=== PATIENT | female | born 1970 | race Caucasian/White ===

== ENCOUNTER 2022-12-11 07:34 | Outpatient (OUT) | payer OTHER, SELFPAY ==
--- NOTE | 2022-12-11 07:39 | CT_ITS ---
[address] [address] Patient Name: LEXI LEWIS MRN: [id number] date: 1970 Sex: F Assigned Patient Location: CT Current Patient Location: CT Accession/Order Number: [id number] Exam Date: 12/11/2022 07:55 Report Date: 12/11/2022 09:05 At the request of: RO OSCAR Procedure: CT angio chest EXAMINATION: CT angio chest HISTORY: Atypical Chest Pain R07.89, Dyspnea On Exertion R06.09 , elevated d-dimer COMPARISON: No relevant comparison available. TECHNIQUE: Multi-planar CT images were created with IV contrast. Axial, Coronal, and Sagittal images. Dose reduction techniques were achieved by using automated exposure control and/or adjustment of mA and/or kV according to patient size and/or use of iterative reconstruction technique. 3-D reconstruction was performed on a separate workstation. FINDINGS: VASCULATURE: No pulmonary embolism or abnormal opacity. LUNGS: No visible pulmonary disease. PLEURA: No mass, effusion, or pneumothorax. TAVO: No mass or adenopathy. MEDIASTINUM: No mass or adenopathy. CARDIAC: No enlargement, pericardial effusion, or pericardial thickening. AORTA: No aneurysm or dissection. CHEST WALL: No mass or axillary adenopathy. BONES: No bone lesion or fracture. LIMITED ABDOMEN: No suspicious findings. Limited images of the upper abdomen. OTHER: Negative. IMPRESSION: 1. No pulmonary embolism. 2. No pulmonary infiltrates, pleural effusion, or pneumothorax. 3. No acute or suspicious findings to account for patient's symptoms. Electronically authenticated by: KHUSHBU CID Date: 12/11/2022 09:05
== END 2022-12-11 07:35 ==
LOC: CT 07:35
PROVIDERS: Visit Provider Nurse Practitioner
DX: R07.89 Other chest pain (principal); R06.09 Other forms of dyspnea; R79.89 Other specified abnormal findings of blood chemistry
CPT/HCPCS: 71275; Q9967

== ENCOUNTER 2022-12-21 08:32 | Outpatient (OUT) | payer OTHER, SELFPAY ==
--- NOTE | 2022-12-21 08:15 | NM_ITS ---
Patient: LEXI LEWIS Exam Date: 12/21/2022 : 1970 Gender:F Ordering : RO OSCAR Admission #: [id number] Family : Order #: [id number] CLICK HERE TO VIEW EXAM RADIOLOGY REPORT PROCEDURE: NM MARIBEL PERF SPECT REST STR COMPARISON: None. INDICATIONS: Chest pain TECHNIQUE: Exam Description: Stress/Rest one day protocol gated SPECT Rest Imagin.9 mCi Tc-99m Cardiolite IV on 12/21/2022 Stress Imaging 30.5 mCi Tc-99m Cardiolite IV on 12/21/2022 Exercise Protocol: 0.4 mg Lexiscan given IV Heart Rate (bpm): Rest: 78 Max: 117 PMHR: 70 Blood Pressure: Rest: 122/80 Max: 156/78 Symptoms: Rest and peak stress ECG findings were pending and the exercise portion of the study was pending per attending physician Dr. Ayala . For more details please see separate cardiac stress test report. FINDINGS: QUALITY OF STUDY: Good. PERFUSION DEFECT: LOCATION: Mid-anterior. Mid-inferolateral. Mid-anterolateral. Apical lateral. SIZE: Medium (3-4 segments). SEVERITY: Moderate. TYPE: Reversible. WALL MOTION: Normal. LV SIZE: Normal. 94 mL. TID / TCD: None; 0.7 LVEF: Normal. Calculated EF 70%. SUMMARY: Myocardial perfusion imaging study has ABNORMAL findings. CONCLUSION: 1. Area of suspected reversible ischemia lateral wall, primarily circumflex distribution 2. Pending exercise test Dictated by: David Santa MD on 12/21/2022 at 14:20 Approved by: David Santa MD on 12/21/2022 at 14:30
[2022-12-21] MEDS: REGADENOSON 0.4 MG/5 ML SYRINGE IV (10:27)
--- NOTE | 2022-12-21 11:29 | CA_ITS ---
Patient: LEXI LEWIS Exam Date: 12/21/2022 : 1970 Gender:F Ordering : RO OSCAR Admission #: [id number] Family : Order #: [id number] CLICK HERE TO VIEW EXAM ECHOCARDIOGRAM REPORT PROCEDURE: CA ECHO DOPPLER COMPLETE INDICATIONS: HOFFMAN, CP, HTN COMPARISON: None. DESCRIPTION: COMPLETE ECHOCARDIOGRAM Real-time transthoracic echocardiography with 2D, M-mode, spectral and color flow Doppler performed. QUALITY: Technical quality was good. LEFT VENTRICLE: Normal chamber size. Mild concentric left ventricular hypertrophy. LV EF: Global left ventricular systolic function is normal. Calculated left ventricular ejection fraction is 59% DIASTOLIC: Normal diastolic function. ATRIAL SEPTUM: Inadequately seen. LEFT ATRIUM: Normal chamber size. RIGHT ATRIUM: Normal chamber size. RIGHT VENTRICLE: Normal chamber size. Normal right ventricular systolic function. TRICUSPID VALVE: Normal mobility and thickness. No stenosis with trivial regurgitation. No evidence of pulmonary hypertension. RVSP 14mmHg MITRAL VALVE: Normal mobility and thickness. No evidence of mitral valve stenosis. There is no mitral annular calcification. Mild mitral regurgitation. AORTIC VALVE: Normal trileaflet appearance. Thickened aortic valve. Normal leaflet mobility. No evidence of aortic valve stenosis. Trivial aortic regurgitation. AORTIC ROOT: Normal diameter and appearance. PULMONIC VALVE: Normal thickness and mobility. No stenosis. Trivial regurgitation. PERICARDIUM: Anterior free space; trivial effusion versus fat pad. IVC: Collapses with inspirations. Normal size. CONCLUSION: Global left ventricular systolic function is normal; visually estimated ejection fraction is 55 to 60%. Mildly increased left ventricular wall thickness. Right ventricle is normal in size and systolic function. Mild mitral regurgitation. Anterior free space; trivial effusion versus fat pad. Adult Echocardiography Procedure Report Left Ventricle LVEDD (3.7 - 5.6 cm): 4.79 cm LVESD (2.2 - 4.0 cm): 3.30 cm LVIVS thickness (0.6 - 1.2 cm): 1.12 cm LVPW thickness (0.5 - 1.0 cm): 1.10 cm e': 0.09 m/s E - e': 9.56 LVOT Max Gradient: 4.32 mm[Hg], 3.70 mm[Hg] LVOT Area (cm2): 1.00 m/s Peak Velocity (LVOT): 1.04 m/s, 0.96 m/s Mean Velocity (LVOT): 0.70 m/s LVOT Diameter 2.14 cm Left Ventricular Ejection Fraction: 59.09 % Left Atrium LA Volume Index (2D A2C): 30.27 ml/m2 Left Atrium Systolic Dimension: 3.58 cm Mitral Valve MV E to A Ratio: 1.12 Mitral Valve A-Wave Peak Velocity: 0.77 m/s Mitral Valve E-Wave Peak Velocity: 0.86 m/s Right Ventricle RV Internal Diastolic Dimension: 3.50 cm Aorta AO Root Diam: 3.42 cm Ascending Ao Diam: 3.28 cm Aortic Valve AoV Area (Peak Leo): 3.10 cm2, 3.32 cm2, 2.89 cm2 AoV Area (VTI): 3.20 cm2, 3.46 cm2, 2.94 cm2 Deceleration Camp: 2.61 m/s2 Pressure Half-Time: 440.40 ms Peak Velocity(Antegrade Flow): 1.12 m/s, 1.19 m/s Peak Gradient(Antegrade Flow): 5.02 mm[Hg], 5.69 mm[Hg] Mean Velocity(Antegrade Flow): 0.73 m/s, 0.72 m/s Mean Gradient(Antegrade Flow): 2.53 mm[Hg], 2.46 mm[Hg] Velocity Time Integral: 24.89 cm, 23.77 cm Tricuspid Valve Peak Velocity (Regurgitant Flow): 1.98 m/s, 1.69 m/s Pulmonic Valve Mean Gradient: 1.41 mm[Hg], 1.27 mm[Hg] Mean Velocity: 0.56 m/s, 0.53 m/s Peak Velocity: 0.80 m/s Peak Gradient: 2.62 mm[Hg], 2.44 mm[Hg] Right Atrium Right Atrium Systolic Pressure: 32.69 ml, 32.69 ml Dictated by: Sara Mcclendon M.D. on 12/23/2022 at 16:08 Approved by: Sara Mcclendon M.D. on 12/23/2022 at 16:11
--- NOTE | 2022-12-22 15:05 | PCN_ITS ---
CARDIAC STRESS TEST Requesting Physician:? TRAY Snider-Nikko Procedure Date:? REASON FOR TEST:? Chest pain. Patient presented for Lexiscan stress test. At baseline the heart rate was noted to be 78 beats per minute with a blood pressure 153/78 mm/Hg.? With Lexiscan infusion, the patient was noted to have peak heart rate of 117 with a blood pressure 134/72 mm/Hg.? No symptoms were reported during the test.? No arrhythmias were seen during the test.? The study was initially started as a stress test which was switched Lexiscan due to back pain that was reported at 3 minutes.? At baseline, the EKG showed sinus rhythm with normal intervals.? With Stage 1, the heart rate improved to 112 beats per minute and in Stage 3, the heart rate was 100 beats per minute with no evidence of ischemia.? At Stage 3, it was changed to the Lexiscan.? With infusion of Lexiscan, no ischemic changes were noted.? No arrhythmias were seen.? INTERPRETATION: 1.? No evidence of ischemia noted on EKG portion of stress test. 2.? Radiological report to be dictated separately.? [facility]
== END 2022-12-21 08:33 ==
LOC: NM 08:32
PROVIDERS: Visit Provider Nurse Practitioner
DX: I10 Essential (primary) hypertension (principal); R07.89 Other chest pain; R06.09 Other forms of dyspnea; R79.89 Other specified abnormal findings of blood chemistry
CPT/HCPCS: 78452; 93017; 93306; A9500; J2785

== ENCOUNTER 2023-01-21 12:26 | Outpatient (OUT) | payer OTHER, SELFPAY ==
[2023-01-21 12:43] LABS: Basophils Percent Auto 0.5 % (0.2-2.0); Hematocrit 44.5 % (36.0-48.0); Hemoglobin 15.1 g/dL (12.0-16.0); Immature Granulocytes Abs Auto 0.02 10^3/uL (0.00-0.03); Immature Granulocytes Pct Auto 0.3 % (0.0-0.5); Lymphocytes Absolute Auto 2.4 10^3/uL (1.2-3.8); Lymphocytes Percent Auto 31.6 % (20.5-60.0); Mean Corpuscular HGB Conc 33.9 g/dL (29.9-35.2); Mean Corpuscular Hemoglobin 29.8 pg (26.7-34.0); Mean Corpuscular Volume 87.8 fL (81.0-99.0); Mean Platelet Volume 9.9 fL (9.5-13.5); Monocytes Absolute Auto 0.4 10^3/uL (0.3-0.8); Monocytes Percent Auto 5.6 % (1.7-12.0); Neutrophils Absolute Auto 4.7 10^3/uL (1.4-6.5); Platelet Count 237 10^3/uL (150-450); Red Blood Count 5.07 10^6/uL (4.20-5.40); Red Cell Distribution Width 13.4 % (11.0-15.0); White Blood Count 7.7 10^3/uL (4.0-11.0)
[2023-01-21 12:57] LABS: Anion Gap 13.1; BUN Creatinine Ratio 11.1; Carbon Dioxide 26.2 mmol/L (21.0-32.0); Chloride 105 mmol/L (98-107); Estimated GFR (African America >60 (>=60); Estimated GFR (Non-African Ame 53 (>=60); Glucose 123 mg/dL (74-106); Potassium 4.3 mmol/L (3.5-5.1); Sodium 140 mmol/L (136-145)
== END 2023-01-21 12:27 | disposition home or self-care (01) ==
LOC: LAB 12:27
PROVIDERS: Visit Provider Nurse Practitioner
DX: I20.0 Unstable angina (principal); R06.09 Other forms of dyspnea
CPT/HCPCS: 36415; 80048; 85025

== ENCOUNTER 2023-04-07 08:54 | Outpatient (OUT) | payer OTHER, SELFPAY ==
[2023-04-07 09:52] LABS: Alanine Aminotransferase 44 U/L (14-59); Albumin Level 3.5 g/dL (3.4-5.0); Alkaline Phosphatase 163 U/L (46-116); Aspartate Amino Transferase 20 U/L (15-37); Bilirubin Direct 0.1 mg/dL (0.0-0.2); Bilirubin Total 0.2 mg/dL (0.2-1.0); Chol HDL Ratio 4.1; Cholesterol 214 mg/dL (<=200); Globulin 3.6 g/dL; HDL Cholesterol 52 mg/dL (40-60); Total Protein 7.1 g/dL (6.4-8.2); Triglycerides 148 mg/dL (<=150); VLDL CHOLESTEROL 29.6 mg/dL
== END 2023-04-07 08:55 | disposition home or self-care (01) ==
PROVIDERS: Visit Provider Nurse Practitioner
DX: E78.2 Mixed hyperlipidemia (principal)
CPT/HCPCS: 36415; 80061; 80076

== ENCOUNTER 2023-08-26 08:00 | Outpatient (OUT) | payer OTHER, SELFPAY ==
--- NOTE | 2023-08-26 08:49 | P.CN_ITS ---
Consult Note: HPI Data of Consult Patient: new to practice Requesting Physician: Stephanie Mike NP Primary Care Provider: Non-Staff Physician, MD Consult Narrative Reason for consult: establish chronic low back and right hip Narrative: Lizbeth Garcia a pleasant 53 year old female presents for evaluation of chronic pain. Patient has a hx of cervical RFAs with Dr Thornton and tailbone RFAs with Dr Caballero. Hx of cervical fusion at C4-7 with plate at 6-7. Lumbar spine surgery with lumbosacral fusion per pt L5-Sacral. Patient reporting pain today 8/10 throbbing stab pain in right low back and hip. Patient has a hx of chronic neck pain which is also increasing to 10/10 at times. Pain increased with standing/walking, housework, bending, stairs, activity, pain decreased with sitting and lying. Patient finds mild benefit from ibuprofen, celebrex. Patient failed PT in the past, active in HEP >6 weeks without benefit. Patient denies numbness tingling weakness of legs. Denies loss of bowel/bladder. cc:: CC: Stephanie Mike NP Review of Systems ROS Status of ROS 10 or more systems reviewed and unremark able except as noted in history and below Meds Home Medications and Allergies Home Medications Medication Instructions Recorded Confirmed Type B-complex with vitamin C 1 tab PO DAILY 08/26/23 08/26/23 History acetaminophen 500 mg tablet 1,500 mg PO DAILY PRN pain 08/26/23 08/26/23 History (Tylenol Extra Strength) amlodipine 5 mg tablet 5 mg PO DAILY 08/26/23 08/26/23 History aspirin 81 mg capsule 81 mg PO DAILY 08/26/23 08/26/23 History atorvastatin 80 mg tablet 80 mg PO DAILY 08/26/23 08/26/23 History celecoxib 400 mg capsule (Celebrex) 400 mg PO BID 08/26/23 08/26/23 History cholecalciferol (vitamin D3) 50 50 mcg PO DAILY 08/26/23 08/26/23 History mcg (2,000 unit) capsule clonazepam 0.5 mg tablet 0.5 mg PO BID 08/26/23 08/26/23 History cyclobenzaprine 10 mg tablet 10 mg PO BID 08/26/23 08/26/23 History desvenlafaxine succinate 100 mg 100 mg PO DAILY 08/26/23 08/26/23 History tablet,extended release 24 hr (Pristiq) ezetimibe 10 mg tablet 10 mg PO DAILY 08/26/23 08/26/23 History lamotrigine 300 mg tablet,extended 300 mg PO DAILY 08/26/23 08/26/23 History release 24 hr magnesium glycinate PO 08/26/23 History metoprolol succinate 25 mg 25 mg PO DAILY 08/26/23 08/26/23 History tablet,extended release 24 hr pantoprazole 40 mg tablet,delayed 40 mg PO DAILY 08/26/23 08/26/23 History release quetiapine 200 mg tablet 200 mg PO DAILY 08/26/23 08/26/23 History Allergies Allergy/AdvReac Type Severity Reaction Status Date / Time ibuprofen AdvReac Mild Verified 08/26/23 08:26 tramadol AdvReac Mild Verified 08/26/23 08:26 Exam Constitutional Documenting provider has reviewed patient's vital signs: yes Common normals: no apparent distress, oriented x3, healthy appearing, alert and well nourished General appearance: cooperative HENMT Common normals: normocephalic, hearing grossly normal bilaterally and moist oral mucous membranes Head and scalp: normocephalic Eye Common normals: PERRL Pupil: PERRL Neck & C-Spine Common normals: full ROM General: normal visual inspection Cervical spine: cervical ROM abnormal and pain with cervical ROM Other: axial pain without radiculopathy Chest Common normals: inspection of chest normal Respiratory Common normals: normal respiratory effort, no retractions and no use of accessory muscles Back & Pelvis Lumbar spine/lower back: ROM limited and pain with ROM Sacroiliac joints: SI joint(s) abnormal Other: right SIJ pain over PSIS, positive fabers fadirs gaenslens and thigh thrust. negative for radiculopathy. sensation intact BLE, strength 5/5 in BLE Extremity Common normals: normal to inspection and full ROM Neuro Common normals: oriented x3, CN's II-XII intact bilaterally, moves all extremities, no focal motor deficits, no sensory deficits noted, deep tendon reflexes 2+ bilaterally and gait normal Sensorium/orientation: alert Motor exam: strength 5/5 throughout and no movement abnormalities noted Psych Common normals: mental status grossly normal, thought process normal, cooperative, affect normal, speech normal and activity/motor behavior normal Speech: normal speech Thought process: normal thought process Results Additional Findings Additional findings: I have checked an [place] report on this patient today and there are no aberrancies noted in the prescribing history.?? A drug screen was completed and reviewed within the last year, and if there has not been a drug screen completed we ordered one today to monitor higher risk, state monitored pain medication use. As part of providing excellent, safe, comprehensive care, the following was completed at our patient's visit: 1. A medication reconciliation and review to ensure accurate knowledge of current/active medications, including asking our patients to inform us about any [id number] medications or herbal remedies/nutritional supplements/alternative remedies. 2. A review to specifically ensure our patients have had annual screening for: elevated body mass index (BMI), tobacco use, screening for depression, and screening for unhealthy alcohol use. When screening is concerning, patients are provided with education and the specific recommendation to discuss the concerning health issue and treatment options with their primary care provider. Assessment and Plan Assessment and Plan (1) Failed back syndrome: (2) Cervical spondylosis: (3) Chronic pain syndrome: (4) Encounter for medication monitoring: (5) Chronic prescription benzodiazepine use: (6) Sacroiliitis: Plan [employer] reviewed and signed UDS today, NNCP hx of chronic benzodiazepine use update xray imaging of cervical spine, lumbar spine, and SIJ plan for right SIJ injection under fluoroscopy. risks vs benefits discussed continue current medications as tolerated continue HEP as tolerated f/u 2 weeks after injection +
== END 2023-08-26 08:01 | disposition home or self-care (01) ==
LOC: PM 08:01
PROVIDERS: Visit Provider Nurse Practitioner
DX: M96.1 Postlaminectomy syndrome, not elsewhere classified (principal); M47.812 Spondylosis without myelopathy or radiculopathy, cervical region; G89.4 Chronic pain syndrome; Z51.81 Encounter for therapeutic drug level monitoring; M46.1 Sacroiliitis, not elsewhere classified; Z79.899 Other long term (current) drug therapy
CPT/HCPCS: G0463

== ENCOUNTER 2023-08-26 09:15 | Outpatient (OUT) | payer OTHER, SELFPAY ==
--- NOTE | 2023-08-26 09:20 | XR_ITS ---
The [address] [address] Patient Name: LEXI LEWIS MRN: [id number] date: 1970 Sex: F Assigned Patient Location: [facility] Current Patient Location: [facility] Accession/Order Number: [id number] Exam Date: 08/26/2023 09:25 Report Date: 08/27/2023 14:56 At the request of: KANNAN FRIEDMAN Procedure: XR cervical spine 5V EXAMINATION: XR cervical spine 5V HISTORY: cervical spondylosis ; chronic neck pain radiating into right arm COMPARISON: XR C-spine 05/07/2021 FINDINGS: BONES: Straightening of normal lordotic curvature. Mechanical fusion C5-6 via anterior plate and screws; no hardware fracture loosening. No bone fracture or spondylolisthesis. Multilevel mild degenerative facet arthropathy. DISC SPACES: Moderate-marked narrowing C5-C6; unchanged. PARASPINOUS: Negative. No paraspinous abnormality is seen. OTHER: Negative. XR/XR cervical spine 5V IMPRESSION: 1. No appreciable acute abnormality. 2. Stable surgical changes and moderate- marked degenerative disc disease C5-6. Electronically authenticated by: KHUSHBU CID Date: 08/27/2023 14:56
--- NOTE | 2023-08-26 09:21 | XR_ITS ---
The [address] [address] Patient Name: LEXI LEWIS MRN: [id number] date: 1970 Sex: F Assigned Patient Location: [facility] Current Patient Location: [facility] Accession/Order Number: [id number] Exam Date: 08/26/2023 09:25 Report Date: 08/27/2023 14:59 At the request of: KANNAN FRIEDMAN Procedure: XR lumbar spine 6V w bending EXAMINATION: XR lumbar spine 6V w bending HISTORY: lumbar spondylosis ; chronic lumbar pain radiating into right leg COMPARISON: XR L-spine 05/16/2021 FINDINGS: BONES: Minimal anterior listhesis of L5 on S1 with prior posterior mechanical stabilization; no hardware fracture loosening. No change in alignment during flexion and extension. Moderate degenerative facet arthropathy L3-4 through L5-S1. DISC SPACES: Mild narrowing L4-5. Intervertebral disc spacer L5-S1 with mild narrowing. PARASPINOUS: Negative. No paraspinous abnormality is seen. OTHER: Negative. XR/XR lumbar spine 6V w bending IMPRESSION: 1. No appreciable acute abnormality. 2. Stable surgical changes and degenerative changes. Electronically authenticated by: KHUSHBU CID Date: 08/27/2023 14:59
--- NOTE | 2023-08-26 09:22 | XR_ITS ---
The [address] [address] Patient Name: LEXI LEWIS MRN: [id number] date: 1970 Sex: F Assigned Patient Location: [facility] Current Patient Location: [facility] Accession/Order Number: [id number] Exam Date: 08/26/2023 09:25 Report Date: 08/26/2023 18:27 At the request of: KANNAN FRIEDMAN Procedure: XR sacroiliac joint JENNIFER EXAM: XR sacroiliac joint JENNIFER HISTORY: sacroiliac joint pain COMPARISON: None. TECHNIQUE: AP and oblique views of the sacroiliac joints were obtained. FINDINGS/IMPRESSION: Normal bony alignment and joint spaces are preserved without evidence of acute fracture or subluxation. No significant degenerative changes or erosive changes are seen. Postoperative changes are seen at L5-S1. Electronically authenticated by: DEEJAY DO Date: 08/26/2023 18:27
== END 2023-08-26 09:16 | disposition home or self-care (01) ==
LOC: RAD 09:16
PROVIDERS: Visit Provider Nurse Practitioner
DX: M47.812 Spondylosis without myelopathy or radiculopathy, cervical region (principal); M47.816 Spondylosis without myelopathy or radiculopathy, lumbar region; M53.3 Sacrococcygeal disorders, not elsewhere classified; M96.1 Postlaminectomy syndrome, not elsewhere classified; G89.4 Chronic pain syndrome; Z51.81 Encounter for therapeutic drug level monitoring; M46.1 Sacroiliitis, not elsewhere classified; Z79.899 Other long term (current) drug therapy
CPT/HCPCS: 72050; 72114; 72202; G0463

== ENCOUNTER 2023-09-20 09:57 | Day surgery (SDC) | payer OTHER, SELFPAY ==
--- OUTSIDE RECORDS SUMMARY | 2023-09-20 10:02 | XMS_ITS | CCD ---
Author Name Unknown Address [address] [place] [address] Organization [facility] Care Team Providers Care Pipe Recovery Specialist Name Role Phone ZAIRE, CRISTOBAL F Primary Care Unavailable FELICIA, FEMI H. Attending Unavailable FELICIA, FEMI H. Referring Unavailable FELICIA, FEMI H. Referring Unavailable FELICIA, FEMI H. Admitting Unavailable ZAIRE, CRISTOBAL F Primary Care Unavailable FELICIA, FEMI H. Attending Unavailable FELICIA, FEMI H. Admitting Unavailable ZAIRE, CRISTOBAL F Primary Care Unavailable FELICIA, FEMI H. Attending Unavailable ZAIRE, CRISTOBAL F Primary Care Unavailable FELICIA, FEMI H. Referring Unavailable ZAIRE, CRISTOBAL F Primary Care Unavailable FELICIA, FEMI H. Referring Unavailable [place], Cristobal F Unavailable [phone] Edwige DO, Kimberley Leora Primary Care Provider KannanLexif Unavailable Letty Olson Unavailable Edwige DO, Kimberley Leora Primary Care Provider [phone] EDWIGE, KIMBERLEY LEORA Referring Unavailable EDWIGE, KIMBERLEY LEORA Primary Care Unavailable FELIXRICKYGAYLE Attending Unavailable EDWIGE, KIMBERLEY LEORA Primary Care Unavailable GAYLE WASHINGTON Referring Unavailable DEONTEC, DR LOPEZ Consulting Unavailable MISC, DR LOPEZ Primary Care Unavailable DAYAMI ., DR RACHEL Layne Attending Unavailable DAYAMI ., DR RACHEL Layne Admitting Unavailable MONROE .BEN Consulting Unavailable MISC, DR LOPEZ Consulting Unavailable DEONETC, DR LOPEZ Primary Care Unavailable DAYAMI ., DR RACHEL Layne Attending Unavailable DAYAMI ., DR RACHEL Layne Admitting Unavailable MONROE ., BEN Consulting Unavailable MONROE ., BEN Consulting Unavailable MISC, DR LOPEZ Primary Care Unavailable STOCK ., DR RACHEL Layne Attending Unavailable STOCK ., DR RACHEL Layne Admitting Unavailable MISC, DR LOPEZ Consulting Unavailable MISC, DR LOPEZ Primary Care Unavailable STOCK ., DR RACHEL Layne Attending Unavailable STOCK ., DR RACHEL Layne Admitting Unavailable MONROE ., BEN Consulting Unavailable STOCK ., DR RACHEL Layne Consulting Unavailable MISC, DR LOPEZ Primary Care Unavailable STOCK ., DR RACHEL Layne Attending Unavailable STOCK ., DR RACHEL Layne Admitting Unavailable STOCK ., DR RACHEL Layne Consulting Unavailable MISC, DR LOPEZ Primary Care Unavailable STOCK ., DR RACHEL Layne Attending Unavailable STOCK ., DR RACHEL Layne Admitting Unavailable KHUSHBU RODRÍGUEZ Consulting Unavailable MONROE ., BEN Consulting Unavailable MISC, DR LOPEZ Primary Care Unavailable STOCK ., DR RACHEL Layne Attending Unavailable STOCK ., DR RACHEL Layne Admitting Unavailable CRUMP, DR CHIVO Courtney Consulting Unavailabl e TIMMIS, DR MONTGOMERY Consulting Unavailable MISC, DR LOPEZ Primary Care Unavailable TIMMIS, DR MONTGOMERY Attending Unavailable TIMMIS, DR MONTGOMERY Admitting Unavailable PINKARUTRO RICHARDSON Consulting Unavailable JOSIAH WILKS Consulting Unavailable TIMMIS, DR MONTGOMERY Consulting Unavailable MISC, DR LOPEZ Primary Care Unavailable TIMMIS, DR MONTGOMERY Attending Unavailable TIMMIS, DR MONTGOMERY Admitting Unavailable RAHUL DONALD Consulting Unavailable VANDANA ESPANA Consulting Unavailable STOCK ., DR RACHEL Layne Consulting Unavailable MISC, DR LOPEZ Primary Care Unavailable STOCK ., DR RACHEL Layne Attending Unavailable STOCK ., DR RACHEL Layne Admitting Unavailable MISC, DR LOPEZ Consulting Unavailable MISC, DR LOPEZ Primary Care Unavailable STOCK ., DR RACHEL Layne Attending Unavailable STOCK ., DR RACHEL Layne Admitting Unavailable STOCK ., DR RACHEL Layne Consulting Unavailable JAVIER ROLDAN Consulting Unavailable Kimberley Gibbons DO Primary Care Provider KIMBERLEY GIBBONS Attending Unavailable ABUGHARBYEH, AYA Referring Unavailable KIMBERLEY GIBBONS Attending Unavailable CELESTINA, ELODIA Attending Unavailable RICKY, SOLITARIO Attending Unavailable RICKY, SOLITARIO Attending Unavailable ALGHOTHANI, MOHAMAD Referring Unavailable ALGHOTHANI, MOHAMAD Admitting Unavailable ALGHOTHANI, MOHAMAD Attending Unavailable CELESTINA, ELODIA Referring Unavailable CELESTINA, ELODIA Attending Unavailable Unavailable Primary Care Provider UnavailNICOLE Tovar Referring Unavailable NICOLE TELLES Referring Unavailable Allergies Allergy Classification Reported Allergen(s) Allergy Type Date of Onset Reaction(s) Facility (9 sources) Ibuprofen; 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: [IBUPROFEN] Drug Allergy 0 Unknown, Diarrhea [facility] (20 sources) traMADol; 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: [TRAMADOL] Drug Allergy 9 Unknown, Nausea Only [facility] (1 source) Ibuprofen Drug Allergy [facility] (1 source) traMADol Drug Allergy 2 [facility] Medications Current Medications Medication Drug Class(es) Dates Sig (Normalized) Sig (Original) acetaminophen 325 mg / oxyCODONE hydrochloride 5 mg oral tablet (12 sources) Opioid Agonist take 1 tablet by mouth every six hours Percocet 5-325 MG 1 tablet as needed Orally every 6 hrs Active Aspir-81 (12 sources) Aspir-81 Active aspirin 81 mg delayed release oral tablet (7 sources) Platelet Aggregation Inhibitor, Nonsteroidal Anti-inflammatory Drug Start: 01-07-2021 take 1 tablet by mouth once daily in the morning aspirin 81 MG EC tablet Take 1 tablet by mouth every morning 0 01/07/2021 Active Comment on above: Take 81 mg by mouth once daily. atorvastatin 80 mg oral tablet (1 source) HMG-CoA Reductase Inhibitor Start: 08-26-2023 atorvastatin (LIPITOR) 80 MG tablet b complex vitamins capsule (1 source) take 1 capsule by mouth once daily b complex vitamins capsule Take 1 capsule by mouth daily 0 Active celecoxib 400 mg oral capsule (7 sources) Nonsteroidal Anti-inflammatory Drug Start: 08-22-2023 celecoxib (CELEBREX) 400 MG capsule Start: 10-05-2022 End: 04-07-2023 take 1 capsule by mouth twice daily celecoxib (CELEBREX) 200 mg capsule Indications: Secondary osteoarthritis of multiple sites Take 1 capsule by mouth two times a day. 180 capsule 0 04/07/2023 Active Start: 12-12-2021 End: 05-18-2022 take 1 capsule by mouth twice daily celecoxib (CELEBREX) 200 mg capsule Indications: Secondary osteoarthritis of multiple sites Take 1 capsule by mouth twice daily. 180 capsule 3 05/18/2022 Active Comment on above: Take 1 capsule by mo ut twice daily. Take 1 capsule by mo ut two times a day. clonazePAM 0.5 mg oral tablet (19 sources) Benzodiazepine Start: 020 take 1 tablet by mouth twice daily clonazePAM (KLONOPIN) 0.5 MG tablet TK 1 T PO BID 0 03/12/2020 Active Comment on above: Take 0.5 mg by mouth twice daily. 24 hr desvenlafaxine succinate 100 mg extended release oral tablet (16 sources) Serotonin and Norepinephrine Reuptake Inhibitor Start: 023 desvenlafaxine succinate (PRISTIQ) 100 MG TB24 extended release tablet take 100 mg by mouth once daily DESVENLAFAXINE SUCCINATE ORAL Take 100 mg by mouth. Once daily. 0 Active [facility] twenty-four hours Pristiq 100 MG 1 tablet Orally Once a da y Active Comment on above: Take 100 mg by mouth . Once daily. fluticasone furoate 0.0275 mg/actuat metered dose nasal spray (20 sources) Corticosteroid End: 12-12-2021 fluticasone (VERAMYST) 27.5 MCG/SPRAY nasal spray by Each Nostril route daily 0 Active fluticasone prop ionate (FLONASE NASAL) Use in the nose. OTC, 2 times daily. 0 Active Flonase Active Comment on above: Use in the nose. OTC , 2 times daily. by Each Nostril rout e daily 24 hr metoprolol succinate 25 mg extended release oral tablet (1 source) beta-Adrenergic Dc Start: 12-01-2022 End: 12-01-2023 metoprolol succinate (TOPROL XL) 25 MG extended release tablet Take 1 tablet by mouth 0 12/01/2022 12/01/2023 Active [place]-3 Fatty Acids (FISH OIL) 1200 MG CAPS (1 source) [place]-3 Fatty Ac ids (FISH OIL) 1200 MG CAPS Take by mouth daily 0 Active pregabalin 50 mg oral capsule (12 sources) take 1 capsule by mouth every twelve hours Lyrica 50 MG 1 capsule Orally Twice a day Active Senna Leaves (1 source) Start: 05-09-2020 SENNA CO as needed 0 05/09/2020 Active Completed/Discontinued Medications Medication Drug Class(es) Dates Sig (Normalized) Sig (Original) amLODIPine 10 mg oral tablet (19 sources) Dihydropyridine Calcium Channel Dc Start: 05-09-2021 take 1 tablet by mouth once daily amLODIPine (NORVASC) 10 mg tablet Take 10 mg by mouth once daily. 0 05/09/2021 Active Start: 05-22-2020 take 1 tablet by bautista th once daily amLODIPine (NORVASC) 5 MG tablet Take 1 tablet by mouth nightly 0 05/22/2020 Active Comment on above: Take 10 mg by mouth once daily. cholecalciferol 0.05 mg oral capsule (4 sources) Vitamin D Cholecalciferol, Vitamin D3, (VITAMIN D-3) 50 mcg (2,000 unit) cap Take by mouth. 0 Active Comment on above: Take by mouth. cyclobenzaprine hydrochloride 5 mg oral tablet (19 sources) Muscle Relaxant Start: 10-06-19 23 End: 04-07-20 23 take 1-2 tablets by mouth once daily cyclobenzaprine (FLEXERIL) 5 mg tablet Indications: Cervicalgia , Chronic bilateral low back pain with bilateral sciatica Take 1-2tab by mouth per day. May cause drowsiness 60 tablet 3 04/07/2023 Active Start: 10-04-2022 cyclobenzaprin e (FLEXERIL) 10 MG tablet Start: 06-04-2021 take 1-2 tablets by mouth once daily cyclobenzaprine (FLEXERIL) 5 mg tablet Indications: Cervicalgia , Chronic bilateral low back pain with bilateral sciatica Take 1-2tab by mouth per day. May cause drowsiness 60 tablet 3 06/04/2021 Active take 1 tablet by bautista th every eight hours Cyclobenzaprine HCl 10 MG 1 tablet Orally tid Active Comment on above: Take 1-2tab by mouth per day. May cause drowsiness ergocalciferol 1.25 mg oral capsule (1 source) Provitamin D2 Compound Start: 06-06-20 21 End: 12-13-19 22 ergocalciferol 50,000 unit capsule (VITAMIN D2, DRISDOL) Indications: Vitamin D deficiency (take by mouth with food twice a week, ONE CAPSULE ON WEDNESDAY AND ONE ON WEDNESDAY) FOR A TOTAL OF 8 WEEKS. 16 capsule 0 06/06/2021 12/12/2021 Discontinued (Course of therapy completed) Comment on above: (take by mouth with food twice a week, ONE CAPSULE ON WEDNESDAY AND ONE ON WEDNESDAY) FOR A TOTAL OF 8 WEEKS. estradiol 0.5 mg oral tablet (6 sources) Estrogen Start: 06-03-20 21 take 1 tablet by mouth once daily Estradiol (ESTRACE) 0.5 mg tablet Take 0.5 mg by mouth once daily. 0 06/03/2021 Active Comment on above: Take 0.5 mg by mouth once daily. [id number] joey-ast 1,500-344-75-80 mg cap (4 sources) lqfso-uy-8-dha-e pa-joey spho-ast 1,808-130-35-80 mg cap Take by mouth. 0 Active Comment on above: Take by mouth. lamoTRIgine 100 mg oral tablet (20 sources) Mood Stabilizer, Anti-epileptic Agent Start: 12-03-19 lamoTRIgine (LAMICTAL) 100 mg tablet take 1.5 tablets by mouth once d aily lamoTRIgine (LAMICTAL) 200 MG tablet Take 1.5 tablets by mouth nightly 0 Active lamoTRIgine (IRIZARRY ICTAL) 200 mg tablet Take 300 mg by mouth once daily as needed. 0 Active take 1 tablet by bautista th every twenty-four hours LaMICtal 200 MG 1 tablet Orally Once a d ay Active Comment on above: Take 300 mg by mouth once daily as needed. loratadine 10 mg oral tablet (17 sources) Start: 01-07-2021 loratadine (CLARITIN) 10 mg tablet Loratadine Active 10 MG PO Daily January 07, 2021 7:15am 0 01/07/2021 Active take 1 capsule by mouth once carol ly loratadine (CLARITIN) 10 MG capsule Take 1 capsule by mouth daily 0 Active Comment on above: Loratadine Active 10 MG PO Daily January 07, 2021 7:15am meloxicam 15 mg oral tablet (13 sources) Nonsteroidal Anti-inflammatory Drug Start: 06-06-20 21 End: 12-13-19 22 take 1 tablet by mouth once daily meloxicam (MOBIC) 15 mg tablet Indications: Chronic bilateral low back pain with bilateral sciatica , Chronic pain of both knees , Chronic left shoulder pain , Chronic hip pain, bilateral , Secondary osteoarthritis of multiple sites Take 1 tablet by mouth once daily. 90 tablet 3 06/06/2021 12/12/2021 Discontinued Comment on above: Take 1 tablet by bautista th once daily. PNV Comb No.59/Iron/FA/DHA (-DHA ORAL) (4 sources) PNV Comb No.59/Iron/FA/DHA (-DHA ORAL) Take by mouth. 0 Active Comment on above: Take by mouth. QUEtiapine 400 mg oral tablet (19 sources) Atypical Antipsychotic Start: 05-06-20 take 1 tablet by mouth once daily at bedtime QUEtiapine (SEROQUEL) 400 mg tablet Take 400 mg by mouth daily at bedtime. 0 05/06/2021 Active take 2 tablets by mouth once carol ly QUEtiapine (SEROQUEL) 50 MG tablet Take 2 tablets by mouth nightly 0 Active take 1 tablet by bautista th every twenty-four hours SEROquel 300 MG 1 tablet at bedtime Oral ly Once a day Active Comment on above: Take 400 mg by mouth daily at bedtime. triamcinolone acetonide 40 mg/ml injectable suspension (2 sources) Corticosteroid Start: 10-14-2021 Kenalog-40 Oct, 40 mg Start: 10-14-2021 Kenalog -40 mg Oct, 40 mg vitamin b complex (VITAMINS B COMPLEX) capsule (4 sources) take 1 capsule by mouth once daily vitamin b complex (VITAMINS B COMPLEX) capsule Take 1 capsule by mouth once daily. 0 Active Comment on above: Take 1 capsule by mo uth once daily. Problems Active Problems Problem Classification Problem Date Documented Da te Episodic/Chronic Coronary atherosclerosis and other heart disease (2 sources) Unstable angina; 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: [Unstable angina] Onset: 01-13-2023 Chronic Deficiency and other anemia (1 source) Anemia in other chronic diseases classified elsewhere; 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: [Anemia of chronic disease] Onset: 12-12-2021 Chronic Diseases of mouth; excluding dental (6 sources) Unspecified lesions of oral mucosa; 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: [Other diseases of tongue] Onset: 10-13-2022 Episodic Disorders of lipid metabolism (2 sources) Mixed hyperlipidemia; 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: [Mixed hyperlipidemia] Onset: 12-01-2022 Chronic Esophageal disorders (5 sources) Gastro-esophageal reflux disease without esophagitis; 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: [GERD WITHOUT ESOPHAGITIS] Onset: 10-19-2022 Chronic Essential hypertension (2 sources) Essential (primary) hypertension; 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: [Essential (primary) hypertension] Onset: 01-13-2023 Chronic Nutritional deficiencies (8 sources) Vitamin D deficiency; 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: [Vitamin D deficiency, unspecified] Onset: 12-12-2021 Chronic Osteoarthritis (11 sources) Degenerative joint disease involving multiple joints; 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] Onset: 06-05-2021 Chronic Other aftercare (1 source) 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; 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] Onset: 10-19-2022 Episodic Other bone disease and musculoskeletal deformities (2 sources) Other specified disorders of bone density and structure, unspecified site; 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: [Other specified disorders of bone density and structure, unspecified site] Onset: 06-22-2023 Episodic Other connective tissue disease (5 sources) Other muscle spasm; 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: [OTHER MUSCLE SPASM] Onset: 04-16-2022 Episodic Other connective tissue disease (1 source) Arthrodesis status; 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: [ARTHRODESIS STATUS] Onset: 07-28-2022 Episodic Other gastrointestinal disorders (1 source) Flatulence, eructation and gas pain; 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: [Flatulence] 09-13-2023 Episodic Other gastrointestinal disorders (1 source) Flatulence; 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: [Flatulence] Onset: 09-13-2023 Episodic Other gastrointestinal disorders (1 source) Gas pain; 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: [Gas pain] Onset: 09-13-2023 Episodic Other gastrointestinal disorders (1 source) Eructation; 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: [Eructation] Onset: 09-13-2023 Episodic Other nervous system disorders (6 sources) Chronic pain syndrome; 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: [Chronic pain syndrome] Onset: 12-12-2021 Chronic Other nervous system disorders (12 sources) Chronic pain; 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: [Other chronic pain] Chronic Other nervous system disorders (10 sources) Other chronic pain; 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: [Chronic pain G89.29] Onset: 04-02-2021 Resolved: 10-14-2021 Chronic Other non-traumatic joint disorders (2 sources) Shoulder pain; 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: [Pain in joint, shoulder region] Episodic Other non-traumatic joint disorders (1 source) Chronic pain of right upper limb; 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: [Pain in right shoulder] Episodic Other non-traumatic joint disorders (1 source) Pain in elbow; 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: [Pain in left elbow] Episodic Other non-traumatic joint disorders (10 sources) Pain in right shoulder; 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: [Right anterior shoulder pain M25.511] Onset: 04-02-2021 Resolved: 10-14-2021 Episodic Other nutritional; endocrine; and metabolic disorders (1 source) Hyperuricemia; 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: [Hyperuricemia without signs of inflammatory arthritis and tophaceous disease] Episodic Other skin disorders (1 source) Epidermal thickening, unspecified; 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: [EPIDERMAL THICKENING UNSPECIFIED] Onset: 10-19-2022 Episodic Residual codes; unclassified (1 source) Acquired absence of other specified parts of digestive tract; 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: [ACQ ABSENCE OTH PART DIGESTV TRACT] Onset: 10-19-2022 Episodic Residual codes; unclassified (1 source) Acquired absence of both cervix and uterus; 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: [ACQUIRED ABSENCE BOTH CERVIX AND UTERUS] Onset: 10-19-2022 Episodic Spondylosis; intervertebral disc disorders; other back problems (20 sources) Degeneration of lumbar intervertebral disc; 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: [Other intervertebral disc degeneration, lumbar region] Onset: 04-02-2021 Resolved: 10-14-2021 Chronic Substance-related disorders (3 sources) Nicotine dependence, cigarettes, uncomplicated; 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: [Nicotine dependence, other tobacco product, uncomplicated] Onset: 06-18-2020 06-18-2020 Chronic Unclassified (1 source) LOW BACK PAIN, UNSPECIFIED; 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: [LOW BACK PAIN, UNSPECIFIED] Onset: 07-28-2022 Past or Other Problems Problem Classification Problem Date Documented Date Episodic/Chronic Cardiac dysrhythmias (1 source) Tachycardia; 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: [Tachycardia, unspecified] Onset: 04-16-2020 05-03-2020 Episodic Nonspecific chest pain (2 sources) Other chest pain; 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: [Other chest pain] Onset: 01-13-2023 Episodic Nutritional deficiencies (2 sources) Cobalamin deficiency; 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: [Deficiency of other specified B group vitamins] Onset: 12-12-2021 Episodic Other acquired deformities (1 source) Lumbar spondylolisthesis; 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: [Spondylolisthesis, lumbar region] Onset: 06-25-2020 06-25-2020 Episodic Other connective tissue disease (7 sources) Pain of bilateral hands; 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: [Pain in right hand] Onset: 06-05-2021 Episodic Other connective tissue disease (6 sources) Fibromyalgia; 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: [Fibromyalgia] Onset: 12-17-2021 12-17-2021 Episodic Other connective tissue disease (1 source) Fibromyalgia; 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: [Fibromyalgia] Onset: 12-01-2022 Episodic Other hematologic conditions (1 source) Elevated erythrocyte sedimentation rate; 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: [Elevated sed rate] Onset: 12-12-2021 Episodic Other lower respiratory disease (2 sources) Other forms of dyspnea; 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: [Other forms of dyspnea] Onset: 01-13-2023 Episodic Other lower respiratory disease (2 sources) Orthopnea; 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: [Orthopnea] Onset: 12-01-2022 Episodic Other non-traumatic joint disorders (7 sources) Pain in right knee; 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: [Pain in joint, lower leg] Onset: 06-05-2021 Episodic Other non-traumatic joint disorders (7 sources) Hip pain; 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: [Pain in right hip] Onset: 06-05-2021 Episodic Other non-traumatic joint disorders (6 sources) Chronic pain of left upper limb; 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: [Pain in left shoulder] Onset: 06-05-2021 06-05-2021 Episodic Other non-traumatic joint disorders (1 source) Pain in right hip Onset: 07-01-2021 Resolved: 07-01-2021 Episodic Other non-traumatic joint disorders (2 sources) Pain in unspecified joint; 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: [Pain in unspecified joint] Onset: 04-27-2023 Episodic Other nutritional; endocrine; and metabolic disorders (1 source) Hyperuricemia without signs of inflammatory arthritis and tophaceous disease; 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: [Hyperuricemia] Onset: 12-12-2021 Episodic Other screening for suspected conditions (not mental disorders or infectious disease) (12 sources) Elevated C-reactive protein; 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: [Elevated C-reactive protein (CRP)] Onset: 06-05-2021 Episodic Other skin disorders (5 sources) Soft tissue swelling; 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: [Localized swelling, mass and lump, unspecified] Onset: 06-06-2021 06-06-2021 Episodic Residual codes; unclassified (2 sources) Asymptomatic menopausal state; 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: [Asymptomatic menopausal state] Onset: 04-27-2023 Episodic Residual codes; unclassified (2 sources) Sleep disorder, unspecified; 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: [Sleep disorder, unspecified] Onset: 12-01-2022 Episodic Spondylosis; intervertebral disc disorders; other back problems (20 sources) Chronic low back pain; 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: [Lumbago with sciatica, left side] Onset: 06-18-2020 Resolved: 10-14-2021 Episodic Results Test Name Value Interpretation Reference Range Facility Celiac Disease Panelon 09-13 Gliadin Deam Pep IgA 1.9 U/mL Normal <7.0 [facility] Comment on above: Result Comment: CELIAC INTERPRETATION <7.0 Negative 7.0-10.0 Equivocal >10.0 Positive units: U/mL Performed By: #### C ELP #### [address] [address] Consumer Relations Complaint Clerk: Talib Clements MD Gliadin Deam Pep IgG <0.4 Normal <7.0 [facility] Comment on above: Result Comment: CELIAC INTERPRETATION <7.0 Negative 7.0-10.0 Equivocal >10.0 Positive units: U/mL Performed By: #### C ELP #### [address] [address] Consumer Relations Complaint Clerk: Talib Clements MD Tiss Transglutam IgA 0.4 U/mL Normal <7.0 [facility] Comment on above: Result Comment: CELIAC INTERPRETATION <7.0 Negative 7.0-10.0 Equivocal >10.0 Positive units: U/mL Performed By: #### C ELP #### [address] [address] Consumer Relations Complaint Clerk: Talib Clements MD IgA [Mass/Vol] 184 mg/dL Normal 70-400 [facility] Comment on above: Performed By: #### C ELP #### [address] [address] Consumer Relations Complaint Clerk: Talib Clements MD H. pylori Antigenon 09-14-19 24 H. pylori Antigen Specimen Description .FECES Direct Exam NEGATIVE Report Status FINAL 09/14/2023 Normal [facility] Comment on above: Performed By: #### F HPY #### [address] [address] Consumer Relations Complaint Clerk: Talib Clements MD [facility] [address] [place] [address] Consumer Relations Complaint Clerk: David Hough MD Orders Onlyon 08-05-2023 Orders Only [id number] Lexi Garcia 1970 F Date Provider Department Center 08/05/2023 [id number]-[facility] Family History Problem Relation Age of Onset COPD Mother Coronary artery disease Father 56 Family Status - Relation Status Age at Mother Alive Father Normal [facility] Follow-Upon 06-22-2023 Follow-Up [id number] Lexi Garcia 1970 F Date Provider Department Center 06/22/2023 Ilda-SOLITARIO GARCÍA [facility] Family History Problem Relation Age of Onset COPD Mother Coronary artery disease Father 56 Family Status - Relation Status Age at Mother Alive Father Level of Service:[id number] [place] OFFICE/OUTPATIENT ESTABLISHED MOD MDM 30 MIN () Reason for Visit and Comments: Follow-up [[id number]] - Normal [facility] DEXA BONE DENSITYon 05-11-20 DEXA BONE DENSITY HISTORY: Screening f or osteoporosis COMPARISON: DEXA 06/17/2020 COMMENTS: The left forearm and both hips were scanned. The mean bone mineral density of the left forearm is 0.763 g/sq cm. T-score 1.4. Z- score 2.4 The mean bone mineral density of the left femoral neck is 0.824 g/sq cm. T-score -0.2. Z- score 0.8. The mean bone mineral density of the right femoral neck is 0.723 g/sq cm. T-score -1.1. Z- score -0.1. These values meet WHO criteria for osteopenia. Hip bone mineral density change versus previous 7.8% IMPRESSION: OSTEOPENIA. 1 year follow-up recommended. ELECTRONICALLY SIGNED BY: Tyron Raya DO Normal Not Available XR HAND 3+ VIEWS LEFTon 11-0 XR HAND 3+ VIEWS LEFT FINDINGS: No fracture, dislocation, bone lesion. Joint spaces are maintained. IMPRESSION: Impression: Negative left hand. ELECTRONICALLY SIGNED BY: Ricardo Muro MD Normal Not Available XR HAND 3+ VIEWS RIGHTon XR HAND 3+ VIEWS RIGHT FINDINGS: No fracture, dislocation, bone lesion. Joint spaces are maintained. IMPRESSION: Impression: Negative right hand. 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 I let her know I sent a new mychart code so she can establish mychart and view her visit information there Normal [facility] Office Visiton 02-10-2023 Follow-up visit [id number] Lexi Garcia 1970 Provider Department Center 02/10/2023 ELODIA ZAFAR ALYSA Lorenzana Family History Problem Relation Age of Onset COPD Mother Coronary artery disease Father 56 Family Status - Relation Status Age at Mother Alive Father Level of Service:54186 [place] OFFICE/OUTPATIENT ESTABLISHED MOD MDM 30 MIN Reason for Visit and Comments: Follow-up [343666] - Pt is here for f/u heart cath Normal [facility] HPon 01-25-2023 -- Attestation signed by Dale Hutchison MD at 01/25/2023 10:34 AM H and P reviewed. No significant changes. Patient presenting with abnormal stress. Plan to proceed with cath. Procedure was explained to patient at length and in detail. Risks, benefits, and alternatives were discussed. Patient is informed that risks of this invasive procedure include, but are not limited to, bleeding, hematoma, kidney injury, CVA, arrythmia requiring defibrillation, need for emergent open heart surgery, and . Patient understands these risks and wishes to proceed. Dale Hutchison MD H&P reviewed. The patient was examined and there are no changes to the H&P. 52 year old female who presents today for hr scheduled procedure after she had a positive stress test. Patient has been having anginal episodes but denied any active chest or any other acute cardiac issues. Will be undergoing LHC to evaluate coronaries. [facility] NURSNOTEon 01-25-2023 NURSNOTE RN educated pt on d/ c instructions. RN encouraged pt to voice any questions or concerns. Pt verbalizes no questions or concerns at this time. Pt was wheeled off of unit with all of belongings. [facility] JOSEPHINE Pozo made awar e of Ibuprophen allergy. States to give Aspirin 325mg oral today. Patient tolerates her 81mg Aspirin at home. [facility] HPon 01-13-2023 HP Reviewed Echocardiogram- 12/21/22 Normal LVSF- EF 59%, + LVH Normal RV size and function, normal Rt sided pressures Mild MR, no significant valvular abnormalities. Reviewed stress test and noted reversible ischemia of Circumflex area CTA chest 12/11/22- no pulm embolism noted. No acute concerns. Problem List Items Addressed This Visit Respiratory OHFFMAN (dyspnea on exertion) Noted reversible perfusion, and unstable angina with HOFFMAN therefore heart cath ordered No acute concerns noted on echocardiogram- normal LVSF, normal RV function and no significant valvular abnormalities Circulatory Abnormal nuclear stress test Ordered heart cath Unstable angina (CMS/HCC) - Primary Plan for cardiac cath- orders placed Pt updated Benign essential HTN Continue meds Other Chest pain, atypical Abnormal stress with reversible perfusion defect Will order cardiac cath to assess for any significant coronary stenosis that would correlate with her Unstable Angina symptoms. Mixed hyperlipidemia Continue statin Elodia Oscar OPERATING ROOM SPECIALIST Division of [facility], [facility]- [phone] Pager- [phone] Email- [email or web address] [facility] Orders Onlyon 01-13-2023 Orders Only [id number] Lexi Garcia 1970 F Date Provider Department Center 01/13/2023 ELODIA ZAFAR CARD [facility] Family History Problem Relation Age of Onset COPD Mother Coronary artery disease Father 56 Family Status - Relation Status Age at Mother Alive Father Normal [facility] 29on 12-01-2022 29 Addended by: ELODIA OSCAR on: 12/01/2022 03:39 PM Modules accepted: Orders Normal [facility] Office Visiton 12-01-2022 Follow-up visit [id number] Lexi Garcia 1970 F Date Provider Department Center 12/01/2022 ELODIA ZAFAR [facility] CARD [facility] Family History Problem Relation Age of Onset COPD Mother Coronary artery disease Father 56 Family Status - Relation Status Age at Mother Alive Father Level of Service:88025 [place] OFFICE/OUTPATIENT NEW MODERATE MDM 45-59 MINUTES Reason for Visit and Comments: New Patient [632] Normal [facility] CBC AUTO DIFFon 10-07-2022 BASO # 0.0 103/ul Normal 0.0-0.1 [facility] Comment on above: Performed By: #### C BC #### [facility] [address] [address] [address] Donna Cantrell Basophils/100 WBC (Bld) 0.5 % Normal 0.2-2.0 [facility] Comment on above: Performed By: #### C BC #### [facility] [address] [address] [address] Donna Cantrell EO # 0.0 103/ul Normal 0.0-0.7 [facility] Comment on above: Performed By: #### C BC #### [facility] [address] [address] [address] Donna Cantrell Eosinophils/100 WBC (Bld) 0.0 % Critically low 0.9-7.0 [facility] Comment on above: Performed By: #### C BC #### [facility] [address] [place] [address] Dr. Donna Cantrell Erythrocyte distribution width (RBC) [Ratio] 13.6 % Normal 11.0-15.0 [facility] Comment on above: Performed By: #### C BC #### [facility] [address] [place] [address] Dr. Donna Cantrell Hematocrit (Bld) [Volume fraction] 42.0 % Normal 36.0-48.0 [facility] Comment on above: Performed By: #### C BC #### [facility] [address] [place] [address] Dr. Donna Cantrell Hemoglobin (Bld) [Mass/Vol] 14.4 g/dL Normal 12.0-16.0 [facility] Comment on above: Performed By: #### C BC #### [facility] [address] [place] [address] Dr. Donna Cantrell IG # 0.06 10e3/ul Critically high 0.00-0.03 [facility] Comment on above: Performed By: #### C BC #### [facility] [address] [place] [address] Dr. Donna Cantrell IG % 0.8 % Critically high 0.0-0.5 [facility] Comment on above: Performed By: #### C BC #### [facility] [address] [place] [address] Dr. Donna Cantrell LYMPH # 2.5 103/ul Normal 1.2-3.8 [facility] Comment on above: Performed By: #### C BC #### [facility] [address] [place] [address] Dr. Donna Cantrell Lymphocytes/100 WBC (Bld) 30.8 % Normal 20.5-60.0 [facility] Comment on above: Performed By: #### C BC #### [facility] [address] [place] [address] Dr. Donna Cantrell MANUAL DIFF REQ NO Normal [facility] Comment on above: Performed By: #### C BC #### [facility] [address] [place] [address] Dr. Donna Cantrell MCH (RBC) [Entitic mass] 30.3 pg Normal 26.7-34.0 [facility] Comment on above: Performed By: #### C BC #### [facility] [address] [place] [address] Dr. Donna Cantrell MCHC (RBC) [Mass/Vol] 34.3 g/dL Normal 29.9-35.2 [facility] Comment on above: Performed By: #### C BC #### [facility] [address] [place] [address] Dr. Donna Cantrell MCV (RBC) [Entitic vol] 88.2 fL Normal 81.0-99.0 [facility] Comment on above: Performed By: #### C BC #### [facility] [address] [place] [address] Dr. Donna Cantrell MONO # 0.5 103/ul Normal 0.3-0.8 [facility] Comment on above: Performed By: #### C BC #### [facility] [address] [place] [address] Dr. Donna Cantrell Monocytes/100 WBC (Bld) 6.4 % Normal 1.7-12.0 [facility] Comment on above: Performed By: #### C BC #### [facility] [address] [place] [address] Dr. Donna Cantrell NEUT # 4.9 103/ul Normal 1.4-6.5 [facility] Comment on above: Performed By: #### C BC #### [facility] [address] [place] [address] Dr. Donna Cantrell Neutrophils/100 WBC (Bld) 61.5 % Normal 43.0-75.0 [facility] Comment on above: Performed By: #### C BC #### [facility] [address] [place] [address] Dr. Donna Cantrell Platelet mean volume (Bld) [Entitic vol] 9.9 fL Normal 9.5-13.5 [facility] Comment on above: Performed By: #### C BC #### [facility] [address] [place] [address] Dr. Donna Cantrell PLT 234 103/ul Normal 150-450 [facility] Comment on above: Performed By: #### C BC #### [facility] [address] [place] [address] Dr. Donna Cantrell RBC 4.76 106/ul Normal 4.20-5.40 [facility] Comment on above: Performed By: #### C BC #### [facility] [address] [place] [address] Dr. Donna Cantrell WBC 8.0 103/ul Normal 4.0-11.0 [facility] Comment on above: Performed By: #### C BC #### [facility] [address] [place] [address] Dr. Donna Cantrell PROF CHEM 8 (BAS METB)on Anion gap [Moles/Vol] 13.9 mmol/L Normal [facility] Comment on above: Performed By: #### B MP #### [facility] [address] [place] [address] Dr. Donna Cantrell Calcium [Mass/Vol] 8.9 mg/dL Normal 8.5-10.[address] [facility] Comment on above: Performed By: #### B MP #### [facility] [address] [place] [address] Dr. Donna Cantrell Chloride [Moles/Vol] 104 mmol/L Normal 98-107 [facility] Comment on above: Performed By: #### B MP #### [facility] [address] [address] [address] Donna Cantrell CO2 [Moles/Vol] 26.3 mmol/L Normal 21.0-32.0 [facility] Comment on above: Performed By: #### B MP #### [facility] [address] [address] [address] Donna Cantrell Creatinine [Mass/Vol] 0.91 mg/dL Normal 0.55-1.02 [facility] Comment on above: Performed By: #### B MP #### [facility] [address] [address] [address] Donna Cantrell EGFR-AF CYPRIOT >60 Normal >=60 [facility] Comment on above: Performed By: #### B MP #### [facility] [address] [address] [address] Donna Cantrell EGFR-NON AF CYPRIOT >60 Normal >=60 [facility] Comment on above: Performed By: #### B MP #### [facility] [address] [address] [address] Donna Cantrell Glucose [Mass/Vol] 127 mg/dL Critically high 74-106 [facility] Comment on above: Performed By: #### B MP #### [facility] [address] [address] [address] Donna Cantrell Potassium [Moles/Vol] 4.2 mmol/L Normal 3.5-5.1 [facility] Comment on above: Performed By: #### B MP #### [facility] [address] [address] [address] Donna Cantrell Sodium [Moles/Vol] 140 mmol/L Normal 136-145 [facility] Comment on above: Performed By: #### B MP #### [facility] [address] [address] [address] Donna Cantrell Urea nitrogen [Mass/Vol] 15.0 mg/dL Normal 7.0-18.0 [facility] Comment on above: Performed By: #### B MP #### [facility] [address] [address] [address] Donna Cantrell Urea nitrogen/Creatinine [Mass ratio] 16.5 mg/mg Normal [facility] Comment on above: Performed By: #### B MP #### [facility] [address] [place] [address] Dr. Donna Cantrell PROTIMEon 10-07-2022 INR Coag (PPP) [Relative time] {INR} Normal [facility] Comment on above: Performed By: #### B LTM #### [facility] [address] [place] [address] Dr. Donna Cantrell INR GUIDELINES SEE BELOW Normal [facility] Comment on above: Result Comment: SHIRA RED INR: 2.0 - 3.0 CONDITIONS NOT LISTED BELOW 2.5 - 3.5 FOR PROSTHETIC HEART VALVE REPLACEMENT 2.5 - 3.5 RECURRENT THROMBOSIS Performed By: #### B LTM #### [facility] [address] [place] [address] Dr. Donna Cantrell PT Coag (PPP) [Time] 9.7 s Normal 9.0-11.6 [facility] Comment on above: Performed By: #### B LTM #### [facility] [address] [place] [address] Dr. Donna Cantrell PTTon 10-07-2022 aPTT Coag (Bld) [Time] 29.6 s Normal 22.3-36.2 [facility] Comment on above: Performed By: #### B LTM #### [facility] [address] [place] [address] Dr. Donna Cantrell SCREENING MAMMOGRAM W/AJ, BILATERAL*on 07-01-2022 SCREENING MAMMOGRAM W/AJ, BILATERAL* COMPARISON: June 17, 2021, June 17, 2020 TECHNIQUE: 2D and 3D Tomosynthesis of the right and left breasts was performed. FINDINGS: Breast composition demonstrates almost entirely fat. Overall appearance is stable. Typically benign calcifications. No suspicious microcalcifications, asymmetry, architectural distortion, or associated features are present. IMPRESSION: BIRADS 2: Benign mammogram Board Certified Radiologist. Accredited by the ACR and FDA. MAMMOGRAPHY IS VERY IMPORTANT TO YOUR HEALTH. THE CURRENT [employer]LE[employer] OF RADIOLOG[employer] AND NATIONAL COMPREHENSIVE CANCER NETWORK GUIDELINES RECOMMENDS ANNUAL MAMMOGRAPHY BEGINNING AT AGE 40 THIS FACILITY USES A REMINDER SYSTEM TO ENSURE ALL PATIENTS RECEIVE REMINDER NOTIFICATIONS AT THE APPROPRIATE TIME BASED ON THE RECOMMENDATIONS OF THIS EXAM. Report reported and signed by Eder Barraza on 07/01/2022 1545 Normal [facility] Hunting Sales Leader XR Shoulder Complete Right*o n 07-01-2022 XR Shoulder Complete Right* FINDINGS: Comparison made with prior examination May 16, 2021. Similar post-surgical changes, narrowing of the distal clavicle, normal AC joint alignment. Mid cervical plate screw fusion hardware. No fracture. Normal glenohumeral joint space. IMPRESSION: 1. Post-surgical changes of the distal clavicle/AC joint 2. No fracture Report reported and signed by Eder Barraza on 07/02/2022 0746 Normal [facility] Specialist XR Spine Lumbar Complete w/F jama AND [place] 07-01-2022 XR Spine Lumbar Complete w/Flex AND Ext FINDINGS: Lumbosacral fusion hardware, intervertebral spacer. Grade I anterolisthesis, 6 mm, minimal change with flexion and extension. No osseous or hardware fracture. Normal vertebral body alignment above the level of fusion. Mild central end plate depressions consistent with chronic Schmorl node formation throughout the lumbar spine, mild anterior wedging distal thoracic region. Flexion and extension: No change. IMPRESSION: Lumbosacral fusion, near normal anatomic alignment, no change with flexion and extension Report reported and signed by Eder Barraza on 07/02/2022 0744 Normal [facility] Hunting Sales Leader [facility] 12-17[facility]2021 [facility] (AMARJIT) LEXI GARCIA ([id number]) 1970 F Date Time Provider Department 12/17/21 GAYLE WASHINGTON During your visit today, we recorded the following information about you: Gayle Washington MD 12/17/2021 2:54 PM Signed Please Call patient if MyChart note not read to review results/released to My Chart if tests completed at [facility]: Mildly low vitamin D- increase over the counter 5000 International Units daily with food. One borderline inflammatory test- will monitor. Normal rest of labs and normal other inflammatory test. Continue same daily vitamin D with food. Recheck nonfasting labs in 3months.The orders have been placed. Neck xrays from 09/2021 show osteoarthritis changes, post surgical changes. Mid back xrays from 09/2021 show osteoarthritis. Lumbar spine xrays from 09/2021 show post surgical changes, osteoarthritis changes. Shoulder MRI from 02/2021 show post surgical changes, biceps tendinosis, small tear. May see ortho and or pain clinic if pain symptoms persist or worsen. Happy to further review and discuss at follow up visit. Continue rest of treatment plan per instructions at last office visit. Thank you. 12/12/21 low vitamin D 29.6;high crp 1.4 (1);NL esr 5, cbc, cmp, vitamin b12-536, uric acid 3.9; Outside 09/2021 neck xrays-Straightening of the cervical lordosis is again seen. There is a new anterior plate and screws at C5-6. At the time of the prior, there was a plate at C6-7. There is no evidence of compression fracture or displacement. The disc spaces above and below the levels of fusion are preserved. There is no prominent endplate spurring. There is some facet hypertrophy, greater on the left. Minor bony foraminal encroachment is seen at C5-6 bilaterally and at C6-7 on the left. The atlantoaxial relationship is maintained. There is no prevertebral soft tissue swelling. Outside 09/2021 thoracic xrays-AP, lateral and swimmer's views were obtained. There is mild dextroscoliotic curvature. The pedicles are intact. No definite acute fractures or displacement are seen. There is minor endplate spurring. No paraspinal soft tissue anomalies are present. Outside 09/2021 lumbar xrays-AP, lateral, both oblique and AP and lateral coned-down views of lumbosacral junction were obtained. Patient is status post fusion with posterior rods, pedicle screws and an interbody fusion device at the lumbosacral junction. The hardware appears intact and in appropriate position. There is grade 1 anterolisthesis of L5 on S1. No other displacement is identified. No acute compression fractures are seen. The disc spaces above the level of fusion are uniform. There is minor endplate spurring. There is mid and lower lumbar facet hypertrophy. Outside 02/2021 R shoulder MRI- post surgical changes, biceps tendinosis, small superior labral tear; Kamryn Luna MA 12/17/2021 3:14 PM Signed Pt aware of message below. Patient states that she can get disability with certain diagnosis.' she states that fibromyalgia was explained to her through my chart. She wants to know if this can be added to her diagnosis' list on her chart? Please advise. AMBER Rojas MD 12/17/2021 4:01 PM Signed Notify patient request granted Thank you. Kamryn Luna MA 12/17/2021 4:04 PM Signed Pt aware. 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 - lamoTRIgine (LAMICTAL) 100 mg tablet - loratadine (CLARITIN) 10 mg tablet Loratadine Active 10 MG PO Daily January 07, 2021 7:15am - kyklk-rw-4-dha-epa-joey spho-ast [id number] mg cap Take by mouth. - PNV Comb No.59/Iron/FA/DHA (-DHA ORAL) Take by mouth. - vitamin b complex (VITAMINS B COMPLEX) capsule Take 1 capsule by mouth once daily. - Cholecalciferol, Vitamin D3, (VITAMIN D-3) 50 mcg (2,000 unit) cap Take by mouth. - clonazePAM (KLONOPIN) 0.5 mg tablet Take 0.5 mg by mouth twice daily. - QUEtiapine (SEROQUEL) 400 mg tablet Take 400 mg by mouth daily at bedtime. - lamoTRIgine (LAMICTAL) 200 mg tablet Take 300 mg by mouth once daily as needed. - amLODIPine (NORVASC) 10 mg tablet Take 10 mg by mouth once daily. - DESVENLAFAXINE SUCCINATE ORAL Take 100 mg by mouth. Once daily. - Estradiol (more content not included)... Normal [facility] BLEEDING TIMEon 12-16-2021 BLEEDING TIME 7.0 min Normal 1.0-8.0 [facility] Comment on above: Result Comment: test done by Selam Almodovar Performed By: #### B LTM #### [facility] [address] [place] [address] Dr. Donna Cantrell 25(OH)D3 [facility] 25-hydroxyvitamin D3 [Mass/Vol] 29.6 ng/mL Low 31.0-80.0 [facility] Comment on above: Order Comment: Speci men Type: BLOOD SPECIMEN Ordering Facility: [facility] Address: [address] [place] [address] Result Comment: Clas sification of 25 [place] Vitamin D status: Deficiency/Insufficiency: < or = 30 ng/ml. Sufficiency/Optimal Levels: 31-80 ng/mL Toxicity: > 100 ng/mL. Test performed by chemiluminescent immunoassay. Performed By: #### 1 989-3 #### [facility] CLIA [id number] [address] [place] [address] [place] CBC panel Auto (Bld)on 12-12 Erythrocyte distribution width (RBC) [Ratio] 14.4 % Normal 11.5-15.0 [facility] Comment on above: Order Comment: Speci men Type: BLOOD SPECIMEN Ordering Facility: [facility] Address: [address] [place] [address] Performed By: #### 5 8410-2 #### [facility] CLIA [id number] [address] [place] [address] [place] Hematocrit (Bld) [Volume fraction] 45.2 % Normal 36.0-46.0 [facility] Comment on above: Order Comment: Speci men Type: BLOOD SPECIMEN Ordering Facility: [facility] Address: [address] [place] [address] Performed By: #### 5 8410-2 #### [facility] CLIA [id number] [address] [place] [address] [place] Hemoglobin (Bld) [Mass/Vol] 14.8 g/dL Normal 11.5-15.5 [facility] Comment on above: Order Comment: Speci men Type: BLOOD SPECIMEN Ordering Facility: [facility] Address: [address] [place] [address] Performed By: #### 5 8410-2 #### [facility] CLIA [id number] [address] [place] [address] MCH (RBC) [Entitic mass] 29.7 pg Normal 26.0-34.0 [facility] Comment on above: Order Comment: Speci men Type: BLOOD SPECIMEN Ordering Facility: [facility] Address: [address] [place] [address] Performed By: #### 5 8410-2 #### [facility] CLIA [id number] [address] [place] [address] [place] MCHC (RBC) [Mass/Vol] 32.7 g/dL Normal 30.5-36.0 [facility] Comment on above: Order Comment: Speci men Type: BLOOD SPECIMEN Ordering Facility: [facility] Address: [address] [place], [place] [address] Performed By: #### 5 8410-2 #### [facility] CLIA [id number] [address] [place] [address] [place] MCV (RBC) [Entitic vol] 90.8 fL Normal 80.0-100.0 [facility] Comment on above: Order Comment: Speci men Type: BLOOD SPECIMEN Ordering Facility: [facility] Address: [address] [place] [address] Performed By: #### 5 8410-2 #### [facility] CLIA [id number] [address] [place] [address] [place] Nucleated RBC (Bld) [#/Vol] 10*3/uL Normal <0.01 [facility] Comment on above: Order Comment: Speci men Type: BLOOD SPECIMEN Ordering Facility: [facility] Address: [address] [place], [place] [address] Performed By: #### 5 8410-2 #### [facility] CLIA [id number] [address] [place] [address] [place] Platelet mean volume (Bld) [Entitic vol] 10.7 fL Normal 9.0-12.7 [facility] Comment on above: Order Comment: Speci men Type: BLOOD SPECIMEN Ordering Facility: [facility] Address: [address] [place] [address] Performed By: #### 5 8410-2 #### [facility] CLIA [id number] [address] [place] [address] [place] Platelets (Bld) [#/Vol] 259 10*3/uL Normal 150-400 [facility] Comment on above: Order Comment: Speci men Type: BLOOD SPECIMEN [facility]ing Facility: [facility] Address: [address] [place] [address] Performed By: #### 5 8410-2 #### [facility] CLIA [id number] [address] [place], [place] [address] [place] RBC (Bld) [#/Vol] 4.98 10*6/uL Normal 3.90-5.20 [facility] Comment on above: Order Comment: Speci men Type: BLOOD SPECIMEN [facility]ing Facility: [facility] Address: [address] [place], [place] [address] Performed By: #### 5 8410-2 #### [facility] CLIA [id number] [address] [place] [address] [place] WBC (Bld) [#/Vol] 9.25 10*3/uL Normal 3.70-11.00 [facility] Comment on above: Order Comment: Speci men Type: BLOOD SPECIMEN [facility]ing Facility: [facility] Address: [address] [place], [place] [address] [address] Performed By: #### 5 8410-2 #### [facility] CLIA [id number] [address] [place] [address] [place] CNOVon 12-12-2021 CNOV Office Visit (AMARJIT ) LEXI GARCIA ([id number]) 1970 F Date Time Provider Department 12/12/21 10:40 AM GAYLE WASHINGTON During your visit today, we recorded the following information about you: Pulse Blood pressure Weight 88/minute 125/87 97.5 kg Gayle Washington MD 12/17/2021 2:53 PM Addendum Face to face follow up for joint pain/ osteoarthritis/ chronic pain syndrome/ fibromyalgia Today's visit 12/12/21:taking mobic no longer working. Wants to retry celebrex. Occasionally takes flexeril, completed vitamin D script. Taking daily vitamin D 2000 International Units daily with food. Chronic current pain in L>R knees, R shoulder, L elbow, neck. Reports pain 5-6/10. L>R knees, L knee slightly better after L knee scope/cleaned out. L elbow locks up. minimal AM stiffness. Fell 3times since last office visit, flat ground knees give out. [employer] 06/26/21. Feels safe at home. Has enough food, supplies and medications. Overall uncomfortable but happy with rheum care. No fx/trauma/illness/oral sores/rash/hairloss/ja w pain/dysphagia/epistax is/hemoptysis since last visit. No adverse effects with meds. No other complaints. Patient denies fever, chills, cp, dyspnea, nausea, vomiting, night sweats, scalp tenderness, visual changes, jiang, bowel/bladder changes, weight changes or other complaints. Last visit supportive care, start flexeril/notify office if not tolerated, improved with mobic, see ortho/pain clinic for oysterman pain recommendations/inject ions, prn acetaminophen, start prn heat/ice/otc arthritis creams, low impact weightbearing exercise as tolerated, avoid aggravating triggers,supportive care, start flexeril/notify office if not tolerated, improved with mobic, see ortho/pain clinic for snf pain recommendations/inject ions, prn acetaminophen, start prn heat/ice/otc arthritis creams, low impact weightbearing exercise as tolerated, avoid aggravating triggers, June 04, 2021 SUBJECTIVE Ms. Garcia is a 51 year old female who presents for joint pain eval. Years of pain in R>L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 rate/Area] mL/min/{1.73_m2} Normal >60 [facility] Comment on above: Order Comment: Dash baeza has been rescheduled by [facility] at 06/26/2020 05:07 Reason: Failed attempt at venipuncture Result Comment: >60 mL/min/1.73m2 EGFR, calc. for ages 18 and older using the MDRD formula (not corrected for weight), is valid for stable renal function. Performed By: #### B MPX #### [facility] [address] [place] [address] Glucose [Mass/Vol] 145 mg/dL Critically high 70-99 [facility] Comment on above: Order Comment: Dash baeza has been rescheduled by [facility] at 06/26/2020 05:07 Reason: Failed attempt at venipuncture Performed By: #### B MPX #### [facility] [address] [place] [address] Potassium reflex Mg 3.9 mEq/L Normal 3.4-4.9 [facility] Comment on above: Order Comment: Dash baeza has been rescheduled by [facility] at 06/26/2020 05:07 Reason: Failed attempt at venipuncture Performed By: #### B MPX #### [facility] [address] [place] [address] Sodium [Moles/Vol] 134 mmol/L Low 135-144 [facility] Comment on above: Order Comment: Dash baeza has been rescheduled by [facility] at 06/26/2020 05:07 Reason: Failed attempt at venipuncture Performed By: #### B MPX #### [facility] [address] [place] [address] Urea nitrogen [Mass/Vol] 9 mg/dL Normal 6-20 [facility] Comment on above: Order Comment: Dash baeza has been rescheduled by [facility] at 06/26/2020 05:07 Reason: Failed attempt at venipuncture Performed By: #### B MPX #### [facility] [address] [place] [address] CBC With Platelet and Differ entialon 06-26-2020 Basophils (Bld) [#/Vol] 0.0 10*3/uL Normal 0.0-0.2 [facility] Comment on above: Order Comment: Dash baeza has been rescheduled by [facility] at 06/26/2020 05:07 Reason: Failed attempt at venipuncture Performed By: #### C BCWD #### [facility] [address] [place] [address] Basophils/100 WBC (Bld) 0.2 % Normal [facility] Comment on above: Order Comment: Dash baeza has been rescheduled by [facility] at 06/26/2020 05:07 Reason: Failed attempt at venipuncture Performed By: #### C BCWD #### [facility] [address] [place] [address] Eosinophils (Bld) [#/Vol] 0.0 10*3/uL Normal 0.0-0.7 [facility] Comment on above: Order Comment: Dash baeza has been rescheduled by [facility] at 06/26/2020 05:07 Reason: Failed attempt at venipuncture Performed By: #### C BCWD #### [facility] [address] [place] [address] Eosinophils/100 WBC (Bld) 0.0 % Normal [facility] Comment on above: Order Comment: Dash baeza has been rescheduled by [facility] at 06/26/2020 05:07 Reason: Failed attempt at venipuncture Performed By: #### C BCWD #### [facility] [address] [place] [address] Erythrocyte distribution width (RBC) [Ratio] 13.9 % Normal 11.5-14.5 [facility] Comment on above: Order Comment: Dash baeza has been rescheduled by [facility] at 06/26/2020 05:07 Reason: Failed attempt at venipuncture Performed By: #### C BCWD #### [facility] [address] [place] [address] Hematocrit (Bld) [Volume fraction] 39.4 % Normal 37.0-47.0 [facility] Comment on above: Order Comment: Dash baeza has been rescheduled by [facility] at 06/26/2020 05:07 Reason: Failed attempt at venipuncture Performed By: #### C BCWD #### [facility] [address] [place] [address] Hemoglobin (Bld) [Mass/Vol] 13.2 g/dL Normal 12.0-16.0 [facility] Comment on above: Order Comment: Dash baeza has been rescheduled by [facility] at 06/26/2020 05:07 Reason: Failed attempt at venipuncture Performed By: #### C BCWD #### [facility] [address] [place] [address] Lymphocytes (Bld) [#/Vol] 1.0 10*3/uL Normal 1.0-4.8 [facility] Comment on above: Order Comment: Dash baeza has been rescheduled by [facility] at 06/26/2020 05:07 Reason: Failed attempt at venipuncture Performed By: #### C BCWD #### [facility] [address] [place] [address] Lymphocytes/100 WBC (Bld) 6.4 % Normal [facility] Comment on above: Order Comment: Dash baeza has been rescheduled by [facility] at 06/26/2020 05:07 Reason: Failed attempt at venipuncture Performed By: #### C BCWD #### [facility] [address] [place] [address] MCH (RBC) [Entitic mass] 30.2 pg Normal 27.0-31.3 [facility] Comment on above: Order Comment: Dash baeza has been rescheduled by [facility] at 06/26/2020 05:07 Reason: Failed attempt at venipuncture Performed By: #### C BCWD #### [facility] [address] [place] [address] MCHC (RBC) [Mass/Vol] 33.4 % Normal 33.0-37.0 [facility] Comment on above: Order Comment: Dash baeza has been rescheduled by [facility] at 06/26/2020 05:07 Reason: Failed attempt at venipuncture Performed By: #### C BCWD #### [facility] [address] [place] [address] MCV (RBC) [Entitic vol] 90.3 fL Normal 82.0-100.0 [facility] Comment on above: Order Comment: Dash baeza has been rescheduled by [facility] at 06/26/2020 05:07 Reason: Failed attempt at venipuncture Performed By: #### C BCWD #### [facility] [address] [place] [address] Monocytes (Bld) [#/Vol] 1.1 10*3/uL Critically high 0.2-0.8 [facility] Comment on above: Order Comment: Dash baeza has been rescheduled by [facility] at 06/26/2020 05:07 Reason: Failed attempt at venipuncture Performed By: #### C BCWD #### [facility] [address] [place] [address] Monocytes/100 WBC (Bld) 6.9 % Normal [facility] Comment on above: Order Comment: Dash baeza has been rescheduled by [facility] at 06/26/2020 05:07 Reason: Failed attempt at venipuncture Performed By: #### C BCWD #### [facility] [address] [place] [address] Neutrophils (Bld) [#/Vol] 14.0 10*3/uL Critically high 1.4-6.5 [facility] Comment on above: Order Comment: Dash baeza has been rescheduled by [facility] at 06/26/2020 05:07 Reason: Failed attempt at venipuncture Performed By: #### C BCWD #### [facility] [address] [place] [address] Neutrophils/100 WBC (Bld) 86.5 % Normal [facility] Comment on above: Order Comment: Dash baeza has been rescheduled by [facility] at 06/26/2020 05:07 Reason: Failed attempt at venipuncture Performed By: #### C BCWD #### [facility] [address] [place] [address] Platelets (Bld) [#/Vol] 237 10*3/uL Normal 130-400 [facility] Comment on above: Order Comment: Dash baeza has been rescheduled by [facility] at 06/26/2020 05:07 Reason: Failed attempt at venipuncture Performed By: #### C BCWD #### [facility] [address] [place] [address] RBC (Bld) [#/Vol] 4.37 10*6/uL Normal 4.20-5.40 [facility] Comment on above: Order Comment: Dash baeza has been rescheduled by [facility] at 06/26/2020 05:07 Reason: Failed attempt at venipuncture Performed By: #### C BCWD #### [facility] [address] [place] [address] WBC (Bld) [#/Vol] 16.1 10*3/uL Critically high 4.8-10.8 [facility] Comment on above: Order Comment: Dash baeza has been rescheduled by [facility] at 06/26/2020 05:07 Reason: Failed attempt at venipuncture Performed By: #### C BCWD #### [facility] [address] [place] [address] XR LUMBAR SPINE (2-3 VIEWS)o n 06-26-2020 XR LUMBAR SPINE (2-3 VIEWS) EXAMINATION: XR LUMBAR SPINE (2-3 VIEWS) CLINICAL HISTORY: Postop COMPARISON: none FINDINGS: Six views of the lumbar spine are submitted. There are 5 lumbar type vertebrae. No acute fractures. Disk spaces are well preserved. Grade 1 anterolisthesis at site of fixation. There is multilevel degenerative changes posterior facets. IMPRESSION STATUS POST PEDICLE SCREW AND ALENA OF L5 AND S1 WITH INTERBODY FUSION. Interpreted by: Maximiliano Rachel MD Signed by: Maximiliano Rachel MD 06/26/20 Final result Normal [facility] Basic Metabolic Panel Reflex Mgon 06-25-2020 Anion gap [Moles/Vol] 10 mmol/L Normal 9-15 [facility] Comment on above: Performed By: #### B MPX #### [facility] [address] [place] [address] Calcium [Mass/Vol] 8.9 mg/dL Normal 8.5-9.9 [facility] Comment on above: Performed By: #### B MPX #### [facility] [address] [place] [address] Chloride [Moles/Vol] 102 mmol/L Normal 95-107 [facility] Comment on above: Performed By: #### B MPX #### [facility] [address] [place] [address] CO2 [Moles/Vol] 21 mmol/L Normal 20-31 [facility] Comment on above: Performed By: #### B MPX #### [facility] [address] [place] [address] Creatinine [Mass/Vol] 0.72 mg/dL Normal 0.50-0.90 [facility] Comment on above: Performed By: #### B MPX #### [facility] [address] [place] [address] GFR/1.73 sq M predicted among blacks MDRD (S/P/Bld) [Vol rate/Area] mL/min/{1.73_m2} Normal >60 [facility] Comment on above: Result Comment: >60 mL/min/1.73m2 EGFR, calc. for ages 18 and older using the MDRD formula (not corrected for weight), is valid for stable renal function. Performed By: #### B MPX #### [facility] [address] [place] [address] GFR/1.73 sq M.predicted MDRD (S/P/Bld) [Vol rate/Area] mL/min/{1.73_m2} Normal >60 [facility] Comment on above: Result Comment: >60 mL/min/1.73m2 EGFR, calc. for ages 18 and older using the MDRD formula (not corrected for weight), is valid for stable renal function. Performed By: #### B MPX #### [facility] [address] [place] [address] Glucose [Mass/Vol] 118 mg/dL Critically high 70-99 [facility] Comment on above: Performed By: #### B MPX #### [facility] [address] [place] [address] Potassium reflex Mg 4.6 mEq/L Normal 3.4-4.9 [facility] Comment on above: Performed By: #### B MPX #### [facility] [address] [place] [address] Sodium [Moles/Vol] 133 mmol/L Low 135-144 [facility] Comment on above: Performed By: #### B MPX #### [facility] [address] [place] [address] Urea nitrogen [Mass/Vol] 16 mg/dL Normal 6-20 [facility] Comment on above: Performed By: #### B MPX #### [facility] [address] [place] [address] CBC With Platelet No Differe ntialon 06-25-2020 Erythrocyte distribution width (RBC) [Ratio] 14.3 % Normal 11.5-14.5 [facility] Comment on above: Performed By: #### C BCND #### [facility] [address] [place] [address] Hematocrit (Bld) [Volume fraction] 39.4 % Normal 37.0-47.0 [facility] Comment on above: Performed By: #### C BCND #### [facility] [address] [place] [address] Hemoglobin (Bld) [Mass/Vol] 12.9 g/dL Normal 12.0-16.0 [facility] Comment on above: Performed By: #### C BCND #### [facility] [address] [place] [address] MCH (RBC) [Entitic mass] 30.4 pg Normal 27.0-31.3 [facility] Comment on above: Performed By: #### C BCND #### [facility] [address] [place] [address] MCHC (RBC) [Mass/Vol] 32.8 % Low 33.0-37.0 [facility] Comment on above: Performed By: #### C BCND #### [facility] [address] [place] [address] MCV (RBC) [Entitic vol] 92.7 fL Normal 82.0-100.0 [facility] Comment on above: Performed By: #### C BCND #### [facility] [address] [place] [address] Platelets (Bld) [#/Vol] 213 10*3/uL Normal 130-400 [facility] Comment on above: Performed By: #### C BCND #### [facility] [address] [place] [address] RBC (Bld) [#/Vol] 4.25 10*6/uL Normal 4.20-5.40 [facility] Comment on above: Performed By: #### C BCND #### [facility] [address] [place] [address] WBC (Bld) [#/Vol] 12.0 10*3/uL Critically high 4.8-10.8 [facility] Comment on above: Performed By: #### C BCND #### [facility] [address] [place] [address] FLUORO FOR SURGICAL PROCEDUR ESon 06-25-2020 FLUORO FOR SURGICAL PROCEDURES FLUORO FOR SURGICAL PROCEDURES : 06/25/2020 8:53 AM CLINICAL HISTORY: R52 Pain ICD10. COMPARISON: None available. Intraoperative fluoroscopy was provided for Dr. Felicia edmond. A total of 8 seconds of fluoroscopy was used, with 5 fluoroscopic stills saved. No diagnostic images were obtained. Please see Dr. Velasquez urgical notes for completeness. Interpreted by: Maximiliano Rachel MD Signed by: Maximiliano Rachel MD 06/26/20 Final result Normal [facility] Surgical Specimenon 06-25-20 20 Surgical Specimen [facility] [address] [place] [address] FINAL SURGICAL PATHOLOGY REPORT Patient Name: LEXI GARCIA Accession No: [id number] Age Sex: 1970 Location: [facility] [id number] Account No: [id number] Collected: 06/25/2020 [facility] Rec No: [id number] Received: 06/25/2020 Attend Phys: FEMI SEXTONO Completed: 06/26/2020 Perform Phys: FEMI FELICIA FINAL DIAGNOSIS: DISC- INTERVERTEBRAL DISC AND BONE FRAGMENTS WITH REACTIVE CHANGES. WALTER/WALTER CLINICAL INFORMATION: Spondylosis, spondylolisthesis, stenosis, radiculopathy, degenerative disc disease. SPECIMEN: Disc GROSS DESCRIPTION: Specimen received in formalin in a container labeled with patient's name and designated as spine . Specimen consists of multiple pinkish-rosado soft to firm tissue fragments mixed with bony fragments measuring in aggregate 1.5 x 1.5 x 0.2 cm. Specimen is submitted in toto in one cassette after decalcification. WALTER/JOSIE CPT: 38749 X1 [id number] X1 ANABELLA LEWIS M.D. 06/26/2020 Electronically signed out by Page 1 of 1 [facility] Comment on above: Performed By: #### S UR ####[facility] [place] [phone] COVID-19, NAAon 06-20-2020 COVID-19, BELLE Not Detected Normal Not Detect [facility] Comment on above: Result Comment: This nucleic acid amplification test was developed and its performance characteristics determined by [employer]. Nucleic acid amplification tests include PCR and TMA. This test has not been FDA cleared or approved. This test has been authorized by FDA under an Emergency Use Authorization (EUA). This test is only authorized for the duration of time the declaration that circumstances exist justifying the authorization of the emergency use of in vitro diagnostic tests for detection of SARS-CoV-2 virus and/or diagnosis of COVID-19 infection under section 564(b)(1) of the Act, 21 U.S.C. 360bbb-3(b) (1), unless the authorization is terminated or revoked sooner. When diagnostic testing is negative, the possibility of a false negative result should be considered in the context of a patient's recent exposures and the presence of clinical signs and symptoms consistent with COVID-19. An individual without symptoms of COVID-19 and who is not shedding SARS-CoV-2 virus would expect to have a negative (not detected) result in this assay. Performed at: [facility] [address] [facility], [place] [id number] Consumer Relations Complaint Clerk: Altagracia Quiñonez MD, Phone: [phone] Performed By: #### I RCOV #### [facility] [address] [place] [address] Basic Metabolic Panelon 12-1 5-2020 Anion gap [Moles/Vol] 11 mmol/L Normal 9-15 [facility] Comment on above: Performed By: #### B MP #### [facility] [address] [place] [address] Calcium [Mass/Vol] 9.0 mg/dL Normal 8.5-9.9 [facility] Comment on above: Performed By: #### B MP #### [facility] [address] [place] [address] Chloride [Moles/Vol] 106 mmol/L Normal 95-107 [facility] Comment on above: Performed By: #### B MP #### [facility] [address] [place] [address] CO2 [Moles/Vol] 23 mmol/L Normal 20-31 [facility] Comment on above: Performed By: #### B MP #### [facility] [address] [place] [address] Creatinine [Mass/Vol] 0.76 mg/dL Normal 0.50-0.90 [facility] Comment on above: Performed By: #### B MP #### [facility] [address] [place] [address] GFR/1.73 sq M predicted among blacks MDRD (S/P/Bld) [Vol rate/Area] mL/min/{1.73_m2} Normal >60 [facility] Comment on above: Result Comment: >60 mL/min/1.73m2 EGFR, calc. for ages 18 and older using the MDRD formula (not corrected for weight), is valid for stable renal function. Performed By: #### B MP #### [facility] [address] [place] [address] GFR/1.73 sq M.predicted MDRD (S/P/Bld) [Vol rate/Area] mL/min/{1.73_m2} Normal >60 [facility] Comment on above: Result Comment: >60 mL/min/1.73m2 EGFR, calc. for ages 18 and older using the MDRD formula (not corrected for weight), is valid for stable renal function. Performed By: #### B MP #### [facility] [address] [place] [address] Glucose [Mass/Vol] 87 mg/dL Normal 70-99 [facility] Comment on above: Performed By: #### B MP #### [facility] [address] [place] [address] Potassium [Moles/Vol] 3.8 mmol/L Normal 3.4-4.9 [facility] Comment on above: Performed By: #### B MP #### [facility] [address] [place] [address] Sodium [Moles/Vol] 140 mmol/L Normal 135-144 [facility] Comment on above: Performed By: #### B MP #### [facility] [address] [place] [address] Urea nitrogen [Mass/Vol] 20 mg/dL Normal 6-20 [facility] Comment on above: Performed By: #### B MP #### [facility] [address] [place] [address] CBC With Platelet No Differe ntialon 06-18-2020 Erythrocyte distribution width (RBC) [Ratio] 14.2 % Normal 11.5-14.5 [facility] Comment on above: Performed By: #### C BCND #### [facility] [address] [place] [address] Hematocrit (Bld) [Volume fraction] 41.5 % Normal 37.0-47.0 [facility] Comment on above: Performed By: #### C BCND #### [facility] [address] [place] [address] Hemoglobin (Bld) [Mass/Vol] 14.3 g/dL Normal 12.0-16.0 [facility] Comment on above: Performed By: #### C BCND #### [facility] [address] [place] [address] MCH (RBC) [Entitic mass] 31.4 pg Critically high 27.0-31.3 [facility] Comment on above: Performed By: #### C BCND #### [facility] [address] [place] [address] MCHC (RBC) [Mass/Vol] 34.5 % Normal 33.0-37.0 [facility] Comment on above: Performed By: #### C BCND #### [facility] [address] [place] [address] MCV (RBC) [Entitic vol] 91.2 fL Normal 82.0-100.0 [facility] Comment on above: Performed By: #### C BCND #### [facility] [address] [place] [address] Platelets (Bld) [#/Vol] 241 10*3/uL Normal 130-400 [facility] Comment on above: Performed By: #### C BCND #### [facility] [address] [place] [address] RBC (Bld) [#/Vol] 4.55 10*6/uL Normal 4.20-5.40 [facility] Comment on above: Performed By: #### C BCND #### [facility] [address] [place] [address] WBC (Bld) [#/Vol] 9.7 10*3/uL Normal 4.8-10.8 [facility] Comment on above: Performed By: #### C BCND #### [facility] [address] [place] [address] COVID-19, NAAon 06-18-2020 Source Swab OPERATING ROOM SPECIALIST swab Normal [facility] Comment on above: Performed By: #### I RCOV #### [facility] [address] [place] [address] Prothrombin Timeon 0 INR Coag (PPP) [Relative time] 1.0 {INR} Normal [facility] Comment on above: Performed By: #### P T ####[facility] [place] [phone] PT Coag (PPP) [Time] 13.1 s Normal 12.3-14.9 [facility] Comment on above: Performed By: #### P T ####[facility] [facility] [place] [phone] Type and Screen Capture 3 sc rn cellon 06-18-2020 Type and Screen Capture 3 scrn cell PATIENT: JOSHUA Doss LOC: [facility] BILL# : [id number] : 1970 SEX: F ORDERED BY: TEENA Lowe ORDERED : 06/18/2020 15:07 COLLECTED: 06/18/2020 15:36 ORDER : [id number] RECEIVED : 06/18/2020 15:36 Second, confirmatory specimen needed to satisfy Group O policy. TEST NAME RESULT UNITS RANGES ABN FL ST ABORH Capture O POS F Antibody 3 Cell Scrn Captu NEG F Normal [facility] Comment on above: Performed By: #### T S3C #### [facility] [address] [place] [address] XR SPINE ENTIRE (2-3 VIEWS)o n 06-18-2020 XR SPINE ENTIRE (2-3 VIEWS) CLINICAL HISTORY: OR date 06/25/2020 -- PLIF lumbar XR SPINE ENTIRE (2-3 VIEWS) COMPARISON: None TECHNIQUE: views of the cervical thoracic and lumbar spine alongside a ruler FINDINGS: There are no lytic or sclerotic bone lesions. Cardiac and mediastinal silhouettes are normal in size and contour. No focal areas of consolidations or effusion are noted. Gas pattern is nonspecific. There are no lytic or cervical lesions. There is no acute fracture or subluxation. There has been a previous anterior plate and screw fixation of the lower cervical spine C5-6. There is dextroscoliosis of the midthoracic spine with a Simon angle measurement of 19 degrees between T4 and T7. There is grade 2 anterolisthesis of L5 on S1 with spondylolysis of the posterior elements of L5. There is mild intervertebral disc space narrowing from L1 to L5 with severe disc space narrowing at L5-S1. IMPRESSION There are no acute osseous injuries. There has been a prior anterior plate and screw fixation of the lower cervical spine. There is mild scoliosis of thoracic line. At L5-S1 there is severe joint space narrowing with endplate 2 anterolisthesis of L5 on S1 and spondylolysis of the posterior elements. Interpreted by: Ash Horta MD Signed by: Ash Horta MD 06/19/20 Final result Normal [facility] FLUORO FOR SURGICAL PROCEDUR ESon 05-09-2020 FLUORO FOR SURGICAL PROCEDURES FLUORO FOR SURGICAL PROCEDURES : 05/09/2020 7:36 AM CLINICAL HISTORY: C-Spine . COMPARISON: None available. Intraoperative fluoroscopy was provided for Dr. Rosario procedure. A total of 17.2 seconds of fluoroscopy was used, with 5 fluoroscopic stills saved. No diagnostic images were obtained. Please see Dr. Rosario surgical notes for completeness. Interpreted by: Maximiliano Rachel MD Signed by: Maximiliano Rachel MD 05/09/20 Final result Normal [facility] COVID-19, NAAon 05-05-2020 COVID-19, BELLE Not Detected Normal Not Detect [facility] Comment on above: Result Comment: This nucleic acid amplification test was developed and its performance characteristics determined by [email or web address]. Nucleic acid amplification tests include PCR and TMA. This test has not been FDA cleared or approved. This test has been authorized by FDA under an Emergency Use Authorization (EUA). This test is only authorized for the duration of time the declaration that circumstances exist justifying the authorization of the emergency use of in vitro diagnostic tests for detection of SARS-CoV-2 virus and/or diagnosis of COVID-19 infection under section 564(b)(1) of the Act, 21 U.S.C. 360bbb-3(b) (1), unless the authorization is terminated or revoked sooner. When diagnostic testing is negative, the possibility of a false negative result should be considered in the context of a patient's recent exposures and the presence of clinical signs and symptoms consistent with COVID-19. An individual without symptoms of COVID-19 and who is not shedding SARS-CoV-2 virus would expect to have a negative (not detected) result in this assay. Performed at: [facility] [address] [facility] [place] [id number] Consumer Relations Complaint Clerk: Altagracia Quiñonez MD, Phone: [phone] Performed By: #### I RCOV ####[facility] [place] [phone] Basic Metabolic Panelon - Anion gap [Moles/Vol] 12 mmol/L Normal 9-15 [facility] Comment on above: Performed By: #### B MP #### [facility] [address] [place] [address] Calcium [Mass/Vol] 10.5 mg/dL Critically high 8.5-9.9 [facility] Comment on above: Performed By: #### B MP #### [facility] [address] [place] [address] Chloride [Moles/Vol] 98 mmol/L Normal 95-107 [facility] Comment on above: Performed By: #### B MP #### [facility] [address] [place] [address] CO2 [Moles/Vol] 27 mmol/L Normal 20-31 [facility] Comment on above: Performed By: #### B MP #### [facility] [address] [place] [address] Creatinine [Mass/Vol] 0.82 mg/dL Normal 0.50-0.90 [facility] Comment on above: Performed By: #### B MP #### [facility] [address] [place] [address] GFR/1.73 sq M predicted among blacks MDRD (S/P/Bld) [Vol rate/Area] mL/min/{1.73_m2} Normal >60 [facility] Comment on above: Result Comment: >60 mL/min/1.73m2 EGFR, calc. for ages 18 and older using the MDRD formula (not corrected for weight), is valid for stable renal function. Performed By: #### B MP #### [facility] [address] [place] [address] GFR/1.73 sq M.predicted MDRD (S/P/Bld) [Vol rate/Area] mL/min/{1.73_m2} Normal >60 [facility] Comment on above: Result Comment: >60 mL/min/1.73m2 EGFR, calc. for ages 18 and older using the MDRD formula (not corrected for weight), is valid for stable renal function. Performed By: #### B MP #### [facility] [address] [place] [address] Glucose [Mass/Vol] 84 mg/dL Normal 70-99 [facility] Comment on above: Performed By: #### B MP #### [facility] [address] [place] [address] Potassium [Moles/Vol] 4.6 mmol/L Normal 3.4-4.9 [facility] Comment on above: Performed By: #### B MP #### [facility] [address] [place] [address] Sodium [Moles/Vol] 137 mmol/L Normal 135-144 [facility] Comment on above: Performed By: #### B MP #### [facility] [address] [place] [address] Urea nitrogen [Mass/Vol] 31 mg/dL Critically high 6-20 [facility] Comment on above: Performed By: #### B MP #### [facility] [address] [place] [address] CBC With Platelet No Differe ntialon 05-03-2020 Erythrocyte distribution width (RBC) [Ratio] 14.3 % Normal 11.5-14.5 [facility] Comment on above: Performed By: #### C BCND #### [facility] [address] [place] [address] Hematocrit (Bld) [Volume fraction] 41.3 % Normal 37.0-47.0 [facility] Comment on above: Performed By: #### C BCND #### [facility] [address] [place] [address] Hemoglobin (Bld) [Mass/Vol] 13.6 g/dL Normal 12.0-16.0 [facility] Comment on above: Performed By: #### C BCND #### [facility] [address] [place] [address] MCH (RBC) [Entitic mass] 30.7 pg Normal 27.0-31.3 [facility] Comment on above: Performed By: #### C BCND #### [facility] [address] [place] [address] MCHC (RBC) [Mass/Vol] 33.0 % Normal 33.0-37.0 [facility] Comment on above: Performed By: #### C BCND #### [facility] [address] [place] [address] MCV (RBC) [Entitic vol] 92.9 fL Normal 82.0-100.0 [facility] Comment on above: Performed By: #### C BCND #### [facility] [address] [place] [address] Platelets (Bld) [#/Vol] 241 10*3/uL Normal 130-400 [facility] Comment on above: Performed By: #### C BCND #### [facility] [address] [place] [address] RBC (Bld) [#/Vol] 4.44 10*6/uL Normal 4.20-5.40 [facility] Comment on above: Performed By: #### C BCND #### [facility] [address] [place] [address] WBC (Bld) [#/Vol] 11.0 10*3/uL Critically high 4.8-10.8 [facility] Comment on above: Performed By: #### C BCND #### [facility] [address] [place] [address] COVID-19, NAAon 05-03-2020 Source Swab Anterior nares Normal [facility] Comment on above: Performed By: #### I RCOV ####[facility] [place] [phone] Partial Thromboplastin Timeo n 05-03-2020 aPTT Coag (Bld) [Time] 31.3 s Normal 24.4-36.8 [facility] Comment on above: Performed By: #### P TT #### [facility] [address] [place] [address] Prothrombin Timeon 0 INR Coag (PPP) [Relative time] 0.9 {INR} Normal [facility] Comment on above: Performed By: #### P T #### [facility] [address] [place] [address] PT Coag (PPP) [Time] 11.9 s Low 12.3-14.9 [facility] Comment on above: Performed By: #### P T #### [facility] [address] [place] [address] Type and Screen Capture 3 sc rn cellon 05-03-2020 Type and Screen Capture 3 scrn cell PATIENT: JOSHUA Doss LOC: [facility] BILL# : [id number] : 1970 SEX: F ORDERED BY: STEPHANIE Harrison ORDERED : 05/03/2020 14:14 COLLECTED: 05/03/2020 14:14 ORDER : [id number] RECEIVED : 05/03/2020 19:43 TEST NAME RESULT UNITS RANGES ABN FL ST ABORH Capture O POS F Antibody 3 Cell Scrn Captu NEG F Normal [facility] Comment on above: Performed By: #### T S3C #### [facility] [address] [place] [address] Established Visit (Orthopaed ic Surgery)on 04-26-2020 Established Visit (Orthopaedic Surgery) Diagnoses/Problems Assessed Shoulder pain (719.41) (M25.519) Chief Complaint Right shoulder pain, injection History of Present Illness Lexi returns to clinic today for right shoulder pain. She has an extensive history of right shoulder pain with rotator cuff surgery performed on approximately June 05 by another provider. She was seen last by Dr. De Luna on April 17, 2020 in which MRIs were reviewed and revealed bicipital tendinopathy and rotator cuff tendinopathy without evidence of retear. It was his impression that most of her pain was coming from the subacromial origin. Dr. De Luna in the patient had a phone call discussion in which the patient believes they discussed trying a subacromial injection and following up if she does not get better with possible diagnostic arthroscopy with possible biceps tenodesis. She also has been seeing a spine surgeon for her cervical spine issues in which they have recommended fusion of C5. Her shoulder pain is difficult to pinpoint the exact pain however it is mostly located on the superior anterior aspect of the shoulder. She states that she has pain at all times even without using the shoulder. Patient's self reported past medical history, medications, allergies, surgical history, family and social history as well as a 10 point review of systems has been documented in the new patient intake form and scanned into the patient's electronic medical record. Pertinent findings are documented in the HPI. Physical Examination Findings: Constitutional: Appears well-developed and well-nourished. Head: Normocephalic and atraumatic. Eyes: Pupils are equal and round. Cardiovascular: Intact distal pulses. Respiratory: Effort normal. No respiratory distress. Neurologic: Alert and oriented to person, place, and time. Skin: Skin is warm and dry. Hematologic / Lymphatic: No lymphedema, lymphangitis. Psychiatric: normal mood and affect. Behavior is normal. Musculoskeletal: Right shoulder with well-healed surgical incision over the anterior aspect of the shoulder. She has significant pain with forward arm elevation and abduction. Positive impingement sign. She has tenderness over the insertion of the biceps. No pain with resisted elbow flexion. Weatherization Specialist strength 5/5 Elbow flexion 5/5. Shoulder abduction 4/5, external rotation 5/5, internal rotation 5/5. Elevation 150 degrees abduction 90 degrees with reprecipitated pain. Pain with cross body adduction Impression: Right shoulder pain Plan: It was discussed again in detail with Dr. De Luna in the patient different courses for treatment options. She presents to my clinic today for a steroid injection. We have had a long discussion of different treatment options. We have decided today for a subacromial cortisone injection. Patient is in agreement. She will call our office if she does not get symptomatic relief following the injection in 1 to 2 weeks. Procedure Note: Risks and benefits of steroid injection discussed with patient. Patient expresses understanding of risks and elects to proceed. Verbal consent was provided and a time out procedure was performed to confirm the appropriate injection location. Using aseptic technique 1cc (40 mg) triamcinolone (Kenalog) and 4cc of 1% lidocaine were injected into the right shoulder, subacromial, posterior approach. The patient tolerated the injection well. Post injection instructions were provided. Chiara Espinosa PA-C Department of Orthopaedic Surgery [facility] Dictation performed with the use of voice recognition software. Syntax and grammatical errors may exist. Active Problems Problems Shoulder pain (719.41) (M25.519) Signatures Electronically signed by : Chiara Espinosa PA-C; Apr 26 2020 3:56PM EST (Author) Normal [facility] Initial Visit (Orthopaedic S urgery)on 04-17-2020 Initial Visit (Orthopaedic Surgery) Diagnoses/Problems Assessed Shoulder pain (719.41) (M25.519) Patient Discussion/Summary Patient has right shoulder pain of uncertain origin. Exam today is suggestive of subacromial origin of pain. MRI scan shows tendinopathy but not an obvious tear. I recommended having her MRI scans evaluated by the musculoskeletal radiologist at [facility] I will call the patient back with recommendation for further evaluation or treatment once I have reviewed the scan with them. If the patient does not hear from us by Wednesday she is to call back. This was dictated using voice recognition software and not corrected for grammatical or spelling errors. Provider Impressions Right shoulder pain Chief Complaint RIGHT SHOULDER PAIN/ NK History of Present IllnessPatient has complex history of cervical spine and shoulder pain. She had so shoulder surgery in June on the right shoulder, which was an open procedure apparently a subacromial decompression and rotator cuff repair although the operative note is not available. Patient has continued pain in her shoulder and neck and down her arm into her hand disruptive of her sleep and worse with elevation of her right arm. She has had an MRI scan since the surgery the report is available. Review of Systems Unless noted in the HPI all other systems have been reviewed and are negative for complaint. Active Problems Problems Shoulder pain (719.41) (M25.519) Physical Exam The patient is pleasant and cooperative. The patient is alert and oriented 3. Auditory function is intact. The patient is a good historian. The patient is not in acute distress. Eye exam significant for nonicteric sclera, intact ocular muscle movement. Breathing is rhythmic symmetric and nonlabored. Patient is very good cervical range of motion and extension and rotation does not reproduce her pain into her right arm. Healed scar over the anterior aspect of the shoulder and some else atrophy of the anterior deltoid radial pulse is easily palpable she has brisk capillary refill her light touch sensation is grossly intact. Weatherization Specialist strength is 5/5 elbow flexion 5/5 shoulder abduction 4/5 external rotation 5/5 internal rotation 5/5. Passive range of motion of the right shoulder elevation 150 external rotation in abduction 90 internal rotation in abduction 45. Pain at extremes of range of motion pain on resisted abduction. Negative apprehension. Results/Data Radiologist's reading of the MRI scan was significant for bicipital tendinopathy and rotator cuff tendinopathy without evidence of re-tear. I reviewed the scans and they show what appears to be tendinopathy of the supraspinatus without obvious tear. Scans are of moderate quality. Signatures Electronically signed by : Lester De Luna MD; Apr 17 2020 4:45PM EST (Author) [email or web address] Vital Signs Date Time Vital Sign Value Performing Clinician Facility 12-12-2021 10:43-0400 Body weight 97.52 kg Gayle Washington MD Work Phone: [facility] 12-12-2021 10:43-0400 Diastolic blood pressure 87 mm[Hg] Gayle Washington MD Work Phone: [facility] 12-12-2021 10:43-0400 Heart rate 88 /min Gayle Washington MD Work Phone: [facility] 12-12-2021 10:43-0400 Systolic blood pressure 125 mm[Hg] Gayle Washington MD Work Phone: [facility] 10-14-2021 10:30-0400 Diastolic blood pressure 80 mm[Hg] Emmett Brunner Other [facility] Other 10-14-2021 10:30-0400 SaO2% (BldA) [Mass fraction] 98 % Emmett Brunner Other [facility] Other 10-14-2021 10:30-0400 Systolic blood pressure 130 mm[Hg] Emmettarmani Brunner Other [facility] Other 07-01-2021 15:30-0500 Body weight 94.62 kg Letty Wesley Other [facility] Other 07-01-2021 15:30-0500 Diastolic blood pressure 78 mm[Hg] Letty Wesley Other [facility] Other 07-01-2021 15:30-0500 Respiratory rate 18 /min Letty Wesley Other [facility] Other 07-01-2021 15:30-0500 SaO2% (BldA) [Mass fraction] 98 % Letty Wesley Other [facility] Other 07-01-2021 15:30-0500 Systolic blood pressure 118 mm[Hg] Letty Wesley Other [facility] Other 06-18-2021 15:45-0500 Diastolic blood pressure 90 mm[Hg] Emmettarmani Brunner Other [facility] Other 06-18-2021 15:45-0500 SaO2% (BldA) [Mass fraction] 97 % Emmettarmani Brunner Other [facility] Other 06-18-2021 15:45-0500 Systolic blood pressure 122 mm[Hg] Emmett Brunner Other [facility] Other 05-15-2021 17:30-0500 Body weight 92.53 kg Emmett Brunner Other [facility] Other 05-15-2021 17:30-0500 Diastolic blood pressure 80 mm[Hg] Emmett Brunner Other [facility] Other 05-15-2021 17:30-0500 Systolic blood pressure 130 mm[Hg] Emmett Brunner Other [facility] Other 04-02-2021 14:30-0400 Body weight 92.63 kg Emmett Brunner Other [facility] Other 04-02-2021 14:30-0400 Diastolic blood pressure 88 mm[Hg] Emmett Brunner Other [facility] Other 04-02-2021 14:30-0400 SaO2% (BldA) [Mass fraction] 98 % Emmett Brunner Other [facility] Other 04-02-2021 14:30-0400 Systolic blood pressure 140 mm[Hg] Emmett Brunner Other [facility] Other Encounters Encounter Date Encounter Type Care Provider Facility Start: 09-13-2023 End: 09-14-2023 ambulatory NICOLE Kat[facility] Start: 09-13-2023 Encounter for other preprocedural examination [facility] Start: 09-13-2023 End: 09-13-2023 Subsequent hospital visit by physician [facility] Comment on above: Flatulence, eructati on and gas pain Start: 07-26-2023 End: 07-26-2023 ambulatory KIMBERLEY BARAJASE Not Available Start: 06-22-2023 End: 06-22-2023 ambulatory SOLITARIO GARCÍA [facility] Start: 06-18-2023 End: 06-18-2023 ambulatory KIMBERLEY G EDWIGE Not Available Start: 05-11-2023 End: 05-12-2023 ambulatory JESSIE REID Not Available Start: 04-27-2023 End: 04-27-2023 ambulatory SOLITARIO RICKY [facility] Start: 04-07-2023 ambulatory Gayle Washington MD Work Phone: Rheumatology Comment on above: Fax info Start: 02-10-2023 End: 02-10-2023 ambulatory ELODIA [facility] Start: 01-25-2023 End: 01-25-2023 ambulatory DALE HUTCHISON [facility] Start: 12-01-2022 End: 12-02-2022 ambulatory ELODIA [facility] Start: 10-16-2022 Encounter for preprocedural cardiovascular examination DR ULISES TIM [facility] Start: 10-16-2022 Encounter for preprocedural laboratory examination DR ULISES TIM [facility] Start: 10-13-2022 End: 10-13-[address] ULISES TIM Facility:[facility] Start: 10-07-2022 End: 10-08-[address] ULISES TIM Facility:[facility] Start: 10-07-2022 End: 10-08-2022 Encounter for preprocedural cardiovascular examination DR ULISES TIM Facility:[facility] Start: 07-23-2022 End: 07-24-2022 ambulatory BEN MONROE . Facility:[facility] Start: 06-11-2022 End: 06-12-[address] DOCTOR DENTON Facility:[facility] Start: 05-18-2022 Get Medical Advice Gayle Washington MD Work Phone: Rheumatology Comment on above: med refilled Start: 04-16-2022 End: 04-17-[address] DOCTOR DENTON Facility:[facility] Start: 04-09-2022 End: 04-10-[address] DOCTOR DENTON Facility:H1 Start: 01-27-2022 End: 01-27-[address] DOCTOR DENTON Facility:H1 Start: 01-22-2022 End: 01-23-[address] RACHEL STOCK . Facility:H1 Start: 01-01-2022 End: 07-01-2022 ambulatory BEN MONROE . Facility:H1 Start: 12-17-2021 Telephone encounter Gayle jeffries MD Work Phone: Rheumatology Comment on above: Results Start: 12-16-2021 End: 12-16-[address] RACHEL STOCK . Facility:[facility]1 Start: 12-12-2021 Telephone encounter Emmett Kannan [facility] Start: 12-12-2021 End: 12-13-2021 ambulatory KIMBERLEY GIBBONS [facility] Other Start: 12-12-2021 End: 12-12-2021 Patient encounter procedure Gayle Washington MD Work Phone: Rheumatology Comment on above: Secondary osteoarthr itis of multiple sites (Primary Dx); Vitamin B12 deficiency; Hyperuricemia; Chronic pain of both knees; Chronic right shoulder pain; Elbow pain, left; Chronic hip pain, bilateral; Chronic bilateral low back pain with bilateral sciatica; Cervicalgia; Bilateral hand pain; Vitamin D deficiency; Elevated C-reactive protein (CRP); Chronic pain syndrome Start: 12-08-2021 Telephone encounter Gayle jeffries MD Work Phone: Rheumatology Comment on above: Appointment Start: 11-18-2021 End: 11-19-[address] RACHEL STOCK . Facility:H1 Start: 10-29-2021 Chart Update Cristobal miller Work Phone: [id number] Work Phone: Start: 10-14-2021 End: 10-14-2021 ambulatory Emmett Kannan Other Hum Other Start: 10-14-2021 Patient encounter procedure Emmett Brunner [facility] Start: 09-23-2021 End: 09-23-2021 ambulatory Emmett Bartonky Other Hum Other Start: 09-23-2021 Telephone encounter Emmett Brunner [facility] Start: 07-01-2021 End: 07-01-2021 ambulatory Letty Olson Other Hum Other Start: 07-01-2021 Office outpatient vi sit 25 minutes Lettyra Chiangz [facility] Start: 06-26-2021 (Procedure) Short Emmett Brunner [facility] Start: 06-26-2021 End: 06-26-2021 ambulatory Emmett Brunner Other [facility] Other Start: 06-18-2021 End: 06-18-2021 ambulatory Emmett Brunner Other Hum Other Start: 06-18-2021 Office outpatient vi sit 25 minutes Emmett Kannan [facility] Start: 06-18-2021 Telephone encounter Emmett Brunner [facility] Start: 06-04-2021 End: 06-04-2021 Subsequent hospital visit by physician Christina [facility] Comment on above: Chronic hip pain, bi lateral [M25.551, M25.552, G89.29] Start: 05-21-2021 (Procedure) Short Emmett Brunner [facility] Start: 05-21-2021 End: 05-21-2021 ambulatory Emmett Brunner Other Hum Other Start: 05-15-2021 End: 05-15-2021 ambulatory Emmett Brunner Other Hum Other Start: 05-15-2021 Office outpatient vi sit 25 minutes Emmett Kannan [facility] Start: 04-30-2021 (Procedure) Short Emmett Brunner [facility] Start: 04-16-2021 (Procedure) Short Emmett Kannan [facility] Start: 04-02-2021 Office outpatient vi sit 25 minutes Emmett Kannan [facility] Start: 02-21-2021 Office outpatient vi sit 15 minutes Cristobal Tomas Work Phone: [id number] [facility] Work Phone: Start: 06-25-2020 End: 06-27-2020 Evaluation and management of inpatient FEMI López [facility] Start: 06-25-2020 End: 06-28-2020 Patient encounter procedure CRISTOBAL Hampton [facility] Start: 06-18-2020 End: 06-23-2020 Patient encounter procedure CRISTOBAL Hampton [facility] Start: 05-09-2020 End: 05-09-2020 Patient encounter procedure FEMI López [facility] Procedures Date Procedure Procedure Detail Performing Clinician Start: 09-13-2023 Assay of gammaglobul in iga igd igg igm each Nicole R Baljit [employer] - [employer]MI[employer] Work Phone: Start: 06-04-2021 Radex hips bilateral with pelvis minimum 5 views Gayle Washington MD Work Phone: Start: 06-17-2020 Mammography Gayle jeffries MD Work Phone: Start: 06-09-2018 Lipid 1996 panel - S willian or Plasma Gayle Washington MD Work Phone: Plan of Treatment Date Care Activity Detail Author Start: 12-12-2024 DIABETES SCREEN DIABETES SCREEN [facility] Start: 12-12-2024 Diabetes Screening Diabetes Screening [facility] Start: 07-01-2024 Screening for malignant neoplasm of breast Breast cancer screen [facility] Start: 02-03-2024 End: 02-03-2024 Admission to same day surgery center 02/03/2024 8:45 AM EDT - 02/03/2024 9:05 AM EDT Surgery [facility] [address] [place] [address] Nancy Durand MD [address] [place] [address] ESOPHAGOGASTRODUODENOSCOPY [facility] Comment on above: ESOPHAGOGASTRODUODENOSCOPY Start: 02-03-2024 End: 02-03-2024 Esophagogastroduodenoscopy transoral diagnostic ESOPHAGOGASTRODUODENOSCOPY Chronic GERD 02/03/2024 8:45 AM EDT [facility] Start: 02-03-2024 Subsequent hospital visit by physician 02/03/2024 8:45 AM EDT Hospital Encounter [facility] [place] [address] [place] [address] Nancy Durand MD [address] [place] [id number] [facility] Start: 07-05-2023 Annual Wellness Visit (Medicare Advantage) Annual Wellness Visit (Medicare Advantage) [facility] Start: 06-09-2023 Lipid 1996 panel - Serum or Plasma Lipid Screening [facility] Start: 06-09-2023 LIPID SCREEN LIPID SCREEN [facility] Start: 03-05-2023 COVID-19 Vaccine ( season) COVID-19 Vaccine ( season) [facility] Start: 03-05-2023 Influenza vaccination [facility] Start: 02-02-2023 Influenza vaccination Flu vaccine (#1) [facility] Start: 07-05-2022 DEPRESSION ASSESSMENT DEPRESSION ASSESSMENT [facility] Start: 03-19-2022 End: 12-17-2022 25-hydroxyvitamin D3 [Mass/volume] in Serum or Plasma VITAMIN D 25 HYDROXY Lab Routine Vitamin D deficiency Expected: 03/19/2022 (Approximate), Expires: 12/17/2022 [facility] Work Phone: Comment on above: Expected: 03/19/2022 (Approximate), Expi res: 12/17/2022 Start: 03-05-2022 Influenza vaccination [facility] Start: 08-21-2021 COVID-19 VACCINE (2 - Booster for Barbara series) COVID-19 VACCINE (2 - Booster for Barbara series) [facility] Start: 07-05-2021 DEPRESSION ASSESSMENT DEPRESSION ASSESSMENT [facility] Start: 06-17-2021 Mammography [facility] Start: 2018 Shingles vaccine (1 of 2) Shingles vaccine (1 of 2) [facility] Start: 2018 SHINGRIX VACCINE (1 of 2) SHINGRIX VACCINE (1 of 2) [facility] Start: 2013 COLOGUARD (FIT-DNA) COLOGUARD (FIT-DNA) [facility] Start: 2013 Colonoscopy COLONOSCOPY [facility] Start: 2013 COLORECTAL CANCER SCREENING COLORECTAL CANCER SCREENING [facility] Start: [address] COLONOGRAPHY [facility] Start: 2013 FECAL OCCULT BLOOD FECAL OCCULT BLOOD [facility] Start: 2013 Screening for malignant neoplasm of colon [facility] Start: 2013 SIGMOIDOSCOPY SIGMOIDOSCOPY [facility] Start: 1998 HPV TESTING HPV TESTING [facility] Start: 1989 PAP TESTING PAP TESTING [facility] Start: 1987 DTaP/Tdap/Td vaccine (1 - Tdap) DTaP/Tdap/Td vaccine (1 - Tdap) [facility] Start: 1987 Urine microalbumin profile [facility] Start: 1986 Hepatitis C screening Hepatitis C screen [facility] [employer] Start: 1986 HIV SCREENING HIV SCREENING [facility] Start: 1983 HIV screening HIV screen [facility] Start: 1980 Adult depression screening assessment DEPRESSION SCREENING [facility] Start: 1980 Depression Screen Depression Screen [facility] Start: 1978 Lipid panel Lipids [facility] Start: 1974 PNEUMOCOCCAL (1 - PCV) PNEUMOCOCCAL (1 - PCV) [facility] Start: 1974 Pneumococcal 0-64 years Vaccine (1 - PCV) Pneumococcal 0-64 years Vaccine (1 - PCV) [facility] Start: 1974 Pneumococcal vaccination Pneumococcal Vaccine (1 - PCV) [facility] Start: 1968 HEPATITIS B (1 of 3 - 3-dose series) HEPATITIS B (1 of 3 - 3-dose series) [facility] Start: 1968 Hepatitis B Vaccine (1 of 3 - 3-dose series) Hepatitis B Vaccine (1 of 3 - 3-dose series) [facility] Celiac Disease Panel Celiac Dise ase Panel Lab Routine Flatulence, eructation and gas pain 09/13/2023 4:20 PM EDT [facility] End: 09-13-2023 H. pylori antigen [facility] Comment on above: Once for 1 Occurrences starting 09/13/19 24 until 09/13/2023 End: 09-13-2023 H. Pylori Antigen, Stool H. Pylori Antigen, Stool Lab Routine Flatulence, eructation and gas pain 1 Occurrences starting 09/13/2023 until 09/13/2023 [employer] Work Phone: Comment on above: 1 Occurrences starting 09/13/2023 until 09/13/2023 Immunizations Immunization Date Immunization Notes Care Provider Sabina brumfield 04-06-2019 influenza, injectabl e, quadrivalent, preservative free Cristobal Tomas Work Phone: [id number] [id number] Work Phone: 04-06-2019 influenza virus vaccine, unspecified formulation Gayle Washington MD Work Phone: [facility] 05-15-2016 seasonal influenza, intradermal, preservative free Cristobal Tomas Work Phone: [employer] Payers Date Payer Category Payer Unknown 2021 Unknown [employer] X [id number] 2021-Present [phone] [address] [address] [place] [address] HMO [id number] 2020 Private Health Insurance [facility] [employer] [id number] 2020-2021 [address] [address] [place] [address] PPO [id number] 2018 Unknown [id number] 2017 Unknown [id number] 1968 Unknown [id number] 2.16.840.1.522716.3.579.2 .182 1968 Unknown [id number] 2.16.840.1.232875.3.579.2 .182 1968 Unknown [id number] 2.16.840.1.007055.3.579.2 .182 1968 Unknown [id number] 2.16.840.1.344203.3.579.2 .182 1968 Unknown [id number] 2.16.840.1.154823.3.579.2 .182 1968 Unknown [id number] 2.16.840.1.816739.3.579.2 .593 1968 Unknown [id number] 2.16.840.1.166652.3.579.2 .593 1968 Unknown [id number] 2.16.840.1.338434.3.579.2 .593 1968 Unknown [id number] 2.16.840.1.841792.3.579.2 .593 1968 Unknown [id number] 2.16.840.1.850414.3.579.2 .593 1968 Unknown [id number] 2.16.840.1.054970.3.579.2 .593 1968 Unknown [id number] 2.16.840.1.022170.3.579.2 .593 1968 Unknown [id number] 2.16.840.1.429513.3.579.2 .593 1968 Unknown [id number] 2.16.840.1.667998.3.579.2 .593 1968 Unknown [id number] 2.16.840.1.829863.3.579.2 .593 1968 Unknown [id number] 2.16.840.1.561805.3.579.2 .593 1968 Unknown [id number] 2.16.840.1.002724.3.579.2 .1259 1968 Unknown [id number] 2.16.840.1.132451.3.579.2 .1259 1968 Unknown [id number] 2.16.840.1.439414.3.579.2 .1259 1968 Unknown [id number] 2.16.840.1.660247.3.579.2 .1259 1968 Unknown [id number] 2.16.840.1.619512.3.579.2 .1259 1968 Unknown [id number] 2.16.840.1.767700.3.579.2 .173 1968 Unknown [id number] 2.16.840.1.707207.3.579.2 .173 Social History Date Type Detail Facility Start: 06-04-2021 End: 09-08-2023 Tobacco smoking status INIS Smokes tobacco daily [facility] History of tobacco use Cigarette Smoker [facility] Start: 05-03-2020 End: 06-04-2021 Cigarettes smoked current (pack per day) - Reported 1 [facility] Start: 06-04-2021 End: 09-08-2023 Tobacco use and exposure Smokeless tobacco non-user [facility] Start: 12-12-2021 End: 09-08-2023 Alcohol intake Current drinker of alcohol (finding) [facility] Start: 06-04-2021 History SDOH Alcohol Comment rarely. [facility] Start: 1970 Sex Assigned At Not on file [facility] Start: 11-29-2021 End: 12-09-2021 Exposure to SARS-CoV-2 (event) Unable to assess [facility] Start: 05-03-2020 End: 06-05-2021 Sex Assigned At Hum Other Start: 05-05-2021 End: 06-04-2021 Exposure to SARS-CoV-2 (event) Not sure [facility] National Score (1-100), lower number is lower risk 95 [facility] (I/We) worried whether (my/our) food would run out before (I/we) got money to buy more. Never true [facility] [employer] Start: 09-08-2023 Tobacco Comment intermittently since 15 [facility] Start: 05-03-2020 Alcohol Comment hardly ever [facility] Medical Equipment Procedure Code Equipment Code Equipment Original Text Equipment Identifier Dates Impl [place] Spine R michael [id number] Mm 55 Mm [id number] Start: 06-25-2020 Graft Spnl W11xh 7kx52te Corticocancellous Lord Triad - [id number] Start: 05-09-2020 Plate Spnl L28mm Antr Cerv 1 Lev Translational Vansant Acp [id number] Start: 05-09-2020 Screw Spnl L13mm Dia4mm Ant Cerv [facility] Ang Compr Vansant Acp [id number] Start: 05-09-2020 Connector Spnl C rss Lo Prof Adj Reline-O 5.5 X 45-65 Mm [id number] Start: 06-25-2020 Screw Spnl Dia5. 5mm Opn Tulip Roselyn Reline [id number] Start: 06-25-2020 Graft Bne Sub 30 cc 1.7-10mm Canc Chip Morselized Frz Dry - [id number] Start: 06-25-2020 Graft Bne Sub 5m l Mtrx Cellular Osteocel + - [id number] Start: 06-25-2020 Spacer Spnl L W1 [id number] 4deg Post Lum Intbdy Fus Lord [id number] Start: 06-25-2020 Screw Spnl L50mm Dia7.5mm Post Thoracolumbosacral Polyax 2s [id number] Start: 06-25-2020 Screw Spnl L55mm Od6mm 2s Polyax Reline O [id number] Start: 06-25-2020 Alena Spnl Lordtc 5.5x40 Mm Ti Reline-O [id number] Start: 06-25-2020 Clinical Notes 04-02-2021 to 06-22-2023 Telephone Encounter - Gayle Washington MD - 04/07/2023 1:34 PM EDTTelephone Encounter - Nadine Bruce LPN - 04/07/2023 12:34 PM EDTTelephone Encounter - Gayle Washington MD - 05/18/2022 5:45 PM EST Note Date & Type Note Facility 06-22-2023 Note Attestation signed by Jessie Reid MD at 06/22/2023 12:49 PM I personally saw and examined the patient on the same date of service as resident/fellow . I discussed the findings and therapeutic plan with the resident/fellow . I agree with the documentation, except for any edits/updates below. Teaching Physician's Revisions: 53 YO F with sever fibromyalgia, she has tried most medications used for fibro with no improvement or had to stop due to side effects Recommend tapering off NSAIDs Recommend intense PT and pain management evaluation We reviewed xrays of hand that she provided on CD, no features of inflammatory arthritis, mild joint space narrowing and subchondral sclerosis noted on fist C[facility] joints [facility] Follow-up Patient Visit Subjective Chief Complaint: Follow-up ( ) Lexi Garcia is an 53 y.o. female with fibromyalgia, chronic pain syndrome, anxiety, depression, GERD, osteopenia on DEXA May 2023, OA of multiple sites, B/L CTS s/p B/L release in 2016, R rotator cuff tear s/p repair with screw placed in 2018, chronic neck pain s/p C6-7 plate removal then C5 and C6 plates in 2019, chronic back pain with herniated disc s/p C6-7 fusion then L5 lumbar disc surgery in 2019, R knee ACL tear s/p repair in 2019, history of vitamin D deficiency, reported history of possible gout attacks in great toe. Lexi Garcia presents to the clinic for follow up. Medication regimen: Celebrex 400 mg BID, Flexeril 10 mg BID PRN, Desvenlafaxine 100 mg every day, OTC Tylenol, Percocet 5-325 mg Q4H PRN (only PRN, seldomly used, leftover from surgery in 2020). Vitamin D and calcium supplementation. Patient presents for follow-up today. Since last visit, Celebrex and Flexeril increases have helped pain. She has not needed Percocet PRN since last visit. Patient is tolerating medications well, without significant side effects and with some symptom control on current regimen. She brought disability paperwork for each physician she sees to fill out, she states PCP already filled out functional capacity items based on PT in past and no need for OT functional capacity referral. Form filled out by attending and handed back to patient. She has not seen Pain Management since last visit, discussed importance of seeing them for multimodal pain control. Today, patient reports pain that is 5/10 in severity, was 5 last visit. Localized to low back (most of pain, shooting/stabbing pain radiates to R hip), wrists and forearms with hx of CTS s/p surgery, R>L shoulders, neck, L > R knees. She has been noting some RLS symptoms at night. AM stiffness lasts 1-2 hrs (was 2-3 last visit), on average daily. Denies joint erythema, swelling, warmth. Comprehensive History: Patient Active Problem List Diagnosis Chest pain, atypical Benign essential HTN HOFFMAN (dyspnea on exertion) Fibromyalgia Elevated d-dimer Mixed hyperlipidemia GERD without esophagitis Orthopnea Sleep disturbances Abnormal nuclear stress test Unstable angina (CMS/HCC) Coronary artery disease involving [place] coronary artery of [place] heart without angina pectoris Degenerative joint disease involving multiple joints Past Medical History: Diagnosis Date ACL tear R knee, s/p repair in 2019 Anxiety Carpal tunnel syndrome, bilateral s/p B/L release in 2017 Chronic low back pain herniated disc s/p L5 lumbar disc surgery in 2019 Chronic neck pain s/p C6-7 fusion, s/p C6-7 plate removal then C5 and C6 plates in 2019 Chronic pain disorder Depression Factor V Leiden (CMS/HCC) Fibromyalgia, primary GERD (gastroesophageal reflux disease) Hyperlipidemia Hypertension Osteoarthritis Osteopenia Prediabetes Retinal hole of right eye Rotator cuff syndrome R shoulder, s/p repair with screw placed in 2018 Tobacco dependence in remission Vitamin D deficiency Past Surgical History: Procedure Laterality Date ANTERIOR CRUCIATE LIGAMENT REPAIR CARPAL TUNNEL RELEASE Bilateral 2017 CERVICAL FUSION CHOLECYSTECTOMY FOOT FRACTURE SURGERY Right in 6th grade INCONTINENCE SURGERY INNER EAR SURGERY reports multiple ear surgeries LUMBAR DISC SURGERY PLANTAR FASCIA SURGERY Right ROTATOR CUFF REPAIR Right TOTAL ABDOMINAL HYSTERECTOMY W/ BILATERAL SALPINGOOPHORECTOMY 2018 complicated by dropped bladder s/p sling Allergies Allergen Reactions Ibuprofen Diarrhea, Other and Unknown Upset stomach Tramadol Unknown and Nausea Only Upset stomach Medication list: Current Outpatient Medications Medication Sig Dispense Refill acetaminophen (Tylenol) 325 mg tablet Take 650 mg by mouth every 6 (six) hours if needed. acyclovir (Zovirax) 400 mg tablet amLODIPine (Norvasc) 10 mg tablet Take 10 mg by mouth in the morning. aspirin (more content not included)... [facility] 04-27-2023 Note Attestation signed by Jessie Reid MD at 04/27/2023 2:34 PM I personally saw and examined the patient on the same date of service as resident/fellow . I discussed the findings and therapeutic plan with the resident/fellow . I agree with the documentation, except for any edits/updates below. Teaching Physician's Revisions: 53 YO F with long history of diffuse pain [facility], previously followed by [facility] Exam was remarkable for diffuse tenderness consistent with fibromyalgia, she reports episodic swelling in hands and feet, no synovitis was noted on exam today Will do further workup as below We discussed risks of NSAIDs including but not limited to: kidney impairment, GI ulcer/bleed, CV risk, etc. 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 female with fibromyalgia, chronic pain syndrome, anxiety, depression, GERD, OA of multiple sites, B/L CTS s/p B/L release in 2017, R rotator cuff tear s/p repair with screw placed in 2019, chronic neck pain s/p C6-7 plate removal then C5 and C6 plates in 2019, chronic back pain with herniated disc s/p C6-7 fusion then L5 lumbar disc surgery in 2019, R knee ACL tear s/p repair in 2020, history of vitamin D deficiency, reported history of possible gout attacks in great toe. Lexi Garcia presents to the clinic as a new patient, referred by PCP for the evaluation of joint pain. Medication regimen: Celebrex 200 mg BID, Flexeril 10 mg every day PRN (ran out months ago), Desvenlafaxine 100 mg every day, OTC Tylenol, Percocet 5-325 mg Q4H PRN (only PRN, seldomly used, leftover from surgery in 2019). Patient is also on calcium and vitamin D supplementation. Patient presents as a new patient to establish care since insurance no longer covers former provider. She formerly saw [facility] with last visit in December 2021 per available records. She was diagnosed with fibromyalgia by former lens assistant on the basis of widespread MSK pain, fatigue, and unrefreshing sleep in the setting of multiple sites of chronic pain with largely negative work-up. For fibromyalgia, patient has tried the following medications: Lyrica (no response, reportedly caused RLS), Gabapentin (made her numb , reportedly caused RLS). She has not tried Cymbalta or Savella in the past but is currently on SNRI. She has hx of CSI in R shoulder, neck, low back. She has been following Pain Management but is in process with establishing new provider due to hers leaving practice. Today, patient reports joint pain that is 5/10 in severity. Several years of chronic pain localized to R>L shoulders, L elbow, neck, L > R knees, hips (R hip most of her pain), low back, wrists due to CTS. Reports that her pain can migrate and switch locations. She has residual numbness in hands after CTS release with dropping things, decreased information assoc strength. Reports sometimes she has swelling, redness, warmth for couple dayslocalized to hands, knees, back, legs, neck, and sometimes feet. AM stiffness lasts 2-3 hrs, on average daily. Interventions tried: Prednisone course for R hip (short term relief but note improvement in R hip, did not notice improvement anywhere else), OTC Tylenol, Celebrex (helps, wants to try increase), Mobic (dc'ed in favor of Celebrex), Flexeril (helpful but off for couple months), Biofreeze topical (helps), ice (helpful), TIFFANY bandages on knees (helps). Denies current joint erythema, swelling, warmth. Due to her back pain and surgery in 2019, she has not exercised much. Patient reports being diagnosed with osteopenia on DEXA a couple years ago, she is on calcium and vitamin D supplementation. She is due for repeat DEXA. Positive labs: Vit D insuff at 29.6, mildly elevated CRP at 1.4 in December 2021. Negative/normal labs: Negative [facility], RF, [facility], HLA-B27 in Jun 2021. Uric acid WNL, ESR WNL at 5 in December 2021 Imaging: Lumbar spine XR Jun 2022 = Lumbosacral fusion, near normal anatomic alignment, Grade I anterolisthesis, 6 mm, no change with flexion and extension. R shoulder XR Jun 2022 = normal glenohumeral joint space, post surgical changes of distal clavicle/AC joint, noted cervical plate screw fusion hardware. R hip XR Apr 2023 = diffuse osteopenia, narrowing of hip joints medially bilaterally, internal fixation of lower lumbar spine Family History: Father had OA and gout. Mother had OA. Sister has thyroid disorder. No other autoimmune diseases or arthritis known in the family. Social: Patient is retired/disability. Former smoker 1 ppd x 1 yr, quit in Mar 2023. No alcohol or drug use. Patient is , history of 1 miscarriage. Comprehensive History: Patient Active Proble (more content not included)... [facility] 04-07-2023 Note Reviewed recent lipi d profile 04/2023- improved but not at goal Previously Chol 304, Trig 222, HDL 58, LDL 205 Currently Chol 214, Trig 148, HDL 52 and LDL 214. Will add zetia to regime and repeat lipid level again in 2-3 months with liver function AST and ALT are both normal and ALK pHos slightly elevated at 163 from 128 last draw Elodia Oscar NP [facility]- [phone] Pager- [phone] Email- [email or web address] 04-07-2023 Miscellaneous Notes Notify patient medication sent as requested Thank you. Patient's request for medication is as follows: Requested Prescriptions Signed Prescriptions Disp Refills celecoxib (CELEBREX) 200 mg capsule 180 capsule 0 Sig: Take 1 capsule by mouth two times a day. cyclobenzaprine (FLEXERIL) 5 mg tablet 60 tablet 3 Sig: Take 1-2tab by mouth per day. May cause drowsiness Prescription(s) as above. Please process accordingly. Gayle Washington MD Most recent Rheumatology visit: 12/12/2021 (with Gayle Washington) Recent Office Visits - This Specialty 12/12/2021 Secondary osteoarthritis of multiple sites Rheumatology Gayle Washington MD 06/04/2021 Secondary osteoarthritis of multiple sites Rheumatology Gayle Washington MD Upcoming Rheumatology Appointments - Next 365 Days No appointments to display CBC: None on file in the last 6 months Vitamin D: None on file in the last 6 months LFT: None on file in the last 6 months Hepatic Function: Creatinine: None on file in the last 6 months ESR/CRP: None on file in the last 6 months Uric Acid: None on file in the last 6 months Open Standing (Multiple Instance) Lab Orders None Open Future (Single Instance) Lab Orders Expected Expires Ordered COMP METABOLIC PANEL [SQCMP] 10/05/22 10/06/23 10/05/22 Auth. provider: Gayle Washington MD Assoc. diagnoses: Elevated LFTs CBC [SQCBC] 10/05/22 10/06/23 10/05/22 Auth. provider: Gayle Washington MD Assoc. diagnoses: Anemia of chronic disease VITAMIN D 25 HYDROXY [SQVITD] 10/05/22 10/06/23 10/05/22 Auth. provider: Gayle Washington MD Assoc. diagnoses: Vitamin D deficiency VITAMIN B12 BLOOD [SQB12] 10/05/22 10/06/23 10/05/22 Auth. provider: Gayle Washington MD Assoc. diagnoses: Vitamin B12 deficiency SED RATE WESTERGREN [SQWSR] 10/05/22 10/06/23 10/05/22 Auth. provider: Gayle Washington MD Assoc. diagnoses: Elevated sed rate, Elevated C-reactive protein (CRP) C-REACTIVE PROTEIN (CRP) [SQCRP] 10/05/22 10/06/23 10/05/22 Auth. provider: Gayle Washington MD Assoc. diagnoses: Elevated sed rate, Elevated C-reactive protein (CRP) Chart notes faxed with confirmation. documented in this encounter [facility] 02-10-2023 Note Coronary artery dise ase is stable Continue GDMT- ASA, lipitor, toprol continue risk factor modifications- heart healthy diet, regular exercise as tolerated and continue all medications. Pt to have repeat lipid and lft levels drawn soon [facility] 02-10-2023 Note D/W pt that may need to see GI for further evaluation for other etiology of her chest pain and may be r/t GERD [facility] 02-10-2023 Note Currently stable [facility] 02-10-2023 Note Currently denied chest pain [facility] 02-10-2023 Note Continue lipitor 80 mg, lipid level well controlled currently [facility] 02-10-2023 Note Hypertension is stab le and well controlled at home Continue norvasc, toprol [facility] 02-10-2023 Note [facility] CARDIOLOGY PROGR ESS NOTE HPI: Lexi Garcia is a 52 y.o. female here for Follow-up (Pt is here for f/u heart cath) HPI: Currently pt states that chest pain and SOB has resolved and without any reoccurance. States that overall she feels better since starting current medications. Denied chest pain, HOFFMAN, orthopnea, palpitations, Rt hand N/T or weakness. Review of Systems Constitutional: Negative. Respiratory: Negative. Cardiovascular: Negative. Neurological: Negative. All other systems reviewed and are negative. Visit Vitals BP 134/88 (BP Location: Left arm, Patient Position: Sitting, BP Cuff Size: Adult) Pulse 84 Wt 99.3 kg (219 lb) SpO2 97% BMI 37.59 kg/m??? Smoking Status Every Day BSA 2.12 m??? Allergies Allergen Reactions Ibuprofen Diarrhea, Other and Unknown Upset stomach Tramadol Unknown and Nausea Only Upset stomach Medications: Current Outpatient Medications on File Prior to Visit Medication Sig Dispense Refill acetaminophen (Tylenol) 325 mg tablet Take 650 mg by mouth every 6 (six) hours if needed. acyclovir (Zovirax) 400 mg tablet amLODIPine (Norvasc) 10 mg tablet Take 10 mg by mouth in the morning. aspirin 81 mg EC tablet Take 81 mg by mouth in the morning. atorvastatin (Lipitor) 80 mg tablet Take 1 tablet (80 mg) by mouth in the morning. 90 tablet 3 celecoxib (CeleBREX) 200 mg capsule Take 200 mg by mouth twice a day. clonazePAM (KlonoPIN) 0.5 mg tablet Take 0.5 mg by mouth if needed in the morning and at bedtime. cyclobenzaprine (Flexeril) 10 mg tablet Take 10 mg by mouth 1 (one) time each day. desvenlafaxine (Pristiq) 100 mg 24 hr tablet fluticasone (Flonase) 50 mcg/actuation nasal spray Administer 1 spray into affected nostril(s) in the morning. lamoTRIgine (LaMICtal) 200 mg tablet Take 300 mg by mouth in the morning. metoprolol succinate XL (Toprol-XL) 25 mg 24 hr tablet Take 1 tablet (25 mg) by mouth in the morning. Do not crush or chew. 90 tablet 3 multivitamin (Theragran-M) 9 mg iron-400 mcg tablet Take 1 tablet by mouth in the morning. oxyCODONE-acetaminophen (Percocet) 5-325 mg tablet Take 1 tablet by mouth every 4 (four) hours if needed. pantoprazole (ProtoNix) 40 mg EC tablet Take 1 tablet (40 mg) by mouth in the morning. Do not crush, chew, or split. 90 tablet 1 QUEtiapine (SEROquel) 400 mg tablet Take 400 mg by mouth at bedtime. No current facility-administered medications on file prior to visit. Physical Exam: Constitutional: Appearance: Normal appearance. Without apparent distress HENT: Head: Normocephalic and atraumatic. Nose: Nose normal. Mouth/Throat: Mouth: Mucous membranes are moist. Eyes: Extraocular Movements: Extraocular movements intact. Conjunctiva/sclera: Conjunctivae normal. Neck: Vascular: No JVD. Cardiovascular: Rate and Rhythm: Normal rate and regular rhythm. Pulses: B/L radial pulses 3+, Rt radial site C/D/I- well healed, no bruit, hematoma or ecchymosis noted Dorsalis pedis pulses are 3 on the right side and 3on the left side. Posterior tibial pulses are 3 on the right side and 3 on the left side. Heart sounds: Normal heart sounds, S1 normal and S2 normal. Pulmonary: Effort: Pulmonary effort is normal. Breath sounds: Normal breath sounds. Abdominal: General: Bowel sounds are normal. Palpations: Abdomen is soft. Musculoskeletal: General: Normal range of motion. Cervical back: Normal range of motion. Right lower leg: No edema. Left lower leg: No edema. Skin: General: Skin is warm and dry. Capillary Refill: Capillary refill takes less than 2 seconds. Neurological: General: No focal deficit present. Mental Status: She is alert and oriented to person, place, and time. Psychiatric: Mood and Affect: Mood normal. Behavior: Behavior normal. Thought Content: Thought content normal. Judgment: Judgment normal. Labs: 01/21/23 Component Ref Range & Units 2 wk ago Sodium 140 Potassium, Bld 4.3 Chloride 105 Glucose, Bld 123 BUN, Bld 12 Creatinine 1.08 WBC 7.7 Hemoglobin, Serum 15.1 Hematocrit 36.0 - 48.0 % 44.5 Platelets 237 Last lab values have been reviewed [facility]01/25/23 Heart cath Final Impressions: -Mild to moderate non obstructive CAD Recommendations: -Aspirin 81 mg daily and high intensity statin therapy -Optimization of medical management -Aggressive risk factor modification -Follow up with Cardiology as scheduled APPROACH: Right Radial Right Findings: HEMODYNAMICS: AO: 101/80 (90) mmHg LVEF: This was not assessed during today???s study CORONARY FINDINGS: LMCA - This vessel arises from the left coronary cusp and bifurcates into the left anterior descending and left circumflex coronary arteries. It is angiographically patent and without significant stenosis. LAD - There 40-50% stenosis in the mid portion of the vessel. Otherwise, the LAD is angiographically patent and without significant stenosis. LCX - (more content not included)... [facility] 02-10-2023 Note Review of Systems All other systems reviewed and are negative. [facility] 01-25-2023 Note Patient: Lexi suarez Procedure Information Date/Time: 01/25/23 0930 Procedures: Coronary angiography Left heart cath (Left) - Lt and CORS Location: [facility] GRAPHICS EDIT TECHNICIAN 3 / [facility] (Cath) Providers: Dale Hutchison MD Clinical information reviewed: Tobacco Allergies Meds Med Hx Surg Hx Fam Hx Soc Hx Physical Exam Airway Mallampati: II Cardiovascular Rhythm: regular Rate: normal Dental Pulmonary - normal exam Abdominal - normal exam Anesthesia Plan ASA 3 other (Conscious sedation) intravenous induction Anesthetic plan and risks discussed with patient. Use of blood products discussed with patient who. Plan discussed with attending. Additional Equipment Requests [facility] 01-13-2023 Note Noted reversible per fusion, and unstable angina with HOFFMAN therefore heart cath ordered No acute concerns noted on echocardiogram- normal LVSF, normal RV function and no significant valvular abnormalities [facility] 01-13-2023 Note Ordered heart cath [facility] 01-13-2023 Note Plan for cardiac cat h- orders placed Pt updated [facility] 01-13-2023 Note Continue statin [facility] 01-13-2023 Note Abnormal stress with reversible perfusion defect Will order cardiac cath to assess for any significant coronary stenosis that would correlate with her Unstable Angina symptoms. [facility] 01-13-2023 Note Continue meds [facility] 01-13-2023 Note Reviewed Echocardiog shabbir- 12/21/22 Normal LVSF- EF 59%, + LVH Normal RV size and function, normal Rt sided pressures Mild MR, no significant valvular abnormalities. Reviewed stress test and noted reversible ischemia of Circumflex area CTA chest 12/11/22- no pulm embolism noted. No acute concerns. Problem List Items Addressed This Visit Respiratory HOFFMAN (dyspnea on exertion) Noted reversible perfusion, and unstable angina with HOFFMAN therefore heart cath ordered No acute concerns noted on echocardiogram- normal LVSF, normal RV function and no significant valvular abnormalities Circulatory Abnormal nuclear stress test Ordered heart cath Unstable angina (CMS/HCC) - Primary Plan for cardiac cath- orders placed Pt updated Benign essential HTN Continue meds Other Chest pain, atypical Abnormal stress with reversible perfusion defect Will order cardiac cath to assess for any significant coronary stenosis that would correlate with her Unstable Angina symptoms. Mixed hyperlipidemia Continue statin Elodia Oscar OPERATING ROOM SPECIALIST Division of Cardiology, [facility]- [phone] Pager- [phone] Email- [email or web address] 12-01-2022 Note Sleep study referral [facility] 12-01-2022 Note + orthopnea and slee p disturbances will order sleep study [facility] 12-01-2022 Note Stop OTC nexium and start pantoprazole and f/u with PCP for further management [facility] 12-01-2022 Note Re-ordered CTA chest to r/o PE with elevated D Dimer, HOFFMAN and increased fatigue [facility] 12-01-2022 Note F/u with PCP for chr onic pain/myalgia issues [facility] 12-01-2022 Note Increased SOB on exe rtion, elevated D dimer- and PCP ordered CTA chest to r/o PE with known Factor - unknown if she is Carrier or active Echocardiogram ordered [facility] 12-01-2022 Note EKG today normal sin us rhythm- no acute concerns ASCVD- 22% risk of CVD, or 10 year risk of CVD with optimal risk factor medication= 1.2%; lifetime risk 50% Will obtain treadmill cardiolite stress test for ischemic evaluation and echocardiogram for evaluation of cardiac function/valvular function and Rt sided pressures Continue ASA and will add toprol today. Awaiting labs from KATHLEEN fernandez for lipid profile and liver function [facility] 12-01-2022 Note Hypertension is unco ntrolled 149/96 will add metoprolol to amlodipine 10 mg She is to take b/p at home and goal b/p 130/80 or less, keep a b/p log and bring to next appt. May benefit from tiffany I or Arb if renal function is normal [facility] 12-01-2022 Note [facility] CARDIOLOGY PROGR ESS NOTE HPI: Lexi Garcia is a 52 y.o. female here as new pt for chest pain, SOB, HTN, palpitations. Admit having factor - but not on anticoagulation- states she was tested r/t family h/o. Pt presents today as new pt for c/o lt/mid sternal chest pain with radiation to upper chest/shoulders, SOB, nausea and sweating. States chest pain occurs with rest and activity, lasts for about 10-15 min and resolves spontaneously. Admits over the last couple months she has increased episodes of chest pain at rest and with exertion, SOB with exertion and + Orthopnea. States she has had increased fatigue and activity intolerance over the last couple months. Admit occasional lightheadedness, dizziness- and occurs sometimes with turning over at night while lying down. States she had labs drawn at [facility] in [place] recently and PCP said most of the labs were abnormal, noted pre diabetic, and elevated cholesterol levels. Seen cardiology in [place] and was diagnosed with tachycardia. Currently she takes Baby ASA and amlodipine for HTN. PMH: HTN, Depression, anxiety, tachycardia, Factor , pre diabetes PSH: no h/o cardiac cath or surgery FMH: no early family history of cardiac dx, LA or sudden . Father- CAD at age 56yo, acromegaly; Mother- PAD, DM; Matenal uncle- valvular disease Social: Current smoker 1/2 ppd- x 25 years; Denied alcohol or illicit drug use. Review of Systems Constitutional: Negative. Respiratory: Positive for chest tightness and shortness of breath. + orthopnea Cardiovascular: Positive for chest pain. Gastrointestinal: Positive for vomiting. Acid reflux at night with occasional vomiting Genitourinary: Positive for flank pain. Neurological: Negative. Psychiatric/Behavioral: Positive for sleep disturbance. All other systems reviewed and are negative. Visit Vitals BP (!) 149/96 (BP Location: Left arm, Patient Position: Standing) Pulse 99 Resp 12 Ht 1.626 m (5' 4 ) Wt 101 kg (222 lb) BMI 38.11 kg/m??? Smoking Status Every Day BSA 2.14 m??? Allergies Allergen Reactions ??? Ibuprofen Diarrhea, Other and Unknown Upset stomach ??? Tramadol Unknown and Nausea Only Upset stomach Medications: Current Outpatient Medications on File Prior to Visit Medication Sig Dispense Refill ??? acetaminophen (Tylenol) 325 mg tablet Take 650 mg by mouth every 6 (six) hours if needed. ??? acyclovir (Zovirax) 400 mg tablet ??? amLODIPine (Norvasc) 10 mg tablet Take 10 mg by mouth in the morning. ??? aspirin 81 mg EC tablet Take 81 mg by mouth in the morning. ??? celecoxib (CeleBREX) 200 mg capsule Take 200 mg by mouth twice a day. ??? clonazePAM (KlonoPIN) 0.5 mg tablet Take 0.5 mg by mouth if needed in the morning and at bedtime. ??? cyclobenzaprine (Flexeril) 10 mg tablet ??? desvenlafaxine (Pristiq) 100 mg 24 hr tablet ??? fluticasone (Flonase) 50 mcg/actuation nasal spray Administer 1 spray into affected nostril(s) in the morning. ??? lamoTRIgine (LaMICtal) 200 mg tablet Take 300 mg by mouth in the morning. ??? multivitamin (Theragran-M) 9 mg iron-400 mcg tablet Take 1 tablet by mouth in the morning. ??? oxyCODONE-acetaminophen (Percocet) 5-325 mg tablet Take 1 tablet by mouth every 4 (four) hours if needed. ??? QUEtiapine (SEROquel) 400 mg tablet No current facility-administered medications on file prior to visit. Physical Exam: Constitutional: Appearance: Normal appearance. Without apparent distress, Obese HENT: Head: Normocephalic and atraumatic. Nose: Nose normal. Mouth/Throat: Mouth: Mucous membranes are moist. Eyes: Extraocular Movements: Extraocular movements intact. Conjunctiva/sclera: Conjunctivae normal. Neck: Vascular: No JVD. Cardiovascular: Rate and Rhythm: Normal rate and regular rhythm. Pulses: Dorsalis pedis pulses are 3 on the right side and 3on the left side. Posterior tibial pulses are 3 on the right side and 3 on the left side. Heart sounds: Normal heart sounds, S1 normal and S2 normal. Pulmonary: Effort: Pulmonary effort is normal. Breath sounds: Normal breath sounds. Abdominal: General: Bowel sounds are normal. Palpations: Abdomen is soft. Musculoskeletal: General: Normal range of motion. Cervical back: Normal range of motion. Right lower leg: No edema. Left lower leg: No edema. Skin: General: Skin is warm and dry. Capillary Refill: Capillary refill takes less than 2 seconds. Neurological: General: No focal deficit present. Mental Status: She is alert and oriented to person, place, and time. Psychiatric: Mood and Affect: Mood normal. Behavior: Behavior normal. Thought Content: Thought content normal. Judgment: Judgment normal. Labs: 11/03/22 CBC stable Addendum- D Dimer- 0.72- elevated normal is < 0.50 BUN 12, Cr 0.94- normal K+ 4.3 normal Liver function normal- ALP- 128, AST 22, ALT 27 TSH normal 2.29 Chol 304, Trig 222, HDL 58, LDL 205- elevated (more content not included)... [facility] 10-13-2022 Note OPERATIVE NOTE OPERATION DATE: 10/13/2022 PRIMARY CARE PHYSICIAN: Kimberley Gibbons D.O. SURGEON: Ulises Tim M.D. PREOPERATIVE DIAGNOSIS: Left buccal lesion. POSTOPERATIVE DIAGNOSIS: Left buccal lesion. PROCEDURE: Removal of left buccal lesion with primary closure. ANESTHESIA: General endotracheal. COMPLICATIONS: None. FINDINGS: A 10 x 3 mm exophytic lesion of the left buccal mucosal concerning for squamous cell carcinoma. INDICATIONS: This 52-year-old woman presented for evaluation of a left buccal lesion on examination. There was a lesion which appeared to have originated as an area of frequent biting, but there were exophytic and hyperkeratotic features concerning for a well differentiated squamous cell carcinoma. PROCEDURE: Patient identified in the holding area and taken back to the OR where she was placed in the supine position. After induction of general endotracheal anesthesia, the face was draped in a sterile fashion. A mouth gag was put in position and the cheek and tongue were retracted, exposing the lesion. Lidocaine 1% with 1:100,000 epinephrine was infiltrated around the base of the lesion and, after waiting time for hemostasis, the left cheek was prepped with Betadine. A Towner tip Bovie was then used to make an elliptical incision around the lesion, and dissection was carried out into the buccinator muscle until the lesion was completely removed. Hemostasis was then achieved with suction Bovie and the lesion was re-prepped with Betadine. The lesion was then closed with interrupted 5-0 Vicryl vertical mattress sutures. The patient was then awakened and taken to the recovery room in good condition. [facility] 10-07-2022 Note EXAM: XR CHEST 2 V HISTORY: Pre-surgery evaluation COMPARISON: None. TECHNIQUE: PA and lateral views of the chest. FINDINGS: The cardiomediastinal silhouette is normal. No focal consolidation is identified. There is no pneumothorax. No pleural effusion is noted. The osseous structures are intact. IMPRESSION: No acute cardiopulmonary process. Electronically authenticated by: JOSIAH WILKS Date: 2022-10-07 11:27 [facility] 07-23-2022 Note CONSULTATION CONSULTATION DATE: 07/23/2022 HISTORY OF PRESENT ILLNESS: This is a 52-year-old female who returns to the clinic for a six week follow up and x-ray review of her lumbar and right shoulder x-rays. Lumbar x-ray does reveal intact hardware and mild central end plate depressions, which are consistent with Schmorl's node formation. Right shoulder x-ray reveals hardware is intact, as well as intact glenohumeral and AC joint spaces. She is complaining of 6-7/10 pain today to her left neck and right anterior neck and occipital area. Activities that aggravate her pain are housework, bending, sitting and any physical activity. She does use ice and TENS unit, which do decrease her pain. She does do self massage in her neck region as well. She was last seen on 06/11/2022 which, at that time, I recommended physical therapy for cervical spasms, which the patient did not follow through. She does state she does home exercises and stretches on her own. Medications include Celebrex 100 mg b.i.d., Flexeril 10 mg q.h.s. and Pristiq. Patient's REVIEW OF SYSTEMS / PAST MEDICAL HISTORY / ALLERGIES and IMAGES have been reviewed and noted on the chart. PHYSICAL EXAM: VITAL SIGNS: Blood pressure 138/92, heart rate is 96. Temperature is 97. She is 5'4 , weighs 101 kg. GENERAL IMPRESSION: Pleasant, appropriate, no acute distress. FOCUSED EXAM - NECK: Range of motion is guarded in lateral rotation, left greater than right, as well as flexion/extension. Right splenius cervicis and splenius capitis spasm noted and left cervical trapezius spasm noted. No spinal axial pain upon compression of the cervical facets. MUSCULOSKELETAL: Bilateral upper extremities motor is 5/5 bilaterally. No vasomotor weakness noted. NEUROLOGICAL: Patchy hypoesthesia noted to right C6 and C7 distribution. Brachioradialis and triceps reflexes are +2 bilaterally. DIAGNOSIS: Bilateral cervical spasms, right shoulder pain, chronic lower back pain, history of surgical fusion. PLAN: We will preauthorize for bilateral cervical trigger point injections. In the meantime, she is to continue stretches, heat and self massage as discussed. Upon authorization, she will be brought back to the clinic for those injections. Patient does agree with this plan. [facility] 06-11-2022 Note CONSULTATION CONSULTATION DATE: 06/11/2022 HISTORY OF PRESENT ILLNESS: This is a 52-year-old female returning to the clinic for a two month follow up for neck and shoulder pain. Patient had radiofrequency ablation of her cervical spine in January of 2022. She was last seen on 04/16/2022 and received right side cervical trigger point injections. Her muscle relaxer was changed to Flexeril at that time, which she finds more beneficial. Patient did get short term relief from her trigger point injection, but states she feels like she is in a constant spasm in her neck. Her range of motion is decreased. She is also complaining of headaches which she feels stem from the base of her neck. She is also complaining of right shoulder pain which, in 2019, she had a rotator cuff repair. She is also having lower back pain as well. Medications include Celebrex 100 mg b.i.d., Seroquel, Lamictal and Flexeril 10 mg q.h.s. 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 Patient's REVIEW OF SYSTEMS / PAST MEDICAL HISTORY / ALLERGIES and IMAGES have been reviewed and they are noted on the chart. PHYSICAL EXAM: VITAL SIGNS: Blood pressure 145/87, heart rate is 105. Temperature is 97.5. She is 5'4 , weighs 99 kg. GENERAL APPEARANCE: Pleasant, appropriate, no acute distress. Strong smell of marijuana in the room. FOCUSED EXAM - NECK: Range of motion is guarded in lateral rotation and flexion/extension. Trigger point identified to right splenius capitis that does reproduce the patient's pain symptomatology. No spinal axial pain upon compression of the cervical facets. BACK: Range of motion is guarded in lateral rotation and flexion/extension. Spinal axial pain is reproduced upon compression along the lower lumbar facets of L2, L3 and L4, L5. Paravertebral muscles are taut. Home's point non-tender. Pain is non-radiating. MUSCULOSKELETAL: Right shoulder range of motion is intact in lateral raises and adduction/abduction. No crepitus palpated. Point tenderness along the anterior portion along the bicipital head sheath. Lower extremity: Patient walks unassisted. Muscle tone is adequate. Motor is 5/5 bilaterally. NEUROLOGICAL: Patient is cognitively intact. Radicular sensory is intact. Reflexes: Patellar are +2 bilaterally. DIAGNOSIS: Right shoulder pain, lower back pain, cervical spasm, cervical spondylosis. PLAN: Due to lack of imaging, we will obtain a right shoulder and lumbar x-ray. She was instructed to use Voltaren gel to her right shoulder. I did recommend and patient did agree to go to physical therapy for her cervical spasms 2-3 times a week for 4-6 weeks. She will be brought back in the clinic in six weeks' time for re-evaluation and to review her x-rays. [facility] 05-18-2022 Miscellaneous Notes Patient's request for medication is as follows: Requested Prescriptions Signed Prescriptions Disp Refills celecoxib (CELEBREX) 200 mg capsule 180 capsule 3 Sig: Take 1 capsule by mouth twice daily. Prescription(s) as above. Please process accordingly. Gayle Washington MD [employer] message sent to patient reminding her to have Vitamin D Labs completed. Most recent Rheumatology visit: 12/12/2021 (with Gayle Washington) Recent Office Visits - This Specialty 12/12/2021 Secondary osteoarthritis of multiple sites Rheumatology Gayle Washington MD 06/04/2021 Secondary osteoarthritis of multiple sites Rheumatology Gayle Washington MD Upcoming Rheumatology Appointments - Next 365 Days No appointments to display CBC: CBC Latest Ref Rng & Units 06/04/2021 12/12/2021 WBC 3.70 - 11.00 k/uL 14.37(H) 9.25 HEMOGLOBIN 11.5 - 15.5 g/dL 13.9 14.8 HEMATOCRIT 36.0 - 46.0 % 43.0 45.2 PLATELETS 150 - 400 k/uL 253 259 Vitamin D: Vitamin D Latest Ref Rng & Units 06/04/2021 12/12/2021 VITAMIN D 25 HYDROXY 31.0 - 80.0 ng/mL 26.5(L) 29.6(L) LFT: CMP Latest Ref Rng & Units 06/04/2021 12/12/2021 SODIUM 136 - 144 mmol/L 138 138 POTASSIUM 3.7 - 5.1 mmol/L 4.5 4.3 CHLORIDE 97 - 105 mmol/L 102 104 CO2 22 - 30 mmol/L 27 24 GLUCOSE 74 - 99 mg/dL 78 93 BUN 7 - 21 mg/dL 22(H) 11 CREATININE 0.58 - 0.96 mg/dL 0.92 0.86 CALCIUM, TOTAL 8.5 - 10.2 mg/dL 9.5 9.6 AST 13 - 35 U/L 17 24 ALT 7 - 38 U/L 18 23 ALKALINE PHOSPHATASE 34 - 123 U/L 122 140(H) Creatinine: Creatinine Latest Ref Rng & Units 06/04/2021 12/12/2021 CREAT 0.58 - 0.96 mg/dL 0.92 0.86 ESR/CRP: ESR, WSR Latest Ref Rng & Units 06/04/2021 12/12/2021 WSR 0 - 20 mm/hr 16 5 CRP Latest Ref Rng & Units 06/04/2021 12/12/2021 CRP <0.9 mg/dL 1.0(H) 1.4(H) Uric Acid: Uric Acid Latest Ref Rng & Units 06/04/2021 12/12/2021 URIC ACID 2.5 - 6.6 mg/dL 3.1 3.9 Open Standing (Multiple Instance) Lab Orders None Open Future (Single Instance) Lab Orders Expected Expires Ordered HLA-B27 PCR [[id number]] 06/19/21 06/18/22 06/18/21 Auth. provider: Gayle Washington MD Assoc. diagnoses: Elevated sedimentation rate VITAMIN D 25 HYDROXY [SQVITD] 03/19/22 12/17/22 12/17/21 Auth. provider: Gayle Washington MD Assoc. diagnoses: Vitamin D deficiency documented in this encounter [facility] 04-16-2022 Note CONSULTATION PROCEDURE DATE: 04/16/2022 The patient was brought back to the clinic upon authorization of a trigger point injection. PRE AND POSTOPERATIVE DIAGNOSIS: Right cervical trapezius spasms. PROCEDURE: Right cervical trapezius trigger point inject. Subsequent to obtaining informed consent, the patient was placed in the upright sitting, head neutral, position. Alcohol prep was used to sterilize the site. 25-gauge needle with 0.125% Marcaine and 40 mg of Kenalog for a total of 3 cc was placed to rest inside the trigger zone. Negative heme. Medication was injected in a slow, fan-like pattern. The patient tolerated the procedure well with no overt complications. ADDITIONAL NOTE: The patient will be placed on Flexeril 10 mg q.h.s. and Baclofen will be discontinued. Baclofen resulted in GI distress. The patient will be seen at the clinic in three months' time. [facility] 04-09-2022 Note CONSULTATION CONSULTATION DATE: 04/09/2022 HISTORY OF PRESENT ILLNESS: This is a pleasant, 51-year-old female returning to the clinic for a follow up from right sided RFA of C3, C4 and C5 completed on 01/27/2022. The patient states she received 80% relief for four weeks, but feels she is having spasms to the right side of her neck and leading to the shoulder. Patient fell two weeks ago on concrete and caught herself with her right arm. Since that time, her pain has been rated 8/10 and throbbing. Activities that aggravate her pain are lateral rotation, housework, extension and flexion movement and any physical activity. Patient uses ice intermittently which temporarily decreases her pain and she finds relief with a TENS unit. Patient does have patchy hypoesthesia down her right arm as well. Current medications include baclofen 10 mg q.h.s., Celebrex 100 mg daily, Lamictal, Pristiq and Seroquel. Patient's REVIEW OF SYSTEMS / PAST MEDICAL HISTORY / ALLERGIES and IMAGES have been reviewed and they are noted on the chart. PHYSICAL EXAM: VITAL SIGNS: Blood pressure 145/90, heart rate is 96. Temperature is 97.7. She is 5'4 , weighs 97.4 kg. GENERAL IMPRESSION: Pleasant, appropriate, no acute distress. FOCUSED EXAM - NECK: Range of motion is guarded in lateral rotation to the right. Flexion/extension is functional but guarded in extension. Trigger point identified to right cervical trapezius muscle, this reproduces the patient's pain symptomatology. Cervical facets are non-tender upon compression, indicative of successful RFA. MUSCULOSKELETAL: Motor is intact to upper extremities, 4/5 bilaterally. No vasomotor changes. Muscle tone is good. NEUROLOGICAL: Patchy hypoesthesia noted along C6, C7 to the right arm, just above the wrist. Blunted brachioradialis to the right, +1 to the left. DIAGNOSIS: Cervical degenerative disc disease, cervical trapezius spasm and cervical spondylosis. PLAN: We will increase her Celebrex to 100 mg b.i.d. We will preauthorize for a right sided cervical trapezius trigger point injection for her muscle spasm. In the meantime, she was encouraged to continue with massage therapy, heat application and a menthol heat rub. Patient states understanding and will be called to return to the clinic for her injection. [facility] 01-01-2022 Note CONSULTATION CONSULTATION DATE: 01/01/2022 This is a pleasant 51-year-old female returning to the clinic status post #2 bilateral MBB on C3, C4 and C5 that afforded her 80% relief for 5 days. 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 Harrington for bilateral knee pain. She saw him last week and was placed by his PA on a 10-day course of low dose prednisone to help resolve fluids behind the lateral patella. She is to start that on 01/05. Current medications include Celebrex which is a new change off of her Mobic, Lamictal and Seroquel. Today her pain is 5 out of 10 and she has hypoesthesia to bilateral upper arms. Her right arm is the worst. Activities such as lateral rotation, pushing, pulling, ADLs activities and standing aggravate her pain. The use of ice, Biofreeze and sitting down helps mitigate the pain. REVIEW OF SYSTEMS, PAST MEDICAL HISTORY, ALLERGIES AND IMAGES: Have been reviewed and noted in the chart. PHYSICAL EXAM: VITAL SIGNS: Blood pressure 137/91, heart rate is 89, temperature is 97.8. Height is 5'4 , weighs 95.7 kg. GENERAL APPEARANCE: Pleasant and appropriate. No acute distress. NECK: Range of motion is guarded in lateral rotation and flexion/extension, particularly with lateral rotation tot her right. Reproduction of spinoaxial pain noted to direct compression along C3, 4 and 5 bilaterally with pain radiating past the shoulders. This is indicative of ill facet arthropathy, cervical spondylosis. Muscles are taut but not spasmodic. MUSCULOSKELETAL: Motor is 4 out of 5 to upper extremities bilaterally. Plus 1 brachioradialis. DIAGNOSIS: Cervical degenerative disk disease, cervical spondylosis, cervical spinal calcinosis and history of cervical anterior fusion. PLAN: We will gain authorization to move forward with radiofrequency ablation starting with the right side of C3, C4 and C5 subsequently and move to the left. She will also begin Baclofen 10 mg q.h.s. Other supportive measures at home such as heat and magnesium were discussed as well. The patient agrees with plan of care and will be followed up in the clinic post-procedure. [facility] Signed and Approved by: BEN MONROE . 01/08/2022 10:22:00 [facility] 12-17-2021 Miscellaneous Notes Pt aware. Kamryn Luna MA Notify patient request granted Thank you. Pt aware of message below. Patient states that she can get disability with certain diagnosis.' she states that fibromyalgia was explained to her through my chart. She wants to know if this can be added to her diagnosis' list on her chart? Please advise. Kamryn Luna MA Please Call patient if MyChart note not read to review results/released to My Chart if tests completed at [facility]: Mildly low vitamin D- increase over the counter 5000 International Units daily with food. One borderline inflammatory test- will monitor. Normal rest of labs and normal other inflammatory test. Continue same daily vitamin D with food. Recheck nonfasting labs in 3months.The orders have been placed. Neck xrays from 09/2021 show osteoarthritis changes, post surgical changes. Mid back xrays from 09/2021 show osteoarthritis. Lumbar spine xrays from 09/2021 show post surgical changes, osteoarthritis changes. Shoulder MRI from 02/2021 show post surgical changes, biceps tendinosis, small tear. May see ortho and or pain clinic if pain symptoms persist or worsen. Happy to further review and discuss at follow up visit. Continue rest of treatment plan per instructions at last office visit. Thank you. 12/12/21 low vitamin D 29.6;high crp 1.4 (1);NL esr 5, cbc, cmp, vitamin b12-536, uric acid 3.9; Outside 09/2021 neck xrays-Straightening of the cervical lordosis is again seen. There is a new anterior plate and screws at C5-6. At the time of the prior, there was a plate at C6-7. There is no evidence of compression fracture or displacement. The disc spaces above and below the levels of fusion are preserved. There is no prominent endplate spurring. There is some facet hypertrophy, greater on the left. Minor bony foraminal encroachment is seen at C5-6 bilaterally and at C6-7 on the left. The atlantoaxial relationship is maintained. There is no prevertebral soft tissue swelling. Outside 09/2021 thoracic xrays-AP, lateral and swimmer's views were obtained. There is mild dextroscoliotic curvature. The pedicles are intact. No definite acute fractures or displacement are seen. There is minor endplate spurring. No paraspinal soft tissue anomalies are present. Outside 09/2021 lumbar xrays-AP, lateral, both oblique and AP and lateral coned-down views of lumbosacral junction were obtained. Patient is status post fusion with posterior rods, pedicle screws and an interbody fusion device at the lumbosacral junction. The hardware appears intact and in appropriate position. There is grade 1 anterolisthesis of L5 on S1. No other displacement is identified. No acute compression fractures are seen. The disc spaces above the level of fusion are uniform. There is minor endplate spurring. There is mid and lower lumbar facet hypertrophy. Outside 02/2021 R shoulder MRI- post surgical changes, biceps tendinosis, small superior labral tear; documented in this encounter [facility] 12-12-2021 Note HNO ID: [id number] Author: Gayle Washington MD Service: ? Author Type: Physician Type: Progress Notes Filed: 12/17/2021 2:53 PM Note Text: Face to face follow up for joint pain/ osteoarthritis/ chronic pain syndrome/ fibromyalgia Today's visit 12/12/21:taking mobic no longer working. Wants to retry celebrex. Occasionally takes flexeril, completed vitamin D script. Taking daily vitamin D 2000 International Units daily with food. Chronic current pain in L>R knees, R shoulder, L elbow, neck. Reports pain 5-6/10. L>R knees, L knee slightly better after L knee scope/cleaned out. L elbow locks up. minimal AM stiffness. Fell 3times since last office visit, flat ground knees give out. COVID vaccine [facility] 06/26/21. Feels safe at home. Has enough food, supplies and medications. Overall uncomfortable but happy with rheum care. No fx/trauma/illness/oral sores/rash/hairloss/jaw pain/dysphagia/epistaxis/hemoptys is since last visit. No adverse effects with meds. No other complaints. Patient denies fever, chills, cp, dyspnea, nausea, vomiting, night sweats, scalp tenderness, visual changes, jiang, bowel/bladder changes, weight changes or other complaints. Last visit supportive care, start flexeril/notify office if not tolerated, improved with mobic, see ortho/pain clinic for oysterman pain recommendations/injections, prn acetaminophen, start prn heat/ice/otc arthritis creams, low impact weightbearing exercise as tolerated, avoid aggravating triggers,supportive care, start flexeril/notify office if not tolerated, improved with mobic, see ortho/pain clinic for snf pain recommendations/injections, prn acetaminophen, start prn heat/ice/otc arthritis creams, low impact weightbearing exercise as tolerated, avoid aggravating triggers, June 04, 2021 SUBJECTIVE Ms. Garcia is a 51 year old female who presents for joint pain eval. Years of pain in R>L shoulders, neck, knees, hips, low back 2003 s/p C6/7 fusion 2016 s/p b/l carpal tunnel syndrome release, improved hand numbness/tingling 2018 S/p R shoulder surgery for rotator cuff tear with bone spur/there still a screw 2019 S/p neck surgery, removed plate for C6-C7 and place C5 and c6 2019 S/p L5 lumbar surgery for bulging discs/one vertebra snapped Tried neurontin for neck/back pain, stopped due to making her numb No response with lyrica Had steroids injections R shoulder, neck, low back, relief dose not last long Last steroid injection of R shoulder last week, not better Had gel injection for R knee 12/2019 s/p R knee scope ACL tear repair May have L knee surgery Still has pain in neck, pain shooting down the back and shoot up neck Taking tylenol Taking mobic with good response Hands tight Hip clicking recently Reports pain 12/12 No falls/fx/trauma/illness/oral sores/rash/hairloss/jaw pain/dysphagia/epistaxis/hemoptys is. No adverse effects with meds. No other complaints. Patient denies fever, chills, cp, dyspnea, nausea, vomiting, night sweats, scalp tenderness, visual changes, jiang, bowel/bladder changes, weight changes or other complaints. COMPLETE REVIEW OF SYSTEMS: RHEUM. ROS: Joint pain: yes R>L shoulders, neck, knees, hips, low back Joint swelling: no Am stiffness: yes Low back pain: yes Dactylitis: no H/o precedent/frequent infection(s): no Enthesopathy/Kelley's/heel/plant ar tenderness: as above Skin thickening, psoriasis, photosensitivity, purpura: no Nail changes: ridges/ripples Alpecia, patchy: no Eye inflammation: glasses, R retinal hole SICCA: dry eyes Oral/nasal/genital ulcers: no GI problems-diarrhea/bleeding/IBD/Gl uten intolerence/Dysphagia: gerd Raynaud's phenomenon/digital ulcers: no Organ inv-Serositis: no Lung disease/ILD: no Myopathy/proximal muscle weakness: no Abnormal Urine or urethritis: no Renal/liver disease: no ACCESS NURSE/PNS/sz/cva/cancer disease: no HEME-Cytopenias/LAD/Clots: no Fevers: no Fatigue: yes, sleeps 8 hr/night PMR/GCA ROS: negative Patient denies history of Gout or Pseudogout, Psoriasis, Rheumatic Fever, GERD, PUD, Liver Disease, Hepatitis , Kidney Disease, Kidney Stones, DM, CAD, Dyslipidemia, PAD, Sinusitis, Asthma, TB infection or exposure, Pneumonias, Anemia, Seizures, Stroke, MS, Clots, Cancer, Thyroid Disease, Transfusions, Tattoos and Alcohol dependency. Other ROS:The remainder of the review of systems is negative. All other reviewed and negative other than HPI. PATIENT REPORTS: Cardiac stress test:stable Breast exam:negative Pap exam: normal, last menses 41y/o s/p NAYELI/BSO 2017 dropped bladder and s/p bladder sling;temporarily/now not taking hormones; G3, P2, 1miscarriage Colonoscopy: years ago stable per patient Bone Density:osteopenia 2019 History of Fractures:R foot fracture 6th grade Height Loss: no IMMUNIZATION HX: Pneumovax no Flu shot no Tetanus yes No COVID or shingles vaccine Last PPD: no PAST MEDICAL HISTORY: PMH (more content not included)... [facility] 12-12-2021 History of Present illness Narrative Face to face follow up for joint pain/ osteoarthritis/ chronic pain syndrome Today's visit 12/12/21:taking mobic no longer working. Wants to retry celebrex. Occasionally takes flexeril, completed vitamin D script. Taking daily vitamin D 2000 International Units daily with food. Chronic current pain in L>R knees, R shoulder, L elbow, neck. Reports pain 5-12/12. L>R knees, L knee slightly better after L knee scope/cleaned out. L elbow locks up. minimal AM stiffness. Fell 3times since last office visit, flat ground knees give out. COVID vaccine [facility] 06/26/21. Feels safe at home. Has enough food, supplies and medications. Overall uncomfortable but happy with rheum care. No fx/trauma/illness/oral sores/rash/hairloss/jaw pain/dysphagia/epistaxis/hemoptys is since last visit. No adverse effects with meds. No other complaints. Patient denies fever, chills, cp, dyspnea, nausea, vomiting, night sweats, scalp tenderness, visual changes, jiang, bowel/bladder changes, weight changes or other complaints. Last visit supportive care, start flexeril/notify office if not tolerated, improved with mobic, see ortho/pain clinic for oysterman pain recommendations/injections, prn acetaminophen, start prn heat/ice/otc arthritis creams, low impact weightbearing exercise as tolerated, avoid aggravating triggers,supportive care, start flexeril/notify office if not tolerated, improved with mobic, see ortho/pain clinic for snf pain recommendations/injections, prn acetaminophen, start prn heat/ice/otc arthritis creams, low impact weightbearing exercise as tolerated, avoid aggravating triggers, June 04, 2021 SUBJECTIVE Ms. Garcia is a 51 year old female who presents for joint pain eval. Years of pain in R>L shoulders, neck, knees, hips, low back 2003 s/p C6/7 fusion 2016 s/p b/l carpal tunnel syndrome release, improved hand numbness/tingling 2018 S/p R shoulder surgery for rotator cuff tear with bone spur/there still a screw 2019 S/p neck surgery, removed plate for C6-C7 and place C5 and c6 2019 S/p L5 lumbar surgery for bulging discs/one vertebra snapped Tried neurontin for neck/back pain, stopped due to making her numb No response with lyrica Had steroids injections R shoulder, neck, low back, relief dose not last long Last steroid injection of R shoulder last week, not better Had gel injection for R knee 12/2019 s/p R knee scope ACL tear repair May have L knee surgery Still has pain in neck, pain shooting down the back and shoot up neck Taking tylenol Taking mobic with good response Hands tight Hip clicking recently Reports pain 12/12 No falls/fx/trauma/illness/oral sores/rash/hairloss/jaw pain/dysphagia/epistaxis/hemoptys is. No adverse effects with meds. No other complaints. Patient denies fever, chills, cp, dyspnea, nausea, vomiting, night sweats, scalp tenderness, visual changes, jiang, bowel/bladder changes, weight changes or other complaints. COMPLETE REVIEW OF SYSTEMS: RHEUM. ROS: Joint pain: yes R>L shoulders, neck, knees, hips, low back Joint swelling: no Am stiffness: yes Low back pain: yes Dactylitis: no H/o precedent/frequent infection(s): no Enthesopathy/Kelley's/heel/plant ar tenderness: as above Skin thickening, psoriasis, photosensitivity, purpura: no Nail changes: ridges/ripples Alpecia, patchy: no Eye inflammation: glasses, R retinal hole SICCA: dry eyes Oral/nasal/genital ulcers: no GI problems-diarrhea/bleeding/IBD/Gl uten intolerence/Dysphagia: gerd Raynaud's phenomenon/digital ulcers: no Organ inv-Serositis: no Lung disease/ILD: no Myopathy/proximal muscle weakness: no Abnormal Urine or urethritis: no Renal/liver disease: no ACCESS NURSE/PNS/sz/cva/cancer disease: no HEME-Cytopenias/LAD/Clots: no Fevers: no Fatigue: yes, sleeps 8 hr/night PMR/GCA ROS: negative Patient denies history of Gout or Pseudogout, Psoriasis, Rheumatic Fever, GERD, PUD, Liver Disease, Hepatitis , Kidney Disease, Kidney Stones, DM, CAD, Dyslipidemia, PAD, Sinusitis, Asthma, TB infection or exposure, Pneumonias, Anemia, Seizures, Stroke, MS, Clots, Cancer, Thyroid Disease, Transfusions, Tattoos and Alcohol dependency. Other ROS:The remainder of the review of systems is negative. All other reviewed and negative other than HPI. PATIENT REPORTS: Cardiac stress test:stable Breast exam:negative Pap exam: normal, last menses 41y/o s/p NAYELI/BSO 2018 dropped bladder and s/p bladder sling;temporarily/now not taking hormones; G3, P2, 1miscarriage Colonoscopy: years ago stable per patient Bone Density:osteopenia 2019 History of Fractures:R foot fracture 6th grade Height Loss: no IMMUNIZATION HX: Pneumovax no Flu shot no Tetanus yes No COVID or shingles vaccine Last PPD: no PAST MEDICAL HISTORY: PMH R retinal hole, s/p NAYELI/BSO 2018 dropped bladder and s/p bladder sling, s/p R plantar fasciitis surgery, R foot fracture 6th grade, htn, bipolar disorder, allergies, irregular heart beat/leaky cardiac,s/p T&A, s/p cholecystectomy, s/p repeated ear surgeries, 2003 s/p C6/7 fusion 2016 s/p b/l carpal tunnel syndrome release, improved hand numbness/tingling 2018 S/p R shoulder surgery for rotator cuff tear with bone spur/there still a screw 2019 S/p neck surgery, removed plate for C6-C7 and place C5 and c6 2019 S/p L5 lumbar surgery for bulging discs/one vertebra snapped 12/2019 s/p R knee scope ACL tear repair, factor 5 leiden test + PAST SURGICAL HISTORY: s/p T&A, s/p cholecystectomy, s/p repeated ear surgeries, 2003 s/p C6/7 fusion 2016 s/p b/l carpal tunnel syndrome release, improved hand numbness/tingling 2019 S/p R shoulder surgery for rotator cuff tear with bone spur/there still a screw 2019 S/p neck surgery, removed plate for C6-C7 and place C5 and c6 2019 S/p L5 lumbar surgery for bulging discs/one vertebra snapped 12/2019 s/p R knee scope ACL tear repair FAMILY HISTORY: father-, osteoarthritis, gout;mother-osteoarthritis;niece tested for lupus;sister-thyroid disease; SOCIAL HISTORY: 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, last work 04/2020 Smoking 1ppd x 1year etoh rarely Gout attack great toe once a year since years ago Red meat 3times a week Shellfish once a week No pop MEDICATIONS: reviewed medlist 12/12/21 Calcium mvi Vitamin D 2000 International Units daily with food CURRENT ALLERGIES: Allergies As of Date: 12/12/2021 Allergen Noted Reaction IBUPROFEN 06/04/2021 Unknown TRAMADOL 06/04/2021 Unknown Fully Assessed 06/05/2021 TESTS:All Diagnostic tests reviewed for today's visit: 06/04/21 low vitamin D 26.5;high wbc 14.37, crp 1;NL esr 16, rest of cb, cmp, uric acid 3.1, vitamin b12-504;negative rf<10, ccp<15, [facility] ifa, hla b27, hepatitis panel, quantiferon tb; 06/04/21 knee xrays right There is mild joint space narrowing of the patellofemoral joint laterally. normal left side. 06/04/21 hip xrays-There is a small calcification that does not change position with internal and different views of the right hip most likely within the soft tissue outside of the hip joint. Sacroiliac joints are normal in appearance. Status post L5/S1 interbody fusion with pedicle screw not fixation posteriorly 06/04/21 shoulder xrays-There is mild joint space narrowing and osteophytosis of the left acromioclavicular joint. The left glenohumeral joint is maintained.The patient is status post plate and screws fixation of the lower cervical spine. 06/04/21 hand xrays-Small area of soft tissue swelling dorsal to the second MCP joint on the right. [facility] 05/16/21 lumbar xrays lumbosacral fusion, no osseous or hardware fracture. Minimal chronic anterior wedging of the thoracolumbar region [facility] 05/16/21 R shoulder xrays;postsurgical remodeling/ tapering of the distal clavicle [facility] 05/06/21 neck xrays-cervical C5-6 anterior plate screw fusion hardware, C6/7 end plate fusion. Mid diffuse facet arthropathy, minimal neural foraminal stenosis (bilateral C5/6). No fracture or focal soft tissue swelling. [facility] 08/13/20 lumbar xrays- mid chronic appearing anterior wedging of T11, lumbosacral fusion, pedicle screw intervertebral disc spacer. Mild residual L5 upon S1 anterolisthesis. 10mm. [facility] 08/13/20 neck xarys- distal fusion, mild diffuse facet arthropathy. [facility] 08/13/20 sacrum xrays-lumbosacral fusion, intervertebral disc spacer, pedicle screw hardware, new since 04/15/20. PHYSICAL EXAM:reviewed vitals BP 125/87 Pulse 88 Wt 97.5 kg (215 lb) BMI 36.39 kg/m General Appearance: WD/WN, NAD. Appropriate grooming. Very pleasant. Ambulates fair without assistance or without assistive devices, speaks in full sentences without distress SKIN: No rash, no psoriasis, no purpura, no ulcers, no skin thickening/tightness, no telangiectasias. HEENT: No patchy alopecia, normal temporal artery pulsations, non-tender, scalp non-tender, no conjunctival injection or icterus, no oral ulcers, no thrush, normal nasal mucosa, no sinus tenderness, normal TM's. yes glasses, fair dentition NECK: neck supple w/o masses, no thyromegaly, no LAD. LUNGS: CTA, Good respiratory effort. HEART: RRR, - m/r/g ABDOMEN: soft, non-tender, no HSM/masses/bruits. EXTREMITIES: Adequate pulses b/l UE ; No clubbing,discoloration,sclerodact yly, periungual erythema, digital ulcers, nail pitting, edema, varicosities. MUSCULOSK: No joint deformities, no rheumatoid nodules, calcifications or tophi. No SI tenderness, no kelley's tenderness, no heel/plantar tenderness, lumbar flexion full, negative Jarvis's test, tinel's and marti tests Swoll JTS:no Tend. JTS:R>L shoulders, L elbow, neck, L>R knees, hips, low back, decreased range of motion due to pain; no warmth/erythema No clinical synovitis in the DIP's, PIP's, MCP's, wrists, elbows, shoulders, knees, ankles, midfoot, or toes. no knee effusions bilateral. Shoulder exam:see above; no warmth/erythema Yes Hip rom with pain LIMITATION of Motion of Joints: yes Thoracic/Lumbar Spine: No percussion tenderness SLR:negative No instability in any upper or lower extremity joints. NEURO: Mental Status: alert and oriented x 3, anxious, CN II - XII grossly intact Motor: 5/5 proximally and distally b/l Sensory: intact to fine touch TENDER POINTS: 0/18 Gait: see above Toe and heel walk abnormal. 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 Garcia is a 51 year old Wfemale with PMH R retinal hole, s/p NAYELI/BSO 2018 dropped bladder and s/p bladder sling, s/p R plantar fasciitis surgery, R foot fracture 6th grade, htn, bipolar disorder, allergies, irregular heart beat/leaky cardiac,s/p T&A, s/p cholecystectomy, s/p repeated ear surgeries, 2003 s/p C6/7 fusion 2016 s/p b/l carpal tunnel syndrome release, improved hand numbness/tingling 2018 S/p R shoulder surgery for rotator cuff tear with bone spur/there still a screw 2019 S/p neck surgery, removed plate for C6-C7 and place C5 and c6 2019 S/p L5 lumbar surgery for bulging discs/one vertebra snapped 12/2019 s/p R knee scope ACL tear repair, factor 5 leiden test + presents with Years of pain in R>L shoulders, neck, knees, hips, low back 2003 s/p C6/7 fusion 2016 s/p b/l carpal tunnel syndrome release, improved hand numbness/tingling 2018 S/p R shoulder surgery for rotator cuff tear with bone spur/there still a screw 2019 S/p neck surgery, removed plate for C6-C7 and place C5 and c6 2020 S/p L5 lumbar surgery for bulging discs/one vertebra snapped Tried neurontin for neck/back pain, stopped due to making her numb No response with lyrica Had steroids injections R shoulder, neck, low back, relief dose not last long Last steroid injection of R shoulder last week, not better Had gel injection for R knee 12/2019 s/p R knee scope ACL tear repair May have L knee surgery Still has pain in neck, pain shooting down the back and shoot up neck Taking tylenol Taking mobic with good response Hands tight Hip clicking recently Reports pain 6/10 Degenerative joint disease on imaging Has findings consistent with secondary osteoarthritis of multiple joints, cervicalgia, lumbago with sciatica, chronic pain syndrome, low vitamin D here taking mobic no longer working. Wants to retry celebrex. Occasionally takes flexeril, completed vitamin D script. Taking daily vitamin D 2000 International Units daily with food. Chronic current pain in L>R knees, R shoulder, L elbow, neck. Reports pain 5-6/10. L>R knees, L knee slightly better after L knee scope/cleaned out. L elbow locks up. minimal AM stiffness. Fell 3times since last office visit, flat ground knees give out. COVID vaccine [facility] 06/26/21. Feels safe at home. Has enough food, supplies and medications. Overall uncomfortable but happy with rheum care. = supportive care, start celebrex/notify office if not tolerated, OFF mobic/initially improved with medication but now effect wore off, prn flexeril, see pain clinic for snf pain recommendations, see ortho/pain clinic for snf pain recommendations/injections, prn acetaminophen, start prn heat/ice/otc arthritis creams, low impact weightbearing exercise as tolerated, avoid aggravating triggers, answered all questions and concerns, patient voiced understanding. RECOMMENDATION/PLAN: Office Visit on 12/12/21 VITAMIN B12 BLOOD URIC ACID BLOOD CONSULT TO ORTHOPAEDICS Reviewed labs/tests with patient Provided printed info osteoarthritis 12/12/21 check above orders Modified 12/12/21 GUSTAVO 0, pain 50-60%;June 04, 2021 GUSTAVO 0, pain 60%; May apply over the counter arthritis creams/patches (biofreeze, icy hot, asper cream, tiger balm, capsacin, lidocaine, salon pas, voltaren gel, etc.) or over the counter pain patches to painful joints up to four times a day. Avoid contact with eyes. May take Extra Strength acetaminophen 500mg every 4-6hours for joint pain. Do not exceed 3000mg /day. Decrease stress Improve sleep May apply heat/ice 20minutes on and off to areas of pain Avoid aggravating triggers Calcium 1200mg daily with food in DIVIDED doses If labs normal, take Vitamin D 4000 International Units daily with food mobic 15mg daily with food for pain Recommend goal: exercising 30minutes 3-5 times a week Recommend weight-bearing aerobic exercises such as walking, dancing, low impact aerobics, elliptical machine, stair climbing, gardening flexibility exercises and strength training exercises Recommend avoiding high impact exercises such as jumping, running or jogging or movements where you bend forward and twist the waist, for instance- touching your toes, sit-ups, using row machine OFF gabapentin due to side effects OFF lyrica no response snf pain recommendations per primary care provider/pain clinic nonfasting labs as scheduled Additional time spent with patient on healthy lifestyle, healthy food and anti-inflammatory diet (with emphasis on whole plant based diet), avoiding refined carbs/sugars and processed food, appropriate exercise (stretching, cardio and strengthening), good sleep hygiene, stress mgt, and supplementing vital deficiencies and maintaining healthy wt and BMI. Additional information provided with references and educational information. Bone Health Recommendations: -Bone Density: After age 70 yrs, sooner if new clinical risk factors, or systemic steroid use of 3 months or more. -Vitamin D supplementation recommended, optimal dose is the dose necessary to achieve Vitamin D 25-OH blood level in range of 40-60 ng/mL. -Recommended daily dose of calcium: 1000-1200mg total a day in divided doses. Calcium from dietary sources, if not sufficient, or if with h/o calcium nephrolithiasis would recommend Calcium Citrate supplement, as it is recommended to avoid calcium carbonate products, which as main dietary calcium source. The after visit summary has information on dietary calcium and instructions on reading calcium label and converting the %DV to mg. -Regular weight-bearing and muscle-strengthening exercise -Avoidance of tobacco smoking, excessive alcohol intake and excessive caffeine intake. -Fall and fracture precautions -Continued regular dental follow up visits and good dental/gum care Stressed the importance of following up with PCP and specialists for his/her chronic diseases, health, CV, and cancer screening and continued care. Will follow disease activity/progression and adjust therapeutic regimen to disease activity and severity. Discussed medication dosage, usage, goals of therapy, and side effects. Available test results were reviewed An additional 20minutes were spent outside of the patient visit to review records. Additional time spent with the patient to discuss their questions. Additional time spent with the patient devoted to discussing treatment strategy, planning, and implementation. Discussed findings, impression and plan with patient. Patient understands above plan; questions asked and answered. Patient agrees to plan as noted above. Total time spent on this visit, with more than 50% of time spent via video & audio (virtual) or phone or face to face with patient, in consultation, and in addition to Counseling and Coordination of Care, explanation of diagnosis, and planning of further management; I spent a total of 30 minutes on the date of the service which included preparing to see the patient, video & audio (virtual) or phone or [id number] patient care, completing clinical documentation, obtaining and/or reviewing separately obtained history, performing a medically appropriate examination, counseling and educating the patient/family/caregiver, ordering medications, tests, or procedures, communicating with other HCPs (not separately reported), independently interpreting results (not separately reported), communicating results to the patient/family/caregiver and care coordination (not separately reported) Follow up: 6-12months, earlier if needed Recommendations to share with referring physician/Primary care physician : Dear Dr.Renee Leora Gibbons DO: I had the pleasure of seeing your patient, Lexi Garcia. I have enclosed a copy of my clinic note with my assessment and recommendations for this patient. Recommendations for your consideration as you deem necessary: -Continuous follow up with Primary care physician for cardiovascular disease prevention, for age appropriate cancer screening and routine health maintenance and wellness, and infection precautions and age appropriate immunization recommended. Thank you for allowing me to participate in the care of your patient. Gayle Washington MD I will relay my findings and recommendations to the physician requesting the consult by letter/electronic shared medical records. cc Dr.Renee Leora Gibbons DO documented in this encounter [facility] 12-12-2021 Instructions Gayle Washington MD - 12/12/2021 10:40 AM EDT May apply over the counter arthritis creams/patches (biofreeze, icy hot, asper cream, tiger balm, capsacin, lidocaine, salon pas, voltaren gel, etc.) or over the counter pain patches to painful joints up to four times a day. Avoid contact with eyes. May take Extra Strength acetaminophen 500mg every 4-6hours for joint pain. Do not exceed 3000mg /day. Decrease stress Improve sleep May apply heat/ice 20minutes on and off to areas of pain Avoid aggravating triggers If needed, may take Calcium 1200mg daily with food in DIVIDED doses If labs normal, take Vitamin D 4000 International Units daily with food mobic 15mg daily with food for pain Recommend goal: exercising 30minutes 3-5 times a week Recommend weight-bearing aerobic exercises such as walking, dancing, low impact aerobics, elliptical machine, stair climbing, gardening flexibility exercises and strength training exercises Recommend avoiding high impact exercises such as jumping, running or jogging or movements where you bend forward and twist the waist, for instance- touching your toes, sit-ups, using row machine OFF gabapentin due to side effects OFF lyrica no response oysterman pain recommendations per primary care provider/pain clinic nonfasting labs as scheduled Thank you. documented in this encounter [facility] 12-09-2021 Miscellaneous Notes Patient has been scheduled as requested for 12/12/21. Referral has been attached. I spoke with Ms. Garcia and she is aware of all of the appointment details. Nataliya DYKES December 09, 2021 2:43 PM Patient calling to schedule follow up appt with Dr Washington no schedule pulling for [facility] only [facility]. Patient requesting call at [phone] Washington is still at [facility]. Please advise. documented in this encounter [facility] 11-18-2021 Note PAIN MANAGEMENT CONS ULTATION CONSULTATION DATE: 11/18/2021 CHIEF COMPLAINT: Cervical pain. HISTORY OF PRESENT ILLNESS: This is a 51-year-old female who had, in the past, been seen by Dr. Brunner, Pain Management in [place], [place]. The patient had changed her insurances to [employer] and, as such, Dr. Brunner does not accept that insurance. The patient had undergone a cervical medial branch block at the level of C3, C4 and C5 on the right hand side, which afforded the patient 80-90% improvement. This was July 01, 2021. The patient also has right shoulder pain. The patient gives a history of chronic headaches. She rates the pain currently as a 6/10, an achy sensation. The patient has difficulty in twisting her head. She has difficulty in driving and looking over her shoulder. Pushing, pulling, lifting aggravate the patient's pain. Pain is mitigated by sitting and ice. Change in weather aggravates the pain. The patient states she has stomach problems secondary to NSAID usage and currently takes Tylenol 1500 mg q. 5-6 hours. Patient has been educated with regards to this. The patient also takes clonazepam 0.5 mg b.i.d., Lamictal 300 mg and Mobic 15 mg. 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 The patient is a poor historian. The patient has had a remote cervical fusion at the level of C5-C6 and then an explanting of the hardware in 2019 at the level of C5-C6. Both of the surgeries were done by Dr. Femi Rosario, neurosurgeon. The patient's PAST MEDICAL HISTORY / SURGICAL HISTORY / REVIEW OF SYSTEMS are noted on the chart, along with the MEDICATION LIST / ALLERGIES and MRI of the cervical spine, which was reviewed in the office today. Report is noted on to the chart.. PHYSICAL EXAMINATION: GENERAL: Upon physical examination, this is a pleasant, cooperative female, who is dusky in color. VITAL SIGNS: 138/95 with a heart rate of 89. At a height of 5'4 , the patient weighs 212 pounds. The patient has truncal morbid obesity. The patient is a smoker. FOCUSED EVALUATION OF THE CERVICAL SPINE: Extension, compression, direct palpation aggravate a component of the patient's pain symptomatology, however, not severe. EXTREMITY: Decreased muscle bulk is noted in the upper extremities bilaterally. Clubbing of the digits are present. MUSCULOSKELETAL: Intact in the upper extremity at 4+/5 bilaterally. NEUROLOGICALLY: No radicular symptomatology is present. The patient has right shoulder pain. Abduction aggravates the patient's pain, as does oblique abduction. Patient appears to have impingement at this point. She is under care. IMPRESSION: Current working diagnosis on the patient is status post explants of the cervical fusion [place] [address] Femi Rosario. Bulging disc with spinal canal stenosis at the level of C5-C6 above the fusion site. Cervical spondylosis with 80-90% relief for one day along the cervical medial branch block by Dr. Brunner at the level of C3, 4 and 5. This was only performed on the right hand side. PLAN: We will schedule the patient for a second right sided medial branch block at the level of C3, 4 and 5. The patient was educated with regards to better care of herself. This would include multivitamin and tobacco cessation. Education was done and significant amount of time was spent with the patient. Patient will also start home cervical traction device, recommended on a t.i.d. basis for 15 minutes. The patient understands and would like to proceed. CC: Kimberley Gibbons D.O. [facility] Signed and Approved by: DR RACHEL STOCK . 11/25/2021 12:22:00 [facility] 10-14-2021 Evaluation note Encounter Date Diagnosis Assessment Notes Oct, Shoulder pain, right (ICD-10 - M25.511) Patient is encouraged to follow up with an orthopedic surgeon for this pain. Oct, Cervical spondylosis (ICD-10 - M47.812) 51 year old female here for follow up for chronic pain. She voices complaints of neck pain today worse on the right. She feels her pain negatively impacts her activities of daily living. Different treatment options were discussed in detail with the patient. I recommend we proceed with a trigger point injection to the right cervical and interscapular area as previously discussed. 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 Oct, Lumbosacral spondylosis (ICD-10 - M47.817) Stable. Oct, Chronic pain (ICD-10 - G89.29) Follow up after procedure. Oct, Occipital neuralgia (ICD-10 - M54.81) Consider bilateral greater and lesser occipital nerve block in the future if needed. [facility] Other 12-28-2021 Evaluation note* Encounter Date Diagnosis Assessment Notes Treatment Notes Treatment Clinical Notes Jun, Shoulder pain, right (ICD-10 - M25.511) Patient is encouraged to contact an orthopedic surgeon as previously discussed. Jun, Cervical spondylosis (ICD-10 - M47.812) 51 year old female here for follow up status post cervical facet medial branch block right at C3, C4, C5 under fluoroscopic guidance. Patient reports 80-90% pain relief and increased function for 1 day following procedure. She voices continued complaints of right sided neck pain today as expected. She denies any procedure related complications. She also voices complaints of right sided low back pain, denying radicular symptoms. Anatomy of spine as well as different treatment options were discussed in detail with patient in regards to patients condition. She is a candidate to proceed with a second right cervical facet medial branch nerve block under fluoroscopic guidance. Risks and benefits of procedure explained to patient; patient verbalizes understanding. Patient states that she will not have insurance after the of the year and cannot proceed with injections at this time. Jun, Arthritis of sacroiliac joint (ICD-10 - M47.818) Continue with current treatment plan. Jun, Lumbosacral spondylosis (ICD-10 - M47.817) Patient is encouraged to proceed with X-rays of the lumbar spine as previously discussed. Jun, Chronic pain (ICD-10 - G89.29) Jun, Right hip pain (ICD-10 - M25.551) In regards to her complaints of right hip pain, I will order imaging of the right hip to further evaluate her pain. [facility] Other 12-15-2021 Evaluation note* Encounter Date Diagnosis Assessment Notes Treatment Notes Treatment Clinical Notes Jun, Shoulder pain, right (ICD-10 - M25.511) She continues to complain of right shoulder pain today. In regards to continued complaints of right shoulder pain, I recommend she see an orthopedic surgeon as injections have not provided her with significant relief. Jun, Cervical spondylosis (ICD-10 - M47.812) 51 year old female here for follow up status post right shoulder and acromioclavicular joint injection under ultrasound guidance. Patient reports minimal pain relief following the procedure. She continues to complain of right shoulder pain today. She also voices complaints of neck pain with radiation into the back of the head. Different treatment options were discussed with the patient in detail. I recommend we proceed with a right cervical medial branch nerve block under fluoroscopic guidance. Risks and benefits of procedure explained to patient; patient verbalizes understanding. Jun, Arthritis of sacroiliac joint (ICD-10 - M47.818) Continue with current treatment plan. Jun, Lumbosacral spondylosis (ICD-10 - M47.817) I will order updated imaging of the lumbar spine to further evaluate her pain Jun, Chronic pain (ICD-10 - G89.29) Continue medications as prescribed [facility] Other 11-11-2021 Evaluation note* Encounter Date Diagnosis Assessment Notes Treatment Notes Treatment Clinical Notes May, Lumbosacral spondylosis (ICD-10 - M47.817) I will order updated imaging of the lumbar spine to further evaluate her pain May, Arthritis of sacroiliac joint (ICD-10 - M47.818) 51 y/o female here for follow up status post sacral lateral branch radiofrequency ablation bilaterally under fluoroscopic guidance. Patient reports 50% pain relief and increased function following procedure. She states she fell a few days after procedure and feels this has aggravated her pain. She denies going to ED for evaluation. Different treatment options were discussed in detail with the patient, I recommend she give the procedure more time as it can take up to 6 weeks for maximum relief. In the meantime, she can use heat/ice to painful areas as tolerated May, Shoulder pain, right (ICD-10 - M25.511) In regards to her complaints of right shoulder pain, I recommend we proceed with a right shoulder & AC joint injection under ultrasound guidance. Risks and benefits of procedure explained to patient; patient verbalizes understanding. May, Chronic pain (ICD-10 - G89.29) Continue medications as prescribed [facility] Other 09-29-2021 Evaluation note* Encounter Date Diagnosis Assessment Notes Treatment Notes Treatment Clinical Notes Mar, Lumbosacral spondylosis (ICD-10 - M47.817) If her pain persists or worsens, we can proceed with a second lumbar facet medial branch nerve block under fluoroscopic guidance as she reports 85% relief for a day following procedure. Mar, Arthritis of sacroiliac joint (ICD-10 - M47.818) 35 year old female here for follow up status post bilateral sacral lateral branch nerve block at S1, S2 and S3, as well as L5 dorsal ramus under fluoroscopic guidance. Patient reports 70-80% pain relief and increased function for 5 days following the procedure. She continues to complain of low back pain today as as expected. She also voices complaints of right shoulder pain. Anatomy of spine as well as different treatment options were discussed in detail with patient in regards to patients condition. Patient is a candidate to proceed with a right followed by left sacral lateral branch radiofrequency ablation under fluoroscopic guidance. Risks and benefits of procedure explained to patient; patient verbalizes understanding. Mar, Coccydynia (ICD-10 - M53.3) Continue with current treatment plan. Mar, Chronic pain (ICD-10 - G89.29) Stable, follow up after procedure. Mar, Right anterior shoulder pain (ICD-10 - M25.511) In regards to her complaints of right shoulder pain, we can consider a right shoulder and AC joint injection under ultrasound guidance in the future. [facility] Other Evaluation note* Diagnosis Secondary osteoarthritis of multiple sites- Primary Osteoarthrosis involving, or with mention of more than one site, but not specified as generalized, multiple sites Vitamin B12 deficiency Other B-complex deficiencies Hyperuricemia Other abnormal blood chemistry Chronic pain of both knees Chronic right shoulder pain Pain in joint, shoulder region Elbow pain, left Pain in joint, upper arm Chronic hip pain, bilateral Chronic bilateral low back pain with bilateral sciatica Cervicalgia Bilateral hand pain Pain in limb Vitamin D deficiency Unspecified vitamin D deficiency Elevated C-reactive protein (CRP) Chronic pain syndrome documented in this encounter [facility]No Information[facility]Lif[facility] Other Evaluation note* Diagnosis Secondary osteoarthritis of multiple sites- Primary Osteoarthrosis involving, or with mention of more than one site, but not specified as generalized, multiple sites Vitamin D deficiency Unspecified vitamin D deficiency Fibromyalgia Mylagia and myositis, unspecified [facility] Diagnosis Secondary osteoarthritis of multiple sites Osteoarthrosis involving, or with mention of more than one site, but not specified as generalized, multiple sites [facility]* Diagnosis Chronic hip pain, bilateral Chronic left shoulder pain Pain in joint, shoulder region Chronic pain of both knees Bilateral hand pain Pain in limb [facility] Diagnosis Secondary osteoarthritis of multiple sites Osteoarthrosis involving, or with mention of more than one site, but not specified as generalized, multiple sites Cervicalgia Chronic bilateral low back pain with bilateral sciatica documented in this [facility] Diagnosis Flatulence, eructation and gas pain Flatulence, eructation, and gas pain Chronic GERD documented in this encounter DEWAYNE KRISHNAMURTHYKendra [facility] Narrative - Reported* Type Description Date Medical History allergies Medical History factor 5 blood disorder Medical History anxiety Medical History depression Medical History bipolar Medical History lumbar DDD Surgical History back surgery 06/2021 Surgical History neck surgery 05/2021 Hospitalization History see above Hum Other History general Narrative - Reported* Type Description Date Medical History allergies Medical History factor 5 blood disorder Medical History anxiety Medical History depression Medical History bipolar Medical History lumbar DDD Medical History osteoarthritis of multiple joint s Surgical History back surgery 06/2021 Surgical History neck surgery 05/2021 Hospitalization History see above Hum Other History of Present illness NarrativePatient has continued intermittent pain symptoms in her right shoulder she is remotely status post rotator cuff repair she had a follow-up MRI scan recently she would like to review with me today. She had a subacromial injection but it did not resolve all of her symptoms.[id number] Work Phone: Reason for referral (narrative)* Diagnostic Procedure Only (Routine) - Closed Specialty Diagnoses / Procedures Referred By Margarita vanegas Referred To Contact XR IMAGING Diagnoses Bilateral hand pain Procedures XR HAND GENERAL 3V PA/LAT/OBL BILATERAL X-RAY HAND MINIMUM 3 VIEWS Gayle Washington MD [address] [place] [address] Xr Imaging Referral ID Status Reason Start Date Expiration Date V isits Requested Visits Authorized [id number] Closed Auto-Generate d Referral 06/04/2021 07/04/2022 1 1 * Diagnostic Procedure Only (Routine) - Closed Specialty Diagnoses / Procedures Referred By Margarita vanegas Referred To Contact XR IMAGING Diagnoses Chronic pain of both knees Procedures XR KNEE GENERAL 4V AP BOTH/PA BOTH/LAT/MERC BILATERAL KNEE AP-WGT/LAT/MERCHANT Gayle Washington MD [address] [place] [address] Xr Imaging Referral ID Status Reason Start Date Expiration Date V isits Requested Visits Authorized [id number] Closed Auto-Generate d Referral 06/04/2021 07/04/2022 1 1 * Diagnostic Procedure Only (Routine) - Closed Specialty Diagnoses / Procedures Referred By Contac t Referred To Contact XR IMAGING Diagnoses Chronic left shoulder pain Procedures XR SHOULDER GENERAL 3V OR MORE AP/TRUE AP/OTHER LEFT X-RAY SHOULDER COMPLET MIN 2 VIEWS Gayle Washington MD [address] [place] [address] Xr Imaging Referral ID Status Reason Start Date Expiration Date V isits Requested Visits Authorized [id number] Closed Auto-Generate d Referral 06/04/2021 07/04/2022 1 1 * Diagnostic Procedure Only (Routine) - Closed Specialty Diagnoses / Procedures Referred By Contac t Referred To Contact XR IMAGING Diagnoses Chronic hip pain, bilateral Procedures XR HIP BILATERAL 5V PEL/AP/LAT EACH HIP RADEX HIPS BILATERAL WITH PELVIS MINIMUM 5 VIEWS Gayle Washington MD [address] [place] [address] Xr Imaging Referral ID Status Reason Start Date Expiration Date V isits Requested Visits Authorized [id number] Closed Auto-Generate d Referral 06/04/2021 07/04/2022 1 1 [facility] for visit Narrative* Diagnostic Procedure Only (Routine) - Closed Specialty Diagnoses / Procedures Referred By Contac t Referred To Contact XR IMAGING Diagnoses Bilateral hand pain Procedures XR HAND GENERAL 3V PA/LAT/OBL BILATERAL X-RAY HAND MINIMUM 3 VIEWS Gayle Washington MD [address] [place] [address] Xr Imaging Referral ID Status Reason Start Date Expiration Date V isits Requested Visits Authorized [id number] Closed Auto-Generate d Referral 06/04/2021 07/04/2022 1 1 [facility] Summary Purpose Family History No Family History Records FoundNo Family History Records FoundNo Family History Records FoundNo Family History Records FoundNo Family History Records FoundNo Family History Records FoundNo Family History Records FoundNo Family History Records FoundNo Family History Records FoundNo Family History Records FoundNo Family History Records FoundNo Family History Records Found Advance Directives No Advanced Directives Records FoundLatest Code Status on File Code Status Date Activated Date Inactivated Comments Full Code 06/25/2020 2:09 PM 06/27/2020 8:24 PM Chief Complaint RIGHT SHOULDER FUV/ NK Reason for Referral Specialty Diagnoses / Procedures Referred By Contnelida t Referred To Contact Orthopedics Diagnoses Chronic pain of both knees Chronic right shoulder pain Elbow pain, left Procedures CONSULT TO ORTHOPAEDICS OFFICE/OUTPATIENT [facility] MDM 60-74 MINUTES Gayle Washington MD [address] [place] [address] Referral ID Status Reason Start Date Expiration Date Visits Requested Visits Authorized [id number] Pending Review PCP Requested Referral 12/12/2021 12/12/2022 1 1 Additional Source Comments INFORMATION SOURCE (unrecogn ized section and content) DATE CREATED AUTHOR 06/20/2020 [facility] DATE CREATED AUTHOR AUTHOR'S ORGANIZ ATION 06/27/2020 [facility] DATE CREATED AUTHOR AUTHOR'S ORGANIZ ATION 12/01/2020 [facility] DATE CREATED AUTHOR AUTHOR'S ORGANIZ ATION 02/23/2021 [facility] DATE CREATED AUTHOR AUTHOR'S ORGANIZ ATION 02/23/2021 [employer] DATE CREATED AUTHOR AUTHOR'S ORGANIZ ATION 12/26/2021 [facility] DATE CREATED AUTHOR AUTHOR'S ORGANIZ ATION 07/02/2022 [facility]ical Specialist DATE CREATED AUTHOR AUTHOR'S ORGANIZ ATION 10/08/2022 [facility] DATE CREATED AUTHOR AUTHOR'S ORGANIZ ATION 10/20/2022 [facility] DATE CREATED AUTHOR AUTHOR'S ORGANIZ ATION 07/27/2023 [facility] dical Specialists EPIC DATE CREATED AUTHOR AUTHOR'S ORGANIZ ATION 08/09/2023 [facility] DATE CREATED AUTHOR AUTHOR'S ORGANIZ ATION 09/14/2023 [facility] Source Comments (unrecognize d section and content) In the event this informatio n is protected by the Federal Confidentiality of Alcohol and Drug Abuse Patient Records regulations: The Federal rules restrict any use of the information to criminally investigate or prosecute any alcohol or drug abuse patient.[facility] the event this information is protected by the Federal Confidentiality of Alcohol and Drug Abuse Patient Records regulations: The Federal rules restrict any use of the information to criminally investigate or prosecute any alcohol or drug abuse patient.[facility] Hospital[facility] the event this information is protected by the Federal Confidentiality of Alcohol and Drug Abuse Patient Records regulations: The Federal rules restrict any use of the information to criminally investigate or prosecute any alcohol or drug abuse patient.[facility] Hospital[facility] the event this information is protected by the Federal Confidentiality of Alcohol and Drug Abuse Patient Records regulations: The Federal rules restrict any use of the information to criminally investigate or prosecute any alcohol or drug abuse patient.[facility] Hospital[facility] the event this information is protected by the Federal Confidentiality of Alcohol and Drug Abuse Patient Records regulations: The Federal rules restrict any use of the information to criminally investigate or prosecute any alcohol or drug abuse patient.[facility] the event this information is protected by the Federal Confidentiality of Alcohol and Drug Abuse Patient Records regulations: The Federal rules restrict any use of the information to criminally investigate or prosecute any alcohol or drug abuse patient.[facility] Reason for Visit (unrecogniz ed section and content) Reason Comments Follow Up Pain ongoing generalized pain. Specialty Diagnoses / Procedures Referred By Contnelida t Referred To Contact RHEUMATOLOGY Diagnoses Follow Up Procedures OFFICE/OUTPATIENT ESTABLISHED MOD MDM 30-39 MIN Follow Up Gayle Washington MD [address] [place] [address] [facility] [address] [place] [address] Referral ID Status Reason Start Date Expiration Date Visits Requested Visits Authorized [id number] Waiting for Response OON/Self Pay Override Patient cleared - OON Required Payment Collected 12/08/2021 03/08/2022 1 1 Reason Comments Appointment Reason Comments Results Care Teams (unrecognized sec tion and content) Pipe Recovery Specialist Relationship Specialty Start Date End Date Kimberley Gibbons DO [address] [facility] [place] [address] PCP - General Family Practice 06/04/21 Pipe Recovery Specialist Relationship Specialty Start Date End Date Kimberley Gibbons, [address] [place] [address] PCP - General Family Practice 06/04/21 Pipe Recovery Specialist Relationship Specialty Start Date End Date Kimberley Gibbons, [address] [place] [address] PCP - General Family Medicine 06/04/21 Pipe Recovery Specialist Relationship Specialty Start Date End Date Kimberley Gibbons DO [address] [place] [address] PCP - General Family Medicine 06/04/21 Pipe Recovery Specialist Relationship Specialty Start Date End Date Kimberley Gibbons DO [address] [place] [address] PCP - General Family Medicine 06/04/21 Pipe Recovery Specialist Relationship Specialty Start Date End Date Kimberley Gibbons DO [address] [place] [address] PCP - General Family Medicine 06/04/21 FOR RECORDS PERTAINING TO PATIENTS WHO ARE OR HAVE BEEN ENROLLED IN A CHEMICAL DEPENDENCY/SUBSTANCEABUSE PROGRAM, SOME INFORMATION MAY BE OMITTED. This clinical summary was aggregated from multiple sources. Caution should be exercised in using it in the provision of clinical care. This summary normalizes information from multiple sources, and as a consequence, information in this document may materially change the coding, format and clinical context of patient data. In addition, data may be omitted in some cases. CLINICAL DECISIONS SHOULD BE BASED ON THE PRIMARY CLINICAL RECORDS. [employer] [facility]. provides no warranty or guarantee of the accuracy or completeness of information in this document.
[2023-09-20 10:55] VITALS: BP 132/89; PULSE 85; RESP 18; TEMP 36.2; O2SAT 94
[2023-09-20 11:18] VITALS: BP 129/73; PULSE 82; RESP 18; O2SAT 95
[2023-09-20 11:19] VITALS: BP 131/77; PULSE 90; RESP 18; O2SAT 90
[2023-09-20] MEDS: BUPIVACAINE HCL 0.25% PF 25 MG/10 ML VIAL 2 ML INJ (11:20)
[2023-09-20] MEDS: IOHEXOL 240 MG/ML - 10 ML VIAL 12 MG INJ (11:20)
--- NOTE | 2023-09-20 11:20 | W.PM.PROCNOT ---
Date of procedure: 09/20/23 Pre-op diagnosis: Sacroiliitis, right Post-op diagnosis: same as pre-op Procedure: Procedure: Right sacroiliac joint injection Medications: Bupivacaine 0.25% 3cc, kenalog 40mg After informed consent was obtained, the patient was brought to the medical procedure unit and placed in the prone position, when a timeout was completed verifying correct patient, procedure, site, positioning, implant, and/or special equipment.? The skin overlying the area was prepped and draped in standard sterile fashion using alcohol.? A 25-gauge needle was inserted towards the right sacroiliac joint under direct fluoroscopic imaging.? Needle tip was advanced until the joint was encountered.? We instilled a total of 3 mL of solution.? Postoperatively needles were removed.? The patient tolerated the procedure well without complication.? The patient reported reduction in pain symptoms postoperatively. Anesthesia: Local Surgeon: Rosibel Cotton Pathology: none sent Condition: stable Disposition: no change
[2023-09-20] MEDS: TRIAMCINOLONE ACETONIDE 40 MG/ML VIAL INJ (11:21)
[2023-09-20] MEDS: LIDOCAINE HCL 2% PF 100 MG/5 ML VIAL 1 ML INJ (11:21)
== END 2023-09-20 11:24 | disposition home or self-care (01) ==
LOC: SURGOUT 09:58
PROVIDERS: Visit Provider Anesthesiology
DX: M46.1 Sacroiliitis, not elsewhere classified (principal)
CPT/HCPCS: 27096; Q9966

== ENCOUNTER 2023-09-29 09:03 | Outpatient (OUT) | payer OTHER, SELFPAY ==
--- NOTE | 2023-09-29 09:09 | PM.CN ---
Consult Note: HPI Data of Consult Patient: known to practice within the last 3 years Requesting Physician: Stephanie Mike NP Primary Care Provider: Non-Staff Physician, MD Consult Narrative Reason for consult: establish chronic low back and right hip Narrative: Lizbeth Garcia a pleasant 53 year old female presents for evaluation of chronic pain. Patient has a hx of cervical RFAs with Dr Thornton and tailbone RFAs with Dr Caballero. Hx of cervical fusion at C4-7 with plate at 6-7 per pt, however xray imaging shows mechnical fusion at C5-6. Lumbar spine surgery with lumbosacral fusion per pt L5-Sacral. Patient reporting pain today 8/10 throbbing stab pain in right low back, hip, and neck. Patient has a hx of chronic neck pain which is also increasing to 10/10 at times. Pain increased with standing/walking, housework, bending, stairs, activity, pain decreased with sitting and lying. Patient finds mild benefit from ibuprofen, celebrex. Patient failed PT in the past, active in HEP >6 weeks without benefit. Patient denies numbness tingling weakness of legs. Denies loss of bowel/bladder. Recent xray imaging of cervical spine and lumbar spine consistent with degenerative changes, SIJ no abnormal findings. cc:: CC: Stephanie Mike NP Review of Systems ROS Status of ROS 10 or more systems reviewed and unremarkable except as noted in history and below Musculoskeletal Reports: back pain, neck pain and joint pain [facility] Medical History Former cigarette smoker ?Z87.891 - Personal history of nicotine dependence (ICD-10) Heartburn ?R12 - Heartburn (ICD-10) Acid reflux ?K21.9 - Gastro-esophageal reflux disease without esophagitis (ICD-10) Osteoarthritis ?M19.90 - Unspecified osteoarthritis, unspecified site (ICD-10) Low back pain ?M54.50 - Low back pain, unspecified (ICD-10) Factor 5 Leiden mutation, heterozygous ?D68.51 - Activated protein C resistance (ICD-10) Anxiety ?F41.9 - Anxiety disorder, unspecified (ICD-10) Obesity ?E66.9 - Obesity, unspecified (ICD-10) Diabetes ?E11.9 - Type 2 diabetes mellitus without complications (ICD-10) SOB (shortness of breath) ?R06.02 - Shortness of breath (ICD-10) High cholesterol ?E78.00 - Pure hypercholesterolemia, unspecified (ICD-10) Hypertension ?I10 - Essential (primary) hypertension (ICD-10) Irregular heart beat ?I49.9 - Cardiac arrhythmia, unspecified (ICD-10) Angina at rest ?I20.89 - Other forms of angina pectoris (ICD-10) Surgical History H/O arthroscopic knee surgery ?Z98.890 - Other specified postprocedural states (ICD-10) H/O lumbosacral spine surgery ?Z98.890 - Other specified postprocedural states (ICD-10) H/O cervical spine surgery ?Z98.890 - Other specified postprocedural states (ICD-10) H/O arthroscopy of shoulder ?Z98.890 - Other specified postprocedural states (ICD-10) H/O carpal tunnel repair ?Z98.890 - Other specified postprocedural states (ICD-10) H/O: hysterectomy ?Z90.710 - Acquired absence of both cervix and uterus (ICD-10) Meds Home Medications and Allergies Home Medications ?Medication ?Instructions ?Recorded ?Confirmed ?Type B-complex with vitamin C 1 tab PO DAILY 08/26/23 09/20/23 History acetaminophen 500 mg tablet 1,500 mg PO DAILY PRN pain 08/26/23 09/20/23 History (Tylenol Extra Strength) amlodipine 5 mg tablet 5 mg PO DAILY 08/26/23 09/20/23 History aspirin 81 mg capsule 81 mg PO DAILY 08/26/23 09/20/23 History atorvastatin 80 mg tablet 80 mg PO DAILY 08/26/23 09/20/23 History celecoxib 400 mg capsule (Celebrex) 400 mg PO BID 08/26/23 09/20/23 History cholecalciferol (vitamin D3) 50 50 mcg PO DAILY 08/26/23 09/20/23 History mcg (2,000 unit) capsule clonazepam 0.5 mg tablet 0.5 mg PO BID 08/26/23 09/20/23 History cyclobenzaprine 10 mg tablet 10 mg PO BID 08/26/23 09/20/23 History desvenlafaxine succinate 100 mg 100 mg PO DAILY 08/26/23 09/20/23 History tablet,extended release 24 hr (Pristiq) ezetimibe 10 mg tablet 10 mg PO DAILY 08/26/23 09/20/23 History lamotrigine 300 mg tablet,extended 300 mg PO DAILY 08/26/23 09/20/23 History release 24 hr magnesium glycinate PO 08/26/23 History metoprolol succinate 25 mg 25 mg PO DAILY 08/26/23 09/20/23 History tablet,extended release 24 hr quetiapine 200 mg tablet 200 mg PO DAILY 08/26/23 09/20/23 History Allergies Allergy/AdvReac Type Severity Reaction Status Date / Time ibuprofen AdvReac Mild Verified 09/20/23 10:52 tramadol AdvReac Mild Verified 09/20/23 10:52 Exam Constitutional Documenting provider has reviewed patient's vital signs: yes Common normals: no apparent distress, oriented x3, healthy appearing, alert and well nourished General appearance: cooperative HENSD Common normals: normocephalic, hearing grossly normal bilaterally and moist oral mucous membranes Head and scalp: normocephalic Eye Common normals: PERRL Pupil: PERRL Neck & C-Spine Common normals: full ROM General: normal visual inspection Cervical spine: cervical ROM abnormal and pain with cervical ROM Other: axial pain without radiculopathy however positive spurlings pain following bilateral C3-4 C4-5 facets Chest Common normals: inspection of chest normal Respiratory Common normals: normal respiratory effort, no retractions and no use of accessory muscles Back & Pelvis Lumbar spine/lower back: ROM limited and pain with ROM Sacroiliac joints: SI joint(s) abnormal Other: right SIJ pain over PSIS, positive fabers fadirs gaenslens and thigh thrust. negative for radiculopathy. sensation intact BLE, strength 5/5 in BLE Extremity Common normals: normal to inspection and full ROM Neuro Common normals: oriented x3, CN's II-XII intact bilaterally, moves all extremities, no focal motor deficits, no sensory deficits noted and deep tendon reflexes 2+ bilaterally Sensorium/orientation: alert Motor exam: strength 5/5 throughout and no movement abnormalities noted Psych Common normals: mental status grossly normal, thought process normal, cooperative, affect normal, speech normal and activity/motor behavior normal Speech: normal speech Thought process: normal thought process Results Imaging cervical xray: Attestation: I have reviewed the pertinent imaging results. Radiologist's impression: FINDINGS: BONES: Straightening of normal lordotic curvature. Mechanical fusion C5-6 via anterior plate and screws; no hardware fracture loosening. No bone fracture or spondylolisthesis. Multilevel mild degenerative facet arthropathy. DISC SPACES: Moderate-marked narrowing C5-C6; unchanged. PARASPINOUS: Negative. No paraspinous abnormality is seen. OTHER: Negative. lumbar xray: Attestation: I have reviewed the pertinent imaging results. Radiologist's impression: BONES: Minimal anterior listhesis of L5 on S1 with prior posterior mechanical stabilization; no hardware fracture loosening. No change in alignment during flexion and extension. Moderate degenerative facet arthropathy L3-4 through L5-S1. DISC SPACES: Mild narrowing L4-5. Intervertebral disc spacer L5-S1 with mild narrowing. PARASPINOUS: Negative. No paraspinous abnormality is seen. OTHER: Negative. Additional Findings Additional findings: If on a controlled substance or opioids, I have checked an [place] report on this patient and there are no aberrancies noted in the prescribing history.??If on a controlled substance or opioid a drug screen was completed and reviewed within the last year, and if there has not been a drug screen completed we ordered one today to monitor higher risk, state monitored pain medication use. As part of providing excellent, safe, comprehensive care, the following was completed at our patient's visit: 1. A medication reconciliation and review to ensure accurate knowledge of current/active medications, including asking our patients to inform us about any [id number] medications or herbal remedies/nutritional supplements/alternative remedies. 2. A review to specifically ensure our patients have had annual screening for screening for depression, screening for tobacco use, and screening for unhealthy alcohol use. For concerning screenings had a discussion with the patient, provided patient education, and recommended follow-up with primary care provider when appropriate. If patient noted with a risk of falling, they received education on strength, gait, and balance training to prevent future risk of falling. Assessment and Plan Assessment and Plan (1) Sacroiliitis: (2) Failed back syndrome: (3) Cervical spondylosis: (4) Chronic pain syndrome: (5) Encounter for medication monitoring: (6) Chronic prescription benzodiazepine use: (7) Failed neck syndrome: Plan bilateral C3-4 C4-5 facet medial branch block x2 working towards thermal RFA for chronic neck pain update cervical MRI without contrast xray imaging of cervical spine, lumbar spine, and SIJ reviewed with pt recent right SIJ injection providing mild ongoing relief NNCP hx of chronic benzodiazepine use and marijuana use continue current medications as tolerated continue HEP as tolerated f/u after injection +
--- OUTSIDE RECORDS SUMMARY | 2023-09-29 09:29 | XMS_ITS | CCD ---
Author Organization [facility] Care Team Providers Care Mental Health Nurse Name Role Phone ZAIRE, CRISTOBAL F Primary Care Unavailable FELICIA, FMEI H. Attending Unavailable FELICIA, FEMI H. Referring [...] Care Unavailable FELICIA, FEMI H. Referring Unavailable [place], Cristobal F Unavailable Edwige DO, Kimberley Leora Primary Care Provider Emmett Brunner Unavailable Letty Olson Unavailable Edwige DO, Kimberley Leora Primary Care Provider [phone] EDWIGE, KIMBERLEY LEORA Referring Unavailable EDWIGE, KIMBERLEY LEORA Primary Care Unavailable ARNAUD WASHINGTONT Attending Unavailable EDWIGE, KIMBERLEY LEORA Primary Care Unavailable GAYLE WASHINGTON Referring Unavailable MISC, DR LOPEZ Consulting Unavailable MISC, DR LOPEZ Primary Care Unavailable DAYAMI ., DR RACHEL Layne Attending Unavailable DAYAMI ., DR RACHEL Layne Admitting Unavailable FER .BEN Consulting Unavailable MISC, DR LOPEZ Consulting Unavailable MISC, DR LOPEZ Primary Care Unavailable DAYAMI ., DR RACHEL Layne Attending Unavailable DAYAMI ., DR RACHEL Layne Admitting Unavailable MONROE .BEN Consulting Unavailable FER .BEN Consulting Unavailable MISC, DR LOPEZ Primary Care Unavailable DAYAMI ., DR RACHEL Layne Attending Unavailable DAYAMI ., DR RACHEL Layne Admitting Unavailable MISC, [...] Attending Unavailable TIMMIS, DR MONTGOMERY Admitting Unavailable ARTURO PINK Consulting Unavailable JOSIAH WILKS Consulting Unavailable TIMMIS, [...] AYA Referring Unavailable KIMBERLEY GIBBONS Attending Unavailable CELSETINA, ELODIA Attending Unavailable RICKY, SOLITARIO Attending Unavailable RICKY, SOLITARIO Attending Unavailable ALGHOTHANI, MOHAMAD Referring Unavailable ALGHOTHANI, MOHAMAD Admitting Unavailable ALGHOTHANI, MOHAMAD Attending Unavailable CELESTINA, ELODIA Referring Unavailable CELESTINA, ELODIA Attending Unavailable Unavailable Primary Care Provider Unavailabl e NICOLE TELLES Referring Unavailable NICOLE TELLES Referring Unavailable Yury ARGUELLO, Rosibel Laurent Attending Unavailable Allergies Allergy Classification Reported Allergen(s) Allergy Type Date of Onset Reaction(s) Facility (9 sources) Ibuprofen; 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: [IBUPROFEN] Drug Allergy 0 Unknown, Diarrhea [facility] (20 sources) traMADol; 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: [TRAMADOL] Drug Allergy 9 Unknown, Nausea Only [facility] (1 source) Ibuprofen Drug Allergy [facility] (1 source) traMADol Drug Allergy 2 [facility] Repository Medications Current Medications Medication Drug Class(es) [...] above: Take 1 capsule by mo uth twice daily. Take 1 capsule by mo [...] daily. 0 Active take 1 tablet by bautista th every twenty-four hours Pristiq 100 MG 1 [...] tablet by mouth 0 12/01/2022 12/01/2023 Active [employer] Fatty Acids (FISH OIL) 1200 MG CAPS (1 source) [employer] Fatty Ac ids (FISH OIL) 1200 MG [...] Take 0.5 mg by mouth once daily. nmnue-ii-1-nup-djk-fyfa joey-ast 1,332-064-71-80 mg cap (4 sources) ornyr-kx-2-dha-e pa-joey spho-ast 1,734-926-77-80 mg cap Take by mouth. 0 Active Comment on above: Take by mouth. lamoTRIgine 100 mg oral tablet (20 sources) Mood Stabilizer, Anti-epileptic Agent Start: 12-03-19 22 lamoTRIgine (LAMICTAL) 100 mg tablet take 1.5 [...] tablet (19 sources) Atypical Antipsychotic Start: 05-06-20 21 take 1 tablet by mouth once [...] Onset: 06-05-2021 Chronic Other aftercare (1 source) roasterman (current) use of anticoagulants; 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: [INTERMEDIATE CURRNT USE ANTICOAGULANTS] Onset: 10-19-2022 Episodic Other [...] Deam Pep IgA 1.9 U/mL Normal <7.0 [facility] Comment on above: Result Comment: CELIAC INTERPRETATION <7.0 Negative 7.0-10.0 Equivocal >10.0 Positive units: U/mL Performed By: #### C ELP #### [address] [address] Route Sales Delivery Driver: Talib Clements MD Gliadin Deam Pep IgG <0.4 Normal <7.0 [facility] Comment on above: Result Comment: CELIAC INTERPRETATION <7.0 Negative 7.0-10.0 Equivocal >10.0 Positive units: U/mL Performed By: #### C ELP #### [address] [address] Route Sales Delivery Driver: Talib Clements MD Tiss Transglutam IgA 0.4 U/mL Normal <7.0 [facility] Comment on above: Result Comment: CELIAC INTERPRETATION <7.0 Negative 7.0-10.0 Equivocal >10.0 Positive units: U/mL Performed By: #### C ELP #### [address] [address] Route Sales Delivery Driver: Talib Clements MD IgA [Mass/Vol] 184 mg/dL Normal 70-400 [facility] Comment on above: Performed By: #### C ELP #### [address] [address] Route Sales Delivery Driver: Talib Clements MD H. pylori Antigenon 09-14-19 24 H. pylori Antigen Specimen Description .FECES Direct Exam NEGATIVE Report Status FINAL 09/14/2023 Normal [facility] Comment on above: Performed By: #### F HPY #### [address] [address] Route Sales Delivery Driver: Talib Clements MD [facility] [address] [place] [address] Route Sales Delivery Driver: David Hough MD Orders Onlyon 08-05-2023 Orders Only [id number] Lexi Garcia 1970 F Date Provider Department Center 08/05/2023 895-SHANON CISNEROS [facility] Family History Problem Relation Age of Onset COPD Mother Coronary artery disease Father 56 Family Status - Relation Status Age at Mother Alive Father [facility] Follow-Upon 06-22-2023 Follow-Up [id number] Lexi Garcia 1970 F Date Provider Department Center 06/22/2023 1214-SOLITARIO GARCÍA C RHEUM [facility] Family History Problem Relation Age of Onset COPD Mother Coronary artery disease Father 56 Family Status - Relation Status Age at Mother Alive Father Level of Service:53784 [place] OFFICE/OUTPATIENT ESTABLISHED MOD MDM 30 MIN () Reason for Visit and Comments: Follow-up [891880] - Normal [facility] DEXA BONE DENSITYon 05-11-20 DEXA BONE [...] Not Available XR HAND 3+ VIEWS LEFTon XR HAND 3+ VIEWS LEFT FINDINGS: No [...] Not Available Office Visiton 04-27-2023 Follow-up visit [id number] Lexi Garcia 1970 Provider Department Center 04/27/2023 SOLITARIO [facility] RHEUM [facility] Family History Problem Relation Age of Onset COPD Mother Coronary artery disease Father 56 Family Status - Relation Status Age at Mother Alive Father Level of Service:11250 [place] OFFICE/OUTPATIENT NEW MODERATE MDM 45-59 MINUTES (GC) Reason for Visit and Comments: 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 I let her know I sent a new mychart code so she can establish mychart and view her visit information there [facility] Office Visiton 02-10-2023 Follow-up visit [id number] Lexi Garcia 1970 Provider Department Center 02/10/2023 ELODIA ZAFAR ALYSA [facility] Family History Problem Relation Age of Onset COPD Mother Coronary artery disease Father 56 Family Status - Relation Status Age at Mother Alive Father Level of Service:15803 [place] OFFICE/OUTPATIENT ESTABLISHED MOD MDM 30 MIN Reason for Visit and Comments: Follow-up [521856] - Pt is here for f/u heart cath [facility] HPon 01-25-2023 -- Attestation signed by Prakash Gil MD at 01/25/2023 10:34 AM H and [...] understands these risks and wishes to proceed. Prakash Gil MD H&P reviewed. The patient was examined and there are no changes to the H&P. 52 year old female who presents today for hr scheduled procedure after she had a positive stress test. Patient has been having anginal episodes but denied any active chest or any other acute cardiac issues. Will be undergoing LHC to evaluate coronaries. [facility] NURSNOTEon 01-25-2023 NURSNOTE RN educated pt on d/ c instructions. RN encouraged pt to voice any questions or concerns. Pt verbalizes no questions or concerns at this time. Pt was wheeled off of unit with all of belongings. [facility] JOSEPHINE Pozo made awar e of Ibuprophen allergy. States to give Aspirin 325mg oral today. Patient tolerates her 81mg Aspirin at home. [facility] HPon 01-13-2023 HP Reviewed Echocardiogram- 12/21/22 Normal [...] symptoms. Mixed hyperlipidemia Continue statin Elodia Oscar METAL CANS SUPERVISOR Division of Cardiology, [facility]- [phone] Pager- [phone] Email- [email or web address] [facility] Orders Onlyon 01-13-2023 Orders Only [id number] Lexi Garcia 1970 Date Provider Department Center 01/13/2023 ELODIA ZAFAR CARD [facility] Family History Problem Relation Age of Onset COPD Mother Coronary artery disease Father 56 Family Status - Relation Status Age at Mother Alive Father [facility] 29on 12-01-2022 29 Addended by: ELODIA OSCAR on: 12/01/2022 03:39 PM Modules accepted: Orders [facility] Office Visiton 12-01-2022 Follow-up visit [id number] Lexi Garcia 1970 Date Provider Department Center 12/01/2022 ELODIA ZAFAR [facility] CARD [facility] Family History Problem Relation Age of Onset COPD Mother Coronary artery disease Father 56 Family Status - Relation Status Age at Mother Alive Father Level of Service:49649 [place] OFFICE/OUTPATIENT NEW MODERATE MDM 45-59 MINUTES Reason for Visit and Comments: New Patient [632] [facility] CBC AUTO DIFFon 10-07-2022 BASO # 0.0 103/ul Normal 0.0-0.1 [facility] Comment on above: Performed By: #### C BC #### [facility] [address] [address] [address] Donna Cantrell Basophils/100 WBC (Bld) 0.5 % Normal 0.2-2.0 [facility] Comment on above: Performed By: #### C BC #### [facility] [address] [address] [address] Donna Cantrell EO # 0.0 103/ul Normal 0.0-0.7 [facility] Comment on above: Performed By: #### C BC #### [facility] [address] [place] [address] Dr. Donna Cantrell Eosinophils/100 WBC (Bld) 0.0 % Critically low 0.9-7.0 [facility] Comment on above: Performed By: #### C BC #### [facility] [address] [place] [address] Dr. Donna Cantrell Erythrocyte distribution width (RBC) [Ratio] 13.6 % Normal 11.0-15.0 [facility] Comment on above: Performed By: #### C BC #### [facility] [address] [place] [address] Dr. Donna Cantrell Hematocrit (Bld) [Volume fraction] 42.0 % Normal 36.0-48.0 [facility] Comment on above: Performed By: #### C BC #### [facility] [address] [place] [address] Dr. Donna Cantrell Hemoglobin (Bld) [Mass/Vol] 14.4 g/dL Normal 12.0-16.0 [facility] Comment on above: Performed By: #### C BC #### [facility] [address] [place] [address] Dr. Donna Cantrell IG # 0.06 10e3/ul Critically high 0.00-0.03 [facility] Comment on above: Performed By: #### C BC #### [facility] [address] [place] [address] Dr. Donna Cantrell IG % 0.8 % Critically high 0.0-0.5 [facility] Comment on above: Performed By: #### C BC #### [facility] [address] [place] [address] Dr. Donna Cantrell LYMPH # 2.5 103/ul Normal 1.2-3.8 [facility] Comment on above: Performed By: #### C BC #### [facility] [address] [place] [address] Dr. Donna Cantrell Lymphocytes/100 WBC (Bld) 30.8 % Normal 20.5-60.0 [facility] Comment on above: Performed By: #### C BC #### [facility] [address] [place] [address] Dr. Donna Cantrell MANUAL DIFF REQ NO Normal [facility] Comment on above: Performed By: #### C BC #### [facility] [address] [place] [address] Dr. Donna Cantrell MCH (RBC) [Entitic mass] 30.3 pg Normal 26.7-34.0 [facility] Comment on above: Performed By: #### C BC #### [facility] [address] [place] [address] Dr. Donna Cantrell MCHC (RBC) [Mass/Vol] 34.3 g/dL Normal 29.9-35.2 [facility] Comment on above: Performed By: #### C BC #### [facility] [address] [place] [address] Dr. Donna Cantrell MCV (RBC) [Entitic vol] 88.2 fL Normal 81.0-99.0 [facility] Comment on above: Performed By: #### C BC #### [facility] [address] [place] [address] Dr. Donna Cantrell MONO # 0.5 103/ul Normal 0.3-0.8 [facility] Comment on above: Performed By: #### C BC #### [facility] [address] [place] [address] Dr. Donna Cantrell Monocytes/100 WBC (Bld) 6.4 % Normal 1.7-12.0 [facility] Comment on above: Performed By: #### C BC #### [facility] [address] [place] [address] Dr. Donna Cantrell NEUT # 4.9 103/ul Normal 1.4-6.5 [facility] Comment on above: Performed By: #### C BC #### [facility] [address] [place] [address] Dr. Donna Cantrell Neutrophils/100 WBC (Bld) 61.5 % Normal 43.0-75.0 [facility] Comment on above: Performed By: #### C BC #### [facility] [address] [place] [address] Dr. Donna Cantrell Platelet mean volume (Bld) [Entitic vol] 9.9 fL Normal 9.5-13.5 [facility] Comment on above: Performed By: #### C BC #### [facility] [address] [place] [address] Dr. Donna Cantrell PLT 234 103/ul Normal 150-450 [facility] Comment on above: Performed By: #### C BC #### [facility] [address] [place] [address] Dr. Donna Cantrell RBC 4.76 106/ul Normal 4.20-5.40 [facility] Comment on above: Performed By: #### C BC #### [facility] [address] [place] [address] Dr. Donna Cantrell WBC 8.0 103/ul Normal 4.0-11.0 [facility] Comment on above: Performed By: #### C BC #### [facility] [address] [place] [address] Dr. Donna Cantrell PROF CHEM 8 (BAS METB)on Anion gap [Moles/Vol] 13.9 mmol/L Normal [facility] Comment on above: Performed By: #### B MP #### [facility] [address] [place] [address] Dr. Donna Cantrell Calcium [Mass/Vol] 8.9 mg/dL Normal 8.5-10.1 [facility] Comment on above: Performed By: #### B MP #### [facility] [address] [place] [address] Dr. Donna Cantrell Chloride [Moles/Vol] 104 mmol/L Normal 98-107 [facility] Comment on above: Performed By: #### B MP #### [facility] [address] [place] [address] Dr. Donna Cantrell CO2 [Moles/Vol] 26.3 mmol/L Normal 21.0-32.0 [facility] Comment on above: Performed By: #### B MP #### [facility] [address] [address] [address] Donna Cantrell Creatinine [Mass/Vol] 0.91 mg/dL Normal 0.55-1.02 [facility] Comment on above: Performed By: #### B MP #### [facility] [address] [address] [address] Donna Cantrell EGFR-AF SAMOAN >60 Normal >=60 [facility] Comment on above: Performed By: #### B MP #### [facility] [address] [address] [address] Donna Cantrell EGFR-NON AF SAMOAN >60 Normal >=60 [facility] Comment on above: Performed By: #### B MP #### [facility] [address] [place] [address] Dr. Donna Cantrell Glucose [Mass/Vol] 127 mg/dL Critically high 74-106 [facility] Comment on above: Performed By: #### B MP #### [facility] [address] [address] [address] Donna Cantrell Potassium [Moles/Vol] 4.2 mmol/L Normal 3.5-5.1 [facility] Comment on above: Performed By: #### B MP #### [facility] [address] [address] [address] Donna Cantrell Sodium [Moles/Vol] 140 mmol/L Normal 136-145 [facility] Comment on above: Performed By: #### B MP #### [facility] [address] [address] [address] Donna Cantrell Urea nitrogen [Mass/Vol] 15.0 mg/dL Normal 7.0-18.0 [facility] Comment on above: Performed By: #### B MP #### [facility] [address] [place] [address] Dr. Donna Cantrell Urea nitrogen/Creatinine [Mass ratio] 16.5 mg/mg Normal [facility] Comment on above: Performed By: #### B MP #### [facility] [address] [place] [address] Dr. Donna Cantrell PROTIMEon 10-07-2022 INR Coag (PPP) [Relative time] {INR} Normal [facility] Comment on above: Performed By: #### B LTM #### [facility] [address] [place] [address] Dr. Donna Cantrell INR GUIDELINES SEE BELOW Normal [facility] Comment on above: Result Comment: SHIRA RED INR: 2.0 - 3.0 CONDITIONS NOT LISTED BELOW 2.5 - 3.5 FOR PROSTHETIC HEART VALVE REPLACEMENT 2.5 - 3.5 RECURRENT THROMBOSIS Performed By: #### B LTM #### [facility] [address] [place] [address] Dr. Donna Cantrell PT Coag (PPP) [Time] 9.7 s Normal 9.0-11.6 [facility] Comment on above: Performed By: #### B LTM #### [facility] [address] [place] [address] Dr. Donna Cantrell PTTon 10-07-2022 aPTT Coag (Bld) [Time] 29.6 s Normal 22.3-36.2 [facility] Comment on above: Performed By: #### B LTM #### [facility] [address] [place] [address] Dr. Donna Cantrell SCREENING MAMMOGRAM W/AJ, BILATERAL*on [...] VERY IMPORTANT TO YOUR HEALTH. THE CURRENT [employer] [employer] GUIDELINES RECOMMENDS ANNUAL MAMMOGRAPHY BEGINNING AT AGE 38 THIS FACILITY USES A REMINDER SYSTEM TO ENSURE ALL PATIENTS RECEIVE REMINDER NOTIFICATIONS AT THE APPROPRIATE TIME BASED ON THE RECOMMENDATIONS OF THIS EXAM. Report reported and signed by Eder Barraza on 07/01/2022 1545 Normal [facility] Aerial Photogrammetrist XR Shoulder Complete Right*o n 07-01-2022 XR [...] by Eder Barraza on 07/02/2022 0746 Normal [facility] Specialist XR Spine Lumbar Complete w/F jama AND [place] 07-01-2022 XR Spine Lumbar Complete w/Flex AND [...] by Eder Barraza on 07/02/2022 0744 Normal [facility] Aerial Photogrammetrist [facility] LEXI GARCIA ([id number]) 1970 F Date Time Provider Department 12/17/21 GAYLE WASHINGTON During your visit today, we recorded the following information about you: Gayle Washington MD 12/17/2021 2:54 PM Signed Please Call patient if MyChart note not read to review results/released to My Chart if tests completed at [facility]: Mildly low vitamin D- increase [...] PO Daily January 07, 2021 7:15am - vepfk-xb-8-dha-epa-joey spho-ast 1,648-142-21-80 mg cap Take by mouth. - PNV [...] - Estradiol (more content not included)... Normal [facility] BLEEDING TIMEon 12-16-2021 BLEEDING TIME 7.0 min Normal 1.0-8.0 [facility] Comment on above: Result Comment: test done by Selam Almodovar Performed By: #### B LTM #### [facility] [address] [place] [address] Dr. Donna Cantrell 25(OH)D3 [facility] 25-hydroxyvitamin D3 [Mass/Vol] 29.6 ng/mL Low 31.0-80.0 [facility] Comment on above: Order Comment: Speci men Type: BLOOD SPECIMEN Ordering Facility: [facility] Address: [address] [place] [address] Result Comment: Clas sification of 25 [place] Vitamin D status: Deficiency/Insufficiency: < or = 30 ng/ml. Sufficiency/Optimal Levels: 31-80 ng/mL Toxicity: > 100 ng/mL. Test performed by chemiluminescent immunoassay. Performed By: #### 1 989-3 #### [facility] CLIA [id number] [address] [place] [address] [place] CBC panel Auto (Bld)on 12-12 Erythrocyte distribution width (RBC) [Ratio] 14.4 % Normal 11.5-15.0 [facility] Comment on above: Order Comment: Speci men Type: BLOOD SPECIMEN Ordering Facility: [facility] Address: [address] [place] [address] Performed By: #### 5 8410-2 #### [facility] CLIA [id number] [address] [place] [address] [place] Hematocrit (Bld) [Volume fraction] 45.2 % Normal 36.0-46.0 [facility] Comment on above: Order Comment: Speci men Type: BLOOD SPECIMEN Ordering Facility: [facility] Address: [address] [place] [address] Performed By: #### 5 8410-2 #### [facility] CLIA [id number] [address] [place] [address] [place] Hemoglobin (Bld) [Mass/Vol] 14.8 g/dL Normal 11.5-15.5 [facility] Comment on above: Order Comment: Speci men Type: BLOOD SPECIMEN Ordering Facility: [facility] Address: [address] [place] [address] Performed By: #### 5 8410-2 #### [facility] CLIA [id number] [address] [place] [address] [place] MCH (RBC) [Entitic mass] 29.7 pg Normal 26.0-34.0 [facility] Comment on above: Order Comment: Speci men Type: BLOOD SPECIMEN Ordering Facility: [facility] Address: [address] [place] [address] Performed By: #### 5 8410-2 #### [facility] CLIA [id number] [address] [place] [address] [place] MCHC (RBC) [Mass/Vol] 32.7 g/dL Normal 30.5-36.0 [facility] Comment on above: Order Comment: Speci men Type: BLOOD SPECIMEN Ordering Facility: [facility] Address: [address] [place], [place] [address] Performed By: #### 5 8410-2 #### [facility] CLIA [id number] [address] [place] [address] [place] MCV (RBC) [Entitic vol] 90.8 fL Normal 80.0-100.0 [facility] Comment on above: Order Comment: Speci men Type: BLOOD SPECIMEN Ordering Facility: [facility] Address: [address] [place], [place] [address] Performed By: #### 5 8410-2 #### [facility] CLIA [id number] [address] [place] [address] [place] Nucleated RBC (Bld) [#/Vol] 10*3/uL Normal <0.01 [facility] Comment on above: Order Comment: Speci men Type: BLOOD SPECIMEN Ordering Facility: [facility] Address: [address] [place], [place] [address] Performed By: #### 5 8410-2 #### [facility] CLIA [id number] [address] [place] [address] [place] Platelet mean volume (Bld) [Entitic vol] 10.7 fL Normal 9.0-12.7 [facility] Comment on above: Order Comment: Speci men Type: BLOOD SPECIMEN Ordering Facility: [facility] Address: [address] [place], [place] [id number] Performed By: #### 5 8410-2 #### [facility] CLIA [id number] [address] [place] [address] [place] Platelets (Bld) [#/Vol] 259 10*3/uL Normal 150-400 [facility] Comment on above: Order Comment: Speci men Type: BLOOD SPECIMEN Ordering Facility: [facility] Address: [address] [place] [address] Performed By: #### 5 8410-2 #### [facility] CLIA [id number] [address] [place] [address] [place] RBC (Bld) [#/Vol] 4.98 10*6/uL Normal 3.90-5.20 [facility] Comment on above: Order Comment: Speci men Type: BLOOD SPECIMEN Ordering Facility: [facility] Address: [address] [place] [address] Performed By: #### 5 8410-2 #### [facility] CLIA [id number] [address] [place], [place] [address] [place] [address] [place] WBC (Bld) [#/Vol] 9.25 10*3/uL Normal 3.70-11.00 [facility] Comment on above: Order Comment: Speci men Type: BLOOD SPECIMEN Ordering Facility: [facility] Address: [address] [place] [address] Performed By: #### 5 8410-2 #### [facility] CLIA [id number] [address] [place] [address] [place] CNOVon 12-12-2021 CNOV Office Visit (AMARJIT ) LEXI GARCIA ([id number]) 1970 F Date Time Provider Department 12/12/21 [...] R shoulder, L elbow, neck. Reports pain -12/12. L>R knees, L knee slightly better after L knee scope/cleaned out. L elbow locks up. minimal AM stiffness. Fell 3times since last office visit, flat ground knees give out. COVID vaccine [employer] 06/26/21. Feels safe at home. 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 pain recommendations/inject ions, prn acetaminophen, start prn heat/ice/otc arthritis creams, low impact weightbearing exercise as tolerated, avoid aggravating triggers,supportive care, start flexeril/notify office if not tolerated, improved with mobic, see ortho/pain clinic for jail pain recommendations/inject ions, prn acetaminophen, start prn [...] yes Dactylitis: no H/o precedent/frequent infection(s): no Enthesopathy/[place]'s /heel/plantar tenderness: as above Skin thickening, psoriasis, photosensitivity, purpura: no Nail changes: ridges/ripples Alpecia, patchy: no Eye inflammation: glasses, R retinal hole SICCA: dry eyes Oral/nasal/genital ulcers: no GI problems-diarrhea/blee ding/IBD/Gluten intolerence/Dysphagia: gerd Raynaud's phenomenon/digital ulcers: no Organ inv-Serositis: no Lung disease/ILD: no Myopathy/proximal muscle weakness: no Abnormal Urine or urethritis: no Renal/liver disease: no PRESSER COT[employer] GINNING/PNS/sz/cva/cancer disease: no HEME-Cytopenias/LAD/Cl ots: no Fevers: no [...] ago stable (more content not included)... Normal [facility] CRP SerPl-ncon 12-12-2021 CRP [Mass/Vol] 1.4 mg/dL High <0.9 [facility] Comment on above: Order Comment: Speci men Type: BLOOD SPECIMEN Ordering Facility: [facility] Address: [address] [place], [place] [id number] Performed By: #### 1 988-5, 9, 78347-2, 3083-1 #### [facility] CLIA [id number] [address] [place] [address] [place] Comprehensive metabolic 2000 panelon 12-12-2021 Albumin [Mass/Vol] 4.2 g/dL Normal 3.9-4.9 [facility] Comment on above: Order Comment: Speci men Type: BLOOD SPECIMEN Ordering Facility: [facility] Address: [address] [place], [place] [id number] Performed By: #### 1 988-5, 2132-03, , 3083-1 #### [facility] CLIA [id number] [address] [place] [address] [place] ALP [Catalytic activity/Vol] 140 U/L High 34-123 [facility] Comment on above: Order Comment: Speci men Type: BLOOD SPECIMEN Ordering Facility: [facility] Address: [address] [place], [place] [id number] Performed By: #### 1 988-5, 2132-03, , 3083-1 #### [facility] CLIA [id number] [address] [place] [address] [place] ALT [Catalytic activity/Vol] 23 U/L Normal 7-38 [facility] Comment on above: Order Comment: Speci men Type: BLOOD SPECIMEN Ordering Facility: [facility] Address: [address] [place], [place] [id number] Performed By: #### 1 988-5, 2132-03, , 3083-1 #### [facility] CLIA [id number] [address] [place], [place] [address] [place] Anion gap [Moles/Vol] 10 mmol/L Normal 9-18 [facility] Comment on above: Order Comment: Speci men Type: BLOOD SPECIMEN Ordering Facility: [facility] Address: [address] [place] [address] Performed By: #### 1 988-5, 2132-03, 99679-6, 3083-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 Comment on above: Performed By: #### C BCND #### [facility] [address] [place] [address] MCV (RBC) [Entitic vol] 91.2 fL Normal 82.0-100.0 [facility] Comment on above: Performed By: #### C BCND #### [facility] [address] [place] [address] Platelets (Bld) [#/Vol] 241 10*3/uL Normal 130-400 [facility] Comment on above: Performed By: #### C BCND #### [facility] [address] [place] [address] RBC (Bld) [#/Vol] 4.55 10*6/uL Normal 4.20-5.40 [facility] Comment on above: Performed By: #### C BCND #### [facility] [address] [place] [address] WBC (Bld) [#/Vol] 9.7 10*3/uL Normal 4.8-10.8 [facility] Comment on above: Performed By: #### C BCND #### [facility] [address] [place] [address] COVID-19, NAAon 06-18-2020 Source Swab [employer]PER[employer] swab Normal [facility] Comment on above: Performed By: #### I RCOV #### [facility] [address] [place] [address] Prothrombin Timeon 0 INR Coag (PPP) [Relative time] 1.0 {INR} Normal [facility] Comment on above: Performed By: #### P T ####[facility] [place] [phone] PT Coag (PPP) [Time] 13.1 s Normal 12.3-14.9 [facility] Comment on above: Performed By: #### P T ####[facility] [facility] [place] [phone] Type and Screen Capture 3 sc rn cellon 06-18-2020 Type and Screen Capture 3 scrn cell PATIENT: JOSHUA Doss LOC: [facility], BILL# : [id number] : 1970 SEX: F ORDERED BY: TEENA Lowe ORDERED : 06/18/2020 15:07 COLLECTED: 06/18/2020 15:36 ORDER : [id number] RECEIVED : 06/18/2020 15:36 Second, confirmatory specimen needed to satisfy Group [employer] policy. TEST NAME RESULT UNITS RANGES ABN FL ST ABORH Capture O POS F Antibody 3 Cell Scrn Captu NEG F Normal [facility] Comment on above: Performed By: #### T S3C #### [facility] [address] [place] [address] XR SPINE ENTIRE (2-3 VIEWS)o n 06-18-2020 [...] Ash Horta MD 06/19/20 Final result Normal [facility] FLUORO FOR SURGICAL PROCEDUR ESon 05-09-2020 FLUORO FOR SURGICAL PROCEDURES FLUORO FOR SURGICAL PROCEDURES : 05/09/2020 7:36 AM CLINICAL HISTORY: C-Spine . COMPARISON: None available. Intraoperative fluoroscopy was provided for Dr. Duarte procedure. A total of 17.2 seconds of fluoroscopy was used, with 5 fluoroscopic stills saved. No diagnostic images were obtained. Please see Dr. Duarte surgical notes for completeness. Interpreted by: Maximiliano Rachel MD Signed by: Maximiliano Rachel MD 05/09/20 Final result Normal [facility] COVID-19, NAAon 05-05-2020 COVID-19, BELLE Not Detected Normal Not Detect [facility] Comment on above: Result Comment: This nucleic acid amplification test was developed and its performance characteristics determined by [employer]. Nucleic acid amplification tests include PCR and [...] Performed at: [facility] [address] [facility], [place] [id number] Route Sales Delivery Driver: Altagracia Quiñonez MD, Phone: [phone] Performed By: #### I RCOV ####[facility] [place] [phone] Basic Metabolic Panelon 10-3 Anion gap [Moles/Vol] 12 mmol/L Normal 9-15 [facility] Comment on above: Performed By: #### B MP #### [facility] [address] [place] [address] Calcium [Mass/Vol] 10.5 mg/dL Critically high 8.5-9.9 M [facility] Comment on above: Performed By: #### B MP #### [facility] [address] [place] [address] Chloride [Moles/Vol] 98 mmol/L Normal 95-107 [facility] Comment on above: Performed By: #### B MP #### [facility] [address] [place] [address] CO2 [Moles/Vol] 27 mmol/L Normal 20-31 [facility] Comment on above: Performed By: #### B MP #### [facility] [address] [place] [address] Creatinine [Mass/Vol] 0.82 mg/dL Normal 0.50-0.90 [facility] Comment on above: Performed By: #### B MP #### [facility] [address] [place] [address] GFR/1.73 sq M predicted among blacks MDRD (S/P/Bld) [Vol rate/Area] mL/min/{1.73_m2} Normal >60 [facility] Comment on above: Result Comment: >60 mL/min/1.73m2 EGFR, calc. for ages 18 and older using the MDRD formula (not corrected for weight), is valid for stable renal function. Performed By: #### B MP #### [facility] [address] [place] [address] GFR/1.73 sq M.predicted MDRD (S/P/Bld) [Vol rate/Area] mL/min/{1.73_m2} Normal >60 [facility] Comment on above: Result Comment: >60 mL/min/1.73m2 EGFR, calc. for ages 18 and older using the MDRD formula (not corrected for weight), is valid for stable renal function. Performed By: #### B MP #### [facility] [address] [place] [address] Glucose [Mass/Vol] 84 mg/dL Normal 70-99 [facility] Comment on above: Performed By: #### B MP #### [facility] [address] [place] [address] Potassium [Moles/Vol] 4.6 mmol/L Normal 3.4-4.9 [facility] Comment on above: Performed By: #### B MP #### [facility] [address] [place] [address] Sodium [Moles/Vol] 137 mmol/L Normal 135-144 [facility] Comment on above: Performed By: #### B MP #### [facility] [address] [place] [address] Urea nitrogen [Mass/Vol] 31 mg/dL Critically high 6-20 [facility] Comment on above: Performed By: #### B MP #### [facility] [address] [place] [address] CBC With Platelet No Differe ntialon 05-03-2020 Erythrocyte distribution width (RBC) [Ratio] 14.3 % Normal 11.5-14.5 [facility] Comment on above: Performed By: #### C BCND #### [facility] [address] [place] [address] Hematocrit (Bld) [Volume fraction] 41.3 % Normal 37.0-47.0 [facility] Comment on above: Performed By: #### C BCND #### [facility] [address] [place] [address] Hemoglobin (Bld) [Mass/Vol] 13.6 g/dL Normal 12.0-16.0 [facility] Comment on above: Performed By: #### C BCND #### [facility] [address] [place] [address] MCH (RBC) [Entitic mass] 30.7 pg Normal 27.0-31.3 [facility] Comment on above: Performed By: #### C BCND #### [facility] [address] [place] [address] MCHC (RBC) [Mass/Vol] 33.0 % Normal 33.0-37.0 [facility] Comment on above: Performed By: #### C BCND #### [facility] [address] [place] [address] MCV (RBC) [Entitic vol] 92.9 fL Normal 82.0-100.0 [facility] Comment on above: Performed By: #### C BCND #### [facility] [address] [place] [address] Platelets (Bld) [#/Vol] 241 10*3/uL Normal 130-400 [facility] Comment on above: Performed By: #### C BCND #### [facility] [address] [place] [address] RBC (Bld) [#/Vol] 4.44 10*6/uL Normal 4.20-5.40 [facility] Comment on above: Performed By: #### C BCND #### [facility] [address] [place] [address] WBC (Bld) [#/Vol] 11.0 10*3/uL Critically high 4.8-10.8 [facility] Comment on above: Performed By: #### C BCND #### [facility] [address] [place] [address] COVID-19, NAAon 05-03-2020 Source Swab Anterior nares Normal [facility] Comment on above: Performed By: #### I RCOV ####[facility] [place] [phone] Partial Thromboplastin Timeo n 05-03-2020 aPTT Coag (Bld) [Time] 31.3 s Normal 24.4-36.8 [facility] Comment on above: Performed By: #### P TT #### [facility] [address] [place] [address] Prothrombin Timeon 0 INR Coag (PPP) [Relative time] 0.9 {INR} Normal [facility] Comment on above: Performed By: #### P T #### [facility] [address] [place] [address] PT Coag (PPP) [Time] 11.9 s Low 12.3-14.9 [facility] Comment on above: Performed By: #### P T #### [facility] [address] [place] [address] Type and Screen Capture 3 sc rn cellon 05-03-2020 Type and Screen Capture 3 scrn cell PATIENT: JOSHUA Doss LOC: [facility] BILL# : [id number] : 1970 SEX: F ORDERED BY: STEPHANIE Harrison ORDERED : 05/03/2020 14:14 COLLECTED: 05/03/2020 14:14 ORDER : [id number] RECEIVED : 05/03/2020 19:43 TEST NAME RESULT UNITS RANGES ABN FL ST [facility]H Capture O POS F Antibody 3 Cell Scrn Captu NEG F Normal [facility] Comment on above: Performed By: #### T S3C #### [facility] [address] [place] [address] Established Visit (Orthopaed ic Surgery)on 04-26-2020 Established [...] biceps. No pain with resisted elbow flexion. Fitness/Wellness Director strength 5/5 Elbow flexion 5/5. Shoulder abduction [...] Chiara Espinosa PA-C Department of Orthopaedic Surgery [facility] Dictation performed with the use of voice recognition software. Syntax and grammatical errors may exist. Active Problems Problems Shoulder pain (719.41) (M25.519) Signatures Electronically signed by : Chiara Espinosa PA-C; Apr 26 2020 3:56PM EST (Author) Normal [employer] Initial Visit (Orthopaedic S urgery)on 04-17-2020 Initial Visit (Orthopaedic Surgery) Diagnoses/Problems Assessed Shoulder pain (719.41) (M25.519) Patient Discussion/Summary Patient has right shoulder pain of uncertain origin. Exam today is suggestive of subacromial origin of pain. MRI scan shows tendinopathy but not an obvious tear. I recommended having her MRI scans evaluated by the musculoskeletal radiologist at [facility] I will call the patient back with [...] her light touch sensation is grossly intact. Fitness/Wellness Director strength is 5/5 elbow flexion 5/5 shoulder [...] Apr 17 2020 4:45PM EST (Author) Normal [employer] Vital Signs Date Time Vital Sign Value Performing Clinician Facility 12-12-2021 10:43-0400 Body weight 97.52 kg Gayle Washington MD Work Phone: [facility] 12-12-2021 10:43-0400 Diastolic blood pressure 87 mm[Hg] Gayle Washington MD Work Phone: [facility] 12-12-2021 10:43-0400 Heart rate 88 /min Gayle Washington MD Work Phone: [facility] 12-12-2021 10:43-0400 Systolic blood pressure 125 mm[Hg] Gayle Washington MD Work Phone: [facility] 10-14-2021 10:30-0400 Diastolic blood pressure 80 mm[Hg] Emmett Brunner Other [employer] Other 10-14-2021 10:30-0400 SaO2% (BldA) [Mass fraction] 98 % Emmett Brunner Other [employer] Other 10-14-2021 10:30-0400 Systolic blood pressure 130 mm[Hg] Emmett Brunner Other [employer] Other 07-01-2021 15:30-0500 Body weight 94.62 kg Letty Wesley Other [employer] Other 07-01-2021 15:30-0500 Diastolic blood pressure 78 mm[Hg] Letty Wesley Other [employer] Other 07-01-2021 15:30-0500 Respiratory rate 18 /min Letty Wesley Other [employer] Other 07-01-2021 15:30-0500 SaO2% (BldA) [Mass fraction] 98 % Letty Wesley Other [employer] Other 07-01-2021 15:30-0500 Systolic blood pressure 118 mm[Hg] Letty Wesley Other [employer] Other 06-18-2021 15:45-0500 Diastolic blood pressure 90 mm[Hg] Emmett Brunner Other [employer] Other 06-18-2021 15:45-0500 SaO2% (BldA) [Mass fraction] 97 % Emmett Brunner Other [employer] Other 06-18-2021 15:45-0500 Systolic blood pressure 122 mm[Hg] Emmett Brunner Other [employer] Other 05-15-2021 17:30-0500 Body weight 92.53 kg Emmett Brunner Other [employer] Other 05-15-2021 17:30-0500 Diastolic blood pressure 80 mm[Hg] Emmett Brunner Other [employer] Other 05-15-2021 17:30-0500 Systolic blood pressure 130 mm[Hg] Emmett Brunner Other [employer] Other 04-02-2021 14:30-0400 Body weight 92.63 kg Emmett Brunner Other [employer] Other 04-02-2021 14:30-0400 Diastolic blood pressure 88 mm[Hg] Emmett Brunner Other [employer] Other 04-02-2021 14:30-0400 SaO2% (BldA) [Mass fraction] 98 % Emmett Brunner Other [employer] Other 04-02-2021 14:30-0400 Systolic blood pressure 140 mm[Hg] Emmett Brunner Other [employer] Other Encounters Encounter Date Encounter Type Care Provider Facility Start: 09-20-2023 End: 09-21-2023 ambulatory Rosibel Cotton MD Facility:[facility] Start: 09-13-2023 End: 09-14-2023 ambulatory [facility] Start: 09-13-2023 Encounter for other preprocedural examination [facility] Start: 09-13-2023 End: 09-13-2023 Subsequent hospital visit by physician [facility] Comment on above: Flatulence, eructati on and gas pain Start: 07-26-2023 End: 07-26-2023 ambulatory KIMBERLEY JEANEFE Not Available Start: 06-22-2023 End: 06-22-2023 ambulatory [facility] Start: 06-18-2023 End: 06-18-2023 ambulatory KIMBERLEY G EDWIGE Not Available Start: 05-11-2023 End: 05-12-2023 ambulatory JESSIE REID Not Available Start: 04-27-2023 End: 04-27-2023 ambulatory SOLITARIO GARCÍA [facility] Start: 04-07-2023 ambulatory Gayle Washington MD Work Phone: Rheumatology Comment on above: Fax info Start: 02-10-2023 End: 02-10-2023 ambulatory [facility]OD[facility] Start: 01-25-2023 End: 01-25-2023 [facility] Start: 12-01-2022 End: 12-02-2022 ambulatory ELODIA [facility] Start: 10-16-2022 Encounter for preprocedural cardiovascular examination DR ULISES TIM [facility] Start: 10-16-2022 Encounter for preprocedural laboratory examination DR ULISES TIM [facility] Start: 10-13-2022 End: 10-13-[address] ULISES [...] RACHEL STOCK . Facility:H1 Start: 01-01-2022 End: 01-02-2022 ambulatory BEN MONROE . Facility:[facility]1 Start: 12-17-2021 Telephone encounter Gayle jeffries MD Work Phone: Rheumatology Comment on above: Results Start: 12-16-2021 End: 12-16-[address] RACHEL STOCK . Facility:[facility] Start: 12-12-2021 Telephone encounter Emmett Brunner [facility] Start: 12-12-2021 End: 12-13-2021 ambulatory KIMBERLEY GIBBONS [employer] Other Start: 12-12-2021 End: 12-12-2021 Patient encounter [...] 10-29-2021 Chart Update Cristobal miller Work Phone: [id number] Work Phone: Start: 10-14-2021 End: 10-14-2021 ambulatory Emmett Brunner Other [employer] Other Start: 10-14-2021 Patient encounter procedure Emmett Brunner [facility] Start: 09-23-2021 End: 09-23-2021 ambulatory Emmett Brunner Other [employer] Other Start: 09-23-2021 Telephone encounter Emmett Brunner [facility] Start: 07-01-2021 End: 07-01-2021 ambulatory Lettyra Olson Other [employer] Other Start: 07-01-2021 Office outpatient vi sit 25 minutes Lettyra Olson [facility] Start: 06-26-2021 (Procedure) Short Emmett Brunner [facility] Start: 06-26-2021 End: 06-26-2021 ambulatory Emmett Brunner Other [employer] Other Start: 06-18-2021 End: 06-18-2021 ambulatory Emmett Brunner Other [employer] Other Start: 06-18-2021 Office outpatient vi sit 25 minutes Emmett Kannan [facility] Start: 06-18-2021 Telephone encounter Emmett Brunner [facility] Start: 06-04-2021 End: 06-04-2021 Subsequent hospital visit by physician Christina [facility] Comment on above: Chronic hip pain, bi lateral [M25.551, M25.552, G89.29] Start: 05-21-2021 (Procedure) Short Emmett Brunner [facility] Start: 05-21-2021 End: 05-21-2021 ambulatory Emmett Brunner Other [employer] Other Start: 05-15-2021 End: 05-15-2021 ambulatory Emmett Brunner Other [employer] Other Start: 05-15-2021 Office outpatient vi sit 25 minutes Emmett Kannan [facility] Start: 04-30-2021 (Procedure) Short Emmett Brunner [facility] Start: 04-16-2021 (Procedure) Short Emmett Brunner [facility] Start: 04-02-2021 Office outpatient vi sit 25 minutes Emmett Kannan [facility] Start: 02-21-2021 Office outpatient vi sit 15 minutes Cristobal Tomas Work Phone: [id number] 210 Work Phone: Start: 06-25-2020 End: 06-27-2020 Evaluation and management of inpatient FEMI [facility] Start: 06-25-2020 End: 06-28-2020 Patient encounter procedure CRISTOBAL [facility] Start: 06-18-2020 End: 06-23-2020 Patient encounter procedure CRISTOBAL [facility] Start: 05-09-2020 End: 05-09-2020 Patient encounter procedure FEMI [facility] Procedures Date Procedure Procedure Detail Performing Clinician Start: 09-13-2023 Assay of gammaglobul in iga igd igg igm each Nicole Telles PACKAGING SALES REPRESENTATIVE - MEDICAL ONCOLOGIST Work Phone: Start: 06-04-2021 Radex hips bilateral with pelvis minimum 5 views Gayle Washington MD Work Phone: Start: 06-17-2020 Mammography Gayle jeffries MD Work Phone: Start: 06-09-2018 Lipid 1996 panel - S willian or Plasma Gayle Washintgon MD Work Phone: Plan of Treatment Date Care Activity Detail Author Start: 12-12-2024 DIABETES SCREEN DIABETES SCREEN [facility] Start: 12-12-2024 Diabetes Screening Diabetes Screening [facility] Start: 07-01-2024 Screening for malignant neoplasm of breast Breast cancer screen [facility] Start: 02-03-2024 End: 02-03-2024 Admission to same day surgery center 02/03/2024 8:45 AM EDT - 02/03/2024 9:05 AM EDT Surgery [facility] [address] [place], [place] [id number] Nancy Durand MD [address] [place], [place] [id number] ESOPHAGOGASTRODUODENOSCOPY [facility] Comment on above: ESOPHAGOGASTRODUODENOSCOPY Start: 02-03-2024 End: 02-03-2024 Esophagogastroduodenoscopy transoral diagnostic ESOPHAGOGASTRODUODENOSCOPY Chronic GERD 02/03/2024 8:45 AM EDT [facility] Start: 02-03-2024 Subsequent hospital visit by physician 02/03/2024 8:45 AM EDT Hospital Encounter [facility] [address] [place] [address] Nancy Durand MD [address] [place] [address] [facility] Start: 07-05-2023 Annual Wellness Visit (Medicare Advantage) Annual Wellness Visit (Medicare Advantage) [facility] Start: 06-09-2023 Lipid 1996 panel - Serum or Plasma Lipid Screening [facility] Start: 06-09-2023 LIPID SCREEN LIPID SCREEN [facility] Start: 03-05-2023 COVID-19 Vaccine (2022- season) COVID-19 Vaccine ( season) [facility] Start: 03-05-2023 Influenza vaccination [facility] Start: 02-02-2023 Influenza vaccination Flu vaccine (#1) [facility] Start: 07-05-2022 DEPRESSION ASSESSMENT DEPRESSION ASSESSMENT [facility] Start: 03-19-2022 End: 12-17-2022 25-hydroxyvitamin D3 [Mass/volume] in Serum or Plasma VITAMIN D 25 HYDROXY Lab Routine Vitamin D deficiency Expected: 03/19/2022 (Approximate), Expires: 12/17/2022 [facility] Work Phone: Comment on above: Expected: 03/19/2022 (Approximate), Expi res: 12/17/2022 Start: 03-05-2022 Influenza vaccination [facility] Start: 08-21-2021 COVID-19 VACCINE (2 - Booster for Barbara series) COVID-19 VACCINE (2 - Booster for Barbara series) [facility] Start: 07-05-2021 DEPRESSION ASSESSMENT DEPRESSION ASSESSMENT [facility] Start: 06-17-2021 Mammography [facility] Start: 2018 Shingles vaccine (1 of 2) Shingles vaccine (1 of 2) [facility] Start: 2018 SHINGRIX VACCINE (1 of 2) SHINGRIX VACCINE (1 of 2) [facility] Start: 2013 COLOGUARD (FIT-DNA) COLOGUARD (FIT-DNA) [facility] Start: 2013 Colonoscopy COLONOSCOPY [facility] Start: 2013 COLORECTAL CANCER SCREENING COLORECTAL CANCER SCREENING [facility] Start: [address] COLONOGRAPHY [facility] Start: 2013 FECAL OCCULT BLOOD FECAL OCCULT BLOOD [facility] Start: 2013 Screening for malignant neoplasm of colon [facility] Start: 2013 SIGMOIDOSCOPY SIGMOIDOSCOPY [facility] Start: 1998 HPV TESTING HPV TESTING [facility] Start: 1989 PAP TESTING PAP TESTING [facility] Start: 1987 DTaP/Tdap/Td vaccine (1 - Tdap) DTaP/Tdap/Td vaccine (1 - Tdap) [facility] [employer] Start: 1987 Urine microalbumin profile [facility] Start: 1986 Hepatitis C screening Hepatitis C screen [facility] [employer] Start: 1986 HIV SCREENING HIV SCREENING [facility] Start: 1983 HIV screening HIV screen [facility] [employer] Start: 1980 Adult depression screening assessment DEPRESSION SCREENING [facility] Start: 1980 Depression Screen Depression Screen [facility] [employer] Start: 1978 Lipid panel Lipids [facility] Start: 1974 PNEUMOCOCCAL (1 - PCV) PNEUMOCOCCAL (1 - PCV) [facility] Start: 1974 Pneumococcal 0-64 years Vaccine (1 - PCV) Pneumococcal 0-64 years Vaccine (1 - PCV) [facility] Start: 1974 Pneumococcal vaccination Pneumococcal Vaccine (1 - PCV) [facility] Start: 1968 HEPATITIS B (1 of 3 - 3-dose series) HEPATITIS B (1 of 3 - 3-dose series) [facility] Start: 1968 Hepatitis B Vaccine (1 of 3 - 3-dose series) Hepatitis B Vaccine (1 of 3 - 3-dose series) [facility] Celiac Disease Panel Celiac Dise ase Panel Lab Routine Flatulence, eructation and gas pain 09/13/2023 4:20 PM EDT [facility] End: 09-13-2023 H. pylori antigen [facility] [employer] (app) Comment on above: Once for 1 Occurrences starting 09/13/19 24 until 09/13/2023 End: 09-13-2023 H. Pylori Antigen, Stool H. Pylori Antigen, Stool Lab Routine Flatulence, eructation and gas pain 1 Occurrences starting 09/13/2023 until 09/13/2023 [facility] [employer] Work Phone: Comment on above: 1 Occurrences starting 09/13/2023 until 09/13/2023 Immunizations Immunization Date Immunization Notes Care Provider Fa octaviano 04-06-2019 influenza, injectabl e, quadrivalent, preservative free Cristobal Tomas Work Phone: QQ-[id number]-Qut man 210 Work Phone: 04-06-2019 influenza virus vaccine, unspecified formulation Gayle Washington MD Work Phone: [facility] 05-15-2016 seasonal influenza, intradermal, preservative free Cristobal Tomas Work Phone: [facility] [employer] Payers Date Payer Category Payer Unknown 2021 Unknown CLAYTON CHAIREZINA HI X [id number] 2021-Present [phone] [address] [address] [place] [address] HMO [id number] [address] Health Insurance [facility] [employer] [id number] 2020-2021 [address] [address] [place] [address] PPO [id number] 2018 Unknown [id number] 2017 Unknown [id number] 1968 Unknown [id number] 2.16.840.1.846567.3.579.2 .182 1968 Unknown [id number] 2.16.840.1.871095.3.579.2 .182 1968 Unknown [id number] 2.16.840.1.531569.3.579.2 .182 1968 Unknown [id number] 2.16.840.1.278310.3.579.2 .182 1968 Unknown [id number] 2.16.840.1.536697.3.579.2 .182 1968 Unknown [id number] 2.16.840.1.616113.3.579.2 .593 1968 Unknown [id number] 2.16.840.1.246914.3.579.2 .593 1968 Unknown [id number] 2.16.840.1.614874.3.579.2 .593 1968 Unknown [id number] 2.16.840.1.710393.3.579.2 .593 1968 Unknown [id number] 2.16.840.1.277946.3.579.2 .593 1968 Unknown [id number] 2.16.840.1.652855.3.579.2 .593 1968 Unknown [id number] 2.16.840.1.359589.3.579.2 .593 1968 Unknown [id number] 2.16.840.1.941009.3.579.2 .593 1968 Unknown [id number] 2.16.840.1.761948.3.579.2 .593 1968 Unknown [id number] 2.16.840.1.200171.3.579.2 .593 1968 Unknown [id number] 2.16.840.1.546819.3.579.2 .593 1968 Unknown [id number] 2.16.840.1.539025.3.579.2 .1259 1968 Unknown [id number] 2.16.840.1.161378.3.579.2 .1259 1968 Unknown [id number] 2.16.840.1.284712.3.579.2 .9 1968 Unknown [id number] 2.16.840.1.222264.3.579.2 .1259 1968 Unknown [id number] 2.16.840.1.040285.3.579.2 .1259 1968 Unknown [id number] 2.16.840.1.276513.3.579.2 .173 1968 Unknown [id number] 2.16.840.1.435082.3.579.2 .173 1968 Unknown [id number] 2.16.840.1.855726.3.579.2 .196 Social History Date Type Detail Facility Start: 06-04-2021 End: 09-08-2023 Tobacco smoking status SCIS Smokes tobacco daily [facility] History of tobacco use Cigarette Smoker [facility] Start: 05-03-2020 End: 06-04-2021 Cigarettes smoked current (pack per day) - Reported 1 [facility] Start: 06-04-2021 End: 09-08-2023 Tobacco use and exposure Smokeless tobacco non-user [facility] Start: 12-12-2021 End: 09-08-2023 Alcohol intake Current drinker of alcohol (finding) [facility] Start: 06-04-2021 History SDOH Alcohol Comment rarely. [facility] Start: 1970 Sex Assigned At Not on file [facility] Start: 11-29-2021 End: 12-09-2021 Exposure to SARS-CoV-2 (event) Unable to assess [facility] Start: 05-03-2020 End: 06-05-2021 Sex Assigned At [employer] Other Start: 05-05-2021 End: 06-04-2021 Exposure to SARS-CoV-2 (event) Not sure [facility] National Score (1-100), lower number is lower risk 95 [facility] (I/We) worried whether (my/our) food would run out before (I/we) got money to buy more. Never true [employer] Start: 09-08-2023 Tobacco Comment intermittently since 15 [employer] Start: 05-03-2020 Alcohol Comment hardly ever [employer] Procedure Code Equipment Code Equipment Original Text Equipment Identifier Dates Impl Alena Spine R michael Ti35 Mm 55 Mm [id number] Start: 06-25-2020 Graft Spnl W11xh [id number] Corticocancellous Lord Triad - [id number] Start: 05-09-2020 Plate Spnl L28mm Antr Cerv 1 Lev Translational Arroyo Acp [id number] Start: 05-09-2020 Screw Spnl L13mm Dia4mm Ant Cerv [facility] Ang Compr Arroyo Acp [id number] Start: 05-09-2020 Connector Spnl C rss Lo Prof Adj Reline-O 5.5 X 45-65 Mm [id number] Start: 06-25-2020 Screw Spnl Dia5. 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 aspirin (more content not included)... [facility] 04-27-2023 Note Attestation signed by Jessie eRid MD at 04/27/2023 2:34 PM I personally saw and examined the patient on the same date of service as resident/fellow . I discussed the findings and therapeutic plan with the resident/fellow . I agree with the documentation, except for any edits/updates below. Teaching Physician's Revisions: 53 YO F with long history of diffuse pain presented today to establish care, previously followed by F Exam was remarkable for diffuse tenderness consistent with fibromyalgia, she reports episodic swelling in hands and feet, no synovitis was noted on exam today Will do further workup as below We discussed risks of NSAIDs including but not limited to: kidney impairment, GI ulcer/bleed, CV risk, etc. 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 She formerly saw [facility] Rheumatology with last visit in December 2021 per available records. 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 Reports sometimes she has swelling, redness, [...] Patient Active Proble (more content not included)... [facility] 04-07-2023 Note Reviewed recent lipi d [...] 163 from 128 last draw Elodia Oscar METAL CANS SUPERVISOR Division of Cardiology, [facility]- [phone] Pager- [phone] Email- [email or web address] 04-07-2023 Miscellaneous Notes Notify [...] faxed with confirmation. documented in this encounter [facility] 02-10-2023 Note Coronary artery dise ase is stable Continue GDMT- ASA, lipitor, toprol continue risk factor modifications- heart healthy diet, regular exercise as tolerated and continue all medications. Pt to have repeat lipid and lft levels drawn soon [facility] 02-10-2023 Note D/W pt that may need to see GI for further evaluation for other etiology of her chest pain and may be r/t GERD [facility] 02-10-2023 Note Currently stable [facility] 02-10-2023 Note Currently denied chest pain [facility] 02-10-2023 Note Continue lipitor 80 mg, lipid level well controlled currently [facility] 02-10-2023 Note Hypertension is stab le and well controlled at home Continue norvasc, toprol [facility] 02-10-2023 Note UTP CARDIOLOGY PROGR ESS [...] stenosis. LCX - (more content not included)... [facility] 02-10-2023 Note Review of Systems All other systems reviewed and are negative. [facility] 01-25-2023 Note Patient: Lexi suarez Procedure Information Date/Time: 01/25/2330 Procedures: Coronary angiography Left heart cath (Left) - Lt and CORS Location: [facility] GI PHYSICIAN 3 / [facility] (Cath) Providers: Prakash Gil MD Clinical information reviewed: Tobacco Allergies Meds [...] Plan discussed with attending. Additional Equipment Requests [facility] 01-13-2023 Note Noted reversible per fusion, and unstable angina with HOFFMAN therefore heart cath ordered No acute concerns noted on echocardiogram- normal LVSF, normal RV function and no significant valvular abnormalities [facility] 01-13-2023 Note Ordered heart cath [facility] 01-13-2023 Note Plan for cardiac cat h- orders placed Pt updated [facility] 01-13-2023 Note Continue statin [facility] 01-13-2023 Note Abnormal stress with reversible perfusion defect Will order cardiac cath to assess for any significant coronary stenosis that would correlate with her Unstable Angina symptoms. [facility] 01-13-2023 Note Continue meds [facility] 01-13-2023 Note Reviewed Echocardiog shabbir- [...] symptoms. Mixed hyperlipidemia Continue statin Elodia Oscar METAL CANS SUPERVISOR Division of Cardiology, [facility]- [phone] Pager- [phone] Email- [email or web address] 12-01-2022 Note Sleep study referral [facility] 12-01-2022 Note + orthopnea and slee p disturbances will order sleep study [facility] 12-01-2022 Note Stop OTC nexium and start pantoprazole and f/u with PCP for further management [facility] 12-01-2022 Note Re-ordered CTA chest to r/o PE with elevated D Dimer, HOFFMAN and increased fatigue [facility] 12-01-2022 Note F/u with PCP for chr onic pain/myalgia issues [facility] 12-01-2022 Note Increased SOB on exe rtion, elevated D dimer- and PCP ordered CTA chest to r/o PE with known Factor - unknown if she is Carrier or active Echocardiogram ordered [facility] 12-01-2022 Note EKG today normal sin [...] add toprol today. Awaiting labs from KATHLEEN robles for lipid profile and liver function [facility] 12-01-2022 Note Hypertension is unco ntrolled 149/96 will add metoprolol to amlodipine 10 mg She is to take b/p at home and goal b/p 130/80 or less, keep a b/p log and bring to next appt. May benefit from tiffany I or Arb if renal function is normal [facility] 12-01-2022 Note UTP CARDIOLOGY PROGR ESS [...] down. States she had labs drawn at [facility] in [place] recently and PCP said most of the labs were abnormal, noted pre diabetic, and elevated cholesterol levels. Seen cardiology in [place] and was diagnosed with tachycardia. Currently she takes Baby ASA and amlodipine for HTN. PMH: HTN, Depression, anxiety, tachycardia, Factor , pre diabetes PSH: no h/o cardiac cath or surgery FMH: no early family history of cardiac dx, [place] or sudden . Father- CAD at age [...] LDL 205- elevated (more content not included)... [facility] 10-13-2022 Note OPERATIVE NOTE OPERATION DATE: [...] left cheek was prepped with Betadine. A Pecos tip Bovie was then used to make [...] the recovery room in good condition. [facility] 10-07-2022 Note EXAM: XR CHEST 2 V HISTORY: Pre-surgery evaluation COMPARISON: None. TECHNIQUE: PA and lateral views of the chest. FINDINGS: The cardiomediastinal silhouette is normal. No focal consolidation is identified. There is no pneumothorax. No pleural effusion is noted. The osseous structures are intact. IMPRESSION: No acute cardiopulmonary process. Electronically authenticated by: JOSIAH WILKS Date: 2022-10-07 11:27 [facility] 07-23-2022 Note CONSULTATION CONSULTATION DATE: 07/23/2022 HISTORY [...] Patient does agree with this plan. [facility] 06-11-2022 Note CONSULTATION CONSULTATION DATE: 06/11/2022 HISTORY [...] q.h.s. 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 [facility] 05-18-2022 Miscellaneous Notes Patient's request for medication is as follows: Requested Prescriptions Signed Prescriptions Disp Refills celecoxib (CELEBREX) 200 mg capsule 180 capsule 3 Sig: Take 1 capsule by mouth twice daily. Prescription(s) as above. Please process accordingly. Gayle Washington MD [employer] message sent to patient reminding her to [...] Lab Orders Expected Expires Ordered HLA-B27 PCR [[id number]] 06/19/21 06/18/22 06/18/21 Auth. provider: Gayle Washington MD Assoc. diagnoses: Elevated sedimentation rate VITAMIN D 25 HYDROXY [SQVITD] 03/19/22 12/17/22 12/17/21 Auth. provider: Gayle Washington MD Assoc. diagnoses: Vitamin D deficiency documented in this encounter [facility] 04-16-2022 Note CONSULTATION PROCEDURE DATE: 04/16/2022 [...] the clinic in three months' time. [facility] 04-09-2022 Note CONSULTATION CONSULTATION DATE: 04/09/2022 HISTORY [...] to the clinic for her injection. [facility] 01-01-2022 Note CONSULTATION CONSULTATION DATE: 01/01/2022 This is a pleasant 51-year-old female returning to the clinic status post #2 bilateral MBB on C3, C4 and C5 that afforded her 80% relief for 5 days. She was recently at her hasher operator's and was diagnosed with fibromyalgia and she [...] be followed up in the clinic post-procedure. [facility] Signed and Approved by: BEN MONROE . 01/08/2022 10:22:00 [facility] 12-17-2021 Miscellaneous Notes Pt aware. Kamryn Luna [...] to My Chart if tests completed at [facility]: Mildly low vitamin D- increase [...] superior labral tear; documented in this encounter [facility] 12-12-2021 Note HNO ID: [id number] Author: Gayle Washington MD Service: ? Author [...] improved with mobic, see ortho/pain clinic for watermelon inspector pain recommendations/injections, prn acetaminophen, start prn heat/ice/otc arthritis creams, low impact weightbearing exercise as tolerated, avoid aggravating triggers,supportive care, start flexeril/notify office if not tolerated, improved with mobic, see ortho/pain clinic for jail pain recommendations/injections, prn acetaminophen, start prn heat/ice/otc [...] Urine or urethritis: no Renal/liver disease: no [employer]OT[employer] G[employer]/PNS/sz/cva/cancer disease: no HEME-Cytopenias/LAD/Clots: no Fevers: no Fatigue: [...] MEDICAL HISTORY: PMH (more content not included)... [facility] 12-12-2021 History of Present illness Narrative Face to face follow up for joint pain/ osteoarthritis/ chronic pain syndrome Today's visit 12/12/21:taking mobic no longer working. Wants to retry celebrex. Occasionally takes flexeril, completed vitamin D script. Taking daily vitamin D 2000 International Units daily with food. Chronic current pain in L>R knees, R shoulder, L elbow, neck. Reports pain -12/12. L>R knees, L knee slightly better after [...] improved with mobic, see ortho/pain clinic for jail pain recommendations/injections, prn acetaminophen, start prn heat/ice/otc arthritis creams, low impact weightbearing exercise as tolerated, avoid aggravating triggers,supportive care, start flexeril/notify office if not tolerated, improved with mobic, see ortho/pain clinic for jail pain recommendations/injections, prn acetaminophen, start prn heat/ice/otc [...] Urine or urethritis: no Renal/liver disease: no PRESSER COTTON GINNING/PNS/sz/cva/cancer disease: no HEME-Cytopenias/LAD/Clots: no Fevers: no Fatigue: [...] Pap exam: normal, last menses 41y/o s/p NAYEIL/BSO 2018 dropped bladder and s/p bladder sling;temporarily/now not taking hormones; G3, P2, 1miscarriage Colonoscopy: years ago stable per patient Bone Density:osteopenia 2019 History of Fractures:R foot fracture 6th grade Height Loss: no IMMUNIZATION HX: Pneumovax no Flu shot no Tetanus yes No COVID or shingles vaccine Last PPD: no PAST MEDICAL HISTORY: PMH R retinal hole, s/p NAYELI/BSO 2017 dropped bladder and s/p bladder sling, s/p R plantar fasciitis surgery, R foot fracture 6th grade, htn, bipolar disorder, allergies, irregular heart beat/leaky cardiac,s/p T&A, s/p cholecystectomy, s/p repeated ear surgeries, 2003 s/p C6/7 fusion 2017 s/p b/l carpal tunnel syndrome release, improved [...] off, prn flexeril, see pain clinic for jail pain recommendations, see ortho/pain clinic for watermelon inspector pain recommendations/injections, prn acetaminophen, start prn heat/ice/otc [...] to side effects OFF lyrica no response watermelon inspector pain recommendations per primary care provider/pain clinic [...] video & audio (virtual) or phone or [id number] patient care, completing clinical documentation, obtaining and/or [...] Leora Gibbons DO documented in this encounter [facility] 12-12-2021 Instructions Gayle Washington MD - [...] to side effects OFF lyrica no response jail pain recommendations per primary care provider/pain clinic nonfasting labs as scheduled Thank you. documented in this encounter [facility] 12-09-2021 Miscellaneous Notes Patient has been scheduled as requested for 12/12/21. Referral has been attached. I spoke with Ms. Garcia and she is aware of all of the appointment details. Nataliya DYKES December 09, 2021 2:43 PM Patient calling to schedule follow up appt with Dr Washington no schedule pulling for [place] only Hilda. Patient requesting call at [phone] Washington is still at [place]. Please advise. documented in this encounter [facility] 11-18-2021 Note PAIN MANAGEMENT CONS ULTATION CONSULTATION DATE: 11/18/2021 CHIEF COMPLAINT: Cervical pain. HISTORY OF PRESENT ILLNESS: This is a 51-year-old female who had, in the past, been seen by Dr. Brunner, Pain Management in [place], [place]. The patient had changed her insurances to [employer] and, as such, Dr. Brunner does not [...] the surgeries were done by Dr. Femi Duarte, neurosurgeon. The patient's PAST MEDICAL HISTORY / [...] post explants of the cervical fusion in [address] Femi Duarte. Bulging disc with spinal canal stenosis at [...] like to proceed. CC: Kimberley Gibbons D.O. [facility] Signed and Approved by: DR RACHEL STOCK . 11/25/2021 12:22:00 [facility] 10-14-2021 Evaluation note Encounter Date Diagnosis Assessment [...] nerve block in the future if needed. [employer] Other 12-28-2021 Evaluation note* Encounter Date Diagnosis [...] right hip to further evaluate her pain. [employer] Other 12-15-2021 Evaluation note* Encounter Date Diagnosis [...] (ICD-10 - G89.29) Continue medications as prescribed [employer] Other 11-11-2021 Evaluation note* Encounter Date Diagnosis [...] (ICD-10 - G89.29) Continue medications as prescribed [employer] Other 09-29-2021 Evaluation note* Encounter Date Diagnosis [...] injection under ultrasound guidance in the future. [employer] Other Evaluation note* Diagnosis Secondary osteoarthritis of [...] Chronic pain syndrome documented in this encounter [facility] Other [facility]* Diagnosis Secondary osteoarthritis of multiple sites- Primary Osteoarthrosis involving, or with mention of more than one site, but not specified as generalized, multiple sites Vitamin D deficiency Unspecified vitamin D deficiency Fibromyalgia Mylagia and myositis, unspecified [facility] Diagnosis Secondary osteoarthritis of multiple sites Osteoarthrosis involving, or with mention of more than one site, but not specified as generalized, multiple sites [facility]* Diagnosis Chronic hip pain, bilateral Chronic left shoulder pain Pain in joint, shoulder region Chronic pain of both knees Bilateral hand pain Pain in limb [facility] Secondary osteoarthritis of multiple sites Osteoarthrosis involving, or with mention of more than one site, but not specified as generalized, multiple sites Cervicalgia Chronic bilateral low back pain with bilateral sciatica [facility] Diagnosis Flatulence, eructation and gas pain Flatulence, eructation, and gas pain Chronic GERD documented in this encounter [facility] Narrative - Reported* Type Description Date Medical History allergies Medical History factor 5 blood disorder Medical History anxiety Medical History depression Medical History bipolar Medical History lumbar DDD Surgical History back surgery 06/2021 Surgical History neck surgery 05/2021 Hospitalization History see above [employer] Other History general Narrative - Reported* Type Description Date Medical History allergies Medical History factor 5 blood disorder Medical History anxiety Medical History depression Medical History bipolar Medical History lumbar DDD Medical History osteoarthritis of multiple joint s Surgical History back surgery 06/2021 Surgical History neck surgery 05/2021 Hospitalization History see above [employer] Other History of Present illness NarrativePatient has continued intermittent pain symptoms in her right shoulder she is remotely status post rotator cuff repair she had a follow-up MRI scan recently she would like to review with me today. She had a subacromial injection but it did not resolve all of her symptoms.[id number] Work Phone: Reason for referral (narrative)* Diagnostic Procedure Only (Routine) - Closed Specialty Diagnoses / Procedures Referred By Contac t Referred To Contact XR IMAGING Diagnoses Bilateral hand pain Procedures XR HAND GENERAL 3V PA/LAT/OBL BILATERAL X-RAY HAND MINIMUM 3 VIEWS Gayle Washington MD [address] [place] [address] Xr Imaging Referral ID Status Reason Start Date Expiration Date V isits Requested Visits Authorized [id number] Closed Auto-Generate d Referral 06/04/2021 07/04/2022 1 1 * Diagnostic Procedure Only (Routine) - Closed Specialty Diagnoses / Procedures Referred By Contac t Referred To Contact XR IMAGING Diagnoses Chronic pain of both knees Procedures XR KNEE GENERAL 4V AP BOTH/PA BOTH/LAT/MERC BILATERAL KNEE AP-WGT/LAT/MERCHANT Gayle Washington MD [address] [place] [address] Xr Imaging Referral ID Status Reason Start Date Expiration Date V isits Requested Visits Authorized [id number] Closed Auto-Generate d Referral 06/04/2021 07/04/2022 1 1 * Diagnostic Procedure Only (Routine) - Closed Specialty Diagnoses / Procedures Referred By Contac t Referred To Contact XR IMAGING Diagnoses Chronic left shoulder pain Procedures XR SHOULDER GENERAL 3V OR MORE AP/TRUE AP/OTHER LEFT X-RAY SHOULDER COMPLET MIN 2 VIEWS Gayle Washington MD [address] [place] [address] Xr Imaging Referral ID Status Reason Start Date Expiration Date V isits Requested Visits Authorized [id number] Closed Auto-Generate d Referral 06/04/2021 07/04/2022 1 1 * Diagnostic Procedure Only (Routine) - Closed Specialty Diagnoses / Procedures Referred By Contac t Referred To Contact XR IMAGING Diagnoses Chronic hip pain, bilateral Procedures XR HIP BILATERAL 5V PEL/AP/LAT EACH HIP RADEX HIPS BILATERAL WITH PELVIS MINIMUM 5 VIEWS Gayle Washington MD [address] [place] [address] Xr Imaging Referral ID Status Reason Start Date Expiration Date V isits Requested Visits Authorized [id number] Closed Auto-Generate d Referral 06/04/2021 07/04/2022 1 1 [facility] for visit Narrative* Diagnostic Procedure Only (Routine) - Closed Specialty Diagnoses / Procedures Referred By Contac t Referred To Contact XR IMAGING Diagnoses Bilateral hand pain Procedures XR HAND GENERAL 3V PA/LAT/OBL BILATERAL X-RAY HAND MINIMUM 3 VIEWS Gayle Washington MD [address] [place] [address] Xr Imaging Referral ID Status Reason Start Date Expiration Date V isits Requested Visits Authorized [id number] Closed Auto-Generate d Referral 06/04/2021 07/04/2022 1 1 [facility] Summary Purpose Family History No Family [...] Referral Specialty Diagnoses / Procedures Referred By Margarita vanegas Referred To Contact Orthopedics Diagnoses Chronic pain of both knees Chronic right shoulder pain Elbow pain, left Procedures CONSULT TO ORTHOPAEDICS OFFICE/OUTPATIENT NEW HIGH MDM 60-74 MINUTES Gayle Washington MD [address] [place] [address] Referral ID Status Reason Start Date Expiration Date Visits Requested Visits Authorized [id number] Pending Review PCP Requested Referral 12/12/2021 12/12/2022 1 1 Additional Source Comments INFORMATION SOURCE (unrecogn ized section and content) DATE [facility] DATE CREATED AUTHOR AUTHOR'S ORGANIZ ATION 06/27/2020 [facility] DATE CREATED AUTHOR AUTHOR'S ORGANIZ ATION 12/01/2020 [employer] DATE CREATED AUTHOR AUTHOR'S ORGANIZ ATION 02/23/2021 [facility] DATE CREATED AUTHOR AUTHOR'S ORGANIZ ATION 02/23/2021 [employer] DATE CREATED AUTHOR AUTHOR'S ORGANIZ ATION 12/26/2021 [facility] DATE CREATED AUTHOR AUTHOR'S ORGANIZ ATION 07/02/2022 [facility] dical Specialist DATE CREATED AUTHOR AUTHOR'S ORGANIZ ATION 10/08/2022 [facility] DATE CREATED AUTHOR AUTHOR'S ORGANIZ ATION 10/20/2022 [facility] DATE CREATED AUTHOR AUTHOR'S ORGANIZ ATION 07/27/2023 [facility] dical Specialists [facility] DATE CREATED AUTHOR AUTHOR'S ORGANIZ ATION 08/09/2023 [facility] DATE CREATED AUTHOR AUTHOR'S ORGANIZ ATION 09/14/2023 Елена Lovett [facility] DATE CREATED AUTHOR AUTHOR'S ORGANIZ ATION 09/25/2023 [facility] Source Comments (unrecognize d section and content) In the event this informatio n is protected by the Federal Confidentiality of Alcohol and Drug Abuse Patient Records regulations: The Federal rules restrict any use of the information to criminally investigate or prosecute any alcohol or drug abuse patient.[facility] the event this information is protected by the Federal Confidentiality of Alcohol and Drug Abuse Patient Records regulations: The Federal rules restrict any use of the information to criminally investigate or prosecute any alcohol or drug abuse patient.[facility] the event this information is protected by the Federal Confidentiality of Alcohol and Drug Abuse Patient Records regulations: The Federal rules restrict any use of the information to criminally investigate or prosecute any alcohol or drug abuse patient.[facility] Hospital[facility] the event this information is protected by the Federal Confidentiality of Alcohol and Drug Abuse Patient Records regulations: The Federal rules restrict any use of the information to criminally investigate or prosecute any alcohol or drug abuse patient.[facility] Hospital[facility] the event this information is protected by the Federal Confidentiality of Alcohol and Drug Abuse Patient Records regulations: The Federal rules restrict any use of the information to criminally investigate or prosecute any alcohol or drug abuse patient.[facility] Hospital[facility] the event this information is protected by the Federal Confidentiality of Alcohol and Drug Abuse Patient Records regulations: The Federal rules restrict any use of the information to criminally investigate or prosecute any alcohol or drug abuse patient.[facility] Reason for Visit (unrecogniz ed section and content) Reason Comments Follow Up Pain ongoing generalized pain. Specialty Diagnoses / Procedures Referred By Contac t Referred To Contact RHEUMATOLOGY Diagnoses Follow Up Procedures OFFICE/OUTPATIENT ESTABLISHED MOD MDM 30-39 MIN Follow Up Gayle Washington MD [address] [place] [address] [facility] [address] [facility] [address] Referral ID Status Reason Start Date Expiration Date Visits Requested Visits Authorized [id number] Waiting for Response OON/Self Pay Override Patient cleared - OON Required Payment Collected 12/08/2021 03/08/2022 1 1 Reason Comments Appointment Reason Comments Results Care Teams (unrecognized sec tion and content) Mental Health Nurse Relationship Specialty Start Date End Date Kimberley Gibbons, DO [address] [place] [address] PCP - General Family Practice 06/04/21 Mental Health Nurse Relationship Specialty Start Date End Date Kimberley Gibbons DO [address] [place] [address] PCP - General Family Practice 06/04/21 Mental Health Nurse Relationship Specialty Start Date End Date Kimberley Gibbons DO [address] [place] [address] PCP - General Family Medicine 06/04/21 Mental Health Nurse Relationship Specialty Start Date End Date Kimberley Gibbons DO [address] [place] [address] PCP - General Family Medicine 06/04/21 Mental Health Nurse Relationship Specialty Start Date End Date Kimberley Gibbons DO [address] [place] [address] PCP - General Family Medicine 06/04/21 Mental Health Nurse Relationship Specialty Start Date End Date Kimberley Gibbons DO [address] [place] [address] PCP - General Family Medicine 06/04/21 FOR [...] BE BASED ON THE PRIMARY CLINICAL RECORDS. [facility] [facility]. provides no warranty or guarantee of the accuracy or completeness of information in this document.
== END 2023-09-29 09:04 | disposition home or self-care (01) ==
LOC: PM 09:04
PROVIDERS: Visit Provider Nurse Practitioner
DX: M46.1 Sacroiliitis, not elsewhere classified (principal); Z98.890 Other specified postprocedural states; M47.812 Spondylosis without myelopathy or radiculopathy, cervical region; G89.4 Chronic pain syndrome; Z51.81 Encounter for therapeutic drug level monitoring; Z79.891 Long term (current) use of opiate analgesic
CPT/HCPCS: G0463

== ENCOUNTER 2023-10-13 08:52 | Outpatient (OUT) | payer OTHER, SELFPAY ==
--- NOTE | 2023-10-13 08:59 | MR_ITS ---
The [address] [address] Patient Name: LEXI LEWIS MRN: [id number] date: 1970 Sex: F Assigned Patient Location: MRI Current Patient Location: MRI Accession/Order Number: [id number] Exam Date: 10/13/2023 09:50 Report Date: 10/13/2023 12:01 At the request of: KANNAN FRIEDMAN Procedure: MR cervical spine wo con EXAMINATION: MR cervical spine wo con HISTORY: Cervical Spondylosis COMPARISON: 08/26/2023 TECHNIQUE: A variety of imaging planes and parameters were utilized for visualization of suspected pathology. FINDINGS: CRANIOCERVICAL AREA: Normal foramen magnum with no Chiari malformation. PARASPINAL AREA: Normal with no visible mass. BONES: Normal alignment with no acute fracture or spondylolisthesis. Signal dropout from anterior fusion C5-C6 CORD: Normal caliber, contour, and signal intensity. CERVICAL DISC LEVELS: C2-C3: No significant disc/facet abnormality, spinal stenosis, or foraminal stenosis. C3-C4: No significant disc/facet abnormality, spinal stenosis, or foraminal stenosis. C4-C5: Mild diffuse disc/osteophyte complex. No central or foraminal stenosis C5-C6: Anterior fusion. No disc bulge or herniation. Mild disc/osteophyte complex. No central or foraminal stenosis C6-C7: No significant disc/facet abnormality, spinal stenosis, or foraminal stenosis. C7-T1:. Early degenerative disc disease is present without focal protrusion or neural impingement. MR/MR cervical spine wo con IMPRESSION: Anterior fusion C5-C6 Mild degenerative spondylosis and discogenic changes with no central or foraminal stenosis Electronically authenticated by: ANUPAM BAKER Date: 10/13/2023 12:01
== END 2023-10-13 08:53 | disposition home or self-care (01) ==
LOC: MRI 08:53
PROVIDERS: Visit Provider Nurse Practitioner
DX: M47.812 Spondylosis without myelopathy or radiculopathy, cervical region (principal); M50.30 Other cervical disc degeneration, unspecified cervical region
CPT/HCPCS: 72141

== ENCOUNTER 2023-10-25 07:36 | Day surgery (SDC) | payer OTHER, SELFPAY ==
--- OUTSIDE RECORDS SUMMARY | 2023-10-25 07:39 | XMS_ITS | CCD ---
Author Organization [facility] Care Team Providers Care Drying Supervisor Name Role Phone ZAIRE, CRISTOBAL F Primary [...] Care Unavailable FELICIA, FEMI H. Referring Unavailable Alexandria, Cristobal F Unavailable Edwige DO, Kimberley Leora Primary Care Provider Emmett Brunner Unavailable Letty Olson Unavailable Edwige DO, Kimberley Leora Primary Care Provider EDWIGE, KIMBERLEY LEORA Referring Unavailable EDWIGE, KIMBERLEY [...] Unavailable Kimberley Gibbons DO Primary Care Provider [phone] KIMBERLEY GIBBONS Attending Unavailable ABUGHARBYEH, AYA Referring [...] 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: [IBUPROFEN] Drug Allergy 0 Unknown, Diarrhea [facility] (20 sources) traMADol; 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: [TRAMADOL] Drug Allergy 9 Unknown, Nausea Only [facility] (1 source) Ibuprofen Drug Allergy [facility] (1 source) traMADol Drug Allergy 2 The [...] tablet by mouth 0 12/01/2022 12/01/2023 Active Columbia-3 Fatty Acids (FISH OIL) 1200 MG CAPS (1 source) Columbia-3 Fatty Ac ids (FISH OIL) 1200 MG [...] Take 0.5 mg by mouth once daily. pnavx-so-5-cod-jbm-qljs joey-ast 1,109-949-74-80 mg cap (4 sources) lkruk-uf-1-dha-e pa-joey spho-ast 1,906-969-21-80 mg cap Take by mouth. 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] Onset: 10-19-2022 Episodic Other [...] Deam Pep IgA 1.9 U/mL Normal <7.0 [facility] Comment on above: Result Comment: CELIAC INTERPRETATION <7.0 Negative 7.0-10.0 Equivocal >10.0 Positive units: U/mL Performed By: #### C ELP #### [address] [address] [employer] Functional Analyst: Talib Clements MD Gliadin Deam Pep IgG <0.4 Normal <7.0 [facility] Comment on above: Result Comment: CELIAC INTERPRETATION <7.0 Negative 7.0-10.0 Equivocal >10.0 Positive units: U/mL Performed By: #### C ELP #### [address] [address] [employer] Functional Analyst: Talib Clements MD Tiss Transglutam IgA 0.4 U/mL Normal <7.0 [facility] Comment on above: Result Comment: CELIAC INTERPRETATION <7.0 Negative 7.0-10.0 Equivocal >10.0 Positive units: U/mL Performed By: #### C ELP #### [address] [address] [employer] Functional Analyst: Talib Clements MD IgA [Mass/Vol] 184 mg/dL Normal 70-400 [facility] Comment on above: Performed By: #### C ELP #### [address] [address] [employer] Functional Analyst: Talib Clements MD H. pylori Antigenon 09-14-19 24 H. pylori Antigen Specimen Description .FECES Direct Exam NEGATIVE Report Status FINAL 09/14/2023 Normal [facility] Comment on above: Performed By: #### F HPY #### [address] [address] [employer] Functional Analyst: Talib Clements MD [facility] [address] [place] [address] [employer] Functional Analyst: David Hough MD Orders Onlyon 08-05-2023 Orders Only [id number] Lexi Garcia 1970 F Date Provider Department Center 08/05/2023 895-SHANON CISNEROS [facility] Family History Problem Relation Age of Onset COPD Mother Coronary artery disease Father 56 Family Status - Relation Status Age at Mother Alive Father Normal [facility] Follow-Upon 06-22-2023 Follow-Up [id number] Lexi Garcia 1970 F Date Provider Department Center 06/22/2023 1214-SOLITARIO GARCÍA C RHEUM [facility] Family History Problem Relation Age of Onset COPD Mother Coronary artery disease Father 56 Family Status - Relation Status Age at Mother Alive Father Level of Service:[id number] MD OFFICE/OUTPATIENT ESTABLISHED MOD MDM 30 MIN () Reason for Visit and Comments: Follow-up [476721] - Normal [facility] DEXA BONE DENSITYon 05-11-20 DEXA BONE DENSITY [...] Not Available Office Visiton 04-27-2023 Follow-up visit [id number] Lexi Garcia 1970 Provider Department Center 04/27/2023 SOLITARIO [facility] RHEUM [facility] Family History Problem Relation Age of Onset COPD Mother Coronary artery disease Father 56 Family Status - Relation Status Age at Mother Alive Father Level of Service:83257 MD OFFICE/OUTPATIENT NEW MODERATE MDM 45-59 MINUTES (GC) Reason for Visit and Comments: 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 I let her know I sent a new mychart code so she can establish mychart and view her visit information there Normal [facility] Office Visiton 02-10-2023 Follow-up visit [id number] Lexi Garcia 1970 Provider Department Center 02/10/2023 ELODIA ZAFAR ALYSA [facility] Family History Problem Relation Age of Onset COPD Mother Coronary artery disease Father 56 Family Status - Relation Status Age at Mother Alive Father Level of Service:20527 MD OFFICE/OUTPATIENT ESTABLISHED MOD MDM 30 MIN Reason for Visit and Comments: Follow-up [496168] - Pt is here for f/u heart cath Normal [facility] HPon 01-25-2023 -- Attestation signed by Prakash [...] Will be undergoing LHC to evaluate coronaries. [facility] NURSNOTEon 01-25-2023 NURSNOTE RN educated pt on d/ c instructions. RN encouraged pt to voice any questions or concerns. Pt verbalizes no questions or concerns at this time. Pt was wheeled off of unit with all of belongings. Normal [facility] JOSEPHINE Pozo made awar e of Ibuprophen allergy. States to give Aspirin 325mg oral today. Patient tolerates her 81mg Aspirin at home. [facility] HPon 01-13-2023 HP Reviewed Echocardiogram- 12/21/22 [...] symptoms. 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 Division of Cardiology, [facility]- [phone] Pager- [phone] Email- [email or web address] Normal [facility] Orders Onlyon 01-13-2023 Orders Only [id number] Lexi Garcia 1970 Date Provider Department Center 01/13/2023 ELODIA ZAFAR CARD [facility] Family History Problem Relation Age of Onset COPD Mother Coronary artery disease Father 56 Family Status - Relation Status Age at Mother Alive Father Normal [facility] 29on 12-01-2022 29 Addended by: ELODIA OSCAR on: 12/01/2022 03:39 PM Modules accepted: Orders Normal [facility] Office Visiton 12-01-2022 Follow-up visit [id number] Lexi Garcia 1970 Date Provider Department Center 12/01/2022 ELODIA ZAFAR [facility] CARD [facility] Family History Problem Relation Age of Onset COPD Mother Coronary artery disease Father 56 Family Status - Relation Status Age at Mother Alive Father Level of Service:31544 MD OFFICE/OUTPATIENT NEW MODERATE MDM 45-59 MINUTES Reason for Visit and Comments: New Patient [632] Normal [facility] CBC AUTO DIFFon 10-07-2022 BASO # 0.0 103/ul Normal 0.0-0.1 [facility] Comment on above: Performed By: #### C BC #### [facility] [address] [address] [address] Donna Cantrell Basophils/100 WBC (Bld) 0.5 % Normal 0.2-2.0 [facility] Comment on above: Performed By: #### C BC #### [facility] [address] [address] [address] Donna Cantrell EO # 0.0 103/ul Normal 0.0-0.7 [facility] Comment on above: Performed By: #### C BC #### [facility] [address] [place] [address] Dr. Donna Cantrell Eosinophils/100 WBC (Bld) 0.0 % Critically low 0.9-7.0 [facility] Comment on above: Performed By: #### C BC #### [facility] [address] [place] [address] Dr. Donna Cantrell Erythrocyte distribution width (RBC) [Ratio] 13.6 % Normal 11.0-15.0 [facility] Comment on above: Performed By: #### C BC #### [facility] [address] [place] [address] Dr. Donna Cantrell Hematocrit (Bld) [Volume fraction] 42.0 % Normal 36.0-48.0 [facility] Comment on above: Performed By: #### C BC #### [facility] [address] [place] [address] Dr. Donna Cantrell Hemoglobin (Bld) [Mass/Vol] 14.4 g/dL Normal 12.0-16.0 [facility] Comment on above: Performed By: #### C BC #### [facility] [address] [place] [address] Dr. Donna Cantrell IG # 0.06 10e3/ul Critically high 0.00-0.03 [facility] Comment on above: Performed By: #### C BC #### [facility] [address] [place] [address] Dr. Donna Cantrell IG % 0.8 % Critically high 0.0-0.5 [facility] Comment on above: Performed By: #### C BC #### [facility] [address] [place] [address] Dr. Donna Cantrell LYMPH # 2.5 103/ul Normal 1.2-3.8 [facility] Comment on above: Performed By: #### C BC #### [facility] [address] [place] [address] Dr. Donna Cantrell Lymphocytes/100 WBC (Bld) 30.8 % Normal 20.5-60.0 [facility] Comment on above: Performed By: #### C BC #### [facility] [address] [place] [address] Dr. Donna Cantrell MANUAL DIFF REQ NO Normal [facility] Comment on above: Performed By: #### C BC #### [facility] [address] [place] [address] Dr. Donna Cantrell MCH (RBC) [Entitic mass] 30.3 pg Normal 26.7-34.0 [facility] Comment on above: Performed By: #### C BC #### [facility] [address] [place] [address] Dr. Donna Cantrell MCHC (RBC) [Mass/Vol] 34.3 g/dL Normal 29.9-35.2 [facility] Comment on above: Performed By: #### C BC #### [facility] [address] [place] [address] Dr. Donna Cantrell MCV (RBC) [Entitic vol] 88.2 fL Normal 81.0-99.0 [facility] Comment on above: Performed By: #### C BC #### [facility] [address] [place] [address] Dr. Donna Cantrell MONO # 0.5 103/ul Normal 0.3-0.8 [facility] Comment on above: Performed By: #### C BC #### [facility] [address] [place] [address] Dr. Donna Cantrell Monocytes/100 WBC (Bld) 6.4 % Normal 1.7-12.0 [facility] Comment on above: Performed By: #### C BC #### [facility] [address] [place] [address] Dr. Donna Cantrell NEUT # 4.9 103/ul Normal 1.4-6.5 [facility] Comment on above: Performed By: #### C BC #### [facility] [address] [place] [address] Dr. Donna Cantrell Neutrophils/100 WBC (Bld) 61.5 % Normal 43.0-75.0 [facility] Comment on above: Performed By: #### C BC #### [facility] [address] [place] [address] Dr. Donna Cantrell Platelet mean volume (Bld) [Entitic vol] 9.9 fL Normal 9.5-13.5 [facility] Comment on above: Performed By: #### C BC #### [facility] [address] [place] [address] Dr. Donna Cantrell PLT 234 103/ul Normal 150-450 [facility] Comment on above: Performed By: #### C BC #### [facility] [address] [place] [address] Dr. Donna Cantrell RBC 4.76 106/ul Normal 4.20-5.40 [facility] Comment on above: Performed By: #### C BC #### [facility] [address] [place] [address] Dr. Donna Cantrell WBC 8.0 103/ul Normal 4.0-11.0 [facility] Comment on above: Performed By: #### C BC #### [facility] [address] [place] [address] Dr. Donna Cantrell PROF CHEM 8 (BAS METB)on Anion gap [Moles/Vol] 13.9 mmol/L Normal [facility] Comment on above: Performed By: #### B MP #### [facility] [address] [place] [address] Dr. Donna Cantrell Calcium [Mass/Vol] 8.9 mg/dL Normal 8.5-10.1 [facility] Comment on above: Performed By: #### B MP #### [facility] [address] [place] [address] Dr. Donna Cantrell Chloride [Moles/Vol] 104 mmol/L Normal 98-107 [facility] Comment on above: Performed By: #### B MP #### [facility] [address] [place] [address] Dr. Donna Cantrell CO2 [Moles/Vol] 26.3 mmol/L Normal 21.0-32.0 [facility] Comment on above: Performed By: #### B MP #### [facility] [address] [address] [address] Donna Cantrell Creatinine [Mass/Vol] 0.91 mg/dL Normal 0.55-1.02 [facility] Comment on above: Performed By: #### B MP #### [facility] [address] [address] [address] Donna Cantrell EGFR-AF [place] >60 Normal >=60 [facility] Comment on above: Performed By: #### B MP #### [facility] [address] [address] [address] Donna Cantrell EGFR-NON AF [place] >60 Normal >=60 [facility] Comment on above: Performed By: #### B MP #### [facility] [address] [place] [address] Dr. Donna Cantrell Glucose [Mass/Vol] 127 mg/dL Critically high 74-106 [facility] Comment on above: Performed By: #### B MP #### [facility] [address] [address] [address] Donna Cantrell Potassium [Moles/Vol] 4.2 mmol/L Normal 3.5-5.1 [facility] Comment on above: Performed By: #### B MP #### [facility] [address] [address] [address] Donna Cantrell Sodium [Moles/Vol] 140 mmol/L Normal 136-145 [facility] Comment on above: Performed By: #### B MP #### [facility] [address] [address] [address] Donna Cantrell Urea nitrogen [Mass/Vol] 15.0 mg/dL Normal 7.0-18.0 [facility] Comment on above: Performed By: #### B MP #### [facility] [address] [place] [address] Dr. Donna Canterll Urea nitrogen/Creatinine [Mass ratio] 16.5 mg/mg Normal [facility] Comment on above: Performed By: #### B MP #### [facility] [address] [place] [address] Dr. Donna Cantrell PROTIMEon 10-07-2022 INR Coag (PPP) [Relative time] {INR} Normal [facility] Comment on above: Performed By: #### B LTM #### [facility] [address] [place] [address] Dr. Donna Cantrell INR GUIDELINES SEE BELOW Normal [facility] Comment on above: Result Comment: SHIRA RED INR: 2.0 - 3.0 CONDITIONS NOT LISTED BELOW 2.5 - 3.5 FOR PROSTHETIC HEART VALVE REPLACEMENT 2.5 - 3.5 RECURRENT THROMBOSIS Performed By: #### B LTM #### [facility] [address] [place] [address] Dr. Donna Cantrell PT Coag (PPP) [Time] 9.7 s Normal 9.0-11.6 [facility] Comment on above: Performed By: #### B LTM #### [facility] [address] [place] [address] Dr. Donna Cantrell PTTon 10-07-2022 aPTT Coag (Bld) [Time] 29.6 s Normal 22.3-36.2 [facility] Comment on above: Performed By: #### B LTM #### [facility] [address] [place] [address] Dr. Donna Cantrell SCREENING MAMMOGRAM W/AJ, BILATERAL*on [...] VERY IMPORTANT TO YOUR HEALTH. THE CURRENT [place] [employer] GUIDELINES RECOMMENDS ANNUAL MAMMOGRAPHY BEGINNING AT AGE 40 THIS FACILITY USES A REMINDER SYSTEM TO ENSURE ALL PATIENTS RECEIVE REMINDER NOTIFICATIONS AT THE APPROPRIATE TIME BASED ON THE RECOMMENDATIONS OF THIS EXAM. Report reported and signed by Eder Barraza on 07/01/2022 1545 Normal [facility] [employer] XR Shoulder Complete Right*o n 07-01-2022 XR [...] Barraza on 07/02/2022 0746 Normal [facility] Specialist XR Spine Lumbar Complete w/F jama AND Bascom 07-01-2022 XR Spine Lumbar Complete w/Flex AND [...] by Eder Barraza on 07/02/2022 0744 Normal [facility] [employer] [facility] 12-17-2021 [facility] Tele[facility] (AMARJIT) LEXI GARCIA ([id number]) 1970 F Date Time Provider Department 12/17/21 GAYLE WASHINGTON During your visit today, we recorded the following information about you: Gayle Washington MD 12/17/2021 2:54 PM Signed Please Call patient if MyChart note not read to review results/released to My Chart if tests completed at [facility]: Mildly low vitamin D- increase over the [...] MA 12/17/2021 4:04 PM Signed Pt aware. AMEBR Rojas MD 10/05/2022 8:57 AM Signed Addended [...] PO Daily January 07, 2021 7:15am - dfhmg-ro-8-dha-epa-joey spho-ast 1,566-032-27-80 mg cap Take by mouth. - PNV [...] - Estradiol (more content not included)... Normal [facility] BLEEDING TIMEon 12-16-2021 BLEEDING TIME 7.0 min Normal 1.0-8.0 [facility] Comment on above: Result Comment: test done by Selam Almodovar Performed By: #### B LTM #### [facility] [address] [place] [address] Dr. Donna Cantrell 25(OH)D3 [facility] 25-hydroxyvitamin D3 [Mass/Vol] 29.6 ng/mL Low 31.0-80.0 [facility] Comment on above: Order Comment: Speci men Type: BLOOD SPECIMEN Ordering Facility: [facility] Address: [address] [place] [address] Result Comment: Clas sification of 25 [place] Vitamin D status: Deficiency/Insufficiency: < or = 30 ng/ml. Sufficiency/Optimal Levels: 31-80 ng/mL Toxicity: > 100 ng/mL. Test performed by chemiluminescent immunoassay. Performed By: #### 1 989-3 #### [facility] CLIA [id number] [address] [place] [address] [place] CBC panel Auto (Bld)on 12-12 Erythrocyte distribution width (RBC) [Ratio] 14.4 % Normal 11.5-15.0 [facility] Comment on above: Order Comment: Speci men Type: BLOOD SPECIMEN Ordering Facility: [facility] Address: [address] [place] [address] Performed By: #### 5 8410-2 #### [facility] CLIA [id number] [address] [place] [address] [place] Hematocrit (Bld) [Volume fraction] 45.2 % Normal 36.0-46.0 [facility] Comment on above: Order Comment: Speci men Type: BLOOD SPECIMEN Ordering Facility: [facility] Address: [address] [place] [address] Performed By: #### 5 8410-2 #### [facility] CLIA [id number] [address] [place] [address] [place] Hemoglobin (Bld) [Mass/Vol] 14.8 g/dL Normal 11.5-15.5 [facility] Comment on above: Order Comment: Speci men Type: BLOOD SPECIMEN Ordering Facility: [facility] Address: [address] [place] [address] Performed By: #### 5 8410-2 #### [facility] CLIA [id number] [address] [place] [address] [place] MCH (RBC) [Entitic mass] 29.7 pg Normal 26.0-34.0 [facility] Comment on above: Order Comment: Speci men Type: BLOOD SPECIMEN Ordering Facility: [facility] Address: [address] [place] [address] Performed By: #### 5 8410-2 #### [facility] CLIA [id number] [address] [place] [address] [place] MCHC (RBC) [Mass/Vol] 32.7 g/dL Normal 30.5-36.0 [facility] Comment on above: Order Comment: Speci men Type: BLOOD SPECIMEN Ordering Facility: [facility] Address: [address] [place], [place] [address] Performed By: #### 5 8410-2 #### [facility] CLIA [id number] [address] [place] [address] [place] MCV (RBC) [Entitic vol] 90.8 fL Normal 80.0-100.0 [facility] Comment on above: Order Comment: Speci men Type: BLOOD SPECIMEN Ordering Facility: [facility] Address: [address] [place], [place] [address] Performed By: #### 5 8410-2 #### [facility] CLIA [id number] [address] [place] [address] [place] Nucleated RBC (Bld) [#/Vol] 10*3/uL Normal <0.01 [facility] Comment on above: Order Comment: Speci men Type: BLOOD SPECIMEN Ordering Facility: [facility] Address: [address] [place], [place] [address] Performed By: #### 5 8410-2 #### [facility] CLIA [id number] [address] [place] [address] [place] Platelet mean volume (Bld) [Entitic vol] 10.7 fL Normal 9.0-12.7 [facility] Comment on above: Order Comment: Speci men Type: BLOOD SPECIMEN Ordering Facility: [facility] Address: [address] [place], [place] [address] Performed By: #### 5 8410-2 #### [facility] CLIA [id number] [address] [place] [address] [place] Platelets (Bld) [#/Vol] 259 10*3/uL Normal 150-400 [facility] Comment on above: Order Comment: Speci men Type: BLOOD SPECIMEN Ordering Facility: [facility] Address: [address] [place] [address] Performed By: #### 5 8410-2 #### [facility] CLIA [id number] [address] [place] [address] [place] RBC (Bld) [#/Vol] 4.98 10*6/uL Normal 3.90-5.20 [facility] Comment on above: Order Comment: Speci men Type: BLOOD SPECIMEN Ordering Facility: [facility] Address: [address] [place] [address] Performed By: #### 5 8410-2 #### [facility] CLIA [id number] [address] [place], [place] [address] [address] [place] WBC (Bld) [#/Vol] 9.25 10*3/uL Normal 3.70-11.00 [facility] Comment on above: Order Comment: Speci men Type: BLOOD SPECIMEN Ordering Facility: [facility] Address: [address] [place] [address] Performed By: #### 5 8410-2 #### [facility] CLIA [id number] [address] [place] [address] [place] CNOVon 12-12-2021 CNOV Office Visit (AMARJIT ) LEXI GARCIA ([id number]) 1970 F Date Time Provider Department 12/12/21 [...] flat ground knees give out. 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 Feels safe at home. 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 clinic for long term care administrator pain recommendations/inject ions, prn acetaminophen, start prn heat/ice/otc arthritis creams, low impact weightbearing exercise as tolerated, avoid aggravating triggers,supportive care, start flexeril/notify office if not tolerated, improved with mobic, see ortho/pain clinic for long-term pain recommendations/inject ions, prn acetaminophen, start prn [...] Urine or urethritis: no Renal/liver disease: no BREAST PULLER/PNS/sz/cva/cancer disease: no HEME-Cytopenias/LAD/Cl ots: no Fevers: no [...] ago stable (more content not included)... Normal [facility] CRP SerPl-ncon 12-12-2021 CRP [Mass/Vol] 1.4 mg/dL High <0.9 [facility] Comment on above: Order Comment: Speci men Type: BLOOD SPECIMEN Ordering Facility: [facility] Address: [address] [place], [place] [address] Performed By: #### 1 988-5, 9, 30234-1, 3083-1 #### [facility] CLIA [id number] [address] [place] [address] [place] Comprehensive metabolic 2000 panelon 12-12-2021 Albumin [Mass/Vol] 4.2 g/dL Normal 3.9-4.9 [facility] Comment on above: Order Comment: Speci men Type: BLOOD SPECIMEN Ordering Facility: [facility] Address: [address] [place], [place] [address] Performed By: #### 1 988-5, 2132-03, , 3083-1 #### [facility] CLIA [id number] [address] [place] [address] [place] ALP [Catalytic activity/Vol] 140 U/L High 34-123 [facility] Comment on above: Order Comment: Speci men Type: BLOOD SPECIMEN Ordering Facility: [facility] Address: [address] [place], [place] [id number] Performed By: #### 1 988-5, 2132-03, , 3083-1 #### [facility] CLIA [id number] [address] [place] [address] [place] ALT [Catalytic activity/Vol] 23 U/L Normal 7-38 [facility] Comment on above: Order Comment: Speci men Type: BLOOD SPECIMEN Ordering Facility: [facility] Address: [address] [place], [place] [address] Performed By: #### 1 988-5, 2132-03, , 3083-1 #### [facility] CLIA [id number] [address] [place], [place] [id number] [place] Anion gap [Moles/Vol] 10 mmol/L Normal 9-18 [facility] Comment on above: Order Comment: Speci men Type: BLOOD SPECIMEN Ordering Facility: [facility] Address: [address] [place] [address] Performed By: #### 1 988-5, 2132-03, 30662-6, 3083- #### [facility] CLIA [id number] [address] [place] [address] [place] AST [Catalytic activity/Vol] 24 U/L Normal 13-35 [facility] Comment on above: Order Comment: Speci men Type: BLOOD SPECIMEN Ordering Facility: [facility] Address: [address] [place], [place] [address] Performed By: #### 1 988-5, 2132-03, , 3083- #### [facility] CLIA [id number] [address] [place] [address] [place] Bilirubin [Mass/Vol] mg/dL Low 0.2-1.3 [facility] Comment on above: Order Comment: Speci men Type: BLOOD SPECIMEN Ordering Facility: [facility] Address: [address] [place], [place] [address] Performed By: #### 1 988-5, 2132-03, , 3083- #### [facility] CLIA [id number] [address] [place] [address] [place] Calcium [Mass/Vol] 9.6 mg/dL Normal 8.5-10.2 [facility] Comment on above: Order Comment: Speci men Type: BLOOD SPECIMEN Ordering Facility: [facility] Address: [address] [place], [place] [phone] Performed By: #### 1 988-5, 2132-03, , 3083- #### [facility] CLIA [id number] [address] [place], [place] [id number] [place] Chloride [Moles/Vol] 104 mmol/L Normal 97-105 [facility] Comment on above: Order Comment: Speci men Type: BLOOD SPECIMEN Ordering Facility: [facility] Address: [address] [place] [address] Performed By: #### 1 988-5, 9, 73045-8, 3083- #### [facility] CLIA [id number] [address] [place] [address] [place] CO2 [Moles/Vol] 24 mmol/L Normal 22-30 [facility] Comment on above: Order Comment: Speci men Type: BLOOD SPECIMEN Ordering Facility: [facility] Address: [address] [place] [address] Performed By: #### 1 988-5, 9, 69998-6, 3083- #### [facility] CLIA [id number] [address] [place] [address] [place] Creatinine [Mass/Vol] 0.86 mg/dL Normal 0.58-0.96 [facility] Comment on above: Order Comment: Speci men Type: BLOOD SPECIMEN Ordering Facility: [facility] Address: [address] [place] [address] Performed By: #### 1 988-5, 9, 10172-9, 3083- #### [facility] CLIA [id number] [address] [place] [address] [place] ESTIMATED GLOMERULAR FILTRATION RATE 81 mL/min/1.73m??? Normal >=60 [facility] Comment on above: Order Comment: Speci men Type: BLOOD SPECIMEN Ordering Facility: [facility] Address: [address] [place] [address] Result Comment: Doris mated Glomerular Filtration Rate [...] #### 1 988-5, 2132-03, , 3083-07 #### [facility] CLIA [id number] [address] [place] [address] [place] Glucose [Mass/Vol] 93 mg/dL Normal 74-99 [facility] Comment on above: Order Comment: Renetta weber Type: BLOOD SPECIMEN Ordering Facility: [facility] Address: [address] [place] [phone] Result Comment: The [place] Diabetes [employer] (ADA) provides guidance for cutoff [...] Standards of Medical Care in Diabetes 2016, [place] [employer]. Diabetes Care. 2016.39(Suppl 1). Performed By: #### 1 988-5, 2132-03, , 3083-07 #### [facility] CLIA [id number] [address] [place] [address] [place] Potassium [Moles/Vol] 4.3 mmol/L Normal 3.7-5.1 [facility] Comment on above: Order Comment: Renetta weber Type: BLOOD SPECIMEN Ordering Facility: [facility] Address: [address] [place] [phone] Performed By: #### 1 988-5, 2132-03, , 3083-07 ####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 Performed By: #### B MP #### [facility] [address] [place] [address] GFR/1.73 sq M.predicted MDRD (S/P/Bld) [Vol rate/Area] mL/min/{1.73_m2} Normal >60 [facility] Comment on above: Result Comment: >60 mL/min/1.73m2 EGFR, calc. for ages 18 and older using the MDRD formula (not corrected for weight), is valid for stable renal function. Performed By: #### B MP #### [facility] [address] [place] [address] Glucose [Mass/Vol] 84 mg/dL Normal 70-99 [facility] Comment on above: Performed By: #### B MP #### [facility] [address] [place] [address] Potassium [Moles/Vol] 4.6 mmol/L Normal 3.4-4.9 [facility] Comment on above: Performed By: #### B MP #### [facility] [address] [place] [address] Sodium [Moles/Vol] 137 mmol/L Normal 135-144 [facility] Comment on above: Performed By: #### B MP #### [facility] [address] [place] [address] Urea nitrogen [Mass/Vol] 31 mg/dL Critically high 6-20 [facility] Comment on above: Performed By: #### B MP #### [facility] [address] [place] [address] CBC With Platelet No Differe ntialon 05-03-2020 Erythrocyte distribution width (RBC) [Ratio] 14.3 % Normal 11.5-14.5 [facility] Comment on above: Performed By: #### C BCND #### [facility] [address] [place] [address] Hematocrit (Bld) [Volume fraction] 41.3 % Normal 37.0-47.0 [facility] Comment on above: Performed By: #### C BCND #### [facility] [address] [place] [address] Hemoglobin (Bld) [Mass/Vol] 13.6 g/dL Normal 12.0-16.0 [facility] Comment on above: Performed By: #### C BCND #### [facility] [address] [place] [address] MCH (RBC) [Entitic mass] 30.7 pg Normal 27.0-31.3 [facility] Comment on above: Performed By: #### C BCND #### [facility] [address] [place] [address] MCHC (RBC) [Mass/Vol] 33.0 % Normal 33.0-37.0 [facility] Comment on above: Performed By: #### C BCND #### [facility] [address] [place] [address] MCV (RBC) [Entitic vol] 92.9 fL Normal 82.0-100.0 [facility] Comment on above: Performed By: #### C BCND #### [facility] [address] [place] [address] Platelets (Bld) [#/Vol] 241 10*3/uL Normal 130-400 [facility] Comment on above: Performed By: #### C BCND #### [facility] [address] [place] [address] RBC (Bld) [#/Vol] 4.44 10*6/uL Normal 4.20-5.40 [facility] Comment on above: Performed By: #### C BCND #### [facility] [address] [place] [address] WBC (Bld) [#/Vol] 11.0 10*3/uL Critically high 4.8-10.8 [facility] Comment on above: Performed By: #### C BCND #### [facility] [address] [place] [address] COVID-19, NAAon 05-03-2020 Source Swab Anterior nares Normal [facility] Comment on above: Performed By: #### I RCOV ####[facility] [place] [phone] Partial Thromboplastin Timeo n 05-03-2020 aPTT Coag (Bld) [Time] 31.3 s Normal 24.4-36.8 [facility] Comment on above: Performed By: #### P TT #### [facility] [address] [place] [address] Prothrombin Timeon 0 INR Coag (PPP) [Relative time] 0.9 {INR} Normal [facility] Comment on above: Performed By: #### P T #### [facility] [address] [place] [address] PT Coag (PPP) [Time] 11.9 s Low 12.3-14.9 [facility] Comment on above: Performed By: #### P T #### [facility] [address] [place] [address] Type and Screen Capture 3 sc rn cellon 05-03-2020 Type and Screen Capture 3 scrn cell PATIENT: JOSHUA Doss LOC: [facility] BILL# : [id number] : 1970 SEX: F ORDERED BY: STEPHANIE Harrison ORDERED : 05/03/2020 14:14 COLLECTED: 05/03/2020 14:14 ORDER : [id number] RECEIVED : 05/03/2020 19:43 TEST NAME RESULT UNITS RANGES ABN FL ST ABORH Capture O POS F Antibody 3 Cell Scrn Captu NEG F Normal [facility] Comment on above: Performed By: #### T S3C #### [facility] [address] [place] [address] Established Visit (Orthopaed ic Surgery)on 04-26-2020 Established [...] biceps. No pain with resisted elbow flexion. Surgery Scheduling Coordinator strength 5/5 Elbow flexion 5/5. Shoulder abduction [...] Chiara Espinosa PA-C Department of Orthopaedic Surgery [facility] Dictation performed with the use of voice recognition software. Syntax and grammatical errors may exist. Active Problems Problems Shoulder pain (719.41) (M25.519) Signatures Electronically signed by : Chiara Espinosa PA-C; Apr 26 2020 3:56PM EST (Author) Normal [employer] Initial Visit (Orthopaedic S urgery)on 04-17-2020 Initial Visit (Orthopaedic Surgery) Diagnoses/Problems Assessed Shoulder pain (719.41) (M25.519) Patient Discussion/Summary Patient has right shoulder pain of uncertain origin. Exam today is suggestive of subacromial origin of pain. MRI scan shows tendinopathy but not an obvious tear. I recommended having her MRI scans evaluated by the musculoskeletal radiologist at [facility] I will call the patient back with [...] her light touch sensation is grossly intact. Surgery Scheduling Coordinator strength is 5/5 elbow flexion 5/5 shoulder [...] 97.52 kg Gayle Washington MD Work Phone: [facility] 12-12-2021 10:43-0400 Diastolic blood pressure 87 mm[Hg] Gayle Washington MD Work Phone: [facility] 12-12-2021 10:43-0400 Heart rate 88 /min Gayle Washington MD Work Phone: [facility] 12-12-2021 10:43-0400 Systolic blood pressure 125 mm[Hg] Gayle Washington MD Work Phone: [facility] 10-14-2021 10:30-0400 Diastolic blood pressure 80 mm[Hg] Emmett Brunner Other [employer] Other 10-14-2021 10:30-0400 SaO2% (BldA) [Mass fraction] 98 % Emmett Brunner Other [employer] Other 10-14-2021 10:30-0400 Systolic blood pressure 130 mm[Hg] Emmett Brunner Other [employer] Other 07-01-2021 15:30-0500 Body weight 94.62 kg Letty Wesley Other [employer] Other 07-01-2021 15:30-0500 Diastolic blood pressure 78 mm[Hg] Letty Wesley Other [employer] Other 07-01-2021 15:30-0500 Respiratory rate 18 /min Letty Wesley Other [employer] Other 07-01-2021 15:30-0500 SaO2% (BldA) [Mass fraction] 98 % Letty Wesley Other [employer] Other 07-01-2021 15:30-0500 Systolic blood pressure 118 mm[Hg] Letty Wesley Other [employer] Other 06-18-2021 15:45-0500 Diastolic blood pressure 90 mm[Hg] Emmett Brunner Other [employer] Other 06-18-2021 15:45-0500 SaO2% (BldA) [Mass fraction] 97 % Emmett Brunner Other [employer] Other 06-18-2021 15:45-0500 Systolic blood pressure 122 mm[Hg] Ememtt Brunner Other [employer] Other 05-15-2021 17:30-0500 Body weight 92.53 kg Emmett Brunner Other [employer] Other 05-15-2021 17:30-0500 Diastolic blood pressure 80 mm[Hg] Emmett Brunner Other [employer] Other 05-15-2021 17:30-0500 Systolic blood pressure 130 mm[Hg] Emmett Brunner Other [employer] Other 04-02-2021 14:30-0400 Body weight 92.63 kg Emmett Brunner Other [employer] Other 04-02-2021 14:30-0400 Diastolic blood pressure 88 mm[Hg] Emmett Brunner Other [employer] Other 04-02-2021 14:30-0400 SaO2% (BldA) [Mass fraction] 98 % Emmett Brunner Other [employer] Other 04-02-2021 14:30-0400 Systolic blood pressure 140 mm[Hg] Emmett Brunner Other [employer] Other Encounters Encounter Date Encounter Type Care Provider Facility Start: 09-20-2023 End: 09-21-2023 ambulatory Rsoibel Cotton MD Facility:[facility] Start: 09-13-2023 End: 09-14-2023 ambulatory [facility] Start: 09-13-2023 Encounter for other preprocedural examination [facility] Start: 09-13-2023 End: 09-13-2023 Subsequent hospital visit by physician [facility] Comment on above: Flatulence, eructati on and gas pain Start: 07-26-2023 End: 07-26-2023 ambulatory KIMBERLEY JEANEFE Not Available Start: 06-22-2023 End: 06-22-2023 ambulatory SOLITARIO [facility] Start: 06-18-2023 End: 06-18-2023 ambulatory KIMBERLEY G EDWIGE Not Available Start: 05-11-2023 End: 05-12-2023 ambulatory JESSIE REID Not Available Start: 04-27-2023 End: 04-27-2023 ambulatory SOLITARIO GARCÍA [facility] Start: 04-07-2023 ambulatory Gayle Washington MD Work Phone: Rheumatology Comment on above: Fax info Start: 02-10-2023 End: 02-10-2023 ambulatory ELODIA [facility] Start: 01-25-2023 End: 01-25-2023 [facility] Start: 12-01-2022 End: 12-02-2022 ambulatory ELODIA [facility] Start: 10-16-2022 Encounter for preprocedural cardiovascular examination DR ULISES TIM [facility] Start: 10-16-2022 Encounter for preprocedural laboratory examination DR ULISES TIM [facility] Start: 10-13-2022 End: 10-13-[address] ULISES [...] Start: 12-12-2021 End: 12-13-2021 ambulatory KIMBERLEY GIBBONS [employer] Other Start: 12-12-2021 End: 12-12-2021 Patient encounter [...] 10-29-2021 Chart Update Cristobal miller Work Phone: [id number] Work Phone: Start: 10-14-2021 End: 10-14-2021 ambulatory Emmett Brunner Other [employer] Other Start: 10-14-2021 Patient encounter procedure Emmett Brunner [facility] Start: 09-23-2021 End: 09-23-2021 ambulatory Emmett Brunner Other [employer] Other Start: 09-23-2021 Telephone encounter Emmett Brunner [facility] Start: 07-01-2021 End: 07-01-2021 ambulatory Lettyra Olson Other [employer] Other Start: 07-01-2021 Office outpatient vi sit 25 minutes Lettyra Olson [facility] Start: 06-26-2021 (Procedure) Short Emmett Brunner [facility] Start: 06-26-2021 End: 06-26-2021 ambulatory Emmett Brunner Other [employer] Other Start: 06-18-2021 End: 06-18-2021 ambulatory Emmett Brunner Other [employer] Other Start: 06-18-2021 Office outpatient vi sit 25 minutes Emmett Kannan [facility] Start: 06-18-2021 Telephone encounter Emmett Brunner [facility] Start: 06-04-2021 End: 06-04-2021 Subsequent hospital visit by physician Christina [facility] Comment on above: Chronic hip pain, bi lateral [M25.551, M25.552, G89.29] Start: 05-21-2021 (Procedure) Short Emmett Brunner [facility] Start: 05-21-2021 End: 05-21-2021 ambulatory Emmett Brunner Other [employer] Other Start: 05-15-2021 End: 05-15-2021 ambulatory Emmett Brunner Other [employer] Other Start: 05-15-2021 Office outpatient vi sit 25 minutes Emmett Kannan [facility] Start: 04-30-2021 (Procedure) Short Emmett Brunner [facility] Start: 04-16-2021 (Procedure) Short Emmett Brunner [facility] Start: 04-02-2021 Office outpatient vi sit 25 minutes Emmett Kannan [facility] Start: 02-21-2021 Office outpatient vi sit 15 minutes Cristobal Tomas Work Phone: [id number] Work Phone: Start: 06-25-2020 End: 06-27-2020 Evaluation and management of inpatient FEMI López [facility] Start: 06-25-2020 End: 06-28-2020 Patient encounter procedure CRISTOBAL [facility] Start: 06-18-2020 End: 06-23-2020 Patient encounter procedure CRISTOBAL [facility] Start: 05-09-2020 End: 05-09-2020 Patient encounter procedure FEMI López [facility] Procedures Date Procedure Procedure Detail Performing Clinician Start: 09-13-2023 Assay of gammaglobul in iga igd igg igm each Nicole Telles LIQUOR GR[employer]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 Work Phone: Start: 06-04-2021 Radex hips bilateral with pelvis minimum 5 views Gayle Washington MD Work Phone: Start: 06-17-2020 Mammography Gayle jeffries MD Work Phone: Start: 06-09-2018 Lipid 1996 panel - S willian or Plasma Gayle Washington MD Work Phone: Plan of Treatment Date Care Activity Detail Author Start: 12-12-2024 DIABETES SCREEN DIABETES SCREEN [facility] Start: 12-12-2024 Diabetes Screening Diabetes Screening [facility] Start: 07-01-2024 Screening for malignant neoplasm of breast Breast cancer screen [facility] Start: 02-03-2024 End: 02-03-2024 Admission to same day surgery center 02/03/2024 8:45 AM EDT - 02/03/2024 9:05 AM EDT Surgery [facility] [address] [place], [place] [id number] Nancy Durand MD [address] [place], [place] [id number] ESOPHAGOGASTRODUODENOSCOPY [facility] Comment on above: ESOPHAGOGASTRODUODENOSCOPY Start: 02-03-2024 End: 02-03-2024 Esophagogastroduodenoscopy transoral diagnostic ESOPHAGOGASTRODUODENOSCOPY Chronic GERD 02/03/2024 8:45 AM EDT [facility] Start: 02-03-2024 Subsequent hospital visit by physician 02/03/2024 8:45 AM EDT Hospital Encounter [facility] [address] [place] [address] Nancy Durand MD [address] [place] [address] [facility] Start: 07-05-2023 Annual Wellness Visit (Medicare Advantage) Annual Wellness Visit (Medicare Advantage) [facility] Start: 06-09-2023 Lipid 1996 panel - Serum or Plasma Lipid Screening [facility] Start: 06-09-2023 LIPID SCREEN LIPID SCREEN [facility] Start: 03-05-2023 COVID-19 Vaccine (2022- season) COVID-19 Vaccine ( season) [facility] Start: 03-05-2023 Influenza vaccination [facility] Start: 02-02-2023 Influenza vaccination Flu vaccine (#1) [facility] Start: 07-05-2022 DEPRESSION ASSESSMENT DEPRESSION ASSESSMENT [facility] Start: 03-19-2022 End: 12-17-2022 25-hydroxyvitamin D3 [Mass/volume] in Serum or Plasma VITAMIN D 25 HYDROXY Lab Routine Vitamin D deficiency Expected: 03/19/2022 (Approximate), Expires: 12/17/2022 [facility] Work Phone: Comment on above: Expected: 03/19/2022 (Approximate), Expi res: 12/17/2022 Start: 03-05-2022 Influenza vaccination [facility] Start: 08-21-2021 COVID-19 VACCINE (2 - Booster for Barbara series) COVID-19 VACCINE (2 - Booster for Barbara series) [facility] Start: 07-05-2021 DEPRESSION ASSESSMENT DEPRESSION ASSESSMENT [facility] Start: 06-17-2021 Mammography [facility] Start: 2018 Shingles vaccine (1 of 2) Shingles vaccine (1 of 2) [facility] Start: 2018 SHINGRIX VACCINE (1 of 2) SHINGRIX VACCINE (1 of 2) [facility] Start: 2013 COLOGUARD (FIT-DNA) COLOGUARD (FIT-DNA) [facility] Start: 2013 Colonoscopy COLONOSCOPY [facility] Start: 2013 COLORECTAL CANCER SCREENING COLORECTAL CANCER SCREENING [facility] Start: [address] COLONOGRAPHY [facility] Start: 2013 FECAL OCCULT BLOOD FECAL OCCULT BLOOD [facility] Start: 2013 Screening for malignant neoplasm of colon [facility] Start: 2013 SIGMOIDOSCOPY SIGMOIDOSCOPY [facility] [facility] Start: 1998 HPV TESTING HPV TESTING [facility] Start: 1989 PAP TESTING PAP TESTING [facility] Start: 1987 DTaP/Tdap/Td vaccine (1 - Tdap) DTaP/Tdap/Td vaccine (1 - Tdap) [facility] Start: 1987 Urine microalbumin profile [facility] Start: 1986 Hepatitis C screening Hepatitis C screen [facility] Start: 1986 HIV SCREENING HIV SCREENING [facility] Start: 1983 HIV screening HIV screen [facility] Start: 1980 Adult depression screening assessment DEPRESSION SCREENING [facility] Start: 1980 Depression Screen Depression Screen [facility] Start: 1978 Lipid panel Lipids [facility] Start: 1974 PNEUMOCOCCAL (1 - PCV) PNEUMOCOCCAL (1 - PCV) [facility] Start: 1974 Pneumococcal 0-64 years Vaccine (1 - PCV) Pneumococcal 0-64 years Vaccine (1 - PCV) [facility] Start: 1974 Pneumococcal vaccination Pneumococcal Vaccine (1 - PCV) [facility] Start: 1968 HEPATITIS B (1 of 3 - 3-dose series) HEPATITIS B (1 of 3 - 3-dose series) [facility] Start: 1968 Hepatitis B Vaccine (1 of 3 - 3-dose series) Hepatitis B Vaccine (1 of 3 - 3-dose series) [facility] Celiac Disease Panel Celiac Dise ase Panel Lab Routine Flatulence, eructation and gas pain 09/13/2023 4:20 PM EDT [facility] End: 09-13-2023 H. pylori antigen [facility] [employer] Comment on above: Once for 1 Occurrences starting 09/13/19 24 until 09/13/2023 End: 09-13-2023 H. Pylori Antigen, Stool H. Pylori Antigen, Stool Lab Routine Flatulence, eructation and gas pain 1 Occurrences starting 09/13/2023 until 09/13/2023 [facility] [id number] Work Phone: Comment on above: 1 Occurrences starting 09/13/2023 until 09/13/2023 Immunizations Immunization Date Immunization Notes Care Provider Fa octaviano 04-06-2019 influenza, injectabl e, quadrivalent, preservative free Cristobal Tomas Work Phone: [id number] [id number] Work Phone: 04-06-2019 influenza virus vaccine, unspecified formulation Gayle Washington MD Work Phone: [facility] 05-15-2016 seasonal influenza, intradermal, preservative free Cristobal Tomas Work Phone: [facility] [id number] Payers Date Payer Category Payer Unknown 2021 Unknown CLAYTON CHAIREZINA HI X [id number] 2021-Present [phone] [address] [address] [place] [address] HMO [id number] 2020 Private Health Insurance [facility] [employer] [id number] 2020-2021 [address] [address] [place] [address] PPO [id number] 2018 Unknown [id number] 2.16.840.1.401330.19 2017 Unknown [id number] 1968 Unknown [id number] 2.16.840.1.141499.3.579.2 .182 1968 Unknown [id number] 2.16.840.1.280257.3.579.2 .182 1968 Unknown [id number] 2.16.840.1.811817.3.579.2 .182 1968 Unknown [id number] 2.16.840.1.094570.3.579.2 .182 1968 Unknown [id number] 2.16.840.1.814690.3.579.2 .182 1968 Unknown [id number] 2.16.840.1.102094.3.579.2 .593 1968 Unknown [id number] 2.16.840.1.169437.3.579.2 .593 1968 Unknown [id number] 2.16.840.1.139564.3.579.2 .593 1968 Unknown [id number] 2.16.840.1.802559.3.579.2 .593 1968 Unknown [id number] 2.16.840.1.466211.3.579.2 .593 1968 Unknown [id number] 2.16.840.1.636257.3.579.2 .593 1968 Unknown [id number] 2.16.840.1.575841.3.579.2 .593 1968 Unknown [id number] 2.16.840.1.579520.3.579.2 .593 1968 Unknown [id number] 2.16.840.1.037316.3.579.2 .593 1968 Unknown [id number] 2.16.840.1.577997.3.579.2 .593 1968 Unknown [id number] 2.16.840.1.393206.3.579.2 .593 1968 Unknown [id number] 2.16.840.1.580125.3.579.2 .1259 1968 Unknown [id number] 2.16.840.1.905759.3.579.2 .1259 1968 Unknown [id number] 2.16.840.1.290564.3.579.2 .9 1968 Unknown [id number] 2.16.840.1.070398.3.579.2 .1259 1968 Unknown [id number] 2.16.840.1.496902.3.579.2 .1259 1968 Unknown [id number] 2.16.840.1.645111.3.579.2 .173 1968 Unknown [id number] 2.16.840.1.559997.3.579.2 .173 1968 Unknown [id number] 2.16.840.1.475233.3.579.2 .196 Social History Date Type Detail Facility Start: 06-04-2021 End: 09-08-2023 Tobacco smoking status PAIS Smokes tobacco daily [facility] History of tobacco use Cigarette Smoker [facility] Start: 05-03-2020 End: 06-04-2021 Cigarettes smoked current (pack per day) - Reported 1 [facility] Start: 06-04-2021 End: 09-08-2023 Tobacco use and exposure Smokeless tobacco non-user [facility] Start: 12-12-2021 End: 09-08-2023 Alcohol intake Current drinker of alcohol (finding) [facility] Start: 06-04-2021 History SDOH Alcohol Comment rarely. [facility] Start: 1970 Sex Assigned At Not on file [facility] Start: 11-29-2021 End: 12-09-2021 Exposure to SARS-CoV-2 (event) Unable to assess [facility] Start: 05-03-2020 End: 06-05-2021 Sex Assigned At [facility] Other Start: 05-05-2021 End: 06-04-2021 Exposure to SARS-CoV-2 (event) Not sure [facility] National Score (1-100), lower number is lower risk 95 [facility] (I/We) worried whether (my/our) food would run out before (I/we) got money to buy more. Never true [facility] [id number] Start: 09-08-2023 Tobacco Comment intermittently since 15 [facility] [employer] Start: 05-03-2020 Alcohol Comment hardly ever [facility] Procedure Code Equipment Code Equipment Original Text Equipment Identifier Dates Impl Alena Spine R michael Ti35 Mm 55 Mm [id number] Start: 06-25-2020 Graft Spnl W11xh [id number] Corticocancellous Lord Triad - [id number] Start: 05-09-2020 Plate Spnl L28mm Antr Cerv 1 Lev Translational Rickreall Acp [id number] Start: 05-09-2020 Screw Spnl L13mm Dia4mm Ant Cerv [facility] Ang Compr Rickreall Acp [id number] Start: 05-09-2020 Connector Spnl C rss Lo Prof Adj Reline-O 5.5 X 45-65 Mm [id number] Start: 06-25-2020 Screw Spnl Dia5. 5mm Opn Tulip Roselyn Reline [id number] Start: 06-25-2020 Graft Bne Sub 30 cc 1.7-10mm Canc Chip Morselized Frz Dry - [id number] Start: 06-25-2020 Graft Bne Sub 5m l Mtrx Cellular Osteocel + - [id number] Start: 06-25-2020 Spacer Spnl L W1 [id number] 4deg Post Lum Intbdy Fus Lord [id number] [...] subchondral sclerosis noted on fist CMC joints [facility] Follow-up Patient Visit Subjective [...] disturbances Abnormal nuclear stress test Unstable angina (CMS/[facility]) Coronary artery disease involving lumbee coronary artery of lumbee heart without angina pectoris Degenerative joint disease [...] the morning. aspirin (more content not included)... [facility] 04-27-2023 Note Attestation signed by Jessie Reid [...] kidney impairment, GI ulcer/bleed, CV risk, etc. 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 She formerly saw [facility] with last visit in December 2021 per available records. 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 Reports sometimes she has swelling, redness, [...] Patient Active Proble (more content not included)... [facility] 04-07-2023 Note Reviewed recent lipi d profile [...] 163 from 128 last draw Elodia Oscar MANUFACTURING MAINTENANCE TECHNICIAN Division of Cardiology, [facility]- [phone] Pager- [phone] Email- [email or web address] 04-07-2023 Miscellaneous Notes Notify patient medication sent [...] faxed with confirmation. documented in this encounter [facility] 02-10-2023 Note Coronary artery dise ase is stable Continue GDMT- ASA, lipitor, toprol continue risk factor modifications- heart healthy diet, regular exercise as tolerated and continue all medications. Pt to have repeat lipid and lft levels drawn soon [facility] 02-10-2023 Note D/W pt that may need to see GI for further evaluation for other etiology of her chest pain and may be r/t GERD [facility] 02-10-2023 Note Currently stable [facility] 02-10-2023 Note Currently denied chest pain [facility] 02-10-2023 Note Continue lipitor 80 mg, lipid level well controlled currently [facility] 02-10-2023 Note Hypertension is stab le and well controlled at home Continue norvasc, toprol [facility] 02-10-2023 Note UTP CARDIOLOGY PROGR ESS NOTE [...] stenosis. LCX - (more content not included)... [facility] 02-10-2023 Note Review of Systems All other systems reviewed and are negative. [facility] 01-25-2023 Note Patient: Lexi suarez Procedure Information Date/Time: 01/25/2330 Procedures: Coronary angiography Left heart cath (Left) - Lt and CORS Location: [facility] / [facility] (Cath) Providers: Prakash Gil MD [...] Plan discussed with attending. Additional Equipment Requests [facility] 01-13-2023 Note Noted reversible per fusion, and unstable angina with HOFFMAN therefore heart cath ordered No acute concerns noted on echocardiogram- normal LVSF, normal RV function and no significant valvular abnormalities [facility] 01-13-2023 Note Ordered heart cath [facility] 01-13-2023 Note Plan for cardiac cat h- orders placed Pt updated [facility] 01-13-2023 Note Continue statin [facility] 01-13-2023 Note Abnormal stress with reversible perfusion defect Will order cardiac cath to assess for any significant coronary stenosis that would correlate with her Unstable Angina symptoms. [facility] 01-13-2023 Note Continue meds [facility] 01-13-2023 Note Reviewed Echocardiog shabbir- 12/21/22 Normal [...] symptoms. 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 Division of Cardiology, [facility]- [phone] Pager- [phone] Email- [email or web address] 12-01-2022 Note Sleep study referral [facility] 12-01-2022 Note + orthopnea and slee p disturbances will order sleep study [facility] 12-01-2022 Note Stop OTC nexium and start pantoprazole and f/u with PCP for further management [facility] 12-01-2022 Note Re-ordered CTA chest to r/o PE with elevated D Dimer, HOFFMAN and increased fatigue [facility] 12-01-2022 Note F/u with PCP for chr onic pain/myalgia issues [facility] 12-01-2022 Note Increased SOB on exe rtion, elevated D dimer- and PCP ordered CTA chest to r/o PE with known Factor - unknown if she is Carrier or active Echocardiogram ordered [facility] 12-01-2022 Note EKG today normal sin us [...] robles for lipid profile and liver function [facility] 12-01-2022 Note Hypertension is unco ntrolled 149/96 will add metoprolol to amlodipine 10 mg She is to take b/p at home and goal b/p 130/80 or less, keep a b/p log and bring to next appt. May benefit from tiffany I or Arb if renal function is normal [facility] 12-01-2022 Note UTP CARDIOLOGY PROGR ESS NOTE [...] down. States she had labs drawn at [facility] in [place] recently and PCP said most of the labs were abnormal, noted pre diabetic, and elevated cholesterol levels. Seen cardiology in [place] and was diagnosed with tachycardia. Currently she [...] LDL 205- elevated (more content not included)... [facility] 10-13-2022 Note OPERATIVE NOTE OPERATION DATE: 10/13/2022 [...] left cheek was prepped with Betadine. A [place] tip Bovie was then used to make [...] q.h.s. 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 Please process accordingly. Gayle Washington MD [employer]t message sent to patient reminding her to [...] Lab Orders Expected Expires Ordered HLA-B27 PCR [[id number]] 06/19/21 06/18/22 06/18/21 Auth. provider: Gayle Washington MD Assoc. diagnoses: Elevated sedimentation rate VITAMIN D 25 HYDROXY [SQVITD] 03/19/22 12/17/22 12/17/21 Auth. provider: Gayle Washington MD Assoc. diagnoses: Vitamin D deficiency documented in this encounter [facility] 04-16-2022 Note CONSULTATION PROCEDURE DATE: 04/16/2022 The [...] 5 days. 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 [facility] Signed and Approved by: BEN MONROE . [...] to My Chart if tests completed at [facility]: Mildly low vitamin D- increase over the [...] superior labral tear; documented in this encounter [facility] 12-12-2021 Note HNO ID: [id number] Author: Gayle Washington MD Service: ? Author [...] improved with mobic, see ortho/pain clinic for long term care administrator pain recommendations/injections, prn acetaminophen, start prn heat/ice/otc arthritis creams, low impact weightbearing exercise as tolerated, avoid aggravating triggers,supportive care, start flexeril/notify office if not tolerated, improved with mobic, see ortho/pain clinic for long-term pain recommendations/injections, prn acetaminophen, start prn heat/ice/otc [...] yes Dactylitis: no H/o precedent/frequent infection(s): no Enthesopathy/[place]'s/heel/plant ar tenderness: as above Skin thickening, psoriasis, photosensitivity, purpura: no Nail changes: ridges/ripples Alpecia, patchy: no Eye inflammation: glasses, R retinal hole SICCA: dry eyes Oral/nasal/genital ulcers: no GI problems-diarrhea/bleeding/IBD/Gl uten intolerence/Dysphagia: gerd Raynaud's phenomenon/digital ulcers: no Organ inv-Serositis: no Lung disease/ILD: no Myopathy/proximal muscle weakness: no Abnormal Urine or urethritis: no Renal/liver disease: no BREAST PULLER/PNS/sz/cva/cancer disease: no HEME-Cytopenias/LAD/Clots: no Fevers: no Fatigue: [...] MEDICAL HISTORY: PMH (more content not included)... [facility] 12-12-2021 History of Present illness Narrative [...] improved with mobic, see ortho/pain clinic for long term care administrator pain recommendations/injections, prn acetaminophen, start prn heat/ice/otc arthritis creams, low impact weightbearing exercise as tolerated, avoid aggravating triggers,supportive care, start flexeril/notify office if not tolerated, improved with mobic, see ortho/pain clinic for long-term pain recommendations/injections, prn acetaminophen, start prn heat/ice/otc [...] yes Dactylitis: no H/o precedent/frequent infection(s): no Enthesopathy/[place]'s/heel/plant ar tenderness: as above Skin thickening, psoriasis, photosensitivity, purpura: no Nail changes: ridges/ripples Alpecia, patchy: no Eye inflammation: glasses, R retinal hole SICCA: dry eyes Oral/nasal/genital ulcers: no GI problems-diarrhea/bleeding/IBD/Gl uten intolerence/Dysphagia: gerd Raynaud's phenomenon/digital ulcers: no Organ inv-Serositis: no Lung disease/ILD: no Myopathy/proximal muscle weakness: no Abnormal Urine or urethritis: no Renal/liver disease: no BREAST PULLER/PNS/sz/cva/cancer disease: no HEME-Cytopenias/LAD/Clots: no Fevers: no Fatigue: [...] off, prn flexeril, see pain clinic for long term care administrator pain recommendations, see ortho/pain clinic for long term care administrator pain recommendations/injections, prn acetaminophen, start prn heat/ice/otc [...] to side effects OFF lyrica no response long term care administrator pain recommendations per primary care provider/pain clinic [...] video & audio (virtual) or phone or [id number] patient care, completing clinical documentation, obtaining and/or [...] Leora Gibbons DO documented in this encounter [facility] 12-12-2021 Instructions Gayle Washington MD - 12/12/2021 [...] to side effects OFF lyrica no response long-term pain recommendations per primary care provider/pain clinic nonfasting labs as scheduled Thank you. documented in this encounter [facility] 12-09-2021 Miscellaneous Notes Patient has been scheduled as requested for 12/12/21. Referral has been attached. I spoke with Ms. Garcia and she is aware of all of the appointment details. Nataliya DYKES December 09, 2021 2:43 PM Patient calling to schedule follow up appt with Dr Washington no schedule pulling for [place] only [place]. Patient requesting call at [phone] Washington is still at [place]. Please advise. documented in this encounter [facility] 11-18-2021 Note PAIN MANAGEMENT CONS ULTATION CONSULTATION DATE: 11/18/2021 CHIEF COMPLAINT: Cervical pain. HISTORY OF PRESENT ILLNESS: This is a 51-year-old female who had, in the past, been seen by Dr. Brunner, Pain Management in [place], [place]. The patient had changed her insurances to [employer] and, as such, Dr. Brunner does not [...] like to proceed. CC: Kimberley Gibbons D.O. [facility] Signed and Approved by: DR RACHEL STOCK . 11/25/2021 12:22:00 [facility] 10-14-2021 Evaluation note Encounter Date Diagnosis Assessment [...] nerve block in the future if needed. [facility] 12-28-2021 Evaluation note* Encounter Date Diagnosis [...] right hip to further evaluate her pain. [facility] Other 12-15-2021 Evaluation note* Encounter Date Diagnosis [...] (ICD-10 - G89.29) Continue medications as prescribed [facility] Other 11-11-2021 Evaluation note* Encounter Date Diagnosis [...] (ICD-10 - G89.29) Continue medications as prescribed [facility] 09-29-2021 Evaluation note* Encounter Date Diagnosis [...] injection under ultrasound guidance in the future. [facility] Other Evaluation note* Diagnosis Secondary osteoarthritis of [...] Chronic pain syndrome documented in this encounter [facility] noteNo InformationNortEncompass Health [facility] [employer] Other Evaluation note* Diagnosis Secondary osteoarthritis of multiple sites- Primary Osteoarthrosis involving, or with mention of more than one site, but not specified as generalized, multiple sites Vitamin D deficiency Unspecified vitamin D deficiency Fibromyalgia Mylagia and myositis, unspecified [facility] Diagnosis Secondary osteoarthritis of multiple sites Osteoarthrosis involving, or with mention of more than one site, but not specified as generalized, multiple sites [facility]* Diagnosis Chronic hip pain, bilateral Chronic left shoulder pain Pain in joint, shoulder region Chronic pain of both knees Bilateral hand pain Pain in limb [facility] Diagnosis Secondary osteoarthritis of multiple sites Osteoarthrosis involving, or with mention of more than one site, but not specified as generalized, multiple sites Cervicalgia Chronic bilateral low back pain with bilateral sciatica [facility] Diagnosis Flatulence, eructation and gas pain Flatulence, eructation, and gas pain Chronic GERD documented in this encounter DEWAYNE IZABELA VELASQUEZ [facility] general Narrative - Reported* Type Description Date Medical History allergies Medical History factor 5 blood disorder Medical History anxiety Medical History depression Medical History bipolar Medical History lumbar DDD Surgical History back surgery 06/2021 Surgical History neck surgery 05/2021 Hospitalization History see above [facility] Other History general Narrative - Reported* Type Description Date Medical History allergies Medical History factor 5 blood disorder Medical History anxiety Medical History depression Medical History bipolar Medical History lumbar DDD Medical History osteoarthritis of multiple joint s Surgical History back surgery 06/2021 Surgical History neck surgery 05/2021 Hospitalization History see above [facility] Other History of Present illness NarrativePatient has continued intermittent pain symptoms in her right shoulder she is remotely status post rotator cuff repair she had a follow-up MRI scan recently she would like to review with me today. She had a subacromial injection but it did not resolve all of her symptoms.[id number] Work Phone: Reason for referral (narrative)* Diagnostic Procedure Only (Routine) - Closed Specialty Diagnoses / Procedures Referred By Contac t Referred To Contact XR IMAGING Diagnoses Bilateral hand pain Procedures XR HAND GENERAL 3V PA/LAT/OBL BILATERAL X-RAY HAND MINIMUM 3 VIEWS Gayle Washington MD [address] [place] [address] Xr Imaging Referral ID Status Reason Start Date Expiration Date V isits Requested Visits Authorized [id number] Closed Auto-Generate d Referral 06/04/2021 07/04/2022 1 1 * Diagnostic Procedure Only (Routine) - Closed Specialty Diagnoses / Procedures Referred By Contac t Referred To Contact XR IMAGING Diagnoses Chronic pain of both knees Procedures XR KNEE GENERAL 4V AP BOTH/PA BOTH/LAT/MERC BILATERAL KNEE AP-WGT/LAT/MERCHANT Gayle Washington MD [address] [place] [address] Xr Imaging Referral ID Status Reason Start Date Expiration Date V isits Requested Visits Authorized [id number] Closed Auto-Generate d Referral 06/04/2021 07/04/2022 1 1 * Diagnostic Procedure Only (Routine) - Closed Specialty Diagnoses / Procedures Referred By Contac t Referred To Contact XR IMAGING Diagnoses Chronic left shoulder pain Procedures XR SHOULDER GENERAL 3V OR MORE AP/TRUE AP/OTHER LEFT X-RAY SHOULDER COMPLET MIN 2 VIEWS Gayle Washington MD [address] [place] [address] Xr Imaging Referral ID Status Reason Start Date Expiration Date V isits Requested Visits Authorized [id number] Closed Auto-Generate d Referral 06/04/2021 07/04/2022 1 1 * Diagnostic Procedure Only (Routine) - Closed Specialty Diagnoses / Procedures Referred By Contac t Referred To Contact XR IMAGING Diagnoses Chronic hip pain, bilateral Procedures XR HIP BILATERAL 5V PEL/AP/LAT EACH HIP RADEX HIPS BILATERAL WITH PELVIS MINIMUM 5 VIEWS Gayle Washington MD [address] [place] [address] Xr Imaging Referral ID Status Reason Start Date Expiration Date V isits Requested Visits Authorized [id number] Closed Auto-Generate d Referral 06/04/2021 07/04/2022 1 1 [facility] for visit Narrative* Diagnostic Procedure Only (Routine) - Closed Specialty Diagnoses / Procedures Referred By Contac t Referred To Contact XR IMAGING Diagnoses Bilateral hand pain Procedures XR HAND GENERAL 3V PA/LAT/OBL BILATERAL X-RAY HAND MINIMUM 3 VIEWS Gayle Washington MD [address] [place] [address] Xr Imaging Referral ID Status Reason Start Date Expiration Date V isits Requested Visits Authorized [id number] Closed Auto-Generate d Referral 06/04/2021 07/04/2022 1 1 [facility] Summary Purpose Family History No Family History [...] MDM 60-74 MINUTES Gayle Washington MD [address] [place] [address] Referral ID Status Reason Start Date Expiration Date Visits Requested Visits Authorized [id number] Pending Review PCP Requested Referral 12/12/2021 12/12/2022 1 1 Additional Source Comments INFORMATION SOURCE (unrecogn ized section and content) DATE CREATED AUTHOR 06/20/2020 [facility] DATE CREATED AUTHOR AUTHOR'S ORGANIZ ATION 06/27/2020 [facility] DATE CREATED AUTHOR AUTHOR'S ORGANIZ ATION 12/01/2020 [facility] DATE CREATED AUTHOR AUTHOR'S ORGANIZ ATION 02/23/2021 [facility] DATE CREATED AUTHOR AUTHOR'S ORGANIZ ATION 02/23/2021 [facility] DATE CREATED AUTHOR AUTHOR'S ORGANIZ ATION 12/26/2021 [facility] DATE CREATED AUTHOR AUTHOR'S ORGANIZ ATION 07/02/2022 [facility] Specialist DATE CREATED AUTHOR AUTHOR'S ORGANIZ ATION 10/08/2022 [facility] DATE CREATED AUTHOR AUTHOR'S ORGANIZ ATION 10/20/2022 [facility] DATE CREATED AUTHOR AUTHOR'S ORGANIZ ATION 07/27/2023 [facility] Specialists [facility] DATE CREATED AUTHOR AUTHOR'S ORGANIZ ATION 08/09/2023 [facility] DATE CREATED AUTHOR AUTHOR'S ORGANIZ ATION 09/14/2023 [facility] DATE CREATED AUTHOR AUTHOR'S ORGANIZ ATION 09/25/2023 [facility] Source Comments (unrecognize d section and content) In the event this informatio n is protected by the Federal Confidentiality of Alcohol and Drug Abuse Patient Records regulations: The Federal rules restrict any use of the information to criminally investigate or prosecute any alcohol or drug abuse patient.[facility] the event this information is protected by the Federal Confidentiality of Alcohol and Drug Abuse Patient Records regulations: The Federal rules restrict any use of the information to criminally investigate or prosecute any alcohol or drug abuse patient.[facility] the event this information is protected by the Federal Confidentiality of Alcohol and Drug Abuse Patient Records regulations: The Federal rules restrict any use of the information to criminally investigate or prosecute any alcohol or drug abuse patient.[facility] the event this information is protected by the Federal Confidentiality of Alcohol and Drug Abuse Patient Records regulations: The Federal rules restrict any use of the information to criminally investigate or prosecute any alcohol or drug abuse patient.[facility] the event this information is protected by the Federal Confidentiality of Alcohol and Drug Abuse Patient Records regulations: The Federal rules restrict any use of the information to criminally investigate or prosecute any alcohol or drug abuse patient.[facility] the event this information is protected by the Federal Confidentiality of Alcohol and Drug Abuse Patient Records regulations: The Federal rules restrict any use of the information to criminally investigate or prosecute any alcohol or drug abuse patient.[facility] Reason for Visit (unrecogniz ed section and content) Reason Comments Follow Up Pain ongoing generalized pain. Specialty Diagnoses / Procedures Referred By Contac t Referred To Contact RHEUMATOLOGY Diagnoses Follow Up Procedures OFFICE/OUTPATIENT ESTABLISHED MOD MDM 30-39 MIN Follow Up Gayle Washington MD [address] [place] [address] [facility] T[place] [address] [facility] [place] [address] Referral ID Status Reason Start Date Expiration Date Visits Requested Visits Authorized [id number] Waiting for Response OON/Self Pay Override Patient cleared - OON Required Payment Collected 12/08/2021 03/08/2022 1 1 Reason Comments Appointment Reason Comments Results Care Teams (unrecognized sec tion and content) Drying Supervisor Relationship Specialty Start Date End Date Kimberley Gibbons, DO [address] [place] [address] PCP - General Family Practice 06/04/21 Drying Supervisor Relationship Specialty Start Date End Date Kimberley Gibbons DO [address] [place] [address] PCP - General Family Practice 06/04/21 Drying Supervisor Relationship Specialty Start Date End Date Kimberley Gibbons DO [address] [place] [address] PCP - General Family Medicine 06/04/21 Drying Supervisor Relationship Specialty Start Date End Date Kimberley Gibbons DO [address] [place] [address] PCP - General Family Medicine 06/04/21 Drying Supervisor Relationship Specialty Start Date End Date Kimberley Gibbons DO [address] [place] [address] PCP - General Family Medicine 06/04/21 Drying Supervisor Relationship Specialty Start Date End Date Kimberley Gibbons DO [address] [place] [address] PCP - General Family Medicine 06/04/21 FOR [...] BE BASED ON THE PRIMARY CLINICAL RECORDS. [facility] [employer] [facility]. provides no warranty or guarantee of the accuracy or completeness of information in this document.
[2023-10-25 08:06] VITALS: BP 145/87; PULSE 93; TEMP 37.1; O2SAT 96
[2023-10-25 08:58] VITALS: BP 135/85; PULSE 91; O2SAT 96
--- NOTE | 2023-10-25 09:00 | W.PM.PROCNOT ---
Date of procedure: 10/25/23 Pre-op diagnosis: Cervical spondylosis Post-op diagnosis: same as pre-op Procedure: Procedure: Bilateral C3-4, 4-5 medial branch block Medications: Bupivacaine 0.25% 6cc The patient was seen and examined in the preoperative holding area.? The informed consent was obtained and placed on the chart.? The patient was brought to the medical procedure unit and placed in the prone position.? A timeout was completed verifying correct patient, procedure site, positioning, plan, and special equipment.? Using aseptic technique, the needle was placed at left C3.? Under direct fluoroscopic visualization, a Quincke tip needle was advanced to the midpoint of the waist of the articular pillar at the respective medial branch segment. The above-mentioned injectate was placed in a 1 mL aliquot proceeded by negative aspiration.? The needle was removed.? The procedure was completed at all left C4, 5. The same procedure, at the same levels, was then completed on the right side. Insertion site was covered.? Patient was taken to the postprocedural recovery area and monitored for an appropriate length of time before found suitable for discharge in the accompaniment of a responsible adult. Anesthesia: Local Surgeon: Rosibel Cotton Pathology: none sent Condition: stable Disposition: no change
[2023-10-25 09:01] VITALS: BP 124/77; PULSE 95; O2SAT 97
[2023-10-25] MEDS: LIDOCAINE HCL 2% 400 MG/20 ML MDV INJ (09:02)
[2023-10-25] MEDS: BUPIVACAINE HCL 0.25% PF 25 MG/10 ML VIAL 8 ML INJ (09:02)
== END 2023-10-25 09:05 | disposition home or self-care (01) ==
LOC: SURGOUT 07:37
PROVIDERS: Visit Provider Anesthesiology
DX: M47.812 Spondylosis without myelopathy or radiculopathy, cervical region (principal)
CPT/HCPCS: 64490; 64491

== ENCOUNTER 2023-12-02 13:54 | Outpatient (OUT) | payer OTHER, SELFPAY ==
--- NOTE | 2023-12-02 14:00 | P.CN_ITS ---
Consult Note: HPI Data of Consult Patient: known to practice within the last 3 years Requesting Physician: Stephanie Mike NP Primary Care Provider: Non-Staff Physician, MD Consult Narrative Reason for consult: establish chronic low back and right hip Narrative: Lizbeth Garcia a pleasant 53 year old female presents for evaluation of chronic pain. Patient has a hx of cervical RFAs with Dr Thornton and tailbone RFAs with Dr Caballero. xray imaging shows mechanical fusion at C5-6. Patient reporting pain today 8/10 throbbing stab pain in right low back, hip, and neck. Patient has a hx of chronic neck pain which is also increasing to 10/10 at times. Pain increased with standing/walking, housework, bending, stairs, activity, pain decreased with sitting and lying. Patient finds mild benefit from ibuprofen, celebrex. Patient failed PT in the past, active in HEP >6 weeks without benefit. Patient denies numbness tingling weakness of legs. Denies loss of bowel/bladder. Recent xray imaging of cervical spine and lumbar spine consistent with degenerative changes, SIJ no abnormal findings. Recently underwent bilateral C3- 4 C4-5 facet medial branch block #1 with >80% improvement right away and hours following. cc:: CC: Stephanie Mike NP Review of Systems ROS Status of ROS 10 or more systems reviewed and unremark able except as noted in history and below Musculoskeletal Reports: back pain and neck pain PFSH PFS Medical History Former cigarette smoker ?Z87.891 - Personal history of nicotine dependence (ICD-10) Heartburn ?R12 - Heartburn (ICD-10) Acid reflux ?K21.9 - Gastro-esophageal reflux disease without esophagitis (ICD-10) Osteoarthritis ?M19.90 - Unspecified osteoarthritis, unspecified site (ICD-10) Low back pain ?M54.50 - Low back pain, unspecified (ICD-10) Factor 5 Leiden mutation, heterozygous ?D68.51 - Activated protein C resistance (ICD-10) Anxiety ?F41.9 - Anxiety disorder, unspecified (ICD-10) Obesity ?E66.9 - Obesity, unspecified (ICD-10) Diabetes ?E11.9 - Type 2 diabetes mellitus without complications (ICD-10) SOB (shortness of breath) ?R06.02 - Shortness of breath (ICD-10) High cholesterol ?E78.00 - Pure hypercholesterolemia, unspecified (ICD-10) Hypertension ?I10 - Essential (primary) hypertension (ICD-10) Irregular heart beat ?I49.9 - Cardiac arrhythmia, unspecified (ICD-10) Angina at rest ?I20.89 - Other forms of angina pectoris (ICD-10) Surgical History H/O arthroscopic knee surgery ?Z98.890 - Other specified postprocedural states (ICD-10) H/O lumbosacral spine surgery ?Z98.890 - Other specified postprocedural states (ICD-10) H/O cervical spine surgery ?Z98.890 - Other specified postprocedural states (ICD-10) H/O arthroscopy of shoulder ?Z98.890 - Other specified postprocedural states (ICD-10) H/O carpal tunnel repair ?Z98.890 - Other specified postprocedural states (ICD-10) H/O: hysterectomy ?Z90.710 - Acquired absence of both cervix and uterus (ICD-10) Meds Home Medications and Allergies Home Medications ?Medication ?Instructions ?Recorded ?Confirmed ?Type B-complex with vitamin C 1 tab PO DAILY 08/26/23 10/25/23 History acetaminophen 500 mg tablet 1,500 mg PO DAILY PRN pain 08/26/23 10/25/23 History (Tylenol Extra Strength) amlodipine 5 mg tablet 5 mg PO DAILY 08/26/23 10/25/23 History aspirin 81 mg capsule 81 mg PO DAILY 08/26/23 10/25/23 History atorvastatin 80 mg tablet 80 mg PO DAILY 08/26/23 10/25/23 History celecoxib 400 mg capsule (Celebrex) 400 mg PO BID 08/26/23 10/25/23 History cholecalciferol (vitamin D3) 50 50 mcg PO DAILY 08/26/23 10/25/23 History mcg (2,000 unit) capsule clonazepam 0.5 mg tablet 0.5 mg PO BID 08/26/23 10/25/23 History cyclobenzaprine 10 mg tablet 10 mg PO BID 08/26/23 10/25/23 History desvenlafaxine succinate 100 mg 100 mg PO DAILY 08/26/23 10/25/23 History tablet,extended release 24 hr (Pristiq) ezetimibe 10 mg tablet 10 mg PO DAILY 08/26/23 10/25/23 History lamotrigine 300 mg tablet,extended 300 mg PO DAILY 08/26/23 10/25/23 History release 24 hr magnesium glycinate PO 08/26/23 History metoprolol succinate 25 mg 25 mg PO DAILY 08/26/23 10/25/23 History tablet,extended release 24 hr quetiapine 200 mg tablet 200 mg PO DAILY 08/26/23 10/25/23 History Allergies Allergy/AdvReac Type Severity Reaction Status Date / Time ibuprofen AdvReac Mild Verified 10/25/23 08:09 tramadol AdvReac Mild Verified 10/25/23 08:09 Exam Constitutional Documenting provider has reviewed patient's vital signs: yes Common normals: no apparent distress, oriented x3, healthy appearing, alert and well nourished General appearance: cooperative HENMT Common normals: normocephalic, hearing grossly normal bilaterally and moist oral mucous membranes Head and scalp: normocephalic Eye Common normals: PERRL Pupil: PERRL Neck & C-Spine Common normals: full ROM General: normal visual inspection Cervical spine: cervical ROM abnormal and pain with cervical ROM Other: axial pain without radiculopathy however positive spurlings pain following bilateral C3-4 C4-5 facets Chest Common normals: inspection of chest normal Respiratory Common normals: normal respiratory effort, no retractions and no use of accessory muscles Back & Pelvis Lumbar spine/lower back: ROM limited and pain with ROM Sacroiliac joints: SI joint(s) abnormal Other: right SIJ pain over PSIS, positive fabers fadirs gaenslens and thigh thrust. negative for radiculopathy. sensation intact BLE, strength 5/5 in BLE Extremity Common normals: normal to inspection and full ROM Neuro Common normals: oriented x3, CN's II-XII intact bilaterally, moves all extremities, no focal motor deficits, no sensory deficits noted and deep tendon reflexes 2+ bilaterally Sensorium/orientation: alert Motor exam: strength 5/5 throughout and no movement abnormalities noted Psych Common normals: mental status grossly normal, thought process normal, cooperative, affect normal, speech normal and activity/motor behavior normal Speech: normal speech Thought process: normal thought process Results Imaging Cervical MRI: Attestation: I have reviewed the pertinent imaging results. Radiologist's impression: FINDINGS: CRANIOCERVICAL AREA: Normal foramen magnum with no Chiari malformation. PARASPINAL AREA: Normal with no visible mass. BONES: Normal alignment with no acute fracture or spondylolisthesis. Signal dropout from anterior fusion C5-C6 CORD: Normal caliber, contour, and signal intensity. CERVICAL DISC LEVELS: C2-C3: No significant disc/facet abnormality, spinal stenosis, or foraminal stenosis. C3-C4: No significant disc/facet abnormality, spinal stenosis, or foraminal stenosis. C4-C5: Mild diffuse disc/osteophyte complex. No central or foraminal stenosis C5-C6: Anterior fusion. No disc bulge or herniation. Mild disc/osteophyte complex. No central or foraminal stenosis C6-C7: No significant disc/facet abnormality, spinal stenosis, or foraminal stenosis. C7-T1:. Early degenerative disc disease is present without focal protrusion or neural impingement. Additional Findings Additional findings: If on a controlled substance or opioids, I have checked an [place] report on this patient and there are no aberrancies noted in the prescribing history.??If on a controlled substance or opioid a drug screen was completed and reviewed within the last year, and if there has not been a drug screen completed we ordered one today to monitor higher risk, state monitored pain medication use. As part of providing excellent, safe, comprehensive care, the following was co mpleted at our patient's visit: 1. A medication reconciliation and review to ensure accurate knowledge of current/active medications, including asking our patients to inform us about any [id number] medications or herbal remedies/nutritional supplements/alternative remedies. 2. A review to specifically ensure our patients have had annual screening for screening for depression, screening for tobacco use, and screening for unhealthy alcohol use. For concerning screenings had a discussion with the patient, provided patient education, and recommended follow-up with primary care provider when appropriate. If patient noted with a risk of falling, they received education on strength, gait, and balance training to prevent future risk of falling. Assessment and Plan Assessment and Plan (1) Cervical spondylosis: (2) Sacroiliitis: (3) Failed back syndrome: (4) Chronic pain syndrome: (5) Encounter for medication monitoring: (6) Chronic prescription benzodiazepine use: (7) Failed neck syndrome: Plan bilateral C3-4 C4-5 facet medial branch block x2 working towards thermal RFA for chronic neck pain NNCP hx of chronic benzodiazepine use and marijuana use continue current medications as tolerated continue HEP as tolerated f/u after injection +
== END 2023-12-02 13:55 | disposition home or self-care (01) ==
LOC: PM 13:54
PROVIDERS: Visit Provider Nurse Practitioner
DX: M47.812 Spondylosis without myelopathy or radiculopathy, cervical region (principal); M46.1 Sacroiliitis, not elsewhere classified; M96.1 Postlaminectomy syndrome, not elsewhere classified; G89.4 Chronic pain syndrome; Z51.81 Encounter for therapeutic drug level monitoring; Z79.891 Long term (current) use of opiate analgesic
CPT/HCPCS: G0463

== ENCOUNTER 2023-12-14 07:37 | Outpatient (RCR) | payer OTHER, SELFPAY ==
[2023-12-16 18:08] LABS: Beta-2 Glycoprotein I Ab, IgA <9 (0-25); Beta-2 Glycoprotein I Ab, IgG <9 (0-20); Beta-2 Glycoprotein I Ab, IgM <9 (0-32)
[2023-12-17 17:09] LABS: APTT 26.3 sec (.); Prothrombin Time 10.2 sec (.); Thrombin Time 18.3 sec (.)
== END 2023-12-14 15:44 | disposition home or self-care (01) ==
LOC: INF 07:37
PROVIDERS: Visit Provider Internal Medicine Hematology & Oncology
DX: D68.69 Other thrombophilia (principal); D68.62 Lupus anticoagulant syndrome; I10 Essential (primary) hypertension; E78.5 Hyperlipidemia, unspecified; R00.0 Tachycardia, unspecified; F17.210 Nicotine dependence, cigarettes, uncomplicated
CPT/HCPCS: 36415; 81241; 85597; 85598; 85610; 85613; 85670; 85730; 85732; 86146; 86147; G0463

== ENCOUNTER 2023-12-20 09:53 | Day surgery (SDC) | payer OTHER, SELFPAY ==
[2023-12-20 10:06] VITALS: BP 135/83; PULSE 98; TEMP 36.7; O2SAT 96
[2023-12-20 10:39] VITALS: BP 137/77; PULSE 90; O2SAT 96
[2023-12-20] MEDS: BUPIVACAINE HCL 0.25% PF 25 MG/10 ML VIAL INJ (10:39)
[2023-12-20 10:40] VITALS: BP 138/82; PULSE 86; O2SAT 97
[2023-12-20] MEDS: LIDOCAINE HCL 2% PF 100 MG/5 ML VIAL INJ (10:40)
--- NOTE | 2023-12-20 10:43 | W.PM.PROCNOT ---
Date of procedure: 12/20/23 Pre-op diagnosis: Pain due to cervical spondylosis without myelopathy Post-op diagnosis: same as pre-op Procedure: Procedure: Bilateral C3-4, 4-5 medial branch block Medications: Bupivacaine 0.25% 6cc The patient was seen and examined in the preoperative holding area.? The informed consent was obtained and placed on the chart.? The patient was brought to the medical procedure unit and placed in the prone position.? A timeout was completed verifying correct patient, procedure site, positioning, plan, and special equipment.? Using aseptic technique, the needle was placed at left C3.? Under direct fluoroscopic visualization, a Quincke tip needle was advanced to the midpoint of the waist of the articular pillar at the respective medial branch segment. The above-mentioned injectate was placed in a 1 mL aliquot proceeded by negative aspiration.? The needle was removed.? The procedure was completed at all left C4, 5. The same procedure, at the same levels, was then completed on the right side. Insertion site was covered.? Patient was taken to the postprocedural recovery area and monitored for an appropriate length of time before found suitable for discharge in the accompaniment of a responsible adult. Anesthesia: Local Surgeon: Rosibel Cotton Pathology: none sent Condition: stable Disposition: no change
== END 2023-12-20 10:46 | disposition home or self-care (01) ==
LOC: SURGOUT 09:54
PROVIDERS: Visit Provider Anesthesiology
DX: M47.812 Spondylosis without myelopathy or radiculopathy, cervical region (principal)
CPT/HCPCS: 64490; 64491; J0665

== ENCOUNTER 2023-12-22 14:46 | Outpatient (OUT) | payer OTHER, SELFPAY ==
--- NOTE | 2023-12-22 14:46 | P.CN_ITS ---
Consult Note: HPI Data of Consult Patient: known to practice within the last 3 years Requesting Physician: Stephanie Mike NP Primary Care Provider: Non-Staff Physician, MD Consult Narrative Reason for consult: establish chronic low back and right hip Narrative: Lizbeth Garcia a pleasant 53 year old female presents for evaluation of chronic pain. Patient has a hx of cervical RFAs with Dr Thornton and tailbone RFAs with Dr Caballero. xray imaging shows mechanical fusion at C5-6. Patient reporting pain today 3/10 throbbing stab pain in right low back, hip, and neck. Patient has a hx of chronic neck pain which is also increasing to 10/10 at times. Pain increased with standing/walking, housework, bending, stairs, activity, pain decreased with sitting and lying. Patient finds mild benefit from ibuprofen, celebrex. Patient failed PT in the past, active in HEP >6 weeks without benefit. Patient denies numbness tingling weakness of legs. Denies loss of bowel/bladder. Recent xray imaging of cervical spine and lumbar spine consistent with degenerative changes, SIJ no abnormal findings. Recently underwent bilateral C3- 4 C4-5 facet medial branch block #2 with >80% improvement right away and hours following. cc:: CC: Stephanie Mike NP Review of Systems ROS Status of ROS 10 or more systems reviewed and unremark able except as noted in history and below Musculoskeletal Reports: back pain, neck pain and joint pain PFSH [facility] Medical History Former cigarette smoker ?Z87.891 - Personal history of nicotine dependence (ICD-10) Heartburn ?R12 - Heartburn (ICD-10) Acid reflux ?K21.9 - Gastro-esophageal reflux disease without esophagitis (ICD-10) Osteoarthritis ?M19.90 - Unspecified osteoarthritis, unspecified site (ICD-10) Low back pain ?M54.50 - Low back pain, unspecified (ICD-10) Factor 5 Leiden mutation, heterozygous ?D68.51 - Activated protein C resistance (ICD-10) Anxiety ?F41.9 - Anxiety disorder, unspecified (ICD-10) Obesity ?E66.9 - Obesity, unspecified (ICD-10) Diabetes ?E11.9 - Type 2 diabetes mellitus without complications (ICD-10) SOB (shortness of breath) ?R06.02 - Shortness of breath (ICD-10) High cholesterol ?E78.00 - Pure hypercholesterolemia, unspecified (ICD-10) Hypertension ?I10 - Essential (primary) hypertension (ICD-10) Irregular heart beat ?I49.9 - Cardiac arrhythmia, unspecified (ICD-10) Angina at rest ?I20.89 - Other forms of angina pectoris (ICD-10) Surgical History H/O arthroscopic knee surgery ?Z98.890 - Other specified postprocedural states (ICD-10) H/O lumbosacral spine surgery ?Z98.890 - Other specified postprocedural states (ICD-10) H/O cervical spine surgery ?Z98.890 - Other specified postprocedural states (ICD-10) H/O arthroscopy of shoulder ?Z98.890 - Other specified postprocedural states (ICD-10) H/O carpal tunnel repair ?Z98.890 - Other specified postprocedural states (ICD-10) H/O: hysterectomy ?Z90.710 - Acquired absence of both cervix and uterus (ICD-10) Meds Home Medications and Allergies Home Medications ?Medication ?Instructions ?Recorded ?Confirmed ?Type B-complex with vitamin C 1 tab PO DAILY 08/26/23 10/25/23 History acetaminophen 500 mg tablet 1,500 mg PO DAILY PRN pain 08/26/23 10/25/23 History (Tylenol Extra Strength) amlodipine 5 mg tablet 5 mg PO DAILY 08/26/23 10/25/23 History aspirin 81 mg capsule 81 mg PO DAILY 08/26/23 10/25/23 History atorvastatin 80 mg tablet 80 mg PO DAILY 08/26/23 10/25/23 History celecoxib 400 mg capsule (Celebrex) 400 mg PO BID 08/26/23 10/25/23 History cholecalciferol (vitamin D3) 50 50 mcg PO DAILY 08/26/23 10/25/23 History mcg (2,000 unit) capsule clonazepam 0.5 mg tablet 0.5 mg PO BID 08/26/23 10/25/23 History cyclobenzaprine 10 mg tablet 10 mg PO BID 08/26/23 10/25/23 History desvenlafaxine succinate 100 mg 100 mg PO DAILY 08/26/23 10/25/23 History tablet,extended release 24 hr (Pristiq) ezetimibe 10 mg tablet 10 mg PO DAILY 08/26/23 10/25/23 History lamotrigine 300 mg tablet,extended 300 mg PO DAILY 08/26/23 10/25/23 History release 24 hr magnesium glycinate PO 08/26/23 History metoprolol succinate 25 mg 25 mg PO DAILY 08/26/23 10/25/23 History tablet,extended release 24 hr quetiapine 200 mg tablet 200 mg PO DAILY 08/26/23 10/25/23 History Allergies Allergy/AdvReac Type Severity Reaction Status Date / Time ibuprofen AdvReac Mild Verified 10/25/23 08:09 tramadol AdvReac Mild Verified 10/25/23 08:09 Exam Constitutional Documenting provider has reviewed patient's vital signs: yes Common normals: no apparent distress, oriented x3, healthy appearing, alert and well nourished General appearance: cooperative HENMT Common normals: normocephalic, hearing grossly normal bilaterally and moist oral mucous membranes Head and scalp: normocephalic Eye Common normals: PERRL Pupil: PERRL Neck & C-Spine Common normals: full ROM General: normal visual inspection Cervical spine: cervical ROM abnormal and pain with cervical ROM Other: axial pain without radiculopathy however positive spurlings pain following bilateral C3-4 C4-5 facets Chest Common normals: inspection of chest normal Respiratory Common normals: normal respiratory effort, no retractions and no use of accessory muscles Back & Pelvis Lumbar spine/lower back: ROM limited, pain with ROM and straight leg raise positive right Sacroiliac joints: SI joint(s) abnormal Other: right SIJ pain over PSIS, positive fabers fadirs gaenslens and thigh thrust. negative for radiculopathy. sensation intact BLE, strength 5/5 in BLE Extremity Common normals: normal to inspection and full ROM Neuro Common normals: oriented x3, CN's II-XII intact bilaterally, moves all extremities, no focal motor deficits, no sensory deficits noted and deep tendon reflexes 2+ bilaterally Sensorium/orientation: alert Motor exam: strength 5/5 throughout and no movement abnormalities noted Psych Common normals: mental status grossly normal, thought process normal, cooperative, affect normal, speech normal and activity/motor behavior normal Speech: normal speech Thought process: normal thought process Results Additional Findings Additional findings: If on a controlled substance or opioids, I have checked an [place] report on this patient and there are no aberrancies noted in the prescribing history.??If on a controlled substance or opioid a drug screen was completed and reviewed within the last year, and if there has not been a drug screen completed we ordered one today to monitor higher risk, state monitored pain medication use. As part of providing excellent, safe, comprehensive care, the following was completed at our patient's visit: 1. A medication reconciliation and review to ensure accurate knowledge of current/active medications, including asking our patients to inform us about any [id number] medications or herbal remedies/nutritional supplements/alternative remedies. 2. A review to specifically ensure our patients have had annual screening for screening for depression, screening for tobacco use, and screening for unhealthy alcohol use. For concerning screenings had a discussion with the patient, provided patient education, and recommended follow-up with primary care provider when appropriate. If patient noted with a risk of falling, they received education on strength, gait, and balance training to prevent future risk of falling. Assessment and Plan Assessment and Plan (1) Cervical spondylosis: (2) Sacroiliitis: (3) Failed back syndrome: (4) Chronic pain syndrome: (5) Encounter for medication monitoring: (6) Chronic prescription benzodiazepine use: (7) Failed neck syndrome: (8) Lumbar stenosis with neurogenic claudication: Plan right then left C3-4 C4-5 facet medial branch thermal RFA to be completed under fluoroscopy and with IV sedation due to the inability to safely lie flat and tolerate the procedures. NNCP hx of chronic benzodiazepine use and marijuana use continue current medications as tolerated continue HEP as tolerated f/u after injection +
--- OUTSIDE RECORDS SUMMARY | 2023-12-22 14:54 | XMS_ITS | CCD ---
Author Organization [facility] Care Team Providers Care Brimmer Blocker Name Role Phone ZAIRE, CRISTOBAL F Primary [...] Care Unavailable FELICIA, FEMI H. Referring Unavailable Empire, Cristobal F Unavailable [phone] Edwige DO, Kimberley Leora Primary Care Provider [phone] Emmett Brunner Unavailable Letty Olson Unavailable Edwige DO, Kimberley Leora Primary Care Provider [phone] EDWIGE, KIMBERLEY LEORA Referring Unavailable EDWIGE, KIMBERLEY LEORA Primary Care Unavailable FELXI, GAYLE Attending Unavailable EDWIGE, KIMBERLEY LEORA Primary Care [...] DAYAMI ., DR RACHEL Layne Attending Unavailable STOCK [...] Unavailable Kimberley Gibbons DO Primary Care Provider Unavailable Primary Care Provider Unavailulices e NICOLE TELLES Referring Unavailable NICOLE TELLES Referring Unavailable Yury ARGUELLO, Rosibel Laurent Attending Unavailable Yury ARGUELLO, Rosibel Laurent Attending Unavailable KIMBERLEY GIBBONS Attending Unavailable JESSIE REID Referring Unavailable CLIFFORD VANN Attending Unavailab IZABEL Steiner Attending Unavailable KIMBERLEY GIBBONS Attending Unavailable SOLITARIO GARCÍA Attending Unavailable TIM SAMUELS Attending Unavailable ELODIA OSCAR Attending Unavailable DALE HUTCHISON Admitting Unavailable DALE HUTCHISON Attending Unavailable DALE HUTCHISON Referring Unavailable SOLITARIO GARCÍA Attending Unavailable SOLITARIO GARCÍA Attending Unavailable Allergies Allergy Classification Reported Allergen(s) Allergy Type Date of Onset Reaction(s) Facility NSAIDs (1 source) Ibuprofen; 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: [IBUPROFEN] Drug Allergy 0 [facility]ository Opioid Agonists (1 source) traMADol; 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: [TRAMADOL] Drug Allergy 9 [facility] (8 sources) Ibuprofen; 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: [IBUPROFEN] Drug Allergy 0 Unknown, Diarrhea [facility] (20 sources) traMADol; 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: [TRAMADOL] Drug Allergy 9 Unknown, Nausea Only [facility] (1 source) Ibuprofen Drug Allergy [facility] Repository (1 source) traMADol Drug Allergy 2 [facility] Repository Medications Current Medications Medication [...] on above: Take 1 capsule by mo [facility] twice daily. Take 1 capsule by [facility] two times a day. clonazePAM 0.5 mg [...] daily. 0 Active take 1 tablet by [facility] every twenty-four hours Pristiq 100 MG 1 [...] tablet by mouth 0 12/01/2022 12/01/2023 Active [place]-3 Fatty Acids (FISH OIL) 1200 MG CAPS (1 source) [place]-3 Fatty Ac ids (FISH OIL) 1200 MG [...] Take 0.5 mg by mouth once daily. urlnk-pd-1-eay-fxu-yhdy joey-ast 1,402-916-61-80 mg cap (4 sources) cywgy-zf-7-dha-e pa-joey spho-ast 1,979-952-81-80 mg cap Take by mouth. 0 Active [...] Classification Problem Date Documented Da te Episodic/Chronic Cardiac dysrhythmias (3 sources) Tachycardia; 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: [Tachycardia, unspecified] Onset: 04-16-2020 05-03-2020 Episodic Coagulation and hemorrhagic disorders (2 sources) Hereditary deficiency of other clotting factors; 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: [Hereditary deficiency of other clotting factors] Onset: 11-02-2023 Chronic Coronary atherosclerosis and other heart disease (2 [...] [Mixed hyperlipidemia] Onset: 12-01-2022 Chronic Esophageal disorders (3 sources) Gastro-esophageal reflux disease without esophagitis; 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: [GERD WITHOUT ESOPHAGITIS] Onset: 10-19-2022 Chronic Essential hypertension (2 sources) Essential (primary) hypertension; 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: [Essential (primary) hypertension] Onset: 01-13-2023 Chronic Nutritional deficiencies (8 sources) Vitamin D deficiency; 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: [Vitamin D deficiency, unspecified] Onset: 12-12-2021 Chronic Osteoarthritis (11 sources) Degenerative joint disease involving multiple joints; 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] Onset: 06-05-2021 Chronic Other aftercare (1 source) shelter (current) use of anticoagulants; 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: [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 CURRNT USE ANTICOAGULANTS] Onset: 10-19-2022 Episodic Other aftercare (2 sources) shelter (current) use of non-steroidal anti-inflammatories (NSAID); 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) use of non-steroidal anti-inflammatories (nsaid)] Onset: 06-22-2023 Episodic Other bone disease and musculoskeletal deformities [...] Problem Classification Problem Date Documented Date Episodic/Chronic Nonspecific chest pain (2 sources) Other chest [...] forms of dyspnea] Onset: 01-13-2023 Episodic Other non-traumatic joint disorders (7 sources) [...] conditions (not mental disorders or infectious disease) (10 sources) Elevated C-reactive protein; 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: [Elevated C-reactive protein (CRP)] Onset: 06-05-2021 Episodic Other skin disorders (5 sources) Soft tissue swelling; 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: [Localized swelling, mass and lump, unspecified] Onset: 06-06-2021 06-06-2021 Episodic Residual codes; unclassified (2 sources) Asymptomatic menopausal state; 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: [Asymptomatic menopausal state] Onset: 04-27-2023 Episodic Spondylosis; intervertebral disc disorders; other back problems (20 sources) Chronic low back pain; 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: [Lumbago with sciatica, left side] Onset: 06-18-2020 Resolved: 10-14-2021 Episodic Results Test Name Value Interpretation Reference Range Facility Abstracton 11-30-2023 Abstract [id number] Lexi Garcia 1970 Provider Department Center 11/30/2023 SVITLANA TORRES [facility] Family History Problem Relation Age of Onset COPD Mother Coronary artery disease Father 56 Family Status - Relation Status Age at Mother Alive Father [facility] 36on 11-22-2023 34 Last visit: 10/26/23 Next visit: 01/25/24 CBC: 12/12/21 BMP: 01/21/23 [facility] Refillon 11-20-2023 Refill [id number] Lexi Garcia 1970 Provider Department Center 11/20/2023 SOLITARIO ADAMS [facility] Family History Problem Relation Age of Onset COPD Mother Coronary artery disease Father 56 Family Status - Relation Status Age at Mother Alive Father Reason for Visit and Comments: Med Refill [809372] [facility] Office Visiton 11-02-2023 Follow-up visit [id number] Lexi Garcia 1970 Date Provider Department Center 11/02/2023 Haroon-TIM SAMUELS Family History Problem Relation Age of Onset COPD Mother Coronary artery disease Father 56 Family Status - Relation Status Age at Mother Alive Father Level of Service:49027 [place] OFFICE/OUTPATIENT ESTABLISHED MOD MDM 30 MIN Reason for Visit and Comments: Atrial Fibrillation [80] - symptoms Normal [facility] Follow-Upon 10-26-2023 Follow-Up [id number] Lexi Garcia 1970 F Date Provider Department Center 10/26/2023 Ilda-SOLITARIO GARCÍA [facility] Family History Problem Relation Age of Onset COPD Mother Coronary artery disease Father 56 Family Status - Relation Status Age at Mother Alive Father Level of Service:38156 [place] OFFICE/OUTPATIENT ESTABLISHED LOW MDM 20 MIN (GC) Reason for Visit and Comments: Follow-up [[id number]] Normal [facility] Celiac Disease Panelon 09-13 Gliadin Deam Pep IgA 1.9 U/mL Normal <7.0 [facility] Comment on above: Result Comment: CELIAC INTERPRETATION <7.0 Negative 7.0-10.0 Equivocal >10.0 Positive units: U/mL Performed By: #### C ELP #### [place] [address] Senior Buyer Planner: Talib Clements MD Gliadin Deam Pep IgG <0.4 Normal <7.0 [facility] Comment on above: Result Comment: CELIAC INTERPRETATION <7.0 Negative 7.0-10.0 Equivocal >10.0 Positive units: U/mL Performed By: #### C ELP #### [place] [address] Senior Buyer Planner: Talib Clements MD Tiss Transglutam IgA 0.4 U/mL Normal <7.0 [facility] Comment on above: Result Comment: CELIAC INTERPRETATION <7.0 Negative 7.0-10.0 Equivocal >10.0 Positive units: U/mL Performed By: #### C ELP #### [place] [address] Senior Buyer Planner: Talib Clements MD IgA [Mass/Vol] 184 mg/dL Normal 70-400 [facility] Comment on above: Performed By: #### C ELP #### [place] [id number] Senior Buyer Planner: Talib Clements MD H. pylori Antigenon 09-14-19 24 H. pylori Antigen Specimen Description .FECES Direct Exam NEGATIVE Report Status FINAL 09/14/2023 Normal [facility] Comment on above: Performed By: #### F HPY #### [facility] [address] [place] [address] Senior Buyer Planner: Talib Clements MD [facility] [address] [place] [address] Senior Buyer Planner: David Hough MD Orders Onlyon 08-05-2023 Orders Only [id number] Lexi Garcia 1970 F Date Provider Department Center 08/05/2023 SHANON HSIEH Family History Problem Relation Age of Onset COPD Mother Coronary artery disease Father 56 Family Status - Relation Status Age at Mother Alive Father Normal [facility] Follow-Upon 06-22-2023 Follow-Up [id number] Lexi Garcia 1970 F Date Provider Department Center 06/22/2023 SOLITARIO ADAMS [facility] Family History Problem Relation Age of Onset COPD Mother Coronary artery disease Father 56 Family Status - Relation Status Age at Mother Alive Father Level of Service:19722 [place] OFFICE/OUTPATIENT ESTABLISHED MOD MDM 30 MIN () Reason for Visit and Comments: Follow-up [167211] - Normal [facility] DEXA BONE DENSITYon 05-11-20 23 DEXA BONE DENSITY HISTORY: Screening f or [...] year follow-up recommended. 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 I let her know I sent a new mychart code so she can establish mychart and view her visit information there Normal [facility] Office Visiton 02-10-2023 Follow-up visit [id number] Lexi Garcia 1970 Provider Department Center 02/10/2023 ELODIA ZAFAR ALYSA Lorenzana Family History Problem Relation Age of Onset COPD Mother Coronary artery disease Father 56 Family Status - Relation Status Age at Mother Alive Father Level of Service:62344 [place] OFFICE/OUTPATIENT ESTABLISHED MOD MDM 30 MIN Reason for Visit and Comments: Follow-up [[id number]] - Pt is here for f/u heart cath [facility] HPon 01-25-2023 -- Attestation signed by Dale [...] Will be undergoing LHC to evaluate coronaries. [facility] Miguel 01-25-2023 JOSEPHINE RN educated pt on d/ c instructions. RN encouraged pt to voice any questions or concerns. Pt verbalizes no questions or concerns at this time. Pt was wheeled off of unit with all of belongings. [facility] JOSEPHINE Pozo made awar e of Ibuprophen allergy. States to give Aspirin 325mg oral today. Patient tolerates her 81mg Aspirin at home. Normal [facility] HPon 01-13-2023 HP Reviewed Echocardiogram- [...] symptoms. Mixed hyperlipidemia Continue statin Elodia Oscar ENFORCEMENT SAFETY OFFICER Division of Cardiology, [facility]- [phone] Pager- [phone] Email- [email or web address] Normal [facility] Orders Onlyon 01-13-2023 Orders Only [id number] Lexi Garcia 1970 F Date Provider Department Center 01/13/2023 120-ELODIA OSCAR CARD Fernando . Family History Problem Relation Age of Onset COPD Mother Coronary artery disease Father 56 Family Status - Relation Status Age at Mother Alive Father Normal [facility] CBC AUTO DIFFon 10-07-2022 BASO # 0.0 103/ul Normal 0.0-0.1 [facility] Comment on above: Performed By: #### C BC #### [facility] [address] [address] [address] Donna Cantrell Basophils/100 WBC (Bld) 0.5 % Normal 0.2-2.0 [facility] Comment on above: Performed By: #### C BC #### [facility] [address] [address] [address] Donna Cantrell EO # 0.0 103/ul Normal 0.0-0.7 [facility] Comment on above: Performed By: #### C BC #### [facility] [address] [place] [address] Dr. Donna Cantrell Eosinophils/100 WBC (Bld) 0.0 % Critically low 0.9-7.0 [facility] Comment on above: Performed By: #### C BC #### [facility] [address] [place] [address] Dr. Donna Cantrell Erythrocyte distribution width (RBC) [Ratio] 13.6 % Normal 11.0-15.0 [facility] Comment on above: Performed By: #### C BC #### [facility] [address] [place] [address] Dr. Donna Cantrell Hematocrit (Bld) [Volume fraction] 42.0 % Normal 36.0-48.0 [facility] Comment on above: Performed By: #### C BC #### [facility] [address] [place] [address] Dr. Donna Cantrell Hemoglobin (Bld) [Mass/Vol] 14.4 g/dL Normal 12.0-16.0 [facility] Comment on above: Performed By: #### C BC #### [facility] [address] [place] [address] Dr. Donna Cantrell IG # 0.06 10e3/ul Critically high 0.00-0.03 [facility] Comment on above: Performed By: #### C BC #### [facility] [address] [place] [address] Dr. Donna Cantrell IG % 0.8 % Critically high 0.0-0.5 [facility] Comment on above: Performed By: #### C BC #### [facility] [address] [place] [address] Dr. Donna Cantrell LYMPH # 2.5 103/ul Normal 1.2-3.8 [facility] Comment on above: Performed By: #### C BC #### [facility] [address] [place] [address] Dr. Donna Cantrell Lymphocytes/100 WBC (Bld) 30.8 % Normal 20.5-60.0 [facility] Comment on above: Performed By: #### C BC #### [facility] [address] [place] [address] Dr. Donna Cantrell MANUAL DIFF REQ NO Normal [facility] Comment on above: Performed By: #### C BC #### [facility] [address] [place] [address] Dr. Donna Cantrell MCH (RBC) [Entitic mass] 30.3 pg Normal 26.7-34.0 [facility] Comment on above: Performed By: #### C BC #### [facility] [address] [place] [address] Dr. Donna Cantrell MCHC (RBC) [Mass/Vol] 34.3 g/dL Normal 29.9-35.2 [facility] Comment on above: Performed By: #### C BC #### [facility] [address] [place] [address] Dr. Donna Cantrell MCV (RBC) [Entitic vol] 88.2 fL Normal 81.0-99.0 [facility] Comment on above: Performed By: #### C BC #### [facility] [address] [place] [address] Dr. Donna Cantrell MONO # 0.5 103/ul Normal 0.3-0.8 [facility] Comment on above: Performed By: #### C BC #### [facility] [address] [place] [address] Dr. Donna Cantrell Monocytes/100 WBC (Bld) 6.4 % Normal 1.7-12.0 [facility] Comment on above: Performed By: #### C BC #### [facility] [address] [place] [address] Dr. Donna Cantrell NEUT # 4.9 103/ul Normal 1.4-6.5 [facility] Comment on above: Performed By: #### C BC #### [facility] [address] [place] [address] Dr. Donna Cantrell Neutrophils/100 WBC (Bld) 61.5 % Normal 43.0-75.0 [facility] Comment on above: Performed By: #### C BC #### [facility] [address] [place] [address] Dr. Donna Cantrell Platelet mean volume (Bld) [Entitic vol] 9.9 fL Normal 9.5-13.5 [facility] Comment on above: Performed By: #### C BC #### [facility] [address] [place] [address] Dr. Donna Cantrell PLT 234 103/ul Normal 150-450 [facility] Comment on above: Performed By: #### C BC #### [facility] [address] [place] [address] Dr. Donna Cantrell RBC 4.76 106/ul Normal 4.20-5.40 [facility] Comment on above: Performed By: #### C BC #### [facility] [address] [place] [address] Dr. Donna Cantrell WBC 8.0 103/ul Normal 4.0-11.0 [facility] Comment on above: Performed By: #### C BC #### [facility] [address] [place] [address] Dr. Donna Cantrell PROF CHEM 8 (BAS METB)on Anion gap [Moles/Vol] 13.9 mmol/L Normal [facility] Comment on above: Performed By: #### B MP #### [facility] [address] [place] [address] Dr. Donna Cantrell Calcium [Mass/Vol] 8.9 mg/dL Normal 8.5-10.1 [facility] Comment on above: Performed By: #### B MP #### [facility] [address] [place] [address] Dr. Donna Cantrell Chloride [Moles/Vol] 104 mmol/L Normal 98-107 [facility] Comment on above: Performed By: #### B MP #### [facility] [address] [place] [address] Dr. Donna Cantrell CO2 [Moles/Vol] 26.3 mmol/L Normal 21.0-32.0 [facility] Comment on above: Performed By: #### B MP #### [facility] [address] [place] [address] Dr. Donna Cantrell Creatinine [Mass/Vol] 0.91 mg/dL Normal 0.55-1.02 [facility] Comment on above: Performed By: #### B MP #### [facility] [address] [place] [address] Dr. Donna Cantrell EGFR-AF UGANDAN >60 Normal >=60 [facility] Comment on above: Performed By: #### B MP #### [facility] [address] [address] [address] Donna Cantrell EGFR-NON AF UGANDAN >60 Normal >=60 [facility] Comment on above: Performed By: #### B MP #### [facility] [address] [place] [address] Dr. Donna Cantrell Glucose [Mass/Vol] 127 mg/dL Critically high 74-106 [facility] Comment on above: Performed By: #### B MP #### [facility] [address] [place] [address] Dr. Donna Cantrell Potassium [Moles/Vol] 4.2 mmol/L Normal 3.5-5.1 [facility] Comment on above: Performed By: #### B MP #### [facility] [address] [place] [address] Dr. Donna Cantrell Sodium [Moles/Vol] 140 mmol/L Normal 136-145 [facility] Comment on above: Performed By: #### B MP #### [facility] [address] [place] [address] Dr. Donna Cantrell Urea nitrogen [Mass/Vol] 15.0 mg/dL Normal 7.0-18.0 [facility] Comment on above: Performed By: #### B MP #### [facility] [address] [place] [address] Dr. Donna Cantrell Urea nitrogen/Creatinine [Mass ratio] 16.5 mg/mg Normal [facility] Comment on above: Performed By: #### B MP #### [facility] [address] [place] [address] Dr. Donna Cantrell PROTIMEon 10-07-2022 INR Coag (PPP) [Relative time] {INR} Normal [facility] Comment on above: Performed By: #### B LTM #### [facility] [address] [place], [place] [id number] Dr. Donna Cantrell INR GUIDELINES SEE BELOW Normal [facility] Comment on above: Result Comment: SHIRA RED INR: 2.0 - 3.0 CONDITIONS NOT LISTED BELOW 2.5 - 3.5 FOR PROSTHETIC HEART VALVE REPLACEMENT 2.5 - 3.5 RECURRENT THROMBOSIS Performed By: #### B LTM #### [facility] [address] [address] [address] Donna Cantrell PT Coag (PPP) [Time] 9.7 s Normal 9.0-11.6 [facility] Comment on above: Performed By: #### B LTM #### [facility] [address] [place] [address] Dr. Donna Cantrell PTTon 10-07-2022 aPTT Coag (Bld) [Time] 29.6 s Normal 22.3-36.2 [facility] Comment on above: Performed By: #### B LTM #### [facility] [address] [place] [address] Dr. Donna Cantrell SCREENING MAMMOGRAM W/AJ, BILATERAL*on [...] VERY IMPORTANT TO YOUR HEALTH. THE CURRENT [place] [employer] GUIDELINES RECOMMENDS ANNUAL MAMMOGRAPHY BEGINNING AT AGE 40 THIS FACILITY USES A REMINDER SYSTEM TO ENSURE ALL PATIENTS RECEIVE REMINDER NOTIFICATIONS AT THE APPROPRIATE TIME BASED ON THE RECOMMENDATIONS OF THIS EXAM. Report reported and signed by Eder Barraza on 07/01/2022 1545 Normal [facility] XR Shoulder Complete Right*o n 07-01-2022 XR [...] by Eder Barraza on 07/02/2022 0746 Normal [facility] XR Spine Lumbar Complete w/F jama AND [employer] 07-01-2022 XR Spine Lumbar Complete w/Flex AND [...] by Eder Barraza on 07/02/2022 0744 Normal [facility] CNPNon 12-17-2021 CNPN Telephone (AMARJIT) LEXI GARCIA ([id number]) 1970 F Date Time Provider Department 12/17/21 GAYLE WASHINGTON During your visit today, we recorded the following information about you: Gayle Washington MD 12/17/2021 2:54 PM Signed Please Call patient if MyChart note not read to review results/released to My Chart if tests completed at [facility]: Mildly low vitamin D- increase over [...] PO Daily January 07, 2021 7:15am - faugl-bb-8-dha-epa-joey spho-ast 1,535-290-48-80 mg cap Take by mouth. - PNV [...] - Estradiol (more content not included)... Normal [facility] BLEEDING TIMEon 12-16-2021 BLEEDING TIME 7.0 min Normal 1.0-8.0 [facility] Comment on above: Result Comment: test done by Esha Almodovar Performed By: #### B LTM #### [facility] [address] [place] [address] Dr. Donna Cantrell 25([place])D3 [facility] 25-hydroxyvitamin D3 [Mass/Vol] 29.6 ng/mL Low 31.0-80.0 [facility] Comment on above: Order Comment: Speci men Type: BLOOD SPECIMEN Ordering Facility: [facility] Address: [address] [place] [address] Result Comment: Clas sification of 25 [place] Vitamin D status: Deficiency/Insufficiency: < or = 30 ng/ml. Sufficiency/Optimal Levels: 31-80 ng/mL Toxicity: > 100 ng/mL. Test performed by chemiluminescent immunoassay. Performed By: #### 1 989-3 #### [facility] CLIA [id number] [address] [place] [address] [place] CBC panel Auto (Bld)on 12-12 Erythrocyte distribution width (RBC) [Ratio] 14.4 % Normal 11.5-15.0 [facility] Comment on above: Order Comment: Speci tia Type: BLOOD SPECIMEN Ordering Facility: [facility] Address: [address] [place] [address] Performed By: #### 5 8410-2 #### [facility] CLIA [id number] [address] [place] [address] [place] Hematocrit (Bld) [Volume fraction] 45.2 % Normal 36.0-46.0 [facility] Comment on above: Order Comment: Speci tia Type: BLOOD SPECIMEN Ordering Facility: [facility] Address: [address] [place], [place] [address] Performed By: #### 5 8410-2 #### [facility] CLIA [id number] [address] [place] [address] [place] Hemoglobin (Bld) [Mass/Vol] 14.8 g/dL Normal 11.5-15.5 [facility] Comment on above: Order Comment: Speci men Type: BLOOD SPECIMEN Ordering Facility: [facility] Address: [address] [place], [place] [address] Performed By: #### 5 8410-2 #### [facility] CLIA [id number] [address] [place] [address] [place] MCH (RBC) [Entitic mass] 29.7 pg Normal 26.0-34.0 [facility] Comment on above: Order Comment: Speci men Type: BLOOD SPECIMEN Ordering Facility: [facility] Address: [address] [place], [place] [address] Performed By: #### 5 8410-2 #### [facility] CLIA [id number] [address] [place] [address] [place] MCHC (RBC) [Mass/Vol] 32.7 g/dL Normal 30.5-36.0 [facility] Comment on above: Order Comment: Speci men Type: BLOOD SPECIMEN Ordering Facility: [facility] Address: [address] [place], [place] [address] Performed By: #### 5 8410-2 #### [facility] CLIA [id number] [address] [place] [address] [place] MCV (RBC) [Entitic vol] 90.8 fL Normal 80.0-100.0 [facility] Comment on above: Order Comment: Speci men Type: BLOOD SPECIMEN Ordering Facility: [facility] Address: [address] [place], [place] [address] Performed By: #### 5 8410-2 #### [facility] CLIA [id number] [address] [place] [address] [place] Nucleated RBC (Bld) [#/Vol] 10*3/uL Normal <0.01 [facility] Comment on above: Order Comment: Speci men Type: BLOOD SPECIMEN Ordering Facility: [facility] Address: [address] [place], [place] [address] Performed By: #### 5 8410-2 #### [facility] CLIA [id number] [address] [place] [address] [place] Platelet mean volume (Bld) [Entitic vol] 10.7 fL Normal 9.0-12.7 [facility] Comment on above: Order Comment: Speci men Type: BLOOD SPECIMEN Ordering Facility: [facility] Address: [address] [place] [address] Performed By: #### 5 8410-2 #### [facility] CLIA [id number] [address] [place] [address] [place] Platelets (Bld) [#/Vol] 259 10*3/uL Normal 150-400 [facility] Comment on above: Order Comment: Speci men Type: BLOOD SPECIMEN Ordering Facility: [facility] Address: [address] [place], [place] [address] Performed By: #### 5 8410-2 #### [facility] CLIA [id number] [address] [place] [address] [place] RBC (Bld) [#/Vol] 4.98 10*6/uL Normal 3.90-5.20 [facility] Comment on above: Order Comment: Speci men Type: BLOOD SPECIMEN Ordering Facility: [facility] Address: [address] [place] [address] Performed By: #### 5 8410-2 #### [facility] CLIA [id number] [address] [place] [address] [place] WBC (Bld) [#/Vol] 9.25 10*3/uL Normal 3.70-11.00 [facility] Comment on above: Order Comment: Speci men Type: BLOOD SPECIMEN Ordering Facility: [facility] Address: [address] [place] [phone] Performed By: #### 5 8410-2 #### [facility] CLIA [id number] [address] [place] [address] [id number] [place], [place] [id number] [facility] CNOVon 12-12-2021 CNOV Office Visit (AMARJIT ) LEXI GARCIA ([id number]) 1970 F Date Time Provider Department 12/12/21 [...] see ortho/pain clinic for long term care phlebotomist pain recommendations/inject ions, prn acetaminophen, start prn heat/ice/otc arthritis creams, low impact weightbearing exercise as tolerated, avoid aggravating triggers,supportive care, start flexeril/notify office if not tolerated, improved with mobic, see ortho/pain clinic for half-way pain recommendations/inject ions, prn acetaminophen, start prn [...] yes Dactylitis: no H/o precedent/frequent infection(s): no Enthesopathy/Etowah's /heel/plantar tenderness: as above Skin thickening, psoriasis, photosensitivity, purpura: no Nail changes: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 [address] GFR/1.73 sq M predicted among blacks MDRD (S/P/Bld) [Vol rate/Area] mL/min/{1.73_m2} Normal >60 [facility] Comment on above: Result Comment: >60 mL/min/1.73m2 EGFR, calc. for ages 18 and older using the MDRD formula (not corrected for weight), is valid for stable renal function. Performed By: #### B MP #### [facility] [address] [place] [address] GFR/1.73 sq M.predicted MDRD (S/P/Bld) [Vol rate/Area] mL/min/{1.73_m2} Normal >60 [facility] Comment on above: Result Comment: >60 mL/min/1.73m2 EGFR, calc. for ages 18 and older using the MDRD formula (not corrected for weight), is valid for stable renal function. Performed By: #### B MP #### [facility] [address] [place] [address] Glucose [Mass/Vol] 87 mg/dL Normal 70-99 [facility] Comment on above: Performed By: #### B MP #### [facility] [address] [place] [address] Potassium [Moles/Vol] 3.8 mmol/L Normal 3.4-4.9 [facility] Comment on above: Performed By: #### B MP #### [facility] [address] [place] [address] Sodium [Moles/Vol] 140 mmol/L Normal 135-144 [facility] Comment on above: Performed By: #### B MP #### [facility] [address] [place] [address] Urea nitrogen [Mass/Vol] 20 mg/dL Normal 6-20 [facility] Comment on above: Performed By: #### B MP #### [facility] [address] [place] [address] CBC With Platelet No Differe ntialon 06-18-2020 Erythrocyte distribution width (RBC) [Ratio] 14.2 % Normal 11.5-14.5 [facility] Comment on above: Performed By: #### C BCND #### [facility] [address] [place] [address] Hematocrit (Bld) [Volume fraction] 41.5 % Normal 37.0-47.0 [facility] Comment on above: Performed By: #### C BCND #### [facility] [address] [place] [address] Hemoglobin (Bld) [Mass/Vol] 14.3 g/dL Normal 12.0-16.0 [facility] Comment on above: Performed By: #### C BCND #### [facility] [address] [place] [address] MCH (RBC) [Entitic mass] 31.4 pg Critically high 27.0-31.3 [facility] Comment on above: Performed By: #### C BCND #### [facility] [address] [place] [address] MCHC (RBC) [Mass/Vol] 34.5 % Normal 33.0-37.0 [facility] Comment on above: Performed By: #### C BCND #### [facility] [address] [place] [address] MCV (RBC) [Entitic vol] 91.2 fL Normal 82.0-100.0 [facility] Comment on above: Performed By: #### C BCND #### [facility] [address] [place] [address] Platelets (Bld) [#/Vol] 241 10*3/uL Normal 130-400 [facility] Comment on above: Performed By: #### C BCND #### [facility] [address] [place] [address] RBC (Bld) [#/Vol] 4.55 10*6/uL Normal 4.20-5.40 [facility] Comment on above: Performed By: #### C BCND #### [facility] [address] [place] [address] WBC (Bld) [#/Vol] 9.7 10*3/uL Normal 4.8-10.8 [facility] Comment on above: Performed By: #### C BCND #### [facility] [address] [place] [address] COVID-19, NAAon 06-18-2020 Source Swab ENF[employer]CEMENT SAF[employer]Y 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 swab Normal [facility] Comment on above: Performed By: #### I RCOV #### [facility] [address] [place] [address] Prothrombin Timeon 0 INR Coag (PPP) [Relative time] 1.0 {INR} Normal [facility] Comment on above: Performed By: #### P T ####[facility] [place] [phone] PT Coag (PPP) [Time] 13.1 s Normal 12.3-14.9 [facility] Comment on above: Performed By: #### P T ####[facility] [place] [phone] Type and Screen Capture 3 sc rn cellon 06-18-2020 Type and Screen Capture 3 scrn cell PATIENT: JOSHUA Doss LOC: [facility] BILL# : [id number] : 1970 SEX: F ORDERED BY: TEENA Lowe ORDERED : 06/18/2020 15:07 COLLECTED: 06/18/2020 15:36 ORDER : [id number] RECEIVED : 06/18/2020 15:36 Second, confirmatory specimen needed to satisfy [employer] policy. TEST NAME RESULT UNITS RANGES ABN FL ST [facility] Capture O POS F Antibody 3 Cell Scrn Captu NEG F Normal [facility] Comment on above: Performed By: #### T S3C #### [facility] [address] [place] [address] XR SPINE ENTIRE (2-3 VIEWS)o n 06-18-2020 [...] Ash Horta MD 06/19/20 Final result Normal [facility] FLUORO FOR SURGICAL PROCEDUR ESon 05-09-2020 FLUORO [...] Maximiliano Rachel MD 05/09/20 Final result Normal [facility] COVID-19, NAAon 05-05-2020 COVID-19, BELLE Not Detected Normal Not Detect [facility] Comment on above: Result Comment: This nucleic acid amplification test was developed and its performance characteristics determined by [employer]. Nucleic acid amplification tests include PCR and [...] detected) result in this assay. Performed at: [place] [address] [facility], [place] [id number] Senior Buyer Planner: Altagracia Quiñonez MD, Phone: [phone] Performed By: #### I RCOV ####[facility] [place] [phone] Basic Metabolic Panelon 10-3 0-2020 Anion gap [Moles/Vol] 12 mmol/L Normal 9-15 [facility] Comment on above: Performed By: #### B MP #### [facility] [address] [place] [address] Calcium [Mass/Vol] 10.5 mg/dL Critically high 8.5-9.[address] [facility] Comment on above: Performed By: #### B MP #### [facility] [address] [place] [address] Chloride [Moles/Vol] 98 mmol/L Normal 95-107 [facility] Comment on above: Performed By: #### B MP #### [facility] [address] [place] [address] CO2 [Moles/Vol] 27 mmol/L Normal 20-31 [facility] Comment on above: Performed By: #### B MP #### [facility] [address] [place] [address] Creatinine [Mass/Vol] 0.82 mg/dL Normal 0.50-0.90 [facility] Comment on above: Performed By: #### B MP #### [facility] [address] [place] [address] GFR/1.73 sq M predicted among blacks MDRD (S/P/Bld) [Vol rate/Area] mL/min/{1.73_m2} Normal >60 [facility] Comment on above: Result Comment: >60 mL/min/1.73m2 EGFR, calc. for ages 18 and older using the MDRD formula (not corrected for weight), is valid for stable renal function. Performed By: #### B MP #### [facility] [address] [place] [address] GFR/1.73 sq M.predicted MDRD (S/P/Bld) [Vol rate/Area] mL/min/{1.73_m2} Normal >60 [facility] Comment on above: Result Comment: >60 mL/min/1.73m2 EGFR, calc. for ages 18 and older using the MDRD formula (not corrected for weight), is valid for stable renal function. Performed By: #### B MP #### [facility] [address] [place] [address] Glucose [Mass/Vol] 84 mg/dL Normal 70-99 [facility] Comment on above: Performed By: #### B MP #### [facility] [address] [place] [address] Potassium [Moles/Vol] 4.6 mmol/L Normal 3.4-4.9 [facility] Comment on above: Performed By: #### B MP #### [facility] [address] [place] [address] Sodium [Moles/Vol] 137 mmol/L Normal 135-144 [facility] Comment on above: Performed By: #### B MP #### [facility] [address] [place] [address] Urea nitrogen [Mass/Vol] 31 mg/dL Critically high 6-20 [facility] Comment on above: Performed By: #### B MP #### [facility] [address] [place] [address] CBC With Platelet No Differe ntial05-03-2020 Erythrocyte distribution width (RBC) [Ratio] 14.3 % Normal 11.5-14.5 [facility] Comment on above: Performed By: #### C BCND #### [facility] [address] [place] [address] Hematocrit (Bld) [Volume fraction] 41.3 % Normal 37.0-47.0 [facility] Comment on above: Performed By: #### C BCND #### [facility] [address] [place] [address] Hemoglobin (Bld) [Mass/Vol] 13.6 g/dL Normal 12.0-16.0 [facility] Comment on above: Performed By: #### C BCND #### [facility] [address] [place] [address] MCH (RBC) [Entitic mass] 30.7 pg Normal 27.0-31.3 [facility] Comment on above: Performed By: #### C BCND #### [facility] [address] [place] [address] MCHC (RBC) [Mass/Vol] 33.0 % Normal 33.0-37.0 [facility] Comment on above: Performed By: #### C BCND #### [facility] [address] [place] [address] MCV (RBC) [Entitic vol] 92.9 fL Normal 82.0-100.0 [facility] Comment on above: Performed By: #### C BCND #### [facility] [address] [place] [address] Platelets (Bld) [#/Vol] 241 10*3/uL Normal 130-400 [facility] Comment on above: Performed By: #### C BCND #### [facility] [address] [place] [address] RBC (Bld) [#/Vol] 4.44 10*6/uL Normal 4.20-5.40 [facility] Comment on above: Performed By: #### C BCND #### [facility] [address] [place] [address] WBC (Bld) [#/Vol] 11.0 10*3/uL Critically high 4.8-10.8 [facility] Comment on above: Performed By: #### C BCND #### [facility] [address] [place] [address] COVID-19, NAAon 05-03-2020 Source Swab Anterior nares Normal [facility] Comment on above: Performed By: #### I RCOV ####[facility] [place] [phone] Partial Thromboplastin Timeo n 05-03-2020 aPTT Coag (Bld) [Time] 31.3 s Normal 24.4-36.8 [facility] Comment on above: Performed By: #### P TT #### [facility] [address] [place] [address] Prothrombin Timeon 0 INR Coag (PPP) [Relative time] 0.9 {INR} Normal [facility] Comment on above: Performed By: #### P T #### [facility] [address] [place] [address] PT Coag (PPP) [Time] 11.9 s Low 12.3-14.9 [facility] Comment on above: Performed By: #### P T #### [facility] [address] [place] [address] Type and Screen Capture 3 sc rn cellon 05-03-2020 Type and Screen Capture 3 scrn cell PATIENT: JOSHUA Doss LOC: [facility] BILL# : [id number] : 1970 SEX: F ORDERED BY: STEPHANIE Harrison ORDERED : 05/03/2020 14:14 COLLECTED: 05/03/2020 14:14 ORDER : [id number] RECEIVED : 05/03/2020 19:43 TEST NAME RESULT UNITS RANGES ABN FL [facility] Capture O POS F Antibody 3 Cell Scrn Captu NEG F Normal [facility] Comment on above: Performed By: #### T S3C #### [facility] [address] [place] [address] Established Visit (Orthopaed ic Surgery)on 04-26-2020 Established [...] biceps. No pain with resisted elbow flexion. Computer Aided Design Drafter strength 5/5 Elbow flexion 5/5. Shoulder abduction [...] Chiara Espinosa PA-C Department of Orthopaedic Surgery [facility] Dictation performed with the use [...] scans evaluated by the musculoskeletal radiologist at [facility] I will call the patient back [...] her light touch sensation is grossly intact. Computer Aided Design Drafter strength is 5/5 elbow flexion 5/5 shoulder [...] 97.52 kg Gayle Washington MD Work Phone: [facility] 12-12-2021 10:43-0400 Diastolic blood pressure 87 mm[Hg] Gayle Washington MD Work Phone: [facility] 12-12-2021 10:43-0400 Heart rate 88 /min Gayle Washington MD Work Phone: [facility] 12-12-2021 10:43-0400 Systolic blood pressure 125 mm[Hg] Gayle Washington MD Work Phone: [facility] 10-14-2021 10:30-0400 Diastolic blood pressure 80 mm[Hg] Emmett Brunner Other [email or web address] Other 10-14-2021 10:30-0400 SaO2% (BldA) [Mass fraction] 98 % Emmett Brunner Other [email or web address] Other 10-14-2021 10:30-0400 Systolic blood pressure 130 mm[Hg] Emmett Brunner Other [email or web address] Other 07-01-2021 15:30-0500 Body weight 94.62 kg Letty Wesley Other [email or web address] Other 07-01-2021 15:30-0500 Diastolic blood pressure 78 mm[Hg] Letty Wesley Other [email or web address] Other 07-01-2021 15:30-0500 Respiratory rate 18 /min Letty Wesley Other [employer] Other 07-01-2021 15:30-0500 SaO2% (BldA) [Mass fraction] 98 % Letty Wesley Other [employer] Other 07-01-2021 15:30-0500 Systolic blood pressure 118 mm[Hg] Letty Wesley Other [employer] Other 06-18-2021 15:45-0500 Diastolic blood pressure 90 mm[Hg] Emmettarmani Brunner Other [employer] Other 06-18-2021 15:45-0500 SaO2% (BldA) [Mass fraction] 97 % Emmettarmani Brunner Other [email or web address] Other 06-18-2021 15:45-0500 Systolic blood pressure 122 mm[Hg] Emmett Brunner Other [employer] Other 05-15-2021 17:30-0500 Body weight 92.53 kg Emmett Brunner Other [email or web address] Other 05-15-2021 17:30-0500 Diastolic blood pressure 80 mm[Hg] Emmett Brunner Other [employer] Other 05-15-2021 17:30-0500 Systolic blood pressure 130 mm[Hg] Emmett Brunner Other [employer] Other 04-02-2021 14:30-0400 Body weight 92.63 kg Emmett Brunner Other [email or web address] Other 04-02-2021 14:30-0400 Diastolic blood pressure 88 mm[Hg] Emmett Brunner Other [email or web address] Other 04-02-2021 14:30-0400 SaO2% (BldA) [Mass fraction] 98 % Emmett Brunner Other [email or web address] Other 04-02-2021 14:30-0400 Systolic blood pressure 140 mm[Hg] Emmett Brunner Other [email or web address] Other Encounters Encounter Date Encounter Type Care Provider Facility Start: 11-02-2023 End: 11-02-2023 ambulatory TIM [facility] Start: 10-29-2023 End: 10-29-2023 ambulatory IZABEL LARA Not Available Start: 10-28-2023 End: 10-28-2023 ambulatory CLIFFORD VANN Not Available Start: 10-26-2023 End: 10-26-2023 ambulatory SOLITARIO GARCÍA [facility] Start: 10-25-2023 End: 10-26-2023 ambulatory Rosibel Cotton MD Facility:[facility] Start: 09-20-2023 End: 09-21-2023 ambulatory Rosibel Cotton MD Facility:[facility] Start: 09-13-2023 End: 09-14-2023 ambulatory NICOLE Christiansen [facility] Start: 09-13-2023 Encounter for other preprocedural examination NICOLEFAHAD TELLES [facility] Start: 09-13-2023 End: 03-11-2024 Subsequent hospital visit by physician [facility] Comment on above: Flatulence, eructati on and gas pain Start: 07-26-2023 End: 07-26-2023 ambulatory KIMBERLEY GIBBONS Not Available Start: 06-22-2023 End: 06-22-2023 ambulatory [facility] Start: 06-18-2023 End: 06-18-2023 ambulatory KIMBERLEY GIBBONS Not Available Start: 05-11-2023 End: 05-12-2023 ambulatory JESSIE REID Not Available Start: 04-27-2023 End: 04-27-2023 ambulatory [facility] Start: 04-07-2023 ambulatory Gayle Washington MD Work Phone: Rheumatology Comment on above: Fax info Start: 02-10-2023 End: 02-10-2023 ambulatory ELODIA [facility] Start: 01-25-2023 End: 01-25-2023 ambulatory D[facility] Start: 10-16-2022 Encounter for preprocedural cardiovascular examination DR ULISES TIM [facility] Start: 10-16-2022 Encounter for preprocedural laboratory examination DR ULISES TIM [facility] Start: 10-13-2022 End: 10-13-[address] ULISES TIM Facility:[facility]1 Start: 10-07-2022 End: 10-08-[address] ULISES TIM Facility:[facility] Start: 10-07-2022 End: 10-08-2022 Encounter for preprocedural cardiovascular examination DR ULISES TIM Facility:[facility] Start: 07-23-2022 End: 07-24-2022 ambulatory BEN Quiñonez Facility:[facility] Start: 06-11-2022 End: 06-12-[address] [...] Management Start: 12-12-2021 End: 12-13-2021 ambulatory KIMBERLEY JEANEFE [email or web address] Other Start: 12-12-2021 End: 12-12-2021 Patient encounter [...] 10-29-2021 Chart Update Cristobal miller Work Phone: [id number] Work Phone: Start: 10-14-2021 End: 10-14-2021 ambulatory Emmett Brunner Other [email or web address] Other Start: 10-14-2021 Patient encounter procedure Emmett Brunner [facility] Start: 09-23-2021 End: 09-23-2021 ambulatory Emmett Brunner Other [email or web address] Other Start: 09-23-2021 Telephone encounter Emmettarmani Brunner [facility] Start: 07-01-2021 End: 07-01-2021 ambulatory Lettyra Chiangz Other [email or web address] Other Start: 07-01-2021 Office outpatient vi sit 25 minutes Letty Wesley [facility] Start: 06-26-2021 (Procedure) Short Emmett Brunner [facility] Start: 06-26-2021 End: 06-26-2021 ambulatory Emmett Brunner Other [email or web address] Other Start: 06-18-2021 End: 06-18-2021 ambulatory Emmett Brunner Other [email or web address] Other Start: 06-18-2021 Office outpatient vi sit 25 minutes Emmett Kannan [facility] Start: 06-18-2021 Telephone encounter Emmettarmani Brunner [facility] Start: 06-04-2021 End: 06-04-2021 Subsequent hospital visit by physician Christina [facility] Comment on above: Chronic hip pain, bi lateral [M25.551, M25.552, G89.29] Start: 05-21-2021 (Procedure) Short Emmett Brunnre [facility] Start: 05-21-2021 End: 05-21-2021 ambulatory Emmettarmani Brunner Other [email or web address] Other Start: 05-15-2021 End: 05-15-2021 ambulatory Emmettarmani Brunner Other [email or web address] Other Start: 05-15-2021 Office outpatient vi sit 25 minutes Emmett Kannan [facility] Start: 04-30-2021 (Procedure) Short Emmett Brunner [facility] Start: 04-16-2021 (Procedure) Short Emmett Brunner [facility] Start: 04-02-2021 Office outpatient vi sit 25 minutes Emmett Brunner [facility] Start: 02-21-2021 Office outpatient vi sit 15 minutes Cristobalsherrell Tomas Work Phone: [id number] Work Phone: Start: 06-25-2020 End: 06-27-2020 Evaluation and management of inpatient FEMI Khang [facility] [place] Start: 06-25-2020 End: 06-28-2020 Patient encounter [facility] Start: 06-18-2020 End: 06-23-2020 Patient encounter procedure [facility] Start: 05-09-2020 End: 05-09-2020 Patient encounter procedure [facility] Procedures Date Procedure Procedure Detail Performing Clinician Start: 09-13-2023 Assay of gammaglobul in iga igd igg igm each Nicole Telles [employer]PER[employer]OR [employer] - [employer]UMBER Work Phone: Start: 06-04-2021 Radex hips bilateral with pelvis minimum 5 views Gayle Washington MD Work Phone: Start: 06-17-2020 Mammography Gayle jeffries MD Work Phone: Start: 06-09-2018 Lipid 1996 panel - S willian or Plasma Gayle Washington MD Work Phone: Plan of Treatment Date Care Activity Detail Author Start: 12-12-2024 DIABETES SCREEN DIABETES SCREEN [facility] Start: 12-12-2024 Diabetes Screening Diabetes Screening [facility] Start: 07-01-2024 Screening for malignant neoplasm of breast Breast cancer screen [facility] Start: 02-03-2024 End: 02-03-2024 Admission to same day surgery center 02/03/2024 8:45 AM EDT - 02/03/2024 9:05 AM EDT Surgery [facility] [address] [place] [address] Nancy Durand MD [address] [place] [address] ESOPHAGOGASTRODUODENOSCOPY [facility] OR Comment on above: ESOPHAGOGASTRODUODENOSCOPY Start: 02-03-2024 End: 02-03-2024 Esophagogastroduodenoscopy transoral diagnostic ESOPHAGOGASTRODUODENOSCOPY Chronic GERD 02/03/2024 8:45 AM EDT [facility] Start: 02-03-2024 Subsequent hospital visit by physician 02/03/2024 8:45 AM EDT Hospital [facility] [address] [place] [address] Nancy Durand MD [address] [place] [address] [facility] Start: 07-05-2023 Annual Wellness Visit (Medicare Advantage) Annual Wellness Visit (Medicare Advantage) [facility] Start: 06-09-2023 Lipid 1996 panel - Serum or Plasma Lipid Screening [facility] Start: 06-09-2023 LIPID SCREEN LIPID SCREEN [facility] Start: 03-05-2023 COVID-19 Vaccine (2022- season) COVID-19 Vaccine ( season) [facility] Start: 03-05-2023 Influenza vaccination [facility] Start: 02-02-2023 Influenza vaccination Flu vaccine (#1) [facility] Start: 07-05-2022 DEPRESSION ASSESSMENT DEPRESSION ASSESSMENT [facility] Start: 03-19-2022 End: 12-17-2022 25-hydroxyvitamin D3 [Mass/volume] in Serum or Plasma VITAMIN D 25 HYDROXY Lab Routine Vitamin D deficiency Expected: 03/19/2022 (Approximate), Expires: 12/17/[address] [facility] Work Phone: Comment on above: Expected: 03/19/2022 (Approximate), Expi res: 12/17/2022 Start: 03-05-2022 Influenza vaccination [facility] Start: 08-21-2021 COVID-19 VACCINE (2 - Booster for Barbara series) COVID-19 VACCINE (2 - Booster for Barbara series) [facility] Start: 07-05-2021 DEPRESSION ASSESSMENT DEPRESSION ASSESSMENT [facility] Start: 06-17-2021 Mammography [facility] Start: 2018 Shingles vaccine (1 of 2) Shingles vaccine (1 of 2) [facility] Start: 2018 SHINGRIX VACCINE (1 of 2) SHINGRIX VACCINE (1 of 2) [facility] Start: 2013 COLOGUARD (FIT-DNA) COLOGUARD (FIT-DNA) [facility] Start: 2013 Colonoscopy COLONOSCOPY [facility] Start: 2013 COLORECTAL CANCER SCREENING COLORECTAL CANCER SCREENING [facility] Start: [address] COLONOGRAPHY [facility] Start: 2013 FECAL OCCULT BLOOD FECAL OCCULT BLOOD [facility] Start: 2013 Screening for malignant [facility]oplasm of [facility] Start: 2013 SIGMOIDOSCOPY SIGMOIDOSCOPY [facility] Start: 1998 HPV TESTING HPV TESTING [facility] Start: 1989 PAP TESTING PAP TESTING [facility] Start: 1987 DTaP/Tdap/Td vaccine (1 - Tdap) DTaP/Tdap/Td vaccine (1 - Tdap) [facility] Start: 1987 Urine microalbumin profile [facility] Start: 1986 Hepatitis C screening Hepatitis C screen [facility] Start: 1986 HIV SCREENING HIV SCREENING [facility] Start: 1983 HIV screening HIV screen [facility] Start: 1980 Adult depression screening assessment DEPRESSION SCREENING [facility] Start: 1980 Depression Screen Depression Screen [facility] Start: 1978 Lipid panel Lipids [facility] Start: 1974 PNEUMOCOCCAL (1 - PCV) PNEUMOCOCCAL (1 - PCV) [facility] Start: 1974 Pneumococcal 0-64 years Vaccine (1 - PCV) Pneumococcal 0-64 years Vaccine (1 - PCV) [facility] Start: 1974 Pneumococcal vaccination Pneumococcal Vaccine (1 - PCV) [facility] Start: 1968 HEPATITIS B (1 of 3 - 3-dose series) HEPATITIS B (1 of 3 - 3-dose series) [facility] Start: 1968 Hepatitis B Vaccine (1 of 3 - 3-dose series) Hepatitis B Vaccine (1 of 3 - 3-dose series) [facility] Celiac Disease Panel Celiac Dise ase Panel Lab Routine Flatulence, eructation and gas pain 09/13/2023 4:20 PM EDT [facility] [employer] End: 09-13-2023 H. pylori antigen [facility] Comment on above: Once for 1 Occurrences starting 09/13/19 24 until 09/13/2023 End: 09-13-2023 H. Pylori Antigen, Stool H. Pylori Antigen, Stool Lab Routine Flatulence, eructation and gas pain 1 Occurrences starting 09/13/2023 until 09/13/2023 [employer] Work Phone: Comment on above: 1 Occurrences starting 09/13/2023 until 09/13/2023 Immunizations Immunization Date Immunization Notes Care Provider Fa aleksandr 04-06-2019 influenza, injectabl e, quadrivalent, preservative free Cristobal Tomas Work Phone: [id number] man [address] Work Phone: 04-06-2019 influenza virus vaccine, unspecified formulation Gayle Washington MD Work Phone: [facility] 05-15-2016 seasonal influenza, intradermal, preservative free Cristobal Tomas Work Phone: [facility] [employer] Payers Date Payer Category Payer Unknown 2021 Unknown CLAYTON CHAIREZINA HI X [id number] 2021-Present [phone] [address] [address] [place] [address] HMO [id number] 2020 Private Health Insurance [facility] CHOICE PL[employer] [id number] 2020-2021 [address] [address] [place] [address] PPO [id number] 2018 Unknown [id number] 2017 Unknown [id number] 1968 Unknown [id number] 2.16.840.1.566952.3.579.2 .182 1968 Unknown [id number] 2.16.840.1.811008.3.579.2 .182 1968 Unknown [id number] 2.16.840.1.753068.3.579.2 .182 1968 Unknown [id number] 2.16.840.1.130238.3.579.2 .182 1968 Unknown [id number] 2.16.840.1.316590.3.579.2 .182 1968 Unknown [id number] 2.16.840.1.327999.3.579.2 .593 1968 Unknown [id number] 2.16.840.1.257647.3.579.2 .593 1968 Unknown [id number] 2.16.840.1.666867.3.579.2 .593 1968 Unknown [id number] 2.16.840.1.736986.3.579.2 .593 1968 Unknown [id number] 2.16.840.1.184262.3.579.2 .593 1968 Unknown [id number] 2.16.840.1.406185.3.579.2 .593 1968 Unknown [id number] 2.16.840.1.061745.3.579.2 .593 1968 Unknown [id number] 2.16.840.1.257544.3.579.2 .593 1968 Unknown [id number] 2.16.840.1.263853.3.579.2 .593 1968 Unknown [id number] 2.16.840.1.264889.3.579.2 .593 1968 Unknown [id number] 2.16.840.1.938984.3.579.2 .593 1968 Unknown [id number] 2.16.840.1.957957.3.579.2 .173 1968 Unknown [id number] 2.16.840.1.252794.3.579.2 .173 1968 Unknown [id number] 2.16.840.1.697895.3.579.2 .196 1968 Unknown [id number] 2.16.840.1.500895.3.579.2 .196 1968 Unknown [id number] 2.16.840.1.823515.3.579.2 .1259 1968 Unknown [id number] 2.16.840.1.069557.3.579.2 .1259 1968 Unknown [id number] 2.16.840.1.666613.3.579.2 .1259 1968 Unknown [id number] 2.16.840.1.388359.3.579.2 .1259 1968 Unknown [id number] 2.16.840.1.430394.3.579.2 .1259 1968 Unknown [id number] 2.16.840.1.606974.3.579.2 .1259 1968 Unknown [id number] 2.16.840.1.134259.3.579.2 .1259 Social History Date Type Detail Facility Start: 06-04-2021 End: 09-08-2023 Tobacco smoking status NYIS Smokes tobacco daily [facility] History of tobacco use Cigarette Smoker [facility] Start: 05-03-2020 End: 06-04-2021 Cigarettes smoked current (pack per day) - Reported 1 [facility] Start: 06-04-2021 End: 09-08-2023 Tobacco use and exposure Smokeless tobacco non-user [facility] Start: 12-12-2021 End: 09-08-2023 Alcohol intake Current drinker of alcohol (finding) [facility] Start: 06-04-2021 History SDOH Alcohol Comment rarely. [facility] Start: 1970 Sex Assigned At Not on file [facility] Start: 11-29-2021 End: 12-09-2021 Exposure to SARS-CoV-2 (event) Unable to assess [facility] Start: 05-03-2020 End: 06-05-2021 Sex Assigned At [email or web address] Other Start: 05-05-2021 End: 06-04-2021 Exposure to SARS-CoV-2 (event) Not sure [facility] National Score (1-100), lower number is lower risk 95 [facility] (I/We) worried whether (my/our) food would run out before (I/we) got money to buy more. Never true [employer] Start: 09-08-2023 Tobacco Comment intermittently since 15 [facility] [email or web address] Start: 05-03-2020 Alcohol Comment hardly ever [employer] Medical Equipment Procedure Code Equipment Code Equipment Original Text Equipment Identifier Dates Impl Alena Spine R michael [id number] Mm 55 Mm [id number] Start: 06-25-2020 Graft Spnl W11xh [id number] Corticocancellous Lord Triad - [id number] Start: 05-09-2020 Plate Spnl L28mm Antr Cerv 1 Lev Translational [place] Acp [id number] Start: 05-09-2020 Screw Spnl L13mm Dia4mm Ant Cerv [facility] Ang Compr [place] Acp [id number] Start: 05-09-2020 Connector Spnl C rss Lo Prof Adj Reline-O 5.5 X 45-65 Mm [id number] Start: 06-25-2020 Screw Spnl Dia5. 5mm Opn Tulip Roselyn Reline [id number] Start: 06-25-2020 Graft Bne Sub 30 cc 1.7-10mm Canc Chip Morselized Frz Dry - [id number] Start: 06-25-2020 Graft Bne Sub 5m l Mtrx Cellular Osteocel + - [id number] Start: 06-25-2020 Spacer Spnl L W1 [id number] 4deg Post Lum Intbdy Fus Lord [id number] Start: 06-25-2020 Screw Spnl L50mm Dia7.5mm Post Thoracolumbosacral Polyax 2s [id number] Start: 06-25-2020 Screw Spnl L55mm Od6mm 2s Polyax Reline O [id number] Start: 06-25-2020 Alena Spnl Lordtc 5.5x40 Mm Ti Reline-O [id number] Start: 06-25-2020 Clinical Notes 04-02-2021 to 11-02-2023 Telephone Encounter - Gayle Washington MD - 04/07/2023 1:34 PM EDTTelephone Encounter - Nadine Bruce LPN - 04/07/2023 12:34 PM EDTTelephone Encounter - Gayle Washington MD - 05/18/2022 5:45 PM EST Note Date & Type Note Facility 11-02-2023 Note Cardiovascular Medic [facility] SUBJECTIVE Chief Complaint Patient presents with Atrial Fibrillation symptoms Lexi Garcia is a 53 y.o. female here for follow-up. HPI PMHx: HTN, depression, anxiety, tachycardia, factor V, pre-DM, fibromyalgia She has been waking up feeling like her heart is racing. She has accompanied dyspnea and chest pain. This can also occur during the day as well. She has chest tightness that worsens at the end of the day. She has had palpitations for the past year. Has worsened recently. She has noticed worsening sx's with exertion. She has had worsened HOFFMAN such as with mowing the grass. She notes testing positive for factor V leiden per her PCP but she was not started on AC. Patient Active Problem List Diagnosis Chest pain, atypical Benign essential HTN HOFFMAN (dyspnea on exertion) Fibromyalgia Elevated d-dimer Mixed hyperlipidemia GERD without esophagitis Orthopnea Sleep disturbances Abnormal nuclear stress test Unstable angina (CMS/HCC) Coronary artery disease involving paimiut coronary artery of paimiut heart without angina pectoris Degenerative joint disease involving multiple joints Osteopenia NSAID long-term use Past Medical History: Diagnosis Date ACL tear R knee, s/p repair in 2019 Anxiety Carpal tunnel syndrome, bilateral s/p B/L release in 2016 Chronic low back pain herniated disc s/p [...] Tobacco dependence in remission Vitamin D deficiency Family History Problem Relation Name Age of Onset COPD Mother Coronary artery disease Father 56 Social History Tobacco Use Smoking status: Every Day Packs/day: 0.50 Years: 30.00 Additional pack years: 0.00 Total pack years: 15.00 Types: Cigarettes Last attempt to quit: 02/2023 Years since quittin.7 Smokeless tobacco: Never Substance Use Topics Alcohol use: Not Currently Drug use: Not Currently Allergies Allergen Reactions Ibuprofen Diarrhea, Other and Unknown Upset stomach Tramadol Unknown and Nausea Only Upset stomach Review of Systems Constitutional: Positive for malaise/fatigue. Negative for chills, decreased appetite, fever and weight gain. Cardiovascular: Positive for chest pain, dyspnea on exertion and palpitations. Negative for irregular heartbeat, leg swelling, near-syncope, orthopnea, paroxysmal nocturnal dyspnea and syncope. Hematologic/Lymphatic: Negative for bleeding problem. Does not bruise/bleed easily. OBJECTIVE Visit Vitals BP 130/84 (BP Location: Left arm, Patient Position: Sitting, BP Cuff Size: Adult) Pulse 92 Resp 16 Ht 1.626 m (5' 4 ) Wt 100 kg (221 lb 6.4 oz) SpO2 97% BMI 38.00 kg/m??? Smoking Status Every Day BSA 2.13 m??? Medications: Current Outpatient Medications: acetaminophen (Tylenol) 325 mg tablet, Take 650 mg by mouth every 6 (six) hours if needed., Disp: , Rfl: acyclovir (Zovirax) 400 mg tablet, , Disp: , Rfl: amLODIPine (Norvasc) 10 mg tablet, Take 10 mg by mouth in the morning., Disp: , Rfl: amoxicillin-pot clavulanate (Augmentin) 875-125 mg tablet, , Disp: , Rfl: aspirin 81 mg EC tablet, Take 81 mg by mouth in the morning., Disp: , Rfl: atorvastatin (Lipitor) 80 mg tablet, Take 1 tablet (80 mg) by mouth in the morning., Disp: 90 tablet, Rfl: 3 celecoxib (CeleBREX) 400 mg capsule, Take 1 capsule (400 mg) by mouth in the morning and at bedtime., Disp: 60 capsule, Rfl: 6 clobetasol (Temovate) 0.05 % cream, , Disp: , Rfl: clonazePAM (KlonoPIN) 0.5 mg tablet, Take 0.5 mg by mouth if needed in the morning and at bedtime., Disp: , Rfl: cyclobenzaprine (Flexeril) 10 mg tablet, Take 1 tablet (10 mg) by mouth if needed in the morning and at bedtime for muscle spasms., Disp: 60 tablet, Rfl: 6 desvenlafaxine (Pristiq) 100 mg 24 hr tablet, , Disp: , Rfl: ezetimibe (Zetia) 10 mg tablet, TAKE ONE TABLET BY MOUTH EVERY MORNING, Disp: 90 tablet, Rfl: 3 fluticasone (Flonase) 50 mcg/actuation nasal spray, Administer 1 spray into affected nostril(s) in the morning., Disp: , Rfl: lamoTRIgine (LaMICtal) 100 mg tablet, , Disp: , Rfl: lamoTRIgine (LaMICtal) 200 mg tablet, Take 300 mg by mouth in the morning., Disp: , Rfl: metoprolol succinate XL (Toprol-XL) 25 mg 24 hr tablet, Take 1 tablet (25 mg) by mouth in the morning. Do not crush or chew., Disp: 90 tablet, Rfl: 3 multivitamin (Theragran-M) 9 mg iron-400 mcg tablet, Take 1 tablet by mouth in the morning., Disp: , Rfl: nicotine (Nicoderm CQ) 21 mg/24 hr patch, Place 1 patch on the skin., Disp: , Rfl: o (more content not included)... [facility] 11-02-2023 Note ecg [facility] 10-26-2023 Note PT STATE SHE HAS BEE N DIZZY RECENTLY PT STATES TAKES MEDS TO MANAGE DEPRESSION SX [facility] 10-26-2023 Note Attestation signed by Jessie Reid MD at 10/26/2023 12:50 PM I personally saw and examined the patient on the same date of service as resident/fellow . I discussed the findings and therapeutic plan with the resident/fellow . I agree with the documentation, except for any edits/updates below. Teaching Physician's Revisions: Fibromyalgia symptoms seems to be improving, now follows up with pain management, will decrease Celebrex due to worsening heartburn [facility] Follow-up Patient Visit Subjective Chief Complaint: Follow-up Lexi Garcia is an 53 y.o. female [...] seldomly used, leftover from surgery in 2019). Vitamin D and calcium supplementation. Patient presents for follow-up today. Since last visit, she re-established with Pain Management and just got injections in her neck yesterday. Since Celebrex was increased, she has noticed more RLS, progressively worse control of GERD (unsure how much NSAID is truly contributing and seeing GI), and 40-50% reduction in pain. Patient is tolerating medications well, without significant side effects and with improving symptom control on current regimen. She does note more stressors lately. But, she has noticed less activity limitation, able to do more and has started walking (trying to increase her distances now that she has less back pain). Today, patient reports pain that is 6/10 in severity, was rated at 5 last visit. 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 AM stiffness lasts 1-2 hrs (was 2-3 hr prior), on average daily. Denies joint erythema, swelling, warmth. Comprehensive History: Patient Active Problem List Diagnosis Chest pain, atypical Benign essential HTN HOFFMAN (dyspnea on exertion) Fibromyalgia Elevated d-dimer Mixed hyperlipidemia GERD without esophagitis Orthopnea Sleep disturbances Abnormal nuclear stress test Unstable angina ([facility]) Coronary artery disease involving paimiut coronary artery of paimiut heart without angina pectoris Degenerative joint disease involving multiple joints Osteopenia NSAID long-term use Past Medical History: Diagnosis Date ACL tear R knee, s/p repair in 2019 Anxiety Carpal tunnel syndrome, bilateral s/p B/L release in 2017 Chronic low back pain herniated disc s/p L5 lumbar disc surgery in 2020 Chronic neck pain s/p C6-7 fusion, s/p C6-7 plate removal then C5 and C6 plates in 2020 Chronic pain disorder Depression Factor V Leiden ([facility]) Fibromyalgia, primary GERD (gastroesophageal reflux disease) Hyperlipidemia [...] the morning. 90 tablet 3 celecoxib (CeleBREX) 400 mg capsul (more content not included)... [facility] 06-22-2023 Note Attestation signed by Jessie Reid [...] subchondral sclerosis noted on fist [facility] joints [facility] Follow-up Patient Visit Subjective Chief [...] seldomly used, leftover from surgery in 2019). Vitamin D and calcium supplementation. Patient presents [...] Unstable angina (CMS/HCC) Coronary artery disease involving paimiut coronary artery of paimiut heart without angina pectoris Degenerative joint disease [...] the morning. aspirin (more content not included)... [facility] 04-27-2023 Note Attestation signed by [...] history of diffuse pain presented today to psychiatric hospital care, previously followed by [facility] Exam was remarkable for diffuse tenderness consistent with fibromyalgia, she reports episodic swelling in hands and feet, no synovitis was noted on exam today Will do further workup as below We discussed risks of NSAIDs including but not limited to: kidney impairment, GI ulcer/bleed, CV risk, etc. [facility] New Patient Visit Subjective Chief Complaint: New Patient (/ENFORCEMENT SAFETY OFFICER/hx of joint pain /ref in chart) Lexi [...] longer covers former provider. She formerly saw [facility] Rheumatology with last visit in December 2021 per available records. She was diagnosed with fibromyalgia by former open soaper tender on the basis of widespread MSK pain, [...] after CTS release with dropping things, decreased windows systems administrator strength. Reports sometimes she has swelling, [...] couple months), Biofreeze topical (helps), ice (helpful), ELIZABETH bandages on knees (helps). Denies current joint [...] Patient Active Proble (more content not included)... [facility] 04-07-2023 Note Reviewed recent lipi [...] 163 from 128 last draw Elodia Oscar ENFORCEMENT SAFETY OFFICER Division of Cardiology, [facility]- [phone] Pager- [phone] Email- [email or web address] 04-07-2023 Miscellaneous Notes Notify patient medication sent [...] faxed with confirmation. documented in this encounter [facility] 02-10-2023 Note Coronary artery dise ase is stable Continue GDMT- ASA, lipitor, toprol continue risk factor modifications- heart healthy diet, regular exercise as tolerated and continue all medications. Pt to have repeat lipid and lft levels drawn soon [facility] 02-10-2023 Note D/W pt that may need to see GI for further evaluation for other etiology of her chest pain and may be r/t GERD [facility] 02-10-2023 Note Currently stable [facility] 02-10-2023 Note Currently denied chest pain [facility] 02-10-2023 Note Continue lipitor 80 mg, lipid level well controlled currently [facility] 02-10-2023 Note Hypertension is stab le and well controlled at home [facility] Note UTP CARDIOLOGY PROGR ESS NOTE [...] stenosis. LCX - (more content not included)... [facility] 02-10-2023 Note Review of Systems All other systems reviewed and are negative. [facility] 01-25-2023 Note Patient: Lexi suarez Procedure Information Date/Time: 01/25/23929 Procedures: Coronary angiography Left heart cath (Left) - Lt and CORS Location: [facility] / [facility] (Cath) Providers: Dale Hutchison [...] Plan discussed with attending. Additional Equipment Requests [facility] 01-13-2023 Note Noted reversible per fusion, and unstable angina with HOFFMAN therefore heart cath ordered No acute concerns noted on echocardiogram- normal LVSF, normal RV function and no significant valvular abnormalities [facility] 01-13-2023 Note Ordered heart cath [facility] 01-13-2023 Note Plan for cardiac cat h- orders placed Pt updated [facility] 01-13-2023 Note Continue statin [facility] 01-13-2023 Note Abnormal stress with reversible perfusion defect Will order cardiac cath to assess for any significant coronary stenosis that would correlate with her Unstable Angina symptoms. [facility] 01-13-2023 Note Continue meds [facility] 01-13-2023 Note Reviewed Echocardiog shabbir- 12/21/22 Normal [...] symptoms. Mixed hyperlipidemia Continue statin Elodia Oscar ENFORCEMENT SAFETY OFFICER Division of Cardiology, [facility]- [phone] Pager- [phone] Email- [email or web address] 10-13-2022 Note OPERATIVE NOTE OPERATION DATE: [...] left cheek was prepped with Betadine. A Bradley tip Bovie was then used to make [...] the recovery room in good condition. [facility] 10-07-2022 Note EXAM: XR CHEST 2 V HISTORY: Pre-surgery evaluation COMPARISON: None. TECHNIQUE: PA and lateral views of the chest. FINDINGS: The cardiomediastinal silhouette is normal. No focal consolidation is identified. There is no pneumothorax. No pleural effusion is noted. The osseous structures are intact. IMPRESSION: No acute cardiopulmonary process. Electronically authenticated by: JOSIAH WILKS Date: 2022-10-07 11:27 [facility] 07-23-2022 Note CONSULTATION CONSULTATION DATE: [...] Patient does agree with this plan. [facility] 06-11-2022 Note CONSULTATION CONSULTATION DATE: [...] q.h.s. Activities that aggravate her pain are arborer and evening hours, housework, twisting the head [...] re-evaluation and to review her x-rays. [facility] 05-18-2022 Miscellaneous Notes Patient's request for medication is as follows: Requested Prescriptions Signed Prescriptions Disp Refills celecoxib (CELEBREX) 200 mg capsule 180 capsule 3 Sig: Take 1 capsule by mouth twice daily. Prescription(s) as above. Please process accordingly. Gayle Washington MD Jett message sent to patient reminding her to [...] Lab Orders Expected Expires Ordered HLA-B27 PCR [[id number]] 06/19/21 06/18/22 06/18/21 Auth. provider: Gayle Washington MD Assoc. diagnoses: Elevated sedimentation rate VITAMIN D 25 HYDROXY [SQVITD] 03/19/22 12/17/22 12/17/21 Auth. provider: Gayle Washington MD Assoc. diagnoses: Vitamin D deficiency documented in this encounter [facility] 04-16-2022 Note CONSULTATION PROCEDURE DATE: 04/16/2022 [...] the clinic in three months' time. [facility] 04-09-2022 Note CONSULTATION CONSULTATION DATE: [...] to the clinic for her injection. [facility] 01-01-2022 Note CONSULTATION CONSULTATION DATE: 01/01/2022 This is a pleasant 51-year-old female returning to the clinic status post #2 bilateral MBB on C3, C4 and C5 that afforded her 80% relief for 5 days. She was recently at her open soaper tender's and was diagnosed with fibromyalgia and she [...] be followed up in the clinic post-procedure. [facility] Signed and Approved by: BEN MONROE . 01/08/2022 10:22:00 [facility] 12-17-2021 Miscellaneous Notes Pt aware. [...] to My Chart if tests completed at [facility]: Mildly low vitamin D- increase over [...] superior labral tear; documented in this encounter [facility] 12-12-2021 Note HNO ID: [id number] Author: Gayle Washington MD Service: ? Author [...] R shoulder, L elbow, neck. Reports pain 5-10. L>R knees, L knee slightly better after L knee scope/cleaned out. L elbow locks up. minimal AM stiffness. Fell 3times since last office visit, flat ground knees give out. COVID vaccine Duolingo 06/26/21. Feels safe at home. Has enough [...] see ortho/pain clinic for long term care phlebotomist pain recommendations/injections, prn acetaminophen, start prn heat/ice/otc arthritis creams, low impact weightbearing exercise as tolerated, avoid aggravating triggers,supportive care, start flexeril/notify office if not tolerated, improved with mobic, see ortho/pain clinic for long term care phlebotomist pain recommendations/injections, prn acetaminophen, start prn heat/ice/otc arthritis creams, low impact weightbearing exercise as tolerated, avoid aggravating triggers, June 04, 2021 SUBJECTIVE Ms. Garica is a 51 year old female who [...] yes Dactylitis: no H/o precedent/frequent infection(s): no Enthesopathy/Etowah's/heel/plant ar tenderness: as above Skin thickening, psoriasis, photosensitivity, purpura: no Nail changes: ridges/ripples Alpecia, patchy: no Eye inflammation: glasses, R retinal hole SICCA: dry eyes Oral/nasal/genital ulcers: no GI problems-diarrhea/bleeding/IBD/Gl uten intolerence/Dysphagia: gerd Raynaud's phenomenon/digital ulcers: no Organ inv-Serositis: no Lung disease/ILD: no Myopathy/proximal muscle weakness: no Abnormal Urine or urethritis: no Renal/liver disease: no BILLING ADJUDICATOR/PNS/sz/cva/cancer disease: no HEME-Cytopenias/LAD/Clots: no Fevers: no Fatigue: [...] MEDICAL HISTORY: PMH (more content not included)... [facility] 12-12-2021 History of Present illness Narrative Face to face follow up for joint pain/ osteoarthritis/ chronic pain syndrome Today's visit 12/12/21:taking mobic no longer working. Wants to retry celebrex. Occasionally takes flexeril, completed vitamin D script. Taking daily vitamin D 2000 International Units daily with food. Chronic current pain in L>R knees, R shoulder, L elbow, neck. Reports pain 5-10. L>R knees, L knee slightly better after L knee scope/cleaned out. L elbow locks up. minimal AM stiffness. Fell 3times since last office visit, flat ground knees give out. COVID vaccine Duolingo 06/26/21. Feels safe at home. Has enough [...] see ortho/pain clinic for long term care phlebotomist pain recommendations/injections, prn acetaminophen, start prn heat/ice/otc arthritis creams, low impact weightbearing exercise as tolerated, avoid aggravating triggers,supportive care, start flexeril/notify office if not tolerated, improved with mobic, see ortho/pain clinic for long term care phlebotomist pain recommendations/injections, prn acetaminophen, start prn heat/ice/otc [...] yes Dactylitis: no H/o precedent/frequent infection(s): no Enthesopathy/Etowah's/heel/plant ar tenderness: as above Skin thickening, psoriasis, photosensitivity, purpura: no Nail changes: ridges/ripples Alpecia, patchy: no Eye inflammation: glasses, R retinal hole SICCA: dry eyes Oral/nasal/genital ulcers: no GI problems-diarrhea/bleeding/IBD/Gl uten intolerence/Dysphagia: gerd Raynaud's phenomenon/digital ulcers: no Organ inv-Serositis: no Lung disease/ILD: no Myopathy/proximal muscle weakness: no Abnormal Urine or urethritis: no Renal/liver disease: no BILLING ADJUDICATOR/PNS/sz/cva/cancer disease: no HEME-Cytopenias/LAD/Clots: no Fevers: no Fatigue: [...] tear with bone spur/there still a screw 2020 S/p neck surgery, removed plate for C6-C7 [...] calcifications or tophi. No SI tenderness, no tian's tenderness, no heel/plantar tenderness, lumbar flexion full, [...] tear with bone spur/there still a screw 2020 S/p neck surgery, removed plate for C6-C7 [...] tear with bone spur/there still a screw 2020 S/p neck surgery, removed plate for C6-C7 [...] R shoulder, L elbow, neck. Reports pain 5-10. L>R knees, L knee slightly better after L knee scope/cleaned out. L elbow locks up. minimal AM stiffness. Fell 3times since last office visit, flat ground knees give out. COVID vaccine Duolingo 06/26/21. Feels safe at home. Has enough food, supplies and medications. Overall uncomfortable but happy with rheum care. = supportive care, start celebrex/notify office if not tolerated, OFF mobic/initially improved with medication but now effect wore off, prn flexeril, see pain clinic for half-way pain recommendations, see ortho/pain clinic for half-way pain recommendations/injections, prn acetaminophen, start prn heat/ice/otc [...] to side effects OFF lyrica no response half-way pain recommendations per primary care provider/pain clinic [...] video & audio (virtual) or phone or [id number]-cxwa patient care, completing clinical documentation, obtaining and/or [...] letter/electronic shared medical records. cc Dr.Renee Leora Gibbnos DO documented in this encounter [facility] 12-12-2021 Instructions Gayle Washington MD - [...] to side effects OFF lyrica no response half-way pain recommendations per primary care provider/pain clinic nonfasting labs as scheduled Thank you. documented in this encounter [facility] 12-09-2021 Miscellaneous Notes Patient has been scheduled as requested for 12/12/21. Referral has been attached. I spoke with Ms. Garcia and she is aware of all of the appointment details. Nataliya Fernando PSS December 09, 2021 2:43 PM Patient calling to schedule follow up appt with Dr Washington no schedule pulling for [place] only [place]. Patient requesting call at [phone] Washington is still at [place]. Please advise. documented in this encounter [facility] 11-18-2021 Note PAIN MANAGEMENT CONS ULTATION CONSULTATION DATE: 11/18/2021 CHIEF COMPLAINT: Cervical pain. HISTORY OF PRESENT ILLNESS: This is a 51-year-old female who had, in the past, been seen by Dr. Brunner, Pain Management in [place], [place]. The patient had changed her insurances to [employer] and, as such, Dr. Brunner does not [...] like to proceed. CC: Kimberley Gibbons D.O. [facility] Signed and Approved by: DR RACHEL STOCK . 11/25/2021 12:22:00 [facility] 10-14-2021 Evaluation note Encounter Date Diagnosis Assessment [...] nerve block in the future if needed. [email or web address] Other 12-28-2021 Evaluation note* Encounter Date Diagnosis [...] right hip to further evaluate her pain. [email or web address] Other 12-15-2021 Evaluation note* Encounter Date Diagnosis [...] (ICD-10 - G89.29) Continue medications as prescribed [email or web address] Other 11-11-2021 Evaluation note* Encounter Date Diagnosis [...] (ICD-10 - G89.29) Continue medications as prescribed [email or web address] Other 09-29-2021 Evaluation note* Encounter Date Diagnosis [...] injection under ultrasound guidance in the future. [employer] Other Evaluation note* Diagnosis Secondary osteoarthritis of [...] Chronic pain syndrome documented in this encounter [facility]No InformationN[facility]Jeff[facility] [employer] Other Evaluation note* Diagnosis Secondary osteoarthritis of multiple sites- Primary Osteoarthrosis involving, or with mention of more than one site, but not specified as generalized, multiple sites Vitamin D deficiency Unspecified vitamin D deficiency Fibromyalgia Mylagia and myositis, unspecified documented in this encounter [facility] note* Diagnosis Secondary osteoarthritis of multiple sites Osteoarthrosis involving, or with mention of more than one site, but not specified as generalized, multiple sites documented in this encounter [facility] note* Diagnosis Chronic hip pain, bilateral Chronic left shoulder pain Pain in joint, shoulder region Chronic pain of both knees Bilateral hand pain Pain in limb [facility]* Diagnosis Secondary osteoarthritis of multiple sites Osteoarthrosis involving, or with mention of more than one site, but not specified as generalized, multiple sites Cervicalgia Chronic bilateral low back pain with bilateral sciatica documented in this encounter [facility] note* Diagnosis Flatulence, eructation and gas pain Flatulence, eructation, and gas pain Chronic GERD documented in this encounter [facility] general Narrative - Reported* Type Description Date Medical History allergies Medical History factor 5 blood disorder Medical History anxiety Medical History depression Medical History bipolar Medical History lumbar DDD Surgical History back surgery 06/2021 Surgical History neck surgery 05/2021 Hospitalization History see above [email or web address] Other History general Narrative - Reported* Type Description Date Medical History allergies Medical History factor 5 blood disorder Medical History anxiety Medical History depression Medical History bipolar Medical History lumbar DDD Medical History osteoarthritis of multiple joint s Surgical History back surgery 06/2021 Surgical History neck surgery 05/2021 Hospitalization History see above [email or web address] Other History of Present illness NarrativePatient has continued intermittent pain symptoms in her right shoulder she is remotely status post rotator cuff repair she had a follow-up MRI scan recently she would like to review with me today. She had a subacromial injection but it did not resolve all of her symptoms.[id number] Work Phone: Reason for referral (narrative)* Diagnostic Procedure Only (Routine) - Closed Specialty Diagnoses / Procedures Referred By Margarita vanegas Referred To Contact XR IMAGING Diagnoses Bilateral hand pain Procedures XR HAND GENERAL 3V PA/LAT/OBL BILATERAL X-RAY HAND MINIMUM 3 VIEWS Gayle Washington MD [address] [place] [address] Xr Imaging Referral ID Status Reason Start Date Expiration Date V isits Requested Visits Authorized [id number] Closed Auto-Generate d Referral 06/04/2021 07/04/2022 1 1 * Diagnostic Procedure Only (Routine) - Closed Specialty Diagnoses / Procedures Referred By Contac t Referred To Contact XR IMAGING Diagnoses Chronic pain of both knees Procedures XR KNEE GENERAL 4V AP BOTH/PA BOTH/LAT/MERC BILATERAL KNEE AP-WGT/LAT/MERCHANT Gayle Washington MD [address] [place] [address] Xr Imaging Referral ID Status Reason Start Date Expiration Date V isits Requested Visits Authorized [id number] Closed Auto-Generate d Referral 06/04/2021 07/04/2022 1 1 * Diagnostic Procedure Only (Routine) - Closed Specialty Diagnoses / Procedures Referred By Contac t Referred To Contact XR IMAGING Diagnoses Chronic left shoulder pain Procedures XR SHOULDER GENERAL 3V OR MORE AP/TRUE AP/OTHER LEFT X-RAY SHOULDER COMPLET MIN 2 VIEWS Gayle Washington MD [address] [place] [address] Xr Imaging Referral ID Status Reason Start Date Expiration Date V isits Requested Visits Authorized [id number] Closed Auto-Generate d Referral 06/04/2021 07/04/2022 1 1 * Diagnostic Procedure Only (Routine) - Closed Specialty Diagnoses / Procedures Referred By Contac t Referred To Contact XR IMAGING Diagnoses Chronic hip pain, bilateral Procedures XR HIP BILATERAL 5V PEL/AP/LAT EACH HIP RADEX HIPS BILATERAL WITH PELVIS MINIMUM 5 VIEWS Gayle Washington MD [address] [place] [address] Xr Imaging Referral ID Status Reason Start Date Expiration Date V isits Requested Visits Authorized [id number] Closed Auto-Generate d Referral 06/04/2021 07/04/2022 1 1 [facility] for visit Narrative* Diagnostic Procedure Only (Routine) - Closed Specialty Diagnoses / Procedures Referred By Contac t Referred To Contact XR IMAGING Diagnoses Bilateral hand pain Procedures XR HAND GENERAL 3V PA/LAT/OBL BILATERAL X-RAY HAND MINIMUM 3 VIEWS aGyle Washington MD [address] [place] [address] Xr Imaging Referral ID Status Reason Start Date Expiration Date V isits Requested Visits Authorized [id number] Closed Auto-Generate d Referral 06/04/2021 07/04/2022 1 1 [facility] Summary Purpose Family History No Family [...] Referral Specialty Diagnoses / Procedures Referred By Contac t Referred To Contact Orthopedics Diagnoses Chronic pain of both knees Chronic right shoulder pain Elbow pain, left Procedures CONSULT TO ORTHOPAEDICS OFFICE/OUTPATIENT [facility] MDM 60-74 MINUTES Gayle Washington MD [address] [place] [address] Referral ID Status Reason Start Date Expiration Date Visits Requested Visits Authorized [id number] Pending Review PCP Requested Referral 12/12/2021 12/12/2022 1 1 Additional Source Comments INFORMATION SOURCE (unrecogn ized section and content) DATE CREATED AUTHOR 06/20/2020 [facility] [place] DATE CREATED AUTHOR AUTHOR'S ORGANIZ ATION [facility]/2020 [facility] [place] DATE CREATED AUTHOR AUTHOR'S ORGANIZ ATION 12/01/2020 [employer] DATE CREATED AUTHOR AUTHOR'S ORGANIZ ATION 02/23/2021 [facility] DATE CREATED AUTHOR AUTHOR'S ORGANIZ ATION 02/23/2021 [employer] DATE CREATED AUTHOR AUTHOR'S ORGANIZ ATION 12/26/2021 [facility] DATE CREATED AUTHOR AUTHOR'S ORGANIZ ATION 07/02/2022 [facility] dical Specialist DATE CREATED AUTHOR AUTHOR'S ORGANIZ ATION 10/08/2022 [facility] DATE CREATED AUTHOR AUTHOR'S ORGANIZ ATION 10/20/2022 [facility] DATE CREATED AUTHOR AUTHOR'S ORGANIZ ATION 09/14/2023 [facility] DATE CREATED AUTHOR AUTHOR'S ORGANIZ ATION 10/28/2023 [facility] DATE CREATED AUTHOR AUTHOR'S ORGANIZ ATION 10/30/2023 [facility] DATE CREATED AUTHOR AUTHOR'S ORGANIZ ATION 12/03/2023 [facility] Source Comments (unrecognize d section and content) In the event this informatio n is protected by the Federal Confidentiality of Alcohol and Drug Abuse Patient Records regulations: The Federal rules restrict any use of the information to criminally investigate or prosecute any alcohol or drug abuse patient.[facility] Hospital[facility] the event this information is protected by the Federal Confidentiality of Alcohol and Drug Abuse Patient Records regulations: The Federal rules restrict any use of the information to criminally investigate or prosecute any alcohol or drug abuse patient.[facility] HospitalIn the event this information is protected by the Federal Confidentiality of Alcohol and Drug Abuse Patient Records regulations: The Federal rules restrict any use of the information to criminally investigate or prosecute any alcohol or drug abuse patient.[facility] HospitalIn the event this information is protected by the Federal Confidentiality of Alcohol and Drug Abuse Patient Records regulations: The Federal rules restrict any use of the information to criminally investigate or prosecute any alcohol or drug abuse patient.[facility] HospitalIn the event this information is protected by the Federal Confidentiality of Alcohol and Drug Abuse Patient Records regulations: The Federal rules restrict any use of the information to criminally investigate or prosecute any alcohol or drug abuse patient.[facility] HospitalIn the event this information is protected by the Federal Confidentiality of Alcohol and Drug Abuse Patient Records regulations: The Federal rules restrict any use of the information to criminally investigate or prosecute any alcohol or drug abuse patient.[facility] Reason for Visit (unrecogniz ed section and content) Reason Comments Follow Up Pain ongoing generalized pain. Specialty Diagnoses / Procedures Referred By Contnelida t Referred To Contact RHEUMATOLOGY Diagnoses Follow Up Procedures OFFICE/OUTPATIENT ESTABLISHED MOD MDM 30-39 MIN Follow Up Gayle Washington MD [address] [facility] [place] [address] [facility] [address] [facility] [place] [address] Referral ID Status Reason Start Date Expiration Date Visits Requested Visits Authorized [id number] Waiting for Response OON/Self Pay Override Patient cleared - OON Required Payment Collected 12/08/2021 03/08/2022 1 1 Reason Comments Appointment Reason Comments Results Care Teams (unrecognized sec tion and content) Brimmer Blocker Relationship Specialty Start Date End Date Kimberley Gibbons, DO [address] [place] [address] PCP - General Family Practice 06/04/21 Brimmer Blocker Relationship Specialty Start Date End Date Kimberley Gibbons, DO [address] [facility] [address] PCP - General Family Practice 06/04/21 Brimmer Blocker Relationship Specialty Start Date End Date Kimberley Gibbons, DO [address] [facility] [place] [address] PCP - General Family Medicine 06/04/21 Brimmer Blocker Relationship Specialty Start Date End Date Kimberley Gibbons, DO [address] [facility] [place] [address] PCP - General Family Medicine 06/04/21 Brimmer Blocker Relationship Specialty Start Date End Date Kimberley Gibbons DO [address] [facility] [place] [address] PCP - General Family Medicine 06/04/21 Brimmer Blocker Relationship Specialty Start Date End Date Kimberley Gibbons, DO [address] [facility] [place] [address] PCP - General Family Medicine 06/04/21 FOR [...] BE BASED ON THE PRIMARY CLINICAL RECORDS. [facility] TATE'S LIST [facility]. provides no warranty or guarantee of the accuracy or completeness of information in this document.
== END 2023-12-22 14:47 | disposition home or self-care (01) ==
LOC: PM 14:47
PROVIDERS: Visit Provider Nurse Practitioner
DX: M47.812 Spondylosis without myelopathy or radiculopathy, cervical region (principal); M46.1 Sacroiliitis, not elsewhere classified; M96.1 Postlaminectomy syndrome, not elsewhere classified; G89.4 Chronic pain syndrome; Z51.81 Encounter for therapeutic drug level monitoring; Z79.891 Long term (current) use of opiate analgesic; M48.062 Spinal stenosis, lumbar region with neurogenic claudication
CPT/HCPCS: G0463

== ENCOUNTER 2024-01-11 07:31 | Outpatient (RCR) | payer OTHER, SELFPAY | END 2024-01-13 15:36 | disposition home or self-care (01) | LOC: HEMC 07:31 | PROVIDERS: Visit Provider Internal Medicine Hematology & Oncology | DX: D68.69 Other thrombophilia (principal); D68.62 Lupus anticoagulant syndrome; F17.210 Nicotine dependence, cigarettes, uncomplicated; R00.0 Tachycardia, unspecified | CPT/HCPCS: G0463 ==

== ENCOUNTER 2024-01-12 10:38 | Outpatient (OUT) | payer OTHER, SELFPAY ==
--- NOTE | 2024-01-12 11:02 | P.CN_ITS ---
Consult Note: HPI Data of Consult Patient: known to practice within the last 3 years Requesting Physician: Stephanie Mike NP Primary Care Provider: Non-Staff Physician, MD Consult Narrative Reason for consult: chronic right low back pain Narrative: Lizbeth Garcia a pleasant 53 year old female presents for evaluation of chronic pain. Patient has a hx of cervical RFAs with Dr Thornton and tailbone RFAs with Dr Caballero. Lumbar spine surgery with lumbosacral fusion per pt L5-Sacral. Patient reporting pain today 5/10 sharp throbbing stab pain in right low back, hip, and right leg. Pain increased with standing/walking, housework, bending, stairs, activity, pain decreased with sitting and lying. Patient finds mild benefit from ibuprofen, celebrex. Patient failed PT in the past, active in HEP >6 weeks without benefit. Denies loss of bowel/bladder. Recent xray imaging of umbar spine consistent with degenerative changes, SIJ no abnormal findings. Worsening numbness tingling and weakness of RLE. cc:: CC: Stephanie Mike NP Review of Systems ROS Status of ROS 10 or more systems reviewed and unremark able except as noted in history and below Musculoskeletal Reports: back pain and joint pain PFSH PFSH Medical History Former cigarette smoker ?Z87.891 - Personal history of nicotine dependence (ICD-10) Heartburn ?R12 - Heartburn (ICD-10) Acid reflux ?K21.9 - Gastro-esophageal reflux disease without esophagitis (ICD-10) Osteoarthritis ?M19.90 - Unspecified osteoarthritis, unspecified site (ICD-10) Low back pain ?M54.50 - Low back pain, unspecified (ICD-10) Factor 5 Leiden mutation, heterozygous ?D68.51 - Activated protein C resistance (ICD-10) Anxiety ?F41.9 - Anxiety disorder, unspecified (ICD-10) Obesity ?E66.9 - Obesity, unspecified (ICD-10) Diabetes ?E11.9 - Type 2 diabetes mellitus without complications (ICD-10) SOB (shortness of breath) ?R06.02 - Shortness of breath (ICD-10) High cholesterol ?E78.00 - Pure hypercholesterolemia, unspecified (ICD-10) Hypertension ?I10 - Essential (primary) hypertension (ICD-10) Irregular heart beat ?I49.9 - Cardiac arrhythmia, unspecified (ICD-10) Angina at rest ?I20.89 - Other forms of angina pectoris (ICD-10) Surgical History H/O arthroscopic knee surgery ?Z98.890 - Other specified postprocedural states (ICD-10) H/O lumbosacral spine surgery ?Z98.890 - Other specified postprocedural states (ICD-10) H/O cervical spine surgery ?Z98.890 - Other specified postprocedural states (ICD-10) H/O arthroscopy of shoulder ?Z98.890 - Other specified postprocedural states (ICD-10) H/O carpal tunnel repair ?Z98.890 - Other specified postprocedural states (ICD-10) H/O: hysterectomy ?Z90.710 - Acquired absence of both cervix and uterus (ICD-10) Meds Home Medications and Allergies Home Medications ?Medication ?Instructions ?Recorded ?Confirmed ?Type B-complex with vitamin C 1 tab PO DAILY 08/26/23 10/25/23 History acetaminophen 500 mg tablet 1,500 mg PO DAILY PRN pain 08/26/23 10/25/23 History (Tylenol Extra Strength) amlodipine 5 mg tablet 5 mg PO DAILY 08/26/23 10/25/23 History aspirin 81 mg capsule 81 mg PO DAILY 08/26/23 10/25/23 History atorvastatin 80 mg tablet 80 mg PO DAILY 08/26/23 10/25/23 History celecoxib 400 mg capsule (Celebrex) 400 mg PO BID 08/26/23 10/25/23 History cholecalciferol (vitamin D3) 50 50 mcg PO DAILY 08/26/23 10/25/23 History mcg (2,000 unit) capsule clonazepam 0.5 mg tablet 0.5 mg PO BID 08/26/23 10/25/23 History cyclobenzaprine 10 mg tablet 10 mg PO BID 08/26/23 10/25/23 History desvenlafaxine succinate 100 mg 100 mg PO DAILY 08/26/23 10/25/23 History tablet,extended release 24 hr (Pristiq) ezetimibe 10 mg tablet 10 mg PO DAILY 08/26/23 10/25/23 History lamotrigine 300 mg tablet,extended 300 mg PO DAILY 08/26/23 10/25/23 History release 24 hr magnesium glycinate PO 08/26/23 History metoprolol succinate 25 mg 25 mg PO DAILY 08/26/23 10/25/23 History tablet,extended release 24 hr quetiapine 200 mg tablet 200 mg PO DAILY 08/26/23 10/25/23 History Allergies Allergy/AdvReac Type Severity Reaction Status Date / Time ibuprofen AdvReac Mild Verified 10/25/23 08:09 tramadol AdvReac Mild Verified 10/25/23 08:09 Exam Constitutional Documenting provider has reviewed patient's vital signs: yes Common normals: no apparent distress, oriented x3, healthy appearing, alert and well nourished General appearance: cooperative HENMT Common normals: normocephalic, hearing grossly normal bilaterally and moist oral mucous membranes Head and scalp: normocephalic Eye Common normals: PERRL Pupil: PERRL Neck & C-Spine Common normals: full ROM General: normal visual inspection Chest Common normals: inspection of chest normal Respiratory Common normals: normal respiratory effort, no retractions and no use of accessory muscles Back & Pelvis Lumbar spine/lower back: ROM limited, pain with ROM, lumbar spinal tenderness, paraspinal muscle tenderness and straight leg raise positive right Sacroiliac joints: SI joint(s) abnormal Other: right positive pete(patricks), gaenslens, thigh thrust, compression test decreased sensation to right L4,5,S1 pattern strength 4/5 in RLE, 5/5 in LLE Extremity Common normals: normal to inspection and full ROM Neuro Common normals: oriented x3, CN's II-XII intact bilaterally, moves all extremities, no focal motor deficits, no sensory deficits noted and deep tendon reflexes 2+ bilaterally Sensorium/orientation: alert Motor exam: no movement abnormalities noted and strength abnormal Psych Common normals: mental status grossly normal, thought process normal, cooperative, affect normal, speech normal and activity/motor behavior normal Speech: normal speech Thought process: normal thought process Assessment and Plan Assessment and Plan (1) Failed back syndrome: (2) Lumbar stenosis with neurogenic claudication: (3) Sacroiliitis: Plan update lumbar MRI with and without contrast for chronic low back pain, failed back syndrome, lumbar stenosis with NC failure to respond to greater than 6 weeks HEP/PT, NSAIDs, tylenol, heat/ice. f/u after MRI complete to discuss interventional options
== END 2024-01-12 10:39 | disposition home or self-care (01) ==
LOC: PM 10:38
PROVIDERS: Visit Provider Nurse Practitioner
DX: M48.062 Spinal stenosis, lumbar region with neurogenic claudication (principal); M46.1 Sacroiliitis, not elsewhere classified; M96.1 Postlaminectomy syndrome, not elsewhere classified
CPT/HCPCS: G0463

== ENCOUNTER 2024-01-19 09:27 | Outpatient (OUT) | payer OTHER, SELFPAY ==
--- NOTE | 2024-01-19 09:30 | CT_ITS ---
[address] [address] Patient Name: LEXI LEWIS MRN: [id number] date: 1970 Sex: F Assigned Patient Location: CT Current Patient Location: CT Accession/Order Number: [id number] Exam Date: 01/19/2024 09:35 Report Date: 01/19/2024 14:46 At the request of: KATLYN TOLBERT Procedure: CT lung screening low-dose EXAMINATION: CT lung screening low-dose HISTORY: Smoking History COMPARISON: CTA chest 12/21/2022 TECHNIQUE: Axial, Coronal, and Sagittal images were created without the administration of IV contrast material. Dose reduction techniques were achieved by using automated exposure control and/or adjustment of mA and/or kV according to patient size and/or use of iterative reconstruction technique. FINDINGS: LUNGS: No visible pulmonary disease. PLEURA: No mass, effusion, or pneumothorax. VASCULATURE: No abnormality. TAVO: No mass or pathologic adenopathy. MEDIASTINUM: No mass or pathologic adenopathy. CARDIAC: No enlargement, pericardial thickening, or pericardial effusion. Coronary Artery calcifications: AORTA: No aneurysm or dissection. CHEST WALL: No mass or axillary adenopathy BONES: No bone lesion or fracture. LIMITED ABDOMEN: No suspicious findings. Limited images of the upper abdomen. OTHER: Negative. CT/CT lung screening low-dose IMPRESSION: 1. Lung-RADS Category 1 Negative. No nodules and definitely benign nodules. Continue annual screening with LDCT in 12 months. Electronically authenticated by: KHUSHBU CID Date: 01/19/2024 14:46
== END 2024-01-19 09:28 | disposition home or self-care (01) ==
LOC: CT 09:27
PROVIDERS: Visit Provider Internal Medicine Hematology & Oncology
DX: D68.69 Other thrombophilia (principal); F17.210 Nicotine dependence, cigarettes, uncomplicated; D68.62 Lupus anticoagulant syndrome
CPT/HCPCS: 71271

== ENCOUNTER 2024-01-24 06:49 | Day surgery (SDC) | payer OTHER, SELFPAY ==
--- OUTSIDE RECORDS SUMMARY | 2024-01-24 06:52 | XMS_ITS | CCD ---
Author Organization [facility] Care Team Providers Care Race Car Driver Name Role Phone ZAIRE, CRISTOBAL F Primary [...] Care Unavailable FELICIA, FEMI H. Referring Unavailable Percival, Cristobal F Unavailable Edwige DO, Kimberley Leora [...] DAYAMI ., DR RACHEL Layne Admitting Unavailable OMNROE ., BEN Consulting Unavailable FER .BEN Consulting Unavailable MISC, [...] Primary Care Provider Unavailable Primary Care Provider UnavailKIMBERLEY Ashley Attending Unavailable FRANKLIN AYA Referring Unavailable CLIFFORD VANN Attending Unavailab IZABEL Steiner Attending Unavailable KIMBERLEY GIBBONS Attending Unavailable SOLITARIO GARCÍA Attending Unavailable TIM SAMUELS Attending Unavailable ELODIA OSCAR Attending Unavailable ALGHOTHANI, MOHAMAD Admitting Unavailable ALGHODALE GRANT Attending Unavailable ALGHOTHANI, MOHAMAD Referring Unavailable SOLITARIO GARCÍA Attending Unavailable SOLITARIO GARCÍA Attending Unavailable Yury ARGUELLO, Rosibel Laurent Attending Unavailable Yury ARGUELLO, Rosibel Laurent Attending Unavailable Yury ARGUELLO, Rosibel Laurent Attending Unavailable NICOLE TLELES Referring Unavailable NICOLE TELLES Referring Unavailable NICOLE TELLES Referring Unavailable Allergies Allergy Classification Reported Allergen(s) Allergy Type Date of Onset Reaction(s) Facility NSAIDs (1 source) Ibuprofen; 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: [IBUPROFEN] Drug Allergy 0 [facility] Repository Opioid Agonists (1 source) traMADol; 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: [TRAMADOL] Drug Allergy 9 [facility] Repository (8 sources) Ibuprofen; 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: [IBUPROFEN] Drug Allergy 0 Unknown, Diarrhea [facility] (20 sources) traMADol; 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: [TRAMADOL] Drug Allergy 9 Unknown, Nausea Only [facility] (1 source) Ibuprofen Drug Allergy [facility] (1 source) traMADol Drug Allergy 2 [facility] Medications Current Medications Medication Drug [...] twice daily. Take 1 capsule by mo [facility] two times a day. clonazePAM 0.5 [...] 0 Active take 1 tablet by bautista every twenty-four hours Pristiq 100 MG 1 [...] tablet by mouth 0 12/01/2022 12/01/2023 Active [place]-3 Fatty Acids (FISH OIL) 1200 MG CAPS (1 source) [place]-3 Fatty Ac ids (FISH OIL) 1200 MG [...] Take 0.5 mg by mouth once daily. ypocq-rl-2-beo-gag-ksey joey-ast 1,208-497-17-80 mg cap (4 sources) tlous-ar-1-dha-e pa-joey spho-ast 1,750-991-20-80 mg cap Take by mouth. 0 Active [...] (13 sources) Nonsteroidal Anti-inflammatory Drug Start: 06-06-20 End: 12-13-19 22 take 1 tablet by [...] above: Take 1 capsule by mo ut once daily. Problems Active Problems Problem Classification [...] [Mixed hyperlipidemia] Onset: 12-01-2022 Chronic Esophageal disorders (4 sources) Gastro-esophageal reflux disease without esophagitis; 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: [GERD WITHOUT ESOPHAGITIS] Onset: 10-19-2022 Chronic Essential hypertension (2 sources) Essential (primary) hypertension; 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: [Essential (primary) hypertension] Onset: 01-13-2023 Chronic Nutritional deficiencies (8 sources) Vitamin D deficiency; 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: [Vitamin D deficiency, unspecified] Onset: 12-12-2021 Chronic Osteoarthritis (11 sources) Degenerative joint disease involving multiple joints; 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] Onset: 06-05-2021 Chronic Other aftercare (1 source) 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; 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: [USP CURRNT USE ANTICOAGULANTS] Onset: 10-19-2022 Episodic Other aftercare (2 sources) MCFP (current) use of non-steroidal anti-inflammatories (NSAID); 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: [MCFP (current) use of non-steroidal anti-inflammatories (nsaid)] Onset: [...] gas pain; 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: [Flatulence] 09-13-2023 Episodic Other nervous system disorders (6 [...] Other Problems Problem Classification Problem Date Documented Da te Episodic/Chronic Nonspecific chest pain (2 sources) Other [...] Fibromyalgia; 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: [Fibromyalgia] Onset: 12-01-2022 Episodic Other gastrointestinal disorders (1 source) Flatulence; 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: [Flatulence] Onset: 09-13-2023 Episodic Other gastrointestinal disorders (1 source) Gas pain; 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: [Gas pain] Onset: 09-13-2023 Episodic Other gastrointestinal disorders (1 source) Eructation; 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: [Eructation] Onset: 09-13-2023 Episodic Other hematologic conditions (1 source) Elevated [...] Interpretation Reference Range Facility Abstracton 11-30-2023 Abstract [id number] Lexi Garcia 1970 Provider Department Center 11/30/2023 SVITLANA TORRES [facility] RHEUM Heri Heal Family History Problem Relation Age of Onset COPD Mother Coronary artery disease Father 56 Family Status - Relation Status Age at Mother Alive Father [facility] 36on 11-22-2023 36 Last visit: 10/26/23 Next visit: 01/25/24 CBC: 12/12/21 BMP: 01/21/23 [facility] Refillon 11-20-2023 Refill [id number] Lexi Garcia 1970 Provider Department Center 11/20/2023 SOLITARIO ADAMS [facility] RHEUM Heri Heal Family History Problem Relation Age of Onset COPD Mother Coronary artery disease Father 56 Family Status - Relation Status Age at Mother Alive Father Reason for Visit and Comments: Med Refill [[id number]] [facility] Office Visiton 11-02-2023 Follow-up visit [id number] Lexi Garcia 1970 Provider Department Center 11/02/2023 TIM CORONEL Family History Problem Relation Age of Onset COPD Mother Coronary artery disease Father 56 Family Status - Relation Status Age at Mother Alive Father Level of Service:19952 [place] OFFICE/OUTPATIENT ESTABLISHED MOD MDM 30 MIN Reason for Visit and Comments: Atrial Fibrillation [80] - symptoms Normal [facility] Follow-Upon 10-26-2023 Follow-Up [id number] Lexi Garcia 1970 F Date Provider Department Center 10/26/2023 SOLITARIO ADAMS C RHEUM Heri Heal Family History Problem Relation Age of Onset COPD Mother Coronary artery disease Father 56 Family Status - Relation Status Age at Mother Alive Father Level of Service:07202 [place] OFFICE/OUTPATIENT ESTABLISHED LOW MDM 20 MIN (GC) Reason for Visit and Comments: Follow-up [[id number]] Normal [facility] Celiac Disease Panelon 09-13 Gliadin Deam Pep IgA 1.9 U/mL Normal <7.0 [facility] Comment on above: Result Comment: CELIAC INTERPRETATION <7.0 Negative 7.0-10.0 Equivocal >10.0 Positive units: U/mL Performed By: #### C ELP #### [place] [address] Roller Skater: Talib Clements MD Gliadin Deam Pep IgG <0.4 Normal <7.[address] [place] [address] Comment on above: Result Comment: CELIAC INTERPRETATION <7.0 Negative 7.0-10.0 Equivocal >10.0 Positive units: U/mL Performed By: #### C ELP #### [place] [id number] Roller Skater: Talib Clements MD Tiss Transglutam IgA 0.4 U/mL Normal <7.[address] [place] [address] Comment on above: Result Comment: CELIAC INTERPRETATION <7.0 Negative 7.0-10.0 Equivocal >10.0 Positive units: U/mL Performed By: #### C ELP #### [place] [address] Roller Skater: Talib Clements MD IgA [Mass/Vol] 184 mg/dL Normal 70-400 [facility] Comment on above: Performed By: #### C ELP #### [address] [place] [address] Roller Skater: Talib Clements MD H. pylori Antigenon 09-14-19 24 H. pylori Antigen Specimen Description .FECES Direct Exam NEGATIVE Report Status FINAL 09/14/2023 [facility] Comment on above: Performed By: #### F HPY #### [facility] [employer] [address] [place] [address] Roller Skater: Talib Clements MD [facility] [address] [place] [address] Roller Skater: David Hough MD Orders Onlyon 08-05-2023 Orders Only [id number] Lexi Garcia 1970 F Date Provider Department Center 08/05/2023 SHANON HSIEH Family History Problem Relation Age of Onset COPD Mother Coronary artery disease Father 56 Family Status - Relation Status Age at Mother Alive Father Normal [facility] Follow-Upon 06-22-2023 Follow-Up [id number] Lexi Garcia 1970 Provider Department Center 06/22/2023 SOLITARIO ADAMS [facility] RHEUM Heri Heal Family History Problem Relation Age of Onset COPD Mother Coronary artery disease Father 56 Family Status - Relation Status Age at Mother Alive Father Level of Service:27921 [place] OFFICE/OUTPATIENT ESTABLISHED MOD MDM 30 MIN () Reason for Visit and Comments: Follow-up [[id number]] - Normal [facility] DEXA BONE DENSITYon 05-11-20 23 DEXA BONE [...] Not Available Office Visiton 04-27-2023 Follow-up visit [id number] Lexi Garcia 1970 Provider Department Center 04/27/2023 SOLITARIO ADAMS [facility] RHEUM Heri Heal Family History Problem Relation Age of Onset COPD Mother Coronary artery disease Father 56 Family Status - Relation Status Age at Mother Alive Father Level of Service:79496 [place] OFFICE/OUTPATIENT NEW MODERATE MDM 45-59 MINUTES (GC) Reason for Visit and Comments: New 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 I let her know I sent a new mychart code so she can establish mychart and view her visit information there Normal [facility] Office Visiton 02-10-2023 Follow-up visit [id number] Lexi Garcia 1970 Date Provider Department Center 02/10/2023 ELODIA ZAFAR ALYSA Lorenzana Family History Problem Relation Age of Onset COPD Mother Coronary artery disease Father 56 Family Status - Relation Status Age at Mother Alive Father Level of Service:12909 [place] OFFICE/OUTPATIENT ESTABLISHED MOD MDM 30 MIN Reason for Visit and Comments: Follow-up [[id number]] - Pt is here for f/u heart cath [facility] HPon 01-25-2023 -- Attestation signed by [...] Will be undergoing LHC to evaluate coronaries. [facility] Miguel 01-25-2023 JOSEPIHNE RN educated pt on d/ c instructions. RN encouraged pt to voice any questions or concerns. Pt verbalizes no questions or concerns at this time. Pt was wheeled off of unit with all of belongings. [facility] JOSEPHINE Pozo made awar e of Ibuprophen allergy. States to give Aspirin 325mg oral today. Patient tolerates her 81mg Aspirin at home. Normal [facility] HPon 01-13-2023 HP Reviewed Echocardiogram- 12/21/22 [...] symptoms. Mixed hyperlipidemia Continue statin Elodia Oscar BLOGS MANAGER Division of Cardiology, [facility]- [phone] Pager- [phone] Email- [email or web address] Normal [facility] Orders Onlyon 01-13-2023 Orders Only [id number] Lexi Garcia 1970 F Date Provider Department Center 01/13/2023 120-ELODIA OSCAR CARD [facility]. Family History Problem Relation Age of Onset COPD Mother Coronary artery disease Father 56 Family Status - Relation Status Age at Mother Alive Father Normal [facility] CBC AUTO DIFFon 10-07-2022 BASO # 0.0 103/ul Normal 0.0-0.1 [facility] Comment on above: Performed By: #### C BC #### [facility] [address] [address] [address] Donna Cantrell Basophils/100 WBC (Bld) 0.5 % Normal 0.2-2.0 [facility] Comment on above: Performed By: #### C BC #### [facility] [address] [address] [address] Donna Cantrell EO # 0.0 103/ul Normal 0.0-0.7 [facility] Comment on above: Performed By: #### C BC #### [facility] [address] [place] [address] Dr. Donna Cantrell Eosinophils/100 WBC (Bld) 0.0 % Critically low 0.9-7.0 [facility] Comment on above: Performed By: #### C BC #### [facility] [address] [place] [address] Dr. Donna Cantrell Erythrocyte distribution width (RBC) [Ratio] 13.6 % Normal 11.0-15.0 [facility] Comment on above: Performed By: #### C BC #### [facility] [address] [place] [address] Dr. Donna Cantrell Hematocrit (Bld) [Volume fraction] 42.0 % Normal 36.0-48.0 [facility] Comment on above: Performed By: #### C BC #### [facility] [address] [place] [address] Dr. Donna Cantrell Hemoglobin (Bld) [Mass/Vol] 14.4 g/dL Normal 12.0-16.0 [facility] Comment on above: Performed By: #### C BC #### [facility] [address] [place] [address] Dr. Donna Cantrell IG # 0.06 10e3/ul Critically high 0.00-0.03 [facility] Comment on above: Performed By: #### C BC #### [facility] [address] [place] [address] Dr. Donna Cantrell IG % 0.8 % Critically high 0.0-0.5 [facility] Comment on above: Performed By: #### C BC #### [facility] [address] [place] [address] Dr. Donna Cantrell LYMPH # 2.5 103/ul Normal 1.2-3.8 [facility] Comment on above: Performed By: #### C BC #### [facility] [address] [place] [address] Dr. Donna Cantrell Lymphocytes/100 WBC (Bld) 30.8 % Normal 20.5-60.0 [facility] Comment on above: Performed By: #### C BC #### [facility] [address] [place] [address] Dr. Donna Cantrell MANUAL DIFF REQ NO Normal [facility] Comment on above: Performed By: #### C BC #### [facility] [address] [place] [address] Dr. Donna Cantrell MCH (RBC) [Entitic mass] 30.3 pg Normal 26.7-34.0 [facility] Comment on above: Performed By: #### C BC #### [facility] [address] [place] [address] Dr. Donna Cantrell MCHC (RBC) [Mass/Vol] 34.3 g/dL Normal 29.9-35.2 [facility] Comment on above: Performed By: #### C BC #### [facility] [address] [place] [address] Dr. Donna Cantrell MCV (RBC) [Entitic vol] 88.2 fL Normal 81.0-99.0 [facility] Comment on above: Performed By: #### C BC #### [facility] [address] [place] [address] Dr. Donna Cantrell MONO # 0.5 103/ul Normal 0.3-0.8 [facility] Comment on above: Performed By: #### C BC #### [facility] [address] [place] [address] Dr. Donna Cantrell Monocytes/100 WBC (Bld) 6.4 % Normal 1.7-12.0 [facility] Comment on above: Performed By: #### C BC #### [facility] [address] [place] [address] Dr. Donna Cantrell NEUT # 4.9 103/ul Normal 1.4-6.5 [facility] Comment on above: Performed By: #### C BC #### [facility] [address] [place] [address] Dr. Donna Cantrell Neutrophils/100 WBC (Bld) 61.5 % Normal 43.0-75.0 [facility] Comment on above: Performed By: #### C BC #### [facility] [address] [address] [address] Donna Cantrell Platelet mean volume (Bld) [Entitic vol] 9.9 fL Normal 9.5-13.5 [facility] Comment on above: Performed By: #### C BC #### [facility] [address] [address] [address] Donna Cantrell PLT 234 103/ul Normal 150-450 [facility] Comment on above: Performed By: #### C BC #### [facility] [address] [address] [address] Donna Cantrell RBC 4.76 106/ul Normal 4.20-5.40 [facility] Comment on above: Performed By: #### C BC #### [facility] [address] [place] [address] Dr. Donna Cantrell WBC 8.0 103/ul Normal 4.0-11.0 [facility] Comment on above: Performed By: #### C BC #### [facility] [address] [place] [address] Dr. Donna Cantrell PROF CHEM 8 (BAS METB)on Anion gap [Moles/Vol] 13.9 mmol/L Normal [facility] Comment on above: Performed By: #### B MP #### [facility] [address] [place] [address] Dr. Donna Cantrell Calcium [Mass/Vol] 8.9 mg/dL Normal 8.5-10.1 [facility] Comment on above: Performed By: #### B MP #### [facility] [address] [place] [address] Dr. Donna Cantrell Chloride [Moles/Vol] 104 mmol/L Normal 98-107 [facility] Comment on above: Performed By: #### B MP #### [facility] [address] [place] [address] Dr. Donna Cantrell CO2 [Moles/Vol] 26.3 mmol/L Normal 21.0-32.0 [facility] Comment on above: Performed By: #### B MP #### [facility] [address] [address] [address] Donna Cantrell Creatinine [Mass/Vol] 0.91 mg/dL Normal 0.55-1.02 [facility] Comment on above: Performed By: #### B MP #### [facility] [address] [address] [address] Donna Cantrell EGFR-AF [place] >60 Normal >=60 [facility] Comment on above: Performed By: #### B MP #### [facility] [address] [address] [address] Donna Cantrell EGFR-NON AF [place] >60 Normal >=60 [facility] Comment on above: Performed By: #### B MP #### [facility] [address] [address] [address] Donna Cantrell Glucose [Mass/Vol] 127 mg/dL Critically high 74-106 T [facility] Comment on above: Performed By: #### B MP #### [facility] [address] [address] [address] Donna Cantrell Potassium [Moles/Vol] 4.2 mmol/L Normal 3.5-5.1 [facility] Comment on above: Performed By: #### B MP #### [facility] [address] [address] [address] Donna Cantrell Sodium [Moles/Vol] 140 mmol/L Normal 136-145 [facility] Comment on above: Performed By: #### B MP #### [facility] [address] [address] [address] Donna Cantrell Urea nitrogen [Mass/Vol] 15.0 mg/dL Normal 7.0-18.0 [facility] Comment on above: Performed By: #### B MP #### [facility] [address] [address] [address] Donna Cantrell Urea nitrogen/Creatinine [Mass ratio] 16.5 mg/mg Normal [facility] Comment on above: Performed By: #### B MP #### [facility] [address] [address] [address] Donna Cantrell PROTIMEon 10-07-2022 INR Coag (PPP) [Relative time] {INR} Normal [facility] Comment on above: Performed By: #### B LTM #### [facility] [address] [place] [address] Dr. Donna Cantrell INR GUIDELINES SEE BELOW Normal [facility] Comment on above: Result Comment: SHIRA RED INR: 2.0 - 3.0 CONDITIONS NOT LISTED BELOW 2.5 - 3.5 FOR PROSTHETIC HEART VALVE REPLACEMENT 2.5 - 3.5 RECURRENT THROMBOSIS Performed By: #### B LTM #### [facility] [address] [address] [address] Donna Cantrell PT Coag (PPP) [Time] 9.7 s Normal 9.0-11.6 [facility] Comment on above: Performed By: #### B LTM #### [facility] [address] [place] [address] Dr. Donna Cantrell PTTon 10-07-2022 aPTT Coag (Bld) [Time] 29.6 s Normal 22.3-36.2 [facility] Comment on above: Performed By: #### B LTM #### [facility] [address] [place] [address] Dr. Donna Cantrell SCREENING MAMMOGRAM W/AJ, BILATERAL*on [...] by Eder Barraza on 07/01/2022 1545 Normal [facility] Specialist XR Shoulder Complete Right*o n 12-28-2022 XR Shoulder Complete Right* FINDINGS: Comparison made with prior examination May 16, 2021. Similar post-surgical changes, narrowing of the distal clavicle, normal AC joint alignment. Mid cervical plate screw fusion hardware. No fracture. Normal glenohumeral joint space. IMPRESSION: 1. Post-surgical changes of the distal clavicle/AC joint 2. No fracture Report reported and signed by Eder Barraza on 07/02/2022 0746 Normal [facility] Assistant Produce Manager XR Spine Lumbar Complete w/F jama AND [place] 07-01-2022 XR Spine Lumbar Complete w/Flex AND [...] by Eder Barraza on 07/02/2022 0744 Normal [facility] Assistant Produce Manager CNPPearl 12-17-2021 CNPN Telephone (AMARJIT) LEXI GARCIA ([id number]) 1970 F Date Time Provider Department 12/17/21 GAYLE WASHINGTON During your visit today, we recorded the following information about you: Gayle Washington MD 12/17/2021 2:54 PM Signed Please Call patient if MyChart note not read to review results/released to My Chart if tests completed at [facility]: Mildly low vitamin D- increase over the [...] PO Daily January 07, 2021 7:15am - wqvkz-me-0-dha-epa-joey spho-ast 1,772-352-21-80 mg cap Take by mouth. - PNV [...] - Estradiol (more content not included)... Normal [facility] BLEEDING TIMEon 12-16-2021 BLEEDING TIME 7.0 min Normal 1.0-8.0 [facility] Comment on above: Result Comment: test done by Selam Almodovar Performed By: #### B LTM #### [facility] [address] [place] [address] Dr. Donna Cantrell 25(OH)D3 [facility]-ncon 2021 25-hydroxyvitamin D3 [Mass/Vol] 29.6 ng/mL Low 31.0-80.[address] [facility] Comment on above: Order Comment: Speci men Type: BLOOD SPECIMEN Ordering Facility: [facility] Address: [address] [place] [address] Result Comment: Clas sification of 25 [place] Vitamin D status: Deficiency/Insufficiency: < or = 30 ng/ml. Sufficiency/Optimal Levels: 31-80 ng/mL Toxicity: > 100 ng/mL. Test performed by chemiluminescent immunoassay. Performed By: #### 1 989-3 #### [facility] CLIA [id number] [address] [place] [address] [place] CBC panel Auto (Bld)on 12-12 Erythrocyte distribution width (RBC) [Ratio] 14.4 % Normal 11.5-15.[address] [facility] Comment on above: Order Comment: Speci men Type: BLOOD SPECIMEN Ordering Facility: [facility] Address: [address] [place] [address] Performed By: #### 5 8410-2 #### [facility] CLIA [id number] [address] [place] [address] [place] Hematocrit (Bld) [Volume fraction] 45.2 % Normal 36.0-46.[address] [facility] Comment on above: Order Comment: Speci men Type: BLOOD SPECIMEN Ordering Facility: [facility] Address: [address] [place], [place] [address] Performed By: #### 5 8410-2 #### [facility] CLIA [id number] [address] [place] [address] [place] Hemoglobin (Bld) [Mass/Vol] 14.8 g/dL Normal 11.5-15.[address] [facility] Comment on above: Order Comment: Speci men Type: BLOOD SPECIMEN Ordering Facility: [facility] Address: [address] [place] [address] Performed By: #### 5 8410-2 #### [facility] CLIA [id number] [address] [place] [address] [place] MCH (RBC) [Entitic mass] 29.7 pg Normal 26.0-34.[address] [facility] Comment on above: Order Comment: Speci men Type: BLOOD SPECIMEN Ordering Facility: [facility] Address: [address] [place], [place] [address] Performed By: #### 5 8410-2 #### [facility] CLIA [id number] [address] [place] [address] [place] MCHC (RBC) [Mass/Vol] 32.7 g/dL Normal 30.5-36.[address] [facility] Comment on above: Order Comment: Speci men Type: BLOOD SPECIMEN Ordering Facility: [facility] Address: [address] [place], [place] [address] Performed By: #### 5 8410-2 #### [facility] CLIA [id number] [address] [place] [address] [place] MCV (RBC) [Entitic vol] 90.8 fL Normal 80.0-100.[address] [facility] Comment on above: Order Comment: Speci men Type: BLOOD SPECIMEN Ordering Facility: [facility] Address: [address] [place], [place] [address] Performed By: #### 5 8410-2 #### [facility] CLIA [id number] [address] [place] [address] [place] Nucleated RBC (Bld) [#/Vol] 10*3/uL Normal <0.[address] [facility] Comment on above: Order Comment: Speci men Type: BLOOD SPECIMEN Ordering Facility: [facility] Address: [address] [place], [place] [address] Performed By: #### 5 8410-2 #### [facility] CLIA [id number] [address] [place] [address] [place] Platelet mean volume (Bld) [Entitic vol] 10.7 fL Normal 9.0-12.[address] [facility] Comment on above: Order Comment: Speci men Type: BLOOD SPECIMEN Ordering Facility: [facility] Address: [address] [place], [place] [address] Performed By: #### 5 8410-2 #### [facility] CLIA [id number] [address] [place] [address] [place] Platelets (Bld) [#/Vol] 259 10*3/uL Normal 150-[address] [facility] Comment on above: Order Comment: Speci men Type: BLOOD SPECIMEN Ordering Facility: [facility] Address: [address] [place], [place] [address] Performed By: #### 5 8410-2 #### [facility] CLIA [id number] [address] [place] [address] [place] RBC (Bld) [#/Vol] 4.98 10*6/uL Normal 3.90-5.20 [facility] Comment on above: Order Comment: Speci men Type: BLOOD SPECIMEN Ordering Facility: [facility] Address: [address] [place], [place] [address] Performed By: #### 5 8410-2 #### [facility] CLIA [id number] [address] [place] [address] [place] WBC (Bld) [#/Vol] 9.25 10*3/uL Normal 3.70-11.00 [facility] Comment on above: Order Comment: Speci men Type: BLOOD SPECIMEN Ordering Facility: [facility] Address: [address] [place], [place] [address] Performed By: #### 5 8410-2 #### [facility] CLIA [id number] [address] [place] [address] [place] CNOVon 12-12-2021 CNOV Office Visit (AMARJIT ) LEXI GARCIA ([id number]) 1970 F Date Time Provider Department 12/12/21 [...] improved with mobic, see ortho/pain clinic for 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 yard pain recommendations/inject ions, prn acetaminophen, start prn heat/ice/otc arthritis creams, low impact weightbearing exercise as tolerated, avoid aggravating triggers,supportive care, start flexeril/notify office if not tolerated, improved with mobic, see ortho/pain clinic for 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 pain recommendations/inject ions, prn acetaminophen, start prn [...] yes Dactylitis: no H/o precedent/frequent infection(s): no Enthesopathy/[place]'s /heel/plantar tenderness: as above Skin thickening, psoriasis, photosensitivity, purpura: no Nail changes: ridges/ripples Alpecia, patchy: no Eye inflammation: glasses, R retinal hole SICCA: dry eyes Oral/nasal/genital ulcers: no GI problems-diarrhea/blee ding/IBD/Gluten intolerence/Dysphagia: gerd Raynaud's phenomenon/digital ulcers: no Organ inv-Serositis: no Lung disease/ILD: no Myopathy/proximal muscle weakness: no Abnormal Urine or urethritis: no Renal/liver disease: no FINANCE LEAD/PNS/sz/cva/cancer disease: no HEME-Cytopenias/LAD/Cl ots: no Fevers: no [...] ago stable (more content not included)... Normal [facility] CRP SerPl-ncon 12-12-2021 CRP [Mass/Vol] 1.4 mg/dL High <0.[address] [facility] Comment on above: Order Comment: Speci men Type: BLOOD SPECIMEN Ordering Facility: [facility] Address: [address] [place]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 Performed By: #### B MP #### [facility] [address] [place] [address] Urea nitrogen [Mass/Vol] 20 mg/dL Normal 6-20 [facility] Comment on above: Performed By: #### B MP #### [facility] [address] [place] [address] CBC With Platelet No Differe ntialon 06-18-2020 Erythrocyte distribution width (RBC) [Ratio] 14.2 % Normal 11.5-14.5 [facility] Comment on above: Performed By: #### C BCND #### [facility] [address] [place] [address] Hematocrit (Bld) [Volume fraction] 41.5 % Normal 37.0-47.0 [facility] Comment on above: Performed By: #### C BCND #### [facility] [address] [place] [address] Hemoglobin (Bld) [Mass/Vol] 14.3 g/dL Normal 12.0-16.0 [facility] Comment on above: Performed By: #### C BCND #### [facility] [address] [place] [address] MCH (RBC) [Entitic mass] 31.4 pg Critically high 27.0-31.3 [facility] Comment on above: Performed By: #### C BCND #### [facility] [address] [place] [address] MCHC (RBC) [Mass/Vol] 34.5 % Normal 33.0-37.0 [facility] Comment on above: Performed By: #### C BCND #### [facility] [address] [place] [address] MCV (RBC) [Entitic vol] 91.2 fL Normal 82.0-100.0 [facility] Comment on above: Performed By: #### C BCND #### [facility] [address] [place] [address] Platelets (Bld) [#/Vol] 241 10*3/uL Normal 130-400 [facility] Comment on above: Performed By: #### C BCND #### [facility] [address] [place] [address] RBC (Bld) [#/Vol] 4.55 10*6/uL Normal 4.20-5.40 [facility] Comment on above: Performed By: #### C BCND #### [facility] [address] [place] [address] WBC (Bld) [#/Vol] 9.7 10*3/uL Normal 4.8-10.8 [facility] Comment on above: Performed By: #### C BCND #### [facility] [address] [place] [address] COVID-19, NAAon 06-18-2020 Source Swab BLOGS MANAGER swab Normal [facility] Comment on above: Performed By: #### I RCOV #### [facility] [address] [place] [address] Prothrombin Timeon 0 INR Coag (PPP) [Relative time] 1.0 {INR} Normal [facility] Comment on above: Performed By: #### P T ####[facility] [place] [phone] PT Coag (PPP) [Time] 13.1 s Normal 12.3-14.9 [facility] Comment on above: Performed By: #### P T ####[facility] [place] [phone] Type and Screen Capture 3 sc rn cellon 06-18-2020 Type and Screen Capture 3 scrn cell PATIENT: JOSE Doss LOC: [facility] BILL# : [id number] : 1970 SEX: F ORDERED BY: TEENA Lowe ORDERED : 06/18/2020 15:07 COLLECTED: 06/18/2020 15:36 ORDER : [id number] RECEIVED : 06/18/2020 15:36 Second, confirmatory specimen needed to satisfy Group [employer] policy. TEST NAME RESULT UNITS RANGES ABN FL ST ABORH Capture O POS F Antibody 3 Cell Scrn Captu NEG F Normal [facility] Comment on above: Performed By: #### T S3C #### [facility] [address] [place] [address] XR SPINE ENTIRE (2-3 VIEWS)o n 06-18-2020 [...] Ash Horta MD 06/19/20 Final result Normal [facility] FLUORO FOR SURGICAL PROCEDUR ESon [...] Maximiliano Rachel MD 05/09/20 Final result Normal [facility] COVID-19, NAAon 05-05-2020 COVID-19, BELLE Not Detected Normal Not Detect [facility] Comment on above: Result Comment: This nucleic acid amplification test was developed and its performance characteristics determined by [employer]. Nucleic acid amplification tests include PCR and [...] detected) result in this assay. Performed at: [facility] [email or web address] [facility], [place] [id number] Roller Skater: Altagracia Quiñonez MD, Phone: [phone] Performed By: #### I RCOV ####[facility] [place] [phone] Basic Metabolic Panelon 10-3 0-2020 Anion gap [Moles/Vol] 12 mmol/L Normal 9-15 [facility] Comment on above: Performed By: #### B MP #### [facility] [address] [place] [address] Calcium [Mass/Vol] 10.5 mg/dL Critically high 8.5-9.9 [facility] Comment on above: Performed By: #### B MP #### [facility] [address] [place] [address] Chloride [Moles/Vol] 98 mmol/L Normal 95-107 [facility] Comment on above: Performed By: #### B MP #### [facility] [address] [place] [address] CO2 [Moles/Vol] 27 mmol/L Normal 20-31 [facility] Comment on above: Performed By: #### B MP #### [facility] [address] [place] [address] Creatinine [Mass/Vol] 0.82 mg/dL Normal 0.50-0.90 [facility] Comment on above: Performed By: #### B MP #### [facility] [address] [place] [address] GFR/1.73 sq M predicted among blacks MDRD (S/P/Bld) [Vol rate/Area] mL/min/{1.73_m2} Normal >60 [facility] Comment on above: Result Comment: >60 mL/min/1.73m2 EGFR, calc. for ages 18 and older using the MDRD formula (not corrected for weight), is valid for stable renal function. Performed By: #### B MP #### [facility] [address] [place] [address] GFR/1.73 sq M.predicted MDRD (S/P/Bld) [Vol rate/Area] mL/min/{1.73_m2} Normal >60 [facility] Comment on above: Result Comment: >60 mL/min/1.73m2 EGFR, calc. for ages 18 and older using the MDRD formula (not corrected for weight), is valid for stable renal function. Performed By: #### B MP #### [facility] [address] [place] [address] Glucose [Mass/Vol] 84 mg/dL Normal 70-99 [facility] Comment on above: Performed By: #### B MP #### [facility] [address] [place] [address] Potassium [Moles/Vol] 4.6 mmol/L Normal 3.4-4.9 [facility] Comment on above: Performed By: #### B MP #### [facility] [address] [place] [address] Sodium [Moles/Vol] 137 mmol/L Normal 135-144 [facility] Comment on above: Performed By: #### B MP #### [facility] [address] [place] [address] Urea nitrogen [Mass/Vol] 31 mg/dL Critically high 6-20 [facility] Comment on above: Performed By: #### B MP #### [facility] [address] [place] [address] CBC With Platelet No Differe ntialon 05-03-2020 Erythrocyte distribution width (RBC) [Ratio] 14.3 % Normal 11.5-14.5 [facility] Comment on above: Performed By: #### C BCND #### [facility] [address] [place] [address] Hematocrit (Bld) [Volume fraction] 41.3 % Normal 37.0-47.0 [facility] Comment on above: Performed By: #### C BCND #### [facility] [address] [place] [address] Hemoglobin (Bld) [Mass/Vol] 13.6 g/dL Normal 12.0-16.0 [facility] Comment on above: Performed By: #### C BCND #### [facility] [address] [place] [address] MCH (RBC) [Entitic mass] 30.7 pg Normal 27.0-31.3 [facility] Comment on above: Performed By: #### C BCND #### [facility] [address] [place] [address] MCHC (RBC) [Mass/Vol] 33.0 % Normal 33.0-37.0 [facility] Comment on above: Performed By: #### C BCND #### [facility] [address] [place] [address] MCV (RBC) [Entitic vol] 92.9 fL Normal 82.0-100.0 [facility] Comment on above: Performed By: #### C BCND #### [facility] [address] [place] [address] Platelets (Bld) [#/Vol] 241 10*3/uL Normal 130-400 [facility] Comment on above: Performed By: #### C BCND #### [facility] [address] [place] [address] RBC (Bld) [#/Vol] 4.44 10*6/uL Normal 4.20-5.40 [facility] Comment on above: Performed By: #### C BCND #### [facility] [address] [place] [address] WBC (Bld) [#/Vol] 11.0 10*3/uL Critically high 4.8-10.8 [facility] Comment on above: Performed By: #### C BCND #### [facility] [address] [place] [address] COVID-19, NAAon 05-03-2020 Source Swab Anterior nares Normal [facility] Comment on above: Performed By: #### I RCOV ####[facility] [place] [phone] Partial Thromboplastin Timeo n 05-03-2020 aPTT Coag (Bld) [Time] 31.3 s Normal 24.4-36.8 [facility] Comment on above: Performed By: #### P TT #### [facility] [address] [place] [address] Prothrombin Timeon 0 INR Coag (PPP) [Relative time] 0.9 {INR} Normal [facility] Comment on above: Performed By: #### P T #### [facility] [address] [place] [address] PT Coag (PPP) [Time] 11.9 s Low 12.3-14.9 [facility] Comment on above: Performed By: #### P T #### [facility] [address] [place] [address] Type and Screen Capture 3 sc rn cellon 05-03-2020 Type and Screen Capture 3 scrn cell PATIENT: JOSE Doss LOC: [facility] BILL# : [id number] : 1970 SEX: F ORDERED BY: STEPHANIE Harrison ORDERED : 05/03/2020 14:14 COLLECTED: 05/03/2020 14:14 ORDER : [id number] RECEIVED : 05/03/2020 19:43 TEST NAME RESULT UNITS RANGES ABN FL ST ABORH Capture O POS F Antibody 3 Cell Scrn Captu NEG F Normal [facility] Comment on above: Performed By: #### T S3C #### [facility] [address] [place] [address] Established Visit (Orthopaed ic Surgery)on 04-26-2020 Established [...] biceps. No pain with resisted elbow flexion. 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 Shoulder abduction [...] Chiara Espinosa PA-C Department of Orthopaedic Surgery [facility] Dictation performed with the use of voice [...] scans evaluated by the musculoskeletal radiologist at [facility] I will call the patient back with [...] her light touch sensation is grossly intact. Broadcast Maintenance Technician strength is 5/5 elbow flexion 5/5 shoulder [...] 97.52 kg Gayle Washington MD Work Phone: [facility] 12-12-2021 10:43-0400 Diastolic blood pressure 87 mm[Hg] Gayle Washington MD Work Phone: [facility] 12-12-2021 10:43-0400 Heart rate 88 /min Gayle Washington MD Work Phone: [facility] 12-12-2021 10:43-0400 Systolic blood pressure 125 mm[Hg] Gayle Washington MD Work Phone: [facility] 10-14-2021 10:30-0400 Diastolic blood pressure 80 mm[Hg] Emmett Brunner Other [facility] Other 10-14-2021 10:30-0400 SaO2% (BldA) [Mass fraction] 98 % Emmett Brunner Other [facility] Other 10-14-2021 10:30-0400 Systolic blood pressure 130 mm[Hg] Emmett Brunner Other [facility] Other 07-01-2021 15:30-0500 Body weight 94.62 kg Letty Wesley Other [facility] Other 07-01-2021 15:30-0500 Diastolic blood pressure 78 mm[Hg] Letty Wesley Other [facility] Other 07-01-2021 15:30-0500 Respiratory rate 18 /min Letty Wesley Other [facility] Other 07-01-2021 15:30-0500 SaO2% (BldA) [Mass fraction] 98 % Letty Wesley Other [facility] Other 07-01-2021 15:30-0500 Systolic blood pressure 118 mm[Hg] Letty Wesley Other [facility] Other 06-18-2021 15:45-0500 Diastolic blood pressure 90 mm[Hg] Emmett Brunner Other [facility] Other 06-18-2021 15:45-0500 SaO2% (BldA) [Mass fraction] 97 % Emmett Brunner Other [facility] Other 06-18-2021 15:45-0500 Systolic blood pressure 122 mm[Hg] Emmett Brunner Other [facility] Other 05-15-2021 17:30-0500 Body weight 92.53 kg Emmett Brunner Other [facility] Other 05-15-2021 17:30-0500 Diastolic blood pressure 80 mm[Hg] Emmett Brunner Other [facility] Other 05-15-2021 17:30-0500 Systolic blood pressure 130 mm[Hg] Emmett Brunner Other [facility] Other 04-02-2021 14:30-0400 Body weight 92.63 kg Emmett Brunner Other [facility] Other 04-02-2021 14:30-0400 Diastolic blood pressure 88 mm[Hg] Emmett Brunner Other [facility] Other 04-02-2021 14:30-0400 SaO2% (BldA) [Mass fraction] 98 % Emmett Brunner Other [facility] Other 04-02-2021 14:30-0400 Systolic blood pressure 140 mm[Hg] Emmett Brunner Other [facility] Other Encounters Encounter Date Encounter Type Care Provider Facility Start: 01-12-2024 End: 01-12-2024 ambulatory [facility] Start: 01-12-2024 Encounter for other preprocedural examination [facility] Start: 12-20-2023 End: 12-20-2023 ambulatory Rosibel Cotton MD Facility[facility] Start: 11-02-2023 End: 11-02-2023 ambulatory TIM [facility] Start: 10-29-2023 End: 10-29-2023 ambulatory IZABEL LARA Not Available Start: 10-28-2023 End: 10-28-2023 ambulatory CLIFFORD VANN Not Available Start: 10-26-2023 End: 10-26-2023 ambulatory SOLITARIOCLIVE GARCÍA [facility] Start: 10-25-2023 End: 10-25-2023 ambulatory Rosibel Cotton MD Facility[facility] Start: 09-20-2023 End: 09-20-2023 ambulatory Rosibel Cotton MD Facility:[facility] Start: 09-13-2023 End: 09-13-2023 Subsequent hospital visit by physician [facility] Comment on above: Flatulence, eructati on and gas pain Start: 09-13-2023 End: 09-13-2023 ambulatory NICOLE Katrina [facility] Start: 09-13-2023 Encounter for other preprocedural examination [facility] Start: 07-26-2023 End: 07-26-2023 ambulatory KIMBERLEY G EDWIGE Not Available Start: 06-22-2023 End: 06-22-2023 ambulatory [facility] Start: 06-18-2023 End: 06-18-2023 ambulatory KIMBERLEY G EDWIGE Not Available Start: 05-11-2023 End: 05-12-2023 ambulatory JESSIE REID Not Available Start: 04-27-2023 End: 04-27-2023 ambulatory [facility] Start: 04-07-2023 ambulatory Gayle Washington MD Work Phone: Rheumatology Comment on above: Fax info Start: 02-10-2023 End: [facility]: 01-25-2023 End: 01-25-2023 ambulatory DALE HUTCHISON [facility] Start: 10-16-2022 Encounter for preprocedural cardiovascular examination DR ULISES [facility] Start: 10-16-2022 Encounter for preprocedural laboratory examination DR ULISES [facility] Start: 10-13-2022 End: 10-13-[address] [...] . Facility:[facility] Start: 12-12-2021 Telephone encounter [facility] Start: 12-12-2021 End: 12-13-2021 ambulatory KIMBERLEY LEORA [facility] Other Start: 12-12-2021 End: 12-12-2021 Patient encounter [...] . Facility:[facility] Start: 10-29-2021 Chart Update Cristobal F Lulu paul Work Phone: [id number] [id number] Work Phone: Start: 10-14-2021 End: 10-14-2021 ambulatory Emmett Brunner Other [facility] Other Start: 10-14-2021 Patient encounter procedure Emmett Brunner [facility] Start: 09-23-2021 End: 09-23-2021 ambulatory Emmett Brunner Other [facility] Other Start: 09-23-2021 Telephone encounter Emmett Brunner [facility] Start: 07-01-2021 End: 07-01-2021 ambulatory Lettyra Olson Other [facility] Other Start: 07-01-2021 Office outpatient vi sit 25 minutes Letty Wesley [facility] Start: 06-26-2021 (Procedure) Short Emmett Brunner [facility] Start: 06-26-2021 End: 06-26-2021 ambulatory Emmett Brunner Other [facility] Other Start: 06-18-2021 End: 06-18-2021 ambulatory Emmett Brunner Other [facility] Other Start: 06-18-2021 Office outpatient vi sit 25 minutes Emmett Brunner [facility] Start: 06-18-2021 Telephone encounter Emmett Brunner [facility] Start: 06-04-2021 End: 06-04-2021 Subsequent hospital visit by physician [facility] Comment on above: Chronic hip pain, bi lateral [M25.551, M25.552, G89.29] Start: 05-21-2021 (Procedure) Short Emmett Brunner [facility] Start: 05-21-2021 End: 05-21-2021 ambulatory Emmett Brunner Other [facility] Other Start: 05-15-2021 End: 05-15-2021 ambulatory Emmett Brunner Other [facility] Other Start: 05-15-2021 Office outpatient vi sit 25 minutes Emmett Brunner [facility] Start: 04-30-2021 (Procedure) Short Emmett Brunner [facility] Start: 04-16-2021 (Procedure) Short Emmett Brunner [facility] Start: 04-02-2021 Office outpatient vi sit 25 minutes Emmett Brunner [facility] Start: 02-21-2021 Office outpatient vi sit 15 minutes Cristobal Tomas Work Phone: [id number]-[id number] [address] Work Phone: Start: 06-25-2020 End: 06-27-2020 Evaluation and management of inpatient [facility] Start: 06-25-2020 End: 06-28-2020 Patient encounter procedure [facility] Start: 06-18-2020 End: 06-23-2020 Patient encounter procedure [facility] Start: 05-09-2020 End: 05-09-2020 Patient encounter procedure [facility] Procedures Date Procedure Procedure Detail Performing Clinician Start: 09-13-2023 Assay of gammaglobul in iga igd igg igm each Nicole Telles [employer]TER[employer] 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 Work Phone: Start: 06-04-2021 Radex hips bilateral with pelvis minimum 5 views Gayle Washington MD Work Phone: Start: 06-17-2020 Mammography Gayle jeffries MD Work Phone: Start: 06-09-2018 Lipid 1996 panel - S willian or Plasma Gayle Washington MD Work Phone: Plan of Treatment Date Care Activity Detail Author Start: 12-12-2024 DIABETES SCREEN DIABETES SCREEN [facility] Start: 12-12-2024 Diabetes Screening Diabetes Screening [facility] Start: 07-01-2024 Screening for malignant neoplasm of breast Breast cancer screen [facility] Start: 02-03-2024 End: 02-03-2024 Admission to same day surgery center 02/03/2024 8:45 AM EDT - 02/03/2024 9:[address] [facility] [address] [place] [id number] Nancy Durnad MD [address] [place] [address] [id number] [facility] OR Comment on above: ESOPHAGOGASTRODUODENOSCOPY Start: 02-03-2024 End: 02-03-2024 Esophagogastroduodenoscopy transoral diagnostic ESOPHAGOGASTRODUODENOSCOPY Chronic GERD 02/03/2024 8:45 AM EDT [facility] Start: 02-03-2024 Subsequent hospital visit by physician 02/03/2024 8:45 AM EDT Hospital Encounter [facility] [address] [place] [id number] Nancy Durand MD [address] [place] [id number] [facility] Start: 07-05-2023 Annual Wellness Visit (Medicare Advantage) Annual Wellness Visit (Medicare Advantage) [facility] Start: 06-09-2023 Lipid 1996 panel - Serum or Plasma Lipid Screening [facility] Start: 06-09-2023 LIPID SCREEN LIPID SCREEN [facility] Start: 03-05-2023 COVID-19 Vaccine ( season) COVID-19 Vaccine ( season) [facility] Start: 03-05-2023 Influenza vaccination [facility] Start: 02-02-2023 Influenza vaccination Flu vaccine (#1) [facility] Start: 07-05-2022 DEPRESSION ASSESSMENT DEPRESSION ASSESSMENT [facility] Start: 03-19-2022 End: 12-17-2022 25-hydroxyvitamin D3 [Mass/volume] in Serum or Plasma VITAMIN D 25 HYDROXY Lab Routine Vitamin D deficiency Expected: 03/19/2022 (Approximate), Expires: 12/17/2022 [facility] Work Phone: Comment on above: Expected: 03/19/2022 (Approximate), Expi res: 12/17/2022 Start: 03-05-2022 Influenza vaccination [facility] Start: 08-21-2021 COVID-19 VACCINE (2 - Booster for Barbara series) COVID-19 VACCINE (2 - Booster for Barbara series) [facility] Start: 07-05-2021 DEPRESSION ASSESSMENT DEPRESSION ASSESSMENT [facility] Start: 06-17-2021 Mammography [facility] Start: 2018 Shingles vaccine (1 of 2) Shingles vaccine (1 of 2) [facility] [employer] [facility] Start: 2018 SHINGRIX VACCINE (1 of 2) SHINGRIX VACCINE (1 of 2) [facility] Start: 2013 COLOGUARD (FIT-DNA) COLOGUARD (FIT-DNA) [facility] Start: 2013 Colonoscopy COLONOSCOPY [facility] Start: 2013 COLORECTAL CANCER SCREENING COLORECTAL CANCER SCREENING [facility] Start: [address] COLONOGRAPHY [facility] Start: 2013 FECAL OCCULT BLOOD FECAL OCCULT BLOOD [facility] Start: 2013 [facility] Start: 2013 SIGMOIDOSCOPY SIGMOIDOSCOPY [facility] Start: 1998 HPV TESTING HPV TESTING [facility] Start: 1989 PAP TESTING PAP TESTING [facility] Start: 1987 DTaP/Tdap/Td vaccine (1 - Tdap) DTaP/Tdap/Td vaccine (1 - Tdap) [facility] [employer] Start: 1987 Urine microalbumin profile [facility] Start: 1986 Hepatitis C screening Hepatitis C screen [employer] Start: 1986 HIV SCREENING HIV SCREENING [facility] Start: 1983 HIV screening HIV screen [facility] [employer] Start: 1980 Adult depression screening assessment DEPRESSION SCREENING [facility] Start: 1980 Depression Screen Depression Screen [facility] [employer] Start: 1978 Lipid panel Lipids [employer] Start: 1974 PNEUMOCOCCAL (1 - PCV) PNEUMOCOCCAL (1 - PCV) [facility] Start: 1974 Pneumococcal 0-64 years Vaccine (1 - PCV) Pneumococcal 0-64 years Vaccine (1 - PCV) [facility] Start: 1974 Pneumococcal vaccination Pneumococcal Vaccine (1 - PCV) [facility] Start: 1968 HEPATITIS B (1 of 3 - 3-dose series) HEPATITIS B (1 of 3 - 3-dose series) [facility] Start: 1968 Hepatitis B Vaccine (1 of 3 - 3-dose series) Hepatitis B Vaccine (1 of 3 - 3-dose series) [facility] Celiac Disease Panel Celiac Dise ase Panel Lab Routine Flatulence, eructation and gas pain 09/13/2023 4:20 PM EDT [facility] End: 09-13-2023 H. pylori antigen [facility] Comment on above: Once for 1 Occurrences starting 09/13/19 24 until 09/13/2023 End: 09-13-2023 H. Pylori Antigen, Stool H. Pylori Antigen, Stool Lab Routine Flatulence, eructation and gas pain 1 Occurrences starting 09/13/2023 until 09/13/2023 [facility] Work Phone: Comment on above: 1 Occurrences starting 09/13/2023 until 09/13/2023 Immunizations Immunization Date Immunization Notes Care Provider Sabina brumfield 04-06-2019 influenza, injectabl e, quadrivalent, preservative free Cristobal Tomas Work Phone: [id number]-[address] Work Phone: 04-06-2019 influenza virus vaccine, unspecified formulation Gayle Washington MD Work Phone: [facility] 05-15-2016 seasonal influenza, intradermal, preservative free Cristobal Tomas Work Phone: [facility] [employer] [facility] Payers Date Payer Category Payer Unknown 2021 Unknown C[employer]TON AR[employer] [place] X [id number] 2021-Present [phone] [address] [address] [place] [address] HMO [id number] 2020 Private Health Insurance [facility] [employer] [id number] 2020-2021 [address] [address] [place] [address] PPO [id number] 2018 Unknown [id number] 2017 Unknown [id number] 1968 Unknown [id number] 2.16.840.1.892475.3.579.2 .182 1968 Unknown [id number] 2.16.840.1.979380.3.579.2 .182 1968 Unknown [id number] 2.16.840.1.103484.3.579.2 .182 1968 Unknown [id number] 2.16.840.1.709579.3.579.2 .182 1968 Unknown [id number] 2.16.840.1.391359.3.579.2 .182 1968 Unknown [id number] 2.16.840.1.744072.3.579.2 .593 1968 Unknown [id number] 2.16.840.1.190059.3.579.2 .593 1968 Unknown [id number] 2.16.840.1.576714.3.579.2 .593 1968 Unknown [id number] 2.16.840.1.355115.3.579.2 .593 1968 Unknown [id number] 2.16.840.1.067108.3.579.2 .593 1968 Unknown [id number] 2.16.840.1.443385.3.579.2 .593 1968 Unknown [id number] 2.16.840.1.883450.3.579.2 .593 1968 Unknown [id number] 2.16.840.1.873481.3.579.2 .593 1968 Unknown [id number] 2.16.840.1.140920.3.579.2 .593 1968 Unknown [id number] 2.16.840.1.913721.3.579.2 .593 1968 Unknown [id number] 2.16.840.1.428454.3.579.2 .593 1968 Unknown [id number] 2.16.840.1.034334.3.579.2 .1259 1968 Unknown [id number] 2.16.840.1.167997.3.579.2 .1259 1968 Unknown [id number] 2.16.840.1.946927.3.579.2 .1259 1968 Unknown [id number] 2.16.840.1.005355.3.579.2 .1259 1968 Unknown [id number] 2.16.840.1.562622.3.579.2 .1259 1968 Unknown [id number] 2.16.840.1.094296.3.579.2 .1259 1968 Unknown [id number] 2.16.840.1.550275.3.579.2 .1259 1968 Unknown [id number] 2.16.840.1.356225.3.579.2 .196 1968 Unknown [id number] 2.16.840.1.950595.3.579.2 .196 1968 Unknown [id number] 2.16.840.1.251140.3.579.2 .196 1968 Unknown [id number] 2.16.840.1.451210.3.579.2 .173 1968 Unknown [id number] 2.16.840.1.574138.3.579.2 .173 1968 Unknown [id number] 2.16.840.1.212813.3.579.2 .173 Social History Date Type Detail Facility Start: 06-04-2021 End: 09-08-2023 Tobacco smoking status NHIS Smokes tobacco daily [facility] History of tobacco use Cigarette Smoker [facility] Start: 05-03-2020 End: 06-04-2021 Cigarettes smoked current (pack per day) - Reported 1 [facility] Start: 06-04-2021 End: 09-08-2023 Tobacco use and exposure Smokeless tobacco non-user [facility] Start: 12-12-2021 End: 09-08-2023 Alcohol intake Current drinker of alcohol (finding) [facility] Start: 06-04-2021 History SDOH Alcohol Comment rarely. [facility] Start: 1970 Sex Assigned At Not on file [facility] Start: 11-29-2021 End: 12-09-2021 Exposure to SARS-CoV-2 (event) Unable to assess [facility] Start: 05-03-2020 End: 06-05-2021 Sex Assigned At [facility] Other Start: 05-05-2021 End: 06-04-2021 Exposure to SARS-CoV-2 (event) Not sure [facility] National Score (1-100), lower number is lower risk 95 [facility] (I/We) worried whether (my/our) food would run out before (I/we) got money to buy more. Never true [facility] [employer] Start: 09-08-2023 Tobacco Comment intermittently since 15 [facility] [employer] Start: 05-03-2020 Alcohol Comment hardly ever [employer] Medical Equipment Procedure Code Equipment Code Equipment Original Text Equipment Identifier Dates Impl Alena Spine R michael Ti35 Mm 55 Mm [id number] Start: 06-25-2020 Graft Spnl W11xh [id number] Corticocancellous Lord Triad - [id number] Start: 05-09-2020 Plate Spnl L28mm Antr Cerv 1 Lev Translational [place] Acp [id number] Start: 05-09-2020 Screw Spnl L13mm Dia4mm Ant Cerv [facility] Ang Compr [place] Acp [id number] Start: 05-09-2020 Connector Spnl C rss Lo Prof Adj Reline-O 5.5 X 45-65 Mm [id number] Start: 06-25-2020 Screw Spnl Dia5. 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 AM stiffness lasts 1-2 hrs (was 2-3 hr prior), on average daily. Denies joint erythema, swelling, warmth. Comprehensive History: Patient Active Problem List Diagnosis Chest pain, atypical Benign essential HTN HOFFMAN (dyspnea on exertion) Fibromyalgia Elevated d-dimer Mixed hyperlipidemia GERD without esophagitis Orthopnea Sleep disturbances Abnormal nuclear stress test Unstable angina (CMS/HCC) Coronary artery disease involving hamilton coronary artery of hamilton heart without angina pectoris Degenerative joint disease [...] 400 mg capsul (more content not included)... [facility] 06-22-2023 Note Attestation signed by Jessie Reid [...] subchondral sclerosis noted on fist [facility] joints [facility] Follow-up Patient Visit Subjective Chief [...] disturbances Abnormal nuclear stress test Unstable angina ([facility]) Coronary artery disease involving hamilton coronary artery of hamilton heart without angina pectoris Degenerative joint disease [...] Chronic pain disorder Depression Factor V Leiden ([facility]) Fibromyalgia, primary GERD (gastroesophageal reflux disease) Hyperlipidemia [...] the morning. aspirin (more content not included)... [facility] 04-27-2023 Note Attestation signed by Jessie [...] history of diffuse pain presented today to [facility], previously followed by [facility] Exam was remarkable for diffuse tenderness consistent with fibromyalgia, she reports episodic swelling in hands and feet, no synovitis was noted on exam today Will do further workup as below We discussed risks of NSAIDs including but not limited to: kidney impairment, GI ulcer/bleed, CV risk, etc. 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 She formerly saw [facility] Rheumatology with last visit in December 2021 per available records. 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 Reports sometimes she has swelling, redness, [...] Patient Active Proble (more content not included)... [facility] 04-07-2023 Note Reviewed recent lipi d [...] draw Elodia Oscar NP Division of Cardiology, [facility] Ph- [phone] Pager- [phone] Email- [email or web address] 04-07-2023 Miscellaneous Notes Notify patient [...] 06/04/2021 Secondary osteoarthritis of multiple sites Rheumatology Gyale Washington MD Upcoming Rheumatology Appointments - Next [...] [[facility]] 10/05/22 10/06/23 10/05/22 Auth. provider: Gayle Washintgon MD Assoc. diagnoses: Anemia of chronic disease [...] faxed with confirmation. documented in this encounter [facility] 02-10-2023 Note Coronary artery dise ase is stable Continue GDMT- ASA, lipitor, toprol continue risk factor modifications- heart healthy diet, regular exercise as tolerated and continue all medications. Pt to have repeat lipid and lft levels drawn soon [facility] 02-10-2023 Note D/W pt that may need to see GI for further evaluation for other etiology of her chest pain and may be r/t GERD [facility] 02-10-2023 Note Currently stable [facility] 02-10-2023 Note Currently denied chest pain [facility] 02-10-2023 Note Continue lipitor 80 mg, lipid level well controlled currently [facility] 02-10-2023 Note Hypertension is stab le and well controlled at home Continue norvasc, toprol [facility] 02-10-2023 Note [facility] CARDIOLOGY PROGR ESS [...] stenosis. LCX - (more content not included)... [facility] 02-10-2023 Note Review of Systems All other systems reviewed and are negative. 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 Additional Equipment Requests [facility] 01-13-2023 Note Noted reversible per fusion, and unstable angina with HOFFMAN therefore heart cath ordered No acute concerns noted on echocardiogram- normal LVSF, normal RV function and no significant valvular abnormalities [facility] 01-13-2023 Note Ordered heart cath [facility] 01-13-2023 Note Plan for cardiac cat h- orders placed Pt updated [facility] 01-13-2023 Note Continue statin [facility] 01-13-2023 Note Abnormal stress with reversible perfusion defect Will order cardiac cath to assess for any significant coronary stenosis that would correlate with her Unstable Angina symptoms. [facility] 01-13-2023 Note Continue meds [facility] 01-13-2023 Note Reviewed Echocardiog shabbir- 12/21/22 Normal [...] symptoms. Mixed hyperlipidemia Continue statin Elodia Oscar NP Division of Cardiology, [facility]- [phone] Pager- [phone] Email- [email or web address] 10-13-2022 Note OPERATIVE NOTE OPERATION [...] left cheek was prepped with Betadine. A Larimer tip Bovie was then used to make [...] the recovery room in good condition. [facility] 10-07-2022 Note EXAM: XR CHEST 2 V HISTORY: Pre-surgery evaluation COMPARISON: None. TECHNIQUE: PA and lateral views of the chest. FINDINGS: The cardiomediastinal silhouette is normal. No focal consolidation is identified. There is no pneumothorax. No pleural effusion is noted. The osseous structures are intact. IMPRESSION: No acute cardiopulmonary process. Electronically authenticated by: JOSIAH WILKS Date: 2022-10-07 11:27 [facility] 07-23-2022 Note CONSULTATION CONSULTATION DATE: 07/23/2022 [...] Patient does agree with this plan. [facility] 06-11-2022 Note CONSULTATION CONSULTATION DATE: 06/11/2022 [...] q.h.s. 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 [facility] 05-18-2022 Miscellaneous Notes Patient's request for medication is as follows: Requested Prescriptions Signed Prescriptions Disp Refills celecoxib (CELEBREX) 200 mg capsule 180 capsule 3 Sig: Take 1 capsule by mouth twice daily. Prescription(s) as above. Please process accordingly. Gayle Washington MD At [employer] [facility] message sent to patient reminding her to [...] Lab Orders Expected Expires Ordered HLA-B27 PCR [[id number]] 06/19/21 06/18/22 06/18/21 Auth. provider: Gayle Washington MD Assoc. diagnoses: Elevated sedimentation rate VITAMIN D 25 HYDROXY [SQVITD] 03/19/22 12/17/22 12/17/21 Auth. provider: Gayle Washington MD Assoc. diagnoses: Vitamin D deficiency documented in this encounter [facility] 04-16-2022 Note CONSULTATION PROCEDURE DATE: 04/16/2022 The [...] the clinic in three months' time. [facility] 04-09-2022 Note CONSULTATION CONSULTATION DATE: 04/09/2022 [...] to the clinic for her injection. [facility] 01-01-2022 Note CONSULTATION CONSULTATION DATE: 01/01/2022 This is a pleasant 51-year-old female returning to the clinic status post #2 bilateral MBB on C3, C4 and C5 that afforded her 80% relief for 5 days. She was recently at her sanitation manager's and was diagnosed with fibromyalgia and she [...] be followed up in the clinic post-procedure. [facility] Signed and Approved by: BEN MONROE . 01/08/2022 10:22:00 [facility] 12-17-2021 Miscellaneous Notes Pt aware. [...] to My Chart if tests completed at [facility]: Mildly low vitamin D- increase [...] superior labral tear; documented in this encounter [facility] 12-12-2021 Note HNO ID: [id number] Author: Gayle Washington MD Service: ? Author [...] flat ground knees give out. COVID vaccine [employer] [facility] 06/26/21. Feels safe at home. 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 clinic for care home pain recommendations/injections, prn acetaminophen, start prn heat/ice/otc arthritis creams, low impact weightbearing exercise as tolerated, avoid aggravating triggers,supportive care, start flexeril/notify office if not tolerated, improved with mobic, see ortho/pain clinic for care home pain recommendations/injections, prn acetaminophen, start prn heat/ice/otc [...] yes Dactylitis: no H/o precedent/frequent infection(s): no Enthesopathy/[place]'s/heel/plant ar tenderness: as above Skin thickening, psoriasis, photosensitivity, purpura: no Nail changes: ridges/ripples Alpecia, patchy: no Eye inflammation: glasses, R retinal hole SICCA: dry eyes Oral/nasal/genital ulcers: no GI problems-diarrhea/bleeding/IBD/Gl uten intolerence/Dysphagia: gerd Raynaud's phenomenon/digital ulcers: no Organ inv-Serositis: no Lung disease/ILD: no Myopathy/proximal muscle weakness: no Abnormal Urine or urethritis: no Renal/liver disease: no FINANCE LEAD/PNS/sz/cva/cancer disease: no HEME-Cytopenias/LAD/Clots: no Fevers: no Fatigue: [...] MEDICAL HISTORY: PMH (more content not included)... [facility] 12-12-2021 History of Present illness Narrative [...] improved with mobic, see ortho/pain clinic for care home pain recommendations/injections, prn acetaminophen, start prn heat/ice/otc arthritis creams, low impact weightbearing exercise as tolerated, avoid aggravating triggers,supportive care, start flexeril/notify office if not tolerated, improved with mobic, see ortho/pain clinic for care home pain recommendations/injections, prn acetaminophen, start prn heat/ice/otc arthritis creams, low impact weightbearing exercise as tolerated, avoid aggravating triggers, June 04, 2021 SUBJECTIVE Ms. Garcia is a 51 year old female who presents for joint pain eval. Years of pain in R>L shoulders, neck, knees, hips, low back 2003 s/p C6/7 fusion 2017 s/p b/l [...] Urine or urethritis: no Renal/liver disease: no FINANCE LEAD/PNS/sz/cva/cancer disease: no HEME-Cytopenias/LAD/Clots: no Fevers: no Fatigue: [...] T&A, s/p cholecystectomy, s/p repeated ear surgeries, 2004 s/p C6/7 fusion 2017 s/p b/l carpal [...] T&A, s/p cholecystectomy, s/p repeated ear surgeries, 2004 s/p C6/7 fusion 2017 s/p b/l carpal [...] negative Jarvis's test, tinel's and marti tests oll JTS:no Tend. JTS:R>L shoulders, L elbow, neck, [...] tight Hip clicking recently Reports pain 12/12 Degenerative joint disease on imaging Has findings [...] flat ground knees give out. COVID vaccine [employer] 06/26/21. Feels safe at home. Has enough food, supplies and medications. Overall uncomfortable but happy with rheum care. 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 documented in this encounter [facility] 12-09-2021 Miscellaneous Notes Patient has been scheduled as requested for 12/12/21. Referral has been attached. I spoke with Khang Jose and she is aware of all of the appointment details. Nataliya DYKES December 09, 2021 2:43 PM Patient calling to schedule follow up appt with Dr Washington no schedule pulling for [place] only Hilda. Patient requesting call at [phone] Washington is still at [place]. Please advise. documented in this encounter [facility] 11-18-2021 Note PAIN MANAGEMENT CONS ULTATION CONSULTATION DATE: 11/18/2021 CHIEF COMPLAINT: Cervical pain. HISTORY OF PRESENT ILLNESS: This is a 51-year-old female who had, in the past, been seen by Dr. Brunner, Pain Management in [place], [place]. The patient had changed her insurances to [employer] and, as such, Dr. Brunner does not [...] like to proceed. CC: Kimberley Gibbons D.O. [facility] Signed and Approved by: DR RACHEL STOCK . 11/25/2021 12:22:00 [facility] 10-14-2021 Evaluation note Encounter Date Diagnosis [...] nerve block in the future if needed. [facility] Other 12-28-2021 Evaluation note* Encounter Date Diagnosis [...] right hip to further evaluate her pain. [facility] Other 12-15-2021 Evaluation note* Encounter Date Diagnosis [...] (ICD-10 - G89.29) Continue medications as prescribed [facility] Other 11-11-2021 Evaluation note* Encounter Date Diagnosis [...] (ICD-10 - G89.29) Continue medications as prescribed [facility] Other [id number] Evaluation note* Encounter Date Diagnosis Assessment Notes [...] injection under ultrasound guidance in the future. [facility] Other Evaluation note* Diagnosis Secondary osteoarthritis of [...] Chronic pain syndrome documented in this encounter [facility]No [facility] Other Evaluation note* Diagnosis Secondary osteoarthritis of multiple sites- Primary Osteoarthrosis involving, or with mention of more than one site, but not specified as generalized, multiple sites Vitamin D deficiency Unspecified vitamin D deficiency Fibromyalgia Mylagia and myositis, unspecified documented in this encounter [facility] note* Diagnosis Secondary osteoarthritis of multiple sites Osteoarthrosis involving, or with mention of more than one site, but not specified as generalized, multiple sites documented in this encounter [facility] note* Diagnosis Chronic hip pain, bilateral Chronic left shoulder pain Pain in joint, shoulder region Chronic pain of both knees Bilateral hand pain Pain in limb documented in this encounter [facility] note* Diagnosis Secondary osteoarthritis of multiple sites Osteoarthrosis involving, or with mention of more than one site, but not specified as generalized, multiple sites Cervicalgia Chronic bilateral low back pain with bilateral sciatica documented in this encounter [facility] note* Diagnosis Flatulence, eructation and gas pain Flatulence, eructation, and gas pain Chronic GERD documented in this encounter [facility] general Narrative - Reported* Type Description Date Medical History allergies Medical History factor 5 blood disorder Medical History anxiety Medical History depression Medical History bipolar Medical History lumbar DDD Surgical History back surgery 06/2021 Surgical History neck surgery 05/2021 Hospitalization History see above [facility] Other History general Narrative - Reported* Type Description Date Medical History allergies Medical History factor 5 blood disorder Medical History anxiety Medical History depression Medical History bipolar Medical History lumbar DDD Medical History osteoarthritis of multiple joint s Surgical History back surgery 06/2021 Surgical History neck surgery 05/2021 Hospitalization History see above [facility] Other History of Present illness NarrativePatient has continued intermittent pain symptoms in her right shoulder she is remotely status post rotator cuff repair she had a follow-up MRI scan recently she would like to review with me today. She had a subacromial injection but it did not resolve all of her symptoms.[id number] Work Phone: Reason for referral (narrative)* Diagnostic Procedure Only (Routine) - Closed Specialty Diagnoses / Procedures Referred By Contac t Referred To Contact XR IMAGING Diagnoses Bilateral hand pain Procedures XR HAND GENERAL 3V PA/LAT/OBL BILATERAL X-RAY HAND MINIMUM 3 VIEWS Gayle Washington MD [address] [place] [address] Xr Imaging Referral ID Status Reason Start Date Expiration Date V isits Requested Visits Authorized [id number] Closed Auto-Generate d Referral 06/04/2021 07/04/2022 1 1 * Diagnostic Procedure Only (Routine) - Closed Specialty Diagnoses / Procedures Referred By Contac t Referred To Contact XR IMAGING Diagnoses Chronic pain of both knees Procedures XR KNEE GENERAL 4V AP BOTH/PA BOTH/LAT/MERC BILATERAL KNEE AP-WGT/LAT/MERCHANT Gayle Washington MD [address] [place] [address] Xr Imaging Referral ID Status Reason Start Date Expiration Date V isits Requested Visits Authorized [id number] Closed Auto-Generate d Referral 06/04/2021 07/04/2022 1 1 * Diagnostic Procedure Only (Routine) - Closed Specialty Diagnoses / Procedures Referred By Contac t Referred To Contact XR IMAGING Diagnoses Chronic left shoulder pain Procedures XR SHOULDER GENERAL 3V OR MORE AP/TRUE AP/OTHER LEFT X-RAY SHOULDER COMPLET MIN 2 VIEWS Gayle Washington MD [address] [place] [address] Xr Imaging Referral ID Status Reason Start Date Expiration Date V isits Requested Visits Authorized [id number] Closed Auto-Generate d Referral 06/04/2021 07/04/2022 1 1 * Diagnostic Procedure Only (Routine) - Closed Specialty Diagnoses / Procedures Referred By Contac t Referred To Contact XR IMAGING Diagnoses Chronic hip pain, bilateral Procedures XR HIP BILATERAL 5V PEL/AP/LAT EACH HIP RADEX HIPS BILATERAL WITH PELVIS MINIMUM 5 VIEWS Gayle Washington MD [address] [place] [address] Xr Imaging Referral ID Status Reason Start Date Expiration Date V isits Requested Visits Authorized [id number] Closed Auto-Generate d Referral 06/04/2021 07/04/2022 1 1 [facility] for visit Narrative* Diagnostic Procedure Only (Routine) - Closed Specialty Diagnoses / Procedures Referred By Contac t Referred To Contact XR IMAGING Diagnoses Bilateral hand pain Procedures XR HAND GENERAL 3V PA/LAT/OBL BILATERAL X-RAY HAND MINIMUM 3 VIEWS Gayle Washington MD [address] [place] [address] Xr Imaging Referral ID Status Reason Start Date Expiration Date V isits Requested Visits Authorized [id number] Closed Auto-Generate d Referral 06/04/2021 07/04/2022 1 1 [facility] Summary Purpose Family History No Family History [...] left Procedures CONSULT TO ORTHOPAEDICS OFFICE/OUTPATIENT NEW [facility] MDM 60-74 MINUTES Gayle Washington MD [address] [place] [address] Referral ID Status Reason Start Date Expiration Date Visits Requested Visits Authorized [id number] Pending Review PCP Requested Referral 12/12/2021 12/12/2022 1 1 Additional Source Comments INFORMATION SOURCE (unrecogn ized section and content) DATE CREATED AUTHOR 06/20/2020 [facility] DATE CREATED AUTHOR AUTHOR'S ORGANIZ ATION 06/27/2020 [facility] DATE CREATED AUTHOR AUTHOR'S ORGANIZ ATION 12/01/2020 [facility] DATE CREATED AUTHOR AUTHOR'S ORGANIZ ATION 02/23/2021 [facility] DATE CREATED AUTHOR AUTHOR'S ORGANIZ ATION 02/23/2021 [employer] DATE CREATED AUTHOR AUTHOR'S ORGANIZ ATION 12/26/2021 [facility] DATE CREATED AUTHOR AUTHOR'S ORGANIZ ATION 07/02/2022 [facility] dical Specialist DATE CREATED AUTHOR AUTHOR'S ORGANIZ ATION 10/08/[address] [facility] DATE CREATED AUTHOR AUTHOR'S ORGANIZ ATION 10/20/2022 [facility] DATE CREATED AUTHOR AUTHOR'S ORGANIZ ATION 10/30/2023 [facility] dical Specialists EPIC DATE CREATED AUTHOR AUTHOR'S ORGANIZ ATION 12/03/2023 [facility] DATE CREATED AUTHOR AUTHOR'S ORGANIZ ATION 12/26/2023 [facility] DATE CREATED AUTHOR AUTHOR'S ORGANIZ ATION 01/19/2024 [facility] Source Comments (unrecognize d section and content) In the event this informatio n is protected by the Federal Confidentiality of Alcohol and Drug Abuse Patient Records regulations: The Federal rules restrict any use of the information to criminally investigate or prosecute any alcohol or drug abuse patient.[facility] the event this information is protected by the Federal Confidentiality of Alcohol and Drug Abuse Patient Records regulations: The Federal rules restrict any use of the information to criminally investigate or prosecute any alcohol or drug abuse patient.[facility] the event this information is protected by the Federal Confidentiality of Alcohol and Drug Abuse Patient Records regulations: The Federal rules restrict any use of the information to criminally investigate or prosecute any alcohol or drug abuse patient.[facility] the event this information is protected by the Federal Confidentiality of Alcohol and Drug Abuse Patient Records regulations: The Federal rules restrict any use of the information to criminally investigate or prosecute any alcohol or drug abuse patient.[facility] the event this information is protected by the Federal Confidentiality of Alcohol and Drug Abuse Patient Records regulations: The Federal rules restrict any use of the information to criminally investigate or prosecute any alcohol or drug abuse patient.[facility] the event this information is protected by the Federal Confidentiality of Alcohol and Drug Abuse Patient Records regulations: The Federal rules restrict any use of the information to criminally investigate or prosecute any alcohol or drug abuse patient.[facility] Reason for Visit (unrecogniz ed section and content) Reason Comments Follow Up Pain ongoing generalized pain. Specialty Diagnoses / Procedures Referred By Contac t Referred To Contact RHEUMATOLOGY Diagnoses Follow Up Procedures OFFICE/OUTPATIENT ESTABLISHED MOD MDM 30-39 MIN Follow Up Gayle Washington MD [address] [place] [address] [facility] [address] [facility] [place] [address] Referral ID Status Reason Start Date Expiration Date Visits Requested Visits Authorized [id number] Waiting for Response OON/Self Pay Override Patient cleared - OON Required Payment Collected 12/08/2021 03/08/2022 1 1 Reason Comments Appointment Reason Comments Results Care Teams (unrecognized sec tion and content) 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 Start Date End Date Edwige Kimberleynegin Corey, DO [address] [place] [address] PCP - General Family Practice 06/04/21 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 Start Date End Date Edwige Kimberleynegin Corey, DO [address] [place] [address] PCP - General Family Practice 06/04/21 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 Start Date End Date Edwige, Kimberley Leora, DO [address] [place] [address] PCP - General Family Medicine 06/04/21 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 [employer] [facility]. provides no warranty or guarantee of the accuracy or completeness of information in this document.
[2024-01-24 07:26] VITALS: BP 156/96; PULSE 102; TEMP 36.4; O2SAT 95
[2024-01-24] MEDS: 0.9 % SODIUM CHLORIDE 500 ML IV (07:32)
[2024-01-24] MEDS: BUPIVACAINE HCL 0.25% PF 25 MG/10 ML VIAL 5 ML INJ (08:37)
[2024-01-24] MEDS: DEXAMETHASONE SOD PHOS 10 MG/ML VIAL INJ (08:55)
[2024-01-24] MEDS: LIDOCAINE HCL 2% 400 MG/20 ML MDV 5 ML INJ (08:55)
--- NOTE | 2024-01-24 08:56 | P.ON_ITS ---
Date of procedure: 01/24/24 Pre-op diagnosis: Pain due to cervical spondylosis without myelopathy Post-op diagnosis: same as pre-op Procedure: Procedure: Right C3-4, 4-5 radiofrequency ablation Medications: Bupivacaine 0.25% 2cc, lidocaine 2% 1cc, dexamethasone 10mg The patient was seen and examined in the preoperative holding area.? The site was marked.? Written informed consent was obtained and placed on the chart.? The patient was brought to the medical procedure unit and placed in the prone position.? A timeout was completed verifying correct patient, procedure, positioning, and special requirements.? The skin overlying the target points, the designated medial branch, were prepped and draped in the usual sterile fashion.? The target point was achieved with a 20-gauge 15 cm with a 10 mm curved active tip radiofrequency cannula under direct fluoroscopic visualizatio n.? The needle was inserted at level C3 on the right side. Needle tip position was confirmed with lateral fluoroscopic position.? Motor stimulation was carried out at 2 Hz up to 5 volts with the absence of extremity activity.? This was repeated at level C4, 5 on right side.?? Sensory stimulation was carried out.? Concordant pain was realized at the above- mentioned sites.? Then radiofrequency lesioning was carried out times 90 seconds at 80 degrees times 2 lesions at each level.? The radiofrequency probe was removed prior to cannula removal.? The above-mentioned injectate was placed in 1 mL increments.? The needle was removed.? Insertion sites were covered.? The patient was taken to the postoperative recovery area and monitored for an appropriate length of time before being found suitable for discharge in the company of a responsible adult. Anesthesia: MAC Surgeon: Rosibel Cotton Pathology: none sent Condition: stable Disposition: no change
[2024-01-24 08:58] VITALS: BP 151/89; PULSE 109; TEMP 36.5; O2SAT 94
[2024-01-24 09:07] VITALS: BP 138/106; PULSE 104; TEMP 36.5; O2SAT 94
== END 2024-01-24 09:24 | disposition home or self-care (01) ==
LOC: SURGOUT 06:49
PROVIDERS: Visit Provider Anesthesiology
PROC: (CPT 1939; principal; 2024-01-24 08:10)
DX: M47.812 Spondylosis without myelopathy or radiculopathy, cervical region (principal)
CPT/HCPCS: 64633; 64634; J0665; J1100; J2704

== ENCOUNTER 2024-02-02 09:16 | Outpatient (OUT) | payer OTHER, SELFPAY ==
--- NOTE | 2024-02-02 09:20 | MR_ITS ---
[address] [address] Patient Name: LEXI LEWIS MRN: [id number] date: 1970 Sex: F Assigned Patient Location: MRI Current Patient Location: MRI Accession/Order Number: [id number] Exam Date: 02/02/2024 10:10 Report Date: 02/02/2024 13:39 At the request of: KANNAN FRIEDMAN Procedure: MR lumbar spine wo/w con EXAMINATION: MR lumbar spine wo/w con HISTORY: Lumbar Stenosis COMPARISON: No relevant comparison available. TECHNIQUE: Axial T1 and T2; Sagittal T1, T2, and STIR sequences. Images were performed before and after the administration of intravenous Dotarem contrast. FINDINGS: For the purposes of numbering, sagittal T2 image # 8 extends from the T10 vertebral body superiorly to the S3-S4 level inferiorly. PARASPINAL AREA: Normal with no visible mass. Postsurgical changes in the posterior subcutaneous tissues with no significant postcontrast enhancement BONES: 5 mm anterolisthesis of L5 in relation to S1. Posterior decompression bilateral transpedicular fusion L5-S1 with resultant metallic susceptibility artifact CORD/CAUDA EQUINA: Normal caliber, contour, and signal intensity. No significant postcontrast enhancement DISC LEVELS: 12-L1: No significant disc/facet abnormality, spinal stenosis, or foraminal stenosis. L1-L2: No significant disc/facet abnormality, spinal stenosis, or foraminal stenosis. L2-L3: Early degenerative disc disease is present without focal protrusion or neural impingement. L3-L4: Disc desiccation. Mild posterior disc/osteophyte complex . Mild ligamentum flavum hypertrophy and facet osteoarthropathy. No central canal or foraminal stenosis L4-L5: Disc space narrowing and disc desiccation. Posterior broad-based disc herniation the protrusion host extending posteriorly 4.5 mm. Moderate bilateral facet osteoarthropathy. Moderate to severe bilateral foraminal stenosis L5-S1: Posterior decompression and transpedicular fusion. 5 mm anterolisthesis of L5 on S1 with resultant pseudobulge. No central or foraminal stenosis MR/MR lumbar spine wo/w con IMPRESSION: Degenerative changes resulting in moderate to severe bilateral L4-L5 foraminal stenosis Electronically authenticated by: ANUPAM BAKER Date: 02/02/2024 13:39
--- OUTSIDE RECORDS SUMMARY | 2024-02-02 09:30 | XMS_ITS | CCD ---
Author Organization [facility] Care Team Providers Care Shaper Operator Name Role Phone ZAIRE, CRISTOBAL F Primary [...] Care Unavailable FELICIA, FEMI H. Referring Unavailable [place], Cristobal F Unavailable Edwige DO, Kimberley Leora Primary Care Provider Emmett Brunner Unavailable Letty Olson Unavailable Edwige DO, Kimberley Leora Primary Care Provider EDWIGE, KIMBERLEY LEORA Referring Unavailable EDWIGE, KIMBERLEY LEORA Primary Care Unavailable FELIX, GAYLE Attending Unavailable EDWIGE, KIMBERLEY LEORA Primary [...] CRUMP, DR CHIVO Courtney Consulting Unavailabl e TIMZENAS, DR MONTGOMERY Consulting Unavailable MISC, DR LOPEZ [...] Primary Care Provider UnavailKIMBERLEY Ashley Attending Unavailable JESSIE REID Referring Unavailable CLIFFORD VANN Attending Unavailab IZABEL Steiner Attending Unavailable KIMBERLEY GIBBONS Attending Unavailable TIM SAMUELS Attending Unavailable ELODIA OSCAR Attending Unavailable RICKY SOLITARIO Attending Unavailable RICKY SOLITARIO Attending Unavailable SOLITARIO GARCÍA Attending Unavailable SOLITARIO GARCÍA Attending Unavailable Yury ARGUELLO, Rosibel Laurent Attending Unavailable Yury ARGUELLO, Rosibel Laurent Attending Unavailable Yury ARGUELLO, Rosibel Laurent Attending Unavailable Yury ARGUELLO, Rosibel Laurent Attending Unavailable NICOLE TELLES Referring Unavailable NICOLE TELLES Referring Unavailable NICOLE TELLES Referring Unavailable Allergies Allergy Classification Reported Allergen(s) Allergy Type Date of Onset Reaction(s) Facility (9 sources) Ibuprofen; 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: [IBUPROFEN] Drug Allergy 0 Unknown, Diarrhea [facility] (20 sources) traMADol; 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: [TRAMADOL] Drug Allergy 9 Unknown, Nausea Only [facility] (1 source) Ibuprofen Drug Allergy [facility] (1 source) traMADol Drug Allergy 2 [facility] Repository Medications Current Medications Medication [...] tablet by mouth 0 12/01/2022 12/01/2023 Active [place]-3 Fatty Acids (FISH OIL) 1200 MG CAPS (1 source) [place]-3 Fatty Ac ids (FISH OIL) 1200 MG [...] Take 0.5 mg by mouth once daily. bkqau-at-4-peu-vvg-eiwm joey-ast 1,210-615-20-80 mg cap (4 sources) pzzfw-ru-0-dha-e pa-joey spho-ast 1,814-774-04-80 mg cap Take by mouth. 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] Onset: 10-19-2022 Episodic Other aftercare (2 sources) jail (current) use of non-steroidal anti-inflammatories (NSAID); 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: [jail (current) use of non-steroidal anti-inflammatories (nsaid)] Onset: [...] 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: [ARTHRODESIS STATUS] Onset: 07-28-2022 Episodic Other connective tissue disease (2 sources) Other bursitis of knee, unspecified knee; 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: [Other bursitis of knee, unspecified knee] Onset: 01-25-2024 Episodic Other gastrointestinal disorders (1 source) Flatulence, [...] Classification Problem Date Documented Da te Episodic/Chronic Nutritional deficiencies (2 sources) Cobalamin deficiency; 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: [...] conditions (not mental disorders or infectious disease) (8 sources) Elevated C-reactive protein; 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: [Elevated C-reactive [...] Test Name Value Interpretation Reference Range Facility Follow-Upon 01-25-2024 Follow-Up [id number] Lexi Garcia 1970 F Date Provider Department Center 01/25/2024 [facility] Heri Heal Family History Problem Relation Age of Onset COPD Mother Coronary artery disease Father 56 Family Status - Relation Status Age at Mother Alive Father Level of Service:77344 [place] OFFICE/OUTPATIENT ESTABLISHED LOW MDM 20 MIN (GC) Reason for Visit and Comments: Follow-up [327694] - 3 mth follow up [facility] Abstracton 11-30-2023 Abstract [id number] Lexi Garcia 1970 F Date Provider Department Center 11/30/2023 [facility] Heri Heal Family History Problem Relation Age of Onset COPD Mother Coronary artery disease Father 56 Family Status - Relation Status Age at Mother Alive Father [facility] 36on 11-22-2023 36 Last visit: 10/26/23 Next visit: 01/25/24 CBC: 12/12/21 BMP: 01/21/23 [facility] Refillon 11-20-2023 Refill [id number] Lexi Garcia 1970 Date Provider Department Center 11/20/2023 [facility] Heri Heal Family History Problem Relation Age of Onset COPD Mother Coronary artery disease Father 56 Family Status - Relation Status Age at Mother Alive Father Reason for Visit and Comments: Med Refill [[id number]] [facility] Office Visiton 11-02-2023 Follow-up visit [id number] Lexi Garcia 1970 F Date Provider Department Center 11/02/2023 Haroon-TIM [facility] Family History Problem Relation Age of Onset COPD Mother Coronary artery disease Father 56 Family Status - Relation Status Age at Mother Alive Father Level of Service:09816 [place] OFFICE/OUTPATIENT ESTABLISHED MOD MDM 30 MIN Reason for Visit and Comments: Atrial Fibrillation [80] - symptoms Normal [facility] Follow-Upon 10-26-2023 Follow-Up [id number] Lexi Garcia 1970 F Date Provider Department Center 10/26/2023 1214-RICKY [facility] Heri Heal Family History Problem Relation Age of Onset COPD Mother Coronary artery disease Father 56 Family Status - Relation Status Age at Mother Alive Father Level of Service:59525 [place] OFFICE/OUTPATIENT ESTABLISHED LOW MDM 20 MIN (GC) Reason for Visit and Comments: Follow-up [175753] Normal [facility] Celiac Disease Panelon 09-13 Gliadin Deam Pep IgA 1.9 U/mL Normal <7.0 [facility] Comment on above: Result Comment: CELIAC INTERPRETATION <7.0 Negative 7.0-10.0 Equivocal >10.0 Positive units: U/mL Performed By: #### C ELP #### [facility] [address] [place] [address] Railway Signalling Engineer: Talib Clements MD Gliadin Deam Pep IgG <0.4 Normal <7.0 [facility] Comment on above: Result Comment: CELIAC INTERPRETATION <7.0 Negative 7.0-10.0 Equivocal >10.0 Positive units: U/mL Performed By: #### C ELP #### [facility] [address] [place] [address] Railway Signalling Engineer: Talib Clements MD Tiss Transglutam IgA 0.4 U/mL Normal <7.0 [facility] Comment on above: Result Comment: CELIAC INTERPRETATION <7.0 Negative 7.0-10.0 Equivocal >10.0 Positive units: U/mL Performed By: #### C ELP #### [facility] [address] [place] [address] Railway Signalling Engineer: Talib Clements MD IgA [Mass/Vol] 184 mg/dL Normal 70-400 [facility] Comment on above: Performed By: #### C ELP #### [facility] [address] [place] [address] Railway Signalling Engineer: Talib Clements MD H. pylori Antigenon 09-14-19 24 H. pylori Antigen Specimen Description .FECES Direct Exam NEGATIVE Report Status FINAL 09/14/2023 [facility] Comment on above: Performed By: #### F HPY #### [facility] [address] [place] [address] Railway Signalling Engineer: Talib Clements MD [facility] [address] [place] [address] Railway Signalling Engineer: David Hough MD Orders Onlyon 08-05-2023 Orders Only [id number] Lexi Garcia 1970 F Date Provider Department Center 08/05/2023 [facility]ON [facility] Family History Problem Relation Age of Onset COPD Mother Coronary artery disease Father 56 Family Status - Relation Status Age at Mother Alive Father [facility] Follow-Upon 06-22-2023 Follow-Up [id number] Lexi Garcia 1970 Date Provider Department Center 06/22/2023 [facility] Heri Heal Family History Problem Relation Age of Onset COPD Mother Coronary artery disease Father 56 Family Status - Relation Status Age at Mother Alive Father Level of Service:69642 [place] OFFICE/OUTPATIENT ESTABLISHED MOD MDM 30 MIN () Reason for Visit and Comments: Follow-up [628290] - Normal [facility] DEXA BONE DENSITYon 05-11-20 23 [...] Not Available Office Visiton 04-27-2023 Follow-up visit [id number] Lexi Garcia 1970 F Date Provider Department Center 04/27/2023 [facility] Heri Heal Family History Problem Relation Age of Onset COPD Mother Coronary artery disease Father 56 Family Status - Relation Status Age at Mother Alive Father Level of Service:85100 [place] OFFICE/OUTPATIENT NEW MODERATE MDM 45-59 MINUTES (GC) Reason for Visit and Comments: 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 Family History Problem Relation Age of Onset COPD Mother Coronary artery disease Father 56 Family Status - Relation Status Age at Mother Alive Father Normal [facility] 36on 03-31-2023 36 Patient calls for information regarding her diagnosis. I let her know I sent a new mychart code so she can establish mychart and view her visit information there Normal [facility] Office Visiton 02-10-2023 Follow-up visit [id number] Lexi Garcia 1970 F Date Provider Department Center 02/10/2023 ANDRADEELODIA CARD [facility] Family History Problem Relation Age of Onset COPD Mother Coronary artery disease Father 56 Family Status - Relation Status Age at Mother Alive Father Level of Service:09624 [place] OFFICE/OUTPATIENT ESTABLISHED MOD MDM 30 MIN Reason for Visit and Comments: Follow-up [[id number]] - Pt is here for f/u heart cath Normal [facility] CBC AUTO DIFFon 10-07-2022 BASO # 0.0 103/ul Normal 0.0-0.1 [facility] Comment on above: Performed By: #### C BC #### [facility] [address] [place] [address] Dr. Donna Cantrell Basophils/100 WBC (Bld) 0.5 % Normal 0.2-2.0 [facility] Comment on above: Performed By: #### C BC #### [facility] [address] [place] [address] Dr. Donna Cantrell EO # 0.0 103/ul Normal 0.0-0.7 [facility] Comment on above: Performed By: #### C BC #### [facility] [address] [place] [address] Dr. Donna Cantrell Eosinophils/100 WBC (Bld) 0.0 % Critically low 0.9-7.0 [facility] Comment on above: Performed By: #### C BC #### [facility] [address] [address] [address] Donna Cantrell Erythrocyte distribution width (RBC) [Ratio] 13.6 % Normal 11.0-15.0 [facility] Comment on above: Performed By: #### C BC #### [facility] [address] [place] [address] Dr. Donna Cantrell Hematocrit (Bld) [Volume fraction] 42.0 % Normal 36.0-48.0 [facility] Comment on above: Performed By: #### C BC #### [facility] [address] [place] [address] Dr. Donna Cantrell Hemoglobin (Bld) [Mass/Vol] 14.4 g/dL Normal 12.0-16.0 [facility] Comment on above: Performed By: #### C BC #### [facility] [address] [place] [address] Dr. Donna Cantrell IG # 0.06 10e3/ul Critically high 0.00-0.03 [facility] Comment on above: Performed By: #### C BC #### [facility] [address] [place] [address] Dr. Donna Cantrell IG % 0.8 % Critically high 0.0-0.5 [facility] Comment on above: Performed By: #### C BC #### [facility] [address] [place] [address] Dr. Donna Cantrell LYMPH # 2.5 103/ul Normal 1.2-3.8 [facility] Comment on above: Performed By: #### C BC #### [facility] [address] [place] [address] Dr. Donna Cantrell Lymphocytes/100 WBC (Bld) 30.8 % Normal 20.5-60.0 [facility] Comment on above: Performed By: #### C BC #### [facility] [address] [place] [address] Dr. Donna Cantrell MANUAL DIFF REQ NO Normal [facility] Comment on above: Performed By: #### C BC #### [facility] [address] [place] [address] Dr. Donna Cantrell MCH (RBC) [Entitic mass] 30.3 pg Normal 26.7-34.0 [facility] Comment on above: Performed By: #### C BC #### [facility] [address] [place] [address] Dr. Donna Cantrell MCHC (RBC) [Mass/Vol] 34.3 g/dL Normal 29.9-35.2 [facility] Comment on above: Performed By: #### C BC #### [facility] [address] [place] [address] Dr. Donna Cantrell MCV (RBC) [Entitic vol] 88.2 fL Normal 81.0-99.0 [facility] Comment on above: Performed By: #### C BC #### [facility] [address] [place] [address] Dr. Donna Cantrell MONO # 0.5 103/ul Normal 0.3-0.8 [facility] Comment on above: Performed By: #### C BC #### [facility] [address] [place] [address] Dr. Donna Cantrell Monocytes/100 WBC (Bld) 6.4 % Normal 1.7-12.0 [facility] Comment on above: Performed By: #### C BC #### [facility] [address] [place] [address] Dr. Donna Cantrell NEUT # 4.9 103/ul Normal 1.4-6.5 [facility] Comment on above: Performed By: #### C BC #### [facility] [address] [place] [address] Dr. Donna Cantrell Neutrophils/100 WBC (Bld) 61.5 % Normal 43.0-75.0 [facility] Comment on above: Performed By: #### C BC #### [facility] [address] [place] [address] Dr. Donna Cantrell Platelet mean volume (Bld) [Entitic vol] 9.9 fL Normal 9.5-13.5 [facility] Comment on above: Performed By: #### C BC #### [facility] [address] [place] [address] Dr. Donna Cantrell PLT 234 103/ul Normal 150-450 [facility] Comment on above: Performed By: #### C BC #### [facility] [address] [place] [address] Dr. Donna Cantrell RBC 4.76 106/ul Normal 4.20-5.40 [facility] Comment on above: Performed By: #### C BC #### [facility] [address] [place] [address] Dr. Donna Cantrell WBC 8.0 103/ul Normal 4.0-11.0 [facility] Comment on above: Performed By: #### C BC #### [facility] [address] [address] [address] Donna Cantrell PROF CHEM 8 (BAS METB)on Anion gap [Moles/Vol] 13.9 mmol/L Normal [facility] Comment on above: Performed By: #### B MP #### [facility] [address] [address] [address] Donna Cantrell Calcium [Mass/Vol] 8.9 mg/dL Normal 8.5-10.1 [facility] Comment on above: Performed By: #### B MP #### [facility] [address] [place] [address] Dr. Donna Cantrell Chloride [Moles/Vol] 104 mmol/L Normal 98-107 [facility] Comment on above: Performed By: #### B MP #### [facility] [address] [place] [address] Dr. Donna Cantrell CO2 [Moles/Vol] 26.3 mmol/L Normal 21.0-32.0 [facility] Comment on above: Performed By: #### B MP #### [facility] [address] [place] [address] Dr. Donna Cantrell Creatinine [Mass/Vol] 0.91 mg/dL Normal 0.55-1.02 [facility] Comment on above: Performed By: #### B MP #### [facility] [address] [place] [address] Dr. Donna Cantrell EGFR-AF [place] >60 Normal >=60 [facility] Comment on above: Performed By: #### B MP #### [facility] [address] [place] [address] Dr. Donna Cantrell EGFR-NON AF [place] >60 Normal >=60 [facility] Comment on above: Performed By: #### B MP #### [facility] [address] [place] [address] Dr. Donna Cantrell Glucose [Mass/Vol] 127 mg/dL Critically high 74-106 [facility] Comment on above: Performed By: #### B MP #### [facility] [address] [address] [address] Donna Cantrell Potassium [Moles/Vol] 4.2 mmol/L Normal 3.5-5.1 [facility] Comment on above: Performed By: #### B MP #### [facility] [address] [address] [address] Donna Cantrell Sodium [Moles/Vol] 140 mmol/L Normal 136-145 [facility] Comment on above: Performed By: #### B MP #### [facility] [address] [address] [address] Donna Cantrell Urea nitrogen [Mass/Vol] 15.0 mg/dL Normal 7.0-18.0 [facility] Comment on above: Performed By: #### B MP #### [facility] [address] [address] [address] Donna Cantrell Urea nitrogen/Creatinine [Mass ratio] 16.5 mg/mg Normal [facility] Comment on above: Performed By: #### B MP #### [facility] [address] [address] [address] Donna Cantrell PROTIMEon 10-07-2022 INR Coag (PPP) [Relative time] {INR} Normal [facility] Comment on above: Performed By: #### B LTM #### [facility] [address] [place] [address] Dr. Donna Cantrell INR GUIDELINES SEE BELOW Normal [facility] Comment on above: Result Comment: SHIRA RED INR: 2.0 - 3.0 CONDITIONS NOT LISTED BELOW 2.5 - 3.5 FOR PROSTHETIC HEART VALVE REPLACEMENT 2.5 - 3.5 RECURRENT THROMBOSIS Performed By: #### B LTM #### [facility] [address] [address] [address] Donna Cantrlel PT Coag (PPP) [Time] 9.7 s Normal 9.0-11.6 [facility] Comment on above: Performed By: #### B LTM #### [facility] [address] [address] [address] Donna Cantrell PTTon 10-07-2022 aPTT Coag (Bld) [Time] 29.6 s Normal 22.3-36.2 [facility] Comment on above: Performed By: #### B LTM #### [facility] [address] [address] [address] Donna Cantrell SCREENING MAMMOGRAM W/AJ, BILATERAL*on [...] VERY IMPORTANT TO YOUR HEALTH. THE CURRENT [place] [employer] GUIDELINES RECOMMENDS ANNUAL MAMMOGRAPHY BEGINNING AT AGE 40 THIS FACILITY USES A REMINDER SYSTEM TO ENSURE ALL PATIENTS RECEIVE REMINDER NOTIFICATIONS AT THE APPROPRIATE TIME BASED ON THE RECOMMENDATIONS OF THIS EXAM. Report reported and signed by Eder Barraza on 07/01/2022 1545 Normal [facility] Office Manager XR Shoulder Complete Right*o n 07-01-2022 [...] by Eder Barraza on 07/02/2022 0746 Normal [facility] Office Manager XR Spine Lumbar Complete w/F jama AND [place] 07-01-2022 XR Spine Lumbar Complete w/Flex AND [...] by Eder Barraza on 07/02/2022 0744 Normal [facility] Office Manager CNPPearl 12-17-2021 CNPN Telephone (AMARJIT) JOSHUALEXI ([id number]) 1970 F Date Time Provider Department 12/17/21 GAYLE WASHINGTON During your visit today, we recorded the following information about you: Gayle Washington MD 12/17/2021 2:54 PM Signed Please Call patient if MyChart note not read to review results/released to My Chart if tests completed at [facility]: Mildly low vitamin D- increase over [...] PO Daily January 07, 2021 7:15am - jijhu-ly-4-dha-epa-joey spho-ast 1,589-240-91-80 mg cap Take by mouth. - PNV [...] - Estradiol (more content not included)... Normal [facility] BLEEDING TIMEon 12-16-2021 BLEEDING TIME 7.0 min Normal 1.0-8.0 [facility] Comment on above: Result Comment: test done by Selam Almodovar Performed By: #### B LT #### [facility] [address] [address] [address] Donna Cantrell 25([place])D3 [facility] 25-hydroxyvitamin D3 [Mass/Vol] 29.6 ng/mL Low 31.0-80.0 [facility] Comment on above: Order Comment: Speci men Type: BLOOD SPECIMEN Ordering Facility: [facility] Address: [address] [place] [id number] Result Comment: Clas sification of 25 [place] Vitamin D status: Deficiency/Insufficiency: < or = 30 ng/ml. Sufficiency/Optimal Levels: 31-80 ng/mL Toxicity: > 100 ng/mL. Test performed by chemiluminescent immunoassay. Performed By: #### 1 989-3 #### [facility] CLIA [id number] [address] [place] [address] [place] CBC panel Auto (Bld)on 12-12 Erythrocyte distribution width (RBC) [Ratio] 14.4 % Normal 11.5-15.0 [facility] Comment on above: Order Comment: Speci men Type: BLOOD SPECIMEN Ordering Facility: [facility] Address: [address] [place] [address] Performed By: #### 5 8410-2 #### [facility] CLIA [id number] [address] [place] [address] [place] Hematocrit (Bld) [Volume fraction] 45.2 % Normal 36.0-46.0 [facility] Comment on above: Order Comment: Speci men Type: BLOOD SPECIMEN Ordering Facility: [facility] Address: [address] [place] [address] Performed By: #### 5 8410-2 #### [facility] CLIA [id number] [address] [place] [address] [place] Hemoglobin (Bld) [Mass/Vol] 14.8 g/dL Normal 11.5-15.5 [facility] Comment on above: Order Comment: Speci men Type: BLOOD SPECIMEN Ordering Facility: [facility] Address: [address] [place] [address] Performed By: #### 5 8410-2 #### [facility] CLIA [id number] [address] [place] [address] [place] MCH (RBC) [Entitic mass] 29.7 pg Normal 26.0-34.0 [facility] Comment on above: Order Comment: Speci men Type: BLOOD SPECIMEN Ordering Facility: [facility] Address: [address] [place], [place] [id number] Performed By: #### 5 8410-2 #### [facility] CLIA [id number] [address] [place] [address] STATES [facility] MCHC (RBC) [Mass/Vol] 32.7 g/dL Normal 30.5-36.0 [facility] Comment on above: Order Comment: Speci men Type: BLOOD SPECIMEN Ordering Facility: [facility] Address: [address] [place], [place] [id number] Performed By: #### 5 8410-2 #### [facility] CLIA [id number] [address] [place] [address] [place] MCV (RBC) [Entitic vol] 90.8 fL Normal 80.0-100.0 [facility] Comment on above: Order Comment: Speci men Type: BLOOD SPECIMEN Ordering Facility: [facility] Address: [address] [place], [place] [id number] Performed By: #### 5 8410-2 #### [facility] CLIA [id number] [address] [place] [address] [place] Nucleated RBC (Bld) [#/Vol] 10*3/uL Normal <0.01 [facility] Comment on above: Order Comment: Speci men Type: BLOOD SPECIMEN Ordering Facility: [facility] Address: [address] [place], [place] [id number] Performed By: #### 5 8410-2 #### [facility] CLIA [id number] [address] [place] [address] [place] Platelet mean volume (Bld) [Entitic vol] 10.7 fL Normal 9.0-12.7 [facility] Comment on above: Order Comment: Speci men Type: BLOOD SPECIMEN Ordering Facility: [facility] Address: [address] [place], [place] [id number] Performed By: #### 5 8410-2 #### [facility] CLIA [id number] [address] [place] [address] [place] Platelets (Bld) [#/Vol] 259 10*3/uL Normal 150-400 [facility] Comment on above: Order Comment: Speci men Type: BLOOD SPECIMEN Ordering Facility: [facility] Address: [address] [place] [address] Performed By: #### 5 8410-2 #### [facility] CLIA [id number] [address] [place] [address] [place] RBC (Bld) [#/Vol] 4.98 10*6/uL Normal 3.90-5.20 [facility] Comment on above: Order Comment: Speci men Type: BLOOD SPECIMEN Ordering Facility: [facility] Address: [address] [place] [address] Performed By: #### 5 8410-2 #### [facility] CLIA [id number] [address] [place] [address] [place] WBC (Bld) [#/Vol] 9.25 10*3/uL Normal 3.70-11.00 [facility] Comment on above: Order Comment: Speci men Type: BLOOD SPECIMEN Ordering Facility: [facility] Address: [address] [place] [address] Performed By: #### 5 8410-2 #### [facility] IA [id number] [address] [place] [address] [place] CNOVon 12-12-2021 CNOV Office Visit (AMARJIT ) LEXI [id number]) 1970 F Date Time Provider Department 12/12/21 [...] improved with mobic, see ortho/pain clinic for intermediate pain recommendations/inject ions, prn acetaminophen, start prn heat/ice/otc arthritis creams, low impact weightbearing exercise as tolerated, avoid aggravating triggers,supportive care, start flexeril/notify office if not tolerated, improved with mobic, see ortho/pain clinic for intermediate pain recommendations/inject ions, prn acetaminophen, start prn heat/ice/otc arthritis creams, low impact weightbearing exercise as tolerated, avoid aggravating triggers, June 04, 2021 SUBJECTIVE Ms. Garcia is a 51 year old female who presents for joint pain eval. 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 Normal [facility] CRP SerPl-mCncon 12-12-2021 CRP [Mass/Vol] 1.4 mg/dL High <0.9 [facility] Comment on above: Order Comment: Speci tai Type: BLOOD SPECIMEN Ordering Facility: [facility] Address: [address] [place] [address] Performed By: #### 1 988-5, 2131-9, 59564-1, 308-1 #### [facility] CLIA [id number] [address] [place] [address] [place] [facility] Comprehensive metabolic 2000 panelon 12-12-2021 Albumin [Mass/Vol] 4.2 g/dL Normal 3.9-4.9 [facility] Comment on above: Order Comment: Speci men Type: BLOOD SPECIMEN Ordering Facility: [facility] Address: [address] [place], [place] [id number] Performed By: #### 1 988-5, 213-9, 88748-5, 308-1 #### [facility] CLIA [id number] [address] [place] [address] [place] ALP [Catalytic activity/Vol] 140 U/L High 34-123 [facility] Comment on above: Order Comment: Speci men Type: BLOOD SPECIMEN Ordering Facility: [facility] Address: [address] [place], [place] [id number] Performed By: #### 1 988-5, 9, 66879-3, 3083- #### [facility] CLIA [id number] [address] [place] [address] [place] ALT [Catalytic activity/Vol] 23 U/L Normal 7-38 [facility] Comment on above: Order Comment: Speci men Type: BLOOD SPECIMEN Ordering Facility: [facility] Address: [address] [place], [place] [address] Performed By: #### 1 988-5, 9, 52115-5, 3083- #### [facility] CLIA [id number] [address] [place] [address] [place] Anion gap [Moles/Vol] 10 mmol/L Normal 9-18 [facility] Comment on above: Order Comment: Speci men Type: BLOOD SPECIMEN Ordering Facility: [facility] Address: [address] [place], [place] [address] Performed By: #### 1 988-5, 2132-03, 76649-8, 3083- #### [facility] CLIA [id number] [address] [place] [address] [place] AST [Catalytic activity/Vol] 24 U/L Normal 13-35 [facility] Comment on above: Order Comment: Speci men Type: BLOOD SPECIMEN Ordering Facility: [facility] Address: [address] [place], [place] [address] Performed By: #### 1 988-5, 9, 02688-4, 3083- #### [facility] CLIA [id number] [address] [place] [address] [place] Bilirubin [Mass/Vol] mg/dL Low 0.2-1.3 [facility] Comment on above: Order Comment: Speci men Type: BLOOD SPECIMEN Ordering Facility: [facility] Address: [address] [place], [place] [phone] Performed By: #### 1 988-5, 2132-03, , 3083- #### [facility] CLIA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 #### P T ####[facility] [place] [phone] PT Coag (PPP) [Time] 13.1 s Normal 12.3-14.9 [facility] Comment on above: Performed By: #### P T ####[facility] [place] [phone] Type and Screen Capture 3 sc rn cellon 06-18-2020 Type and Screen Capture 3 scrn cell PATIENT: JOSHUA Doss LOC: [facility] BILL# : [id number] : 1970 SEX: F ORDERED BY: TEENA Lowe ORDERED : 06/18/2020 15:07 COLLECTED: 06/18/2020 15:36 ORDER : [id number] RECEIVED : 06/18/2020 15:36 Second, confirmatory specimen needed to satisfy Group [employer] policy. TEST NAME RESULT UNITS RANGES ABN FL ST ABORH Capture O POS F Antibody 3 Cell Scrn Captu NEG F Normal [facility] Comment on above: Performed By: #### T S3C #### [facility] [address] [place] [address] XR SPINE ENTIRE (2-3 VIEWS)o n 06-18-2020 [...] Ash Horta MD 06/19/20 Final result Normal [facility] FLUORO FOR SURGICAL PROCEDUR ESon 05-09-2020 FLUORO [...] Maximiliano Rachel MD 05/09/20 Final result Normal [facility] COVID-19, NAAon 05-05-2020 COVID-19, BELLE Not Detected Normal Not Detect [facility] Comment on above: Result Comment: This nucleic acid amplification test was developed and its performance characteristics determined by [employer]. Nucleic acid amplification tests include PCR and [...] detected) result in this assay. Performed at: [facility] [address] [facility], [place] [id number] Railway Signalling Engineer: Altagracia Quiñonez MD, Phone: [phone] Performed By: #### I RCOV ####[facility] [place] [phone] Basic Metabolic Panelon 10-3 0-2020 Anion gap [Moles/Vol] 12 mmol/L Normal 9-15 [facility] Comment on above: Performed By: #### B MP #### [facility] [address] [place] [address] Calcium [Mass/Vol] 10.5 mg/dL Critically high 8.5-9.9 [facility] Comment on above: Performed By: #### B MP #### [facility] [address] [place] [address] Chloride [Moles/Vol] 98 mmol/L Normal 95-107 [facility] Comment on above: Performed By: #### B MP #### [facility] [address] [place] [address] CO2 [Moles/Vol] 27 mmol/L Normal 20-31 [facility] Comment on above: Performed By: #### B MP #### [facility] [address] [place] [address] Creatinine [Mass/Vol] 0.82 mg/dL Normal 0.50-0.90 [facility] Comment on above: Performed By: #### B MP #### [facility] [address] [place] [address] GFR/1.73 sq M predicted among blacks MDRD (S/P/Bld) [Vol rate/Area] mL/min/{1.73_m2} Normal >60 [facility] Comment on above: Result Comment: >60 mL/min/1.73m2 EGFR, calc. for ages 18 and older using the MDRD formula (not corrected for weight), is valid for stable renal function. Performed By: #### B MP #### [facility] [address] [place] [address] GFR/1.73 sq M.predicted MDRD (S/P/Bld) [Vol rate/Area] mL/min/{1.73_m2} Normal >60 [facility] Comment on above: Result Comment: >60 mL/min/1.73m2 EGFR, calc. for ages 18 and older using the MDRD formula (not corrected for weight), is valid for stable renal function. Performed By: #### B MP #### [facility] [address] [place] [address] Glucose [Mass/Vol] 84 mg/dL Normal 70-99 [facility] Comment on above: Performed By: #### B MP #### [facility] [address] [place] [address] Potassium [Moles/Vol] 4.6 mmol/L Normal 3.4-4.9 [facility] Comment on above: Performed By: #### B MP #### [facility] [address] [place] [address] Sodium [Moles/Vol] 137 mmol/L Normal 135-144 [facility] Comment on above: Performed By: #### B MP #### [facility] [address] [place] [address] Urea nitrogen [Mass/Vol] 31 mg/dL Critically high 6-20 [facility] Comment on above: Performed By: #### B MP #### [facility] [address] [place] [address] CBC With Platelet No Differe ntialon 05-03-2020 Erythrocyte distribution width (RBC) [Ratio] 14.3 % Normal 11.5-14.5 [facility] Comment on above: Performed By: #### C BCND #### [facility] [address] [place] [address] Hematocrit (Bld) [Volume fraction] 41.3 % Normal 37.0-47.0 [facility] Comment on above: Performed By: #### C BCND #### [facility] [address] [place] [address] Hemoglobin (Bld) [Mass/Vol] 13.6 g/dL Normal 12.0-16.0 [facility] Comment on above: Performed By: #### C BCND #### [facility] [address] [place] [address] MCH (RBC) [Entitic mass] 30.7 pg Normal 27.0-31.3 [facility] Comment on above: Performed By: #### C BCND #### [facility] [address] [place] [address] MCHC (RBC) [Mass/Vol] 33.0 % Normal 33.0-37.0 [facility] Comment on above: Performed By: #### C BCND #### [facility] [address] [place] [address] MCV (RBC) [Entitic vol] 92.9 fL Normal 82.0-100.0 [facility] Comment on above: Performed By: #### C BCND #### [facility] [address] [place] [address] Platelets (Bld) [#/Vol] 241 10*3/uL Normal 130-400 [facility] Comment on above: Performed By: #### C BCND #### [facility] [address] [place] [address] RBC (Bld) [#/Vol] 4.44 10*6/uL Normal 4.20-5.40 [facility] Comment on above: Performed By: #### C BCND #### [facility] [address] [place] [address] WBC (Bld) [#/Vol] 11.0 10*3/uL Critically high 4.8-10.8 [facility] Comment on above: Performed By: #### C BCND #### [facility] [address] [place] [address] COVID-19, NAAon 05-03-2020 Source Swab Anterior nares Normal [facility] Comment on above: Performed By: #### I RCOV ####[facility] [place] [phone] Partial Thromboplastin Timeo n 05-03-2020 aPTT Coag (Bld) [Time] 31.3 s Normal 24.4-36.8 [facility] Comment on above: Performed By: #### P TT #### [facility] [address] [facility] [address] Prothrombin Timeon 0 INR Coag (PPP) [Relative time] 0.9 {INR} Normal [facility] Comment on above: Performed By: #### P T #### [facility] [address] [facility] [address] PT Coag (PPP) [Time] 11.9 s Low 12.3-14.9 [facility] Comment on above: Performed By: #### P T #### [facility] [address] [facility] [address] Type and Screen Capture 3 sc rn cellon 05-03-2020 Type and Screen Capture 3 scrn cell PATIENT: JOSHUA Doss LOC: [facility] BILL# : [id number] : 1970 SEX: F ORDERED BY: STEPHNAIE Harrison ORDERED : 05/03/2020 14:14 COLLECTED: 05/03/2020 14:14 ORDER : [id number] RECEIVED : 05/03/2020 19:43 TEST NAME RESULT UNITS RANGES ABN FL ST ABORH Capture O POS F Antibody 3 Cell Scrn Captu NEG F Normal [facility] Comment on above: Performed By: #### T S3C #### [facility] [address] [place] [address] Established Visit (Orthopaed ic Surgery)on 04-26-2020 Established [...] biceps. No pain with resisted elbow flexion. Life Skills Educator strength 5/5 Elbow flexion 5/5. Shoulder abduction [...] Chiara Espinosa PA-C Department of Orthopaedic Surgery [facility] Dictation performed with the use of voice recognition software. Syntax and grammatical errors may exist. Active Problems Problems Shoulder pain (719.41) (M25.519) Signatures Electronically signed by : Chiara Espinosa PA-C; Apr 26 2020 3:56PM EST (Author) [facility] Initial Visit (Orthopaedic S urgery)on 04-17-2020 Initial Visit (Orthopaedic Surgery) Diagnoses/Problems Assessed Shoulder pain (719.41) (M25.519) Patient Discussion/Summary Patient has right shoulder pain of uncertain origin. Exam today is suggestive of subacromial origin of pain. MRI scan shows tendinopathy but not an obvious tear. I recommended having her MRI scans evaluated by the musculoskeletal radiologist at [facility] I will call the patient back [...] her light touch sensation is grossly intact. Life Skills Educator strength is 5/5 elbow flexion 5/5 shoulder [...] 97.52 kg Gayle Washington MD Work Phone: [facility] 12-12-2021 10:43-0400 Diastolic blood pressure 87 mm[Hg] Gayle Washington MD Work Phone: [facility] 12-12-2021 10:43-0400 Heart rate 88 /min Gayle Washington MD Work Phone: [facility] 12-12-2021 10:43-0400 Systolic blood pressure 125 mm[Hg] Gayle Washington MD Work Phone: [facility] 10-14-2021 10:30-0400 Diastolic blood pressure 80 mm[Hg] Emmett Brunner Other [facility] Other 10-14-2021 10:30-0400 SaO2% (BldA) [Mass fraction] 98 % Emmett Brunner Other [facility] Other 10-14-2021 10:30-0400 Systolic blood pressure 130 mm[Hg] Emmett Brunner Other [facility] Other 07-01-2021 15:30-0500 Body weight 94.62 kg Letty Wesley Other [facility] Other 07-01-2021 15:30-0500 Diastolic blood pressure 78 mm[Hg] Letty Wesley Other [facility] Other 07-01-2021 15:30-0500 Respiratory rate 18 /min Letty Wesley Other [facility] Other 07-01-2021 15:30-0500 SaO2% (BldA) [Mass fraction] 98 % Letty Wesley Other [facility] Other 07-01-2021 15:30-0500 Systolic blood pressure 118 mm[Hg] Letty Wesley Other [facility] Other 06-18-2021 15:45-0500 Diastolic blood pressure 90 mm[Hg] Emmett Kannan Other [facility] Other 06-18-2021 15:45-0500 SaO2% (BldA) [Mass fraction] 97 % Emmett Kannan Other [facility] Other 06-18-2021 15:45-0500 Systolic blood pressure 122 mm[Hg] Emmett Kannan Other [facility] Other 05-15-2021 17:30-0500 Body weight 92.53 kg Emmettarmani Brunner Other [facility] Other 05-15-2021 17:30-0500 Diastolic blood pressure 80 mm[Hg] Emmett Kannan Other [facility] Other 05-15-2021 17:30-0500 Systolic blood pressure 130 mm[Hg] Emmett Kannan Other [facility] Other 04-02-2021 14:30-0400 Body weight 92.63 kg Emmettarmani Brunner Other [facility] Other 04-02-2021 14:30-0400 Diastolic blood pressure 88 mm[Hg] Emmett Kannan Other [facility] Other 04-02-2021 14:30-0400 SaO2% (BldA) [Mass fraction] 98 % Emmett Kannan Other [facility] Other 04-02-2021 14:30-0400 Systolic blood pressure 140 mm[Hg] Emmett Kannan Other [facility] [employer] Other Encounters Encounter Date Encounter Type Care Provider Facility Start: 01-25-2024 End: 01-25-2024 ambulatory [facility] Start: 01-24-2024 End: 01-24-2024 ambulatory Rosibel Cotton MD Facility: [facility] Start: 01-12-2024 End: 01-12-2024 ambulatory [facility]ICO[facility] TELL[facility] Start: 01-12-2024 Encounter for other preprocedural examination [facility] Start: 12-20-2023 End: 12-20-2023 ambulatory Rosibel Cotton MD Facility: [facility] Start: 11-02-2023 End: 11-02-2023 ambulatory [facility] Start: 10-29-2023 End: 10-29-2023 ambulatory IZABEL LARA Not Available Start: 10-28-2023 End: 10-28-2023 ambulatory CLIFFORD VANN Not Available Start: 10-26-2023 End: 10-26-2023 ambulatory [facility] Start: 10-25-2023 End: 10-25-2023 ambulatory Rosibel Cotton MD Facility: [facility] Start: 09-20-2023 End: 09-20-2023 ambulatory Rosibel Cotton MD Facility: [facility] Start: 09-13-2023 End: 09-13-2023 Subsequent hospital visit by physician [facility] Comment on above: Flatulence, eructati on and gas pain Start: 09-13-2023 End: 09-13-2023 ambulatory NICOLE TELLES [facility] Start: 09-13-2023 Encounter for other preprocedural examination NICOLE R [facility] Start: 07-26-2023 End: 07-26-2023 ambulatory KIMBERELY GIBBONS Not Available Start: 06-22-2023 End: 06-22-2023 ambulatory [facility] Start: 06-18-2023 End: 06-18-2023 ambulatory KIMBERLEY GIBBONS Not Available Start: 05-11-2023 End: 05-12-2023 ambulatory JESSIE REID Not Available Start: 04-27-2023 End: 04-27-2023 ambulatory [facility] Start: 04-07-2023 ambulatory Gayle Washington MD Work Phone: Rheumatology Comment on above: Fax info Start: 02-10-2023 End: 02-10-2023 ambulatory ELODIA [facility] Start: 10-16-2022 Encounter for preprocedural cardiovascular examination DR ULISES TIM [facility] Start: 10-16-2022 Encounter for preprocedural laboratory examination DR ULISES TIM [facility] Start: 10-13-2022 End: 10-13-[address] ULISES [...] Start: 01-22-2022 End: 01-23-[address] RACHEL Quiñonez Facility:H1 Start: 01-01-2022 End: 01-02-2022 ambulatory BEN MONROE . Facility:[facility]1 Start: 12-17-2021 Telephone encounter Gayle jeffries MD Work Phone: Rheumatology Comment on above: Results Start: 12-16-2021 End: 12-16-[address] RACHEL STOCK . Facility:[facility]1 Start: 12-12-2021 Telephone encounter Emmett Brunner [facility] Start: 12-12-2021 End: 12-13-2021 ambulatory KIMBERLEY GIBBONS [facility] Other Start: 12-12-2021 End: 12-12-2021 Patient encounter [...] 10-29-2021 Chart Update Cristobal miller Work Phone: [facility] Work Phone: Start: 10-14-2021 End: 10-14-2021 ambulatory Emmett Brunner Other [facility] Other Start: 10-14-2021 Patient encounter procedure Emmett Brunner [facility] Start: 09-23-2021 End: 09-23-2021 ambulatory Emmett Brunner Other [facility] Other Start: 09-23-2021 Telephone encounter Emmett Brunner [facility] Start: 07-01-2021 End: 07-01-2021 ambulatory Letty Olson Other [facility] Other Start: 07-01-2021 Office outpatient vi sit 25 minutes Letty Olson [facility] Start: 06-26-2021 (Procedure) Short Emmett Brunner [facility] Start: 06-26-2021 End: 06-26-2021 ambulatory Emmett Brunner Other [facility] Other Start: 06-18-2021 End: 06-18-2021 ambulatory Emmett Brunner Other [facility] Other Start: 06-18-2021 Office outpatient vi sit 25 minutes Emmett Brunner [facility] Start: 06-18-2021 Telephone encounter Emmett Brunner [facility] Start: 06-04-2021 End: 06-04-2021 Subsequent hospital visit by physician Christina [facility] Comment on above: Chronic hip pain, bi lateral [M25.551, M25.552, G89.29] Start: 05-21-2021 (Procedure) Chaz Brunner [facility] Start: 05-21-2021 End: 05-21-2021 ambulatory Emmett Brunner Other [facility] Other Start: 05-15-2021 End: 05-15-2021 ambulatory Emmett Brunner Other [facility] Other Start: 05-15-2021 Office outpatient vi sit 25 minutes Emmett Brunner [facility] Start: 04-30-2021 (Procedure) Short Emmett Brunner [facility] Start: 04-16-2021 (Procedure) Short Emmett Brunner [facility] Start: 04-02-2021 Office outpatient vi sit 25 minutes Emmett Kannan [facility] Start: 02-21-2021 Office outpatient vi sit 15 minutes Cristobal Tmoas Work Phone: [id number] Work Phone: Start: 06-25-2020 End: 06-27-2020 Evaluation and management of inpatient FEMI López [facility] Start: 06-25-2020 End: 06-28-2020 Patient encounter procedure CRISTOBAL [facility] Start: 06-18-2020 End: 06-23-2020 Patient encounter procedure CRISTOBAL [facility] Start: 05-09-2020 End: 05-09-2020 Patient encounter procedure FEMI López FELICIA [facility] Procedures Date Procedure Procedure Detail Performing Clinician Start: 09-13-2023 Assay of gammaglobul in iga igd igg igm each Nicole Herndon Baljit PRODUCTION CONSULTANT - CABIN CLEANER Work Phone: Start: 06-04-2021 Radex hips bilateral with pelvis minimum 5 views Gayle Washington MD Work Phone: Start: 06-17-2020 Mammography Gayle jeffries MD Work Phone: Start: 06-09-2018 Lipid 1996 panel - S willian or Plasma Gayle Washington MD Work Phone: Plan of Treatment Date Care Activity Detail Author Start: 12-12-2024 DIABETES SCREEN DIABETES SCREEN [facility] Start: 12-12-2024 Diabetes Screening Diabetes Screening [facility] Start: 07-01-2024 Screening for malignant neoplasm of breast Breast cancer screen [facility] Start: 02-03-2024 End: 02-03-2024 Admission to same day surgery center 02/03/2024 8:45 AM EDT - 02/03/2024 9:05 AM EDT Surgery [facility] OR [address] [place] [address] Nancy Durand MD [address] [place] [address] ESOPHAGOGASTRODUODENOSCOPY [facility] OR Comment on above: ESOPHAGOGASTRODUODENOSCOPY Start: 02-03-2024 End: 02-03-2024 Esophagogastroduodenoscopy transoral diagnostic ESOPHAGOGASTRODUODENOSCOPY Chronic GERD 02/03/2024 8:45 AM EDT [facility] Start: 02-03-2024 Subsequent hospital visit by physician 02/03/2024 8:45 AM EDT Hospital Encounter [facility] OR [address] [id number] Nancy Durand MD [address] [place], [place] [id number] [facility] Start: 07-05-2023 Annual Wellness Visit (Medicare Advantage) Annual Wellness Visit (Medicare Advantage) [facility] Start: 06-09-2023 Lipid 1996 panel - Serum or Plasma Lipid Screening [facility] Start: 06-09-2023 LIPID SCREEN LIPID SCREEN [facility] Start: 03-05-2023 COVID-19 Vaccine () COVID-19 Vaccine () [facility] Start: 03-05-2023 Influenza vaccination [facility] Start: 02-02-2023 Influenza vaccination Flu vaccine (#1) [facility] Start: 07-05-2022 DEPRESSION ASSESSMENT DEPRESSION ASSESSMENT [facility] Start: 03-19-2022 End: 12-17-2022 25-hydroxyvitamin D3 [Mass/volume] in Serum or Plasma VITAMIN D 25 HYDROXY Lab Routine Vitamin D deficiency Expected: 03/19/2022 (Approximate), Expires: 12/17/2022 [facility] Work Phone: Comment on above: Expected: 03/19/2022 (Approximate), Expi res: 12/17/2022 Start: 03-05-2022 Influenza vaccination [facility] Start: 08-21-2021 COVID-19 VACCINE (2 - Booster for Barbara series) COVID-19 VACCINE (2 - Booster for Barbara series) [facility] Start: 07-05-2021 DEPRESSION ASSESSMENT DEPRESSION ASSESSMENT [facility] Start: 06-17-2021 Mammography [facility] Start: 2018 Shingles vaccine (1 of 2) Shingles vaccine (1 of 2) [facility] [employer] [facility] Start: 2018 SHINGRIX VACCINE (1 of 2) SHINGRIX VACCINE (1 of 2) [facility] Start: 2013 COLOGUARD (FIT-DNA) COLOGUARD (FIT-DNA) [facility] Start: 2013 Colonoscopy COLONOSCOPY [facility] Start: 2013 COLORECTAL CANCER SCREENING COLORECTAL CANCER SCREENING [facility] Start: [address] COLONOGRAPHY [facility] Start: 2013 FECAL OCCULT BLOOD FECAL OCCULT BLOOD [facility] Start: 2013 Screening for malignant neoplasm of colon [facility] [employer] Start: 2013 SIGMOIDOSCOPY SIGMOIDOSCOPY [facility] Start: 1998 HPV TESTING HPV TESTING [facility] Start: 1989 PAP TESTING PAP TESTING [facility] Start: 1987 DTaP/Tdap/Td vaccine (1 - Tdap) DTaP/Tdap/Td vaccine (1 - Tdap) [employer] [facility] Start: 1987 Urine microalbumin profile [facility] Start: 1986 Hepatitis C screening Hepatitis C screen [employer] Start: 1986 HIV SCREENING HIV SCREENING [facility] Start: 1983 HIV screening HIV screen [facility] Start: 1980 Adult depression screening assessment DEPRESSION SCREENING [facility] Start: 1980 Depression Screen Depression Screen [employer] Start: 1978 Lipid panel Lipids [facility] Start: 1974 PNEUMOCOCCAL (1 - PCV) PNEUMOCOCCAL (1 - PCV) [facility] Start: 1974 Pneumococcal 0-64 years Vaccine (1 - PCV) Pneumococcal 0-64 years Vaccine (1 - PCV) [facility] Start: 1974 Pneumococcal vaccination Pneumococcal Vaccine (1 - PCV) [facility] Start: 1968 HEPATITIS B (1 of 3 - 3-dose series) HEPATITIS B (1 of 3 - 3-dose series) [facility] Start: 1968 Hepatitis B Vaccine (1 of 3 - 3-dose series) Hepatitis B Vaccine (1 of 3 - 3-dose series) [facility] Celiac Disease Panel Celiac Dise ase Panel Lab Routine Flatulence, eructation and gas pain 09/13/2023 4:20 PM EDT [employer] End: 09-13-2023 H. pylori antigen [facility] Comment on above: Once for 1 Occurrences starting 09/13/19 24 until 09/13/2023 End: 09-13-2023 H. Pylori Antigen, Stool H. Pylori Antigen, Stool Lab Routine Flatulence, eructation and gas pain 1 Occurrences starting 09/13/2023 until 09/13/2023 [employer] Work Phone: Comment on above: 1 Occurrences starting 09/13/2023 until 09/13/2023 Immunizations Immunization Date Immunization Notes Care Provider Sabina brumfield 04-06-2019 influenza, injectabl e, quadrivalent, preservative free Cristobal Tomas Work Phone: [facility] [address] Work Phone: 04-06-2019 influenza virus vaccine, unspecified formulation Gayle Washington MD Work Phone: [facility] 05-15-2016 seasonal influenza, intradermal, preservative free Cristobal Tomas Work Phone: [employer] Payers Date Payer Category Payer Unknown 2021 Unknown ARNOLD AR[employer]OLD [place] X [id number] 2021-Present [phone] [address] [address] [place] [address] HMO [id number] 2020 Private Health Insurance [facility] CHO[employer] [id number] 2020-2021 [address] [address] [place] [address] PPO [id number] 2018 Unknown [id number] [id number] 2017 Unknown [id number] 1968 Unknown [id number] 2.16.840.1.016923.3.579.2 .182 1968 Unknown [id number] 2.16.840.1.560564.3.579.2 .182 1968 Unknown [id number] 2.16.840.1.900824.3.579.2 .182 1968 Unknown [id number] 2.16.840.1.675576.3.579.2 .182 1968 Unknown [id number] 2.16.840.1.617085.3.579.2 .182 1968 Unknown [id number] 2.16.840.1.418005.3.579.2 .593 1968 Unknown [id number] 2.16.840.1.895902.3.579.2 .593 1968 Unknown [id number] 2.16.840.1.248329.3.579.2 .593 1968 Unknown [id number] 2.16.840.1.049615.3.579.2 .593 1968 Unknown [id number] 2.16.840.1.411145.3.579.2 .593 1968 Unknown [id number] 2.16.840.1.125434.3.579.2 .593 1968 Unknown [id number] 2.16.840.1.963067.3.579.2 .593 1968 Unknown [id number] 2.16.840.1.877476.3.579.2 .593 1968 Unknown [id number] 2.16.840.1.041490.3.579.2 .593 1968 Unknown [id number] 2.16.840.1.090812.3.579.2 .593 1968 Unknown [id number] 2.16.840.1.880077.3.579.2 .593 1968 Unknown [id number] 2.16.840.1.492770.3.579.2 .1259 1968 Unknown [id number] 2.16.840.1.026875.3.579.2 .1259 1968 Unknown [id number] 2.16.840.1.692276.3.579.2 .9 1968 Unknown [id number] 2.16.840.1.505472.3.579.2 .9 1968 Unknown [id number] 2.16.840.1.709223.3.579.2 .9 1968 Unknown [id number] 2.16.840.1.930182.3.579.2 .9 1968 Unknown [id number] 2.16.840.1.611118.3.579.2 .9 1968 Unknown [id number] 2.16.840.1.350729.3.579.2 .196 1968 Unknown [id number] 2.16.840.1.463743.3.579.2 .196 1968 Unknown [id number] 2.16.840.1.609422.3.579.2 .196 1968 Unknown [id number] 2.16.840.1.781531.3.579.2 .196 1968 Unknown [id number] 2.16.840.1.488828.3.579.2 .173 1968 Unknown [id number] 2.16.840.1.000463.3.579.2 .173 1968 Unknown [id number] 2.16.840.1.337537.3.579.2 .173 Social History Date Type Detail Facility Start: 06-04-2021 End: 09-08-2023 Tobacco smoking status NHIS Smokes tobacco daily [facility] History of tobacco use Cigarette Smoker [facility] Start: 05-03-2020 End: 06-04-2021 Cigarettes smoked current (pack per day) - Reported 1 [facility] Start: 06-04-2021 End: 09-08-2023 Tobacco use and exposure Smokeless tobacco non-user [facility] Start: 12-12-2021 End: 09-08-2023 Alcohol intake Current drinker of alcohol (finding) [facility] Start: 06-04-2021 History SDOH Alcohol Comment rarely. [facility] Start: 1970 Sex Assigned At Not on file [facility] Start: 11-29-2021 End: 12-09-2021 Exposure to SARS-CoV-2 (event) Unable to assess [facility] Start: 05-03-2020 End: 06-05-2021 Sex Assigned At [facility] Start: 05-05-2021 End: 06-04-2021 Exposure to SARS-CoV-2 (event) Not sure [facility] National Score (1-100), lower number is lower risk 95 [facility] (I/We) worried whether (my/our) food would run out before (I/we) got money to buy more. Never true [facility] [employer] Start: 09-08-2023 Tobacco Comment intermittently since 15 [employer] Start: 05-03-2020 Alcohol Comment hardly ever [employer] [facility] Procedure Code Equipment Code Equipment Original Text Equipment Identifier Dates Impl Alena Spine R michael Ti35 Mm 55 Mm [id number] Start: 06-25-2020 Graft Spnl W11xh [id number] Corticocancellous Lord [place]ad - [id number] Start: 05-09-2020 Plate Spnl L28mm Antr Cerv 1 Lev Translational [place] Acp [id number] Start: 05-09-2020 Screw Spnl L13mm Dia4mm Ant Cerv [facility] Ang Compr [place] Acp [id number] Start: 05-09-2020 Connector Spnl C rss Lo Prof Adj Reline-O 5.5 X 45-65 Mm [id number] Start: 06-25-2020 Screw Spnl Dia5. 5mm Opn Tulip Roselyn Reline [id number] Start: 06-25-2020 Graft Bne Sub 30 cc 1.7-10mm Canc Chip Morselized Frz Dry - [id number] Start: 06-25-2020 Graft Bne Sub 5m l Mtrx Cellular Osteocel + - [id number] Start: 06-25-2020 Spacer Spnl L W1 [id number] 4deg Post Lum Intbdy Fus Lord [id number] Start: 06-25-2020 Screw Spnl L50mm Dia7.5mm Post Thoracolumbosacral Polyax 2s [id number] Start: 06-25-2020 Screw Spnl L55mm Od6mm 2s Polyax Reline O [id number] Start: 06-25-2020 Alena Spnl Lordtc 5.5x40 Mm Ti Reline-O [id number] Start: 06-25-2020 Clinical Notes 04-02-2021 to 01-25-2024 Telephone Encounter - Gayle Washington MD - 04/07/2023 1:34 PM EDTTelephone Encounter - Nadine Bruce LPN - 04/07/2023 12:34 PM EDTTelephone Encounter - Gayle Washington MD - 05/18/2022 5:45 PM EST Note Date & Type Note Facility 01-25-2024 Note Attestation signed by Jessie Reid MD at 01/25/2024 12:13 PM I personally saw and examined the patient on the same date of service as resident/fellow . I discussed the findings and therapeutic plan with the resident/fellow . I agree with the documentation, except for any edits/updates below. Teaching Physician's Revisions Symptoms are controlled on current meds, was able to decrease Celebrex to 200 BID [facility] Follow-up Patient Visit Subjective Chief Complaint: Follow-up (3 mth follow up) Lexi Garcia is an 53 y.o. female [...] follow up. Medication regimen: Celebrex 400 mg in AM and 200 mg in PM (taking 200 BID), Flexeril 10 mg BID PRN, Desvenlafaxine 100 mg every day, OTC Tylenol, Percocet 5-325 mg Q4H PRN (only PRN, seldomly used, leftover from surgery in 2019). Vitamin D and calcium supplementation. Patient presents for follow-up today. At last visit, Celebrex was decreased due to worse GERD control --- she is now actually taking 200 mg BID, she tried TID but her legs were numb at bedtime. She is following with GI, plan for EGD soon. She follows with Pain Management for interventions which helped decrease her limitation with activities -- ns/p R neck nerve ablation on 01/24/24 with plan for L side in February 2024 with noticeable relief in neck pain so far. Patient is tolerating medications well, without significant side effects and with some symptom control on current regimen. Today, patient reports pain that is 4/10 in severity, was rated at 6 last visit. Localized to knees (kneeling yesterday a lot, makes them sore, pes anserine bursitis not as bothersome), low back (MRI soon, shooting/stabbing pain radiates to R hip), hands (L had IV 01/24/24 for procedure), wrists and forearms with hx of CTS s/p surgery with numbness in hands and decreased cardiovascular invasive specialist strength, R>L shoulders, neck (better since ablation). AM stiffness lasts 1-2 hrs (was 2-3 hr prior),, on average daily. Denies joint erythema, swelling, warmth. Comprehensive History: Patient Active Problem List Diagnosis Chest pain, atypical Benign essential HTN HOFFMAN (dyspnea on exertion) Fibromyalgia Elevated d-dimer Mixed hyperlipidemia GERD without esophagitis Orthopnea Sleep disturbances Abnormal nuclear stress test Unstable angina (CMS/HCC) Coronary artery disease involving [place] coronary artery of [place] heart without angina pectoris Degenerative joint disease [...] 10 mg by mouth in the morning. amoxicillin-pot clavulanate (Augmentin) 875-125 mg tablet aspirin 81 mg EC tablet Take 81 mg by mouth in the morning. atorvastatin (Lipitor) 80 mg ta (more content not included)... [facility] 11-02-2023 Note ecg [facility] 11-02-2023 Note Cardiovascular Medic in[facility] SUBJECTIVE Chief Complaint Patient presents with [...] Unstable angina (CMS/HCC) Coronary artery disease involving [place] coronary artery of [place] heart without angina pectoris Degenerative joint disease [...] , Rfl: o (more content not included)... [facility] 10-26-2023 Note Attestation signed by [...] will decrease Celebrex due to worsening heartburn [facility] Follow-up Patient Visit Subjective [...] surgery with numbness in hands and decreased cardiovascular invasive specialist strength, R>L shoulders, neck. AM stiffness lasts 1-2 hrs (was 2-3 hr prior), on average daily. Denies joint erythema, swelling, warmth. Comprehensive History: Patient Active Problem List Diagnosis Chest pain, atypical Benign essential HTN HOFFMAN (dyspnea on exertion) Fibromyalgia Elevated d-dimer Mixed hyperlipidemia GERD without esophagitis Orthopnea Sleep disturbances Abnormal nuclear stress test Unstable angina (CMS/HCC) Coronary artery disease involving [place] coronary artery of [place] heart without angina pectoris Degenerative joint disease [...] 400 mg capsul (more content not included)... [facility] 10-26-2023 Note PT STATE SHE HAS BEE N DIZZY RECENTLY PT STATES TAKES MEDS TO MANAGE DEPRESSION SX [facility] 06-22-2023 Note Attestation signed by [...] subchondral sclerosis noted on fist [facility] joints [facility] Follow-up Patient Visit Subjective [...] disturbances Abnormal nuclear stress test Unstable angina ([facility]) Coronary artery disease involving [place] coronary artery of [place] heart without angina pectoris Degenerative joint disease [...] Chronic pain disorder Depression Factor V Leiden ([facility]) Fibromyalgia, primary GERD (gastroesophageal reflux disease) Hyperlipidemia [...] the morning. aspirin (more content not included)... [facility] 04-27-2023 Note Attestation signed by [...] history of diffuse pain presented today to [facility], previously followed by [facility] Exam was remarkable for diffuse tenderness consistent with fibromyalgia, she reports episodic swelling in hands and feet, no synovitis was noted on exam today Will do further workup as below We discussed risks of NSAIDs including but not limited to: kidney impairment, GI ulcer/bleed, CV risk, etc. 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 She formerly saw [facility] with last visit in December 2021 per available records. 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 Reports sometimes she has swelling, redness, [...] Patient Active Proble (more content not included)... [facility] 04-07-2023 Note Reviewed recent lipi [...] 163 from 128 last draw Elodia Oscar COTTON HEADER Division of Cardiology, [facility] Ph- [phone] Pager- [phone] Email- [email or web address] 04-07-2023 Miscellaneous Notes Notify patient medication [...] faxed with confirmation. documented in this encounter [facility] 02-10-2023 Note Coronary artery dise ase is stable Continue GDMT- ASA, lipitor, toprol continue risk factor modifications- heart healthy diet, regular exercise as tolerated and continue all medications. Pt to have repeat lipid and lft levels drawn soon [facility] 02-10-2023 Note D/W pt that may need to see GI for further evaluation for other etiology of her chest pain and may be r/t GERD [facility] 02-10-2023 Note Currently stable [facility] 02-10-2023 Note Currently denied chest pain [facility] 02-10-2023 Note Continue lipitor 80 mg, lipid level well controlled currently [facility] 02-10-2023 Note Hypertension is stab le and well controlled at home Continue norvasc, toprol [facility] 02-10-2023 Note [facility] CARDIOLOGY PROGR [...] stenosis. LCX - (more content not included)... [facility] 02-10-2023 Note Review of Systems All other systems reviewed and are negative. [facility] 10-13-2022 Note OPERATIVE NOTE OPERATION [...] left cheek was prepped with Betadine. A Franklin tip Bovie was then used to make [...] the recovery room in good condition. [facility] 10-07-2022 Note EXAM: XR CHEST 2 V HISTORY: Pre-surgery evaluation COMPARISON: None. TECHNIQUE: PA and lateral views of the chest. FINDINGS: The cardiomediastinal silhouette is normal. No focal consolidation is identified. There is no pneumothorax. No pleural effusion is noted. The osseous structures are intact. IMPRESSION: No acute cardiopulmonary process. Electronically authenticated by: JOSIAH WILKS Date: 2022-10-07 11:27 [facility] 07-23-2022 Note CONSULTATION CONSULTATION DATE: [...] Patient does agree with this plan. [facility] 06-11-2022 Note CONSULTATION CONSULTATION DATE: [...] q.h.s. 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 [facility] 05-18-2022 Miscellaneous Notes Patient's request for medication is as follows: Requested Prescriptions Signed Prescriptions Disp Refills celecoxib (CELEBREX) 200 mg capsule 180 capsule 3 Sig: Take 1 capsule by mouth twice daily. Prescription(s) as above. Please process accordingly. Gayle Washington MD Expect Labst message sent to patient reminding her to [...] Lab Orders Expected Expires Ordered HLA-B27 PCR [[id number]] 06/19/21 06/18/22 06/18/21 Auth. provider: Gayle Washington MD Assoc. diagnoses: Elevated sedimentation rate VITAMIN D 25 HYDROXY [SQVITD] 03/19/22 12/17/22 12/17/21 Auth. provider: Gayle Washington MD Assoc. diagnoses: Vitamin D deficiency documented in this encounter [facility] 04-16-2022 Note CONSULTATION PROCEDURE DATE: [...] the clinic in three months' time. [facility] 04-09-2022 Note CONSULTATION CONSULTATION DATE: [...] to the clinic for her injection. [facility] 01-01-2022 Note CONSULTATION CONSULTATION DATE: 01/01/2022 This is a pleasant 51-year-old female returning to the clinic status post #2 bilateral MBB on C3, C4 and C5 that afforded her 80% relief for 5 days. She was recently at her plant accountant's and was diagnosed with fibromyalgia and she [...] be followed up in the clinic post-procedure. [facility] Signed and Approved by: BEN MONROE . 01/08/2022 10:22:00 [facility] 12-17-2021 Miscellaneous Notes Pt aware. Kamryn Luna [...] to My Chart if tests completed at [facility]: Mildly low vitamin D- increase over [...] superior labral tear; documented in this encounter [facility] 12-12-2021 Note HNO ID: [id number] Author: Gayle Washington MD Service: ? Author [...] office visit, flat ground knees give out. Giggzo 06/26/21. Feels safe at home. 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 clinic for intermediate pain recommendations/injections, prn acetaminophen, start prn heat/ice/otc arthritis creams, low impact weightbearing exercise as tolerated, avoid aggravating triggers,supportive care, start flexeril/notify office if not tolerated, improved with mobic, see ortho/pain clinic for intermediate pain recommendations/injections, prn acetaminophen, start prn heat/ice/otc [...] Urine or urethritis: no Renal/liver disease: no SERVICE LOSS CONTROL CONSULTANT/PNS/sz/cva/cancer disease: no HEME-Cytopenias/LAD/Clots: no Fevers: no Fatigue: [...] MEDICAL HISTORY: PMH (more content not included)... [place] [address]-10-2022 History of Present illness Narrative Face to [...] improved with mobic, see ortho/pain clinic for termite technician pain recommendations/injections, prn acetaminophen, start prn heat/ice/otc arthritis creams, low impact weightbearing exercise as tolerated, avoid aggravating triggers,supportive care, start flexeril/notify office if not tolerated, improved with mobic, see ortho/pain clinic for termite technician pain recommendations/injections, prn acetaminophen, start prn heat/ice/otc arthritis creams, low impact weightbearing exercise as tolerated, avoid aggravating triggers, June 04, 2021 SUBJECTIVE Ms. Garcia is a 51 year old female who presents for joint pain eval. Years of pain in R>L shoulders, neck, knees, hips, low back 2004 s/p C6/7 fusion 2017 s/p b/l [...] Urine or urethritis: no Renal/liver disease: no SERVICE LOSS CONTROL CONSULTANT/PNS/sz/cva/cancer disease: no HEME-Cytopenias/LAD/Clots: no Fevers: no Fatigue: [...] flat ground knees give out. COVID vaccine [employer] 06/26/21. Feels safe at home. Has enough food, supplies and medications. Overall uncomfortable but happy with rheum care. = supportive care, start celebrex/notify office if not tolerated, OFF mobic/initially improved with medication but now effect wore off, prn flexeril, see pain clinic for termite technician pain recommendations, see ortho/pain clinic for intermediate pain recommendations/injections, prn acetaminophen, start prn heat/ice/otc [...] to side effects OFF lyrica no response termite technician pain recommendations per primary care provider/pain clinic [...] video & audio (virtual) or phone or [id number] patient care, completing clinical documentation, obtaining and/or [...] Leora Gibbons DO documented in this encounter [facility] 12-12-2021 Instructions Gayle Washington MD [...] to side effects OFF lyrica no response intermediate pain recommendations per primary care provider/pain clinic nonfasting labs as scheduled Thank you. documented in this encounter [facility] 12-09-2021 Miscellaneous Notes Patient has been scheduled as requested for 12/12/21. Referral has been attached. I spoke with Ms. Garcia and she is aware of all of the appointment details. Nataliya Fernando PSS December 09, 2021 2:43 PM Patient calling to schedule follow up appt with Dr Washington no schedule pulling for [place] only [place]. Patient requesting call at [phone] Washington is still at [place]. Please advise. documented in this encounter [facility] 11-18-2021 Note PAIN MANAGEMENT CONS ULTATION CONSULTATION DATE: 11/18/2021 CHIEF COMPLAINT: Cervical pain. HISTORY OF PRESENT ILLNESS: This is a 51-year-old female who had, in the past, been seen by Dr. Brunner, Pain Management in [place], [place]. The patient had changed her insurances to [employer] and, as such, Dr. Brunner does not [...] like to proceed. CC: Kimberley Gibbons D.O. [facility] Signed and Approved by: DR RACHEL STOCK . 11/25/2021 12:22:00 [facility] 10-14-2021 Evaluation note Encounter Date Diagnosis Assessment [...] nerve block in the future if needed. [facility] Other 12-28-2021 Evaluation note* Encounter Date Diagnosis [...] right hip to further evaluate her pain. [facility] Other 12-15-2021 Evaluation note* Encounter Date Diagnosis [...] (ICD-10 - G89.29) Continue medications as prescribed [facility] Other 11-11-2021 Evaluation note* Encounter Date Diagnosis [...] (ICD-10 - G89.29) Continue medications as prescribed [facility] Other 09-29-2021 Evaluation note* Encounter Date Diagnosis [...] injection under ultrasound guidance in the future. [facility] Other Evaluation note* Diagnosis Secondary osteoarthritis of [...] Chronic pain syndrome documented in this encounter [facility] [employer] Other Evaluation note* Diagnosis Secondary osteoarthritis of multiple sites- Primary Osteoarthrosis involving, or with mention of more than one site, but not specified as generalized, multiple sites Vitamin D deficiency Unspecified vitamin D deficiency Fibromyalgia Mylagia and myositis, unspecified documented in this encounter [facility] note* Diagnosis Secondary osteoarthritis of multiple sites Osteoarthrosis involving, or with mention of more than one site, but not specified as generalized, multiple sites documented in this encounter [facility] note* Diagnosis Chronic hip pain, bilateral Chronic left shoulder pain Pain in joint, shoulder region Chronic pain of both knees Bilateral hand pain Pain in limb documented in this encounter [facility] note* Diagnosis Secondary osteoarthritis of multiple sites Osteoarthrosis involving, or with mention of more than one site, but not specified as generalized, multiple sites Cervicalgia Chronic bilateral low back pain with bilateral sciatica documented in this encounter [facility] note* Diagnosis Flatulence, eructation and gas pain Flatulence, eructation, and gas pain Chronic GERD documented in this [facility] general Narrative - Reported* Type Description Date Medical History allergies Medical History factor 5 blood disorder Medical History anxiety Medical History depression Medical History bipolar Medical History lumbar DDD Surgical History back surgery 06/2021 Surgical History neck surgery 05/2021 Hospitalization History see above [facility] Other History general Narrative - Reported* Type Description Date Medical History allergies Medical History factor 5 blood disorder Medical History anxiety Medical History depression Medical History bipolar Medical History lumbar DDD Medical History osteoarthritis of multiple joint s Surgical History back surgery 06/2021 Surgical History neck surgery 05/2021 Hospitalization History see above [facility] Other History of Present illness NarrativePatient has continued intermittent pain symptoms in her right shoulder she is remotely status post rotator cuff repair she had a follow-up MRI scan recently she would like to review with me today. She had a subacromial injection but it did not resolve all of her symptoms.[id number] Work Phone: Reason for referral (narrative)* Diagnostic Procedure Only (Routine) - Closed Specialty Diagnoses / Procedures Referred By Contac t Referred To Contact XR IMAGING Diagnoses Bilateral hand pain Procedures XR HAND GENERAL 3V PA/LAT/OBL BILATERAL X-RAY HAND MINIMUM 3 VIEWS Gayle Washington MD [address] [place] [address] Xr Imaging Referral ID Status Reason Start Date Expiration Date V isits Requested Visits Authorized [id number] Closed Auto-Generate d Referral 06/04/2021 07/04/2022 1 1 * Diagnostic Procedure Only (Routine) - Closed Specialty Diagnoses / Procedures Referred By Contac t Referred To Contact XR IMAGING Diagnoses Chronic pain of both knees Procedures XR KNEE GENERAL 4V AP BOTH/PA BOTH/LAT/MERC BILATERAL KNEE AP-WGT/L[place] [address] [place] [id number] Xr Imaging Referral ID Status Reason Start Date Expiration Date V isits Requested Visits Authorized [id number] Closed Auto-Generate d Referral 06/04/2021 07/04/2022 1 1 * Diagnostic Procedure Only (Routine) - Closed Specialty Diagnoses / Procedures Referred By Contac t Referred To Contact XR IMAGING Diagnoses Chronic left shoulder pain Procedures XR SHOULDER GENERAL 3V OR MORE AP/TRUE AP/OTHER LEFT X-RAY SHOULDER COMPLET MIN 2 VIEWS Gayle Washington MD [address] [place] [address] Xr Imaging Referral ID Status Reason Start Date Expiration Date V isits Requested Visits Authorized [id number] Closed Auto-Generate d Referral 06/04/2021 07/04/2022 1 1 * Diagnostic Procedure Only (Routine) - Closed Specialty Diagnoses / Procedures Referred By Contac t Referred To Contact XR IMAGING Diagnoses Chronic hip pain, bilateral Procedures XR HIP BILATERAL 5V PEL/AP/LAT EACH HIP RADEX HIPS BILATERAL WITH PELVIS MINIMUM 5 VIEWS Gayle Washington MD [address] [place] [address] Xr Imaging Referral ID Status Reason Start Date Expiration Date V isits Requested Visits Authorized [id number] Closed Auto-Generate d Referral 06/04/2021 07/04/2022 1 1 [facility] for visit Narrative* Diagnostic Procedure Only (Routine) - Closed Specialty Diagnoses / Procedures Referred By Contac t Referred To Contact XR IMAGING Diagnoses Bilateral hand pain Procedures XR HAND GENERAL 3V PA/LAT/OBL BILATERAL X-RAY HAND MINIMUM 3 VIEWS Gayle Washington MD [address] [place] [address] Xr Imaging Referral ID Status Reason Start Date Expiration Date V isits Requested Visits Authorized [id number] Closed Auto-Generate d Referral 06/04/2021 07/04/2022 1 1 [facility] Summary Purpose Family History No [...] MINUTES Gayle Washington MD [address] [place] [address] Referral ID Status Reason Start Date Expiration Date Visits Requested Visits Authorized [id number] Pending Review PCP Requested Referral 12/12/2021 12/12/2022 1 1 Additional Source Comments INFORMATION SOURCE (unrecogn ized section and content) DATE CREATED AUTHOR 06/20/2020 [facility] DATE CREATED AUTHOR AUTHOR'S ORGANIZ ATION 06/27/2020 [facility] DATE CREATED AUTHOR AUTHOR'S ORGANIZ ATION 12/01/2020 [facility] DATE CREATED AUTHOR AUTHOR'S ORGANIZ ATION 02/23/2021 [facility] DATE CREATED AUTHOR AUTHOR'S ORGANIZ ATION 02/23/2021 [employer] DATE CREATED AUTHOR AUTHOR'S ORGANIZ ATION 12/26/2021 [facility] DATE CREATED AUTHOR AUTHOR'S ORGANIZ ATION 07/02/2022 [facility] DATE CREATED AUTHOR AUTHOR'S ORGANIZ ATION 10/08/2022 [facility] DATE CREATED AUTHOR AUTHOR'S ORGANIZ ATION 10/20/2022 [facility] DATE CREATED AUTHOR AUTHOR'S ORGANIZ ATION 10/30/2023 [facility] EPIC DATE CREATED AUTHOR AUTHOR'S ORGANIZ ATION 01/27/2024 [facility] DATE CREATED AUTHOR AUTHOR'S ORGANIZ ATION 01/29/2024 [facility] DATE CREATED AUTHOR AUTHOR'S ORGANIZ ATION 02/02/2024 [facility] Source Comments (unrecognize d section and content) In the event this informatio n is protected by the Federal Confidentiality of Alcohol and Drug Abuse Patient Records regulations: The Federal rules restrict any use of the information to criminally investigate or prosecute any alcohol or drug abuse patient.[facility] the event this information is protected by the Federal Confidentiality of Alcohol and Drug Abuse Patient Records regulations: The Federal rules restrict any use of the information to criminally investigate or prosecute any alcohol or drug abuse patient.[facility] the event this information is protected by the Federal Confidentiality of Alcohol and Drug Abuse Patient Records regulations: The Federal rules restrict any use of the information to criminally investigate or prosecute any alcohol or drug abuse patient.[facility] the event this information is protected by the Federal Confidentiality of Alcohol and Drug Abuse Patient Records regulations: The Federal rules restrict any use of the information to criminally investigate or prosecute any alcohol or drug abuse patient.[facility] the event this information is protected by the Federal Confidentiality of Alcohol and Drug Abuse Patient Records regulations: The Federal rules restrict any use of the information to criminally investigate or prosecute any alcohol or drug abuse patient.[facility] the event this information is protected by the Federal Confidentiality of Alcohol and Drug Abuse Patient Records regulations: The Federal rules restrict any use of the information to criminally investigate or prosecute any alcohol or drug abuse patient.[facility] Reason for Visit (unrecogniz ed section and content) Reason Comments Follow Up Pain ongoing generalized pain. Specialty Diagnoses / Procedures Referred By Margarita t Referred To Contact RHEUMATOLOGY Diagnoses Follow Up Procedures OFFICE/OUTPATIENT ESTABLISHED MOD MDM 30-39 MIN Follow Up Gayle Washington MD [address] [facility] [place] [address] [facility] [address] [place] [address] Referral ID Status Reason Start Date Expiration Date Visits Requested Visits Authorized [id number] Waiting for Response OON/Self Pay Override Patient cleared - OON Required Payment Collected 12/08/2021 03/08/2022 1 1 Reason Comments Appointment Reason Comments Results Care Teams (unrecognized sec tion and content) Shaper Operator Relationship Specialty Start Date End Date Kimberley Gibbons, DO [address] [place] [address] PCP - General Family Practice 06/04/21 Shaper Operator Relationship Specialty Start Date End Date Kimberley Gibbons, DO [address] [place] [address] PCP - General Family Practice 06/04/21 Shaper Operator Relationship Specialty Start Date End Date Kimberley Gibbons, DO [address] [place] [address] PCP - General Family Medicine 06/04/21 Shaper Operator Relationship Specialty Start Date End Date Kimberley Gibbons, DO [address] [place] [address] PCP - General Family Medicine 06/04/21 Shaper Operator Relationship Specialty Start Date End Date EdwigeKimberley Leora, DO [address] [place], [place] [id number] PCP - General Family Medicine 06/04/21 Shaper Operator Relationship Specialty Start Date End Date Kimberley Gibbons DO [address] [place] [address] PCP - General Family Medicine 06/04/21 FOR [...] BE BASED ON THE PRIMARY CLINICAL RECORDS. [employer] [facility]. provides no warranty or guarantee of the accuracy or completeness of information in this document.
== END 2024-02-02 09:17 | disposition home or self-care (01) ==
LOC: MRI 09:16
PROVIDERS: Visit Provider Nurse Practitioner
DX: M48.061 Spinal stenosis, lumbar region without neurogenic claudication (principal); M51.36 Other intervertebral disc degeneration, lumbar region
CPT/HCPCS: 72158; A9575

== ENCOUNTER 2024-02-07 06:50 | Day surgery (SDC) | payer OTHER, SELFPAY ==
--- OUTSIDE RECORDS SUMMARY | 2024-02-07 06:54 | XMS_ITS | CCD ---
Author Organization [facility] Care Team Providers Care Fisher Purse Seine Name Role Phone GENOVEVA, CRISTOBAL F Primary Care Unavailable FELICIA, FEMI H. Attending Unavailable FELICIA, FEMI H. Referring Unavailable FELICIA, FEMI H. Referring Unavailable FELICIA, FEMI H. Admitting Unavailable GENOVEVA, CRISTOBAL F Primary Care Unavailable FELICIA, FEMI H. Attending Unavailable FELICIA, FEMI H. Admitting Unavailable GENOVEVA, CRISTOBAL F Primary Care Unavailable FELICIA, FEMI H. Attending Unavailable GENOVEVA, CRISTOBAL F Primary Care Unavailable FELICIA, FEMI H. Referring Unavailable GENOVEVA, CRISTOBAL F Primary Care Unavailable FELICIA, FEMI H. Referring Unavailable Genoveva, Cristobal F Unavailable Edwige DO, Kimberley Leora Primary Care Provider Emmett Brunner Unavailable Letty Olson Unavailable Edwige DO, Kimberley Leora Primary Care Provider [phone] EDWIGE, KIMBERLEY LEORA Referring Unavailable EDWIGE, KIMBERLEY [...] Admitting Unavailable MONROE ., BEN Consulting Unavailable FER .BEN Consulting [...] Admitting Unavailable ARTURO PINK Consulting Unavailable JOSIAH IWLKS Consulting Unavailable TIMMIS, DR MONTGOMERY Consulting Unavailable [...] Unavailable Kimberley Gibbons DO Primary Care Provider [phone] Unavailable Primary Care Provider UnavailKIMBERLEY Ashley Attending Unavailable FRANKLIN AYLeeann Referring Unavailable CLIFFORD VANN Attending Unavailab IZABEL Steiner Attending Unavailable KIMBERLEY GIBBONS Attending Unavailable TIM SAMUELS Attending Unavailable ELODIA OSCAR Attending Unavailable SOLITARIO GARCÍA Attending Unavailable RICKY SOLITARIO Attending Unavailable SOLITARIO GARCÍA Attending Unavailable SOLITARIO GARCÍA Attending Unavailable Yury ARGUELLO, Rosibel Laurent Attending Unavailable Yury ARGUELLO, Rosibel Laurent Attending Unavailable Yury ARGUELLO, Rosibel Laurent Attending Unavailable Yury ARGUELLO, Rosibel Laurent Attending Unavailable NICOLE TELLES Referring Unavailable NICOLE TELLES Referring Unavailable NANCY LUDWIG Attending Unavailable NANCY LUDWIG Admitting Unavailable NICOLE TELLES Referring Unavailable Allergies Allergy Classification Reported Allergen(s) Allergy Type Date of Onset Reaction(s) Facility (9 sources) Ibuprofen; 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: [IBUPROFEN] Drug Allergy 0 Unknown, Diarrhea [facility] (20 sources) traMADol; 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: [TRAMADOL] Drug Allergy 9 Unknown, Nausea Only [facility] (1 source) Ibuprofen Drug Allergy [facility] (1 source) traMADol Drug Allergy 2 [facility] Repository Medications Current Medications Medication Drug Class(es) [...] on above: Take 1 capsule by mo [facility] twice daily. Take 1 capsule by mo [facility] two times a day. clonazePAM 0.5 mg [...] daily. 0 Active take [address] [facility] every twenty-four hours Pristiq 100 MG 1 [...] tablet by mouth 0 12/01/2022 12/01/2023 Active Marblemount-3 Fatty Acids (FISH OIL) 1200 MG CAPS (1 source) Marblemount-3 Fatty Ac ids (FISH OIL) 1200 MG [...] tablet (19 sources) Muscle Relaxant Start: 10-06-19 End: 04-07-20 23 take 1-2 tablets by [...] (1 source) Provitamin D2 Compound Start: 06-06-20 End: 12-13-19 ergocalciferol 50,000 unit capsule (VITAMIN D2, DRISDOL) [...] Take 0.5 mg by mouth once daily. akobd-pq-0-ljk-pkw-mrcf joey-ast 1,987-349-28-80 mg cap (4 sources) kwygf-oi-6-dha-e pa-joey spho-ast 1,997-025-09-80 mg cap Take by mouth. 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 STOMACH, ANTRUM, BIOPSIES: - MILD CHRONIC AND FOCAL ACTIVE GASTRITIS. - HELICOBACTER PYLORI IMMUNOSTAIN (CONTROL APPROPRIATE) IS NEGATIVE FOR INFECTIOUS BACTERIA. B. DUODENUM, BULB, BIOPSIES: - NORMAL DUODENAL MUCOSA. C. GASTROESOPHAGEAL JUNCTION, BIOPSIES: - BENIGN GASTRIC MUCOSA WITH FOCAL INTESTINAL (GOBLET CELL) METAPLASIA AND MILD TO MODERATE CHRONIC INFLAMMATION. - BENIGN SQUAMOUS MUCOSA. - NEGATIVE FOR DYSPLASIA AND MALIGNANCY. Piyush Lozano M.D. Electronically Signed Out sls02/04/2024 Clinical Information Pre-Op Diagnosis: CHRONIC GERD Operative Findings: GASTRIC ANTRAL BIOPSIES; DUODENAL BULB; GE JUNCTION Operation Performed: ESOPHAGOGASTRODUODENOSCOPY kb Source of Specimen A: GASTRIC ANTRUM BIOPSY B: DUODENAL BULB C: GE JUNCTION BX Gross Description A. LEXI GARCIA, GASTRIC ANTRAL BIOPSIES Received in formalin are two rosado-white tissue fragments, 0.2 x 0.1 x 0.1 cm and 0.5 x 0.3 x 0.2 cm. Entirely 1cs. B. LEXI JOSE, DUODENAL BULB Received in formalin are four rosado-white tissue fragments from < 0.1 to 0.4 cm and are 0.9 x 0.2 x 0.2 cm in aggregate. Entirely 1cs. C. LEXI JOSE, GE JUNCTION Received in formalin are two rosado-white tissue fragments, < 0.1 cm and are 0.5 x 0.2 x 0.2 cm in aggregate. Entirely 1cs. jj tm David Hough M.D./kb2:02/03/2024 Microscopic Description A-C. Microscopic examination performed. Processing Lab: [address] [address] Interpretation Performed at [address] [address] SURGICAL PATHOLOGY CONSULTATION Patient Name: LEXI GARCIA Med Rec: [id number] [facility] ANATOMIC PATHOLOGY [address] [place] [id number] [facility] Follow-Upon 01-25-2024 Follow-Up [id number] Nikko Garcia 1970 Date Provider Department Center 01/25/2024 [facility] RHEUM Heri Heal Family History Problem Relation Age of Onset COPD Mother Coronary artery disease Father 56 Family Status - Relation Status Age at Mother Alive Father Level of Service:55246 [place] OFFICE/OUTPATIENT ESTABLISHED LOW MDM 20 MIN (GC) Reason for Visit and Comments: Follow-up [459582] - 3 mth follow up [facility] Abstracton 11-30-2023 Abstract [id number] Nikko Garcai 1970 Date Provider Department Center 11/30/2023 SVITLANA TORRES C RHEUM Heri Heal Family History Problem Relation Age of Onset COPD Mother Coronary artery disease Father 56 Family Status - Relation Status Age at Mother Alive Father [facility] 36on 11-22-2023 36 Last visit: 10/26/23 Next visit: 01/25/24 CBC: 12/12/21 BMP: 01/21/23 [facility] Refillon 11-20-2023 Refill [id number] Nikko Garcia 1970 Date Provider Department Center 11/20/2023 [facility] RHEUM Heri Heal Family History Problem Relation Age of Onset COPD Mother Coronary artery disease Father 56 Family Status - Relation Status Age at Mother Alive Father Reason for Visit and Comments: Med Refill [[id number]] Normal [facility] Office Visiton 11-02-2023 Follow-up visit [id number] JoseNikko eli 1970 F Date Provider Department Center 11/02/2023 TIM CORONEL ALYSA Lorenzana Family History Problem Relation Age of Onset COPD Mother Coronary artery disease Father 56 Family Status - Relation Status Age at Mother Alive Father Level of Service:89453 NC OFFICE/OUTPATIENT ESTABLISHED MOD MDM 30 MIN Reason for Visit and Comments: Atrial Fibrillation [80] - symptoms Normal [facility] Follow-Upon 10-26-2023 Follow-Up [id number] Nikko Garcia sreedhar 1970 F Date Provider Department Center 10/26/2023 [facility] RHEUM Heri Heal Family History Problem Relation Age of Onset COPD Mother Coronary artery disease Father 56 Family Status - Relation Status Age at Mother Alive Father Level of Service:28997 NC OFFICE/OUTPATIENT ESTABLISHED LOW MDM 20 MIN () Reason for Visit and Comments: Follow-up [[id number]] Normal [facility] Celiac Disease Panelon 09-13 Gliadin Deam Pep IgA 1.9 U/mL Normal <7.0 [facility] Comment on above: Result Comment: CELIAC INTERPRETATION <7.0 Negative 7.0-10.0 Equivocal >10.0 Positive units: U/mL Performed By: #### C ELP #### [facility] [address] [place], [place] [id number] Negative Spotter: Talib Clements MD Gliadin Deam Pep IgG <0.4 Normal <7.0 [facility] Comment on above: Result Comment: CELIAC INTERPRETATION <7.0 Negative 7.0-10.0 Equivocal >10.0 Positive units: U/mL Performed By: #### C ELP #### [employer] [address] [place], [place] [id number] Negative Spotter: Talib Clements MD Tiss Transglutam IgA 0.4 U/mL Normal <7.0 [facility] Comment on above: Result Comment: CELIAC INTERPRETATION <7.0 Negative 7.0-10.0 Equivocal >10.0 Positive units: U/mL Performed By: #### C ELP #### [facility] [address] [place] [address] Negative Spotter: Talib Clements MD IgA [Mass/Vol] 184 mg/dL Normal 70-400 [facility] Comment on above: Performed By: #### C ELP #### [facility] [address] [place], [place] [id number] Negative Spotter: Talib Clements MD H. pylori Antigenon 09-14-19 24 H. pylori Antigen Specimen Description .FECES Direct Exam NEGATIVE Report Status FINAL 09/14/2023 [facility] Comment on above: Performed By: #### F HPY #### [facility] [address] [place] [address] Negative Spotter: Talib Clements MD [facility] [address] [facility] [place] [address] Negative Spotter: David Hough MD Orders Onlyon 08-05-2023 Orders Only [id number] Nikko Garcia 1970 F Date Provider Department Center 08/05/2023 SHANON HSIEH ALYSA Lorenzana Family History Problem Relation Age of Onset COPD Mother Coronary artery disease Father 56 Family Status - Relation Status Age at Mother Alive Father [facility] Follow-Upon 06-22-2023 Follow-Up [id number] Nikko Garcia 1970 F Date Provider Department Center 06/22/2023 [facility] RHEUM Heri Heal Family History Problem Relation Age of Onset COPD Mother Coronary artery disease Father 56 Family Status - Relation Status Age at Mother Alive Father Level of Service:69203 NC OFFICE/OUTPATIENT ESTABLISHED MOD MDM 30 MIN () Reason for Visit and Comments: Follow-up [[id number]] - Normal [facility] DEXA BONE DENSITYon 05-11-20 DEXA BONE [...] Not Available Office Visiton 04-27-2023 Follow-up visit [id number] Nikko Garcia 1970 Date Provider Department Center 04/27/2023 [facility] RHEUM Heri Heal Family History Problem Relation Age of Onset COPD Mother Coronary artery disease Father 56 Family Status - Relation Status Age at Mother Alive Father Level of Service:01713 NC OFFICE/OUTPATIENT NEW MODERATE MDM 45-59 MINUTES (GC) 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 I let her know I sent a new mychart code so she can establish mychart and view her visit information there Normal [facility] Office Visiton 02-10-2023 Follow-up visit [id number] Nikko Garcia 1970 F Date Provider Department Center 02/10/2023 ELODIA ZAFAR CARD [facility] Family History Problem Relation Age of Onset COPD Mother Coronary artery disease Father 56 Family Status - Relation Status Age at Mother Alive Father Level of Service:17728 NC OFFICE/OUTPATIENT ESTABLISHED MOD MDM 30 MIN Reason for Visit and Comments: Follow-up [[id number]] - Pt is here for f/u heart cath [facility] CBC AUTO DIFFon 10-07-2022 BASO # 0.0 103/ul Normal 0.0-0.1 [facility] Comment on above: Performed By: #### C BC #### [facility] [address] [place] [address] Dr. Donna Cantrell Basophils/100 WBC (Bld) 0.5 % Normal 0.2-2.0 [facility] Comment on above: Performed By: #### C BC #### [facility] [address] [address] [address] Donna Cantrell EO # 0.0 103/ul Normal 0.0-0.7 [facility] Comment on above: Performed By: #### C BC #### [facility] [address] [address] [address] Donna Cantrell Eosinophils/100 WBC (Bld) 0.0 % Critically low 0.9-7.0 [facility] Comment on above: Performed By: #### C BC #### [facility] [address] [address] [address] Donna Cantrell Erythrocyte distribution width (RBC) [Ratio] 13.6 % Normal 11.0-15.0 [facility] Comment on above: Performed By: #### C BC #### [facility] [address] [place] [address] Dr. Donna Cantrell Hematocrit (Bld) [Volume fraction] 42.0 % Normal 36.0-48.0 [facility] Comment on above: Performed By: #### C BC #### [facility] [address] [address] [address] Donna Cantrell Hemoglobin (Bld) [Mass/Vol] 14.4 g/dL Normal 12.0-16.0 [facility] Comment on above: Performed By: #### C BC #### [facility] [address] [address] [address] Donna Cantrell IG # 0.06 10e3/ul Critically high 0.00-0.03 [facility] Comment on above: Performed By: #### C BC #### [facility] [address] [address] [address] Donna Cantrell IG % 0.8 % Critically high 0.0-0.5 [facility] Comment on above: Performed By: #### C BC #### [facility] [address] [address] [address] Donna Cantrell LYMPH # 2.5 103/ul Normal 1.2-3.8 [facility] Comment on above: Performed By: #### C BC #### [facility] [address] [address] [address] Donna Cantrell Lymphocytes/100 WBC (Bld) 30.8 % Normal 20.5-60.0 [facility] Comment on above: Performed By: #### C BC #### [facility] [address] [address] [address] Donna Cantrell MANUAL DIFF REQ NO Normal [facility] Comment on above: Performed By: #### C BC #### [facility] [address] [address] [address] Donna Cantrell MCH (RBC) [Entitic mass] 30.3 pg Normal 26.7-34.0 [facility] Comment on above: Performed By: #### C BC #### [facility] [address] [address] [address] Donna Cantrell MCHC (RBC) [Mass/Vol] 34.3 g/dL Normal 29.9-35.2 [facility] Comment on above: Performed By: #### C BC #### [facility] [address] [address] [address] Donna Cantrell MCV (RBC) [Entitic vol] 88.2 fL Normal 81.0-99.0 [facility] Comment on above: Performed By: #### C BC #### [facility] [address] [address] [address] Donna Cantrell MONO # 0.5 103/ul Normal 0.3-0.8 [facility] Comment on above: Performed By: #### C BC #### [facility] [address] [place] [address] Dr. Donna Cantrell Monocytes/100 WBC (Bld) 6.4 % Normal 1.7-12.0 [facility] Comment on above: Performed By: #### C BC #### [facility] [address] [place] [address] Dr. Donna Cantrell NEUT # 4.9 103/ul Normal 1.4-6.5 [facility] Comment on above: Performed By: #### C BC #### [facility] [address] [place] [address] Dr. Donna Cantrell Neutrophils/100 WBC (Bld) 61.5 % Normal 43.0-75.0 [facility] Comment on above: Performed By: #### C BC #### [facility] [address] [place] [address] Dr. Donna Cantrell Platelet mean volume (Bld) [Entitic vol] 9.9 fL Normal 9.5-13.5 [facility] Comment on above: Performed By: #### C BC #### [facility] [address] [place] [address] Dr. Donna Cantrell PLT 234 103/ul Normal 150-450 [facility] Comment on above: Performed By: #### C BC #### [facility] [address] [place] [address] Dr. Donna Cantrell RBC 4.76 106/ul Normal 4.20-5.40 [facility] Comment on above: Performed By: #### C BC #### [facility] [address] [address] [address] Donna Cantrell WBC 8.0 103/ul Normal 4.0-11.0 [facility] Comment on above: Performed By: #### C BC #### [facility] [address] [place] [address] Dr. Donna Cantrell PROF CHEM 8 (BAS METB)on Anion gap [Moles/Vol] 13.9 mmol/L Normal [facility] Comment on above: Performed By: #### B MP #### [facility] [address] [place] [address] Dr. Donna Cantrell Calcium [Mass/Vol] 8.9 mg/dL Normal 8.5-10.1 [facility] Comment on above: Performed By: #### B MP #### [facility] [address] [place] [address] Dr. Donna Cantrell Chloride [Moles/Vol] 104 mmol/L Normal 98-107 [facility] Comment on above: Performed By: #### B MP #### [facility] [address] [place] [address] Dr. Donna Cantrell CO2 [Moles/Vol] 26.3 mmol/L Normal 21.0-32.0 [facility] Comment on above: Performed By: #### B MP #### [facility] [address] [place] [address] Dr. Donna Cantrell Creatinine [Mass/Vol] 0.91 mg/dL Normal 0.55-1.02 [facility] Comment on above: Performed By: #### B MP #### [facility] [address] [place] [address] Dr. Donna Cantrell EGFR-AF DOMINICAN >60 Normal >=60 [facility] Comment on above: Performed By: #### B MP #### [facility] [address] [place] [address] Dr. Donna Cantrell EGFR-NON AF DOMINICAN >60 Normal >=60 [facility] Comment on above: Performed By: #### B MP #### [facility] [address] [place] [address] Dr. Donna Cantrell Glucose [Mass/Vol] 127 mg/dL Critically high 74-106 [facility] Comment on above: Performed By: #### B MP #### [facility] [address] [address] [address] Donna Cantrell Potassium [Moles/Vol] 4.2 mmol/L Normal 3.5-5.1 [facility] Comment on above: Performed By: #### B MP #### [facility] [address] [address] [address] Donna Cantrell Sodium [Moles/Vol] 140 mmol/L Normal 136-145 [facility] Comment on above: Performed By: #### B MP #### [facility] [address] [place] [address] Dr. Donna Cantrell Urea nitrogen [Mass/Vol] 15.0 mg/dL Normal 7.0-18.0 [facility] Comment on above: Performed By: #### B MP #### [facility] [address] [address] [address] Donna Cantrell Urea nitrogen/Creatini ne [Mass ratio] 16.5 mg/mg Normal [facility] Comment on above: Performed By: #### B MP #### [facility] [address] [place] [address] Dr. Donna Cantrell PROTIMEon 10-07-2022 INR Coag (PPP) [Relative time] {INR} Normal [facility] Comment on above: Performed By: #### B LTM #### [facility] [address] [place] [address] Dr. Donna Cantrell INR GUIDELINES SEE BELOW Normal [facility] Comment on above: Result Comment: SHIRA RED INR: 2.0 - 3.0 CONDITIONS NOT LISTED BELOW 2.5 - 3.5 FOR PROSTHETIC HEART VALVE REPLACEMENT 2.5 - 3.5 RECURRENT THROMBOSIS Performed By: #### B LTM #### [facility] [address] [place] [address] Dr. Donna Cnatrell PT Coag (PPP) [Time] 9.7 s Normal 9.0-11.6 [facility] Comment on above: Performed By: #### B LTM #### [facility] [address] [place], [place] [address] Dr. Donna Cantrell PTTon 10-07-2022 aPTT Coag (Bld) [Time] 29.6 s Normal 22.3-36.2 [facility] Comment on above: Performed By: #### B LTM #### [facility] [address] [place], [place] [address] Dr. Donna Cantrell SCREENING MAMMOGRAM W/AJ, BILATERAL*on [...] VERY IMPORTANT TO YOUR HEALTH. THE CURRENT [place] [employer] GUIDELINES RECOMMENDS ANNUAL MAMMOGRAPHY BEGINNING AT AGE 40 THIS FACILITY USES A REMINDER SYSTEM TO ENSURE ALL PATIENTS RECEIVE REMINDER NOTIFICATIONS AT THE APPROPRIATE TIME BASED ON THE RECOMMENDATIONS OF THIS EXAM. Report reported and signed by Eder Barraza on 07/01/2022 1545 Normal [facility] [employer] Relationship Manager XR Shoulder Complete Right*o n 07-01-2022 [...] by Eder Barraza on 07/02/2022 0746 Normal [facility] [employer] Relationship Manager XR Spine Lumbar Complete w/F jama AND [place] 07-01-2022 XR Spine Lumbar Complete w/Flex AND [...] by Eder Barraza on 07/02/2022 0744 Normal [facility] [employer] Relationship Manager Casey 12-17-2021 CNPN Telephone (AMARJIT) LEXI GARCIA ([id number]) 1970 F Date Time Provider Department 12/17/21 GAYLE WASHINGTON During your visit today, we recorded the following information about you: Gayle Washington MD 12/17/2021 2:54 PM Signed Please Call patient if MyChart note not read to review results/released to My Chart if tests completed at [facility]: Mildly low vitamin D- increase over [...] PO Daily January 07, 2021 7:15am - italx-qs-3-spm-fcz-txiyoxx-as t 1,283-169-85-80 mg cap Take by mouth. - PNV [...] - Estradiol (more content not included)... Normal [facility] BLEEDING TIMEon 12-16-2021 BLEEDING TIME 7.0 min Normal 1.0-8.0 [facility] Comment on above: Result Comment: test done by Selam Almodovar Performed By: #### B LT #### [facility] [address] [place] [address] Dr. Donna Cantrell 25(OH)D3 SerPl-mCncon 2021 25-hydroxyvitamin D3 [Mass/Vol] 29.6 ng/mL Low 31.0-80.0 [facility] Comment on above: Order Comment: Speci men Type: BLOOD SPECIMEN Ordering Facility: [facility] Address: [address] [place] [address] Result Comment: Clas sification of 25 [place] Vitamin D status: Deficiency/Insufficiency: < or = 30 ng/ml. Sufficiency/Optimal Levels: 31-80 ng/mL Toxicity: > 100 ng/mL. Test performed by chemiluminescent immunoassay. Performed By: #### 1 989-3 #### [facility] CLIA [id number] [address] [place] [address] [place] CBC panel Auto (Bld)on 12-12 Erythrocyte distribution width (RBC) [Ratio] 14.4 % Normal 11.5-15.0 [facility] Comment on above: Order Comment: Renetta weber Type: BLOOD SPECIMEN Ordering Facility: [facility] Address: [address] [place] [address] Performed By: #### 5 8410-2 #### [facility] CLIA [id number] [address] [place] [address] [place] Hematocrit (Bld) [Volume fraction] 45.2 % Normal 36.0-46.0 [facility] Comment on above: Order Comment: Renetta weber Type: BLOOD SPECIMEN Ordering Facility: [facility] Address: [address] [place] [address] Performed By: #### 5 8410-2 #### [facility] CLIA [id number] [address] [place] [address] [place] Hemoglobin (Bld) [Mass/Vol] 14.8 g/dL Normal 11.5-15.5 [facility] Comment on above: Order Comment: Thomi men Type: BLOOD SPECIMEN Ordering Facility: [facility] Address: [address] [place] [address] Performed By: #### 5 8410-2 #### [facility] CLIA [id number] [address] [place] [address] [place] MCH (RBC) [Entitic mass] 29.7 pg Normal 26.0-34.0 [facility] Comment on above: Order Comment: Speci men Type: BLOOD SPECIMEN Ordering Facility: [facility] Address: [address] [place], [place] [address] Performed By: #### 5 8410-2 #### [facility] CLIA [id number] [address] [place] [address] [place] MCHC (RBC) [Mass/Vol] 32.7 g/dL Normal 30.5-36.0 [facility] Comment on above: Order Comment: Speci men Type: BLOOD SPECIMEN Ordering Facility: [facility] Address: [address] [place] [address] Performed By: #### 5 8410-2 #### [facility] CLIA [id number] [address] [place] [address] [place] MCV (RBC) [Entitic vol] 90.8 fL Normal 80.0-100.0 [facility] Comment on above: Order Comment: Speci men Type: BLOOD SPECIMEN Ordering Facility: [facility] Address: [address] [place], [place] [address] Performed By: #### 5 8410-2 #### [facility] CLIA [id number] [address] [place] [address] [place] Nucleated RBC (Bld) [#/Vol] 10*3/uL Normal <0.01 [facility] Comment on above: Order Comment: Speci men Type: BLOOD SPECIMEN Ordering Facility: [facility] Address: [address] [place], [place] [address] Performed By: #### 5 8410-2 #### [facility] CLIA [id number] [address] [place] [address] [place] Platelet mean volume (Bld) [Entitic vol] 10.7 fL Normal 9.0-12.7 [facility] Comment on above: Order Comment: Speci men Type: BLOOD SPECIMEN Ordering Facility: [facility] Address: [address] [place] [address] Performed By: #### 5 8410-2 #### [facility] CLIA [id number] [address] [place] [address] [place] Platelets (Bld) [#/Vol] 259 10*3/uL Normal 150-400 [facility] Comment on above: Order Comment: Speci men Type: BLOOD SPECIMEN Ordering Facility: [facility] Address: [address] [place] [address] Performed By: #### 5 8410-2 #### [facility] CLIA [id number] [address] [place] [address] [place] RBC (Bld) [#/Vol] 4.98 10*6/uL Normal 3.90-5.20 [facility] Comment on above: Order Comment: Speci men Type: BLOOD SPECIMEN Ordering Facility: [facility] Address: [address] [place] [address] Performed By: #### 5 8410-2 #### [facility] CLIA [id number] [address] [place] [address] [place] WBC (Bld) [#/Vol] 9.25 10*3/uL Normal 3.70-11.00 [facility] Comment on above: Order Comment: Speci men Type: BLOOD SPECIMEN Ordering Facility: [facility] Address: [address] [place] [address] Performed By: #### 5 8410-2 #### [facility] CLIA [id number] [address] [place] [address] OF [place] CNOVon 12-12-2021 CNOV Office Visit (AMARJIT ) LEXI GARCIA ([id number]) 1970 F Date Time Provider Department 12/12/21 [...] flat ground knees give out. COVID vaccine [employer] 06/26/21. Feels safe at home. Has enough food, supplies and medications. Overall uncomfortable but happy with rheum care. No fx/trauma/illness/oral sores/rash/hairloss/jaw pain/dysphagia/epistaxis/hemo ptysis since last visit. No adverse effects with meds. No other complaints. Patient denies fever, chills, cp, dyspnea, nausea, vomiting, night sweats, scalp tenderness, visual changes, jiang, bowel/bladder changes, weight changes or other complaints. Last visit supportive care, start flexeril/notify office if not tolerated, improved with mobic, see ortho/pain clinic for director long term care pain recommendations/injections, prn acetaminophen, start prn heat/ice/otc arthritis creams, low impact weightbearing exercise as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 mmol/L Normal 95-107 [facility] Comment on above: Performed By: #### B MP #### [facility] [address] [place] [address] CO2 [Moles/Vol] 23 mmol/L Normal 20-31 [facility] Comment on above: Performed By: #### B MP #### [facility] [address] [place] [address] Creatinine [Mass/Vol] 0.76 mg/dL Normal 0.50-0.90 [facility] Comment on above: Performed By: #### B MP #### [facility] [address] [place] [address] GFR/1.73 sq M predicted among blacks MDRD (S/P/Bld) [Vol rate/Area] mL/min/{1.73_m2} Normal >60 [facility] Comment on above: Result Comment: >60 mL/min/1.73m2 EGFR, calc. for ages 18 and older using the MDRD formula (not corrected for weight), is valid for stable renal function. Performed By: #### B MP #### [facility] [address] [place] [address] GFR/1.73 sq M.predicted MDRD (S/P/Bld) [Vol rate/Area] mL/min/{1.73_m2} Normal >60 [facility] Comment on above: Result Comment: >60 mL/min/1.73m2 EGFR, calc. for ages 18 and older using the MDRD formula (not corrected for weight), is valid for stable renal function. Performed By: #### B MP #### [facility] [address] [place] [address] Glucose [Mass/Vol] 87 mg/dL Normal 70-99 [facility] Comment on above: Performed By: #### B MP #### [facility] [address] [place] [address] Potassium [Moles/Vol] 3.8 mmol/L Normal 3.4-4.9 [facility] Comment on above: Performed By: #### B MP #### [facility] [address] [place] [address] Sodium [Moles/Vol] 140 mmol/L Normal 135-144 [facility] Comment on above: Performed By: #### B MP #### [facility] [address] [place] [address] Urea nitrogen [Mass/Vol] 20 mg/dL Normal 6-20 [facility] Comment on above: Performed By: #### B MP #### [facility] [address] [place] [address] CBC With Platelet No Differe ntialon 06-18-2020 Erythrocyte distribution width (RBC) [Ratio] 14.2 % Normal 11.5-14.5 [facility] Comment on above: Performed By: #### C BCND #### [facility] [address] [place] [address] Hematocrit (Bld) [Volume fraction] 41.5 % Normal 37.0-47.0 [facility] Comment on above: Performed By: #### C BCND #### [facility] [address] [place] [address] Hemoglobin (Bld) [Mass/Vol] 14.3 g/dL Normal 12.0-16.0 [facility] Comment on above: Performed By: #### C BCND #### [facility] [address] [place] [address] MCH (RBC) [Entitic mass] 31.4 pg Critically high 27.0-31.3 [facility] Comment on above: Performed By: #### C BCND #### [facility] [address] [place] [address] MCHC (RBC) [Mass/Vol] 34.5 % Normal 33.0-37.0 [facility] Comment on above: Performed By: #### C BCND #### [facility] [address] [place] [address] MCV (RBC) [Entitic vol] 91.2 fL Normal 82.0-100.0 [facility] Comment on above: Performed By: #### C BCND #### [facility] [address] [place] [address] Platelets (Bld) [#/Vol] 241 10*3/uL Normal 130-400 [facility] Comment on above: Performed By: #### C BCND #### [facility] [address] [place] [address] RBC (Bld) [#/Vol] 4.55 10*6/uL Normal 4.20-5.40 [facility] Comment on above: Performed By: #### C BCND #### [facility] [address] [place] [address] WBC (Bld) [#/Vol] 9.7 10*3/uL Normal 4.8-10.8 [facility] Comment on above: Performed By: #### C BCND #### [facility] [address] [place] [address] COVID-19, NAAon 06-18-2020 Source [employer]TE[employer]IC[employer] swab Normal [facility] Comment on above: Performed By: #### I RCOV #### [facility] [address] [place] [address] Prothrombin Timeon 0 INR Coag (PPP) [Relative time] 1.0 {INR} Normal [facility] Comment on above: Performed By: #### P T ####[facility] [place] [phone] PT Coag (PPP) [Time] 13.1 s Normal 12.3-14.9 [facility] Comment on above: Performed By: #### P T ####[facility] [place] [phone] Type and Screen Capture 3 sc rn cellon 06-18-2020 Type and Screen Capture 3 scrn cell PATIENT: JOSE Doss LOC: [facility] BILL# : [id number] : 1970 SEX: F ORDERED BY: TEENA Lowe ORDERED : 06/18/2020 15:07 COLLECTED: 06/18/2020 15:36 ORDER : [id number] RECEIVED : 06/18/2020 15:36 Second, confirmatory specimen needed to satisfy [employer] policy. TEST NAME RESULT UNITS RANGES ABN FL ST [facility] Capture O POS F Antibody 3 Cell Scrn Captu NEG F Normal [facility] Comment on above: Performed By: #### T S3C #### [facility] [address] [place] [id number] XR SPINE ENTIRE (2-3 VIEWS)o n 06-18-2020 [...] COVID-19, BELLE Not Detected Normal Not Detect [facility] Comment on above: Result Comment: This nucleic acid amplification test was developed and its performance characteristics determined by [employer]. Nucleic acid amplification tests include PCR and [...] detected) result in this assay. Performed at: [facility] [address] [facility], [place], [place] [id number] Negative Spotter: Altagracia Quiñonez MD, Phone: [phone] Performed By: #### I RCOV ####[facility] [place] [phone] Basic Metabolic Panelon 10-3 0-2020 Anion gap [Moles/Vol] 12 mmol/L Normal 9-15 [facility] Comment on above: Performed By: #### B MP #### [facility] [address] [place] [address] Calcium [Mass/Vol] 10.5 mg/dL Critically high 8.5-9.9 [facility] Comment on above: Performed By: #### B MP #### [facility] [address] [place] [address] Chloride [Moles/Vol] 98 mmol/L Normal 95-107 [facility] Comment on above: Performed By: #### B MP #### [facility] [address] [place] [address] CO2 [Moles/Vol] 27 mmol/L Normal 20-31 [facility] Comment on above: Performed By: #### B MP #### [facility] [address] [place] [address] Creatinine [Mass/Vol] 0.82 mg/dL Normal 0.50-0.90 [facility] Comment on above: Performed By: #### B MP #### [facility] [address] [place] [address] GFR/1.73 sq M predicted among blacks MDRD (S/P/Bld) [Vol rate/Area] mL/min/{1.73_m2} Normal >60 [facility] Comment on above: Result Comment: >60 mL/min/1.73m2 EGFR, calc. for ages 18 and older using the MDRD formula (not corrected for weight), is valid for stable renal function. Performed By: #### B MP #### [facility] [address] [place] [address] GFR/1.73 sq M.predicted MDRD (S/P/Bld) [Vol rate/Area] mL/min/{1.73_m2} Normal >60 [facility] Comment on above: Result Comment: >60 mL/min/1.73m2 EGFR, calc. for ages 18 and older using the MDRD formula (not corrected for weight), is valid for stable renal function. Performed By: #### B MP #### [facility] [address] [place] [address] Glucose [Mass/Vol] 84 mg/dL Normal 70-99 [facility] Comment on above: Performed By: #### B MP #### [facility] [address] [place] [address] Potassium [Moles/Vol] 4.6 mmol/L Normal 3.4-4.9 [facility] Comment on above: Performed By: #### B MP #### [facility] [address] [place] [address] Sodium [Moles/Vol] 137 mmol/L Normal 135-144 [facility] Comment on above: Performed By: #### B MP #### [facility] [address] [place] [address] Urea nitrogen [Mass/Vol] 31 mg/dL Critically high 6-20 [facility] Comment on above: Performed By: #### B MP #### [facility] [address] [place] [address] CBC With Platelet No Differe ntialon 05-03-2020 Erythrocyte distribution width (RBC) [Ratio] 14.3 % Normal 11.5-14.5 [facility] Comment on above: Performed By: #### C BCND #### [facility] [address] [place] [address] Hematocrit (Bld) [Volume fraction] 41.3 % Normal 37.0-47.0 [facility] Comment on above: Performed By: #### C BCND #### [facility] [address] [place] [address] Hemoglobin (Bld) [Mass/Vol] 13.6 g/dL Normal 12.0-16.0 [facility] Comment on above: Performed By: #### C BCND #### [facility] [address] [place] [address] MCH (RBC) [Entitic mass] 30.7 pg Normal 27.0-31.3 [facility] Comment on above: Performed By: #### C BCND #### [facility] [address] [place] [address] MCHC (RBC) [Mass/Vol] 33.0 % Normal 33.0-37.0 [facility] Comment on above: Performed By: #### C BCND #### [facility] [address] [place] [address] MCV (RBC) [Entitic vol] 92.9 fL Normal 82.0-100.0 [facility] Comment on above: Performed By: #### C BCND #### [facility] [address] [place] [address] Platelets (Bld) [#/Vol] 241 10*3/uL Normal 130-400 [facility] Comment on above: Performed By: #### C BCND #### [facility] [address] [place] [address] RBC (Bld) [#/Vol] 4.44 10*6/uL Normal 4.20-5.40 [facility] Comment on above: Performed By: #### C BCND #### [facility] [address] [place] [address] WBC (Bld) [#/Vol] 11.0 10*3/uL Critically high 4.8-10.8 [facility] Comment on above: Performed By: #### C BCND #### [facility] [address] [place] [address] COVID-19, NAAon 05-03-2020 Source [employer] Anterior nares Normal [facility] Comment on above: Performed By: #### I RCOV ####[facility] [place] [phone] Partial Thromboplastin Timeo n 05-03-2020 aPTT Coag (Bld) [Time] 31.3 s Normal 24.4-36.8 [facility] Comment on above: Performed By: #### P TT #### [facility] [address] [place] [address] Prothrombin Timeon 0 INR Coag (PPP) [Relative time] 0.9 {INR} Normal [facility] Comment on above: Performed By: #### P T #### [facility] [address] [place] [address] PT Coag (PPP) [Time] 11.9 s Low 12.3-14.9 [facility] Comment on above: Performed By: #### P T #### [facility] [address] [place] [address] Type and Screen Capture 3 sc rn cellon 05-03-2020 Type and Screen Capture 3 scrn cell PATIENT: JOSE Doss LOC: [facility] BILL# : [id number] : 1970 SEX: F ORDERED BY: STEPHANIE Harrison ORDERED : 05/03/2020 14:14 COLLECTED: 05/03/2020 14:14 ORDER : [id number] RECEIVED : 05/03/2020 19:43 TEST NAME RESULT UNITS RANGES ABN FL ST [facility] Capture O POS F Antibody 3 Cell Scrn Captu NEG F Normal [facility] Comment on above: Performed By: #### T S3C #### [facility] [address] [place] [address] Established Visit (Orthopaed ic Surgery)on 04-26-2020 Established [...] biceps. No pain with resisted elbow flexion. Table Machine Operator strength 5/5 Elbow flexion 5/5. Shoulder abduction [...] Chiara Espinosa PA-C Department of Orthopaedic Surgery [facility] Dictation performed with the use of voice recognition software. Syntax and grammatical errors may exist. Active Problems Problems Shoulder pain (719.41) (M25.519) Signatures Electronically signed by : Chiara Espinosa PA-C; Apr 26 2020 3:56PM EST (Author) Normal [employer] Initial Visit (Orthopaedic S urgery)on 04-17-2020 Initial Visit (Orthopaedic Surgery) Diagnoses/Problems Assessed Shoulder pain (719.41) (M25.519) Patient Discussion/Summary Patient has right shoulder pain of uncertain origin. Exam today is suggestive of subacromial origin of pain. MRI scan shows tendinopathy but not an obvious tear. I recommended having her MRI scans evaluated by the musculoskeletal radiologist at [facility] I will call the patient back [...] her light touch sensation is grossly intact. Table Machine Operator strength is 5/5 elbow flexion 5/5 shoulder [...] 97.52 kg Gayle Washington MD Work Phone: [facility] 12-12-2021 10:43-0400 Diastolic blood pressure 87 mm[Hg] Gayle Washington MD Work Phone: [facility] 12-12-2021 10:43-0400 Heart rate 88 /min Gayle Washington MD Work Phone: [facility] 12-12-2021 10:43-0400 Systolic blood pressure 125 mm[Hg] Gayle Washington MD Work Phone: [facility] 10-14-2021 10:30-0400 Diastolic blood pressure 80 mm[Hg] Emmett Brunner Other [employer] Other 10-14-2021 10:30-0400 SaO2% (BldA) [Mass fraction] 98 % Emmett Brunner Other [employer] Other 10-14-2021 10:30-0400 Systolic blood pressure 130 mm[Hg] Emmett Brunner Other [employer] Other 07-01-2021 15:30-0500 Body weight 94.62 kg Letty Wesley Other [employer] Other 07-01-2021 15:30-0500 Diastolic blood pressure 78 mm[Hg] Letty Wesley Other [employer] Other 07-01-2021 15:30-0500 Respiratory rate 18 /min Letty Wesley Other [employer] Other 07-01-2021 15:30-0500 SaO2% (BldA) [Mass fraction] 98 % Letty Wesley Other [employer] Other 07-01-2021 15:30-0500 Systolic blood pressure 118 mm[Hg] Letty Wesley Other [employer] Other 06-18-2021 15:45-0500 Diastolic blood pressure 90 mm[Hg] Emmett Kannan Other [employer] Other 06-18-2021 15:45-0500 SaO2% (BldA) [Mass fraction] 97 % Emmett Kannan Other [employer] Other 06-18-2021 15:45-0500 Systolic blood pressure 122 mm[Hg] Emmett Kannan Other [employer] Other 05-15-2021 17:30-0500 Body weight 92.53 kg Emmett Kannan Other [employer] Other 05-15-2021 17:30-0500 Diastolic blood pressure 80 mm[Hg] Emmett Kannan Other [employer] Other 05-15-2021 17:30-0500 Systolic blood pressure 130 mm[Hg] Emmett Kannan Other [employer] Other 04-02-2021 14:30-0400 Body weight 92.63 kg Emmett Kannan Other [employer] Other 04-02-2021 14:30-0400 Diastolic blood pressure 88 mm[Hg] Emmett Kannan Other [employer] Other 04-02-2021 14:30-0400 SaO2% (BldA) [Mass fraction] 98 % Emmett Kannan Other [employer] Other 04-02-2021 14:30-0400 Systolic blood pressure 140 mm[Hg] Emmett Kannan Other [employer] Other Encounters Encounter Date Encounter Type Care Provider Facility Start: 02-03-2024 End: 02-03-2024 ambulatory [facility] Start: 01-25-2024 End: 01-25-[address] [facility] Start: 01-24-2024 End: 01-24-2024 ambulatory Rosibel Cotton MD Facility: [facility] Start: 01-12-2024 End: 01-12-2024 ambulatory NICOLE TELLES [facility] Start: 01-12-2024 Encounter for other preprocedural examination [facility] Start: 12-20-2023 End: 12-20-2023 ambulatory Rosibel Cotton MD Facility: [facility] Start: 11-02-2023 End: 11-02-2023 ambulatory [facility] Start: 10-29-2023 End: 10-29-2023 ambulatory IZABEL LARA Not Available Start: 10-28-2023 End: 10-28-2023 ambulatory CLIFFORD VANN Not Available Start: 10-26-2023 End: 10-26-[address] [facility] Start: 10-25-2023 End: 10-25-2023 ambulatory Rosibel Cotton MD Facility: [facility] Start: 09-20-2023 End: 09-20-2023 ambulatory Rosibel Cotton MD Facility: [facility] Start: 09-13-2023 End: 09-13-2023 Subsequent hospital visit by physician [facility] Comment on above: Flatulence, eructati on and gas pain Start: 09-13-2023 End: 09-13-2023 [facility]ulatory [facility] Start: 09-13-2023 Encounter for other preprocedural examination [facility] Start: 07-26-2023 End: 07-26-2023 ambulatory KIMBERLEY G EDWIGE Not Available Start: 06-22-2023 End: 06-22-[address] [facility] Start: 06-18-2023 End: 06-18-2023 ambulatory KIMBERLEY GIBBONS Not Available Start: 05-11-2023 End: 05-12-2023 ambulatory JESSIE REID Not Available Start: 04-27-2023 End: 04-27-[address] [facility] Start: 04-07-2023 ambulatory Gayle Washington MD Work Phone: Rheumatology Comment on above: Fax info Start: 02-10-2023 End: 02-10-2023 ambulatory ELODIA [facility] Start: 10-16-2022 Encounter for preprocedural cardiovascular examination DR ULISES TIM [facility] Start: 10-16-2022 Encounter for preprocedural laboratory examination DR ULISES TIM [facility] Start: 10-13-2022 End: 10-13-[address] ULISES [...] Start: 12-12-2021 End: 12-13-2021 ambulatory KIMBERLEY GIBBONS [employer] Other Start: 12-12-2021 End: 12-12-2021 Patient encounter [...] 10-29-2021 Chart Update Cristobal miller Work Phone: [id number] Work Phone: Start: 10-14-2021 End: 10-14-2021 ambulatory Emmett Brunner Other [employer] Other Start: 10-14-2021 Patient encounter procedure Emmett Brunner [facility] Start: 09-23-2021 End: 09-23-2021 ambulatory Emmett Brunner Other [employer] Other Start: 09-23-2021 Telephone encounter Emmett Brunner [facility] Start: 07-01-2021 End: 07-01-2021 ambulatory Lettyra Olson Other [employer] Other Start: 07-01-2021 Office outpatient vi sit 25 minutes Lettyra Olson [facility] Start: 06-26-2021 (Procedure) Short Emmett Brunner [facility] Start: 06-26-2021 End: 06-26-2021 ambulatory Emmett Brunner Other [employer] Other Start: 06-18-2021 End: 06-18-2021 ambulatory Emmett Brunner Other [employer] Other Start: 06-18-2021 Office outpatient vi sit 25 minutes Emmett Kannan [facility] Start: 06-18-2021 Telephone encounter Emmett Brunner [facility] Start: 06-04-2021 End: 06-04-2021 Subsequent hospital visit by physician Christina [facility] Comment on above: Chronic hip pain, bi lateral [M25.551, M25.552, G89.29] Start: 05-21-2021 (Procedure) Short Emmett Brunner [facility] Start: 05-21-2021 End: 05-21-2021 ambulatory Emmett Brunner Other [employer] Other Start: 05-15-2021 End: 05-15-2021 ambulatory Emmett Brunner Other [employer] Other Start: 05-15-2021 Office outpatient vi sit 25 minutes Emmett Kannan [facility] Start: 04-30-2021 (Procedure) Short Emmettarmani Brunner [facility] Start: 04-16-2021 (Procedure) Short Emmettarmani Brunner [facility] Start: 04-02-2021 Office outpatient vi sit 25 minutes Emmett Kannan [facility] Start: 02-21-2021 Office outpatient vi sit 15 minutes Cristobal Tomas Work Phone: [id number] Work Phone: Start: 06-25-2020 End: 06-27-2020 Evaluation and management of inpatient [facility] Start: 06-25-2020 End: 06-28-2020 Patient encounter procedure CRISTOBAL Hampton [facility] Start: 06-18-2020 End: 06-23-2020 Patient encounter procedure CRISTOBAL Hampton [facility] Start: 05-09-2020 End: 05-09-2020 Patient encounter procedure [facility] Procedures Date Procedure Procedure Detail Performing Clinician Start: 09-13-2023 Assay of gammaglobul in iga igd igg igm each Nicole Telles BACK END ENGINEER - INSPECTOR SCALES Work Phone: Start: 06-04-2021 Radex hips bilateral with pelvis minimum 5 views Gayle Washington MD Work Phone: Start: 06-17-2020 Mammography Gayle jeffries MD Work Phone: Start: 06-09-2018 Lipid 1996 panel - S willian or Plasma Gayle Washington MD Work Phone: Plan of Treatment Date Care Activity Detail Author Start: 12-12-2024 DIABETES SCREEN DIABETES SCREEN [facility] Start: 12-12-2024 Diabetes Screening Diabetes Screening [facility] Start: 07-01-2024 Screening for malignant neoplasm of breast Breast cancer screen [facility] Start: 02-03-2024 End: 02-03-2024 Admission to same day surgery center 02/03/2024 8:45 AM EDT - 02/03/2024 9:05 AM EDT Surgery [facility] [address] [place], [place] [id number] Nancy Ludwig MD [address] [place], [place] [id number] ESOPHAGOGASTRODUODENOSCOPY [facility] Comment on above: ESOPHAGOGASTRODUODENOSCOPY Start: 02-03-2024 End: 02-03-2024 Esophagogastroduodenoscopy transoral diagnostic ESOPHAGOGASTRODUODENOSCOPY Chronic GERD 02/03/2024 8:45 AM EDT [facility] Start: 02-03-2024 Subsequent hospital visit by physician 02/03/2024 8:45 AM EDT Hospital Encounter [facility] [address] [id number] Nancy Ludwig MD [address] [place] [address] [facility] Start: 07-05-2023 Annual Wellness Visit (Medicare Advantage) Annual Wellness Visit (Medicare Advantage) [facility] Start: 06-09-2023 Lipid 1996 panel - Serum or Plasma Lipid Screening [facility] Start: 06-09-2023 LIPID SCREEN LIPID SCREEN [facility] Start: 03-05-2023 COVID-19 Vaccine (2022- season) COVID-19 Vaccine ( season) [facility] Start: 03-05-2023 Influenza vaccination [facility] Start: 02-02-2023 Influenza vaccination Flu vaccine (#1) [facility] Start: 07-05-2022 DEPRESSION ASSESSMENT DEPRESSION ASSESSMENT [facility] Start: 03-19-2022 End: 12-17-2022 25-hydroxyvitamin D3 [Mass/volume] in Serum or Plasma VITAMIN D 25 HYDROXY Lab Routine Vitamin D deficiency Expected: 03/19/2022 (Approximate), Expires: 12/17/2022 [facility] Work Phone: Comment on above: Expected: 03/19/2022 (Approximate), Expi res: 12/17/2022 Start: 03-05-2022 Influenza vaccination [facility] Start: 08-21-2021 COVID-19 VACCINE (2 - Booster for Barbara series) COVID-19 VACCINE (2 - Booster for Barbara series) [facility] Start: 07-05-2021 DEPRESSION ASSESSMENT DEPRESSION ASSESSMENT [facility] Start: 06-17-2021 Mammography [facility] Start: 2018 Shingles vaccine (1 of 2) Shingles vaccine (1 of 2) [facility] Start: 2018 SHINGRIX VACCINE (1 of 2) SHINGRIX VACCINE (1 of 2) [facility] Start: 2013 COLOGUARD (FIT-DNA) COLOGUARD (FIT-DNA) [facility] Start: 2013 Colonoscopy COLONOSCOPY [facility] Start: 2013 COLORECTAL CANCER SCREENING COLORECTAL CANCER SCREENING [facility] Start: [address] COLONOGRAPHY [facility] Start: 2013 FECAL OCCULT BLOOD FECAL OCCULT BLOOD [facility] Start: 2013 Screening for malignant neoplasm of colon [facility] Start: 2013 SIGMOIDOSCOPY SIGMOIDOSCOPY [facility] Start: 1998 HPV TESTING HPV TESTING [facility] Start: 1989 PAP TESTING PAP TESTING [facility] Start: 1987 DTaP/Tdap/Td vaccine (1 - Tdap) DTaP/Tdap/Td vaccine (1 - Tdap) [facility] Start: 1987 Urine microalbumin profile [facility] Start: 1986 Hepatitis C screening Hepatitis C screen [facility] Start: 1986 HIV SCREENING HIV SCREENING [facility] Start: 1983 HIV screening HIV screen [facility] Start: 1980 Adult depression screening assessment DEPRESSION SCREENING [facility] Start: 1980 Depression Screen Depression Screen [facility] Start: 1978 Lipid panel Lipids [facility] Start: 1974 PNEUMOCOCCAL (1 - PCV) PNEUMOCOCCAL (1 - PCV) [facility] Start: 1974 Pneumococcal 0-64 years Vaccine (1 - PCV) Pneumococcal 0-64 years Vaccine (1 - PCV) [facility] Start: 1974 Pneumococcal vaccination Pneumococcal Vaccine (1 - PCV) [facility] Start: 1968 HEPATITIS B (1 of 3 - 3-dose series) HEPATITIS B (1 of 3 - 3-dose series) [facility] Start: 1968 Hepatitis B Vaccine (1 of 3 - 3-dose series) Hepatitis B Vaccine (1 of 3 - 3-dose series) [facility] Celiac Disease Panel Celiac Dise ase Panel Lab Routine Flatulence, eructation and gas pain 09/13/2023 4:20 PM EDT [facility] End: 09-13-2023 H. pylori antigen [facility] [employer] [facility] Comment on above: Once for 1 Occurrences starting 09/13/19 24 until 09/13/2023 End: 09-13-2023 H. Pylori Antigen, Stool H. Pylori Antigen, Stool Lab Routine Flatulence, eructation and gas pain 1 Occurrences starting 09/13/2023 until 09/13/2023 [employer] [facility] Work Phone: Comment on above: 1 Occurrences starting 09/13/2023 until 09/13/2023 Immunizations Immunization Date Immunization Notes Care Provider Fa aleksandrty 04-06-2019 influenza, injectabl e, quadrivalent, preservative free Cristobal Tomas Work Phone: [id number] [facility] Work Phone: 04-06-2019 influenza virus vaccine, unspecified formulation Gayle Washington MD Work Phone: [facility] 05-15-2016 seasonal influenza, intradermal, preservative free Cristobal Tomas Work Phone: [facility] Payers Date Payer Category Payer Unknown 2021 Unknown CLAYTON CHAIREZINA HI X [id number] 2021-Present [phone] [address] [address] [place] [address] HMO [id number] 2020 Private Health Insurance [facility] CHO[employer] GENERIC [id number] 2020-2021 [address] [address] [place] [address] PPO [id number] 2018 Unknown [id number] [id number] 2017 Unknown [id number] 1968 Unknown [id number] 2.16.840.1.417255.3.579.2 .182 1968 Unknown [id number] 2.16.840.1.159783.3.579.2 .182 1968 Unknown [id number] 2.16.840.1.426522.3.579.2 .182 1968 Unknown [id number] 2.16.840.1.481082.3.579.2 .182 1968 Unknown [id number] 2.16.840.1.566641.3.579.2 .182 1968 Unknown [id number] 2.16.840.1.079440.3.579.2 .593 1968 Unknown [id number] 2.16.840.1.742616.3.579.2 .593 1968 Unknown [id number] 2.16.840.1.971649.3.579.2 .593 1968 Unknown [id number] 2.16.840.1.161022.3.579.2 .593 1968 Unknown [id number] 2.16.840.1.785669.3.579.2 .593 1968 Unknown [id number] 2.16.840.1.215296.3.579.2 .593 1968 Unknown [id number] 2.16.840.1.409730.3.579.2 .593 1968 Unknown [id number] 2.16.840.1.664000.3.579.2 .593 1968 Unknown [id number] 2.16.840.1.557580.3.579.2 .593 1968 Unknown [id number] 2.16.840.1.379528.3.579.2 .593 1968 Unknown [id number] 2.16.840.1.996080.3.579.2 .593 1968 Unknown [id number] 2.16.840.1.118261.3.579.2 .1259 1968 Unknown [id number] 2.16.840.1.036474.3.579.2 .9 1968 Unknown [id number] 2.16.840.1.832201.3.579.2 .9 1968 Unknown [id number] 2.16.840.1.916321.3.579.2 .9 1968 Unknown [id number] 2.16.840.1.345007.3.579.2 .9 1968 Unknown [id number] 2.16.840.1.516833.3.579.2 .9 1968 Unknown [id number] 2.16.840.1.099683.3.579.2 .9 1968 Unknown [id number] 2.16.840.1.312700.3.579.2 .196 1968 Unknown [id number] 2.16.840.1.432995.3.579.2 .196 1968 Unknown [id number] 2.16.840.1.493946.3.579.2 .196 1968 Unknown [id number] 2.16.840.1.911018.3.579.2 .196 1968 Unknown [id number] 2.16.840.1.675870.3.579.2 .173 1968 Unknown [id number] 2.16.840.1.831465.3.579.2 .173 1968 Unknown [id number] 2.16.840.1.353070.3.579.2 .173 1968 Unknown [id number] 2.16.840.1.088693.3.579.2 .173 Social History Date Type Detail Facility Start: 06-04-2021 End: 09-08-2023 Tobacco smoking status PAIS Smokes tobacco daily [facility] History of tobacco use Cigarette Smoker [facility] Start: 05-03-2020 End: 06-04-2021 Cigarettes smoked current (pack per day) - Reported 1 [facility] Start: 06-04-2021 End: 09-08-2023 Tobacco use and exposure Smokeless tobacco non-user [facility] Start: 12-12-2021 End: 09-08-2023 Alcohol intake Current drinker of alcohol (finding) [facility] Start: 06-04-2021 History SDOH Alcohol Comment rarely. [facility] Start: 1970 Sex Assigned At Not on file [facility] Start: 11-29-2021 End: 12-09-2021 Exposure to SARS-CoV-2 (event) Unable to assess [facility] Start: 05-03-2020 End: 06-05-2021 Sex Assigned At [employer] Other Start: 05-05-2021 End: 06-04-2021 Exposure to SARS-CoV-2 (event) Not sure [facility] National Score (1-100), lower number is lower risk 95 [facility] (I/We) worried whether (my/our) food would run out before (I/we) got money to buy more. Never true [facility] Start: 09-08-2023 Tobacco Comment intermittently since 15 [facility] Start: 05-03-2020 Alcohol Comment hardly ever [employer] Procedure Code Equipment Code Equipment Original Text Equipment Identifier Dates Impl Alena Spine R michael Ti35 Mm 55 Mm [id number] Start: 06-25-2020 Graft Spnl W11xh 2uv34au Corticocancellous Lord Triad - [id number] Start: 05-09-2020 Plate Spnl L28mm Antr Cerv 1 Lev Translational [place] Acp [id number] Start: 05-09-2020 Screw Spnl L13mm Dia4mm Ant Cerv [facility] Ang Compr [place] [facility]p [id number] Start: 05-09-2020 Connector Spnl C rss Lo Prof Adj Reline-O 5.5 X 45-65 Mm [id number] Start: 06-25-2020 Screw Spnl Dia5. 5mm Opn Tulip Roselyn Reline [id number] Start: 06-25-2020 Graft Bne Sub 30 cc 1.7-10mm Canc Chip Morselized Frz Dry - [id number] Start: 06-25-2020 Graft Bne Sub 5m l Mtrx Cellular Osteocel + - [id number] Start: 06-25-2020 Spacer Spnl L W1 3fl5lb71nl 4deg Post Lum Intbdy Fus Lord [id number] [...] able to decrease Celebrex to 200 BID [facility] Follow-up Patient Visit Subjective Chief [...] surgery with numbness in hands and decreased motor driver strength, R>L shoulders, neck (better since ablation). AM stiffness lasts 1-2 hrs (was 2-3 hr prior),, on average daily. Denies joint erythema, swelling, warmth. Comprehensive History: Patient Active Problem List Diagnosis Chest pain, atypical Benign essential HTN HOFFMAN (dyspnea on exertion) Fibromyalgia Elevated d-dimer Mixed hyperlipidemia GERD without esophagitis Orthopnea Sleep disturbances Abnormal nuclear stress test Unstable angina (CMS/HCC) Coronary artery disease involving [place] coronary artery of [place] heart without angina pectoris Degenerative joint disease [...] 80 mg ta (more content not included)... [facility] 11-02-2023 Note ecg [facility] 11-02-2023 Note Cardiovascular Medic [facility] SUBJECTIVE Chief Complaint Patient [...] Unstable angina (CMS/HCC) Coronary artery disease involving [place] coronary artery of [place] heart without angina pectoris Degenerative joint disease [...] , Rfl: o (more content not included)... [facility] 10-26-2023 Note Attestation signed by Jessie [...] will decrease Celebrex due to worsening heartburn [facility] Follow-up Patient Visit Subjective Chief [...] surgery with numbness in hands and decreased motor driver strength, R>L shoulders, neck. AM stiffness lasts 1-2 hrs (was 2-3 hr prior), on average daily. Denies joint erythema, swelling, warmth. Comprehensive History: Patient Active Problem List Diagnosis Chest pain, atypical Benign essential HTN HOFFMAN (dyspnea on exertion) Fibromyalgia Elevated d-dimer Mixed hyperlipidemia GERD without esophagitis Orthopnea Sleep disturbances Abnormal nuclear stress test Unstable angina (CMS/HCC) Coronary artery disease involving [place] coronary artery of [place] heart without angina pectoris Degenerative joint disease [...] 400 mg capsul (more content not included)... [facility] 10-26-2023 Note PT STATE SHE HAS BEE N DIZZY RECENTLY PT STATES TAKES MEDS TO MANAGE DEPRESSION SX [facility] 06-22-2023 Note Attestation signed by Jessie [...] subchondral sclerosis noted on fist [facility] joints [facility] Follow-up Patient Visit Subjective Chief [...] Unstable angina ([facility]) Coronary artery disease involving [place] coronary artery of [place] heart without angina pectoris Degenerative joint disease [...] V Leiden ([facility]) Fibromyalgia, primary GERD (gastroesophageal reflux disease) Hyperlipidemia [...] the morning. aspirin (more content not included)... [facility] 04-27-2023 Note Attestation signed by Jessie [...] history of diffuse pain presented today [facility] care, previously followed by [facility] Exam was remarkable for diffuse tenderness consistent with fibromyalgia, she reports episodic swelling in hands and feet, no synovitis was noted on exam today Will do further workup as below We discussed risks of NSAIDs including but not limited to: kidney impairment, GI ulcer/bleed, CV risk, etc. 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 She formerly saw [facility] with last visit in December 2021 per available records. 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 Reports sometimes she has swelling, redness, [...] Patient Active Proble (more content not included)... [facility] 04-07-2023 Note Reviewed recent lipi d [...] 163 from 128 last draw Elodia Oscar MAINTENANCE TECHNICIAN Division of Cardiology, [facility] Ph- [phone] Pager- [phone] Email- [email or web address] 04-07-2023 Miscellaneous Notes Notify [...] faxed with confirmation. documented in this encounter [facility] 02-10-2023 Note Coronary artery dise ase is stable Continue GDMT- ASA, lipitor, toprol continue risk factor modifications- heart healthy diet, regular exercise as tolerated and continue all medications. Pt to have repeat lipid and lft levels drawn soon [facility] 02-10-2023 Note D/W pt that may need to see GI for further evaluation for other etiology of her chest pain and may be r/t GERD [facility] 02-10-2023 Note Currently stable [facility] 02-10-2023 Note Currently denied [facility] 02-10-2023 Note Continue lipitor 80 mg, lipid level well controlled currently [facility] 02-10-2023 Note Hypertension is stab le and well controlled at home Continue norvasc, toprol [facility] 02-10-2023 Note [facility] CARDIOLOGY PROGR ESS [...] stenosis. LCX - (more content not included)... [facility] 02-10-2023 Note Review of Systems All other systems reviewed and are negative. [facility] 10-13-2022 Note OPERATIVE NOTE OPERATION DATE: [...] left cheek was prepped with Betadine. A Stephens tip Bovie was then used to make [...] the recovery room in good condition. [facility] 10-07-2022 Note EXAM: XR CHEST 2 V HISTORY: Pre-surgery evaluation COMPARISON: None. TECHNIQUE: PA and lateral views of the chest. FINDINGS: The cardiomediastinal silhouette is normal. No focal consolidation is identified. There is no pneumothorax. No pleural effusion is noted. The osseous structures are intact. IMPRESSION: No acute cardiopulmonary process. Electronically authenticated by: JOSIAH WILKS Date: 2022-10-07 11:27 [facility] 07-23-2022 Note CONSULTATION CONSULTATION DATE: 07/23/2022 HISTORY [...] Patient does agree with this plan. [facility] 06-11-2022 Note CONSULTATION CONSULTATION DATE: 06/11/2022 HISTORY OF PRESENT ILLNESS: This is a 52-year-old female returning to the clinic for a two month follow up for neck and shoulder pain. Patient had radiofrequency ablation of her cervical spine in [place] of 2022. She was last seen on [...] q.h.s. 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 [facility] 05-18-2022 Miscellaneous Notes Patient's request for medication is as follows: Requested Prescriptions Signed Prescriptions Disp Refills celecoxib (CELEBREX) 200 mg capsule 180 capsule 3 Sig: Take 1 capsule by mouth twice daily. Prescription(s) as above. Please process accordingly. Gayle Washington MD [employer] message sent to patient reminding her to [...] Lab Orders Expected Expires Ordered HLA-B27 PCR [[id number]] 06/19/21 06/18/22 06/18/21 Auth. provider: Gayle Washington MD Assoc. diagnoses: Elevated sedimentation rate VITAMIN D 25 HYDROXY [SQVITD] 03/19/22 12/17/22 12/17/21 Auth. provider: Gayle Washington MD Assoc. diagnoses: Vitamin D deficiency documented in this encounter [facility] 04-16-2022 Note CONSULTATION PROCEDURE DATE: 04/16/2022 [...] the clinic in three months' time. [facility] 04-09-2022 Note CONSULTATION CONSULTATION DATE: 04/09/2022 HISTORY [...] to the clinic for her injection. [facility] 01-01-2022 Note CONSULTATION CONSULTATION DATE: 01/01/2022 This is a pleasant 51-year-old female returning to the clinic status post #2 bilateral MBB on C3, C4 and C5 that afforded her 80% relief for 5 days. She was recently at her gut puller's and was diagnosed with fibromyalgia and she [...] be followed up in the clinic post-procedure. [facility] Signed and Approved by: BEN MONROE . 01/08/2022 10:22:00 [facility] 12-17-2021 Miscellaneous Notes Pt aware. Kamryn Luna [...] if tests completed at [facility]: Mildly low vitamin D- increase over [...] superior labral tear; documented in this encounter [facility] 12-12-2021 Note HNO ID: [id number] Author: Gayle Washington MD Service: ? Author [...] flat ground knees give out. COVID vaccine [employer] 06/26/21. Feels safe at home. 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 clinic for director long term care pain recommendations/injections, prn acetaminophen, start prn heat/ice/otc arthritis creams, low impact weightbearing exercise as tolerated, avoid aggravating triggers,supportive care, start flexeril/notify office if not tolerated, improved with mobic, see ortho/pain clinic for residential pain recommendations/injections, prn acetaminophen, start prn heat/ice/otc [...] Urine or urethritis: no Renal/liver disease: no CLOCK REPAIR TECHNICIAN/PNS/sz/cva/cancer disease: no HEME-Cytopenias/LAD/Clots: no Fevers: no Fatigue: [...] MEDICAL HISTORY: PMH (more content not included)... [facility] 12-12-2021 History of Present illness Narrative Face [...] improved with mobic, see ortho/pain clinic for residential pain recommendations/injections, prn acetaminophen, start prn heat/ice/otc arthritis creams, low impact weightbearing exercise as tolerated, avoid aggravating triggers,supportive care, start flexeril/notify office if not tolerated, improved with mobic, see ortho/pain clinic for residential pain recommendations/injections, prn acetaminophen, start prn heat/ice/otc [...] Urine or urethritis: no Renal/liver disease: no CLOCK REPAIR TECHNICIAN/PNS/sz/cva/cancer disease: no HEME-Cytopenias/LAD/Clots: no Fevers: no Fatigue: [...] flat ground knees give out. COVID vaccine [employer] 06/26/21. Feels safe at home. Has enough food, supplies and medications. Overall uncomfortable but happy with rheum care. = supportive care, start celebrex/notify office if not tolerated, OFF mobic/initially improved with medication but now effect wore off, prn flexeril, see pain clinic for director long term care pain recommendations, see ortho/pain clinic for residential pain recommendations/injections, prn acetaminophen, start prn heat/ice/otc [...] to side effects OFF lyrica no response residential pain recommendations per primary care provider/pain clinic [...] video & audio (virtual) or phone or [id number] patient care, completing clinical documentation, obtaining and/or [...] physician/Primary care physician : Dear Dr.Renee Leora Gibbons, DO: I had the pleasure of seeing [...] Leora Gibbons DO documented in this encounter [facility] 12-12-2021 Instructions Gayle Washington MD - [...] to side effects OFF lyrica no response residential pain recommendations per primary care provider/pain clinic nonfasting labs as scheduled Thank you. documented in this encounter [facility] 12-09-2021 Miscellaneous Notes Patient has been scheduled as requested for 12/12/21. Referral has been attached. I spoke with Khang Jose and she is aware of all of the appointment details. Nataliya DYKES December 09, 2021 2:43 PM Patient calling to schedule follow up appt with Dr Washington no schedule pulling for [place] only [facility]. Patient requesting call at [phone] Washington is still at [place]. Please advise. documented in this encounter [facility] 11-18-2021 Note PAIN MANAGEMENT CONS ULTATION CONSULTATION DATE: 11/18/2021 CHIEF COMPLAINT: Cervical pain. HISTORY OF PRESENT ILLNESS: This is a 51-year-old female who had, in the past, been seen by Dr. Brunner, Pain Management in [place], [place]. The patient had changed her insurances to [employer] and, as such, Dr. Brunner does not [...] like to proceed. CC: Kimberley Gibbons D.O. [facility] Signed and Approved by: DR RACHEL STOCK . 11/25/2021 12:22:00 [facility] 10-14-2021 Evaluation note Encounter Date Diagnosis Assessment [...] nerve block in the future if needed. [employer] Other 12-28-2021 Evaluation note* Encounter Date Diagnosis [...] right hip to further evaluate her pain. [employer] Other 12-15-2021 Evaluation note* Encounter Date Diagnosis [...] (ICD-10 - G89.29) Continue medications as prescribed [employer] Other 11-11-2021 Evaluation note* Encounter Date Diagnosis [...] (ICD-10 - G89.29) Continue medications as prescribed [facility] Other 09-29-2021 Evaluation note* Encounter Date Diagnosis [...] injection under ultrasound guidance in the future. [employer] Other Evaluation note* Diagnosis Secondary osteoarthritis of [...] Chronic pain syndrome documented in this encounter [facility] noteNo [employer]Nort [employer] Other Evaluation note* Diagnosis Secondary osteoarthritis of multiple sites- Primary Osteoarthrosis involving, or with mention of more than one site, but not specified as generalized, multiple sites Vitamin D deficiency Unspecified vitamin D deficiency Fibromyalgia Mylagia and myositis, unspecified documented in this encounter [facility] note* Diagnosis Secondary osteoarthritis of multiple sites Osteoarthrosis involving, or with mention of more than one site, but not specified as generalized, multiple sites documented in this encounter [facility] note* Diagnosis Chronic hip pain, bilateral Chronic left shoulder pain Pain in joint, shoulder region Chronic pain of both knees Bilateral hand pain Pain in limb documented in this encounter [facility] note* Diagnosis Secondary osteoarthritis of multiple sites Osteoarthrosis involving, or with mention of more than one site, but not specified as generalized, multiple sites Cervicalgia Chronic bilateral low back pain with bilateral sciatica documented in this encounter [facility] note* Diagnosis Flatulence, eructation and gas pain Flatulence, eructation, and gas pain Chronic GERD documented in this encounter DEWAYNE VELASQUEZ [facility] general Narrative - Reported* Type Description Date Medical History allergies Medical History factor 5 blood disorder Medical History anxiety Medical History depression Medical History bipolar Medical History lumbar DDD Surgical History back surgery 06/2021 Surgical History neck surgery 05/2021 Hospitalization History see above [employer] Other History general Narrative - Reported* Type Description Date Medical History allergies Medical History factor 5 blood disorder Medical History anxiety Medical History depression Medical History bipolar Medical History lumbar DDD Medical History osteoarthritis of multiple joint s Surgical History back surgery 06/2021 Surgical History neck surgery 05/2021 Hospitalization History see above [employer] Other History of Present illness NarrativePatient has continued intermittent pain symptoms in her right shoulder she is remotely status post rotator cuff repair she had a follow-up MRI scan recently she would like to review with me today. She had a subacromial injection but it did not resolve all of her symptoms.[id number] Work Phone: reason for referral (narrative)* Diagnostic Procedure Only (Routine) - Closed Specialty Diagnoses / Procedures Referred By Margarita t Referred To Contact XR IMAGING Diagnoses Bilateral hand pain Procedures XR HAND GENERAL 3V PA/LAT/OBL BILATERAL X-RAY HAND MINIMUM 3 VIEWS Gayle Washington MD [address] [place] [address] Xr Imaging Referral ID Status Reason Start Date Expiration Date V isits Requested Visits Authorized [id number] Closed Auto-Generate d Referral 06/04/2021 07/04/2022 1 1 * Diagnostic Procedure Only (Routine) - Closed Specialty Diagnoses / Procedures Referred By Margarita vanegas Referred To Contact XR IMAGING Diagnoses Chronic pain of both knees Procedures XR KNEE GENERAL 4V AP BOTH/PA BOTH/LAT/MERC BILATERAL KNEE AP-WGT/LAT/MERCHANT Gayle Washington MD [address] [place] [address] Xr Imaging Referral ID Status Reason Start Date Expiration Date V isits Requested Visits Authorized [id number] Closed Auto-Generate d Referral 06/04/2021 07/04/2022 1 1 * Diagnostic Procedure Only (Routine) - Closed Specialty Diagnoses / Procedures Referred By [facility] Referred To Contact XR IMAGING Diagnoses Chronic left shoulder pain Procedures XR SHOULDER GENERAL 3V OR MORE AP/TRUE AP/OTHER LEFT X-RAY SHOULDER COMPLET MIN 2 VIEWS Gayle Washington MD [address] [place] [address] Xr Imaging Referral ID Status Reason Start Date Expiration Date V isits Requested Visits Authorized [id number] Closed Auto-Generate d Referral 06/04/2021 07/04/2022 1 1 * Diagnostic Procedure Only (Routine) - Closed Specialty Diagnoses / Procedures Referred By Contac t Referred To Contact XR IMAGING Diagnoses Chronic hip pain, bilateral Procedures XR HIP BILATERAL 5V PEL/AP/LAT EACH HIP RADEX HIPS BILATERAL WITH PELVIS MINIMUM 5 VIEWS Gayle Washington MD [address] [place] [address] Xr Imaging Referral ID Status Reason Start Date Expiration Date V isits Requested Visits Authorized [id number] Closed Auto-Generate d Referral 06/04/2021 07/04/2022 1 1 [facility] for visit Narrative* Diagnostic Procedure Only (Routine) - Closed Specialty Diagnoses / Procedures Referred By Contac t Referred To Contact XR IMAGING Diagnoses Bilateral hand pain Procedures XR HAND GENERAL 3V PA/LAT/OBL BILATERAL X-RAY HAND MINIMUM 3 VIEWS Gayle Washington MD [address] [place] [address] Xr Imaging Referral ID Status Reason Start Date Expiration Date V isits Requested Visits Authorized [id number] Closed Auto-Generate d Referral 06/04/2021 07/04/2022 1 1 [facility] Summary Purpose Family History No Family [...] left Procedures CONSULT TO ORTHOPAEDICS OFFICE/OUTPATIENT [facility] MDM 60-74 MINUTES Gayle Washington MD [address] [place] [address] Referral ID Status Reason Start Date Expiration Date Visits Requested Visits Authorized [id number] Pending Review PCP Requested Referral 12/12/2021 12/12/2022 1 1 Additional Source Comments INFORMATION SOURCE (unrecogn ized section and content) DATE CREATED AUTHOR 06/20/2020 [facility] DATE CREATED AUTHOR AUTHOR'S ORGANIZ ATION 06/27/2020 [facility] DATE CREATED AUTHOR AUTHOR'S ORGANIZ ATION 12/01/2020 [facility] DATE CREATED AUTHOR AUTHOR'S ORGANIZ ATION 02/23/2021 [facility] DATE CREATED AUTHOR AUTHOR'S ORGANIZ ATION 02/23/2021 [employer] DATE CREATED AUTHOR AUTHOR'S ORGANIZ ATION 12/26/2021 [facility] DATE CREATED AUTHOR AUTHOR'S ORGANIZ ATION 07/02/2022 [facility] Specialist DATE CREATED AUTHOR AUTHOR'S ORGANIZ ATION 10/08/2022 [facility] DATE CREATED AUTHOR AUTHOR'S ORGANIZ ATION 10/20/2022 [facility] DATE CREATED AUTHOR AUTHOR'S ORGANIZ ATION 10/30/2023 [facility] Special[facility] EPIC DATE CREATED AUTHOR AUTHOR'S ORGANIZ ATION 01/27/2024 [facility] DATE CREATED AUTHOR AUTHOR'S ORGANIZ ATION 01/29/2024 [facility] DATE CREATED AUTHOR AUTHOR'S ORGANIZ ATION 02/05/2024 [facility] Source Comments (unrecognize d section and content) In the event this informatio n is protected by the Federal Confidentiality of Alcohol and Drug Abuse Patient Records regulations: The Federal rules restrict any use of the information to criminally investigate or prosecute any alcohol or drug abuse patient.[facility] the event this information is protected by the Federal Confidentiality of Alcohol and Drug Abuse Patient Records regulations: The Federal rules restrict any use of the information to criminally investigate or prosecute any alcohol or drug abuse patient.[facility] the event this information is protected by the Federal Confidentiality of Alcohol and Drug Abuse Patient Records regulations: The Federal rules restrict any use of the information to criminally investigate or prosecute any alcohol or drug abuse patient.[facility] the event this information is protected by the Federal Confidentiality of Alcohol and Drug Abuse Patient Records regulations: The Federal rules restrict any use of the information to criminally investigate or prosecute any alcohol or drug abuse patient.[facility] the event this information is protected by the Federal Confidentiality of Alcohol and Drug Abuse Patient Records regulations: The Federal rules restrict any use of the information to criminally investigate or prosecute any alcohol or drug abuse patient.[facility] the event this information is protected by the Federal Confidentiality of Alcohol and Drug Abuse Patient Records regulations: The Federal rules restrict any use of the information to criminally investigate or prosecute any alcohol or drug abuse patient.[facility] Reason for Visit (unrecogniz ed section and content) Reason Comments Follow Up Pain ongoing generalized pain. Specialty Diagnoses / Procedures Referred By Contac t Referred To Contact RHEUMATOLOGY Diagnoses Follow Up Procedures OFFICE/OUTPATIENT ESTABLISHED MOD MDM 30-39 MIN Follow Up Gayle Washington MD [address] [place] [address] [facility] [address] [place] [address] Referral ID Status Reason Start Date Expiration Date Visits Requested Visits Authorized [id number] Waiting for Response OON/Self Pay Override Patient cleared - OON Required Payment Collected 12/08/2021 03/08/2022 1 1 Reason Comments Appointment Reason Comments Results Care Teams (unrecognized sec tion and content) [facility] Relationship Specialty Start Date End Date Kimberley Gibbons, DO [address] [place] [address] PCP - General Family Practice 06/04/21 [facility] Relationship Specialty Start Date End Date Kimberley Gibbons, DO [address] [place] [address] PCP - General Family Practice 06/04/21 [facility] Relationship Specialty Start Date End Date Kimberley Gibbons, DO [address] [place] [address] PCP - General Family Medicine 06/04/21 [facility] Relationship Specialty Start Date End Date Kimberley Gibbons, DO [address] [place] [address] PCP - General Family Medicine 06/04/21 [facility] Relationship Specialty Start Date End Date Kimberley Gibbons DO [address] [place] [address] PCP - General Family Medicine 06/04/21 [facility] Relationship Specialty Start Date End Date Kimberley Gibbons DO [address] [place] [place] [address] PCP - General Family Medicine 06/04/21 FOR [...] BE BASED ON THE PRIMARY CLINICAL RECORDS. [facility] provides no warranty or guarantee of the accuracy or completeness of information in this document.
[2024-02-07 07:06] VITALS: BP 128/87; PULSE 96; TEMP 36.3; O2SAT 96
[2024-02-07] MEDS: 0.9 % SODIUM CHLORIDE 500 ML IV (07:10)
[2024-02-07] MEDS: BUPIVACAINE HCL 0.25% PF 25 MG/10 ML VIAL 5 ML INJ (07:46)
[2024-02-07] MEDS: DEXAMETHASONE SOD PHOS 10 MG/ML VIAL INJ (07:46)
[2024-02-07] MEDS: LIDOCAINE HCL 2% 400 MG/20 ML MDV 5 ML INJ (07:50)
--- NOTE | 2024-02-07 07:54 | P.ON_ITS ---
Date of procedure: 02/07/24 Pre-op diagnosis: Pain due to cervical spondylosis without myelopathy Post-op diagnosis: same as pre-op Procedure: Procedure: Left C3-4, 4-5 radiofrequency ablation Medications: Bupivacaine 0.25% 3cc, lidocaine 2% 3cc, dexamethasone 10mg The patient was seen and examined in the preoperative holding area.? The site was marked.? Written informed consent was obtained and placed on the chart.? The patient was brought to the medical procedure unit and placed in the prone position.? A timeout was completed verifying correct patient, procedure, positioning, and special requirements.? The skin overlying the target points, the designated medial branch, were prepped and draped in the usual sterile fashion.? The target point was achieved with a 20-gauge 15 cm with a 10 mm curved active tip radiofrequency cannula under direct fluoroscopic visualization .? The needle was inserted at level C3 on the left side. Needle tip position was confirmed with lateral fluoroscopic position.? Motor stimulation was carried out at 2 Hz up to 5 volts with the absence of extremity activity.? This was repeated at level C4, 5 on left side.?? Sensory stimulation was carried out.? Concordant pain was realized at the above- mentioned sites.? Then radiofrequency lesioning was carried out times 90 seconds at 80 degrees times 2 lesions at each level.? The radiofrequency probe was removed prior to cannula removal.? The above-mentioned injectate was placed in 1 mL increments.? The needle was removed.? Insertion sites were covered.? The patient was taken to the postoperative recovery area and monitored for an appropriate length of time before being found suitable for discharge in the company of a responsible adult. Surgeon: Rosibel Cotton Pathology: none sent Condition: stable Disposition: no change
[2024-02-07 07:58] VITALS: BP 145/101; PULSE 98; TEMP 36.4; O2SAT 94
[2024-02-07 08:01] VITALS: BP 137/105; PULSE 97; TEMP 36.4; O2SAT 94
== END 2024-02-07 08:20 | disposition home or self-care (01) ==
PROVIDERS: Visit Provider Anesthesiology
DX: M47.812 Spondylosis without myelopathy or radiculopathy, cervical region (principal)
CPT/HCPCS: J0665; J1100; J2704

== ENCOUNTER 2024-03-08 09:35 | Outpatient (OUT) | payer OTHER, SELFPAY ==
--- OUTSIDE RECORDS SUMMARY | 2024-03-08 09:59 | XMS_ITS | CCD ---
Author Organization [facility] Care Team Providers Care Local Flatbed Driver Name Role Phone GENOVEVA, CRISTOBAL F Primary [...] Edwige DO, Kimberley Leora Primary Care Provider [phone] Emmett Brunner Unavailable Letty Olson Unavailable Edwige [...] Unavailable MISC, DR LOPEZ Primary Care Unavailable DAYAIM ., DR RACHEL Layne Attending Unavailable DAYAMI [...] OSCAR Attending Unavailable SOLITARIO GARCÍA Attending Unavailable RICKY, SOLITARIO Attending Unavailable SOLITARIO GARCÍA Attending Unavailable RICKY SOLITARIO Attending Unavailable NICOLE TELLES Referring Unavailable NICOLE TELLES Referring Unavailable NANCY LUDWIG Attending Unavailable NANCY LUDWIG Admitting Unavailable NICOLE TELLES Referring Unavailable Gieditis , Rosibel Laurent Attending Unavailable Giedraitis , Rosibel Laurent Attending Unavailable Giedraitis , Rosibel Laurent Attending Unavailable Giedraitis , Rosibel Laurent Attending Unavailable Giedraitis , Rosibel Laurent Attending Unavailable Allergies Allergy Classification Reported Allergen(s) Allergy Type Date of Onset Reaction(s) Facility (9 sources) Ibuprofen; 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: [IBUPROFEN] Drug Allergy 0 Unknown, Diarrhea [facility] (20 sources) traMADol; 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: [TRAMADOL] Drug Allergy 9 Unknown, Nausea Only [facility] (1 source) Ibuprofen Drug Allergy [facility] (1 source) traMADol Drug Allergy 2 [facility] Repository Medications Current Medications Medication [...] on above: Take 1 capsule by mo [facility] twice daily. Take 1 capsule by [facility] two times a day. clonazePAM 0.5 [...] daily. 0 Active take 1 tablet by [facility] every twenty-four hours Pristiq 100 MG [...] tablet by mouth 0 12/01/2022 12/01/2023 Active [place]-3 Fatty Acids (FISH OIL) 1200 MG CAPS (1 source) [place]-3 Fatty Ac ids (FISH OIL) 1200 MG [...] Take 0.5 mg by mouth once daily. njvpe-xd-0-aeg-mje-rmxe joey-ast 1,845-637-95-80 mg cap (4 sources) jumrn-dq-7-dha-e pa-joey spho-ast 1,444-962-99-80 mg cap Take by mouth. 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 STOMACH, ANTRUM, BIOPSIES: [...] MALIGNANCY. Piyush Lozano M.D. Electronically Signed Out 02/04/2024 Clinical Information Pre-Op Diagnosis: CHRONIC GERD Operative [...] x 0.2 cm. Entirely 1cs. B. LEXI JOSHUA, DUODENAL BULB Received in formalin are four rosado-white tissue fragments from < 0.1 to 0.4 cm and are 0.9 x 0.2 x 0.2 cm in aggregate. Entirely 1cs. C. LEXI JOSHUA, GE JUNCTION Received in formalin are two rosado-white tissue fragments, < 0.1 cm and are 0.5 x 0.2 x 0.2 cm in aggregate. Entirely 1cs. jj tm David Hough M.D./kb2:02/03/2024 Microscopic Description A-C. Microscopic examination performed. Processing Lab: [address] [address] Interpretation Performed at [address] [address] SURGICAL PATHOLOGY CONSULTATION Patient Name: LEXI GARCIA Med Rec: [id number] [facility] ANATOMIC PATHOLOGY [address] [place] [id number] [facility] Follow-Upon 01-25-2024 Follow-Up [id number] Nikko Garcia 1970 Date Provider Department Center 01/25/2024 SOLITARIO ADAMS [facility] RHEUM [facility] Family History Problem Relation Age of Onset COPD Mother Coronary artery disease Father 56 Family Status - Relation Status Age at Mother Alive Father Level of Service:50121 OR OFFICE/OUTPATIENT ESTABLISHED LOW MDM 20 MIN (GC) Reason for Visit and Comments: Follow-up [356163] - 3 mth follow up [facility] Abstracton 11-30-2023 Abstract [id number] Nikko Garcia 1970 Provider Department Center 11/30/2023 SVITLANA TORRES C RHEUM [facility] Family History Problem Relation Age of Onset COPD Mother Coronary artery disease Father 56 Family Status - Relation Status Age at Mother Alive Father [facility] 36on 11-22-2023 36 Last visit: 10/26/23 Next visit: 01/25/24 CBC: 12/12/21 BMP: 01/21/23 [facility] Refillon 11-20-2023 Refill [id number] Nikko Garcia 1970 Date Provider Department Center 11/20/2023 SOLITARIO ADAMS C RHEUM [facility] Family History Problem Relation Age of Onset COPD Mother Coronary artery disease Father 56 Family Status - Relation Status Age at Mother Alive Father Reason for Visit and Comments: Med Refill [401192] [facility] Office Visiton 11-02-2023 Follow-up visit [id number] Nikko Garcia 1970 Date Provider Department Center 11/02/2023 Haroon-TIM SAMUELS [facility] Family History Problem Relation Age of Onset COPD Mother Coronary artery disease Father 56 Family Status - Relation Status Age at Mother Alive Father Level of Service:57336 OR OFFICE/OUTPATIENT ESTABLISHED MOD MDM 30 MIN Reason for Visit and Comments: Atrial Fibrillation [80] - symptoms [facility] Follow-Upon 10-26-2023 Follow-Up [id number] Nikko Garcia 1970 Date Provider Department Center 10/26/2023 SOLITARIO ADAMS C RHEUM Heri Heal Family History Problem Relation Age of Onset COPD Mother Coronary artery disease Father 56 Family Status - Relation Status Age at Mother Alive Father Level of Service:25247 OR OFFICE/OUTPATIENT ESTABLISHED LOW MDM 20 MIN (GC) Reason for Visit and Comments: Follow-up [770681] [facility] Celiac Disease Panelon 09-13 Gliadin Deam Pep IgA 1.9 U/mL Normal <7.0 [facility] Comment on above: Result Comment: CELIAC INTERPRETATION <7.0 Negative 7.0-10.0 Equivocal >10.0 Positive units: U/mL Performed By: #### C ELP #### [employer] [address] [place], [place] [id number] Ux Developer: Talib Clements MD Gliadin Deam Pep IgG <0.4 Normal <7.0 [facility] Comment on above: Result Comment: CELIAC INTERPRETATION <7.0 Negative 7.0-10.0 Equivocal >10.0 Positive units: U/mL Performed By: #### C ELP #### [employer] [address] [place], [place] [id number] Ux Developer: Talib Clements MD Tiss Transglutam IgA 0.4 U/mL Normal <7.0 [facility] Comment on above: Result Comment: CELIAC INTERPRETATION <7.0 Negative 7.0-10.0 Equivocal >10.0 Positive units: U/mL Performed By: #### C ELP #### [facility] [place], [place] [id number] Ux Developer: Talib Clements MD IgA [Mass/Vol] 184 mg/dL Normal 70-400 [facility] Comment on above: Performed By: #### C ELP #### [facility] [address] [place] [address] Ux Developer: Talib Clements MD H. pylori Antigenon 09-14-19 24 H. pylori Antigen Specimen Description .FECES Direct Exam NEGATIVE Report Status FINAL 09/14/2023 [facility] Comment on above: Performed By: #### F HPY #### [address] [address] Ux Developer: Talib Clements MD [facility] [address] [place] [address] Ux Developer: David Hough MD Orders Onlyon 08-05-2023 Orders Only [id number] Nikko Garcia 1970 F Date Provider Department Center 08/05/2023 SHANON HSIEH Family History Problem Relation Age of Onset COPD Mother Coronary artery disease Father 56 Family Status - Relation Status Age at Mother Alive Father [facility] Follow-Upon 06-22-2023 Follow-Up [id number] Nikko Garcia 1970 F Date Provider Department Center 06/22/2023 SOLITARIO AD[facility] RHEUM Heri Heal Family History Problem Relation Age of Onset COPD Mother Coronary artery disease Father 56 Family Status - Relation Status Age at Mother Alive Father Level of Service:39869 OR OFFICE/OUTPATIENT ESTABLISHED MOD MDM 30 MIN (GC) Reason for Visit and Comments: Follow-up [361032] - [facility] DEXA BONE DENSITYon 05-11-20 23 DEXA [...] Not Available Office Visiton 04-27-2023 Follow-up visit [id number] Nikko Garcia 1970 F Date Provider Department Center 04/27/2023 SOLITARIO AD[facility] RHEUM Heri Heal Family History Problem Relation Age of Onset COPD Mother Coronary artery disease Father 56 Family Status - Relation Status Age at Mother Alive Father Level of Service:48849 OR OFFICE/OUTPATIENT NEW MODERATE MDM 45-59 MINUTES (GC) Reason for Visit and Comments: 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 I let her know I sent a new mychart code so she can establish mychart and view her visit information there [facility] Office Visiton 02-10-2023 Follow-up visit [id number] Nikko Garcia 1970 F Date Provider Department Center 02/10/2023 Nory-ELODIA OSCAR [facility] Family History Problem Relation Age of Onset COPD Mother Coronary artery disease Father 56 Family Status - Relation Status Age at Mother Alive Father Level of Service:23858 OR OFFICE/OUTPATIENT ESTABLISHED MOD MDM 30 MIN Reason for Visit and Comments: Follow-up [922965] - Pt is here for f/u heart cath [facility] CBC AUTO DIFFon 10-07-2022 BASO # 0.0 103/ul Normal 0.0-0.1 [facility] Comment on above: Performed By: #### C BC #### [facility] [address] [place] [address] Dr. Donna Cantrell Basophils/100 WBC (Bld) 0.5 % Normal 0.2-2.0 [facility] Comment on above: Performed By: #### C BC #### [facility] [address] [place] [address] Dr. Donna Cantrell EO # 0.0 103/ul Normal 0.0-0.7 [facility] Comment on above: Performed By: #### C BC #### [facility] [address] [place] [address] Dr. Donna Cantrell Eosinophils/100 WBC (Bld) 0.0 % Critically low 0.9-7.0 [facility] Comment on above: Performed By: #### C BC #### [facility] [address] [place] [address] Dr. Donna Cantrell Erythrocyte distribution width (RBC) [Ratio] 13.6 % Normal 11.0-15.0 [facility] Comment on above: Performed By: #### C BC #### [facility] [address] [place] [address] Dr. Donna Cantrell Hematocrit (Bld) [Volume fraction] 42.0 % Normal 36.0-48.0 [facility] Comment on above: Performed By: #### C BC #### [facility] [address] [place] [address] Dr. Donna Cantrell Hemoglobin (Bld) [Mass/Vol] 14.4 g/dL Normal 12.0-16.0 [facility] Comment on above: Performed By: #### C BC #### [facility] [address] [place] [address] Dr. Donna Cantrell IG # 0.06 10e3/ul Critically high 0.00-0.03 [facility] Comment on above: Performed By: #### C BC #### [facility] [address] [place] [address] Dr. Donna Cantrell IG % 0.8 % Critically high 0.0-0.5 [facility] Comment on above: Performed By: #### C BC #### [facility] [address] [place] [address] Dr. Donna Cantrell LYMPH # 2.5 103/ul Normal 1.2-3.8 [facility] Comment on above: Performed By: #### C BC #### [facility] [address] [place] [address] Dr. Donna Cantrell Lymphocytes/100 WBC (Bld) 30.8 % Normal 20.5-60.0 [facility] Comment on above: Performed By: #### C BC #### [facility] [address] [place] [address] Dr. Donna Cantrell MANUAL DIFF REQ NO Normal [facility] Comment on above: Performed By: #### C BC #### [facility] [address] [place] [address] Dr. Donna Cantrell MCH (RBC) [Entitic mass] 30.3 pg Normal 26.7-34.0 [facility] Comment on above: Performed By: #### C BC #### [facility] [address] [place] [address] Dr. Donna Cantrell MCHC (RBC) [Mass/Vol] 34.3 g/dL Normal 29.9-35.2 [facility] Comment on above: Performed By: #### C BC #### [facility] [address] [address] [address] Donna Cantrell MCV (RBC) [Entitic vol] 88.2 fL Normal 81.0-99.0 [facility] Comment on above: Performed By: #### C BC #### [facility] [address] [address] [address] Donna Cantrell MONO # 0.5 103/ul Normal 0.3-0.8 [facility] Comment on above: Performed By: #### C BC #### [facility] [address] [place] [address] Dr. Donna Cantrell Monocytes/100 WBC (Bld) 6.4 % Normal 1.7-12.0 [facility] Comment on above: Performed By: #### C BC #### [facility] [address] [place] [address] Dr. Donna Cantrell NEUT # 4.9 103/ul Normal 1.4-6.5 [facility] Comment on above: Performed By: #### C BC #### [facility] [address] [place] [address] Dr. Donna Cantrell Neutrophils/100 WBC (Bld) 61.5 % Normal 43.0-75.0 [facility] Comment on above: Performed By: #### C BC #### [facility] [address] [place] [address] Dr. Donna Cantrell Platelet mean volume (Bld) [Entitic vol] 9.9 fL Normal 9.5-13.5 [facility] Comment on above: Performed By: #### C BC #### [facility] [address] [place] [address] Dr. Donna Cantrell PLT 234 103/ul Normal 150-450 [facility] Comment on above: Performed By: #### C BC #### [facility] [address] [place] [address] Dr. Donna Cantrell RBC 4.76 106/ul Normal 4.20-5.40 [facility] Comment on above: Performed By: #### C BC #### [facility] [address] [address] [address] Donna Cantrell WBC 8.0 103/ul Normal 4.0-11.0 [facility] Comment on above: Performed By: #### C BC #### [facility] [address] [address] [address] Donna Cantrell PROF CHEM 8 (BAS METB)on Anion gap [Moles/Vol] 13.9 mmol/L Normal [facility] Comment on above: Performed By: #### B MP #### [facility] [address] [address] [address] Donna Cantrell Calcium [Mass/Vol] 8.9 mg/dL Normal 8.5-10.1 [facility] Comment on above: Performed By: #### B MP #### [facility] [address] [address] [address] Donna Cantrell Chloride [Moles/Vol] 104 mmol/L Normal 98-107 [facility] Comment on above: Performed By: #### B MP #### [facility] [address] [address] [address] Donna Cantrell CO2 [Moles/Vol] 26.3 mmol/L Normal 21.0-32.0 [facility] Comment on above: Performed By: #### B MP #### [facility] [address] [address] [address] Donna Cantrell Creatinine [Mass/Vol] 0.91 mg/dL Normal 0.55-1.02 [facility] Comment on above: Performed By: #### B MP #### [facility] [address] [address] [address] Donna Cantrell EGFR-AF BULGARIAN >60 Normal >=60 [facility] Comment on above: Performed By: #### B MP #### [facility] [address] [address] [address] Donna Cantrell EGFR-NON AF BULGARIAN >60 Normal >=60 [facility] Comment on above: Performed By: #### B MP #### [facility] [address] [address] [address] Donna Cantrell Glucose [Mass/Vol] 127 mg/dL Critically high 74-106 [facility] Comment on above: Performed By: #### B MP #### [facility] [address] [address] [address] Donna Cantrell Potassium [Moles/Vol] 4.2 mmol/L Normal 3.5-5.1 [facility] Comment on above: Performed By: #### B MP #### [facility] [address] [address] [address] Donna Cantrell Sodium [Moles/Vol] 140 mmol/L Normal 136-145 [facility] Comment on above: Performed By: #### B MP #### [facility] [address] [place] [address] Dr. Donna Cantrell Urea nitrogen [Mass/Vol] 15.0 mg/dL Normal 7.0-18.0 [facility] Comment on above: Performed By: #### B MP #### [facility] [address] [place] [address] Dr. Donna Cantrell Urea nitrogen/Creatini ne [Mass ratio] 16.5 mg/mg Normal [facility] Comment on above: Performed By: #### B MP #### [facility] [address] [place] [address] Dr. Donna Cantrell PROTIMEon 10-07-2022 INR Coag (PPP) [Relative time] {INR} Normal [facility] Comment on above: Performed By: #### B LTM #### [facility] [address] [place] [address] Dr. Donna Cantrell INR GUIDELINES SEE BELOW Normal [facility] Comment on above: Result Comment: SHIRA RED INR: 2.0 - 3.0 CONDITIONS NOT LISTED BELOW 2.5 - 3.5 FOR PROSTHETIC HEART VALVE REPLACEMENT 2.5 - 3.5 RECURRENT THROMBOSIS Performed By: #### B LTM #### [facility] [address] [place] [address] Dr. Donna Cantrell PT Coag (PPP) [Time] 9.7 s Normal 9.0-11.6 [facility] Comment on above: Performed By: #### B LTM #### [facility] [address] [place], [place] [address] Dr. Donna Cantrell PTTon 10-07-2022 aPTT Coag (Bld) [Time] 29.6 s Normal 22.3-36.2 [facility] Comment on above: Performed By: #### B LTM #### [facility] [address] [id number] [address] Donna Cantrell SCREENING MAMMOGRAM W/AJ, BILATERAL*on [...] VERY IMPORTANT TO YOUR HEALTH. THE CURRENT [employer] AND [employer]PREHENS[employer]WORK GUIDELINES RECOMMENDS ANNUAL MAMMOGRAPHY BEGINNING AT AGE 38 THIS FACILITY USES A REMINDER SYSTEM TO ENSURE ALL PATIENTS RECEIVE REMINDER NOTIFICATIONS AT THE APPROPRIATE TIME BASED ON THE RECOMMENDATIONS OF THIS EXAM. Report reported and signed by Eder Barraza on 07/01/[address] [facility] Packaging Mechanic XR Shoulder Complete Right*o n 07-01-2022 XR [...] by Eder Barraza on 07/02/[address] [facility] Pack[employer] Mechanic XR Spine Lumbar Complete w/F jama AND [place] 07-01-2022 XR Spine Lumbar Complete w/Flex AND [...] by Eder Barraza on 07/02/[address] [facility] Packaging Mechanic CNPPearl 12-17-2021 CNPN Telephone (RHEULN) LEXI GARCIA ([id number]) 1970 F Date Time Provider Department 12/17/21 [...] PO Daily January 07, 2021 7:15am - ilxot-tc-8-vus-aod-hqhxvxc-as t 1,[id number] mg cap Take by mouth. - PNV [...] Estradiol (more content not included)... Normal [facility] BLEEDING TIMEon 12-16-2021 BLEEDING TIME 7.0 min Normal 1.0-8.[address] [facility] Comment on above: Result Comment: test done by Selam Almodovar Performed By: #### B [facility] #### [facility] [address] [place] [address] Dr. Donna Cantrell 25(OH)D3 SerPl-mCncon 2021 25-hydroxyvitamin D3 [Mass/Vol] 29.6 ng/mL Low 31.0-80.0 [facility] Comment on above: Order Comment: Speci men Type: BLOOD SPECIMEN Ordering Facility: [facility] Address: [address] [place] [address] Result Comment: Clas sification of 25 [place] Vitamin D status: Deficiency/Insufficiency: < or = 30 ng/ml. Sufficiency/Optimal Levels: 31-80 ng/mL Toxicity: > 100 ng/mL. Test performed by chemiluminescent immunoassay. Performed By: #### 1 989-3 #### [facility] CLIA [id number] [address] [place] [address] [place] CBC panel Auto (Bld)on 12-12 Erythrocyte distribution width (RBC) [Ratio] 14.4 % Normal 11.5-15.0 [facility] Comment on above: Order Comment: Speci men Type: BLOOD SPECIMEN Ordering Facility: [facility] Address: [address] [place] [address] Performed By: #### 5 8410-2 #### [facility] CLIA [id number] [address] [place] [address] [place] Hematocrit (Bld) [Volume fraction] 45.2 % Normal 36.0-46.0 [facility] Comment on above: Order Comment: Speci men Type: BLOOD SPECIMEN Ordering Facility: [facility] Address: [address] [place] [address] Performed By: #### 5 8410-2 #### [facility] CLIA [id number] [address] [place] [address] [place] Hemoglobin (Bld) [Mass/Vol] 14.8 g/dL Normal 11.5-15.5 [facility] Comment on above: Order Comment: Speci men Type: BLOOD SPECIMEN Ordering Facility: [facility] Address: [address] [place] [address] Performed By: #### 5 8410-2 #### [facility] CLIA [id number] [id number] [place] MCH (RBC) [Entitic mass] 29.7 pg Normal 26.0-34.0 [facility] Comment on above: Order Comment: Speci men Type: BLOOD SPECIMEN Ordering Facility: [facility] Address: [address] [place] [address] Performed By: #### 5 8410-2 #### [facility] CLIA [id number] [address] [place] [address] [place] MCHC (RBC) [Mass/Vol] 32.7 g/dL Normal 30.5-36.0 [facility] Comment on above: Order Comment: Speci men Type: BLOOD SPECIMEN Ordering Facility: [facility] Address: [address] [place] [address] Performed By: #### 5 8410-2 #### [facility] CLIA [id number] [address] [place] [address] [place] MCV (RBC) [Entitic vol] 90.8 fL Normal 80.0-100.0 [facility] Comment on above: Order Comment: Speci men Type: BLOOD SPECIMEN Ordering Facility: [facility] Address: [address] [place] [address] Performed By: #### 5 8410-2 #### [facility] CLIA [id number] [address] [place] [address] [place] Nucleated RBC (Bld) [#/Vol] 10*3/uL Normal <0.01 [facility] Comment on above: Order Comment: Speci men Type: BLOOD SPECIMEN Ordering Facility: [facility] Address: [address] [place], [place] [id number] Performed By: #### 5 8410-2 #### [facility] CLIA [id number] [address] [place] [address] [place] Platelet mean volume (Bld) [Entitic vol] 10.7 fL Normal 9.0-12.7 [facility] Comment on above: Order Comment: Speci men Type: BLOOD SPECIMEN Ordering Facility: [facility] Address: [address] [place] [address] Performed By: #### 5 8410-2 #### [facility] CLIA [id number] [address] [place] [address] [place] Platelets (Bld) [#/Vol] 259 10*3/uL Normal 150-400 [facility] Comment on above: Order Comment: Speci men Type: BLOOD SPECIMEN Ordering Facility: [facility] Address: [address] [place] [address] Performed By: #### 5 8410-2 #### [facility] CLIA [id number] [address] [place] [address] [place] RBC (Bld) [#/Vol] 4.98 10*6/uL Normal 3.90-5.20 [facility] Comment on above: Order Comment: Speci men Type: BLOOD SPECIMEN Ordering Facility: [facility] Address: [address] [place] [address] Performed By: #### 5 8410-2 #### [facility] CLIA [id number] [address] [place] [address] [place] [place] WBC (Bld) [#/Vol] 9.25 10*3/uL Normal 3.70-11.00 [facility] Comment on above: Order Comment: Speci men Type: BLOOD SPECIMEN Ordering Facility: [facility] Address: [address] [place] [address] Performed By: #### 5 8410-2 #### [facility] CLIA [id number] [address] [place] [address] [place] CNOVon 12-12-2021 CNOV Office Visit (AMARJIT ) LEXI GARCIA ([id number]) 1970 F Date Time Provider Department 12/12/21 [...] flat ground knees give out. COVID vaccine [employer] 06/26/21. Feels safe at home. 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 clinic for assisted pain recommendations/injections, prn acetaminophen, start prn heat/ice/otc arthritis creams, low impact weightbearing exercise as tolerated, avoid aggravating triggers,supportive care, start flexeril/notify office if not tolerated, improved with mobic, see ortho/pain clinic for assisted pain recommendations/injections, prn acetaminophen, start prn heat/ice/otc [...] Urine or urethritis: no Renal/liver disease: no FRAMEMAN/PNS/sz/cva/cancer disease: no HEME-Cytopenias/LAD/Clots: no Fevers: no Fatigue: [...] stable (more content not included)... Normal [facility] CRP SerPl-mCncon 12-12-2021 CRP [Mass/Vol] 1.4 mg/dL High <0.9 [facility] Comment on above: Order Comment: Speci men Type: BLOOD SPECIMEN Ordering Facility: [facility] Address: [address] [place] [address] Performed By: #### 1 988-5, 2-9, 67800-7, 3084-1 #### [facility] CLIA [id number] [address] [place] [address] [place] [facility] [place] Comprehensive metabolic 2000 panelon 12-12-2021 Albumin [Mass/Vol] 4.2 g/dL Normal 3.9-4.9 [facility] Comment on above: Order Comment: Speci men Type: BLOOD SPECIMEN Ordering Facility: [facility] Address: [address] [place] [address] Performed By: #### 1 988-5, 2132-9, 29313-5, 3084-1 #### [facility] CLIA [id number] [address] [place] [address] [place] ALP [Catalytic activity/Vol] 140 U/L High 34-123 [facility] Comment on above: Order Comment: Speci men Type: BLOOD SPECIMEN Ordering Facility: [facility] Address: [address] [place] [address] Performed By: #### 1 988-5, 2131-9, 87958-8, 4-1 #### [facility] CLIA [id number] [address] [place] [address] [place] ALT [Catalytic activity/Vol] 23 U/L Normal 7-38 [facility] Comment on above: Order Comment: Speci men Type: BLOOD SPECIMEN Ordering Facility: [facility] Address: [address] [place] [address] Performed By: #### 1 988-5, 2131-9, 63160-2, 3083-1 #### [facility] CLIA [id number] [address] [place] [address] [place] Anion gap [Moles/Vol] 10 mmol/L Normal 9-18 [facility] Comment on above: Order Comment: Speci men Type: BLOOD SPECIMEN Ordering Facility: [facility] Address: [address] [place] [address] Performed By: #### 1 988-5, 2131-9, 76010-1, 3083-1 #### [facility] CLIA [id number] [address] [place] [address] [place] AST [Catalytic activity/Vol] 24 U/L Normal 13-35 [facility] Comment on above: Order Comment: Speci men Type: BLOOD SPECIMEN Ordering Facility: [facility] Address: [address] [place] [address] Performed By: #### 1 988-5, 2131-9, 68219-5, 3084-1 #### [facility] CLIA [id number] [address] [place] [address] [place] Bilirubin [Mass/Vol] mg/dL Low 0.2-1.3 [facility] Comment on above: Order Comment: Speci men Type: BLOOD SPECIMEN Ordering Facility: [facility] Address: [address] [place] [address] Performed By: #### 1 988-5, 2131-9, 62146-5, 3084-1 #### [facility] CLIA [id number] [address] [place] [address] [place] Calcium [Mass/Vol] 9.6 mg/dL Normal 8.5-10.2 [facility] Comment on above: Order Comment: Speci men Type: BLOOD SPECIMEN Ordering Facility: [facility] Address: [address] [place] [address] Performed By: #### 1 988-5, 2131-9, 73678-7, 3083-1 #### [facility] CLIA [id number] [address] [place] [address] [place] Chloride [Moles/Vol] 104 mmol/L Normal 97-105 [facility] Comment on above: Order Comment: Speci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 UNITS RANGES ABN FL ST ABORH Capture O POS F Antibody 3 Cell Scrn Captu NEG F Normal [facility] Comment on above: Performed By: #### T S3C #### [facility] [address] [place] [phone] XR SPINE ENTIRE (2-3 VIEWS)o n 06-18-2020 [...] Ash Horta MD 06/19/20 Final result Normal [facility] FLUORO FOR SURGICAL PROCEDUR ESon 05-09-2020 FLUORO [...] Maximiliano Rachel MD 05/09/20 Final result Normal [facility] COVID-19, NAAon 05-05-2020 COVID-19, BELLE Not Detected Normal Not Detect [facility] Comment on above: Result Comment: This nucleic acid amplification test was developed and its performance characteristics determined by [employer]. Nucleic acid amplification tests include PCR and [...] detected) result in this assay. Performed at: [facility] [address] [facility], [place] [id number] [employer] Developer: Altagracia Quiñonez MD, Phone: [phone] Performed By: #### I RCOV ####[facility] [place] [phone] Basic Metabolic Panelon 10-3 0-2020 Anion gap [Moles/Vol] 12 mmol/L Normal 9-15 [facility] Comment on above: Performed By: #### B MP #### [facility] [address] [place] [address] Calcium [Mass/Vol] 10.5 mg/dL Critically high 8.5-9.9 [facility] Comment on above: Performed By: #### B MP #### [facility] [address] [place] [address] Chloride [Moles/Vol] 98 mmol/L Normal 95-107 [facility] Comment on above: Performed By: #### B MP #### [facility] [address] [place] [address] CO2 [Moles/Vol] 27 mmol/L Normal 20-31 [facility] Comment on above: Performed By: #### B MP #### [facility] [address] [place] [address] Creatinine [Mass/Vol] 0.82 mg/dL Normal 0.50-0.90 [facility] Comment on above: Performed By: #### B MP #### [facility] [address] [place] [address] GFR/1.73 sq M predicted among blacks MDRD (S/P/Bld) [Vol rate/Area] mL/min/{1.73_m2} Normal >60 [facility] Comment on above: Result Comment: >60 mL/min/1.73m2 EGFR, calc. for ages 18 and older using the MDRD formula (not corrected for weight), is valid for stable renal function. Performed By: #### B MP #### [facility] [address] [place] [address] GFR/1.73 sq M.predicted MDRD (S/P/Bld) [Vol rate/Area] mL/min/{1.73_m2} Normal >60 [facility] Comment on above: Result Comment: >60 mL/min/1.73m2 EGFR, calc. for ages 18 and older using the MDRD formula (not corrected for weight), is valid for stable renal function. Performed By: #### B MP #### [facility] [address] [place] [address] Glucose [Mass/Vol] 84 mg/dL Normal 70-99 [facility] Comment on above: Performed By: #### B MP #### [facility] [address] [place] [address] Potassium [Moles/Vol] 4.6 mmol/L Normal 3.4-4.9 [facility] Comment on above: Performed By: #### B MP #### [facility] [address] [place] [address] Sodium [Moles/Vol] 137 mmol/L Normal 135-144 [facility] Comment on above: Performed By: #### B MP #### [facility] [address] [place] [address] Urea nitrogen [Mass/Vol] 31 mg/dL Critically high 6-20 [facility] Comment on above: Performed By: #### B MP #### [facility] [address] [place] [address] CBC With Platelet No Differe ntialon 05-03-2020 Erythrocyte distribution width (RBC) [Ratio] 14.3 % Normal 11.5-14.5 [facility] Comment on above: Performed By: #### C BCND #### [facility] [address] [place] [address] Hematocrit (Bld) [Volume fraction] 41.3 % Normal 37.0-47.0 [facility] Comment on above: Performed By: #### C BCND #### [facility] [address] [place] [address] Hemoglobin (Bld) [Mass/Vol] 13.6 g/dL Normal 12.0-16.0 [facility] Comment on above: Performed By: #### C BCND #### [facility] [address] [place] [address] MCH (RBC) [Entitic mass] 30.7 pg Normal 27.0-31.3 [facility] Comment on above: Performed By: #### C BCND #### [facility] [address] [place] [address] MCHC (RBC) [Mass/Vol] 33.0 % Normal 33.0-37.0 [facility] Comment on above: Performed By: #### C BCND #### [facility] [address] [place] [address] MCV (RBC) [Entitic vol] 92.9 fL Normal 82.0-100.0 [facility] Comment on above: Performed By: #### C BCND #### [facility] [address] [place] [address] Platelets (Bld) [#/Vol] 241 10*3/uL Normal 130-400 [facility] Comment on above: Performed By: #### C BCND #### [facility] [address] [place] [address] RBC (Bld) [#/Vol] 4.44 10*6/uL Normal 4.20-5.40 [facility] Comment on above: Performed By: #### C BCND #### [facility] [address] [place] [address] WBC (Bld) [#/Vol] 11.0 10*3/uL Critically high 4.8-10.8 [facility] Comment on above: Performed By: #### C BCND #### [facility] [address] [place] [address] COVID-19, NAAon 05-03-2020 Source Swab Anterior nares Normal [facility] Comment on above: Performed By: #### I RCOV ####[facility] [place] [phone] Partial Thromboplastin Timeo n 05-03-2020 aPTT Coag (Bld) [Time] 31.3 s Normal 24.4-36.8 [facility] Comment on above: Performed By: #### P TT #### [facility] [address] [place] [address] Prothrombin Timeon 0 INR Coag (PPP) [Relative time] 0.9 {INR} Normal [facility] Comment on above: Performed By: #### P T #### [facility] [address] [place] [address] PT Coag (PPP) [Time] 11.9 s Low 12.3-14.9 [facility] Comment on above: Performed By: #### P T #### [facility] [address] [place] [address] Type and Screen Capture 3 sc rn cellon 05-03-2020 Type and Screen Capture 3 scrn cell PATIENT: JOSHUA Doss LOC: [facility] GABI# : [id number] : 1970 SEX: F ORDERED BY: STEPHANIE Harrison ORDERED : 05/03/2020 14:14 COLLECTED: 05/03/2020 14:14 ORDER : [id number] RECEIVED : 05/03/2020 19:43 TEST NAME RESULT UNITS RANGES ABN FL ST ABORH Capture O POS F Antibody 3 Cell Scrn Captu NEG F Normal [facility] Comment on above: Performed By: #### T S3C #### [facility] [address] [place] [phone] Established Visit (Orthopaed ic Surgery)on 04-26-2020 Established [...] biceps. No pain with resisted elbow flexion. Mapping Supervisor strength 5/5 Elbow flexion 5/5. Shoulder abduction [...] Chiara Espinosa PA-C Department of Orthopaedic Surgery [facility] Dictation performed with the use of voice recognition software. Syntax and grammatical errors may exist. Active Problems Problems Shoulder pain (719.41) (M25.519) Signatures Electronically signed by : Chiara Espinosa PA-C; Apr 26 2020 3:56PM EST (Author) [facility] Initial Visit (Orthopaedic S urgery)on 04-17-2020 Initial Visit (Orthopaedic Surgery) Diagnoses/Problems Assessed Shoulder pain (719.41) (M25.519) Patient Discussion/Summary Patient has right shoulder pain of uncertain origin. Exam today is suggestive of subacromial origin of pain. MRI scan shows tendinopathy but not an obvious tear. I recommended having her MRI scans evaluated by the musculoskeletal radiologist at [facility] I will call the patient back [...] her light touch sensation is grossly intact. Mapping Supervisor strength is 5/5 elbow flexion 5/5 shoulder [...] 97.52 kg Gayle Washington MD Work Phone: [facility] 12-12-2021 10:43-0400 Diastolic blood pressure 87 mm[Hg] Gayle Washington MD Work Phone: [facility] 12-12-2021 10:43-0400 Heart rate 88 /min Gayle Washington MD Work Phone: [facility] 12-12-2021 10:43-0400 Systolic blood pressure 125 mm[Hg] Gayle Washington MD Work Phone: [facility] 10-14-2021 10:30-0400 Diastolic blood pressure 80 mm[Hg] Emmett Brunner Other [facility] Other 10-14-2021 10:30-0400 SaO2% (BldA) [Mass fraction] 98 % Emmett Brunner Other [facility] Other 10-14-2021 10:30-0400 Systolic blood pressure 130 mm[Hg] Emmett Brunner Other [facility] Other 07-01-2021 15:30-0500 Body weight 94.62 kg Letty Wesley Other [facility] Other 07-01-2021 15:30-0500 Diastolic blood pressure 78 mm[Hg] Letty Wesley Other [facility] Other 07-01-2021 15:30-0500 Respiratory rate 18 /min Letty Wesley Other [facility] Other 07-01-2021 15:30-0500 SaO2% (BldA) [Mass fraction] 98 % Letty Wesley Other [facility] Other 07-01-2021 15:30-0500 Systolic blood pressure 118 mm[Hg] Lettyra Olson Other [facility] Other 06-18-2021 15:45-0500 Diastolic blood pressure 90 mm[Hg] Emmett Brunner Other [facility] Other 06-18-2021 15:45-0500 SaO2% (BldA) [Mass fraction] 97 % Emmett Brunner Other [facility] Other 06-18-2021 15:45-0500 Systolic blood pressure 122 mm[Hg] Emmett Brunner Other [facility] Other 05-15-2021 17:30-0500 Body weight 92.53 kg Emmett Brunner Other [facility] Other 05-15-2021 17:30-0500 Diastolic blood pressure 80 mm[Hg] Emmett Kannan Other [facility] Other 05-15-2021 17:30-0500 Systolic blood pressure 130 mm[Hg] Emmett Kannan Other [facility] Other 04-02-2021 14:30-0400 Body weight 92.63 kg Emmett Brunner Other [facility] Other 04-02-2021 14:30-0400 Diastolic blood pressure 88 mm[Hg] Emmett Kannan Other [facility] Other 04-02-2021 14:30-0400 SaO2% (BldA) [Mass fraction] 98 % Emmett Kannan Other [facility] Other 04-02-2021 14:30-0400 Systolic blood pressure 140 mm[Hg] Emmett Brunner Other [facility] Other Encounters Encounter Date Encounter Type Care Provider Facility Start: 02-07-2024 End: 02-07-2024 ambulatory Rosibel Cotton MD [facility]: [facility] Start: 02-03-2024 End: 02-03-2024 ambulatory NANCY LUDWIG [facility] Start: 01-25-2024 End: 01-25-2024 ambulatory [facility] Start: 01-24-2024 End: 01-24-2024 ambulatory Rosibel Cotton MD Facility: [facility] Start: 01-12-2024 End: 01-12-2024 ambulatory NICOLE TELLES [facility] Start: 01-12-2024 Encounter for other preprocedural examination [facility] Start: 12-20-2023 End: 12-20-2023 ambulatory Rosibel Cotton MD Facility: [facility] Start: 11-02-2023 End: 11-02-2023 ambulatory [facility] Start: 10-29-2023 End: 10-29-2023 ambulatory IZABEL LARA Not Available Start: 10-28-2023 End: 10-28-2023 ambulatory CLIFFORD VANN Not Available Start: 10-26-2023 End: 10-26-2023 ambulatory [facility] Start: 10-25-2023 End: 10-25-2023 ambulatory Rosibel Cotton MD [facility] Start: 09-20-2023 End: 09-20-2023 ambulatory Rosibel Cotton MD Facility: [facility] Start: 09-13-2023 End: 09-13-2023 Subsequent hospital visit by physician [facility] Comment on above: Flatulence, eructati on and gas pain Start: 09-13-2023 End: 09-13-2023 ambulatory NICOLE TELLES [facility] Start: 09-13-2023 Encounter for other preprocedural examination NICOLE R [facility] Start: 07-26-2023 End: 07-26-2023 ambulatory KIMBERLEY GIBBONS Not Available Start: 06-22-2023 End: 06-22-2023 ambulatory [facility] Start: 06-18-2023 End: 06-18-2023 ambulatory KIMBERLEY GIBBONS Not Available Start: 05-11-2023 End: 05-12-2023 ambulatory JESSIE REID Not Available Start: 04-27-2023 End: 04-27-2023 ambulatory [facility] Start: 04-07-2023 ambulatory Gayle Washington MD Work Phone: Rheumatology Comment on above: Fax info Start: 02-10-2023 End: 02-10-2023 ambulatory ELODIA [facility] Start: 10-16-2022 Encounter for preprocedural cardiovascular examination DR ULISES TIM [facility] Start: 10-16-2022 Encounter for preprocedural laboratory examination DR ULISES TIM [facility] Start: 10-13-2022 End: 10-13-[address] ULISES [...] Start: 12-12-2021 End: 12-13-2021 ambulatory KIMBERLEY GIBBONS [facility] Other Start: 12-12-2021 End: 12-12-2021 Patient encounter [...] 10-29-2021 Chart Update Cristobal miller Work Phone: [id number] Work Phone: Start: 10-14-2021 End: 10-14-2021 ambulatory Emmett Brunner Other [facility] Other Start: 10-14-2021 Patient encounter procedure Emmett Brunner [facility] Start: 09-23-2021 End: 09-23-2021 ambulatory Emmett Brunner Other [facility] Other Start: 09-23-2021 Telephone encounter Emmett Brunner [facility] Start: 07-01-2021 End: 07-01-2021 ambulatory Letty Wesley Other [facility] Other Start: 07-01-2021 Office outpatient vi sit 25 minutes Letty Wesley [facility] Start: 06-26-2021 (Procedure) Short Emmett Brunner [facility] Start: 06-26-2021 End: 06-26-2021 ambulatory Emmett Brunner Other [facility] Other Start: 06-18-2021 End: 06-18-2021 ambulatory Emmett Brunner Other [facility] Other Start: 06-18-2021 Office outpatient vi sit 25 minutes Emmett Kannan [facility] Start: 06-18-2021 Telephone encounter Emmett Brunner [facility] Start: 06-04-2021 End: 06-04-2021 Subsequent hospital visit by physician Christina [facility] Comment on above: Chronic hip pain, bi lateral [M25.551, M25.552, G89.29] Start: 05-21-2021 (Procedure) Short Emmett Brunner [facility] Start: 05-21-2021 End: 05-21-2021 ambulatory Emmettarmani Brunner Other [facility] Other Start: 05-15-2021 End: 05-15-2021 ambulatory Emmett Brunner Other [facility] Other Start: 05-15-2021 Office outpatient vi sit 25 minutes Emmett Kannan [facility] Start: 04-30-2021 (Procedure) Short Emmett Brunner [facility] Start: 04-16-2021 (Procedure) Short Emmett Brunner [facility] Start: 04-02-2021 Office outpatient vi sit 25 minutes Emmett Brunner [facility] Start: 02-21-2021 Office outpatient vi sit 15 minutes Cristobal F Genoveva Work Phone: [id number] Work Phone: Start: 06-25-2020 End: 06-27-2020 Evaluation and management of inpatient FEMI L[facility]pez [facility] Start: 06-25-2020 End: 06-28-2020 Patient encounter procedure CRISTOBAL Hampton [facility] Start: 06-18-2020 End: 06-23-2020 Patient encounter procedure CRISTOBAL F [facility] Start: 05-09-2020 End: 05-09-2020 Patient encounter procedure [facility] Procedures Date Procedure Procedure Detail Performing Clinician Start: 09-13-2023 Assay of gammaglobul in iga igd igg igm each Nicole Telles G[employer] 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 Work Phone: Start: 06-04-2021 Radex hips bilateral with pelvis minimum 5 views Gayle Wasihngton MD Work Phone: Start: 06-17-2020 Mammography Gayle jeffries MD Work Phone: Start: 06-09-2018 Lipid 1996 panel - S willian or Plasma Gayle Washington MD Work Phone: Plan of Treatment Date Care Activity Detail Author Start: 12-12-2024 DIABETES SCREEN DIABETES SCREEN [facility] Start: 12-12-2024 Diabetes Screening Diabetes Screening [facility] Start: 07-01-2024 Screening for malignant neoplasm of breast Breast cancer screen [facility] Start: 02-03-2024 End: 02-03-2024 Admission to same day surgery center 02/03/2024 8:45 AM EDT - 02/03/2024 9:05 AM EDT Surgery [facility] [address] [place], [place] [id number] Nancy Ludwig MD [address] [place] [address] ESOPHAGOGASTRODUODENOSCOPY [facility] Comment on above: ESOPHAGOGASTRODUODENOSCOPY Start: 02-03-2024 End: 02-03-2024 Esophagogastroduodenoscopy transoral diagnostic ESOPHAGOGASTRODUODENOSCOPY Chronic GERD 02/03/2024 8:[address] [facility] Start: 02-03-2024 Subsequent hospital visit by physician 02/03/2024 8:45 AM EDT Hospital Encounter [facility] [place] [address] [place] [address] Nancy Ludwig MD [address] [place] [address] [facility] Start: 07-05-2023 Annual Wellness Visit (Medicare Advantage) Annual Wellness Visit (Medicare Advantage) [facility] Start: 06-09-2023 Lipid 1996 panel - Serum or Plasma Lipid Screening [facility] Start: 06-09-2023 LIPID SCREEN LIPID SCREEN [facility] Start: 03-05-2023 COVID-19 Vaccine (2022- season) COVID-19 Vaccine ( season) [facility] Start: 03-05-2023 Influenza vaccination [facility] Start: 02-02-2023 Influenza vaccination Flu vaccine (#1) [facility] Start: 07-05-2022 DEPRESSION ASSESSMENT DEPRESSION ASSESSMENT [facility] Start: 03-19-2022 End: 12-17-2022 25-hydroxyvitamin D3 [Mass/volume] in Serum or Plasma VITAMIN D 25 HYDROXY Lab Routine Vitamin D deficiency Expected: 03/19/2022 (Approximate), Expires: 12/17/2022 [facility] Work Phone: Comment on above: Expected: 03/19/2022 (Approximate), Expi res: 12/17/2022 Start: 03-05-2022 Influenza vaccination [facility] Start: 08-21-2021 COVID-19 VACCINE (2 - Booster for Barbara series) COVID-19 VACCINE (2 - Booster for Barbara series) [facility] Start: 07-05-2021 DEPRESSION ASSESSMENT DEPRESSION ASSESSMENT [facility] Start: 06-17-2021 Mammography [facility] Start: 2018 Shingles vaccine (1 of 2) Shingles vaccine (1 of 2) [facility] Start: 2018 SHINGRIX VACCINE (1 of 2) SHINGRIX VACCINE (1 of 2) [facility] Start: 2013 COLOGUARD (FIT-DNA) COLOGUARD (FIT-DNA) [facility] Start: 2013 Colonoscopy COLONOSCOPY [facility] Start: 2013 COLORECTAL CANCER SCREENING COLORECTAL CANCER SCREENING [facility] Start: [address] COLONOGRAPHY [facility] Start: 2013 FECAL OCCULT BLOOD FECAL OCCULT BLOOD [facility] Start: 2013 Screening for malignant neoplasm of colon [facility] Start: 2013 SIGMOIDOSCOPY SIGMOIDOSCOPY [facility] Start: 1998 HPV TESTING HPV TESTING [facility] Start: 1989 PAP TESTING PAP TESTING [facility] Start: 1987 DTaP/Tdap/Td vaccine (1 - Tdap) DTaP/Tdap/Td vaccine (1 - Tdap) [facility] Start: 1987 Urine microalbumin profile [facility] Start: 1986 Hepatitis C screening Hepatitis C screen [facility] Start: 1986 HIV SCREENING HIV SCREENING [facility] Start: 1983 HIV screening HIV screen [facility] Start: 1980 Adult depression screening assessment DEPRESSION SCREENING [facility] Start: 1980 Depression Screen Depression Screen [facility] Start: 1978 Lipid panel [facility]ids [facility] Start: 1974 PNEUMOCOCCAL (1 - PCV) PNEUMOCOCCAL (1 - PCV) [facility] Start: 1974 Pneumococcal 0-64 years Vaccine (1 - PCV) Pneumococcal 0-64 years Vaccine (1 - PCV) [facility] Start: 1974 Pneumococcal vaccination Pneumococcal Vaccine (1 - PCV) [facility] Start: 1968 HEPATITIS B (1 of 3 - 3-dose series) HEPATITIS B (1 of 3 - 3-dose series) [facility] Start: 1968 Hepatitis B Vaccine (1 of 3 - 3-dose series) Hepatitis B Vaccine (1 of 3 - 3-dose series) [facility] Celiac Disease Panel Celiac Dise ase Panel Lab Routine Flatulence, eructation and gas pain 09/13/2023 4:20 PM EDT [facility] End: 09-13-2023 H. pylori antigen [facility] Comment on above: Once for 1 Occurrences starting 09/13/19 24 until 09/13/2023 End: 09-13-2023 H. Pylori Antigen, Stool H. Pylori Antigen, Stool Lab Routine Flatulence, eructation and gas pain 1 Occurrences starting 09/13/2023 until 09/13/[address] [employer] Work Phone: Comment on above: 1 Occurrences starting 09/13/2023 until 09/13/2023 Immunizations Immunization Date Immunization Notes Care Provider Sabina brumfield 04-06-2019 influenza, injectabl e, quadrivalent, preservative free Cristobal Tomas Work Phone: [id number] Work Phone: 04-06-2019 influenza virus vaccine, unspecified formulation Gayle Washington MD Work Phone: [facility] 05-15-2016 seasonal influenza, intradermal, preservative free Cristobal Tomas Work Phone: [facility] [employer] Payers Date Payer Category Payer Unknown 2021 Unknown CLAYTON ARNOLD HI X [id number] 2021-Present [phone] [address] [address] [place] [address] HMO [id number] 2020 Private Health Insurance [facility] [employer] [id number] 2020-2021 [address] [address] [place] [address] PPO [id number] 2018 Unknown [id number] [id number] 2017 Unknown [id number] 1968 Unknown [id number] 2.16.840.1.137305.3.579.2 .182 1968 Unknown [id number] 2.16.840.1.971526.3.579.2 .182 1968 Unknown [id number] 2.16.840.1.536067.3.579.2 .182 1968 Unknown [id number] 2.16.840.1.316251.3.579.2 .182 1968 Unknown [id number] 2.16.840.1.056091.3.579.2 .182 1968 Unknown [id number] 2.16.840.1.651945.3.579.2 .593 1968 Unknown [id number] 2.16.840.1.719050.3.579.2 .593 1968 Unknown [id number] 2.16.840.1.725807.3.579.2 .593 1968 Unknown [id number] 2.16.840.1.603200.3.579.2 .593 1968 Unknown [id number] 2.16.840.1.819221.3.579.2 .593 1968 Unknown [id number] 2.16.840.1.729089.3.579.2 .593 1968 Unknown [id number] 2.16.840.1.213008.3.579.2 .593 1968 Unknown [id number] 2.16.840.1.190163.3.579.2 .593 1968 Unknown [id number] 2.16.840.1.427673.3.579.2 .593 1968 Unknown [id number] 2.16.840.1.616858.3.579.2 .593 1968 Unknown [id number] 2.16.840.1.574640.3.579.2 .593 1968 Unknown [id number] 2.16.840.1.943721.3.579.2 .1259 1968 Unknown [id number] 2.16.840.1.425197.3.579.2 .1259 1968 Unknown [id number] 2.16.840.1.931030.3.579.2 .1259 1968 Unknown [id number] 2.16.840.1.696922.3.579.2 .1259 1968 Unknown [id number] 2.16.840.1.350497.3.579.2 .9 1968 Unknown [id number] 2.16.840.1.743345.3.579.2 .9 1968 Unknown [id number] 2.16.840.1.968797.3.579.2 .9 1968 Unknown [id number] 2.16.840.1.519560.3.579.2 .173 1968 Unknown [id number] 2.16.840.1.804911.3.579.2 .173 1968 Unknown [id number] 2.16.840.1.578851.3.579.2 .173 1968 Unknown [id number] 2.16.840.1.138858.3.579.2 .173 1968 Unknown [id number] 2.16.840.1.322744.3.579.2 .196 1968 Unknown [id number] 2.16.840.1.461157.3.579.2 .196 1968 Unknown [id number] 2.16.840.1.521405.3.579.2 .196 1968 Unknown [id number] 2.16.840.1.670252.3.579.2 .196 1968 Unknown [id number] 2.16.840.1.497790.3.579.2 .196 Social History Date Type Detail Facility Start: 06-04-2021 End: 09-08-2023 Tobacco smoking status NHIS Smokes tobacco daily [facility] History of tobacco use Cigarette Smoker [facility] Start: 05-03-2020 End: 06-04-2021 Cigarettes smoked current (pack per day) - Reported 1 [facility] Start: 06-04-2021 End: 09-08-2023 Tobacco use and exposure Smokeless tobacco non-user [facility] Start: 12-12-2021 End: 09-08-2023 Alcohol intake Current drinker of alcohol (finding) [facility] Start: 06-04-2021 History SDOH Alcohol Comment rarely. [facility] Start: 1970 Sex Assigned At Not on file [facility] Start: 11-29-2021 End: 12-09-2021 Exposure to SARS-CoV-2 (event) Unable to assess [facility] Start: 05-03-2020 End: 06-05-2021 Sex Assigned At [facility] Start: 05-05-2021 End: 06-04-2021 Exposure to SARS-CoV-2 (event) Not sure [facility] National Score (1-100), lower number is lower risk 95 [facility] (I/We) worried whether (my/our) food would run out before (I/we) got money to buy more. Never true [facility] [employer] Start: 09-08-2023 Tobacco Comment intermittently since 15 [facility] Start: 05-03-2020 Alcohol Comment hardly ever [employer] Medical Equipment Procedure Code Equipment Code Equipment Original Text Equipment Identifier Dates Impl Alena Spine R michael Ti35 Mm 55 Mm [id number] Start: 06-25-2020 Graft Spnl W11xh [id number] Corticocancellous Lord Triad - [id number] Start: 05-09-2020 Plate Spnl L28mm Antr Cerv 1 Lev Translational [place] Acp [id number] Start: 05-09-2020 Screw Spnl L13mm Dia4mm Ant Cerv [facility] Ang Compr [place] Acp [id number] Start: 05-09-2020 Connector Spnl C rss Lo Prof Adj Reline-O 5.5 X 45-65 Mm [id number] Start: 06-25-2020 Screw Spnl Dia5. 5mm Opn Tulip Roselyn Reline [id number] Start: 06-25-2020 Graft Bne Sub 30 cc 1.7-10mm Canc Chip Morselized Frz Dry - [id number] Start: 06-25-2020 Graft Bne Sub 5m l Mtrx Cellular Osteocel + - [id number] Start: 06-25-2020 Spacer Spnl L W1 [id number] 4deg Post Lum Intbdy Fus Lord [id number] [...] able to decrease Celebrex to 200 BID [facility] Follow-up Patient [...] surgery with numbness in hands and decreased digester cook strength, R>L shoulders, neck (better since ablation). [...] Coronary artery disease involving [place] coronary artery of [place] heart without angina pectoris Degenerative joint disease [...] 80 mg ta (more content not included)... [facility] 11-02-2023 Note ecg [facility] 11-02-2023 Note Cardiovascular Medic [facility] SUBJECTIVE Chief Complaint Patient presents with [...] Coronary artery disease involving [place] coronary artery of [place] heart without angina pectoris Degenerative joint disease [...] , Rfl: o (more content not included)... [facility] 10-26-2023 Note Attestation signed by [...] will decrease Celebrex due to worsening heartburn [facility] Follow-up Patient [...] surgery with numbness in hands and decreased digester cook strength, R>L shoulders, neck. AM stiffness lasts 1-2 hrs (was 2-3 hr prior), on average daily. Denies joint erythema, swelling, warmth. Comprehensive History: Patient Active Problem List Diagnosis Chest pain, atypical Benign essential HTN HOFFMAN (dyspnea on exertion) Fibromyalgia Elevated d-dimer Mixed hyperlipidemia GERD without esophagitis Orthopnea Sleep disturbances Abnormal nuclear stress test Unstable angina ([facility]) Coronary artery disease involving [place] coronary artery of [place] heart without angina pectoris Degenerative joint disease [...] Chronic pain disorder Depression Factor V Leiden ([facility]) Fibromyalgia, primary GERD (gastroesophageal reflux disease) [...] 400 mg capsul (more content not included)... [facility] 10-26-2023 Note PT STATE SHE HAS BEE N DIZZY RECENTLY PT STATES TAKES MEDS TO MANAGE DEPRESSION SX [facility] 06-22-2023 Note Attestation signed by [...] subchondral sclerosis noted on fist [facility] joints [facility] Follow-up Patient [...] Coronary artery disease involving [place] coronary artery of [place] heart without angina pectoris Degenerative joint disease [...] the morning. aspirin (more content not included)... [facility] 04-27-2023 Note Attestation signed [...] today to establish care, previously followed by [facility] Exam was remarkable for diffuse tenderness consistent with fibromyalgia, she reports episodic swelling in hands and feet, no synovitis was noted on exam today Will do further workup as below We discussed risks of NSAIDs including but not limited to: kidney impairment, GI ulcer/bleed, CV risk, etc. 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 She formerly saw [facility] Rheumatology with last visit in December 2021 per available records. She was diagnosed with fibromyalgia by former package pick up on the basis of widespread MSK pain, [...] after CTS release with dropping things, decreased digester cook strength. Reports sometimes she has swelling, redness, [...] Patient Active Proble (more content not included)... [facility] 04-07-2023 Note Reviewed recent [...] draw Elodia Oscar NP Division of Cardiology, [facility]- [phone] Pager- [phone] Email- [email or web address] 04-07-2023 Miscellaneous Notes Notify patient medication [...] Assoc. diagnoses: Vitamin B12 deficiency SED RATE BETHREN [SQWSR] 10/05/22 10/06/23 10/05/22 Auth. provider: Gayle Washington MD Assoc. diagnoses: Elevated sed rate, Elevated C-reactive protein (CRP) C-REACTIVE PROTEIN (CRP) [SQCRP] 10/05/22 10/06/23 10/05/22 Auth. provider: Gayle Washington MD Assoc. diagnoses: Elevated sed rate, Elevated C-reactive protein (CRP) Chart notes faxed with confirmation. documented in this encounter [facility] 02-10-2023 Note Coronary artery dise ase is stable Continue GDMT- ASA, lipitor, toprol continue risk factor modifications- heart healthy diet, regular exercise as tolerated and continue all medications. Pt to have repeat lipid and lft levels drawn soon [facility] 02-10-2023 Note D/W pt that may need to see GI for further evaluation for other etiology of her chest pain and may be r/t GERD [facility] 02-10-2023 Note Currently stable [facility] 02-10-2023 Note Currently denied chest pain [facility] 02-10-2023 Note Continue lipitor 80 mg, lipid level well controlled currently [facility] 02-10-2023 Note Hypertension is stab le and well controlled at home Continue norvasc, toprol [facility] 02-10-2023 Note [facility] CARDIOLOG[facility] [...] stenosis. LCX - (more content not included)... [facility] 02-10-2023 Note Review of Systems All other systems reviewed and are negative. [facility] 10-13-2022 Note OPERATIVE NOTE [...] left cheek was prepped with Betadine. A [place] tip Bovie was then used to make [...] the recovery room in good condition. [facility] 10-07-2022 Note EXAM: XR CHEST 2 V HISTORY: Pre-surgery evaluation COMPARISON: None. TECHNIQUE: PA and lateral views of the chest. FINDINGS: The cardiomediastinal silhouette is normal. No focal consolidation is identified. There is no pneumothorax. No pleural effusion is noted. The osseous structures are intact. IMPRESSION: No acute cardiopulmonary process. Electronically authenticated by: JOSIAH LE Date: 2022-10-07 11:27 [facility] 07-23-2022 Note CONSULTATION CONSULTATION DATE: 07/23/2022 HISTORY [...] Patient does agree with this plan. [facility] 06-11-2022 Note CONSULTATION CONSULTATION DATE: [...] q.h.s. 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 [facility] 05-18-2022 Miscellaneous Notes Patient's request for medication is as follows: Requested Prescriptions Signed Prescriptions Disp Refills celecoxib (CELEBREX) 200 mg capsule 180 capsule 3 Sig: Take 1 capsule by mouth twice daily. Prescription(s) as above. Please process accordingly. Gayle Washington MD [employer] message sent to patient reminding her to [...] Lab Orders Expected Expires Ordered HLA-B27 PCR [[id number]] 06/19/21 06/18/22 06/18/21 Auth. provider: Gayle Washington MD Assoc. diagnoses: Elevated sedimentation rate VITAMIN D 25 HYDROXY [SQVITD] 03/19/22 12/17/22 12/17/21 Auth. provider: Gayle Washington MD Assoc. diagnoses: Vitamin D deficiency documented in this encounter [facility] 04-16-2022 Note CONSULTATION PROCEDURE DATE: [...] the clinic in three months' time. [facility] 04-09-2022 Note CONSULTATION CONSULTATION DATE: [...] to the clinic for her injection. [facility] 01-01-2022 Note CONSULTATION CONSULTATION DATE: 01/01/2022 This is a pleasant 51-year-old female returning to the clinic status post #2 bilateral MBB on C3, C4 and C5 that afforded her 80% relief for 5 days. She was recently at her package pick up's and was diagnosed with fibromyalgia and she [...] be followed up in the clinic post-procedure. [facility] Signed and Approved by: BEN MONROE . 01/08/2022 10:22:00 [facility] 12-17-2021 Miscellaneous Notes Pt aware. Kamryn Luna [...] superior labral tear; documented in this encounter [facility] 12-12-2021 Note HNO ID: [id number] Author: Gayle Washington MD Service: ? Author [...] improved with mobic, see ortho/pain clinic for assisted pain recommendations/injections, prn acetaminophen, start prn heat/ice/otc arthritis creams, low impact weightbearing exercise as tolerated, avoid aggravating triggers,supportive care, start flexeril/notify office if not tolerated, improved with mobic, see ortho/pain clinic for assisted pain recommendations/injections, prn acetaminophen, start prn heat/ice/otc [...] Urine or urethritis: no Renal/liver disease: no FRAMEMAN/PNS/sz/cva/cancer disease: no HEME-Cytopenias/LAD/Clots: no Fevers: no Fatigue: [...] HISTORY: PMH (more content not included)... [facility] 12-12-2021 History of Present illness [...] improved with mobic, see ortho/pain clinic for assisted pain recommendations/injections, prn acetaminophen, start prn heat/ice/otc arthritis creams, low impact weightbearing exercise as tolerated, avoid aggravating triggers,supportive care, start flexeril/notify office if not tolerated, improved with mobic, see ortho/pain clinic for superintendent container terminal pain recommendations/injections, prn acetaminophen, start prn heat/ice/otc [...] yes Dactylitis: no H/o precedent/frequent infection(s): no Enthesopathy/Juda's/heel/plant ar tenderness: as above Skin thickening, psoriasis, photosensitivity, purpura: no Nail changes: ridges/ripples Alpecia, patchy: no Eye inflammation: glasses, R retinal hole SICCA: dry eyes Oral/nasal/genital ulcers: no GI problems-diarrhea/bleeding/IBD/Gl uten intolerence/Dysphagia: gerd Raynaud's phenomenon/digital ulcers: no Organ inv-Serositis: no Lung disease/ILD: no Myopathy/proximal muscle weakness: no Abnormal Urine or urethritis: no Renal/liver disease: no FRAMEMAN/PNS/sz/cva/cancer disease: no HEME-Cytopenias/LAD/Clots: no Fevers: no Fatigue: [...] repeated ear surgeries, 2004 s/p C6/7 fusion 2016 s/p b/l carpal [...] flat ground knees give out. COVID vaccine [employer] 06/26/21. Feels safe at home. Has enough food, supplies and medications. Overall uncomfortable but happy with rheum care. = supportive care, start celebrex/notify office if not tolerated, OFF mobic/initially improved with medication but now effect wore off, prn flexeril, see pain clinic for superintendent container terminal pain recommendations, see ortho/pain clinic for superintendent container terminal pain recommendations/injections, prn acetaminophen, start prn heat/ice/otc [...] to side effects OFF lyrica no response superintendent container terminal pain recommendations per primary care provider/pain clinic [...] video & audio (virtual) or phone or [id number] patient care, completing clinical documentation, obtaining and/or [...] letter/electronic shared medical records. cc Dr.Renee Leora Gibbons, documented in this encounter [facility] 12-12-2021 Instructions Gayle Washington MD [...] to side effects OFF lyrica no response assisted pain recommendations per primary care provider/pain clinic nonfasting labs as scheduled Thank you. documented in this encounter [facility] 12-09-2021 Miscellaneous Notes Patient has been scheduled as requested for 12/12/21. Referral has been attached. I spoke with Ms. Garcia and she is aware of all of the appointment details. Nataliya DYKES December 09, 2021 2:43 PM Patient calling to schedule follow up appt with Dr Washington no schedule pulling for [place] only Hilda. Patient requesting call at [phone] Washington is still at [place]. Please advise. documented in this encounter [facility] 11-18-2021 Note PAIN MANAGEMENT CONS ULTATION CONSULTATION DATE: 11/18/2021 CHIEF COMPLAINT: Cervical pain. HISTORY OF PRESENT ILLNESS: This is a 51-year-old female who had, in the past, been seen by Dr. Brunner, Pain Management in [place], [place]. The patient had changed her insurances to As Seen on TV and, as such, Dr. Brunner does not [...] cervical fusion [place] [address] Femi Duarte. Bulging disc with [...] like to proceed. CC: Kimberley Gibbons D.O. [facility] Signed and Approved by: DR RACHEL STOCK . 11/25/2021 12:22:00 [facility] 10-14-2021 Evaluation note Encounter Date Diagnosis Assessment [...] nerve block in the future if needed. [facility] 12-28-2021 Evaluation note* Encounter Date Diagnosis [...] right hip to further evaluate her pain. [facility] 12-15-2021 Evaluation note* Encounter Date Diagnosis [...] (ICD-10 - G89.29) Continue medications as prescribed [facility] 11-11-2021 Evaluation note* Encounter Date Diagnosis [...] (ICD-10 - G89.29) Continue medications as prescribed [facility] 09-29-2021 Evaluation note* Encounter Date Diagnosis [...] injection under ultrasound guidance in the future. [facility] Evaluation note* Diagnosis Secondary osteoarthritis of [...] Chronic pain syndrome documented in this encounter [facility] noteNo InformationNort [employer] Other Evaluation note* Diagnosis Secondary osteoarthritis of multiple sites- Primary Osteoarthrosis involving, or with mention of more than one site, but not specified as generalized, multiple sites Vitamin D deficiency Unspecified vitamin D deficiency Fibromyalgia Mylagia and myositis, unspecified documented in this encounter [facility] note* Diagnosis Secondary osteoarthritis of multiple sites Osteoarthrosis involving, or with mention of more than one site, but not specified as generalized, multiple sites documented in this encounter [facility] note* Diagnosis Chronic hip pain, bilateral Chronic left shoulder pain Pain in joint, shoulder region Chronic pain of both knees Bilateral hand pain Pain in limb documented in this encounter [facility] note* Diagnosis Secondary osteoarthritis of multiple sites Osteoarthrosis involving, or with mention of more than one site, but not specified as generalized, multiple sites Cervicalgia Chronic bilateral low back pain with bilateral sciatica documented in this encounter [facility] note* Diagnosis Flatulence, eructation and gas pain Flatulence, eructation, and gas pain Chronic GERD documented in this encounter [facility] general Narrative - Reported* Type Description Date Medical History allergies Medical History factor 5 blood disorder Medical History anxiety Medical History depression Medical History bipolar Medical History lumbar DDD Surgical History back surgery 06/2021 Surgical History neck surgery 05/2021 Hospitalization History see above Blabroom Other History general Narrative - Reported* Type Description Date Medical History allergies Medical History factor 5 blood disorder Medical History anxiety Medical History depression Medical History bipolar Medical History lumbar DDD Medical History osteoarthritis of multiple joint s Surgical History back surgery 06/2021 Surgical History neck surgery 05/2021 Hospitalization History see above Blabroom Other History of Present illness NarrativePatient has continued intermittent pain symptoms in her right shoulder she is remotely status post rotator cuff repair she had a follow-up MRI scan recently she would like to review with me today. She had a subacromial injection but it did not resolve all of her symptoms.[id number] Work Phone: Reason for referral (narrative)* Diagnostic Procedure Only (Routine) - Closed Specialty Diagnoses / Procedures Referred By Contac t Referred To Contact XR IMAGING Diagnoses Bilateral hand pain Procedures XR HAND GENERAL 3V PA/LAT/OBL BILATERAL X-RAY HAND MINIMUM 3 VIEWS Gayle Washington MD [address] [address] Xr Imaging Referral ID Status Reason Start Date Expiration Date V isits Requested Visits Authorized [id number] Closed Auto-Generate d Referral 06/04/2021 07/04/2022 1 1 * Diagnostic Procedure Only (Routine) - Closed Specialty Diagnoses / Procedures Referred By Contac t Referred To Contact XR IMAGING Diagnoses Chronic pain of both knees Procedures XR KNEE GENERAL 4V AP BOTH/PA BOTH/LAT/MERC BILATERAL KNEE AP-WGT/LAT/MERCHANT Gayle Washington MD [address] [place] [address] Xr Imaging Referral ID Status Reason Start Date Expiration Date V isits Requested Visits Authorized [id number] Closed Auto-Generate d Referral 06/04/2021 07/04/2022 1 1 * Diagnostic Procedure Only (Routine) - Closed Specialty Diagnoses / Procedures Referred By Contac t Referred To Contact XR IMAGING Diagnoses Chronic left shoulder pain Procedures XR SHOULDER GENERAL 3V OR MORE AP/TRUE AP/OTHER LEFT X-RAY SHOULDER COMPLET MIN 2 VIEWS Gayle Washington MD [address] [place] [address] Xr Imaging Referral ID Status Reason Start Date Expiration Date V isits Requested Visits Authorized [id number] Closed Auto-Generate d Referral 06/04/2021 07/04/2022 1 1 * Diagnostic Procedure Only (Routine) - Closed Specialty Diagnoses / Procedures Referred By Contac t Referred To Contact XR IMAGING Diagnoses Chronic hip pain, bilateral Procedures XR HIP BILATERAL 5V PEL/AP/LAT EACH HIP RADEX HIPS BILATERAL WITH PELVIS MINIMUM 5 VIEWS Gayle Washington MD [address] [place] [address] Xr Imaging Referral ID Status Reason Start Date Expiration Date V isits Requested Visits Authorized [id number] Closed Auto-Generate d Referral 06/04/2021 07/04/2022 1 1 [facility] Diagnostic Procedure Only (Routine) - Closed Specialty Diagnoses / Procedures Referred By Contac t Referred To Contact XR IMAGING Diagnoses Bilateral hand pain Procedures XR HAND GENERAL 3V PA/LAT/OBL BILATERAL X-RAY HAND MINIMUM 3 VIEWS Gayle Washington MD [address] [place] [address] Xr Imaging Referral ID Status Reason Start Date Expiration Date V isits Requested Visits Authorized [id number] Closed Auto-Generate d Referral 06/04/2021 07/04/2022 1 1 [facility] Summary Purpose Family History No [...] pain, left Procedures CONSULT TO ORTHOPAEDICS OFFICE/OUTPATIENT [facility] 60-74 MINUTES Gayle Washington MD [address] [place] [address] Referral ID Status Reason Start Date Expiration Date Visits Requested Visits Authorized [id number] Pending Review PCP Requested Referral 12/12/2021 12/12/2022 1 1 Additional Source Comments INFORMATION SOURCE (unrecogn ized section and content) DATE CREATED AUTHOR 06/20/2020 [facility] DATE CREATED AUTHOR AUTHOR'S ORGANIZ ATION 06/27/2020 [facility] DATE CREATED AUTHOR AUTHOR'S ORGANIZ ATION 12/01/2020 [employer] DATE CREATED AUTHOR AUTHOR'S ORGANIZ ATION 02/23/2021 [facility] DATE CREATED AUTHOR AUTHOR'S ORGANIZ ATION 02/23/2021 [employer] DATE CREATED AUTHOR AUTHOR'S ORGANIZ ATION 12/26/2021 [facility] DATE CREATED AUTHOR AUTHOR'S ORGANIZ ATION 07/02/2022 [facility] DATE CREATED AUTHOR AUTHOR'S ORGANIZ ATION 10/08/2022 [facility] DATE CREATED AUTHOR AUTHOR'S ORGANIZ ATION 10/20/2022 [facility] DATE CREATED AUTHOR AUTHOR'S ORGANIZ ATION 10/30/2023 [facility] DATE CREATED AUTHOR AUTHOR'S ORGANIZ ATION 01/27/2024 [facility] DATE CREATED AUTHOR AUTHOR'S ORGANIZ ATION 02/05/2024 [facility] DATE CREATED AUTHOR AUTHOR'S ORGANIZ ATION 02/21/2024 [facility] Source Comments (unrecognize d section and content) In the event this informatio n is protected by the Federal Confidentiality of Alcohol and Drug Abuse Patient Records regulations: The Federal rules restrict any use of the information to criminally investigate or prosecute any alcohol or drug abuse patient.[facility] the event this information is protected by the Federal Confidentiality of Alcohol and Drug Abuse Patient Records regulations: The Federal rules restrict any use of the information to criminally investigate or prosecute any alcohol or drug abuse patient.[facility] the event this information is protected by the Federal Confidentiality of Alcohol and Drug Abuse Patient Records regulations: The Federal rules restrict any use of the information to criminally investigate or prosecute any alcohol or drug abuse patient.[facility] the event this information is protected by the Federal Confidentiality of Alcohol and Drug Abuse Patient Records regulations: The Federal rules restrict any use of the information to criminally investigate or prosecute any alcohol or drug abuse patient.[facility] the event this information is protected by the Federal Confidentiality of Alcohol and Drug Abuse Patient Records regulations: The Federal rules restrict any use of the information to criminally investigate or prosecute any alcohol or drug abuse patient.[facility] the event this information is protected by the Federal Confidentiality of Alcohol and Drug Abuse Patient Records regulations: The Federal rules restrict any use of the information to criminally investigate or prosecute any alcohol or drug abuse patient.[facility] Reason for Visit (unrecogniz ed section and content) Reason Comments Follow Up Pain ongoing generalized pain. Specialty Diagnoses / Procedures Referred By Contnelida t Referred To Contact RHEUMATOLOGY Diagnoses Follow Up Procedures OFFICE/OUTPATIENT ESTABLISHED MOD MDM 30-39 MIN Follow Up Gayle Washington MD [address] [place] [address] [facility] [address] [place] [address] Referral ID Status Reason Start Date Expiration Date Visits Requested Visits Authorized [id number] Waiting for Response OON/Self Pay Override Patient cleared - OON Required Payment Collected 12/08/2021 03/08/2022 1 1 Reason Comments Appointment Reason Comments Results Care Teams (unrecognized sec tion and content) Local Flatbed Driver Relationship Specialty Start Date End Date Kimberley Gibbons, DO [address] [place] [address] PCP - General Family Practice 06/04/21 Local Flatbed Driver Relationship Specialty Start Date End Date Kimberley Gibbons, DO [address] [place] [address] PCP - General Family Practice 06/04/21 Local Flatbed Driver Relationship Specialty Start Date End Date Kimberley Gibbons, DO [address] [place] [address] PCP - General Family Medicine 06/04/21 Local Flatbed Driver Relationship Specialty Start Date End Date Kimberley Gibbons, DO [address] [place] [address] PCP - General Family Medicine 06/04/21 Local Flatbed Driver Relationship Specialty Start Date End Date Kimberley Gibbons, [address] [place] [address] PCP - General Family Medicine 06/04/21 Local Flatbed Driver Relationship Specialty Start Date End Date Kimberley Gibbons DO [address] [place] [address] PCP - General Family Medicine 06/04/21 FOR [...] BE BASED ON THE PRIMARY CLINICAL RECORDS. [employer] [facility]. provides no warranty or guarantee of the accuracy or completeness of information in this document.
--- NOTE | 2024-03-08 10:00 | P.CN_ITS ---
Consult Note: HPI Data of Consult Patient: known to practice within the last 3 years Requesting Physician: Stephanie Mike NP Primary Care Provider: Non-Staff Physician, MD Consult Narrative Reason for consult: chronic right low back pain Narrative: Lizbeth Garcia a pleasant 53 year old female presents for evaluation of chronic pain. Patient has a hx of cervical RFAs with Dr Thornton and tailbone RFAs with Dr Caballero. Lumbar spine surgery with lumbosacral fusion per pt L5-Sacral. Patient reporting pain today 4-5/10 throbbing numbing neck and and sharp throbbing stab pain in right low back, hip, and right leg. Pain increased with standing/walking, housework, bending, stairs, activity, pain decreased with sitting and lying. Patient finds mild benefit from flexeril, tylenol, and celebrex. Patient failed PT in the past, active in HEP >6 weeks without benefit. Denies loss of bowel/bladder. Recent xray imaging of umbar spine consistent with degenerative changes, SIJ no abnormal findings. Worsening numbness tingling and weakness of RLE. cc:: CC: Stephanie Mike NP Review of Systems ROS Status of ROS 10 or more systems reviewed and unremark able except as noted in history and below Musculoskeletal Reports: back pain, neck pain and extremity pain; Denies: joint pain or muscle weakness PFSH PFSH Medical History Former cigarette smoker ?Z87.891 - Personal history of nicotine dependence (ICD-10) Heartburn ?R12 - Heartburn (ICD-10) Acid reflux ?K21.9 - Gastro-esophageal reflux disease without esophagitis (ICD-10) Osteoarthritis ?M19.90 - Unspecified osteoarthritis, unspecified site (ICD-10) Low back pain ?M54.50 - Low back pain, unspecified (ICD-10) Factor 5 Leiden mutation, heterozygous ?D68.51 - Activated protein C resistance (ICD-10) Anxiety ?F41.9 - Anxiety disorder, unspecified (ICD-10) Obesity ?E66.9 - Obesity, unspecified (ICD-10) Diabetes ?E11.9 - Type 2 diabetes mellitus without complications (ICD-10) SOB (shortness of breath) ?R06.02 - Shortness of breath (ICD-10) High cholesterol ?E78.00 - Pure hypercholesterolemia, unspecified (ICD-10) Hypertension ?I10 - Essential (primary) hypertension (ICD-10) Irregular heart beat ?I49.9 - Cardiac arrhythmia, unspecified (ICD-10) Angina at rest ?I20.89 - Other forms of angina pectoris (ICD-10) Surgical History H/O arthroscopic knee surgery ?Z98.890 - Other specified postprocedural states (ICD-10) H/O lumbosacral spine surgery ?Z98.890 - Other specified postprocedural states (ICD-10) H/O cervical spine surgery ?Z98.890 - Other specified postprocedural states (ICD-10) H/O arthroscopy of shoulder ?Z98.890 - Other specified postprocedural states (ICD-10) H/O carpal tunnel repair ?Z98.890 - Other specified postprocedural states (ICD-10) H/O: hysterectomy ?Z90.710 - Acquired absence of both cervix and uterus (ICD-10) Meds Home Medications and Allergies Home Medications ?Medication ?Instructions ?Recorded ?Confirmed ?Type B-complex with vitamin C 1 tab PO DAILY 08/26/23 02/07/24 History acetaminophen 500 mg tablet 1,500 mg PO DAILY PRN pain 08/26/23 02/07/24 History (Tylenol Extra Strength) amlodipine 5 mg tablet 5 mg PO DAILY 08/26/23 02/07/24 History aspirin 81 mg capsule 81 mg PO DAILY 08/26/23 02/07/24 History atorvastatin 80 mg tablet 80 mg PO DAILY 08/26/23 02/07/24 History celecoxib 400 mg capsule (Celebrex) 400 mg PO BID 08/26/23 02/07/24 History cholecalciferol (vitamin D3) 50 50 mcg PO DAILY 08/26/23 02/07/24 History mcg (2,000 unit) capsule clonazepam 0.5 mg tablet 0.5 mg PO BID 08/26/23 02/07/24 History cyclobenzaprine 10 mg tablet 10 mg PO BID 08/26/23 02/07/24 History desvenlafaxine succinate 100 mg 100 mg PO DAILY 08/26/23 02/07/24 History tablet,extended release 24 hr (Pristiq) ezetimibe 10 mg tablet 10 mg PO DAILY 08/26/23 02/07/24 History lamotrigine 300 mg tablet,extended 300 mg PO DAILY 08/26/23 02/07/24 History release 24 hr magnesium glycinate PO 08/26/23 History metoprolol succinate 25 mg 25 mg PO DAILY 08/26/23 02/07/24 History tablet,extended release 24 hr quetiapine 200 mg tablet 200 mg PO DAILY 08/26/23 02/07/24 History Allergies Allergy/AdvReac Type Severity Reaction Status Date / Time ibuprofen AdvReac Mild Verified 10/25/23 08:09 tramadol AdvReac Mild Verified 10/25/23 08:09 Exam Constitutional Documenting provider has reviewed patient's vital signs: yes Common normals: no apparent distress, oriented x3, healthy appearing, alert and well nourished General appearance: cooperative HENPR Common normals: normocephalic, hearing grossly normal bilaterally and moist oral mucous membranes Head and scalp: normocephalic Eye Common normals: PERRL Pupil: PERRL Neck & C-Spine Common normals: full ROM General: normal visual inspection Cervical spine: cervical ROM abnormal, pain with cervical ROM and cervical spine tenderness Other: negative spurlings sensation intact BUE strength 5/5 in BUE numbness and tingling reported to posterior neck and left hand Chest Common normals: inspection of chest normal Respiratory Common normals: normal respiratory effort, no retractions and no use of accessory muscles Back & Pelvis Lumbar spine/lower back: ROM limited, pain with ROM, lumbar spinal tenderness, paraspinal muscle tenderness and straight leg raise positive right Sacroiliac joints: SI joint(s) abnormal Other: right positive pete(patricks), gaenslens, thigh thrust, compression test decreased sensation to right L4,5,S1 pattern strength 4/5 in RLE, 5/5 in LLE Extremity Common normals: normal to inspection and full ROM Neuro Common normals: oriented x3, CN's II-XII intact bilaterally, moves all extremities, no focal motor deficits, no sensory deficits noted and deep tendon reflexes 2+ bilaterally Sensorium/orientation: alert Motor exam: no movement abnormalities noted and strength abnormal Psych Common normals: mental status grossly normal, thought process normal, cooperative, affect normal, speech normal and activity/motor behavior normal Speech: normal speech Thought process: normal thought process Results Imaging Lumbar MRI: Attestation: I have reviewed the pertinent imaging results. Radiologist's impression: 12-L1: No significant disc/facet abnormality, spinal stenosis, or foraminal stenosis. L1-L2: No significant disc/facet abnormality, spinal stenosis, or foraminal stenosis. L2-L3: Early degenerative disc disease is present without focal protrusion or neural impingement. L3-L4: Disc desiccation. Mild posterior disc/osteophyte complex . Mild ligamentum flavum hypertrophy and facet osteoarthropathy. No central canal or foraminal stenosis L4-L5: Disc space narrowing and disc desiccation. 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 Moderate bilateral facet osteoarthropathy. Moderate to severe bilateral foraminal stenosis L5-S1: Posterior decompression and transpedicular fusion. 5 mm anterolisthesis of L5 on S1 with resultant pseudobulge. No central or foraminal stenosis Assessment and Plan Assessment and Plan (1) Cervical radiculopathy: (2) Cervical spondylosis: (3) Lumbar stenosis with neurogenic claudication: (4) Failed neck syndrome: (5) Sacroiliitis: (6) Chronic pain syndrome: (7) Failed back syndrome: Plan with new onset numbness tingling of LUE cervical radiculopathy and cervical neuritis post cervical RFA i am recommending patient utilize OTC lidocaine patches q24s for 12 hrs on 12 hrs and start a medrol dose pack, we will further assess patient in 2 weeks lumbar MRI reviewed with patient, consistent with moderate to severe stenosis at L4-5 i would recommend bilateral L4-5 TFESI under fluoroscopy. defer at this time due to medrol dose pack continue HEP as tolerated continue flexeril 10mg BID PRN, celebrex 200mg am 400mg HS, PRN tylenol not to exceed 3000mg daily has failed gabapentin in the past with side effects, can consider pregabalin in the future if needed
== END 2024-03-08 09:36 | disposition home or self-care (01) ==
LOC: PM 09:36
PROVIDERS: Visit Provider Nurse Practitioner
DX: M54.12 Radiculopathy, cervical region (principal); M47.812 Spondylosis without myelopathy or radiculopathy, cervical region; M48.062 Spinal stenosis, lumbar region with neurogenic claudication; M46.1 Sacroiliitis, not elsewhere classified; G89.4 Chronic pain syndrome; M96.1 Postlaminectomy syndrome, not elsewhere classified
CPT/HCPCS: G0463

== ENCOUNTER 2024-03-30 10:12 | Outpatient (OUT) | payer OTHER, SELFPAY ==
--- OUTSIDE RECORDS SUMMARY | 2024-03-30 10:31 | XMS_ITS | CCD ---
Author Organization [facility] Care Team Providers Care Sap Developer Name Role Phone GENOVEVA, CRISTOBAL F Primary [...] Edwige DO, Kimberley Leora Primary Care Provider [phone] Emmett Brunner Unavailable Letty Olson Unavailable Edwige DO, Kimberley Leora Primary Care Provider [phone] EDWIGE, KIMBERLEY LEORA Referring Unavailable EDWIGE, KIMBERLEY [...] Unavailable Kimberley Gibbons DO Primary Care Provider [phone] Unavailable Primary Care Provider UnavailKIMBERLEY Ashley Attending [...] [IBUPROFEN] Drug Allergy 0 Unknown, Diarrhea [facility] (20 sources) traMADol; 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: [TRAMADOL] Drug Allergy 9 Unknown, Nausea Only [facility] (1 source) Ibuprofen Drug Allergy [facility] (1 source) traMADol Drug Allergy 2 [facility] Medications Current Medications Medication Drug [...] on above: Take 1 capsule by [facility] twice daily. Take 1 capsule by [facility] two times a day. clonazePAM 0.5 [...] daily. 0 Active take 1 tablet by [place] every twenty-four hours Pristiq 100 MG 1 [...] tablet by mouth 0 12/01/2022 12/01/2023 Active Mayodan-3 Fatty Acids (FISH OIL) 1200 MG CAPS (1 source) Mayodan-3 Fatty Ac ids (FISH OIL) 1200 MG [...] Take 0.5 mg by mouth once daily. eekql-wj-2-pns-gvb-wrkb joey-ast 1,704-025-55-80 mg cap (4 sources) wwvuk-ig-9-dha-e pa-joey spho-ast 1,941-247-67-80 mg cap Take by mouth. 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 STOMACH, ANTRUM, BIOPSIES: [...] Description A-C. Microscopic examination performed. Processing Lab: [address] [address] Interpretation Performed at [address] [address] SURGICAL PATHOLOGY CONSULTATION Patient Name: LEXI GARCIA Med Rec: [id number] [facility] ANATOMIC PATHOLOGY [address] [place] [id number] [facility] Follow-Upon 01-25-2024 Follow-Up [id number] Nikko Garcia 1970 Date Provider Department Center 01/25/2024 [facility] Family History Problem Relation Age of Onset COPD Mother Coronary artery disease Father 56 Family Status - Relation Status Age at Mother Alive Father Level of Service:19416 [place] OFFICE/OUTPATIENT ESTABLISHED LOW MDM 20 MIN (GC) Reason for Visit and Comments: Follow-up [171522] - 3 mth follow up [facility] Abstracton 11-30-2023 Abstract [id number] Nikko Garcia 1970 Provider Department Center 11/30/2023 SVITLANA TORRES C [facility] Family History Problem Relation Age of Onset COPD Mother Coronary artery disease Father 56 Family Status - Relation Status Age at Mother Alive Father Normal [facility] 36on 11-22-2023 36 Last visit: 10/26/23 Next visit: 01/25/24 CBC: 12/12/21 BMP: 01/21/23 [facility] Refillon 11-20-2023 Refill [id number] Nikko Garcia 1970 Date Provider Department Center 11/20/2023 [facility] Family History Problem Relation Age of Onset COPD Mother Coronary artery disease Father 56 Family Status - Relation Status Age at Mother Alive Father Reason for Visit and Comments: Med Refill [688373] Normal [facility] Office Visiton 11-02-2023 Follow-up visit [id number] Nikko Garcia 1970 Date Provider Department Center 11/02/2023 Haroon-TIM SAMUELS C[facility] Family History Problem Relation Age of Onset COPD Mother Coronary artery disease Father 56 Family Status - Relation Status Age at Mother Alive Father Level of Service:42258 MA OFFICE/OUTPATIENT ESTABLISHED MOD MDM 30 MIN Reason for Visit and Comments: Atrial Fibrillation [80] - symptoms Normal [facility] Follow-Upon 10-26-2023 Follow-Up [id number] Nikko Garcia 1970 Date Provider Department Center 10/26/2023 [facility] Family History Problem Relation Age of Onset COPD Mother Coronary artery disease Father 56 Family Status - Relation Status Age at Mother Alive Father Level of Service:16786 [place] OFFICE/OUTPATIENT ESTABLISHED LOW MDM 20 MIN (GC) Reason for Visit and Comments: Follow-up [419648] Normal [facility] Celiac Disease Panelon 09-13 Gli[employer] Deam Pep IgA 1.9 U/mL Normal <7.0 [facility] Comment on above: Result Comment: CELIAC INTERPRETATION <7.0 Negative 7.0-10.0 Equivocal >10.0 Positive units: U/mL Performed By: #### C ELP #### [employer] [address] [place], [place] [id number] Medical Device Sales Consultant: Talib Clements MD Gliadin Deam Pep IgG <0.4 Normal <7.0 [facility] [place] [facility] Comment on above: Result Comment: CELIAC INTERPRETATION <7.0 Negative 7.0-10.0 Equivocal >10.0 Positive units: U/mL Performed By: #### C ELP #### [employer] [address] [place], [place] [address] Medical Device Sales Consultant: Talib Clements MD Tiss Transglutam IgA 0.4 U/mL Normal <7.0 [facility] [place] [facility] Comment on above: Result Comment: CELIAC INTERPRETATION <7.0 Negative 7.0-10.0 Equivocal >10.0 Positive units: U/mL Performed By: #### C ELP #### [facility] [employer] [facility] [place], [place] [id number] Medical Device Sales Consultant: Talib Clements MD IgA [Mass/Vol] 184 mg/dL Normal 70-400 [facility] Comment on above: Performed By: #### C ELP #### [facility] [employer] [address] [place] [address] Medical Device Sales Consultant: Talib Clements MD H. pylori Antigenon 09-14-19 24 H. pylori Antigen Specimen Description .FECES Direct Exam NEGATIVE Report Status FINAL 09/14/2023 [facility] Comment on above: Performed By: #### F HPY #### [address] [address] Medical Device Sales Consultant: Talib Clements MD [facility] [address] [place] [address] Medical Device Sales Consultant: David Hough MD Orders Onlyon 08-05-2023 Orders Only [id number] Nikko Garcia 1970 F Date Provider Department Center 08/05/2023 SHANON HSIEH Family History Problem Relation Age of Onset COPD Mother Coronary artery disease Father 56 Family Status - Relation Status Age at Mother Alive Father [facility] Follow-Upon 06-22-2023 Follow-Up [id number] Nikko Garcia 1970 F Date Provider Department Center 06/22/2023 [facility] Family History Problem Relation Age of Onset COPD Mother Coronary artery disease Father 56 Family Status - Relation Status Age at Mother Alive Father Level of Service:86872 [place] OFFICE/OUTPATIENT ESTABLISHED MOD MDM 30 MIN (GC) Reason for Visit and Comments: Follow-up [183307] - [facility] DEXA BONE DENSITYon 05-11-20 23 DEXA [...] Not Available Office Visiton 04-27-2023 Follow-up visit [id number] Nikko Garcia 1970 F Date Provider Department Center 04/27/2023 [facility] Family History Problem Relation Age of Onset COPD Mother Coronary artery disease Father 56 Family Status - Relation Status Age at Mother Alive Father Level of Service:38555 [place] OFFICE/OUTPATIENT NEW MODERATE MDM 45-59 MINUTES (GC) Reason for Visit and Comments: 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 I let her know I sent a new mychart code so she can establish mychart and view her visit information there [facility] Office Visiton 02-10-2023 Follow-up visit [id number] Nikko Garcia 1970 F Date Provider Department Center 02/10/2023 Nory-ELODIA OSCAR CARD [facility] Family History Problem Relation Age of Onset COPD Mother Coronary artery disease Father 56 Family Status - Relation Status Age at Mother Alive Father Level of Service:11678 MA OFFICE/OUTPATIENT ESTABLISHED MOD MDM 30 MIN Reason for Visit and Comments: Follow-up [[id number]] - Pt is here for f/u heart cath [facility] CBC AUTO DIFFon 10-07-2022 BASO # 0.0 103/ul Normal 0.0-0.1 [facility] Comment on above: Performed By: #### C BC #### [facility] [address] [place] [address] Dr. Donna Cantrell Basophils/100 WBC (Bld) 0.5 % Normal 0.2-2.0 [facility] Comment on above: Performed By: #### C BC #### [facility] [address] [place] [address] Dr. Donna Cantrell EO # 0.0 103/ul Normal 0.0-0.7 [facility] Comment on above: Performed By: #### C BC #### [facility] [address] [place] [address] Dr. Donna Cantrell Eosinophils/100 WBC (Bld) 0.0 % Critically low 0.9-7.0 [facility] Comment on above: Performed By: #### C BC #### [facility] [address] [place] [address] Dr. Donna Cantrell Erythrocyte distribution width (RBC) [Ratio] 13.6 % Normal 11.0-15.0 [facility] Comment on above: Performed By: #### C BC #### [facility] [address] [place] [address] Dr. Donna Cantrell Hematocrit (Bld) [Volume fraction] 42.0 % Normal 36.0-48.0 [facility] Comment on above: Performed By: #### C BC #### [facility] [address] [place] [address] Dr. Donna Cantrell Hemoglobin (Bld) [Mass/Vol] 14.4 g/dL Normal 12.0-16.0 [facility] Comment on above: Performed By: #### C BC #### [facility] [address] [place] [address] Dr. Donna Cantrell IG # 0.06 10e3/ul Critically high 0.00-0.03 [facility] Comment on above: Performed By: #### C BC #### [facility] [address] [place] [address] Dr. Donna Cantrell IG % 0.8 % Critically high 0.0-0.5 [facility] Comment on above: Performed By: #### C BC #### [facility] [address] [place] [address] Dr. Donna Cantrell LYMPH # 2.5 103/ul Normal 1.2-3.8 [facility] Comment on above: Performed By: #### C BC #### [facility] [address] [place] [address] Dr. Donna Cantrell Lymphocytes/100 WBC (Bld) 30.8 % Normal 20.5-60.0 [facility] Comment on above: Performed By: #### C BC #### [facility] [address] [place] [address] Dr. Donna Cantrell MANUAL DIFF REQ NO Normal [facility] Comment on above: Performed By: #### C BC #### [facility] [address] [place] [address] Dr. Donna Cantrell MCH (RBC) [Entitic mass] 30.3 pg Normal 26.7-34.0 [facility] Comment on above: Performed By: #### C BC #### [facility] [address] [place] [address] Dr. Donna Cantrell MCHC (RBC) [Mass/Vol] 34.3 g/dL Normal 29.9-35.2 [facility] Comment on above: Performed By: #### C BC #### [facility] [address] [address] [address] Donna Cantrell MCV (RBC) [Entitic vol] 88.2 fL Normal 81.0-99.0 [facility] Comment on above: Performed By: #### C BC #### [facility] [address] [address] [address] Donna Cantrell MONO # 0.5 103/ul Normal 0.3-0.8 [facility] Comment on above: Performed By: #### C BC #### [facility] [address] [place] [address] Dr. Donna Cantrell Monocytes/100 WBC (Bld) 6.4 % Normal 1.7-12.0 [facility] Comment on above: Performed By: #### C BC #### [facility] [address] [place] [address] Dr. Donna Cantrell NEUT # 4.9 103/ul Normal 1.4-6.5 [facility] Comment on above: Performed By: #### C BC #### [facility] [address] [place] [address] Dr. Donna Cantrell Neutrophils/100 WBC (Bld) 61.5 % Normal 43.0-75.0 [facility] Comment on above: Performed By: #### C BC #### [facility] [address] [place] [address] Dr. Donna Cantrell Platelet mean volume (Bld) [Entitic vol] 9.9 fL Normal 9.5-13.5 [facility] Comment on above: Performed By: #### C BC #### [facility] [address] [place] [address] Dr. Donna Cantrell PLT 234 103/ul Normal 150-450 [facility] Comment on above: Performed By: #### C BC #### [facility] [address] [place] [address] Dr. Donna Cantrell RBC 4.76 106/ul Normal 4.20-5.40 [facility] Comment on above: Performed By: #### C BC #### [facility] [address] [address] [address] Donna Cantrell WBC 8.0 103/ul Normal 4.0-11.0 [facility] Comment on above: Performed By: #### C BC #### [facility] [address] [address] [address] Donna Cantrell PROF CHEM 8 (BAS METB)on Anion gap [Moles/Vol] 13.9 mmol/L Normal [facility] Comment on above: Performed By: #### B MP #### [facility] [address] [address] [address] Donna Cantrell Calcium [Mass/Vol] 8.9 mg/dL Normal 8.5-10.1 [facility] Comment on above: Performed By: #### B MP #### [facility] [address] [address] [address] Donna Cantrell Chloride [Moles/Vol] 104 mmol/L Normal 98-107 [facility] Comment on above: Performed By: #### B MP #### [facility] [address] [address] [address] Donna Cantrell CO2 [Moles/Vol] 26.3 mmol/L Normal 21.0-32.0 [facility] Comment on above: Performed By: #### B MP #### [facility] [address] [address] [address] Donna Cantrell Creatinine [Mass/Vol] 0.91 mg/dL Normal 0.55-1.02 [facility] Comment on above: Performed By: #### B MP #### [facility] [address] [address] [address] Donna Cantrell EGFR-AF [place] >60 Normal >=60 [facility] Comment on above: Performed By: #### B MP #### [facility] [address] [address] [address] Donna Cantrell EGFR-NON AF [place] >60 Normal >=60 [facility] Comment on above: Performed By: #### B MP #### [facility] [address] [address] [address] Donna Cantrell Glucose [Mass/Vol] 127 mg/dL Critically high 74-106 [facility] Comment on above: Performed By: #### B MP #### [facility] [address] [address] [address] Donna Cantrell Potassium [Moles/Vol] 4.2 mmol/L Normal 3.5-5.1 [facility] Comment on above: Performed By: #### B MP #### [facility] [address] [address] [address] Donna Cantrell Sodium [Moles/Vol] 140 mmol/L Normal 136-145 [facility] Comment on above: Performed By: #### B MP #### [facility] [address] [place] [address] Dr. Donna Cantrell Urea nitrogen [Mass/Vol] 15.0 mg/dL Normal 7.0-18.0 [facility] Comment on above: Performed By: #### B MP #### [facility] [address] [place] [address] Dr. Donna Cantrell Urea nitrogen/Creatini ne [Mass ratio] 16.5 mg/mg Normal [facility] Comment on above: Performed By: #### B MP #### [facility] [address] [place] [address] Dr. Donna Cantrell PROTIMEon 10-07-2022 INR Coag (PPP) [Relative time] {INR} Normal [facility] Comment on above: Performed By: #### B LTM #### [facility] [address] [place] [address] Dr. Donna Cantrell INR GUIDELINES SEE BELOW Normal [facility] Comment on above: Result Comment: SHIRA RED INR: 2.0 - 3.0 CONDITIONS NOT LISTED BELOW 2.5 - 3.5 FOR PROSTHETIC HEART VALVE REPLACEMENT 2.5 - 3.5 RECURRENT THROMBOSIS Performed By: #### B LTM #### [facility] [address] [place] [address] Dr. Donna Cantrell PT Coag (PPP) [Time] 9.7 s Normal 9.0-11.6 [facility] Comment on above: Performed By: #### B LTM #### [facility] [address] [place], [place] [address] Dr. Donna Cantrell PTTon 10-07-2022 aPTT Coag (Bld) [Time] 29.6 s Normal 22.3-36.2 [facility] Comment on above: Performed By: #### B LTM #### [facility] [address] [id number] [address] Donna Cantrell SCREENING MAMMOGRAM W/AJ, BILATERAL*on [...] VERY IMPORTANT TO YOUR HEALTH. THE CURRENT [place] [employer] GUIDELINES RECOMMENDS ANNUAL MAMMOGRAPHY BEGINNING AT AGE 38 THIS FACILITY USES A REMINDER SYSTEM TO ENSURE ALL PATIENTS RECEIVE REMINDER NOTIFICATIONS AT THE APPROPRIATE TIME BASED ON THE RECOMMENDATIONS OF THIS EXAM. Report reported and signed by Eder Barraza on 07/01/2022 1545 Normal [facility] Repair Order Clerk XR Shoulder Complete Right*o n 07-01-2022 XR [...] by Eder Barraza on 07/02/2022 0746 Normal [facility] Repair Order Clerk XR Spine Lumbar Complete w/F jama AND [place] 07-01-2022 XR Spine Lumbar Complete w/Flex AND [...] by Eder Barraza on 07/02/2022 0744 Normal [facility] Repair Order Clerk CNPPearl 12-17-2021 CNPN Telephone (RHEULN) LEXI GARCIA ([id number]) 1970 F Date Time Provider Department 12/17/21 GAYLE WASHINGTON During your visit today, we recorded the following information about you: Gayle Washington MD 12/17/2021 2:54 PM Signed Please Call patient if MyChart note not read to review results/released to My Chart if tests completed at [facility]: Mildly low vitamin D- increase [...] PO Daily January 07, 2021 7:15am - koenu-ag-7-znw-cfe-mydozub-as t 1,392-696-37-80 mg cap Take by mouth. - PNV [...] - Estradiol (more content not included)... Normal [facility] BLEEDING TIMEon 12-16-2021 BLEEDING TIME 7.0 min Normal 1.0-8.0 [facility] Comment on above: Result Comment: test done by Selam Almodovar Performed By: #### B [facility] #### [facility] [address] [place] [address] Dr. Donna Cantrell 25(OH)D3 SerPl-mCncon 2021 25-hydroxyvitamin D3 [Mass/Vol] 29.6 ng/mL Low 31.0-80.0 [facility] Comment on above: Order Comment: Speci men Type: BLOOD SPECIMEN Ordering Facility: [facility] Address: [address] [place] [address] Result Comment: Clas sification of 25 [place] Vitamin D status: Deficiency/Insufficiency: < or = 30 ng/ml. Sufficiency/Optimal Levels: 31-80 ng/mL Toxicity: > 100 ng/mL. Test performed by chemiluminescent immunoassay. Performed By: #### 1 989-3 #### [facility] CLIA [id number] [address] [place] [address] [place] CBC panel Auto (Bld)on 12-12 Erythrocyte distribution width (RBC) [Ratio] 14.4 % Normal 11.5-15.0 [facility] Comment on above: Order Comment: Speci men Type: BLOOD SPECIMEN Ordering Facility: [facility] Address: [address] [place] [address] Performed By: #### 5 8410-2 #### [facility] CLIA [id number] [address] [place] [address] [place] Hematocrit (Bld) [Volume fraction] 45.2 % Normal 36.0-46.0 [facility] Comment on above: Order Comment: Speci men Type: BLOOD SPECIMEN Ordering Facility: [facility] Address: [address] [place] [address] Performed By: #### 5 8410-2 #### [facility] CLIA [id number] [address] [place] [address] [place] Hemoglobin (Bld) [Mass/Vol] 14.8 g/dL Normal 11.5-15.5 [facility] Comment on above: Order Comment: Speci men Type: BLOOD SPECIMEN Ordering Facility: [facility] Address: [address] [place] [address] Performed By: #### 5 8410-2 #### [facility] CLIA [id number] [address] [place] MCH (RBC) [Entitic mass] 29.7 pg Normal 26.0-34.0 [facility] Comment on above: Order Comment: Speci men Type: BLOOD SPECIMEN Ordering Facility: [facility] Address: [address] [place] [address] Performed By: #### 5 8410-2 #### [facility] CLIA [id number] [address] [place] [address] [place] MCHC (RBC) [Mass/Vol] 32.7 g/dL Normal 30.5-36.0 [facility] Comment on above: Order Comment: Speci men Type: BLOOD SPECIMEN Ordering Facility: [facility] Address: [address] [place] [address] Performed By: #### 5 8410-2 #### [facility] CLIA [id number] [address] [place] [address] [place] MCV (RBC) [Entitic vol] 90.8 fL Normal 80.0-100.0 [facility] Comment on above: Order Comment: Speci men Type: BLOOD SPECIMEN Ordering Facility: [facility] Address: [address] [place] [address] Performed By: #### 5 8410-2 #### [facility] CLIA [id number] [address] [place] [address] [place] Nucleated RBC (Bld) [#/Vol] 10*3/uL Normal <0.01 [facility] Comment on above: Order Comment: Speci men Type: BLOOD SPECIMEN Ordering Facility: [facility] Address: [address] [place], [place] [id number] Performed By: #### 5 8410-2 #### [facility] CLIA [id number] [address] [place] [address] [place] Platelet mean volume (Bld) [Entitic vol] 10.7 fL Normal 9.0-12.7 [facility] Comment on above: Order Comment: Speci men Type: BLOOD SPECIMEN Ordering Facility: [facility] Address: [address] [place] [address] Performed By: #### 5 8410-2 #### [facility] CLIA [id number] [address] [place] [address] [place] Platelets (Bld) [#/Vol] 259 10*3/uL Normal 150-400 [facility] Comment on above: Order Comment: Speci men Type: BLOOD SPECIMEN Ordering Facility: [facility] Address: [address] [place] [address] Performed By: #### 5 8410-2 #### [facility] CLIA [id number] [address] [place] [address] [place] RBC (Bld) [#/Vol] 4.98 10*6/uL Normal 3.90-5.20 [facility] Comment on above: Order Comment: Speci men Type: BLOOD SPECIMEN Ordering Facility: [facility] Address: [address] [place] [address] Performed By: #### 5 8410-2 #### [facility] CLIA [id number] [address] [place] [address] [place] WBC (Bld) [#/Vol] 9.25 10*3/uL Normal 3.70-11.00 [facility] Comment on above: Order Comment: Speci men Type: BLOOD SPECIMEN Ordering Facility: [facility] Address: [address] [place] [address] Performed By: #### 5 8410-2 #### [facility] CLIA [id number] [address] [place] [address] [place] CNOVon 12-12-2021 CNOV Office Visit (AMARJIT ) LEXI GARCIA ([id number]) 1970 F Date Time Provider Department 12/12/21 [...] flat ground knees give out. COVID vaccine [employer] I 06/26/21. Feels safe at home. 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/injections, prn acetaminophen, start prn heat/ice/otc [...] yes Dactylitis: no H/o precedent/frequent infection(s): no Enthesopathy/Wrightwood's/heel/p lantar tenderness: as above Skin thickening, psoriasis, photosensitivity, purpura: no Nail changes: ridges/ripples Alpecia, patchy: no Eye inflammation: glasses, R retinal hole SICCA: dry eyes Oral/nasal/genital ulcers: no GI problems-diarrhea/bleeding/IB D/Gluten intolerence/Dysphagia: gerd Raynaud's phenomenon/digital ulcers: no Organ inv-Serositis: no Lung disease/ILD: no Myopathy/proximal muscle weakness: no Abnormal Urine or urethritis: no Renal/liver disease: no MULTINEEDLE SHIRRER/PNS/sz/cva/cancer disease: no HEME-Cytopenias/LAD/Clots: no Fevers: no Fatigue: [...] ago stable (more content not included)... Normal [facility] CRP SerPl-mCncon 12-12-2021 CRP [Mass/Vol] 1.4 mg/dL High <0.9 [facility] Comment on above: Order Comment: Speci men Type: BLOOD SPECIMEN Ordering Facility: [facility] Address: [address] [place] [address] Performed By: #### 1 988-5, 2-9, 56769-9, 3084-1 #### [facility] CLIA [id number] [address] [place] [address] [facility] Comprehensive metabolic 2000 panelon 12-12-2021 Albumin [Mass/Vol] 4.2 g/dL Normal 3.9-4.9 [facility] Comment on above: Order Comment: Speci men Type: BLOOD SPECIMEN Ordering Facility: [facility] Address: [address] [place] [address] Performed By: #### 1 988-5, 2132-9, 58378-2, 3084-1 #### [facility] CLIA [id number] [address] [place] [address] [place] ALP [Catalytic activity/Vol] 140 U/L High 34-123 [facility] Comment on above: Order Comment: Speci men Type: BLOOD SPECIMEN Ordering Facility: [facility] Address: [address] [place] [address] Performed By: #### 1 988-5, 2131-9, 33204-5, 4-1 #### [facility] CLIA [id number] [address] [place] [address] [place] ALT [Catalytic activity/Vol] 23 U/L Normal 7-38 [facility] Comment on above: Order Comment: Speci men Type: BLOOD SPECIMEN Ordering Facility: [facility] Address: [address] [place] [address] Performed By: #### 1 988-5, 2131-9, 95031-9, 3083-1 #### [facility] CLIA [id number] [address] [place] [address] [place] Anion gap [Moles/Vol] 10 mmol/L Normal 9-18 [facility] Comment on above: Order Comment: Speci men Type: BLOOD SPECIMEN Ordering Facility: [facility] Address: [address] [place] [address] Performed By: #### 1 988-5, 2131-9, 68602-2, 3083-1 #### [facility] CLIA [id number] [address] [place] [address] [place] AST [Catalytic activity/Vol] 24 U/L Normal 13-35 [facility] Comment on above: Order Comment: Speci men Type: BLOOD SPECIMEN Ordering Facility: [facility] Address: [address] [place] [address] Performed By: #### 1 988-5, 2131-9, 14090-9, 3084-1 #### [facility] CLIA [id number] [address] [place] [address] [place] Bilirubin [Mass/Vol] mg/dL Low 0.2-1.3 [facility] Comment on above: Order Comment: Speci men Type: BLOOD SPECIMEN Ordering Facility: [facility] Address: [address] [place] [address] Performed By: #### 1 988-5, 2131-9, 66795-9, 3084-1 #### [facility] CLIA [id number] [address] [place] [address] [place] Calcium [Mass/Vol] 9.6 mg/dL Normal 8.5-10.2 [facility] Comment on above: Order Comment: Speci men Type: BLOOD SPECIMEN Ordering Facility: [facility] Address: [address] [place] [address] Performed By: #### 1 988-5, 2131-9, 72819-5, 3083-1 #### [facility] CLIA [id number] [address] [place] [address] [place] Chloride [Moles/Vol] 104 mmol/L Normal 97-105 [facility] Comment on above: Order Comment: Speci men Type: BLOOD SPECIMEN Ordering Facility: [facility] Address: [address] [place], [place] [id number] Performed By: #### 1 988-5, 2131-9, 68193-9, 3083-1 #### [facility] CLIA [id number] [address] [place] [address] [place] CO2 [Moles/Vol] 24 mmol/L Normal 22-30 [facility] Comment on above: Order Comment: Speci men Type: BLOOD SPECIMEN Ordering Facility: [facility] Address: [address] [place] [address] Performed By: #### 1 988-5, 2131-9, 18327-1, 3084-1 #### [facility] CLIA [id number] [address] [place] [address] [place] Creatinine [Mass/Vol] 0.86 mg/dL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 nucleic acid amplification test was developed and its performance characteristics determined by [employer]. Nucleic acid amplification tests include PCR and [...] detected) result in this assay. Performed at: [facility] [address] [facility], [place] [id number] Medical Device Sales Consultant: Altagracia Quiñonez MD, Phone: [phone] Performed By: #### I RCOV ####[facility] [place] [phone] Basic Metabolic Panelon 10-3 0-2020 Anion gap [Moles/Vol] 12 mmol/L Normal 9-15 [facility] Comment on above: Performed By: #### B MP #### [facility] [address] [place] [address] Calcium [Mass/Vol] 10.5 mg/dL Critically high 8.5-9.9 [facility] Comment on above: Performed By: #### B MP #### [facility] [address] [place] [address] Chloride [Moles/Vol] 98 mmol/L Normal 95-107 [facility] Comment on above: Performed By: #### B MP #### [facility] [address] [place] [address] CO2 [Moles/Vol] 27 mmol/L Normal 20-31 [facility] Comment on above: Performed By: #### B MP #### [facility] [address] [place] [address] Creatinine [Mass/Vol] 0.82 mg/dL Normal 0.50-0.90 [facility] Comment on above: Performed By: #### B MP #### [facility] [address] [place] [address] GFR/1.73 sq M predicted among blacks MDRD (S/P/Bld) [Vol rate/Area] mL/min/{1.73_m2} Normal >60 [facility] Comment on above: Result Comment: >60 mL/min/1.73m2 EGFR, calc. for ages 18 and older using the MDRD formula (not corrected for weight), is valid for stable renal function. Performed By: #### B MP #### [facility] [address] [place] [address] GFR/1.73 sq M.predicted MDRD (S/P/Bld) [Vol rate/Area] mL/min/{1.73_m2} Normal >60 [facility] Comment on above: Result Comment: >60 mL/min/1.73m2 EGFR, calc. for ages 18 and older using the MDRD formula (not corrected for weight), is valid for stable renal function. Performed By: #### B MP #### [facility] [address] [place] [address] Glucose [Mass/Vol] 84 mg/dL Normal 70-99 [facility] Comment on above: Performed By: #### B MP #### [facility] [address] [place] [address] Potassium [Moles/Vol] 4.6 mmol/L Normal 3.4-4.9 [facility] Comment on above: Performed By: #### B MP #### [facility] [address] [place] [address] Sodium [Moles/Vol] 137 mmol/L Normal 135-144 [facility] Comment on above: Performed By: #### B MP #### [facility] [address] [place] [address] Urea nitrogen [Mass/Vol] 31 mg/dL Critically high 6-20 [facility] Comment on above: Performed By: #### B MP #### [facility] [address] [place] [address] CBC With Platelet No Differe ntialon 05-03-2020 Erythrocyte distribution width (RBC) [Ratio] 14.3 % Normal 11.5-14.5 [facility] Comment on above: Performed By: #### C BCND #### [facility] [address] [place] [address] Hematocrit (Bld) [Volume fraction] 41.3 % Normal 37.0-47.0 [facility] Comment on above: Performed By: #### C BCND #### [facility] [address] [place] [address] Hemoglobin (Bld) [Mass/Vol] 13.6 g/dL Normal 12.0-16.0 [facility] Comment on above: Performed By: #### C BCND #### [facility] [address] [place] [address] MCH (RBC) [Entitic mass] 30.7 pg Normal 27.0-31.3 [facility] Comment on above: Performed By: #### C BCND #### [facility] [address] [place] [address] MCHC (RBC) [Mass/Vol] 33.0 % Normal 33.0-37.0 [facility] Comment on above: Performed By: #### C BCND #### [facility] [address] [place] [address] MCV (RBC) [Entitic vol] 92.9 fL Normal 82.0-100.0 [facility] Comment on above: Performed By: #### C BCND #### [facility] [address] [place] [address] Platelets (Bld) [#/Vol] 241 10*3/uL Normal 130-400 [facility] Comment on above: Performed By: #### C BCND #### [facility] [address] [place] [address] RBC (Bld) [#/Vol] 4.44 10*6/uL Normal 4.20-5.40 [facility] Comment on above: Performed By: #### C BCND #### [facility] [address] [place] [address] WBC (Bld) [#/Vol] 11.0 10*3/uL Critically high 4.8-10.8 [facility] Comment on above: Performed By: #### C BCND #### [facility] [address] [place] [address] COVID-19, NAAon 05-03-2020 Source Swab Anterior nares Normal [facility] Comment on above: Performed By: #### I RCOV ####[facility] [place] [phone] Partial Thromboplastin Timeo n 05-03-2020 aPTT Coag (Bld) [Time] 31.3 s Normal 24.4-36.8 [facility] Comment on above: Performed By: #### P TT #### [facility] [address] [place] [address] Prothrombin Timeon 0 INR Coag (PPP) [Relative time] 0.9 {INR} Normal [facility] Comment on above: Performed By: #### P T #### [facility] [address] [place] [address] PT Coag (PPP) [Time] 11.9 s Low 12.3-14.9 [facility] Comment on above: Performed By: #### P T #### [facility] [address] [place] [address] Type and Screen Capture 3 sc rn cellon 05-03-2020 Type and Screen Capture 3 scrn cell PATIENT: JOSHUA Doss LOC: [facility] GABI# : [id number] : 1970 SEX: F ORDERED BY: STEPHANIE Harrison ORDERED : 05/03/2020 14:14 COLLECTED: 05/03/2020 14:14 ORDER : [id number] RECEIVED : 05/03/2020 19:43 TEST NAME RESULT UNITS RANGES ABN FL ST ABORH Capture O POS F Antibody 3 Cell Scrn Captu NEG F Normal [facility] Comment on above: Performed By: #### T S3C #### [facility] [address] [place] [id number] Established Visit (Orthopaed ic Surgery)on 04-26-2020 Established [...] biceps. No pain with resisted elbow flexion. Financial Services Officer strength 5/5 Elbow flexion 5/5. Shoulder abduction [...] Chiara Espinosa PA-C Department of Orthopaedic Surgery [facility] Dictation performed with the use of voice recognition software. Syntax and grammatical errors may exist. Active Problems Problems Shoulder pain (719.41) (M25.519) Signatures Electronically signed by : Chiara Espinosa PA-C; Apr 26 2020 3:56PM EST (Author) [facility] Initial Visit (Orthopaedic S urgery)on 04-17-2020 Initial Visit (Orthopaedic Surgery) Diagnoses/Problems Assessed Shoulder pain (719.41) (M25.519) Patient Discussion/Summary Patient has right shoulder pain of uncertain origin. Exam today is suggestive of subacromial origin of pain. MRI scan shows tendinopathy but not an obvious tear. I recommended having her MRI scans evaluated by the musculoskeletal radiologist at [facility] I will call the patient back with [...] her light touch sensation is grossly intact. Financial Services Officer strength is 5/5 elbow flexion 5/5 shoulder [...] kg Gayle Washington MD Work Phone: [facility] 12-12-2021 10:43-0400 Diastolic blood pressure 87 mm[Hg] Gayle Washington MD Work Phone: [facility] 12-12-2021 10:43-0400 Heart rate 88 /min Gayle Washington MD Work Phone: [facility] 12-12-2021 10:43-0400 Systolic blood pressure 125 mm[Hg] Gayle Washington MD Work Phone: [facility] 10-14-2021 10:30-0400 Diastolic blood pressure 80 mm[Hg] Emmett Brunner Other [facility] Other 10-14-2021 10:30-0400 SaO2% (BldA) [Mass fraction] 98 % Emmett Brunner Other [facility] Other 10-14-2021 10:30-0400 Systolic blood pressure 130 mm[Hg] Emmett Brunner Other [facility] Other 07-01-2021 15:30-0500 Body weight 94.62 kg Letty Wesley Other [facility] Other 07-01-2021 15:30-0500 Diastolic blood pressure 78 mm[Hg] Letty Wesley Other [facility] Other 07-01-2021 15:30-0500 Respiratory rate 18 /min Letty Wesley Other [facility] Other 07-01-2021 15:30-0500 SaO2% (BldA) [Mass fraction] 98 % Letty Wesley Other [facility] Other 07-01-2021 15:30-0500 Systolic blood pressure 118 mm[Hg] Lettyra Olson Other [facility] Other 06-18-2021 15:45-0500 Diastolic blood pressure 90 mm[Hg] Emmett Brunner Other [facility] Other 06-18-2021 15:45-0500 SaO2% (BldA) [Mass fraction] 97 % Emmett Brunner Other [facility] Other 06-18-2021 15:45-0500 Systolic blood pressure 122 mm[Hg] Emmett Brunner Other [facility] Other 05-15-2021 17:30-0500 Body weight 92.53 kg Emmett Brunner Other [facility] Other 05-15-2021 17:30-0500 Diastolic blood pressure 80 mm[Hg] Emmett Kannan Other [facility] Other 05-15-2021 17:30-0500 Systolic blood pressure 130 mm[Hg] Emmett Kannan Other [facility] Other 04-02-2021 14:30-0400 Body weight 92.63 kg Emmett Brunner Other [facility] Other 04-02-2021 14:30-0400 Diastolic blood pressure 88 mm[Hg] Emmett Kannan Other [facility] Other 04-02-2021 14:30-0400 SaO2% (BldA) [Mass fraction] 98 % Emmett Kannan Other [facility] Other 04-02-2021 14:30-0400 Systolic blood pressure 140 mm[Hg] Emmett Brunner Other [facility] Other Encounters Encounter Date Encounter Type Care Provider Facility Start: 02-07-2024 End: 02-07-2024 ambulatory Rosibel Cotton MD [facility]: [facility] Start: 02-03-2024 End: 02-03-2024 ambulatory NANCY LUDWIG [facility] Start: 01-25-2024 End: 01-25-2024 ambulatory [facility] Start: 01-24-2024 End: 01-24-2024 ambulatory Rosibel Cotton MD Facility: [facility] Start: 01-12-2024 End: 01-12-2024 ambulatory NICOLE TELLES [facility] Start: 01-12-2024 Encounter for other preprocedural examination [facility] Start: 12-20-2023 End: 12-20-2023 ambulatory Rosibel Cotton MD Facility: [facility] Start: 11-02-2023 End: 11-02-2023 ambulatory TIM [facility] Start: 10-29-2023 End: 10-29-2023 ambulatory IZABEL LARA Not Available Start: 10-28-2023 End: 10-28-2023 ambulatory CLIFFORD VANN Not Available Start: 10-26-2023 End: 10-26-2023 ambulatory [facility] Start: 10-25-2023 End: 10-25-2023 ambulatory Rosibel Cotton MD [facility] Start: 09-20-2023 End: 09-20-2023 ambulatory Rosibel Cotton MD Facility: [facility] Start: 09-13-2023 End: 09-13-2023 Subsequent hospital visit by physician [facility] Comment on above: Flatulence, eructati on and gas pain Start: 09-13-2023 End: 09-13-2023 ambulatory NICOLE TELLES [facility] Start: 09-13-2023 Encounter for other preprocedural examination NICOLE R [facility] Start: 07-26-2023 End: 07-26-2023 ambulatory KIMBERLEY GIBBONS Not Available Start: 06-22-2023 End: 06-22-2023 ambulatory [facility] Start: 06-18-2023 End: 06-18-2023 ambulatory KIMBERLEY GIBBONS Not Available Start: 05-11-2023 End: 05-12-2023 ambulatory JESSIE REID Not Available Start: 04-27-2023 End: 04-27-2023 ambulatory [facility] Start: 04-07-2023 ambulatory Gayle Washington MD Work Phone: Rheumatology Comment on above: Fax info Start: 02-10-2023 End: 02-10-2023 ambulatory ELODIA [facility] Start: 10-16-2022 Encounter for preprocedural cardiovascular examination DR ULISES TIM [facility] Start: 10-16-2022 Encounter for preprocedural laboratory examination DR ULISES TIM [facility] Start: 10-13-2022 End: 10-13-2022 ambulatory [...] Start: 12-12-2021 End: 12-13-2021 ambulatory KIMBERLEY GIBBONS [facility] Other Start: 12-12-2021 End: 12-12-2021 Patient encounter [...] 10-29-2021 Chart Update Cristobal miller Work Phone: [id number] Work Phone: Start: 10-14-2021 End: 10-14-2021 ambulatory Emmett Brunner Other [facility] Other Start: 10-14-2021 Patient encounter procedure Emmett Brunner [facility] Start: 09-23-2021 End: 09-23-2021 ambulatory Emmett Brunner Other [facility] Other Start: 09-23-2021 Telephone encounter Emmett Brunner [facility] Start: 07-01-2021 End: 07-01-2021 ambulatory Letty Wesley Other [facility] Other Start: 07-01-2021 Office outpatient vi sit 25 minutes Letty Wesley [facility] Start: 06-26-2021 (Procedure) Short Emmett Brunner [facility] Start: 06-26-2021 End: 06-26-2021 ambulatory Emmett Brunner Other [facility] Other Start: 06-18-2021 End: 06-18-2021 ambulatory Emmett Brunner Other [facility] Other Start: 06-18-2021 Office outpatient vi sit 25 minutes Emmett Kannan [facility] Start: 06-18-2021 Telephone encounter Emmett Brunner [facility] Start: 06-04-2021 End: 06-04-2021 Subsequent hospital visit by physician Christina [facility] Comment on above: Chronic hip pain, bi lateral [M25.551, M25.552, G89.29] Start: 05-21-2021 (Procedure) Short Emmett Brunner [facility] Start: 05-21-2021 End: 05-21-2021 ambulatory Emmettarmani Brunner Other [facility] Other Start: 05-15-2021 End: 05-15-2021 ambulatory Emmett Brunner Other [facility] Other Start: 05-15-2021 Office outpatient vi sit 25 minutes Emmett Kannan [facility] Start: 04-30-2021 (Procedure) Short Emmett Brunner [facility] Start: 04-16-2021 (Procedure) Short Emmett Brunner [facility] Start: 04-02-2021 Office outpatient vi sit 25 minutes Emmett Brunner [facility] Start: 02-21-2021 Office outpatient vi sit 15 minutes Cristobal F Genoveva Work Phone: [id number] Work Phone: Start: 06-25-2020 End: 06-27-2020 Evaluation and management of inpatient FEMI L[facility]pez [facility] Start: 06-25-2020 End: 06-28-2020 Patient encounter procedure CRISTOBAL [facility] Start: 06-18-2020 End: 06-23-2020 Patient encounter procedure CRISTOBAL F [facility] Start: 05-09-2020 End: 05-09-2020 Patient encounter procedure [facility] Procedures Date Procedure Procedure Detail Performing Clinician Start: 09-13-2023 Assay of gammaglobul in iga igd igg igm each Nicole Telles [employer] - REGISTERED NURSE RENAL Work Phone: Start: 06-04-2021 Radex hips bilateral with pelvis minimum 5 views Gayle Washington MD Work Phone: Start: 06-17-2020 Mammography Gayle jeffries MD Work Phone: Start: 06-09-2018 Lipid 1996 panel - S willian or Plasma Gayle Washington MD Work Phone: Plan of Treatment Date Care Activity Detail Author Start: 12-12-2024 DIABETES SCREEN DIABETES SCREEN [facility] Start: 12-12-2024 Diabetes Screening Diabetes Screening [facility] Start: 07-01-2024 Screening for malignant neoplasm of breast Breast cancer screen [facility] Start: 02-03-2024 End: 02-03-2024 Admission to same day surgery center 02/03/2024 8:45 AM EDT - 02/03/2024 9:05 AM EDT Surgery [facility] OR [address] [place], [place] [id number] Nancy Ludwig MD [address] [place] [address] ESOPHAGOGASTRODUODENOSCOPY [facility] OR Comment on above: ESOPHAGOGASTRODUODENOSCOPY Start: 02-03-2024 End: 02-03-2024 Esophagogastroduodenoscopy transoral diagnostic ESOPHAGOGASTRODUODENOSCOPY Chronic GERD 02/03/2024 8:45 AM EDT [facility] Start: 02-03-2024 Subsequent hospital visit by physician 02/03/2024 8:45 AM EDT Hospital Encounter [facility] [address] [place] [address] Nancy Ludwig MD [address] [place] [address] [facility] Start: 07-05-2023 Annual Wellness Visit (Medicare Advantage) Annual Wellness Visit (Medicare Advantage) [facility] Start: 06-09-2023 Lipid 1996 panel - Serum or Plasma Lipid Screening [facility] Start: 06-09-2023 LIPID SCREEN LIPID SCREEN [facility] Start: 03-05-2023 COVID-19 Vaccine (2022- season) COVID-19 Vaccine ( season) [facility] Start: 03-05-2023 Influenza vaccination [facility] Start: 02-02-2023 Influenza vaccination Flu vaccine (#1) [facility] Start: 07-05-2022 DEPRESSION ASSESSMENT DEPRESSION ASSESSMENT [facility] Start: 03-19-2022 End: 12-17-2022 25-hydroxyvitamin D3 [Mass/volume] in Serum or Plasma VITAMIN D 25 HYDROXY Lab Routine Vitamin D deficiency Expected: 03/19/2022 (Approximate), Expires: 12/17/2022 [facility] Work Phone: Comment on above: Expected: 03/19/2022 (Approximate), Expi res: 12/17/2022 Start: 03-05-2022 Influenza vaccination [facility] Start: 08-21-2021 COVID-19 VACCINE (2 - Booster for Barbara series) COVID-19 VACCINE (2 - Booster for Barbara series) [facility] Start: 07-05-2021 DEPRESSION ASSESSMENT DEPRESSION ASSESSMENT [facility] Start: 06-17-2021 Mammography [facility] Start: 2018 Shingles vaccine (1 of 2) Shingles vaccine (1 of 2) [facility] Start: 2018 SHINGRIX VACCINE (1 of 2) SHINGRIX VACCINE (1 of 2) [facility] Start: 2013 COLOGUARD (FIT-DNA) COLOGUARD (FIT-DNA) [facility] Start: 2013 Colonoscopy COLONOSCOPY [facility] Start: 2013 COLORECTAL CANCER SCREENING COLORECTAL CANCER SCREENING [facility] Start: [address] COLONOGRAPHY [facility] Start: 2013 FECAL OCCULT BLOOD FECAL OCCULT BLOOD [facility] Start: 2013 Screening for malignant neoplasm of colon [facility] Start: 2013 SIGMOIDOSCOPY SIGMOIDOSCOPY [facility] Start: 1998 HPV TESTING HPV TESTING [facility] Start: 1989 PAP TESTING PAP TESTING [facility] Start: 1987 DTaP/Tdap/Td vaccine (1 - Tdap) DTaP/Tdap/Td vaccine (1 - Tdap) [facility] Start: 1987 Urine microalbumin profile [facility] Start: 1986 Hepatitis C screening Hepatitis C screen [facility] Start: 1986 HIV SCREENING HIV SCREENING [facility] Start: 1983 HIV screening HIV screen [facility] Start: 1980 Adult depression screening assessment DEPRESSION SCREENING [facility] Start: 1980 Depression Screen Depression Screen [facility] Start: 1978 Lipid panel [facility]ids [facility] Start: 1974 PNEUMOCOCCAL (1 - PCV) PNEUMOCOCCAL (1 - PCV) [facility] Start: 1974 Pneumococcal 0-64 years Vaccine (1 - PCV) Pneumococcal 0-64 years Vaccine (1 - PCV) [facility] Start: 1974 Pneumococcal vaccination Pneumococcal Vaccine (1 - PCV) [facility] Start: 1968 HEPATITIS B (1 of 3 - 3-dose series) HEPATITIS B (1 of 3 - 3-dose series) [facility] Start: 1968 Hepatitis B Vaccine (1 of 3 - 3-dose series) Hepatitis B Vaccine (1 of 3 - 3-dose series) [facility] Celiac Disease Panel Celiac Dise ase Panel Lab Routine Flatulence, eructation and gas pain 09/13/2023 4:20 PM EDT [facility] End: 09-13-2023 H. pylori antigen [facility] Comment on above: Once for 1 Occurrences starting 09/13/19 24 until 09/13/2023 End: 09-13-2023 H. Pylori Antigen, Stool H. Pylori Antigen, Stool Lab Routine Flatulence, eructation and gas pain 1 Occurrences starting 09/13/2023 until 09/13/2023 [employer] Work Phone: Comment on above: 1 Occurrences starting 09/13/2023 until 09/13/2023 Immunizations Immunization Date Immunization Notes Care Provider Sabina brumfield 04-06-2019 influenza, injectabl e, quadrivalent, preservative free Cristobal Tomas Work Phone: [id number] Work Phone: 04-06-2019 influenza virus vaccine, unspecified formulation Gayle Washington MD Work Phone: [facility] 05-15-2016 seasonal influenza, intradermal, preservative free Cristobal Tomas Work Phone: [facility] [employer] Payers Date Payer Category Payer Unknown 2021 Unknown CLAYTON ARNOLD HI X [id number] 2021-Present [phone] [address] [address] [place] [address] HMO [id number] 2020 Private Health Insurance [facility] [employer] [id number] 2020-2021 [address] [address] [place] [address] PPO [id number] 2018 Unknown [id number] 2017 Unknown [id number] 1968 Unknown [id number] 2.16.840.1.800608.3.579.2 .182 1968 Unknown [id number] 2.16.840.1.614127.3.579.2 .182 1968 Unknown [id number] 2.16.840.1.337951.3.579.2 .182 1968 Unknown [id number] 2.16.840.1.910590.3.579.2 .182 1968 Unknown [id number] 2.16.840.1.717393.3.579.2 .182 1968 Unknown [id number] 2.16.840.1.643423.3.579.2 .593 1968 Unknown [id number] 2.16.840.1.087482.3.579.2 .593 1968 Unknown [id number] 2.16.840.1.766780.3.579.2 .593 1968 Unknown [id number] 2.16.840.1.827948.3.579.2 .593 1968 Unknown [id number] 2.16.840.1.634660.3.579.2 .593 1968 Unknown [id number] 2.16.840.1.649032.3.579.2 .593 1968 Unknown [id number] 2.16.840.1.900541.3.579.2 .593 1968 Unknown [id number] 2.16.840.1.745406.3.579.2 .593 1968 Unknown [id number] 2.16.840.1.521557.3.579.2 .593 1968 Unknown [id number] 2.16.840.1.797963.3.579.2 .593 1968 Unknown [id number] 2.16.840.1.812176.3.579.2 .593 1968 Unknown [id number] 2.16.840.1.732173.3.579.2 .1259 1968 Unknown [id number] 2.16.840.1.751636.3.579.2 .1259 1968 Unknown [id number] 2.16.840.1.917778.3.579.2 .1259 1968 Unknown [id number] 2.16.840.1.496550.3.579.2 .1259 1968 Unknown [id number] 2.16.840.1.982014.3.579.2 .9 1968 Unknown [id number] 2.16.840.1.535383.3.579.2 .9 1968 Unknown [id number] 2.16.840.1.538958.3.579.2 .9 1968 Unknown [id number] 2.16.840.1.471751.3.579.2 .173 1968 Unknown [id number] 2.16.840.1.392405.3.579.2 .173 1968 Unknown [id number] 2.16.840.1.170229.3.579.2 .173 1968 Unknown [id number] 2.16.840.1.213662.3.579.2 .173 1968 Unknown [id number] 2.16.840.1.555223.3.579.2 .196 1968 Unknown [id number] 2.16.840.1.225233.3.579.2 .196 1968 Unknown [id number] 2.16.840.1.209180.3.579.2 .196 1968 Unknown [id number] 2.16.840.1.567210.3.579.2 .196 1968 Unknown [id number] 2.16.840.1.966641.3.579.2 .196 Social History Date Type Detail Facility Start: 06-04-2021 End: 09-08-2023 Tobacco smoking status NHIS Smokes tobacco daily [facility] History of tobacco use Cigarette Smoker [facility] Start: 05-03-2020 End: 06-04-2021 Cigarettes smoked current (pack per day) - Reported 1 [facility] Start: 06-04-2021 End: 09-08-2023 Tobacco use and exposure Smokeless tobacco non-user [facility] Start: 12-12-2021 End: 09-08-2023 Alcohol intake Current drinker of alcohol (finding) [facility] Start: 06-04-2021 History SDOH Alcohol Comment rarely. [facility] Start: 1970 Sex Assigned At Not on file [facility] Start: 11-29-2021 End: 12-09-2021 Exposure to SARS-CoV-2 (event) Unable to assess [facility] Start: 05-03-2020 End: 06-05-2021 Sex Assigned At [facility] Start: 05-05-2021 End: 06-04-2021 Exposure to SARS-CoV-2 (event) Not sure [facility] National Score (1-100), lower number is lower risk 95 [facility] (I/We) worried whether (my/our) food would run out before (I/we) got money to buy more. Never true [employer] Start: 09-08-2023 Tobacco Comment intermittently since 15 [employer] Start: 05-03-2020 Alcohol Comment hardly ever [employer] [facility] [employer] Procedure Code Equipment Code Equipment Original Text Equipment Identifier Dates Impl Alena Spine R michael Ti35 Mm 55 Mm [id number] Start: 06-25-2020 Graft Spnl W11xh [id number] Corticocancellous Lord Triad - [id number] Start: 05-09-2020 Plate Spnl L28mm Antr Cerv 1 Lev Translational [place] Acp [id number] Start: 05-09-2020 Screw Spnl L13mm Dia4mm Ant Cerv [facility] Ang Compr [place] Acp [id number] Start: 05-09-2020 Connector Spnl C rss Lo Prof Adj Reline-O 5.5 X 45-65 Mm [id number] Start: 06-25-2020 Screw Spnl Dia5. 5mm Opn Tulip Roselyn Reline [id number] Start: 06-25-2020 Graft Bne Sub 30 cc 1.7-10mm Canc Chip Morselized Frz Dry - [id number] Start: 06-25-2020 Graft Bne Sub 5m l Mtrx Cellular Osteocel + - [id number] Start: 06-25-2020 Spacer Spnl L W1 [id number] 4deg Post Lum Intbdy Fus Lord [id number] [...] able to decrease Celebrex to 200 BID [facility] Follow-up Patient Visit Subjective [...] surgery with numbness in hands and decreased case sealer strength, R>L shoulders, neck (better since ablation). AM stiffness lasts 1-2 hrs (was 2-3 hr prior),, on average daily. Denies joint erythema, swelling, warmth. Comprehensive History: Patient Active Problem List Diagnosis Chest pain, atypical Benign essential HTN HOFFMAN (dyspnea on exertion) Fibromyalgia Elevated d-dimer Mixed hyperlipidemia GERD without esophagitis Orthopnea Sleep disturbances Abnormal nuclear stress test Unstable angina (CMS/HCC) Coronary artery disease involving [place] coronary artery of [place] heart without angina pectoris Degenerative joint disease [...] 80 mg ta (more content not included)... [facility] 11-02-2023 Note ecg [facility] 11-02-2023 Note Cardiovascular Medic [facility] SUBJECTIVE Chief Complaint Patient presents [...] Unstable angina (CMS/HCC) Coronary artery disease involving [place] coronary artery of [place] heart without angina pectoris Degenerative joint disease [...] , Rfl: o (more content not included)... [facility] 10-26-2023 Note Attestation signed by [...] will decrease Celebrex due to worsening heartburn [facility] Follow-up Patient Visit Subjective [...] surgery with numbness in hands and decreased case sealer strength, R>L shoulders, neck. AM stiffness lasts 1-2 hrs (was 2-3 hr prior), on average daily. Denies joint erythema, swelling, warmth. Comprehensive History: Patient Active Problem List Diagnosis Chest pain, atypical Benign essential HTN HOFFMAN (dyspnea on exertion) Fibromyalgia Elevated d-dimer Mixed hyperlipidemia GERD without esophagitis Orthopnea Sleep disturbances Abnormal nuclear stress test Unstable angina ([facility]) Coronary artery disease involving [place] coronary artery of [place] heart without angina pectoris Degenerative joint disease [...] Chronic pain disorder Depression Factor V Leiden ([facility]) Fibromyalgia, primary GERD [...] 400 mg capsul (more content not included)... [facility] 10-26-2023 Note PT STATE SHE HAS BEE N DIZZY RECENTLY PT STATES TAKES MEDS TO MANAGE DEPRESSION SX [facility] 06-22-2023 Note Attestation signed by [...] subchondral sclerosis noted on fist C[facility] joints [facility] Follow-up Patient Visit Subjective [...] Unstable angina (CMS/HCC) Coronary artery disease involving [place] coronary artery of [place] heart without angina pectoris Degenerative joint disease [...] the morning. aspirin (more content not included)... [facility] 04-27-2023 Note Attestation signed by [...] kidney impairment, GI ulcer/bleed, CV risk, etc. 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 She formerly saw [facility] Rheumatology with last visit in December 2021 per available records. She was diagnosed with fibromyalgia by former pump stitcher on the basis of widespread MSK pain, [...] after CTS release with dropping things, decreased case sealer strength. Reports sometimes she has swelling, redness, [...] Patient Active Proble (more content not included)... [facility] 04-07-2023 Note Reviewed recent lipi [...] draw Elodia Oscar NP Division of Cardiology, [facility]- [phone] Pager- [phone] Email- [email or web address] 04-07-2023 Miscellaneous Notes Notify patient medication [...] with confirmation. documented in this encounter [facility] 02-10-2023 Note Coronary artery dise ase is stable Continue GDMT- ASA, lipitor, toprol continue risk factor modifications- heart healthy diet, regular exercise as tolerated and continue all medications. Pt to have repeat lipid and lft levels drawn soon [facility] 02-10-2023 Note D/W pt that may need to see GI for further evaluation for other etiology of her chest pain and may be r/t GERD [facility] 02-10-[address] [facility] 02-10-2023 Note Currently denied chest pain [facility] 02-10-2023 Note Continue lipitor 80 mg, lipid level well controlled currently [facility] 02-10-2023 Note Hypertension is stab le and well controlled at home Continue norvasc, toprol [facility] 02-10-2023 Note [facility] CARDIOLOGY PROGR [...] stenosis. LCX - (more content not included)... [facility] 02-10-2023 Note Review of Systems All other systems reviewed and are negative. [facility] 10-13-2022 Note OPERATIVE NOTE OPERATION [...] left cheek was prepped with Betadine. A [place] tip Bovie was then used to make [...] the recovery room in good condition. [facility] 10-07-2022 Note EXAM: XR CHEST 2 V HISTORY: Pre-surgery evaluation COMPARISON: None. TECHNIQUE: PA and lateral views of the chest. FINDINGS: The cardiomediastinal silhouette is normal. No focal consolidation is identified. There is no pneumothorax. No pleural effusion is noted. The osseous structures are intact. IMPRESSION: No acute cardiopulmonary process. Electronically authenticated by: JOSIAH LE Date: 2022-10-07 11:27 [facility] 07-23-2022 Note CONSULTATION CONSULTATION DATE: [...] Patient does agree with this plan. [facility] 06-11-2022 Note CONSULTATION CONSULTATION DATE: 06/11/2022 [...] q.h.s. 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 [facility] 05-18-2022 Miscellaneous Notes Patient's request for medication is as follows: Requested Prescriptions Signed Prescriptions Disp Refills celecoxib (CELEBREX) 200 mg capsule 180 capsule 3 Sig: Take 1 capsule by mouth twice daily. Prescription(s) as above. Please process accordingly. Gayle Washington MD Tru[employer] message sent to patient reminding her to [...] Lab Orders Expected Expires Ordered HLA-B27 PCR [[id number]] 06/19/21 06/18/22 06/18/21 Auth. provider: Gayle Washington MD Assoc. diagnoses: Elevated sedimentation rate VITAMIN D 25 HYDROXY [SQVITD] 03/19/22 12/17/22 12/17/21 Auth. provider: Gayle Washington MD Assoc. diagnoses: Vitamin D deficiency documented in this encounter [facility] 04-16-2022 Note CONSULTATION PROCEDURE DATE: [...] the clinic in three months' time. [facility] 04-09-2022 Note CONSULTATION CONSULTATION DATE: 04/09/2022 [...] to the clinic for her injection. [facility] 01-01-2022 Note CONSULTATION CONSULTATION DATE: 01/01/2022 This is a pleasant 51-year-old female returning to the clinic status post #2 bilateral MBB on C3, C4 and C5 that afforded her 80% relief for 5 days. She was recently at her pump stitcher's and was diagnosed with fibromyalgia and she [...] be followed up in the clinic post-procedure. [facility] Signed and Approved by: BEN MONROE . 01/08/2022 10:22:00 [facility] 12-17-2021 Miscellaneous Notes Pt aware. [...] to My Chart if tests completed at [facility]: Mildly low vitamin D- increase [...] labral tear; documented in this encounter [facility] 12-12-2021 Note HNO ID: [id number] Author: Gayle Washington MD Service: ? Author [...] with mobic, see ortho/pain clinic for termite treater helper pain recommendations/injections, prn acetaminophen, start prn heat/ice/otc arthritis creams, low impact weightbearing exercise as tolerated, avoid aggravating triggers,supportive care, start flexeril/notify office if not tolerated, improved with mobic, see ortho/pain clinic for termite treater helper pain recommendations/injections, prn acetaminophen, start prn heat/ice/otc [...] yes Dactylitis: no H/o precedent/frequent infection(s): no Enthesopathy/Wrightwood's/heel/plant ar tenderness: as above Skin thickening, psoriasis, photosensitivity, purpura: no Nail changes: ridges/ripples Alpecia, patchy: no Eye inflammation: glasses, R retinal hole SICCA: dry eyes Oral/nasal/genital ulcers: no GI problems-diarrhea/bleeding/IBD/Gl uten intolerence/Dysphagia: gerd Raynaud's phenomenon/digital ulcers: no Organ inv-Serositis: no Lung disease/ILD: no Myopathy/proximal muscle weakness: no Abnormal Urine or urethritis: no Renal/liver disease: no MULTINEEDLE SHIRRER/PNS/sz/cva/cancer disease: no HEME-Cytopenias/LAD/Clots: no Fevers: no Fatigue: [...] MEDICAL HISTORY: PMH (more content not included)... [facility] 12-12-2021 History of Present illness Narrative Face [...] with mobic, see ortho/pain clinic for termite treater helper pain recommendations/injections, prn acetaminophen, start prn heat/ice/otc arthritis creams, low impact weightbearing exercise as tolerated, avoid aggravating triggers,supportive care, start flexeril/notify office if not tolerated, improved with mobic, see ortho/pain clinic for residential pain recommendations/injections, prn acetaminophen, start prn heat/ice/otc arthritis creams, low impact weightbearing exercise as tolerated, avoid aggravating triggers, June 04, 2021 SUBJECTIVE Ms. aGrcia is a 51 year old female who [...] yes Dactylitis: no H/o precedent/frequent infection(s): no Enthesopathy/Wrightwood's/heel/plant ar tenderness: as above Skin thickening, psoriasis, photosensitivity, purpura: no Nail changes: ridges/ripples Alpecia, patchy: no Eye inflammation: glasses, R retinal hole SICCA: dry eyes Oral/nasal/genital ulcers: no GI problems-diarrhea/bleeding/IBD/Gl uten intolerence/Dysphagia: gerd Raynaud's phenomenon/digital ulcers: no Organ inv-Serositis: no Lung disease/ILD: no Myopathy/proximal muscle weakness: no Abnormal Urine or urethritis: no Renal/liver disease: no MULTINEEDLE SHIRRER/PNS/sz/cva/cancer disease: no HEME-Cytopenias/LAD/Clots: no Fevers: no Fatigue: [...] flat ground knees give out. COVID vaccine [employer] 06/26/21. Feels safe at home. Has enough food, supplies and medications. Overall uncomfortable but happy with rheum care. = supportive care, start celebrex/notify office if not tolerated, OFF mobic/initially improved with medication but now effect wore off, prn flexeril, see pain clinic for residential pain recommendations, see ortho/pain clinic for residential [...] video & audio (virtual) or phone or [id number] patient care, completing clinical documentation, obtaining and/or [...] Dr.Renee Leora Gibbons, documented in this encounter [facility] 12-12-2021 Instructions Gayle Washington MD [...] Thank you. documented in this encounter [facility] 12-09-2021 Miscellaneous Notes Patient has been scheduled as requested for 12/12/21. Referral has been attached. I spoke with Ms. Garcia and she is aware of all of the appointment details. Nataliya DYKES December 09, 2021 2:43 PM Patient calling to schedule follow up appt with Dr Washington no schedule pulling for [place] only [place]. Patient requesting call at [phone] Washington is still at [place]. Please advise. documented in this encounter [facility] 11-18-2021 Note PAIN MANAGEMENT CONS ULTATION CONSULTATION DATE: 11/18/2021 CHIEF COMPLAINT: Cervical pain. HISTORY OF PRESENT ILLNESS: This is a 51-year-old female who had, in the past, been seen by Dr. Brunner, Pain Management in [place], [place]. The patient had changed her insurances to [place] and, as such, Dr. Brunner does not [...] like to proceed. CC: Kimberley Gibbons D.O. [facility] Signed and Approved by: DR RACHEL STOCK . 11/25/2021 12:22:00 [facility] 10-14-2021 Evaluation note Encounter Date Diagnosis [...] nerve block in the future if needed. [facility] 12-28-2021 Evaluation note* Encounter Date Diagnosis [...] right hip to further evaluate her pain. [facility] 12-15-2021 Evaluation note* Encounter Date Diagnosis [...] (ICD-10 - G89.29) Continue medications as prescribed [facility] 11-11-2021 Evaluation note* Encounter Date Diagnosis [...] (ICD-10 - G89.29) Continue medications as prescribed [facility] 09-29-2021 Evaluation note* Encounter Date Diagnosis [...] injection under ultrasound guidance in the future. [facility] Evaluation note* Diagnosis Secondary osteoarthritis of [...] Chronic pain syndrome documented in this encounter [facility] noteNo InformationNort [employer] Other Evaluation note* Diagnosis Secondary osteoarthritis of multiple sites- Primary Osteoarthrosis involving, or with mention of more than one site, but not specified as generalized, multiple sites Vitamin D deficiency Unspecified vitamin D deficiency Fibromyalgia Mylagia and myositis, unspecified documented in this encounter [facility] note* Diagnosis Secondary osteoarthritis of multiple sites Osteoarthrosis involving, or with mention of more than one site, but not specified as generalized, multiple sites documented in this encounter [facility] note* Diagnosis Chronic hip pain, bilateral Chronic left shoulder pain Pain in joint, shoulder region Chronic pain of both knees Bilateral hand pain Pain in limb documented in this encounter [facility] note* Diagnosis Secondary osteoarthritis of multiple sites Osteoarthrosis involving, or with mention of more than one site, but not specified as generalized, multiple sites Cervicalgia Chronic bilateral low back pain with bilateral sciatica documented in this encounter [facility] note* Diagnosis Flatulence, eructation and gas pain Flatulence, eructation, and gas pain Chronic GERD documented in this encounter [facility] general Narrative - Reported* Type Description Date Medical History allergies Medical History factor 5 blood disorder Medical History anxiety Medical History depression Medical History bipolar Medical History lumbar DDD Surgical History back surgery 06/2021 Surgical History neck surgery 05/2021 Hospitalization History see above [facility] Other History general Narrative - Reported* Type Description Date Medical History allergies Medical History factor 5 blood disorder Medical History anxiety Medical History depression Medical History bipolar Medical History lumbar DDD Medical History osteoarthritis of multiple joint s Surgical History back surgery 06/2021 Surgical History neck surgery 05/2021 Hospitalization History see above [facility] History of Present illness NarrativePatient has continued intermittent pain symptoms in her right shoulder she is remotely status post rotator cuff repair she had a follow-up MRI scan recently she would like to review with me today. She had a subacromial injection but it did not resolve all of her symptoms.[id number] Work Phone: Reason for referral (narrative)* Diagnostic Procedure Only (Routine) - Closed Specialty Diagnoses / Procedures Referred By Contac t Referred To Contact XR IMAGING Diagnoses Bilateral hand pain Procedures XR HAND GENERAL 3V PA/LAT/OBL BILATERAL X-RAY HAND MINIMUM 3 VIEWS Gayle Washington MD [address] [place] [address] Xr Imaging Referral ID Status Reason Start Date Expiration Date V isits Requested Visits Authorized [id number] Closed Auto-Generate d Referral 06/04/2021 07/04/2022 1 1 * Diagnostic Procedure Only (Routine) - Closed Specialty Diagnoses / Procedures Referred By Contac t Referred To Contact XR IMAGING Diagnoses Chronic pain of both knees Procedures XR KNEE GENERAL 4V AP BOTH/PA BOTH/LAT/MERC BILATERAL KNEE AP-WGT/LAT/MERCHANT Gayle Wahsington MD [address] [place] [address] Xr Imaging Referral ID Status Reason Start Date Expiration Date V isits Requested Visits Authorized [id number] Closed Auto-Generate d Referral 06/04/2021 07/04/2022 1 1 * Diagnostic Procedure Only (Routine) - Closed Specialty Diagnoses / Procedures Referred By Contac t Referred To Contact XR IMAGING Diagnoses Chronic left shoulder pain Procedures XR SHOULDER GENERAL 3V OR MORE AP/TRUE AP/OTHER LEFT X-RAY SHOULDER COMPLET MIN 2 VIEWS Gayle Washington MD [address] [place] [address] Xr Imaging Referral ID Status Reason Start Date Expiration Date V isits Requested Visits Authorized [id number] Closed Auto-Generate d Referral 06/04/2021 07/04/2022 1 1 * Diagnostic Procedure Only (Routine) - Closed Specialty Diagnoses / Procedures Referred By Contac t Referred To Contact XR IMAGING Diagnoses Chronic hip pain, bilateral Procedures XR HIP BILATERAL 5V PEL/AP/LAT EACH HIP RADEX HIPS BILATERAL WITH PELVIS MINIMUM 5 VIEWS Gayle Washington MD [address] [place] [address] Xr Imaging Referral ID Status Reason Start Date Expiration Date V isits Requested Visits Authorized [id number] Closed Auto-Generate d Referral 06/04/2021 07/04/2022 1 1 [facility] Diagnostic Procedure Only (Routine) - Closed Specialty Diagnoses / Procedures Referred By Contac t Referred To Contact XR IMAGING Diagnoses Bilateral hand pain Procedures XR HAND GENERAL 3V PA/LAT/OBL BILATERAL X-RAY HAND MINIMUM 3 VIEWS Gayle Washington MD [address] [place] [address] Xr Imaging Referral ID Status Reason Start Date Expiration Date V isits Requested Visits Authorized [id number] Closed Auto-Generate d Referral 06/04/2021 07/04/2022 1 1 [facility] Summary Purpose Family History No [...] pain, left Procedures CONSULT TO ORTHOPAEDICS OFFICE/OUTPATIENT [facility] 60-74 MINUTES Gayle Washington MD [address] [place] [address] Referral ID Status Reason Start Date Expiration Date Visits Requested Visits Authorized [id number] Pending Review PCP Requested Referral 12/12/2021 12/12/2022 1 1 Additional Source Comments INFORMATION SOURCE (unrecogn ized section and content) DATE CREATED AUTHOR 06/20/2020 [facility] DATE CREATED AUTHOR AUTHOR'S ORGANIZ ATION 06/27/2020 [facility] DATE CREATED AUTHOR AUTHOR'S ORGANIZ ATION 12/01/2020 [facility] DATE CREATED AUTHOR AUTHOR'S ORGANIZ ATION 02/23/2021 [facility] DATE CREATED AUTHOR AUTHOR'S ORGANIZ ATION 02/23/2021 [employer] DATE CREATED AUTHOR AUTHOR'S ORGANIZ ATION 12/26/2021 [facility] DATE CREATED AUTHOR AUTHOR'S ORGANIZ ATION 07/02/2022 [facility] DATE CREATED AUTHOR AUTHOR'S ORGANIZ ATION 10/08/2022 [facility] DATE CREATED AUTHOR AUTHOR'S ORGANIZ ATION 10/20/2022 [facility] DATE CREATED AUTHOR AUTHOR'S ORGANIZ ATION 10/30/2023 [facility] DATE CREATED AUTHOR AUTHOR'S ORGANIZ ATION 01/27/2024 [facility] DATE CREATED AUTHOR AUTHOR'S ORGANIZ ATION 02/05/[address] [facility] DATE CREATED AUTHOR AUTHOR'S ORGANIZ ATION 02/21/2024 [facility] Source Comments (unrecognize d section and content) In the event this informatio n is protected by the Federal Confidentiality of Alcohol and Drug Abuse Patient Records regulations: The Federal rules restrict any use of the information to criminally investigate or prosecute any alcohol or drug abuse patient.[facility] the event this information is protected by the Federal Confidentiality of Alcohol and Drug Abuse Patient Records regulations: The Federal rules restrict any use of the information to criminally investigate or prosecute any alcohol or drug abuse patient.[facility] the event this information is protected by the Federal Confidentiality of Alcohol and Drug Abuse Patient Records regulations: The Federal rules restrict any use of the information to criminally investigate or prosecute any alcohol or drug abuse patient.[facility] the event this information is protected by the Federal Confidentiality of Alcohol and Drug Abuse Patient Records regulations: The Federal rules restrict any use of the information to criminally investigate or prosecute any alcohol or drug abuse patient.[facility] the event this information is protected by the Federal Confidentiality of Alcohol and Drug Abuse Patient Records regulations: The Federal rules restrict any use of the information to criminally investigate or prosecute any alcohol or drug abuse patient.[facility] the event this information is protected by the Federal Confidentiality of Alcohol and Drug Abuse Patient Records regulations: The Federal rules restrict any use of the information to criminally investigate or prosecute any alcohol or drug abuse patient.[facility] Reason for Visit (unrecogniz ed section and content) Reason Comments Follow Up Pain ongoing generalized pain. Specialty Diagnoses / Procedures Referred By Contnelida t Referred To Contact RHEUMATOLOGY Diagnoses Follow Up Procedures OFFICE/OUTPATIENT ESTABLISHED MOD MDM 30-39 MIN Follow Up Gayle Washington MD [address] [place] [address] [facility] [place] [address] Referral ID Status Reason Start Date Expiration Date Visits Requested Visits Authorized [id number] Waiting for Response OON/Self Pay Override Patient cleared - OON Required Payment Collected 12/08/2021 03/08/2022 1 1 Reason Comments Appointment Reason Comments Results Care Teams (unrecognized sec tion and content) Sap Developer Relationship Specialty Start Date End Date Kimberley Gibbons, DO [address] [place] [address] PCP - General Family Practice 06/04/21 Sap Developer Relationship Specialty Start Date End Date Kimberley Gibbons, DO [address] [place] [address] PCP - General Family Practice 06/04/21 Sap Developer Relationship Specialty Start Date End Date Kimberley Gibbons, DO [address] [place] [address] PCP - General Family Medicine 06/04/21 Sap Developer Relationship Specialty Start Date End Date Kimberley Gibbons, DO [address] [place] [address] PCP - General Family Medicine 06/04/21 Sap Developer Relationship Specialty Start Date End Date Kimberley Gibbons, [address] [place] [address] PCP - General Family Medicine 06/04/21 Sap Developer Relationship Specialty Start Date End Date Kimberley Gibbons DO [address] [place] [address] PCP - General Family Medicine 06/04/21 FOR [...] BE BASED ON THE PRIMARY CLINICAL RECORDS. [employer] [facility]. provides no warranty or guarantee of the accuracy or completeness of information in this document.
--- NOTE | 2024-03-30 10:40 | P.CN_ITS ---
Consult Note: HPI Data of Consult Patient: known to practice within the last 3 years Requesting Physician: Stephanie Mike NP Primary Care Provider: Non-Staff Physician, MD Consult Narrative Reason for consult: chronic neck pain Narrative: Lizbeth Garcia a pleasant 53 year old female presents for evaluation of chronic pain. Patient has a hx of cervical RFAs with Dr Thornton and tailbone RFAs with Dr Caballero. Lumbar spine surgery with lumbosacral fusion per pt L5-Sacral. Patient reporting pain today 6-7/10 sharp aching on left side of neck. increased with twisting, pushing, pulling, bending. improved with bracing and ice. patient previously reported numbness, tingling, weakness of LUE which has resolved. has noticed continued numbness to left side of her neck. found significant relief with medrol dose pack, lidocaine topically, and flexeril 10mg BID. cc:: CC: Stephanie Mike NP Review of Systems ROS Status of ROS 10 or more systems reviewed and unremark able except as noted in history and below Musculoskeletal Reports: neck pain PFSH PFSH Medical History Former cigarette smoker ?Z87.891 - Personal history of nicotine dependence (ICD-10) Heartburn ?R12 - Heartburn (ICD-10) Acid reflux ?K21.9 - Gastro-esophageal reflux disease without esophagitis (ICD-10) Osteoarthritis ?M19.90 - Unspecified osteoarthritis, unspecified site (ICD-10) Low back pain ?M54.50 - Low back pain, unspecified (ICD-10) Factor 5 Leiden mutation, heterozygous ?D68.51 - Activated protein C resistance (ICD-10) Anxiety ?F41.9 - Anxiety disorder, unspecified (ICD-10) Obesity ?E66.9 - Obesity, unspecified (ICD-10) Diabetes ?E11.9 - Type 2 diabetes mellitus without complications (ICD-10) SOB (shortness of breath) ?R06.02 - Shortness of breath (ICD-10) High cholesterol ?E78.00 - Pure hypercholesterolemia, unspecified (ICD-10) Hypertension ?I10 - Essential (primary) hypertension (ICD-10) Irregular heart beat ?I49.9 - Cardiac arrhythmia, unspecified (ICD-10) Angina at rest ?I20.89 - Other forms of angina pectoris (ICD-10) Surgical History H/O arthroscopic knee surgery ?Z98.890 - Other specified postprocedural states (ICD-10) H/O lumbosacral spine surgery ?Z98.890 - Other specified postprocedural states (ICD-10) H/O cervical spine surgery ?Z98.890 - Other specified postprocedural states (ICD-10) H/O arthroscopy of shoulder ?Z98.890 - Other specified postprocedural states (ICD-10) H/O carpal tunnel repair ?Z98.890 - Other specified postprocedural states (ICD-10) H/O: hysterectomy ?Z90.710 - Acquired absence of both cervix and uterus (ICD-10) Meds Home Medications and Allergies Home Medications ?Medication ?Instructions ?Recorded ?Confirmed ?Type B-complex with vitamin C 1 tab PO DAILY 08/26/23 02/07/24 History acetaminophen 500 mg tablet 1,500 mg PO DAILY PRN pain 08/26/23 02/07/24 History (Tylenol Extra Strength) amlodipine 5 mg tablet 5 mg PO DAILY 08/26/23 02/07/24 History aspirin 81 mg capsule 81 mg PO DAILY 08/26/23 02/07/24 History atorvastatin 80 mg tablet 80 mg PO DAILY 08/26/23 02/07/24 History celecoxib 400 mg capsule (Celebrex) 400 mg PO BID 08/26/23 02/07/24 History cholecalciferol (vitamin D3) 50 50 mcg PO DAILY 08/26/23 02/07/24 History mcg (2,000 unit) capsule clonazepam 0.5 mg tablet 0.5 mg PO BID 08/26/23 02/07/24 History cyclobenzaprine 10 mg tablet 10 mg PO BID 08/26/23 02/07/24 History desvenlafaxine succinate 100 mg 100 mg PO DAILY 08/26/23 02/07/24 History tablet,extended release 24 hr (Pristiq) ezetimibe 10 mg tablet 10 mg PO DAILY 08/26/23 02/07/24 History lamotrigine 300 mg tablet,extended 300 mg PO DAILY 08/26/23 02/07/24 History release 24 hr magnesium glycinate PO 08/26/23 History metoprolol succinate 25 mg 25 mg PO DAILY 08/26/23 02/07/24 History tablet,extended release 24 hr quetiapine 200 mg tablet 200 mg PO DAILY 08/26/23 02/07/24 History Allergies Allergy/AdvReac Type Severity Reaction Status Date / Time ibuprofen AdvReac Mild Verified 10/25/23 08:09 tramadol AdvReac Mild Verified 10/25/23 08:09 Exam Constitutional Documenting provider has reviewed patient's vital signs: yes Common normals: no apparent distress, oriented x3, healthy appearing, alert and well nourished General appearance: cooperative HENWV Common normals: normocephalic, hearing grossly normal bilaterally and moist oral mucous membranes Head and scalp: normocephalic Eye Common normals: PERRL Pupil: PERRL Neck & C-Spine Common normals: full ROM General: normal visual inspection Cervical spine: cervical ROM normal, pain with cervical ROM and cervical spine tenderness Other: negative spurlings sensation intact BUE strength 5/5 in BUE numbness and tingling midline and left side of neck non tender to greater and lesser occipital nerves Chest Common normals: inspection of chest normal Respiratory Common normals: normal respiratory effort, no retractions and no use of accessory muscles Extremity Common normals: normal to inspection and full ROM Neuro Common normals: oriented x3, CN's II-XII intact bilaterally, moves all extremities, no focal motor deficits, no sensory deficits noted and deep tendon reflexes 2+ bilaterally Sensorium/orientation: alert Motor exam: strength 5/5 throughout and no movement abnormalities noted Psych Common normals: mental status grossly normal, thought process normal, cooperative, affect normal, speech normal and activity/motor behavior normal Speech: normal speech Thought process: normal thought process Results Additional Findings Additional findings: If on a controlled substance or opioids, I have checked an [place] report on this patient and there are no aberrancies noted in the prescribing history.??If on a controlled substance or opioid a drug screen was completed and reviewed within the last year, and if there has not been a drug screen completed we ordered one today to monitor higher risk, state monitored pain medication use. As part of providing excellent, safe, comprehensive care, the following was completed at our patient's visit: 1. A medication reconciliation and review to ensure accurate knowledge of current/active medications, including asking our patients to inform us about any [id number] medications or herbal remedies/nutritional supplements/alternative remedies. 2. A review to specifically ensure our patients have had annual screening for screening for depression, screening for tobacco use, and screening for unhealthy alcohol use. For concerning screenings had a discussion with the patient, provided patient education, and recommended follow-up with primary care provider when appropriate. If patient noted with a risk of falling, they received education on strength, gait, and balance training to prevent future risk of falling. Assessment and Plan Assessment and Plan (1) Cervical spondylosis: (2) Chronic pain syndrome: (3) Cervical radiculopathy: Assessment and Plan: resolved (4) Myalgia, other site: Plan continues to have neuritis after cervical RFA, previously declined gabapentin and is interested in retrialing. start gabapentin 300mg HS f/u with Dr Cotton for left paracervical TPI continue topical lidocaine continue current medications
== END 2024-03-30 10:13 | disposition home or self-care (01) ==
PROVIDERS: Visit Provider Nurse Practitioner
DX: M47.812 Spondylosis without myelopathy or radiculopathy, cervical region (principal); G89.4 Chronic pain syndrome; M54.12 Radiculopathy, cervical region; M79.18 Myalgia, other site
CPT/HCPCS: G0463

== ENCOUNTER 2024-04-10 11:56 | Outpatient (OUT) | payer OTHER, SELFPAY ==
--- OUTSIDE RECORDS SUMMARY | 2024-04-10 12:15 | XMS_ITS | CCD ---
Author Organization [facility] Care Team Providers Care Log Loader Helper Name Role Phone GENOVEVA, CRISTOBAL F Primary [...] Care Unavailable FELICIA, FEMI H. Referring Unavailable [place], Cristobal F Unavailable [phone] Edwige DO, Kimberley Leora Primary Care Provider [phone] Emmett Brunner Unavailable Letty Olson Unavailable Edwige [...] Consulting Unavailable JAVIER ROLDAN Consulting Unavailable Kimberley Gibbosn DO Primary Care Provider Unavailable Primary Care [...] 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: [IBUPROFEN] Drug Allergy 0 Unknown, Diarrhea [facility] (20 sources) traMADol; 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: [TRAMADOL] Drug Allergy 9 Unknown, Nausea Only [facility] (1 source) Ibuprofen Drug Allergy [facility] [place] (1 source) traMADol Drug Allergy [address] [facility] Repository Medications Current Medications Medication [...] on above: Take 1 capsule by mo [facility] twice daily. Take [address] [facility] two times a day. clonazePAM 0.5 mg [...] daily. 0 Active take 1 tablet by [facility] every twenty-four hours Pristiq 100 MG [...] tablet by mouth 0 12/01/2022 12/01/2023 Active [place]-3 Fatty Acids (FISH OIL) 1200 MG CAPS (1 source) [place]-3 Fatty Ac ids (FISH OIL) 1200 MG [...] Take 0.5 mg by mouth once daily. qnhuo-pz-9-nze-hnw-qpqh joey-ast 1,699-152-85-80 mg cap (4 sources) crhzn-my-6-dha-e pa-joey spho-ast 1,580-724-10-80 mg cap Take by mouth. 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 STOMACH, ANTRUM, BIOPSIES: [...] Description A-C. Microscopic examination performed. Processing Lab: [address] [id number] Interpretation Performed at [address] [address] SURGICAL PATHOLOGY CONSULTATION Patient Name: LEXI GARCIA Med Rec: [id number] [facility] ANATOMIC PATHOLOGY [address] [place] [id number] [facility] Follow-Upon 01-25-2024 Follow-Up [id number] Nikko Garcia 1970 Date Provider Department Center 01/25/2024 [facility] RHEUM Heri Heal Family History Problem Relation Age of Onset COPD Mother Coronary artery disease Father 56 Family Status - Relation Status Age at Mother Alive Father Level of Service:43084 [place] OFFICE/OUTPATIENT ESTABLISHED LOW MDM 20 MIN (GC) Reason for Visit and Comments: Follow-up [378155] - 3 mth follow up [facility] Abstracton 11-30-2023 Abstract [id number] Nikko Garcia 1970 Provider Department Center 11/30/2023 SVITLANA TORRES C RHEUM Heri Heal Family History Problem Relation Age of Onset COPD Mother Coronary artery disease Father 56 Family Status - Relation Status Age at Mother Alive Father Normal [facility] 36on 11-22-2023 36 Last visit: 10/26/23 Next visit: 01/25/24 CBC: 12/12/21 BMP: 01/21/23 [facility] Refillon 11-20-2023 Refill [id number] Nikko Garcia 1970 Date Provider Department Center 11/20/2023 SOL[facility]IO [facility] C RHEUM Heri Heal Family History Problem Relation Age of Onset COPD Mother Coronary artery disease Father 56 Family Status - Relation Status Age at Mother Alive Father Reason for Visit and Comments: Med Refill [447913] Normal [facility] Office Visiton 11-02-2023 Follow-up visit [id number] Nikko Garcia 1970 Date Provider Department Center 11/02/2023 Haroon-TIM SAMUELS [facility] Family History Problem Relation Age of Onset COPD Mother Coronary artery disease Father 56 Family Status - Relation Status Age at Mother Alive Father Level of Service:21555 [place] OFFICE/OUTPATIENT ESTABLISHED MOD MDM 30 MIN Reason for Visit and Comments: Atrial Fibrillation [80] - symptoms Normal [facility] Follow-Upon 10-26-2023 Follow-Up [id number] Nikko Garcia 1970 Date Provider Department Center 10/26/2023 [facility] RHEUM Heri Heal Family History Problem Relation Age of Onset COPD Mother Coronary artery disease Father 56 Family Status - Relation Status Age at Mother Alive Father Level of Service:52853 [place] OFFICE/OUTPATIENT ESTABLISHED LOW MDM 20 MIN (GC) Reason for Visit and Comments: Follow-up [755526] Normal [facility] Celiac Disease Panelon 09-13 G[employer] Deam Pep IgA 1.9 U/mL Normal <7.0 [facility] Comment on above: Result Comment: CELIAC INTERPRETATION <7.0 Negative 7.0-10.0 Equivocal >10.0 Positive units: U/mL Performed By: #### C ELP #### [employer] [address] [place], [place] [id number] Global Sales Director: Talib Clements MD Gliadin Deam Pep IgG <0.4 Normal <7.0 [facility] Comment on above: Result Comment: CELIAC INTERPRETATION <7.0 Negative 7.0-10.0 Equivocal >10.0 Positive units: U/mL Performed By: #### C ELP #### [employer] [address] [place], [place] [id number] Global Sales Director: Talib Clements MD Tiss Transglutam IgA 0.4 U/mL Normal <7.0 [facility] Comment on above: Result Comment: CELIAC INTERPRETATION <7.0 Negative 7.0-10.0 Equivocal >10.0 Positive units: U/mL Performed By: #### C ELP #### [facility] [employer] [facility] [place], [place] [id number] Global Sales Director: Talib Clements MD IgA [Mass/Vol] 184 mg/dL Normal 70-400 [facility] Comment on above: Performed By: #### C ELP #### [facility] [employer] [address] [place] [address] Global Sales Director: Talib Clements MD H. pylori Antigenon 09-14-19 24 H. pylori Antigen Specimen Description .FECES Direct Exam NEGATIVE Report Status FINAL 09/14/2023 [facility] Comment on above: Performed By: #### F HPY #### [address] [address] Global Sales Director: Talib Clements MD [facility] [address] [place] [address] Global Sales Director: David Hough MD Orders Onlyon 08-05-2023 Orders Only [id number] Nikko Garcia 1970 F Date Provider Department Center 08/05/2023 SHANON HSIEH Family History Problem Relation Age of Onset COPD Mother Coronary artery disease Father 56 Family Status - Relation Status Age at Mother Alive Father [facility] Follow-Upon 06-22-2023 Follow-Up [id number] Nikko Garcia 1970 F Date Provider Department Center 06/22/2023 [facility] RHEUM Heri Heal Family History Problem Relation Age of Onset COPD Mother Coronary artery disease Father 56 Family Status - Relation Status Age at Mother Alive Father Level of Service:81316 [place] OFFICE/OUTPATIENT ESTABLISHED MOD MDM 30 MIN (GC) Reason for Visit and Comments: Follow-up [566488] - [facility] DEXA BONE DENSITYon 05-11-20 23 [...] Not Available Office Visiton 04-27-2023 Follow-up visit [id number] Nikko Garcia 1970 F Date Provider Department Center 04/27/2023 [facility] RHEUM Heri Heal Family History Problem Relation Age of Onset COPD Mother Coronary artery disease Father 56 Family Status - Relation Status Age at Mother Alive Father Level of Service:37402 [place] OFFICE/OUTPATIENT NEW MODERATE MDM 45-59 MINUTES (GC) Reason for Visit and Comments: 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 I let her know I sent a new mychart code so she can establish mychart and view her visit information there [facility] Office Visiton 02-10-2023 Follow-up visit [id number] Nikko Garcia 1970 F Date Provider Department Center 02/10/2023 Nory-ELODIA SOCAR CARD [facility] Family History Problem Relation Age of Onset COPD Mother Coronary artery disease Father 56 Family Status - Relation Status Age at Mother Alive Father Level of Service:31592 [place] OFFICE/OUTPATIENT ESTABLISHED MOD MDM 30 MIN Reason for Visit and Comments: Follow-up [141533] - Pt is here for f/u heart cath [facility] CBC AUTO DIFFon 10-07-2022 BASO # 0.0 103/ul Normal 0.0-0.1 [facility] Comment on above: Performed By: #### C BC #### [facility] [address] [place] [address] Dr. Donna Cantrell Basophils/100 WBC (Bld) 0.5 % Normal 0.2-2.0 [facility] Comment on above: Performed By: #### C BC #### [facility] [address] [place] [address] Dr. Donna Cantrell EO # 0.0 103/ul Normal 0.0-0.7 [facility] Comment on above: Performed By: #### C BC #### [facility] [address] [place] [address] Dr. Donna Cantrell Eosinophils/100 WBC (Bld) 0.0 % Critically low 0.9-7.0 [facility] Comment on above: Performed By: #### C BC #### [facility] [address] [place] [address] Dr. Donna Cantrell Erythrocyte distribution width (RBC) [Ratio] 13.6 % Normal 11.0-15.0 [facility] Comment on above: Performed By: #### C BC #### [facility] [address] [place] [address] Dr. Donna Cantrell Hematocrit (Bld) [Volume fraction] 42.0 % Normal 36.0-48.0 [facility] Comment on above: Performed By: #### C BC #### [facility] [address] [place] [address] Dr. Donna Cantrell Hemoglobin (Bld) [Mass/Vol] 14.4 g/dL Normal 12.0-16.0 [facility] Comment on above: Performed By: #### C BC #### [facility] [address] [place] [address] Dr. Donna Cantrell IG # 0.06 10e3/ul Critically high 0.00-0.03 [facility] Comment on above: Performed By: #### C BC #### [facility] [address] [place] [address] Dr. Donna Cantrell IG % 0.8 % Critically high 0.0-0.5 [facility] Comment on above: Performed By: #### C BC #### [facility] [address] [place] [address] Dr. Donna Cantrell LYMPH # 2.5 103/ul Normal 1.2-3.8 [facility] Comment on above: Performed By: #### C BC #### [facility] [address] [place] [address] Dr. Donna Cantrell Lymphocytes/100 WBC (Bld) 30.8 % Normal 20.5-60.0 [facility] Comment on above: Performed By: #### C BC #### [facility] [address] [place] [address] Dr. Donna Cantrell MANUAL DIFF REQ NO Normal [facility] Comment on above: Performed By: #### C BC #### [facility] [address] [place] [address] Dr. Donna Cantrell MCH (RBC) [Entitic mass] 30.3 pg Normal 26.7-34.0 [facility] Comment on above: Performed By: #### C BC #### [facility] [address] [place] [address] Dr. Donna Cantrell MCHC (RBC) [Mass/Vol] 34.3 g/dL Normal 29.9-35.2 [facility] Comment on above: Performed By: #### C BC #### [facility] [address] [address] [address] Donna Cantrell MCV (RBC) [Entitic vol] 88.2 fL Normal 81.0-99.0 [facility] Comment on above: Performed By: #### C BC #### [facility] [address] [address] [address] Donna Cantrell MONO # 0.5 103/ul Normal 0.3-0.8 [facility] Comment on above: Performed By: #### C BC #### [facility] [address] [place] [address] Dr. Donna Cantrell Monocytes/100 WBC (Bld) 6.4 % Normal 1.7-12.0 [facility] Comment on above: Performed By: #### C BC #### [facility] [address] [place] [address] Dr. Donna Cantrell NEUT # 4.9 103/ul Normal 1.4-6.5 [facility] Comment on above: Performed By: #### C BC #### [facility] [address] [place] [address] Dr. Donna Cantrell Neutrophils/100 WBC (Bld) 61.5 % Normal 43.0-75.0 [facility] Comment on above: Performed By: #### C BC #### [facility] [address] [place] [address] Dr. Donna Cantrell Platelet mean volume (Bld) [Entitic vol] 9.9 fL Normal 9.5-13.5 [facility] Comment on above: Performed By: #### C BC #### [facility] [address] [place] [address] Dr. Donna Cantrell PLT 234 103/ul Normal 150-[address] [facility] Comment on above: Performed By: #### C BC #### [facility] [address] [place] [address] Dr. Donna Cantrell RBC 4.76 106/ul Normal 4.20-5.40 [facility] Comment on above: Performed By: #### C BC #### [facility] [address] [address] [address] Donna Cantrell WBC 8.0 103/ul Normal 4.0-11.0 [facility] Comment on above: Performed By: #### C BC #### [facility] [address] [address] [address] Donna Cantrell PROF CHEM 8 (BAS METB)on Anion gap [Moles/Vol] 13.9 mmol/L Normal [facility] Comment on above: Performed By: #### B MP #### [facility] [address] [address] [address] Donna Cantrell Calcium [Mass/Vol] 8.9 mg/dL Normal 8.5-10.1 [facility] Comment on above: Performed By: #### B MP #### [facility] [address] [address] [address] Donna Cantrell Chloride [Moles/Vol] 104 mmol/L Normal 98-[address] [facility] Comment on above: Performed By: #### B MP #### [facility] [address] [address] [address] Donna Cantrell CO2 [Moles/Vol] 26.3 mmol/L Normal 21.0-32.0 [facility] Comment on above: Performed By: #### B MP #### [facility] [address] [address] [address] Donna Cantrell Creatinine [Mass/Vol] 0.91 mg/dL Normal 0.55-1.[address] [facility] Comment on above: Performed By: #### B MP #### [facility] [address] [address] [address] Donna Cantrell EGFR-AF SURINAMESE >60 Normal >=60 [facility] Comment on above: Performed By: #### B MP #### [facility] [address] [address] [address] Donna Cantrell EGFR-NON AF SURINAMESE >60 Normal >=[address] [facility] Comment on above: Performed By: #### B MP #### [facility] [address] [address] [address] Donna Cantrell Glucose [Mass/Vol] 127 mg/dL Critically high 74-[address] [facility] Comment on above: Performed By: #### B MP #### [facility] [address] [address] [address] Donna Cantrell Potassium [Moles/Vol] 4.2 mmol/L Normal 3.5-5.[address] [facility] Comment on above: Performed By: #### B MP #### [facility] [address] [address] [address] Donna Cantrell Sodium [Moles/Vol] 140 mmol/L Normal 136-[address] [facility] Comment on above: Performed By: #### B MP #### [facility] [address] [place] [address] Dr. Donna Cantrell Urea nitrogen [Mass/Vol] 15.0 mg/dL Normal 7.0-18.0 [facility] Comment on above: Performed By: #### B MP #### [facility] [address] [place] [address] Dr. Donna Cantrell Urea nitrogen/Creatini ne [Mass ratio] 16.5 mg/mg Normal [facility] Comment on above: Performed By: #### B MP #### [facility] [address] [place] [address] Dr. Donna Cantrell PROTIMEon 10-07-2022 INR Coag (PPP) [Relative time] {INR} Normal [facility] Comment on above: Performed By: #### B LTM #### [facility] [address] [place] [address] Dr. Donna Cantrell INR GUIDELINES SEE BELOW Normal [facility] Comment on above: Result Comment: SHIRA RED INR: 2.0 - 3.0 CONDITIONS NOT LISTED BELOW 2.5 - 3.5 FOR PROSTHETIC HEART VALVE REPLACEMENT 2.5 - 3.5 RECURRENT THROMBOSIS Performed By: #### B LTM #### [facility] [address] [place] [address] Dr. Donna Cantrell PT Coag (PPP) [Time] 9.7 s Normal 9.0-11.[address] [facility] Comment on above: Performed By: #### B LTM #### [facility] [address] [place], [place] [address] Dr. Donna Cantrell PTTon 10-07-2022 aPTT Coag (Bld) [Time] 29.6 s Normal 22.3-36.2 [facility] Comment on above: Performed By: #### B LTM #### [facility] [address] [id number] Donna Cantrell SCREENING MAMMOGRAM W/AJ, BILATERAL*on [...] VERY IMPORTANT TO YOUR HEALTH. THE CURRENT SURINAMESE [employer] AND [employer] GUIDELINES RECOMMENDS ANNUAL MAMMOGRAPHY BEGINNING AT AGE 38 THIS FACILITY USES A REMINDER SYSTEM TO ENSURE ALL PATIENTS RECEIVE REMINDER NOTIFICATIONS AT THE APPROPRIATE TIME BASED ON THE RECOMMENDATIONS OF THIS EXAM. Report reported and signed by Eder Barraza on 07/01/[address] [facility] [employer] Repairer XR Shoulder Complete Right*o n 07-01-2022 XR [...] Eder Barraza on 07/02/[address] [facility] [employer] Rep[employer]r XR Spine Lumbar Complete w/F jama AND [...] Eder Barraza on 07/02/[address] [facility] [employer] CNPPearl 12-17-2021 CNPN Telephone (RHEULN) LEXI GARCIA ([id number]) 1970 F Date Time Provider Department 12/17/21 GAYLE WASHINGTON During your visit today, we recorded the following information about you: Gayle Washington MD 12/17/2021 2:54 PM Signed Please Call patient if MyChart note not read to review results/released to My Chart if tests completed at [facility]: Mildly low vitamin D- increase over the [...] PO Daily January 07, 2021 7:15am - lkeil-yn-5-nwv-jtb-uvonngm-as t 1,964-355-02-80 mg cap Take by mouth. - PNV [...] - Estradiol (more content not included)... Normal [facility] BLEEDING TIMEon 12-16-2021 BLEEDING TIME 7.0 min Normal 1.0-8.0 [facility] Comment on above: Result Comment: test done by Selam Almodovar Performed By: #### B [facility] #### [facility] [address] [place] [address] Dr. Donna Cantrell 25(OH)D3 SerPl-mCncon 2021 25-hydroxyvitamin D3 [Mass/Vol] 29.6 ng/mL Low 31.0-80.0 [facility] Comment on above: Order Comment: Speci men Type: BLOOD SPECIMEN Ordering Facility: [facility] Address: [address] [place] [address] Result Comment: Clas sification of 25 [place] Vitamin D status: Deficiency/Insufficiency: < or = 30 ng/ml. Sufficiency/Optimal Levels: 31-80 ng/mL Toxicity: > 100 ng/mL. Test performed by chemiluminescent immunoassay. Performed By: #### 1 989-3 #### [facility] CLIA [id number] [address] [place] [address] [place] CBC panel Auto (Bld)on 12-12 Erythrocyte distribution width (RBC) [Ratio] 14.4 % Normal 11.5-15.0 [facility] Comment on above: Order Comment: Speci men Type: BLOOD SPECIMEN Ordering Facility: [facility] Address: [address] [place] [address] Performed By: #### 5 8410-2 #### [facility] CLIA [id number] [address] [place] [address] [place] Hematocrit (Bld) [Volume fraction] 45.2 % Normal 36.0-46.0 [facility] Comment on above: Order Comment: Speci men Type: BLOOD SPECIMEN Ordering Facility: [facility] Address: [address] [place] [address] Performed By: #### 5 8410-2 #### [facility] CLIA [id number] [address] [place] [address] [place] Hemoglobin (Bld) [Mass/Vol] 14.8 g/dL Normal 11.5-15.5 [facility] Comment on above: Order Comment: Speci men Type: BLOOD SPECIMEN Ordering Facility: [facility] Address: [address] [place] [address] Performed By: #### 5 8410-2 #### [facility] CLIA [id number] [place] MCH (RBC) [Entitic mass] 29.7 pg Normal 26.0-34.0 [facility] Comment on above: Order Comment: Speci men Type: BLOOD SPECIMEN Ordering Facility: [facility] Address: [address] [place] [address] Performed By: #### 5 8410-2 #### [facility] CLIA [id number] [address] [place] [address] [place] MCHC (RBC) [Mass/Vol] 32.7 g/dL Normal 30.5-36.0 [facility] Comment on above: Order Comment: Speci men Type: BLOOD SPECIMEN Ordering Facility: [facility] Address: [address] [place] [address] Performed By: #### 5 8410-2 #### [facility] CLIA [id number] [address] [place] [address] [place] MCV (RBC) [Entitic vol] 90.8 fL Normal 80.0-100.0 [facility] Comment on above: Order Comment: Speci men Type: BLOOD SPECIMEN Ordering Facility: [facility] Address: [address] [place] [address] Performed By: #### 5 8410-2 #### [facility] CLIA [id number] [address] [place] [address] [place] Nucleated RBC (Bld) [#/Vol] 10*3/uL Normal <0.01 [facility] Comment on above: Order Comment: Speci men Type: BLOOD SPECIMEN Ordering Facility: [facility] Address: [address] [place], [place] [id number] Performed By: #### 5 8410-2 #### [facility] CLIA [id number] [address] [place] [address] [place] Platelet mean volume (Bld) [Entitic vol] 10.7 fL Normal 9.0-12.7 [facility] Comment on above: Order Comment: Speci men Type: BLOOD SPECIMEN Ordering Facility: [facility] Address: [address] [place] [address] Performed By: #### 5 8410-2 #### [facility] CLIA [id number] [address] [place] [address] [place] Platelets (Bld) [#/Vol] 259 10*3/uL Normal 150-400 [facility] Comment on above: Order Comment: Speci men Type: BLOOD SPECIMEN Ordering Facility: [facility] Address: [address] [place] [address] Performed By: #### 5 8410-2 #### [facility] CLIA [id number] [address] [place] [address] [place] RBC (Bld) [#/Vol] 4.98 10*6/uL Normal 3.90-5.20 [facility] Comment on above: Order Comment: Speci men Type: BLOOD SPECIMEN Ordering Facility: [facility] Address: [address] [place] [address] Performed By: #### 5 8410-2 #### [facility] CLIA [id number] [address] [place] [address] [place] WBC (Bld) [#/Vol] 9.25 10*3/uL Normal 3.70-11.00 [facility] Comment on above: Order Comment: Speci men Type: BLOOD SPECIMEN Ordering Facility: [facility] Address: [address] [place] [address] Performed By: #### 5 8410-2 #### [facility] CLIA [id number] [address] [place] [address] [place] CNOVon 12-12-2021 [facility] Office Visit (AMARJIT ) LEXI GARCIA ([id number]) 1970 F Date Time Provider Department 12/12/21 [...] flat ground knees give out. COVID vaccine [employer] 06/26/21. Feels safe at home. Has enough [...] Urine or urethritis: no Renal/liver disease: no COMPLAINT SPECIALIST/PNS/sz/cva/cancer disease: no HEME-Cytopenias/LAD/Clots: no Fevers: no Fatigue: [...] ago stable (more content not included)... Normal [facility] CRP SerPl-mCncon 12-12-2021 CRP [Mass/Vol] 1.4 mg/dL High <0.9 [facility] Comment on above: Order Comment: Speci men Type: BLOOD SPECIMEN Ordering Facility: [facility] Address: [address] [place] [address] Performed By: #### 1 988-5, 2-9, 20568-4, 3084-1 #### [facility] CLIA [id number] [address] [place] [address] [facility] Comprehensive metabolic 2000 panelon 12-12-2021 Albumin [Mass/Vol] 4.2 g/dL Normal 3.9-4.9 [facility] Comment on above: Order Comment: Speci men Type: BLOOD SPECIMEN Ordering Facility: [facility] Address: [address] [place] [address] Performed By: #### 1 988-5, 2132-9, 82780-6, 3084-1 #### [facility] CLIA [id number] [address] [place] [address] [place] ALP [Catalytic activity/Vol] 140 U/L High 34-123 [facility] Comment on above: Order Comment: Speci men Type: BLOOD SPECIMEN Ordering Facility: [facility] Address: [address] [place] [address] Performed By: #### 1 988-5, 2131-9, 52360-8, 4-1 #### [facility] CLIA [id number] [address] [place] [address] [place] ALT [Catalytic activity/Vol] 23 U/L Normal 7-38 [facility] Comment on above: Order Comment: Speci men Type: BLOOD SPECIMEN Ordering Facility: [facility] Address: [address] [place] [address] Performed By: #### 1 988-5, 2131-9, 66927-3, 3083-1 #### [facility] CLIA [id number] [address] [place] [address] [place] Anion gap [Moles/Vol] 10 mmol/L Normal 9-18 [facility] Comment on above: Order Comment: Speci men Type: BLOOD SPECIMEN Ordering Facility: [facility] Address: [address] [place] [address] Performed By: #### 1 988-5, 2131-9, 21776-0, 3083-1 #### [facility] CLIA [id number] [address] [place] [address] [place] AST [Catalytic activity/Vol] 24 U/L Normal 13-35 [facility] Comment on above: Order Comment: Speci men Type: BLOOD SPECIMEN Ordering Facility: [facility] Address: [address] [place] [address] Performed By: #### 1 988-5, 2131-9, 15079-5, 3084-1 #### [facility] CLIA [id number] [address] [place] [address] [place] Bilirubin [Mass/Vol] mg/dL Low 0.2-1.3 [facility] Comment on above: Order Comment: Speci men Type: BLOOD SPECIMEN Ordering Facility: [facility] Address: [address] [place] [address] Performed By: #### 1 988-5, 2131-9, 85583-6, 3084-1 #### [facility] CLIA [id number] [address] [place] [address] [place] Calcium [Mass/Vol] 9.6 mg/dL Normal 8.5-10.2 [facility] Comment on above: Order Comment: Speci men Type: BLOOD SPECIMEN Ordering Facility: [facility] Address: [address] [place] [address] Performed By: #### 1 988-5, 2131-9, 03667-6, 3083-1 #### [facility] CLIA [id number] [address] [place] [address] [place] Chloride [Moles/Vol] 104 mmol/L Normal 97-105 [facility] Comment on above: Order Comment: Speci men Type: BLOOD SPECIMEN Ordering Facility: [facility] Address: [address] [place], [place] [phone] Performed By: #### 1 988-5, 2131-9, 70732-0, 3083-1 #### [facility] CLIA [id number] [address] [place] [address] [place] CO2 [Moles/Vol] 24 mmol/L Normal 22-30 [facility] Comment on above: Order Comment: Speci men Type: BLOOD SPECIMEN Ordering Facility: [facility] Address: [address] [place] [address] Performed By: #### 1 988-5, 2131-9, 97026-9, 3084-1 #### [facility] CLIA [id number] [address] [place] [address] [place] Creatinine [Mass/Vol] 0.86 mg/dL Normal 0.58-0.96 [facility] Comment on above: Order Comment: Renetta weber Type: BLOOD SPECIMEN Ordering Facility: [facility] Address: [address] [place], [place] [address] Performed By: #### 1 988-5, 2-9, 28745-0, 3084-1 #### [facility] CLIA [id number] [address] [place] [address] [place] ESTIMATED GLOMERULAR FILTRATION RATE 81 mL/min/1.73m??? Normal >=60 [facility] Comment on above: Order Comment: Renetta weber Type: BLOOD SPECIMEN Ordering Facility: [facility] Address: [address] [place], [place] [address] Result Comment: Doris mated Glomerular Filtration Rate [...] GFR. Performed By: #### 1 988-5, 9, 46465-1, 3083-1 #### [facility] CLIA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 [facility] [address] [place] [address] Chloride [Moles/Vol] 98 mmol/L Normal 95-107 [facility] Comment on above: Performed By: #### B MP #### [facility] [address] [place] [address] CO2 [Moles/Vol] 27 mmol/L Normal 20-31 [facility] Comment on above: Performed By: #### B MP #### [facility] [address] [place] [address] Creatinine [Mass/Vol] 0.82 mg/dL Normal 0.50-0.90 [facility] Comment on above: Performed By: #### B MP #### [facility] [address] [place] [address] GFR/1.73 sq M predicted among blacks MDRD (S/P/Bld) [Vol rate/Area] mL/min/{1.73_m2} Normal >60 [facility] Comment on above: Result Comment: >60 mL/min/1.73m2 EGFR, calc. for ages 18 and older using the MDRD formula (not corrected for weight), is valid for stable renal function. Performed By: #### B MP #### [facility] [address] [place] [address] GFR/1.73 sq M.predicted MDRD (S/P/Bld) [Vol rate/Area] mL/min/{1.73_m2} Normal >60 [facility] Comment on above: Result Comment: >60 mL/min/1.73m2 EGFR, calc. for ages 18 and older using the MDRD formula (not corrected for weight), is valid for stable renal function. Performed By: #### B MP #### [facility] [address] [place] [address] Glucose [Mass/Vol] 84 mg/dL Normal 70-99 [facility] Comment on above: Performed By: #### B MP #### [facility] [address] [place] [address] Potassium [Moles/Vol] 4.6 mmol/L Normal 3.4-4.9 [facility] Comment on above: Performed By: #### B MP #### [facility] [address] [place] [address] Sodium [Moles/Vol] 137 mmol/L Normal 135-144 [facility] Comment on above: Performed By: #### B MP #### [facility] [address] [place] [address] Urea nitrogen [Mass/Vol] 31 mg/dL Critically high 6-20 [facility] Comment on above: Performed By: #### B MP #### [facility] [address] [place] [address] CBC With Platelet No Differe ntialon 05-03-2020 Erythrocyte distribution width (RBC) [Ratio] 14.3 % Normal 11.5-14.5 [facility] Comment on above: Performed By: #### C BCND #### [facility] [address] [place] [address] Hematocrit (Bld) [Volume fraction] 41.3 % Normal 37.0-47.0 [facility] Comment on above: Performed By: #### C BCND #### [facility] [address] [place] [address] Hemoglobin (Bld) [Mass/Vol] 13.6 g/dL Normal 12.0-16.0 [facility] Comment on above: Performed By: #### C BCND #### [facility] [address] [place] [address] MCH (RBC) [Entitic mass] 30.7 pg Normal 27.0-31.3 [facility] Comment on above: Performed By: #### C BCND #### [facility] [address] [place] [address] MCHC (RBC) [Mass/Vol] 33.0 % Normal 33.0-37.0 [facility] Comment on above: Performed By: #### C BCND #### [facility] [address] [place] [address] MCV (RBC) [Entitic vol] 92.9 fL Normal 82.0-100.0 [facility] Comment on above: Performed By: #### C BCND #### [facility] [address] [place] [address] Platelets (Bld) [#/Vol] 241 10*3/uL Normal 130-400 [facility] Comment on above: Performed By: #### C BCND #### [facility] [address] [place] [address] RBC (Bld) [#/Vol] 4.44 10*6/uL Normal 4.20-5.40 [facility] Comment on above: Performed By: #### C BCND #### [facility] [address] [place] [address] WBC (Bld) [#/Vol] 11.0 10*3/uL Critically high 4.8-10.8 [facility] Comment on above: Performed By: #### C BCND #### [facility] [address] [place] [address] COVID-19, NAAon 05-03-2020 Source Swab Anterior nares Normal [facility] Comment on above: Performed By: #### I RCOV ####[facility] [place] [phone] Partial Thromboplastin Timeo n 05-03-2020 aPTT Coag (Bld) [Time] 31.3 s Normal 24.4-36.8 [facility] Comment on above: Performed By: #### P TT #### [facility] [address] [place] [address] Prothrombin Timeon 0 INR Coag (PPP) [Relative time] 0.9 {INR} Normal [facility] Comment on above: Performed By: #### P T #### [facility] [address] [place] [address] PT Coag (PPP) [Time] 11.9 s Low 12.3-14.9 [facility] Comment on above: Performed By: #### P T #### [facility] [address] [place] [address] Type and Screen Capture 3 sc rn cellon 05-03-2020 Type and Screen Capture 3 scrn cell PATIENT: JOSHUA Doss LOC: [facility] GABI# : [id number] : 1970 SEX: F ORDERED BY: STEPHANIE Harrison ORDERED : 05/03/2020 14:14 COLLECTED: 05/03/2020 14:14 ORDER : [id number] RECEIVED : 05/03/2020 19:43 TEST NAME RESULT UNITS RANGES ABN FL ST ABORH Capture O POS F Antibody 3 Cell Scrn Captu NEG F Normal [facility] Comment on above: Performed By: #### T S3C #### [facility] [address] [place] [id number] Established Visit (Orthopaed ic Surgery)on 04-26-2020 Established [...] biceps. No pain with resisted elbow flexion. Granite Installer strength 5/5 Elbow flexion 5/5. Shoulder abduction [...] Chiara Espinosa PA-C Department of Orthopaedic Surgery [facility] Dictation performed with the use of voice recognition software. Syntax and grammatical errors may exist. Active Problems Problems Shoulder pain (719.41) (M25.519) Signatures Electronically signed by : Chiara Espinosa PA-C; Apr 26 2020 3:56PM EST (Author) Normal [facility] Initial Visit (Orthopaedic S urgery)on 04-17-2020 Initial Visit (Orthopaedic Surgery) Diagnoses/Problems Assessed Shoulder pain (719.41) (M25.519) Patient Discussion/Summary Patient has right shoulder pain of uncertain origin. Exam today is suggestive of subacromial origin of pain. MRI scan shows tendinopathy but not an obvious tear. I recommended having her MRI scans evaluated by the musculoskeletal radiologist at [facility] I will call the patient back [...] her light touch sensation is grossly intact. Granite Installer strength is 5/5 elbow flexion 5/5 shoulder [...] 97.52 kg Gayle Washington MD Work Phone: [facility] 12-12-2021 10:43-0400 Diastolic blood pressure 87 mm[Hg] Gayle Washington MD Work Phone: [facility] 12-12-2021 10:43-0400 Heart rate 88 /min Gayle Washington MD Work Phone: [facility] 12-12-2021 10:43-0400 Systolic blood pressure 125 mm[Hg] Gayle Washington MD Work Phone: [facility] 10-14-2021 10:30-0400 Diastolic blood pressure 80 mm[Hg] Emmett Brunner Other [employer] Other 10-14-2021 10:30-0400 SaO2% (BldA) [Mass fraction] 98 % Emmett Brunner Other [employer] Other 10-14-2021 10:30-0400 Systolic blood pressure 130 mm[Hg] Emmett Brunner Other [employer] Other 07-01-2021 15:30-0500 Body weight 94.62 kg Letty Wesley Other [employer] Other 07-01-2021 15:30-0500 Diastolic blood pressure 78 mm[Hg] Letty Wesley Other [employer] Other 07-01-2021 15:30-0500 Respiratory rate 18 /min Letty Wesley Other [employer] Other 07-01-2021 15:30-0500 SaO2% (BldA) [Mass fraction] 98 % Letty Wesley Other [employer] Other 07-01-2021 15:30-0500 Systolic blood pressure 118 mm[Hg] Lettyra Olson Other [employer] Other 06-18-2021 15:45-0500 Diastolic blood pressure 90 mm[Hg] Emmett Brunner Other [employer] Other 06-18-2021 15:45-0500 SaO2% (BldA) [Mass fraction] 97 % Emmett Brunner Other [employer] Other 06-18-2021 15:45-0500 Systolic blood pressure 122 mm[Hg] Emmett Brunner Other [employer] Other 05-15-2021 17:30-0500 Body weight 92.53 kg Emmett Brunner Other [employer] Other 05-15-2021 17:30-0500 Diastolic blood pressure 80 mm[Hg] Emmett Kannan Other [employer] Other 05-15-2021 17:30-0500 Systolic blood pressure 130 mm[Hg] Emmett Kannan Other [employer] Other 04-02-2021 14:30-0400 Body weight 92.63 kg Emmett Brunner Other [employer] Other 04-02-2021 14:30-0400 Diastolic blood pressure 88 mm[Hg] Emmett Kannan Other [employer] Other 04-02-2021 14:30-0400 SaO2% (BldA) [Mass fraction] 98 % Emmett Kannan Other [employer] Other 04-02-2021 14:30-0400 Systolic blood pressure 140 mm[Hg] Emmett Burnner Other [employer] Other Encounters Encounter Date Encounter Type Care Provider Facility Start: 02-07-2024 End: 02-07-2024 ambulatory Rosibel Cotton MD Facility: [facility] Start: 02-03-2024 End: 02-03-2024 ambulatory NANCY LUDWIG [facility] Start: 01-25-2024 End: 01-25-2024 ambulatory [facility] Start: 01-24-2024 End: 01-24-2024 ambulatory Rosibel Cotton MD Facility: [facility] Start: 01-12-2024 End: 01-12-2024 ambulatory NICOLE TELLES [facility] Start: 01-12-2024 Encounter for other preprocedural examination [facility] Start: 12-20-2023 End: 12-20-2023 ambulatory Rosibel Cotton MD Facility: [facility] Start: 11-02-2023 End: 11-02-2023 ambulatory TIM [facility] Start: 10-29-2023 End: 10-29-2023 ambulatory IZABEL LARA Not Available Start: 10-28-2023 End: 10-28-2023 ambulatory CLIFFORD VANN Not Available Start: 10-26-2023 End: 10-26-2023 ambulatory [facility] Start: 10-25-2023 End: 10-25-2023 ambulatory Rosibel Cotton MD [facility] Start: 09-20-2023 End: 09-20-2023 ambulatory Rosibel Cotton MD Facility: [facility] Start: 09-13-2023 End: 09-13-2023 Subsequent hospital visit by physician [facility] Comment on above: Flatulence, eructati on and gas pain Start: 09-13-2023 End: 09-13-2023 ambulatory NICOLE TELLES [facility] Start: 09-13-2023 Encounter for other preprocedural examination NICOLE R [facility] Start: 07-26-2023 End: 07-26-2023 ambulatory KIMBERLEY GIBBONS Not Available Start: 06-22-2023 End: 06-22-2023 ambulatory [facility] Start: 06-18-2023 End: 06-18-2023 ambulatory KIMBERLEY GIBBONS Not Available Start: 05-11-2023 End: 05-12-2023 ambulatory JESSIE REID Not Available Start: 04-27-2023 End: 04-27-2023 ambulatory [facility] Start: 04-07-2023 ambulatory Gayle Washington MD Work Phone: Rheumatology Comment on above: Fax info Start: 02-10-2023 End: 02-10-2023 ambulatory ELODIA [facility] Start: 10-16-2022 Encounter for preprocedural cardiovascular examination DR ULISES TIM [facility] Start: 10-16-2022 Encounter for preprocedural laboratory examination DR ULISES TIM [facility] Start: 10-13-2022 End: 10-13-2022 ambulatory [...] Start: 12-12-2021 End: 12-13-2021 ambulatory KIMBERLEY GIBBONS [facility] Other Start: 12-12-2021 End: 12-12-2021 Patient encounter [...] 10-29-2021 Chart Update Cristobal miller Work Phone: [id number] Work Phone: Start: 10-14-2021 End: 10-14-2021 ambulatory Emmett Brunner Other [facility] Other Start: 10-14-2021 Patient encounter procedure Emmett Brunner [facility] Start: 09-23-2021 End: 09-23-2021 ambulatory Emmett Brunner Other [facility] Other Start: 09-23-2021 Telephone encounter Emmett Brunner [facility] Start: 07-01-2021 End: 07-01-2021 ambulatory Letty Wesley Other [facility] Other Start: 07-01-2021 Office outpatient vi sit 25 minutes Letty Wesley [facility] Start: 06-26-2021 (Procedure) Short Emmett Brunner [facility] Start: 06-26-2021 End: 06-26-2021 ambulatory Emmett Brunner Other [facility] Other Start: 06-18-2021 End: 06-18-2021 ambulatory Emmett Brunner Other [facility] Other Start: 06-18-2021 Office outpatient vi sit 25 minutes Emmett Knanan [facility] Start: 06-18-2021 Telephone encounter Emmett Brunner [facility] Start: 06-04-2021 End: 06-04-2021 Subsequent hospital visit by physician Christina [facility] Comment on above: Chronic hip pain, bi lateral [M25.551, M25.552, G89.29] Start: 05-21-2021 (Procedure) Short Emmett Brunner [facility] Start: 05-21-2021 End: 05-21-2021 ambulatory Emmettarmani Brunner Other [facility] Other Start: 05-15-2021 End: 05-15-2021 ambulatory Emmett Brunner Other [facility] Other Start: 05-15-2021 Office outpatient vi sit 25 minutes Emmett Kannan [facility] Start: 04-30-2021 (Procedure) Short Emmett Brunner [facility] Start: 04-16-2021 (Procedure) Short Emmett Brunner [facility] Start: 04-02-2021 Office outpatient vi sit 25 minutes Emmett Brunnre [facility] Start: 02-21-2021 Office outpatient vi sit 15 minutes Cristobal F Genoveva Work Phone: [id number] Work Phone: Start: 06-25-2020 End: 06-27-2020 Evaluation and management of inpatient FEMI L[facility]pez [facility] Start: 06-25-2020 End: 06-28-2020 Patient encounter procedure [facility]RISTOBAL [facility] Start: 06-18-2020 End: 06-23-2020 Patient encounter procedure CRISTOBAL F [facility] Start: 05-09-2020 End: 05-09-2020 Patient encounter procedure [facility] Procedures Date Procedure Procedure Detail Performing Clinician Start: 09-13-2023 Assay of gammaglobul in iga igd igg igm each Nicole Telles [employer]ITION WORKER - [employer]BER Work Phone: Start: 06-04-2021 Radex hips bilateral with pelvis minimum 5 views Gayle Washington MD Work Phone: Start: 06-17-2020 Mammography Gayle jeffries MD Work Phone: Start: 06-09-2018 Lipid 1996 panel - S willian or Plasma Gayle Washington MD Work Phone: Plan of Treatment Date Care Activity Detail Author Start: 12-12-2024 DIABETES SCREEN DIABETES SCREEN [facility] Start: 12-12-2024 Diabetes Screening Diabetes Screening [facility] Start: 07-01-2024 Screening for malignant neoplasm of breast Breast cancer screen [facility] Start: 02-03-2024 End: 02-03-2024 Admission to same day surgery center 02/03/2024 8:45 AM EDT - 02/03/2024 9:05 AM EDT Surgery [facility] OR [address] [place], [place] [id number] Nancy Ludwig MD [address] [place] [address] ESOPHAGOGASTRODUODENOSCOPY [facility] Comment on above: ESOPHAGOGASTRODUODENOSCOPY Start: 02-03-2024 End: 02-03-2024 Esophagogastroduodenoscopy transoral diagnostic ESOPHAGOGASTRODUODENOSCOPY Chronic GERD 02/03/2024 8:45 AM EDT [facility] Start: 02-03-2024 Subsequent hospital visit by physician 02/03/2024 8:45 AM EDT Hospital Encounter [facility] OR [address] [place] [address] Nancy Ludwig MD [address] [place] [address] [facility] Start: 07-05-2023 Annual Wellness Visit (Medicare Advantage) Annual Wellness Visit (Medicare Advantage) [facility] Start: 06-09-2023 Lipid 1996 panel - Serum or Plasma Lipid Screening [facility] Start: 06-09-2023 LIPID SCREEN LIPID SCREEN [facility] Start: 03-05-2023 COVID-19 Vaccine (2022- season) COVID-19 Vaccine ( season) [facility] Start: 03-05-2023 Influenza vaccination [facility] Start: 02-02-2023 Influenza vaccination Flu vaccine (#1) [facility] Start: 07-05-2022 DEPRESSION ASSESSMENT DEPRESSION ASSESSMENT [facility] Start: 03-19-2022 End: 12-17-2022 25-hydroxyvitamin D3 [Mass/volume] in Serum or Plasma VITAMIN D 25 HYDROXY Lab Routine Vitamin D deficiency Expected: 03/19/2022 (Approximate), Expires: 12/17/2022 [facility] Work Phone: Comment on above: Expected: 03/19/2022 (Approximate), Expi res: 12/17/2022 Start: 03-05-2022 Influenza vaccination [facility] Start: 08-21-2021 COVID-19 VACCINE (2 - Booster for Barbara series) COVID-19 VACCINE (2 - Booster for Barbara series) [facility] Start: 07-05-2021 DEPRESSION ASSESSMENT DEPRESSION ASSESSMENT [facility] Start: 06-17-2021 Mammography [facility] Start: 2018 Shingles vaccine (1 of 2) Shingles vaccine (1 of 2) [facility] Start: 2018 SHINGRIX VACCINE (1 of 2) SHINGRIX VACCINE (1 of 2) [facility] Start: 2013 COLOGUARD (FIT-DNA) COLOGUARD (FIT-DNA) [facility] Start: 2013 Colonoscopy COLONOSCOPY [facility] Start: 2013 COLORECTAL CANCER SCREENING COLORECTAL CANCER SCREENING [facility] Start: [address] COLONOGRAPHY [facility] Start: 2013 FECAL OCCULT BLOOD FECAL OCCULT BLOOD [facility] Start: 2013 Screening for malignant neoplasm of colon [facility] Start: 2013 SIGMOIDOSCOPY SIGMOIDOSCOPY [facility] Start: 1998 HPV TESTING HPV TESTING [facility] Start: 1989 PAP TESTING PAP TESTING [facility] Start: 1987 DTaP/Tdap/Td vaccine (1 - Tdap) DTaP/Tdap/Td vaccine (1 - Tdap) [facility] Start: 1987 Urine microalbumin profile [facility] Start: 1986 Hepatitis C screening Hepatitis C screen [facility] Start: 1986 HIV SCREENING HIV SCREENING [facility] Start: 1983 HIV screening HIV screen [facility] Start: 1980 Adult depression screening assessment DEPRESSION SCREENING [facility] Start: 1980 Depression Screen Depression Screen [facility] Start: 1978 Lipid panel Lipids [facility] Start: 1974 PNEUMOCOCCAL (1 - PCV) PNEUMOCOCCAL (1 - PCV) [facility] Start: 1974 Pneumococcal 0-64 years Vaccine (1 - PCV) Pneumococcal 0-64 years Vaccine (1 - PCV) [facility] Start: 1974 Pneumococcal vaccination Pneumococcal Vaccine (1 - PCV) [facility] Start: 1968 HEPATITIS B (1 of 3 - 3-dose series) HEPATITIS B (1 of 3 - 3-dose series) [facility] Start: 1968 Hepatitis B Vaccine (1 of 3 - 3-dose series) Hepatitis B Vaccine (1 of 3 - 3-dose series) [facility] Celiac Disease Panel Celiac Dise ase Panel Lab Routine Flatulence, eructation and gas pain 09/13/2023 4:20 PM EDT [facility] End: 09-13-2023 H. pylori antigen [facility] Comment on above: Once for 1 Occurrences starting 09/13/19 24 until 09/13/2023 End: 09-13-2023 H. Pylori Antigen, Stool H. Pylori Antigen, Stool Lab Routine Flatulence, eructation and gas pain 1 Occurrences starting 09/13/2023 until 09/13/2023 [employer] Work Phone: Comment on above: 1 Occurrences starting 09/13/2023 until 09/13/2023 Immunizations Immunization Date Immunization Notes Care Provider Sabina brumfield 04-06-2019 influenza, injectabl e, quadrivalent, preservative free Cristobal Tomas Work Phone: [id number] Work Phone: 04-06-2019 influenza virus vaccine, unspecified formulation Gayle Washington MD Work Phone: [facility] 05-15-2016 seasonal influenza, intradermal, preservative free Cristobal Tomas Work Phone: [facility] [id number] Payers Date Payer Category Payer Unknown 2021 Unknown CLAYTON ARNOLD [place] X [id number] 2021-Present [phone] [address] [address] [place] [address] HMO [id number] 2020 Private Health Insurance [facility] [employer] [id number] 2020-2021 [address] [address] [place] [address] PPO [id number] 2018 Unknown [id number] 2017 Unknown [id number] 1968 Unknown [id number] 2.16.840.1.005205.3.579.2 .182 1968 Unknown [id number] 2.16.840.1.159752.3.579.2 .182 1968 Unknown [id number] 2.16.840.1.897153.3.579.2 .182 1968 Unknown [id number] 2.16.840.1.435104.3.579.2 .182 1968 Unknown [id number] 2.16.840.1.800659.3.579.2 .182 1968 Unknown [id number] 2.16.840.1.834162.3.579.2 .593 1968 Unknown [id number] 2.16.840.1.642304.3.579.2 .593 1968 Unknown [id number] 2.16.840.1.836707.3.579.2 .593 1968 Unknown [id number] 2.16.840.1.348693.3.579.2 .593 1968 Unknown [id number] 2.16.840.1.875046.3.579.2 .593 1968 Unknown [id number] 2.16.840.1.627727.3.579.2 .593 1968 Unknown [id number] 2.16.840.1.022664.3.579.2 .593 1968 Unknown [id number] 2.16.840.1.360963.3.579.2 .593 1968 Unknown [id number] 2.16.840.1.991373.3.579.2 .593 1968 Unknown [id number] 2.16.840.1.197193.3.579.2 .593 1968 Unknown [id number] 2.16.840.1.182959.3.579.2 .593 1968 Unknown [id number] 2.16.840.1.359220.3.579.2 .1259 1968 Unknown [id number] 2.16.840.1.035446.3.579.2 .1259 1968 Unknown [id number] 2.16.840.1.207953.3.579.2 .1259 1968 Unknown [id number] 2.16.840.1.034503.3.579.2 .1259 1968 Unknown [id number] 2.16.840.1.711385.3.579.2 .9 1968 Unknown [id number] 2.16.840.1.705881.3.579.2 .9 1968 Unknown [id number] 2.16.840.1.331854.3.579.2 .9 1968 Unknown [id number] 2.16.840.1.891995.3.579.2 .173 1968 Unknown [id number] 2.16.840.1.421087.3.579.2 .173 1968 Unknown [id number] 2.16.840.1.246407.3.579.2 .173 1968 Unknown [id number] 2.16.840.1.091022.3.579.2 .173 1968 Unknown [id number] 2.16.840.1.709965.3.579.2 .196 1968 Unknown [id number] 2.16.840.1.717759.3.579.2 .196 1968 Unknown [id number] 2.16.840.1.816746.3.579.2 .196 1968 Unknown [id number] 2.16.840.1.461145.3.579.2 .196 1968 Unknown [id number] 2.16.840.1.129093.3.579.2 .196 Social History Date Type Detail Facility Start: 06-04-2021 End: 09-08-2023 Tobacco smoking status NHIS Smokes tobacco daily [facility] History of tobacco use Cigarette Smoker [facility] Start: 05-03-2020 End: 06-04-2021 Cigarettes smoked current (pack per day) - Reported 1 [facility] Start: 06-04-2021 End: 09-08-2023 Tobacco use and exposure Smokeless tobacco non-user [facility] Start: 12-12-2021 End: 09-08-2023 Alcohol intake Current drinker of alcohol (finding) [facility] Start: 06-04-2021 History SDOH Alcohol Comment rarely. [facility] Start: 1970 Sex Assigned At Not on file [facility] Start: 11-29-2021 End: 12-09-2021 Exposure to SARS-CoV-2 (event) Unable to assess [facility] Start: 05-03-2020 End: 06-05-2021 Sex Assigned At [facility] Start: 05-05-2021 End: 06-04-2021 Exposure to SARS-CoV-2 (event) Not sure [facility] National Score (1-100), lower number is lower risk 95 [facility] (I/We) worried whether (my/our) food would run out before (I/we) got money to buy more. Never true [id number] Start: 09-08-2023 Tobacco Comment intermittently since 15 [facility] [employer] Start: 05-03-2020 Alcohol Comment hardly ever [facility] Medical Equipment Procedure Code Equipment Code Equipment Original Text Equipment Identifier Dates Impl Alena Spine R michael Ti35 Mm 55 Mm [id number] Start: 06-25-2020 Graft Spnl W11xh 6he79da Corticocancellous Lord Triad - [id number] Start: 05-09-2020 Plate Spnl L28mm Antr Cerv 1 Lev Translational [place] Acp [id number] Start: 05-09-2020 Screw Spnl L13mm Dia4mm Ant Cerv [facility] Ang Compr [place] Acp [id number] Start: 05-09-2020 Connector Spnl C rss Lo Prof Adj Reline-O 5.5 X 45-65 Mm [id number] Start: 06-25-2020 Screw Spnl Dia5. 5mm Opn Tulip Roselyn Reline [id number] Start: 06-25-2020 Graft Bne Sub 30 cc 1.7-10mm Canc Chip Morselized Frz Dry - [id number] Start: 06-25-2020 Graft Bne Sub 5m l Mtrx Cellular Osteocel + - [id number] Start: 06-25-2020 Spacer Spnl L W1 [id number] 4deg Post Lum Intbdy Fus Lord [id number] [...] to decrease Celebrex to 200 BID [facility] Follow-up Patient Visit Subjective [...] surgery with numbness in hands and decreased temple meat cutter strength, R>L shoulders, neck (better since ablation). AM stiffness lasts 1-2 hrs (was 2-3 hr prior),, on average daily. Denies joint erythema, swelling, warmth. Comprehensive History: Patient Active Problem List Diagnosis Chest pain, atypical Benign essential HTN HOFFMAN (dyspnea on exertion) Fibromyalgia Elevated d-dimer Mixed hyperlipidemia GERD without esophagitis Orthopnea Sleep disturbances Abnormal nuclear stress test Unstable angina (CMS/HCC) Coronary artery disease involving [place] coronary artery of [place] heart without angina pectoris Degenerative joint disease [...] 80 mg ta (more content not included)... [facility] 11-02-2023 Note ecg [facility] 11-02-2023 Note Cardiovascular Medic [facility] SUBJECTIVE Chief Complaint Patient presents with [...] Unstable angina (CMS/HCC) Coronary artery disease involving [place] coronary artery of [place] heart without angina pectoris Degenerative joint disease [...] , Rfl: o (more content not included)... [facility] 10-26-2023 Note Attestation signed by Jessie Reid [...] decrease Celebrex due to worsening heartburn [facility] Follow-up Patient Visit Subjective [...] surgery with numbness in hands and decreased temple meat cutter strength, R>L shoulders, neck. AM stiffness lasts 1-2 hrs (was 2-3 hr prior), on average daily. Denies joint erythema, swelling, warmth. Comprehensive History: Patient Active Problem List Diagnosis Chest pain, atypical Benign essential HTN HOFFMAN (dyspnea on exertion) Fibromyalgia Elevated d-dimer Mixed hyperlipidemia GERD without esophagitis Orthopnea Sleep disturbances Abnormal nuclear stress test Unstable angina ([facility]) Coronary artery disease involving [place] coronary artery of [place] heart without angina pectoris Degenerative joint disease [...] Chronic pain disorder Depression Factor V Leiden ([facility]) Fibromyalgia, primary GERD (gastroesophageal reflux disease) [...] 400 mg capsul (more content not included)... [facility] 10-26-2023 Note PT STATE SHE HAS BEE N DIZZY RECENTLY PT STATES TAKES MEDS TO MANAGE DEPRESSION SX [facility] 06-22-2023 Note Attestation signed by Jessie Reid [...] sclerosis noted on fist [facility] joints [facility] Follow-up Patient Visit Subjective [...] Unstable angina (CMS/HCC) Coronary artery disease involving [place] coronary artery of [place] heart without angina pectoris Degenerative joint disease [...] the morning. aspirin (more content not included)... [facility] 04-27-2023 Note Attestation signed by Jessie Reid [...] impairment, GI ulcer/bleed, CV risk, etc. 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 She formerly saw [facility] Rheumatology with last visit in December 2021 per available records. 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 Reports sometimes she has swelling, redness, [...] Patient Active Proble (more content not included)... [facility] 04-07-2023 Note Reviewed recent lipi d profile [...] draw Elodia Oscar NP Division of Cardiology, [facility]- [phone] Pager- [phone] Email- [email or web address] 04-07-2023 Miscellaneous Notes Notify patient medication [...] faxed with confirmation. documented in this encounter [facility] 02-10-2023 Note Coronary artery dise ase is stable Continue GDMT- ASA, lipitor, toprol continue risk factor modifications- heart healthy diet, regular exercise as tolerated and continue all medications. Pt to have repeat lipid and lft levels drawn soon [facility] 02-10-2023 Note D/W pt that may need to see GI for further evaluation for other etiology of her chest pain and may be r/t GERD [facility] 02-10-2023 Note Currently stable [facility] 02-10-2023 Note Currently denied chest pain [facility] 02-10-2023 Note Continue lipitor 80 mg, lipid level well controlled currently [facility] 02-10-2023 Note Hypertension is stab le and well controlled at home Continue norvasc, toprol [facility] 02-10-2023 Note UTP CARDIOLOGY PROGR ESS NOTE [...] stenosis. LCX - (more content not included)... [facility] 02-10-2023 Note Review of Systems All other systems reviewed and are negative. [facility] 10-13-2022 Note OPERATIVE NOTE OPERATION DATE: 10/13/2022 [...] left cheek was prepped with Betadine. A [place] tip Bovie was then used to make [...] the recovery room in good condition. [facility] 10-07-2022 Note EXAM: XR CHEST 2 V HISTORY: Pre-surgery evaluation COMPARISON: None. TECHNIQUE: PA and lateral views of the chest. FINDINGS: The cardiomediastinal silhouette is normal. No focal consolidation is identified. There is no pneumothorax. No pleural effusion is noted. The osseous structures are intact. IMPRESSION: No acute cardiopulmonary process. Electronically authenticated by: JOSIAH LE Date: 2022-10-07 11:27 [facility] 07-23-2022 Note CONSULTATION CONSULTATION DATE: [...] Patient does agree with this plan. [facility] 06-11-2022 Note CONSULTATION CONSULTATION DATE: [...] q.h.s. 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 [facility] 05-18-2022 Miscellaneous Notes Patient's request for medication is as follows: Requested Prescriptions Signed Prescriptions Disp Refills celecoxib (CELEBREX) 200 mg capsule 180 capsule 3 Sig: Take 1 capsule by mouth twice daily. Prescription(s) as above. Please process accordingly. Gayle Washington MD [facility] [employer] message sent to patient reminding her to [...] Lab Orders Expected Expires Ordered HLA-B27 PCR [[id number]] 06/19/21 06/18/22 06/18/21 Auth. provider: Gayle Washington MD Assoc. diagnoses: Elevated sedimentation rate VITAMIN D 25 HYDROXY [SQVITD] 03/19/22 12/17/22 12/17/21 Auth. provider: Gayle Washington MD Assoc. diagnoses: Vitamin D deficiency documented in this encounter [facility] 04-16-2022 Note CONSULTATION PROCEDURE DATE: [...] the clinic in three months' time. [facility] 04-09-2022 Note CONSULTATION CONSULTATION DATE: [...] to the clinic for her injection. [facility] 01-01-2022 Note CONSULTATION CONSULTATION DATE: 01/01/2022 This is a pleasant 51-year-old female returning to the clinic status post #2 bilateral MBB on C3, C4 and C5 that afforded her 80% relief for 5 days. 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 [facility] Signed and Approved by: BEN MONROE . 01/08/2022 10:22:00 [facility] 12-17-2021 Miscellaneous Notes Pt aware. [...] to My Chart if tests completed at [facility]: Mildly low vitamin D- increase over the [...] superior labral tear; documented in this encounter [facility] 12-12-2021 Note HNO ID: [id number] Author: Gayle Washington MD Service: ? Author [...] improved with mobic, see ortho/pain clinic for terminal superintendent pain recommendations/injections, prn acetaminophen, start prn heat/ice/otc [...] Urine or urethritis: no Renal/liver disease: no COMPLAINT SPECIALIST/PNS/sz/cva/cancer disease: no HEME-Cytopenias/LAD/Clots: no Fevers: no Fatigue: [...] MEDICAL HISTORY: PMH (more content not included)... [facility] 12-12-2021 History of Present illness [...] improved with mobic, see ortho/pain clinic for terminal superintendent pain recommendations/injections, prn acetaminophen, start prn heat/ice/otc [...] yes Dactylitis: no H/o precedent/frequent infection(s): no Enthesopathy/Kelely's/heel/plant ar tenderness: as above Skin thickening, psoriasis, photosensitivity, purpura: no Nail changes: ridges/ripples Alpecia, patchy: no Eye inflammation: glasses, R retinal hole SICCA: dry eyes Oral/nasal/genital ulcers: no GI problems-diarrhea/bleeding/IBD/Gl uten intolerence/Dysphagia: gerd Raynaud's phenomenon/digital ulcers: no Organ inv-Serositis: no Lung disease/ILD: no Myopathy/proximal muscle weakness: no Abnormal Urine or urethritis: no Renal/liver disease: no COMPLAINT SPECIALIST/PNS/sz/cva/cancer disease: no HEME-Cytopenias/LAD/Clots: no Fevers: no Fatigue: [...] flat ground knees give out. COVID vaccine [employer] 06/26/21. Feels safe at home. Has enough food, supplies and medications. Overall uncomfortable but happy with rheum care. = supportive care, start celebrex/notify office if not tolerated, OFF mobic/initially improved with medication but now effect wore off, prn flexeril, see pain clinic for care home pain recommendations, see ortho/pain clinic for care home pain [...] video & audio (virtual) or phone or [id number] patient care, completing clinical documentation, obtaining and/or [...] Dr.Renee Leora Gibbons, documented in this encounter [facility] 12-12-2021 Instructions Gayle Washington MD [...] scheduled Thank you. documented in this encounter [facility] 12-09-2021 Miscellaneous Notes Patient has been scheduled as requested for 12/12/21. Referral has been attached. I spoke with Ms. Garcia and she is aware of all of the appointment details. Nataliya DYKES December 09, 2021 2:43 PM Patient calling to schedule follow up appt with Dr Washington no schedule pulling for [place] only [place]ilda. Patient requesting call at [phone] Washington is still at [place]. Please advise. documented in this encounter [facility] 11-18-2021 Note PAIN MANAGEMENT CONS ULTATION CONSULTATION DATE: 11/18/2021 CHIEF COMPLAINT: Cervical pain. HISTORY OF PRESENT ILLNESS: This is a 51-year-old female who had, in the past, been seen by Dr. Burnner, Pain Management in [place], [place]. The patient had changed her insurances to [employer] and, as such, Dr. Brunner does not [...] like to proceed. CC: Kimberley Gibbons D.O. [facility] Signed and Approved by: DR RACHEL STOCK . 11/25/2021 12:22:00 [facility] 10-14-2021 Evaluation note Encounter Date [...] nerve block in the future if needed. [facility] 12-28-2021 Evaluation note* Encounter Date Diagnosis [...] right hip to further evaluate her pain. [facility] 12-15-2021 Evaluation note* Encounter Date Diagnosis [...] (ICD-10 - G89.29) Continue medications as prescribed [facility] 11-11-2021 Evaluation note* Encounter Date Diagnosis [...] (ICD-10 - G89.29) Continue medications as prescribed [facility] 09-29-2021 Evaluation note* Encounter Date Diagnosis [...] injection under ultrasound guidance in the future. [employer] Other Evaluation note* Diagnosis Secondary osteoarthritis of [...] Chronic pain syndrome documented in this encounter [facility] noteNo InformationNort [employer] Other Evaluation note* Diagnosis Secondary osteoarthritis of multiple sites- Primary Osteoarthrosis involving, or with mention of more than one site, but not specified as generalized, multiple sites Vitamin D deficiency Unspecified vitamin D deficiency Fibromyalgia Mylagia and myositis, unspecified documented in this encounter [facility] note* Diagnosis Secondary osteoarthritis of multiple sites Osteoarthrosis involving, or with mention of more than one site, but not specified as generalized, multiple sites documented in this encounter [facility] note* Diagnosis Chronic hip pain, bilateral Chronic left shoulder pain Pain in joint, shoulder region Chronic pain of both knees Bilateral hand pain Pain in limb documented in this encounter [facility] note* Diagnosis Secondary osteoarthritis of multiple sites Osteoarthrosis involving, or with mention of more than one site, but not specified as generalized, multiple sites Cervicalgia Chronic bilateral low back pain with bilateral sciatica documented in this encounter [facility] note* Diagnosis Flatulence, eructation and gas pain Flatulence, eructation, and gas pain Chronic GERD documented in this encounter [facility] general Narrative - Reported* Type Description Date Medical History allergies Medical History factor 5 blood disorder Medical History anxiety Medical History depression Medical History bipolar Medical History lumbar DDD Surgical History back surgery 06/2021 Surgical History neck surgery 05/2021 Hospitalization History see above [facility] Other History general Narrative - Reported* Type Description Date Medical History allergies Medical History factor 5 blood disorder Medical History anxiety Medical History depression Medical History bipolar Medical History lumbar DDD Medical History osteoarthritis of multiple joint s Surgical History back surgery 06/2021 Surgical History neck surgery 05/2021 Hospitalization History see above [employer] Other History of Present illness NarrativePatient has continued intermittent pain symptoms in her right shoulder she is remotely status post rotator cuff repair she had a follow-up MRI scan recently she would like to review with me today. She had a subacromial injection but it did not resolve all of her symptoms.[id number] Work Phone: Reason for referral (narrative)* Diagnostic Procedure Only (Routine) - Closed Specialty Diagnoses / Procedures Referred By Contac t Referred To Contact XR IMAGING Diagnoses Bilateral hand pain Procedures XR HAND GENERAL 3V PA/LAT/OBL BILATERAL X-RAY HAND MINIMUM 3 VIEWS Gayle Washington MD [address] [address] Xr Imaging Referral ID Status Reason Start Date Expiration Date V isits Requested Visits Authorized [id number] Closed Auto-Generate d Referral 06/04/2021 07/04/2022 1 1 * Diagnostic Procedure Only (Routine) - Closed Specialty Diagnoses / Procedures Referred By Contac t Referred To Contact XR IMAGING Diagnoses Chronic pain of both knees Procedures XR KNEE GENERAL 4V AP BOTH/PA BOTH/LAT/MERC BILATERAL KNEE AP-WGT/LAT/MERCHANT Gayle Washington MD [address] [place] [address] Xr Imaging Referral ID Status Reason Start Date Expiration Date V isits Requested Visits Authorized [id number] Closed Auto-Generate d Referral 06/04/2021 07/04/2022 1 1 * Diagnostic Procedure Only (Routine) - Closed Specialty Diagnoses / Procedures Referred By Contac t Referred To Contact XR IMAGING Diagnoses Chronic left shoulder pain Procedures XR SHOULDER GENERAL 3V OR MORE AP/TRUE AP/OTHER LEFT X-RAY SHOULDER COMPLET MIN 2 VIEWS Gayle Washington MD [address] [place] [address] Xr Imaging Referral ID Status Reason Start Date Expiration Date V isits Requested Visits Authorized [id number] Closed Auto-Generate d Referral 06/04/2021 07/04/2022 1 1 * Diagnostic Procedure Only (Routine) - Closed Specialty Diagnoses / Procedures Referred By Contac t Referred To Contact XR IMAGING Diagnoses Chronic hip pain, bilateral Procedures XR HIP BILATERAL 5V PEL/AP/LAT EACH HIP RADEX HIPS BILATERAL WITH PELVIS MINIMUM 5 VIEWS Gayle Washington MD [address] [place] [address] Xr Imaging Referral ID Status Reason Start Date Expiration Date V isits Requested Visits Authorized [id number] Closed Auto-Generate d Referral 06/04/2021 07/04/2022 1 1 [facility] Procedure Only (Routine) - Closed Specialty Diagnoses / Procedures Referred By Contac t Referred To Contact XR IMAGING Diagnoses Bilateral hand pain Procedures XR HAND GENERAL 3V PA/LAT/OBL BILATERAL X-RAY HAND MINIMUM 3 VIEWS Gayle Washington MD [address] [place] [address] Xr Imaging Referral ID Status Reason Start Date Expiration Date V isits Requested Visits Authorized [id number] Closed Auto-Generate d Referral 06/04/2021 07/04/2022 1 1 [facility] Summary Purpose Family History No [...] pain, left Procedures CONSULT TO ORTHOPAEDICS OFFICE/OUTPATIENT [facility] 60-74 MINUTES Gayle Washington MD [address] [place] [address] Referral ID Status Reason Start Date Expiration Date Visits Requested Visits Authorized [id number] Pending Review PCP Requested Referral 12/12/2021 12/12/2022 1 1 Additional Source Comments INFORMATION SOURCE (unrecogn ized section and content) DATE CREATED AUTHOR 06/20/2020 [facility] DATE CREATED AUTHOR AUTHOR'S ORGANIZ ATION 06/27/2020 [facility] DATE CREATED AUTHOR AUTHOR'S ORGANIZ ATION 12/01/2020 [facility] DATE CREATED AUTHOR AUTHOR'S ORGANIZ ATION 02/23/2021 [facility] DATE CREATED AUTHOR AUTHOR'S ORGANIZ ATION 02/23/2021 [employer] DATE CREATED AUTHOR AUTHOR'S ORGANIZ ATION 12/26/2021 [facility] DATE CREATED AUTHOR AUTHOR'S ORGANIZ ATION 07/02/2022 [facility] d[facility] Specialist DATE CREATED AUTHOR AUTHOR'S ORGANIZ ATION 10/08/2022 [facility] DATE CREATED AUTHOR AUTHOR'S ORGANIZ ATION 10/20/2022 [facility] DATE CREATED AUTHOR AUTHOR'S ORGANIZ ATION 10/30/2023 [facility] Specialists [facility] DATE CREATED AUTHOR AUTHOR'S ORGANIZ ATION 01/27/2024 [facility] DATE CREATED AUTHOR AUTHOR'S ORGANIZ ATION 02/05/2024 [facility] DATE CREATED AUTHOR AUTHOR'S ORGANIZ ATION 02/21/2024 [facility] Source Comments (unrecognize d section and content) In the event this informatio n is protected by the Federal Confidentiality of Alcohol and Drug Abuse Patient Records regulations: The Federal rules restrict any use of the information to criminally investigate or prosecute any alcohol or drug abuse patient.[facility] the event this information is protected by the Federal Confidentiality of Alcohol and Drug Abuse Patient Records regulations: The Federal rules restrict any use of the information to criminally investigate or prosecute any alcohol or drug abuse patient.[facility] the event this information is protected by the Federal Confidentiality of Alcohol and Drug Abuse Patient Records regulations: The Federal rules restrict any use of the information to criminally investigate or prosecute any alcohol or drug abuse patient.[facility] the event this information is protected by the Federal Confidentiality of Alcohol and Drug Abuse Patient Records regulations: The Federal rules restrict any use of the information to criminally investigate or prosecute any alcohol or drug abuse patient.[facility] Center[facility] the event this information is protected by the Federal Confidentiality of Alcohol and Drug Abuse Patient Records regulations: The Federal rules restrict any use of the information to criminally investigate or prosecute any alcohol or drug abuse patient.[facility] Center[facility] the event this information is protected by the Federal Confidentiality of Alcohol and Drug Abuse Patient Records regulations: The Federal rules restrict any use of the information to criminally investigate or prosecute any alcohol or drug abuse patient.[facility] Reason for Visit (unrecogniz ed section and content) Reason Comments Follow Up Pain ongoing generalized pain. Specialty Diagnoses / Procedures Referred By Contnelida t Referred To Contact RHEUMATOLOGY Diagnoses Follow Up Procedures OFFICE/OUTPATIENT ESTABLISHED MOD MDM 30-39 MIN Follow Up Gayle Washington MD [address] [place] [address] [facility] [address] [place] [address] Referral ID Status Reason Start Date Expiration Date Visits Requested Visits Authorized [id number] Waiting for Response OON/Self Pay Override Patient cleared - OON Required Payment Collected 12/08/2021 03/08/2022 1 1 Reason Comments Appointment Reason Comments Results Care Teams (unrecognized sec tion and content) Log Loader Helper Relationship Specialty Start Date End Date Kimberley Gibbons, DO [address] [place] [address] PCP - General Family Practice 06/04/21 Log Loader Helper Relationship Specialty Start Date End Date Kimberley Gibbons, DO [address] [place] [address] PCP - General Family Practice 06/04/21 Log Loader Helper Relationship Specialty Start Date End Date Kimberley Gibbons, DO [address] [place] [address] PCP - General Family Medicine 06/04/21 Log Loader Helper Relationship Specialty Start Date End Date Kimberley Gibbons, DO [address] [place] [address] PCP - General Family Medicine 06/04/21 Log Loader Helper Relationship Specialty Start Date End Date Kimberley Gibbons, [address] [place] [address] PCP - General Family Medicine 06/04/21 Log Loader Helper Relationship Specialty Start Date End Date Kimberley Gibbons DO [address] [place] [address] PCP - General Family Medicine 06/04/21 FOR [...] BE BASED ON THE PRIMARY CLINICAL RECORDS. [facility]. provides no warranty or guarantee of the accuracy or completeness of information in this document.
--- NOTE | 2024-04-10 13:29 | P.CN_ITS ---
Consult Note: HPI Data of Consult Patient: known to practice within the last 3 years Consult date: 04/10/24 Requesting Physician: Rosibel Cotton MD Primary Care Provider: Non-Staff Physician, Consult Narrative Reason for consult: left neck pain Narrative: 53yof who presents for in office injection. continues to have left neck pain. cc:: CC: Rosibel Cotton MD Review of Systems ROS Status of ROS 10 or more systems reviewed and unremark able except as noted in history and below PFSH PFSH Medical History Former cigarette smoker ?Z87.891 - Personal history of nicotine dependence (ICD-10) Heartburn ?R12 - Heartburn (ICD-10) Acid reflux ?K21.9 - Gastro-esophageal reflux disease without esophagitis (ICD-10) Osteoarthritis ?M19.90 - Unspecified osteoarthritis, unspecified site (ICD-10) Low back pain ?M54.50 - Low back pain, unspecified (ICD-10) Factor 5 Leiden mutation, heterozygous ?D68.51 - Activated protein C resistance (ICD-10) Anxiety ?F41.9 - Anxiety disorder, unspecified (ICD-10) Obesity ?E66.9 - Obesity, unspecified (ICD-10) Diabetes ?E11.9 - Type 2 diabetes mellitus without complications (ICD-10) SOB (shortness of breath) ?R06.02 - Shortness of breath (ICD-10) High cholesterol ?E78.00 - Pure hypercholesterolemia, unspecified (ICD-10) Hypertension ?I10 - Essential (primary) hypertension (ICD-10) Irregular heart beat ?I49.9 - Cardiac arrhythmia, unspecified (ICD-10) Angina at rest ?I20.89 - Other forms of angina pectoris (ICD-10) Surgical History H/O arthroscopic knee surgery ?Z98.890 - Other specified postprocedural states (ICD-10) H/O lumbosacral spine surgery ?Z98.890 - Other specified postprocedural states (ICD-10) H/O cervical spine surgery ?Z98.890 - Other specified postprocedural states (ICD-10) H/O arthroscopy of shoulder ?Z98.890 - Other specified postprocedural states (ICD-10) H/O carpal tunnel repair ?Z98.890 - Other specified postprocedural states (ICD-10) H/O: hysterectomy ?Z90.710 - Acquired absence of both cervix and uterus (ICD-10) Meds Home Medications and Allergies Home Medications ?Medication ?Instructions ?Recorded ?Confirmed ?Type B-complex with vitamin C 1 tab PO DAILY 08/26/23 02/07/24 History acetaminophen 500 mg tablet 1,500 mg PO DAILY PRN pain 08/26/23 02/07/24 History (Tylenol Extra Strength) amlodipine 5 mg tablet 5 mg PO DAILY 08/26/23 02/07/24 History aspirin 81 mg capsule 81 mg PO DAILY 08/26/23 02/07/24 History atorvastatin 80 mg tablet 80 mg PO DAILY 08/26/23 02/07/24 History celecoxib 400 mg capsule (Celebrex) 400 mg PO BID 08/26/23 02/07/24 History cholecalciferol (vitamin D3) 50 50 mcg PO DAILY 08/26/23 02/07/24 History mcg (2,000 unit) capsule clonazepam 0.5 mg tablet 0.5 mg PO BID 08/26/23 02/07/24 History cyclobenzaprine 10 mg tablet 10 mg PO BID 08/26/23 02/07/24 History desvenlafaxine succinate 100 mg 100 mg PO DAILY 08/26/23 02/07/24 History tablet,extended release 24 hr (Pristiq) ezetimibe 10 mg tablet 10 mg PO DAILY 08/26/23 02/07/24 History lamotrigine 300 mg tablet,extended 300 mg PO DAILY 08/26/23 02/07/24 History release 24 hr magnesium glycinate PO 08/26/23 History metoprolol succinate 25 mg 25 mg PO DAILY 08/26/23 02/07/24 History tablet,extended release 24 hr quetiapine 200 mg tablet 200 mg PO DAILY 08/26/23 02/07/24 History gabapentin 300 mg capsule 300 mg PO DAILY #30 caps 03/30/24 Rx Allergies Allergy/AdvReac Type Severity Reaction Status Date / Time ibuprofen AdvReac Mild Verified 10/25/23 08:09 tramadol AdvReac Mild Verified 10/25/23 08:09 Exam Narrative Exam Narrative: Psych-alert and oriented x 3.? Attentive and appropriate, constitutionally normal, displays normal mood and affect per situation.? There are no obvious deficits in memory, reasoning, or intellect.? Skin-no obvious rashes, bruising, or erythema noted to the patient's area of pain. Extremities-upper extremities are warm with minimal edema and palpable pulses. Cervical- tenderness to palpation noted in the cervical spine and paraspinal musculature.?Multiple trigger points expressed on palpation. Pain is elicited with extension, and lateral rotation of the cervical spine.? Range of motion is slightly diminished due to pain. Coordination remains intact.? Gait remains non-antalgic. Assessment and Plan Assessment and Plan (1) Myalgia, other site: (2) Cervical spondylosis: Plan 53yof who presents for in office injection. continues to have left neck pain, so will proceed with trigger point injections. she is in agreement. Procedure: Left splenius capitis, sternocleidomastoid, trapezius trigger point injections. Medications: Bupivacaine 0.25% 4cc, kenalog 40mg I explained the details of the procedure to the patient including the risks, benefits, and alternatives.? We had an informed discussion.? The patient verbalized understanding and signed the consent form.? All questions were answered appropriately.? A time-out was performed.? After obtaining a comfortable seated position, the skin overlying the left neck was prepped with alcohol 3 times. The needle was inserted in a sterile manner through the skin towards the palpated trigger point areas. The contents of the syringe were gently injected without any resistance 1cc at a time into the appropriate trigger point.? The needle was removed and pressure was applied at the injection site to decrease the incidence of ecchymosis and hematoma formation.? A sterile bandage was applied. The patient tolerated the procedure well.
== END 2024-04-10 11:57 | disposition home or self-care (01) ==
LOC: PM 11:57
PROVIDERS: Visit Provider Anesthesiology
DX: M79.18 Myalgia, other site (principal); M47.812 Spondylosis without myelopathy or radiculopathy, cervical region
CPT/HCPCS: 20553; J0665; J3301

== ENCOUNTER 2024-05-17 09:27 | Outpatient (OUT) | payer OTHER, SELFPAY ==
[2024-05-17 10:17] LABS: Anion Gap 14.9; BUN Creatinine Ratio 21.2; Carbon Dioxide 27.2 mmol/L (21.0-32.0); Chloride 108 mmol/L (98-107); Chol HDL Ratio 2.8; Cholesterol 155 mg/dL (<=200); Estimated GFR (African America >60 (>=60 mL/min/1.73m^2); Estimated GFR (Non-African Ame 55 (>=60 mL/min/1.73m^2); Glucose 169 mg/dL (74-106); HDL Cholesterol 56 mg/dL (40-60); Potassium 4.1 mmol/L (3.5-5.1); Sodium 146 mmol/L (136-145); Triglycerides 105 mg/dL (<=150)
[2024-05-17 11:03] LABS: Estimated Average Glucose 220 mg/dL; Glycohemoglobin A1C 9.3 % (4.5-6.2)
== END 2024-05-17 09:28 | disposition home or self-care (01) ==
PROVIDERS: Visit Provider Internal Medicine Cardiovascular Disease
DX: I25.10 Atherosclerotic heart disease of native coronary artery without angina pectoris (principal)
CPT/HCPCS: 36415; 80048; 80061; 83036

== ENCOUNTER 2024-05-18 09:27 | Outpatient (OUT) | payer OTHER, SELFPAY ==
--- OUTSIDE RECORDS SUMMARY | 2024-05-18 09:34 | XMS_ITS | CCD ---
Author Organization [facility] Care Team Providers Care Double End Tenon Operator Name Role Phone ZAIRE, CRISTOBAL F [...] Care Unavailable FELICIA, FEMI H. Referring Unavailable Dallas, Cristobal F Unavailable Edwige DO, Kimberley Leora Primary Care Provider [phone] Emmett Brunner Unavailable Letty Olson Unavailable Edwige [...] Unavailable Kimberley Gibbons DO Primary Care Provider [phone] Unavailable Primary Care Provider UnavailKIMBERLEY Ashley Attending Unavailable JESSIE REID Referring Unavailable CLIFFORD VANN Attending Unavailab IZABEL Steiner Attending Unavailable KIMBERLEY GIBBONS Attending Unavailable NICOLE TELLES Referring Unavailable NICOLE TELLES Referring Unavailable NANCY LUDWIG Attending Unavailable NANCY LUDWIG Admitting Unavailable NICOLE TELLES Referring Unavailable Yury ARGUELLO, Rosibel Laurent Attending Unavailable Yury ARGUELLO, Rosibel Laurent Attending Unavailable Gijohnnie ARGUELLO, Rosibel Laurent Attending Unavailable Yury ARGUELLO, Rosibel Laurent Attending Unavailable Yury ARGUELLO, Rosibel Laurent Attending Unavailable Yury ARGUELLO, Rosibel Laurent Attending Unavailable DALE HUTCHISON Attending Unavailable TIM SAMUELS Attending Unavailable SOLITARIO GARCÍA Attending Unavailable SOLITARIO GARCÍA Attending Unavailable SOLITARIO GARCÍA Attending Unavailable Allergies Allergy Classification Reported Allergen(s) Allergy Type Date of Onset Reaction(s) Facility (9 sources) Ibuprofen; 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: [IBUPROFEN] Drug Allergy 0 Unknown, Diarrhea [facility] [place] (20 sources) traMADol; 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: [TRAMADOL] Drug Allergy 9 Unknown, Nausea Only [facility] [place] (1 source) Ibuprofen Drug Allergy [facility] (1 source) traMADol Drug Allergy 2 [facility] Medications Current Medications Medication Drug [...] on above: Take 1 capsule by mo [facility] twice daily. Take 1 capsule by [facility] two times a day. clonazePAM 0.5 [...] daily. 0 Active take 1 tablet by [facility] every twenty-four hours Pristiq 100 MG [...] tablet by mouth 0 12/01/2022 12/01/2023 Active Jaroso-3 Fatty Acids (FISH OIL) 1200 MG CAPS (1 source) Jaroso-3 Fatty Ac ids (FISH OIL) 1200 MG [...] Take 0.5 mg by mouth once daily. rchxq-hp-2-pxr-auc-tbwc joey-ast 1,278-028-31-80 mg cap (4 sources) awbjb-gm-3-dha-e pa-joey spho-ast 1,583-190-62-80 mg cap Take by mouth. 0 Active [...] Classification Problem Date Documented Da te Episodic/Chronic Coagulation and hemorrhagic disorders (2 sources) Hereditary deficiency of other clotting factors; 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: [Hereditary deficiency of other clotting factors] Onset: 11-02-2023 Chronic Coronary atherosclerosis and other heart disease (2 sources) Atherosclerotic heart disease of [place] coronary artery without angina pectoris; 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: [Atherosclerotic heart disease of [place] coronary artery without angina pectoris] Onset: 05-04-2024 Chronic Deficiency and other anemia (1 source) Anemia in other chronic diseases classified elsewhere; 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: [Anemia of chronic disease] Onset: 12-12-2021 Chronic Diseases of mouth; excluding dental (6 sources) Unspecified lesions of oral mucosa; 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: [Other diseases of tongue] Onset: 10-13-2022 Episodic Esophageal disorders (4 sources) Gastro-esophageal reflux disease without esophagitis; 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: [GERD WITHOUT ESOPHAGITIS] Onset: 10-19-2022 Chronic Nutritional deficiencies (8 sources) Vitamin D deficiency; 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: [Vitamin D deficiency, unspecified] Onset: 12-12-2021 Chronic Osteoarthritis (11 sources) Degenerative joint disease involving multiple joints; 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] Onset: 06-05-2021 Chronic Other aftercare (1 source) 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; 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: [SCANNING COORDINATOR CURRNT USE ANTICOAGULANTS] Onset: 10-19-2022 Episodic Other connective tissue disease (5 sources) [...] 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: [Tachycardia, unspecified] Onset: 04-16-2020 05-03-2020 Episodic Nutritional deficiencies (2 sources) Cobalamin deficiency; 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: [Deficiency of other specified B group vitamins] Onset: 12-12-2021 Episodic Other acquired deformities (1 source) Lumbar spondylolisthesis; 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: [Spondylolisthesis, lumbar region] Onset: 06-25-2020 06-25-2020 Episodic Other aftercare (2 sources) medical terminologist (current) use of non-steroidal anti-inflammatories (NSAID); 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: [medical terminologist (current) use of non-steroidal anti-inflammatories (nsaid)] Onset: 06-22-2023 Episodic Other bone disease and musculoskeletal deformities (2 sources) Other specified disorders of bone density and structure, unspecified site; 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: [Other specified disorders of bone density and structure, unspecified site] Onset: 06-22-2023 Episodic Other connective tissue disease (7 sources) Pain of bilateral hands; 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: [Pain in right hand] Onset: 06-05-2021 Episodic Other connective tissue disease (6 sources) Fibromyalgia; 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: [Fibromyalgia] Onset: 12-17-2021 12-17-2021 Episodic Other connective tissue disease (1 source) Fibromyalgia; 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: [Fibromyalgia] Onset: 12-01-2022 Episodic Other connective tissue disease (2 sources) Other bursitis of knee, unspecified knee; 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: [Other bursitis of knee, unspecified knee] Onset: 01-25-2024 Episodic Other gastrointestinal disorders (1 source) Flatulence; [...] dyspnea; 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: [Other forms of dyspnea] Onset: 11-02-2023 Episodic Other non-traumatic joint disorders (7 sources) [...] joint; 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: [Pain in unspecified joint] Onset: 01-25-2024 Episodic Other nutritional; endocrine; and metabolic disorders [...] and lump, unspecified] Onset: 06-06-2021 06-06-2021 Episodic Spondylosis; intervertebral disc disorders; other back problems (20 sources) Chronic low back pain; 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: [Lumbago with sciatica, left side] Onset: 06-18-2020 Resolved: 10-14-2021 Episodic Results Test Name Value Interpretation Reference Range Facility Surgical Pathology Reporton 02-03-2024 Surgical Pathology Report (NOTE) Path Number: [id number] -- Diagnosis -- A. STOMACH, ANTRUM, BIOPSIES: [...] MALIGNANCY. Piyush Lozano M.D. Electronically Signed Out sls/02/04/2024 Clinical Information Pre-Op Diagnosis: CHRONIC GERD Operative [...] Description A-C. Microscopic examination performed. Processing Lab: [address] [address] Interpretation Performed at [address] [address] SURGICAL PATHOLOGY CONSULTATION Patient Name: LEXI GARCIA Med Rec: [id number] [facility] CONSULTING PATHOLOGISTS [facility] ANATOMIC PATHOLOGY [address] [place] [address]. [place], [place] [address] [facility] Follow-Upon 01-25-2024 Follow-Up [id number] Nikko Garcia 1970 Date Provider Department Center 01/25/2024 SOLITARIO ADAMS C RHEUM [facility] Family History Problem Relation Age of Onset COPD Mother Coronary artery disease Father 56 Family Status - Relation Status Age at Mother Alive Father Level of Service:07497 AL OFFICE/OUTPATIENT ESTABLISHED LOW MDM 20 MIN (GC) Reason for Visit and Comments: Follow-up [943575] - 3 mth follow up [facility] Abstracton 11-30-2023 Abstract [id number] Nikko Garcia 1970 Date Provider Department Center 11/30/2023 SVITLANA TORRES C RHEUM [facility] Family History Problem Relation Age of Onset COPD Mother Coronary artery disease Father 56 Family Status - Relation Status Age at Mother Alive Father [facility] 36on 11-22-2023 34 Last visit: 10/26/23 Next visit: 01/25/24 CBC: 12/12/21 BMP: 01/21/23 [facility] Refillon 11-20-2023 Refill [id number] Nikko Garcia 1970 Date Provider Department Center 11/20/2023 SOLITARIO ADAMS C RHEUM [facility] Family History Problem Relation Age of Onset COPD Mother Coronary artery disease Father 56 Family Status - Relation Status Age at Mother Alive Father Reason for Visit and Comments: Med Refill [[id number]] [facility] Office Visiton 11-02-2023 Follow-up visit [id number] Nikko Garcia 1970 F Date Provider Department Center 11/02/2023 Haroon-TIM SAMUELS CARD [facility] Family History Problem Relation Age of Onset COPD Mother Coronary artery disease Father 56 Family Status - Relation Status Age at Mother Alive Father Level of Service:97311 AL OFFICE/OUTPATIENT ESTABLISHED MOD MDM 30 MIN Reason for Visit and Comments: Atrial Fibrillation [80] - symptoms Normal [facility] Follow-Upon 10-26-2023 Follow-Up [id number] Nikko Garcia 1970 Date Provider Department Center 10/26/2023 1214-SOLITARIO GARCÍA C RHEUM [facility] Family History Problem Relation Age of Onset COPD Mother Coronary artery disease Father 56 Family Status - Relation Status Age at Mother Alive Father Level of Service:20051 AL OFFICE/OUTPATIENT ESTABLISHED LOW MDM 20 MIN (GC) Reason for Visit and Comments: Follow-up [[id number]] Normal [facility] Celiac Disease Panelon 09-13 Gliadin Deam Pep IgA 1.9 U/mL Normal <7.0 [facility] Comment on above: Result Comment: CELIAC INTERPRETATION <7.0 Negative 7.0-10.0 Equivocal >10.0 Positive units: U/mL Performed By: #### C ELP #### [facility] [address] [place] [address] Platemaker: Talib Clements MD Gliadin Deam Pep IgG <0.4 Normal <7.[address] [place] [address] Comment on above: Result Comment: CELIAC INTERPRETATION <7.0 Negative 7.0-10.0 Equivocal >10.0 Positive units: U/mL Performed By: #### C ELP #### [facility] [address] [place] [address] Platemaker: Talib Clements MD Tiss Transglutam IgA 0.4 U/mL Normal <7.0 [facility] Comment on above: Result Comment: CELIAC INTERPRETATION <7.0 Negative 7.0-10.0 Equivocal >10.0 Positive units: U/mL Performed By: #### C ELP #### [facility] [address] [place] [address] Platemaker: Talib Clements MD IgA [Mass/Vol] 184 mg/dL Normal 70-400 [facility] Comment on above: Performed By: #### C ELP #### [facility] [address] [place] [address] Platemaker: Talib Clements MD H. pylori Antigenon 09-14-19 H. pylori Antigen Specimen Description .FECES Direct Exam NEGATIVE Report Status FINAL 09/14/2023 [facility] Comment on above: Performed By: #### F HPY #### [facility] [address] [place] [address] Platemaker: Talib Clements MD [facility] [address] [place], [place] [id number] Platemaker: David Hough MD Orders Onlyon 08-05-2023 Orders Only [id number] Nikko Garcia 1970 F Date Provider Department Center 08/05/2023 SHANON HSIEH Family History Problem Relation Age of Onset COPD Mother Coronary artery disease Father 56 Family Status - Relation Status Age at Mother Alive Father [facility] Follow-Upon 06-22-2023 Follow-Up [id number] Nikko Garcia 1970 Date Provider Department Center 06/22/2023 SOLITARIO ADAMS [facility] RHEUM Heri Heal Family History Problem Relation Age of Onset COPD Mother Coronary artery disease Father 56 Family Status - Relation Status Age at Mother Alive Father Level of Service:78842 AL OFFICE/OUTPATIENT ESTABLISHED MOD MDM 30 MIN () Reason for Visit and Comments: Follow-up [[id number]] - Normal [facility] DEXA BONE DENSITYon 05-11-20 DEXA [...] BY: Ricardo Muro MD Normal Not Available CBC AUTO DIFFon 10-07-2022 BASO # 0.0 103/ul Normal 0.0-0.1 [facility] Comment on above: Performed By: #### C BC #### [facility] [address] [address] [address] Donna Cantrell Basophils/100 WBC (Bld) 0.5 % Normal 0.2-2.0 [facility] Comment on above: Performed By: #### C BC #### [facility] [address] [address] [address] Donna Cantrell EO # 0.0 103/ul Normal 0.0-0.7 [facility] Comment on above: Performed By: #### C BC #### [facility] [address] [address] [address] Donna Cantrell Eosinophils/100 WBC (Bld) 0.0 % Critically low 0.9-7.0 [facility] Comment on above: Performed By: #### C BC #### [facility] [address] [address] [address] Donna Cantrell Erythrocyte distribution width (RBC) [Ratio] 13.6 % Normal 11.0-15.0 [facility] Comment on above: Performed By: #### C BC #### [facility] [address] [address] [address] Donna Cantrell Hematocrit (Bld) [Volume fraction] 42.0 % Normal 36.0-48.0 [facility] Comment on above: Performed By: #### C BC #### [facility] [address] [place] [address] Dr. Donna Cantrell Hemoglobin (Bld) [Mass/Vol] 14.4 g/dL Normal 12.0-16.0 [facility] Comment on above: Performed By: #### C BC #### [facility] [address] [place] [address] Dr. Donna Cantrell IG # 0.06 10e3/ul Critically high 0.00-0.03 [facility] Comment on above: Performed By: #### C BC #### [facility] [address] [place] [address] Dr. Donna Cantrell IG % 0.8 % Critically high 0.0-0.5 [facility] Comment on above: Performed By: #### C BC #### [facility] [address] [place] [address] Dr. Donna Cantrell LYMPH # 2.5 103/ul Normal 1.2-3.8 [facility] Comment on above: Performed By: #### C BC #### [facility] [address] [place] [address] Dr. Donna Cantrell Lymphocytes/100 WBC (Bld) 30.8 % Normal 20.5-60.0 [facility] Comment on above: Performed By: #### C BC #### [facility] [address] [place] [address] Dr. Donna Cantrell MANUAL DIFF REQ NO Normal [facility] Comment on above: Performed By: #### C BC #### [facility] [address] [place] [address] Dr. Donna Cantrell MCH (RBC) [Entitic mass] 30.3 pg Normal 26.7-34.0 [facility] Comment on above: Performed By: #### C BC #### [facility] [address] [address] [address] Donna Cantrell MCHC (RBC) [Mass/Vol] 34.3 g/dL Normal 29.9-35.2 [facility] Comment on above: Performed By: #### C BC #### [facility] [address] [address] [address] Donna Cantrell MCV (RBC) [Entitic vol] 88.2 fL Normal 81.0-99.0 [facility] Comment on above: Performed By: #### C BC #### [facility] [address] [place] [address] Dr. Donna Cantrell MONO # 0.5 103/ul Normal 0.3-0.8 [facility] Comment on above: Performed By: #### C BC #### [facility] [address] [place] [address] Dr. Donna Cantrell Monocytes/100 WBC (Bld) 6.4 % Normal 1.7-12.0 [facility] Comment on above: Performed By: #### C BC #### [facility] [address] [place] [address] Dr. Donna Cantrell NEUT # 4.9 103/ul Normal 1.4-6.5 [facility] Comment on above: Performed By: #### C BC #### [facility] [address] [place] [address] Dr. Donna Cantrell Neutrophils/100 WBC (Bld) 61.5 % Normal 43.0-75.0 [facility] Comment on above: Performed By: #### C BC #### [facility] [address] [place] [address] Dr. Donna Cantrell Platelet mean volume (Bld) [Entitic vol] 9.9 fL Normal 9.5-13.5 [facility] Comment on above: Performed By: #### C BC #### [facility] [address] [place] [address] Dr. Donna Cantrell PLT 234 103/ul Normal 150-450 [facility] Comment on above: Performed By: #### C BC #### [facility] [address] [place] [address] Dr. Donna Cantrell RBC 4.76 106/ul Normal 4.20-5.40 [facility] Comment on above: Performed By: #### C BC #### [facility] [address] [place] [address] Dr. Donna Cantrell WBC 8.0 103/ul Normal 4.0-11.0 [facility] Comment on above: Performed By: #### C BC #### [facility] [address] [place] [address] Dr. Donna Cantrell PROF CHEM 8 (BAS METB)on Anion gap [Moles/Vol] 13.9 mmol/L Normal [facility] Comment on above: Performed By: #### B MP #### [facility] [address] [place] [address] Dr. Donna Cantrell Calcium [Mass/Vol] 8.9 mg/dL Normal 8.5-10.1 [facility] Comment on above: Performed By: #### B MP #### [facility] [address] [place] [address] Dr. Donna Cantrell Chloride [Moles/Vol] 104 mmol/L Normal 98-107 [facility] Comment on above: Performed By: #### B MP #### [facility] [address] [place] [address] Dr. Donna Cantrell CO2 [Moles/Vol] 26.3 mmol/L Normal 21.0-32.0 [facility] Comment on above: Performed By: #### B MP #### [facility] [address] [place] [address] Dr. Donna Cantrell Creatinine [Mass/Vol] 0.91 mg/dL Normal 0.55-1.02 [facility] Comment on above: Performed By: #### B MP #### [facility] [address] [place] [address] Dr. Donna Cantrell EGFR-AF UGANDAN >60 Normal >=60 [facility] Comment on above: Performed By: #### B MP #### [facility] [address] [place] [address] Dr. Donna Cantrell EGFR-NON AF UGANDAN >60 Normal >=60 [facility] Comment on above: Performed By: #### B MP #### [facility] [address] [address] [address] Donna Cantrell Glucose [Mass/Vol] 127 mg/dL Critically high 74-106 [facility] Comment on above: Performed By: #### B MP #### [facility] [address] [address] [address] Donna Cantrell Potassium [Moles/Vol] 4.2 mmol/L Normal 3.5-5.1 [facility] Comment on above: Performed By: #### B MP #### [facility] [address] [address] [address] Donna Cantrell Sodium [Moles/Vol] 140 mmol/L Normal 136-145 [facility] Comment on above: Performed By: #### B MP #### [facility] [address] [address] [address] Donna Cantrell Urea nitrogen [Mass/Vol] 15.0 mg/dL Normal 7.0-18.0 [facility] Comment on above: Performed By: #### B MP #### [facility] [address] [address] [address] Donna Cantrell Urea nitrogen/Creatini ne [Mass ratio] 16.5 mg/mg Normal [facility] Comment on above: Performed By: #### B MP #### [facility] [address] [address] [address] Donna Cantrell PROTIMEon 10-07-2022 INR Coag (PPP) [Relative time] {INR} Normal [facility] Comment on above: Performed By: #### B LTM #### [facility] [address] [place] [address] Dr. Donna Cantrell INR GUIDELINES SEE BELOW Normal [facility] Comment on above: Result Comment: SHIRA RED INR: 2.0 - 3.0 CONDITIONS NOT LISTED BELOW 2.5 - 3.5 FOR PROSTHETIC HEART VALVE REPLACEMENT 2.5 - 3.5 RECURRENT THROMBOSIS Performed By: #### B LTM #### [facility] [address] [place], [place] [address] Dr. Donna Cantrell PT Coag (PPP) [Time] 9.7 s Normal 9.0-11.6 [facility] Comment on above: Performed By: #### B LTM #### [facility] [address] [place], [place] [address] Dr. Donna Cantrell PTTon 10-07-2022 aPTT Coag (Bld) [Time] 29.6 s Normal 22.3-36.2 [facility] Comment on above: Performed By: #### B LTM #### [facility] [address] [address] [address] Donna Cantrell SCREENING MAMMOGRAM W/AJ, BILATERAL*on [...] by Eder Barraza on 07/01/2022 1545 Normal [facility] Ingredient Scaler XR Shoulder Complete Right*o n 07-01-2022 XR [...] by Eder Barraza on 07/02/2022 0746 Normal [facility] Ingredient Scaler XR Spine Lumbar Complete w/F jama AND [place] 07-01-2022 XR Spine Lumbar Complete w/Flex AND [...] by Eder Barraza on 07/02/2022 0744 Normal [facility] Ingredient Scaler CNPPearl 12-17-2021 CNPN Telephone (ToldoULN) LEXI GARCIA ([id number]) 1970 F Date Time Provider Department 12/17/21 [...] PO Daily January 07, 2021 7:15am - zweeq-mc-0-hcj-onu-ngaoyvd-as t 1,972-616-46-80 mg cap Take by mouth. - PNV [...] - Estradiol (more content not included)... Normal [facility] BLEEDING TIMEon 12-16-2021 BLEEDING TIME 7.0 min Normal 1.0-8.0 [facility] Comment on above: Result Comment: test done by Selam Almodovar Performed By: #### B LTM #### [facility] [address] [place] [address] Dr. Donna Cantrell 25([place])D3 [facility] 25-hydroxyvitamin D3 [Mass/Vol] 29.6 ng/mL Low 31.0-80.0 [facility] Comment on above: Order Comment: Renetta weber Type: BLOOD SPECIMEN Ordering Facility: [facility] Address: [address] [place] [address] Result Comment: Clas sification of 25 [place] Vitamin D status: Deficiency/Insufficiency: < or = 30 ng/ml. Sufficiency/Optimal Levels: 31-80 ng/mL Toxicity: > 100 ng/mL. Test performed by chemiluminescent immunoassay. Performed By: #### 1 989-3 #### [facility] CLIA [id number] [address] [place] [address] [place] CBC panel Auto (Bld)on 12-12 Erythrocyte distribution width (RBC) [Ratio] 14.4 % Normal 11.5-15.0 [facility] Comment on above: Order Comment: Renetta weber Type: BLOOD SPECIMEN Ordering Facility: [facility] Address: [address] [place] [address] Performed By: #### 5 8410-2 #### [facility] CLIA [id number] [address] [place] [address] [place] Hematocrit (Bld) [Volume fraction] 45.2 % Normal 36.0-46.0 [facility] Comment on above: Order Comment: Thomi men Type: BLOOD SPECIMEN Ordering Facility: [facility] Address: [address] [place], [place] [id number] Performed By: #### 5 8410-2 #### [facility] CLIA [id number] [address] [place] [address] [place] Hemoglobin (Bld) [Mass/Vol] 14.8 g/dL Normal 11.5-15.5 [facility] Comment on above: Order Comment: Renetta weber Type: BLOOD SPECIMEN Ordering Facility: [facility] Address: [address] [place], [place] [id number] Performed By: #### 5 8410-2 #### [facility] CLIA [id number] [address] [place] [address] [facility] MCH (RBC) [Entitic mass] 29.7 pg Normal 26.0-34.0 [facility] Comment on above: Order Comment: Speci men Type: BLOOD SPECIMEN Ordering Facility: [facility] Address: [address] [place], [place] [id number] Performed By: #### 5 8410-2 #### [facility] CLIA [id number] [address] [place] [address] [place] MCHC (RBC) [Mass/Vol] 32.7 g/dL Normal 30.5-36.0 [facility] Comment on above: Order Comment: Speci men Type: BLOOD SPECIMEN Ordering Facility: [facility] Address: [address] [place], [place] [id number] Performed By: #### 5 8410-2 #### [facility] CLIA [id number] [address] [place] [address] [place] MCV (RBC) [Entitic vol] 90.8 fL Normal 80.0-100.0 [facility] Comment on above: Order Comment: Speci men Type: BLOOD SPECIMEN Ordering Facility: [facility] Address: [address] [place], [place] [id number] Performed By: #### 5 8410-2 #### [facility] CLIA [id number] [address] [place] [address] [place] Nucleated RBC (Bld) [#/Vol] 10*3/uL Normal <0.01 [facility] Comment on above: Order Comment: Speci men Type: BLOOD SPECIMEN Ordering Facility: [facility] Address: [address] [place], [place] [address] Performed By: #### 5 8410-2 #### [facility] CLIA [id number] [address] [place] [address] [place] Platelet mean volume (Bld) [Entitic vol] 10.7 fL Normal 9.0-12.7 [facility] Comment on above: Order Comment: Speci men Type: BLOOD SPECIMEN Ordering Facility: [facility] Address: [address] [place] [address] Performed By: #### 5 8410-2 #### [facility] CLIA [id number] [address] [place] [address] [place] Platelets (Bld) [#/Vol] 259 10*3/uL Normal 150-400 [facility] Comment on above: Order Comment: Speci men Type: BLOOD SPECIMEN Ordering Facility: [facility] Address: [address] [place], [place] [address] Performed By: #### 5 8410-2 #### [facility] CLIA [id number] [address] [place] [address] [place] RBC (Bld) [#/Vol] 4.98 10*6/uL Normal 3.90-5.20 [facility] Comment on above: Order Comment: Speci men Type: BLOOD SPECIMEN Ordering Facility: [facility] Address: [address] [place], [place] [address] Performed By: #### 5 8410-2 #### [facility] CLIA [id number] [address] [place] [address] [place] WBC (Bld) [#/Vol] 9.25 10*3/uL Normal 3.70-11.00 [facility] Comment on above: Order Comment: Speci men Type: BLOOD SPECIMEN Ordering Facility: [facility] Address: [address] [place], [place] [address] Performed By: #### 5 8410-2 #### [facility] CLIA [id number] [address] [place] [address] [place] CNOVon 12-12-2021 CNOV Office Visit (AMARJIT ) LEXI GARCIA ([id number]) 1970 F Date Time Provider Department 12/12/21 [...] flat ground knees give out. COVID vaccine Five Below 06/26/21. Feels safe at home. 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 clinic for nursing home pain recommendations/injections, prn acetaminophen, start prn heat/ice/otc arthritis creams, low impact weightbearing exercise as tolerated, avoid aggravating triggers,supportive care, start flexeril/notify office if not tolerated, improved with mobic, see ortho/pain clinic for meterman pain recommendations/injections, prn acetaminophen, start prn heat/ice/otc [...] yes Dactylitis: no H/o precedent/frequent infection(s): no Enthesopathy/Rowe's/heel/p lantar tenderness: as above Skin thickening, psoriasis, photosensitivity, purpura: no Nail changes: ridges/ripples Alpecia, patchy: no Eye inflammation: glasses, R retinal hole SICCA: dry eyes Oral/nasal/genital ulcers: no GI problems-diarrhea/bleeding/IB D/Gluten intolerence/Dysphagia: gerd Raynaud's phenomenon/digital ulcers: no Organ inv-Serositis: no Lung disease/ILD: no Myopathy/proximal muscle weakness: no Abnormal Urine or urethritis: no Renal/liver disease: no 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 Normal [facility] CRP SerPl-ncon 12-12-2021 CRP [Mass/Vol] 1.4 mg/dL High <0.9 [facility] Comment on above: Order Comment: Speci men Type: BLOOD SPECIMEN Ordering Facility: [facility] Address: [address] [place] [phone] Performed By: #### 1 988-5, 2132-9, 65718-9, 3084-1 #### [facility] CLIA [id number] [address] [place], [place] [address] [address] [place] Comprehensive metabolic 2000 panelon 12-12-2021 Albumin [Mass/Vol] 4.2 g/dL Normal 3.9-4.9 [facility] Comment on above: Order Comment: Speci men Type: BLOOD SPECIMEN Ordering Facility: [facility]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 Comment on above: Performed By: #### B MP #### [facility] [address] [place] [address] Potassium [Moles/Vol] 3.8 mmol/L Normal 3.4-4.9 [facility] Comment on above: Performed By: #### B MP #### [facility] [address] [place] [address] Sodium [Moles/Vol] 140 mmol/L Normal 135-144 [facility] Comment on above: Performed By: #### B MP #### [facility] [address] [place] [address] Urea nitrogen [Mass/Vol] 20 mg/dL Normal 6-20 [facility] Comment on above: Performed By: #### B MP #### [facility] [address] [place] [address] CBC With Platelet No Differe ntialon 06-18-2020 Erythrocyte distribution width (RBC) [Ratio] 14.2 % Normal 11.5-14.5 [facility] Comment on above: Performed By: #### C BCND #### [facility] [address] [place] [address] Hematocrit (Bld) [Volume fraction] 41.5 % Normal 37.0-47.0 [facility] Comment on above: Performed By: #### C BCND #### [facility] [address] [place] [address] Hemoglobin (Bld) [Mass/Vol] 14.3 g/dL Normal 12.0-16.0 [facility] Comment on above: Performed By: #### C BCND #### [facility] [address] [place] [address] MCH (RBC) [Entitic mass] 31.4 pg Critically high 27.0-31.3 [facility] Comment on above: Performed By: #### C BCND #### [facility] [address] [place] [address] MCHC (RBC) [Mass/Vol] 34.5 % Normal 33.0-37.0 [facility] Comment on above: Performed By: #### C BCND #### [facility] [address] [place] [address] MCV (RBC) [Entitic vol] 91.2 fL Normal 82.0-100.0 [facility] Comment on above: Performed By: #### C BCND #### [facility] [address] [place] [address] Platelets (Bld) [#/Vol] 241 10*3/uL Normal 130-400 [facility] Comment on above: Performed By: #### C BCND #### [facility] [address] [place] [address] RBC (Bld) [#/Vol] 4.55 10*6/uL Normal 4.20-5.40 [facility] Comment on above: Performed By: #### C BCND #### [facility] [address] [place] [address] WBC (Bld) [#/Vol] 9.7 10*3/uL Normal 4.8-10.8 [facility] Comment on above: Performed By: #### C BCND #### [facility] [address] [place] [address] COVID-19, NAAon 06-18-2020 Source 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 Normal [facility] Comment on above: Performed By: #### I RCOV #### [facility] [address] [place] [address] Prothrombin Timeon 0 INR Coag (PPP) [Relative time] 1.0 {INR} Normal [facility] Comment on above: Performed By: #### P T ####[facility] [place] [phone] PT Coag (PPP) [Time] 13.1 s Normal 12.3-14.9 [facility] Comment on above: Performed By: #### P T ####[facility] [place] [phone] Type and Screen Capture 3 sc rn cellon 06-18-2020 Type and Screen Capture 3 scrn cell PATIENT: JOSHUA Doss LOC: [facility] BILL# : [id number] : 1970 SEX: F ORDERED BY: TEENA Lowe ORDERED : 06/18/2020 15:07 COLLECTED: 06/18/2020 15:36 ORDER : [id number] RECEIVED : 06/18/2020 15:36 Second, confirmatory specimen needed to satisfy [facility] policy. TEST NAME RESULT UNITS RANGES ABN FL ST ABORH Capture O POS F Antibody 3 Cell Scrn Captu NEG F Normal [facility] Comment on above: Performed By: #### T S3C #### [facility] [address] [place] [address] XR SPINE ENTIRE (2-3 VIEWS)o n 06-18-2020 [...] Ash Horta MD 06/19/20 Final result Normal [facility] FLUORO FOR SURGICAL PROCEDUR ESon 05-09-2020 FLUORO [...] Maximiliano Rachel MD 05/09/20 Final result Normal [facility] COVID-19, NAAon 05-05-2020 COVID-19, BELLE Not Detected Normal Not Detect [facility] Comment on above: Result Comment: This nucleic acid amplification test was developed and its performance characteristics determined by [employer]. Nucleic acid amplification tests include PCR and [...] detected) result in this assay. Performed at: [facility] [address] [facility], [place] [id number] Platemaker: Altagracia Quiñonez MD, Phone: [phone] Performed By: #### I RCOV ####[facility] [place] [place] [phone] Basic Metabolic Panelon 10-3 0-2020 Anion gap [Moles/Vol] 12 mmol/L Normal 9-15 [facility] Comment on above: Performed By: #### B MP #### [facility] [address] [place] [address] Calcium [Mass/Vol] 10.5 mg/dL Critically high 8.5-9.9 [facility] Comment on above: Performed By: #### B MP #### [facility] [address] [place] [address] Chloride [Moles/Vol] 98 mmol/L Normal 95-107 [facility] Comment on above: Performed By: #### B MP #### [facility] [address] [place] [address] CO2 [Moles/Vol] 27 mmol/L Normal 20-31 [facility] Comment on above: Performed By: #### B MP #### [facility] [address] [place] [address] Creatinine [Mass/Vol] 0.82 mg/dL Normal 0.50-0.90 [facility] Comment on above: Performed By: #### B MP #### [facility] [address] [place] [address] GFR/1.73 sq M predicted among blacks MDRD (S/P/Bld) [Vol rate/Area] mL/min/{1.73_m2} Normal >60 [facility] Comment on above: Result Comment: >60 mL/min/1.73m2 EGFR, calc. for ages 18 and older using the MDRD formula (not corrected for weight), is valid for stable renal function. Performed By: #### B MP #### [facility] [address] [place] [address] GFR/1.73 sq M.predicted MDRD (S/P/Bld) [Vol rate/Area] mL/min/{1.73_m2} Normal >60 [facility] Comment on above: Result Comment: >60 mL/min/1.73m2 EGFR, calc. for ages 18 and older using the MDRD formula (not corrected for weight), is valid for stable renal function. Performed By: #### B MP #### [facility] [address] [place] [address] Glucose [Mass/Vol] 84 mg/dL Normal 70-99 [facility] Comment on above: Performed By: #### B MP #### [facility] [address] [place] [address] Potassium [Moles/Vol] 4.6 mmol/L Normal 3.4-4.9 [facility] Comment on above: Performed By: #### B MP #### [facility] [address] [place] [address] Sodium [Moles/Vol] 137 mmol/L Normal 135-144 [facility] Comment on above: Performed By: #### B MP #### [facility] [address] [place] [address] Urea nitrogen [Mass/Vol] 31 mg/dL Critically high 6-20 [facility] Comment on above: Performed By: #### B MP #### [facility] [address] [place] [address] CBC With Platelet No Differe ntialon 05-03-2020 Erythrocyte distribution width (RBC) [Ratio] 14.3 % Normal 11.5-14.5 [facility] Comment on above: Performed By: #### C BCND #### [facility] [address] [place] [address] Hematocrit (Bld) [Volume fraction] 41.3 % Normal 37.0-47.0 [facility] Comment on above: Performed By: #### C BCND #### [facility] [address] [place] [address] Hemoglobin (Bld) [Mass/Vol] 13.6 g/dL Normal 12.0-16.0 [facility] Comment on above: Performed By: #### C BCND #### [facility] [address] [place] [address] MCH (RBC) [Entitic mass] 30.7 pg Normal 27.0-31.3 [facility] Comment on above: Performed By: #### C BCND #### [facility] [address] [place] [address] MCHC (RBC) [Mass/Vol] 33.0 % Normal 33.0-37.0 [facility] Comment on above: Performed By: #### C BCND #### [facility] [address] [place] [address] MCV (RBC) [Entitic vol] 92.9 fL Normal 82.0-100.0 [facility] Comment on above: Performed By: #### C BCND #### [facility] [address] [place] [address] Platelets (Bld) [#/Vol] 241 10*3/uL Normal 130-400 [facility] Comment on above: Performed By: #### C BCND #### [facility] [address] [place] [address] RBC (Bld) [#/Vol] 4.44 10*6/uL Normal 4.20-5.40 [facility] Comment on above: Performed By: #### C BCND #### [facility] [address] [place] [address] WBC (Bld) [#/Vol] 11.0 10*3/uL Critically high 4.8-10.8 [facility] Comment on above: Performed By: #### C BCND #### [facility] [address] [place] [address] COVID-19, NAAon 05-03-2020 Source Swab Anterior nares Normal [facility] Comment on above: Performed By: #### I RCOV ####[facility] [place] [phone] Partial Thromboplastin Timeo n 05-03-2020 aPTT Coag (Bld) [Time] 31.3 s Normal 24.4-36.8 [facility] Comment on above: Performed By: #### P TT #### [facility] [address] [place] [address] Prothrombin Timeon 0 INR Coag (PPP) [Relative time] 0.9 {INR} Normal [facility] Comment on above: Performed By: #### P T #### [facility] [address] [place] [address] PT Coag (PPP) [Time] 11.9 s Low 12.3-14.9 [facility] Comment on above: Performed By: #### P T #### [facility] [address] [place] [address] Type and Screen Capture 3 sc rn cellon 05-03-2020 Type and Screen Capture 3 scrn cell PATIENT: JOSHUA Doss LOC: [facility] BILL# : [id number] : 1970 SEX: F ORDERED BY: STEPHANIE Harrison ORDERED : 05/03/2020 14:14 COLLECTED: 05/03/2020 14:14 ORDER : [id number] RECEIVED : 05/03/2020 19:43 TEST NAME RESULT UNITS RANGES ABN FL ST ABORH Capture O POS F Antibody 3 Cell Scrn u NEG F Normal [facility] Comment on above: Performed By: #### T S3C #### [facility] [address] [place] [id number] Established Visit (Orthopaed ic Surgery)on 04-26-2020 Established [...] biceps. No pain with resisted elbow flexion. Clinical Nurse Educator strength 5/5 Elbow flexion 5/5. Shoulder [...] Chiara Espinosa PA-C Department of Orthopaedic Surgery [facility] Dictation performed with the use of [...] scans evaluated by the musculoskeletal radiologist at [facility] I will call the patient back with [...] her light touch sensation is grossly intact. Clinical Nurse Educator strength is 5/5 elbow flexion 5/5 [...] 97.52 kg Gayle Washington MD Work Phone: [facility] [place] 12-12-2021 10:43-0400 Diastolic blood pressure 87 mm[Hg] Gayle Washington MD Work Phone: [facility] 12-12-2021 10:43-0400 Heart rate 88 /min Gayle Washington MD Work Phone: [facility] 12-12-2021 10:43-0400 Systolic blood pressure 125 mm[Hg] Gayle Washington MD Work Phone: [facility] 10-14-2021 10:30-0400 Diastolic blood pressure 80 mm[Hg] Emmett [address]ner Other [facility] Other 10-14-2021 10:30-0400 SaO2% (BldA) [Mass fraction] 98 % Emmett Brunner Other [facility] Other 10-14-2021 10:30-0400 Systolic blood pressure 130 mm[Hg] Emmett Brunner Other [facility] Other 07-01-2021 15:30-0500 Body weight 94.62 kg Lettyra Olson Other [facility] Other 07-01-2021 15:30-0500 Diastolic blood pressure 78 mm[Hg] Lettyra Olson Other [facility] Other 07-01-2021 15:30-0500 Respiratory rate 18 /min Lettyra Olson Other [facility] Other 07-01-2021 15:30-0500 SaO2% (BldA) [Mass fraction] 98 % Letty Wesley Other [facility] Other 07-01-2021 15:30-0500 Systolic blood pressure 118 mm[Hg] Letty Wesley Other [facility] Other 06-18-2021 15:45-0500 Diastolic blood pressure 90 mm[Hg] Emmettarmani Brunner Other [facility] Other 06-18-2021 15:45-0500 SaO2% (BldA) [Mass fraction] 97 % Emmett Kannan Other [facility] Other 06-18-2021 15:45-0500 Systolic blood pressure 122 mm[Hg] Emmett Kannan Other [facility] Other 05-15-2021 17:30-0500 Body weight 92.53 kg Emmett Kannan Other [facility] Other 05-15-2021 17:30-0500 Diastolic blood pressure 80 mm[Hg] Emmett Kannan Other [facility] Other 05-15-2021 17:30-0500 Systolic blood pressure 130 mm[Hg] Emmett Kannan Other [facility] Other 04-02-2021 14:30-0400 Body weight 92.63 kg Emmett Kannan Other [facility] Other 04-02-2021 14:30-0400 Diastolic blood pressure 88 mm[Hg] Emmett Kannan Other [facility] Other 04-02-2021 14:30-0400 SaO2% (BldA) [Mass fraction] 98 % Emmett Brunner Other [employer] [facility] Other 04-02-2021 14:30-0400 Systolic blood pressure 140 mm[Hg] Emmett Brunner Other [employer] Other Encounters Encounter Date Encounter Type Care Provider Facility Start: 05-04-2024 End: 05-04-2024 ambulatory ANASTASIIAPAULINAIsaias [facility] Start: 04-10-2024 End: 04-10-2024 ambulatory Rosibel Cotton MD Facility: [facility] Start: 02-07-2024 End: 02-07-2024 ambulatory Rosibel Cotton MD Facility: [facility] Start: 02-03-2024 End: 02-03-2024 ambulatory NANCY Christiansen [facility] Start: 01-25-2024 End: 01-25-2024 ambulatory [facility] Start: 01-24-2024 End: 01-24-2024 ambulatory Rosibel Cotton MD Facility: [facility] Start: 01-12-2024 End: 01-12-2024 ambulatory NICOLE TELLES [facility] Start: 01-12-2024 Encounter for other preprocedural examination [facility] Start: 12-20-2023 End: 12-20-2023 ambulatory Rosibel Cotton MD Facility: [facility] Start: 11-02-2023 End: 11-02-2023 ambulatory TIM [facility] Start: 10-29-2023 End: 10-29-2023 ambulatory IZABEL LARA Not Available Start: 10-28-2023 End: 10-28-2023 ambulatory CLIFFORD VANN Not Available Start: 10-26-2023 End: 10-26-2023 ambulatory [facility] Start: 10-25-2023 End: 10-25-2023 ambulatory Rosibel Cotton MD Facility:[facility] Start: 09-20-2023 End: 09-20-2023 ambulatory Rosibel Cotton MD Facility:[facility] Start: 09-13-2023 End: 09-13-2023 Subsequent hospital visit by physician [facility] Comment on above: Flatulence, eructati on and gas pain Start: 09-13-2023 End: 09-13-2023 ambulatory NICOLE Katrina [facility] Start: 09-13-2023 Encounter for other preprocedural examination [facility] Start: 07-26-2023 End: 07-26-2023 ambulatory KIMBERLEY GIBBONS Not Available Start: 06-22-2023 End: 06-22-2023 ambulatory SOLITARIO [facility] Start: 06-18-2023 End: 06-18-2023 ambulatory KIMBERLEY BARAJASE Not Available Start: 05-11-2023 End: 05-12-2023 ambulatory JESSIE FRANKLIN Not Available Start: 04-07-2023 ambulatory Gayle Washington MD Work Phone: Rheumatology Comment on above: Fax info Start: 10-16-2022 Encounter for preprocedural cardiovascular examination DR ULISES TIM [facility] Start: 10-16-2022 Encounter for preprocedural laboratory examination DR ULISES ITM [facility] Start: 10-13-2022 End: 10-13-[address] ULISES [...] Pain Management Start: 12-12-2021 End: 12-13-2021 ambulatory [employer] Other Start: 12-12-2021 End: 12-12-2021 Patient encounter [...] 10-29-2021 Chart Update Cristobal miller Work Phone: [id number] Work Phone: Start: 10-14-2021 End: 10-14-2021 ambulatory Emmett [facility] Other [facility] Other Start: 10-14-2021 Patient encounter procedure Emmett Brunner [facility] Start: 09-23-2021 End: 09-23-2021 ambulatory Emmett [facility] Other [facility] Other Start: 09-23-2021 Telephone encounter Emmett Brunner [facility] Start: 07-01-2021 End: 07-01-2021 ambulatory Lettyra Olosn Other [facility] Other Start: 07-01-2021 Office outpatient vi sit 25 minutes Letty Wesley [facility] Start: 06-26-2021 (Procedure) Short Emmett Brunner [facility] Start: 06-26-2021 End: 06-26-2021 ambulatory Emmett Brun[facility] Other [facility] Other Start: 06-18-2021 End: 06-18-2021 ambulatory Emmett Brunner Other [facility] Other Start: 06-18-2021 Office outpatient vi sit 25 minutes Emmett Brunner [facility] Start: 06-18-2021 Telephone encounter Emmett Brunner [facility] Start: 06-04-2021 End: 06-04-2021 Subsequent hospital visit by physician [facility] Comment on above: Chronic hip pain, bi lateral [M25.551, M25.552, G89.29] Start: 05-21-2021 (Procedure) Short Emmett Brunner [facility] Start: 05-21-2021 End: 05-21-2021 ambulatory Emmett Brunner Other [facility] Other Start: 05-15-2021 End: 05-15-2021 ambulatory Emmett Brunner Other [facility] Other Start: 05-15-2021 Office outpatient vi sit 25 minutes Emmett Brunner [facility] Start: 04-30-2021 (Procedure) Short Emmett Brunner [facility] Start: 04-16-2021 (Procedure) Short Emmett Brunner [facility] Start: 04-02-2021 Office outpatient vi sit 25 minutes Emmett Brunner [facility] Start: 02-21-2021 Office outpatient vi sit 15 minutes Cristobal Tomas Work Phone: [id number] Work Phone: Start: 06-25-2020 End: 06-27-2020 Evaluation and management of inpatient [facility] Start: 06-25-2020 End: 06-28-2020 Patient encounter procedure [facility] Start: 06-18-2020 End: 06-23-2020 Patient encounter procedure [facility] Start: 05-09-2020 End: 05-09-2020 Patient encounter procedure [facility] Procedures Date Procedure Procedure Detail Performing Clinician Start: 09-13-2023 Assay of gammaglobul in iga igd igg igm each Nicole Telles [employer] - [employer]ICAL RIGGER Work Phone: Start: 06-04-2021 Radex hips bilateral with pelvis minimum 5 views Gayle Washington MD Work Phone: Start: 06-17-2020 Mammography Gayle jeffries MD Work Phone: Start: 06-09-2018 Lipid 1996 panel - S willian or Plasma Gayle Washington MD Work Phone: Plan of Treatment Date Care Activity Detail Author Start: 12-12-2024 DIABETES SCREEN DIABETES SCREEN [facility] Start: 12-12-2024 Diabetes Screening Diabetes Screening [facility] Start: 07-01-2024 Screening for malignant neoplasm of breast Breast cancer screen [facility] Start: 02-03-2024 End: 02-03-2024 Admission to same day surgery center 02/03/2024 8:45 AM EDT - 02/03/2024 9:05 AM EDT Surgery [facility] [address] [place] [id number] Nancy Ludwig MD [address] [place] [id number] ESOPHAGOGASTRODUODENOSCOPY [facility] Comment on above: ESOPHAGOGASTRODUODENOSCOPY Start: 02-03-2024 End: 02-03-2024 Esophagogastroduodenoscopy transoral diagnostic ESOPHAGOGASTRODUODENOSCOPY Chronic GERD 02/03/2024 8:45 AM EDT [facility] Start: 02-03-2024 Subsequent hospital visit by physician 02/03/2024 8:45 AM EDT Hospital Encounter [facility] [address] [place] [address] [id number] Nancy Ludwig MD [address] [place] [id number] [facility] Start: 07-05-2023 Annual Wellness Visit (Medicare Advantage) Annual Wellness Visit (Medicare Advantage) [facility] Start: 06-09-2023 Lipid 1996 panel - Serum or Plasma Lipid Screening [facility] Start: 06-09-2023 LIPID SCREEN LIPID SCREEN [facility] Start: 03-05-2023 COVID-19 Vaccine ( season) COVID-19 Vaccine ( season) [facility] Start: 03-05-2023 Influenza vaccination [facility] Start: 02-02-2023 Influenza vaccination Flu vaccine (#1) [facility] Start: 07-05-2022 DEPRESSION ASSESSMENT DEPRESSION ASSESSMENT [facility] Start: 03-19-2022 End: 12-17-2022 25-hydroxyvitamin D3 [Mass/volume] in Serum or Plasma VITAMIN D 25 HYDROXY Lab Routine Vitamin D deficiency Expected: 03/19/2022 (Approximate), Expires: 12/17/2022 [facility] Work Phone: Comment on above: Expected: 03/19/2022 (Approximate), Expi res: 12/17/2022 Start: 03-05-2022 Influenza vaccination [facility] Start: 08-21-2021 COVID-19 VACCINE (2 - Booster for Barbara series) COVID-19 VACCINE (2 - Booster for Barbara series) [facility] Start: 07-05-2021 DEPRESSION ASSESSMENT DEPRESSION ASSESSMENT [facility] Start: 06-17-2021 Mammography [facility] Start: 2018 Shingles vaccine (1 of 2) Shingles vaccine (1 of 2) [facility] [employer] [facility] Start: 2018 SHINGRIX VACCINE (1 of 2) SHINGRIX VACCINE (1 of 2) [facility] Start: 2013 COLOGUARD (FIT-DNA) COLOGUARD (FIT-DNA) [facility] Start: 2013 Colonoscopy COLONOSCOPY [facility] Start: 2013 COLORECTAL CANCER SCREENING COLORECTAL CANCER SCREENING [facility] Start: [address] COLONOGRAPHY [facility] Start: 2013 FECAL OCCULT BLOOD FECAL OCCULT BLOOD [facility] [place] Start: 2013 Screening for malignant [facility]oplasm of [facility] Start: 2013 SIGMOIDOSCOPY SIGMOIDOSCOPY [facility] Start: 1998 HPV TESTING HPV TESTING [facility] Start: 1989 PAP TESTING PAP TESTING [facility] Start: 1987 DTaP/Tdap/Td vaccine (1 - Tdap) DTaP/Tdap/Td vaccine (1 - Tdap) [facility] Start: 1987 Urine microalbumin profile [facility] Start: 1986 Hepatitis C screening Hepatitis C screen [facility] Start: 1986 HIV SCREENING HIV SCREENING [facility] Start: 1983 HIV screening [facility] screen [facility] Start: 1980 Adult depression screening assessment DEPRESSION SCREENING [facility] Start: 1980 Depression Screen Depression Screen [facility] Start: 1978 Lipid panel Lipids [facility] Start: 1974 PNEUMOCOCCAL (1 - PCV) PNEUMOCOCCAL (1 - PCV) [facility] Start: 1974 Pneumococcal 0-64 years Vaccine (1 - PCV) Pneumococcal 0-64 years Vaccine (1 - PCV) [facility] Start: 1974 Pneumococcal vaccination Pneumococcal Vaccine (1 - PCV) [facility] Start: 1968 HEPATITIS B (1 of 3 - 3-dose series) HEPATITIS B (1 of 3 - 3-dose series) [facility] Start: 1968 Hepatitis B Vaccine (1 of 3 - 3-dose series) Hepatitis B Vaccine (1 of 3 - 3-dose series) [facility] Celiac Disease Panel Celiac Dise ase Panel Lab Routine Flatulence, eructation and gas pain 09/13/2023 4:20 PM EDT [facility] End: 09-13-2023 H. pylori antigen [facility] Comment on above: Once for 1 Occurrences starting 09/13/19 until 09/13/2023 End: 09-13-2023 H. Pylori Antigen, Stool H. Pylori Antigen, Stool Lab Routine Flatulence, eructation and gas pain 1 Occurrences starting 09/13/2023 until 09/13/2023 [facility] Work Phone: Comment on above: 1 Occurrences starting 09/13/2023 until 09/13/2023 Immunizations Immunization Date Immunization Notes Care Provider Sabina brumfield 04-06-2019 influenza, injectabl e, quadrivalent, preservative free Cristobal Tomas Work Phone: [id number] Work Phone: 04-06-2019 influenza virus vaccine, unspecified formulation Gayle Washington MD Work Phone: [facility] 05-15-2016 seasonal influenza, intradermal, preservative free Cristobal Tomas Work Phone: [facility] Payers Date Payer Category Payer Unknown 2021 Unknown ARNOLD ARNOLD HI X [id number] 2021-Present [phone] [address] [address] [place] [address] O [id number] 2020 Private Health Insurance [facility] [employer] [id number] 2020-2021 [address] [address] [place] [address] PPO [id number] 2018 Unknown [id number] 2.16.840.1.446735.19 2017 Unknown [id number] 1968 Unknown [id number] 2.16.840.1.862946.3.579.2 .182 1968 Unknown [id number] 2.16.840.1.507254.3.579.2 .182 1968 Unknown [id number] 2.16.840.1.853752.3.579.2 .182 1968 Unknown [id number] 2.16.840.1.341381.3.579.2 .182 1968 Unknown [id number] 2.16.840.1.920981.3.579.2 .182 1968 Unknown [id number] 2.16.840.1.110305.3.579.2 .593 1968 Unknown [id number] 2.16.840.1.234522.3.579.2 .593 1968 Unknown [id number] 2.16.840.1.089883.3.579.2 .593 1968 Unknown [id number] 2.16.840.1.935671.3.579.2 .593 1968 Unknown [id number] 2.16.840.1.828143.3.579.2 .593 1968 Unknown [id number] 2.16.840.1.045884.3.579.2 .593 1968 Unknown [id number] 2.16.840.1.978366.3.579.2 .593 1968 Unknown [id number] 2.16.840.1.888588.3.579.2 .593 1968 Unknown [id number] 2.16.840.1.671418.3.579.2 .593 1968 Unknown [id number] 2.16.840.1.787584.3.579.2 .593 1968 Unknown [id number] 2.16.840.1.659965.3.579.2 .593 1968 Unknown [id number] 2.16.840.1.640519.3.579.2 .1259 1968 Unknown [id number] 2.16.840.1.404579.3.579.2 .1259 1968 Unknown [id number] 2.16.840.1.007954.3.579.2 .1259 1968 Unknown [id number] 2.16.840.1.775819.3.579.2 .1259 1968 Unknown [id number] 2.16.840.1.257139.3.579.2 .1259 1968 Unknown [id number] 2.16.840.1.693468.3.579.2 .1259 1968 Unknown [id number] 2.16.840.1.748980.3.579.2 .1259 1968 Unknown [id number] 2.16.840.1.427629.3.579.2 .173 1968 Unknown [id number] 2.16.840.1.263122.3.579.2 .173 1968 Unknown [id number] 2.16.840.1.311869.3.579.2 .173 1968 Unknown [id number] 2.16.840.1.879547.3.579.2 .173 1968 Unknown [id number] 2.16.840.1.470231.3.579.2 .196 1968 Unknown [id number] 2.16.840.1.977481.3.579.2 .196 1968 Unknown [id number] 2.16.840.1.651404.3.579.2 .196 1968 Unknown [id number] 2.16.840.1.822512.3.579.2 .196 1968 Unknown [id number] 2.16.840.1.700072.3.579.2 .196 1968 Unknown [id number] 2.16.840.1.448084.3.579.2 .196 Social History Date Type Detail Facility Start: 06-04-2021 End: 09-08-2023 Tobacco smoking status MIIS Smokes tobacco daily [facility] History of tobacco use Cigarette Smoker [facility] Start: 05-03-2020 End: 06-04-2021 Cigarettes smoked current (pack per day) - Reported 1 [facility] Start: 06-04-2021 End: 09-08-2023 Tobacco use and exposure Smokeless tobacco non-user [facility] Start: 12-12-2021 End: 09-08-2023 Alcohol intake Current drinker of alcohol (finding) [facility] Start: 06-04-2021 History SDOH Alcohol Comment rarely. [facility] Start: 1970 Sex Assigned At Not on file [facility] Start: 11-29-2021 End: 12-09-2021 Exposure to SARS-CoV-2 (event) Unable to assess [facility] Start: 05-03-2020 End: 06-05-2021 Sex Assigned At [facility] Other Start: 05-05-2021 End: 06-04-2021 Exposure to SARS-CoV-2 (event) Not sure [facility] National Score (1-100), lower number is lower risk 95 [facility] (I/We) worried whether (my/our) food would run out before (I/we) got money to buy more. Never true [facility] Start: 09-08-2023 Tobacco Comment intermittently since 15 [facility] Start: 05-03-2020 Alcohol Comment hardly ever [facility] Medical Equipment Procedure Code Equipment Code Equipment Original Text Equipment Identifier Dates Impl Alena Spine R michael Ti35 Mm 55 Mm [id number] Start: 06-25-2020 Graft Spnl W11xh [id number] Corticocancellous Lord Triad - [id number] Start: 05-09-2020 Plate Spnl L28mm Antr Cerv 1 Lev Translational [place] Acp [id number] Start: 05-09-2020 Screw Spnl L13mm Dia4mm Ant Cerv [facility] Ang Compr [place] Acp [id number] Start: 05-09-2020 Connector Spnl C rss Lo Prof Adj Reline-O 5.5 X 45-65 Mm [id number] Start: 06-25-2020 Screw Spnl Dia5. 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 AM stiffness lasts 1-2 hrs (was 2-3 hr prior),, on average daily. Denies joint erythema, swelling, warmth. Comprehensive History: Patient Active Problem List Diagnosis Chest pain, atypical Benign essential HTN HOFFMAN (dyspnea on exertion) Fibromyalgia Elevated d-dimer Mixed hyperlipidemia GERD without esophagitis Orthopnea Sleep disturbances Abnormal nuclear stress test Unstable angina ([facility]) Coronary artery disease involving [place] coronary artery of [place] heart without angina pectoris Degenerative joint disease [...] 80 mg ta (more content not included)... [facility] 11-02-2023 Note ecg [facility] 11-02-2023 Note Cardiovascular Medic ine [facility] SUBJECTIVE Chief Complaint Patient presents with [...] Unstable angina (CMS/HCC) Coronary artery disease involving [place] coronary artery of [place] heart without angina pectoris Degenerative joint disease [...] , Rfl: o (more content not included)... 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 AM stiffness lasts 1-2 hrs (was 2-3 hr prior), on average daily. Denies joint erythema, swelling, warmth. Comprehensive History: Patient Active Problem List Diagnosis Chest pain, atypical Benign essential HTN HOFFMAN (dyspnea on exertion) Fibromyalgia Elevated d-dimer Mixed hyperlipidemia GERD without esophagitis Orthopnea Sleep disturbances Abnormal nuclear stress test Unstable angina ([facility]) Coronary artery disease involving [place] coronary artery of [place] heart without angina pectoris Degenerative joint disease [...] Chronic pain disorder Depression Factor V Leiden ([facility]) Fibromyalgia, primary GERD (gastroesophageal reflux [...] 400 mg capsul (more content not included)... [facility] 10-26-2023 Note PT STATE SHE HAS BEE N DIZZY RECENTLY PT STATES TAKES MEDS TO MANAGE DEPRESSION SX [facility] 06-22-2023 Note Attestation signed by [...] subchondral sclerosis noted on fist [facility] joints [facility] Follow-up Patient Visit Subjective [...] disturbances Abnormal nuclear stress test Unstable angina ([facility]) Coronary artery disease involving [place] coronary artery of [place] heart without angina pectoris Degenerative joint disease [...] the morning. aspirin (more content not included)... [facility] 04-07-2023 Miscellaneous Notes Notify patient [...] faxed with confirmation. documented in this encounter [facility] 10-13-2022 Note OPERATIVE NOTE OPERATION DATE: 10/13/2022 [...] left cheek was prepped with Betadine. A [place] tip Bovie was then used to make [...] the recovery room in good condition. [facility] 10-07-2022 Note EXAM: XR CHEST 2 V HISTORY: Pre-surgery evaluation COMPARISON: None. TECHNIQUE: PA and lateral views of the chest. FINDINGS: The cardiomediastinal silhouette is normal. No focal consolidation is identified. There is no pneumothorax. No pleural effusion is noted. The osseous structures are intact. IMPRESSION: No acute cardiopulmonary process. Electronically authenticated by: JOSIAH WILKS Date: 2022-10-07 11:27 [facility] 07-23-2022 Note CONSULTATION CONSULTATION DATE: 07/23/2022 [...] Patient does agree with this plan. [facility] 06-11-2022 Note CONSULTATION CONSULTATION DATE: 06/11/2022 [...] q.h.s. 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 [facility] 05-18-2022 Miscellaneous Notes Patient's request for medication is as follows: Requested Prescriptions Signed Prescriptions Disp Refills celecoxib (CELEBREX) 200 mg capsule 180 capsule 3 Sig: Take 1 capsule by mouth twice daily. Prescription(s) as above. Please process accordingly. Gayle Washington MD Mychart message sent to patient reminding her to [...] Lab Orders Expected Expires Ordered HLA-B27 PCR [[id number]] 06/19/21 06/18/22 06/18/21 Auth. provider: Gayle Washington MD Assoc. diagnoses: Elevated sedimentation rate VITAMIN D 25 HYDROXY [SQVITD] 03/19/22 12/17/22 12/17/21 Auth. provider: Gayle Washington MD Assoc. diagnoses: Vitamin D deficiency documented in this encounter [facility] 04-16-2022 Note CONSULTATION PROCEDURE DATE: 04/16/2022 The [...] the clinic in three months' time. [facility] 04-09-2022 Note CONSULTATION CONSULTATION DATE: 04/09/2022 [...] to the clinic for her injection. [facility] 01-01-2022 Note CONSULTATION CONSULTATION DATE: 01/01/2022 This is a pleasant 51-year-old female returning to the clinic status post #2 bilateral MBB on C3, C4 and C5 that afforded her 80% relief for 5 days. 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 [facility] Signed and Approved by: BEN MONROE . 01/08/2022 10:22:00 [facility] 12-17-2021 Miscellaneous Notes Pt aware. Kamryn Luna [...] superior labral tear; documented in this encounter [facility] 12-12-2021 Note HNO ID: [id number] Author: Gayle Washington MD Service: ? Author [...] flat ground knees give out. COVID vaccine Five Below 06/26/21. Feels safe at home. 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 clinic for nursing home pain recommendations/injections, prn acetaminophen, start prn heat/ice/otc arthritis creams, low impact weightbearing exercise as tolerated, avoid aggravating triggers,supportive care, start flexeril/notify office if not tolerated, improved with mobic, see ortho/pain clinic for nursing home pain recommendations/injections, prn acetaminophen, start prn [...] yes Dactylitis: no H/o precedent/frequent infection(s): no Enthesopathy/Rowe's/heel/plant ar tenderness: as above Skin thickening, psoriasis, photosensitivity, purpura: no Nail changes: ridges/ripples Alpecia, patchy: no Eye inflammation: glasses, R retinal hole SICCA: dry eyes Oral/nasal/genital ulcers: no GI problems-diarrhea/bleeding/IBD/Gl uten intolerence/Dysphagia: gerd Raynaud's phenomenon/digital ulcers: no Organ inv-Serositis: no Lung disease/ILD: no Myopathy/proximal muscle weakness: no Abnormal Urine or urethritis: no Renal/liver disease: no 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 [facility] 12-12-2021 History of Present illness Narrative Face to face follow up for joint pain/ osteoarthritis/ chronic pain syndrome Today's visit 6/10/22:taking mobic no longer working. Wants to retry [...] flat ground knees give out. COVID vaccine Five Below 06/26/21. Feels safe at home. 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 COVID vaccine Five Below 06/26/21. Feels safe at home. Has enough food, supplies and medications. Overall uncomfortable but happy with rheum care. = supportive care, start celebrex/notify office if not tolerated, OFF mobic/initially improved with medication but now effect wore off, prn flexeril, see pain clinic for meterman pain recommendations, see ortho/pain clinic for meterman pain recommendations/injections, prn acetaminophen, start prn heat/ice/otc [...] to side effects OFF lyrica no response nursing home pain recommendations per primary care provider/pain [...] video & audio (virtual) or phone or [id number] patient care, completing clinical documentation, obtaining and/or [...] Leora Gibbons DO documented in this encounter [facility] 12-12-2021 Instructions Gayle Washington MD - 12/12/2021 [...] to side effects OFF lyrica no response nursing home pain recommendations per primary care provider/pain clinic nonfasting labs as scheduled Thank you. documented in this encounter [facility] 12-09-2021 Miscellaneous Notes Patient has been scheduled as requested for 12/12/21. Referral has been attached. I spoke with Ms. Garcia and she is aware of all of the appointment details. Nataliya DYKES December 09, 2021 2:43 PM Patient calling to schedule follow up appt with Dr Washington no schedule pulling for [facility] only Hilda. Patient requesting call at [phone] Washington is still at [facility]. Please advise. documented in this encounter [facility] 11-18-2021 Note PAIN MANAGEMENT CONS ULTATION CONSULTATION DATE: 11/18/2021 CHIEF COMPLAINT: Cervical pain. HISTORY OF PRESENT ILLNESS: This is a 51-year-old female who had, in the past, been seen by Dr. Brunner, Pain Management in [place], [place]. The patient had changed her insurances to [employer] and, as such, Dr. Brunner does not [...] cervical fusion [place] [address] Femi Rosario. Bulging disc with [...] like to proceed. CC: Kimberley Gibbons D.O. [facility] Signed and Approved by: DR RACHEL STOCK . 11/25/2021 12:22:00 [facility] 10-14-2021 Evaluation note Encounter Date Diagnosis [...] nerve block in the future if needed. [facility] 12-28-2021 Evaluation note* Encounter Date Diagnosis [...] right hip to further evaluate her pain. [facility] 12-15-2021 Evaluation note* Encounter Date Diagnosis [...] (ICD-10 - G89.29) Continue medications as prescribed [facility] 11-11-2021 Evaluation note* Encounter Date Diagnosis [...] (ICD-10 - G89.29) Continue medications as prescribed [facility] 09-29-2021 Evaluation note* Encounter Date Diagnosis [...] injection under ultrasound guidance in the future. [facility] Other Evaluation note* Diagnosis Secondary osteoarthritis of [...] Chronic pain syndrome [facility]* Diagnosis Secondary osteoarthritis of multiple sites- Primary Osteoarthrosis involving, or with mention of more than one site, but not specified as generalized, multiple sites Vitamin D deficiency Unspecified vitamin D deficiency Fibromyalgia Mylagia and myositis, unspecified [facility] [place] Diagnosis Secondary osteoarthritis of multiple sites Osteoarthrosis involving, or with mention of more than one site, but not specified as generalized, multiple sites documented in this encounter [facility] note* Diagnosis Chronic hip pain, bilateral Chronic left shoulder pain Pain in joint, shoulder region Chronic pain of both knees Bilateral hand pain Pain in limb documented in this encounter [facility] note* Diagnosis Secondary osteoarthritis of multiple sites Osteoarthrosis involving, or with mention of more than one site, but not specified as generalized, multiple sites Cervicalgia Chronic bilateral low back pain with bilateral sciatica documented in this encounter [facility] note* Diagnosis Flatulence, eructation and gas pain Flatulence, eructation, and gas pain Chronic GERD documented in this encounter [facility] Narrative - Reported* Type Description Date Medical History allergies Medical History factor 5 blood disorder Medical History anxiety Medical History depression Medical History bipolar Medical History lumbar DDD Surgical History back surgery 06/2021 Surgical History neck surgery 05/2021 Hospitalization History see above [facility] Other History general Narrative - Reported* Type Description Date Medical History allergies Medical History factor 5 blood disorder Medical History anxiety Medical History depression Medical History bipolar Medical History lumbar DDD Medical History osteoarthritis of multiple joint s Surgical History back surgery 06/2021 Surgical History neck surgery 05/2021 Hospitalization History see above [facility] Other History of Present illness NarrativePatient has continued intermittent pain symptoms in her right shoulder she is remotely status post rotator cuff repair she had a follow-up MRI scan recently she would like to review with me today. She had a subacromial injection but it did not resolve all of her symptoms.[id number] Work Phone: Reason for referral (narrative)* Diagnostic Procedure Only (Routine) - Closed Specialty Diagnoses / Procedures Referred By Contac t Referred To Contact XR IMAGING Diagnoses Bilateral hand pain Procedures XR HAND GENERAL 3V PA/LAT/OBL BILATERAL X-RAY HAND MINIMUM 3 VIEWS Gayle Washington MD [address] [place] [address] Xr Imaging Referral ID Status Reason Start Date Expiration Date V isits Requested Visits Authorized [id number] Closed Auto-Generate d Referral 06/04/2021 07/04/2022 1 1 * Diagnostic Procedure Only (Routine) - Closed Specialty Diagnoses / Procedures Referred By Contac t Referred To Contact XR IMAGING Diagnoses Chronic pain of both knees Procedures XR KNEE GENERAL 4V AP BOTH/PA BOTH/LAT/MERC BILATERAL KNEE AP-WGT/LAT/MERCHANT Gayle Washington MD [address] [place] [address] Xr Imaging Referral ID Status Reason Start Date Expiration Date V isits Requested Visits Authorized [id number] Closed Auto-Generate d Referral 06/04/2021 07/04/2022 1 1 * Diagnostic Procedure Only (Routine) - Closed Specialty Diagnoses / Procedures Referred By Contac t Referred To Contact XR IMAGING Diagnoses Chronic left shoulder pain Procedures XR SHOULDER GENERAL 3V OR MORE AP/TRUE AP/OTHER LEFT X-RAY SHOULDER COMPLET MIN 2 VIEWS Gayle Washington MD [address] [place] [address] Xr Imaging Referral ID Status Reason Start Date Expiration Date V isits Requested Visits Authorized [id number] Closed Auto-Generate d Referral 06/04/2021 07/04/2022 1 1 * Diagnostic Procedure Only (Routine) - Closed Specialty Diagnoses / Procedures Referred By Contac t Referred To Contact XR IMAGING Diagnoses Chronic hip pain, bilateral Procedures XR HIP BILATERAL 5V PEL/AP/LAT EACH HIP RADEX HIPS BILATERAL WITH PELVIS MINIMUM 5 VIEWS Gayle Washington MD [address] [place] [address] Xr Imaging Referral ID Status Reason Start Date Expiration Date V isits Requested Visits Authorized [id number] Closed Auto-Generate d Referral 06/04/2021 07/04/2022 1 1 [facility] for visit Narrative* Diagnostic Procedure Only (Routine) - Closed Specialty Diagnoses / Procedures Referred By Margarita t Referred To Contact XR IMAGING Diagnoses Bilateral hand pain Procedures XR HAND GENERAL 3V PA/LAT/OBL BILATERAL X-RAY HAND MINIMUM 3 VIEWS Gayle Washington MD [address] [place] [address] Xr Imaging Referral ID Status Reason Start Date Expiration Date V isits Requested Visits Authorized [id number] Closed Auto-Generate d Referral 06/04/2021 07/04/2022 1 1 [facility] [place] Summary Purpose Family History No Family History [...] Referred By Margarita t Referred To Contact Orthopedics Diagnoses Chronic pain of both knees Chronic right shoulder pain Elbow pain, left Procedures CONSULT TO ORTHOPAEDICS OFFICE/OUTPATIENT NEW HIGH MDM 60-74 MINUTES Gayle Washington MD [address] [place] [address] Referral ID Status Reason Start Date Expiration Date Visits Requested Visits Authorized [id number] Pending Review PCP Requested Referral 12/12/2021 12/12/2022 1 1 Additional Source Comments INFORMATION SOURCE (unrecogn ized section and content) DATE CREATED AUTHOR 06/20/2020 [facility] DATE CREATED AUTHOR AUTHOR'S ORGANIZ ATION 06/27/2020 [facility] [place] DATE CREATED AUTHOR AUTHOR'S ORGANIZ ATION 12/01/2020 [employer] DATE CREATED AUTHOR AUTHOR'S ORGANIZ ATION 02/23/2021 [facility] DATE CREATED AUTHOR AUTHOR'S ORGANIZ ATION 02/23/2021 [employer] DATE CREATED AUTHOR AUTHOR'S ORGANIZ ATION 12/26/2021 [facility] DATE CREATED AUTHOR AUTHOR'S ORGANIZ ATION 07/02/2022 [facility] DATE CREATED AUTHOR AUTHOR'S ORGANIZ ATION 10/08/2022 [facility] DATE CREATED AUTHOR AUTHOR'S ORGANIZ ATION 10/20/2022 [facility] DATE CREATED AUTHOR AUTHOR'S ORGANIZ ATION 10/30/2023 [facility] DATE CREATED AUTHOR AUTHOR'S ORGANIZ ATION 02/05/2024 [facility] DATE CREATED AUTHOR AUTHOR'S ORGANIZ ATION 04/19/2024 [facility] DATE CREATED AUTHOR AUTHOR'S ORGANIZ ATION 05/06/2024 [facility] Source Comments (unrecognize d section and content) In the event this informatio n is protected by the Federal Confidentiality of Alcohol and Drug Abuse Patient Records regulations: The Federal rules restrict any use of the information to criminally investigate or prosecute any alcohol or drug abuse patient.[facility] [place] the event this information is protected by the Federal Confidentiality of Alcohol and Drug Abuse Patient Records regulations: The Federal rules restrict any use of the information to criminally investigate or prosecute any alcohol or drug abuse patient.[facility] [place] the event this information is protected by the Federal Confidentiality of Alcohol and Drug Abuse Patient Records regulations: The Federal rules restrict any use of the information to criminally investigate or prosecute any alcohol or drug abuse patient.[facility] [place] the event this information is protected by the Federal Confidentiality of Alcohol and Drug Abuse Patient Records regulations: The Federal rules restrict any use of the information to criminally investigate or prosecute any alcohol or drug abuse patient.[facility] [place] the event this information is protected by the Federal Confidentiality of Alcohol and Drug Abuse Patient Records regulations: The Federal rules restrict any use of the information to criminally investigate or prosecute any alcohol or drug abuse patient.[facility] [place] the event this information is protected by the Federal Confidentiality of Alcohol and Drug Abuse Patient Records regulations: The Federal rules restrict any use of the information to criminally investigate or prosecute any alcohol or drug abuse patient.[facility] Reason for Visit (unrecogniz ed section and content) Reason Comments Follow Up Pain ongoing generalized pain. Specialty Diagnoses / Procedures Referred By Contac t Referred To Contact RHEUMATOLOGY Diagnoses Follow Up Procedures OFFICE/OUTPATIENT ESTABLISHED MOD MDM 30-39 MIN Follow Up Gayle Washington MD [address] [place] [address] [facility] [address] [place] [address] Referral ID Status Reason Start Date Expiration Date Visits Requested Visits Authorized [id number] Waiting for Response OON/Self Pay Override Patient cleared - OON Required Payment Collected 12/08/2021 03/08/2022 1 1 Reason Comments Appointment Reason Comments Results Care Teams (unrecognized sec tion and content) Double End [employer] Operator Relationship Specialty Start Date End Date Kimberley Gibbons, DO [address] [place] [address] PCP - General Family Practice 06/04/21 Double End [employer] Operator Relationship Specialty Start Date End Date Kimberley Gibbons, DO [address] [place] [address] PCP - General Family Practice 06/04/21 Double End [employer]on Operator Relationship Specialty Start Date End Date Kimberley Gibbons, DO [address] [facility] [place] [address] PCP - General Family Medicine 06/04/21 Double End [employer]on Operator Relationship Specialty Start Date End Date Kimberley Gibbons, DO [address] [place] [address] PCP - General Family Medicine 06/04/21 Double End [employer]on Operator Relationship Specialty Start Date End Date Kimberley Gibbons, DO [address] [place] [address] PCP - General Family Medicine 06/04/21 Double End [employer]on Operator Relationship Specialty Start Date End Date Kimberley Gibbons, DO [address] [place] [address] PCP - General Family Medicine 06/04/21 FOR [...] BE BASED ON THE PRIMARY CLINICAL RECORDS. [facility]. provides no warranty or guarantee of the accuracy or completeness of information in this document.
--- NOTE | 2024-05-18 09:38 | P.CN_ITS ---
Consult Note: HPI Data of Consult Patient: known to practice within the last 3 years Requesting Physician: Stephanie Mike NP Primary Care Provider: Non-Staff Physician, Consult Narrative Reason for consult: chronic neck pain Narrative: Lizbeth Garcia a pleasant 53 year old female presents for evaluation of chronic pain. Patient has a hx of cervical RFAs with Dr Thornton and tailbone RFAs with Dr Caballero. Lumbar spine surgery with lumbosacral fusion per pt L5-Sacral. Patient reporting pain today 6-7/10 sharp aching throbbing on left side of neck. increased with twisting, pushing, pulling, bending. improved with bracing and ice. noticing increase in LUE numbness tingling over the last few weeks, previously found benefit to medrol dose pack. failed to benefit from HEP greater than 6 weeks. cc:: CC: Stephanie Mike NP Review of Systems ROS Status of ROS 10 or more systems reviewed and unremark able except as noted in history and below Musculoskeletal Reports: neck pain and extremity pain PFSH PFSH Medical History Former cigarette smoker ?Z87.891 - Personal history of nicotine dependence (ICD-10) Heartburn ?R12 - Heartburn (ICD-10) Acid reflux ?K21.9 - Gastro-esophageal reflux disease without esophagitis (ICD-10) Osteoarthritis ?M19.90 - Unspecified osteoarthritis, unspecified site (ICD-10) Low back pain ?M54.50 - Low back pain, unspecified (ICD-10) Factor 5 Leiden mutation, heterozygous ?D68.51 - Activated protein C resistance (ICD-10) Anxiety ?F41.9 - Anxiety disorder, unspecified (ICD-10) Obesity ?E66.9 - Obesity, unspecified (ICD-10) Diabetes ?E11.9 - Type 2 diabetes mellitus without complications (ICD-10) SOB (shortness of breath) ?R06.02 - Shortness of breath (ICD-10) High cholesterol ?E78.00 - Pure hypercholesterolemia, unspecified (ICD-10) Hypertension ?I10 - Essential (primary) hypertension (ICD-10) Irregular heart beat ?I49.9 - Cardiac arrhythmia, unspecified (ICD-10) Angina at rest ?I20.89 - Other forms of angina pectoris (ICD-10) Surgical History H/O arthroscopic knee surgery ?Z98.890 - Other specified postprocedural states (ICD-10) H/O lumbosacral spine surgery ?Z98.890 - Other specified postprocedural states (ICD-10) H/O cervical spine surgery ?Z98.890 - Other specified postprocedural states (ICD-10) H/O arthroscopy of shoulder ?Z98.890 - Other specified postprocedural states (ICD-10) H/O carpal tunnel repair ?Z98.890 - Other specified postprocedural states (ICD-10) H/O: hysterectomy ?Z90.710 - Acquired absence of both cervix and uterus (ICD-10) Meds Home Medications and Allergies Home Medications ?Medication ?Instructions ?Recorded ?Confirmed ?Type B-complex with vitamin C 1 tab PO DAILY 08/26/23 02/07/24 History acetaminophen 500 mg tablet 1,500 mg PO DAILY PRN pain 08/26/23 02/07/24 History (Tylenol Extra Strength) amlodipine 5 mg tablet 5 mg PO DAILY 08/26/23 02/07/24 History aspirin 81 mg capsule 81 mg PO DAILY 08/26/23 02/07/24 History atorvastatin 80 mg tablet 80 mg PO DAILY 08/26/23 02/07/24 History celecoxib 400 mg capsule (Celebrex) 400 mg PO BID 08/26/23 02/07/24 History cholecalciferol (vitamin D3) 50 50 mcg PO DAILY 08/26/23 02/07/24 History mcg (2,000 unit) capsule clonazepam 0.5 mg tablet 0.5 mg PO BID 08/26/23 02/07/24 History cyclobenzaprine 10 mg tablet 10 mg PO BID 08/26/23 02/07/24 History desvenlafaxine succinate 100 mg 100 mg PO DAILY 08/26/23 02/07/24 History tablet,extended release 24 hr (Pristiq) ezetimibe 10 mg tablet 10 mg PO DAILY 08/26/23 02/07/24 History lamotrigine 300 mg tablet,extended 300 mg PO DAILY 08/26/23 02/07/24 History release 24 hr magnesium glycinate PO 08/26/23 History metoprolol succinate 25 mg 25 mg PO DAILY 08/26/23 02/07/24 History tablet,extended release 24 hr quetiapine 200 mg tablet 200 mg PO DAILY 08/26/23 02/07/24 History gabapentin 300 mg capsule 300 mg PO DAILY #30 caps 03/30/24 Rx Allergies Allergy/AdvReac Type Severity Reaction Status Date / Time ibuprofen AdvReac Mild Verified 10/25/23 08:09 tramadol AdvReac Mild Verified 10/25/23 08:09 Exam Constitutional Documenting provider has reviewed patient's vital signs: yes Common normals: no apparent distress, oriented x3, healthy appearing, alert and well nourished General appearance: cooperative HENMT Common normals: normocephalic, hearing grossly normal bilaterally and moist oral mucous membranes Head and scalp: normocephalic Eye Common normals: PERRL Pupil: PERRL Neck & C-Spine Common normals: full ROM General: normal visual inspection Cervical spine: cervical ROM normal, pain with cervical ROM and cervical spine tenderness Other: positve spurlings decreased sensation to left C4,5,6 patterb strength 5/4/5 in LUE 5/5 in RUE numbness and tingling midline and left side of neck non tender to greater and lesser occipital nerves Chest Common normals: inspection of chest normal Respiratory Common normals: normal respiratory effort, no retractions and no use of accessory muscles Extremity Common normals: normal to inspection and full ROM Neuro Common normals: oriented x3, CN's II-XII intact bilaterally, moves all extremities, no focal motor deficits, no sensory deficits noted and deep tendon reflexes 2+ bilaterally Sensorium/orientation: alert Motor exam: strength 5/5 throughout and no movement abnormalities noted Psych Common normals: mental status grossly normal, thought process normal, cooperative, affect normal, speech normal and activity/motor behavior normal Speech: normal speech Thought process: normal thought process Results Additional Findings Additional findings: If on a controlled substance or opioids, I have checked an [place] report on this patient and there are no aberrancies noted in the prescribing history.??If on a controlled substance or opioid a drug screen was completed and reviewed within the last year, and if there has not been a drug screen completed we ordered one today to monitor higher risk, state monitored pain medication use. As part of providing excellent, safe, comprehensive care, the following was completed at our patient's visit: 1. A medication reconciliation and review to ensure accurate knowledge of current/active medications, including asking our patients to inform us about any [id number] medications or herbal remedies/nutritional supplements/alternative remedies. 2. A review to specifically ensure our patients have had annual screening for screening for depression, screening for tobacco use, and screening for unhealthy alcohol use. For concerning screenings had a discussion with the patient, provided patient education, and recommended follow-up with primary care provider when appropriate. If patient noted with a risk of falling, they received education on strength, gait, and balance training to prevent future risk of falling. Assessment and Plan Assessment and Plan (1) Cervical radiculopathy: (2) Cervical spondylosis: (3) Myalgia, other site: Plan left C4,5 C5,6 TFESI under fluoroscopy, risks vs benefits reviewed increase gabapentin 300mg TID, risks vs benefits reviewed continue celebrex 100mg BID, denies side effects continue flexeril 10mg BID PRN pain/spasms f/u after injection
== END 2024-05-18 09:28 | disposition home or self-care (01) ==
LOC: PM 09:27
PROVIDERS: Visit Provider Nurse Practitioner
DX: M54.12 Radiculopathy, cervical region (principal); M47.812 Spondylosis without myelopathy or radiculopathy, cervical region; M79.18 Myalgia, other site
CPT/HCPCS: G0463

== ENCOUNTER 2024-06-05 06:36 | Day surgery (SDC) | payer OTHER, SELFPAY ==
--- OUTSIDE RECORDS SUMMARY | 2024-06-05 06:39 | XMS_ITS | CCD ---
Author Organization [facility] Care Team Providers Care Yoke Presser Name Role Phone GENOVEVA, CRISTOBAL F Primary [...] Edwige DO, Kimberley Leora Primary Care Provider [phone] Ememtt Brunner Unavailable Letty Olson Unavailable Edwige DO, [...] Steiner Attending Unavailable KIMBERLEY GIBBONS Attending Unavailable Yury ARGUELLO, Rosibel Laurent Attending Unavailable Yury ARGUELLO, Andrius Laurent Attending Unavailable Yury ARGUELLO, Andrius Laurent Attending Unavailable Yury ARGUELLO, Andrius Laurent Attending Unavailable Yury ARGUELLO, Rosibel Laurent Attending Unavailable Yury ARGUELLO, Rosibel Laurent Attending Unavailable SOLITARIO GARCÍA Attending Unavailable TIM SAMUELS Attending Unavailable DALE HUTCHISON Attending Unavailable SOLITARIO GARCÍA Attending Unavailable SOLITARIO GARCÍA Attending Unavailable NICOLE TELLES Referring Unavailable NICOLE TELLES Referring Unavailable NANCY LUDWIG Admitting Unavailable NANCY LUDWIG Attending Unavailable NICOLE TELLES Referring Unavailable Allergies Allergy Classification Reported Allergen(s) Allergy Type Date of Onset Reaction(s) Facility (9 sources) Ibuprofen; 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: [IBUPROFEN] Drug Allergy 0 Unknown, Diarrhea [facility] (20 sources) traMADol; 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: [TRAMADOL] Drug Allergy 9 Unknown, Nausea Only [facility] (1 source) Ibuprofen Drug Allergy [facility] (1 source) traMADol Drug Allergy 2 [facility] Medications Current Medications Medication Drug [...] on above: Take 1 capsule by mo [facility] twice daily. Take 1 capsule by [facility] two times a day. clonazePAM 0.5 mg [...] daily. 0 Active take 1 tablet by [facility] every twenty-four hours Pristiq 100 MG [...] tablet by mouth 0 12/01/2022 12/01/2023 Active Verona-3 Fatty Acids (FISH OIL) 1200 MG CAPS (1 source) Verona-3 Fatty Ac ids (FISH OIL) 1200 MG [...] Take 0.5 mg by mouth once daily. hhbky-vz-4-bpv-ogy-mitg joey-ast 1,799-685-95-80 mg cap (4 sources) xajga-qv-5-dha-e pa-joey spho-ast 1,921-616-95-80 mg cap Take by mouth. 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; 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: [FDC CURRNT USE ANTICOAGULANTS] Onset: 10-19-2022 Episodic Other [...] 06-25-2020 06-25-2020 Episodic Other aftercare (2 sources) retirement (current) use of non-steroidal anti-inflammatories (NSAID); 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: [retirement (current) use of non-steroidal anti-inflammatories (nsaid)] Onset: [...] Test Name Value Interpretation Reference Range Facility Orders Onlyon 05-17-2024 Orders Only [id number] Nikko Garcia 1970 F Date Provider Department Center 05/17/2024 3848DALE HUTCHISON ALYSA [facility] Family History Problem Relation Age of Onset COPD Mother Coronary artery disease Father 56 Family Status - Relation Status Age at Mother Alive Father Normal [facility] Office Visiton 05-04-2024 Follow-up visit [id number] Nikko Garcia 1970 F Date Provider Department Center 05/04/2024 384DALE HUTCHISON ALYSA [facility] Family History Problem Relation Age of Onset COPD Mother Coronary artery disease Father 56 Family Status - Relation Status Age at Mother Alive Father Level of Service:75611 [place] OFFICE/OUTPATIENT ESTABLISHED LOW MDM 20 MIN Normal [facility] Surgical Pathology Reporton 02-03-2024 Surgical Pathology Report (NOTE) Path Number: [id number] -- Diagnosis -- A. STOMACH, ANTRUM, BIOPSIES: [...] GE JUNCTION BX Gross Description A. LEXI JOSE, GASTRIC ANTRAL BIOPSIES Received in formalin are two rosado-white tissue fragments, 0.2 x 0.1 x 0.1 cm and 0.5 x 0.3 x 0.2 cm. Entirely 1cs. B. LEXI GARCIA, DUODENAL BULB Received in formalin are four rosado-white tissue fragments from < 0.1 to 0.4 cm and are 0.9 x 0.2 x 0.2 cm in aggregate. Entirely 1cs. C. LEXI GARCIA, GE JUNCTION Received in formalin are two rosado-white tissue fragments, < 0.1 cm and are 0.5 x 0.2 x 0.2 cm in aggregate. Entirely 1cs. jj tm David Hough M.D./kb2:02/03/2024 Microscopic Description A-C. Microscopic examination performed. Processing Lab: [place] [id number] Interpretation Performed at [place] [id number] SURGICAL PATHOLOGY CONSULTATION Patient Name: LEXI GARCIA [facility] Rec: [id number] [facility] [employer] [facility] ANATOMIC PATHOLOGY [address] [place] [address]. [place] [id number] [facility] Follow-Upon 01-25-2024 Follow-Up [id number] Jose,C sreedhar 1970 Date Provider Department Center 01/25/2024 SOLITARIO [facility] Family History Problem Relation Age of Onset COPD Mother Coronary artery disease Father 56 Family Status - Relation Status Age at Mother Alive Father Level of Service:84564 [place] OFFICE/OUTPATIENT ESTABLISHED LOW MDM 20 MIN (GC) Reason for Visit and Comments: Follow-up [703509] - 3 mth follow up [facility] Abstracton 11-30-2023 Abstract [id number] Nikko Garcia sreedhar 1970 Date Provider Department Center 11/30/2023 SVITLANA TORRES [facility] Family History Problem Relation Age of Onset COPD Mother Coronary artery disease Father 56 Family Status - Relation Status Age at Mother Alive Father Normal [facility] 36on 11-22-2023 36 Last visit: 10/26/23 Next visit: 01/25/24 CBC: 12/12/21 BMP: 01/21/23 [facility] Refillon 11-20-2023 Refill [id number] Jose,Nikko eli 1970 F Date Provider Department Center 11/20/2023 SOLITARIO ADAMS [facility] Family History Problem Relation Age of Onset COPD Mother Coronary artery disease Father 56 Family Status - Relation Status Age at Mother Alive Father Reason for Visit and Comments: Med Refill [[id number]] [facility] Office Visiton 11-02-2023 Follow-up visit [id number] JoseNikko 1970 F Date Provider Department Center 11/02/2023 TIM [facility] Family History Problem Relation Age of Onset COPD Mother Coronary artery disease Father 56 Family Status - Relation Status Age at Mother Alive Father Level of Service:98056 [place] OFFICE/OUTPATIENT ESTABLISHED MOD MDM 30 MIN Reason for Visit and Comments: Atrial Fibrillation [80] - symptoms Normal [facility] Follow-Upon 10-26-2023 Follow-Up [id number] JoseNikko suarez 1970 Date Provider Department Center 10/26/2023 SOLITARIO ADAMS [facility] Family History Problem Relation Age of Onset COPD Mother Coronary artery disease Father 56 Family Status - Relation Status Age at Mother Alive Father Level of Service:83925 [place] OFFICE/OUTPATIENT ESTABLISHED LOW MDM 20 MIN (GC) Reason for Visit and Comments: Follow-up [[id number]] Normal [facility] Celiac Disease Panelon 09-13 Gliadin Deam Pep IgA 1.9 U/mL Normal <7.0 [facility] Comment on above: Result Comment: CELIAC INTERPRETATION <7.0 Negative 7.0-10.0 Equivocal >10.0 Positive units: U/mL Performed By: #### C ELP #### [address] [address] [employer]almer: Talib Clements MD Gliadin Deam Pep IgG <0.4 Normal <7.0 [facility] Comment on above: Result Comment: CELIAC INTERPRETATION <7.0 Negative 7.0-10.0 Equivocal >10.0 Positive units: U/mL Performed By: #### C ELP #### [address] [address] [employer]ative [employer] Embalmer: Talib Clements MD Tiss Transglutam IgA 0.4 U/mL Normal <7.0 [facility] Comment on above: Result Comment: CELIAC INTERPRETATION <7.0 Negative 7.0-10.0 Equivocal >10.0 Positive units: U/mL Performed By: #### C ELP #### [address] [address] [employer] Embalmer: Talib Clements MD IgA [Mass/Vol] 184 mg/dL Normal 70-400 [facility] Comment on above: Performed By: #### C ELP #### [address] [address] [employer]orative [employer] Embalmer: Talib Clements MD H. pylori Antigenon 09-14-19 24 H. pylori Antigen Specimen Description .FECES Direct Exam NEGATIVE Report Status FINAL 09/14/2023 [facility] Comment on above: Performed By: #### F HPY #### [address] [address] [employer]orative Art Embalmer: Talib Clements MD [facility] [address] [place] [address] Restorative Art Embalmer: David Hough MD Orders Onlyon 08-05-2023 Orders Only [id number] Nikko Garcia 1970 F Date Provider Department Center 08/05/2023 [facility] Family History Problem Relation Age of Onset COPD Mother Coronary artery disease Father 56 Family Status - Relation Status Age at Mother Alive Father Normal [facility] Follow-Upon 06-22-2023 Follow-Up [id number] Nikko Garcia 1970 F Date Provider Department Center 06/22/2023 SOLITARIO ADAMS [facility] Family History Problem Relation Age of Onset COPD Mother Coronary artery disease Father 56 Family Status - Relation Status Age at Mother Alive Father Level of Service:50212 [place] OFFICE/OUTPATIENT ESTABLISHED MOD MDM 30 MIN () Reason for Visit and Comments: Follow-up [[id number]] - Normal [facility] DEXA BONE DENSITYon 05-11-20 23 DEXA BONE [...] 10-07-2022 BASO # 0.0 103/ul Normal 0.0-0.1 [facility] Comment on above: Performed By: #### C BC #### [facility] [address] [place] [address] [address] Donna Cantrell Basophils/100 WBC (Bld) 0.5 % Normal 0.2-2.0 [facility] Comment on above: Performed By: #### C BC #### [facility] [address] [place] [address] Dr. Donna Cantrell EO # 0.0 103/ul Normal 0.0-0.7 [facility] Comment on above: Performed By: #### C BC #### [facility] [address] [place] [address] Dr. Donna Cantrell Eosinophils/100 WBC (Bld) 0.0 % Critically low 0.9-7.0 [facility] Comment on above: Performed By: #### C BC #### [facility] [address] [place] [address] Dr. Donna Cantrell Erythrocyte distribution width (RBC) [Ratio] 13.6 % Normal 11.0-15.0 [facility] Comment on above: Performed By: #### C BC #### [facility] [address] [place] [address] Dr. Donna Cantrell Hematocrit (Bld) [Volume fraction] 42.0 % Normal 36.0-48.0 [facility] Comment on above: Performed By: #### C BC #### [facility] [address] [place] [address] Dr. Donna Cantrell Hemoglobin (Bld) [Mass/Vol] 14.4 g/dL Normal 12.0-16.0 [facility] Comment on above: Performed By: #### C BC #### [facility] [address] [place] [address] Dr. Donna Cantrell IG # 0.06 10e3/ul Critically high 0.00-0.03 [facility] Comment on above: Performed By: #### C BC #### [facility] [address] [place] [address] Dr. Donna Cantrell IG % 0.8 % Critically high 0.0-0.5 [facility] Comment on above: Performed By: #### C BC #### [facility] [address] [place] [address] Dr. Donna Cantrell LYMPH # 2.5 103/ul Normal 1.2-3.8 [facility] Comment on above: Performed By: #### C BC #### [facility] [address] [place] [address] Dr. Donna Cantrell Lymphocytes/100 WBC (Bld) 30.8 % Normal 20.5-60.0 [facility] Comment on above: Performed By: #### C BC #### [facility] [address] [place] [address] Dr. Donna Cantrell MANUAL DIFF REQ NO Normal [facility] Comment on above: Performed By: #### C BC #### [facility] [address] [place] [address] Dr. Donna Cantrell MCH (RBC) [Entitic mass] 30.3 pg Normal 26.7-34.0 [facility] Comment on above: Performed By: #### C BC #### [facility] [address] [place] [address] Dr. Donna Cantrell MCHC (RBC) [Mass/Vol] 34.3 g/dL Normal 29.9-35.2 [facility] Comment on above: Performed By: #### C BC #### [facility] [address] [place] [address] Dr. Donna Cantrell MCV (RBC) [Entitic vol] 88.2 fL Normal 81.0-99.0 [facility] Comment on above: Performed By: #### C BC #### [facility] [address] [place] [address] Dr. Donna Cantrell MONO # 0.5 103/ul Normal 0.3-0.8 [facility] Comment on above: Performed By: #### C BC #### [facility] [address] [place] [address] Dr. Donna Cantrell Monocytes/100 WBC (Bld) 6.4 % Normal 1.7-12.0 [facility] Comment on above: Performed By: #### C BC #### [facility] [address] [place] [address] Dr. Donna Cantrell NEUT # 4.9 103/ul Normal 1.4-6.5 [facility] Comment on above: Performed By: #### C BC #### [facility] [address] [place] [address] Dr. Donna Cantrell Neutrophils/100 WBC (Bld) 61.5 % Normal 43.0-75.0 [facility] Comment on above: Performed By: #### C BC #### [facility] [address] [place] [address] Dr. Donna Cantrell Platelet mean volume (Bld) [Entitic vol] 9.9 fL Normal 9.5-13.5 [facility] Comment on above: Performed By: #### C BC #### [facility] [address] [place] [address] Dr. Donna Cantrell PLT 234 103/ul Normal 150-450 [facility] Comment on above: Performed By: #### C BC #### [facility] [address] [place] [address] Dr. Donna Cantrell RBC 4.76 106/ul Normal 4.20-5.40 [facility] Comment on above: Performed By: #### C BC #### [facility] [address] [place] [address] Dr. Donna Cantrell WBC 8.0 103/ul Normal 4.0-11.0 [facility] Comment on above: Performed By: #### C BC #### [facility] [address] [place] [address] Dr. Donna Cantrell PROF CHEM 8 (BAS METB)on Anion gap [Moles/Vol] 13.9 mmol/L Normal [facility] Comment on above: Performed By: #### B MP #### [facility] [address] [place] [address] Dr. Donna Cantrell Calcium [Mass/Vol] 8.9 mg/dL Normal 8.5-10.1 [facility] Comment on above: Performed By: #### B MP #### [facility] [address] [place] [address] Dr. Donna Cantrell Chloride [Moles/Vol] 104 mmol/L Normal 98-107 [facility] Comment on above: Performed By: #### B MP #### [facility] [address] [place] [address] [address] Donna Cantrell CO2 [Moles/Vol] 26.3 mmol/L Normal 21.0-32.0 [facility] Comment on above: Performed By: #### B MP #### [facility] [address] [place] [address] [address] Donna Cantrell Creatinine [Mass/Vol] 0.91 mg/dL Normal 0.55-1.02 [facility] Comment on above: Performed By: #### B MP #### [facility] [address] [place] [address] [address] Donna Cantrell EGFR-AF ROMANIAN >60 Normal >=60 [facility] Comment on above: Performed By: #### B MP #### [facility] [address] [place] [address] Dr. Donna Cantrell EGFR-NON AF ROMANIAN >60 Normal >=60 [facility] Comment on above: Performed By: #### B MP #### [facility] [address] [place] [address] [address] Donna Cantrell Glucose [Mass/Vol] 127 mg/dL Critically high 74-106 [facility] Comment on above: Performed By: #### B MP #### [facility] [address] [place] [address] Dr. Donna Cantrell Potassium [Moles/Vol] 4.2 mmol/L Normal 3.5-5.1 [facility] Comment on above: Performed By: #### B MP #### [facility] [address] [place] [address] Dr. Donna Cantrell Sodium [Moles/Vol] 140 mmol/L Normal 136-145 [facility] Comment on above: Performed By: #### B MP #### [facility] [address] [place] [address] [address] Donna Cantrell Urea nitrogen [Mass/Vol] 15.0 mg/dL Normal 7.0-18.0 [facility] Comment on above: Performed By: #### B MP #### [facility] [address] [place] [address] [address] Donna Cantrell Urea nitrogen/Creatini ne [Mass ratio] 16.5 mg/mg Normal [facility] Comment on above: Performed By: #### B MP #### [facility] [address] [place] [address] Dr. Donna Cantrell PROTIMEon 10-07-2022 INR Coag (PPP) [Relative time] {INR} Normal [facility] Comment on above: Performed By: #### B LTM #### [facility] [address] [place] [address] Dr. Donna Cantrell INR GUIDELINES SEE BELOW Normal [facility] Comment on above: Result Comment: SHIRA RED INR: 2.0 - 3.0 CONDITIONS NOT LISTED BELOW 2.5 - 3.5 FOR PROSTHETIC HEART VALVE REPLACEMENT 2.5 - 3.5 RECURRENT THROMBOSIS Performed By: #### B LTM #### [facility] [address] [place] [address] Dr. Donna Cantrell PT Coag (PPP) [Time] 9.7 s Normal 9.0-11.6 [facility] Comment on above: Performed By: #### B LTM #### [facility] [address] [place] [address] Dr. Donna Cantrell PTTon 10-07-2022 aPTT Coag (Bld) [Time] 29.6 s Normal 22.3-36.2 [facility] Comment on above: Performed By: #### B LTM #### [facility] [address] [place] [address] Dr. Donna Cantrell SCREENING MAMMOGRAM W/AJ, BILATERAL*on [...] VERY IMPORTANT TO YOUR HEALTH. THE CURRENT [place] [employer] GUIDELINES RECOMMENDS ANNUAL MAMMOGRAPHY BEGINNING AT AGE 38 THIS FACILITY USES A REMINDER SYSTEM TO ENSURE ALL PATIENTS RECEIVE REMINDER NOTIFICATIONS AT THE APPROPRIATE TIME BASED ON THE RECOMMENDATIONS OF THIS EXAM. Report reported and signed by Eder Barraza on 07/01/2022 1545 Normal [facility] [employer] XR Shoulder Complete Right*o n 07-01-2022 XR [...] by Eder Barraza on 07/02/2022 0746 Normal [facility] [employer] Operator XR Spine Lumbar Complete w/F jama AND [place] 07-01-2022 XR Spine Lumbar Complete w/Flex AND [...] by Eder Barraza on 07/02/2022 0744 Normal [facility] [employer] Operator Casey 12-17-2021 TESSAN Telephone (AMARJIT) LEXI GARCIA ([id number]) 1970 F Date Time Provider Department 12/17/21 GAYLE WASHINGTON During your visit today, we recorded the following information about you: Gayle Washington MD 12/17/2021 2:54 PM Signed Please Call patient if MyChart note not read to review results/released to My Chart if tests completed at [facility]: Mildly low vitamin D- increase over [...] PO Daily January 07, 2021 7:15am - ouztp-jd-2-vkv-zqj-xhbqnxn-as t 1,827-631-47-80 mg cap Take by mouth. - PNV [...] - Estradiol (more content not included)... Normal [facility] BLEEDING TIMEon 12-16-2021 BLEEDING TIME 7.0 min Normal 1.0-8.0 [facility] Comment on above: Result Comment: test done by Selam Almodovar Performed By: #### B LTM #### [facility] [address] [place] [address] Dr. Donna Cantrell 25(OH)D3 SerPl-ncon 2021 25-hydroxyvitamin D3 [Mass/Vol] 29.6 ng/mL Low 31.0-80.0 [facility] Comment on above: Order Comment: Speci men Type: BLOOD SPECIMEN Ordering Facility: [facility] Address: [address] [place] [address] Result Comment: Clas sification of 25 [place] Vitamin D status: Deficiency/Insufficiency: < or = 30 ng/ml. Sufficiency/Optimal Levels: 31-80 ng/mL Toxicity: > 100 ng/mL. Test performed by chemiluminescent immunoassay. Performed By: #### 1 989-3 #### [facility] CLIA [id number] [address] [place], [place] [address] [place] CBC panel Auto (Bld)on 12-12 Erythrocyte distribution width (RBC) [Ratio] 14.4 % Normal 11.5-15.0 [facility] Comment on above: Order Comment: Speci men Type: BLOOD SPECIMEN Ordering Facility: [facility] Address: [address] [place] [address] Performed By: #### 5 8410-2 #### [facility] CLIA [id number] [address] [place] [address] [place] Hematocrit (Bld) [Volume fraction] 45.2 % Normal 36.0-46.0 [facility] Comment on above: Order Comment: Speci men Type: BLOOD SPECIMEN Ordering Facility: [facility] Address: [address] [place] [address] Performed By: #### 5 8410-2 #### [facility] CLIA [id number] [address] [place] [address] [place] Hemoglobin (Bld) [Mass/Vol] 14.8 g/dL Normal 11.5-15.5 [facility] Comment on above: Order Comment: Speci men Type: BLOOD SPECIMEN Ordering Facility: [facility] Address: [address] [place] [address] Performed By: #### 5 8410-2 #### [facility] CLIA [id number] [address] [place] [address] [place] MCH (RBC) [Entitic mass] 29.7 pg Normal 26.0-34.0 [facility] Comment on above: Order Comment: Speci men Type: BLOOD SPECIMEN Ordering Facility: [facility] Address: [address] [place] [address] Performed By: #### 5 8410-2 #### [facility] CLIA [id number] [address] [place] [address] [place] MCHC (RBC) [Mass/Vol] 32.7 g/dL Normal 30.5-36.0 [facility] Comment on above: Order Comment: Speci men Type: BLOOD SPECIMEN Ordering Facility: [facility] Address: [address] [place] [address] Performed By: #### 5 8410-2 #### [facility] CLIA [id number] [address] [place] [address] [place] MCV (RBC) [Entitic vol] 90.8 fL Normal 80.0-100.0 [facility] Comment on above: Order Comment: Speci men Type: BLOOD SPECIMEN Ordering Facility: [facility] Address: [address] [place] [address] Performed By: #### 5 8410-2 #### [facility] CLIA [id number] [address] [place] [address] [place] Nucleated RBC (Bld) [#/Vol] 10*3/uL Normal <0.01 [facility] Comment on above: Order Comment: Speci men Type: BLOOD SPECIMEN Ordering Facility: [facility] Address: [address] [place], [place] [id number] Performed By: #### 5 8410-2 #### [facility] CLIA [id number] [address] [place] [address] [place] Platelet mean volume (Bld) [Entitic vol] 10.7 fL Normal 9.0-12.7 [facility] Comment on above: Order Comment: Speci men Type: BLOOD SPECIMEN Ordering Facility: [facility] Address: [address] [place] [address] Performed By: #### 5 8410-2 #### [facility] CLIA [id number] [address] [place] [address] [place] Platelets (Bld) [#/Vol] 259 10*3/uL Normal 150-400 [facility] Comment on above: Order Comment: Speci men Type: BLOOD SPECIMEN Ordering Facility: [facility] Address: [address] [place] [address] Performed By: #### 5 8410-2 #### [facility] CLIA [id number] [address] [place] [address] [place] RBC (Bld) [#/Vol] 4.98 10*6/uL Normal 3.90-5.20 [facility] Comment on above: Order Comment: Speci men Type: BLOOD SPECIMEN Ordering Facility: [facility] Address: [address] [place], [place] [id number] Performed By: #### 5 8410-2 #### [facility] COS[place] [id number] [address] [place] [address] [place] WBC (Bld) [#/Vol] 9.25 10*3/uL Normal 3.70-11.00 [facility] Comment on above: Order Comment: Speci men Type: BLOOD SPECIMEN Ordering Facility: [facility] Address: [address] [place] [address] Performed By: #### 5 8410-2 #### [facility] COSMOIA [id number] [address] [place] [address] [place] CNOVon 12-12-2021 CNOV Office Visit (AMARJIT ) LEXI GARCIA ([id number]) 1970 F Date Time Provider Department 12/12/21 [...] flat ground knees give out. COVID vaccine [employer] 06/26/21. Feels safe at home. 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 pain recommendations/injections, prn acetaminophen, start prn heat/ice/otc [...] yes Dactylitis: no H/o precedent/frequent infection(s): no Enthesopathy/[place]'s/heel/p lantar tenderness: as above Skin thickening, psoriasis, photosensitivity, purpura: no Nail changes: ridges/ripples Alpecia, patchy: no Eye inflammation: glasses, R retinal hole SICCA: dry eyes Oral/nasal/genital ulcers: no GI problems-diarrhea/bleeding/IB D/Gluten intolerence/Dysphagia: gerd Raynaud's phenomenon/digital ulcers: no Organ inv-Serositis: no Lung disease/ILD: no Myopathy/proximal muscle weakness: no Abnormal Urine or urethritis: no Renal/liver disease: no 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 Normal [facility] CRP [facility] CRP [Mass/Vol] 1.4 mg/dL High <0.9 [facility] Comment on above: Order Comment: Speci men Type: BLOOD SPECIMEN Ordering Facility: [facility] Address: [address] [place] [address] Performed By: #### 1 988-5, 2131-9, 91230-6, 3084-1 #### [facility] CLIA [id number] [address] [place] [address] [place] Comprehensive metabolic 2000 panelon 12-12-2021 Albumin [Mass/Vol] 4.2 g/dL Normal 3.9-4.9 [facility] Comment on above: Order Comment: Speci men Type: BLOOD SPECIMEN Ordering Facility: [facility] Address: [address] [place] [address] Performed By: #### 1 988-5, 2131-9, 30361-7, 3083-1 #### [facility] CLIA [id number] [address] [place] [address] [place] [facility] ALP [Catalytic activity/Vol] 140 U/L High 34-123 [facility] Comment on above: Order Comment: Speci men Type: BLOOD SPECIMEN Ordering Facility: [facility] Address: [address] [place] [address] Performed By: #### 1 988-5, 2131-9, 10690-8, 308-1 #### [facility] CLIA [id number] [address] [place] [address] [place] [facility] ALT [Catalytic activity/Vol] 23 U/L Normal 7-38 [facility] Comment on above: Order Comment: Speci men Type: BLOOD SPECIMEN Ordering Facility: [facility] Address: [address] [place] [address] Performed By: #### 1 988-5, 2131-9, 14867-8, 3084-1 #### [facility] CLIA [id number] [address] [place] [address] [place] Anion gap [Moles/Vol] 10 mmol/L Normal 9-18 [facility] Comment on above: Order Comment: Speci men Type: BLOOD SPECIMEN Ordering Facility: [facility] Address: [address] [place] [address] Performed By: #### 1 988-5, 2-9, 59920-7, 3084-1 #### [facility] CLIA [id number] [address] [place] [address] [place] AST [Catalytic activity/Vol] 24 U/L Normal 13-35 [facility] Comment on above: Order Comment: Speci men Type: BLOOD SPECIMEN Ordering Facility: [facility] Address: [address] [place] [address] Performed By: #### 1 988-5, 2131-9, 77477-8, 3084-1 #### [facility] CLIA [id number] [address] [place] [address] [place] Bilirubin [Mass/Vol] mg/dL Low 0.2-1.3 [facility] Comment on above: Order Comment: Speci men Type: BLOOD SPECIMEN Ordering Facility: [facility] Address: [address] [place] [address] Performed By: #### 1 988-5, 2131-9, 93505-8, 3084-1 #### [facility] CLIA [id number] [address] [place] [address] [place] Calcium [Mass/Vol] 9.6 mg/dL Normal 8.5-10.2 [facility] Comment on above: Order Comment: Speci men Type: BLOOD SPECIMEN Ordering Facility: [facility] Address: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 {INR} Normal [facility] Comment on above: Performed By: #### P T ####[facility] [place] [phone] PT Coag (PPP) [Time] 13.1 s Normal 12.3-14.9 [facility] Comment on above: Performed By: #### P T ####[facility] [facility] [place] [phone] Type and Screen Capture 3 sc rn cellon 06-18-2020 Type and Screen Capture 3 scrn cell PATIENT: JOSE Doss LOC: [facility] BILL# : [id number] : 1970 SEX: F ORDERED BY: TEENA Lowe ORDERED : 06/18/2020 15:07 COLLECTED: 06/18/2020 15:36 ORDER : [id number] RECEIVED : 06/18/2020 15:36 Second, confirmatory specimen needed to satisfy Group [employer] policy. TEST NAME RESULT UNITS RANGES ABN FL ST AB[facility]H Capture O POS F Antibody 3 Cell Scrn Captu NEG F Normal [facility] Comment on above: Performed By: #### T S3C #### [facility] [address] [place] [address] XR SPINE ENTIRE (2-3 VIEWS)o n 06-18-2020 [...] Ash Horta MD 06/19/20 Final result Normal [facility] FLUORO FOR SURGICAL PROCEDUR ESon 05-09-2020 FLUORO [...] Maximiliano Rachel MD 05/09/20 Final result Normal [facility] COVID-19, NAAon 05-05-2020 COVID-19, BELLE Not Detected Normal Not Detect [facility] Comment on above: Result Comment: This nucleic acid amplification test was developed and its performance characteristics determined by [employer]. Nucleic acid amplification tests include PCR and [...] detected) result in this assay. Performed at: [facility] [place], [place] [id number] [employer]al[employer]: Altagracia Quiñonez MD, Phone: [phone] Performed By: #### I RCOV ####[facility] [place] [phone] Basic Metabolic Panelon 10-3 Anion gap [Moles/Vol] 12 mmol/L Normal 9-15 [facility] Comment on above: Performed By: #### B MP #### [facility] [address] [place] [address] Calcium [Mass/Vol] 10.5 mg/dL Critically high 8.5-9.9 [facility] Comment on above: Performed By: #### B MP #### [facility] [address] [place] [address] Chloride [Moles/Vol] 98 mmol/L Normal 95-107 [facility] Comment on above: Performed By: #### B MP #### [facility] [address] [place] [address] CO2 [Moles/Vol] 27 mmol/L Normal 20-31 [facility] Comment on above: Performed By: #### B MP #### [facility] [address] [place] [address] Creatinine [Mass/Vol] 0.82 mg/dL Normal 0.50-0.90 [facility] Comment on above: Performed By: #### B MP #### [facility] [address] [place] [address] GFR/1.73 sq M predicted among blacks MDRD (S/P/Bld) [Vol rate/Area] mL/min/{1.73_m2} Normal >60 [facility] Comment on above: Result Comment: >60 mL/min/1.73m2 EGFR, calc. for ages 18 and older using the MDRD formula (not corrected for weight), is valid for stable renal function. Performed By: #### B MP #### [facility] [address] [place] [address] GFR/1.73 sq M.predicted MDRD (S/P/Bld) [Vol rate/Area] mL/min/{1.73_m2} Normal >60 [facility] Comment on above: Result Comment: >60 mL/min/1.73m2 EGFR, calc. for ages 18 and older using the MDRD formula (not corrected for weight), is valid for stable renal function. Performed By: #### B MP #### [facility] [address] [place] [address] Glucose [Mass/Vol] 84 mg/dL Normal 70-99 [facility] Comment on above: Performed By: #### B MP #### [facility] [address] [place] [address] Potassium [Moles/Vol] 4.6 mmol/L Normal 3.4-4.9 [facility] Comment on above: Performed By: #### B MP #### [facility] [address] [place] [address] Sodium [Moles/Vol] 137 mmol/L Normal 135-144 [facility] Comment on above: Performed By: #### B MP #### [facility] [address] [place] [address] Urea nitrogen [Mass/Vol] 31 mg/dL Critically high 6-20 [facility] Comment on above: Performed By: #### B MP #### [facility] [address] [place] [address] CBC With Platelet No Differe ntialon 05-03-2020 Erythrocyte distribution width (RBC) [Ratio] 14.3 % Normal 11.5-14.5 [facility] Comment on above: Performed By: #### C BCND #### [facility] [address] [place] [address] Hematocrit (Bld) [Volume fraction] 41.3 % Normal 37.0-47.0 [facility] Comment on above: Performed By: #### C BCND #### [facility] [address] [place] [address] Hemoglobin (Bld) [Mass/Vol] 13.6 g/dL Normal 12.0-16.0 [facility] Comment on above: Performed By: #### C BCND #### [facility] [address] [place] [address] MCH (RBC) [Entitic mass] 30.7 pg Normal 27.0-31.3 [facility] Comment on above: Performed By: #### C BCND #### [facility] [address] [place] [address] MCHC (RBC) [Mass/Vol] 33.0 % Normal 33.0-37.0 [facility] Comment on above: Performed By: #### C BCND #### [facility] [address] [place] [address] MCV (RBC) [Entitic vol] 92.9 fL Normal 82.0-100.0 [facility] Comment on above: Performed By: #### C BCND #### [facility] [address] [place] [address] Platelets (Bld) [#/Vol] 241 10*3/uL Normal 130-400 [facility] Comment on above: Performed By: #### C BCND #### [facility] [address] [place] [address] RBC (Bld) [#/Vol] 4.44 10*6/uL Normal 4.20-5.40 [facility] Comment on above: Performed By: #### C BCND #### [facility] [address] [place] [address] WBC (Bld) [#/Vol] 11.0 10*3/uL Critically high 4.8-10.8 [facility] Comment on above: Performed By: #### C BCND #### [facility] [address] [place] [address] COVID-19, NAAon 05-03-2020 Source Swab Anterior nares Normal [facility] Comment on above: Performed By: #### I RCOV ####[facility] [place] [phone] Partial Thromboplastin Timeo n 05-03-2020 aPTT Coag (Bld) [Time] 31.3 s Normal 24.4-36.8 [facility] Comment on above: Performed By: #### P TT #### [facility] [address] [place] [address] Prothrombin Timeon 0 INR Coag (PPP) [Relative time] 0.9 {INR} Normal [facility] Comment on above: Performed By: #### P T #### [facility] [address] [place] [address] PT Coag (PPP) [Time] 11.9 s Low 12.3-14.9 [facility] Comment on above: Performed By: #### P T #### [facility] [address] [place] [address] Type and Screen Capture 3 sc rn cellon 05-03-2020 Type and Screen Capture 3 scrn cell PATIENT: JOSE Doss LOC: [facility] BILL# : [id number] : 1970 SEX: F ORDERED BY: STEPHANIE Harrison ORDERED : 05/03/2020 14:14 COLLECTED: 05/03/2020 14:14 ORDER : [id number] RECEIVED : 05/03/2020 19:43 TEST NAME RESULT UNITS RANGES ABN FL ST AB[facility] Capture O POS F Antibody 3 Cell Scrn Captu NEG F Normal [facility] Comment on above: Performed By: #### T S3C #### [facility] [address] [place] [address] Established Visit (Orthopaed ic Surgery)on 04-26-2020 Established [...] biceps. No pain with resisted elbow flexion. Machinery Mechanic strength 5/5 Elbow flexion 5/5. Shoulder abduction [...] Chiara Espinosa PA-C Department of Orthopaedic Surgery [facility] Dictation performed with the use of voice recognition software. Syntax and grammatical errors may exist. Active Problems Problems Shoulder pain (719.41) (M25.519) Signatures Electronically signed by : Chiara Espinosa PA-C; Apr 26 2020 3:56PM EST (Author) Normal Zixi Initial Visit (Orthopaedic S urgery)on 04-17-2020 Initial Visit (Orthopaedic Surgery) Diagnoses/Problems Assessed Shoulder pain (719.41) (M25.519) Patient Discussion/Summary Patient has right shoulder pain of uncertain origin. Exam today is suggestive of subacromial origin of pain. MRI scan shows tendinopathy but not an obvious tear. I recommended having her MRI scans evaluated by the musculoskeletal radiologist at [facility] I will call the patient back [...] her light touch sensation is grossly intact. Machinery Mechanic strength is 5/5 elbow flexion 5/5 shoulder [...] Apr 17 2020 4:45PM EST (Author) [facility] Vital Signs Date Time Vital Sign Value Performing Clinician Facility 12-12-2021 10:43-0400 Body weight 97.52 kg Gayle Washington MD Work Phone: [facility] 12-12-2021 10:43-0400 Diastolic blood pressure 87 mm[Hg] Gayle Washington MD Work Phone: [facility] 12-12-2021 10:43-0400 Heart rate 88 /min Gayle Washington MD Work Phone: [facility] 12-12-2021 10:43-0400 Systolic blood pressure 125 mm[Hg] Gayle Washington MD Work Phone: [facility] 10-14-2021 10:30-0400 Diastolic blood pressure 80 mm[Hg] Emmett Brunner Other [employer] Other 10-14-2021 10:30-0400 SaO2% (BldA) [Mass fraction] 98 % Emmett Brunner Other [employer] Other 10-14-2021 10:30-0400 Systolic blood pressure 130 mm[Hg] Emmett Adams [employer] Other 07-01-2021 15:30-0500 Body weight 94.62 kg Letty Wesley Other [employer] Other 07-01-2021 15:30-0500 Diastolic blood pressure 78 mm[Hg] Letty Wesley Other [employer] Other 07-01-2021 15:30-0500 Respiratory rate 18 /min Letty Wesley Other [employer] Other 07-01-2021 15:30-0500 SaO2% (BldA) [Mass fraction] 98 % Letty Wesley Other [employer] Other 07-01-2021 15:30-0500 Systolic blood pressure 118 mm[Hg] Letty Wesley Other [employer] Other 06-18-2021 15:45-0500 Diastolic blood pressure 90 mm[Hg] Emmettarmani Brunner Other [employer] Other 06-18-2021 15:45-0500 SaO2% (BldA) [Mass fraction] 97 % Emmett Brunner Other [employer] Other 06-18-2021 15:45-0500 Systolic blood pressure 122 mm[Hg] Emmett Brunner Other [employer] Other 05-15-2021 17:30-0500 Body weight 92.53 kg Emmett Brunner Other [employer] Other 05-15-2021 17:30-0500 Diastolic blood pressure 80 mm[Hg] Emmett Brunner Other [employer] Other 05-15-2021 17:30-0500 Systolic blood pressure 130 mm[Hg] Emmett Brunner Other [employer] Other 04-02-2021 14:30-0400 Body weight 92.63 kg Emmett Brunner Other [employer] Other 04-02-2021 14:30-0400 Diastolic blood pressure 88 mm[Hg] Emmett Brunner Other [employer] Other 04-02-2021 14:30-0400 SaO2% (BldA) [Mass fraction] 98 % Emmett Brunner Other [employer] Other 04-02-2021 14:30-0400 Systolic blood pressure 140 mm[Hg] Emmett Brunner Other [employer] Other Encounters Encounter Date Encounter Type Care Provider Facility Start: 05-04-2024 End: 05-04-2024 [facility] Start: 04-10-2024 End: 04-10-2024 ambulatory Rosibel Cotton MD Facility:[facility] Start: 02-07-2024 End: 02-07-2024 ambulatory Rosibel Cotton MD Facility:[facility] Start: 02-03-2024 End: 02-03-2024 ambulatory NANCY Christiansen [facility] Start: 01-25-2024 End: 01-25-2024 ambulatory SOLITARIO GARCÍA [facility] Start: 01-24-2024 End: 01-24-2024 ambulatory Rosibel Cotton MD Facility:[facility] Start: 01-12-2024 End: 01-12-2024 ambulatory NICOLEFAHAD TELLES [facility] Start: 01-12-2024 Encounter for other preprocedural examination [facility] Start: 12-20-2023 End: 12-20-2023 ambulatory Rosibel Cotton MD Facility: [facility] Start: 11-02-2023 End: 11-02-2023 ambulatory [facility] Start: 10-29-2023 End: 10-29-2023 ambulatory IZABEL LARA Not Available Start: 10-28-2023 End: 10-28-2023 ambulatory CLIFFORD VANN Not Available Start: 10-26-2023 End: 10-26-2023 ambulatory [facility] Start: 10-25-2023 End: 10-25-2023 ambulatory Rosibel Cotton MD Facility:[facility] Start: 09-20-2023 End: 09-20-2023 ambulatory Rosibel Cotton MD Facility:[facility] Start: 09-13-2023 End: 09-13-2023 Subsequent hospital visit by physician [facility] Comment on above: Flatulence, eructati on and gas pain Start: 09-13-2023 End: 09-13-2023 ambulatory [facility] Start: 09-13-2023 Encounter for other preprocedural examination [facility] Start: 07-26-2023 End: 07-26-2023 ambulatory KIMBERLEY GIBBONS Not Available Start: 06-22-2023 End: 06-22-2023 ambulatory [facility] Start: 06-18-2023 End: 06-18-2023 ambulatory KIMBERLEY G EDWIGE Not Available Start: 05-11-2023 End: 05-12-2023 ambulatory JESSIE REID Not Available Start: 04-07-2023 ambulatory Gayle Washington MD Work Phone: Rheumatology Comment on above: Fax info Start: 10-16-2022 Encounter for preprocedural cardiovascular examination DR ULISES TIM [facility] Start: 10-16-2022 Encounter for preprocedural laboratory examination DR ULISES [facility] Start: 10-13-2022 End: 10-13-2022 ambulatory [...] Start: 12-12-2021 End: 12-13-2021 ambulatory KIMBERLEY LEORA [employer] Other Start: 12-12-2021 End: 12-12-2021 Patient encounter [...] End: 11-19-[address] RACHEL STOCK . Facility: Start: 10-29-2021 Chart Update Cristobal miller Work Phone: [id number] Work Phone: Start: 10-14-2021 End: 10-14-2021 ambulatory Emmett Brunner Other [employer] Other Start: 10-14-2021 Patient encounter procedure Emmett Brunner [facility] Start: 09-23-2021 End: 09-23-2021 ambulatory Emmett Brunner Other [employer] Other Start: 09-23-2021 Telephone encounter Emmett Brunner [facility] Start: 07-01-2021 End: 07-01-2021 ambulatory Letty Olson Other [employer] Other Start: 07-01-2021 Office outpatient vi sit 25 minutes Letty Wesley [facility] Start: 06-26-2021 (Procedure) Short Emmett Brunner [facility] Start: 06-26-2021 End: 06-26-2021 ambulatory Emmett Brunner Other [employer] Other Start: 06-18-2021 End: 06-18-2021 ambulatory Emmett Brunner Other [employer] Other Start: 06-18-2021 Office outpatient vi sit 25 minutes Emmett Brunner [facility] Start: 06-18-2021 Telephone encounter Emmettarmani Brunner [facility] Start: 06-04-2021 End: 06-04-2021 Subsequent hospital visit by physician Christina [facility] Comment on above: Chronic hip pain, bi lateral [M25.551, M25.552, G89.29] Start: 05-21-2021 (Procedure) Short Emmett Brunner [facility] Start: 05-21-2021 End: 05-21-2021 ambulatory Emmettarmani Brunner Other [employer] Other Start: 05-15-2021 End: 05-15-2021 ambulatory Emmett Brunner Other [employer] Other Start: 05-15-2021 Office outpatient vi sit 25 minutes Emmett Kannan [facility] Start: 04-30-2021 (Procedure) Short Emmettarmani Brunner [facility] Start: 04-16-2021 (Procedure) Short Emmettarmani Brunner [facility] Start: 04-02-2021 Office outpatient vi sit 25 minutes Emmett Kannan [facility] Start: 02-21-2021 Office outpatient vi sit 15 minutes Cristobal Tomas Work Phone: [id number] Work Phone: Start: 06-25-2020 End: 06-27-2020 Evaluation and management of inpatient [facility] Start: 06-25-2020 End: 06-28-2020 Patient encounter procedure CRISTOBAL Berta [facility] Start: 06-18-2020 End: 06-23-2020 Patient encounter procedure CRISTOBAL Hampton [facility] Start: 05-09-2020 End: 05-09-2020 [facility] Procedures Date Procedure Procedure Detail Performing Clinician Start: 09-13-2023 Assay of gammaglobul in iga igd igg igm each Nicole Telles 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 Work Phone: Start: 06-04-2021 Radex hips bilateral with pelvis minimum 5 views Gayle Washington MD Work Phone: Start: 06-17-2020 Mammography Gayle jeffries MD Work Phone: Start: 06-09-2018 Lipid 1996 panel - S willian or Plasma Gayle Washington MD Work Phone: Plan of Treatment Date Care Activity Detail Author Start: 12-12-2024 DIABETES SCREEN DIABETES SCREEN [facility] Start: 12-12-2024 Diabetes Screening Diabetes Screening [facility] Start: 07-01-2024 Screening for malignant neoplasm of breast Breast cancer screen [facility] Start: 02-03-2024 End: 02-03-2024 Admission to same day surgery center 02/03/2024 8:45 AM EDT - 02/03/2024 9:05 AM EDT Surgery [facility] [address] [place] [address] Nancy Ludwig MD [address] [place], [place] [id number] ESOPHAGOGASTRODUODENOSCOPY [facility] Comment on above: ESOPHAGOGASTRODUODENOSCOPY Start: 02-03-2024 End: 02-03-2024 Esophagogastroduodenoscopy transoral diagnostic ESOPHAGOGASTRODUODENOSCOPY Chronic GERD 02/03/2024 8:45 AM EDT [facility] Start: 02-03-2024 Subsequent hospital visit by physician 02/03/2024 8:45 AM EDT Hospital Encounter [facility] [address] [place], [place] [id number] Nancy Ludwig MD [address] [place] [id number] [facility] Start: 07-05-2023 Annual Wellness Visit (Medicare Advantage) Annual Wellness Visit (Medicare Advantage) [facility] Start: 06-09-2023 Lipid 1996 panel - Serum or Plasma Lipid Screening [facility] Start: 06-09-2023 LIPID SCREEN LIPID SCREEN [facility] Start: 03-05-2023 COVID-19 Vaccine ( season) COVID-19 Vaccine ( season) [facility] Start: 03-05-2023 Influenza vaccination [facility] Start: 02-02-2023 Influenza vaccination Flu vaccine (#1) [facility] Start: 07-05-2022 DEPRESSION ASSESSMENT DEPRESSION ASSESSMENT [facility] Start: 03-19-2022 End: 12-17-2022 25-hydroxyvitamin D3 [Mass/volume] in Serum or Plasma VITAMIN D 25 HYDROXY Lab Routine Vitamin D deficiency Expected: 03/19/2022 (Approximate), Expires: 12/17/2022 [facility] Work Phone: Comment on above: Expected: 03/19/2022 (Approximate), Expi res: 12/17/2022 Start: 03-05-2022 Influenza vaccination [facility] Start: 08-21-2021 COVID-19 VACCINE (2 - Booster for Barbara series) COVID-19 VACCINE (2 - Booster for Barbara series) [facility] Start: 07-05-2021 DEPRESSION ASSESSMENT DEPRESSION ASSESSMENT [facility] Start: 06-17-2021 Mammography [facility] Start: 2018 Shingles vaccine (1 of 2) Shingles vaccine (1 of 2) [facility] Start: 2018 SHINGRIX VACCINE (1 of 2) SHINGRIX VACCINE (1 of 2) [facility] Start: 2013 COLOGUARD (FIT-DNA) COLOGUARD (FIT-DNA) [facility] Start: 2013 Colonoscopy COLONOSCOPY [facility] Start: 2013 COLORECTAL CANCER SCREENING COLORECTAL CANCER SCREENING [facility] Start: [address] COLONOGRAPHY [facility] Start: 2013 FECAL OCCULT BLOOD FECAL OCCULT BLOOD [facility] Start: 2013 Screening for malignant neoplasm of colon [facility] Start: 2013 SIGMOIDOSCOPY SIGMOIDOSCOPY [facility] Start: 1998 HPV TESTING HPV TESTING [facility] Start: 1989 PAP TESTING PAP TESTING [facility] Start: 1987 DTaP/Tdap/Td vaccine (1 - Tdap) DTaP/Tdap/Td vaccine (1 - Tdap) [facility] Start: 1987 Urine microalbumin profile [facility] Start: 1986 Hepatitis C screening Hepatitis C screen [facility] Start: 1986 HIV SCREENING HIV SCREENING [facility] Start: 1983 HIV screening HIV screen [facility] Start: 1980 Adult depression screening assessment DEPRESSION SCREENING [facility] Start: 1980 Depression Screen Depression Screen [facility] Start: 1978 Lipid panel Lipids [facility] Start: 1974 PNEUMOCOCCAL (1 - PCV) PNEUMOCOCCAL (1 - PCV) [facility] Start: 1974 Pneumococcal 0-64 years Vaccine (1 - PCV) Pneumococcal 0-64 years Vaccine (1 - PCV) [facility] Start: 1974 Pneumococcal vaccination Pneumococcal Vaccine (1 - PCV) [facility] Start: 1968 HEPATITIS B (1 of 3 - 3-dose series) HEPATITIS B (1 of 3 - 3-dose series) [facility] Start: 1968 Hepatitis B Vaccine (1 of 3 - 3-dose series) Hepatitis B Vaccine (1 of 3 - 3-dose series) [facility] Celiac Disease Panel Celiac Dise ase Panel Lab Routine Flatulence, eructation and gas pain 09/13/2023 4:20 PM EDT [facility] End: 09-13-2023 H. pylori antigen [facility] Comment on above: Once for 1 Occurrences starting 09/13/19 24 until 09/13/2023 End: 09-13-2023 H. Pylori Antigen, Stool H. Pylori Antigen, Stool Lab Routine Flatulence, eructation and gas pain 1 Occurrences starting 09/13/2023 until 09/13/2023 [facility] Work Phone: Comment on above: 1 Occurrences starting 09/13/2023 until 09/13/2023 Immunizations Immunization Date Immunization Notes Care Provider Sabina brumfield 04-06-2019 influenza, injectabl e, quadrivalent, preservative free Cristobal Tomas Work Phone: [id number] Work Phone: 04-06-2019 influenza virus vaccine, unspecified formulation Gayle Washington MD Work Phone: [facility] 05-15-2016 seasonal influenza, intradermal, preservative free Cristobal F Genoveva Work Phone: [facility] Payers Date Payer Category Payer Unknown 2021 Unknown CLAYTON ARNOLD HI X [id number] 2021-Present [phone] [address] [address] [place] [address] HMO [id number] 2020 Private Health Insurance [facility] CHO[employer] [id number] 2020-2021 [address] [address] [place] [address] PPO [id number] 2018 Unknown [id number] [id number] 2017 Unknown [id number] 1968 Unknown [id number] 2.16.840.1.176495.3.579.2 .182 1968 Unknown [id number] 2.16840.1.825842.3.579.2 .182 1968 Unknown [id number] 2.16.840.1.429734.3.579.2 .182 1968 Unknown [id number] 2.16.840.1.240804.3.579.2 .182 1968 Unknown [id number] 2.16.840.1.181169.3.579.2 .182 1968 Unknown [id number] 2.16.840.1.831529.3.579.2 .593 1968 Unknown [id number] 2.16.840.1.034780.3.579.2 .593 1968 Unknown [id number] 2.16.840.1.291760.3.579.2 .593 1968 Unknown [id number] 2.16.840.1.884942.3.579.2 .593 1968 Unknown [id number] 2.16.840.1.052875.3.579.2 .593 1968 Unknown [id number] 2.16.840.1.798077.3.579.2 .593 1968 Unknown [id number] 2.16.840.1.811611.3.579.2 .593 1968 Unknown [id number] 2.16.840.1.949928.3.579.2 .593 1968 Unknown [id number] 2.16.840.1.123417.3.579.2 .593 1968 Unknown [id number] 2.16.840.1.675060.3.579.2 .593 1968 Unknown [id number] 2.16.840.1.420014.3.579.2 .593 1968 Unknown [id number] 2.16.840.1.597453.3.579.2 .1259 1968 Unknown [id number] 2.16.840.1.555923.3.579.2 .1259 1968 Unknown [id number] 2.16.840.1.778950.3.579.2 .1259 1968 Unknown [id number] 2.16.840.1.613937.3.579.2 .1259 1968 Unknown [id number] 2.16.840.1.781124.3.579.2 .1259 1968 Unknown [id number] 2.16.840.1.576176.3.579.2 .1259 1968 Unknown [id number] 2.16.840.1.768157.3.579.2 .1259 1968 Unknown [id number] 2.16.840.1.248305.3.579.2 .196 1968 Unknown [id number] 2.16.840.1.622078.3.579.2 .196 1968 Unknown [id number] 2.16.840.1.453335.3.579.2 .196 1968 Unknown [id number] 2.16.840.1.267649.3.579.2 .196 1968 Unknown [id number] 2.16.840.1.869086.3.579.2 .196 1968 Unknown [id number] 2.16.840.1.191710.3.579.2 .196 1968 Unknown [id number] 2.16.840.1.852191.3.579.2 .173 1968 Unknown [id number] 2.16.840.1.468331.3.579.2 .173 1968 Unknown [id number] 2.16.840.1.116137.3.579.2 .173 1968 Unknown [id number] 2.16.840.1.250105.3.579.2 .173 Social History Date Type Detail Facility Start: 06-04-2021 End: 09-08-2023 Tobacco smoking status SDIS Smokes tobacco daily [facility] History of tobacco use Cigarette Smoker [facility] Start: 05-03-2020 End: 06-04-2021 Cigarettes smoked current (pack per day) - Reported 1 [facility] Start: 06-04-2021 End: 09-08-2023 Tobacco use and exposure Smokeless tobacco non-user [facility] Start: 12-12-2021 End: 09-08-2023 Alcohol intake Current drinker of alcohol (finding) [facility] Start: 06-04-2021 History SDOH Alcohol Comment rarely. [facility] Start: 1970 Sex Assigned At Not on file [facility] Start: 11-29-2021 End: 12-09-2021 Exposure to SARS-CoV-2 (event) Unable to assess [facility] Start: 05-03-2020 End: 06-05-2021 Sex Assigned At [employer] Other Start: 05-05-2021 End: 06-04-2021 Exposure to SARS-CoV-2 (event) Not sure [facility] National Score (1-100), lower number is lower risk 95 [facility] (I/We) worried whether (my/our) food would run out before (I/we) got money to buy more. Never true [employer] Start: 09-08-2023 Tobacco Comment intermittently since 15 Engage Start: 05-03-2020 Alcohol Comment hardly ever [employer] Medical Equipment Procedure Code Equipment Code Equipment Original Text Equipment Identifier Dates Impl Alena Spine R michael Ti35 Mm 55 Mm [id number] Start: 06-25-2020 Graft Spnl W11xh [id number] Corticocancellous Lord Triad - [id number] Start: 05-09-2020 Plate Spnl L28mm Antr Cerv 1 Lev Translational [place] Acp [id number] Start: 05-09-2020 Screw Spnl L13mm Dia4mm Ant Cerv [facility] Ang Compr [place] Acp [id number] Start: 05-09-2020 Connector Spnl C rss Lo Prof Adj Reline-O 5.5 X 45-65 Mm [id number] Start: 06-25-2020 Screw Spnl Dia5. 5mm Opn Tulip Roselyn Reline [id number] Start: 06-25-2020 Graft Bne Sub 30 cc 1.7-10mm Canc Chip Morselized Frz Dry - [id number] Start: 06-25-2020 Graft Bne Sub 5m l Mtrx Cellular Osteocel + - [id number] Start: 06-25-2020 Spacer Spnl L W1 [id number] 4deg Post Lum Intbdy Fus Lord [id number] Start: 06-25-2020 Screw Spnl L50mm Dia7.5mm Post Thoracolumbosacral Polyax 2s [id number] Start: 06-25-2020 Screw Spnl L55mm Od6mm 2s Polyax Reline O [id number] Start: 06-25-2020 Alena Spnl Lordtc 5.5x40 Mm Ti Kassi-O [id number] Start: 06-25-2020 Clinical Notes 04-02-2021 to 05-04-2024 Telephone Encounter - Gayle Washington MD - 04/07/2023 1:34 PM EDTTelephone Encounter - Janis NadineLUCERO - 04/07/2023 12:34 PM EDTTelephone Encounter - Gayle Washington MD - 05/18/2022 5:45 PM EST Note Date & Type Note Facility 05-04-2024 Note Cardiovascular Medic [facility] SUBJECTIVE Lexi Garcia is a 54 y.o. female here for follow-up. HPI PMHx: HTN, depression, anxiety, tachycardia, factor V, pre-DM, fibromyalgia Patient here for 6 mo follow up CAD, palpitations, chest pain, and hypertension. She was started on Eliquis 2 days ago for Factor V Leiden by hematology. Chest pain has resolved. Denies SOB and says palpitations don't occur as often as before. Overall, doing well. Patient adamantly denies any cardiac complaints or concerns. Patient denies any chest pain or shortness of breath. Patient denies any lower extremity edema, orthopnea, or proximal nocturnal dyspnea. No near-syncope or syncope. No dizziness or lightheadedness. Patient Active Problem List Diagnosis Chest pain, atypical Benign essential HTN HOFFMAN (dyspnea on exertion) Fibromyalgia Elevated d-dimer Mixed hyperlipidemia GERD without esophagitis Orthopnea Sleep disturbances Abnormal nuclear stress test Unstable angina (CMS/HCC) Coronary artery disease involving blue lake coronary artery of blue lake heart without angina pectoris Degenerative joint disease involving multiple joints Osteopenia NSAID long-term use Adjustment disorder with mixed disturbance of emotions and conduct Bilateral hand pain Bipolar 1 disorder (CMS/HCC) Carpal tunnel syndrome Cellulitis of face Cellulitis of right lower limb Cervical disc disorder Chronic hip pain, bilateral Chronic pain of both knees Cigarette smoker Current use of estrogen therapy Elevated C-reactive protein (CRP) Factor 5 Leiden mutation, heterozygous (CMS/HCC) Full thickness rotator cuff tear Herpes infection Herpes zoster without complication Hidradenitis axillaris High blood pressure High risk sexual behavior History of mood disorder Internal derangement of right knee Lateral epicondylitis Lesion of oral mucosa Lumbar stenosis Marijuana smoker Melasma Mixed incontinence, urge and stress (male) (female) BMI 30.0-30.9,adult Other specific joint derangements of right shoulder, not elsewhere classified Generalized anxiety disorder Partial retinal artery occlusion Pelvic floor relaxation Prediabetes PVCs (premature ventricular contractions) S/P hysterectomy Sacral back pain Seasonal allergic rhinitis Seasonal allergies Skin sensation disturbance Soft tissue swelling Spondylolisthesis of lumbar region Superficial thrombophlebitis Tachycardia Thyroid goiter TMJ (temporomandibular joint syndrome) Tobacco use disorder Tongue ulcer Uterovaginal prolapse Vitamin D deficiency Past Medical History: Diagnosis Date ACL tear R knee, s/p repair in 2019 Anxiety Carpal tunnel syndrome, bilateral s/p B/L release in 2017 Chronic low back pain herniated disc s/p L5 lumbar disc surgery in 2019 Chronic neck pain s/p C6-7 fusion, s/p C6-7 plate removal then C5 and C6 plates in 2019 Chronic pain disorder Clotting disorder ([facility]) Depression Factor V Leiden ([facility]) Fibromyalgia, primary GERD (gastroesophageal reflux disease) Hyperlipidemia Hypertension Osteoarthritis Osteopenia Prediabetes Retinal hole of right eye Rotator cuff syndrome R shoulder, s/p repair with screw placed in 2018 Tobacco dependence in remission Vitamin D deficiency Family History Problem Relation Name Age of Onset COPD Mother Coronary artery disease Father 56 Social History Tobacco Use Smoking status: Every Day Current packs/day: 0.00 Average packs/day: 0.5 packs/day for 30.0 years (15.0 ttl pk-yrs) Types: Cigarettes Start date: 01/03/1994 Last attempt to quit: 01/04/2024 Years since quittin.3 Smokeless tobacco: Never Substance Use Topics Alcohol [...] not bruise/bleed easily. OBJECTIVE Visit Vitals BP 128/90 (BP Location: Right arm, Patient Position: Sitting) Pulse 84 Ht 1.626 m (5' 4 ) Wt 99.3 kg (219 lb) SpO2 97% BMI 37.59 kg/m??? Smoking Status Every Day BSA 2.12 m??? Medications: Current Outpatient Medications: aspirin 81 mg EC tablet, Take 81 mg by mouth in the morning., Disp: , Rfl: celecoxib (CeleBREX) 200 mg capsule, Take 1 capsule (200 mg) by mouth two times daily. Take 400 mg in the morning and 200 mg in the evening by mouth., Disp: 180 capsule, Rfl: 2 clonazePAM (KlonoPIN) 0.5 mg tablet, Take 0.5 mg by mouth if needed in the morni (more content not included)... [facility] 01-25-2024 Note Attestation signed by Jessie Reid [...] able to decrease Celebrex to 200 BID [facility] Follow-up Patient Visit [...] surgery with numbness in hands and decreased station operator strength, R>L shoulders, neck (better since ablation). AM stiffness lasts 1-2 hrs (was 2-3 hr prior),, on average daily. Denies joint erythema, swelling, warmth. Comprehensive History: Patient Active Problem List Diagnosis Chest pain, atypical Benign essential HTN HOFFMAN (dyspnea on exertion) Fibromyalgia Elevated d-dimer Mixed hyperlipidemia GERD without esophagitis Orthopnea Sleep disturbances Abnormal nuclear stress test Unstable angina (CMS/HCC) Coronary artery disease involving blue lake coronary artery of blue lake heart without angina pectoris Degenerative joint [...] 80 mg ta (more content not included)... [facility] 11-02-2023 Note Cardiovascular Medic [facility] SUBJECTIVE Chief Complaint Patient presents [...] Unstable angina (CMS/HCC) Coronary artery disease involving blue lake coronary artery of blue lake heart without angina pectoris Degenerative joint [...] , Rfl: o (more content not included)... [facility] 11-02-2023 Note ecg [facility] 10-26-2023 Note PT STATE SHE HAS BEE N DIZZY RECENTLY PT STATES TAKES MEDS TO MANAGE DEPRESSION SX [facility] 10-26-2023 Note Attestation signed by Jessie Reid [...] will decrease Celebrex due to worsening heartburn [facility] Follow-up Patient Visit [...] surgery with numbness in hands and decreased station operator strength, R>L shoulders, neck. AM stiffness lasts 1-2 hrs (was 2-3 hr prior), on average daily. Denies joint erythema, swelling, warmth. Comprehensive History: Patient Active Problem List Diagnosis Chest pain, atypical Benign essential HTN HOFFMAN (dyspnea on exertion) Fibromyalgia Elevated d-dimer Mixed hyperlipidemia GERD without esophagitis Orthopnea Sleep disturbances Abnormal nuclear stress test Unstable angina (CMS/HCC) Coronary artery disease involving blue lake coronary artery of blue lake heart without angina pectoris Degenerative joint [...] 400 mg capsul (more content not included)... [facility] 06-22-2023 Note Attestation signed by Jessie Reid [...] subchondral sclerosis noted on fist [facility] joints [facility] Follow-up Patient Visit [...] disturbances Abnormal nuclear stress test Unstable angina ([facility]) Coronary artery disease involving blue lake coronary artery of blue lake heart without angina pectoris Degenerative joint [...] Chronic pain disorder Depression Factor V Leiden ([facility]) Fibromyalgia, primary GERD (gastroesophageal reflux disease) Hyperlipidemia [...] the morning. aspirin (more content not included)... [facility] 04-07-2023 Miscellaneous Notes Notify patient medication sent [...] protein (CRP) C-REACTIVE PROTEIN (CRP) [SQCRP] 10/05/22 10/06/2310/05/23 Auth. provider: Gayle Washington MD Ass. diagnoses: Elevated sed rate, Elevated C-reactive protein (CRP) Chart notes faxed with confirmation. documented in this encounter [facility] 10-13-2022 Note OPERATIVE NOTE OPERATION DATE: [...] left cheek was prepped with Betadine. A Grainger tip Bovie was then used to make [...] the recovery room in good condition. [facility] 10-07-2022 Note EXAM: XR CHEST 2 V HISTORY: Pre-surgery evaluation COMPARISON: None. TECHNIQUE: PA and lateral views of the chest. FINDINGS: The cardiomediastinal silhouette is normal. No focal consolidation is identified. There is no pneumothorax. No pleural effusion is noted. The osseous structures are intact. IMPRESSION: No acute cardiopulmonary process. Electronically authenticated by: JOSIAH LASHAUN Date: 2022-10-07 11:27 [facility] 07-23-2022 Note CONSULTATION CONSULTATION DATE: 07/23/2022 [...] Patient does agree with this plan. [facility] 06-11-2022 Note CONSULTATION CONSULTATION DATE: 06/11/2022 [...] q.h.s. Activities that aggravate her pain are peer counselor and evening hours, housework, twisting the [...] re-evaluation and to review her x-rays. [facility] 05-18-2022 Miscellaneous Notes Patient's request for medication is as follows: Requested Prescriptions Signed Prescriptions Disp Refills celecoxib (CELEBREX) 200 mg capsule 180 capsule 3 Sig: Take 1 capsule by mouth twice daily. Prescription(s) as above. Please process accordingly. Gayle Washington MD Souqalmalt message sent to patient reminding her to [...] Lab Orders Expected Expires Ordered HLA-B27 PCR [[id number]] 06/19/21 06/18/22 06/18/21 Auth. provider: Gayle Washington MD Assoc. diagnoses: Elevated sedimentation rate VITAMIN D 25 HYDROXY [SQVITD] 03/19/22 12/17/22 12/17/21 Auth. provider: Gayle Washington MD Assoc. diagnoses: Vitamin D deficiency documented in this encounter [facility] 04-16-2022 Note CONSULTATION PROCEDURE DATE: 04/16/2022 [...] the clinic in three months' time. [facility] 04-09-2022 Note CONSULTATION CONSULTATION DATE: 04/09/2022 [...] to the clinic for her injection. [facility] 01-01-2022 Note CONSULTATION CONSULTATION DATE: 01/01/2022 This is a pleasant 51-year-old female returning to the clinic status post #2 bilateral MBB on C3, C4 and C5 that afforded her 80% relief for 5 days. 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 [facility] Signed and Approved by: BEN MONROE . 01/08/2022 10:22:00 [facility] 12-17-2021 Miscellaneous Notes Pt aware. Kamryn [...] to My Chart if tests completed at [facility]: Mildly low vitamin D- increase over [...] superior labral tear; documented in this encounter [facility] 12-12-2021 Note HNO ID: [id number] Author: Gayle Washington MD Service: ? Author [...] flat ground knees give out. COVID vaccine [employer] 06/26/21. Feels safe at home. 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 pain recommendations/injections, prn acetaminophen, start prn heat/ice/otc arthritis creams, low impact weightbearing exercise as tolerated, avoid aggravating triggers, June 04, 2021 SUBJECTIVE Ms. Garcia is a 51 year old female who presents for joint pain eval. Years of pain in R>L shoulders, neck, knees, hips, low back 2004 s/p C6/7 fusion 2016 s/p b/l [...] yes Dactylitis: no H/o precedent/frequent infection(s): no Enthesopathy/[place]'s/heel/plant ar tenderness: as above Skin thickening, psoriasis, photosensitivity, purpura: no Nail changes: ridges/ripples Alpecia, patchy: no Eye inflammation: glasses, R retinal hole SICCA: dry eyes Oral/nasal/genital ulcers: no GI problems-diarrhea/bleeding/IBD/Gl uten intolerence/Dysphagia: gerd Raynaud's phenomenon/digital ulcers: no Organ inv-Serositis: no Lung disease/ILD: no Myopathy/proximal muscle weakness: no Abnormal Urine or urethritis: no Renal/liver disease: no ELECTRIC DOLLY OPERATOR/PNS/sz/cva/cancer disease: no HEME-Cytopenias/LAD/Clots: no Fevers: no Fatigue: [...] MEDICAL HISTORY: PMH (more content not included)... [facility] 12-12-2021 History of Present illness [...] improved with mobic, see ortho/pain clinic for extermination supervisor pain recommendations/injections, prn acetaminophen, start prn heat/ice/otc [...] Urine or urethritis: no Renal/liver disease: no ELECTRIC DOLLY OPERATOR/PNS/sz/cva/cancer disease: no HEME-Cytopenias/LAD/Clots: no Fevers: no Fatigue: [...] MEDICAL HISTORY: PMH R retinal hole, s/p NAYEIL/BSO 2017 dropped bladder and s/p bladder sling, [...] negative Jarvis's test, tinel's and marti tests [facility] JTS:no Tend. JTS:R>L shoulders, L elbow, neck, [...] flat ground knees give out. COVID vaccine [employer] 06/26/21. Feels safe at home. Has enough food, supplies and medications. Overall uncomfortable but happy with rheum care. = supportive care, start celebrex/notify office if not tolerated, OFF mobic/initially improved with medication but now effect wore off, prn flexeril, see pain clinic for extermination supervisor pain recommendations, see ortho/pain clinic for extermination supervisor pain recommendations/injections, prn acetaminophen, start prn heat/ice/otc [...] to side effects OFF lyrica no response extermination supervisor pain recommendations per primary care provider/pain clinic [...] video & audio (virtual) or phone or [id number] patient care, completing clinical documentation, obtaining and/or [...] shared medical records. cc Dr.Renee Leora Gibbons, DO documented in this encounter [facility] 12-12-2021 Instructions Gayle Washington MD - [...] to side effects OFF lyrica no response extermination supervisor pain recommendations per primary care provider/pain clinic nonfasting labs as scheduled Thank you. documented in this encounter [facility] 12-09-2021 Miscellaneous Notes Patient has been scheduled as requested for 12/12/21. Referral has been attached. I spoke with Ms. Garcia and she is aware of all of the appointment details. Nataliya DYKES December 09, 2021 2:43 PM Patient calling to schedule follow up appt with Dr Washington no schedule pulling for [facility] [place]. Patient requesting call at [phone] Washington is still at [facility]. Please advise. documented in this encounter [facility] 11-18-2021 Note PAIN MANAGEMENT CONS ULTATION CONSULTATION DATE: 11/18/2021 CHIEF COMPLAINT: Cervical pain. HISTORY OF PRESENT ILLNESS: This is a 51-year-old female who had, in the past, been seen by Dr. Brunner, Pain Management in [place], [place]. The patient had changed her insurances to [employer] and, as such, Dr. Brunner does not [...] like to proceed. CC: Kimberley Gibbons D.O. [facility] Signed and Approved by: DR RACHEL STOCK . 11/25/2021 12:22:00 [facility] 10-14-2021 Evaluation note Encounter Date [...] nerve block in the future if needed. [employer] Other 12-28-2021 Evaluation note* Encounter Date Diagnosis [...] right hip to further evaluate her pain. [employer] Other 12-15-2021 Evaluation note* Encounter Date Diagnosis [...] (ICD-10 - G89.29) Continue medications as prescribed [facility] Other 11-11-2021 Evaluation note* Encounter Date Diagnosis [...] (ICD-10 - G89.29) Continue medications as prescribed [facility] Other 09-29-2021 Evaluation note* Encounter Date Diagnosis [...] injection under ultrasound guidance in the future. [employer] Other Evaluation note* Diagnosis Secondary osteoarthritis of [...] Chronic pain syndrome documented in this encounter [facility] noteNo InformationNort Letao Other Evaluation note* Diagnosis Secondary osteoarthritis of multiple sites- Primary Osteoarthrosis involving, or with mention of more than one site, but not specified as generalized, multiple sites Vitamin D deficiency Unspecified vitamin D deficiency Fibromyalgia Mylagia and myositis, unspecified documented in this encounter [facility] note* Diagnosis Secondary osteoarthritis of multiple sites Osteoarthrosis involving, or with mention of more than one site, but not specified as generalized, multiple sites documented in this encounter [facility] note* Diagnosis Chronic hip pain, bilateral Chronic left shoulder pain Pain in joint, shoulder region Chronic pain of both knees Bilateral hand pain Pain in limb documented in this encounter [facility] note* Diagnosis Secondary osteoarthritis of multiple sites Osteoarthrosis involving, or with mention of more than one site, but not specified as generalized, multiple sites Cervicalgia Chronic bilateral low back pain with bilateral sciatica documented in this encounter [facility] note* Diagnosis Flatulence, eructation and gas pain Flatulence, eructation, and gas pain Chronic GERD documented [facility] general Narrative - Reported* Type Description Date Medical History allergies Medical History factor 5 blood disorder Medical History anxiety Medical History depression Medical History bipolar Medical History lumbar DDD Surgical History back surgery 06/2021 Surgical History neck surgery 05/2021 Hospitalization History see above [employer] Other History general Narrative - Reported* Type Description Date Medical History allergies Medical History factor 5 blood disorder Medical History anxiety Medical History depression Medical History bipolar Medical History lumbar DDD Medical History osteoarthritis of multiple joint s Surgical History back surgery 06/2021 Surgical History neck surgery 05/2021 Hospitalization History see above [employer] Other History of Present illness NarrativePatient has continued intermittent pain symptoms in her right shoulder she is remotely status post rotator cuff repair she had a follow-up MRI scan recently she would like to review with me today. She had a subacromial injection but it did not resolve all of her symptoms.[id number] Work Phone: Reason for referral (narrative)* Diagnostic Procedure Only (Routine) - Closed Specialty Diagnoses / Procedures Referred By Contac t Referred To Contact XR IMAGING Diagnoses Bilateral hand pain Procedures XR HAND GENERAL 3V PA/LAT/OBL BILATERAL X-RAY HAND MINIMUM 3 VIEWS Gayle Washington MD [address] [place] [address] Xr Imaging Referral ID Status Reason Start Date Expiration Date V isits Requested Visits Authorized [id number] Closed Auto-Generate d Referral 06/04/2021 07/04/2022 1 1 * Diagnostic Procedure Only (Routine) - Closed Specialty Diagnoses / Procedures Referred By Contac t Referred To Contact XR IMAGING Diagnoses Chronic pain of both knees Procedures XR KNEE GENERAL 4V AP BOTH/PA BOTH/LAT/MERC BILATERAL KNEE AP-WGT/LAT/MERCHANT Gayle Washington MD [address] [place] [address] Xr Imaging Referral ID Status Reason Start Date Expiration Date V isits Requested Visits Authorized [id number] Closed Auto-Generate d Referral 06/04/2021 07/04/2022 1 1 * Diagnostic Procedure Only (Routine) - Closed Specialty Diagnoses / Procedures Referred By Contac t Referred To Contact XR IMAGING Diagnoses Chronic left shoulder pain Procedures XR SHOULDER GENERAL 3V OR MORE AP/TRUE AP/OTHER LEFT X-RAY SHOULDER COMPLET MIN 2 VIEWS Gayle Washington MD [address] [place] [address] Xr Imaging Referral ID Status Reason Start Date Expiration Date V isits Requested Visits Authorized [id number] Closed Auto-Generate d Referral 06/04/2021 07/04/2022 1 1 * Diagnostic Procedure Only (Routine) - Closed Specialty Diagnoses / Procedures Referred By Contac t Referred To Contact XR IMAGING Diagnoses Chronic hip pain, bilateral Procedures XR HIP BILATERAL 5V PEL/AP/LAT EACH HIP RADEX HIPS BILATERAL WITH PELVIS MINIMUM 5 VIEWS Gayle Washington MD [address] [place] [address] Xr Imaging Referral ID Status Reason Start Date Expiration Date V isits Requested Visits Authorized [id number] Closed Auto-Generate d Referral 06/04/2021 07/04/2022 1 1 [facility] for visit Narrative* Diagnostic Procedure Only (Routine) - Closed Specialty Diagnoses / Procedures Referred By Contac t Referred To Contact XR IMAGING Diagnoses Bilateral hand pain Procedures XR HAND GENERAL 3V PA/LAT/OBL BILATERAL X-RAY HAND MINIMUM 3 VIEWS Gayle Washington MD [address] [place] [address] Xr Imaging Referral ID Status Reason Start Date Expiration Date V isits Requested Visits Authorized [id number] Closed Auto-Generate d Referral 06/04/2021 07/04/2022 1 1 [facility] Summary Purpose Family History No Family [...] pain, left Procedures CONSULT TO ORTHOPAEDICS OFFICE/OUTPATIENT [facility] 60-74 MINUTES Gayle Washington MD [address] [place] [address] Referral ID Status Reason Start Date Expiration Date Visits Requested Visits Authorized [id number] Pending Review PCP Requested Referral 12/12/2021 12/12/2022 1 1 Additional Source Comments INFORMATION SOURCE (unrecogn ized section and content) DATE CREATED AUTHOR 06/20/2020 [facility] DATE CREATED AUTHOR AUTHOR'S ORGANIZ ATION 06/27/2020 [facility] DATE CREATED AUTHOR AUTHOR'S ORGANIZ ATION 12/01/2020 [facility] DATE CREATED AUTHOR AUTHOR'S ORGANIZ ATION 02/23/2021 [facility] DATE CREATED AUTHOR AUTHOR'S ORGANIZ ATION 02/23/2021 [employer] DATE CREATED AUTHOR AUTHOR'S ORGANIZ ATION 12/26/2021 [facility] DATE CREATED AUTHOR AUTHOR'S ORGANIZ ATION 07/02/2022 [facility] DATE CREATED AUTHOR AUTHOR'S ORGANIZ ATION 10/08/2022 [facility] DATE CREATED AUTHOR AUTHOR'S ORGANIZ ATION 10/20/2022 [facility] DATE CREATED AUTHOR AUTHOR'S ORGANIZ ATION 10/30/2023 [facility] DATE CREATED AUTHOR AUTHOR'S ORGANIZ ATION 04/19/2024 [facility] DATE CREATED AUTHOR AUTHOR'S ORGANIZ ATION 05/23/2024 [facility] DATE CREATED AUTHOR AUTHOR'S ORGANIZ ATION 06/04/2024 [facility] Source Comments (unrecognize d section and content) In the event this informatio n is protected by the Federal Confidentiality of Alcohol and Drug Abuse Patient Records regulations: The Federal rules restrict any use of the information to criminally investigate or prosecute any alcohol or drug abuse patient.[facility] the event this information is protected by the Federal Confidentiality of Alcohol and Drug Abuse Patient Records regulations: The Federal rules restrict any use of the information to criminally investigate or prosecute any alcohol or drug abuse patient.[facility] the event this information is protected by the Federal Confidentiality of Alcohol and Drug Abuse Patient Records regulations: The Federal rules restrict any use of the information to criminally investigate or prosecute any alcohol or drug abuse patient.[facility] the event this information is protected by the Federal Confidentiality of Alcohol and Drug Abuse Patient Records regulations: The Federal rules restrict any use of the information to criminally investigate or prosecute any alcohol or drug abuse patient.[facility] the event this information is protected by the Federal Confidentiality of Alcohol and Drug Abuse Patient Records regulations: The Federal rules restrict any use of the information to criminally investigate or prosecute any alcohol or drug abuse patient.[facility] the event this information is protected by the Federal Confidentiality of Alcohol and Drug Abuse Patient Records regulations: The Federal rules restrict any use of the information to criminally investigate or prosecute any alcohol or drug abuse patient.[facility] Reason for Visit (unrecogniz ed section and content) Reason Comments Follow Up Pain ongoing generalized pain. Specialty Diagnoses / Procedures Referred By Margarita vanegas Referred To Contact RHEUMATOLOGY Diagnoses Follow Up Procedures OFFICE/OUTPATIENT ESTABLISHED MOD MDM 30-39 MIN Follow Up Gayle Washington MD [address] [place] [address] [facility] [address] [place] [address] Referral ID Status Reason Start Date Expiration Date Visits Requested Visits Authorized [id number] Waiting for Response OON/Self Pay Override Patient cleared - OON Required Payment Collected 12/08/2021 03/08/2022 1 1 Reason Comments Appointment Reason Comments Results Care Teams (unrecognized sec tion and content) Yoke Presser Relationship Specialty Start Date End Date Kimberley Gibbons DO [address] [place] [address] PCP - General Family Practice 06/04/21 Yoke Presser Relationship Specialty Start Date End Date Kimberley Gibbons DO [address] [facility] [place] [address] PCP - General Family Practice 06/04/21 Yoke Presser Relationship Specialty Start Date End Date Kimberley Gibbons, DO [address] [place] [address] PCP - [facility] Medicine 06/04/21 Yoke Presser Relationship Specialty Start Date End Date Kimberley Gibbons, [address] [place] [address] PCP - [facility] Medicine 06/04/21 Yoke Presser Relationship Specialty Start Date End Date Kimberley Gibbons DO [address] [place] [address] PCP - [facility] 06/04/21 Yoke Presser Relationship Specialty Start Date End Date Kimberley Gibbons DO [address] [place] [address] PCP - [facility] 06/04/21 FOR RECORDS PERTAINING TO PATIENTS WHO [...] THE PRIMARY CLINICAL RECORDS. [employer] [facility]. provides no warranty or guarantee of the accuracy or completeness of information in this document.
[2024-06-05 06:45] VITALS: BP 129/89; PULSE 84; TEMP 36.3; O2SAT 94
[2024-06-05] MEDS: IOHEXOL 240 MG/ML - 10 ML VIAL 24 MG INJ (07:43)
[2024-06-05] MEDS: LIDOCAINE HCL 2% 400 MG/20 ML MDV 3 ML INJ (07:43)
[2024-06-05] MEDS: DEXAMETHASONE SOD PHOS 10 MG/ML VIAL INJ (07:43)
[2024-06-05] MEDS: BUPIVACAINE HCL 0.25% PF 25 MG/10 ML VIAL INJ (07:43)
[2024-06-05 07:44] VITALS: BP 129/78; BP 130/81; PULSE 82; PULSE 85; O2SAT 94; O2SAT 96
--- NOTE | 2024-06-05 07:45 | P.ON_ITS ---
Date of procedure: 06/05/24 Pre-op diagnosis: Pain due to cervical radiculopathy Post-op diagnosis: same as pre-op Procedure: Procedure: Left C4-5, 5-6 transforaminal epidural steroid injection Medications: Bupivacaine 0.25% 1cc, lidocaine 2% 1cc, dexamethasone 10mg The patient was seen and examined in the preoperative holding area.? Informed consent was obtained and placed on the chart.? Patient was brought to the medical procedure unit and placed in the prone position where a timeout was completed verifying the correct patient, procedure site, position, and planned special equipment using sterile aseptic technique.? Under direct fluoroscopic visualization a 25-gauge Quincke tipped spinal needle was advanced to the designated neural foramen where contrast dye was injected to show adequate spread.? The needle was inserted at level left C4-5. There was no evidence of v ascular or adverse uptake.? Epidural spread was appreciated.? The above- mentioned injectate was then placed in a 1.5 mL aliquot preceded by negative aspiration.? The needle was removed. The needle was inserted and the procedure repeated at level left C5-6.? The surgery site was covered.? Patient was taken to the postprocedural recovery area and monitored for an appropriate length of time before found suitable for discharge in the accompaniment of a responsible adult. Anesthesia: Local Surgeon: Rosibel Cotton Pathology: none sent Condition: stable Disposition: no change
== END 2024-06-05 07:49 | disposition home or self-care (01) ==
LOC: SURGOUT 06:36
PROVIDERS: Visit Provider Anesthesiology
DX: M54.12 Radiculopathy, cervical region (principal)
CPT/HCPCS: 64479; 64480; J0665; J1100; Q9966

== ENCOUNTER 2024-06-14 10:24 | Outpatient (OUT) | payer OTHER, SELFPAY ==
--- NOTE | 2024-06-14 11:10 | PM.CN ---
Consult Note: HPI Data of Consult Patient: known to practice within the last 3 years Requesting Physician: Stephanie Mike NP Primary Care Provider: Non-Staff Physician, MD Consult Narrative Reason for consult: chronic neck pain Narrative: Lizbeth Garcia a pleasant 53 year old female presents for evaluation of chronic pain. Patient has a hx of cervical RFAs with Dr Thornton and tailbone RFAs with Dr Caballero. Lumbar spine surgery with lumbosacral fusion per pt L5-Sacral. Patient reporting pain today 2/10 in neck and 8/10 in low back and legs. increased with twisting, pushing, pulling, bending. failed to benefit from HEP greater than 6 weeks. recent left C4/5 C5/6 TFESI providing significant ongoing relief, >90% improvement per pt. Pt would like to address low back and leg pain today. utilizes gabapentin, celebrex, flexeril, and marijuana with mild relief, denies side effects. cc:: CC: Stephanie Mike NP Review of Systems ROS Status of ROS 10 or more systems reviewed and unremarkable except as noted in history and below Musculoskeletal Reports: back pain and neck pain PFSH PFSH Medical History Former cigarette smoker ?Z87.891 - Personal history of nicotine dependence (ICD-10) Heartburn ?R12 - Heartburn (ICD-10) Acid reflux ?K21.9 - Gastro-esophageal reflux disease without esophagitis (ICD-10) Osteoarthritis ?M19.90 - Unspecified osteoarthritis, unspecified site (ICD-10) Low back pain ?M54.50 - Low back pain, unspecified (ICD-10) Factor 5 Leiden mutation, heterozygous ?D68.51 - Activated protein C resistance (ICD-10) Anxiety ?F41.9 - Anxiety disorder, unspecified (ICD-10) Obesity ?E66.9 - Obesity, unspecified (ICD-10) Diabetes ?E11.9 - Type 2 diabetes mellitus without complications (ICD-10) SOB (shortness of breath) ?R06.02 - Shortness of breath (ICD-10) High cholesterol ?E78.00 - Pure hypercholesterolemia, unspecified (ICD-10) Hypertension ?I10 - Essential (primary) hypertension (ICD-10) Irregular heart beat ?I49.9 - Cardiac arrhythmia, unspecified (ICD-10) Angina at rest ?I20.89 - Other forms of angina pectoris (ICD-10) Surgical History H/O arthroscopic knee surgery ?Z98.890 - Other specified postprocedural states (ICD-10) H/O lumbosacral spine surgery ?Z98.890 - Other specified postprocedural states (ICD-10) H/O cervical spine surgery ?Z98.890 - Other specified postprocedural states (ICD-10) H/O arthroscopy of shoulder ?Z98.890 - Other specified postprocedural states (ICD-10) H/O carpal tunnel repair ?Z98.890 - Other specified postprocedural states (ICD-10) H/O: hysterectomy ?Z90.710 - Acquired absence of both cervix and uterus (ICD-10) Meds Home Medications and Allergies Home Medications ?Medication ?Instructions ?Recorded ?Confirmed ?Type B-complex with vitamin C 1 tab PO DAILY 08/26/23 06/05/24 History acetaminophen 500 mg tablet 1,500 mg PO DAILY PRN pain 08/26/23 06/05/24 History (Tylenol Extra Strength) amlodipine 5 mg tablet 5 mg PO DAILY 08/26/23 06/05/24 History aspirin 81 mg capsule 81 mg PO DAILY 08/26/23 06/05/24 History atorvastatin 80 mg tablet 80 mg PO DAILY 08/26/23 06/05/24 History celecoxib 400 mg capsule (Celebrex) 400 mg PO BID 08/26/23 06/05/24 History cholecalciferol (vitamin D3) 50 50 mcg PO DAILY 08/26/23 06/05/24 History mcg (2,000 unit) capsule clonazepam 0.5 mg tablet 0.5 mg PO BID 08/26/23 06/05/24 History cyclobenzaprine 10 mg tablet 10 mg PO BID 08/26/23 06/05/24 History desvenlafaxine succinate 100 mg 100 mg PO DAILY 08/26/23 06/05/24 History tablet,extended release 24 hr (Pristiq) ezetimibe 10 mg tablet 10 mg PO DAILY 08/26/23 06/05/24 History lamotrigine 300 mg tablet,extended 300 mg PO DAILY 08/26/23 06/05/24 History release 24 hr magnesium glycinate PO 08/26/23 History metoprolol succinate 25 mg 25 mg PO DAILY 08/26/23 06/05/24 History tablet,extended release 24 hr quetiapine 200 mg tablet 200 mg PO DAILY 08/26/23 06/05/24 History gabapentin 300 mg capsule 300 mg PO DAILY #30 caps 03/30/24 06/05/24 Rx Allergies Allergy/AdvReac Type Severity Reaction Status Date / Time ibuprofen AdvReac Mild Gastrointestinal Verified 06/05/24 07:06 Upset tramadol AdvReac Mild Gastrointestinal Verified 06/05/24 07:06 Upset Exam Constitutional Documenting provider has reviewed patient's vital signs: yes Common normals: no apparent distress, oriented x3, healthy appearing, alert and well nourished General appearance: cooperative HENMT Common normals: normocephalic, hearing grossly normal bilaterally and moist oral mucous membranes Head and scalp: normocephalic Eye Common normals: PERRL Pupil: PERRL Neck & C-Spine Common normals: full ROM General: normal visual inspection Cervical spine: cervical ROM normal; no pain with cervical ROM Other: negative spurlings strength 5/5 in BUE Chest Common normals: inspection of chest normal Respiratory Common normals: normal respiratory effort, no retractions and no use of accessory muscles Back & Pelvis Lumbar spine/lower back: pain with ROM, lumbar spinal tenderness, straight leg raise positive right and straight leg raise positive left Sacroiliac joints: SI joint(s) abnormal Other: right positive pete(patricks), gaenslens, thigh thrust, compression test decreased sensation to bilateral L4/5, right moreso than left strength 4/5 in BLE Extremity Common normals: normal to inspection and full ROM Neuro Common normals: oriented x3, CN's II-XII intact bilaterally, moves all extremities, no focal motor deficits, no sensory deficits noted and deep tendon reflexes 2+ bilaterally Sensorium/orientation: alert Motor exam: no movement abnormalities noted Psych Common normals: mental status grossly normal, thought process normal, cooperative, affect normal, speech normal and activity/motor behavior normal Speech: normal speech Thought process: normal thought process Results Additional Findings Additional findings: If on a controlled substance or opioids, I have checked an [place] report on this patient and there are no aberrancies noted in the prescribing history.??If on a controlled substance or opioid a drug screen was completed and reviewed within the last year, and if there has not been a drug screen completed we ordered one today to monitor higher risk, state monitored pain medication use. As part of providing excellent, safe, comprehensive care, the following was completed at our patient's visit: 1. A medication reconciliation and review to ensure accurate knowledge of current/active medications, including asking our patients to inform us about any [id number] medications or herbal remedies/nutritional supplements/alternative remedies. 2. A review to specifically ensure our patients have had annual screening for screening for depression, screening for tobacco use, and screening for unhealthy alcohol use. For concerning screenings had a discussion with the patient, provided patient education, and recommended follow-up with primary care provider when appropriate. If patient noted with a risk of falling, they received education on strength, gait, and balance training to prevent future risk of falling. Assessment and Plan Assessment and Plan (1) Lumbar stenosis with neurogenic claudication: (2) Sacroiliitis: (3) Failed neck syndrome: (4) Cervical radiculopathy: (5) Chronic pain syndrome: Plan bilateral L4-5 TFESI under fluoroscopy, risks vs benefits reviewed increase gabapentin 300mg TID continue flexeril 10mg daily prn continue celebrex through rheumatology continue NNCP, marijuana and benzo use f/u 2 weeks after [facility]
== END 2024-06-14 10:25 | disposition home or self-care (01) ==
LOC: PM 10:25
PROVIDERS: Visit Provider Nurse Practitioner
DX: M48.062 Spinal stenosis, lumbar region with neurogenic claudication (principal); M46.1 Sacroiliitis, not elsewhere classified; M96.1 Postlaminectomy syndrome, not elsewhere classified; M54.12 Radiculopathy, cervical region; G89.4 Chronic pain syndrome
CPT/HCPCS: G0463

== ENCOUNTER 2024-07-03 10:11 | Day surgery (SDC) | payer OTHER, SELFPAY ==
--- OUTSIDE RECORDS SUMMARY | 2024-07-03 10:30 | XMS_ITS | CCD ---
Author Organization [facility] Care Team Providers Care Breakfast Hostess Name Role Phone ZAIRE, CRISTOBAL F Primary Care Unavailable FELICIA, FEMI H. Attending Unavailable FELICIA, FEMI H. Referring Unavailable FELICIA, FEMI H. Referring Unavailable FELICIA, FEMI H. Admitting Unavailable ZAIRE, CRISTOBAL F Primary Care Unavailable FELICIA, FEMI H. Attending Unavailable FELICIA, FEMI H. Admitting Unavailable ZAIRE, CRISTOBAL F Primary Care Unavailable FELICIA, FEMI H. Attending Unavailable ZAIRE, CRISTOBAL F Primary Care Unavailable EFLICIA, FEMI H. Referring Unavailable ZAIRE, CRISTOBAL F Primary Care Unavailable FELICIA, FEMI H. Referring Unavailable Ione, Cristobal F Unavailable Edwige DO, Kimberley Leora Primary Care Provider [phone] Emmett Brunner Unavailable Letty Olson Unavailable Edwige [...] DR LOPEZ Primary Care Unavailable TIMMIS, DR MONGTOMERY Attending Unavailable TIMMIS, DR MONTGOMREY Admitting Unavailable ARTURO PINK Consulting Unavailable JOSIAH [...] Layne Attending Unavailable STOCK ., DR RACHEL Lyane Admitting Unavailable STOCK ., DR RACHEL Layne Consulting Unavailable JAVIER ROLDAN Consulting Unavailable Kimberley Gibbons DO Primary Care Provider [phone] Unavailable Primary Care Provider UnavailKIMBERLEY Ashley Attending Unavailable FRANKLIN AYA Referring Unavailable CLIFFORD VANN Attending Unavailab IZABEL Steiner Attending Unavailable KIMBERLEY GIBBONS Attending Unavailable SOLITARIO GARCÍA Attending Unavailable TIM SAMUELS Attending Unavailable DALE HUTCHISON Attending Unavailable SOLITARIO GARCÍA Attending Unavailable SOLITARIO GARCÍA Attending Unavailable Yury ARGUELLO, Rosibel Laurent Attending Unavailable Yury ARGUELLO, Rosibel Laurent Attending Unavailable Giedraitis , Rosibel Laurent Attending Unavailable Giedraitis , Andmaurice Laurent Attending Unavailable Giedraitis , Rosibel Laurent Attending Unavailable Gieditis , Rosibel Laurent Attending Unavailable Gijohnnie ARGUELLO, Rosibel Laurent Attending Unavailable MAXIMILIANO YOU Attending Unavailable MAXIMILIANO YOU Admitting Unavailable NANCY LUDWIG Admitting Unavailable NANCY LUDWIG Attending Unavailable NICOLE TELLES Referring Unavailable NICOLE TELLES Referring Unavailable NICOLE TELLES Referring Unavailable Allergies Allergy Classification Reported Allergen(s) Allergy Type Date of Onset Reaction(s) Facility (10 sources) Ibuprofen; 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: [IBUPROFEN] Drug Allergy 0 Unknown, Diarrhea [facility] (20 sources) traMADol; 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: [TRAMADOL] Drug Allergy 9 Unknown, Nausea Only [facility] (1 source) Ibuprofen Drug Allergy [facility] (1 source) traMADol Drug Allergy 2 [facility] Repository Medications Current Medications Medication Drug Class(es) Dates Sig (Normalized) Sig (Original) acetaminophen 325 mg / oxyCODONE hydrochloride 5 mg oral tablet (12 sources) Opioid Agonist take 1 tablet by mouth every six hours Percocet 5-325 MG 1 tablet as needed Orally every 6 hrs Active apixaban 2.5 mg oral tablet (1 source) Factor Xa Inhibitor Start: 01-11-2024 take 1 tablet by mouth twice daily ELIQUIS 2.5 MG TABS tablet Take 1 tablet by mouth 2 times daily 01/11/2024 Active Aspir-81 (12 sources) Aspir-81 Active aspirin 81 mg delayed release oral tablet (8 sources) Platelet Aggregation Inhibitor, Nonsteroidal Anti-inflammatory Drug Start: 01-07-2021 take 1 tablet by mouth once daily in the morning aspirin 81 MG EC tablet Take 1 tablet by mouth every morning 01/07/2021 Active Comment on above: Take 81 mg by mouth once daily. atorvastatin 80 mg oral tablet (2 sources) HMG-CoA Reductase Inhibitor Start: 08-26-2023 atorvastatin (LIPITOR) 80 MG tablet 08/26/2023 Active b complex vitamins capsule (2 sources) take 1 capsule by mouth once daily b complex vitamins capsule Take 1 capsule by mouth daily Active take 1 capsule by mouth once carol ly b complex vitamins capsule Take 1 capsule by mouth daily 0 Active celecoxib 400 mg oral capsule (8 sources) Nonsteroidal Anti-inflammatory Drug Start: 08-22-2023 End: 06-09-2024 celecoxib (CELEBREX) 400 MG capsule 08/22/2023 06/09/2024 Discontinued (Stop Taking at Discharge) Start: 10-05-2022 End: 04-07-2023 take 1 capsule [...] twice daily. Take 1 capsule by mo uth two times a day. clonazePAM 0.5 mg oral tablet (20 sources) Benzodiazepine Start: 03-12-2020 clonazePAM (KLONOPIN) 0.5 MG tablet nightly. 03/12/2020 Active Start: 03-12-2020 take 1 tablet by bautista th twice daily clonazePAM (KLONOPIN) 0.5 MG tablet TK 1 T PO BID 0 03/12/2020 Active Comment on above: Take 0.5 mg by mouth twice daily. 24 hr desvenlafaxine succinate 100 mg extended release oral tablet (17 sources) Serotonin and Norepinephrine Reuptake Inhibitor Start: 11-08-2022 desvenlafaxine succinate (PRISTIQ) 100 MG TB24 extended release tablet 11/08/2022 Active take 100 mg by mouth once daily DESVENLAFAXINE SUCCINATE ORAL Take 100 mg by mouth. Once daily. 0 Active take 1 tablet by bautista th every twenty-four hours Pristiq 100 MG 1 tablet Orally Once a da y Active Comment on above: Take 100 mg by mouth . Once daily. ezetimibe 10 mg oral tablet (1 source) Dietary Cholesterol Absorption Inhibitor take 1 tablet by mouth once daily ezetimibe (ZETIA) 10 MG tablet Take 1 tablet by mouth daily Active famotidine (PEPCID) 20 mg in sodium chloride (PF) 0.9 % 10 mL injection (1 source) Start: 024 take 10 mL intravenously once daily 20 mg, IntraVENous, 2 TIMES DAILY, First dose on Wed06/09/24 at 1045, Until Discontinued, IV Push over minimum of 2 minutes - Dilute with 10 mL NS, Pre-op (day of surgery) fluticasone furoate 0.0275 mg/actuat metered dose nasal spray (20 sources) Corticosteroid End: fluticasone (VERAMYST) 27.5 MCG/SPRAY nasal spray by Each Nostril route daily Active fluticasone prop ionate (FLONASE NASAL) Use in the nose. OTC, 2 times daily. 0 Active Flonase Active Comment on above: Use in the nose. OTC , 2 times daily. by Each Nostril rout e daily gabapentin 300 mg oral capsule (1 source) Anti-epileptic Agent take 1 capsule by mouth once daily gabapentin (NEURONTIN) 300 MG capsule Take 1 capsule by mouth daily. Active 24 hr metoprolol succinate 25 mg extended release oral tablet (2 sources) beta-Adrenergic Dc Start: 12-01-2022 End: 12-01-2023 metoprolol succinate (TOPROL XL) 25 MG extended release tablet Take 1 tablet by mouth 12/01/2022 Active naloxone 0.4 mg in 10 mL sodium chloride syringe (1 source) Start: 06-09-2024 Manti-3 Fatty Acids (FISH OIL) 1200 MG CAPS (2 sources) Manti-3 Fatty Ac ids (FISH OIL) 1200 MG CAPS Take by mouth daily Active Manti-3 Fatty Ac ids (FISH OIL) 1200 MG CAPS Take by mouth daily 0 Active omeprazole 20 mg delayed release oral capsule (1 source) Proton Pump Inhibitor Start: 03-30-2024 take 1 capsule by mouth once daily before breakfast omeprazole (PRILOSEC) 20 MG delayed release capsule TAKE ONE CAPSULE BY MOUTH EVERY MORNING BEFORE BREAKFAST 30 capsule 1 03/30/2024 Active pregabalin 50 mg oral capsule (12 sources) take 1 capsule by mouth every twelve hours Lyrica 50 MG 1 capsule Orally Twice a day Active Senna Leaves (2 sources) Start: 05-09-2020 SENNA CO as needed 05/09/2020 Active Start: 05-09-2020 SENNA CO as ne eded 0 05/09/2020 Active 5 ml sodium chloride 9 mg/ml injection (4 sources) Start: 06-09-2024 Start: 06-09-2024 sucralfate 1000 mg oral tablet (1 source) Aluminum Complex Start: 02-03-2024 take 1 tablet by mouth four times daily sucralfate (CARAFATE) 1 GM tablet Take 1 tablet by mouth 4 times daily 120 tablet 1 02/03/2024 Active Completed/Discontinued Medications Medication Drug Class(es) Dates Sig (Normalized) Sig (Original) amLODIPine 10 mg oral tablet (20 sources) Dihydropyridine Calcium Channel Dc Start: 05-09-2021 take 1 tablet by mouth once daily amLODIPine (NORVASC) 10 mg tablet Take 10 mg by mouth once daily. 0 05/09/2021 Active Start: 05-22-2020 take 1 tablet by bautista th once daily amLODIPine (NORVASC) 5 MG tablet Take 1 tablet by mouth nightly 05/22/2020 Active Comment on above: Take 10 mg by mouth once daily. cholecalciferol 0.05 mg oral capsule (4 sources) Vitamin D Cholecalciferol, Vitamin D3, (VITAMIN D-3) 50 mcg (2,000 unit) cap Take by mouth. 0 Active Comment on above: Take by mouth. cyclobenzaprine hydrochloride 5 mg oral tablet (20 sources) Muscle Relaxant Start: 10-06-19 End: 04-07-20 take 1-2 tablets by mouth once daily cyclobenzaprine (FLEXERIL) 5 mg tablet Indications: Cervicalgia , Chronic bilateral low back pain with bilateral sciatica Take 1-2tab by mouth per day. May cause drowsiness 60 tablet 3 04/07/2023 Active Start: 10-04-2022 cyclobenzaprin e (FLEXERIL) 10 MG tablet 10/04/2022 Active Start: 06-04-2021 take 1-2 tablets by mouth [...] oral tablet (6 sources) Estrogen Start: 06-03-20 take 1 tablet by mouth once daily Estradiol (ESTRACE) 0.5 mg tablet Take 0.5 mg by mouth once daily. 0 06/03/2021 Active Comment on above: Take 0.5 mg by mouth once daily. vysaq-[id number] joey-ast 1,867-048-30-80 mg cap (4 sources) qubdx-fz-5-dha-e pa-joey spho-ast 1,054-076-37-80 mg cap Take by mouth. 0 Active Comment on above: Take by mouth. lamoTRIgine 100 mg oral tablet (20 sources) Mood Stabilizer, Anti-epileptic Agent Start: 12-03-19 22 lamoTRIgine (LAMICTAL) 100 mg tablet take 1.5 tablets by mouth once d aily lamoTRIgine (LAMICTAL) 200 MG tablet Take 1.5 tablets by mouth nightly Active lamoTRIgine (IRIZARRY ICTAL) 200 mg tablet Take 300 mg by mouth once daily as needed. 0 Active take 1 tablet by bautista th every twenty-four hours LaMICtal 200 MG 1 tablet Orally Once a d ay Active Comment on above: Take 300 mg by mouth once daily as needed. loratadine 10 mg oral tablet (18 sources) Start: 01-07-2021 loratadine (CLARITIN) 10 mg tablet Loratadine Active 10 MG PO Daily January 07, 2021 7:15am 0 01/07/2021 Active take 1 capsule by mouth once carol ly loratadine (CLARITIN) 10 MG capsule Take 1 capsule by mouth daily Active Comment on above: Loratadine Active 10 MG PO Daily January 07, 2021 7:15am meloxicam 15 mg oral tablet (13 sources) Nonsteroidal Anti-inflammatory Drug Start: End: take 1 tablet by mouth once daily [...] 1 tablet by bautista th once daily. 2 ml metoclopramide 5 mg/ml prefilled syringe (1 source) Dopamine-2 Receptor Antagonist Start: 10 mg, IntraVENous, EVERY 6 HOURS, First dose on Wed06/09/24 at 1045, Until Discontinued, IV Push: Max 10 mg over 1-2 minutes., PACU only 2 ml ondansetron 2 mg/ml injection (1 source) Serotonin-3 Receptor Antagonist Start: End: 4 mg, IntraVENous, ONCE PRN, 1 dose, Starting on Wed06/09/24 at 1010, Until Wed06/09/24 at 1022, Nausea, Pre-op (day of surgery) PNV Comb No.59/Iron/FA/DHA (-DHA ORAL) (4 sources) PNV Comb No.59/Iron/FA/DHA (-DHA ORAL) Take by mouth. 0 Active Comment on above: Take by mouth. QUEtiapine 400 mg oral tablet (20 sources) Atypical Antipsychotic Start: take 1 tablet by mouth once daily at bedtime QUEtiapine (SEROQUEL) 400 mg tablet Take 400 mg by mouth daily at bedtime. 0 05/06/2021 Active take 2 tablets by mouth once carol ly QUEtiapine (SEROQUEL) 50 MG tablet Take 2 tablets by mouth nightly Active take 1 tablet by bautista th every twenty-four hours SEROquel 300 MG 1 tablet at bedtime Oral ly Once a day Active Comment on above: Take 400 mg by mouth daily at bedtime. triamcinolone acetonide 40 mg/ml injectable suspension (2 sources) Corticosteroid Start: 04-12-2022 Kenalog-40 Oct, 40 mg Start: 10-14-2021 Kenalog [...] disease (2 sources) Atherosclerotic heart disease of [place] coronary artery without angina pectoris; 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: [Atherosclerotic heart disease of [place] coronary artery without angina pectoris] Onset: 05-04-2024 Chronic Deficiency and other anemia (1 source) Anemia in other chronic diseases classified elsewhere; 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: [Anemia of chronic disease] Onset: 12-12-2021 Chronic Diseases of mouth; excluding dental (6 sources) Unspecified lesions of oral mucosa; 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: [Other diseases of tongue] Onset: 10-13-2022 Episodic Esophageal disorders (6 sources) Gastro-esophageal reflux disease without esophagitis; 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: [Gastroesophageal reflux disease] Onset: 10-19-2022 Resolved: 06-09-2024 06-09-2024 Chronic Gastroduodenal ulcer (except hemorrhage) (2 sources) H/O: gastric ulcer; 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: [Personal history of peptic ulcer disease] Onset: 06-09-2024 06-09-2024 Episodic Nutritional deficiencies (8 sources) Vitamin D deficiency; 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: [Vitamin D deficiency, unspecified] Onset: 12-12-2021 Chronic Osteoarthritis (11 sources) Degenerative joint disease involving multiple joints; 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] Onset: 06-05-2021 Chronic Other aftercare (1 source) meterman (current) use of anticoagulants; 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: [[employer] CURRNT USE ANTICOAGULANTS] Onset: 10-19-2022 Episodic Other connective tissue disease (5 sources) Other muscle spasm; 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: [OTHER MUSCLE SPASM] Onset: 04-16-2022 Episodic Other connective tissue disease (1 source) Arthrodesis status; 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: [ARTHRODESIS STATUS] Onset: 07-28-2022 Episodic Other gastrointestinal disorders (1 source) Flatulence, eructation and gas pain; 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: [Flatulence] 09-13-2023 Episodic Other gastrointestinal disorders (2 sources) History of Sloan's esophagus; 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: [Personal history of other diseases of the digestive system] Onset: 06-09-2024 06-09-2024 Episodic Other nervous system disorders (6 sources) [...] Onset: 04-02-2021 Resolved: 10-14-2021 Chronic Substance-related disorders (4 sources) Nicotine dependence, cigarettes, uncomplicated; 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: [Nicotine dependence, other tobacco product, uncomplicated] Onset: 06-18-2020 06-18-2020 Chronic Unclassified (1 source) LOW BACK PAIN, UNSPECIFIED; 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: [LOW BACK PAIN, UNSPECIFIED] Onset: 07-28-2022 Past or Other Problems Problem Classification Problem Date Documented Da te Episodic/Chronic Cardiac dysrhythmias (4 sources) Tachycardia; 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: [Tachycardia, unspecified] Onset: 04-16-2020 05-03-2020 Episodic Nutritional deficiencies (2 sources) Cobalamin deficiency; 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: [Deficiency of other specified B group vitamins] Onset: 12-12-2021 Episodic Other acquired deformities (2 sources) Lumbar spondylolisthesis; 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: [Spondylolisthesis, lumbar region] Onset: 06-25-2020 06-25-2020 Episodic Other aftercare (2 sources) care home (current) use of non-steroidal anti-inflammatories (NSAID); 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: [meterman (current) use of non-steroidal anti-inflammatories (nsaid)] Onset: [...] Test Name Value Interpretation [facility] No dictation Stampt EGDOrdered By: User Epic on 06-09-2024 [facility] [employer] Work Phone: Surgical Pathology Reporton 06-09-2024 Surgical Pathology Report (NOTE) Path Number: [id number] -- Diagnosis -- DISTAL ESOPHAGUS, BIOPSY: -SQUAMOUS MUCOSA WITH NO PATHOLOGIC DIAGNOSIS Curtis Leroy D.O. Electronically Signed Out lj/06/13/2024 Clinical Information Pre-Op Diagnosis: GERD (GASTROESOPHAGEAL REFLUX DISEASE) Operative Findings: DISTAL ESOPHAGUS BIOPSIES Operation Performed: ESOPHAGOGASTRODUODENOSCOPY BIOPSY se Source of Specimen A: DISTAL ESOPHAGUS BIOPSIES Gross Description LEXI GARCIA DISTAL ESOPHAGUS BIOPSIES Received in formalin are two pink-rosado tissue fragments from 0.2 to 0.4 cm and are 0.4 x 0.3 x 0.2 cm in aggregate. Entirely 1 . [facility] Piyush Lozano M.D./se:06/12/2024 Microscopic Description Microscopic examination performed. Processing Lab: [facility] [address] [place] [id number] Interpretation Performed at [facility] [address] [place] [address] SURGICAL PATHOLOGY CONSULTATION Patient Name: LEXI GARCIA [facility] Rec: [id number] [facility] ANATOMIC PATHOLOGY [address], [place] [address] [facility] Orders Onlyon 05-17-2024 Orders Only [id number] Nikko Garcia 1970 F Date Provider Department Center 05/17/2024 384DALE HUTCHISON Family History Problem Relation Age of Onset COPD Mother Coronary artery disease Father 56 Family Status - Relation Status Age at Mother Alive Father [facility] Office Visiton 05-04-2024 Follow-up visit [id number] Nikko Garcia 1970 F Date Provider Department Center 05/04/2024 384DALE CARABALLO Family History Problem Relation Age of Onset COPD Mother Coronary artery disease Father 56 Family Status - Relation Status Age at Mother Alive Father Level of Service:73392 [place] OFFICE/OUTPATIENT ESTABLISHED LOW MDM 20 MIN [facility] Surgical Pathology Reporton 02-03-2024 Surgical Pathology Report (NOTE) Path Number: [id number] -- Diagnosis -- A. STOMACH, ANTRUM, BIOPSIES: [...] Description A-C. Microscopic examination performed. Processing Lab: [address] [id number] Interpretation Performed at [address] [id number] SURGICAL PATHOLOGY CONSULTATION Patient Name: LEXI GARCIA [facility] Rec: [id number] [facility] [employer] [facility] ANATOMIC PATHOLOGY [address] [place] [address]. [place], [place] [address] [facility] Follow-Upon 01-25-2024 Follow-Up [id number] Nikko Garcia 1970 F Date Provider Department Center 01/25/2024 IldaSOLITARIO GARCÍA [facility] Family History Problem Relation Age of Onset COPD Mother Coronary artery disease Father 56 Family Status - Relation Status Age at Mother Alive Father Level of Service:37704 [place] OFFICE/OUTPATIENT ESTABLISHED LOW MDM 20 MIN (GC) Reason for Visit and Comments: Follow-up [006284] - 3 mth follow up [facility] Abstracton 11-30-2023 Abstract [id number] Nikko Garcia 1970 F Date Provider Department Center 11/30/2023 SVITLANA TORRES C [facility] Family History Problem Relation Age of Onset COPD Mother Coronary artery disease Father 56 Family Status - Relation Status Age at Mother Alive Father [facility] 36on 11-22-2023 36 Last visit: 10/26/23 Next visit: 01/25/24 CBC: 12/12/21 BMP: 01/21/23 [facility] Refillon 11-20-2023 Refill [id number] Nikko Garcia 1970 Provider Department Center 11/20/2023 SOLITARIO [facility]AMS [facility] Family History Problem Relation Age of Onset COPD Mother Coronary artery disease Father 56 Family Status - Relation Status Age at Mother Alive Father Reason for Visit and Comments: Med Refill [[id number]] [facility] Office Visiton 11-02-2023 Follow-up visit [id number] Nikko Garcia 1970 Date Provider Department Center 11/02/2023 Haroon-TIM SAMUELS ALYSA Lorenzana Family History Problem Relation Age of Onset COPD Mother Coronary artery disease Father 56 Family Status - Relation Status Age at Mother Alive Father Level of Service:34386 [place] OFFICE/OUTPATIENT ESTABLISHED MOD MDM 30 MIN Reason for Visit and Comments: Atrial Fibrillation [80] - symptoms Normal [facility] Follow-Upon 10-26-2023 Follow-Up [id number] Nikko Garcia 1970 F Date Provider Department Center 10/26/2023 SOLITARIO ADAMS [facility]UM [facility] Family History Problem Relation Age of Onset COPD Mother Coronary artery disease Father 56 Family Status - Relation Status Age at Mother Alive Father Level of Service:72376 [place] OFFICE/OUTPATIENT ESTABLISHED LOW MDM 20 MIN (GC) Reason for Visit and Comments: Follow-up [[id number]] Normal [facility] Celiac Disease Panelon 09-13 Gliadin Deam Pep IgA 1.9 U/mL Normal <7.0 [facility] Comment on above: Result Comment: CELIAC INTERPRETATION <7.0 Negative 7.0-10.0 Equivocal >10.0 Positive units: U/mL Performed By: #### C ELP #### [place] [address] Cob[employer] Programmer: Talib Clements MD Gliadin Deam Pep IgG <0.4 Normal <7.0 [facility] Comment on above: Result Comment: CELIAC INTERPRETATION <7.0 Negative 7.0-10.0 Equivocal >10.0 Positive units: U/mL Performed By: #### C ELP #### [place] [address] Cobol Programmer: Talib Clements MD Tiss Transglutam IgA 0.4 U/mL Normal <7.[address] [place] [address] Comment on above: Result Comment: CELIAC INTERPRETATION <7.0 Negative 7.0-10.0 Equivocal >10.0 Positive units: U/mL Performed By: #### C ELP #### [place] [address] Cobol Programmer: Talib Clements MD IgA [Mass/Vol] 184 mg/dL Normal 70-400 [facility] Comment on above: Performed By: #### C ELP #### [place] [address] Cobol Programmer: Talib Clements MD H. pylori Antigenon 09-14-19 24 H. pylori Antigen Specimen Description .FECES Direct Exam NEGATIVE Report Status FINAL 09/14/2023 Normal [facility] Comment on above: Performed By: #### F HPY #### [place] [address] Cobol Programmer: Talib Clements MD [facility] [address] [place] [address] Cobol Programmer: David Hough MD Orders Onlyon 08-05-2023 Orders Only [id number] Nikko Garcia 1970 F Date Provider Department Center 08/05/2023 89Edmar-SHANON CISNEROS [facility] Family History Problem Relation Age of Onset COPD Mother Coronary artery disease Father 56 Family Status - Relation Status Age at Mother Alive Father Normal [facility] Follow-Upon 06-22-2023 Follow-Up [id number] Nikko Garcia 1970 F Date Provider Department Center 06/22/2023 SOLITARIO ADAMS [facility] R[facility]UM [facility] Family History Problem Relation Age of Onset COPD Mother Coronary artery disease Father 56 Family Status - Relation Status Age at Mother Alive Father Level of Service:54769 [place] OFFICE/OUTPATIENT ESTABLISHED MOD MDM 30 MIN () Reason for Visit and Comments: Follow-up [998103] - Normal [facility] DEXA BONE DENSITYon 05-11-20 DEXA BONE [...] follow-up recommended. ELECTRONICALLY SIGNED BY: Tyron Raya, DO Normal Not Available XR HAND 3+ [...] BASO # 0.0 103/ul Normal 0.0-0.1 [facility] Comment on above: Performed By: #### C BC #### [facility] [address] [address] [address] Donna Cantrell Basophils/100 WBC (Bld) 0.5 % Normal 0.2-2.0 [facility] Comment on above: Performed By: #### C BC #### [facility] [address] [place] [address] Dr. Donna Cantrell EO # 0.0 103/ul Normal 0.0-0.7 [facility] Comment on above: Performed By: #### C BC #### [facility] [address] [place] [address] Dr. Donna Cantrell Eosinophils/100 WBC (Bld) 0.0 % Critically low 0.9-7.0 [facility] Comment on above: Performed By: #### C BC #### [facility] [address] [place] [address] Dr. Donna Cantrell Erythrocyte distribution width (RBC) [Ratio] 13.6 % Normal 11.0-15.0 [facility] Comment on above: Performed By: #### C BC #### [facility] [address] [place] [address] Dr. Donna Cantrell Hematocrit (Bld) [Volume fraction] 42.0 % Normal 36.0-48.0 [facility] Comment on above: Performed By: #### C BC #### [facility] [address] [place] [address] Dr. Donna Cantrell Hemoglobin (Bld) [Mass/Vol] 14.4 g/dL Normal 12.0-16.0 [facility] Comment on above: Performed By: #### C BC #### [facility] [address] [place] [address] Dr. Donna Cantrell IG # 0.06 10e3/ul Critically high 0.00-0.03 [facility] Comment on above: Performed By: #### C BC #### [facility] [address] [place] [address] Dr. Donna Cantrell IG % 0.8 % Critically high 0.0-0.5 [facility] Comment on above: Performed By: #### C BC #### [facility] [address] [place] [address] Dr. Donna Cantrell LYMPH # 2.5 103/ul Normal 1.2-3.8 [facility] Comment on above: Performed By: #### C BC #### [facility] [address] [place] [address] Dr. Donna Cantrell Lymphocytes/100 WBC (Bld) 30.8 % Normal 20.5-60.0 [facility] Comment on above: Performed By: #### C BC #### [facility] [address] [place] [address] Dr. Donna Cantrell MANUAL DIFF REQ NO Normal [facility] Comment on above: Performed By: #### C BC #### [facility] [address] [place] [address] Dr. Donna Cantrell MCH (RBC) [Entitic mass] 30.3 pg Normal 26.7-34.0 [facility] Comment on above: Performed By: #### C BC #### [facility] [address] [place] [address] Dr. Donna Cantrell MCHC (RBC) [Mass/Vol] 34.3 g/dL Normal 29.9-35.2 [facility] Comment on above: Performed By: #### C BC #### [facility] [address] [place] [address] Dr. Donna Cantrell MCV (RBC) [Entitic vol] 88.2 fL Normal 81.0-99.0 [facility] Comment on above: Performed By: #### C BC #### [facility] [address] [place] [address] Dr. Donna Cantrell MONO # 0.5 103/ul Normal 0.3-0.8 [facility] Comment on above: Performed By: #### C BC #### [facility] [address] [place] [address] Dr. Donna Cantrell Monocytes/100 WBC (Bld) 6.4 % Normal 1.7-12.0 [facility] Comment on above: Performed By: #### C BC #### [facility] [address] [place] [address] Dr. Donna Cantrell NEUT # 4.9 103/ul Normal 1.4-6.5 [facility] Comment on above: Performed By: #### C BC #### [facility] [address] [place] [address] Dr. Donna Cantrell Neutrophils/100 WBC (Bld) 61.5 % Normal 43.0-75.0 [facility] Comment on above: Performed By: #### C BC #### [facility] [address] [place] [address] Dr. Donna Cantrell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 [address] Hematocrit (Bld) [Volume fraction] 39.4 % Normal 37.0-47.0 [facility] Comment on above: Order Comment: Dash baeza has been rescheduled by [facility] at 06/26/2020 05:07 Reason: Failed attempt at venipuncture Performed By: #### C BCWD #### [facility] [address] [place] [address] Hemoglobin (Bld) [Mass/Vol] 13.2 g/dL Normal 12.0-16.0 [facility] Comment on above: Order Comment: Dash baeza has been rescheduled by [facility] at 06/26/2020 05:07 Reason: Failed attempt at venipuncture Performed By: #### C BCWD #### [facility] [address] [place] [address] Lymphocytes (Bld) [#/Vol] 1.0 10*3/uL Normal 1.0-4.8 [facility] Comment on above: Order Comment: Dash baeza has been rescheduled by [facility] at 06/26/2020 05:07 Reason: Failed attempt at venipuncture Performed By: #### C BCWD #### [facility] [address] [place] [address] Lymphocytes/100 WBC (Bld) 6.4 % Normal [facility] Comment on above: Order Comment: Dash baeza has been rescheduled by [facility] at 06/26/2020 05:07 Reason: Failed attempt at venipuncture Performed By: #### C BCWD #### [facility] [address] [place] [address] MCH (RBC) [Entitic mass] 30.2 pg Normal 27.0-31.3 [facility] Comment on above: Order Comment: Dash baeza has been rescheduled by [facility] at 06/26/2020 05:07 Reason: Failed attempt at venipuncture Performed By: #### C BCWD #### [facility] [address] [place] [address] MCHC (RBC) [Mass/Vol] 33.4 % Normal 33.0-37.0 [facility] Comment on above: Order Comment: Dash baeza has been rescheduled by [facility] at 06/26/2020 05:07 Reason: Failed attempt at venipuncture Performed By: #### C BCWD #### [facility] [address] [place] [address] MCV (RBC) [Entitic vol] 90.3 fL Normal 82.0-100.0 [facility] Comment on above: Order Comment: Dash baeza has been rescheduled by [facility] at 06/26/2020 05:07 Reason: Failed attempt at venipuncture Performed By: #### C BCWD #### [facility] [address] [place] [address] Monocytes (Bld) [#/Vol] 1.1 10*3/uL Critically high 0.2-0.8 [facility] Comment on above: Order Comment: Dash baeza has been rescheduled by [facility] at 06/26/2020 05:07 Reason: Failed attempt at venipuncture Performed By: #### C BCWD #### [facility] [address] [place] [address] Monocytes/100 WBC (Bld) 6.9 % Normal [facility] Comment on above: Order Comment: Dash baeza has been rescheduled by [facility] at 06/26/2020 05:07 Reason: Failed attempt at venipuncture Performed By: #### C BCWD #### [facility] [address] [facility] [place] [address] Neutrophils (Bld) [#/Vol] 14.0 10*3/uL Critically high 1.4-6.5 [facility] Comment on above: Order Comment: Dash baeza has been rescheduled by [facility] at 06/26/2020 05:07 Reason: Failed attempt at venipuncture Performed By: #### C BCWD #### [facility] [address] [place] [address] Neutrophils/100 WBC (Bld) 86.5 % Normal [facility] Comment on above: Order Comment: Dash baeza has been rescheduled by [facility] at 06/26/2020 05:07 Reason: Failed attempt at venipuncture Performed By: #### C BCWD #### [facility] [address] [place] [address] Platelets (Bld) [#/Vol] 237 10*3/uL Normal 130-400 [facility] Comment on above: Order Comment: Dash baeza has been rescheduled by [facility] at 06/26/2020 05:07 Reason: Failed attempt at venipuncture Performed By: #### C BCWD #### [facility] [address] [place] [address] RBC (Bld) [#/Vol] 4.37 10*6/uL Normal 4.20-5.40 [facility] Comment on above: Order Comment: Dash baeza has been rescheduled by [facility] at 06/26/2020 05:07 Reason: Failed attempt at venipuncture Performed By: #### C BCWD #### [facility] [address] [place] [address] WBC (Bld) [#/Vol] 16.1 10*3/uL Critically high 4.8-10.8 [facility] Comment on above: Order Comment: Dash baeza has been rescheduled by [facility] at 06/26/2020 05:07 Reason: Failed attempt at venipuncture Performed By: #### C BCWD #### [facility] [address] [place] [address] XR LUMBAR SPINE (2-3 VIEWS)o n 06-26-2020 [...] Maximiliano Rachel MD 06/26/20 Final result Normal [facility] Basic Metabolic Panel Reflex Mgon 06-25-2020 Anion gap [Moles/Vol] 10 mmol/L Normal 9-15 [facility] Comment on above: Performed By: #### B MPX #### [facility] [address] [place] [address] Calcium [Mass/Vol] 8.9 mg/dL Normal 8.5-9.9 [facility] Comment on above: Performed By: #### B MPX #### [facility] [address] [place] [address] Chloride [Moles/Vol] 102 mmol/L Normal 95-107 [facility] Comment on above: Performed By: #### B MPX #### [facility] [address] [place] [address] CO2 [Moles/Vol] 21 mmol/L Normal 20-31 [facility] Comment on above: Performed By: #### B MPX #### [facility] [address] [place] [address] Creatinine [Mass/Vol] 0.72 mg/dL Normal 0.50-0.90 [facility] Comment on above: Performed By: #### B MPX #### [facility] [address] [place] [address] GFR/1.73 sq M predicted among blacks MDRD (S/P/Bld) [Vol rate/Area] mL/min/{1.73_m2} Normal >60 [facility] Comment on above: Result Comment: >60 mL/min/1.73m2 EGFR, calc. for ages 18 and older using the MDRD formula (not corrected for weight), is valid for stable renal function. Performed By: #### B MPX #### [facility] [address] [place] [address] GFR/1.73 sq M.predicted MDRD (S/P/Bld) [Vol rate/Area] mL/min/{1.73_m2} Normal >60 [facility] Comment on above: Result Comment: >60 mL/min/1.73m2 EGFR, calc. for ages 18 and older using the MDRD formula (not corrected for weight), is valid for stable renal function. Performed By: #### B MPX #### [facility] [address] [place] [address] Glucose [Mass/Vol] 118 mg/dL Critically high 70-99 [facility] Comment on above: Performed By: #### B MPX #### [facility] [address] [place] [address] Potassium reflex Mg 4.6 mEq/L Normal 3.4-4.9 [facility] Comment on above: Performed By: #### B MPX #### [facility] [address] [place] [address] Sodium [Moles/Vol] 133 mmol/L Low 135-144 [facility] Comment on above: Performed By: #### B MPX #### [facility] [address] [place] [address] Urea nitrogen [Mass/Vol] 16 mg/dL Normal 6-20 [facility] Comment on above: Performed By: #### B MPX #### [facility] [address] [place] [address] CBC With Platelet No Differe ntialon 06-25-2020 Erythrocyte distribution width (RBC) [Ratio] 14.3 % Normal 11.5-14.5 [facility] Comment on above: Performed By: #### C BCND #### [facility] [address] [place] [address] Hematocrit (Bld) [Volume fraction] 39.4 % Normal 37.0-47.0 [facility] Comment on above: Performed By: #### C BCND #### [facility] [address] [place] [address] Hemoglobin (Bld) [Mass/Vol] 12.9 g/dL Normal 12.0-16.0 [facility] Comment on above: Performed By: #### C BCND #### [facility] [address] [place] [address] MCH (RBC) [Entitic mass] 30.4 pg Normal 27.0-31.3 [facility] Comment on above: Performed By: #### C BCND #### [facility] [address] [place] [address] MCHC (RBC) [Mass/Vol] 32.8 % Low 33.0-37.0 [facility] Comment on above: Performed By: #### C BCND #### [facility] [address] [place] [address] MCV (RBC) [Entitic vol] 92.7 fL Normal 82.0-100.0 [facility] Comment on above: Performed By: #### C BCND #### [facility] [address] [place] [address] Platelets (Bld) [#/Vol] 213 10*3/uL Normal 130-400 [facility] Comment on above: Performed By: #### C BCND #### [facility] [address] [place] [address] RBC (Bld) [#/Vol] 4.25 10*6/uL Normal 4.20-5.40 [facility] Comment on above: Performed By: #### C BCND #### [facility] [address] [place] [address] WBC (Bld) [#/Vol] 12.0 10*3/uL Critically high 4.8-10.8 [facility] Comment on above: Performed By: #### C BCND #### [facility] [address] [place] [address] FLUORO FOR SURGICAL PROCEDUR ESon 06-25-2020 FLUORO [...] Maximiliano Rachel MD 06/26/20 Final result Normal [facility] Surgical Specimenon 06-25-20 20 Surgical Specimen [facility] [address] [place] [id number] FINAL SURGICAL PATHOLOGY REPORT Patient Name: LEXI GARCIA Accession No: [id number] Age Sex: 1970 Location: [facility] [id number] Account No: [id number] Collected: 06/25/2020 Med Rec No: [id number] Received: 06/25/2020 Attend Phys: FEMI DUARTE Completed: [...] in one cassette after decalcification. LAURO CPT: 81900 X1 90283 X1 ANABELLA LEWIS M.D. 06/26/2020 Electronically signed out by Page 1 of 1 [facility] Comment on above: Performed By: #### S UR ####[facility] [facility] [phone] COVID-19, NAAon 06-20-2020 COVID-19, BELLE Not Detected Normal Not Detect [facility] Comment on above: Result Comment: This nucleic acid amplification test was developed and its performance characteristics determined by [employer]. Nucleic acid amplification tests include PCR and [...] detected) result in this assay. Performed at: [facility] [address] [facility], [place] [id number] [employer] Programmer: Altagracia Quiñonez MD, Phone: [phone] Performed By: #### I RCOV #### [facility] [address] [place] [address] Basic Metabolic Panelon 12-1 5-2020 Anion gap [Moles/Vol] 11 mmol/L Normal 9-15 [facility] Comment on above: Performed By: #### B MP #### [facility] [address] [place] [address] Calcium [Mass/Vol] 9.0 mg/dL Normal 8.5-9.9 [facility] Comment on above: Performed By: #### B MP #### [facility] [address] [place] [address] Chloride [Moles/Vol] 106 mmol/L Normal 95-107 [facility] Comment on above: Performed By: #### B MP #### [facility] [address] [place] [address] CO2 [Moles/Vol] 23 mmol/L Normal 20-31 [facility] Comment on above: Performed By: #### B MP #### [facility] [address] [place] [address] Creatinine [Mass/Vol] 0.76 mg/dL Normal 0.50-0.90 [facility] Comment on above: Performed By: #### B MP #### [facility] [address] [place] [address] GFR/1.73 sq M predicted among blacks MDRD (S/P/Bld) [Vol rate/Area] mL/min/{1.73_m2} Normal >60 [facility] Comment on above: Result Comment: >60 mL/min/1.73m2 EGFR, calc. for ages 18 and older using the MDRD formula (not corrected for weight), is valid for stable renal function. Performed By: #### B MP #### [facility] [address] [place] [address] GFR/1.73 sq M.predicted MDRD (S/P/Bld) [Vol rate/Area] mL/min/{1.73_m2} Normal >60 [facility] Comment on above: Result Comment: >60 mL/min/1.73m2 EGFR, calc. for ages 18 and older using the MDRD formula (not corrected for weight), is valid for stable renal function. Performed By: #### B MP #### [facility] [address] [place] [address] Glucose [Mass/Vol] 87 mg/dL Normal 70-99 [facility] Comment on above: Performed By: #### B MP #### [facility] [address] [place] [address] Potassium [Moles/Vol] 3.8 mmol/L Normal 3.4-4.9 [facility] Comment on above: Performed By: #### B MP #### [facility] [address] [place] [address] Sodium [Moles/Vol] 140 mmol/L Normal 135-144 [facility] Comment on above: Performed By: #### B MP #### [facility] [address] [place] [address] Urea nitrogen [Mass/Vol] 20 mg/dL Normal 6-20 [facility] Comment on above: Performed By: #### B MP #### [facility] [address] [place] [address] CBC With Platelet No Differe ntialon 06-18-2020 Erythrocyte distribution width (RBC) [Ratio] 14.2 % Normal 11.5-14.5 [facility] Comment on above: Performed By: #### C BCND #### [facility] [address] [place] [address] Hematocrit (Bld) [Volume fraction] 41.5 % Normal 37.0-47.0 [facility] Comment on above: Performed By: #### C BCND #### [facility] [address] [place] [address] Hemoglobin (Bld) [Mass/Vol] 14.3 g/dL Normal 12.0-16.0 [facility] Comment on above: Performed By: #### C BCND #### [facility] [address] [place] [address] MCH (RBC) [Entitic mass] 31.4 pg Critically high 27.0-31.3 [facility] Comment on above: Performed By: #### C BCND #### [facility] [address] [place] [address] MCHC (RBC) [Mass/Vol] 34.5 % Normal 33.0-37.0 [facility] Comment on above: Performed By: #### C BCND #### [facility] [address] [place] [address] MCV (RBC) [Entitic vol] 91.2 fL Normal 82.0-100.0 [facility] Comment on above: Performed By: #### C BCND #### [facility] [address] [place] [address] Platelets (Bld) [#/Vol] 241 10*3/uL Normal 130-400 [facility] Comment on above: Performed By: #### C BCND #### [facility] [address] [place] [address] RBC (Bld) [#/Vol] 4.55 10*6/uL Normal 4.20-5.40 [facility] Comment on above: Performed By: #### C BCND #### [facility] [address] [place] [address] WBC (Bld) [#/Vol] 9.7 10*3/uL Normal 4.8-10.8 [facility] Comment on above: Performed By: #### C BCND #### [facility] [address] [place] [address] COVID-19, NAAon 06-18-2020 Source Swab SQUILGEER swab Normal [facility] Comment on above: Performed By: #### I RCOV #### [facility] [address] [place] [address] Prothrombin Timeon 0 INR Coag (PPP) [Relative time] 1.0 {INR} Normal [facility] Comment on above: Performed By: #### P T ####[facility] [place] [phone] PT Coag (PPP) [Time] 13.1 s Normal 12.3-14.9 [facility] Comment on above: Performed By: #### P T ####[facility] [place] [phone] Type and Screen Capture 3 sc rn cellon 06-18-2020 Type and Screen Capture 3 scrn cell PATIENT: JOSHUA Doss LOC: [facility] BILL# : [id number] : 1970 SEX: F ORDERED BY: TEENA Lowe ORDERED : 06/18/2020 15:07 COLLECTED: 06/18/2020 15:36 ORDER : [id number] RECEIVED : 06/18/2020 15:36 Second, confirmatory specimen needed to satisfy [employer] policy. TEST NAME RESULT UNITS RANGES ABN FL ST ABORH Capture O POS F Antibody 3 Cell Scrn Captu NEG F Normal [facility] Comment on above: Performed By: #### T S3C #### [facility] [address] [place] [address] XR SPINE ENTIRE (2-3 VIEWS)o n 06-18-2020 [...] Ash Horta MD 06/19/20 Final result Normal [facility] FLUORO FOR SURGICAL PROCEDUR ESon 05-09-2020 [...] Maximiliano Rachel MD 05/09/20 Final result Normal [facility] COVID-19, NAAon 05-05-2020 COVID-19, BELLE Not Detected Normal Not Detect [facility] Comment on above: Result Comment: This nucleic acid amplification test was developed and its performance characteristics determined by [employer]. Nucleic acid amplification tests include PCR and [...] result in this assay. Performed at: [facility] [address], [place], [place] [id number] [employer] Programmer: Altagracia Quiñonez MD, Phone: [phone] Performed By: #### I RCOV ####[facility] [facility] [phone] Basic Metabolic Panelon 10-3 0-2020 Anion gap [Moles/Vol] 12 mmol/L Normal 9-15 [facility] Comment on above: Performed By: #### B MP #### [facility] [address] [place] [address] Calcium [Mass/Vol] 10.5 mg/dL Critically high 8.5-9.9 [facility] Comment on above: Performed By: #### B MP #### [facility] [address] [place] [address] Chloride [Moles/Vol] 98 mmol/L Normal 95-107 [facility] Comment on above: Performed By: #### B MP #### [facility] [address] [place] [address] CO2 [Moles/Vol] 27 mmol/L Normal 20-31 [facility] Comment on above: Performed By: #### B MP #### [facility] [address] [place] [address] Creatinine [Mass/Vol] 0.82 mg/dL Normal 0.50-0.90 [facility] Comment on above: Performed By: #### B MP #### [facility] [address] [place] [address] GFR/1.73 sq M predicted among blacks MDRD (S/P/Bld) [Vol rate/Area] mL/min/{1.73_m2} Normal >60 [facility] Comment on above: Result Comment: >60 mL/min/1.73m2 EGFR, calc. for ages 18 and older using the MDRD formula (not corrected for weight), is valid for stable renal function. Performed By: #### B MP #### [facility] [address] [place] [address] GFR/1.73 sq M.predicted MDRD (S/P/Bld) [Vol rate/Area] mL/min/{1.73_m2} Normal >60 [facility] Comment on above: Result Comment: >60 mL/min/1.73m2 EGFR, calc. for ages 18 and older using the MDRD formula (not corrected for weight), is valid for stable renal function. Performed By: #### B MP #### [facility] [address] [place] [address] Glucose [Mass/Vol] 84 mg/dL Normal 70-99 [facility] Comment on above: Performed By: #### B MP #### [facility] [address] [place] [address] Potassium [Moles/Vol] 4.6 mmol/L Normal 3.4-4.9 [facility] Comment on above: Performed By: #### B MP #### [facility] [address] [place] [address] Sodium [Moles/Vol] 137 mmol/L Normal 135-144 [facility] Comment on above: Performed By: #### B MP #### [facility] [address] [place] [address] Urea nitrogen [Mass/Vol] 31 mg/dL Critically high 6-20 [facility] Comment on above: Performed By: #### B MP #### [facility] [address] [place] [address] CBC With Platelet No Differe ntialon 05-03-2020 Erythrocyte distribution width (RBC) [Ratio] 14.3 % Normal 11.5-14.5 [facility] Comment on above: Performed By: #### C BCND #### [facility] [address] [place] [address] Hematocrit (Bld) [Volume fraction] 41.3 % Normal 37.0-47.0 [facility] Comment on above: Performed By: #### C BCND #### [facility] [address] [place] [address] Hemoglobin (Bld) [Mass/Vol] 13.6 g/dL Normal 12.0-16.0 [facility] Comment on above: Performed By: #### C BCND #### [facility] [address] [place] [address] MCH (RBC) [Entitic mass] 30.7 pg Normal 27.0-31.3 [facility] Comment on above: Performed By: #### C BCND #### [facility] [address] [place] [address] MCHC (RBC) [Mass/Vol] 33.0 % Normal 33.0-37.0 [facility] Comment on above: Performed By: #### C BCND #### [facility] [address] [place] [address] MCV (RBC) [Entitic vol] 92.9 fL Normal 82.0-100.0 [facility] Comment on above: Performed By: #### C BCND #### [facility] [address] [place] [address] Platelets (Bld) [#/Vol] 241 10*3/uL Normal 130-400 [facility] Comment on above: Performed By: #### C BCND #### [facility] [address] [place] [address] RBC (Bld) [#/Vol] 4.44 10*6/uL Normal 4.20-5.40 [facility] Comment on above: Performed By: #### C BCND #### [facility] [address] [place] [address] WBC (Bld) [#/Vol] 11.0 10*3/uL Critically high 4.8-10.8 [facility] Comment on above: Performed By: #### C BCND #### [facility] [address] [place] [address] COVID-19, NAAon 05-03-2020 Source Swab Anterior nares Normal [facility] Comment on above: Performed By: #### I RCOV ####[facility] [place] [phone] Partial Thromboplastin Timeo n 05-03-2020 aPTT Coag (Bld) [Time] 31.3 s Normal 24.4-36.8 [facility] Comment on above: Performed By: #### P TT #### [facility] [address] [place] [address] Prothrombin Timeon 0 INR Coag (PPP) [Relative time] 0.9 {INR} Normal [facility] Comment on above: Performed By: #### P T #### [facility] [address] [place] [address] PT Coag (PPP) [Time] 11.9 s Low 12.3-14.9 [facility] Comment on above: Performed By: #### P T #### [facility] [address] [place] [address] Type and Screen Capture 3 sc rn cellon 05-03-2020 Type and Screen Capture 3 scrn cell PATIENT: JOSHUA Doss LOC: [facility] BILL# : [id number] : 1970 SEX: F ORDERED BY: STEPHANIE Harrison ORDERED : 05/03/2020 14:14 COLLECTED: 05/03/2020 14:14 ORDER : [id number] RECEIVED : 05/03/2020 19:43 TEST NAME RESULT UNITS RANGES ABN FL ST ABORH Capture O POS F Antibody 3 Cell Scrn Captu NEG F Normal [facility] Comment on above: Performed By: #### T S3C #### [facility] [address] [place] [address] Established Visit (Orthopaed ic Surgery)on 04-26-2020 Established [...] biceps. No pain with resisted elbow flexion. Health Editor strength 5/5 Elbow flexion 5/5. Shoulder abduction [...] Chiara Espinosa PA-C Department of Orthopaedic Surgery [facility] Dictation performed with the use of voice recognition software. Syntax and grammatical errors may exist. Active Problems Problems Shoulder pain (719.41) (M25.519) Signatures Electronically signed by : Chiara Espinosa PA-C; Apr 26 2020 3:56PM EST (Author) Normal [facility] Initial Visit (Orthopaedic S urgery)on 04-17-2020 Initial Visit (Orthopaedic Surgery) Diagnoses/Problems Assessed Shoulder pain (719.41) (M25.519) Patient Discussion/Summary Patient has right shoulder pain of uncertain origin. Exam today is suggestive of subacromial origin of pain. MRI scan shows tendinopathy but not an obvious tear. I recommended having her MRI scans evaluated by the musculoskeletal radiologist at [facility] I will call the patient back with [...] her light touch sensation is grossly intact. Health Editor strength is 5/5 elbow flexion 5/5 shoulder [...] Apr 17 2020 4:45PM EST (Author) Normal [facility] Vital Signs Date Time Vital Sign Value Performing Clinician Facility 06-09-2024 11:15-0500 Diastolic blood pressure 93 mm[Hg] Maximiliano You MD Work Phone: [facility] 06-09-2024 11:15-0500 Heart rate 90 /min Maximiliano You MD Work Phone: [facility] 06-09-2024 11:15-0500 Respiratory rate 20 /min Maximiliano You MD Work Phone: [facility] 06-09-2024 11:15-0500 SaO2% (BldA) [Mass fraction] 95 % [facility] 06-09-2024 11:15-0500 Systolic blood pressure 151 mm[Hg] [facility]il[facility] You [facility] 06-09-2024 10:45-0500 Body temperature 96.91 [degF] Maximil[facility] You [facility] 06-09-2024 09:48-0500 Body height 162.6 cm Maximiliano You MD [facility] [email or web address] 06-09-2024 09:48-0500 Body mass index (BMI) [Ratio] 37.25 kg/m2 Maximiliano You MD [facility] 06-09-2024 09:48-0500 Body weight 98.43 kg Maximiliano You MD [facility] 12-12-2021 10:43-0400 Body weight 97.52 kg Gayle Washington MD Work Phone: [facility] 12-12-2021 10:43-0400 Diastolic blood pressure 87 mm[Hg] Gayle Washington MD Work Phone: [facility] 12-12-2021 10:43-0400 Heart rate 88 /min Gayle Washington MD Work Phone: [facility] 12-12-2021 10:43-0400 Systolic blood pressure 125 mm[Hg] Gayle Washington MD Work Phone: [facility] 10-14-2021 10:30-0400 Diastolic blood pressure 80 mm[Hg] Emmett Brunner Other [email or web address] Other 10-14-2021 10:30-0400 SaO2% (BldA) [Mass fraction] 98 % Emmett Brunner Other [email or web address] Other 10-14-2021 10:30-0400 Systolic blood pressure 130 mm[Hg] Emmett Brunner Other [email or web address] Other 07-01-2021 15:30-0500 Body weight 94.62 kg Letty Wesley Other [email or web address] Other 07-01-2021 15:30-0500 Diastolic blood pressure 78 mm[Hg] Letty Wesley Other [email or web address] Other 07-01-2021 15:30-0500 Respiratory rate 18 /min Letty Wesley Other [email or web address] Other 07-01-2021 15:30-0500 SaO2% (BldA) [Mass fraction] 98 % Letty Wesley Other [email or web address] Other 07-01-2021 15:30-0500 Systolic blood pressure 118 mm[Hg] Letty Wesley Other [employer] Other 06-18-2021 15:45-0500 Diastolic blood pressure 90 mm[Hg] Emmett Brunner Other [email or web address] Other 06-18-2021 15:45-0500 SaO2% (BldA) [Mass fraction] 97 % Emmett Brunner Other [email or web address] Other 06-18-2021 15:45-0500 Systolic blood pressure 122 mm[Hg] Emmett Brunner Other [email or web address] Other 05-15-2021 17:30-0500 Body weight 92.53 kg Emmett Brunner Other [email or web address] Other 05-15-2021 17:30-0500 Diastolic blood pressure 80 mm[Hg] Emmett Brunner Other [email or web address] Other 05-15-2021 17:30-0500 Systolic blood pressure 130 mm[Hg] Emmett Brunner Other [email or web address] Other 04-02-2021 14:30-0400 Body weight 92.63 kg Emmett Brunner Other [email or web address] Other 04-02-2021 14:30-0400 Diastolic blood pressure 88 mm[Hg] Emmett Brunner Other [email or web address] Other 04-02-2021 14:30-0400 SaO2% (BldA) [Mass fraction] 98 % Emmett Brunner Other [email or web address] Other 04-02-2021 14:30-0400 Systolic blood pressure 140 mm[Hg] Emmett Brunner Other [email or web address] Other Encounters Encounter Date Encounter Type Care Provider Facility Start: 06-09-2024 End: 06-09-2024 ambulatory MAXIMILIANO YOU [facility] Start: 06-09-2024 End: 06-09-2024 Subsequent hospital visit by physician Maximiliano You MD Work Phone: [facility] Comment on above: GERD (gastroesophage al reflux disease) Start: 06-05-2024 End: 06-05-2024 ambulatory Rosibel Cotton MD Facility:[facility] Start: 05-04-2024 End: 05-04-2024 ambulatory DALE [facility] Start: 04-10-2024 End: 04-10-2024 ambulatory Rosibel Cotton MD Facility: [facility] Start: 02-07-2024 End: 02-07-2024 ambulatory Rosibel Cotton MD Facility: [facility] Start: 02-03-2024 End: 02-03-2024 ambulatory NANCY LUDWIG [facility] Start: 01-25-2024 End: 01-25-2024 ambulatory [facility] Start: 01-24-2024 End: 01-24-2024 ambulatory Rosibel Cotton MD Facility: [facility] Start: 01-12-2024 End: 01-12-2024 ambulatory NICOLE TELLES [facility] Start: 01-12-2024 Encounter [facility]ced[facility] Start: 12-20-2023 End: 12-20-2023 ambulatory Rosibel Cotton MD Facility: [facility] Start: 11-02-2023 End: 11-02-2023 ambulatory [facility] Start: 10-29-2023 End: 10-29-2023 ambulatory IZABEL LARA Not Available Start: 10-28-2023 End: 10-28-2023 ambulatory CLIFFORD VANN Not Available Start: 10-26-2023 End: 10-26-2023 ambulatory [facility] Start: 10-25-2023 End: 10-25-2023 ambulatory Rosibel Cotton MD Facility:[facility] Start: 09-20-2023 End: 09-20-2023 ambulatory Rosibel Cotton MD Facility: [facility] Start: 09-13-2023 End: 09-13-2023 Subsequent hospital visit by physician [facility] Comment on above: Flatulence, eructati on and gas pain Start: 09-13-2023 End: 09-13-2023 ambulatory [facility] Start: 09-13-2023 Encounter for other preprocedural examination NICOLECarrington TELLES [facility] Start: 07-26-2023 End: 07-26-2023 ambulatory KIMBERLEY GIBBONS Not Available Start: 06-22-2023 End: 06-22-2023 ambulatory SOLITARIO GARCÍA [facility] Start: 06-18-2023 End: 06-18-2023 ambulatory KIMBERLEY GIBBONS Not Available Start: 05-11-2023 End: 05-12-2023 ambulatory JESSIE REID Not Available Start: 04-07-2023 ambulatory Gayle Washington MD Work Phone: Rheumatology Comment on above: Fax info Start: 10-16-2022 Encounter for preprocedural cardiovascular examination DR ULISES TIM [facility] Start: 10-16-2022 Encounter for preprocedural laboratory examination DR ULISES TIM [facility] Start: 10-13-2022 End: 10-13-[address] ULISES [...] Start: 12-12-2021 End: 12-13-2021 ambulatory KIMBERLEY GIBBONS [email or web address] Other Start: 12-12-2021 End: 12-12-2021 Patient encounter [...] 10-29-2021 Chart Update Cristobal miller Work Phone: [id number] Work Phone: Start: 10-14-2021 End: 10-14-2021 ambulatory Emmett Kannan Other [email or web address] Other Start: 10-14-2021 Patient encounter procedure Emmett Brunner [facility] Start: 09-23-2021 End: 09-23-2021 ambulatory Emmett Bartonky Other [email or web address] Other Start: 09-23-2021 Telephone encounter Emmett Brunner [facility] Start: 07-01-2021 End: 07-01-2021 ambulatory Letty Olson Other [email or web address] Other Start: 07-01-2021 Office outpatient vi sit 25 minutes Lettyra Chiangz [facility] Start: 06-26-2021 (Procedure) Short Emmett Brunner [facility] Start: 06-26-2021 End: 06-26-2021 ambulatory Emmett Brunner Other [email or web address] Other Start: 06-18-2021 End: 06-18-2021 ambulatory Emmett Brunner Other [email or web address] Other Start: 06-18-2021 Office outpatient vi sit 25 minutes Emmett Kannan [facility] Start: 06-18-2021 Telephone encounter Emmett Brunner [facility] Start: 06-04-2021 End: 06-04-2021 Subsequent hospital visit by physician Christina [facility] Comment on above: Chronic hip pain, bi lateral [M25.551, M25.552, G89.29] Start: 05-21-2021 (Procedure) Short Emmett Brunner [facility] Start: 05-21-2021 End: 05-21-2021 ambulatory Emmett Brunner Other [email or web address] Other Start: 05-15-2021 End: 05-15-2021 ambulatory Emmett Brunner Other [email or web address] Other Start: 05-15-2021 Office outpatient vi sit 25 minutes Emmett Kannan [facility] Start: 04-30-2021 (Procedure) Short Emmett Brunner [facility] Start: 04-16-2021 (Procedure) Short Emmett Kannan [facility] Start: 04-02-2021 Office outpatient vi sit 25 minutes Emmett Kannan [facility] Start: 02-21-2021 Office outpatient vi sit 15 minutes Cristobal Tomas Work Phone: [facility] [address] Work Phone: Start: 06-25-2020 End: 06-27-2020 Evaluation and management of inpatient [facility]EMI [facility] Start: 06-25-2020 End: 06-28-2020 Patient encounter procedure CRISTOBAL [facility] Start: 06-18-2020 End: 06-23-2020 Patient encounter procedure CRISTOBAL [facility] Start: 05-09-2020 End: 05-09-2020 Patient encounter procedure FEMI [facility] Procedures Date Procedure Procedure Detail Performing Clinician Start: 06-09-2024 Esophagogastroduodenoscopy Maximiliano salinas MD Work Phone: Start: 09-13-2023 Assay of gammaglobulin iga igd igg igm each 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 Telles 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 Work Phone: Start: 06-04-2021 Radex hips bilateral with pelvis minimum 5 views Gayle Washington MD Work Phone: Start: 06-17-2020 Mammography Gayle Washington MD Work Phone: Start: 06-09-2018 Lipid 1996 panel - Serum or Plasma Patricia Washington MD Work Phone: Plan of Treatment Date Care Activity Detail Author Start: 03-16-2026 Screening for malignant neoplasm of colon [facility] Start: 12-12-2024 DIABETES SCREEN DIABETES SCREEN [facility] Start: 12-12-2024 Diabetes Screening Diabetes Screening [facility] Start: 07-01-2024 Screening for malignant neoplasm of breast Breast cancer screen [facility] Start: 06-09-2024 End: 06-09-2024 Esophagogastroduodenoscopy transoral diagnostic ESOPHAGOGASTRODUODENOSCOPY GERD (gastroesophageal reflux disease) 06/09/2024 10:28 AM [facility] Start: 03-05-2024 COVID-19 Vaccine ( season) COVID-19 Vaccine ( season) [facility] Start: 02-03-2024 Influenza vaccination Flu vaccine (#1) [facility] Start: 02-03-2024 End: 02-03-2024 Admission to same day surgery center 02/03/2024 8:45 AM EDT - 02/03/2024 9:05 AM EDT Surgery [facility] [address] [place] [id number] Nancy Ludwig MD [address] [place] [address] [phone] ESOPHAGOGASTRODUODENOSCOPY [facility] Comment on above: ESOPHAGOGASTRODUODENOSCOPY Start: 02-03-2024 End: 02-03-2024 Esophagogastroduodenoscopy transoral diagnostic ESOPHAGOGASTRODUODENOSCOPY Chronic GERD 02/03/2024 8:45 AM EDT [facility] Start: 02-03-2024 Subsequent hospital visit by physician 02/03/2024 8:45 AM EDT Hospital Encounter [facility] [address] [place] [phone] Nancy Ludwig MD [address] [place] [id number] [facility] Start: 07-05-2023 Annual Wellness Visit (Medicare Advantage) Annual Wellness Visit (Medicare Advantage) [facility] Start: 06-09-2023 Lipid 1996 panel - Serum or Plasma Lipid Screening [facility] Start: 06-09-2023 LIPID SCREEN LIPID SCREEN [facility] Start: 03-05-2023 COVID-19 Vaccine ( season) COVID-19 Vaccine ( season) [facility] Start: 03-05-2023 Influenza vaccination [facility] Start: 02-02-2023 Influenza vaccination Flu vaccine (#1) [facility] Start: 07-05-2022 DEPRESSION ASSESSMENT DEPRESSION ASSESSMENT [facility] Start: 03-19-2022 End: 12-17-2022 25-hydroxyvitamin D3 [Mass/volume] in Serum or Plasma VITAMIN D 25 HYDROXY Lab Routine Vitamin D deficiency Expected: 03/19/2022 (Approximate), Expires: 12/17/2022 [facility] Work Phone: Comment on above: Expected: 03/19/2022 (Approximate), Expi res: 12/17/2022 Start: 03-05-2022 Influenza vaccination [facility] Start: 08-21-2021 COVID-19 VACCINE (2 - Booster for Barbara series) COVID-19 VACCINE (2 - Booster for Barbara series) [facility] Start: 07-05-2021 DEPRESSION ASSESSMENT DEPRESSION ASSESSMENT [facility] Start: 06-17-2021 Mammography [facility] Start: 2018 Shingles vaccine (1 of 2) Shingles vaccine (1 of 2) [facility] [employer] Start: 2018 SHINGRIX VACCINE (1 of 2) SHINGRIX VACCINE (1 of 2) [facility] Start: 2013 COLOGUARD (FIT-DNA) COLOGUARD (FIT-DNA) [facility] Start: 2013 Colonoscopy COLONOSCOPY [facility] Start: 2013 COLORECTAL CANCER SCREENING COLORECTAL CANCER SCREENING [facility] Start: [address] COLONOGRAPHY [facility] Start: 2013 FECAL OCCULT BLOOD FECAL OCCULT BLOOD [facility] Start: 2013 Screening for malignant neoplasm of colon [facility] [employer] Start: 2013 SIGMOIDOSCOPY SIGMOIDOSCOPY [facility] Start: 2003 Diabetes screen Diabetes screen [facility] [employer] Start: 1998 HPV TESTING HPV TESTING [facility] Start: 1989 PAP TESTING PAP TESTING [facility] Start: 1987 DTaP/Tdap/Td vaccine (1 - Tdap) DTaP/Tdap/Td vaccine (1 - Tdap) [facility] [employer] Start: 1987 Hepatitis B vaccine (1 of 3 - 19+ 3-dose series) Hepatitis B vaccine (1 of 3 - 19+ 3-dose series) [employer] Start: 1987 Urine microalbumin profile [facility] Start: 1986 Hepatitis C screening Hepatitis C screen [employer] Start: 1986 HIV SCREENING HIV SCREENING [facility] Start: 1983 HIV screening HIV screen [facility] [employer] Start: 1980 Adult depression screening assessment DEPRESSION SCREENING [facility] Start: 1980 Depression Screen Depression Screen [facility] Start: 1978 Lipid panel Lipids [facility] Start: 1974 PNEUMOCOCCAL (1 - PCV) PNEUMOCOCCAL (1 - PCV) [facility] Start: 1974 Pneumococcal 0-64 years Vaccine (1 - PCV) Pneumococcal 0-64 years Vaccine (1 - PCV) [facility] Start: 1974 Pneumococcal 0-64 years Vaccine (1 of 2 - PCV) Pneumococcal 0-64 years Vaccine (1 of 2 - PCV) [facility] Start: 1974 Pneumococcal vaccination Pneumococcal Vaccine (1 - PCV) [facility] Start: 1968 HEPATITIS B (1 of 3 - 3-dose series) HEPATITIS B (1 of 3 - 3-dose series) [facility] Start: 1968 Hepatitis B Vaccine (1 of 3 - 3-dose series) Hepatitis B Vaccine (1 of 3 - 3-dose series) [facility] Celiac Disease Panel Celiac Dise ase Panel Lab Routine Flatulence, eructation and gas pain 09/13/2023 4:20 PM EDT [facility] End: 09-13-2023 H. pylori antigen [facility] Comment on above: Once for 1 Occurrences starting 09/13/19 24 until 09/13/2023 End: 09-13-2023 H. Pylori Antigen, Stool H. Pylori Antigen, Stool Lab Routine Flatulence, eructation and gas pain 1 Occurrences starting 09/13/2023 until 09/13/2023 [facility]: Comment on above: 1 Occurrences starting 09/13/2023 until 09/13/2023 End: 06-09-2024 INITIATE PACU OXYGEN THERAPY PROTOCOL Initiate PACU Oxygen Therapy Protocol Respiratory Care Routine Continuous until discontinued starting 06/09/2024 [facility] Comment on above: Continuous until discontinued starting 1 08/10/2023 Pathology study Surgical Patholo gy Lab Routine GERD (gastroesophageal reflux disease) Release Upon Ordering for 1 Occurrences starting 06/09/2024 [facility] Comment on above: Release Upon Ordering for 1 Occurrences starting 06/09/2024 Immunizations Immunization Date Immunization Notes Care Provider Sabina brumfield 04-06-2019 influenza, injectabl e, quadrivalent, preservative free Cristobal Tomas Work Phone: [facility] [address] Work Phone: 04-06-2019 influenza virus vaccine, unspecified formulation Gayle Washington MD Work Phone: [facility] 05-15-2016 seasonal influenza, intradermal, preservative free Cristobal Hampton Ione Work Phone: [facility] Payers Date Payer Category Payer Unknown 2021 Unknown [employer] [place] X [id number] 2021-Present [phone] [address] [address] [place] [address] HMO [id number] 2020 Private Health Insurance [facility] [employer] [id number] 2020-2021 [address] [address] [place] [address] PPO [id number] 2018 Unknown [id number] [id number] 2017 Unknown [id number] 1970 Unknown [id number] 2.16840.1.017112.3.579.2 .182 1968 Unknown [id number] 2.16840.1.680936.3.579.2 .182 1968 Unknown [id number] 2.16840.1.642654.3.579.2 .182 1968 Unknown [id number] 2.16.840.1.104108.3.579.2 .182 1968 Unknown [id number] 2.16.840.1.373467.3.579.2 .182 1968 Unknown [id number] 2.16.840.1.282672.3.579.2 .593 1968 Unknown [id number] 2.16.840.1.766599.3.579.2 .593 1968 Unknown [id number] 2.16.840.1.705944.3.579.2 .593 1968 Unknown [id number] 2.16.840.1.865882.3.579.2 .593 1968 Unknown [id number] 2.16.840.1.415875.3.579.2 .593 1968 Unknown [id number] 2.16.840.1.151171.3.579.2 .593 1968 Unknown [id number] 2.16.840.1.885042.3.579.2 .593 1968 Unknown [id number] 2.16.840.1.667316.3.579.2 .593 1968 Unknown [id number] 2.16.840.1.072333.3.579.2 .593 1968 Unknown [id number] 2.16.840.1.774060.3.579.2 .593 1968 Unknown [id number] 2.16.840.1.753886.3.579.2 .593 1968 Unknown [id number] 2.16.840.1.804258.3.579.2 .1259 1968 Unknown [id number] 2.16.840.1.785356.3.579.2 .1259 1968 Unknown [id number] 2.16.840.1.248549.3.579.2 .1259 1968 Unknown [id number] 2.16.840.1.372403.3.579.2 .1259 1968 Unknown [id number] 2.16.840.1.405921.3.579.2 .1259 1968 Unknown [id number] 2.16.840.1.453106.3.579.2 .1259 1968 Unknown [id number] 2.16.840.1.265466.3.579.2 .1259 1968 Unknown [id number] 2.16.840.1.056858.3.579.2 .196 1968 Unknown [id number] 2.16.840.1.389068.3.579.2 .196 1968 Unknown [id number] 2.16.840.1.114742.3.579.2 .196 1968 Unknown [id number] 2.16.840.1.153339.3.579.2 .196 1968 Unknown [id number] 2.16.840.1.038317.3.579.2 .196 1968 Unknown [id number] 2.16.840.1.899890.3.579.2 .196 1968 Unknown [id number] 2.16.840.1.716264.3.579.2 .196 1968 Unknown [id number] 2.16.840.1.321447.3.579.2 .173 1968 Unknown [id number] 1970 Unknown [id number] 1970 Unknown [id number] 1970 Unknown [id number] Social History Date Type Detail Facility Start: 06-04-2021 End: 09-08-2023 Tobacco smoking status NHIS Smokes tobacco daily [facility] History of tobacco use Cigarette Smoker [facility] Start: 06-04-2021 End: 06-09-2024 Cigarettes smoked current (pack per day) - Reported 1 [facility] Start: 06-04-2021 End: 09-08-2023 Tobacco use and exposure Smokeless tobacco non-user [facility] Start: 12-12-2021 End: 06-09-2024 Alcohol intake Current drinker of alcohol (finding) [facility] Start: 06-04-2021 History SDOH Alcohol Comment rarely. [facility] Start: 1970 Sex Assigned At Not on file [facility] Start: 11-29-2021 End: 12-09-2021 Exposure to SARS-CoV-2 (event) Unable to assess [facility] Start: 06-05-2021 End: 06-09-2024 Sex Assigned At [email or web address] Other Start: 05-05-2021 End: 06-04-2021 Exposure to SARS-CoV-2 (event) Not sure [facility] National Score (1-100), lower number is lower risk 95 [facility] (I/We) worried whether (my/our) food would run out before (I/we) got money to buy more. Never true [facility] Start: 09-08-2023 Tobacco Comment intermittently since 15 [facility] Start: 05-03-2020 Alcohol Comment hardly ever [facility] Medical Equipment Procedure Code Equipment Code Equipment Original Text Equipment Identifier Dates Impl Alena Spine R michael Ti35 Mm 55 Mm [id number] Start: 06-25-2020 Graft Spnl W11xh 7yf27ct Corticocancellous Lord Triad - [id number] Start: 05-09-2020 Plate Spnl L28mm Antr Cerv 1 Lev Translational Cecil Acp [id number] Start: 05-09-2020 Screw Spnl L13mm Dia4mm Ant Cerv [facility] Ang Compr Cecil Acp [id number] Start: 05-09-2020 Connector Spnl C rss Lo Prof Adj Reline-O 5.5 X 45-65 Mm [id number] Start: 06-25-2020 Screw Spnl Dia5. 5mm Opn Tulip Roselyn Reline [id number] Start: 06-25-2020 Graft Bne Sub 30 cc 1.7-10mm Canc Chip Morselized Frz Dry - [id number] Start: 06-25-2020 Graft Bne Sub 5m l Mtrx Cellular Osteocel + - [id number] Start: 06-25-2020 Spacer Spnl L W1 [id number] 4deg Post Lum Intbdy Fus Lord [id number] Start: 06-25-2020 Screw Spnl L50mm Dia7.5mm Post Thoracolumbosacral Polyax 2s [id number] Start: 06-25-2020 Screw Spnl L55mm Od6mm 2s Polyax Reline O [id number] Start: 06-25-2020 Alena Spnl Lordtc 5.5x40 Mm Ti Reline-O [id number] Start: 06-25-2020 Clip Endoscp 235 cm Resol 360 Order Uom Is Each - [id number] Start: 02-03-2024 Clinical Notes 04-02-2021 to 06-09-2024 Erika Oconnor RN - 06/09/2024 11:30 AM aMry Ann Rueda RN - 06/05/2024 11:25 AM Mary Ann Rueda RN - 06/02/2024 2:43 PM Marlon Washington MD - 12/12/2021 10:40 AM EDT Note Date & Type Note Facility 06-09-2024 History of Present illness Narrative Discharge Criteria Inpatients must meet Criteria 1 through 7. All other patients are either YES or N/A. If a NO is chosen then Anesthesia or Surgeon must be notified. 1. Minimum 30 minutes after last dose of sedative medication. Yes 2. Systolic BP between 90 - 160. Diastolic BP between 60 - 90. No, close to pts admission pressure, okay to discharge home. 3. Pulse between 60 - 120 Yes 4. Respirations between 8 - 25. Yes 5. SpO2 92% - 100%. Yes 6. Able to cough and swallow or return to baseline function. Yes 7. Alert and oriented or return to baseline mental status. Yes 8. Demonstrates controlled, coordinated movements, ambulates with steady gait, or return to baseline activity function. Yes 9. Minimal or no pain or nausea, or at a level tolerable and acceptable to patient. Yes 10. Takes and retains oral fluids as allowed. Yes 11. Procedural / perioperative site stable. Minimal or no bleeding. Yes 12. If GI endoscopy procedure, minimal or no abdominal distention or passing flatus. Yes 13. Written discharge instructions and emergency telephone number provided. Yes 14. Accompanied by a responsible adult. Yes Discharge instructions reviewed with pt and Vick visitor. All questions answered. Pt verbalizes readiness to go home. Patient states that received her prep instructions and home medications that are to be taken on the day of their procedure with a small sip of water only(atorvastatin, gabapentin, pristiq, metoprolol, omeprazole) from the physician's office. Patient has stopped her eliquis per her software developer intern, Dr Castro, who also provided cardiac clearance form for the patient for this procedure. NPO status (including no gum, hard candy, mints, water, coffee, or smoking) was reviewed and patient verbalizes understanding. Patient denies any fever related illnesses or antibiotic use in the last 4 weeks. Patient is complaining of increased back pain so she does request we are aware of that for the day of the procedure, patient was encouraged to remind the staff on the day of her procedure. She verbalized understanding. Attempted PAT phone call; no answer; message left to return PAT phone call. documented in this encounter [facility] 06-09-2024 Hospital Discharge instructions Maximiliano You MD - 06/09/2024 10:50 AM EST 1) You do not have a residual ulcer, nor does it look like you have Sloan's esophagus. 2) Biopsies were done of your esophagus to look for Sloan's 3) You can still have significant gastroesophageal reflux with a normal endoscopy. 4) You will be called with the biopsy results 5) Follow up as desired or needed Discharge Instructions for EGD An EGD or upper GI endoscopy is a visual exam of the lining of the esophagus, stomach (gastric) and duodenum (the first part of the small intestine). An endoscopy is a flexible tube with a light and a viewing device. It allows the doctor to view the inside of the colon through a tiny video camera. EGD is performed for many reasons: unexplained anemia , pain, bleeding, heart burn, among many other reasons. Complications from a EGD are rare. Some possible serious complications include perforated bowel (which might require surgery) and bleeding (which could require blood transfusion ). Minor complications include bloating, gas, and cramping that can last for 1-2 days after the procedure. Because air is put into your upper GI during the procedure, it is normal to pass large amounts of air from your rectum and burp a lot. What You Will Need Someone to drive you home after the procedure Steps to Take Home Care Rest when you get home. Because the sedative will make you drowsy, don't drive, operate machinery, or make important decisions the day of the procedure. Feelings of bloating, gas, or cramping may persist for 24 hours. Diet Try sips of water first. If tolerated, resume regular diet or the diet recommended by your physician. Do not drink alcohol for 24 hours. Physical Activity You may return to work tomorrow. Do not drive, operate heavy machinery, or do activities that require coordination or balance until tomorrow Otherwise, return to your normal routine as soon as you are comfortable to do so, which is usually the next day after the procedure. Medications When taking medications, it's important to: Take your medication as directednot more, not less, not at a different time. Do not stop taking them without consulting your healthcare provider. Don't share them with anyone else. Know what effects and side effects to expect, and report them to your healthcare provider. If you are taking more than one drug, even if it is an tzjw-zvo-gvfbgzm medication, herb, or dietary supplement, be sure to check with a physician or pharmacist about drug interactions. Plan ahead for refills so you don't run out. Follow-up You will be called with your results usually within a week or We will have you make a follow up appointment if needed You are always welcome to follow up in person if you have questions or there are other issue you would like addressed Call Your Doctor If Any of the Following Occurs Monitor your recovery once you leave the hospital. As soon as you have a problem, alert your doctor. If any of the following occur, call your doctor or come to the emergency room Bleeding from your rectum; notify your doctor if you pass a teaspoonful or more of blood Black, tarry stools Severe abdominal or chest pain pain Hard, swollen abdomen Signs of infection, including fever or chills Inability to pass gas or stool Coughing, shortness of breath, chest pain, severe nausea or vomiting In case of an emergency, call 911 immediately. documented in this encounter [facility] 05-04-2024 Note Cardiovascular Medic ine [facility] SUBJECTIVE Lexi Garcia is a 54 y.o. [...] Unstable angina (CMS/HCC) Coronary artery disease involving [place] coronary artery of [place] heart without angina pectoris Degenerative joint disease [...] in 2019 Chronic pain disorder Clotting disorder ([facility]) Depression Factor V Leiden ([facility]) Fibromyalgia, primary GERD (gastroesophageal reflux disease) [...] in the morni (more content not included)... [facility] 01-25-2024 Note Attestation signed by Jessie Reid [...] able to decrease Celebrex to 200 BID [facility] Follow-up Patient Visit Subjective [...] surgery with numbness in hands and decreased global regulatory lead strength, R>L shoulders, neck (better since ablation). AM stiffness lasts 1-2 hrs (was 2-3 hr prior),, on average daily. Denies joint erythema, swelling, warmth. Comprehensive History: Patient Active Problem List Diagnosis Chest pain, atypical Benign essential HTN HOFFMAN (dyspnea on exertion) Fibromyalgia Elevated d-dimer Mixed hyperlipidemia GERD without esophagitis Orthopnea Sleep disturbances Abnormal nuclear stress test Unstable angina (CMS/HCC) Coronary artery disease involving [place] coronary artery of [place] heart without angina pectoris Degenerative joint disease [...] 80 mg ta (more content not included)... [facility] 11-02-2023 Note Cardiovascular Medic [facility] SUBJECTIVE Chief Complaint Patient presents [...] sx's with exertion. She has had worsened OHFFMAN such as with mowing the grass. She notes testing positive for factor V leiden per her PCP but she was not started on AC. Patient Active Problem List Diagnosis Chest pain, atypical Benign essential HTN HOFFMAN (dyspnea on exertion) Fibromyalgia Elevated d-dimer Mixed hyperlipidemia GERD without esophagitis Orthopnea Sleep disturbances Abnormal nuclear stress test Unstable angina (CMS/HCC) Coronary artery disease involving [place] coronary artery of [place] heart without angina pectoris Degenerative joint disease [...] , Rfl: o (more content not included)... [facility] 11-02-2023 Note ecg [facility] 10-26-2023 Note PT STATE SHE HAS BEE N DIZZY RECENTLY PT STATES TAKES MEDS TO MANAGE DEPRESSION SX [facility] 10-26-2023 Note Attestation signed by Jessei Reid MD at 10/26/2023 12:50 PM I [...] will decrease Celebrex due to worsening heartburn [facility] Follow-up Patient Visit Subjective [...] surgery with numbness in hands and decreased global regulatory lead strength, R>L shoulders, neck. AM stiffness lasts 1-2 hrs (was 2-3 hr prior), on average daily. Denies joint erythema, swelling, warmth. Comprehensive History: Patient Active Problem List Diagnosis Chest pain, atypical Benign essential HTN HOFFMAN (dyspnea on exertion) Fibromyalgia Elevated d-dimer Mixed hyperlipidemia GERD without esophagitis Orthopnea Sleep disturbances Abnormal nuclear stress test Unstable angina (CMS/HCC) Coronary artery disease involving [place] coronary artery of [place] heart without angina pectoris Degenerative joint disease [...] Chronic pain disorder Depression Factor V Leiden ([facility]) Fibromyalgia, primary GERD (gastroesophageal reflux disease) [...] 400 mg capsul (more content not included)... [facility] 06-22-2023 Note Attestation signed by Jessie [...] sclerosis noted on fist [facility] joints [facility] Follow-up Patient Visit Subjective [...] disturbances Abnormal nuclear stress test Unstable angina ([facility]) Coronary artery disease involving [place] coronary artery of [place] heart without angina pectoris Degenerative joint disease [...] Chronic pain disorder Depression Factor V Leiden ([facility]) Fibromyalgia, primary GERD (gastroesophageal reflux disease) [...] the morning. aspirin (more content not included)... [facility] 04-07-2023 Miscellaneous Notes Notify patient [...] C-reactive protein (CRP) C-REACTIVE PROTEIN (CRP) [SQCRP] 04/09/2410/06/23 10/05/22 Auth. provider: Gayle Washington MD Ass. diagnoses: Elevated sed rate, Elevated C-reactive protein (CRP) Chart notes faxed with confirmation. documented in this encounter [facility] 10-13-2022 Note OPERATIVE NOTE OPERATION DATE: [...] left cheek was prepped with Betadine. A [place] tip Bovie was then used to make [...] the recovery room in good condition. [facility] 10-07-2022 Note EXAM: XR CHEST 2 V HISTORY: Pre-surgery evaluation COMPARISON: None. TECHNIQUE: PA and lateral views of the chest. FINDINGS: The cardiomediastinal silhouette is normal. No focal consolidation is identified. There is no pneumothorax. No pleural effusion is noted. The osseous structures are intact. IMPRESSION: No acute cardiopulmonary process. Electronically authenticated by: JOSIAH LASHAUN Date: 2022-10-07 11:27 [facility] 07-23-2022 Note CONSULTATION CONSULTATION DATE: 07/23/2022 [...] Patient does agree with this plan. [facility] 06-11-2022 Note CONSULTATION CONSULTATION DATE: 06/11/2022 [...] q.h.s. 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 [facility] 05-18-2022 Miscellaneous Notes Patient's request for medication is as follows: Requested Prescriptions Signed Prescriptions Disp Refills celecoxib (CELEBREX) 200 mg capsule 180 capsule 3 Sig: Take 1 capsule by mouth twice daily. Prescription(s) as above. Please process accordingly. Gayle Washington MD [employer] message sent to patient reminding her to [...] Lab Orders Expected Expires Ordered HLA-B27 PCR [[id number]] 06/19/21 06/18/22 06/18/21 Auth. provider: Gayle Washington MD Assoc. diagnoses: Elevated sedimentation rate VITAMIN D 25 HYDROXY [SQVITD] 03/19/22 12/17/22 12/17/21 Auth. provider: Gayle Washington MD Assoc. diagnoses: Vitamin D deficiency documented in this encounter [facility] 04-16-2022 Note CONSULTATION PROCEDURE DATE: 04/16/2022 [...] the clinic in three months' time. [facility] 04-09-2022 Note CONSULTATION CONSULTATION DATE: 04/09/2022 [...] to the clinic for her injection. [facility] 01-01-2022 Note CONSULTATION CONSULTATION DATE: 01/01/2022 This is a pleasant 51-year-old female returning to the clinic status post #2 bilateral MBB on C3, C4 and C5 that afforded her 80% relief for 5 days. 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 [facility] Signed and Approved by: BEN MONROE . 01/08/2022 10:22:00 [facility] 12-17-2021 Miscellaneous Notes Pt aware. Kamryn [...] to My Chart if tests completed at [facility]: Mildly low vitamin D- increase over [...] superior labral tear; documented in this encounter [facility] 12-12-2021 Note HNO ID: [id number] Author: Gayle Washington MD Service: ? Author [...] flat ground knees give out. COVID vaccine Evaporcool 06/26/21. Feels safe at home. 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 [facility] 12-12-2021 History of Present illness Narrative [...] improved with mobic, see ortho/pain clinic for fci pain recommendations/injections, prn acetaminophen, start prn heat/ice/otc arthritis creams, low impact weightbearing exercise as tolerated, avoid aggravating triggers,supportive care, start flexeril/notify office if not tolerated, improved with mobic, see ortho/pain clinic for fci pain recommendations/injections, prn acetaminophen, start prn heat/ice/otc [...] Urine or urethritis: no Renal/liver disease: no SITE LEASING AGENT/PNS/sz/cva/cancer disease: no HEME-Cytopenias/LAD/Clots: no Fevers: no Fatigue: [...] negative Jarvis's test, tinel's and marti tests [facility] JTS:no Tend. JTS:R>L shoulders, L elbow, neck, [...] flat ground knees give out. COVID vaccine [employer]apor[employer] 06/26/21. Feels safe at home. Has enough food, supplies and medications. Overall uncomfortable but happy with rheum care. = supportive care, start celebrex/notify office if not tolerated, OFF mobic/initially improved with medication but now effect wore off, prn flexeril, see pain clinic for adjunct faculty for medical terminology pain recommendations, see ortho/pain clinic for adjunct faculty for medical terminology pain recommendations/injections, prn acetaminophen, start prn heat/ice/otc [...] to side effects OFF lyrica no response adjunct faculty for medical terminology pain recommendations per primary care provider/pain clinic [...] video & audio (virtual) or phone or wipl-[id number] patient care, completing clinical documentation, obtaining and/or [...] Leora Gibbons, DO documented in this encounter [facility] 12-12-2021 Instructions Gayle Washington MD - [...] to side effects OFF lyrica no response fci pain recommendations per primary care provider/pain clinic nonfasting labs as scheduled Thank you. documented in this encounter [facility] 12-09-2021 Miscellaneous Notes Patient has been scheduled as requested for 12/12/21. Referral has been attached. I spoke with Ms. Garcia and she is aware of all of the appointment details. Nataliya DYKES December 09, 2021 2:43 PM Patient calling to schedule follow up appt with Dr Washington no schedule pulling for [facility] only Hilda. Patient requesting call at [phone] Washington is still at [facility]. Please advise. documented in this encounter [facility] 11-18-2021 Note PAIN MANAGEMENT CONS ULTATION CONSULTATION DATE: 11/18/2021 CHIEF COMPLAINT: Cervical pain. HISTORY OF PRESENT ILLNESS: This is a 51-year-old female who had, in the past, been seen by Dr. Brunner, Pain Management in [place], [place]. The patient had changed her insurances to [employer] and, as such, Dr. Brunner does [...] then an explanting of the hardware in 2020 at the level of C5-C6. Both of [...] like to proceed. CC: Kimberley Gibbons D.O. [facility] Signed and Approved by: DR RACHEL STOCK . 11/25/2021 12:22:00 [facility] 10-14-2021 Evaluation note Encounter Date Diagnosis Assessment [...] nerve block in the future if needed. [email or web address] Other 12-28-2021 Evaluation note* Encounter Date Diagnosis [...] right hip to further evaluate her pain. [email or web address] Other 12-15-2021 Evaluation note* Encounter Date Diagnosis [...] (ICD-10 - G89.29) Continue medications as prescribed [email or web address] Other 11-11-2021 Evaluation note* Encounter Date Diagnosis [...] (ICD-10 - G89.29) Continue medications as prescribed [email or web address] Other 09-29-2021 Evaluation note* Encounter Date Diagnosis [...] injection under ultrasound guidance in the future. [facility] [employer] Other Evaluation note* Diagnosis Secondary osteoarthritis of [...] Chronic pain syndrome documented in this encounter [facility] [employer] Other Evaluation note* Diagnosis Secondary osteoarthritis of multiple sites- Primary Osteoarthrosis involving, or with mention of more than one site, but not specified as generalized, multiple sites Vitamin D deficiency Unspecified vitamin D deficiency Fibromyalgia Mylagia and myositis, unspecified [facility] Diagnosis Secondary osteoarthritis of multiple sites Osteoarthrosis involving, or with mention of more than one site, but not specified as generalized, multiple sites documented in this encounter [facility] note* Diagnosis Chronic hip pain, bilateral Chronic left shoulder pain Pain in joint, shoulder region Chronic pain of both knees Bilateral hand pain Pain in limb documented in this encounter [facility] note* Diagnosis Secondary osteoarthritis of multiple sites Osteoarthrosis involving, or with mention of more than one site, but not specified as generalized, multiple sites Cervicalgia Chronic bilateral low back pain with bilateral sciatica [facility] Diagnosis Flatulence, eructation and gas pain Flatulence, eructation, and gas pain Chronic GERD documented in this encounter [facility] [employer] [facility] note* Diagnosis GERD (gastroesophageal reflux disease)- Primary Esophageal reflux History of gastric ulcer Personal history of other diseases of digestive system History of Sloan's esophagus documented in this encounter [facility] [employer] [facility] general Narrative - Reported* Type Description Date Medical History allergies Medical History factor 5 blood disorder Medical History anxiety Medical History depression Medical History bipolar Medical History lumbar DDD Surgical History back surgery 06/2021 Surgical History neck surgery 05/2021 Hospitalization History see above [email or web address] Other History general Narrative - Reported* Type Description Date Medical History allergies Medical History factor 5 blood disorder Medical History anxiety Medical History depression Medical History bipolar Medical History lumbar DDD Medical History osteoarthritis of multiple joint s Surgical History back surgery 06/2021 Surgical History neck surgery 05/2021 Hospitalization History see above [email or web address] Other History of Present illness NarrativePatient has continued intermittent pain symptoms in her right shoulder she is remotely status post rotator cuff repair she had a follow-up MRI scan recently she would like to review with me today. She had a subacromial injection but it did not resolve all of her symptoms.[id number] Work Phone: Reason for referral (narrative)* Diagnostic Procedure Only (Routine) - Closed Specialty Diagnoses / Procedures Referred By Contac t Referred To Contact XR IMAGING Diagnoses Bilateral hand pain Procedures XR HAND GENERAL 3V PA/LAT/OBL BILATERAL X-RAY HAND MINIMUM 3 VIEWS Gayle Washington MD [address] [place] [address] Xr Imaging Referral ID Status Reason Start Date Expiration Date V isits Requested Visits Authorized [id number] Closed Auto-Generate d Referral 06/04/2021 07/04/2022 1 1 * Diagnostic Procedure Only (Routine) - Closed Specialty Diagnoses / Procedures Referred By Contac t Referred To Contact XR IMAGING Diagnoses Chronic pain of both knees Procedures XR KNEE GENERAL 4V AP BOTH/PA BOTH/LAT/MERC BILATERAL KNEE AP-WGT/LAT/MERCHANT Gayle Washington MD [address] [place] [address] Xr Imaging Referral ID Status Reason Start Date Expiration Date V isits Requested Visits Authorized [id number] Closed Auto-Generate d Referral 06/04/2021 07/04/2022 1 1 * Diagnostic Procedure Only (Routine) - Closed Specialty Diagnoses / Procedures Referred By Contac t Referred To Contact XR IMAGING Diagnoses Chronic left shoulder pain Procedures XR SHOULDER GENERAL 3V OR MORE AP/TRUE AP/OTHER LEFT X-RAY SHOULDER COMPLET MIN 2 VIEWS aGyle Washington MD [address] [address] Xr Imaging Referral ID Status Reason Start Date Expiration Date V isits Requested Visits Authorized [id number] Closed Auto-Generate d Referral 06/04/2021 07/04/2022 1 1 * Diagnostic Procedure Only (Routine) - Closed Specialty Diagnoses / Procedures Referred By Contac t Referred To Contact XR IMAGING Diagnoses Chronic hip pain, bilateral Procedures XR HIP BILATERAL 5V PEL/AP/LAT EACH HIP RADEX HIPS BILATERAL WITH PELVIS MINIMUM 5 VIEWS Gayle Washington MD [address] [place] [address] Xr Imaging Referral ID Status Reason Start Date Expiration Date V isits Requested Visits Authorized [id number] Closed Auto-Generate d Referral 06/04/2021 07/04/2022 1 1 [facility] for visit Narrative* Diagnostic Procedure Only (Routine) - Closed Specialty Diagnoses / Procedures Referred By Contac t Referred To Contact XR IMAGING Diagnoses Bilateral hand pain Procedures XR HAND GENERAL 3V PA/LAT/OBL BILATERAL X-RAY HAND MINIMUM 3 VIEWS Gayle Washington MD [address] [place] [address] Xr Imaging Referral ID Status Reason Start Date Expiration Date V isits Requested Visits Authorized [id number] Closed Auto-Generate d Referral 06/04/2021 07/04/2022 1 1 [facility] Summary Purpose Family History No Family [...] Code 06/25/2020 2:09 PM 06/27/2020 8:24 PM Date Activated Date Inactivated Comments 06/25/2020 2:09 PM 06/27/2020 8:24 PM Chief Complaint RIGHT SHOULDER FUV/ NK Reason for Referral Specialty Diagnoses / Procedures Referred By Contac t Referred To Contact Orthopedics Diagnoses Chronic pain of both knees Chronic right shoulder pain Elbow pain, left Procedures CONSULT TO ORTHOPAEDICS OFFICE/OUTPATIENT [facility] 60-74 MINUTES Gayle Washington MD [address] [place] [address] Referral ID Status Reason Start Date Expiration Date Visits Requested Visits Authorized [id number] Pending Review PCP Requested Referral 12/12/2021 12/12/2022 1 1 Additional Source Comments INFORMATION SOURCE (unrecogn ized section and content) DATE CREATED AUTHOR 06/20/2020 [facility] DATE CREATED AUTHOR AUTHOR'S ORGANIZ ATION 06/27/2020 [facility] DATE CREATED AUTHOR AUTHOR'S ORGANIZ ATION 12/01/2020 [facility] DATE CREATED AUTHOR AUTHOR'S ORGANIZ ATION 02/23/2021 [facility] DATE CREATED AUTHOR AUTHOR'S ORGANIZ ATION 02/23/2021 [employer] DATE CREATED AUTHOR AUTHOR'S ORGANIZ ATION 12/26/2021 [facility] DATE CREATED AUTHOR AUTHOR'S ORGANIZ ATION 07/02/2022 [facility] dical Specialist DATE CREATED AUTHOR AUTHOR'S ORGANIZ ATION 10/08/2022 [facility] DATE CREATED AUTHOR AUTHOR'S ORGANIZ ATION 10/20/2022 [facility] DATE CREATED AUTHOR AUTHOR'S ORGANIZ ATION 10/30/2023 [facility] dical Specialists [facility] DATE CREATED AUTHOR AUTHOR'S ORGANIZ ATION 05/23/2024 [facility] DATE CREATED AUTHOR AUTHOR'S ORGANIZ ATION 06/09/2024 [facility] DATE CREATED AUTHOR AUTHOR'S ORGANIZ ATION 06/16/2024 [facility] Source Comments (unrecognize d section and content) In the event this informatio n is protected by the Federal Confidentiality of Alcohol and Drug Abuse Patient Records regulations: The Federal rules restrict any use of the information to criminally investigate or prosecute any alcohol or drug abuse patient.[facility] the event this information is protected by the Federal Confidentiality of Alcohol and Drug Abuse Patient Records regulations: The Federal rules restrict any use of the information to criminally investigate or prosecute any alcohol or drug abuse patient.[facility] Hospital[facility] the event this information is protected by the Federal Confidentiality of Alcohol and Drug Abuse Patient Records regulations: The Federal rules restrict any use of the information to criminally investigate or prosecute any alcohol or drug abuse patient.[facility] Hospital[facility] the event this information is protected by the Federal Confidentiality of Alcohol and Drug Abuse Patient Records regulations: The Federal rules restrict any use of the information to criminally investigate or prosecute any alcohol or drug abuse patient.[facility] Hospital[facility] the event this information is protected by the Federal Confidentiality of Alcohol and Drug Abuse Patient Records regulations: The Federal rules restrict any use of the information to criminally investigate or prosecute any alcohol or drug abuse patient.[facility] Hospital[facility] the event this information is protected by the Federal Confidentiality of Alcohol and Drug Abuse Patient Records regulations: The Federal rules restrict any use of the information to criminally investigate or prosecute any alcohol or drug abuse patient.[facility] Reason for Visit (unrecogniz ed section and content) Reason Comments Follow Up Pain ongoing generalized pain. Specialty Diagnoses / Procedures Referred By Contac t Referred To Contact RHEUMATOLOGY Diagnoses Follow Up Procedures OFFICE/OUTPATIENT ESTABLISHED MOD MDM 30-39 MIN Follow Up Gayle Washington MD [address] [place] [address] [facility] [place] [address] Referral ID Status Reason Start Date Expiration Date Visits Requested Visits Authorized [id number] Waiting for Response OON/Self Pay Override Patient cleared - OON Required Payment Collected 12/08/2021 03/08/2022 1 1 Reason Comments Appointment Reason Comments Results Specialty Diagnoses / Procedures Referred By Contac t Referred To Contact Diagnoses GERD (gastroesophageal reflux disease) GERD (gastroesophageal reflux disease) [K21.9] Procedures IA ESOPHAGOGASTRODUODENOSCOPY TRANSORAL DIAGNOSTIC IA EGD TRANSORAL BIOPSY SINGLE/MULTIPLE IA EGD BALLOON DILATION ESOPHAGUS <30 MM DIAM ESOPHAGOGASTRODUODENOSCOPY Maximiliano You MD [address] [place] [address] [facility] [address] [place] [address] Referral ID Status Reason Start Date Expiration Date Visits Re quested Visits Authorized [id number] 1 1 Care Teams (unrecognized sec tion and content) Breakfast Hostess Relationship Specialty Start Date End Date EdwigeKimberley, DO [address] [place] [address] PCP - General Family Practice 06/04/21 Breakfast Hostess Relationship Specialty Start Date End Date EdwigeKimberley DO [address] [place] [address] PCP - General Family Practice 06/04/21 Breakfast Hostess Relationship Specialty Start Date End Date EdwigeKimberley DO [address] [place] [address] PCP - General Family Medicine 06/04/21 Breakfast Hostess Relationship Specialty Start Date End Date EdwigeKimberleyce DO [address] [place] [address] PCP - General Family Medicine 06/04/21 Breakfast Hostess Relationship Specialty Start Date End Date Kimberley Gibbons DO [address] [place] [address] PCP - General Family Medicine 06/04/21 Breakfast Hostess Relationship Specialty Start Date End Date Kimberley Gibbons DO [address] [place] [address] PCP - General Family Medicine 06/04/21 Scheduled Active and Recently Administ ered Medications (unrecognized section and content) Medication Order 06/07/2024 06/08/2024 06/09/2024 famotidine (PEPCID) 20 mg in sodium chloride (PF) 0.9 % 10 mL injection 20 mg, IntraVENous, 2 TIMES DAILY, First dose on Wed06/09/24 at 1045, Until Discontinued, IV Push over minimum of 2 minutes - Dilute with 10 mL NS, Pre-op (day of surgery) 1022 (Given - Provid er: Sherry Healy RN)2100 (Due) metoclopramide (REGLAN) injection 10 mg 10 mg, IntraVENous, EVERY 6 HOURS, First dose on Wed06/09/24 at 1045, Until Discontinued, IV Push: Max 10 mg over 1-2 minutes., PACU only 1022 (Given - Provid er: Sherry Healy RN)1645 (Due)2245 (Due) sodium chloride flush 0.9 % injection 5-40 mL 5-40 mL, IntraVENous, EVERY 12 HOURS SCHEDULED (2 times per day), First dose on Wed06/09/24 at 1115, Until Discontinued, For Line Patency: Peripheral IV = 5 mL; Midline or Central Line = 10 mL/lumen. If following IV push medication, administer flush at same rate as the IV push. Flush volume is determined by type of infusion therapy being given. For non-viscous solutions use: Peripheral IV = 5 mL Midline or Central Line = 10 mL/lumen For viscous solutions (i.e. blood components, parenteral nutrition, contrast media, or after obtaining blood sample) use: Peripheral IV = 10 mL Midline or Central Line = 20 mL/lumen, PACU only 1115 (Due)2100 (Due) Continuous Medication Order 06/07/2024 06/08/2024 06/09/2024 0.9 % sodium chloride infusion IntraVENous, at 100 mL/hr, CONTINUOUS, Starting on Wed06/09/24 at 1030, Pre-op (day of surgery) 1010 (New Bag - Prov ider: Sherry Healy RN)1026 (Paused - Provider: JARROD Fierro CRNA - Comment: Switch to gravity)1027 (New Bag - Provider: JARROD Fierro CRNA)1042 (Stopped - Provider: JARROD Fierro CRNA) PRN Medication Order 06/07/2024 06/08/2024 06/09/2024 0.9 % sodium chloride infusion IntraVENous, at 5-250 mL/hr, PRN, if patient receiving piggyback infusions and maintenance fluids are not ordered, Starting on Wed06/09/24 at 1056, For piggyback infusion, administer at same rate as piggyback for a total of 25 mL. Enter 25 mL into dose field and piggyback rate into rate field of order. If piggyback is infusing at a rate less than 100 mL/hr, enter 25 mL into dose field and 100 mL/hr into rate field of order., PACU only naloxone 0.4 mg in 10 mL sodium chloride syringe IntraVENous, PRN, Opioid Reversal, Starting on Wed06/09/24 at 1056, PRN if respiratory rate is less than 6/min and patient is difficult to arouse then notify physician STAT. Mix 9 mL of sodium chloride 0.9% with 0.4 mg (1 mL) of naloxone (NARCAN) in 10 mL syringe. (Note: dilution is 0.04 mg/mL) Give 0.08 mg (2 mL of special dilution), slow IV push, repeat up to 0.4 mg (10 mL) or until patient is responsive to physical stimulation and respiratory rate is equal to or greater than 6 breaths/min. Continue to observe, if no response within 3 minutes of administration of 0.4 mg (10 mL) total, repeat dose (0.4 mg as administered previously). Concentration 0.04 mg/mL, PACU only ondansetron (ZOFRAN) injection 4 mg (COMPLETED) 4 mg, IntraVENous, ONCE PRN, 1 dose, Starting on Wed06/09/24 at 1010, Until Wed06/09/24 at 1022, Nausea, Pre-op (day of surgery) 1022 (Given - Provid er: Sherry Healy RN) sodium chloride flush 0.9 % injection 5-40 mL 5-40 mL, IntraVENous, PRN, Starting on Wed06/09/24 at 1056, Until Discontinued, Line Care, After every IV line use, For Line Patency: Peripheral IV = 5 mL; Midline or Central Line = 10 mL/lumen. If following IV push medication, administer flush at same rate as the IV push. Flush volume is determined by type of infusion therapy being given. For non-viscous solutions use: Peripheral IV = 5 mL Midline or Central Line = 10 mL/lumen For viscous solutions (i.e. blood components, parenteral nutrition, contrast media, or after obtaining blood sample) use: Peripheral IV = 10 mL Midline or Central Line = 20 mL/lumen, PACU only FOR RECORDS PERTAINING TO PATIENTS WHO ARE [...] BE BASED ON THE PRIMARY CLINICAL RECORDS. [employer] provides no warranty or guarantee of the accuracy or completeness of information in this document.
[2024-07-03 11:09] VITALS: BP 145/95; PULSE 101; TEMP 36.1; O2SAT 96
[2024-07-03 11:16] LABS: Glucometer 285 mg/dL (74-106)
[2024-07-03 11:47] VITALS: BP 161/89; PULSE 87; O2SAT 94
[2024-07-03 11:48] VITALS: BP 144/90; PULSE 84; O2SAT 95
--- NOTE | 2024-07-03 11:53 | W.PM.PROCNOT ---
Date of procedure: 07/03/24 Pre-op diagnosis: Pain due to lumbar stenosis with neurogenic claudication Post-op diagnosis: same as pre-op Procedure: Procedure: Bilateral L4-5 transforaminal epidural steroid injection Medications: Bupivacaine 0.25% 2cc, lidocaine 2% 1cc, depomedrol 80mg The patient was seen and examined in the preoperative holding area.? Informed consent was obtained and placed on the chart.? Patient was brought to the medical procedure unit and placed in the prone position where a timeout was completed verifying the correct patient, procedure site, position, and planned special equipment using sterile aseptic technique.? Under direct fluoroscopic visualization a 25-gauge Quincke tipped spinal needle was advanced at level left L4-5 to the designated neural foramen where contrast dye was injected to show adequate spread.? There was no evidence of vascular or adverse uptake.? Epidural spread was appreciated.? The above-mentioned injectate was then placed in a 1.5 mL aliquot preceded by negative aspiration.? The needle was removed. The same procedure, at the same level, was completed on the opposite side. ? Patient was taken to the postprocedural recovery area and monitored for an appropriate length of time before found suitable for discharge in the accompaniment of a responsible adult. Anesthesia: Local Surgeon: Rosiebl Cotton Pathology: none sent Condition: stable Disposition: no change
[2024-07-03] MEDS: 0.9 % SODIUM CHLORIDE 10 ML SYRINGE - SALINE FLUSH INJ (11:54)
[2024-07-03] MEDS: IOHEXOL 240 MG/ML - 10 ML VIAL 12 MG INJ (11:54)
[2024-07-03] MEDS: BUPIVACAINE HCL 0.25% PF 25 MG/10 ML VIAL INJ (11:54)
[2024-07-03] MEDS: METHYLPREDNISOLONE ACETATE 80 MG/ML VIAL 40 MG INJ (11:55)
[2024-07-03] MEDS: LIDOCAINE HCL 2% 400 MG/20 ML MDV 3 ML INJ (11:55)
== END 2024-07-03 12:30 | disposition home or self-care (01) ==
LOC: SURGOUT 10:12
PROVIDERS: Visit Provider Anesthesiology
DX: M48.062 Spinal stenosis, lumbar region with neurogenic claudication (principal)
CPT/HCPCS: 36415; 64483; 82948; J0665; J1010; Q9966

== ENCOUNTER 2024-07-19 14:45 | Outpatient (OUT) | payer MEDICARE, SELFPAY ==
--- NOTE | 2024-07-19 15:03 | PM.CN ---
Consult Note: HPI Data of Consult Patient: known to practice within the last 3 years Requesting Physician: Stephanie Mike NP Primary Care Provider: Non-Staff Physician, Consult Narrative Reason for consult: chronic back pain Narrative: Lizbeth Garcia a pleasant 54 year old female presents for evaluation of chronic pain. Patient has a hx of cervical RFAs with Dr Thornton and tailbone RFAs with Dr Caballero. Lumbar spine surgery with lumbosacral fusion per pt L5-Sacral. Patient reporting pain today 5/10 in low back and tailbone, increasing to 8/10. increased with twisting, pushing, pulling, bending. failed to benefit from HEP greater than 6 weeks. recent bilateral L4-5 TFESI providing 70% improvement in leg pain and lumbar pain, per pt shes noticing increased tailbone and SIJ pain. no longer taking celebrex through rheumatology. on eliquis should not take NSAIDs. cc:: CC: Stephanie Mike NP Review of Systems ROS Musculoskeletal Reports: back pain and joint pain; Denies: extremity pain PFSH PFSH Medical History Former cigarette smoker ?Z87.891 - Personal history of nicotine dependence (ICD-10) Heartburn ?R12 - Heartburn (ICD-10) Acid reflux ?K21.9 - Gastro-esophageal reflux disease without esophagitis (ICD-10) Osteoarthritis ?M19.90 - Unspecified osteoarthritis, unspecified site (ICD-10) Low back pain ?M54.50 - Low back pain, unspecified (ICD-10) Factor 5 Leiden mutation, heterozygous ?D68.51 - Activated protein C resistance (ICD-10) Anxiety ?F41.9 - Anxiety disorder, unspecified (ICD-10) Obesity ?E66.9 - Obesity, unspecified (ICD-10) Diabetes ?E11.9 - Type 2 diabetes mellitus without complications (ICD-10) SOB (shortness of breath) ?R06.02 - Shortness of breath (ICD-10) High cholesterol ?E78.00 - Pure hypercholesterolemia, unspecified (ICD-10) Hypertension ?I10 - Essential (primary) hypertension (ICD-10) Irregular heart beat ?I49.9 - Cardiac arrhythmia, unspecified (ICD-10) Angina at rest ?I20.89 - Other forms of angina pectoris (ICD-10) Surgical History H/O arthroscopic knee surgery ?Z98.890 - Other specified postprocedural states (ICD-10) H/O lumbosacral spine surgery ?Z98.890 - Other specified postprocedural states (ICD-10) H/O cervical spine surgery ?Z98.890 - Other specified postprocedural states (ICD-10) H/O arthroscopy of shoulder ?Z98.890 - Other specified postprocedural states (ICD-10) H/O carpal tunnel repair ?Z98.890 - Other specified postprocedural states (ICD-10) H/O: hysterectomy ?Z90.710 - Acquired absence of both cervix and uterus (ICD-10) Meds Home Medications and Allergies Home Medications ?Medication ?Instructions ?Recorded ?Confirmed ?Type B-complex with vitamin C 1 tab PO DAILY 08/26/23 07/03/24 History acetaminophen 500 mg tablet 1,500 mg PO DAILY PRN pain 08/26/23 07/03/24 History (Tylenol Extra Strength) amlodipine 5 mg tablet 5 mg PO DAILY 08/26/23 07/03/24 History aspirin 81 mg capsule 81 mg PO DAILY 08/26/23 07/03/24 History atorvastatin 80 mg tablet 80 mg PO DAILY 08/26/23 07/03/24 History celecoxib 400 mg capsule (Celebrex) 400 mg PO BID 08/26/23 07/03/24 History cholecalciferol (vitamin D3) 50 50 mcg PO DAILY 08/26/23 07/03/24 History mcg (2,000 unit) capsule clonazepam 0.5 mg tablet 0.5 mg PO BID 08/26/23 07/03/24 History cyclobenzaprine 10 mg tablet 10 mg PO BID 08/26/23 07/03/24 History desvenlafaxine succinate 100 mg 100 mg PO DAILY 08/26/23 07/03/24 History tablet,extended release 24 hr (Pristiq) ezetimibe 10 mg tablet 10 mg PO DAILY 08/26/23 07/03/24 History lamotrigine 300 mg tablet,extended 300 mg PO DAILY 08/26/23 07/03/24 History release 24 hr magnesium glycinate PO 08/26/23 History metoprolol succinate 25 mg 25 mg PO DAILY 08/26/23 07/03/24 History tablet,extended release 24 hr quetiapine 200 mg tablet 200 mg PO DAILY 08/26/23 07/03/24 History gabapentin 300 mg capsule 300 mg PO DAILY #30 caps 03/30/24 07/03/24 Rx gabapentin 300 mg capsule 300 mg PO TID #90 caps 07/13/24 Rx Allergies Allergy/AdvReac Type Severity Reaction Status Date / Time ibuprofen AdvReac Mild Gastrointestinal Verified 07/03/24 11:16 Upset tramadol AdvReac Mild Gastrointestinal Verified 07/03/24 11:16 Upset Exam Constitutional Documenting provider has reviewed patient's vital signs: yes Common normals: no apparent distress, oriented x3, healthy appearing, alert and well nourished General appearance: cooperative HENMT Common normals: normocephalic, hearing grossly normal bilaterally and moist oral mucous membranes Head and scalp: normocephalic Eye Common normals: PERRL Pupil: PERRL Neck & C-Spine Common normals: full ROM General: normal visual inspection Cervical spine: cervical ROM normal; no pain with cervical ROM Other: negative spurlings strength 5/5 in BUE Chest Common normals: inspection of chest normal Respiratory Common normals: normal respiratory effort, no retractions and no use of accessory muscles Back & Pelvis Lumbar spine/lower back: pain with ROM, lumbar spinal tenderness and straight leg raise negative bilaterally Sacroiliac joints: SI joint(s) abnormal Other: bilateral SIJ positive pete(patricks), gaenslens, thigh thrust, compression test strength 5/5 in BLE sensation intact BLE Extremity Common normals: normal to inspection and full ROM Neuro Common normals: oriented x3, CN's II-XII intact bilaterally, moves all extremities, no focal motor deficits, no sensory deficits noted and deep tendon reflexes 2+ bilaterally Sensorium/orientation: alert Motor exam: no movement abnormalities noted Psych Common normals: mental status grossly normal, thought process normal, cooperative, affect normal, speech normal and activity/motor behavior normal Speech: normal speech Thought process: normal thought process Assessment and Plan Assessment and Plan (1) Lumbar stenosis with neurogenic claudication: (2) Sacroiliitis: Plan bilateral SIJ injection under fluoroscopy continue gabapentin 300mg TID continue flexeril 10mg daily prn continue NNCP, marijuana and benzo use f/u after injection
== END 2024-07-19 14:46 | disposition home or self-care (01) ==
LOC: PM 14:47
PROVIDERS: Visit Provider Nurse Practitioner
DX: M48.062 Spinal stenosis, lumbar region with neurogenic claudication (principal); M46.1 Sacroiliitis, not elsewhere classified
CPT/HCPCS: G0463

== ENCOUNTER 2024-10-25 09:47 | Outpatient (OUT) | payer MEDICARE, SELFPAY ==
--- NOTE | 2024-10-25 10:15 | P.CN_ITS ---
Consult Note: HPI Data of Consult Patient: known to practice within the last 3 years Requesting Physician: Stephanie Mike NP Primary Care Provider: Non-Staff Physician, Consult Narrative Reason for consult: chronic back pain Narrative: Lizbeth Garcia a pleasant 54 year old female presents for evaluation of chronic pain. Patient has a hx of cervical RFAs with Dr Thornton and tailbone RFAs with Dr Caballero. Lumbar spine surgery with lumbosacral fusion per pt L5-Sacral. Patient reporting pain today 8/10 right hip and groin, pt has noticed increased hip pain over the last 3 months without injury. previously had moderate to severe bilateral SIJ pain but did not undergo SIJ injection due to uncontrolled DM2. pt reports her average blood sugar is now 130. utilizing gabapentin, flexeril, tylenol PRN. cannot take NSAIDs as she is on eliquis. cc:: CC: Stephanie Mike NP Review of Systems ROS Status of ROS 10 or more systems reviewed and unremark able except as noted in history and below Musculoskeletal Reports: back pain and joint pain; Denies: extremity pain PFSH PFSH Medical History Former cigarette smoker ?Z87.891 - Personal history of nicotine dependence (ICD-10) Heartburn ?R12 - Heartburn (ICD-10) Acid reflux ?K21.9 - Gastro-esophageal reflux disease without esophagitis (ICD-10) Osteoarthritis ?M19.90 - Unspecified osteoarthritis, unspecified site (ICD-10) Low back pain ?M54.50 - Low back pain, unspecified (ICD-10) Factor 5 Leiden mutation, heterozygous ?D68.51 - Activated protein C resistance (ICD-10) Anxiety ?F41.9 - Anxiety disorder, unspecified (ICD-10) Obesity ?E66.9 - Obesity, unspecified (ICD-10) Diabetes ?E11.9 - Type 2 diabetes mellitus without complications (ICD-10) SOB (shortness of breath) ?R06.02 - Shortness of breath (ICD-10) High cholesterol ?E78.00 - Pure hypercholesterolemia, unspecified (ICD-10) Hypertension ?I10 - Essential (primary) hypertension (ICD-10) Irregular heart beat ?I49.9 - Cardiac arrhythmia, unspecified (ICD-10) Angina at rest ?I20.89 - Other forms of angina pectoris (ICD-10) Surgical History H/O arthroscopic knee surgery ?Z98.890 - Other specified postprocedural states (ICD-10) H/O lumbosacral spine surgery ?Z98.890 - Other specified postprocedural states (ICD-10) H/O cervical spine surgery ?Z98.890 - Other specified postprocedural states (ICD-10) H/O arthroscopy of shoulder ?Z98.890 - Other specified postprocedural states (ICD-10) H/O carpal tunnel repair ?Z98.890 - Other specified postprocedural states (ICD-10) H/O: hysterectomy ?Z90.710 - Acquired absence of both cervix and uterus (ICD-10) Meds Home Medications and Allergies Home Medications ?Medication ?Instructions ?Recorded ?Confirmed ?Type B-complex with vitamin C 1 tab PO DAILY 08/26/23 07/03/24 History acetaminophen 500 mg tablet 1,500 mg PO DAILY PRN pain 08/26/23 07/03/24 History (Tylenol Extra Strength) amlodipine 5 mg tablet 5 mg PO DAILY 08/26/23 07/03/24 History aspirin 81 mg capsule 81 mg PO DAILY 08/26/23 07/03/24 History atorvastatin 80 mg tablet 80 mg PO DAILY 08/26/23 07/03/24 History celecoxib 400 mg capsule (Celebrex) 400 mg PO BID 08/26/23 07/03/24 History cholecalciferol (vitamin D3) 50 50 mcg PO DAILY 08/26/23 07/03/24 History mcg (2,000 unit) capsule clonazepam 0.5 mg tablet 0.5 mg PO BID 08/26/23 07/03/24 History cyclobenzaprine 10 mg tablet 10 mg PO BID 08/26/23 07/03/24 History desvenlafaxine succinate 100 mg 100 mg PO DAILY 08/26/23 07/03/24 History tablet,extended release 24 hr (Pristiq) ezetimibe 10 mg tablet 10 mg PO DAILY 08/26/23 07/03/24 History lamotrigine 300 mg tablet,extended 300 mg PO DAILY 08/26/23 07/03/24 History release 24 hr magnesium glycinate PO 08/26/23 History metoprolol succinate 25 mg 25 mg PO DAILY 08/26/23 07/03/24 History tablet,extended release 24 hr quetiapine 200 mg tablet 200 mg PO DAILY 08/26/23 07/03/24 History gabapentin 300 mg capsule 300 mg PO DAILY #30 caps 03/30/24 07/03/24 Rx gabapentin 300 mg capsule 300 mg PO TID #90 caps 07/13/24 Rx cyclobenzaprine 10 mg tablet 10 mg PO HS PRN muscle spasm #30 10/25/24 Rx tabs gabapentin 300 mg capsule 300 mg PO TID #90 caps 10/25/24 Rx Allergies Allergy/AdvReac Type Severity Reaction Status Date / Time ibuprofen AdvReac Mild Gastrointestinal Verified 07/03/24 11:16 Upset tramadol AdvReac Mild Gastrointestinal Verified 07/03/24 11:16 Upset Exam Constitutional Documenting provider has reviewed patient's vital signs: yes Common normals: no apparent distress, oriented x3, healthy appearing, alert and well nourished General appearance: cooperative HENMT Common normals: normocephalic, hearing grossly normal bilaterally and moist oral mucous membranes Head and scalp: normocephalic Eye Common normals: PERRL Pupil: PERRL Neck & C-Spine Common normals: full ROM General: normal visual inspection Cervical spine: cervical ROM normal; no pain with cervical ROM Other: negative spurlings strength 5/5 in BUE Chest Common normals: inspection of chest normal Respiratory Common normals: normal respiratory effort, no retractions and no use of accessory muscles Back & Pelvis Lumbar spine/lower back: pain with ROM, lumbar spinal tenderness and straight leg raise negative bilaterally Sacroiliac joints: SI joint(s) abnormal Other: bilateral SIJ positive pete(patricks), gaenslens, thigh thrust, compression test, right > left strength 5/5 in BLE sensation intact BLE Extremity Common normals: normal to inspection and full ROM Right lower extremity: hip joint Other: increased pain with internal and external rotation of right hip Neuro Common normals: oriented x3, CN's II-XII intact bilaterally, moves all extremities, no focal motor deficits, no sensory deficits noted and deep tendon reflexes 2+ bilaterally Sensorium/orientation: alert Motor exam: no movement abnormalities noted Psych Common normals: mental status grossly normal, thought process normal, cooperative, affect normal, speech normal and activity/motor behavior normal Speech: normal speech Thought process: normal thought process Assessment and Plan Assessment and Plan (1) Sacroiliitis: (2) Right hip pain: Assessment and Plan: xray reviewed, no OA noted of right hip (3) Failed back syndrome: (4) Myalgia, other site: Plan proceed with right SIJ injection under fluoroscopy, previous injection provided >50% improvement for 3 months continue gabapentin 300mg TID continue flexeril 10mg daily prn continue NNCP, marijuana and benzo use f/u 2 weeks after SIJ injection
== END 2024-10-25 09:48 | disposition home or self-care (01) ==
LOC: PM 09:49
PROVIDERS: Visit Provider Nurse Practitioner
DX: M25.551 Pain in right hip (principal); M16.11 Unilateral primary osteoarthritis, right hip; M48.062 Spinal stenosis, lumbar region with neurogenic claudication; M46.1 Sacroiliitis, not elsewhere classified; M11.251 Other chondrocalcinosis, right hip
CPT/HCPCS: 73502; G0463

== ENCOUNTER 2024-10-25 10:40 | Outpatient (OUT) | payer MEDICARE, SELFPAY ==
--- NOTE | 2024-10-25 10:50 | XR_ITS ---
[address] [address] Patient Name: LEXI LEWIS MRN: [id number] date: 1970 Sex: F Assigned Patient Location: [facility] Current Patient Location: [facility] Accession/Order Number: [id number] Exam Date: 10/25/2024 11:21 Report Date: 10/25/2024 11:22 At the request of: KANNAN FRIEDMAN NP Procedure: XR hip RT min 2V 2 views right hip plain film COMPARISON: None HISTORY: Chronic right hip pain ACUTE FINDINGS: None DEGENERATIVE CHANGE: Subtle chondrocalcinosis. SOFT TISSUE FINDINGS: Unremarkable JOINT EFFUSION: None POSTOP CHANGES: None BONY MINERALIZATION: Adequate XR/XR hip RT min 2V IMPRESSION: Mild chondrocalcinosis. No significant degeneration or acute bony findings. Impression dictated by: Maximiliano Razo M.D.10/25/2024 11:22 AM Dictation Location: [place] [address] Electronically authenticated by: [id number] Y Date: 10/25/2024 11:22
--- NOTE | 2024-10-26 07:58 | P.CN_ITS ---
Consult Note: HPI Data of Consult Patient: known to practice within the last 3 years Requesting Physician: Stephanie Mike NP Primary Care Provider: Non-Staff Physician, Consult Narrative Reason for consult: chronic back pain Narrative: Lizbeth Garcia a pleasant 54 year old female presents for evaluation of chronic pain. Patient has a hx of cervical RFAs with Dr Thornton and tailbone RFAs with Dr Caballero. Lumbar spine surgery with lumbosacral fusion per pt L5-Sacral. Patient reporting pain today 8/10 right hip and groin, pt has noticed increased hip pain over the last 3 months without injury. previously had moderate to severe bilateral SIJ pain but did not undergo SIJ injection due to uncontrolled DM2. pt reports her average blood sugar is now 130. utilizing gabapentin, flexeril, tylenol PRN. cannot take NSAIDs as she is on eliquis. cc:: CC: Stephanie Mike NP Review of Systems ROS Status of ROS 10 or more systems reviewed and unremark able except as noted in history and below Musculoskeletal Reports: back pain and joint pain; Denies: extremity pain PFSH PFSH Medical History Former cigarette smoker ?Z87.891 - Personal history of nicotine dependence (ICD-10) Heartburn ?R12 - Heartburn (ICD-10) Acid reflux ?K21.9 - Gastro-esophageal reflux disease without esophagitis (ICD-10) Osteoarthritis ?M19.90 - Unspecified osteoarthritis, unspecified site (ICD-10) Low back pain ?M54.50 - Low back pain, unspecified (ICD-10) Factor 5 Leiden mutation, heterozygous ?D68.51 - Activated protein C resistance (ICD-10) Anxiety ?F41.9 - Anxiety disorder, unspecified (ICD-10) Obesity ?E66.9 - Obesity, unspecified (ICD-10) Diabetes ?E11.9 - Type 2 diabetes mellitus without complications (ICD-10) SOB (shortness of breath) ?R06.02 - Shortness of breath (ICD-10) High cholesterol ?E78.00 - Pure hypercholesterolemia, unspecified (ICD-10) Hypertension ?I10 - Essential (primary) hypertension (ICD-10) Irregular heart beat ?I49.9 - Cardiac arrhythmia, unspecified (ICD-10) Angina at rest ?I20.89 - Other forms of angina pectoris (ICD-10) Surgical History H/O arthroscopic knee surgery ?Z98.890 - Other specified postprocedural states (ICD-10) H/O lumbosacral spine surgery ?Z98.890 - Other specified postprocedural states (ICD-10) H/O cervical spine surgery ?Z98.890 - Other specified postprocedural states (ICD-10) H/O arthroscopy of shoulder ?Z98.890 - Other specified postprocedural states (ICD-10) H/O carpal tunnel repair ?Z98.890 - Other specified postprocedural states (ICD-10) H/O: hysterectomy ?Z90.710 - Acquired absence of both cervix and uterus (ICD-10) Meds Home Medications and Allergies Home Medications ?Medication ?Instructions ?Recorded ?Confirmed ?Type B-complex with vitamin C 1 tab PO DAILY 08/26/23 07/03/24 History acetaminophen 500 mg tablet 1,500 mg PO DAILY PRN pain 08/26/23 07/03/24 History (Tylenol Extra Strength) amlodipine 5 mg tablet 5 mg PO DAILY 08/26/23 07/03/24 History aspirin 81 mg capsule 81 mg PO DAILY 08/26/23 07/03/24 History atorvastatin 80 mg tablet 80 mg PO DAILY 08/26/23 07/03/24 History celecoxib 400 mg capsule (Celebrex) 400 mg PO BID 08/26/23 07/03/24 History cholecalciferol (vitamin D3) 50 50 mcg PO DAILY 08/26/23 07/03/24 History mcg (2,000 unit) capsule clonazepam 0.5 mg tablet 0.5 mg PO BID 08/26/23 07/03/24 History cyclobenzaprine 10 mg tablet 10 mg PO BID 08/26/23 07/03/24 History desvenlafaxine succinate 100 mg 100 mg PO DAILY 08/26/23 07/03/24 History tablet,extended release 24 hr (Pristiq) ezetimibe 10 mg tablet 10 mg PO DAILY 08/26/23 07/03/24 History lamotrigine 300 mg tablet,extended 300 mg PO DAILY 08/26/23 07/03/24 History release 24 hr magnesium glycinate PO 08/26/23 History metoprolol succinate 25 mg 25 mg PO DAILY 08/26/23 07/03/24 History tablet,extended release 24 hr quetiapine 200 mg tablet 200 mg PO DAILY 08/26/23 07/03/24 History gabapentin 300 mg capsule 300 mg PO DAILY #30 caps 03/30/24 07/03/24 Rx gabapentin 300 mg capsule 300 mg PO TID #90 caps 07/13/24 Rx cyclobenzaprine 10 mg tablet 10 mg PO HS PRN muscle spasm #30 10/25/24 Rx tabs gabapentin 300 mg capsule 300 mg PO TID #90 caps 10/25/24 Rx Allergies Allergy/AdvReac Type Severity Reaction Status Date / Time ibuprofen AdvReac Mild Gastrointestinal Verified 07/03/24 11:16 Upset tramadol AdvReac Mild Gastrointestinal Verified 07/03/24 11:16 Upset Exam Constitutional Documenting provider has reviewed patient's vital signs: yes Common normals: no apparent distress, oriented x3, healthy appearing, alert and well nourished General appearance: cooperative HENMT Common normals: normocephalic, hearing grossly normal bilaterally and moist oral mucous membranes Head and scalp: normocephalic Eye Common normals: PERRL Pupil: PERRL Neck & C-Spine Common normals: full ROM General: normal visual inspection Cervical spine: cervical ROM normal; no pain with cervical ROM Other: negative spurlings strength 5/5 in BUE Chest Common normals: inspection of chest normal Respiratory Common normals: normal respiratory effort, no retractions and no use of accessory muscles Back & Pelvis Lumbar spine/lower back: pain with ROM, lumbar spinal tenderness, straight leg raise positive right and straight leg raise positive left Sacroiliac joints: SI joint(s) abnormal Other: bilateral SIJ positive pete(patricks), gaenslens, thigh thrust, compression test strength 5/5 in BLE sensation intact BLE Extremity Common normals: normal to inspection and full ROM Right lower extremity: hip joint Other: increased pain with internal and external rotation of right hip Neuro Common normals: oriented x3 Sensorium/orientation: alert Motor exam: no movement abnormalities noted Psych Common normals: mental status grossly normal, thought process normal, cooperative, affect normal, speech normal and activity/motor behavior normal Speech: normal speech Thought process: normal thought process Results Additional Findings Additional findings: If on a controlled substance or opioids, I have checked an [place] report on this patient and there are no aberrancies noted in the prescribing history.??If on a controlled substance or opioid a drug screen was completed and reviewed within the last year, and if there has not been a drug screen completed we ordered one today to monitor higher risk, state monitored pain medication use. As part of providing excellent, safe, comprehensive care, the following was completed at our patient's visit: 1. A medication reconciliation and review to ensure accurate knowledge of current/active medications, including asking our patients to inform us about any [id number] medications or herbal remedies/nutritional supplements/alternative remedies. 2. A review to specifically ensure our patients have had annual screening for screening for depression, screening for tobacco use, and screening for unhealthy alcohol use. For concerning screenings had a discussion with the patient, provided patient education, and recommended follow-up with primary care provider when appropriate. If patient noted with a risk of falling, they received education on strength, gait, and balance training to prevent future risk of falling. Portions of this note may have been carried over from the previous visit and updated as appropriate. Please note this office utilizes paper charting in addition to the electronic medical record. A list of current medications, vitals, and PMH is available there as the clinical staff outside of myself do not have access to [employer] charting during the clinic day operations. As part of providing quality comprehensive care the current medications, vitals, and PMH were reviewed in the paper chart. Assessment and Plan Assessment and Plan (1) Cervical radiculopathy: Plan update right hip xray in consideration of right hip injection continue gabapentin 300mg TID continue flexeril 10mg daily prn continue NNCP, marijuana and benzo use
== END 2024-10-25 10:41 | disposition home or self-care (01) ==
PROVIDERS: Visit Provider Nurse Practitioner
DX: M25.551 Pain in right hip (principal); M16.11 Unilateral primary osteoarthritis, right hip; M11.251 Other chondrocalcinosis, right hip
CPT/HCPCS: 73502

== ENCOUNTER 2024-11-06 08:35 | Day surgery (SDC) | payer MEDICARE, SELFPAY ==
[2024-11-06 09:01] VITALS: BP 125/79; PULSE 93; TEMP 36.2; O2SAT 97
[2024-11-06 09:05] LABS: Glucometer 136 mg/dL (74-106)
[2024-11-06 09:51] VITALS: BP 125/76; BP 130/79; PULSE 83; PULSE 88; O2SAT 95; O2SAT 98
[2024-11-06] MEDS: METHYLPREDNISOLONE ACETATE 40 MG/ML VIAL INJ (09:52)
[2024-11-06] MEDS: IOHEXOL 240 MG/ML - 10 ML VIAL INJ (09:52)
[2024-11-06] MEDS: BUPIVACAINE HCL 0.25% PF 25 MG/10 ML VIAL 2 ML INJ (09:52)
[2024-11-06] MEDS: LIDOCAINE HCL 2% 400 MG/20 ML MDV INJ (09:52)
--- NOTE | 2024-11-06 09:53 | W.PM.PROCNOT ---
Date of procedure: 11/06/24 Pre-op diagnosis: Pain due to right sacroiliitis Post-op diagnosis: same as pre-op Procedure: Procedure: Right sacroiliac joint injection Medications: Bupivacaine 0.25% 4cc, depomedrol 80mg After informed consent was obtained, the patient was brought to the medical procedure unit and placed in the prone position, when a timeout was completed verifying correct patient, procedure, site, positioning, implant, and/or special equipment.? The skin overlying the area was prepped and draped in standard sterile fashion using alcohol.? A 25-gauge needle was inserted towards the right sacroiliac joint under direct fluoroscopic imaging.? Needle tip was advanced until the joint was encountered.? We instilled a total of 2 mL of solution.? Postoperatively needles were removed.? The patient tolerated the procedure well without complication.? The patient reported reduction in pain symptoms postoperatively. Anesthesia: Local Surgeon: Rosibel Cotton Pathology: none sent Condition: stable Disposition: no change
== END 2024-11-06 09:57 | disposition home or self-care (01) ==
PROVIDERS: Visit Provider Anesthesiology
DX: E11.8 Type 2 diabetes mellitus with unspecified complications (principal); M46.1 Sacroiliitis, not elsewhere classified
CPT/HCPCS: 27096; 36415; 82948; J0665; J1010; Q9966

== ENCOUNTER 2024-11-16 10:40 | Outpatient (OUT) | payer MEDICARE, SELFPAY ==
--- NOTE | 2024-11-16 11:01 | PM.CN ---
Consult Note: HPI Data of Consult Patient: known to practice within the last 3 years Requesting Physician: Stephanie Mike NP Primary Care Provider: Non-Staff Physician, Consult Narrative Reason for consult: chronic back pain Narrative: Lizbeth Garcia a pleasant 54 year old female presents for evaluation of chronic pain. Patient has a hx of cervical RFAs with Dr Thornton and tailbone RFAs with Dr Caballero. Lumbar spine surgery with lumbosacral fusion per pt L5-Sacral. Patient reporting pain today 4/10 in low back increasing to 10/10 with standing, walking, lifting, twisting, bending, ADLs, twisting. Pain improved with sitting and sleeping. recently underwent right SIJ injection with >60% improvement in sacroiliac joint pain, pt reports this is the best she has felt in so long. continuezs to utilize gabapentin 300mg TID and flexeril PRN. denies falls or injury since last visit. cc:: CC: Stephanie Mike NP Review of Systems ROS Status of ROS 10 or more systems reviewed and unremarkable except as noted in history and below Musculoskeletal Reports: back pain; Denies: extremity pain or joint pain PFSH [facility] Medical History Former cigarette smoker ?Z87.891 - Personal history of nicotine dependence (ICD-10) Heartburn ?R12 - Heartburn (ICD-10) Acid reflux ?K21.9 - Gastro-esophageal reflux disease without esophagitis (ICD-10) Osteoarthritis ?M19.90 - Unspecified osteoarthritis, unspecified site (ICD-10) Low back pain ?M54.50 - Low back pain, unspecified (ICD-10) Factor 5 Leiden mutation, heterozygous ?D68.51 - Activated protein C resistance (ICD-10) Anxiety ?F41.9 - Anxiety disorder, unspecified (ICD-10) Obesity ?E66.9 - Obesity, unspecified (ICD-10) Diabetes ?E11.9 - Type 2 diabetes mellitus without complications (ICD-10) SOB (shortness of breath) ?R06.02 - Shortness of breath (ICD-10) High cholesterol ?E78.00 - Pure hypercholesterolemia, unspecified (ICD-10) Hypertension ?I10 - Essential (primary) hypertension (ICD-10) Irregular heart beat ?I49.9 - Cardiac arrhythmia, unspecified (ICD-10) Angina at rest ?I20.89 - Other forms of angina pectoris (ICD-10) Surgical History H/O arthroscopic knee surgery ?Z98.890 - Other specified postprocedural states (ICD-10) H/O lumbosacral spine surgery ?Z98.890 - Other specified postprocedural states (ICD-10) H/O cervical spine surgery ?Z98.890 - Other specified postprocedural states (ICD-10) H/O arthroscopy of shoulder ?Z98.890 - Other specified postprocedural states (ICD-10) H/O carpal tunnel repair ?Z98.890 - Other specified postprocedural states (ICD-10) H/O: hysterectomy ?Z90.710 - Acquired absence of both cervix and uterus (ICD-10) Meds Home Medications and Allergies Home Medications ?Medication ?Instructions ?Recorded ?Confirmed ?Type B-complex with vitamin C 1 tab PO DAILY 08/26/23 11/06/24 History acetaminophen 500 mg tablet 1,500 mg PO DAILY PRN pain 08/26/23 11/06/24 History (Tylenol Extra Strength) amlodipine 5 mg tablet 5 mg PO DAILY 08/26/23 11/06/24 History aspirin 81 mg capsule 81 mg PO DAILY 08/26/23 11/06/24 History atorvastatin 80 mg tablet 80 mg PO DAILY 08/26/23 11/06/24 History cholecalciferol (vitamin D3) 50 50 mcg PO DAILY 08/26/23 11/06/24 History mcg (2,000 unit) capsule clonazepam 0.5 mg tablet 0.5 mg PO BID 08/26/23 11/06/24 History cyclobenzaprine 10 mg tablet 10 mg PO BID 08/26/23 11/06/24 History desvenlafaxine succinate 100 mg 100 mg PO DAILY 08/26/23 11/06/24 History tablet,extended release 24 hr (Pristiq) ezetimibe 10 mg tablet 10 mg PO DAILY 08/26/23 11/06/24 History lamotrigine 300 mg tablet,extended 300 mg PO DAILY 08/26/23 11/06/24 History release 24 hr metoprolol succinate 25 mg 25 mg PO DAILY 08/26/23 11/06/24 History tablet,extended release 24 hr quetiapine 200 mg tablet 200 mg PO DAILY 08/26/23 11/06/24 History gabapentin 300 mg capsule 300 mg PO TID #90 caps 07/13/24 11/06/24 Rx apixaban 2.5 mg tablet (Eliquis) 2.5 mg PO BID 11/06/24 11/06/24 History metformin 500 mg tablet 500 mg PO BID 11/06/24 11/06/24 History semaglutide 0.25 mg or 0.5 mg (2 0.5 mg subcut QWEEK 11/06/24 11/06/24 History mg/3 mL) subcutaneous pen injector (Ozempic) Allergies Allergy/AdvReac Type Severity Reaction Status Date / Time ibuprofen AdvReac Mild Gastrointestinal Verified 11/06/24 08:56 Upset tramadol AdvReac Mild Gastrointestinal Verified 11/06/24 08:56 Upset Exam Constitutional Documenting provider has reviewed patient's vital signs: yes Common normals: no apparent distress, oriented x3, healthy appearing, alert and well nourished General appearance: cooperative [facility] Common normals: normocephalic, hearing grossly normal bilaterally and moist oral mucous membranes Head and scalp: normocephalic Eye Common normals: PERRL Pupil: PERRL Neck & C-Spine Common normals: full ROM General: normal visual inspection Cervical spine: cervical ROM normal; no pain with cervical ROM Other: negative spurlings strength 5/5 in BUE Chest Common normals: inspection of chest normal Respiratory Common normals: normal respiratory effort, no retractions and no use of accessory muscles Back & Pelvis Lumbar spine/lower back: pain with ROM and lumbar spinal tenderness; straight leg raise positive Sacroiliac joints: SI joints normal; SI joints not abnormal Other: bilateral SIJ negative pete(patricks), gaenslens, thigh thrust, compression test strength 5/5 in BLE sensation intact BLE Extremity Common normals: normal to inspection and full ROM Neuro Common normals: oriented x3, CN's II-XII intact bilaterally, moves all extremities, no focal motor deficits, no sensory deficits noted and deep tendon reflexes 2+ bilaterally Sensorium/orientation: alert Motor exam: no movement abnormalities noted Psych Common normals: mental status grossly normal, thought process normal, cooperative, affect normal, speech normal and activity/motor behavior normal Speech: normal speech Thought process: normal thought process Assessment and Plan Assessment and Plan (1) Lumbar spondylosis: Assessment and Plan: The patient has had over 3 months of moderate to severe low back pain with functional impairment and inadequate response to conservative care including NSAIDS (unless there are contraindication such as concurrent blood thinners), multiple oral or topical pain medications, and home exercise program/physical therapy.? Patient has completed >6 weeks of guided home exercise program and/or formal physical therapy program without relief of their symptoms.? I have reviewed the imaging of the lumbar spine and no red flags were identified.? The Oswestry Disability Index was completed, and the patient scored a 54%.? The patient noted the following:?? moderate to severe pain with ADLs, sitting, standing, walking, social life, travel, sleep (2) Sacroiliitis: (3) Failed back syndrome: (4) Myalgia, other site: Plan bilateral L3-4 L4-5 facet medial branch block x2 working towards RFA for facet mediated low back pain under fluoroscopy continue gabapentin 300mg TID continue flexeril 10mg daily prn continue NNCP, marijuana and benzo use f/u after each injection
--- OUTSIDE RECORDS SUMMARY | 2024-11-16 11:02 | XMS_ITS | CCD ---
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 09-09-2017 02-11-2023 Chronic Residual codes; unclassified (1 source) Acquired absence of other specified parts of digestive tract; Translations: [ACQ ABSENCE OTH PART DIGESTV TRACT] Onset: 10-19-2022 Episodic Residual codes; unclassified (1 source) Acquired absence of both cervix and uterus; Translations: [ACQUIRED ABSENCE BOTH CERVIX AND UTERUS] Onset: 10-19-2022 Episodic Residual codes; unclassified (4 sources) Harmful pattern of use of nicotine; Translations: [Tobacco use] 11-07-2024 Episodic Retinal detachments; defects; vascular occlusion; and retinopathy (18 sources) Partial retinal artery occlusion; Translations: [Partial retinal artery occlusion, unspecified eye] Onset: 07-09-2016 02-11-2023 Chronic Spondylosis; intervertebral disc disorders; other back problems (20 sources) Degeneration of lumbar intervertebral disc; Translations: [Other intervertebral disc degeneration, lumbar region] Onset: 07-09-2016 Resolved: 10-14-2021 Chronic Sprains and strains (1 source) Strain of back muscle; Translations: [Strain of muscle, fascia and tendon of lower back, initial encounter] 09-22-2021 Episodic Substance-related disorders (20 sources) Nicotine dependence, cigarettes, uncomplicated; Translations: [Nicotine dependence, other tobacco product, uncomplicated] Onset: 06-18-2020 06-18-2020 Chronic Thyroid disorders (18 sources) Goiter; Translations: [Nontoxic goiter, unspecified] Onset: 07-09-2016 02-11-2023 Chronic Unclassified (1 source) LOW BACK PAIN, UNSPECIFIED; Translations: [LOW BACK PAIN, UNSPECIFIED] Onset: 07-28-2022 Unclassified (1 source) Inappropriate sinus tachycardia, so stated; Translations: [Inappropriate sinus tachycardia, so stated] Onset: 11-08-2024 Past or Other Problems Problem Classification Problem Date Documented Da te Episodic/Chronic Diabetes mellitus without complication (18 sources) Prediabetes; Translations: [Prediabetes] Onset: 01-19-2023 Episodic Diseases of mouth; excluding dental (20 sources) Unspecified lesions of oral mucosa; Translations: [Other diseases of tongue] Onset: 3 Episodic Disorders of teeth and jaw (18 sources) Temporomandibular joint disorder; Translations: [Unspecified temporomandibular joint disorder, unspecified side] Onset: 9 02-11-2023 Episodic Gastroduodenal ulcer (except hemorrhage) (20 sources) H/O: gastric ulcer; Translations: [Personal history of peptic ulcer disease] Onset: 4 06-09-2024 Episodic Mood disorders (18 sources) Mood disorders Onset: 4 Resolved: 5 10-28-2023 Nutritional deficiencies (2 sources) Cobalamin deficiency; Translations: [Deficiency of other specified B group vitamins] Onset: 2 Episodic Other acquired deformities (20 sources) Lumbar spondylolisthesis; Translations: [Spondylolisthesis, lumbar region] Onset: 0 06-25-2020 Episodic Other aftercare (18 sources) Drug therapy finding; Translations: [Other rodent exterminator (current) drug therapy] Onset: 3 02-11-2023 Episodic Other aftercare (18 sources) 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; Translations: [termite control servicer (current) use of non-steroidal anti-inflammatories (NSAID)] Onset: 3 07-26-2023 Episodic Other aftercare (2 sources) [facility] (current) use of non-steroidal anti-inflammatories (NSAID); Translations: [[facility] (current) use of non-steroidal anti-inflammatories (nsaid)] Onset: 3 Episodic Other bone disease and musculoskeletal deformities (18 sources) Osteopenia; Translations: [Other specified disorders of bone density and structure, unspecified site] Onset: 3 07-26-2023 Episodic Other bone disease and musculoskeletal deformities (2 sources) Other specified disorders of bone density and structure, unspecified site; Translations: [Other specified disorders of bone density and structure, unspecified site] Onset: 3 Episodic Other connective tissue disease (20 sources) Pain of bilateral hands; Translations: [Pain in right hand] Onset: 1 Episodic Other connective tissue disease (20 sources) Fibromyalgia; Translations: [Fibromyalgia] Onset: 2 12-17-2021 Episodic Other connective tissue disease (18 sources) Full thickness rotator cuff tear; Translations: [Complete rotator cuff tear or rupture of unspecified shoulder, not specified as traumatic] Onset: 9 01-19-2023 Episodic Other connective tissue disease (18 sources) Lateral epicondylitis; Translations: [Lateral epicondylitis, unspecified elbow] Onset: 7 01-19-2023 Episodic Other connective tissue disease (1 source) Fibromyalgia; Translations: [Fibromyalgia] Onset: 3 Episodic Other connective tissue disease (2 sources) Other bursitis of knee, unspecified knee; Translations: [Other bursitis of knee, unspecified knee] Onset: 4 Episodic Other gastrointestinal disorders (20 sources) History of Sloan's esophagus; Translations: [Personal history of other diseases of the digestive system] Onset: 4 06-09-2024 Episodic Other gastrointestinal disorders (1 source) Flatulence; Translations: [Flatulence] Onset: 4 Episodic Other gastrointestinal disorders (1 source) Gas pain; Translations: [Gas pain] Onset: 4 Episodic Other gastrointestinal disorders (1 source) Eructation; Translations: [Eructation] Onset: 4 Episodic Other hematologic conditions (1 source) Elevated erythrocyte sedimentation rate; Translations: [Elevated sed rate] Onset: 2 Episodic Other lower respiratory disease (18 sources) Dyspnea on exertion; Translations: [Other forms of dyspnea] Onset: 3 01-19-2023 Episodic Other nervous system disorders (18 sources) Skin sensation disturbance; Translations: [Unspecified disturbances of skin sensation] Onset: 7 02-11-2023 Episodic Other non-traumatic joint disorders (20 sources) Pain in right knee; Translations: [Pain in joint, lower leg] Onset: 1 Episodic Other non-traumatic joint disorders (20 sources) Hip pain; Translations: [Pain in right hip] Onset: 1 Episodic Other non-traumatic joint disorders (6 sources) Chronic pain of left upper limb; Translations: [Pain in left shoulder] Onset: 1 06-05-2021 Episodic Other non-traumatic joint disorders (1 source) Pain in right hip Onset: 1 Resolved: 1 Episodic Other non-traumatic joint disorders (2 sources) Pain in unspecified joint; Translations: [Pain in unspecified joint] Onset: 4 Episodic Other nutritional; endocrine; and metabolic disorders (1 source) Hyperuricemia without signs of inflammatory arthritis and tophaceous disease; Translations: [Hyperuricemia] Onset: 2 Episodic Other screening for suspected conditions (not mental disorders or infectious disease) (20 sources) Elevated C-reactive protein; Translations: [Elevated C-reactive protein (CRP)] Onset: 1 Episodic Other skin disorders (20 sources) Soft tissue swelling; Translations: [Localized swelling, mass and lump, unspecified] Onset: 1 06-06-2021 Episodic Other skin disorders (18 sources) Axillary hidradenitis suppurativa; Translations: [Hidradenitis suppurativa] Onset: 9 01-19-2023 Episodic Other skin disorders (18 sources) Chloasma; Translations: [Chloasma] Onset: 7 01-19-2023 Episodic Phlebitis; thrombophlebitis and thromboembolism (20 sources) Superficial thrombophlebitis; Translations: [Phlebitis and thrombophlebitis of unspecified site] Onset: 7 02-11-2023 Episodic Residual codes; unclassified (18 sources) High risk sexual behavior; Translations: [High risk heterosexual behavior] Onset: 7 02-11-2023 Episodic Residual codes; unclassified (18 sources) Disturbance in sleep behavior; Translations: [Sleep disorder, unspecified] Onset: 3 02-11-2023 Episodic Screening and history of mental health and substance abuse codes (18 sources) History of mood disorder; Translations: [Personal history of other mental and behavioral disorders] Onset: 7 01-19-2023 Episodic Skin and subcutaneous tissue infections (20 sources) Cellulitis of face; Translations: [Cellulitis of face] Onset: 7 01-19-2023 Episodic Spondylosis; intervertebral disc disorders; other back problems (20 sources) Chronic low back pain; Translations: [Lumbago with sciatica, left side] Onset: 7 Resolved: 2 Episodic Substance-related disorders (18 sources) Marijuana user; Translations: [Cannabis use, unspecified, uncomplicated] Onset: 3 02-11-2023 Episodic Unclassified (1 source) Inappropriate sinus tachycardia, so stated; Translations: [Inappropriate sinus tachycardia, so stated] Onset: 5 Viral infection (20 sources) Herpes zoster without complication; Translations: [Zoster without complications] Onset: 7 01-19-2023 Episodic Results Test Name Value Interpretation Reference Range Facility 37on 11-08-2024 37 *Increase metoprolol to 50mg daily. You can take 2 tablets of your current prescription until this runs out then start the new prescription of 1 tablet, 50mg daily. *Follow-up in 3 months with a heart ultrasound prior. Normal [facility] - Hematology and Cell countson 11-08-2024 HbA1c (Bld) [Mass fraction] 6.1 % [facility] No Panel Informationon 11-08 Interpretation and review of laboratory results Normal [facility] Healthcare Office Visiton 11-08-2024 Follow-up visit [id number] Nikko Garcia 1970 F Date Provider Department Center 11/08/2024 TIM CORONEL Family History Problem Relation Age of Onset COPD Mother Heart failure Mother Coronary artery disease Father 56 Family Status - Relation Status Age at Mother Father Sister Alive Brother Alive Level of Service:36167 [place] OFFICE/OUTPATIENT ESTABLISHED MOD MDM 30 MIN Reason for Visit and Comments: Palpitations [254770] Normal [facility] Office Visiton 10-17-2024 Follow-up visit [id number] Nikko Garcia 1970 F Date Provider Department Center 10/17/2024 TIM CORONEL Family History Problem Relation Age of Onset COPD Mother Heart failure Mother Coronary artery disease Father 56 Family Status - Relation Status Age at Mother Father Sister Alive Brother Alive Level of Service:03151 [place] OFFICE/OUTPATIENT ESTABLISHED MOD MDM 30 MIN Reason for Visit and Comments: Palpitations [812104] Hypertension [008725] Coronary Artery Disease [187] Chest Pain [078495] [facility] Orders Onlyon 08-07-2024 Orders Only [id number] Nikko Garcia ynthia 1970 F Date Provider Department Center 08/07/2024 Amanda-FRANKLIN AYLeeann [facility] Family History Problem Relation Age of Onset COPD Mother Coronary artery disease Father 56 Family Status - Relation Status Age at Mother Alive Father [facility] Orders Onlyon 08-04-2024 Orders Only [id number] Nikko Garcia ynthia 1970 F Date Provider Department Center 08/04/2024 Amanda-FRANKLIN, AYA [facility] Family History Problem Relation Age of Onset COPD Mother Coronary artery disease Father 56 Family Status - Relation Status Age at Mother Alive Father [facility] 08-03-2024 36 Csw called and wanted Dr. Rodriguez to clarify that the patient should be taking 3 pill a day instead of two [facility] 07-27-2024 36 [facility] Csw fr reggie Julio called and wanted to know can you clarify on the directions of how you want the patient to take her Celebrex medication because there is two different direction on how to take the Celebrex medication when the medcation was sent the from time [facility] Refillon 07-27-2024 Refill [id number] Nikko Garcia ynthia 1970 F Date Provider Department Center 07/27/2024 OVIDIO SANTILLAN [facility] Family History Problem Relation Age of Onset COPD Mother Coronary artery disease Father 56 Family Status - Relation Status Age at Mother Alive Father [facility] 36on 07-04-2024 36 Last Visit: 01/25/24 No Upcoming Visit [facility] Refill [id number] Nikko Garcia 1970 F Date Provider Department Center 07/04/2024 1214-SOLITARIO [facility]ARC[facility] Family History Problem Relation Age of Onset COPD Mother Coronary artery disease Father 56 Family Status - Relation Status Age at Mother Alive Father Reason for Visit and Comments: Med Refill [430193] [facility] EGDon 06-09-2024 No dictation [facility] EGDOrdered By: User Epic on 06-09-2024 [facility] Work Phone: Surgical Pathology Reporton 06-09-2024 Surgical Pathology Report (NOTE) Path Number: [id number] -- Diagnosis -- DISTAL ESOPHAGUS, BIOPSY: -SQUAMOUS MUCOSA WITH NO PATHOLOGIC DIAGNOSIS Curtis Leroy D.O. Electronically Signed Out ljf/06/13/2024 Clinical Information Pre-Op Diagnosis: GERD (GASTROESOPHAGEAL REFLUX DISEASE) Operative Findings: DISTAL ESOPHAGUS BIOPSIES Operation Performed: ESOPHAGOGASTRODUODENOSCOPY BIOPSY se Source of Specimen A: DISTAL ESOPHAGUS BIOPSIES Gross Description LEXI GARCIA DISTAL ESOPHAGUS BIOPSIES Received in formalin are two pink-rosado tissue fragments from 0.2 to 0.4 cm and are 0.4 x 0.3 x 0.2 cm in aggregate. Entirely 1 cs. ritesh mj Piyush Lozano M.D./se:06/12/2024 Microscopic Description Microscopic examination performed. Processing Lab: [facility] [address] [place] [id number] [place] [address] SURGICAL PATHOLOGY CONSULTATION Patient Name: LEXI GARCIA Med Rec: [id number] [facility] [employer] ANATOMIC PATHOLOGY [address] [facility]. [place], [place] [address] [facility] Orders Onlyon 05-17-2024 Orders Only [id number] Nikko Garciabostonmaria t 1970 F Date Provider Department Center 05/17/2024 3848-[facility] Family History Problem Relation Age of Onset COPD Mother Coronary artery disease Father 56 Family Status - Relation Status Age at Mother Alive Father Normal [facility] Office Visiton 05-04-2024 Follow-up visit [id number] Nikko Garcia 1970 F Date Provider Department Center 05/04/2024 3848-DALE HUTCHISON ALYSA Lorenzana Family History Problem Relation Age of Onset COPD Mother Coronary artery disease Father 56 Family Status - Relation Status Age at Mother Alive Father Level of Service:26640 [place] OFFICE/OUTPATIENT ESTABLISHED LOW MDM 20 MIN Normal [facility] Surgical Pathology Reporton 02-03-2024 Surgical Pathology Report (NOTE) Path Number: [id number] -- Diagnosis -- A. STOMACH, ANTRUM, BIOPSIES: [...] Description A-C. Microscopic examination performed. Processing Lab: [address] [id number] Interpretation Performed at [address] [address] SURGICAL PATHOLOGY CONSULTATION Patient Name: LEXI GARCIA Med Rec: [id number] [facility] [employer] ANATOMIC PATHOLOGY [address] [place] [id number] [facility] Follow-Upon 01-25-2024 Follow-Up [id number] Nikko Garcia 1970 Date Provider Department Center 01/25/2024 SOLITARIO ADAMS [facility] Family History Problem Relation Age of Onset COPD Mother Coronary artery disease Father 56 Family Status - Relation Status Age at Mother Alive Father Level of Service:07129 [place] OFFICE/OUTPATIENT ESTABLISHED LOW MDM 20 MIN (GC) Reason for Visit and Comments: Follow-up [508902] - 3 mth follow up [facility] Abstracton 11-30-2023 Abstract [id number] Nikko Garcia 1970 Provider Department Center 11/30/2023 SVITLANA TORRES C [facility] Family History Problem Relation Age of Onset COPD Mother Coronary artery disease Father 56 Family Status - Relation Status Age at Mother Alive Father Normal [facility] 36on 11-22-2023 36 Last visit: 10/26/23 Next visit: 01/25/24 CBC: 12/12/21 BMP: 01/21/23 [facility] Refillon 11-20-2023 Refill [id number] Nikko Garcia 1970 Date Provider Department Center 11/20/2023 SOLITARIO ADAMS C [facility] Family History Problem Relation Age of Onset COPD Mother Coronary artery disease Father 56 Family Status - Relation Status Age at Mother Alive Father Reason for Visit and Comments: Med Refill [[id number]] Normal [facility] Celiac Disease Panelon 09-13 Gliadin Deam Pep IgA 1.9 U/mL Normal <7.0 [facility] Comment on above: Result Comment: CELIAC INTERPRETATION <7.0 Negative 7.0-10.0 Equivocal >10.0 Positive units: U/mL Performed By: #### C ELP #### [address] [address] [employer]edded Linux Engineer: Talib Clements MD Gliadin Deam Pep IgG <0.4 Normal <7.0 [facility] Comment on above: Result Comment: CELIAC INTERPRETATION <7.0 Negative 7.0-10.0 Equivocal >10.0 Positive units: U/mL Performed By: #### C ELP #### [address] [address] Embedded Linux Engineer: Talib Clements MD Tiss Transglutam IgA 0.4 U/mL Normal <7.0 [facility] Comment on above: Result Comment: CELIAC INTERPRETATION <7.0 Negative 7.0-10.0 Equivocal >10.0 Positive units: U/mL Performed By: #### C ELP #### [address] [address] Embedded Linux Engineer: Talib Clements MD IgA [Mass/Vol] 184 mg/dL Normal 70-400 [facility] [place] Comment on above: Performed By: #### C ELP #### [address] [address] Embedded Linux Engineer: Talib Clements MD H. pylori Antigenon 09-14-19 24 H. pylori Antigen Specimen Description .FECES Direct Exam NEGATIVE Report Status FINAL 09/14/2023 [facility] Comment on above: Performed By: #### F HPY #### [address] [address] Embedded Linux Engineer: Talib Clements MD [facility] [address] [place] [address] [place] [address] Embedded Linux Engineer: David Hough MD CBC AUTO DIFFon 10-07-2022 BASO # 0.0 103/ul Normal 0.0-0.1 [facility] Comment on above: Performed By: #### C BC #### [facility] [address] [address] [address] Donna Cantrell Basophils/100 WBC (Bld) 0.5 % Normal 0.2-2.0 [facility] Comment on above: Performed By: #### C BC #### [facility] [address] [address] [address] Donna Cantrell EO # 0.0 103/ul Normal 0.0-0.7 [facility] Comment on above: Performed By: #### C BC #### [facility] [address] [place] [address] Dr. Donna Cantrell Eosinophils/100 WBC (Bld) 0.0 % Critically low 0.9-7.0 [facility] Comment on above: Performed By: #### C BC #### [facility] [address] [address] [address] Donna Cantrell Erythrocyte distribution width (RBC) [Ratio] 13.6 % Normal 11.0-15.0 [facility] Comment on above: Performed By: #### C BC #### [facility] [address] [place] [address] Dr. Donna Cantrell Hematocrit (Bld) [Volume fraction] 42.0 % Normal 36.0-48.0 [facility] Comment on above: Performed By: #### C BC #### [facility] [address] [place] [address] Dr. Donna Cantrell Hemoglobin (Bld) [Mass/Vol] 14.4 g/dL Normal 12.0-16.0 [facility] Comment on above: Performed By: #### C BC #### [facility] [address] [address] [address] Donna Cantrell IG # 0.06 10e3/ul Critically high 0.00-0.03 [facility] Comment on above: Performed By: #### C BC #### [facility] [address] [place] [address] Dr. Donna Cantrell IG % 0.8 % Critically high 0.0-0.5 [facility] Comment on above: Performed By: #### C BC #### [facility] [address] [place] [address] Dr. Donna Cantrell LYMPH # 2.5 103/ul Normal 1.2-3.8 [facility] Comment on above: Performed By: #### C BC #### [facility] [address] [place] [address] Dr. Donna Cantrell Lymphocytes/100 WBC (Bld) 30.8 % Normal 20.5-60.0 [facility] Comment on above: Performed By: #### C BC #### [facility] [address] [place] [address] Dr. Donna Cantrell MANUAL DIFF REQ NO Normal [facility] Comment on above: Performed By: #### C BC #### [facility] [address] [place] [address] Dr. Donna Cantrell MCH (RBC) [Entitic mass] 30.3 pg Normal 26.7-34.0 [facility] Comment on above: Performed By: #### C BC #### [facility] [address] [place] [address] Dr. Donna Cantrell MCHC (RBC) [Mass/Vol] 34.3 g/dL Normal 29.9-35.2 [facility] Comment on above: Performed By: #### C BC #### [facility] [address] [place] [address] Dr. Donna Cantrell MCV (RBC) [Entitic vol] 88.2 fL Normal 81.0-99.0 [facility] Comment on above: Performed By: #### C BC #### [facility] [address] [place] [address] Dr. Donna Cantrell MONO # 0.5 103/ul Normal 0.3-0.8 [facility] Comment on above: Performed By: #### C BC #### [facility] [address] [place] [address] Dr. Donna Cantrell Monocytes/100 WBC (Bld) 6.4 % Normal 1.7-12.0 [facility] Comment on above: Performed By: #### C BC #### [facility] [address] [place] [address] Dr. Donna Cantrell NEUT # 4.9 103/ul Normal 1.4-6.5 [facility] Comment on above: Performed By: #### C BC #### [facility] [address] [place] [address] Dr. Donna Cantrell Neutrophils/100 WBC (Bld) 61.5 % Normal 43.0-75.0 [facility] Comment on above: Performed By: #### C BC #### [facility] [address] [place] [address] Dr. Donna Cantrell Platelet mean volume (Bld) [Entitic vol] 9.9 fL Normal 9.5-13.5 [facility] Comment on above: Performed By: #### C BC #### [facility] [address] [place] [address] Dr. Donna Cantrell PLT 234 103/ul Normal 150-450 [facility] Comment on above: Performed By: #### C BC #### [facility] [address] [place] [address] Dr. Donna Cantrell RBC 4.76 106/ul Normal 4.20-5.40 [facility] Comment on above: Performed By: #### C BC #### [facility] [address] [place] [address] Dr. Donna Cantrell WBC 8.0 103/ul Normal 4.0-11.0 [facility] Comment on above: Performed By: #### C BC #### [facility] [address] [place] [address] Dr. Donna Cantrell PROF CHEM 8 (BAS METB)on Anion gap [Moles/Vol] 13.9 mmol/L Normal [facility] Comment on above: Performed By: #### B MP #### [facility] [address] [place] [address] Dr. Donna Cantrell Calcium [Mass/Vol] 8.9 mg/dL Normal 8.5-10.1 [facility] Comment on above: Performed By: #### B MP #### [facility] [address] [address] [address] Donna Cantrell Chloride [Moles/Vol] 104 mmol/L Normal 98-107 [facility] Comment on above: Performed By: #### B MP #### [facility] [address] [address] [address] Donna Cantrell CO2 [Moles/Vol] 26.3 mmol/L Normal 21.0-32.0 [facility] Comment on above: Performed By: #### B MP #### [facility] [address] [place] [address] Dr. Donna Cantrell Creatinine [Mass/Vol] 0.91 mg/dL Normal 0.55-1.02 [facility] Comment on above: Performed By: #### B MP #### [facility] [address] [place] [address] Dr. Donna Cantrell EGFR-AF J[place]ICAN >60 Normal >=60 [facility] Comment on above: Performed By: #### B MP #### [facility] [address] [place] [address] Dr. Donna Cantrell EGFR-NON AF [place] >60 Normal >=60 [facility] Comment on above: Performed By: #### B MP #### [facility] [address] [address] [address] Donna Cantrell Glucose [Mass/Vol] 127 mg/dL Critically high 74-106 [facility] Comment on above: Performed By: #### B MP #### [facility] [address] [address] [address] Donna Cantrell Potassium [Moles/Vol] 4.2 mmol/L Normal 3.5-5.1 [facility] Comment on above: Performed By: #### B MP #### [facility] [address] [place] [address] Dr. Donna Cantrell Sodium [Moles/Vol] 140 mmol/L Normal 136-145 [facility] Comment on above: Performed By: #### B MP #### [facility] [address] [place] [address] Dr. Donna Cantrell Urea nitrogen [Mass/Vol] 15.0 mg/dL Normal 7.0-18.0 [facility] Comment on above: Performed By: #### B MP #### [facility] [address] [place] [address] Dr. Donna Cantrell Urea nitrogen/Creatini ne [Mass ratio] 16.5 mg/mg Normal [facility] Comment on above: Performed By: #### B MP #### [facility] [address] [place] [address] Dr. Donna Cantrell PROTIMEon 10-07-2022 INR Coag (PPP) [Relative time] {INR} Normal [facility] Comment on above: Performed By: #### B LTM #### [facility] [address] [place] [address] Dr. Donna Cantrell INR GUIDELINES SEE BELOW Normal [facility] Comment on above: Result Comment: SHIRA RED INR: 2.0 - 3.0 CONDITIONS NOT LISTED BELOW 2.5 - 3.5 FOR PROSTHETIC HEART VALVE REPLACEMENT 2.5 - 3.5 RECURRENT THROMBOSIS Performed By: #### B LTM #### [facility] [address] [place] [address] Dr. Donna Cantrell PT Coag (PPP) [Time] 9.7 s Normal 9.0-11.6 [facility] Comment on above: Performed By: #### B LTM #### [facility] [address] [place] [address] Dr. Donna Cantrell PTTon 10-07-2022 aPTT Coag (Bld) [Time] 29.6 s Normal 22.3-36.2 [facility] Comment on above: Performed By: #### B LTM #### [facility] [address] [place] [address] Dr. Donna Cantrell SCREENING MAMMOGRAM W/AJ, BILATERAL*on [...] VERY IMPORTANT TO YOUR HEALTH. THE CURRENT [place] GUIDELINES RECOMMENDS ANNUAL MAMMOGRAPHY BEGINNING AT AGE 38 THIS FACILITY USES A REMINDER SYSTEM TO ENSURE ALL PATIENTS RECEIVE REMINDER NOTIFICATIONS AT THE APPROPRIATE TIME BASED ON THE RECOMMENDATIONS OF THIS EXAM. Report reported and signed by Eder Barraza on 07/01/2022 1545 Normal [facility] Shake Table Operator XR Shoulder Complete Right*o n 07-01-2022 [...] by Eder Barraza on 07/02/2022 0746 Normal [facility] Specialist XR Spine Lumbar Complete w/F jama AND [place] 07-01-2022 XR Spine Lumbar Complete w/Flex AND [...] by Eder Barraza on 07/02/2022 0744 Normal [facility] Specialist Casey 12-17-2021 TESSAN Telephone (AMARJIT) LEXI GARCIA ([id number]) 1970 F Date Time Provider Department 12/17/21 GAYLE WASHINGTON During your visit today, we recorded the following information about you: Gayle Washington MD 12/17/2021 2:54 PM Signed Please Call patient if MyChart note not read to review results/released to My Chart if tests completed at [facility]: Mildly low vitamin D- increase over [...] PO Daily January 07, 2021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 [facility] Comment on above: Performed By: #### B MPX #### [facility] [address] [place] [address] Potassium reflex Mg 4.6 mEq/L Normal 3.4-4.9 [facility] Comment on above: Performed By: #### B MPX #### [facility] [address] [place] [address] Sodium [Moles/Vol] 133 mmol/L Low 135-144 [facility] Comment on above: Performed By: #### B MPX #### [facility] [address] [place] [address] Urea nitrogen [Mass/Vol] 16 mg/dL Normal 6-20 [facility] Comment on above: Performed By: #### B MPX #### [facility] [address] [place] [address] CBC With Platelet No Differe ntialon 06-25-2020 Erythrocyte distribution width (RBC) [Ratio] 14.3 % Normal 11.5-14.5 [facility] Comment on above: Performed By: #### C BCND #### [facility] [address] [place] [address] Hematocrit (Bld) [Volume fraction] 39.4 % Normal 37.0-47.0 [facility] Comment on above: Performed By: #### C BCND #### [facility] [address] [place] [address] Hemoglobin (Bld) [Mass/Vol] 12.9 g/dL Normal 12.0-16.0 [facility] Comment on above: Performed By: #### C BCND #### [facility] [address] [place] [address] MCH (RBC) [Entitic mass] 30.4 pg Normal 27.0-31.3 [facility] Comment on above: Performed By: #### C BCND #### [facility] [address] [place] [address] MCHC (RBC) [Mass/Vol] 32.8 % Low 33.0-37.0 [facility] Comment on above: Performed By: #### C BCND #### [facility] [address] [place] [address] MCV (RBC) [Entitic vol] 92.7 fL Normal 82.0-100.0 [facility] Comment on above: Performed By: #### C BCND #### [facility] [address] [place] [address] Platelets (Bld) [#/Vol] 213 10*3/uL Normal 130-400 [facility] Comment on above: Performed By: #### C BCND #### [facility] [address] [place] [address] RBC (Bld) [#/Vol] 4.25 10*6/uL Normal 4.20-5.40 [facility] Comment on above: Performed By: #### C BCND #### [facility] [address] [place] [address] WBC (Bld) [#/Vol] 12.0 10*3/uL Critically high 4.8-10.8 [facility] Comment on above: Performed By: #### C BCND #### [facility] [address] [place] [address] FLUORO FOR SURGICAL PROCEDUR ESon 06-25-2020 FLUORO [...] Maximiliano Rachel MD 06/26/20 Final result Normal [facility] Surgical Specimenon 06-25-20 20 Surgical Specimen [facility] [address] [id number] FINAL SURGICAL PATHOLOGY REPORT Patient Name: LEXI GARCIA Accession No: [id number] Age Sex: 1970 Location: [facility] [id number] Account No: [id number] Collected: 06/25/2020 Med Rec No: [id number] Received: 06/25/2020 Attend Phys: FEMI DUARTE Completed: [...] in one cassette after decalcification. WALTER/JOSIE CPT: 48344 X1 56070 X1 ANABELLA LEWIS M.D. 06/26/2020 Electronically signed out by Page 1 of 1 [facility] Comment on above: Performed By: #### S UR ####[facility] [facility] [phone] COVID-19, NAAon 06-20-2020 COVID-19, BELLE Not Detected Normal Not Detect [facility] Comment on above: Result Comment: This nucleic acid amplification test was developed and its performance characteristics determined by [employer]. Nucleic acid amplification tests include PCR and [...] detected) result in this assay. Performed at: [facility] [address] [facility] [place] [facility], [place] [id number] Embedded Linux Engineer: Altagracia Quiñonez MD, Phone: [phone] Performed By: #### I RCOV #### [facility] [address] [place] [address] Basic Metabolic Panelon 12-1 5-2020 Anion gap [Moles/Vol] 11 mmol/L Normal 9-15 [facility] Comment on above: Performed By: #### B MP #### [facility] [address] [place] [address] Calcium [Mass/Vol] 9.0 mg/dL Normal 8.5-9.9 [facility] Comment on above: Performed By: #### B MP #### [facility] [address] [place] [address] Chloride [Moles/Vol] 106 mmol/L Normal 95-107 [facility] Comment on above: Performed By: #### B MP #### [facility] [address] [place] [address] CO2 [Moles/Vol] 23 mmol/L Normal 20-31 [facility] Comment on above: Performed By: #### B MP #### [facility] [address] [place] [address] Creatinine [Mass/Vol] 0.76 mg/dL Normal 0.50-0.90 [facility] Comment on above: Performed By: #### B MP #### [facility] [address] [place] [address] GFR/1.73 sq M predicted among blacks MDRD (S/P/Bld) [Vol rate/Area] mL/min/{1.73_m2} Normal >60 [facility] Comment on above: Result Comment: >60 mL/min/1.73m2 EGFR, calc. for ages 18 and older using the MDRD formula (not corrected for weight), is valid for stable renal function. Performed By: #### B MP #### [facility] [address] [place] [address] GFR/1.73 sq M.predicted MDRD (S/P/Bld) [Vol rate/Area] mL/min/{1.73_m2} Normal >60 [facility] Comment on above: Result Comment: >60 mL/min/1.73m2 EGFR, calc. for ages 18 and older using the MDRD formula (not corrected for weight), is valid for stable renal function. Performed By: #### B MP #### [facility] [address] [place] [address] Glucose [Mass/Vol] 87 mg/dL Normal 70-99 [facility] Comment on above: Performed By: #### B MP #### [facility] [address] [place] [address] Potassium [Moles/Vol] 3.8 mmol/L Normal 3.4-4.9 [facility] Comment on above: Performed By: #### B MP #### [facility] [address] [place] [address] Sodium [Moles/Vol] 140 mmol/L Normal 135-144 [facility] Comment on above: Performed By: #### B MP #### [facility] [address] [place] [address] Urea nitrogen [Mass/Vol] 20 mg/dL Normal 6-20 [facility] Comment on above: Performed By: #### B MP #### [facility] [address] [place] [address] CBC With Platelet No Differe ntialon 06-18-2020 Erythrocyte distribution width (RBC) [Ratio] 14.2 % Normal 11.5-14.5 [facility] Comment on above: Performed By: #### C BCND #### [facility] [address] [place] [address] Hematocrit (Bld) [Volume fraction] 41.5 % Normal 37.0-47.0 [facility] Comment on above: Performed By: #### C BCND #### [facility] [address] [place] [address] Hemoglobin (Bld) [Mass/Vol] 14.3 g/dL Normal 12.0-16.0 [facility] Comment on above: Performed By: #### C BCND #### [facility] [address] [place] [address] MCH (RBC) [Entitic mass] 31.4 pg Critically high 27.0-31.3 [facility] Comment on above: Performed By: #### C BCND #### [facility] [address] [place] [address] MCHC (RBC) [Mass/Vol] 34.5 % Normal 33.0-37.0 [facility] Comment on above: Performed By: #### C BCND #### [facility] [address] [place] [address] MCV (RBC) [Entitic vol] 91.2 fL Normal 82.0-100.0 [facility] Comment on above: Performed By: #### C BCND #### [facility] [address] [place] [address] Platelets (Bld) [#/Vol] 241 10*3/uL Normal 130-400 [facility] Comment on above: Performed By: #### C BCND #### [facility] [address] [place] [address] RBC (Bld) [#/Vol] 4.55 10*6/uL Normal 4.20-5.40 [facility] Comment on above: Performed By: #### C BCND #### [facility] [address] [place] [address] WBC (Bld) [#/Vol] 9.7 10*3/uL Normal 4.8-10.8 [facility] Comment on above: Performed By: #### C BCND #### [facility] [address] [place] [address] COVID-19, NAAon 06-18-2020 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 Normal [facility] Comment on above: Performed By: #### I RCOV #### [facility] [address] [facility] [address] Prothrombin Timeon 0 INR Coag (PPP) [Relative time] 1.0 {INR} Normal [facility] Comment on above: Performed By: #### P T ####[facility] [facility] [phone] PT Coag (PPP) [Time] 13.1 s Normal 12.3-14.9 [facility] Comment on above: Performed By: #### P T ####[facility] [facility] [phone] Type and Screen Capture 3 sc rn cellon 06-18-2020 Type and Screen Capture 3 scrn cell PATIENT: JOSE Doss LOC: [facility] BILL# : [id number] : 1970 SEX: F ORDERED BY: TEENA Lowe ORDERED : 06/18/2020 15:07 COLLECTED: 06/18/2020 15:36 ORDER : [id number] RECEIVED : 06/18/2020 15:36 Second, confirmatory specimen needed to satisfy Group [employer] policy. TEST NAME RESULT UNITS RANGES ABN FL ST ABORH Capture O POS F Antibody 3 Cell Scrn Captu NEG F Normal [facility] Comment on above: Performed By: #### T S3C #### [facility] [address] [place] [address] XR SPINE ENTIRE (2-3 VIEWS)o n 06-18-2020 [...] Ash Horta MD 06/19/20 Final result Normal [facility] FLUORO FOR SURGICAL PROCEDUR ESon 05-09-2020 FLUORO [...] Maximiliano Rachel MD 05/09/20 Final result Normal [facility] COVID-19, NAAon 05-05-2020 COVID-19, BELLE Not Detected Normal Not Detect [facility] Comment on above: Result Comment: This nucleic acid amplification test was developed and its performance characteristics determined by [employer]. Nucleic acid amplification tests include PCR and [...] detected) result in this assay. Performed at: [facility] [address] [address] [facility], [place] [id number] Embedded Linux Engineer: Altagracia Quiñonez MD, Phone: [phone] Performed By: #### I RCOV ####[facility] [facility] [phone] Basic Metabolic Panelon 10-3 0 Anion gap [Moles/Vol] 12 mmol/L Normal 9-15 [facility] Comment on above: Performed By: #### B MP #### [facility] [address] [place] [address] Calcium [Mass/Vol] 10.5 mg/dL Critically high 8.5-9.9 [facility] Comment on above: Performed By: #### B MP #### [facility] [address] [place] [address] Chloride [Moles/Vol] 98 mmol/L Normal 95-107 [facility] Comment on above: Performed By: #### B MP #### [facility] [address] [place] [address] CO2 [Moles/Vol] 27 mmol/L Normal 20-31 [facility] Comment on above: Performed By: #### B MP #### [facility] [address] [place] [address] Creatinine [Mass/Vol] 0.82 mg/dL Normal 0.50-0.90 [facility] Comment on above: Performed By: #### B MP #### [facility] [address] [place] [address] GFR/1.73 sq M predicted among blacks MDRD (S/P/Bld) [Vol rate/Area] mL/min/{1.73_m2} Normal >60 [facility] Comment on above: Result Comment: >60 mL/min/1.73m2 EGFR, calc. for ages 18 and older using the MDRD formula (not corrected for weight), is valid for stable renal function. Performed By: #### B MP #### [facility] [address] [place] [address] GFR/1.73 sq M.predicted MDRD (S/P/Bld) [Vol rate/Area] mL/min/{1.73_m2} Normal >60 [facility] Comment on above: Result Comment: >60 mL/min/1.73m2 EGFR, calc. for ages 18 and older using the MDRD formula (not corrected for weight), is valid for stable renal function. Performed By: #### B MP #### [facility] [address] [place] [address] Glucose [Mass/Vol] 84 mg/dL Normal 70-99 [facility] Comment on above: Performed By: #### B MP #### [facility] [address] [place] [address] Potassium [Moles/Vol] 4.6 mmol/L Normal 3.4-4.9 [facility] Comment on above: Performed By: #### B MP #### [facility] [address] [place] [address] Sodium [Moles/Vol] 137 mmol/L Normal 135-144 [facility] Comment on above: Performed By: #### B MP #### [facility] [address] [place] [address] Urea nitrogen [Mass/Vol] 31 mg/dL Critically high 6-20 [facility] Comment on above: Performed By: #### B MP #### [facility] [address] [place] [address] CBC With Platelet No Differe ntialon 05-03-2020 Erythrocyte distribution width (RBC) [Ratio] 14.3 % Normal 11.5-14.5 [facility] Comment on above: Performed By: #### C BCND #### [facility] [address] [place] [address] Hematocrit (Bld) [Volume fraction] 41.3 % Normal 37.0-47.0 [facility] Comment on above: Performed By: #### C BCND #### [facility] [address] [place] [address] Hemoglobin (Bld) [Mass/Vol] 13.6 g/dL Normal 12.0-16.0 [facility] Comment on above: Performed By: #### C BCND #### [facility] [address] [place] [address] MCH (RBC) [Entitic mass] 30.7 pg Normal 27.0-31.3 [facility] Comment on above: Performed By: #### C BCND #### [facility] [address] [place] [address] MCHC (RBC) [Mass/Vol] 33.0 % Normal 33.0-37.0 [facility] Comment on above: Performed By: #### C BCND #### [facility] [address] [place] [address] MCV (RBC) [Entitic vol] 92.9 fL Normal 82.0-100.0 [facility] Comment on above: Performed By: #### C BCND #### [facility] [address] [place] [address] Platelets (Bld) [#/Vol] 241 10*3/uL Normal 130-400 [facility] Comment on above: Performed By: #### C BCND #### [facility] [address] [place] [address] RBC (Bld) [#/Vol] 4.44 10*6/uL Normal 4.20-5.40 [facility] Comment on above: Performed By: #### C BCND #### [facility] [address] [place] [address] WBC (Bld) [#/Vol] 11.0 10*3/uL Critically high 4.8-10.8 [facility] Comment on above: Performed By: #### C BCND #### [facility] [address] [place] [address] COVID-19, NAAon 05-03-2020 Source Swab Anterior nares Normal [facility] Comment on above: Performed By: #### I RCOV ####[facility] [place] [phone] Partial Thromboplastin Timeo n 05-03-2020 aPTT Coag (Bld) [Time] 31.3 s Normal 24.4-36.8 [facility] Comment on above: Performed By: #### P TT #### [facility] [address] [place] [address] Prothrombin Timeon 0 INR Coag (PPP) [Relative time] 0.9 {INR} Normal [facility] Comment on above: Performed By: #### P T #### [facility] [address] [place] [id number] PT Coag (PPP) [Time] 11.9 s Low 12.3-14.9 [facility] Comment on above: Performed By: #### P T #### [facility] [address] [place] [id number] Type and Screen Capture 3 sc rn cellon 05-03-2020 Type and Screen Capture 3 scrn cell PATIENT: JOSE Doss LOC: [facility] BILL# : [id number] : 1970 SEX: F ORDERED BY: STEPHANIE Harrison ORDERED : 05/03/2020 14:14 COLLECTED: 05/03/2020 14:14 ORDER : [id number] RECEIVED : 05/03/2020 19:43 TEST NAME RESULT UNITS RANGES ABN [place] ST [facility] Capture O POS F Antibody 3 Cell Scrn Captu NEG F Normal [facility] Comment on above: Performed By: #### T S3C #### [facility] [address] [place] [id number] Established Visit (Orthopaed ic Surgery)on 04-26-2020 Established [...] biceps. No pain with resisted elbow flexion. [employer] strength 5/5 Elbow flexion 5/5. Shoulder abduction [...] Chiara Espinosa PA-C Department of Orthopaedic Surgery [facility] Dictation performed with the use of voice recognition software. Syntax and grammatical errors may exist. Active Problems Problems Shoulder pain (719.41) (M25.519) Signatures Electronically signed by : Chiara Espinosa PA-C; Apr 26 2020 3:56PM EST (Author) Normal [employer] Initial Visit (Orthopaedic S urgery)on 04-17-2020 Initial Visit (Orthopaedic Surgery) Diagnoses/Problems Assessed Shoulder pain (719.41) (M25.519) Patient Discussion/Summary Patient has right shoulder pain of uncertain origin. Exam today is suggestive of subacromial origin of pain. MRI scan shows tendinopathy but not an obvious tear. I recommended having her MRI scans evaluated by the musculoskeletal radiologist at [facility] I will call the patient [...] her light touch sensation is grossly intact. [employer] strength is 5/5 elbow flexion 5/5 shoulder [...] Apr 17 2020 4:45PM EST (Author) Normal [facility] Vital Signs Date Time Vital Sign Value Performing Clinician Facility 11-07-2024 09:53-0400 Body height 162.6 cm Hazel Velásquez MD Work Phone: [facility] 11-07-2024 09:53-0400 Body mass index (BMI) [Ratio] 34.16 kg/m2 Hazel Velásquez MD Work Phone: [facility] 11-07-2024 09:53-0400 Body weight 90.27 kg Hazel Velásquez MD Work Phone: [facility] 11-07-2024 09:53-0400 Diastolic blood pressure 64 mm[Hg] Hazel Velásquez MD Work Phone: [facility] 11-07-2024 09:53-0400 Heart rate 91 /min Hazel Velásquez MD Work Phone: [facility] 11-07-2024 09:53-0400 SaO2% (BldA) [Mass fraction] 97 % Hazel Velásquez MD Work Phone: [facility] 11-07-2024 09:53-0400 Systolic blood pressure 118 mm[Hg] Hazel Velásquez MD Work Phone: [facility] 09-04-2024 14:03-0500 Body height 162.56 cm [facility] 09-04-2024 14:03-0500 Body mass index (BMI) [Ratio] 34.3 kg/m2 [facility] 09-04-2024 14:03-0500 Body weight 90.8 kg [facility] 08-21-2024 15:18-0500 Body height 162.6 cm John Gauthier DPM Work Phone: [facility] 08-21-2024 15:18-0500 Body mass index (BMI) [Ratio] 36.56 kg/m2 John Gauthier DPM Work Phone: [facility] 08-21-2024 15:18-0500 Body weight 96.62 kg John Gauthier DPM Work Phone: [facility] 08-08-2024 09:27-0500 Body height 162.6 cm Hazel Velásquez MD Work Phone: [facility] 08-08-2024 09:27-0500 Body mass index (BMI) [Ratio] 36.63 kg/m2 Hazel Velásquez MD Work Phone: [facility] 08-08-2024 09:27-0500 Body weight 96.8 kg Hazel Velásquez MD Work Phone: [facility] 08-08-2024 09:27-0500 Diastolic blood pressure 68 mm[Hg] Hazel Velásquez MD Work Phone: [facility] 08-08-2024 09:27-0500 Heart rate 93 /min Hazel Velásquez MD Work Phone: [facility] 08-08-2024 09:27-0500 SaO2% (BldA) [Mass fraction] 95 % Hazel Velásquez MD Work Phone: [facility] 08-08-2024 09:27-0500 Systolic blood pressure 112 mm[Hg] Hazel Velásquez MD Work Phone: [facility] 07-25-2024 10:00-0500 Body height 162.6 cm John Gauthier DPM Work Phone: [facility] 07-25-2024 10:00-0500 Body mass index (BMI) [Ratio] 37.25 kg/m2 John Gauthier DPM Work Phone: [facility] 07-25-2024 10:00-0500 Body weight 98.43 kg John Gauthier DPM Work Phone: [facility] 07-06-2024 11:23-0500 Body height 162.6 cm Hazel Velásquez MD Work Phone: [facility] 07-06-2024 11:23-0500 Body mass index (BMI) [Ratio] 37.28 kg/m2 Hazel Velásquez MD Work Phone: [facility] 07-06-2024 11:23-0500 Body weight 98.52 kg Hazel Velásquez MD Work Phone: [facility] 07-06-2024 11:23-0500 Diastolic blood pressure 82 mm[Hg] Hazel Velásquez MD Work Phone: [facility] 07-06-2024 11:23-0500 Heart rate 82 /min Hazel Velásquez MD Work Phone: [facility] 07-06-2024 11:23-0500 SaO2% (BldA) [Mass fraction] 96 % Hazel Velásquez MD Work Phone: [facility] 07-06-2024 11:23-0500 Systolic blood pressure 126 mm[Hg] Hazel Velásquez MD Work Phone: [facility] 06-09-2024 11:15-0500 Diastolic blood pressure 93 mm[Hg] Maximiliano You MD Work Phone: [facility] 06-09-2024 11:15-0500 Heart rate 90 /min Maximiliano You MD Work Phone: [facility] 06-09-2024 11:15-0500 Respiratory rate 20 /min Maximiliano You MD Work Phone: [facility] 06-09-2024 11:15-0500 SaO2% (BldA) [Mass fraction] 95 % Maximiliano You MD Work Phone: [facility] 06-09-2024 11:15-0500 Systolic blood pressure 151 mm[Hg] Maximiliano You MD Work Phone: [facility] 06-09-2024 10:45-0500 Body temperature 96.91 [degF] Maximiliano You MD Work Phone: [facility] 06-09-2024 09:48-0500 Body height 162.6 cm Maximiliano You MD Work Phone: [facility] 06-09-2024 09:48-0500 Body mass index (BMI) [Ratio] 37.25 kg/m2 Maximiliano You MD Work Phone: [facility] 06-09-2024 09:48-0500 Body weight 98.43 kg Maximiliano You MD Work Phone: [facility] 12-12-2021 10:43-0400 Body weight 97.52 kg Gayle Washington MD Work Phone: [facility] 12-12-2021 10:43-0400 Diastolic blood pressure 87 mm[Hg] Gayle Washington MD Work Phone: [facility] 12-12-2021 10:43-0400 Heart rate 88 /min Gayle Washington MD Work Phone: [facility] 12-12-2021 10:43-0400 Systolic blood pressure 125 mm[Hg] Gayle Washington MD Work Phone: [facility] 10-14-2021 10:30-0400 Diastolic blood pressure 80 mm[Hg] Emmett Brunner Other [employer] Other 10-14-2021 10:30-0400 SaO2% (BldA) [Mass fraction] 98 % Emmettarmani Brunner Other [employer] Other 10-14-2021 10:30-0400 Systolic blood pressure 130 mm[Hg] Emmett Brunner Other [employer] Other 07-01-2021 15:30-0500 Body weight 94.62 kg Letty Wesley Other [employer] Other 07-01-2021 15:30-0500 Diastolic blood pressure 78 mm[Hg] Letty Wesley Other [employer] Other 07-01-2021 15:30-0500 Respiratory rate 18 /min Letty Wesley Other [employer] Other 07-01-2021 15:30-0500 SaO2% (BldA) [Mass fraction] 98 % Letty Wesley Other [employer] Other 07-01-2021 15:30-0500 Systolic blood pressure 118 mm[Hg] Letty Wesley Other [employer] Other 06-18-2021 15:45-0500 Diastolic blood pressure 90 mm[Hg] Emmett Brunner Other [employer] Other 06-18-2021 15:45-0500 SaO2% (BldA) [Mass fraction] 97 % Emmett Brunner Other [employer] Other 06-18-2021 15:45-0500 Systolic blood pressure 122 mm[Hg] Emmett Bartonky Other [employer] Other 05-15-2021 17:30-0500 Body weight 92.53 kg Emmett Brunner Other [employer] Other 05-15-2021 17:30-0500 Diastolic blood pressure 80 mm[Hg] Emmett Kannan Other [employer] Other 05-15-2021 17:30-0500 Systolic blood pressure 130 mm[Hg] Emmett Kannan Other [employer] Other 04-02-2021 14:30-0400 Body weight 92.63 kg Emmett Brunner Other [employer] Other 04-02-2021 14:30-0400 Diastolic blood pressure 88 mm[Hg] Emmett Bartonky Other [employer] Other 04-02-2021 14:30-0400 SaO2% (BldA) [Mass fraction] 98 % Emmett Bartonky Other [employer] Other 04-02-2021 14:30-0400 Systolic blood pressure 140 mm[Hg] Emmett Kannan Other [employer] Other Encounters Encounter Date Encounter Type Care Provider Facility Start: 11-08-2024 End: 11-08-2024 ambulatory [facility] Start: 11-07-2024 End: 11-07-2024 Bamboo flowsheet Hazel Velásquez MD Work Phone: [facility] Start: 11-07-2024 End: 11-07-2024 Bamboo flowsheet Hazel Velásquez MD Work Phone: [facility] Start: 11-07-2024 End: 11-07-2024 Patient encounter procedure Hazel Velásquez MD Work Phone: [facility] Start: 11-07-2024 End: 11-07-2024 Periodic preventive med est patient 65yrs& older Hazel Velásquez MD Work Phone: [facility] Comment on above: Annual wellness visi t (Primary Dx); Nicotine abuse; Cyst, dermoid, arm, right; Type 2 diabetes mellitus without complication, without long-term current use of insulin; Nicotine dependence, cigarettes, in remission; Seasonal allergic rhinitis due to pollen; Benign essential HTN (CMS/HCC); Factor 5 Leiden mutation, heterozygous (CMS/HCC); Mixed hyperlipidemia (CMS/HCC) Start: 11-07-2024 End: 11-07-2024 ambulatory HAZEL VELÁSQUEZ Not Available Start: 10-17-2024 End: 10-17-2024 ambulatory [facility] Start: 09-27-2024 End: 09-27-2024 Bamboo flowsheet Lukas Alt RN [facility] Start: 09-27-2024 End: 09-27-2024 Bamboo flowsheet Lukas Alt RN [facility] Start: 09-27-2024 End: 09-27-2024 ambulatory LUKAS ALT Not Available Start: 09-11-2024 End: 09-11-2024 Telephone encounter Hazel Velásquez MD Work Phone: [facility] Start: 09-04-2024 End: 09-04-2024 ambulatory [facility] Work Phone: Start: 09-04-2024 End: 09-04-2024 Patient encounter procedure [facility] Work Phone: Start: 08-24-2024 End: 08-24-2024 Bamboo flowsheet Lukas Luz RN [facility] Start: 08-24-2024 End: 08-24-2024 Bamboo flowsheet Lukas Luz RN [facility] Start: 08-24-2024 End: 08-24-2024 ambulatory LUKAS LUZ Not Available Start: 08-21-2024 End: 08-21-2024 ambulatory JOHN GAUTHIER Not Available Start: 08-21-2024 End: 08-21-2024 Office outpatient visit 15 minutes John Gauthier DPM Work Phone: [facility] Comment on above: Corns and callositie s (Primary Dx); Diabetic polyneuropathy associated with type 2 diabetes mellitus (CMS/HCC); Left foot pain Start: 08-08-2024 End: 08-08-2024 Bamboo flowsheet Hazel Velásquez MD Work Phone: [facility] Start: 08-08-2024 End: 08-08-2024 Bamboo flowsheet Hazel Velásquez MD Work Phone: [facility] Start: 08-08-2024 End: 08-08-2024 Office outpatient visit 25 minutes Hazel Velásquez MD Work Phone: [facility] Comment on above: Poorly controlled ty pe 2 diabetes mellitus with neuropathy (CMS/HCC) (Primary Dx); Morbid (severe) obesity due to excess calories (CMS/HCC); Body mass index (BMI) 38.0-38.9, adult; Acute non-recurrent frontal sinusitis; Herpes infection; Benign essential HTN (CMS/HCC); Coronary artery disease involving [place] coronary artery of [place] heart with angina pectoris (CMS/HCC); Gastroesophageal reflux disease without esophagitis; Cigarette smoker; Mixed hyperlipidemia (CMS/HCC) Start: 08-08-2024 End: 08-08-2024 ambulatory HAZEL VELÁSQUEZ Not Available Start: 07-26-2024 End: 07-26-2024 Bamboo flowsheet Lukas Luz RN [facility] Start: 07-26-2024 End: 07-26-2024 Bamboo flowsheet Lukas Luz RN [facility] Start: 07-26-2024 End: 07-26-2024 ambulatory LUKAS LUZ Not Available Start: 07-25-2024 End: 07-25-2024 Bamboo flowsheet John Gauthier DPM Work Phone: [facility] Start: 07-25-2024 End: 07-25-2024 Bamboo flowsheet John S Azamher DPM Work Phone: [facility] Start: 07-25-2024 End: 07-25-2024 Office outpatient visit 15 minutes Johnjose Gauthier DPM Work Phone: [facility] Comment on above: Diabetic polyneuropa thy associated with type 2 diabetes mellitus (CMS/HCC) (Primary Dx); Onychomycosis; Onychodystrophy; Pain in both feet Start: 07-25-2024 End: 07-25-2024 ambulatory JOHN GAUTHIER Not Available Start: 07-21-2024 End: 07-25-2024 Telephone encounter Lukas uLz RN [facility] Comment on above: dsme Start: 07-06-2024 End: 07-06-2024 Bamboo flowsheet Hazel Velásquez MD Work Phone: [facility] Start: 07-06-2024 End: 07-06-2024 Bamboo flowsheet Hazel Velásquez MD Work Phone: [facility] Start: 07-06-2024 End: 07-06-2024 Office outpatient visit 25 minutes Hazel Velásquez MD Work Phone: [facility] Comment on above: Benign essential HTN (CMS/HCC) (Primary Dx); Coronary artery disease involving [place] coronary artery of [place] heart with angina pectoris (CMS/HCC); Factor 5 Leiden mutation, heterozygous (CMS/HCC); Bipolar 1 disorder (CMS/HCC); Cigarette smoker; Mixed hyperlipidemia (CMS/HCC); Type 2 diabetes mellitus without complication, without long-term current use of insulin ([facility]); Encounter for screening mammogram for malignant neoplasm of breast Start: 07-06-2024 End: 07-06-2024 ambulatory HAZEL CUTLERAN Not Available Start: 07-03-2024 End: 07-03-2024 ambulatory Rosibel Cotton MD Facility: [facility] Start: 06-09-2024 End: 06-09-2024 ambulatory MAXIMILIANO Christiansen [facility] Start: 06-09-2024 End: 06-09-2024 Subsequent hospital visit by physician Maximiliano You MD [facility] Comment on above: GERD (gastroesophage al reflux disease) Start: 06-05-2024 End: 06-05-2024 ambulatory Rosibel Cotton MD Facility: [facility] Start: 05-04-2024 End: 05-04-2024 ambulatory DALE [facility] Start: 04-10-2024 End: 04-10-2024 ambulatory Rosibel Cotton MD Facility: [facility] Start: 02-07-2024 End: 02-07-2024 ambulatory Rosibel Cotton MD Facility: [facility] Start: 02-03-2024 End: 02-03-2024 ambulatory NANCY Christiansen [facility] Start: 01-25-2024 End: 01-25-2024 ambulatory SOLITARIO GARCÍA [facility] Start: 01-24-2024 End: 01-24-2024 ambulatory Rosibel Cotton MD Facility: [facility] Start: 01-12-2024 End: 01-12-2024 ambulatory NICOLE Christiansen [facility] Start: 01-12-2024 Encounter for other preprocedural examination MAXIMILIANO [facility] Start: 12-20-2023 End: 12-20-2023 ambulatory Rosibel Cotton MD Facility:[facility] Start: 10-25-2023 End: 10-25-2023 ambulatory Rosibel Cotton MD Facility:[facility] Start: 09-13-2023 End: 09-13-2023 Subsequent hospital visit by physician [facility] Comment on above: Flatulence, eructati on and gas pain Start: 09-13-2023 End: 09-13-2023 ambulatory NICOLE Katrina [facility] Start: 09-13-2023 Encounter for other preprocedural examination [facility] Start: 04-07-2023 ambulatory Gayle Washington MD Work Phone: Rheumatology Comment on above: Fax info Start: 10-16-2022 Encounter for preprocedural cardiovascular examination DR ULISES TIM [facility] Start: 10-16-2022 Encounter for preprocedural laboratory examination DR ULISES TIM [facility] Start: 10-13-2022 End: 10-13-[address] [...] Start: 12-12-2021 End: 12-13-2021 ambulatory KIMBERLEY GIBBONS [facility] Other Start: 12-12-2021 End: 12-12-2021 Patient encounter [...] 10-29-2021 Chart Update Cristobal miller Work Phone: [id number] Work Phone: Start: 10-14-2021 End: 10-14-2021 ambulatory Emmett Brunner Other [employer] Other Start: 10-14-2021 Patient encounter procedure Emmett Brunner [facility] Start: 09-23-2021 End: 09-23-2021 ambulatory Emmett Brunner Other [employer] Other Start: 09-23-2021 Telephone encounter Emmett Brunner [facility] Start: 07-01-2021 End: 07-01-2021 ambulatory Letty Olson Other [employer] Other Start: 07-01-2021 Office outpatient vi sit 25 minutes Lettyra Chiangz [facility] Start: 06-26-2021 (Procedure) Short Emmett Brunner [facility] Start: 06-26-2021 End: 06-26-2021 ambulatory Emmett Brunner Other [employer] Other Start: 06-18-2021 End: 06-18-2021 ambulatory Emmett Brunner Other [employer] Other Start: 06-18-2021 Office outpatient vi sit 25 minutes Emmett Kannan [facility] Start: 06-18-2021 Telephone encounter Emmett Brunner [facility] Start: 06-04-2021 End: 06-04-2021 Subsequent hospital visit by physician Crhistina [facility] Comment on above: Chronic hip pain, bi lateral [M25.551, M25.552, G89.29] Start: 05-21-2021 (Procedure) Short Emmett Brunner [facility] Start: 05-21-2021 End: 05-21-2021 ambulatory Emmett Brunner Other [facility] Other Start: 05-15-2021 End: 05-15-2021 ambulatory Emmett Brunner Other [facility] Other Start: 05-15-2021 Office outpatient vi sit 25 minutes Emmett Kannan [facility] Start: 04-30-2021 (Procedure) Short Emmett Brunner [facility] Start: 04-16-2021 (Procedure) Short Emmett Kannan [facility] Start: 04-02-2021 Office outpatient vi sit 25 minutes Emmett Kannan [facility] Start: 02-21-2021 Office outpatient vi sit 15 minutes Cristobal Tomas Work Phone: [id number] Work Phone: Start: 06-25-2020 End: 06-27-2020 Evaluation and management of inpatient FEMI López [facility] Start: 06-25-2020 End: 06-28-2020 Patient encounter procedure CRISTOBAL [facility] [place] Start: 06-18-2020 End: 06-23-2020 Patient encounter procedure CRISTOBAL [facility] [place] Start: 05-09-2020 End: 05-09-2020 Patient encounter procedure FEMI López [facility] Procedures Date Procedure Procedure Detail Performing Clinician Start: 11-08-2024 Hemoglobin glycosylated a1c Hazel hernandez MD Work Phone: Start: 06-09-2024 Esophagogastroduodenoscopy Maximiliano salinas MD Work Phone: Start: 09-13-2023 Assay of gammaglobulin iga igd igg igm each Nicole Telles [employer]IST - INSURANCE ATTORNEY Work Phone: Start: 02-11-2023 H/O: hysterectomy S/P hysterectomy Hazel Velásquez MD Work Phone: Start: 07-01-2022 Mammography Hazel Velásquez MD Work Phone: Start: 06-04-2021 Radex hips bilateral with pelvis minimum 5 views Gayle Washington MD Work Phone: Start: 06-17-2020 Mammography Gayle Washington MD Work Phone: Start: 06-09-2018 Lipid 1996 panel - Serum or Plasma Patricia Washington MD Work Phone: Plan of Treatment Date Care Activity Detail Author Start: 03-16-2026 Screening for malignant neoplasm of colon [facility] Start: 11-07-2025 Medicare Annual Wellness (AWV) Medicare Annual Wellness (AWV ) [facility] Start: 08-08-2025 Urine screening for protein Diabetes: Urine Protein Screening [facility] Start: 03-05-2025 Influenza vaccination Influenza Vaccine (Season Ended) [facility] Start: 02-08-2025 Hemoglobin A1c measurement Diabetes: Hemoglobin A1C [facility] Start: 02-08-2025 End: 02-08-2025 Patient encounter procedure 02/08/2025 10:00 AM EDT Of fice Visit [facility] [address] [place] [phone] Hazel Velásquez MD [address] [place] [address] [facility] Start: 12-12-2024 DIABETES SCREEN DIABETES SCREEN [facility] Start: 12-12-2024 Diabetes Screening Diabetes Screening [facility] Start: 11-07-2024 End: 11-07-2025 CT Chest for screening WO contrast CT lung screening low dose Imaging Routine Nicotine abuse Nicotine dependence, cigarettes, in remission Expected: 11/07/2024, Expires: 11/07/2025 [facility] Comment on above: Expected: 11/07/2024, Expires: Start: 11-07-2024 End: 11-07-2025 US Soft Tissue Palpable Mass US Soft Tissue Palpable M ass Imaging Routine Cyst, dermoid, arm, right Expected: 11/07/2024, Expires: 11/07/2025 [facility] Work Phone: Comment on above: Expected: 11/07/2024, Expires: Start: 11-07-2024 End: 11-07-2024 [facility] Comment on above: Arrived Start: 11-01-2024 Hemoglobin A1c measurement Diabetes: Hemoglobin A1C [facility] Start: 10-24-2024 End: 10-24-2024 Patient encounter procedure 10/24/2024 10:15 AM EDT Procedure Visit [facility] [address] [place] [phone] John Gauthier, LUCRETIAM [address] [place] [address] [facility] Start: 09-27-2024 End: 09-27-2024 Clinical Support 09/27/2024 10:30 AM EDT Clinical Support [facility] [address] [facility] [phone] Lukas Luz RN Arrived [facility] Comment on above: Arrived Start: 09-26-2024 End: 09-26-2024 Clinical Support 09/26/2024 11:30 AM EDT Clinical Support [facility] [address] [place] [phone] Lukas Luz RN [facility] Start: 08-24-2024 End: 08-24-2024 Clinical Support [facility] Comment on above: Arrived Start: 08-17-2024 Hemoglobin A1c measurement Diabetes: Hemoglobin A1C [facility] Start: 08-08-2024 End: 08-08-2025 Microalbumin/Creatinine panel in random Urine Microalbumin / creatinine, urine ratio Lab Routine Poorly controlled type 2 diabetes mellitus with neuropathy (CMS/HCC) Expected: 08/08/2024 (Approximate), Expires: 08/08/2025 [facility] Work Phone: Comment on above: Expected: 08/08/2024 (Approximate), Expi res: 08/08/2025 Start: 08-08-2024 End: 08-08-2024 Patient encounter procedure [facility] Comment on above: Arrived Start: 07-26-2024 End: 07-26-2024 Clinical Support [facility] Comment on above: Type 2 diabetes mellitus without complic ation, without long-term current use of insulin (CMS/HCC) (Primary Dx); Bipolar 1 disorder (CMS/HCC) Start: 07-25-2024 End: 07-25-2024 Patient encounter procedure [facility] Comment on above: Arrived Start: 07-06-2024 End: 09-03-2025 DBT Breast - bilateral screening Bilateral screening mammogram with tomosynthesis Imaging Routine Encounter for screening mammogram for malignant neoplasm of breast Expected: 07/06/2024, Expires: 09/03/2025 [facility] Work Phone: Comment on above: Expected: 07/06/2024, Expires: Start: 07-06-2024 End: 07-06-2024 Patient encounter procedure 07/06/2024 11:30 AM EST Of fice Visit [facility] [address] [facility] [address] [place] [phone] Hazel Velásquez MD [address] [facility] [address] [place], [place] [id number] Arrived [facility] Comment on above: Arrived Start: 07-01-2024 Screening for malignant neoplasm of breast Breast cancer screen [facility] Start: 06-09-2024 End: 06-09-2024 Esophagogastroduodenoscopy transoral diagnostic ESOPHAGOGASTRODUODENOSCOPY GERD (gastroesophageal reflux disease) 06/09/2024 10:28 AM EST [facility] Start: 03-05-2024 COVID-19 Vaccine ( season) COVID-19 Vaccine ( season) [facility] Start: 03-05-2024 Influenza vaccination Influenza Vaccine (#1) [facility] Start: 02-12-2024 Medicare Annual Wellness (AWV) Medicare Annual Wellness (AWV ) [facility] Start: 02-03-2024 Influenza vaccination Flu vaccine (#1) [facility] Start: 02-03-2024 End: 02-03-2024 Admission to same day surgery center 02/03/2024 8:45 AM EDT - 02/03/2024 9:05 AM EDT Surgery [facility] [address] [place] [address] Nancy Ludwig MD [address] [place] [address] ESOPHAGOGASTRODUODENOSCOPY [facility] Comment on above: ESOPHAGOGASTRODUODENOSCOPY Start: 02-03-2024 End: 02-03-2024 Esophagogastroduodenoscopy transoral diagnostic ESOPHAGOGASTRODUODENOSCOPY Chronic GERD 02/03/2024 8:45 AM EDT [facility] Start: 02-03-2024 Subsequent hospital visit by physician 02/03/2024 8:45 AM EDT Hospital Encounter [facility] [address] [place], [place] [phone] Nancy Ludwig MD [address] [place] [address] [facility] Start: 07-05-2023 Annual Wellness Visit (Medicare Advantage) Annual Wellness Visit (Medicare Advantage) [facility] [facility] [employer] Start: 07-01-2023 Screening for malignant neoplasm of breast Mammogram [facility] Start: 06-09-2023 Lipid 1996 panel - Serum or Plasma Lipid Screening [facility] Start: 06-09-2023 LIPID SCREEN LIPID SCREEN [facility] Start: 03-05-2023 COVID-19 Vaccine ( season) COVID-19 Vaccine () [facility] Start: 03-05-2023 Influenza vaccination [facility] Start: 02-02-2023 Influenza vaccination Flu vaccine (#1) [email or web address] Start: 07-05-2022 DEPRESSION ASSESSMENT DEPRESSION ASSESSMENT [facility] Start: 03-19-2022 End: 12-17-2022 25-hydroxyvitamin D3 [Mass/volume] in Serum or Plasma VITAMIN D 25 HYDROXY Lab Routine Vitamin D deficiency Expected: 03/19/2022 (Approximate), Expires: 12/17/2022 [facility] Work Phone: Comment on above: Expected: 03/19/2022 (Approximate), Expi res: 12/17/2022 Start: 03-05-2022 Influenza vaccination [facility] Start: 08-21-2021 COVID-19 VACCINE (2 - Booster for Barbara series) COVID-19 VACCINE (2 - Booster for Barbara series) [facility] Start: 07-05-2021 DEPRESSION ASSESSMENT DEPRESSION ASSESSMENT [facility] Start: 06-17-2021 Mammography [facility] Start: 2018 Shingles vaccine (1 of 2) Shingles vaccine (1 of 2) [facility] [employer] [facility] Start: 2018 SHINGRIX VACCINE (1 of 2) SHINGRIX VACCINE (1 of 2) [facility] Start: 2013 COLOGUARD (FIT-DNA) COLOGUARD (FIT-DNA) [facility] Start: 2013 Colonoscopy COLONOSCOPY [facility] Start: 2013 COLORECTAL CANCER SCREENING COLORECTAL CANCER SCREENING [facility] Start: [address] COLONOGRAPHY [facility] Start: 2013 FECAL OCCULT BLOOD FECAL OCCULT BLOOD [facility] Start: 2013 Screening for malignant neoplasm of colon [facility] Start: 2013 SIGMOIDOSCOPY SIGMOIDOSCOPY [facility] Start: 2003 Diabetes screen Diabetes screen [facility] Start: 1998 HPV TESTING HPV TESTING [facility] Start: 1989 PAP TESTING PAP TESTING [facility] Start: 1987 DTaP/Tdap/Td vaccine (1 - Tdap) DTaP/Tdap/Td vaccine (1 - Tdap) [facility] Start: 1987 Hepatitis B vaccine (1 of 3 - 19+ 3-dose series) Hepatitis B vaccine (1 of 3 - + 3-dose series) [facility] Start: 1987 Urine microalbumin profile [facility] Start: 1987 Urine screening for protein Diabetes: Urine Protein Screening [facility] Start: 1986 Hepatitis C screening Hepatitis C screen [facility] Start: 1986 HIV SCREENING HIV SCREENING [facility] Start: 1983 HIV screening HIV screen [facility] Start: 1980 Adult depression screening assessment DEPRESSION SCREENING [facility] Start: 1980 Depression Screen Depression Screen [facility] Start: 1978 Glaucoma screening Diabetes: Retinopathy Screening [facility] Start: 1978 Lipid panel Lipids [facility] Start: 1974 PNEUMOCOCCAL (1 - PCV) PNEUMOCOCCAL (1 - PCV) [facility] Start: 1974 Pneumococcal 0-64 years Vaccine (1 - PCV) Pneumococcal 0-64 years Vaccine (1 - PCV) [facility] Start: 1974 Pneumococcal 0-64 years Vaccine (1 of 2 - PCV) Pneumococcal 0-64 years Vaccine (1 of 2 - PCV) [facility] Start: 1974 Pneumococcal vaccination Pneumococcal Vaccine (1 - PCV) [facility] Start: 1968 HEPATITIS B (1 of 3 - 3-dose series) HEPATITIS B (1 of 3 - 3-dose series) [facility] Start: 1968 Hepatitis B Vaccine (1 of 3 - 3-dose series) Hepatitis B Vaccine (1 of 3 - 3-dose series) [facility] Start: 1968 Screening for malignant neoplasm of colon [facility] Celiac Disease Panel Celiac Dise ase Panel Lab Routine Flatulence, eructation and gas pain 09/13/2023 4:20 PM EDT [employer] End: 09-13-2023 H. pylori antigen [employer] Comment on above: Once for 1 Occurrences starting 09/13/19 until 09/13/2023 End: 09-13-2023 H. Pylori Antigen, Stool H. Pylori Antigen, Stool Lab Routine Flatulence, eructation and gas pain 1 Occurrences starting 09/13/2023 until 09/13/2023 [employer] Work Phone: Comment on above: 1 Occurrences starting 09/13/2023 until 09/13/2023 End: 06-09-2024 INITIATE PACU OXYGEN THERAPY PROTOCOL Initiate PACU Oxygen Therapy Protocol Respiratory Care Routine Continuous until discontinued starting 06/09/2024 [employer] Comment on above: Continuous until discontinued starting 1 08/10/2023 Pathology study Surgical Patholo gy Lab Routine GERD (gastroesophageal reflux disease) Release Upon Ordering for 1 Occurrences starting 06/09/2024 [employer] Comment on above: Release Upon Ordering for 1 Occurrences starting 06/09/2024 Immunizations Immunization Date Immunization Notes Care Provider Sabina brandon 04-06-2019 influenza, injectabl e, quadrivalent, preservative free Cristobal Tomas Work Phone: [id number] Work Phone: 04-06-2019 influenza virus vaccine, unspecified formulation Gayle Washington MD Work Phone: [facility] 05-15-2016 seasonal influenza, intradermal, preservative free Cristobal Tomas Work Phone: [employer] Payers Date Payer Category Payer Medicare [id number] 2024 Medicare (Managed Care) [employer] [id number] 2024 Unknown [id number] 2024 Medicare [id number] .[id number] 2021 Unknown 2021 Unknown ARNOLD ARNOLD [place] X [id number] 2021-Present [phone] [address] [address] [place] [address] O [id number] .[id number] 2020 Private Health Insurance [id number]. 3 .[id number] 2018 Unknown [id number] 2.16.840.1.342287.19 2017 Unknown [id number] 1968 Unknown [id number] 2.16840.1.618161.3.579.2.182 1968 Unknown [id number] 2.16840.1.714238.3.579.2.182 1968 Unknown [id number] 2.16840.1.928476.3.579.2.182 1968 Unknown [id number] 2.16.840.1.050940.3.579.2.182 1968 Unknown [id number] 2.16840.1.866149.3.579.2.182 1968 Unknown [id number] 2.16.840.1.250832.3.579.2.593 1968 Unknown [id number] 2.16.840.1.295838.3.579.2.593 1968 Unknown [id number] 2.16.840.1.480966.3.579.2.593 1968 Unknown [id number] 2.16.840.1.398098.3.579.2.593 1968 Unknown [id number] 2.16.840.1.254251.3.579.2.593 1968 Unknown [id number] 2.16.840.1.946095.3.579.2.593 1968 Unknown [id number] 2.16.840.1.131355.3.579.2.593 1968 Unknown [id number] 2.16.840.1.188867.3.579.2.593 1968 Unknown [id number] 2.16.840.1.701234.3.579.2.593 1968 Unknown [id number] 2.16.840.1.815502.3.579.2.593 1968 Unknown [id number] 2.16.840.1.110897.3.579.2.593 1968 Unknown [id number] 2.16.840.1.823291.3.579.2.173 1968 Unknown [id number] 2.16.840.1.964889.3.579.2.173 1968 Unknown [id number] 2.16.840.1.064640.3.579.2.173 1968 Unknown [id number] 2.16.840.1.489919.3.579.2.173 1968 Unknown [id number] 2.16.840.1.440522.3.579.2.173 1968 Unknown [id number] 2.16.840.1.249307.3.579.2.196 1968 Unknown [id number] 2.16.840.1.396035.3.579.2.196 1968 Unknown [id number] 2.16.840.1.905344.3.579.2.196 1968 Unknown [id number] 2.16.840.1.663887.3.579.2.196 1968 Unknown [id number] 2.16.840.1.996832.3.579.2.196 1968 Unknown [id number] 2.16.840.1.139769.3.579.2.196 1968 Unknown [id number] 2.16.840.1.324665.3.579.2.196 1968 Unknown [id number] 2.16.840.1.163558.3.579.2.125 9 1968 Unknown [id number] 2.16.840.1.918559.3.579.2.125 9 1968 Unknown [id number] 2.16.840.1.420143.3.579.2.125 9 1968 Unknown [id number] 2.16.840.1.370719.3.579.2.125 9 1968 Unknown [id number] 2.16.840.1.588758.3.579.2.125 9 1968 Unknown [id number] 2.16.840.1.868746.3.579.2.125 9 1968 Unknown [id number] 2.16.840.1.770066.3.579.2.125 9 1968 Unknown [id number] 2.16.840.1.670467.3.579.2.125 9 Unknown Regular Auto/Medical [id number] Unknown Regular Auto/Liability [id number] Social History Date Type Detail Facility Start: 07-05-1984 End: 07-06-2024 Tobacco smoking status NHIS Smokes tobacco daily [facility] Start: 07-05-1984 History of tobacco use Cigarette Smoker [facility] Start: 06-04-2021 End: 11-07-2024 Cigarettes smoked current (pack per day) - Reported 1 [facility] Start: 06-04-2021 End: 09-08-2023 Tobacco use and exposure Smokeless tobacco non-user [facility] Start: 12-12-2021 End: 06-09-2024 Alcohol intake Current drinker of alcohol (finding) [facility] Start: 06-04-2021 History SDOH Alcohol Comment rarely. [facility] Start: 1970 Sex Assigned At Not on file [facility] Start: 11-29-2021 End: 12-09-2021 Exposure to SARS-CoV-2 (event) Unable to assess [facility] Start: 06-05-2021 End: 11-07-2024 Sex Assigned At [employer] [facility] Start: 05-05-2021 End: 06-04-2021 Exposure to SARS-CoV-2 (event) Not sure [facility] National Score (1-100), lower number is lower risk 95 [facility] (I/We) worried whether (my/our) food would run out before (I/we) got money to buy more. Never true [employer] Start: 09-08-2023 Tobacco Comment intermittently since 15 [employer] Start: 05-03-2020 Alcohol Comment hardly ever [employer] Start: 10-29-2023 End: 11-07-2024 Alcoholic beverage intake Ex-drinker (finding) [facility] How often to you hav e a drink containing alcohol? 2-4 times a month [facility] How many standard drinks containing alcohol do you have on a typical day? 3 or 4 [facility] How often do you hav e 6 or more drinks on 1 occasion? Less than monthly [facility] Start: 07-18-2023 Education 16 [facility] Start: 10-28-2023 Alcohol Comment Caffine: 2 cups daily [facility] Start: 1970 Sex assigned at Female [facility] Start: 09-16-2022 Gender identity Identifies as female gender (finding) [facility] Start: 09-04-2024 End: 11-07-2024 Tobacco smoking status NHIS Ex-smoker (finding) [facility] Start: 09-04-2024 Sex Female (finding) [facility] Start: 07-05-1984 History of tobacco use Current smoker [facility] Medical Equipment Procedure Code Equipment Code Equipment Original Text Equipment Identifier Dates Impl Alena Spine R michael Ti35 Mm 55 Mm [id number] Start: 06-25-2020 Graft Spnl [id number] Corticocancellous Lord [place]ad - [id number] Start: 05-09-2020 Plate Spnl L28mm Antr Cerv 1 Lev [employer]ational [place] Acp [id number] Start: 05-09-2020 Screw Spnl L13mm Dia4mm Ant Cerv [facility] Ang Compr [place] Acp [id number] Start: 05-09-2020 Connector Spnl C rss Lo Prof Adj Reline-O 5.5 X 45-65 Mm [id number] Start: 06-25-2020 Screw Spnl Dia5. 5mm Opn Tulip Roselyn Reline [id number] Start: 06-25-2020 Graft Bne Sub 30 cc 1.7-10mm Canc Chip Morselized Frz Dry - [id number] Start: 06-25-2020 Graft Bne Sub 5m l Mtrx Cellular Osteocel + - [id number] Start: 06-25-2020 Spacer Spnl L W1 [id number] 4deg Post Lum Intbdy Fus Lord [id number] Start: 06-25-2020 Screw Spnl L50mm Dia7.5mm Post Thoracolumbosacral Polyax 2s [id number] Start: 06-25-2020 Screw Spnl L55mm Od6mm 2s Polyax Reline O [id number] Start: 06-25-2020 Alena Spnl Lordtc 5.5x40 Mm Ti Reline-O [id number] Start: 06-25-2020 Clip Endoscp 235 cm Resol 360 Order Uom Is Each - [id number] Start: 02-03-2024 Functional Status Date Assessment Result Facility 11-07-2024 Patient Health [facility] ionnaire 2 item (PHQ-2) [Reported] [facility] 11-07-2024 How difficult have t hese problems made it for you to do your work, take care of things at home, or get along with other people? Not difficult at all 11/07/2024 10:00 AM EDT Lesley Telles MA Not difficult at all [facility] Clinical Notes 04-02-2021 to 11-08-2024 Hazel Velásquez MD - 11/07/2024 10:00 AM EDTTelephone Encounter - Shivani Singh - 09/11/2024 3:48 PM EDTTelephone Encounter - Shivani Singh - 09/11/2024 3:48 PM EDTDischarge Instructions Note Date & Type Note Facility 11-08-2024 Note Cardiovascular Medic [facility] SUBJECTIVE Chief Complaint Patient presents with Palpitations Lexi Garcia is a 54 y.o. female here for follow-up. HPI PMHx: HTN, depression, anxiety, tachycardia, factor V, pre-DM, fibromyalgia 11/08/2024 She denies any significant changes since last seen. She notes she didn't have significant sx's when she wore the holter monitor. She still gets occasional palpitations when at rest with accompanied dizziness, SOB, chest tightness. At times her chest will ache when she takes a deep breath. She recently obtained a smart watch which notes her HR's have been elevated. 10/17/2024 Patient is here for her 6 moth follow up. Patient states she if feeling a little concerned due to numbness and tingling in her hands and toes, she get chest tightness on her left side along with dizziness lightheaded, SOB ,confusion, she can feel her heart race and lower when she is going through one of these episodes. Per patient she stopped smoking 2 months ago, she still occasional vapes. She has been having chest tightness left side more often. This is also causes her to feel SOB. But if she takes a deep breath the chest pain worsens. Occurs at rest or with exertion. Occurs multiple times day. She often has accompanied palpitations, dizziness/LH. She can have palpitations occurring at random times throughout the day and doesn't have accompanied sx's. Palpitations feels like a racing, fluttering feeling. Sometimes a skipped beat. She has HOFFMAN. This has been ongoing. 6 weeks ago she started exercise program at the [facility]. This has helped her sx's some. But she finds that she sometimes cannot exert herself any further while exercising. She has had near syncope but never passed out. She c/o leg tingling at the end of the day. 11/02/2023 She has been waking up feeling like [...] Unstable angina (CMS/HCC) Coronary artery disease involving [place] coronary artery of [place] heart without angina pectoris Degenerative joint disease [...] protein (CRP) Factor 5 Leiden mutation, heterozygous Full thickness rotator cuff tear Herpes infection [...] Tongue ulcer Uterovaginal prolapse Vitamin D deficiency History of Sloan's esophagus History of gastric ulcer Past Medical History: Diagnosis Date ACL tear R knee, s/p repair in 2019 Anxiety Carpal tunnel syndrome, bilateral s/p B/L release in 2017 Chronic low back pain herniated disc s/p L5 lumbar disc surgery in 2019 Chronic neck pain s/p C6-7 fusion, s/p C6-7 plate removal then C5 and C6 plates in 2019 Chronic pain disorder Clotting disorder Depression Factor V Leiden Fibromyalgia, primary GERD (gastroesophageal reflux disease) Hyperlipidemia Hypertension Osteoarthritis Osteopenia Prediabetes Retinal hole of right eye Rotator cuff syndrome R shoulder, s/p repair with screw placed in 2018 Tobacco dependence in remission Vitamin D defi (more content not included)... [facility] 11-08-2024 Note Patient here for res ults from 7 monitor. Patient states she still has the ups and downs of her heart. Patient states when her heart races or slows down she becomes symptomatic, with symptoms of dizziness and lightheaded. Patient states her sister was recently diagnosed with POTS. Review of Systems Cardiovascular: Positive for irregular heartbeat. Neurological: Positive for dizziness and light-headedness. [facility] 11-07-2024 History of Present illness Narrative Images from the original note were not included. Lexi Garcia is a 54 y.o. female presents with chief complaint of mwv patient has been struggling with her STM the past couple of years. Family eye care in [place]. HPI: Over the past 2 weeks, how often have you been bothered by any of the following problems? Little interest or pleasure in doing things: Not at all Feeling down, depressed, or hopeless: Not at all Patient Health Questionnaire-2 Score: 0 Over the past 2 weeks, how often have you been bothered by any of the following problems? Trouble falling or staying asleep, or sleeping too much: Not at all Feeling tired or having little energy: Not at all Poor appetite or overeating: Not at all Feeling bad about yourself - or that you are a failure or have let yourself or your family down: Not at all Trouble concentrating on things, such as reading the newspaper or watching television: Nearly every day Moving or speaking so slowly that other people could have noticed? Or the opposite - being so fidgety or restless that you have been moving around a lot more than usual.: Nearly every day Thoughts that you would be better off or hurting yourself in some way: Not at all Patient Health Questionnaire-9 Score: 6 Springer Fall Risk History of Falling, Immediate or Within 3 Months: No Secondary Diagnosis: No Ambulatory Aid: Walks without aid/bedrest/nurse assist Intravenous Therapy/Heparin Lock: No Gait/Transferring: Normal/bedrest/immobile Mental Status: Oriented to own ability Springer Fall Risk Score: 0 Health Risk Assessment Form Do you need help eating, bathing, using the toilet, dressing, or getting around your home?: No Can you prepare your own meals?: Yes Can you do your own housework without help?: Yes Can you shop for groceries or clothes without help?: Yes Do you exercise for about 20 minutes 3 or more days a week?: Yes How confident are you that you can control and manage most of your health problems?: Very confident Can you mange your money, credit cards and accounts, pay bills and taxes?: Yes Vision Screening: Yes, patient sees regular insurance marketing specialist/senior manager asset protection Hearing Screening: Not done Cognitive Screening Self Assessment: No overt cognitive deficiency is apparent by direct observation Three Word Registration: Percy Aguilera Picture Clock Drawing: Normal Clock - 2 Three Word Recall: 1/3 words correct - 1 Total Score (0-5 Points): 3 Pain Assessment Pain Score: 5 - Moderate pain History of Present Illness The patient presents for a Medicare wellness visit and evaluation of diabetes, sinus issues, and a lump. She has been experiencing a recurrence of sinus issues, characterized by a sensation of fullness in her right ear, which escalates to pain when the ear becomes significantly full. She was started on some medications for her sinuses at her last visit. She has been grappling with memory issues over the past few years, with a particular difficulty in recalling recent events, although she retains the ability to remember events from a decade ago. She has a small lump, for which she was previously prescribed a topical lotion. She reports that the lump appears to be increasing in size. She has been making commendable efforts to manage her diabetes, as evidenced by a significant reduction in her A1c levels from 9.3 to 6.1 over the past 3 months. Despite this progress, she acknowledges a recent lapse in her regimen due to her daughter's return to work. She had initiated water aerobics at the , which she found beneficial, but has since discontinued due to time constraints. She is currently on Ozempic, which she tolerates well. She has had a recent eye examination at [facility], where she was informed that her eyes are in good condition and that her diabetes has not caused any ocular damage. She was also advised that she could continue wearing glasses. She has not received an influenza vaccine in over 5 years and has never received a pneumonia vaccine. She is considering receiving the pneumonia vaccine today. She underwent Cologuard testing in 2022 and is due for a mammogram. She quit smoking cigarettes 3 months ago after a 40-year habit, during which she smoked between half a pack to a pack a day. Her blood pressure is well-controlled with amlodipine. She is on atorvastatin and Zetia for cholesterol management. She is on Neurontin and Lamictal. She takes Seroquel at bedtime. SOCIAL HISTORY The patient quit smoking cigarettes 3 months ago after smoking since 1984, anywhere from half a pack to a pack a day. SUBJECTIVE: MEDICATIONS: Current Outpatient Medications Medication Instructions acetaminophen (TYLENOL) 650 mg, Every 6 hours PRN acyclovir (Zovirax) 400 MG tablet amLODIPine (NORVASC) 10 mg, Oral, Daily ammonium lactate (Amlactin) 12 % cream Topical, Daily apixaban (ELIQUIS) 2.5 mg, 2 times daily atorvastatin (LIPITOR) 80 mg, Daily RT cholecalciferol (Vitamin D-3) 50 MCG (1999) capsule Take by mouth. clobetasol (Temovate) 0.05 % cream clonazePAM (KLONOPIN) 0.5 mg, 2 times daily PRN cyclobenzaprine (Flexeril) 10 MG tablet desvenlafaxine (Pristiq) 100 MG 24 hr tablet ezetimibe (ZETIA) 10 mg, Daily RT gabapentin (NEURONTIN) 300 mg, 3 times daily lamoTRIgine (LAMICTAL) 300 mg, Every 24 hours metFORMIN (Glucophage) 500 MG tablet TAKE 1 TABLET BY MOUTH EVERY MORNING AND TAKE 1 TABLET BY MOUTH EVERY EVENING WITH A MEAL metoprolol succinate XL (TOPROL-XL) 25 mg, Daily RT multivitamin with minerals (Cerovite) 18-400 mg-mcg tablet tablet 1 tablet, Daily nicotine (Nicoderm, Step 1) 21 MG/24HR patch 1 patch, Transdermal, Every 24 hours omeprazole (PRILOSEC) 20 mg, Oral, Daily before breakfast Ozempic (0.25 or 0.5 MG/DOSE) 0.5 mg, Subcutaneous, Weekly QUEtiapine (SEROquel) 400 MG tablet I have reviewed and reconciled the history and medication list with the patient today. REVIEW OF SYMPTOMS: Review of Systems OBJECTIVE: Visit Vitals BP 118/64 Pulse 91 Ht 5' 4 Wt 199 lb SpO2 97% BMI 34.16 kg/m Smoking Status Former BSA 2.02 m Physical Exam Vitals and nursing note reviewed. Constitutional: Appearance: Normal appearance. HENT: Head: Normocephalic and atraumatic. Cardiovascular: Rate and Rhythm: Normal rate and regular rhythm. Pulses: Normal pulses. Heart sounds: Normal heart sounds. Pulmonary: Effort: Pulmonary effort is normal. Breath sounds: Normal breath sounds. Musculoskeletal: Cervical back: Normal range of motion and neck supple. Skin: General: Skin is warm and dry. Neurological: General: No focal deficit present. Mental Status: She is alert. Psychiatric: Mood and Affect: Mood normal. ASSESSMENT AND PLAN: Assessment & Plan 1. Diabetes mellitus. - Her A1c has improved significantly from 9.3 to 6.1, indicating better blood sugar control. - She is tolerating Ozempic well. - She is advised to continue her current medication regimen and maintain regular exercise, [facility] - She is also encouraged to schedule another visit with Lukas for further support. 2. Sinusitis. - She reports recurrent sinus issues with ear fullness and pain, particularly in the right ear. - The infection appears to have cleared, but underlying allergies may be causing symptoms. - Flonase nasal spray is recommended, with one squirt in each nostril nightly. - If symptoms persist, she should notify the clinic. 3. Hypertension. - Her blood pressure is well-controlled on amlodipine. - Blood pressure readings are within the target range. - Continued monitoring of blood pressure is advised. - No changes to the current medication regimen are necessary. 4. Hyperlipidemia. - She is currently on atorvastatin and Zetia for cholesterol management. - Recent cholesterol levels were checked in July or August 2024 and are within acceptable limits. - Continued adherence to the prescribed medication regimen is advised. - No additional lipid panel is needed at this time. 5. Memory issues. - She reports forgetfulness, particularly for recent events. - A memory test will be conducted today to assess cognitive function. - Review of her current medications to rule out potential contributors to memory issues. - Further evaluation and possible referral to a specialist may be considered based on test results. 6. Lump. - The lump appears to be a lipoma or cyst but is slightly irregular. - An ultrasound will be ordered to ensure it does not have concerning features. - If the ultrasound shows any concerning features, surgical removal may be considered. - Monitoring for any changes in size or characteristics of the lump is advised. 7. Health maintenance. - She is advised to receive annual influenza vaccines and consider pneumonia, shingles, and tetanus vaccines due to her diabetes and hypertension. - She is due for a mammogram and can get it done today. - A CT scan for lung cancer screening will be ordered due to her smoking history. - Encouraged to think about and schedule the recommended immunizations. Follow-up - The patient will follow up in 3 months. Assessment/Plan Problem List Items Addressed This Visit Benign essential HTN (CMS/HCC) Factor 5 Leiden mutation, heterozygous (CMS/HCC) Mixed hyperlipidemia (CMS/HCC) Seasonal allergic rhinitis Other Visit Diagnoses Annual wellness visit - Primary Nicotine abuse Relevant Orders CT lung screening low dose Cyst, dermoid, arm, right Relevant Orders US Soft Tissue Palpable Mass Type 2 diabetes mellitus without complication, without long-term current use of insulin Relevant Orders POCT Glycated hemoglobin, total Nicotine dependence, cigarettes, in remission Relevant Orders CT lung screening low dose documented in this encounter [facility] 10-17-2024 Note Cardiovascular Medic [facility] SUBJECTIVE Chief Complaint Patient presents with Palpitations Hypertension Coronary Artery Disease Chest Pain Lexi Garcia is a 54 y.o. female here for follow-up. HPI PMHx: HTN, depression, anxiety, tachycardia, factor V, pre-DM, fibromyalgia 10/17/2024 Patient is here for her 6 moth follow up. Patient states she if feeling a little concerned due to numbness and tingling in her hands and toes, she get chest tightness on her left side along with dizziness lightheaded, SOB ,confusion, she can feel her heart race and lower when she is going through one of these episodes. Per patient she stopped smoking 2 months ago, she still occasional vapes. She has been having chest tightness left side more often. This is also causes her to feel SOB. But if she takes a deep breath the chest pain worsens. Occurs at rest or with exertion. Occurs multiple times day. She often has accompanied palpitations, dizziness/LH. She can have palpitations occurring at random times throughout the day and doesn't have accompanied sx's. Palpitations feels like a racing, fluttering feeling. Sometimes a skipped beat. She has HOFFMAN. This has been ongoing. 6 weeks ago she started exercise program at the [facility]. This has helped her sx's some. But she finds that she sometimes cannot exert herself any further while exercising. She has had near syncope but never passed out. She c/o leg tingling at the end of the day. 11/02/2023 She has been waking up feeling like [...] Unstable angina (CMS/HCC) Coronary artery disease involving [place] coronary artery of [place] heart without angina pectoris Degenerative joint disease [...] protein (CRP) Factor 5 Leiden mutation, heterozygous Full thickness rotator cuff tear Herpes infection [...] Tongue ulcer Uterovaginal prolapse Vitamin D deficiency History of Sloan's esophagus History of gastric ulcer Past Medical History: Diagnosis Date ACL tear R knee, s/p repair in 2019 Anxiety Carpal tunnel syndrome, bilateral s/p B/L release in 2017 Chronic low back pain herniated disc s/p L5 lumbar disc surgery in 2019 Chronic neck pain s/p C6-7 fusion, s/p C6-7 plate removal then C5 and C6 plates in 2019 Chronic pain disorder Clotting disorder Depression Factor V Leiden Fibromyalgia, primary GERD (gastroesophageal reflux disease) Hyperlipidemia Hypertension Osteoarthritis Osteopenia Prediabetes Retinal hole of right eye Rotator cuff syndrome R shoulder, s/p repair with screw placed in 2019 Tobacco dependence in remission Vitamin D deficiency Family History Problem Relation Name Age of Onset COPD Mother Heart failure Mother Coronary artery disease Father 56 Social History Tobacco Use Smoking status: Former Current packs/day: 0.00 Average packs/day: 0.5 packs/day for 30.0 years (15.0 ttl pk-yrs) Types: Cigarettes Start date: 01/03/1994 Quit da (more content not included)... [facility] 10-17-2024 Note Patient is here for her 6 moth follow up. Patient states she if feeling a little concerned due to numbness and tingling in her hands and toes, she get chest tightness on her left side along with dizziness lightheaded, SOB confusion, she can feel her heart race and lower when she is going through one of these episodes. Per patient she stopped smoking 2 months ago, she still occasional vapes. Review of Systems Cardiovascular: Positive for chest pain and irregular heartbeat. Respiratory: Positive for shortness of breath. Neurological: Positive for dizziness and light-headedness. [facility] 09-11-2024 Telephone encounter Note Pt called-she states she was supposed to let us know how the Ozempic went, she states it went well. She also scheduled an appt with [facility]. [facility] 09-11-2024 Miscellaneous Notes Pt called-she states she was supposed to let us know how the Ozempic went, she states it went well. She also scheduled an appt with Lukas. documented in this encounter [facility] 08-21-2024 History of Present illness Narrative Images from the original note were not included. Subjective Patient ID: Pretty Garcia is a 54 y.o. female who presents for Foot Pain (Pretty Garcia is a 54 y.o. female who presents for a lump on her left heel.Patient relates it is difficult to walk. Patient noticed 1 month ago. Patient recently diagnosed with diabetes type II. Dr. Velásquez 07/06/2024 BS 162 A1C 9.0. SS 7.5). HPI Established patient presents to clinic for pain full lesion of the left heel. Patient states that she noticed it shortly after her last appointment. Is started to become painful with walking and standing. No treatment tried. She is newly diagnosed diabetic and she was very concerned that the lesion was a symptom of a deeper problem. She has not noticed any drainage. Review of Systems Constitutional: Negative for activity change and appetite change. Respiratory: Negative for chest tightness and shortness of breath. Cardiovascular: Positive for leg swelling. Negative for chest pain. Endocrine: Negative for cold intolerance and heat intolerance. Musculoskeletal: Positive for arthralgias and gait problem. Skin: Negative for color change and wound. Allergic/Immunologic: Negative for immunocompromised state. Neurological: Positive for numbness. Negative for weakness. Hematological: Does not bruise/bleed easily. Psychiatric/Behavioral: Negative for agitation and behavioral problems. Medications Current Outpatient Medications: acetaminophen (Tylenol) 325 MG tablet, Take 650 mg by mouth every 6 (six) hours if needed., Disp: , Rfl: acyclovir (Zovirax) 400 MG tablet, , Disp: , Rfl: amLODIPine (Norvasc) 10 MG tablet, Take 1 tablet (10 mg) by mouth Daily, Disp: 90 tablet, Rfl: 1 ammonium lactate (Amlactin) 12 % cream, Apply topically Daily, Disp: 140 g, Rfl: 3 apixaban (Eliquis) 2.5 MG tablet, Take 2.5 mg by mouth in the morning and 2.5 mg in the evening., Disp: , Rfl: atorvastatin (Lipitor) 80 MG tablet, Take 80 mg by mouth in the morning., Disp: , Rfl: cholecalciferol (Vitamin D-3) 50 MCG (2000 UT) capsule, Take by mouth. (Patient not taking: Reported on 08/08/2024), Disp: , Rfl: clobetasol (Temovate) 0.05 % cream, , Disp: , Rfl: clonazePAM (KlonoPIN) 0.5 MG tablet, Take 0.5 mg by mouth 2 (two) times a day as needed., Disp: , Rfl: cyclobenzaprine (Flexeril) 10 MG tablet, , Disp: , Rfl: desvenlafaxine (Pristiq) 100 MG 24 hr tablet, , Disp: , Rfl: ezetimibe (Zetia) 10 MG tablet, Take 10 mg by mouth in the morning., Disp: , Rfl: gabapentin (Neurontin) 300 MG capsule, Take 300 mg by mouth in the morning and 300 mg in the evening and 300 mg before bedtime., Disp: , Rfl: lamoTRIgine (LaMICtal) 200 MG tablet, 300 mg 1 (one) time each day at the same time, Disp: , Rfl: metFORMIN (Glucophage) 500 MG tablet, Take 1 tablet (500 mg) by mouth in the morning and 1 tablet (500 mg) in the evening. Take with meals., Disp: 60 tablet, Rfl: 1 metoprolol succinate XL (Toprol-XL) 25 MG 24 hr tablet, Take 25 mg by mouth in the morning., Disp: , Rfl: multivitamin with minerals (Cerovite) 18-400 mg-mcg tablet tablet, Take 1 tablet by mouth in the morning., Disp: , Rfl: nicotine (Nicoderm, Step 1) 21 MG/24HR patch, Place 1 patch over 24 hours on the skin 1 (one) time each day at the same time, Disp: 42 patch, Rfl: 0 omeprazole (PriLOSEC) [address] capsule, Take 1 capsule (20 mg) by mouth in the morning. Take before meals., Disp: 90 capsule, Rfl: 0 QUEtiapine (SEROquel) 400 MG tablet, , Disp: , Rfl: semaglutide (Ozempic) 2 MG/1.5ML solution pen-injector, Inject 0.25 mg under the skin 1 (one) time per week, Disp: 1 each, Rfl: 0 sucralfate (Carafate) 1 g tablet, Take 1 tablet (1 g) by mouth in the morning and 1 tablet (1 g) at noon and 1 tablet (1 g) in the evening and 1 tablet (1 g) before bedtime. Take before meals., Disp: 120 tablet, Rfl: 0 Allergies Ibuprofen and Tramadol Past Surgical History Past Surgical History: Procedure Laterality Date ADENOIDECTOMY CARPAL TUNNEL RELEASE Bilateral 2017 CERVICAL DISC SURGERY 2003 COLOGUARD 02/02/2019 neg due in 3 yrs D&C FIRST TRIMESTER / TX INCOMPLETE / MISSED / SEPTIC / INDUCED 2009 - [facility] ENDOMETRIAL ABLATION LUMBAR DISC SURGERY 06/2020 Felicia MULTIPLE TOOTH EXTRACTIONS 05/2019 upper front teeth extraction with denture work NECK SURGERY 05/2020 OTHER SURGICAL HISTORY T AND A OTHER SURGICAL HISTORY Left 10/13/2022 r/o left buccal lesion, [place] OVARIAN CYST REMOVAL 1987 -Dr. Chawla [place] FASCIOTOMY FOOT&/TOE 1997 plantar [place] KNEE SCOPE,DIAGNOSTIC Right 12/03/[address] H[place] LAP,CHOLECYSTECTOMY 1999 ROTATOR CUFF REPAIR 06/05/2019 resection distal clavical, acromioplasty/bondra TONSILLECTOMY TOTAL VAGINAL HYSTERECTOMY 03/2018 BSO, suspension/repair/[place] TUBAL LIGATION 2009 Dr[address] Chawla TYMPANOPLASTY 1996 NEC Family History Family History Problem Relation Name Age of Onset Bipolar disorder Mother Diabetes Mother Mental illness Mother Bipolar disorder Sister Rand Hypothyroidism Sibling COPD Sibling Heart disease Paternal Cousin Objective Physical Exam Constitutional: General: She is not in acute distress. Appearance: She is obese. Comments: Smells heavily of marijuana. HENT: Head: Normocephalic and atraumatic. Cardiovascular: Comments: DP and PT pulses palpable 2/4 bilaterally. Hair growth absent bilaterally. Skin is diffusely thin. Pulmonary: Effort: Pulmonary effort is normal. No respiratory distress. Musculoskeletal: Cervical back: Neck supple. Comments: No obvious muscle deficits. No significant pedal deformities. Skin: Capillary Refill: Capillary refill takes less than 2 seconds. Comments: Hallux toenails exhibit distal mycosis with yellow/brown discoloration, crumbly texture. Toenails are currently manicured for length, thickness. Hyperkeratotic tissue: Left foot: Plantar calcaneus. Tender to palpation. Right foot: None Neurological: Mental Status: She is alert. Comments: Protective sensation intact at 9/10 pedal sites bilaterally. Vibratory sensation diminished at the 1st MTP bilaterally. Psychiatric: Mood and Affect: Mood normal. Behavior: Behavior normal. Assessment/Plan ICD-10-CM 1. Corns and callosities L84 ammonium lactate (Amlactin) 12 % cream 2. Diabetic polyneuropathy associated with type 2 diabetes mellitus (CMS/HCC) E11.42 3. Left foot pain M79.672 Patient was examined and evaluated. Sterile #15 blade was utilized to debride all hyperkeratotic tissue to patient's satisfaction without incident. I discussed causes and treatment options for calluses. I have recommended ammonium lactate cream daily as well as a pumice stone or emery board debridement on a weekly basis. This is to try and reduce hyperkeratotic buildup to reduce symptomatology. Prescription for ammonium lactate sent to her pharmacy. I've also discussed orthotic therapy to help distribute pressure evenly across the foot and reduce sheer forces in these callused areas. For now we will follow-up for her regularly scheduled diabetic foot check. She will call sooner with any change or concerns. This note was created with the assistance of a speech recognition program. While intending to generate a timely document that accurately reflects the content of the visit, no guarantee can be provided that every grammatical or spelling mistake has been or will be identified or corrected. Thank you for your understanding. John Gauthier DPM documented in this encounter [facility] 08-08-2024 History of Present illness Narrative Images from the original note were not included. Lexi Garcia is a 54 y.o. female presents with chief complaint of Diabetes (GI isabel lorenzo is no longer practicing and patient needs new GI referral, pt wondering if prioles and sulcrafte could be renewed by you in the meantime) Tips of toes are tingling since May ( when dx with DM) see's Dr. Gauthier HPI: HPI History of Present Illness The patient presents for evaluation of diabetes, GERD, cholesterol management, hypertension, coronary artery disease, herpes outbreak, and sinus infection. She has been managing her diet for the past month but is distressed due to persistently elevated blood glucose levels. Despite adherence to her medication regimen, her blood glucose readings have consistently remained below 200, with a single exception. She was diagnosed with diabetes approximately 1 month ago, following a previous diagnosis of prediabetes. She experiences tingling in her toes, which she attributes to high blood sugar levels, as this symptom subsides after taking metformin. She has received diabetes education from Luk[facility] and has an upcoming appointment on 08/26/2024. She has been advised to monitor her carbohydrate intake instead of calories. She reports frequent headaches, which she suspects may be related to her diabetes. She is currently on amlodipine 10 mg for blood pressure management. She is considering injectable medications for diabetes management and has already learned how to administer injections from caring for her mother. She is also planning to schedule an appointment with her insurance marketing specialist due to changes in her vision. She has a history of a retinal hole. She has been experiencing a persistent sinus infection for several weeks, which she believes is spreading within her household. She reports no fever but has a history of ear infections. She has a history of coronary artery disease, with 40% to 50% blockage in two different parts of the coronary artery. She is under the care of a applications consultant at [facility]. She has been compliant with her cholesterol medication, but her triglyceride levels remain high. She is currently taking Zetia and atorvastatin for cholesterol management. She underwent an endoscopy on 02/03/2024, which revealed scar tissue. A subsequent biopsy performed on 06/04/[address] You, a general surgeon, showed no abnormalities. She has run out of omeprazole and is experiencing a recurrence of GERD symptoms. She reports that sucralfate was effective in managing her GERD symptoms. She is seeking a new epic trainer. She had a herpes outbreak on her back about 10 years ago, which appears to be infected. She took acyclovir for the first 2 days when it started. SOCIAL HISTORY The patient admits to smoking. FAMILY HISTORY The patient's father had coronary artery disease. ALLERGIES The patient has no known allergies. MEDICATIONS Current: Metformin, amlodipine, atorvastatin, omeprazole, sucralfate, acyclovir (as needed). SUBJECTIVE: MEDICATIONS: Current Outpatient Medications Medication Instructions acetaminophen (TYLENOL) 650 mg, Every 6 hours PRN acyclovir (Zovirax) 400 MG tablet amLODIPine (NORVASC) 10 mg, Oral, Daily apixaban (ELIQUIS) 2.5 mg, 2 times daily atorvastatin (LIPITOR) 80 mg, Oral, Daily RT cholecalciferol (Vitamin D-3) 50 MCG (1999 UT) capsule Take by mouth. clobetasol (Temovate) 0.05 % cream clonazePAM (KLONOPIN) 0.5 mg, 2 times daily PRN cyclobenzaprine (Flexeril) 10 MG tablet desvenlafaxine (Pristiq) 100 MG 24 hr tablet ezetimibe (ZETIA) 10 mg, Oral, Daily RT gabapentin (NEURONTIN) 300 mg, 3 times daily lamoTRIgine (LAMICTAL) 300 mg, Every 24 hours metFORMIN (GLUCOPHAGE) 500 mg, Oral, 2 times daily with meals metoprolol succinate XL (TOPROL-XL) 25 mg, Oral, Daily RT multivitamin with minerals (Cerovite) 18-400 mg-mcg tablet tablet 1 tablet, Daily nicotine (Nicoderm, Step 1) 21 MG/24HR patch 1 patch, Transdermal, Every 24 hours omeprazole (PRILOSEC) 20 mg, Daily before breakfast QUEtiapine (SEROquel) 400 MG tablet sucralfate (Carafate) 1 g tablet 1 tablet, 4 times daily I have reviewed and reconciled the history and medication list with the patient today. REVIEW OF SYMPTOMS: Review of Systems OBJECTIVE: Visit Vitals BP 112/68 Pulse 93 Ht 5' 4 Wt 213 lb 6.4 oz SpO2 95% BMI 36.63 kg/m Smoking Status Every Day BSA 2.09 m Physical Exam Vitals and nursing note reviewed. Constitutional: General: She is not in acute distress. Appearance: Normal appearance. HENT: Head: Normocephalic and atraumatic. Ears: Comments: Dull TMS. Nose: Nose normal. Comments: Tender over frontal sinuses. Mouth/Throat: Mouth: Mucous membranes are moist. Pharynx: Oropharynx is clear. Eyes: Extraocular Movements: Extraocular movements intact. Cardiovascular: Rate and Rhythm: Normal rate and regular rhythm. Pulses: Normal pulses. Heart sounds: Murmur heard. Pulmonary: Effort: Pulmonary effort is normal. Breath sounds: Normal breath sounds. Musculoskeletal: Cervical back: Normal range of motion and neck supple. Skin: General: Skin is warm and dry. Comments: Healing patch of herpetic lesions on the left upper buttocks. Neurological: General: No focal deficit present. Mental Status: She is alert. Psychiatric: Mood and Affect: Mood normal. ASSESSMENT AND PLAN: Assessment & Plan 1. Diabetes Mellitus. Her A1c has escalated from 6.2 to 9.3 within a year, despite being on Metformin. This indicates a rapid progression of her diabetes, necessitating additional pharmacological intervention. Her tingling toes are likely a consequence of elevated blood glucose levels. She has been informed that now is not the optimal time for new glasses due to her high blood sugar levels, which can alter her vision and render new glasses ineffective. She has been advised to undergo an eye exam to check for retinopathy, a potential complication of diabetes. She will continue her current dose of Metformin. Ozempic will be initiated, pending insurance approval. She has been educated about the potential side effects of Ozempic, including increased reflux and decreased appetite. She has been advised to delay starting Ozempic until she has been on antibiotics for a few days to avoid gastrointestinal upset. She will continue her follow-ups with [facility]. Her hemoglobin A1c will be rechecked in 3 months. If Ozempic exacerbates her reflux or induces vomiting, it will be discontinued, and an alternative treatment plan will be considered. 2. Frontal Sinus Infection. She will be started on antibiotics for her sinus infection. She has been informed about the potential side effects of antibiotics, including diarrhea and stomach upset. 3. Coronary Artery Disease. She has a 40% to 50% blockage in the coronary artery in two different parts. She is currently under the care of a applications consultant at [facility]. 4. Cholesterol Management. Her LDL cholesterol is at 76, which is decent, but her HDL cholesterol is low. She will continue her current regimen of Zetia and atorvastatin. 5. Gastroesophageal Reflux Disease (GERD). Her omeprazole and sucralfate will be reordered. She has been advised to monitor her portion sizes to prevent overeating, which can exacerbate reflux. 6. Herpes Outbreak. Her herpes outbreak on her back appears to be healing and does not necessitate antibiotic treatment. It is likely too late for antiviral therapy. 7. Hypertension. Her blood pressure is well controlled today. She will continue her current dose of amlodipine 10 mg. PROCEDURE Endoscopy on 02/03/2024 revealed scar tissue. Biopsy on 06/04/2024 showed no abnormalities. Assessment/Plan Problem List Items Addressed This Visit Benign essential HTN (CMS/HCC) Cigarette smoker Gastroesophageal reflux disease Mixed hyperlipidemia (CMS/HCC) Coronary artery disease involving [place] coronary artery of [place] heart with angina pectoris (CMS/HCC) Herpes infection Other Visit Diagnoses Poorly controlled type 2 diabetes mellitus with neuropathy (CMS/HCC) - Primary Relevant Orders Microalbumin / creatinine, urine ratio Morbid (severe) obesity due to excess calories (CMS/HCC) Body mass index (BMI) 38.0-38.9, adult Acute non-recurrent frontal sinusitis documented in this encounter [facility] 07-25-2024 History of Present illness Narrative Images from the original note were not included. Subjective Patient ID: Pretty Garcia is a 54 y.o. female who presents for DM Foot Care (Pretty Garcia is a 54 y.o. female who presents for diabetic nail care. Patient would like to discuss possible removal of BL great toenails. Patient being monitored for Diabetes at this time. Dr. Velásquez 07/06/2024 BS 162 A1C 9.0. SS 7.5). HPI This is an established patient who presents to clinic for diabetic foot check. Patient is recently diagnosed diabetic and her current hemoglobin A1c is 9 percent per the patient. Patient has been seen by me previously with concern of thickened, ingrowing hallux toenails. She states that they continue to be a problem for her. Symptoms are worse with elongation of the nail. She states that she does have some difficulty trimming the nail as well. Review of Systems Constitutional: Negative for activity change and appetite change. Respiratory: Negative for chest tightness and shortness of breath. Cardiovascular: Positive for leg swelling. Negative for chest pain. Endocrine: Negative for cold intolerance and heat intolerance. Musculoskeletal: Positive for arthralgias and gait problem. Skin: Negative for color change and wound. Allergic/Immunologic: Negative for immunocompromised state. Neurological: Positive for numbness. Negative for weakness. Hematological: Does not bruise/bleed easily. Psychiatric/Behavioral: Negative for agitation and behavioral problems. Medications Current Outpatient Medications: acetaminophen (Tylenol) 325 MG tablet, Take 650 mg by mouth every 6 (six) hours if needed., Disp: , Rfl: acyclovir (Zovirax) 400 MG tablet, , Disp: , Rfl: amLODIPine (Norvasc) 10 MG tablet, Take 1 tablet (10 mg) by mouth Daily, Disp: 90 tablet, Rfl: 1 apixaban (Eliquis) 2.5 MG tablet, Take 2.5 mg by mouth in the morning and 2.5 mg in the evening., Disp: , Rfl: atorvastatin (Lipitor) 80 MG tablet, Take 80 mg by mouth in the morning., Disp: , Rfl: cholecalciferol (Vitamin D-3) 50 MCG (1999 UT) capsule, Take by mouth. (Patient not taking: Reported on 07/06/2024), Disp: , Rfl: clobetasol (Temovate) 0.05 % cream, , Disp: , Rfl: clonazePAM (KlonoPIN) 0.5 MG tablet, Take 0.5 mg by mouth 2 (two) times a day as needed., Disp: , Rfl: cyclobenzaprine (Flexeril) 10 MG tablet, , Disp: , Rfl: desvenlafaxine (Pristiq) 100 MG 24 hr tablet, , Disp: , Rfl: ezetimibe (Zetia) 10 MG tablet, Take 10 mg by mouth in the morning., Disp: , Rfl: gabapentin (Neurontin) 300 MG capsule, Take 300 mg by mouth in the morning and 300 mg in the evening and 300 mg before bedtime., Disp: , Rfl: lamoTRIgine (LaMICtal) 200 MG tablet, 300 mg 1 (one) time each day at the same time, Disp: , Rfl: metFORMIN (Glucophage) 500 MG tablet, Take 1 tablet (500 mg) by mouth in the morning and 1 tablet (500 mg) in the evening. Take with meals., Disp: 60 tablet, Rfl: 1 metoprolol succinate XL (Toprol-XL) 25 MG 24 hr tablet, Take 25 mg by mouth in the morning., Disp: , Rfl: multivitamin with minerals (Cerovite) 18-400 mg-mcg tablet tablet, Take 1 tablet by mouth in the morning., Disp: , Rfl: nicotine (Nicoderm, Step 1) 21 MG/24HR patch, Place 1 patch over 24 hours on the skin 1 (one) time each day at the same time, Disp: 42 patch, Rfl: 0 omeprazole (PriLOSEC) [address] capsule, Take 20 mg by mouth in the morning. Take before meals., Disp: , Rfl: QUEtiapine (SEROquel) 400 MG tablet, , Disp: , Rfl: sucralfate (Carafate) 1 g tablet, Take 1 tablet by mouth in the morning and 1 tablet at noon and 1 tablet in the evening and 1 tablet before bedtime. (Patient not taking: Reported on 07/06/2024), Disp: , Rfl: Allergies Ibuprofen and Tramadol Past Surgical History Past Surgical History: Procedure Laterality Date ADENOIDECTOMY CARPAL TUNNEL RELEASE Bilateral 2017 CERVICAL DISC SURGERY 2004 COLOGUARD 02/02/2019 neg due in 3 yrs D&C FIRST TRIMESTER / TX INCOMPLETE / MISSED / SEPTIC / INDUCED 2010 - [facility] ENDOMETRIAL ABLATION LUMBAR DISC SURGERY 06/2020 [place] MULTIPLE TOOTH EXTRACTIONS 05/2019 upper front teeth extraction with denture work NECK SURGERY 05/2020 OTHER SURGICAL HISTORY T AND A OTHER SURGICAL HISTORY Left 10/13/2022 r/o left buccal lesion, [place] OVARIAN CYST REMOVAL 1987 -Dr. Chawla [place] FASCIOTOMY FOOT&/TOE 1997 plantar [place] KNEE SCOPE,DIAGNOSTIC Right 12/03/[address] JANET MYERS LAP,CHOLECYSTECTOMY 2000 ROTATOR CUFF REPAIR 06/05/2019 resection distal clavical, acromioplasty/bondra TONSILLECTOMY TOTAL VAGINAL HYSTERECTOMY 03/2018 BSO, suspension/repair/[place] TUBAL LIGATION 2009 Dr. Chawla TYMPANOPLASTY 1996 NEC Family History Family History Problem Relation Name Age of Onset Bipolar disorder Mother Diabetes Mother Mental illness Mother Bipolar disorder Sister Rand Hypothyroidism Sibling COPD Sibling Heart disease Paternal Cousin Objective Physical Exam Constitutional: General: She is not in acute distress. Appearance: She is obese. Comments: Smells heavily of marijuana. HENT: Head: Normocephalic and atraumatic. Cardiovascular: Comments: DP and PT pulses palpable 2/4 bilaterally. Hair growth absent bilaterally. Skin is diffusely thin. Pulmonary: Effort: Pulmonary effort is normal. No respiratory distress. Musculoskeletal: Cervical back: Neck supple. Comments: No obvious muscle deficits. No significant pedal deformities. Skin: Capillary Refill: Capillary refill takes less than 2 seconds. Comments: Hallux toenails exhibit distal mycosis with thickened appearance, yellow/brown discoloration, crumbly texture. Tenderness to palpation due to the thickened nature at the distal tuft of the hallux nails. All 10 toenails are elongated. Hyperkeratotic tissue: Left foot: None Right foot: None Neurological: Mental Status: She is alert. Comments: Protective sensation intact at 9/10 pedal sites bilaterally. Vibratory sensation diminished at the 1st MTP bilaterally. Psychiatric: Mood and Affect: Mood normal. Behavior: Behavior normal. Assessment/Plan ICD-10-CM 1. Diabetic polyneuropathy associated with type 2 diabetes mellitus (CMS/HCC) E11.42 2. Onychomycosis B35.1 3. Onychodystrophy L60.3 4. Pain in both feet M79.671 M79.672 Patient was examined and evaluated. Diabetic foot evaluation performed. Patient is currently low risk for pedal complications that she has palpable pedal pulses, no preulcerative lesions. She does have some mild loss of protective sensation. Ten toenails were debrided in length and thickness today utilizing a nail nipper and electric bur facing grinder without incident. We discussed phenol matricectomy for the hallux toenails. At this time her hemoglobin A1c is 9 percent and I do not recommend moving forward with phenol matricectomy until her A1c is less than 8 percent. In the meantime we will continue to see her for low risk diabetic foot check. Once her hemoglobin A1c is less than 8 percent we can re-evaluate phenol matricectomy. I have discussed the importance of daily foot examinations and tight blood sugar control. We will follow up in 3 months for at risk diabetic foot evaluation. This note was created with the assistance of a speech recognition program. While intending to generate a timely document that accurately reflects the content of the visit, no guarantee can be provided that every grammatical or spelling mistake has been or will be identified or corrected. Thank you for your understanding. John Gauthier DPM documented in this encounter [facility] 07-21-2024 Telephone encounter Note 20% CO PAY WITH TEN 1 HR VISITS FIRST YEAR AND TWO 1 HR VISITS SUBSEQUENT YEARS [facility] 07-21-2024 Miscellaneous Notes 20% CO PAY WITH TEN 1 HR VISITS FIRST YEAR AND TWO 1 HR VISITS SUBSEQUENT YEARS documented in this encounter [facility] 07-06-2024 History of Present illness Narrative Images from the original note were not included. Ref Lexi Garcia is a 54 y.o. female presents with chief complaint of high BS readings. HPI: HPI History of Present Illness The patient presents for evaluation of diabetes, hypertension, coronary artery disease, hyperlipidemia, factor V Leiden, bipolar disorder, back and neck pain, and health maintenance. She has been monitoring her blood glucose levels daily since May 2024, with readings consistently above the normal range. She reports experiencing blurred vision, which she attributes to her elevated blood glucose levels. She has a history of gestational diabetes approximately 30 years ago. She owns a glucometer and has an adequate supply of test strips. She has also experienced numbness in her feet. Her readings have ranged from 293 to 360, with a reading of 193 this morning and 285 last Wednesday during a medical procedure. She had an A1c done at her applications consultant and number was 9.3. She has hypertension. She is on amlodipine. She has coronary artery disease. She has not had any stents or heart attacks. She had a heart catheterization, which came back with coronary artery disease. She has high cholesterol. She is on Zetia and Lipitor. She is on Eliquis, a blood thinner. She started going to a clinical staff rn in [facility] because she has factor V Leiden. The clinical staff rn thought since she was getting older that it is the lowest dose she can get just to try out. She was feeling sluggish. She has not taken Celebrex since starting Eliquis. She was put on gabapentin instead of Celebrex for the pain she was having in her back and neck. She had pain management procedures last week, including steroid injections in her neck and lower back. Only half a dose of steroid was administered for her lower back due to her elevated blood glucose levels. She is on Pristiq, Lamictal, and Seroquel for her bipolar disorder, which is under good control. She has no lung issues. She does not take any thyroid medicine and has not had any thyroid problems. She has not had any recent gastrointestinal issues but has a past medical history of irritable bowel syndrome dating back 20 years. She underwent a Cologuard test in 2022, which yielded normal results. Her last mammogram was conducted in 2021. She is a smoker, consuming approximately half a pack of cigarettes daily, although she expresses a desire to quit. SOCIAL HISTORY The patient smokes approximately 1/2 pack a day and is planning on quitting. FAMILY HISTORY The patient's mother yesterday after being in hospice for about a month. MEDICATIONS Current: Amlodipine, Zetia, Lipitor, Eliquis, gabapentin, Pristiq, Lamictal, Seroquel Discontinued: Celebrex SUBJECTIVE: MEDICATIONS: Current Outpatient Medications Medication Instructions acetaminophen (TYLENOL) 650 mg, Every 6 hours PRN acyclovir (Zovirax) 400 MG tablet amLODIPine (NORVASC) 10 mg, Oral, Daily apixaban (ELIQUIS) 2.5 mg, 2 times daily atorvastatin (LIPITOR) 80 mg, Oral, Daily RT celecoxib (CELEBREX) 400 mg, Daily cholecalciferol (Vitamin D-3) 50 MCG (1999) capsule Take by mouth. clobetasol (Temovate) 0.05 % cream clonazePAM (KLONOPIN) 0.5 mg, 2 times daily PRN cyclobenzaprine (Flexeril) 10 MG tablet desvenlafaxine (Pristiq) 100 MG 24 hr tablet ezetimibe (ZETIA) 10 mg, Oral, Daily RT gabapentin (NEURONTIN) 300 mg, 3 times daily lamoTRIgine (LAMICTAL) 300 mg, Every 24 hours metoprolol succinate XL (TOPROL-XL) 25 mg, Oral, Daily RT multivitamin with minerals (Cerovite) 18-400 mg-mcg tablet tablet 1 tablet, Daily nicotine (Nicoderm, Step 1) 21 MG/24HR patch 1 patch, Transdermal, Every 24 hours omeprazole (PRILOSEC) 20 mg, Daily before breakfast QUEtiapine (SEROquel) 400 MG tablet sucralfate (Carafate) 1 g tablet 1 tablet, 4 times daily I have reviewed and reconciled the history and medication list with the patient today. REVIEW OF SYMPTOMS: Review of Systems OBJECTIVE: Visit Vitals BP 126/82 Pulse 82 Ht 5' 4 Wt 217 lb 3.2 oz SpO2 96% BMI 37.28 kg/m Smoking Status Every Day BSA 2.11 m Physical Exam Vitals and nursing note reviewed. Constitutional: Appearance: Normal appearance. HENT: Head: Normocephalic and atraumatic. Cardiovascular: Rate and Rhythm: Normal rate and regular rhythm. Pulses: Normal pulses. Heart sounds: Normal heart sounds. Pulmonary: Effort: Pulmonary effort is normal. Breath sounds: Normal breath sounds. Musculoskeletal: Cervical back: Normal range of motion and neck supple. Neurological: Mental Status: She is alert. Psychiatric: Mood and Affect: Mood normal. ASSESSMENT AND PLAN: Assessment & Plan 1. Diabetes mellitus. Her blood glucose levels have been consistently elevated, with readings ranging from 193 to 360. She reports blurry vision, which is a common symptom of uncontrolled diabetes. She is advised to monitor her blood glucose levels at various times throughout the day, including fasting, pre-meal, and 2 hours post-meal, and to maintain a log of these readings. She is encouraged to adopt a healthy diet and engage in regular physical activity to facilitate weight loss, which can improve insulin resistance. She will be initiated on metformin therapy, starting with a once-daily dose due to potential gastrointestinal side effects. If tolerated, the dosage will be increased to twice daily. A referral to a visual educator will be made for further education and management. A prescription for glucometer strips will be provided upon request. If her blood glucose levels remain uncontrolled, additional medications may be considered. 2. Hypertension. Her blood pressure is currently well-controlled with amlodipine. She is advised to continue her current medication regimen. 3. Coronary artery disease. She has a history of coronary artery disease but has not required stents. She is currently on Eliquis for factor V Leiden and is advised to avoid anti-inflammatory medications like Celebrex, Motrin, Aleve, and ibuprofen due to the increased risk of bleeding. 4. Hyperlipidemia. She is currently on Zetia and Lipitor for high cholesterol. She is advised to continue her current medication regimen. 5. Factor V Leiden. She is on Eliquis as a prophylactic measure due to her age and sluggish blood flow. She is advised to continue this medication and avoid anti-inflammatory medications. 6. Back and neck pain. She is currently on gabapentin for pain management. She received steroid injections in her neck and lower back last week. She is advised to continue gabapentin as it is safe to use with Eliquis. 7. Bipolar disorder. Her condition is currently well-controlled with Pristiq, Lamictal, and Seroquel. She is advised to continue her current medication regimen. 8. Health maintenance. An order for a mammogram will be placed as her last one was in 2021. She is advised to quit smoking as it can aid in pain management and overall health improvement. Follow-up The patient will follow up in 1 month. PROCEDURE The patient received steroid injections in her neck and lower back last week. Assessment/Plan Problem List Items Addressed This Visit Benign essential HTN (CMS/HCC) - Primary Bipolar 1 disorder (CMS/HCC) Cigarette smoker Factor 5 Leiden mutation, heterozygous (CMS/HCC) Relevant Medications apixaban (Eliquis) 2.5 MG tablet Mixed hyperlipidemia (CMS/HCC) Coronary artery disease involving [place] coronary artery of [place] heart with angina pectoris (CMS/HCC) Other Visit Diagnoses Type 2 diabetes mellitus without complication, without long-term current use of insulin (CMS/HCC) Relevant Medications metFORMIN (Glucophage) 500 MG tablet Encounter for screening mammogram for malignant neoplasm of breast Relevant Orders Bilateral screening mammogram with tomosynthesis documented in this encounter [facility] 06-09-2024 History of Present illness Narrative Discharge [...] Patient has stopped her eliquis per her applications consultant, Dr Castro, who also provided cardiac clearance [...] PAT phone call. documented in this encounter [facility] 06-09-2024 Hospital Discharge instructions Maximiliano You MD [...] one drug, even if it is an [id number] medication, herb, or dietary supplement, be sure [...] call 911 immediately. documented in this encounter [facility] 05-04-2024 Note Cardiovascular Medic [facility] SUBJECTIVE Lexi Garcia is a 54 [...] Unstable angina (CMS/HCC) Coronary artery disease involving [place] coronary artery of [place] heart without angina pectoris Degenerative joint disease involving multiple joints Osteopenia NSAID long-term use Adjustment disorder with mixed disturbance of emotions and conduct Bilateral hand pain Bipolar 1 disorder ([facility]/HCC) Carpal tunnel syndrome Cellulitis of face Cellulitis of right lower limb Cervical disc disorder Chronic hip pain, bilateral Chronic pain of both knees Cigarette smoker Current use of estrogen therapy Elevated C-reactive protein (CRP) Factor 5 Leiden mutation, heterozygous ([facility]) Full thickness rotator cuff tear Herpes infection [...] in 2019 Chronic pain disorder Clotting disorder ([facility]) Depression Factor V Leiden ([facility]) Fibromyalgia, [...] in the morni (more content not included)... [facility] 01-25-2024 Note Attestation signed by Jennifer Roper MD at 01/25/2024 12:13 PM I personally saw and examined the patient on the same date of service as resident/fellow . I discussed the findings and therapeutic plan with the resident/fellow . I agree with the documentation, except for any edits/updates below. Teaching Physician's Revisions Symptoms are controlled on current meds, was able to decrease Celebrex to 200 BID [facility] Follow-up Patient Visit [...] surgery with numbness in hands and decreased fit model strength, R>L shoulders, neck (better since ablation). AM stiffness lasts 1-2 hrs (was 2-3 hr prior),, on average daily. Denies joint erythema, swelling, warmth. Comprehensive History: Patient Active Problem List Diagnosis Chest pain, atypical Benign essential HTN HOFFMAN (dyspnea on exertion) Fibromyalgia Elevated d-dimer Mixed hyperlipidemia GERD without esophagitis Orthopnea Sleep disturbances Abnormal nuclear stress test Unstable angina ([facility]) Coronary artery disease involving [place] coronary artery of [place] heart without angina pectoris Degenerative joint disease [...] Chronic pain disorder Depression Factor V Leiden ([facility]) Fibromyalgia, [...] 80 mg ta (more content not included)... [facility] 04-07-2023 Miscellaneous Notes Notify patient medication [...] BLOOD [SQB12] 10/05/22 10/06/23 10/05/22 Auth. provider: Galye Washington MD Assoc. diagnoses: Vitamin B12 deficiency SED RATE WESTERGREN [SQWSR] 10/05/22 10/06/23 10/05/22 Auth. provider: Gayle Washington MD Assoc. diagnoses: Elevated sed rate, Elevated C-reactive protein (CRP) C-REACTIVE PROTEIN (CRP) [SQCRP] 10/05/22 10/06/23 10/05/22 Auth. provider: Gayle Washington MD Assoc. diagnoses: Elevated sed rate, Elevated C-reactive protein (CRP) Chart notes faxed with confirmation. documented in this encounter [facility] 10-13-2022 Note OPERATIVE NOTE OPERATION DATE: [...] left cheek was prepped with Betadine. A [place] tip Bovie was then used to make [...] in good condition. [facility] 10-07-2022 Note EXAM: XR CHEST [...] Date: 2022-10-07 11:27 [facility] 07-23-2022 Note CONSULTATION CONSULTATION DATE: [...] with this plan. [facility] 06-11-2022 Note CONSULTATION CONSULTATION DATE: [...] q.h.s. 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 [facility] 05-18-2022 Miscellaneous Notes Patient's request for medication is as follows: Requested Prescriptions Signed Prescriptions Disp Refills celecoxib (CELEBREX) 200 mg capsule 180 capsule 3 Sig: Take 1 capsule by mouth twice daily. Prescription(s) as above. Please process accordingly. Gayle Washington MD [employer] message sent to patient reminding her to [...] Lab Orders Expected Expires Ordered HLA-B27 PCR [[id number]] 06/19/21 06/18/22 06/18/21 Auth. provider: Gayle Washington MD Assoc. diagnoses: Elevated sedimentation rate VITAMIN D 25 HYDROXY [SQVITD] 03/19/22 12/17/22 12/17/21 Auth. provider: Gayle Washington MD Assoc. diagnoses: Vitamin D deficiency documented in this encounter [facility] 04-16-2022 Note CONSULTATION PROCEDURE DATE: 04/16/2022 [...] three months' time. [facility] 04-09-2022 Note CONSULTATION CONSULTATION DATE: [...] for her injection. [facility] 01-01-2022 Note CONSULTATION CONSULTATION DATE: 01/01/2022 This is a pleasant 51-year-old female returning to the clinic status post #2 bilateral MBB on C3, C4 and C5 that afforded her 80% relief for 5 days. 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 [facility] Signed and Approved by: BEN MONROE . 01/08/2022 10:22:00 [facility] 12-17-2021 Miscellaneous Notes Pt aware. [...] to My Chart if tests completed at [facility]: Mildly low vitamin D- increase over [...] superior labral tear; documented in this encounter [facility] 12-12-2021 Note HNO ID: [id number] Author: Gayle Washington MD Service: ? Author [...] flat ground knees give out. COVID vaccine [employer] 06/26/21. Feels safe at home. Has enough [...] Urine or urethritis: no Renal/liver disease: no FREE LANCE MODEL/PNS/sz/cva/cancer disease: no HEME-Cytopenias/LAD/Clots: no Fevers: no Fatigue: [...] flat ground knees give out. COVID vaccine [employer] 06/26/21. Feels safe at home. Has enough [...] yes Dactylitis: no H/o precedent/frequent infection(s): no Enthesopathy/Iola's/heel/plant ar tenderness: as above Skin thickening, psoriasis, photosensitivity, purpura: no Nail changes: ridges/ripples Alpecia, patchy: no Eye inflammation: glasses, R retinal hole SICCA: dry eyes Oral/nasal/genital ulcers: no GI problems-diarrhea/bleeding/IBD/Gl uten intolerence/Dysphagia: gerd Raynaud's phenomenon/digital ulcers: no Organ inv-Serositis: no Lung disease/ILD: no Myopathy/proximal muscle weakness: no Abnormal Urine or urethritis: no Renal/liver disease: no FREE LANCE MODEL/PNS/sz/cva/cancer disease: no HEME-Cytopenias/LAD/Clots: no Fevers: no Fatigue: [...] flat ground knees give out. COVID vaccine [employer] 06/26/21. Feels safe at home. Has enough food, supplies and medications. Overall uncomfortable but happy with rheum care. = supportive care, start celebrex/notify office if not tolerated, OFF mobic/initially improved with medication but now effect wore off, prn flexeril, see pain clinic for rodent exterminator pain recommendations, see ortho/pain clinic for jail pain recommendations/injections, [...] video & audio (virtual) or phone or [id number] patient care, completing clinical documentation, obtaining and/or [...] Leora Gibbons DO documented in this encounter [facility] 12-12-2021 Instructions Gayle Washington MD - [...] scheduled Thank you. documented in this encounter [facility] 12-09-2021 Miscellaneous Notes Patient has been scheduled as requested for 12/12/21. Referral has been attached. I spoke with Khang Jose and she is aware of all of the appointment details. Nataliya Fernando PSS December 09, 2021 2:43 PM Patient calling to schedule follow up appt with Dr Washington no schedule pulling for [place] only [place]. Patient requesting call at [phone] Washington is still at [place]. Please advise. documented in this encounter [facility] 11-18-2021 Note PAIN MANAGEMENT CONS ULTATION CONSULTATION DATE: 11/18/2021 CHIEF COMPLAINT: Cervical pain. HISTORY OF PRESENT ILLNESS: This is a 51-year-old female who had, in the past, been seen by Dr. Brunner, Pain Management in [place], [place]. The patient had changed her insurances to [employer] and, as such, Dr. Brunner does not [...] like to proceed. CC: Kimberley Gibbons D.O. [facility] Signed and Approved by: DR RACHEL STOCK . 11/25/2021 12:22:00 [facility] 10-14-2021 Evaluation note Encounter Date Diagnosis [...] nerve block in the future if needed. [employer] Other 12-28-2021 Evaluation note* Encounter Date Diagnosis [...] right hip to further evaluate her pain. [employer] Other 12-15-2021 Evaluation note* Encounter Date Diagnosis [...] (ICD-10 - G89.29) Continue medications as prescribed [employer] Other 11-11-2021 Evaluation note* Encounter Date Diagnosis [...] (ICD-10 - G89.29) Continue medications as prescribed [facility] Other 09-29-2021 Evaluation note* Encounter Date Diagnosis [...] injection under ultrasound guidance in the future. [employer] Other Evaluation note* Diagnosis Secondary osteoarthritis of [...] Chronic pain syndrome documented in this encounter [facility] [employer] Other Evaluation note* Diagnosis Secondary osteoarthritis of multiple sites- Primary Osteoarthrosis involving, or with mention of more than one site, but not specified as generalized, multiple sites Vitamin D deficiency Unspecified vitamin D deficiency Fibromyalgia Mylagia and myositis, unspecified [facility] Diagnosis Secondary osteoarthritis of multiple sites Osteoarthrosis involving, or with mention of more than one site, but not specified as generalized, multiple sites [facility] Diagnosis Chronic hip pain, bilateral Chronic left shoulder pain Pain in joint, shoulder region Chronic pain of both knees Bilateral hand pain Pain in limb [facility] Diagnosis Secondary osteoarthritis of multiple sites Osteoarthrosis involving, or with mention of more than one site, but not specified as generalized, multiple sites Cervicalgia Chronic bilateral low back pain with bilateral sciatica [facility] Diagnosis Flatulence, eructation and gas pain Flatulence, eructation, and gas pain Chronic GERD [facility] Diagnosis GERD (gastroesophageal reflux disease)- Primary Esophageal reflux History of gastric ulcer Personal history of other diseases of digestive system History of Sloan's esophagus documented in this encounter [facility] note* Diagnosis Benign essential HTN ([facility]/HCC)- Primary Coronary artery disease involving [place] coronary artery of [place] heart with angina pectoris ([facility]) Factor 5 Leiden mutation, heterozygous ([facility]) Bipolar 1 disorder ([facility]) Cigarette smoker Tobacco use disorder Mixed hyperlipidemia ([facility]) Mixed hyperlipidemia Type 2 diabetes mellitus without complication, without long-term current use of insulin ([facility]) Encounter for screening mammogram for malignant neoplasm of breast [facility] Diagnosis Diabetic polyneuropathy associated with type 2 diabetes mellitus ([facility]/HCC)- Primary Onychomycosis Dermatophytosis of nail Onychodystrophy Other specified disease of nail Pain in both feet [facility] Diagnosis Poorly controlled type 2 diabetes mellitus with neuropathy ([facility])- Primary Morbid (severe) obesity due to excess calories ([facility]) Body mass index (BMI) 38.0-38.9, adult Acute non-recurrent frontal sinusitis Herpes infection Herpes simplex without mention of complication Benign essential HTN ([facility]/HCC) Coronary artery disease involving [place] coronary artery of [place] heart with angina pectoris ([facility]/HCC) Gastroesophageal reflux disease without esophagitis Esophageal reflux Cigarette smoker Tobacco use disorder Mixed hyperlipidemia ([facility]/HCC) Mixed hyperlipidemia documented in this encounter [facility]* Diagnosis Corns and callosities- Primary Diabetic polyneuropathy associated with type 2 diabetes mellitus ([facility]/HCC) Left foot pain Pain in soft tissues of limb documented in this encounter [facility]* Diagnosis Onset Date Resolution Status Admit Date Dyspepsia acute September 04 1:55pm [facility] Work Phone: Evaluation note* Diagnosis Annual wellness visit- Primary Nicotine abuse Cyst, dermoid, arm, right Type 2 diabetes mellitus without complication, without long-term current use of insulin Nicotine dependence, cigarettes, in remission Seasonal allergic rhinitis due to pollen Benign essential HTN (CMS/HCC) Factor 5 Leiden mutation, heterozygous (CMS/HCC) Mixed hyperlipidemia (CMS/HCC) Mixed hyperlipidemia documented in this encounter [facility] Narrative - Reported* Type Description Date Medical History allergies Medical History factor 5 blood disorder Medical History anxiety Medical History depression Medical History bipolar Medical History lumbar DDD Surgical History back surgery 06/2021 Surgical History neck surgery 05/2021 Hospitalization History see above [employer] Other History general Narrative - Reported* Type Description Date Medical History allergies Medical History factor 5 blood disorder Medical History anxiety Medical History depression Medical History bipolar Medical History lumbar DDD Medical History osteoarthritis of multiple joint s Surgical History back surgery 06/2021 Surgical History neck surgery 05/2021 Hospitalization History see above [employer] Other History of Present illness NarrativePatient has continued intermittent pain symptoms in her right shoulder she is remotely status post rotator cuff repair she had a follow-up MRI scan recently she would like to review with me today. She had a subacromial injection but it did not resolve all of her symptoms.[id number] Work Phone: Reason for referral (narrative)* Diagnostic Procedure Only (Routine) - Closed Specialty Diagnoses / Procedures Referred By Margarita vanegas Referred To Contact XR IMAGING Diagnoses Bilateral hand pain Procedures XR HAND GENERAL 3V PA/LAT/OBL BILATERAL X-RAY HAND MINIMUM 3 VIEWS Gayle Washington MD [address] [place] [address] Xr Imaging Referral ID Status Reason Start Date Expiration Date V isits Requested Visits Authorized [id number] Closed Auto-Generate d Referral 06/04/2021 07/04/2022 1 1 * Diagnostic Procedure Only (Routine) - Closed Specialty Diagnoses / Procedures Referred By Contac t Referred To Contact XR IMAGING Diagnoses Chronic pain of both knees Procedures XR KNEE GENERAL 4V AP BOTH/PA BOTH/LAT/MERC BILATERAL KNEE AP-WGT/L[place] [address] [place] [address] [place] [address] Xr Imaging Referral ID Status Reason Start Date Expiration Date V isits Requested Visits Authorized [id number] Closed Auto-Generate d Referral 06/04/2021 07/04/2022 1 1 * Diagnostic Procedure Only (Routine) - Closed Specialty Diagnoses / Procedures Referred By Contac t Referred To Contact XR IMAGING Diagnoses Chronic left shoulder pain Procedures XR SHOULDER GENERAL 3V OR MORE AP/TRUE AP/OTHER LEFT X-RAY SHOULDER COMPLET MIN 2 VIEWS Gayle Washington MD [address] [facility] [place] [address] Xr Imaging Referral ID Status Reason Start Date Expiration Date V isits Requested Visits Authorized [id number] Closed Auto-Generate d Referral 06/04/2021 07/04/2022 1 1 * Diagnostic Procedure Only (Routine) - Closed Specialty Diagnoses / Procedures Referred By Contac t Referred To Contact XR IMAGING Diagnoses Chronic hip pain, bilateral Procedures XR HIP BILATERAL 5V PEL/AP/LAT EACH HIP RADEX HIPS BILATERAL WITH PELVIS MINIMUM 5 VIEWS Gayle Washington MD [address] [place] [address] Xr Imaging Referral ID Status Reason Start Date Expiration Date V isits Requested Visits Authorized [id number] Closed Auto-Generate d Referral 06/04/2021 07/04/2022 1 1 [facility] for visit Narrative* Diagnostic Procedure Only (Routine) - Closed Specialty Diagnoses / Procedures Referred By Contac t Referred To Contact XR IMAGING Diagnoses Bilateral hand pain Procedures XR HAND GENERAL 3V PA/LAT/OBL BILATERAL X-RAY HAND MINIMUM 3 VIEWS Gayle Washington MD [address] [place] [address] Xr Imaging Referral ID Status Reason Start Date Expiration Date V isits Requested Visits Authorized [id number] Closed Auto-Generate d Referral 06/04/2021 07/04/2022 1 1 [facility] Summary Purpose Family History No Family History Records Found Relationship Condition Age at Onset Recorded Date/T sarika father Diabetes mellitus Unknown Hypertension Unknown mother Diabetes mellitus Unknown Advance Directives No Advanced Directives Records FoundLatest Code Status on File Code Status Date Activated Date Inactivated Comments Full Code 06/25/2020 2:09 PM 06/27/2020 8:24 PM Date Activated Date Inactivated Comments 06/25/2020 2:09 PM 06/27/2020 8:24 PM Advance Directive Response Recorded Date/ Time Advance Directives No May 04, 2017 10:18am Chief Complaint RIGHT SHOULDER FUV/ NK Reason for Referral Specialty Diagnoses / Procedures Referred By Margarita vanegas Referred To Contact Orthopedics Diagnoses Chronic pain of both knees Chronic right shoulder pain Elbow pain, left Procedures CONSULT TO ORTHOPAEDICS OFFICE/OUTPATIENT [facility] 60-74 MINUTES Gayle Washington MD [address] [place] [address] Referral ID Status Reason Start Date Expiration Date Visits Requested Visits Authorized [id number] Pending Review PCP Requested Referral 12/12/2021 12/12/2022 1 1 Chief Complaint and Reason for Visit Chief Complaint Admit Date Refer: GERD September 04, 2024 1:55 pm Reason for Visit Admit Date Dyspepsia September 04, 2024 1:55 pm Additional Source Comments INFORMATION SOURCE (unrecogn ized section and content) DATE CREATED AUTHOR 06/20/2020 [facility] DATE CREATED AUTHOR AUTHOR'S ORGANIZ ATION 06/27/2020 [facility] DATE CREATED AUTHOR AUTHOR'S ORGANIZ ATION 12/01/2020 [facility] DATE CREATED AUTHOR AUTHOR'S ORGANIZ ATION 02/23/2021 [facility] DATE CREATED AUTHOR AUTHOR'S ORGANIZ ATION 02/23/2021 [employer] DATE CREATED AUTHOR AUTHOR'S ORGANIZ ATION 12/26/2021 [facility] DATE CREATED AUTHOR AUTHOR'S ORGANIZ ATION 07/02/2022 [facility] DATE CREATED AUTHOR AUTHOR'S ORGANIZ ATION 10/08/2022 [facility] DATE CREATED AUTHOR AUTHOR'S ORGANIZ ATION 10/20/2022 [facility] DATE CREATED AUTHOR AUTHOR'S ORGANIZ ATION 06/16/2024 [facility] DATE CREATED AUTHOR AUTHOR'S ORGANIZ ATION 10/21/2024 [facility] DATE CREATED AUTHOR AUTHOR'S ORGANIZ ATION 11/10/2024 [facility] DATE CREATED AUTHOR AUTHOR'S ORGANIZ ATION 11/10/2024 [facility] Source Comments (unrecognize d section and content) In the event this informatio n is protected by the Federal Confidentiality of Alcohol and Drug Abuse Patient Records regulations: The Federal rules restrict any use of the information to criminally investigate or prosecute any alcohol or drug abuse patient.[facility] the event this information is protected by the Federal Confidentiality of Alcohol and Drug Abuse Patient Records regulations: The Federal rules restrict any use of the information to criminally investigate or prosecute any alcohol or drug abuse patient.[facility] the event this information is protected by the Federal Confidentiality of Alcohol and Drug Abuse Patient Records regulations: The Federal rules restrict any use of the information to criminally investigate or prosecute any alcohol or drug abuse patient.[facility] the event this information is protected by the Federal Confidentiality of Alcohol and Drug Abuse Patient Records regulations: The Federal rules restrict any use of the information to criminally investigate or prosecute any alcohol or drug abuse patient.[facility] the event this information is protected by the Federal Confidentiality of Alcohol and Drug Abuse Patient Records regulations: The Federal rules restrict any use of the information to criminally investigate or prosecute any alcohol or drug abuse patient.[facility] the event this information is protected by the Federal Confidentiality of Alcohol and Drug Abuse Patient Records regulations: The Federal rules restrict any use of the information to criminally investigate or prosecute any alcohol or drug abuse patient.[facility] Reason for Visit (unrecogniz ed section and content) Reason Comments Follow Up Pain ongoing generalized pain. Specialty Diagnoses / Procedures Referred By Contac t Referred To Contact RHEUMATOLOGY Diagnoses Follow Up Procedures OFFICE/OUTPATIENT ESTABLISHED MOD MDM 30-39 MIN Follow Up Gayle Washington MD [address] [place] [address] [facility] [address] [facility] [address] Referral ID Status Reason Start Date Expiration Date Visits Requested Visits Authorized [id number] Waiting for Response OON/Self Pay Override Patient cleared - OON Required Payment Collected 12/08/2021 03/08/2022 1 1 Reason Comments Appointment Reason Comments Results Specialty Diagnoses / Procedures Referred By Contac t Referred To Contact Diagnoses GERD (gastroesophageal reflux disease) GERD (gastroesophageal reflux disease) [K21.9] Procedures [place] ESOPHAGOGASTRODUODENOSCOPY TRANSORAL DIAGNOSTIC [place] EGD TRANSORAL BIOPSY SINGLE/MULTIPLE [place] EGD BALLOON DILATION ESOPHAGUS <30 MM DIAM ESOPHAGOGASTRODUODENOSCOPY Maximiliano You MD [address] [place] [address] [facility] [address] [place] [address] Referral ID Status Reason Start Date Expiration Date Visits Re quested Visits Authorized [id number] 1 1 Reason Onset Date Comments dsme 07/21/2024 Reason Comments DM Foot Care Pretty Garcia is a 54 y.o. female who presents for diabetic nail care. Patient would like to discuss possible removal of BL great toenails. Patient being monitored for Diabetes at this time. Dr. Velásquez 07/06/2024 BS 162 A1C 9.0. SS 7.5 Reason Comments Diabetes GI isabel lorenzo is no longer practicing and patient needs new GI referral, pt wondering if prioles and sulcrafte could be renewed by you in the meantime Reason Comments Foot Pain Pretty Garcia is a 54 y.o. female who presents for a lump on her left heel.Patient relates it is difficult to walk. Patient noticed 1 month ago. Patient recently diagnosed with diabetes type II. Dr. Velásquez 07/06/2024 BS 162 A1C 9.0. SS 7.5 Care Teams (unrecognized sec tion and content) Garment Form Assembler Relationship Specialty Start Date End Date Kimberley Gibbons DO [address] [place] [address] PCP - General Family Practice 06/04/21 Garment Form Assembler Relationship Specialty Start Date End Date Kimberley Gibbons, DO [address] [place] [address] PCP - General Family Practice 06/04/21 Garment Form Assembler Relationship Specialty Start Date End Date Kimberley Gibbons DO [address] [place] [address] PCP - General Family Medicine 06/04/21 Garment Form Assembler Relationship Specialty Start Date End Date Kimberley Gibbons DO [address] [place] [address] PCP - General Family Medicine 06/04/21 Garment Form Assembler Relationship Specialty Start Date End Date Kimberley Gibbons DO [address] [place] [address] PCP - General Family Medicine 06/04/21 Garment Form Assembler Relationship Specialty Start Date End Date Kimberley Gibbons DO [address] [place] [address] PCP - General Family Medicine 06/04/21 Garment Form Assembler Relationship Specialty Start Date End Date Hazel Velásquez MD [address] [place] [address] PCP - General Family Medicine 10/28/23 Garment Form Assembler Relationship Specialty Start Date End Date Hazel Velásquez MD [address] [place] [address] PCP - General Family Medicine 10/28/23 Garment Form Assembler Relationship Specialty Start Date End Date Hazel Velásquez MD [address] [place] [address] PCP - General Family Medicine 10/28/23 Garment Form Assembler Relationship Specialty Start Date End Date Hazel Velásquez MD [address] [place] [address] PCP - General Family Medicine 10/28/23 Garment Form Assembler Relationship Specialty Start Date End Date Hazel Velásquez MD [address] [place] [address] PCP - General Family Medicine 10/28/23 Garment Form Assembler Relationship Specialty Start Date End Date Hazel Velásquez MD [address] [place] [address] PCP - General Family Medicine 10/28/23 Garment Form Assembler Relationship Specialty Start Date End Date Hazel Velásquez MD [address] [place] [address] PCP - General Family Medicine 10/28/23 Garment Form Assembler Relationship Specialty Start Date End Date Hazel Velásquez MD [address] [place] [address] PCP - General Family Medicine 10/28/23 Daphney Hubbard MD [address] [place] [address] PCP - Medical [facility] 07/05/2407/04 Garment Form Assembler Relationship Specialty Start Date End Date Hazel Velásquez MD [address] [place] [address] PCP - General Family Medicine 10/28/23 Daphney Hubbard MD [address] [place] [address] PCP - Medical [place] 07/05/2407/04 Team Status: Active Member Role Status Dates NON STAFF Primary Care Provider Active Team Status: Inactive Member Role Status Dates Marc Rhoades , WAN SUPPORT SPECIALIST Attending Provider Active Start: September 04, 2024 End: September 04, 2024 Hazel Velásquez MD Referring Provider A ctive Start: September 04, 2024 End: September 04, 2024 NON STAFF Primary Care Provider Active Start: September 04, 2024 End: September 04, 2024 Garment Form Assembler Relationship Specialty Start Date End Date Hazel Velásquez MD [address] [place] [address] PCP - General Family Medicine 10/28/23 Daphney Hubbard MD [address] [place] [address] PCP - Medical [place] 07/05/2407/04 Garment Form Assembler Relationship Specialty Start Date End Date Hazel Velásquez MD [address] [place] [address] PCP - General Family Medicine 10/28/23 Daphney Hubbard MD [address] [place] [address] PCP - Medical [place] 07/05/2407/04 Garment Form Assembler Relationship Specialty Start Date End Date Hazel Velásquez MD [address] [place] [address] PCP - General Family Medicine 10/28/23 Daphney Hubbard MD [address] [place] [address] PCP - Medical [place] 07/05/2407/04 Garment Form Assembler Relationship Specialty Start Date End Date Hazel Velásquez MD [address] [place], [place] [id number] PCP - General Family Medicine 10/28/23 Daphney Hubbard MD [address] [place], [place] [id number] PCP - Medical [place] 07/05/2407/04 Scheduled Active and Recently Administ ered Medications [...] Central Line = 20 mL/lumen, PACU only Goals (unrecognized section and content) Goals may be documented in a n alternate section FOR RECORDS PERTAINING TO PATIENTS WHO ARE [...] BE BASED ON THE PRIMARY CLINICAL RECORDS. [employer] provides no warranty or guarantee of the accuracy or completeness of information in this document.
== END 2024-11-16 10:41 | disposition home or self-care (01) ==
PROVIDERS: Visit Provider Nurse Practitioner
DX: M47.816 Spondylosis without myelopathy or radiculopathy, lumbar region (principal); M46.1 Sacroiliitis, not elsewhere classified; M96.1 Postlaminectomy syndrome, not elsewhere classified; M79.18 Myalgia, other site
CPT/HCPCS: G0463

== ENCOUNTER 2025-02-19 09:37 | Day surgery (SDC) | payer MEDICARE, SELFPAY ==
--- OUTSIDE RECORDS SUMMARY | 2025-02-13 14:40 | XMS_ITS | Encounter Summary ---
Author Organization [facility] Address [address] [place] [address] Care Team Providers Care Registered Safety Engineer Name Role Phone Hazel Molina MD Primary Care Provider [phone] Daphney Hubbard MD Unavailable Reason for Visit * Reason Comments Diabetes Encounter Details Date Type Department Care Team (Late st Contact Info) Description 02/13/2025 2:40 PM EDT Office Visit [facility] Family Medicine [address] [place] [address] Hazel Molina MD [address] [place] [address] Nicotine abuse (Primary Dx); Type 2 diabetes mellitus without complication, without long-term current use of insulin (HCC); Nausea and vomiting, unspecified vomiting type; Memory loss; Marijuana smoker Social History Tobacco Use Types Packs/Day Years Used Date Smoking Tobacco: Former Cigarettes 0.5 40.1 S tarted: 07/05/1984 Alcohol Use Standard Drinks/Week Comments Not Currently 0 (1 standard drink = 0.6 oz pur e alcohol) Caffine: 2 cups daily AUDIT-C Answer Date Recorded Q1: How often do you have a drink containing alc ohol? 2-4 times a month 05/21/2023 Q2: How many drinks containi ng alcohol do you have on a typical day when you are drinking? 3 or 4 05/21/2023 Q3: How often do you have si x or more drinks on one occasion? Less than monthly 05/21/2023 PHQ-2 Answer Date Recorded Patient Health Questionnaire-2 Score 0 11/07/2024 Education Answer Date Recorded What is the highest level of school you have completed or the highest degree you have received? 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 file Not on file N ot on file documented as of this encounter Last Filed Vital Signs Vital Sign Reading Time Taken Comments Blood Pressure 122/80 02/13/2025 2:48 PM EDT Pulse 85 02/13/2025 2:48 PM EDT Temperature - - Respiratory Rate - - Oxygen Saturation 96% 02/13/2025 2:48 PM EDT Inhaled Oxygen Concentration - - Weight 88.4 kg (194 lb 12.8 oz) 02/13/2025 2:48 PM EDT Height 162.6 cm (5' 4 ) 02/13/2025 2:48 PM EDT Body Mass Index 33.44 02/13/2025 2:48 PM EDT documented in this encounter Progress Notes * Hazel Molina MD - 02/13/2025 2:40 PM EDTAssociated Problem(s): Marijuana smoker * Hazel Molina MD - 02/13/2025 2:40 PM EDT ppSubjective Patient ID: Pretty Garcia is a 54 y.o. female who presents for Diabetes. HPI History of Present Illness The patient presents for evaluation of diabetes management, back pain, and memory issues. She reports difficulty maintaining her health due to a busy schedule, which has impacted her diabetes management. She ran out of Ozempic 0.5 mg two weeks ago and experienced side effects such as dizziness and vomiting at night if she ate after a certain time. She also mentions vomiting in the morning. She is considering trying Mounjaro but is concerned about potential side effects and cost. She believes that avoiding late-night eating might help her condition. She recently got new glasses, and her eye doctor did not find any diabetes-related issues. She is experiencing increased back pain, which she attributes to her degenerative back condition. She does not believe it is related to a urinary tract infection or kidney infection. Her sister was recently diagnosed with stage 4 kidney failure, and she is unsure if this could be related to her own condition. She expresses concern about memory loss, stating that she often forgets things and sometimes completely loses track of what she was discussing. Alcohol: She does not consume alcohol. Recreational Drugs: She uses marijuana a couple of times a day for pain management. FAMILY HISTORY Her sister has been diagnosed with stage IV kidney failure. Objective BP 122/80 Pulse 85 Ht 5' 4 Wt 194 lb 12.8 oz SpO2 96% BMI 33.44 kg/m?? Physical Exam Physical Exam General Appearance: Normal. Vital signs: Within normal limits. HEENT: Within normal limits. Respiratory: Clear to auscultation, no wheezing, rales or rhonchi. Cardiovascular: regular rate and rhythm with no murmur. Extremities: no edema, palpable pulses. Skin: Warm and dry, no rash. Neurological: Normal. Psychiatric: Normal. Assessment & Plan Type 2 diabetes mellitus without complication, without long-term current use of insulin ([facility]) Orders: POCT Glycated hemoglobin, total Nicotine abuse Orders: nicotine (Nicoderm CQ) 14 MG/24HR patch; Place 1 patch over 24 hours on the skin 1 (one) time each day at the same time Nausea and vomiting, unspecified vomiting type Memory loss 29/30 on the MMSE. Marijuana smoker Assessment & Plan 1. Diabetes mellitus. - Her A1c level remains stable at 6.2, indicating good control of her diabetes. - Reported side effects from Ozempic 0.5 mg, including dizziness and vomiting, which led to discontinuation of the medication two weeks ago. - Chronic marijuana use could be contributing to her vomiting. - A trial of Mounjaro at the lowest dose will be initiated to see if it is better tolerated. If herinsurance does not approve Mounjaro, she will revert to the lowest dose of Ozempic. If vomiting persists on the low dose of Ozempic, alternative diabetic medications will be considered. 2. Back pain. - Reports increased back pain, which she attributes to her existing degenerative back condition. - No indication of a urinary tract infection or kidney infection. - GFR is 84, indicating normal kidney function. - No new treatment changes discussed for back pain management. 3. Memory issues. - Reports concerns about memory loss and forgetting things. - A memory test was conducted today, which yielded satisfactory results. - No new treatment changes discussed for memory issues. documented in this encounter Plan of Treatment Upcoming Encounters Date Type Department Care Team (Late st Contact Info) Description 04/06/2025 11:15 AM EDT [facility] [address] [place] [address] John Gauthier DPChristy [address] [place] [address] 05/17/2025 10:20 AM EST [facility] [address] [place] [address] Hazel Molina MD [address] [place], [place] [id number] documented as of this encounter Procedures Procedure Name Priority Date/Time Associated Diagnosis Comments POCT GLYCATED HEMOGLOBIN, TOTAL Routine 02/13/2025 2:58 PM EDT Type 2 diabetes mellitus without complication, without long-term current use of insulin ([facility]) documented in this encounter Results * POCT Glycated hemoglobin, total (02/13/2025 2:58 PM EDT) Hemoglobin A1C 6.2 Blood 02/13/2025 2:58 PM EDT Hazel Molina MD POINT OF CARE TEST ENTER/EDIT ORDERABLES Final Result documented in this encounter Visit Diagnoses Diagnosis Nicotine abuse- Primary Type 2 diabetes mellitus without complication, without long-term current use of insulin (HCC) Nausea and vomiting, unspecified vomiting type Memory loss Marijuana smoker documented in this encounter Additional Health Concerns Assessment Noted Time PHQ-9 Depression Total Score: 6 11/08/19 25 10:00 AM EDT documented as of this encounter Care Teams Registered Safety Engineer Relationship Specialty Start Date End Date Hazel Molina MD [address], [place] [id number] PCP - General Family Medicine 10/28/23 Daphney Hubbard MD [address], [place] [id number] PCP - Medical Anali CLARK 07/05/2407/04 documented as of this encounter
--- OUTSIDE RECORDS SUMMARY | 2025-02-19 09:41 | XMS_ITS | Encounter Summary ---
Author Organization [facility] Address [address] [place] [address] Care Team Providers Care Capital Equipment Specialist Name Role Phone Kimberley Morgan Primary Care Provider Unav ailable Source Comments In the event this information is protected by the Federal Confidentiality of Alcohol and Drug AbusePatient Records regulations: The Federal rules restrict any use of the information to criminally investigate or prosecute any alcohol or drug abuse patient.[facility] Encounter Details Date Type Department Care Team (Late st Contact Info) Description 06/23/2021 Get Medical Advice Rheumatology [address] [place] [address] Jailyn Cole MD [address] [place] [address] Right shoulder Social History Tobacco Use Types Packs/Day Years Used Date Smoking Tobacco: Every Day Cigarettes 1 1 Smokeless Tobacco: Never Alcohol Use Standard Drinks/Week Comments Yes 0 (1 standard drink = 0.6 oz pur e alcohol) rarely. Comments Unknown Sex and Gender Information Value Date Recorded Sex Assigned at Not on file Legal Sex Female 10:38 AM EDT Gender Identity Not on file Sexual Orientation Not on file COVID-19 Exposure Response Date Recorded In the last month, have you been in contact with someone who was confirmed or suspected to have Coronavirus / COVID-19? No / Unsure 06/04/2021 12:38 PM EST documented as of this encounter Plan of Treatment Not on file documented as of this encounter Visit Diagnoses Not on filedocumented in this encounter Care Teams Capital Equipment Specialist Relationship Specialty Start Date End Date Kimberley Morgan DO PCP - General Family Medicine 06/04/21 documented as of this encounter
--- OUTSIDE RECORDS SUMMARY | 2025-02-19 09:41 | XMS_ITS | Encounter Summary ---
Author Organization [facility] Address [address], [address] [place] [address] Care Team Providers Care Coal Sample Tester Name Role Phone Mark Tomas MD Primary Care Provider Unav ailable Reason for Visit * Reason Comments Medication Refill Encounter Details Date Type Department Care Team (Late st Contact Info) Description 08/28/2019 [facility]ill [facility] [address], [address] [place] [address] Femi Rosario MD Medication Refill Social History Tobacco Use Types Packs/Day Years Used Date Smoking Tobacco: Never Assessed Smokeless Tobacco: Never Comments Unknown Sex and Gender Information Value Date Recorded Sex Assigned at Not on file Legal Sex Female 10:59 AM EST Gender Identity Not on file Sexual Orientation Not on file documented as of this encounter Plan of Treatment Not on file documented as of this encounter Visit Diagnoses Diagnosis Lumbar radiculopathy Thoracic or lumbosacral neuritis or radiculitis, unspecified documented in this encounter Care Teams Coal Sample Tester Relationship Specialty Start Date End Date Mark Tomas MD PCP - General Family Medicine 04/12/20 09/12/23 documented as of this encounter
--- OUTSIDE RECORDS SUMMARY | 2025-02-19 09:41 | XMS_ITS | Encounter Summary ---
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 Not on file N ot on file documented as of this encounter Plan of Treatment Upcoming Encounters Date Type Department Care Team (Late st Contact Info) Description 04/06/2025 11:15 AM EDT Office Visit [facility] [address] [place] [address] John Gauthier, DPM [address] [place] [address] 05/17/2025 10:20 AM EST Office Visit [facility] [address] [facility] [place] [phone] Hazel Molina MD [address] [place] [address] documented as of this encounter Visit Diagnoses Not on filedocumented in this encounter Additional Health Concerns Assessment Noted Time PHQ-9 Depression Total Score: 6 11/08/19 25 10:00 AM EDT documented as of this encounter Care Teams Spinning Frame Tender Relationship Specialty Start Date End Date Hazel Molina MD [address] [facility] [place] [address] PCP - General Family Medicine 10/28/23 Daphney Hubbard MD [address] [facility] [place] [address] PCP - Medical [place] MA 07/05/2407/04 documented as of this encounter
--- OUTSIDE RECORDS SUMMARY | 2025-02-19 09:41 | XMS_ITS ---
Author Organization [facility] Address [address] [place] [address] Care Team Providers Care Shadow Graph Weight Operator Name Role Phone Hazel Molina MD Primary Care Provider [phone] Daphney Hubbard MD Unavailable Diabetes Self-Management Education Status:Enrolled (Active) Start date:07/25/2024 Enrollment date:07/25/2024 Current support & services provided:Type 2 Diabetes Management Related social drivers of health:Tobacco Use, Stress, Physical Activity Overview The Diabetes Self-Management Education program is designed to help patients manage their diabetes or prediabetes. Case Team Name Relationship Phone Lukas Luz RN(Responsible Staff) Registered Nurse Continued Care and Services Coordination
--- OUTSIDE RECORDS SUMMARY | 2025-02-19 09:41 | XMS_ITS | Encounter Summary ---
Author Organization [facility] Address [address] [place] [address] Care Team Providers Care Digital Content Coordinator Name Role Phone Kimberley Morgan DO Primary Care Provider Unav ailable Source Comments In the event this information is protected by the Federal Confidentiality of Alcohol and Drug AbusePatient Records regulations: The Federal rules restrict any use of the information to criminally investigate or prosecute any alcohol or drug abuse patient.[facility] Encounter Details Date Type Department Care Team (Late st Contact Info) Description 12/30/2021 Patient Msg Internal Medicine [address] [address] Provider, [facility] confidential Social History Tobacco Use Types Packs/Day Years Used Date Smoking Tobacco: Every Day Cigarettes 1 1 Smokeless Tobacco: Never Alcohol Use Standard Drinks/Week Comments Yes 0 (1 standard drink = 0.6 oz pur e alcohol) rarely. Area Deprivation Index Answer Date [place] rded National Score (1-100), lower number is lower ri sk 95 12/12/2021 State Score (1-10), lower number is lower risk N ot on file 12/12/2021 Data from: https://www.neighborhoodatlas.medicine.[facility].edu/. Last address used for calculation [address] [place] [address] 12/12/2021 Comments Unknown Sex and Gender Information Value Date Recorded Sex Assigned at Not on file Legal Sex Female 10:38 AM EDT Gender Identity Not on file Sexual Orientation Not on file COVID-19 Exposure Response Date Recorded In the last 10 days, have yo u been in contact with someone who was confirmed or suspected to have Coronavirus/COVID-19? Unable to assess 12/09/2021 2:38 PM EDT documented as of this encounter Plan of Treatment Not on file documented as of this encounter Visit Diagnoses Not on filedocumented in this encounter Care Teams Digital Content Coordinator Relationship Specialty Start Date End Date Kimberley Morgan DO PCP - General Family Medicine 06/04/21 documented as of this encounter
--- OUTSIDE RECORDS SUMMARY | 2025-02-19 09:41 | XMS_ITS | Encounter Summary ---
Author Organization [facility] Address [address] [place] [address] Care Team Providers Care Diesel Engine Inspector Name Role Phone Kimberley Morgan Primary Care Provider Unav ailable Source Comments In the event this information is protected by the Federal Confidentiality of Alcohol and Drug AbusePatient Records regulations: The Federal rules restrict any use of the information to criminally investigate or prosecute any alcohol or drug abuse patient.[facility] Encounter Details Date Type Department Care Team (Late st Contact Info) Description 12/15/2021 Get Medical Advice Rheumatology [address] [place], [place] [phone] Jailyn Cole MD [address] [place] [address] Records Social History Tobacco Use Types Packs/Day Years [...] N ot on file 12/12/2021 Data from: https://www.neighborhoodatlas.medicine.[facility].edu/. Last address used for calculation [address] [place] [address] 12/12/2021 Comments Unknown Sex and Gender [...] PM EDT documented as of this encounter Miscellaneous Notes * Telephone Encounter - Nadine Bruce LPN - 12/16/2021 8:18 AM EDT I believe she is referencing her previous [employer] message and is requesting that fibromyalgia be added to her diagnosis list. Chronic pain syndrome is already listed as diagnosis. documented in this encounter Plan of Treatment Not on file documented as of this encounter Visit Diagnoses Not on filedocumented in this encounter Care Teams Diesel Engine Inspector Relationship Specialty Start Date End Date Kimberley Morgan DO PCP - General Family Medicine 06/04/21 documented as of this encounter
--- OUTSIDE RECORDS SUMMARY | 2025-02-19 09:41 | XMS_ITS | Encounter Summary ---
Author Organization [facility] Address [address] [place] [address] Care Team Providers Care Umbrella Tipper Hand Name Role Phone Kimberley Morgan Primary Care Provider Unav ailable Source Comments In the event this information is protected by the Federal Confidentiality of Alcohol and Drug AbusePatient Records regulations: The Federal rules restrict any use of the information to criminally investigate or prosecute any alcohol or drug abuse patient.[facility] Encounter Details Date Type Department Care Team (Late st Contact Info) Description 12/08/2021 Patient Msg Rheumatology [address] [place] [address] Jailyn Cole MD [address] [place] [address] Request an Appointment Social History Tobacco Use Types Packs/Day Years [...] N ot on file 12/12/2021 Data from: https://www.neighborhoodatlas.medicine.[facility].edu/. Last address used for calculation [address] [place] [address] 12/12/2021 Comments Unknown Sex and Gender [...] on filedocumented in this encounter Care Teams Umbrella Tipper Hand Relationship Specialty Start Date End Date Kimberley Morgan DO PCP - General Family Medicine 06/04/21 documented as of this encounter
--- OUTSIDE RECORDS SUMMARY | 2025-02-19 09:41 | XMS_ITS | Clinical Summary ---
Author Organization [facility] Address [address], [address] [place] [address] Care Team Providers Care Radiology Physician Assistant Name Role Phone Unavailable Primary Care Provider Unavailabl e Allergies Active Allergy Reactions Criticality Noted Date Comments Ibuprofen Diarrhea 04/16/2020 Tramadol Nausea Only 06/05/2019 Medications clonazePAM (KLONOPIN) 0.5 MG tablet nightly. 0 Active lamoTRIgine (LAMICTAL) 200 MG tablet Take 1.5 tablets by mouth nightly Active QUEtiapine (SEROQUEL) 50 MG tablet Take 2 tablets by mouth nightly Active b complex vitamins capsule Take 1 capsule by mouth daily Active [place]-3 Fatty Acids (FISH OIL) 1200 MG CAPS Take by mouth daily Active loratadine (CLARITIN) 10 MG capsule Take 1 capsule by mouth daily Active SENNA CO as needed 0 Active amLODIPine (NORVASC) 5 MG tablet Take 1 tablet by mouth nightly 0 Active fluticasone (VERAMYST) 27.5 MCG/SPRAY nasal spray by Each Nostril route daily Active aspirin 81 MG EC tablet Take 1 tablet by mouth every morning 1 Active atorvastatin (LIPITOR) 80 MG tablet 4 Active cyclobenzaprine (FLEXERIL) 10 MG tablet 3 Active desvenlafaxine succinate (PRISTIQ) 100 MG TB24 extended release tablet 3 Active metoprolol succinate (TOPROL XL) 25 MG extended release tablet Take 1 tablet by mouth 3 Active ezetimibe (ZETIA) 10 MG tablet Take 1 tablet by mouth daily Active sucralfate (CARAFATE) 1 GM tablet Take 1 tablet by mouth 4 times daily 120 tablet 1 4 Active omeprazole (PRILOSEC) 20 MG delayed release capsule TAKE ONE CAPSULE BY MOUTH EVERY MORNING BEFORE BREAKFAST 30 capsule 1 4 Active ELIQUIS 2.5 MG TABS tablet Take 1 tablet by mouth 2 times daily 4 Active gabapentin (NEURONTIN) 300 MG capsule Take 1 capsule by mouth daily. Active Active Problems Problem Noted Date Diagnosed Date History of gastric ulcer 06/09/2024 History of Sloan's esophagus 06/09/2024 Spondylolisthesis of lumbar region 06/25/2020 Lumbar stenosis 06/18/2020 Tobacco use disorder 06/18/2020 Tachycardia 04/16/2020 Resolved Problems Problem Noted Date Diagnosed Date Resolved Date GERD (gastroesophageal reflux disease) 05/22/2024 06/09/2024 Immunizations Immunization Administration Dates Next Due Influenza, FLUARIX, FLULAVAL , FLUZONE (age 6 mo+) and AFLURIA, (age 3 y+), Quadv PF, 0.5mL 04/06/2019 Influenza, Intradermal, Preservative free 2015 Family History Medical History Relation Name Comments COPD Brother 1 x 1 COPD Brother 2 x 1 No Known Problems Daughter x 2 Heart Attack Father MD at age 52 Other Father acromegaly Diabetes Mother High Blood Pressure Mother No Known Problems Sister x 2 Relation Name Status Comments Brother 1 x 1 Alive Brother 2 x 1 Daughter x 2 Alive Father Mother Alive Sister x 2 Alive Son none Social History Tobacco Use Types Packs/Day Years Used Date Smoking Tobacco: Every Day Cigarettes 0.5 37 Smokeless Tobacco: Never Tobacco Cessation:Ready to Q uit: No; Counseling Given: No Comments:intermittently since 13 Alcohol Use Standard Drinks/Week Comments Yes 0 (1 standard drink = 0.6 oz pur e alcohol) hardly ever PHQ-2 Answer Date Recorded PHQ-9 Total Score 0 05/03/2020 Hunger Vital Sign Answer Date Recorded Within the past 12 months, y ou worried that your food would run out before you got the money to buy more. Never true 05/03/20 20 Within the past 12 months, t he food you bought just didn't last and you didn't have money to get more. Never true 05/03/2020 PRAPARE - Transportation Answer Date Re corded In the past 12 months, has l ack of transportation kept you from medical appointments or from getting medications? No 04/06 In the past 12 months, has l ack of transportation kept you from meetings, work, or from getting things needed for daily living? No 05/03/2020 Interpersonal Safety Domain Source: IP Abuse Scr eening Answer Date Recorded Physical abuse Denies 06/09/2024 Verbal abuse Denies 06/09/2024 Emotional abuse Denies 06/09/2024 Financial abuse Denies 06/09/2024 Sexual abuse Denies 06/09/2024 Comments No Sex and Gender Information Value Date Recorded Sex Assigned at Not on file Legal Sex Female 10:59 AM EST Gender Identity Not on file Sexual Orientation Not on file Last Filed Vital Signs Vital Sign Reading Time Taken Comments Blood Pressure 151/93 06/09/2024 11:15 AM EST Pulse 90 06/09/2024 11:15 AM EST Temperature 36.1 C (96.9 F) 06/09/2024 10:45 AM EST Respiratory Rate 20 06/09/2024 11:15 AM EST Oxygen Saturation 95% 06/09/2024 11:15 AM EST Inhaled Oxygen Concentration - - Weight 98.4 kg (217 lb) 06/09/2024 9:48 AM EST Height 162.6 cm (5' 4 ) 06/09/2024 9:48 AM EST Body Mass Index 37.25 06/09/2024 9:48 AM EST Plan of Treatment Health Maintenance Due Date Last Done Comments Lipids 1978 Depression Screen 1980 HIV screen 1983 Hepatitis C screen 1986 DTaP/Tdap/Td vaccine (1 - Tdap) 1987 Hepatitis B vaccine (1 of 3 - 19+ 3-dose series) 1987 Pneumococcal 50+ years Vaccine (1 of 2 - PCV) 1987 Diabetes screen 2003 Colonoscopy 2013 FIT/FOBT: Average risk 2013 Sigmoidoscopy/CT colonography 2013 Shingles vaccine (1 of 2) 2018 COVID-19 Vaccine (2 - season) 2024 06/26/2021 Breast cancer screen 07/01/2024 07/01/2022, 06/17/2021, 06/17/2020, Additional history exists Flu vaccine (#1) 02/02/2025 04/06/2019, 05/15/2016 Colorectal Cancer Screen 03/16/2026 Fecal-DNA (Cologuard): Average risk 03/16/2026 03/16/2023, 01/19/2019 Hepatitis A vaccine Aged Out No longe r eligible based on patient's age to complete this topic Hib vaccine Aged Out No longer eligi ble based on patient's age to complete this topic Meningococcal (ACWY) vaccine Aged Out No longer eligible based on patient's age to complete this topic Meningococcal B vaccine Aged Out No l onger eligible based on patient's age to complete this topic Polio vaccine Aged Out No longer elig ible based on patient's age to complete this topic Medical Devices Implanted Type Area Charge Histotechnologist Device Identifier Shelf Expiration Date Model / Serial / Lot Impl Peter Spine Reline Ti35 Mm 55 Mm Implanted:Qty: 1 on 06/25/2020 by Femi Rosario MD at [facility] Spine N/A: Spine Lumbar [employer]-PMM [id number] / / Graft Spnl [id number] Corticocancellous Lord Triad - [id number] Implanted:Qty: 1 on 05/09/2020 by Femi Rosario MD at [facility] N/A: Spine Cervical [employer]-WD 05/08/2024 [id number] / [id number] / Plate Spnl L28mm Antr Cerv 1 Lev Translational [place] Acp Implanted:Qty: 1 on 05/09/2020 by Femi Rosario MD at [facility] N/A: Spine Cervical [employer]-WD [id number] / / Screw Spnl L13mm Dia4mm Ant Cerv [place] Ang Compr [place] Acp Implanted:Qty: 4 on 05/09/2020 by Femi Rosario MD at [facility] N/A: Spine Cervical [employer]-WD [id number] / / Connector Spnl Crss Lo Prof Adj Reline-O 5.5 X 45-65 Mm Implanted:Qty: 1 on 06/25/2020 by Femi Rosario MD at [facility] N/A: Spine Lumbar [employer]-WD [id number] / / Screw Spnl Dia5.5mm Opn Tulip Roselyn Reline Implanted:Qty: 4 on 06/25/2020 by Femi Rosario MD at [facility] N/A: Spine Lumbar [employer]- [id number] / / Graft Bne Sub 30cc 1.7-10mm Canc Chip Morselized Frz Dry - [id number] Implanted:Qty: 1 on 06/25/2020 by Femi Rosario MD at [facility] N/A: Spine Lumbar [employer]- 02/27/2023 [id number] / [id number] / Graft Bne Sub 5ml Mtrx Cellular Osteocel + - [id number] Implanted:Qty: 1 on 06/25/2020 by Femi Rosario MD at [facility] N/A: Spine Lumbar [employer]- 06/13/2024 [id number] / [id number] / Spacer Spnl L [id number] 4deg Post Lum Intbdy Fus Lord Implanted:Qty: 2 on 06/25/2020 by Femi Rosario MD at [facility] N/A: Spine Lumbar [employer]-WD [id number] / / Screw Spnl L50mm Dia7.5mm Post Thoracolumbosacral Polyax 2s Implanted:Qty: 2 on 06/25/2020 by Femi Rosario MD at [facility] N/A: Spine Lumbar [employer]-WD [id number] / / Screw Spnl L55mm Od6mm 2s Polyax Reline O Implanted:Qty: 2 on 06/25/2020 by Femi Rosario MD at [facility] N/A: Spine Lumbar [employer]-WD [id number] / / Peter Spnl Lordtc 5.5x40 Mm Ti Reline-O Implanted:Qty: 1 on 06/25/2020 by Femi Rosario MD at [facility] N/A: Spine Lumbar [employer]-WD [id number] / / Clip Endoscp 235cm Resol 360 Order Uom Is Each - [id number] Implanted:Qty: 1 on 02/03/2024 by Nancy Durand MD at [facility] N/A: [facility] SCIENTIFIC-WD [id number] / / Insurance Quibly TIAGO Advance Directives * Full Code (Latest Code Status on File) Date Activated Date Inactivated Comments 06/25/2020 2:09 PM 06/27/2020 8:24 PM
--- OUTSIDE RECORDS SUMMARY | 2025-02-19 09:41 | XMS_ITS | Encounter Summary ---
Author Organization [facility] Address [address] [place] [address] Care Team Providers Care Construction Flagger Name Role Phone Kimberley Morgan Primary Care Provider Unav ailable Source Comments In the event this information is protected by the Federal Confidentiality of Alcohol and Drug AbusePatient Records regulations: The Federal rules restrict any use of the information to criminally investigate or prosecute any alcohol or drug abuse patient.[facility] Encounter Details Date Type Department Care Team (Late st Contact Info) Description 12/15/2021 Get Medical Advice Rheumatology [address] [place], [place] [phone] Jailyn Cole MD [address] [place] [address] Fibromyalgia Social History Tobacco Use Types Packs/Day Years [...] N ot on file 12/12/2021 Data from: https://[email or web address].medicine.[email or web address].[email or web address] Last address used for calculation [address] [place] [address] 12/12/2021 Comments Unknown Sex and Gender [...] on filedocumented in this encounter Care Teams Construction Flagger Relationship Specialty Start Date End Date Kimberley Morgan DO PCP - General Family Medicine 06/04/21 documented as of this encounter
--- OUTSIDE RECORDS SUMMARY | 2025-02-19 09:41 | XMS_ITS | Clinical Summary ---
Author Organization [employer] Address [id number] [address] [place] [address] Care Team Providers Care Defect Repairer Glassware Name Role Phone Kimberley Morgan DO Primary Care Provider Unavaila ble Allergies Active Allergy Reactions Criticality Noted Date Comments Ibuprofen GI Disturbance 04/16/2020 Tramadol Nausea 06/05/2019 Medications QUEtiapine (SEROquel) 50 mg tablet Take 200 mg by mouth nightly. 2 tabs nightly Active doxycycline (VIBRAMYCIN) 100 mg capsule Take 100 mg by mouth 2 (two) times a day. Active lamoTRIgine (LaMICtal) 200 mg tablet Take 300 mg by mouth daily. Active clonazePAM (KlonoPIN) 0.5 mg tablet Take 0.5 mg by mouth 2 (two) times a day as needed for seizures. Active celecoxib (CeleBREX) 200 mg capsule Take 200 mg by mouth daily. Active gabapentin (NEURONTIN) 100 mg capsule Take 200 mg by mouth 2 (two) times a day. Active estradiol (ESTRACE) 0.5 mg tablet Take 0.5 mg by mouth daily. Active B-complex with vitamin C tablet Take 1 tablet by mouth daily. Active fnbkvvjj-tdug-T A-calcium &mins (THERAGRAN-M) 9 mg iron-400 mcg tablet Take 1 tablet by mouth daily. Active fiitt-xj-3-dha- gqv-paaqnfs-pkl 1,629-517-45-80 mg capsule Take by mouth. Fish oil Active acetaminophen (TYLENOL) 325 mg tablet Take 650 mg by mouth every 6 (six) hours as needed for pain. Active meloxicam (MOBIC) 15 mg tablet Take 15 mg by mouth daily. Active amLODIPine (NORVASC) 5 mg tablet Take 1 tablet (5 mg total) by mouth daily. 90 tablet 3 1 Active pregabalin (LYRICA) 300 mg capsule Take 300 mg by mouth daily. Active loratadine (CLARITIN) 10 mg tablet Take 10 mg by mouth daily. Active aspirin 81 mg Take 81 mg by mouth daily. Active metroNIDAZOLE (METROGEL) 0.75 % vaginal gel Insert 1 applicator into the vagina. 2 times a week Active oxyCODONE-aceta minophen (PERCOCET) 5-325 mg per tablet Take 1 tablet by mouth every 4 (four) hours as needed for pain. Active fluticasone propionate (FLONASE) 50 mcg/actuation nasal spray Administer 1 spray into each nostril daily. Active Active Problems Problem Noted Date Diagnosed Date Essential hypertension 11/26/2020 Tachycardia 04/16/2020 Family History Medical History Relation Name Comments Acromegaly Father Heart disease Father Atrial fibrillation Maternal Aunt COPD Mother Diabetes Mother Hypertension Mother Mental illness Mother Relation Name Status Comments Father Maternal Aunt Mother Alive Social History Tobacco Use Types Packs/Day Years Used Date Smoking Tobacco: Every Day Cigarettes Last attempted to quit: 06/15/2014 Smokeless Tobacco: Never Tobacco Cessation:Counseling Given: No Alcohol Use Standard Drinks/Week Comments Yes 0 (1 standard drink = 0.6 oz pur e alcohol) social AUDIT-C Answer Date Recorded Frequency of Alcohol Consumption 2-4 times a wed06/15/2018 Average Number of Drinks 1 or 2 018 Frequency of Binge Drinking Not on file 06/04 Childcare Answer Date Recorded Childcare Unknown 12/14/2018 Employment Answer Date Recorded Employment Unknown 12/14/2018 Purpose - Life Answer Date Recorded Purpose and direction in life Unknown Comments No Sex and Gender Information Value Date Recorded Sex Assigned at Not on file Legal Sex Female 11:28 AM EDT Gender Identity Not on file Sexual Orientation Not on file Last Filed Vital Signs Vital Sign Reading Time Taken Comments Blood Pressure 121/83 11/26/2020 11:39 AM EDT Pulse 98 11/26/2020 11:39 AM EDT Temperature 36.3 C (97.3 F) 06/05/2019 1:09 PM EST Respiratory Rate 22 06/05/2019 1:38 PM EST Oxygen Saturation 97% 11/26/2020 11:39 AM EDT Inhaled Oxygen Concentration - - Weight 86.2 kg (190 lb) 11/26/2020 11:39 AM EDT Height 162.6 cm (5' 4 ) 11/26/2020 11:39 AM EDT Body Mass Index 32.61 11/26/2020 11:39 AM EDT Plan of Treatment Health Maintenance Due Date Last Done Comments Depression Screening 1980 Tobacco Screening 1980 Adult BMI Screening 1986 DTaP,Tdap and Td Vaccines (1 - Tdap) 1987 Zoster (Shingles) Vaccine (1 of 2) 2018 Influenza Vaccine 03/05/2025 04/06/2019, 05/15/2016 Medical Devices Implanted Type Area Account Engineer Device Identifier Shelf Expiration Date Model / Serial / Lot Incv/Swivelock 4.75 Use [id number] - Sna - [id number] Implanted:Qty: 1 on 06/05/2019 by Yovani Owusu DO at [facility] [place] Right: Shoulder Arthrex 11/01/2020 [id number] / [id number] / [id number] Insurance [employer] Care Teams Defect Repairer Glassware Relationship Specialty Start Date End Date Kimberley Morgan DO PCP - General Family Medicine 5/25/21
--- OUTSIDE RECORDS SUMMARY | 2025-02-19 09:41 | XMS_ITS | Encounter Summary ---
Author Organization [facility] Address [address] [place] [address] Care Team Providers Care Rail Car Repairman Name Role Phone Kimberley Morgan DO Primary Care Provider [phone] Daphney Hubbard MD Primary Care Provider [phone] Reason for Visit * Reason Comments Med Refill Encounter Details Date Type Department Care Team (Late st Contact Info) Description 07/30/2023 Refill [facility] Cardiology [address] [place] [address] Elodia Kulkarni, MEDICAL RECORD ASSISTANT [address] [facility] [place] [address] Mixed hyperlipidemia; Coronary artery disease involving on[place]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[place]aga heart without angina pectoris Social History Tobacco Use Types Packs/Day Years Used Date Smoking Tobacco: Former Cigarettes 0.5 30 0 02/1993 - 02/2023 Smokeless Tobacco: Never Alcohol Use Standard Drinks/Week Comments Not Currently 0 (1 standard drink = 0.6 oz pur e alcohol) PHQ-2 Answer Date Recorded Patient Health Questionnaire-2 Score 2 06/22/2023 Comments Unknown Sex and Gender Information Value Date Recorded Sex Assigned at Female 01/20/2023 9:13 PM EDT Legal Sex Female 10:52 AM EDT Gender Identity Female 01/20/2023 9:13 PM EDT Sexual Orientation Heterosexual or Straight 01/02 9:13 PM EDT documented as of this encounter Plan of Treatment Upcoming Encounters Date Type Department Care Team (Late st Contact Info) Description 04/10/2025 2:45 PM EDT Office Visit [facility] [address] [place] [address] Esteban Estrada MD [address] [place] [address] documented as of this encounter Visit Diagnoses Diagnosis Mixed hyperlipidemia 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
--- OUTSIDE RECORDS SUMMARY | 2025-02-19 09:41 | XMS_ITS | Encounter Summary ---
Author Organization [facility] Address [address] [place] [address] Care Team Providers Care Rn Occupational Health Name Role Phone Kimberley Morgan Primary Care Provider Unav ailable Source Comments In the event this information is protected by the Federal Confidentiality of Alcohol and Drug AbusePatient Records regulations: The Federal rules restrict any use of the information to criminally investigate or prosecute any alcohol or drug abuse patient.[facility] Encounter Details Date Type Department Care Team (Late st Contact Info) Description 06/12/2021 Get Medical Advice Rheumatology [address] [place], [place] [phone] Jailyn Cole MD [address] [place] [address] [facility] Social History Tobacco Use Types Packs/Day Years [...] PM EST documented as of this encounter Miscellaneous Notes * Telephone Encounter - Regina Vigil MA - 06/13/2021 11:17 AM EST [email or web address]. * Telephone Encounter - Jailyn Cole MD - 06/12/2021 2:40 PM EST Please obtain xray results of neck, shoulder, back as requested from [facility] Will review when received Thank you. documented in this encounter Plan of Treatment Not on file documented as of this encounter Visit Diagnoses Not on filedocumented in this encounter Care Teams Rn Occupational Health Relationship Specialty Start Date End Date Kimberley Morgan DO PCP - General Family Medicine 06/04/21 documented as of this encounter
--- OUTSIDE RECORDS SUMMARY | 2025-02-19 09:41 | XMS_ITS | Clinical Summary ---
Author Organization [facility] Address [address] [place] [address] Care Team Providers Care Riprap Placer Name Role Phone Daphney Hubbard MD Primary Care Provider [phone] Allergies Active Allergy Reactions Criticality Noted Date Comments Ibuprofen Diarrhea,Other,Unknown 04/16/2020 Upset stomach Tramadol Unknown,Nausea Only 06/05/2019 Upset stomach Medications acyclovir (Zovirax) 400 mg tablet 3 Active aspirin 81 mg EC tablet Take 81 mg by mouth in the morning. 1 Active clonazePAM (KlonoPIN) 0.5 mg tablet Take 0.5 mg by mouth if needed in the morning and at bedtime. 0 Active desvenlafaxine (Pristiq) 100 mg 24 hr tablet 3 Active fluticasone (Flonase) 50 mcg/actuation nasal spray Administer 1 spray into affected nostril(s) in the morning. Active lamoTRIgine (LaMICtal) 200 mg tablet Take 300 mg by mouth in the morning. Active multivitamin (Theragran-M) 9 mg iron-400 mcg tablet Take 1 tablet by mouth in the morning. Active QUEtiapine (SEROquel) 400 mg tablet Take 400 mg by mouth at bedtime. 3 Active cyclobenzaprine (Flexeril) 10 mg tabletIndications: Fibromyalgia Take 1 tablet (10 mg) by mouth if needed in the morning and at bedtime for muscle spasms. 60 tablet 6 3 Active lamoTRIgine (LaMICtal) 100 mg tablet 3 Active Eliquis 2.5 mg tablet Take 2.5 mg by mouth two times daily. 4 Active gabapentin (Neurontin) 300 mg capsule 4 Active amLODIPine (Norvasc) 10 mg tabletIndications: Benign essential HTN Take 1 tablet (10 mg) by mouth in the morning. 90 tablet 3 4 025 Active atorvastatin (Lipitor) 80 mg tabletIndications: Mixed hyperlipidemia Take 1 tablet (80 mg) by mouth in the morning. 90 tablet 3 4 Active ezetimibe (Zetia) 10 mg tabletIndications: Mixed hyperlipidemia,Cor onary artery disease involving [place] coronary artery of [place] heart without angina pectoris Take 1 tablet (10 mg) by mouth in the morning. 90 tablet 3 4 Active metFORMIN (Glucophage) 500 mg tablet Take 500 mg by mouth with breakfast. 5 Active omeprazole (PriLOSEC) [address] capsule Take 20 mg by mouth. 5 Active Ozempic 0.25 mg or 0.5 mg (2 mg/3 mL) pen injector Inject 0.5 mg under the skin every 7 (seven) days. 5 Active metoprolol succinate XL (Toprol-XL) 50 mg 24 hr tabletIndications: Benign essential HTN,Chest pain, atypical Take 1 tablet (50 mg) by mouth in the morning. Do not crush or chew. 90 tablet 3 5 026 Active Active Problems Problem Noted Date Diagnosed Date History of Sloan's esophagus 06/09/2024 History of gastric ulcer 06/09/2024 Osteopenia 06/22/2023 NSAID long-term use 06/22/2023 Degenerative joint disease involving multiple ashli ints 04/27/2023 Current use of estrogen therapy 02/11/2023 Marijuana smoker 02/11/2023 Overview (05/04/2024): recommended smoking cessation, advised this is likely worsening recurrent oral lesion, encouraged f/u with dentist as well S/P hysterectomy 02/11/2023 Overview (05/04/2024): pap smear screening not recommended Coronary artery disease invo lving [place] coronary artery of [place] heart without angina pectoris 02/10/2023 Overview (02/10/2023): 01/2023 CORONARY FINDINGS: LMCA - This vessel arises from the left coronary cusp and bifurcates into the left anterior descending and left circumflex coronary arteries. It is angiographically patent and without significant stenosis. LAD - There 40-50% stenosis in the mid portion of the vessel. Otherwise, the LAD is angiographically patent and without significant stenosis. LCX - There is 30-40% stenosis in the mid portion of the Lcx. Otherwise the vessel is angiographically patent and without significant stenosis. RCA - This arises from the right coronary cusp. It is a dominant vessel giving rise to a PDA and PLB branch. It is angiographically patent and without significant stenosis. Assessment & Plan (02/10/2023 12:30 PM EDT): Coronary artery disease is stable Continue GDMT- ASA, lipitor, toprol continue risk factor modifications- heart healthy diet, regular exercise as tolerated and continue all medications. Pt to have repeat lipid and lft levels drawn soon Tongue ulcer 02/08/2023 Cigarette smoker 01/19/2023 Lesion of oral mucosa 01/19/2023 BMI 30.0-30.9,adult 01/19/2023 Prediabetes 01/19/2023 Seasonal allergic rhinitis 01/19/2023 Abnormal nuclear stress test 01/13/2023 Assessment & Plan (01/13/2023 2:36 PM EDT): Ordered heart cath Unstable angina 01/13/2023 Assessment & Plan (02/10/2023 12:22 PM EDT): Currently denied chest pain Assessment & Plan (01/13/2023 2:36 PM EDT): Plan for cardiac cath- orders placed Pt updated Chest pain, atypical 12/01/2022 Assessment & Plan (01/13/2023 2:35 PM EDT): Abnormal stress with reversible perfusion defect Will order cardiac cath to assess for any significant coronary stenosis that would correlate with her Unstable Angina symptoms. Assessment & Plan (12/01/2022 4:25 PM EDT): EKG today normal sinus rhythm- no acute concerns ASCVD- 22% risk of CVD, or 10 year risk of CVD with optimal risk factor medication= 1.2%; lifetime risk 50% Will obtain treadmill cardiolite stress test for ischemic evaluation and echocardiogram for evaluation of cardiac function/valvular function and Rt sided pressures Continue ASA and will add toprol today. [facility]waiting labs from [facility] for lipid profile and liver function Benign essential HTN 12/01/2022 Assessment & Plan (02/10/2023 12:21 PM EDT): Hypertension is stable and well controlled at home Continue norvasc, toprol Assessment & Plan (01/13/2023 2:34 PM EDT): Continue meds Assessment & Plan (12/01/2022 2:20 PM EDT): Hypertension is uncontrolled 149/96 will add metoprolol to amlodipine 10 mg She is to take b/p at home and goal b/p 130/80 or less, keep a b/p log and bring to next appt. May benefit from tiffany I or Arb if renal function is normal HOFFMAN (dyspnea on exertion) 12/01/2022 Assessment & Plan (02/10/2023 12:22 PM EDT): Currently stable Assessment & Plan (01/13/2023 2:38 PM EDT): Noted reversible perfusion, and unstable angina with HOFFMAN therefore heart cath ordered No acute concerns noted on echocardiogram- normal LVSF, normal RV function and no significant valvular abnormalities Assessment & Plan (12/01/2022 2:22 PM EDT): Increased SOB on exertion, elevated D dimer- and PCP ordered CTA chest to r/o PE with known Factor - unknown if she is Carrier or active Echocardiogram ordered Fibromyalgia 12/01/2022 Assessment & Plan (12/01/2022 2:23 PM EDT): F/u with PCP for chronic pain/myalgia issues Elevated d-dimer 12/01/2022 Assessment & Plan (12/01/2022 2:24 PM EDT): Re-ordered CTA chest to r/o PE with elevated D Dimer, HOFFMAN and increased fatigue Mixed hyperlipidemia 12/01/2022 Assessment & Plan (02/10/2023 12:21 PM EDT): Continue lipitor 80 mg, lipid level well controlled currently Assessment & Plan (01/13/2023 2:35 PM EDT): Continue statin GERD without esophagitis 12/01/2022 Assessment & Plan (02/10/2023 12:23 PM EDT): D/W pt that may need to see GI for further evaluation for other etiology of her chest pain and may be r/t GERD Assessment & Plan (12/01/2022 3:36 PM EDT): Stop OTC nexium and start pantoprazole and f/u with PCP for further management Orthopnea 12/01/2022 Assessment & Plan (12/01/2022 3:36 PM EDT): + orthopnea and sleep disturbances will order sleep study Sleep disturbances 12/01/2022 Assessment & Plan (12/01/2022 3:39 PM EDT): Sleep study referral Vitamin D deficiency 12/12/2021 Soft tissue swelling 06/06/2021 Bilateral hand pain 06/05/2021 Chronic hip pain, bilateral 06/05/2021 Chronic pain of both knees 06/05/2021 Elevated C-reactive protein (CRP) 06/05/2021 Internal derangement of right knee 09/18/2020 Spondylolisthesis of lumbar region 06/25/2020 Lumbar stenosis 06/18/2020 Tobacco use disorder 06/18/2020 Tachycardia 04/16/2020 Other specific joint derange ments of right shoulder, not elsewhere classified 01/10/2020 Factor 5 Leiden mutation, heterozygous 0 Seasonal allergies 12/18/2019 High blood pressure 05/11/2019 Hidradenitis axillaris 05/09/2019 TMJ (temporomandibular joint syndrome) 9 Full thickness rotator cuff tear 03/29/2019 PVCs (premature ventricular contractions) 2017 Mixed incontinence, urge and stress (male) (fema le) 02/15/2018 Pelvic floor relaxation 02/15/2018 Uterovaginal prolapse 09/09/2017 Bipolar 1 disorder 08/18/2017 History of mood disorder 06/08/2017 Carpal tunnel syndrome 01/20/2017 Cellulitis of right lower limb 10/08/2016 Lateral epicondylitis 10/08/2016 Superficial thrombophlebitis 10/08/2016 Skin sensation disturbance 08/30/2016 Adjustment disorder with mix ed disturbance of emotions and conduct 07/09/2016 Cellulitis of face 07/09/2016 Cervical disc disorder 07/09/2016 Herpes infection 07/09/2016 Herpes zoster without complication 07/09/2016 High risk sexual behavior 07/09/2016 Melasma 07/09/2016 Generalized anxiety disorder 07/09/2016 Partial retinal artery occlusion 07/09/2016 Sacral back pain 07/09/2016 Thyroid goiter 07/09/2016 Encounters Date Type Department Care Team Description 01/11/2025 Telephone [facility] [place] [address] [place] [address] Rae Denney MA from Last 3 Months Family History Medical History Relation Name Comments Coronary artery disease Father COPD Mother Heart failure Mother Relation Name Status Comments Brother Alive Father Mother Sister Alive Social History Tobacco Use Types Packs/Day Years Used Date Smoking Tobacco: Former Cigarettes 0.5 30 0 01/03/1994 - 01/04/2024 Smokeless Tobacco: Never Tobacco Cessation:Counseling Given: Not Answered Comments:Vape Alcohol Use Standard Drinks/Week Comments Not Currently 0 (1 standard drink = 0.6 oz pur e alcohol) PHQ-2 Answer Date Recorded Patient Health Questionnaire-2 Score 0 01/25/2024 [place] Safety & Environment Answer Date Rec orded Fear of Current or Ex-Partner Not on file Emotionally Abused Not on file 08/27/2023 Physically Abused Not on file 08/27/2023 Sexually Abused Not on file 08/27/2023 Physically or Sexually Abused Not on file Comments Unknown Sex and Gender Information Value Date Recorded Sex Assigned at Female 01/20/2023 9:13 PM EDT Legal Sex Female 10:52 AM EDT Gender Identity Female 01/20/2023 9:13 PM EDT Sexual Orientation Heterosexual or Straight 01/02 9:13 PM EDT Last Filed Vital Signs Vital Sign Reading Time Taken Comments Blood Pressure 116/84 11/08/2024 9:52 AM EDT Pulse 80 11/08/2024 9:52 AM EDT Temperature - - Respiratory Rate 16 11/02/2023 10:02 AM EDT Oxygen Saturation 96% 11/08/2024 9:52 AM EDT Inhaled Oxygen Concentration - - Weight 89.4 kg (197 lb) 11/08/2024 9:52 AM EDT Height 162.6 cm (5' 4 ) 11/08/2024 9:52 AM EDT Body Mass Index 33.81 11/08/2024 9:52 AM EDT Plan of Treatment Upcoming Encounters Date Type Department Care Team (Late st Contact Info) Description 04/10/2025 2:45 PM EDT Office Visit [facility] [address] [place] [address] Esteban Estrada MD [address] [place] [address] Health Maintenance Due Date Last Done Comments CT Colonography 1968 Colonoscopy 1968 FOBT 1968 Sigmoidoscopy 1968 Diabetes: Retinopathy Screening 1978 Depression Screening 1980 Hepatitis B Vaccines (1 of 3 - 19+ 3-dose series) 1987 Pneumococcal Vaccine: Pediatrics (0 to 5 Years) and At-Risk Patients (6 to 64 Years) (1 of 2 - PCV) 1987 Pap Smear 1989 Adult Tetanus 1990 Cervical Cancer Screening 1998 HPV/Cotest 1998 Zoster Vaccines (1 of 2) 2018 COVID-19 Vaccine (2 - 2023-2 5 season) 2024 06/26/2021 FIT 03/16/2024 03/16/2023, 01/19/2019 Diabetes: Hemoglobin A1C 11/01/2024 025, 05/17/2024, 10/27/2022 Influenza Vaccine (#1) 2025 9, 05/15/2016 Diabetes: Urine Protein Screening 08/08/2025 08/08/2024 Colorectal Cancer Screening 03/16/2026 FIT-DNA 03/16/2026 03/16/2023 Mammogram 12/01/2026 12/01/2024, 07/01/2022 HIB Vaccines Aged Out No longer eligi ble based on patient's age to complete this topic HPV Vaccines Aged Out No longer eligi ble based on patient's age to complete this topic IPV Vaccines Aged Out No longer eligi ble based on patient's age to complete this topic Meningococcal B Vaccine Aged Out No l onger eligible based on patient's age to complete this topic Meningococcal Vaccine Aged Out No yumiko gio eligible based on patient's age to complete this topic Rotavirus Vaccines Aged Out No longer eligible based on patient's age to complete this topic Procedures Procedure Name Priority Date/Time Associated Diagnosis Comments HEMOGLOBIN A1C Routine 05/17/2024 1:46 PM EST from Last 3 Months or Most Recently Relevant to Health Maintenance Results * Hemoglobin A1c (05/17/2024 1:46 PM EST) Blood Venous blood specimen / Unknown Prakash Gil MD LAB BLOOD ORDERABLES Final Result from Last 3 Months or Most Recently Relevant to Health Maintenance Insurance [employer] Care Teams Riprap Placer Relationship Specialty Start Date End Date Daphney Hubbrad MD [address] [place] [address] PCP - General Family Medicine 05/04/24
--- OUTSIDE RECORDS SUMMARY | 2025-02-19 09:41 | XMS_ITS | Encounter Summary ---
Author Organization [facility] Address [address] [place] [id number] Care Team Providers Care Teacher Home Therapy Name Role Phone Kimberley Morgan Primary Care Provider Unav ailable Source Comments In the event this information is protected by the Federal Confidentiality of Alcohol and Drug AbusePatient Records regulations: The Federal rules restrict any use of the information to criminally investigate or prosecute any alcohol or drug abuse patient.[facility] Encounter Details Date Type Department Care Team (Late st Contact Info) Description 10/03/2022 Get Medical Advice Rheumatology [address] [place], [place] [id number] Jailyn Cole MD [address] [place] [address] Refill Social History Tobacco Use Types Packs/Day Years Used Date Smoking Tobacco: Every Day Cigarettes 1 1 Smokeless Tobacco: Never Alcohol Use Standard Drinks/Week Comments Yes 0 (1 standard drink = 0.6 oz pur e alcohol) rarely. Area Deprivation Index Answer Date Bolivar rded National Score (1-100), lower number is lower ri sk 95 08/02/2022 State Score (1-10), lower number is lower risk N ot on file 08/02/2022 Data from: https://www.neighborhoodatlas.medicine.[facility].edu/. Last address used for calculation [address] [place] [address] 08/02/2022 Comments Unknown Sex and Gender Information Value Date Recorded Sex Assigned at Not on file Legal Sex Female 10:38 AM EDT Gender Identity Not on file Sexual Orientation Not on file documented as of this encounter Miscellaneous Notes * Telephone Encounter - Jailyn Cole MD - 10/05/2022 8:58 AM EDT Not seen since 12/2021 Please call and schedule phone/virtual or office visit for fibromyalgia/ osteoarthritis with me or Rheum AQUACULTURAL WORKER SUPERVISOR this year. Please call and schedule nonfasting labs this month. Notify patient medication sent as requested Thank you. Patient's request for medication is as follows: Requested Prescriptions Signed Prescriptions Disp Refills celecoxib (CELEBREX) 200 mg capsule 180 capsule 0 Sig: Take 1 capsule by mouth twice daily. cyclobenzaprine (FLEXERIL) 5 mg tablet 60 tablet 3 Sig: Take 1-2tab by mouth per day. May cause drowsiness Prescription(s) as above. Please process accordingly. Jailyn Cole MD * Telephone Encounter - Nataly Hernandez MA - 10/05/2022 8:15 AM EDT Most recent Rheumatology visit: 12/12/2021 (with Jailyn Cole) Recent Office Visits - This Specialty 12/12/2021 Secondary osteoarthritis of multiple sites Rheumatology Jailyn Cole MD 06/04/2021 Secondary osteoarthritis of multiple sites Rheumatology Jailyn Cole MD Upcoming Rheumatology Appointments - Next 365 Days No appointments to display CBC: None on file in the last 6 months Vitamin D: None on file in the last 6 months LFT: None on file in the last 6 months Creatinine:None on file in the last 6 months ESR/CRP: None on file in the last 6 months Uric Acid: None on file in the last 6 months Open Standing (Multiple Instance) Lab Orders None Open Future (Single Instance) Lab Orders Expected Expires Ordered VITAMIN D 25 HYDROXY [SQVITD] 03/19/22 12/17/22 12/17/21 Auth. provider: Jailyn Cole MD Assoc. diagnoses: Vitamin D deficiency Patient phones requesting refills as follows: Requested Prescriptions Pending Prescriptions Disp Refills celecoxib (CELEBREX) 200 mg capsule 180 capsule 3 Sig: Take 1 capsule by mouth twice daily. cyclobenzaprine (FLEXERIL) 5 mg tablet 60 tablet 3 Sig: Take 1-2tab by mouth per day. May cause drowsiness Please review and advise. Nataly Hernandez MA documented in this encounter Plan of Treatment Not on file documented as of this encounter Visit Diagnoses Diagnosis Secondary osteoarthritis of multiple sites- Primary Osteoarthrosis involving, or with mention of more than one site, but not specified as generalized, multiple sites Cervicalgia Chronic bilateral low back pain with bilateral sciatica Elevated LFTs Other abnormal blood chemistry Anemia of chronic disease Anemia of other chronic disease Vitamin D deficiency Unspecified vitamin D deficiency Vitamin B12 deficiency Other B-complex deficiencies Elevated sed rate Elevated sedimentation rate Elevated C-reactive protein (CRP) documented in this encounter Care Teams Teacher Home Therapy Relationship Specialty Start Date End Date Kimberley Morgan DO PCP - General Family Medicine 06/04/21 documented as of this encounter
--- OUTSIDE RECORDS SUMMARY | 2025-02-19 09:41 | XMS_ITS | Encounter Summary ---
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 file Not on file N ot on file documented as of this encounter Plan of Treatment Upcoming Encounters Date Type Department Care Team (Late st Contact Info) Description 04/06/2025 11:15 AM EDT [facility] [address] [place] [address] John Gauthier, DPM [address] [place] [address] 05/17/2025 10:20 AM EST [facility] [address] [place] [address] Hazel Molina MD [address] [place], [place] [phone] documented as of this encounter Procedures Procedure Name Priority Date/Time Associated Diagnosis Comments DIABETIC RETINOPATHY SCREENING - OU - BOTH EYES Routine 01/25/2025 2:59 PM EDT documented in this encounter Results * Diabetic Retinopathy Screening - OU - Both Eyes (01/25/2025 2:59 PM EDT) Anatomical Region Laterality Modality Head Other us Hazel Molina MD OPHTH PHOTOGRAPHY Final Resul t documented in this encounter Visit Diagnoses Not on filedocumented in this encounter Additional Health Concerns Assessment Noted Time PHQ-9 Depression Total Score: 6 11/08/19 25 10:00 AM EDT documented as of this encounter Care Teams Wellness Health Coach Relationship Specialty Start Date End Date Hazel Molina MD [address] [facility] [place], [place] [id number] PCP - General Family Medicine 10/28/23 Daphney Hubbard MD [address] [place] [address] PCP - Medical [place] AMBER 07/05/2407/04 documented as of this encounter
--- OUTSIDE RECORDS SUMMARY | 2025-02-19 09:41 | XMS_ITS | Encounter Summary ---
Author Organization [facility] Address [address] [place] [address] Care Team Providers Care Rubber Roller Grinder Name Role Phone Kimberley Morgan Primary Care Provider [phone] Hazel Molina MD Primary Care Provider [phone] Daphney Hubbard MD Unavailable Reason for Visit * Reason Comments Med Refill Encounter Details Date Type Department Care Team (Late st Contact Info) Description 05/11/2023 Refill [facility] [address] [place] [address] John Gauthier, DPChristy [address] [place], [place] [id number] Onychomycosis Social History Tobacco Use Types Packs/Day Years Used Date Smoking Tobacco: Every Day Cigarettes 0.5 40.6 Started: 07/05/1984 Alcohol Use Standard Drinks/Week Comments Yes 0 (1 standard drink = 0.6 oz pure alcohol) Caffeine intake: 1-2 cups per day occasionally PHQ-2 Answer Date Recorded Patient Health Questionnaire-2 Score 0 02/11/2023 Education Answer Date Recorded What is the [...] 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 Not on file N ot on file documented as of this encounter Plan of Treatment Upcoming Encounters Date Type Department Care Team (Late st Contact Info) Description 04/06/2025 11:15 AM EDT [facility] [address] [place] [address] John Gauthier, DPChristy [address] [place] [address] 05/17/2025 10:20 AM EST [facility] [address] [facility] [place] [phone] Hazel Molina MD [address] [facility] [place] [address] documented as of this encounter Visit Diagnoses Diagnosis Onychomycosis Dermatophytosis of nail documented in this encounter Care Teams Rubber Roller Grinder Relationship Specialty Start Date End Date CathyGordonluci DobbsDO PCP - General Family Medicine 01/19/23 10/27/23 Hazel Molina MD [address] [facility] [place] [address] PCP - General Family Medicine 10/28/23 Daphney Hubbard MD [address] [facility] [place] [address] PCP - Medical [place] 07/05/2407/04 documented as of this encounter
--- OUTSIDE RECORDS SUMMARY | 2025-02-19 09:41 | XMS_ITS | Encounter Summary ---
Author Organization [employer] Address [id number] [address] [place] [address] Care Team Providers Care Fabrication Specialist Name Role Phone CathyGordonee Rinku BELLO Primary Care Provider Unavaila ble Encounter Details Date Type Department Care Team (Late st Contact Info) Description 06/06/2020 Telephone [facility] [address] [place] [address] Dennise Jernigan RN Social History Tobacco Use Types Packs/Day Years Used Date Smoking Tobacco: Every Day Cigarettes Last attempted to quit: 06/15/2014 Smokeless Tobacco: Never Alcohol Use Standard Drinks/Week Comments Yes 0 (1 standard drink = 0.6 oz pur e alcohol) social AUDIT-C Answer Date Recorded Frequency of Alcohol Consumption 2-4 times a wed06/15/2018 Average Number of Drinks 1 or 2 018 Frequency of Binge Drinking Not on file 06/04 Childcare Answer Date Recorded Childcare Unknown 12/14/2018 Employment Answer Date Recorded Employment Unknown 12/14/2018 Comments No Sex and Gender Information Value Date Recorded Sex Assigned at Not on file Legal Sex Female 11:28 AM EDT Gender Identity Not on file Sexual Orientation Not on file COVID-19 Exposure Response Date Recorded In the last month, have you been in contact with someone who was confirmed or suspected to have Coronavirus / COVID-19? Unable to assess 06/04/2020 1:16 PM EST documented as of this encounter Miscellaneous Notes * Telephone Encounter - Dennise Jernigan RN - 06/06/2020 3:17 PM EST Surgeon: Dr Femi Rosario Type of surgery: spinal fusion Date of surgery: 06/25/20 Surgery location: [facility] Type of anesthesia: not mentioned On a blood thinner?: no Indication? On an antiplatelet?: no Stent?Type? When placed? Their preference of how long to hold blood thinners/antiplatelet: History of CVA/TIA, DVT/PE? ATTN: Do they need any additional info faxed(such as office note, ekg, testing, Etc? Upon your return please address pre-op clearance th sl Dennise Jernigan RN 06/06/20 [id number] * Telephone Encounter - Samson Baez DO - 06/06/2020 3:17 PM EST Low risk pt she is no blood thinner.. documented in this encounter Plan of Treatment Not on file documented as of this encounter Visit Diagnoses Not on filedocumented in this encounter Additional Health Concerns Infection Onset Date Last Indicated Resolved Time MRSA Comment:abdominal boil Infection converted via [employer] from [employer] system information 01/18/2009 01/18/2009 02/28/2021 11:19 PM EDT COVID-19 Rule-Out 11/30/2020 11/30/2020 11/30/2020 9:28 PM EDT documented as of this encounter Care Teams Fabrication Specialist Relationship Specialty Start Date End Date Kimberley Morgan DO PCP - General Family Medicine 11/26/20 documented as of this encounter
--- OUTSIDE RECORDS SUMMARY | 2025-02-19 09:41 | XMS_ITS | Encounter Summary ---
Author Organization [facility] Address [address] [place] [address] Care Team Providers Care Sugar Controller Name Role Phone Kimberley Morgan DO Primary Care Provider Unav ailable Source Comments In the event this information is protected by the Federal Confidentiality of Alcohol and Drug AbusePatient Records regulations: The Federal rules restrict any use of the information to criminally investigate or prosecute any alcohol or drug abuse patient.[facility] Encounter Details Date Type Department Care Team (Late st Contact Info) Description 06/08/2021 Get Medical Advice Rheumatology [address] [place], [place] [id number] Jailyn Cole MD [address] [place] [address] Osteoarthritis Social History Tobacco Use Types Packs/Day Years [...] on filedocumented in this encounter Care Teams Sugar Controller Relationship Specialty Start Date End Date Kimberley Morgan DO PCP - General Family Medicine 06/04/21 documented as of this encounter
--- OUTSIDE RECORDS SUMMARY | 2025-02-19 09:41 | XMS_ITS | Encounter Summary ---
Author Organization [facility] Address [address] [place] [address] Care Team Providers Care Clothing Room Supervisor Name Role Phone Kimberley Morgan Primary Care Provider [phone] Hazel Molina MD Primary Care Provider [phone] Daphney Hubbard MD Unavailable Encounter Details Date Type Department Care Team (Late st Contact Info) Description 01/18/2023 Abstract [facility] [address] [place] [phone] John Gauthier DPM [address] [place], [place] [id number] Social History Tobacco Use Types Packs/Day Years Used Date Smoking Tobacco: Every Day Cigarettes Tobacco Cessation:Ready to Q uit: No; Counseling Given: Not Answered Alcohol Use Standard Drinks/Week Comments Yes 0 (1 standard drink = 0.6 oz pure alcohol) 3-4 drinks 2-4x a month in the past year, Caffeine intake: 1-2 cups per day occasionally Education Answer Date Recorded What is the [...] 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 Not on file N ot on file documented as of this encounter Plan of Treatment Upcoming Encounters Date Type Department Care Team (Late st Contact Info) Description 04/06/2025 11:15 AM EDT Office Visit [facility] [address] [place] [address] John Gauthier, DPM [address] [place] [address] 05/17/2025 10:20 AM EST [facility] [address] [facility] [place] [phone] Hazel Molina MD [address] [facility] [place] [address] documented as of this encounter Visit Diagnoses Not on filedocumented in this encounter Care Teams Clothing Room Supervisor Relationship Specialty Start Date End Date Kimberley Morgan DO PCP - General Family Medicine 01/19/23 10/27/23 Hazel Molina MD [address] [facility] [place] [address] PCP - General Family Medicine 10/28/23 Daphney Hubbard MD [address] [facility] [place] [address] PCP - Medical [place] 07/05/2407/04 documented as of this encounter
--- OUTSIDE RECORDS SUMMARY | 2025-02-19 09:41 | XMS_ITS | Encounter Summary ---
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 Not on file N ot on file documented as of this encounter Plan of Treatment Upcoming Encounters Date Type Department Care Team (Late st Contact Info) Description 04/06/2025 11:15 AM EDT Office Visit [facility] [address] [place] [address] John Gauthier, DPM [address] [place] [address] 05/17/2025 10:20 AM EST [facility] [address] [facility] [place] [phone] Hazel Molina MD [address] [facility] [place] [address] documented as of this encounter Visit Diagnoses Not on filedocumented in this encounter Care Teams Whizzer Operator Relationship Specialty Start Date End Date Kimberley Morgan DO PCP - General Family Medicine 01/19/23 10/27/23 Hazel Molina MD [address] [facility] [place] [address] PCP - General Family Medicine 10/28/23 Daphney Hubbard MD [address] [facility] [place] [address] PCP - Medical [place] 07/05/2407/04 documented as of this encounter
--- OUTSIDE RECORDS SUMMARY | 2025-02-19 09:41 | XMS_ITS | Encounter Summary ---
Author Organization [facility] Address [address] [place] [address] Care Team Providers Care Director Of Business Applications Name Role Phone Kimberley Morgan Primary Care Provider Unav ailable Source Comments In the event this information is protected by the Federal Confidentiality of Alcohol and Drug AbusePatient Records regulations: The Federal rules restrict any use of the information to criminally investigate or prosecute any alcohol or drug abuse patient.[facility] Encounter Details Date Type Department Care Team (Late st Contact Info) Description 03/17/2022 Get Medical Advice Rheumatology [address] [place], [place] [phone] Jailyn Cole MD [address] [place] [address] Lizbeth Hinkle Social History Tobacco Use Types Packs/Day Years [...] N ot on file 12/12/2021 Data from: https://www.neighborhoodatlas.medicine.[facility].edu/. Last address used for calculation [address] [place] [address] 12/12/2021 Comments Unknown Sex and Gender Information Value Date Recorded Sex Assigned at Not on file Legal Sex Female 10:38 AM EDT Gender Identity Not on file Sexual Orientation Not on file documented as of this encounter Plan of Treatment Not on file documented as of this encounter Visit Diagnoses Not on filedocumented in this encounter Care Teams Director Of Business Applications Relationship Specialty Start Date End Date Kimberley Morgan DO PCP - General Family Medicine 06/04/21 documented as of this encounter
--- OUTSIDE RECORDS SUMMARY | 2025-02-19 09:41 | XMS_ITS | Encounter Summary ---
Author Organization [facility] Address [address] [facility], [address] [place] [address] Care Team Providers Care Driller Portable Name Role Phone Mark Tomas MD Primary Care Provider Unav ailable Reason for Visit * Reason Comments Medication Refill Encounter Details Date Type Department Care Team (Late st Contact Info) Description 04/24/2019 [facility] [address], [address] [place] [address] Femi Rosario MD Medication Refill Social History [...] unspecified documented in this encounter Care Teams Driller Portable Relationship Specialty Start Date End Date Mark Tomas MD PCP - General Family Medicine 04/12/20 09/12/23 documented as of this encounter
--- OUTSIDE RECORDS SUMMARY | 2025-02-19 09:41 | XMS_ITS | Clinical Summary ---
Author Organization [facility] Address [address] [place] [address] Care Team Providers Care Manager State Name Role Phone Hazel Molina MD Primary Care Provider [phone] Daphney Hubbard MD Unavailable Allergies Active Allergy Reactions Criticality Noted Date Comments Ibuprofen Diarrhea,GI intolerance,Unknown 04/04 Upset stomach Tramadol Unknown,Nausea Only 06/05/2019 Upset stomach Medications multivitamin with minerals (Cerovite) 18-400 mg-mcg tablet tablet Take 1 tablet by mouth in the morning. Active acetaminophen (Tylenol) 325 MG tablet Take 650 mg by mouth every 6 (six) hours if needed. Active acyclovir (Zovirax) 400 MG tablet 08/14/19 23 Active atorvastatin (Lipitor) 80 MG tablet Take 80 mg by mouth in the morning. 12/02/19 23 Active cholecalciferol (Vitamin D-3) 50 MCG (1999 UT) capsule Take by mouth. Active clonazePAM (KlonoPIN) 0.5 MG tablet Take 0.5 mg by mouth 2 (two) times a day as needed. Active cyclobenzaprine (Flexeril) 10 MG tablet 10/05/19 23 Active desvenlafaxine (Pristiq) 100 MG 24 hr tablet 11/09/19 23 Active lamoTRIgine (LaMICtal) 200 MG tablet 300 mg 1 (one) time each day at the same time Active QUEtiapine (SEROquel) 400 MG tablet 11/21/19 23 Active clobetasol (Temovate) 0.05 % cream 06/15/20 23 Active ezetimibe (Zetia) 10 MG tablet Take 10 mg by mouth in the morning. 04/07/20 23 Active amLODIPine (Norvasc) 10 MG tabletIndication s:Primary hypertension Take 1 tablet (10 mg) by mouth Daily 90 tablet 1 10/28/19 24 Active apixaban (Eliquis) 2.5 MG tablet Take 2.5 mg by mouth in the morning and 2.5 mg in the evening. 01/11/20 24 Active gabapentin (Neurontin) 300 MG capsule Take 300 mg by mouth in the morning and 300 mg in the evening and 300 mg before bedtime. Active ammonium lactate (Amlactin) 12 % creamIndications :Corns and callosities Apply topically Daily 140 g 3 08/21/19 25 026 Active metFORMIN (Glucophage) 500 MG tabletIndication s:Type 2 diabetes mellitus without complication, without long-term current use of insulin (HCC) TAKE 1 TABLET BY MOUTH EVERY MORNING AND 1 TABLET EVERY EVENING WITH A MEAL 60 tablet 1 01/09/20 25 Active lamoTRIgine (LaMICtal) 100 MG tablet 12/26/19 25 Active metoprolol succinate XL (Toprol-XL) 50 MG 24 hr tablet 02/07/20 25 Active omeprazole (PriLOSEC) [address] capsule 01/08/20 25 Active Tirzepatide (Mounjaro) 2.5 MG/0.5ML solution auto-injectorInd ications:Type 2 diabetes mellitus without complication, without long-term current use of insulin (HCC) Inject 2.5 mg under the skin 1 (one) time per week 2 mL 02/14/20 25 025 Active nicotine (Nicoderm CQ) 14 MG/24HR patchIndications :Nicotine abuse Place 1 patch over 24 hours on the skin 1 (one) time each day at the same time 30 patch 02/14/20 25 025 Active metoprolol succinate XL (Toprol-XL) 25 MG 24 hr tablet Take 25 mg by mouth in the morning. 12/02/19 23 025 Discontinued nicotine (Nicoderm, Step 1) 21 MG/24HR patchIndications :Smoking addiction Place 1 patch over 24 hours on the skin 1 (one) time each day at the same time 42 patch 10/28/19 24 025 Discontinued omeprazole (PriLOSEC) [address] Marmolejo ns:Gastroesophag eal reflux disease without esophagitis Take 1 capsule (20 mg) by mouth in the morning. Take before meals. 90 capsule 08/08/19 25 025 Discontinued Ozempic, 0.25 or 0.5 MG/DOSE, 2 MG/3ML solution pen-injectorIndi cations:Type 2 diabetes mellitus without complication, without long-term current use of insulin ([facility]) DIAL AND INJECT UNDER THE SKIN 0.5 MG WEEKLY 3 mL 1 11/19/19 25 025 Discontinued Active Problems Problem Noted Date Diagnosed Date Chronic prescription benzodiazepine use 02/14/20 Failed neck syndrome 02/13/2025 Disorder of sacroiliac joint 02/13/2025 Sacroiliitis, not elsewhere classified Shoulder pain 02/13/2025 Inappropriate sinus tachycardia, so stated 11/08 Nonrheumatic mitral (valve) insufficiency 2024 Type 2 diabetes mellitus with unspecified compli cations 11/06/2024 Osteoarthritis of right hip 10/25/2024 Sacroiliitis 07/19/2024 Postlaminectomy syndrome, not elsewhere classifi ed 06/14/2024 History of Sloan's esophagus 06/09/2024 History of gastric ulcer 06/09/2024 Myalgia, other site 05/18/2024 Pain in unspecified joint 01/25/2024 Other bursitis of knee, unspecified knee 024 Activated protein C resistance ([facility]) 024 Hereditary deficiency of other clotting factors 11/02/2023 Palpitations 11/02/2023 Encounter for other preprocedural examination Eructation 09/13/2023 Flatulence 09/13/2023 Gas pain 09/13/2023 Encounter for medication monitoring 08/26/2023 NSAID long-term use 06/22/2023 Osteopenia 06/22/2023 Other specified disorders of bone density and structure, unspecified site 06/22/2023 Current use of estrogen therapy 02/11/2023 Marijuana smoker 02/11/2023 Overview (02/11/2023): recommended smoking cessation, advised this is likely worsening recurrent oral lesion, encouraged f/u with dentist as well Assessment & Plan (02/13/2025 6:23 PM EDT): S/P hysterectomy 02/11/2023 Overview (02/11/2023): pap smear screening not recommended Coronary artery disease invo lving [place] coronary artery of [place] heart with angina pectoris 02/10/2023 Overview (02/11/2023): reviewed cardiology records including recent cardiac cath demonstrating moderate CAD; continue current regimen, f/u with cardiology as indicated Tongue ulcer 02/08/2023 Cigarette smoker 01/19/2023 BMI 30.0-30.9,adult 01/19/2023 Lesion of oral mucosa 01/19/2023 Prediabetes 01/19/2023 Seasonal allergic rhinitis 01/19/2023 Abnormal nuclear stress test 01/13/2023 Overview (01/19/2023): Last Assessment & Plan: Ordered heart cath Unstable angina 01/13/2023 Overview (02/11/2023): Last Assessment & Plan: Currently denied chest pain Chest pain, atypical 12/01/2022 Overview (01/19/2023): Last Assessment & Plan: Abnormal stress with reversible perfusion defect Will order cardiac cath to assess for any significant coronary stenosis that would correlate with her Unstable Angina symptoms. HOFFMAN (dyspnea on exertion) 12/01/2022 Overview (01/19/2023): Last Assessment & Plan: Noted reversible perfusion, and unstable angina with HOFFMNA therefore heart cath ordered No acute concerns noted on echocardiogram- normal LVSF, normal RV function and no significant valvular abnormalities Elevated d-dimer 12/01/2022 Overview (02/11/2023): Last Assessment & Plan: Re-ordered CTA chest to r/o PE with elevated D Dimer, HOFFMAN and increased fatigue Sleep disturbances 12/01/2022 Overview (02/11/2023): Last Assessment & Plan: Sleep study referral Fibromyalgia 12/17/2021 Overview (01/19/2023): Last Assessment & Plan: F/u with PCP for chronic pain/myalgia issues Vitamin D deficiency 12/12/2021 Soft tissue swelling 06/06/2021 Bilateral hand pain 06/05/2021 Chronic hip pain, bilateral 06/05/2021 Chronic pain of both knees 06/05/2021 Elevated C-reactive protein (CRP) 06/05/2021 Cervicalgia 06/05/2021 Secondary osteoarthritis of multiple sites 06/05 Class 1 obesity 10/29/2020 Internal derangement of right knee 09/18/2020 Spondylolisthesis of lumbar region 06/25/2020 Lumbar stenosis 06/18/2020 Tobacco use disorder 06/18/2020 Tachycardia 04/16/2020 Other specific joint derange ments of right shoulder, not elsewhere classified 01/10/2020 Factor 5 Leiden mutation, heterozygous ([facility]) 12/22/2019 Seasonal allergies 12/18/2019 High blood pressure 05/11/2019 Obesity (BMI 30-39.9) 05/09/2019 Hidradenitis axillaris 05/09/2019 TMJ (temporomandibular joint syndrome) [...] Superficial thrombophlebitis 10/08/2016 Skin sensation disturbance 08/30/2016 Benign essential HTN 08/05/2016 Overview (01/19/2023): Last Assessment & Plan: Continue meds Mixed hyperlipidemia 07/13/2016 Overview (01/19/2023): Last Assessment & Plan: Continue statin Adjustment disorder with mix ed disturbance of emotions and conduct 07/09/2016 Cellulitis of face 07/09/2016 Cervical disc disorder 07/09/2016 Cervical myelopathy 07/09/2016 Gastroesophageal reflux disease 07/09/2016 Generalized anxiety disorder 07/09/2016 Panic disorder 07/09/2016 Herpes zoster without complication 07/09/2016 Melasma 07/09/2016 Sacral back pain 07/09/2016 Herpes infection 07/09/2016 High risk sexual behavior 07/09/2016 Partial retinal artery occlusion 07/09/2016 Thrombophlebitis of superficial veins of lower e xtremity 07/09/2016 Thyroid goiter 07/09/2016 Encounters Date Type Department Care Team Description 02/13/2025 2:40 PM EDT Office Visit [facility] [address] [place] [phone] Hazel Molina MD Nicotine abuse (Primary Dx); Type 2 diabetes mellitus without complication, without long-term current use of insulin (HCC); Nausea and vomiting, unspecified vomiting type; Memory loss; Marijuana smoker 02/13/2025 Orders Only [facility] [address] [place] [phone] Hazel Molina MD 02/13/2025 Bamboo flowsheet [facility] [address] [place] [phone] Hazel Molina MD 02/13/2025 Travel 01/07/2025 Refill [facility] [address] [place] [address] Hazel Molina MD Type 2 diabetes mellitus without complication, without long-term current use of insulin (HCC) 01/03/2025 4:00 PM EDT Office Visit [facility] [address] [place] [address] John Gauthier DPM Onychomycosis (Primary Dx); Onychodystrophy; Corns and callosities; Diabetic polyneuropathy associated with type 2 diabetes mellitus (HCC); Ingrown toenail; Pain in both feet 01/03/2025 Bamboo flowsheet [facility] [address] [place] [phone] John Gauthier DPM 01/03/2025 Travel 01/02/2025 Travel 12/04/2024 Results Follow-Up [facility] [address] [place] [phone] Hazel Molina MD CT lung screening low dose, US Soft Tissue Palpable Mass 12/01/2024 12:30 PM EDT Ancillary Procedure [facility] [address] [facility] [address] [place] [phone] Encounter for screening mammogram for malignant neoplasm of breast 12/01/2024 12:00 PM EDT Ancillary Procedure [facility] [address] [facility] [address] [place] [address] Cyst, dermoid, arm, right 12/01/2024 11:30 AM EDT Ancillary Procedure [facility] [address] [facility] [address] [place] [address] Nicotine abuse; Nicotine dependence, cigarettes, in remission 12/01/2024 Results Follow-Up [facility] [address] [place] [phone] Hazel Molina MD Bilateral screening mammogram with tomosynthesis 12/01/2024 Travel from Last 3 Months Immunizations Immunization Administration Dates Next Due Influenza, injectable, quadrivalent, preservativ e free 04/06/2019 Influenza, seasonal, intradermal, preservative f ree 05/15/2016 Family History Medical History Relation Name Comments Bipolar disorder Mother Diabetes Mother Mental illness Mother Heart disease Paternal Cousin COPD Sibling Hypothyroidism Sibling Bipolar disorder Sister Rand Relation Name Status Comments Brother 1 Daughter Alive 2 Father Maternal Grandfather Maternal Grandmother Mother Alive Paternal Cousin Paternal Grandfather Paternal Grandmother Sibling Sister 2 Social History Tobacco Use Types Packs/Day Years Used Date Smoking Tobacco: Former Cigarettes 0.5 40.1 S tarted: 07/05/1984 Tobacco Cessation:Counseling Given: Not Answered Alcohol Use Standard Drinks/Week Comments Not Currently [...] 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) Not on file Not on file N ot on file Last Filed Vital Signs Vital Sign Reading Time Taken Comments Blood Pressure 122/80 02/13/2025 2:48 PM EDT Pulse 85 02/13/2025 2:48 PM EDT Temperature 36.2 C (97.1 F) 10/28/2023 2:21 PM EDT Respiratory Rate 18 07/26/2023 3:33 PM EST Oxygen Saturation 96% 02/13/2025 2:48 PM EDT Inhaled Oxygen Concentration - - Weight 88.4 kg (194 lb 12.8 oz) 02/13/2025 2:48 PM EDT Height 162.6 cm (5' 4 ) 02/13/2025 2:48 PM EDT Body Mass Index 33.44 02/13/2025 2:48 PM EDT Plan of Treatment Upcoming Encounters Date Type Department Care Team (Late st Contact Info) Description 04/06/2025 11:15 AM EDT [facility] [address] [place] [phone] John Gauthier, DPChristy [address] [place] [address] 05/17/2025 10:20 AM EST Office Visit [facility] [address] [place] [phone] Hazel Molina MD [address] [place], [place] [phone] Health Maintenance Due Date Last Done Comments CT Colonography 1968 Colonoscopy 1968 FIT 1968 FOBT 1968 Sigmoidoscopy 1968 Influenza Vaccine (#1) 2025 04/06/2019, 2015 Diabetes: Hemoglobin A1C 05/16/2025 025, 11/08/2024, 08/04/2024, Additional history exists Diabetes: Urine Protein Screening 08/08/2025 025 Medicare Annual Wellness (AWV) 11/07/2025 11/07/2024 , 02/11/2023 Mammogram 12/01/2025 12/01/2024, 06/05, 06/17/2021, Additional history exists Colorectal Cancer Screening 03/16/2026 FIT-DNA 03/16/2026 03/16/2023, 01/02, 01/19/2019 Diabetes: Retinopathy Screening 01/25/2027 Cervical Cancer Screening Discontinued HPV/Cotest Discontinued 09/09/2017 Pap Smear Discontinued Procedures Procedure Name Priority Date/Time Associated Diagnosis Comments POCT GLYCATED HEMOGLOBIN, TOTAL Routine 02/13/2025 2:58 PM EDT Type 2 diabetes mellitus without complication, without long-term current use of insulin (HCC) DIABETIC RETINOPATHY SCREENING - OU - BOTH EYES Routine 01/25/2025 2:59 PM EDT BI MAMMOGRAM SCREENING TOMOSYNTHESIS BILATERAL Routine 12/01/2024 12:00 PM EDT Encounter for screening mammogram for malignant neoplasm of breast US SOFT TISSUE PALPABLE MASS Routine 12/01/2024 11:59 AM EDT Cyst, dermoid, arm, right CT LUNG SCREENING LOW DOSE Routine 12/01/2024 11:48 AM EDT Nicotine abuse Nicotine dependence, cigarettes, in remission MICROALBUMIN / CREATININE URINE RATIO Routine 08/08/2024 9:46 AM EST Poorly controlled type 2 diabetes mellitus with neuropathy (HCC) LAB COLOGUARD COLON CANCER SCREEN Routine 03/16/2023 2:00 PM EDT Encounter for screening for malignant neoplasm of colon Q - THINPREP(R) TIS AND HPV MRNA E6/E7 RFL HPV 16,18/45 Routine 09/09/2017 from Last 3 Months or Most Recently Relevant to Health Maintenance Results * POCT Glycated hemoglobin, total (02/13/2025 2:58 PM EDT) Hemoglobin A1C 6.2 Blood 02/13/2025 2:58 PM EDT Hazel Molina MD POINT OF CARE TEST ENTER/EDIT ORDERABLES Final Result * Diabetic Retinopathy Screening - OU - Both Eyes (01/25/2025 2:59 PM EDT) Anatomical Region Laterality Modality Head Other us Hazel Molina MD OPHTH PHOTOGRAPHY Final Resul t * Bilateral screening mammogram with tomosynthesis (12/01/2024 12:00 PM EDT) Anatomical Region Laterality Modality Breast Bilateral Mammography 12/01/2024 3:26 PM EDT Impressions 12/01/2024 3:32 PM EDT Impression: No specific evidence of malignancy seen in either breast. BIRADS 2 - Benign Findings DENSITY: The breasts are almost entirely fatty. FOLLOW-UP: Routine Screening Mammogram ELECTRONICALLY SIGNED BY: Zachary Brizuela M.D. Narrative 12/01/2024 3:32 PM EDT Examination: BI MAMMOGRAM SCREENING TOMOSYNTHESIS BILATERAL Clinical History: screening Technique: Screening digital mammography study of both breasts was performed with 2-D and 3-D tomosynthesis imaging. Study was compared to the prior exam dated 07/01/2022. Findings: There is no evidence of interval dominant spiculated mass, grouped microcalcifications, or skin thickening which would be suggestive of malignancy. A few scattered benign calcifications are seen bilaterally. Small benign- appearing asymmetric density is noted on the left posteromedially, similar to the prior study. Partially visualized axillary lymph nodes are noted bilaterally which appear grossly unremarkable. Procedure Note Zachary Brizuela MD - 12/01/2024 Examination: BI MAMMOGRAM SCREENING TOMOSYNTHESIS BILATERAL Clinical History: screening Technique: Screening digital mammography study of both breasts wasperformed with 2-D and 3-D tomosynthesis imaging. Study was compared tothe prior exam dated 07/01/2022. Findings: There is no evidence of interval dominant spiculated mass,grouped microcalcifications, or skin thickening which would be suggestiveof malignancy. A few scattered benign calcifications are seen bilaterally. Smallbenign- appearing asymmetric density is noted on the left posteromedially,similar to the prior study. Partially visualized axillary lymph nodes arenoted bilaterally which appear grossly unremarkable. IMPRESSION: Impression: No specific evidence of malignancy seen in either breast. BIRADS 2 - Benign Findings DENSITY: The breasts are almost entirely fatty. FOLLOW-UP: Routine Screening Mammogram ELECTRONICALLY SIGNED BY: Zachary Brizuela M.D. us Hazel Molina MD IMG BI PROCEDURES Final Resul t * US Soft Tissue Palpable Mass (12/01/2024 11:59 AM EDT) Anatomical Region Laterality Modality Right Ultrasound 12/04/2024 10:2 5 AM EDT Narrative 12/04/2024 10:25 AM EDT EXAM: US SOFT TISSUE PALPABLE MASS HISTORY: Palpable lump right forearm. COMPARISON: None available. TECHNIQUE: Two-dimensional grayscale ultrasound imaging of the right forearm was performed. Color flow imaging was also performed. FINDINGS: There is a 1.7 cm avascular, isoechoic area visualized within the right forearm. No focal fluid collections are demonstrated. IMPRESSION: 1. Avascular, isoechoic area within the right forearm. This area may represent a lipoma. Interpreted by: Electronically signed by BRANDO HERRERA II, MD, PHD at 04-Dec-2024 10:23:23 AM [facility] Procedure Note Brando Herrera MD - 12/04/2024 EXAM: US SOFT TISSUE PALPABLE MASS HISTORY: Palpable lump right forearm. COMPARISON: None available. TECHNIQUE: Two-dimensional grayscale ultrasound imaging of the rightforearm was performed. Color flow imaging was also performed. FINDINGS: There is a 1.7 cm avascular, isoechoic area visualized within the rightforearm. No focal fluid collections are demonstrated. IMPRESSION: 1. Avascular, isoechoic area within the right forearm. This area mayrepresent a lipoma. Interpreted by: Electronically signed by BRANDO HERRERA II, MD, PHD [id number] 10:23:23 AM [facility] us Hazel Molina MD IMG US PROCEDURES Final Resul t * CT lung screening low dose (12/01/2024 11:48 AM EDT) Anatomical Region Laterality Modality Lung Computed Tomogra phy 12/02/2024 2:27 PM EDT Impressions 12/04/2024 7:34 AM EDT Lung Rads: LUNGRADS 1 - Negative Follow-up Recommendation: LDCT 1 Year Lung Rads categories: Category 0: Incomplete Additional Imaging Categories 1 & 2: Negative/Benign Continue annual screening Category 3: Probable benign 6 month f/u CT Chest wo Category 3s: Clinically significant or potentially clinically significant findings Category 4A/B Suspicious 4A: [address] Chest wo; PET/CT when > 8mm solid nodule component exists 4B: Chest w/ contrast; PET/CT and/or biopsy Category 5: Highly suspicious for Nodules with strong evidence of malignancy, requiring malignancy. immediate biopsy. Category 6: Incomplete Insufficient Information All CT scans at this facility use dose modulation, iterative reconstruction, and/or weight based dosing when appropriate to reduce radiation dose to as low as reasonably achievable. TRANSCRIBED BY: ELECTRONICALLY SIGNED BY: Eder Barraza MD Narrative 12/04/2024 7:[address] EDT LOW DOSE CT IMAGING OF THE CHEST WITHOUT INTRAVENOUS CONTRAST MEDIUM. HISTORY: Tobacco use. TECHNICAL FACTORS: Without IV contrast axial helical 1.25mm slice thickness low dose images of the chest performed for lung cancer screening. Findings: No suspicious lung nodule, mass or parenchymal consolidation. No significant hilar or mediastinal lymphadenopathy. No pleural or pericardial effusion. Procedure Note Eder Barraza MD - 12/04/[address] IMAGING OF THE CHEST WITHOUT INTRAVENOUS CONTRAST MEDIUM. HISTORY: Tobacco use. TECHNICAL FACTORS: Without IV contrast axial helical 1.25mm slice thickness low dose imagesof the chest performed for lung cancer screening. Findings: No suspicious lung nodule, mass or parenchymal consolidation. Nosignificant hilar or mediastinal lymphadenopathy. No pleural orpericardial effusion. IMPRESSION: Lung Rads: LUNGRADS 1 - Negative Follow-up Recommendation: LDCT 1 Year Lung Rads categories: Category 0: Incomplete Additional Imaging Categories 1 & 2: Negative/Benign Continue annual screening Category 3: Probable benign 6 month f/u CT Chest wo Category 3s: Clinicallysignificant or potentially clinically significant findings Category 4A/B Suspicious 4A: [address] Chest wo;PET/CT when > 8mm solid nodulecomponent exists 4B: Chestw/ contrast; PET/CT and/or biopsy Category 5: Highly suspicious for Nodules with strong evidenceof malignancy, requiring malignancy. immediatebiopsy. Category 6: Incomplete Insufficient Information All CT scans at this facility use dose modulation, iterativereconstruction, and/or weight based dosing when appropriate to reduceradiation dose to as low as reasonably achievable. TRANSCRIBED BY: ELECTRONICALLY SIGNED BY: Eder Barraza MD Hazel Molina MD IMG CT PROCEDURES Final Resul t * Microalbumin / creatinine, urine ratio (08/08/2024 9:46 AM EST) CREATININE, RANDOM URINE 221 20 - 275 mg/dL [facility] ALBUMIN, URINE 1.7 See Note: mg/dL [facility] Comment: Reference Range: Reference Range Not established ALBUMIN/CREATININE RATIO, RANDOM URINE 8 <30 mg/g creat [facility] Comment: The ADA defines abnormalities in albumin excretion as follows: Albuminuria Category Result (mg/g creatinine) Normal to Mildly increased <30 Moderately increased 30-299 Severely increased > OR = 300 The ADA recommends that at least two of three specimens collected within a 3-6 month period be abnormal before considering a patient to be within a diagnostic category. Urine Urine specimen obtained by clean catch procedure / Unknown 08/08/2024 9:46 AM EST 08/08/2024 2:44 PM EST Narrative Resulting Agency Comment Performing Organization Information Site ID: [id number] Name: [facility] Address: [address] [place] [address], [address] [place] [id number] Director: Ben Puente MD us Hazel Molina MD LAB URINE ORDERABLES Final Re sult [facility] * Cologuard?? colon cancer screening (03/16/2023 2:00 PM EDT) NONINV COLON CA DNA+OCC BLD SCRN STL-IMP Negative Negative 03/22/2023 6:13 PM EDT [facility] (CLIA #:[id number]) Comment: NEGATIVE TEST RESULT. A negative Cologuard result indicates a low likelihood that a colorectal cancer (CRC) or advanced adenoma (adenomatous polyps with more advanced pre-malignant features) is present. The chance that a person with a negative Cologuard test has a colorectal cancer is less than 1 in 1500 (negative predictive value >99.9%) or has an advanced adenoma is less than 5.3% (negative predictive value 94.7%). These data are based on a prospective cross-sectional study of 10,000 individuals at average risk for colorectal cancer who were screened with both Cologuard and colonoscopy. (Denis Paul, N Engl J Med 2014;370(14):6420-8762) The normal value (reference range) for this assay is negative. COLOGUARD RE-SCREENING RECOMMENDATION: Periodic colorectal cancer screening is an important part of preventive healthcare for asymptomatic individuals at average risk for colorectal cancer. Following a negative Cologuard result, the [place] [employer] and U.S. Multi-Society Task Force screening guidelines recommend a Cologuard re-screening interval of 3 years. References: [place] [employer] Guideline for Colorectal Cancer Screening: https://www.cancer.org/cancer/evrsv-kqyomx-hahfzc/zggzgfsfx-qxvkxfbkc-phvkdsa/ac s-rec ommendations.html.; Bill DK, Best CR, [place], Colorectal Cancer Screening: Recommendations for Physicians and Patients from the U.S. Multi-Society Task Force on Colorectal Cancer Screening , Am J Gastroenterology 2017; 112:0401-8114. TEST DESCRIPTION: Composite algorithmic analysis of stool DNA-biomarkers with hemoglobin immunoassay. Quantitative values of individual biomarkers are not reportable and are not associated with individual biomarker result reference ranges. Cologuard is intended for colorectal cancer screening of adults of either sex, 45 years or older, who are at average-risk for colorectal cancer (CRC). Cologuard has been approved for use by the U.S. FDA. The performance of Cologuard was established in a cross sectional study of average-risk adults aged 50-84. Cologuard performance in patients ages 45 to 49 years was estimated by sub-group analysis of near-age groups. Colonoscopies performed for a positive result may find as the most clinically significant lesion: colorectal cancer [4.0%], advanced adenoma (including sessile serrated polyps greater than or equal to 1cm diameter) [20%] or non- advanced adenoma [31%]; or no colorectal neoplasia [45%]. These estimates are derived from a prospective cross-sectional screening study of 10,000 individuals at average risk for colorectal cancer who were screened with both Cologuard and colonoscopy. (Denis Paul, N Engl J Med 2014;370(14):6362-5146.) Cologuard may produce a false negative or false positive result (no colorectal cancer or precancerous polyp present at colonoscopy follow up). A negative Cologuard test result does not guarantee the absence of CRC or advanced adenoma (pre-cancer). The current Cologuard screening interval is every 3 years. ([place] [employer] and U.S. Multi-Society Task Force). Cologuard performance data in a 10,000 patient pivotal study using colonoscopy as the reference method can be accessed at the following location: www.[facility].SeedInvest/results. Additional description of the Cologuard test process, warnings and precautions can be found at www.cologuard.com. Stool specimen (specimen) 03/16/2023 2:00 PM EDT 03/18/2023 7:06 PM EDT Kimberley Morgan DO LAB MOLECULAR DIAGNOSTICS ORDER PALOMA Final Result .Art[employer] (CLIA #:[id number]) [address] [id number], Dot[employer] (CLIA #:[id number]) [address] [id number] * (ABNORMAL) Q - THINPREP(R) TIS AND HPV MRNA E6/E7 RFL HPV 16,18/45 (09/09/2017) RESULTS SEE NOTE(A) [facility] Comment: GYNECOLOGICAL CYTOLOGY REPORT THINPREP TIS PAP AND HPV mRNA, E6/E7 REFLEX HPV 16,18/45 Thinprep-TIS REPORT STATUS: FINAL CLINICAL INFORMATION: Information not provided SLIDES / SOURCE: 1 / Information not provided STATEMENT OF ADEQUACY: Satisfactory for evaluation. Endocervical/transformation zone component present. INTERPRETATION/RESULT: Negative for intraepithelial lesion or malignancy. Shift in vaginal isaiah suggestive of bacterial vaginosis. COMMENT: This Pap test has been evaluated with computer assisted technology. PSYCHOLOGY PHYSICIAN: BINDU CISNEROS(ASCP) For informational Purposes: All cytology specimens are processed and screened at [facility]. [address] [place] [address], BINDU RODRIGUEZ(ASCP) For informational Purposes: All cytology specimens are processed and screened at [facility]. [address] [place] [address] HPV mRNA E6/E7 RFX HPV 16, 18/45 HPV mRNA E6E7 Detected REFERENCE RANGE: NOT DETECTED This test was performed using the APTIMA HPV Assay ([employer] This assay detects E6/E7 viral messenger RNA (mRNA) from 14 high-risk HPV types (16,18,31,33,35,39,45,51,52,56,58,59,66,68). For more information on the limitations of this test, visit: http://www.Abs[employer]utData/testcenter/ testguide.action?dc=TS_HPV_HighRiskE6_E7_TMA HPV GENOTYPES 16,18/45 HPV 16 RNA TMA NOT DETECTED HPV 18/45 RNA TMA NOT DETECTED 09/09/2017 us Radha Pino MD [facility] Final Result [facility] from Last 3 Months or Most Recently Relevant to Health Maintenance Insurance [employer] Care Teams Manager State Relationship Specialty Start Date End Date [place] Molina MD [address] [facility] [place], [place] [id number] PCP - General Family Medicine 10/28/23 Daphney Hubbard MD [address] [facility] [place], [place] [id number] PCP - Medical [facility] 07/05/2407/04
--- OUTSIDE RECORDS SUMMARY | 2025-02-19 09:41 | XMS_ITS | Clinical Summary ---
Author Organization [facility] Address [address] [place] [address] Care Team Providers Care Hazardous Waste Material Technician Name Role Phone Kimberley Morgan Primary Care Provider Unav ailable Allergies Active Allergy Reactions Criticality Noted Date Comments Ibuprofen Unknown 06/04/2021 Upset stomach Tramadol Unknown 06/04/2021 Upset stomach Medications clonazePAM (KLONOPIN) 0.5 mg tablet Take 0.5 mg by mouth twice daily. 0 Active QUEtiapine (SEROQUEL) 400 mg tablet Take 400 mg by mouth daily at bedtime. 1 Active lamoTRIgine (LAMICTAL) 200 mg tablet Take 300 mg by mouth once daily as needed. Active amLODIPine (NORVASC) 10 mg tablet Take 10 mg by mouth once daily. 1 Active DESVENLAFAXINE SUCCINATE ORAL Take 100 mg by mouth. Once daily. Active Estradiol (ESTRACE) 0.5 mg tablet Take 0.5 mg by mouth once daily. 1 Active aspirin, enteric coated (ASPIRIN, ENTERIC COATED) 81 mg EC tablet Take 81 mg by mouth once daily. 1 Active fluticasone propionate (FLONASE NASAL) Use in the nose. OTC, 2 times daily. Active lamoTRIgine (LAMICTAL) 100 mg tablet 2 Active loratadine (CLARITIN) 10 mg tablet Loratadine Active 10 MG PO Daily January 07, 2021 7:15am 1 Active unaff-ak-3-dha-epa -phospho-ast 1,831-662-66-80 mg cap Take by mouth. Activ e PNV Comb No.59/Iron/FA/DHA (-DHA ORAL) Take by mouth. Activ e vitamin b complex (VITAMINS B COMPLEX) capsule Take 1 capsule by mouth once daily. Active Cholecalciferol, Vitamin D3, (VITAMIN D-3) 50 mcg (2,000 unit) cap Take by mouth. Activ e celecoxib (CELEBREX) 200 mg capsuleIndications :Secondary osteoarthritis of multiple sites Take 1 capsule by mouth two times a day. 180 capsule 3 Active cyclobenzaprine (FLEXERIL) 5 mg tabletIndications: Cervicalgia,Chroni c bilateral low back pain with bilateral sciatica Take 1-2tab by mouth per day. May cause drowsiness 60 tablet 3 3 Active Active Problems Problem Noted Date Diagnosed Date Fibromyalgia 12/17/2021 Chronic pain syndrome 12/12/2021 Vitamin D deficiency 12/12/2021 Soft tissue swelling 06/06/2021 Secondary osteoarthritis of multiple sites 06/05 Chronic bilateral low back pain with bilateral s ciatica 06/05/2021 Cervicalgia 06/05/2021 Bilateral hand pain 06/05/2021 Chronic pain of both knees 06/05/2021 Chronic left shoulder pain 06/05/2021 Chronic hip pain, bilateral 06/05/2021 Elevated C-reactive protein (CRP) 06/05/2021 Social History Tobacco Use Types Packs/Day Years Used Date Smoking Tobacco: Every Day Cigarettes 1 1 Smokeless Tobacco: Never Tobacco Cessation:Ready to Q uit: No; Counseling Given: Yes Alcohol Use Standard Drinks/Week Comments Yes 0 (1 standard drink = 0.6 oz pur e alcohol) rarely. Area Deprivation Index Answer Date Bolivar rded National Score (1-100), lower number is lower ri sk 95 08/02/2022 State Score (1-10), lower number is lower risk N ot on file 08/02/2022 Data from: https://www.neighborhoodatlas.medicine.[facility].edu/. Last address used for calculation [address] [place] [address] [address] 08/02/2022 Comments Unknown Sex and Gender Information Value Date Recorded Sex Assigned at Not on file Legal Sex Female 10:38 AM EDT Gender Identity Not on file Sexual Orientation Not on file Last Filed Vital Signs Vital Sign Reading Time Taken Comments Blood Pressure 125/87 12/12/2021 10:43 AM EDT Pulse 88 12/12/2021 10:43 AM EDT Temperature - - Respiratory Rate - - Oxygen Saturation - - Inhaled Oxygen Concentration - - Weight 97.5 kg (215 lb) 12/12/2021 10:43 AM EDT Height 163.7 cm (5' 4.45 ) 06/04/2021 12:[address] Body Mass Index 36.39 06/04/2021 12:57 PM EST Plan of Treatment Health Maintenance Due Date Last Done Comments Anxiety Screening 1986 Depression Screening 1986 HIV Screening 1986 DTaP,Tdap,Td Vaccine (1 - Tdap) 1987 Hepatitis B Vaccine (1 of 3 - 19+ 3-dose series) 1987 Cervical Cancer Screening 1989 CT Colonography 2013 Colonoscopy 2013 Fecal Occult Blood 2013 Sigmoidoscopy 2013 Pneumococcal Vaccine: 50+ (1 of 1 - PCV) 2018 Shingrix Vaccine (1 of 2) 2018 Mammogram Screening 06/17/2021 06/17/2020, 06/17/2020, 05/22/2019, Additional history exists Cologuard (FIT-DNA) 01/19/2022 01/19/2019 Colorectal Cancer Screening 01/19/2022 Lipid Screening 06/09/2023 06/09/2018 Diabetes Screening 12/12/2024 12/12/2021, 1 08/05/2020, 06/26/2020, Additional history exists Influenza Vaccine (#1) 2025 04/06/2019, 2015 Hepatitis C Screening Completed 06/04/2021 Procedures Procedure Name Priority Date/Time Associated Diagnosis Comments COMPREHENSIVE METABOLIC PANEL Routine 12/12/2021 11:49 AM EDT Elevated LFTs *HEP C AB Routine 06/04/2021 2:45 PM EST Elevated LFTs from Last 3 Months or Most Recently Relevant to Health Maintenance Results * (ABNORMAL) COMP METABOLIC PANEL (12/12/2021 11:49 AM EDT) Protein, Total 6.9 6.3 - 8.0 g/dL 12/12/2021 5:25 PM EDT [facility] Albumin 4.2 3.9 - 4.9 g/dL 12/12/2021 5:25 PM EDT [facility] Calcium, Total 9.6 8.5 - 10.2 mg/dL 12/12/2021 5:25 PM EDT [facility] Bilirubin, Total <0.2(L) 0.2 - 1.3 mg/dL 12/12/2021 5:25 PM EDT [facility] Alkaline Phosphatase 140(H) 34 - 123 U/L 12/12/2021 5:25 PM EDT [facility] AST 24 13 - 35 U/L 12/12/2021 5:25 PM EDT [facility] ALT 23 7 - 38 U/L 12/12/2021 5:25 PM [facility] Glucose 93 74 - 99 mg/dL 12/12/2021 5:25 PM [facility] Comment: The [place] Diabetes Association (ADA) provides [...] [place] Diabetes Association. Diabetes Care. 2016.39(Suppl 1). BUN 11 7 - 21 mg/dL 12/12/2021 5:25 PM [facility] Creatinine 0.86 0.58 - 0.96 mg/dL 12/12/2021 5:25 PM [facility] Sodium 138 136 - 144 mmol/L 12/12/2021 5:25 PM [facility] Potassium 4.3 3.7 - 5.1 mmol/L 12/12/2021 5:25 PM [facility] Chloride 104 97 - 105 mmol/L 12/12/2021 5:25 PM EDT [facility] CO2 24 22 - 30 mmol/L 12/12/2021 5:25 PM EDT [facility] Anion Gap 10 9 - 18 mmol/L 12/12/2021 5:25 PM EDT [facility] Estimated Glomerular Filtration Rate 81 >=60 mL/min/1. 73m 12/12/2021 5:25 PM EDT [facility] Comment:Estimated Glomerular Filtration Rate (eGFR) is calculated using the 2020 CKD-EPI creatinine equation. This equation utilizes serum creatinine, sex, and age as parameters. The creatinine assay has traceable calibration to isotope dilution- mass spectrometry. Refer to KDIGO guidelines for clinical interpretation. In patients with unstable renal function, e.g. those with acute kidney injury, the eGFR may not accurately reflect actual GFR. Blood BLOOD SPECIMEN / Unknown Venipuncture / Unknown 12/12/2021 11:49 AM EDT 12/12/2021 11:50 AM EDT Jailyn Cole MD LABORATORY Final Result Performing Organization Address City/[facility] [place] [address], * HEP REMOTE PANEL BL (06/04/2021 2:45 PM EST) Hep B Core Ab, Total Negative Negative 06/05/2021 5:26 PM EST [facility] Hep C Antibody IA Negative Negative 06/05/2021 5:27 PM EST [facility] HBsAg Negative Negative 06/05/2021 5:26 PM EST [facility] Hep B Surface Ab, Qual Negative Negative 06/05/2021 5:27 PM EST [facility] Comment:NEGATIVE Blood OTHER / Unknown 06/04/2021 2 :45 PM EST 06/04/2021 2:47 PM EST us Jailyn Cole MD LABORATORY Final Result Performing Organization Address [facility]/ZIP Co de Phone Number [place] [phone] [facility] [address] [place] [address] from Last 3 Months or Most Recently Relevant to Health Maintenance Insurance [address] [place] [address] [facility] Care Teams Hazardous Waste Material Technician Relationship Specialty Start Date End Date Kimberley Morgan DO PCP - General Family Medicine 06/04/21
--- OUTSIDE RECORDS SUMMARY | 2025-02-19 09:41 | XMS_ITS | Encounter Summary ---
Author Organization [facility] Address [address] [place] [address] Care Team Providers Care Reservations Agent Name Role Phone Kimberley Morgan Primary Care Provider Unav ailable Source Comments In the event this information is protected by the Federal Confidentiality of Alcohol and Drug AbusePatient Records regulations: The Federal rules restrict any use of the information to criminally investigate or prosecute any alcohol or drug abuse patient.[facility] Encounter Details Date Type Department Care Team (Late st Contact Info) Description 12/12/2021 Get Medical Advice Rheumatology [address] [place] [address] Jailyn Cole MD [address] [place] [address] Fibromyalgia Social History Tobacco Use [...] N ot on file 12/12/2021 Data from: https://www.neighborhoodatlas.medicine.[facility].edu/. Last address used for calculation [address] [place] [address] 12/12/2021 Comments Unknown Sex and Gender [...] on filedocumented in this encounter Care Teams Reservations Agent Relationship Specialty Start Date End Date Kimberley Morgan DO PCP - General Family Medicine 06/04/21 documented as of this encounter
--- OUTSIDE RECORDS SUMMARY | 2025-02-19 09:41 | XMS_ITS | Encounter Summary ---
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 Not on file N ot on file documented as of this encounter Plan of Treatment Upcoming Encounters Date Type Department Care Team (Late st Contact Info) Description 04/06/2025 11:15 AM EDT Office Visit [facility] [address] [place] [address] John Gauthier, DPM [address] [place] [address] 05/17/2025 10:20 AM EST Office Visit [facility] [address] [facility] [place] [phone] [place] MD [address] [facility] [place] [address] documented as of this encounter Visit Diagnoses Not on filedocumented in this encounter Additional Health Concerns Assessment Noted Time PHQ-9 Depression Total Score: 6 11/08/19 25 10:00 AM EDT documented as of this encounter Care Teams Order Caller Relationship Specialty Start Date End Date [place]ina MD [address] [facility] [place] [address] PCP - General Family Medicine 10/28/23 Daphney Hubbard MD [address] [facility] [place] [address] PCP - Medical [place] 07/05/2407/04 documented as of this encounter
--- OUTSIDE RECORDS SUMMARY | 2025-02-19 09:41 | XMS_ITS | Encounter Summary ---
Author Organization [facility] Address [address] [place] [address] Care Team Providers Care Research/Program Director Name Role Phone Kimberley Morgan Primary Care Provider Unav ailable Source Comments In the event this information is protected by the Federal Confidentiality of Alcohol and Drug AbusePatient Records regulations: The Federal rules restrict any use of the information to criminally investigate or prosecute any alcohol or drug abuse patient.[facility] Encounter Details Date Type Department Care Team (Late st Contact Info) Description 05/13/2022 Get Medical Advice Rheumatology [address] [place], [place] [phone] Jailyn Cole MD [address] [place] [address] Certification Social History Tobacco Use Types Packs/Day Years [...] N ot on file 12/12/2021 Data from: https://www.neighborhoodatlas.medicine.[facility].edu/. Last address used for calculation [address] [place] [address] 12/12/2021 Comments Unknown Sex and Gender Information Value Date Recorded Sex Assigned at Not on file Legal Sex Female 10:38 AM EDT Gender Identity Not on file Sexual Orientation Not on file documented as of this encounter Miscellaneous Notes * Telephone Encounter - Jailyn Cole MD - 05/15/2022 6:03 AM EST Form completed. Please process accordingly. Scan copy into [employer]. Notify patient when above completed but form likely needs to be completed by original disability physician/team. Thank you. * Telephone Encounter - Nadine Bruce LPN - 05/14/2022 7:12 AM EST Form placed on your desk for review/completion. documented in this encounter Plan of Treatment Not on file documented as of this encounter Visit Diagnoses Not on filedocumented in this encounter Care Teams Research/Program Director Relationship Specialty Start Date End Date Kimberley Morgan DO PCP - General Family Medicine 06/04/21 documented as of this encounter
--- OUTSIDE RECORDS SUMMARY | 2025-02-19 09:46 | XMS_ITS | CCD ---
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 and history of mental health and substance abuse codes (20 sources) History of mood disorder; Translations: [Personal history of other mental and behavioral disorders] Onset: 7 01-19-2023 Episodic Skin and subcutaneous tissue infections (20 sources) Cellulitis of face; Translations: [Cellulitis of face] Onset: 7 01-19-2023 Episodic Spondylosis; intervertebral disc disorders; other back problems (20 sources) Chronic low back pain; Translations: [Lumbago with sciatica, left side] Onset: 7 Resolved: 2 Episodic Substance-related disorders (20 sources) Marijuana user; Translations: [Cannabis use, unspecified, uncomplicated] Onset: 3 02-11-2023 Episodic Unclassified (1 source) Inappropriate sinus tachycardia, so stated; Translations: [Inappropriate sinus tachycardia, so stated] Onset: 5 Viral infection (20 sources) Herpes zoster without complication; Translations: [Zoster without complications] Onset: 7 01-19-2023 Episodic Results Test Name Value Interpretation Reference Range Facility 36 01-11-2025 36 AMBER Landa, [facility], If you have a denial letter from your insurance, please bring it in to us so we can submit medical description/documentation. We have not received a denial from your insurance. Most generally monitors do not require a pre certification. We would like to take a look at the rejection letter. Thank you Previous Messages ----- Message ----- From:Lexi Garcia Sent:12/06/2024 1:55 PM EDT To:User Message Message List Subject:Your Recent Visit My insurance denied my claim for heart monitor. They were not supplied with previous requested medical description and/or documentation to complete. *pre certification? ----- Message ----- From:Christy Culver CNP Sent:11/08/2024 4:41 PM EDT To:Lexi Garcia Subject:Your Recent Visit Hi Ms. Garcia, Thank you for letting us care for you during your recent visit on 11/08/2024 at [facility]. Don't forget that you can review your After-Visit Summary by navigating to the [email or web address][Visit Summaries] page. If you have any questions about the care you received, please don't hesitate to reply to this message at any time. Sincerely, Your Care Team Normal [facility] BI MAMMOGRAM SCREENING TOMOS YNTHESIS BILATERALon 12-01-2024 BI MAMMOGRAM SCREENING TOMOSYNTHESIS BILATERAL This is a summary report. The complete report is available in the patient's medical record. If you cannot access the medical record, please contact the sending organization for a detailed fax or copy. Examination: BI MAMMOGRAM SCREENING TOMOSYNTHESIS BILATERAL Clinical [...] scattered benign calcifications are seen bilaterally. Small benign-appearing asymmetric density is noted on the left posteromedially, similar to the prior study. Partially visualized axillary lymph nodes are noted bilaterally which appear grossly unremarkable. IMPRESSION: Impression: No specific evidence of malignancy seen in either breast. BIRADS 2 - Benign Findings DENSITY: The breasts are almost entirely fatty. FOLLOW-UP: Routine Screening Mammogram ELECTRONICALLY SIGNED BY: Zachary Brizuela M.D. Normal Not Available CT LUNG SCREENING LOW DOSEon 12-01-2024 CT LUNG SCREENING LOW DOSE This is a summary report. The complete report is available in the patient's medical record. If you cannot access the medical record, please contact the sending organization for a detailed fax or copy. LOW DOSE CT IMAGING OF THE CHEST WITHOUT INTRAVENOUS CONTRAST MEDIUM. HISTORY: Tobacco use. TECHNICAL FACTORS: Without IV contrast axial helical 1.25mm slice thickness low dose images of the chest performed for lung cancer screening. Findings: No suspicious lung nodule, mass or parenchymal consolidation. No significant hilar or mediastinal lymphadenopathy. No pleural or pericardial effusion. IMPRESSION: Lung Rads: LUNGRADS 1 - [...] BY: ELECTRONICALLY SIGNED BY: Eder Barraza MD Normal Not Available US SOFT TISSUE PALPABLE MASS on 12-01-2024 US SOFT TISSUE PALPABLE MASS EXAM: US SOFT TISSUE PALPABLE MASS HISTORY: [...] lipoma. Interpreted by: Electronically signed by BRANDO GALAVIZ II, MD, PHD at 04-Dec-2024 10:23:23 AM [facility] Normal Not Available 37on 11-08-2024 37 *Increase metoprolol to 50mg daily. You can take 2 tablets of your current prescription until this runs out then start the new prescription of 1 tablet, 50mg daily. *Follow-up in 3 months with a heart ultrasound prior. Normal [facility] Laboratory - Hematology and Cell countson 11-08-2024 HbA1c (Bld) [Mass fraction] 6.1 % [facility] No Panel Informationon 11-08 Interpretation and review of laboratory results Normal [facility] Office Visiton 11-08-2024 Follow-up visit [id number] Nikko Garcia 1970 F Date Provider Department Center 11/08/2024 Haroon-TIM CULVER [facility] Family History Problem Relation Age of Onset COPD Mother Heart failure Mother Coronary artery disease Father 56 Family Status - Relation Status Age at Mother Father Sister Alive Brother Alive Level of Service:67492 RI OFFICE/OUTPATIENT ESTABLISHED MOD MDM 30 MIN Reason for Visit and Comments: Palpitations [456417] [facility] Office Visiton 10-17-2024 Follow-up visit [id number] Nikko Garcia 1970 F Date Provider Department Center 10/17/2024 TIM CORONEL [facility] Family History Problem Relation Age of Onset COPD Mother Heart failure Mother Coronary artery disease Father 56 Family Status - Relation Status Age at Mother Father Sister Alive Brother Alive Level of Service:08292 RI OFFICE/OUTPATIENT ESTABLISHED MOD MDM 30 MIN Reason for Visit and Comments: Palpitations [813511] Hypertension [385560] Coronary Artery Disease [187] Chest Pain [198278] [facility] Orders Onlyon 08-07-2024 Orders Only [id number] Nikko Garcia 1970 F Date Provider Department Center 08/07/2024 Amanda-JESSIE REID [facility] Family History Problem Relation Age of Onset COPD Mother Coronary artery disease Father 56 Family Status - Relation Status Age at Mother Alive Father [facility] Orders Onlyon 08-04-2024 Orders Only [id number] Nikko Garciaa 1970 F Date Provider Department Center 08/04/2024 Amanda-JESSIE REID [facility] Family History Problem Relation Age of Onset COPD Mother Coronary artery disease Father 56 Family Status - Relation Status Age at Mother Alive Father [facility] 3608-03-2024 36 Ticket Worker called and wanted Dr. Rodriguez to clarify that the patient should be taking 3 pill a day instead of two [facility] 07-27-2024 36 [facility] Ticket Worker fr reggie Julio called and wanted to know can you clarify on the directions of how you want the patient to take her Celebrex medication because there is two different direction on how to take the Celebrex medication when the medcation was sent the from time [facility] Refillon 07-27-2024 Refill [id number] Nikko Garcia 1970 F Date Provider Department Center 07/27/2024 OVIDIO SANTILLAN C [facility] Family History Problem Relation Age of Onset COPD Mother Coronary artery disease Father 56 Family Status - Relation Status Age at Mother Alive Father Normal [facility] 36on 07-04-2024 36 Last Visit: 01/25/24 No Upcoming Visit Normal [facility] Refillon 07-04-2024 Refill [id number] Nikko Garcia 1970 F Date Provider Department Center 07/04/2024 SOLITARIO ADAMS C [facility] Family History Problem Relation Age of Onset COPD Mother Coronary artery disease Father 56 Family Status - Relation Status Age at Mother Alive Father Reason for Visit and Comments: Med Refill [194431] [facility] EGDon 06-09-2024 No dictation [facility] EGDOrdered By: User Epic on 06-09-2024 [facility] Work Phone: Surgical Pathology Reporton 06-09-2024 Surgical Pathology Report (NOTE) Path Number: [id number] -- Diagnosis -- DISTAL ESOPHAGUS, BIOPSY: -SQUAMOUS MUCOSA WITH NO PATHOLOGIC DIAGNOSIS Curtis Leroy D.O. Electronically Signed Out [facility]/06/13/2024 Clinical Information Pre-Op Diagnosis: GERD (GASTROESOPHAGEAL REFLUX DISEASE) Operative Findings: DISTAL ESOPHAGUS BIOPSIES Operation Performed: ESOPHAGOGASTRODUODENOSCOPY BIOPSY se Source of Specimen A: DISTAL ESOPHAGUS BIOPSIES Gross Description LEXI GARCIA DISTAL ESOPHAGUS BIOPSIES Received in formalin are two pink-rosado tissue fragments from 0.2 to 0.4 cm and are 0.4 x 0.3 x 0.2 cm in aggregate. Entirely 1 cs. ritesh Lozano M.D./se:06/12/2024 Microscopic Description Microscopic examination performed. Processing Lab: [facility] [address] [place] [address] Interpretation Performed at [facility] [address] [place] [address] SURGICAL PATHOLOGY CONSULTATION Patient Name: LEXI GARCIA [facility] Rec: [id number] [facility] [employer] ANATOMIC PATHOLOGY [address] [place] [phone] [facility] Orders Onlyon 05-17-2024 Orders Only [id number] Nikko Garcia sreedhar 1970 F Date Provider Department Center 05/17/2024 3848-DALE HUTCHISON ALYSA Mays [facility] Family History Problem Relation Age of Onset COPD Mother Coronary artery disease Father 56 Family Status - Relation Status Age at Mother Alive Father Normal [facility] Office Visiton 05-04-2024 Follow-up visit [id number] Nikko Garcia sreedhar 1970 F Date Provider Department Center 05/04/2024 384DALE HUTCHISON Family History Problem Relation Age of Onset COPD Mother Coronary artery disease Father 56 Family Status - Relation Status Age at Mother Alive Father Level of Service:01668 RI OFFICE/OUTPATIENT ESTABLISHED LOW MDM 20 MIN Normal [facility] Surgical Pathology Reporton 02-03-2024 Surgical Pathology Report (NOTE) Path Number: [id number] -- Diagnosis -- A. STOMACH, ANTRUM, BIOPSIES: [...] GE JUNCTION BX Gross Description A. LEXI GARCIA GASTRIC ANTRAL BIOPSIES Received in formalin are [...] Description A-C. Microscopic examination performed. Processing Lab: [address] [address] Interpretation Performed at [address] [address] SURGICAL PATHOLOGY CONSULTATION Patient Name: LEXI GARCIA Med Rec: [id number] [facility] [employer] [facility] ANATOMIC PATHOLOGY [address] [place] [phone] [facility] Follow-Upon 01-25-2024 Follow-Up [id number] Nikko Garcia 1970 F Date Provider Department Center 01/25/2024 SOLITARIO ADAMS [facility] Family History Problem Relation Age of Onset COPD Mother Coronary artery disease Father 56 Family Status - Relation Status Age at Mother Alive Father Level of Service:37566 RI OFFICE/OUTPATIENT ESTABLISHED LOW MDM 20 MIN (GC) Reason for Visit and Comments: Follow-up [385808] - 3 mth follow up Normal [facility] Celiac Disease Panelon 09-13 Gliadin Deam Pep IgA 1.9 U/mL Normal <7.[address] [facility] Comment on above: Result Comment: CELIAC INTERPRETATION <7.0 Negative 7.0-10.0 Equivocal >10.0 Positive units: U/mL Performed By: #### C ELP #### [employer] [address] [place] [id number] Regroover: Talib Clements MD Gliadin Deam Pep IgG <0.4 Normal <7.[address] [facility] Comment on above: Result Comment: CELIAC INTERPRETATION <7.0 Negative 7.0-10.0 Equivocal >10.0 Positive units: U/mL Performed By: #### C ELP #### [address] [id number] Regroover: Talib Clements MD [employer]iss Transglutam IgA 0.4 U/mL Normal <7.[address] [facility] Comment on above: Result Comment: CELIAC INTERPRETATION <7.0 Negative 7.0-10.0 Equivocal >10.0 Positive units: U/mL Performed By: #### C ELP #### [address] [address] Regroover: Talib Clements MD IgA [Mass/Vol] 184 mg/dL Normal 70-400 [facility] Comment on above: Performed By: #### C ELP #### [address] [address] Regroover: Talib Clements MD H. pylori Antigenon 09-14-19 24 H. pylori Antigen Specimen Description .FECES Direct Exam NEGATIVE Report Status FINAL 09/14/2023 [facility] Comment on above: Performed By: #### F HPY #### [address] [address] Regroover: Talib Clements MD [facility] [address] [place] [address] Regroover: David Hough MD CBC AUTO DIFFon 10-07-2022 BASO # 0.0 103/ul Normal 0.0-0.1 [facility] Comment on above: Performed By: #### C BC #### [facility] [address] [place], [place] [address] Dr. Donna Cantrell Basophils/100 WBC (Bld) 0.5 % Normal 0.2-2.0 [facility] Comment on above: Performed By: #### C BC #### [facility] [address] [place] [address] Dr. Donna Cantrell EO # 0.0 103/ul Normal 0.0-0.7 [facility] Comment on above: Performed By: #### C BC #### [facility] [address] [place] [address] Dr. Donna Cantrell Eosinophils/100 WBC (Bld) 0.0 % Critically low 0.9-7.0 [facility] Comment on above: Performed By: #### C BC #### [facility] [address] [place] [address] Dr. Donna Cantrell Erythrocyte distribution width (RBC) [Ratio] 13.6 % Normal 11.0-15.0 [facility] Comment on above: Performed By: #### C BC #### [facility] [address] [place] [address] Dr. Donna Cantrell Hematocrit (Bld) [Volume fraction] 42.0 % Normal 36.0-48.0 [facility] Comment on above: Performed By: #### C BC #### [facility] [address] [place] [address] Dr. Donna Cantrell Hemoglobin (Bld) [Mass/Vol] 14.4 g/dL Normal 12.0-16.0 [facility] Comment on above: Performed By: #### C BC #### [facility] [address] [place] [address] Dr. Donna Cantrell IG # 0.06 10e3/ul Critically high 0.00-0.03 [facility] Comment on above: Performed By: #### C BC #### [facility] [address] [place] [address] Dr. Donna Cantrell IG % 0.8 % Critically high 0.0-0.5 [facility] Comment on above: Performed By: #### C BC #### [facility] [address] [place] [address] Dr. Donna Cantrell LYMPH # 2.5 103/ul Normal 1.2-3.8 [facility] Comment on above: Performed By: #### C BC #### [facility] [address] [place] [address] Dr. Donna Cantrell Lymphocytes/100 WBC (Bld) 30.8 % Normal 20.5-60.0 [facility] Comment on above: Performed By: #### C BC #### [facility] [address] [place] [address] Dr. Donna Cantrell MANUAL DIFF REQ NO Normal [facility] Comment on above: Performed By: #### C BC #### [facility] [address] [place] [address] Dr. Donna Cantrell MCH (RBC) [Entitic mass] 30.3 pg Normal 26.7-34.0 [facility] Comment on above: Performed By: #### C BC #### [facility] [address] [place] [address] Dr. Donna Cantrell MCHC (RBC) [Mass/Vol] 34.3 g/dL Normal 29.9-35.2 [facility] Comment on above: Performed By: #### C BC #### [facility] [address] [place] [address] Dr. Donna Cantrell MCV (RBC) [Entitic vol] 88.2 fL Normal 81.0-99.0 [facility] Comment on above: Performed By: #### C BC #### [facility] [address] [place] [address] Dr. Donna Cantrell MONO # 0.5 103/ul Normal 0.3-0.8 [facility] Comment on above: Performed By: #### C BC #### [facility] [address] [place] [address] Dr. Donna Cantrell Monocytes/100 WBC (Bld) 6.4 % Normal 1.7-12.0 [facility] Comment on above: Performed By: #### C BC #### [facility] [address] [place] [address] Dr. Donna Cantrell NEUT # 4.9 103/ul Normal 1.4-6.5 [facility] Comment on above: Performed By: #### C BC #### [facility] [address] [place] [address] Dr. Donna Cantrell Neutrophils/100 WBC (Bld) 61.5 % Normal 43.0-75.0 [facility] Comment on above: Performed By: #### C BC #### [facility] [address] [place] [address] Dr. Donna Cantrell Platelet mean volume (Bld) [Entitic vol] 9.9 fL Normal 9.5-13.5 [facility] Comment on above: Performed By: #### C BC #### [facility] [address] [place] [address] Dr. Donna Cantrell PLT 234 103/ul Normal 150-450 [facility] Comment on above: Performed By: #### C BC #### [facility] [address] [place] [address] Dr. Donna Cantrell RBC 4.76 106/ul Normal 4.20-5.40 [facility] Comment on above: Performed By: #### C BC #### [facility] [address] [place] [address] Dr. Donna Cantrell WBC 8.0 103/ul Normal 4.0-11.0 [facility] Comment on above: Performed By: #### C BC #### [facility] [address] [place] [address] Dr. Donna Cantrell PROF CHEM 8 (BAS METB)on Anion gap [Moles/Vol] 13.9 mmol/L Normal [facility] Comment on above: Performed By: #### B MP #### [facility] [address] [place] [address] Dr. Donna Cantrell Calcium [Mass/Vol] 8.9 mg/dL Normal 8.5-10.1 [facility] Comment on above: Performed By: #### B MP #### [facility] [address] [place] [address] Dr. Donna Cantrell Chloride [Moles/Vol] 104 mmol/L Normal 98-107 [facility] Comment on above: Performed By: #### B MP #### [facility] [address] [place] [address] Dr. Donna Cantrell CO2 [Moles/Vol] 26.3 mmol/L Normal 21.0-32.0 [facility] Comment on above: Performed By: #### B MP #### [facility] [address] [place] [address] [address] Donna Cantrell Creatinine [Mass/Vol] 0.91 mg/dL Normal 0.55-1.02 [facility] Comment on above: Performed By: #### B MP #### [facility] [address] [place] [address] [address] Donna Cantrell EGFR-AF GRENADIAN >60 Normal >=60 [facility] Comment on above: Performed By: #### B MP #### [facility] [address] [place] [address] [address] Donna Cantrell EGFR-NON AF GRENADIAN >60 Normal >=60 [facility] Comment on above: Performed By: #### B MP #### [facility] [address] [place] [address] [address] Donna Cantrell Glucose [Mass/Vol] 127 mg/dL Critically high 74-106 [facility] Comment on above: Performed By: #### B MP #### [facility] [address] [place] [address] [address] Donna Cantrell Potassium [Moles/Vol] 4.2 mmol/L Normal 3.5-5.1 [facility] Comment on above: Performed By: #### B MP #### [facility] [address] [place] [address] [address] Donna Cantrell Sodium [Moles/Vol] 140 mmol/L Normal 136-145 [facility] Comment on above: Performed By: #### B MP #### [facility] [address] [address] [address] Donna Cantrell Urea nitrogen [Mass/Vol] 15.0 mg/dL Normal 7.0-18.0 [facility] Comment on above: Performed By: #### B MP #### [facility] [address] [place] [address] [address] Donna Cantrell Urea nitrogen/Creatini ne [Mass ratio] 16.5 mg/mg Normal [facility] Comment on above: Performed By: #### B MP #### [facility] [address] [place] [address] Dr. Donna Cantrell PROTIMEon 10-07-2022 INR Coag (PPP) [Relative time] {INR} Normal [facility] Comment on above: Performed By: #### B LTM #### [facility] [address] [place] [address] Dr. Donna Cantrell INR GUIDELINES SEE BELOW Normal [facility] Comment on above: Result Comment: SHIRA RED INR: 2.0 - 3.0 CONDITIONS NOT LISTED BELOW 2.5 - 3.5 FOR PROSTHETIC HEART VALVE REPLACEMENT 2.5 - 3.5 RECURRENT THROMBOSIS Performed By: #### B LTM #### [facility] [address] [place] [address] Dr. Donna Cantrell PT Coag (PPP) [Time] 9.7 s Normal 9.0-11.6 [facility] Comment on above: Performed By: #### B LTM #### [facility] [address] [place] [address] Dr. Donna Cantrell PTTon 10-07-2022 aPTT Coag (Bld) [Time] 29.6 s Normal 22.3-36.2 [facility] Comment on above: Performed By: #### B LTM #### [facility] [address] [place] [address] Dr. Donna Cantrell SCREENING MAMMOGRAM W/AJ, BILATERAL*on [...] VERY IMPORTANT TO YOUR HEALTH. THE CURRENT [place] [employer] GUIDELINES RECOMMENDS ANNUAL MAMMOGRAPHY BEGINNING AT AGE 40 THIS FACILITY USES A REMINDER SYSTEM TO ENSURE ALL PATIENTS RECEIVE REMINDER NOTIFICATIONS AT THE APPROPRIATE TIME BASED ON THE RECOMMENDATIONS OF THIS EXAM. Report reported and signed by Eder Barraza on 07/01/2022 1545 Normal [facility] Marking Room Supervisor XR Shoulder Complete Right*o n 07-01-2022 XR [...] by Eder Barraza on 07/02/2022 0746 Normal [facility] Marking Room Supervisor XR Spine Lumbar Complete w/F jama AND [facility] 07-01-2022 XR Spine Lumbar Complete w/Flex AND [...] on 07/02/2022 0744 Normal [facility] Marking Room Supervisor [facility] LEXI GARCIA ([id number]) 1970 F Date Time Provider Department 12/17/21 GAYLE WASHINGTON During your visit today, we recorded the following information about you: Gayle Washington MD 12/17/2021 2:54 PM Signed Please Call patient if MyChart note not read to review results/released to My Chart if tests completed at [facility]: Mildly low vitamin D- increase [...] PO Daily January 07, 2021 7:15am - [id number] t [id number] mg cap Take by mouth. - PNV [...] - [employer] (more content not included)... Normal [facility] BLEEDING TIMEon 12-16-2021 BLEEDING TIME 7.0 min Normal 1.0-8.0 [facility] Comment on above: Result Comment: test done by Selam Almodovar Performed By: #### B LTM #### [facility] [address] [place] [address] Dr. Donna Cantrell 25(OH)D3 [facility] 25-hydroxyvitamin D3 [Mass/Vol] 29.6 ng/mL Low 31.0-80.0 [facility] Comment on above: Order Comment: Speci men Type: BLOOD SPECIMEN Ordering Facility: [facility] Address: [address] [place] [address] Result Comment: Clas sification of 25 [place] Vitamin D status: Deficiency/Insufficiency: < or = 30 ng/ml. Sufficiency/Optimal Levels: 31-80 ng/mL Toxicity: > 100 ng/mL. Test performed by chemiluminescent immunoassay. Performed By: #### 1 989-3 #### [facility] CLIA [id number] [address] [place] [address] [place] CBC panel Auto (Bld)on 12-12 Erythrocyte distribution width (RBC) [Ratio] 14.4 % Normal 11.5-15.0 [facility] Comment on above: Order Comment: Renetta weber Type: BLOOD SPECIMEN Ordering Facility: [facility] Address: [address] [place] [address] Performed By: #### 5 8410-2 #### [facility] CLIA [id number] [address] [place] [address] [place] Hematocrit (Bld) [Volume fraction] 45.2 % Normal 36.0-46.0 [facility] Comment on above: Order Comment: Speci men Type: BLOOD SPECIMEN Ordering Facility: [facility] Address: [address] [place] [address] Performed By: #### 5 8410-2 #### [facility] CLIA [id number] [address] [place] [address] [place] Hemoglobin (Bld) [Mass/Vol] 14.8 g/dL Normal 11.5-15.5 [facility] Comment on above: Order Comment: Speci men Type: BLOOD SPECIMEN Ordering Facility: [facility] Address: [address] [place] [address] Performed By: #### 5 8410-2 #### [facility] CLIA [id number] [address] [place] [address] [place] MCH (RBC) [Entitic mass] 29.7 pg Normal 26.0-34.0 [facility] Comment on above: Order Comment: Speci men Type: BLOOD SPECIMEN Ordering Facility: [facility] Address: [address] [place] [address] Performed By: #### 5 8410-2 #### [facility] CLIA [id number] [address] [place] [address] [place] MCHC (RBC) [Mass/Vol] 32.7 g/dL Normal 30.5-36.0 [facility] Comment on above: Order Comment: Speci men Type: BLOOD SPECIMEN Ordering Facility: [facility] Address: [address] [place], [place] [address] Performed By: #### 5 8410-2 #### [facility] CLIA [id number] [address] [place] [address] [place] MCV (RBC) [Entitic vol] 90.8 fL Normal 80.0-100.0 [facility] Comment on above: Order Comment: Speci men Type: BLOOD SPECIMEN Ordering Facility: [facility] Address: [address] [place], [place] [address] Performed By: #### 5 8410-2 #### [facility] CLIA [id number] [address] [place] [address] [place] Nucleated RBC (Bld) [#/Vol] 10*3/uL Normal <0.01 [facility] Comment on above: Order Comment: Speci men Type: BLOOD SPECIMEN Ordering Facility: [facility] Address: [address] [place], [place] [address] Performed By: #### 5 8410-2 #### [facility] CLIA [id number] [address] [place] [address] [place] Platelet mean volume (Bld) [Entitic vol] 10.7 fL Normal 9.0-12.7 [facility] Comment on above: Order Comment: Speci men Type: BLOOD SPECIMEN Ordering Facility: [facility] Address: [address] [place], [place] [address] Performed By: #### 5 8410-2 #### [facility] CLIA [id number] [address] [place] [address] [place] Platelets (Bld) [#/Vol] 259 10*3/uL Normal 150-400 [facility] Comment on above: Order Comment: Speci men Type: BLOOD SPECIMEN Ordering Facility: [facility] Address: [address] [place] [address] Performed By: #### 5 8410-2 #### [facility] CLIA [id number] [address] [place] [address] [place] RBC (Bld) [#/Vol] 4.98 10*6/uL Normal 3.90-5.20 [facility] Comment on above: Order Comment: Speci men Type: BLOOD SPECIMEN Ordering Facility: [facility] Address: [address] [place] [address] Performed By: #### 5 8410-2 #### [facility] CLIA [id number] [address] [place] [address] [place] WBC (Bld) [#/Vol] 9.25 10*3/uL Normal 3.70-11.00 [facility] Comment on above: Order Comment: Speci men Type: BLOOD SPECIMEN Ordering Facility: [facility] Address: [address] [place] [address] Performed By: #### 5 8410-2 #### [facility] CLIA [id number] [address] [place] [address] [facility] CNOVon 12-12-2021 CNOV Office Visit (AMARJIT ) LEXI GARCIA ([id number]) 1970 F Date Time Provider Department 12/12/21 [...] office visit, flat ground knees give out. [employer] 06/26/21. Feels safe at home. 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 Performed By: #### B MP #### [facility] [address] [place] [address] Sodium [Moles/Vol] 140 mmol/L Normal 135-144 [facility] Comment on above: Performed By: #### B MP #### [facility] [address] [place] [address] Urea nitrogen [Mass/Vol] 20 mg/dL Normal 6-20 [facility] Comment on above: Performed By: #### B MP #### [facility] [address] [place] [address] CBC With Platelet No Differe ntialon 06-18-2020 Erythrocyte distribution width (RBC) [Ratio] 14.2 % Normal 11.5-14.5 [facility] Comment on above: Performed By: #### C BCND #### [facility] [address] [place] [address] Hematocrit (Bld) [Volume fraction] 41.5 % Normal 37.0-47.0 [facility] Comment on above: Performed By: #### C BCND #### [facility] [address] [place] [address] Hemoglobin (Bld) [Mass/Vol] 14.3 g/dL Normal 12.0-16.0 [facility] Comment on above: Performed By: #### C BCND #### [facility] [address] [place] [address] MCH (RBC) [Entitic mass] 31.4 pg Critically high 27.0-31.3 [facility] Comment on above: Performed By: #### C BCND #### [facility] [address] [place] [address] MCHC (RBC) [Mass/Vol] 34.5 % Normal 33.0-37.0 [facility] Comment on above: Performed By: #### C BCND #### [facility] [address] [place] [address] MCV (RBC) [Entitic vol] 91.2 fL Normal 82.0-100.0 [facility] Comment on above: Performed By: #### C BCND #### [facility] [address] [place] [address] Platelets (Bld) [#/Vol] 241 10*3/uL Normal 130-400 [facility] Comment on above: Performed By: #### C BCND #### [facility] [address] [place] [address] RBC (Bld) [#/Vol] 4.55 10*6/uL Normal 4.20-5.40 [facility] Comment on above: Performed By: #### C BCND #### [facility] [address] [place] [address] WBC (Bld) [#/Vol] 9.7 10*3/uL Normal 4.8-10.8 [facility] Comment on above: Performed By: #### C BCND #### [facility] [address] [place] [address] COVID-19, NAAon 06-18-2020 Source [employer] swab Normal [facility] Comment on above: Performed By: #### I RCOV #### [facility] [address] [place] [address] Prothrombin Timeon 0 INR Coag (PPP) [Relative time] 1.0 {INR} Normal [facility] Comment on above: Performed By: #### P T ####[facility] [place] [phone] PT Coag (PPP) [Time] 13.1 s Normal 12.3-14.9 [facility] Comment on above: Performed By: #### P T ####[facility] [place] [phone] Type and Screen Capture 3 sc rn cellon 06-18-2020 Type and Screen Capture 3 scrn cell PATIENT: JOSHUA Doss LOC: [facility] GABI# : [id number] : 1970 SEX: F ORDERED BY: TEENA Lowe ORDERED : 06/18/2020 15:07 COLLECTED: 06/18/2020 15:36 ORDER : [id number] RECEIVED : 06/18/2020 15:36 Second, confirmatory specimen needed to satisfy [employer] policy. TEST NAME RESULT UNITS RANGES ABN FL ST ABORH Capture O POS F Antibody 3 Cell Scrn Captu NEG F Normal [facility] Comment on above: Performed By: #### T S3C #### [facility] [address] [place] [address] XR SPINE ENTIRE (2-3 VIEWS)o n 06-18-2020 [...] Ash Horta MD 06/19/20 Final result Normal [facility] FLUORO FOR SURGICAL PROCEDUR ESon 05-09-2020 [...] Maximiliano Rachel MD 05/09/20 Final result Normal [facility] COVID-19, NAAon 05-05-2020 COVID-19, BELLE Not Detected Normal Not Detect [facility] Comment on above: Result Comment: This nucleic acid amplification test was developed and its performance characteristics determined by [employer]. Nucleic acid amplification tests include PCR and [...] [facility] [address] [facility], [place] [id number] Regroover: Altagracia Quiñonez MD, Phone: [phone] Performed By: #### I RCOV ####[facility] [place] [phone] Basic Metabolic Panelon 10-3 Anion gap [Moles/Vol] 12 mmol/L Normal 9-15 [facility] Comment on above: Performed By: #### B MP #### [facility] [address] [place] [address] Calcium [Mass/Vol] 10.5 mg/dL Critically high 8.5-9.9 [facility] Comment on above: Performed By: #### B MP #### [facility] [address] [place] [address] Chloride [Moles/Vol] 98 mmol/L Normal 95-107 [facility] Comment on above: Performed By: #### B MP #### [facility] [address] [place] [address] CO2 [Moles/Vol] 27 mmol/L Normal 20-31 [facility] Comment on above: Performed By: #### B MP #### [facility] [address] [place] [address] Creatinine [Mass/Vol] 0.82 mg/dL Normal 0.50-0.90 [facility] Comment on above: Performed By: #### B MP #### [facility] [address] [place] [address] GFR/1.73 sq M predicted among blacks MDRD (S/P/Bld) [Vol rate/Area] mL/min/{1.73_m2} Normal >60 [facility] Comment on above: Result Comment: >60 mL/min/1.73m2 EGFR, calc. for ages 18 and older using the MDRD formula (not corrected for weight), is valid for stable renal function. Performed By: #### B MP #### [facility] [address] [place] [address] GFR/1.73 sq M.predicted MDRD (S/P/Bld) [Vol rate/Area] mL/min/{1.73_m2} Normal >60 [facility] Comment on above: Result Comment: >60 mL/min/1.73m2 EGFR, calc. for ages 18 and older using the MDRD formula (not corrected for weight), is valid for stable renal function. Performed By: #### B MP #### [facility] [address] [place] [address] Glucose [Mass/Vol] 84 mg/dL Normal 70-99 [facility] Comment on above: Performed By: #### B MP #### [facility] [address] [place] [address] Potassium [Moles/Vol] 4.6 mmol/L Normal 3.4-4.9 [facility] Comment on above: Performed By: #### B MP #### [facility] [address] [place] [address] Sodium [Moles/Vol] 137 mmol/L Normal 135-144 [facility] Comment on above: Performed By: #### B MP #### [facility] [address] [place] [address] Urea nitrogen [Mass/Vol] 31 mg/dL Critically high 6-20 [facility] Comment on above: Performed By: #### B MP #### [facility] [address] [place] [address] CBC With Platelet No Differe ntialon 05-03-2020 Erythrocyte distribution width (RBC) [Ratio] 14.3 % Normal 11.5-14.5 [facility] Comment on above: Performed By: #### C BCND #### [facility] [address] [place] [address] Hematocrit (Bld) [Volume fraction] 41.3 % Normal 37.0-47.0 [facility] Comment on above: Performed By: #### C BCND #### [facility] [address] [place] [address] Hemoglobin (Bld) [Mass/Vol] 13.6 g/dL Normal 12.0-16.0 [facility] Comment on above: Performed By: #### C BCND #### [facility] [address] [place] [address] MCH (RBC) [Entitic mass] 30.7 pg Normal 27.0-31.3 [facility] Comment on above: Performed By: #### C BCND #### [facility] [address] [place] [address] MCHC (RBC) [Mass/Vol] 33.0 % Normal 33.0-37.0 [facility] Comment on above: Performed By: #### C BCND #### [facility] [address] [place] [address] MCV (RBC) [Entitic vol] 92.9 fL Normal 82.0-100.0 [facility] Comment on above: Performed By: #### C BCND #### [facility] [address] [place] [address] Platelets (Bld) [#/Vol] 241 10*3/uL Normal 130-400 [facility] Comment on above: Performed By: #### C BCND #### [facility] [address] [place] [address] RBC (Bld) [#/Vol] 4.44 10*6/uL Normal 4.20-5.40 [facility] Comment on above: Performed By: #### C BCND #### [facility] [address] [place] [address] WBC (Bld) [#/Vol] 11.0 10*3/uL Critically high 4.8-10.8 [facility] Comment on above: Performed By: #### C BCND #### [facility] [address] [place] [address] COVID-19, NAAon 05-03-2020 Source Swab Anterior nares Normal [facility] Comment on above: Performed By: #### I RCOV ####[facility] [place] [phone] Partial Thromboplastin Timeo n 05-03-2020 aPTT Coag (Bld) [Time] 31.3 s Normal 24.4-36.8 [facility] Comment on above: Performed By: #### P TT #### [facility] [address] [place] [address] Prothrombin Timeon 0 INR Coag (PPP) [Relative time] 0.9 {INR} Normal [facility] Comment on above: Performed By: #### P T #### [facility] [address] [place] [address] PT Coag (PPP) [Time] 11.9 s Low 12.3-14.9 [facility] Comment on above: Performed By: #### P T #### [facility] [address] [place] [address] Type and Screen Capture 3 sc rn cellon 05-03-2020 Type and Screen Capture 3 scrn cell PATIENT: JOSHUA Doss LOC: [facility] BILL# : [id number] : 1970 SEX: F ORDERED BY: STEPHANIE Harrison ORDERED : 05/03/2020 14:14 COLLECTED: 05/03/2020 14:14 ORDER : [id number] RECEIVED : 05/03/2020 19:43 TEST NAME RESULT UNITS RANGES ABN FL ST ABORH Capture O POS F Antibody 3 Cell Scrn Captu NEG F Normal [facility] Comment on above: Performed By: #### T S3C #### [facility] [address] [place] [address] Established Visit (Orthopaed ic Surgery)on 04-26-2020 Established [...] biceps. No pain with resisted elbow flexion. Case Picker strength 5/5 Elbow flexion 5/5. Shoulder abduction [...] PA-C Department of Orthopaedic Surgery [facility] Dictation performed with the use of [...] scans evaluated by the musculoskeletal radiologist at [facility] I will call the patient back with [...] her light touch sensation is grossly intact. Case Picker strength is 5/5 elbow flexion 5/5 shoulder [...] Time Vital Sign Value Performing Clinician Facility 01-03-2025 15:54-0400 Body height 162.6 cm John Gauthier DPM Work Phone: [facility] 01-03-2025 15:54-0400 Body mass index (BMI) [Ratio] 34.16 kg/m2 John Gauthier DPM Work Phone: [facility] 01-03-2025 15:54-0400 Body weight 90.27 kg John Gauthier DPM Work Phone: [facility] 11-23-2024 10:50-0400 Body height 162.56 cm [facility] 11-23-2024 10:50-0400 Body mass index (BMI) [Ratio] 33.7 kg/m2 [facility] 11-23-2024 10:50-0400 Body weight 89.35 kg [facility] 11-23-2024 10:50-0400 Diastolic blood pressure 74 mm[Hg] [facility] 11-23-2024 10:50-0400 Heart rate 80 /min [facility] 11-23-2024 10:50-0400 Systolic blood pressure 108 mm[Hg] [facility] 11-07-2024 09:53-0400 Body height 162.6 cm Hazel Velásquez MD Work Phone: [facility] 11-07-2024 09:53-0400 Body mass index (BMI) [Ratio] 34.16 kg/m2 Hazel Velásquez MD Work Phone: [facility] 11-07-2024 09:53-0400 Body weight 90.27 kg Hazel Velásquez MD Work Phone: [facility] 11-07-2024 09:53-0400 Diastolic blood pressure 64 mm[Hg] Hazel Velásquez MD Work Phone: [facility] 11-07-2024 09:53-0400 Heart rate 91 /min Hazel Velásquez MD Work Phone: [facility] 11-07-2024 09:53-0400 SaO2% (BldA) [Mass fraction] 97 % Hazel Velásquez MD Work Phone: [facility] 11-07-2024 09:53-0400 Systolic blood pressure 118 mm[Hg] Hazel Velásquez MD Work Phone: [facility] 09-04-2024 14:03-0500 Body height 162.56 cm [facility] 09-04-2024 14:03-0500 Body mass index (BMI) [Ratio] 34.3 kg/m2 [facility] 09-04-2024 14:03-0500 Body weight 90.8 kg [facility] 08-21-2024 15:18-0500 Body height 162.6 cm John Gauthier DPM Work Phone: [facility] 08-21-2024 15:18-0500 Body mass index (BMI) [Ratio] 36.56 kg/m2 John Gauthier DPM Work Phone: [facility] 08-21-2024 15:18-0500 Body weight 96.62 kg John Gauthier DPM Work Phone: [facility] 08-08-2024 09:27-0500 Body height 162.6 cm Hazel Velásquez MD Work Phone: [facility] 08-08-2024 09:27-0500 Body mass index (BMI) [Ratio] 36.63 kg/m2 Hazel Velásquez MD Work Phone: [facility] 08-08-2024 09:27-0500 Body weight 96.8 kg Hazel Veálsquez MD Work Phone: [facility] 08-08-2024 09:27-0500 Diastolic blood pressure 68 mm[Hg] Hazel Velásquez MD Work Phone: [facility] 08-08-2024 09:27-0500 Heart rate 93 /min Hazel Velásquez MD Work Phone: [facility] 08-08-2024 09:27-0500 SaO2% (BldA) [Mass fraction] 95 % Hazel Velásquez MD Work Phone: [facility] 08-08-2024 09:27-0500 Systolic blood pressure 112 mm[Hg] Hazel Velásquez MD Work Phone: [facility] 07-25-2024 10:00-0500 Body height 162.6 cm John Gauthier DPM Work Phone: [facility] 07-25-2024 10:00-0500 Body mass index (BMI) [Ratio] 37.25 kg/m2 John Gauthier DPM Work Phone: [facility] 07-25-2024 10:00-0500 Body weight 98.43 kg John Gauthier DPM Work Phone: [facility] 07-06-2024 11:23-0500 Body height 162.6 cm Hazel Velásquez MD Work Phone: [facility] 07-06-2024 11:23-0500 Body mass index (BMI) [Ratio] 37.28 kg/m2 Hazel Velásquez MD Work Phone: [facility] 07-06-2024 11:23-0500 Body weight 98.52 kg Hazel Velásuqez MD Work Phone: [facility] 07-06-2024 11:23-0500 Diastolic blood pressure 82 mm[Hg] Hazel Velásquez MD Work Phone: [facility] 07-06-2024 11:23-0500 Heart rate 82 /min Hazel Velásquez MD Work Phone: [facility] 07-06-2024 11:23-0500 SaO2% (BldA) [Mass fraction] 96 % Hazel Velásquez MD Work Phone: [facility] 07-06-2024 11:23-0500 Systolic blood pressure 126 mm[Hg] Hazel Velásquez MD Work Phone: [facility] 06-09-2024 11:15-0500 Diastolic blood pressure 93 mm[Hg] Maximiliano You MD Work Phone: [facility] [employer] 06-09-2024 11:15-0500 Heart rate 90 /min Maximiliano You MD Work Phone: [facility] [employer] 06-09-2024 11:15-0500 Respiratory rate 20 /min Maximiliano You MD Work Phone: [facility] [employer] 06-09-2024 11:15-0500 SaO2% (BldA) [Mass fraction] 95 % Maximiliano You MD Work Phone: [facility] [employer] 06-09-2024 11:15-0500 Systolic blood pressure 151 mm[Hg] Maximiliano You MD Work Phone: [facility] [employer] 06-09-2024 10:45-0500 Body temperature 96.91 [degF] Maximiliano You MD [facility] 06-09-2024 09:48-0500 Body height 162.6 cm Maximiliano You MD Work [facility]: [facility] 06-09-2024 09:48-0500 Body mass index (BMI) [Ratio] 37.25 kg/m2 Maximiliano You MD Work Phone: [facility] 06-09-2024 09:48-0500 Body weight 98.43 kg Maximiliano You MD Work Phone: [facility] 12-12-2021 10:43-0400 Body weight 97.52 [...] blood pressure 80 mm[Hg] Emmett Brunner Other [employer] Other 10-14-2021 10:30-0400 SaO2% (BldA) [Mass fraction] 98 % Emmett Brunner Other [employer] Other 10-14-2021 10:30-0400 Systolic blood pressure 130 mm[Hg] Emmett Brunner Other [employer] Other 07-01-2021 15:30-0500 Body weight 94.62 kg Letty Olson Other [employer] Other 07-01-2021 15:30-0500 Diastolic blood pressure 78 mm[Hg] Letty Olson Other [employer] Other 07-01-2021 15:30-0500 Respiratory rate 18 /min Letty Wesley Other [employer] Other 07-01-2021 15:30-0500 SaO2% (BldA) [Mass fraction] 98 % Letty Wesley Other [employer] Other 07-01-2021 15:30-0500 Systolic blood pressure 118 mm[Hg] Letty Wesley Other [employer] Other 06-18-2021 15:45-0500 Diastolic blood pressure 90 mm[Hg] Emmett Brunner Other [employer] Other 06-18-2021 15:45-0500 SaO2% (BldA) [Mass fraction] 97 % Emmettarmani Brunner Other [employer] Other 06-18-2021 15:45-0500 Systolic blood pressure 122 mm[Hg] Emmett Kannan Other [employer] Other 05-15-2021 17:30-0500 Body weight 92.53 kg Emmett Kannan Other [employer] Other 05-15-2021 17:30-0500 Diastolic blood pressure 80 mm[Hg] Emmett Kannan Other [employer] Other 05-15-2021 17:30-0500 Systolic blood pressure 130 mm[Hg] Emmett Kannan Other [employer] Other 04-02-2021 14:30-0400 Body weight 92.63 kg Emmett Kannan Other [employer] Other 09-29-2021 14:30-0400 Diastolic blood pressure 88 mm[Hg] Emmett Brunner Other [employer] Other 04-02-2021 14:30-0400 SaO2% (BldA) [Mass fraction] 98 % Emmett Brunner Other [employer] Other 04-02-2021 14:30-0400 Systolic blood pressure 140 mm[Hg] Emmett Brunner Other [employer] Other Encounters Encounter Date Encounter Type Care Provider Facility Start: 02-13-2025 End: 02-13-2025 ambulatory HAZEL VELÁSQUEZ Not Available Start: 02-13-2025 End: 02-13-2025 Bamboo flowsheet Hazel Velásquez MD Work Phone: [facility] Start: 02-13-2025 End: 02-13-2025 Bamboo flowsheet Hazel Velásquez MD Work Phone: [facility] Start: 01-03-2025 End: 01-03-2025 Office outpatient visit 15 minutes John Gauthier DPM Work Phone: [facility] Comment on above: Onychomycosis (Prima ry Dx); Onychodystrophy; Corns and callosities; Diabetic polyneuropathy associated with type 2 diabetes mellitus (HCC); Ingrown toenail; Pain in both feet Start: 01-03-2025 End: 01-03-2025 ambulatory JOHN GAUTHIER Not Available Start: 01-03-2025 End: 01-03-2025 Bamboo flowsheet John Gauthier DPM Work Phone: [facility] Start: 01-03-2025 End: 01-03-2025 Bamboo flowsheet John Gauthier DPM Work Phone: [facility] Start: 12-04-2024 End: 12-04-2024 Follow-up encounter Hazel Velásquez MD Work Phone: [facility] Start: 12-01-2024 End: 12-01-2024 Follow-up encounter Hazel Velásquez MD Work Phone: [facility] Start: 12-01-2024 End: 12-01-2024 ambulatory HAZEL VELÁSQUEZ Not Available Start: 11-23-2024 End: 11-23-2024 ambulatory [facility] Work Phone: Start: 11-23-2024 End: 11-23-2024 Patient encounter procedure [facility] Work Phone: Start: 11-18-2024 End: 11-18-2024 Refill Hazel Velásquez MD Work Phone: [facility] Comment on above: Type 2 diabetes anne itus without complication, without long- term current use of insulin Start: 11-08-2024 End: 11-08-2024 ambulatory [facility] Start: 11-07-2024 End: 11-07-2024 Bamboo flowsheet Hazel Velásquez MD Work Phone: [facility] Start: 11-07-2024 End: 11-07-2024 Bamboo flowsheet Hazel Velásquez MD Work Phone: [facility] Start: 11-07-2024 End: 11-07-2024 Patient encounter procedure Hazel Velásuqez MD Work Phone: [facility] Start: 11-07-2024 [...] 11-07-2024 ambulatory HAZEL VELÁSQUEZ Not Available Start: 11-06-2024 End: 11-06-2024 ambulatory Rosibel Cotton MD Facility:[facility] Start: 10-17-2024 End: 10-17-2024 ambulatory [facility] Start: 09-27-2024 End: 09-27-2024 Bamboo flowsheet Lukas Alt RN [facility] Start: 09-27-2024 End: 09-27-2024 Bamboo flowsheet Lukas Alt RN [facility] Start: 09-27-2024 End: 09-27-2024 ambulatory LUKAS ALT Not Available Start: 09-11-2024 End: 09-11-2024 Telephone encounter Hazel Velásquez MD Work Phone: [facility] Start: 09-04-2024 End: 09-04-2024 ambulatory [facility] Work Phone: Start: 09-04-2024 End: 09-04-2024 Patient encounter procedure [facility] Work Phone: Start: 08-24-2024 End: 08-24-2024 Bamboo flowsheet Lukas Alt RN [facility] Start: 08-24-2024 End: 08-24-2024 Bamboo flowsheet Lukas Alt RN [facility] Start: 08-24-2024 End: 08-24-2024 ambulatory LUKAS ALT Not Available Start: 08-21-2024 End: 08-21-2024 ambulatory JOHN GAUTHIER Not Available Start: 08-21-2024 End: 08-21-2024 Office outpatient visit 15 minutes oJhn Gauthier DPM Work Phone: [facility] Comment on above: Corns and callositie s (Primary Dx); Diabetic polyneuropathy associated with type 2 diabetes mellitus (CMS/[facility]); Left foot pain Start: 08-08-2024 End: 08-08-2024 Bamboo flowsheet Hazel Velásquez MD Work Phone: [facility] Start: 08-08-2024 End: 08-08-2024 Bamboo flowsheet Hazel Velásquez MD Work Phone: [facility] Start: 08-08-2024 End: 08-08-2024 Office outpatient visit 25 minutes Hazel Velásquez MD Work Phone: [facility] Comment on above: Poorly controlled ty pe 2 diabetes mellitus with neuropathy (CMS/HCC) (Primary Dx); Morbid (severe) obesity due to excess calories (CMS/HCC); Body mass index (BMI) 38.0-38.9, adult; Acute non-recurrent frontal sinusitis; Herpes infection; Benign essential HTN (CMS/HCC); 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); Gastroesophageal reflux disease without esophagitis; Cigarette smoker; Mixed hyperlipidemia (CMS/HCC) Start: 08-08-2024 End: 08-08-2024 ambulatory HAZEL VELÁSQUEZ Not Available Start: 07-26-2024 End: 07-26-2024 Bamboo flowsheet Luaks Luz RN [facility] Start: 07-26-2024 End: 07-26-2024 Bamboo flowsheet Lukas Luz RN [facility] Start: 07-26-2024 End: 07-26-2024 ambulatory LUKAS LUZ Not Available Start: 07-25-2024 End: 07-25-2024 Bamboo flowsheet John Gauthier DPM Work Phone: [facility] Start: 07-25-2024 End: 07-25-2024 Bamboo flowsheet John Gauthier DPM Work Phone: [facility] Start: 07-25-2024 End: 07-25-2024 Office outpatient visit 15 minutes John Gauthier DPM Work Phone: [facility] Comment on above: Diabetic polyneuropa thy associated with type 2 diabetes mellitus (CMS/HCC) (Primary Dx); Onychomycosis; Onychodystrophy; Pain in both feet Start: 07-25-2024 End: 07-25-2024 ambulatory JOHN GAUTHIER Not Available Start: 07-21-2024 End: 07-25-2024 Telephone encounter Lukas Luz RN [facility] Comment on above: dsme Start: 07-06-2024 End: 07-06-2024 Bamboo flowsheet Hazel Velásquez MD Work Phone: [facility] Start: 07-06-2024 End: 07-06-2024 Bamboo flowsheet Hazel Velásquez MD Work Phone: [facility] Start: 07-06-2024 End: 07-06-2024 Office outpatient visit 25 minutes Hazel Velásquez MD Work Phone: [facility] Comment on above: Benign essential HTN (CMS/HCC) (Primary Dx); 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); Factor 5 Leiden mutation, heterozygous (CMS/HCC); Bipolar 1 disorder (CMS/HCC); Cigarette smoker; Mixed hyperlipidemia (CMS/HCC); Type 2 diabetes mellitus without complication, without long-term current use of insulin (CMS/HCC); Encounter for screening mammogram for malignant neoplasm of breast Start: 07-06-2024 End: 07-06-2024 ambulatory HAZEL VELÁSQUEZ Not Available Start: 07-03-2024 End: 07-03-2024 ambulatory Rosibel Cotton MD Facility:[facility] Start: 06-09-2024 End: 06-09-2024 ambulatory [facility]ILIANO [facility] Start: 06-09-2024 End: 06-09-2024 Subsequent hospital visit by physician Maximiliano You MD Work Phone: [facility] Comment on above: GERD (gastroesophage al reflux disease) Start: 06-05-2024 End: 06-05-2024 ambulatory Rosibel Cotton MD Facility: [facility] Start: 05-04-2024 End: 05-04-2024 ambulatory DALE HUTCHISON [facility] Start: 04-10-2024 End: 04-10-2024 ambulatory Rosibel Cotton MD Facility:[facility] Start: 02-07-2024 End: 02-07-2024 ambulatory Rosibel Cotton MD Facility:[facility] Start: 02-03-2024 End: 02-03-2024 ambulatory NANCY LUDWIG [facility] Start: 01-25-2024 End: 01-25-2024 ambulatory SOLITARIO GARCÍA [facility] Start: 01-24-2024 End: 01-24-2024 ambulatory Rosibel Cotton MD Facility:[facility] Start: 01-12-2024 End: 01-12-2024 ambulatory NICOLE Katrina [facility] Start: 01-12-2024 Encounter for other preprocedural examination [facility] Start: 09-13-2023 End: 09-13-2023 Subsequent hospital visit by physician [facility] Comment on above: Flatulence, eructati on and gas pain Start: 09-13-2023 End: 09-13-2023 ambulatory NICOLE Katrina [facility] Start: 09-13-2023 Encounter for other preprocedural examination [facility] Start: 04-07-2023 ambulatory Gayle Washington MD Work Phone: Rheumatology Comment on above: Fax info Start: 10-16-2022 Encounter for preprocedural cardiovascular examination DR ULISES TIM [facility] Start: 10-16-2022 Encounter for preprocedural laboratory examination DR ULISES TIM [facility] Start: 10-13-2022 End: 10-13-[address] [...] Start: 04-09-2022 End: 04-10-[address] DOCTOR DNETON Facility:[facility] Start: 01-27-2022 End: 01-27-[address] [...] Start: 12-12-2021 End: 12-13-2021 ambulatory KIMBERLEY LEORA [employer] Other Start: 12-12-2021 End: 12-12-2021 Patient encounter [...] . Facility: Start: 10-29-2021 Chart Update Cristobal F Lulu miller Work Phone: [id number] Work Phone: Start: 10-14-2021 End: 10-14-2021 ambulatory Emmett Brunner Other [employer] Other Start: 10-14-2021 Patient encounter procedure Emmett Brunner [facility] Start: 09-23-2021 End: 09-23-2021 ambulatory Emmett Brunner Other [employer] Other Start: 09-23-2021 Telephone encounter Emmett Brunner [facility] Start: 07-01-2021 End: 07-01-2021 ambulatory Letty Olson Other [employer] Other Start: 07-01-2021 Office outpatient vi sit 25 minutes Letty Wesley [facility] Start: 06-26-2021 (Procedure) Short Emmett Brunner [facility] Start: 06-26-2021 End: 06-26-2021 ambulatory Emmett Brunner Other [employer] Other Start: 06-18-2021 End: 06-18-2021 ambulatory Emmett Brunner Other [employer] Other Start: 06-18-2021 Office outpatient vi sit 25 minutes Emmett Brunner [facility] Start: 06-18-2021 Telephone encounter Emmett Brunner [facility] Start: 06-04-2021 End: 06-04-2021 Subsequent hospital visit by physician Christina [facility] Comment on above: Chronic hip pain, bi lateral [M25.551, M25.552, G89.29] Start: 05-21-2021 (Procedure) Short Emmett Brunner [facility] Start: 05-21-2021 End: 05-21-2021 ambulatory Emmett Brunner Other [employer] Other Start: 05-15-2021 End: 05-15-2021 ambulatory Emmett Brunner Other [employer] Other Start: 05-15-2021 Office outpatient vi sit 25 minutes Emmettarmani Brunner [facility] Start: 04-30-2021 (Procedure) Short Emmett Brunner [facility] Start: 04-16-2021 (Procedure) Short Emmett Brunner [facility] Start: 04-02-2021 Office outpatient vi sit 25 minutes Emmett Kannan [facility] Start: 02-21-2021 Office outpatient vi sit 15 minutes Cristobal Tomas Work Phone: [id number] Work Phone: Start: 06-25-2020 End: 06-27-2020 Evaluation and management of inpatient [facility] Start: 06-25-2020 End: 06-28-2020 Patient encounter procedure [facility] Start: 06-18-2020 End: 06-23-2020 Patient encounter procedure [facility] Start: 05-09-2020 End: 05-09-2020 Patient encounter procedure [facility] Procedures Date Procedure Procedure Detail Performing Clinician Start: 12-01-2024 Mammography Hazel Velásquez MD Work Phone: Start: 11-08-2024 Hemoglobin glycosylated a1c Hazel hernandez MD Work Phone: Start: 06-09-2024 Esophagogastroduodenoscopy Maximiliano salinas MD Work Phone: Start: 09-13-2023 Assay of gammaglobulin iga igd igg igm each Nicole Telles [employer] Work Phone: Start: 02-11-2023 H/O: hysterectomy S/P [...] 03-16-2026 Screening for malignant neoplasm of colon [facility] Start: 12-01-2025 Screening for malignant neoplasm of breast Mammogram [facility] Start: 11-07-2025 Medicare Annual Wellness (AWV) Medicare Annual Wellness (AWV ) [facility] Start: 08-08-2025 Urine screening for protein Diabetes: Urine Protein Screening [facility] Start: 04-06-2025 End: 04-06-2025 Patient encounter procedure [facility] Start: 03-05-2025 Influenza vaccination [facility] Start: 02-08-2025 Hemoglobin A1c measurement Diabetes: Hemoglobin A1C [facility] Start: 02-08-2025 End: 02-08-2025 Patient encounter procedure 02/08/2025 10:00 AM EDT Of fice Visit [facility] [address] [place] [id number] Hazel Velásquez MD [address] [place] [address] [facility] Start: 01-03-2025 End: 01-03-2025 Patient encounter procedure 01/03/2025 4:00 PM EDT Off ice Visit [facility] [address] [place] [phone] John Gauthier DPM [address] [place] [address] Arrived [facility] Comment on above: Arrived Start: 12-12-2024 DIABETES SCREEN DIABETES SCREEN [facility] Start: 12-12-2024 Diabetes Screening Diabetes Screening [facility] Start: 12-01-2024 End: 12-01-2024 Professional / ancillary services management [facility] Start: 11-07-2024 End: 11-07-2025 CT Chest for screening WO contrast CT lung screening low dose Imaging Routine Nicotine abuse Nicotine dependence, cigarettes, in remission Expected: 11/07/2024, Expires: 11/07/2025 [facility] Comment on above: Expected: 11/07/2024, Expires: Start: 11-07-2024 End: 11-07-2025 US Soft Tissue Palpable Mass US Soft Tissue Palpable M ass Imaging Routine Cyst, dermoid, arm, right Expected: 11/07/2024, Expires: 11/07/2025 [facility] Work Phone: Comment on above: Expected: 11/07/2024, Expires: Start: 11-07-2024 End: 11-07-2024 Patient encounter procedure [facility] Comment on above: Arrived Start: 11-01-2024 Hemoglobin A1c measurement Diabetes: Hemoglobin A1C [facility] Start: 10-24-2024 End: 10-24-2024 Patient encounter procedure 10/24/2024 10:15 AM EDT Procedure Visit [facility] [address] [place] [phone] John Gauthier, DPM [address] [facility] [place] [address] [facility] Start: 09-27-2024 End: 09-27-2024 Clinical Support 09/27/2024 10:30 AM EDT Clinical Support [facility] [address] [place] [phone] Lukas Luz RN [facility] Comment on above: Arrived Start: 09-26-2024 End: 09-26-2024 Clinical Support 09/26/2024 11:30 AM EDT Clinical Support [facility] [address] [place] [phone] Lukas Luz RN [facility] Start: 08-24-2024 End: 08-24-2024 Clinical Support [facility] Comment on above: Arrived Start: 08-17-2024 Hemoglobin A1c measurement Diabetes: Hemoglobin A1C [facility] Start: 08-08-2024 End: 08-08-2025 Microalbumin/Creatinine panel in random Urine Microalbumin / creatinine, urine ratio Lab Routine Poorly controlled type 2 diabetes mellitus with neuropathy ([facility]/HCC) Expected: 08/08/2024 (Approximate), Expires: 08/08/2025 [facility] Work Phone: Comment on above: Expected: 08/08/2024 (Approximate), Expi res: 08/08/2025 Start: 08-08-2024 End: 08-08-2024 Patient encounter procedure [facility] Comment on above: Arrived Start: 07-26-2024 End: 07-26-2024 Clinical Support [facility] Comment on above: Type 2 diabetes mellitus without complic ation, without long-term current use of insulin ([facility]) (Primary Dx); Bipolar 1 disorder ([facility]) Start: 07-25-2024 End: 07-25-2024 Patient encounter procedure [facility] Comment on above: Arrived Start: 07-06-2024 End: 09-03-2025 DBT Breast - bilateral screening Bilateral screening mammogram with tomosynthesis Imaging Routine Encounter for screening mammogram for malignant neoplasm of breast Expected: 07/06/2024, Expires: 09/03/2025 [facility] Work Phone: Comment on above: Expected: 07/06/2024, Expires: Start: 07-06-2024 End: 07-06-2024 Patient encounter procedure 07/06/2024 11:30 AM EST Of fice Visit [facility] [address] [place] [phone] Hazel Velásquez MD [address] [place] [phone] Arrived [facility] Comment on above: Arrived Start: 07-01-2024 Screening for malignant neoplasm of breast Breast cancer screen [facility] Start: 06-09-2024 End: 06-09-2024 Esophagogastroduodenoscopy transoral diagnostic ESOPHAGOGASTRODUODENOSCOPY GERD (gastroesophageal reflux disease) 06/09/2024 10:28 AM EST [facility] Start: 03-05-2024 COVID-19 Vaccine () COVID-19 Vaccine () [facility] Start: 03-05-2024 Influenza vaccination Influenza Vaccine (#1) [facility] Start: 02-12-2024 Medicare Annual Wellness (AWV) Medicare Annual Wellness (AWV ) [facility] Start: 02-03-2024 Influenza vaccination Flu vaccine (#1) [facility] Start: 02-03-2024 End: 02-03-2024 Admission to same day surgery center 02/03/2024 8:45 AM EDT - 02/03/2024 9:05 AM EDT Surgery [facility] [address] [place] [address] Nancy Ludwig MD [address] [place] [address] ESOPHAGOGASTRODUODENOSCOPY [facility] Comment on above: ESOPHAGOGASTRODUODENOSCOPY Start: 02-03-2024 End: 02-03-2024 Esophagogastroduodenoscopy transoral diagnostic ESOPHAGOGASTRODUODENOSCOPY Chronic GERD 02/03/2024 8:45 AM EDT [facility] Start: 02-03-2024 Subsequent hospital visit by physician 02/03/2024 8:45 AM EDT Hospital Encounter [facility] [address] [place], [place] [phone] Nancy Ludwig MD [address] [place] [id number] [facility] Start: 07-05-2023 Annual Wellness Visit (Medicare Advantage) Annual Wellness Visit (Medicare Advantage) [facility] Start: 07-01-2023 Screening for malignant neoplasm of breast Mammogram [facility] Start: 06-09-2023 Lipid 1996 panel - Serum or Plasma Lipid Screening [facility] Start: 06-09-2023 LIPID SCREEN LIPID SCREEN [facility] Start: 03-05-2023 COVID-19 Vaccine ( season) COVID-19 Vaccine ( season) [facility] Start: 03-05-2023 Influenza vaccination [facility] Start: 02-02-2023 Influenza vaccination Flu vaccine (#1) [facility] Start: 07-05-2022 DEPRESSION ASSESSMENT DEPRESSION ASSESSMENT [facility] Start: 03-19-2022 End: 12-17-2022 25-hydroxyvitamin D3 [Mass/volume] in Serum or Plasma VITAMIN D 25 HYDROXY Lab Routine Vitamin D deficiency Expected: 03/19/2022 (Approximate), Expires: 12/17/2022 Work Phone: Comment on above: Expected: 03/19/2022 [...] of 2) Shingles vaccine (1 of 2) [facility] [employer] Start: 2018 SHINGRIX VACCINE (1 of 2) SHINGRIX VACCINE (1 of 2) [facility] Start: 2013 COLOGUARD (FIT-DNA) COLOGUARD (FIT-DNA) [facility] Start: 2013 Colonoscopy COLONOSCOPY [facility] Start: 2013 COLORECTAL CANCER SCREENING COLORECTAL CANCER SCREENING [facility] Start: [address] COLONOGRAPHY [facility] Start: 2013 FECAL OCCULT BLOOD FECAL OCCULT BLOOD [facility] Start: 2013 Screening for malignant neoplasm of colon [facility] Start: 2013 SIGMOIDOSCOPY SIGMOIDOSCOPY [facility] Start: 2003 Diabetes screen Diabetes screen [facility] Start: 1998 HPV TESTING HPV TESTING [facility] Start: 1989 PAP TESTING PAP TESTING [facility] Start: 1987 DTaP/Tdap/Td vaccine (1 - Tdap) DTaP/Tdap/Td vaccine (1 - Tdap) [facility] Start: 1987 Hepatitis B vaccine (1 of 3 - + 3-dose series) Hepatitis B vaccine (1 of 3 - + 3-dose series) [facility] Start: 1987 Urine microalbumin profile [facility] Start: 1987 Urine screening for protein Diabetes: Urine Protein Screening [facility] Start: 1986 Hepatitis C screening Hepatitis C screen [facility] Start: 1986 HIV SCREENING HIV SCREENING [facility] Start: 1983 HIV screening HIV screen [facility] Start: 1980 Adult depression screening assessment DEPRESSION SCREENING [facility] Start: 1980 Depression Screen Depression Screen [facility] Start: 1978 Glaucoma screening Diabetes: Retinopathy Screening [facility] Start: 1978 Lipid panel Lipids [facility] Start: 1974 PNEUMOCOCCAL (1 - PCV) PNEUMOCOCCAL (1 - PCV) [facility] Start: 1974 Pneumococcal 0-64 years Vaccine (1 - PCV) Pneumococcal 0-64 years Vaccine (1 - PCV) [facility] Start: 1974 Pneumococcal 0-64 years Vaccine (1 of 2 - PCV) Pneumococcal 0-64 years Vaccine (1 of 2 - PCV) [facility] Start: 1974 Pneumococcal vaccination Pneumococcal Vaccine (1 - PCV) [facility] Start: 1968 HEPATITIS B (1 of 3 - 3-dose series) HEPATITIS B (1 of 3 - 3-dose series) [facility] Start: 1968 Hepatitis B Vaccine (1 of 3 - 3-dose series) Hepatitis B Vaccine (1 of 3 - 3-dose series) [facility] Start: 1968 Screening for malignant neoplasm of colon [facility] Celiac Disease Panel Celiac Dise ase Panel Lab Routine Flatulence, eructation and gas pain 09/13/2023 4:20 PM EDT [facility] End: 09-13-2023 H. pylori antigen [employer] Comment on above: Once for 1 Occurrences starting 09/13/19 until 09/13/2023 End: 09-13-2023 H. Pylori Antigen, Stool H. Pylori Antigen, Stool Lab Routine Flatulence, eructation and gas pain 1 Occurrences starting 09/13/2023 until 09/13/2023 [employer] Work Phone: Comment on above: 1 Occurrences starting 09/13/2023 until 09/13/2023 End: 06-09-2024 INITIATE PACU OXYGEN THERAPY PROTOCOL Initiate PACU Oxygen Therapy Protocol Respiratory Care Routine Continuous until discontinued starting 06/09/2024 [employer] Comment on above: Continuous until discontinued starting 1 08/10/2023 Pathology study Surgical Patholo gy Lab Routine GERD (gastroesophageal reflux disease) Release Upon Ordering for 1 Occurrences starting 06/09/2024 [employer] Comment on above: Release Upon Ordering for 1 Occurrences starting 06/09/2024 Immunizations Immunization Date Immunization Notes Care Provider [facility] 04-06-2019 influenza, injectabl e, quadrivalent, preservative free Cristobal Tomas Work Phone: [id number] Work Phone: 04-06-2019 influenza virus vaccine, unspecified formulation Gayle Washington MD Work Phone: [facility] 05-15-2016 seasonal influenza, intradermal, preservative free Cristobal Tomas Work Phone: [employer] Payers Date Payer Category Payer Medicare [id number] 2024 Medicare (Managed Care) [facility] [place] [facility] [id number] 2024 Unknown [id number] 2024 Medicare [id number] [id number] 2021 Unknown 2021 Unknown CLAYTON ARNOLD HI X [id number] 2021-Present [phone] [address] [address] [place] [address] O [id number] .[id number] 2020 Private Health Insurance [id number]. 3 .[id number] 2018 Unknown [id number] 2.16.840.1.708906.19 2017 Unknown [id number] 1968 Unknown [id number] 2.16.840.1.886805.3.579.2.182 1968 Unknown [id number] 2.16.840.1.923306.3.579.2.182 1968 Unknown [id number] 2.16.840.1.506713.3.579.2.182 1968 Unknown [id number] 2.16.840.1.496393.3.579.2.182 1968 Unknown [id number] 2.16.840.1.019494.3.579.2.182 1968 Unknown [id number] 2.16.840.1.185955.3.579.2.593 1968 Unknown [id number] 2.16.840.1.632392.3.579.2.593 1968 Unknown [id number] 2.16.840.1.555015.3.579.2.593 1968 Unknown [id number] 2.16.840.1.702911.3.579.2.593 1968 Unknown [id number] 2.16.840.1.467586.3.579.2.593 1968 Unknown [id number] 2.16.840.1.794003.3.579.2.593 1968 Unknown [id number] 2.16.840.1.398556.3.579.2.593 1968 Unknown [id number] 2.16.840.1.674930.3.579.2.593 1968 Unknown [id number] 2.16.840.1.983934.3.579.2.593 1968 Unknown [id number] 2.16.840.1.325341.3.579.2.593 1968 Unknown [id number] 2.16.840.1.383887.3.579.2.593 1968 Unknown [id number] 2.16.840.1.692902.3.579.2.173 1968 Unknown [id number] 2.16.840.1.090137.3.579.2.173 1968 Unknown [id number] 2.16.840.1.228278.3.579.2.173 1968 Unknown [id number] 2.16.840.1.047033.3.579.2.173 1968 Unknown [id number] 2.16.840.1.228079.3.579.2.173 1968 Unknown [id number] 2.16.840.1.598420.3.579.2.196 1968 Unknown [id number] 2.16.840.1.805377.3.579.2.196 1968 Unknown [id number] 2.16.840.1.914718.3.579.2.196 1968 Unknown [id number] 2.16.840.1.649624.3.579.2.196 1968 Unknown [id number] 2.16.840.1.374817.3.579.2.196 1968 Unknown [id number] 2.16.840.1.144252.3.579.2.196 1968 Unknown [id number] 2.16.840.1.337631.3.579.2.125 9 1968 Unknown [id number] 2.16.840.1.636551.3.579.2.125 9 1968 Unknown [id number] 2.16.840.1.316366.3.579.2.125 9 1968 Unknown [id number] 2.16.840.1.291490.3.579.2.125 9 1968 Unknown [id number] 2.16.840.1.469420.3.579.2.125 9 1968 Unknown [id number] 2.16.840.1.745224.3.579.2.125 9 1968 Unknown [id number] 2.16.840.1.794087.3.579.2.125 9 1968 Unknown [id number] 2.16.840.1.562280.3.579.2.125 9 1968 Unknown [id number] 2.16.840.1.067809.3.579.2.125 9 1968 Unknown [id number] 2.16.840.1.547037.3.579.2.125 9 1968 Unknown [id number] 2.16.840.1.849712.3.579.2.125 9 1968 Unknown [id number] 2.16.840.1.391820.3.579.2.125 9 1968 Unknown [id number] 2.16.840.1.742485.3.579.2.125 9 Unknown Regular Auto/Medical [id number] Unknown Regular Auto/Liability RM294 5 [id number] Social History Date Type Detail Facility Start: 07-05-1984 End: 07-06-2024 Tobacco smoking status NHIS Smokes tobacco daily [facility] Start: 07-05-1984 History of tobacco use Cigarette Smoker [facility] Start: 06-04-2021 End: 11-07-2024 Cigarettes smoked current (pack per day) - Reported 1 [facility] Start: 06-04-2021 End: 09-08-2023 Tobacco use and exposure Smokeless tobacco non-user [facility] Start: 12-12-2021 End: 06-09-2024 Alcohol intake Current drinker of alcohol (finding) [facility] Start: 06-04-2021 History SDOH Alcohol Comment rarely. [facility] Start: 1970 Sex Assigned At Not on file [facility] Start: 11-29-2021 End: 12-09-2021 Exposure to SARS-CoV-2 (event) Unable to assess [facility] Start: 06-05-2021 End: 11-07-2024 Sex Assigned At [employer] Other Start: 05-05-2021 End: 06-04-2021 Exposure to SARS-CoV-2 (event) Not sure [facility] National Score (1-100), lower number is lower risk 95 [facility] (I/We) worried whether (my/our) food would run out before (I/we) got money to buy more. Never true [employer] Start: 09-08-2023 Tobacco Comment intermittently since 15 [employer] Start: 05-03-2020 Alcohol Comment hardly ever [employer] Start: 10-29-2023 End: 01-03-2025 Alcoholic beverage intake Ex-drinker (finding) [facility] How often to you hav e a drink containing alcohol? 2-4 times a month [facility] How many standard drinks containing alcohol do you have on a typical day? 3 or 4 [facility] How often do you hav e 6 or more drinks on 1 occasion? Less than monthly [facility] Start: 01-19-2023 Education 16 [facility] Start: 10-28-2023 Alcohol Comment Caffine: 2 cups daily [facility] Start: 1970 Sex assigned at Female [facility] Start: 09-16-2022 Gender identity Identifies as female gender (finding) [facility] Start: 09-04-2024 End: 11-07-2024 Tobacco smoking status NHIS Ex-smoker (finding) [facility] Start: 09-04-2024 End: 11-23-2024 Sex Female (finding) [facility] Start: 07-05-1984 History of tobacco use Current smoker [facility] Medical Equipment Procedure Code Equipment Code Equipment Original Text Equipment Identifier Dates Impl Alena Spine R michael Ti35 Mm 55 Mm [id number] Start: 06-25-2020 Graft Spnl W11xh 6gt23ht Corticocancellous Lord Triad - [id number] Start: 05-09-2020 Plate Spnl L28mm Antr Cerv 1 Lev Translational Pala Acp [id number] Start: 05-09-2020 Screw Spnl L13mm Dia4mm Ant Cerv [facility] Ang Compr Pala Acp [id number] Start: 05-09-2020 Connector Spnl C rss Lo Prof Adj Reline-O 5.5 X 45-65 Mm [id number] Start: 06-25-2020 Screw Spnl Dia5. 5mm Opn Tulip Roselyn Reline [id number] Start: 06-25-2020 Graft Bne Sub 30 cc 1.7-10mm Canc Chip Morselized Frz Dry - [id number] Start: 06-25-2020 Graft Bne Sub 5m l Mtrx Cellular Osteocel + - [id number] Start: 06-25-2020 Spacer Spnl L W1 [id number] 4deg Post Lum Intbdy Fus Lord [id number] Start: 06-25-2020 Screw Spnl L50mm Dia7.5mm Post Thoracolumbosacral Polyax 2s [id number] Start: 06-25-2020 Screw Spnl L55mm Od6mm 2s Polyax Reline O [id number] Start: 06-25-2020 Alena Spnl Lordtc 5.5x40 Mm Ti Reline-O [id number] Start: 06-25-2020 Clip Endoscp 235 cm Resol 360 Order Uom Is Each - [id number] Start: 02-03-2024 Functional Status Date Assessment Result Facility 11-07-2024 Patient [facility] ionnaire 2 item (PHQ-2) [Reported] [facility] 11-07-2024 How difficult have t hese problems made it for you to do your work, take care of things at home, or get along with other people? Not difficult at all 11/07/2024 10:00 AM EDT Lesley Telles MA Not difficult at all [facility] Clinical Notes 04-02-2021 to 01-03-2025 John Gauthier DPM - 01/03/2025 4:00 PM EDTHazel Velásquez MD - 11/07/2024 10:00 AM EDTTelephone Encounter - Shivani Singh - 09/11/2024 3:48 PM EDT Note Date & Type Note Facility 01-03-2025 History of Present illness Narrative Images from the original note were not included. Subjective Patient ID: Pretty Garcia is a 54 y.o. female who presents for DM Foot Care (Pretty Garcia is a 54 y.o. female. Diabetic nail care. Dr. Velásquez 12/04/2024 BS 162 A1C 9.3. SS 7.5). HPI Established patient returns to clinic for diabetic foot check. Review of Systems Constitutional: Negative for activity change and appetite change. Respiratory: Negative for chest tightness and shortness of breath. Cardiovascular: Positive for leg swelling. Negative for chest pain. Musculoskeletal: Positive for arthralgias. Skin: Negative for color change and wound. Neurological: Positive for numbness. Negative for weakness. Psychiatric/Behavioral: Negative for agitation and behavioral problems. Hematological: Does not bruise/bleed easily. Endocrine: Negative for cold intolerance and heat intolerance. Allergic/Immunologic: Negative for immunocompromised state. Medications Current Outpatient Medications: acetaminophen (Tylenol) 325 [...] 50 MCG (2000 UT) capsule, Take by mouth., Disp: , Rfl: clobetasol (Temovate) 0.05 % [...] , Rfl: metFORMIN (Glucophage) 500 MG tablet, TAKE 1 TABLET BY MOUTH EVERY MORNING AND TAKE 1 TABLET BY MOUTH EVERY EVENING WITH A MEAL, Disp: 60 tablet, Rfl: 1 metoprolol succinate [...] mouth in the morning. Take before meals. (Patient taking differently: Take 40 mg by mouth in the morning. Take before meals.), Disp: 90 capsule, Rfl: 0 Ozempic, 0.25 or 0.5 MG/DOSE, 2 MG/3ML solution pen-injector, DIAL AND INJECT UNDER THE SKIN 0.5 MG WEEKLY, Disp: 3 mL, Rfl: 1 QUEtiapine (SEROquel) 400 MG tablet, , Disp: , Rfl: Allergies Ibuprofen and Tramadol [...] Timmis OVARIAN CYST REMOVAL 1987 -Dr. Chawla RI FASCIOTOMY FOOT&/TOE 1997 plantar RI KNEE SCOPE,DIAGNOSTIC Right 12/03/[address] HARRINGTON RI LAP,CHOLECYSTECTOMY 2000 ROTATOR CUFF REPAIR 06/05/2019 resection [...] distress. Appearance: She is obese. Comments: Smells of marijuana. HENT: Head: Normocephalic and atraumatic. Cardiovascular: Comments: DP and PT pulses palpable 2/4 bilaterally. Hair growth absent bilaterally. Skin is diffusely thin. Pulmonary: Effort: Pulmonary effort is normal. No respiratory distress. Musculoskeletal: Cervical back: Neck supple. Comments: Mild hammertoe contractures bilaterally. Ankle dorsiflexion 0 degrees with the knee extended, flexed. Skin: Capillary Refill: Capillary refill takes less than 2 seconds. Comments: Six toenails exhibit clinical mycosis with thickened appearance, yellow/brown discoloration, crumbly texture. All 10 toenails are elongated. Tenderness to palpation of bilateral hallux with impingement noted along the medial and lateral borders. No drainage or cellulitis. Hyperkeratotic tissue: Left foot: Plantar calcaneus. Tender to palpation. Right foot: None Neurological: Mental Status: She is alert. Comments: Protective sensation intact at 9/10 pedal sites bilaterally. Vibratory sensation diminished at the 1st MTP bilaterally. Psychiatric: Mood and Affect: Mood normal. Behavior: Behavior normal. Assessment/Plan ICD-10-CM 1. Onychomycosis B35.1 2. Onychodystrophy L60.3 3. Corns and callosities L84 4. Diabetic polyneuropathy associated with type 2 diabetes mellitus (HCC) E11.42 5. Ingrown toenail L60.0 6. Pain in both feet M79.671 M79.672 Patient was examined and evaluated. Ten toenails were debrided in length and thickness today utilizing a nail nipper and electric bur pulp grinder and blender without incident. A sterile #15 blade was utilized to reduce all hyperkeratotic tissue without incident and to patient's satisfaction. She will use ammonium lactate cream over the hyperkeratotic area on the heel with regular pumice stone debridement. I have discussed the importance of daily foot examinations and tight blood sugar control. We will follow up in 3 months for at risk diabetic foot evaluation. Patient did have some impingement along the medial and lateral borders of bilateral hallux. She has a history of chronic ingrowing nails with significant pain.Discuss risks and complications of observation versus phenol matricectomy. She will consider this as an option and let us know if she would like to proceed. She is considering bilateral hallux bilateral borders versus total phenol matricectomy bilateral hallux. Reasonable risks and complications discussed in detail. She will let us know if she would like to proceed. This note was created with the assistance of a speech recognition program. While intending to generate a timely document that accurately reflects the content of the visit, no guarantee can be provided that every grammatical or spelling mistake has been or will be identified or corrected. Thank you for your understanding. John Gauthier DPM documented in this encounter [facility] 11-08-2024 Note Patient here for res ults from 7 monitor. Patient states she still has the ups and downs of her heart. Patient states when her heart races or slows down she becomes symptomatic, with symptoms of dizziness and lightheaded. Patient states her sister was recently diagnosed with POTS. Review of Systems Cardiovascular: Positive for irregular heartbeat. Neurological: Positive for dizziness and light-headedness. [facility] 11-08-2024 Note Cardiovascular Medic ine [facility] SUBJECTIVE Chief Complaint Patient presents with [...] ago she started exercise program at the [facility]. This has helped her sx's some. 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 [facility] 11-07-2024 History of Present illness Narrative Images from the original note were not included. Lexi Garcia is a 54 y.o. female presents with chief complaint of mwv patient has been struggling with her STM the past couple of years. Family eye care in [place]. 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 SUBJECTIVE Chief Complaint Patient presents [...] ago she started exercise program at the [facility]. This has helped her sx's some. 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 [facility] 10-17-2024 Note Patient is here for [...] breath. Neurological: Positive for dizziness and light-headedness. [facility] 09-11-2024 Telephone encounter Note Pt called-she states she was supposed to let us know how the Ozempic went, she states it went well. She also scheduled an appt with Lukas. [facility] 09-11-2024 Miscellaneous Notes Pt called-she states she was supposed to let us know how the Ozempic went, she states it went well. She also scheduled an appt with Lukas. documented in this encounter [facility] 09-04-2024 Evaluation note Diagnosis Onset Date Resolution Dyspepsia acute September 04 1:55pm GERD (gastroesophageal reflux disease) acute September 04, 2024 1:55pm GERD (gastroesophageal reflux disease) acute November 23, 2024 1 0:43am [facility] Work Phone: 1(868) 327-500302-17-2025 History of Present illness Narrative* John Gauthier, MACO - 08/21/2024 3:15 PM EST Images from the original note were not [...] and she was very concerned that the lesionwas a symptom of a deeper problem. She [...] every 6 (six) hours if needed., Disp: ,Rfl: acyclovir (Zovirax) 400 MG tablet, , Disp: [...] , Rfl: cholecalciferol (Vitamin D-3) 50 MCG (1999) capsule, Take by mouth. (Patient not taking: [...] mg) by mouth in the morning. Take beforemeals., Disp: 90 capsule, Rfl: 0 QUEtiapine (SEROquel) 400 MG tablet, , Disp: , Rfl: semaglutide (Ozempic) 2 MG/1.5ML solution pen-injector, Inject 0.25 mg under the skin 1 (one) time per week, Disp: 1 each, Rfl: 0 sucralfate (Carafate) 1 g tablet, Take 1 tablet (1 g) by mouth in the morning and 1 tablet (1 g) atnoon and 1 tablet (1 g) in the evening and 1 tablet (1 g) before bedtime. Take before meals., Disp:120 tablet, Rfl: 0 Allergies Ibuprofen and Tramadol [...] Timmis OVARIAN CYST REMOVAL 1987 -Dr. Chawla RI FASCIOTOMY FOOT&/TOE 1997 plantar RI KNEE SCOPE,DIAGNOSTIC Right 12/03/[address] HARRINGTON RI LAP,CHOLECYSTECTOMY 2000 ROTATOR CUFF REPAIR 06/05/2019 resection [...] understanding. John Gauthier DPM documented in this encounter[facility] [id number] History of Present illness Narrative* Hazel Velásquez MD - 08/08/2024 9:30 AM EST Images from the original note were not included. Lexi Garcia is a 54 y.o. female presents with chief complaint of Diabetes (MINDI lorenzo is no longer practicing and patient [...] single exception. She was diagnosed with diabetes approximately1 month ago, following a previous diagnosis of prediabetes. She experiences tingling in her toes, which she attributes to high blood sugar levels, as this symptom subsides after taking metformin. Tangela received diabetes education from Lukas and has an upcoming appointment on 08/26/2024. She has been advised to monitor her carbohydrate intake instead of calories. She reports frequent headaches, which she suspects may be related to her diabetes. She is currently on amlodipine 10 mg for blood pressure management. She is considering injectable medications for diabetes management and has alreadylearned how to administer injections from caring for her mother. She is also planning to schedule an appointment with her rn care manager due to changes in her vision. She has a history of a retinal h ole. She has been experiencing a persistent sinus infection for several weeks, which she believes is spreading within her household. She reports no fever but has a history of ear infections. She has a history of coronary artery disease, with 40% to 50% blockage in two different parts of the coronary artery. She is under the care of a trapper bird at [facility]. She has been compliant with her cholesterol medication, but her triglyceride levels remain high. She is currently taking Zetia and atorvastatin for cholesterol management. She underwent an endoscopy on 02/03/2024, which revealed scar tissue. A subsequent biopsy performedon 06/04/[address] You, a general surgeon, showed no abnormalities. She has run out of omeprazole and is experiencing a recurrence of GERD symptoms. She reports that sucralfate was effective in m anaging her GERD symptoms. 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 She had a herpes outbreak on her [...] will continue her current dose of Metformin. Ozempicwill be initiated, pending insurance approval. She has been educated about the potential side effects of Ozempic, including increased reflux and decreased appetite. She has been advised to delay starting Ozempic until she has been on antibiotics for a few days to avoid gastrointestinal upset. She will continue her follow-ups with Lukas. Her hemoglobin A1c will be rechecked in 3 months. If Ozempicexacerbates her reflux or induces vomiting, it will [...] in two different parts. She is currently underthe care of a trapper bird at [facility]. 4. Cholesterol Management. Her LDL cholesterol is [...] Mixed hyperlipidemia (CMS/HCC) 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) Herpes infection Other Visit Diagnoses Poorly controlled type 2 diabetes mellitus with neuropathy (CMS/HCC) - Primary Relevant Orders Microalbumin / creatinine, urine ratio Morbid (severe) obesity due to excess calories (CMS/HCC) Body mass index (BMI) 38.0-38.9, adult Acute non-recurrent frontal sinusitis documented in this encounterFreeman [facility] & Sports [id number] History of Present illness Narrative* John Gauthier DPM - 07/25/2024 10:00 AM EST Images from the original note were not included. Subjective Patient ID: Pretty Garcia is a 54 y.o. female who presents for DM Foot Care (Pretty Garcia lonny 54 y.o. female who presents for diabetic [...] of the nail. She states that she doeshave some difficulty trimming the nail as well. [...] every 6 (six) hours if needed., Disp: ,Rfl: acyclovir (Zovirax) 400 MG tablet, , Disp: [...] bedtime. (Patient not taking: Reported on 07/06/2024), Disp:, Rfl: Allergies Ibuprofen and Tramadol Past Surgical History Past Surgical History: Procedure Laterality Date ADENOIDECTOMY CARPAL TUNNEL RELEASE Bilateral 2017 CERVICAL DISC SURGERY 2003 COLOGUA 02/02/2019 neg due in 3 yrs D&C [...] Timmis OVARIAN CYST REMOVAL 1987 -Dr. Chawla RI FASCIOTOMY FOOT&/TOE 1997 plantar RI KNEE SCOPE,DIAGNOSTIC Right 12/03/[address] HARRINGTON RI LAP,CHOLECYSTECTOMY 1999 ROTATOR CUFF REPAIR 06/05/2019 resection [...] utilizing a nail nipper and electric bur pulp grinder and blender without incident. We discussed phenol matricectomy for [...] understanding. John Gauthier DPM documented in this [facility]01-17-2025 Telephone encounter Note* Telephone Encounter - Sherly Ansari - 07/21/2024 11:49 AM EST 20% CO PAY WITH TEN 1 HR VISITS FIRST YEAR AND TWO 1 HR VISITS SUBSEQUENT YEARS [facility] [id number] Miscellaneous Notes* Telephone Encounter - Sherly Ansari - 07/21/2024 11:49 AM EST 20% CO PAY WITH TEN 1 HR VISITS FIRST YEAR AND TWO 1 HR VISITS SUBSEQUENT YEARS documented in this [facility]01-02-2025 History of Present illness Narrative* Hazel Velásquez MD - 07/06/2024 11:30 AM EST Images from the original note were not [...] She had an A1c done at her trapper bird and number was 9.3. She has hypertension. She is on amlodipine. She has coronary artery disease. She has not had any stents or heart attacks. She had a heart catheterization, which came back with coronary artery disease. She has high cholesterol. She is on Zetia and Lipitor. She is on Eliquis, a blood thinner. She started going to a acquisitions logistics analyst in [facility] because she has factor V Leiden. The acquisitions logistics analyst thought since she was getting older that [...] mg, Daily cholecalciferol (Vitamin D-3) 50 MCG (1999 UT) [...] day, including fasting, pre-meal, and 2 hours post- meal, and to maintain a log of these readings. She is encouraged to adopt a healthy diet and engage in regular physical activity to facilitate weight loss, which can improve insulin resistance. She will be initiated on metformin therapy, starting with a once-daily dose due to potential gastrointestinal side effects. If tolerated, the dosage will be increased to twice daily. A referral to a cook specialty will be made for further education and management. A prescription for glucometer strips will be provided upon request. If her blood glucose levels remain uncontrolled, additionalmedications may be considered. 2. Hypertension. Her blood pressure is currently well-controlled with amlodipine. She is advised to continue her current medication regimen. 3. Coronary artery disease. She has a history of coronary artery disease but has not required stents. She is currently on Eliquis for factor V Leiden and is advised to avoid anti- inflammatory medications like Celebrex, Motrin, Aleve, and ibuprofen [...] She received steroid injections in her neck andlower back last week. She is advised to continue gabapentin as it is safe to use with Eliquis. 7. Bipolar disorder. Her condition is currently well-controlled with Pristiq, Lamictal, and Seroquel. She is advised to continue her current medication regimen. 8. Health maintenance. An order for a mammogram will be placed as her last one was in 2021. She is advised to quit smokingas it can aid in pain management and [...] Mixed hyperlipidemia (CMS/HCC) 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) Other Visit Diagnoses Type 2 diabetes mellitus without complication, without long-term current use of insulin ([facility]/HCC) Relevant Medications metFORMIN (Glucophage) 500 MG tablet Encounter for screening mammogram for malignant neoplasm of breast Relevant Orders Bilateral screening mammogram with tomosynthesis documented in this encounterFreeman Orthopaedics & Sports [id number] History of Present illness Narrative* Erika Oconnor RN - 06/09/2024 11:30 AM EST Discharge Criteria Inpatients must meet Criteria 1 [...] answered. Pt verbalizes readiness to go home. * Mary Ann Dougherty RN - 06/05/2024 11:25 AM EST Patient states that received her prep instructions and home medications that are to be taken on theday of their procedure with a small sip of water only(atorvastatin, gabapentin, pristiq, metoprolol, omeprazole) from the physician's office. Patient has stopped her eliquis per her trapper bird, Dr Nikko mitchell, who also provided cardiac clearance form for [...] day of her procedure. She verbalized understanding. * Mary Ann Dougherty RN - 06/02/2024 2:43 PM EST Attempted PAT phone call; no answer; message left to return PAT phone call. documented in this encounterBon [facility] Discharge instructions* Discharge Instructions* Maximiliano You MD - 06/09/2024 10:50 AM [...] the lining of the esophagus, stomach (gastric) andduodenum (the first part of the small intestine). [...] one drug, even if it is an [id number] medication, herb, or dietary supplement, be sure [...] emergency, call 911 immediately. documented in this encounterBon [facility] Cardiovascular Medicine [facility] SUBJECTIVE Lexi Garcia is a 54 y.o. [...] Unstable angina (CMS/HCC) Coronary artery disease involving eastern cherokee coronary artery of eastern cherokee heart without angina pectoris Degenerative joint disease [...] C6 plates in 2020 Chronic pain disorder Clotting disorder ([facility]) Depression Factor V Leiden ([facility]) Fibromyalgia, primary GERD [...] needed in the morni (more content not included)...[facility] 01-25-2024 Note Attestation signed by Jessie [...] able to decrease Celebrex to 200 BID [facility] Follow-up Patient Visit Subjective [...] surgery with numbness in hands and decreased pathology tech strength, R>L shoulders, neck (better since ablation). AM stiffness lasts 1-2 hrs (was 2-3 hr prior),, on average daily. Denies joint erythema, swelling, warmth. Comprehensive History: Patient Active Problem List Diagnosis Chest pain, atypical Benign essential HTN HOFFMAN (dyspnea on exertion) Fibromyalgia Elevated d-dimer Mixed hyperlipidemia GERD without esophagitis Orthopnea Sleep disturbances Abnormal nuclear stress test Unstable angina (CMS/[facility]) Coronary artery disease involving eastern cherokee coronary artery of eastern cherokee heart without angina pectoris Degenerative joint disease [...] (Lipitor) 80 mg ta (more content not included)...[facility]10-04-2023 Miscellaneous Notes* Telephone Encounter - Gayle Washington MD - 04/07/2023 1:34 PM EDT Notify patient medication sent as requested Thank [...] above. Please process accordingly. Gayle Washington MD * Telephone Encounter - Nadine Bruce LPN - 04/07/2023 12:34 PM EDT Most recent Rheumatology visit: 12/12/2021 (with Gayle [...] notes faxed with confirmation. documented in this encounterOhiohealth Grady [facility]04-11-2023 NoteOPERATIVE NOTE OPERATION DATE: 10/13/2022 PRIMARY CARE PHYSICIAN: Kimberley Morgan D.O. SURGEON: Ulises Tim M.D. PREOPERATIVE DIAGNOSIS: [...] left cheek was prepped with Betadine. A Pitkin tip Bovie was then used to make [...] the recovery room in good condition. The [facility] [id number] NoteEXAM: XR CHEST 2 V HISTORY: Pre-surgery evaluation COMPARISON: None. TECHNIQUE: PA and lateral views of the chest. FINDINGS: The cardiomediastinal silhouette is normal. No focal consolidation is identified. There is no pneumothorax. No pleural effusion is noted. The osseous structures are intact. IMPRESSION: No acute cardiopulmonary process. Electronically authenticated by: JOSIAH WILKS Date: 2022-10-07 11:27The [facility] [id number] NoteCONSULTATION CONSULTATION DATE: 07/23/2022 HISTORY OF PRESENT ILLNESS: [...] those injections. Patient does agree with this plan.The [facility] 06-11-2022 NoteCONSULTATION CONSULTATION DATE: 06/11/2022 HISTORY OF PRESENT ILLNESS: [...] q.h.s. 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 Prescription(s) as above. Please process accordingly. Gayle Washington MD * Telephone Encounter - Marlee Joshi MA - 05/18/2022 12:37 PM EST [employer] message sent to patient reminding her to [...] Lab Orders Expected Expires Ordered HLA-B27 PCR [[id number]] 06/19/21 06/18/22 06/18/21 Auth. provider: Gayle Washington MD Assoc. diagnoses: Elevated sedimentation rate VITAMIN D 25 HYDROXY [SQVITD] 03/19/22 12/17/22 12/17/21 Auth. provider: Gayle Washington MD Assoc. diagnoses: Vitamin D deficiency documented in this encounterOhiohealth Grady Memorial Hospital10-13-2022 NoteCONSULTATION PROCEDURE DATE: 04/16/2022 The patient was brought [...] seen at the clinic in three months' time.The [facility] [id number] NoteCONSULTATION CONSULTATION DATE: 04/09/2022 HISTORY OF PRESENT ILLNESS: [...] to return to the clinic for her injection.The [facility] [id number] NoteCONSULTATION CONSULTATION DATE: 01/01/2022 This is a pleasant 51-year-old female returning to the clinic status post #2 bilateral MBB on C3, C4 and C5 that afforded her 80% relief for 5 days. She was recently at her epic professional's and was diagnosed with fibromyalgia and she [...] be followed up in the clinic post-procedure. [facility] Signed and Approved by: BEN MONROE . 01/08/2022 10:22:00[facility]06-15-2022 Miscellaneous Notes* Telephone Encounter - Kamryn Luna MA - 12/17/2021 4:04 PM EDT Pt aware. Kamryn Luna MA * Telephone Encounter - Gayle Washington MD - 12/17/2021 4:01 PM EDT Notify patient request granted Thank you. * Telephone Encounter - Kamryn Luna MA - 12/17/2021 3:12 PM EDT Pt aware of message below. Patient states that she can get disability with certain diagnosis.' she states that fibromyalgia was explained to her through my chart. She wants to know if this can be added to her diagnosis' list on her chart? Please advise. Kamryn Luna MA * Telephone Encounter - Gayle Washington MD - 12/17/2021 2:47 PM EDT Please Call patient if MyChart note not read to review results/released to My Chart if tests completed at [facility]: Mildly low vitamin D- increase [...] lateral, both oblique and AP and lateral coned- down views of lumbosacral junction were obtained. Patient [...] small superior labral tear; documented in this encounterOhiohealth Grady Memorial Hospital06-10-2022 NoteHNO ID: [id number] Author: Gayle Washington MD Service: ? Author [...] happy with rheum care. No fx/trauma/illness/oral sores/rash/hairloss/jaw pain/dysphagia/epistaxis/hemoptysis since last visit. No adverse effects with meds. No other complaints. Patient denies fever, chills, cp, dyspnea, nausea, vomiting, night sweats, scalp tenderness, visual changes, jiang, bowel/bladder changes, weight changes or other complaints. Last visit supportive care, start flexeril/notify office if not tolerated, improved with mobic, see ortho/pain clinic for long term care pharmacist pain recommendations/injections, prn acetaminophen, start prn heat/ice/otc [...] recently Reports pain 12/12 No falls/fx/trauma/illness/oral sores/rash/hairloss/jaw pain/dysphagia/epistaxis/hemoptysis. No adverse effects with meds. No other complaints. Patient denies fever, chills, cp, dyspnea, nausea, vomiting, night sweats, scalp tenderness, visual changes, jiang, bowel/bladder changes, weight changes or other complaints. COMPLETE REVIEW OF SYSTEMS: RHEUM. ROS: Joint pain: yes R>L shoulders, neck, knees, hips, low back Joint swelling: no Am stiffness: yes Low back pain: yes Dactylitis: no H/o precedent/frequent infection(s): no Enthesopathy/[place]'s/heel/plantar tenderness: as above Skin thickening, psoriasis, photosensitivity, purpura: no Nail changes: ridges/ripples Alpecia, patchy: no Eye inflammation: glasses, R retinal hole SICCA: dry eyes Oral/nasal/genital ulcers: no GI problems-diarrhea/bleeding/IBD/Gluten intolerence/Dysphagia: gerd Raynaud's phenomenon/digital ulcers: no Organ inv-Serositis: no Lung disease/ILD: no Myopathy/proximal muscle weakness: no Abnormal Urine or urethritis: no Renal/liver disease: no 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 COVID vaccine [employer] 06/26/21. Feels safe at home. Has enough food, supplies and medications. Overall uncomfortable but happy with rheum care. No fx/trauma/illness/oral sores/rash/hairloss/jaw pain/dysphagia/epistaxis/hemoptysis since last visit. No adverse effects with meds. No other complaints. Patient denies fever, chills, cp, dyspnea, nausea, vomiting, night sweats, scalp tenderness, visual changes, jiang, bowel/bladder changes, weight changes or other complaints. Last visit supportive care, start flexeril/notify office if not tolerated, improved with mobic, see ortho/pain clinic for long term care pharmacist pain recommendations/injections, prn acetaminophen, start prn heat/ice/otc arthritis creams, low impact weightbearing exercise as tolerated, avoid aggravating triggers,supportive care, start flexeril/notify office if not tolerated, improved with mobic, see ortho/pain clinic for long term care pharmacist pain recommendations/injections, prn acetaminophen, start prn heat/ice/otc arthritis creams, low impact weightbearing exercise as tolerated, avoidaggravating triggers, June 04, 2021 SUBJECTIVE Ms. Garcia [...] recently Reports pain 12/12 No falls/fx/trauma/illness/oral sores/rash/hairloss/jaw pain/dysphagia/epistaxis/hemoptysis. No adverse effects with meds. No other complaints. Patient denies fever, chills, cp, dyspnea, nausea, vomiting, night sweats, scalp tenderness, visual changes, jiang, bowel/bladder changes, weight changes or other complaints. COMPLETE REVIEW OF SYSTEMS: RHEUM. ROS: Joint pain: yes R>L shoulders, neck, knees, hips, low back Joint swelling: no Am stiffness: yes Low back pain: yes Dactylitis: no H/o precedent/frequent infection(s): no Enthesopathy/[place]'s/heel/plantar tenderness: as above Skin thickening, psoriasis, photosensitivity, purpura: no Nail changes: ridges/ripples Alpecia, patchy: no Eye inflammation: glasses, R retinal hole SICCA: dry eyes Oral/nasal/genital ulcers: no GI problems-diarrhea/bleeding/IBD/Gluten intolerence/Dysphagia: gerd Raynaud's phenomenon/digital ulcers: no Organ inv-Serositis: no Lung disease/ILD: no Myopathy/proximal muscle weakness: no Abnormal Urine or urethritis: no Renal/liver disease: no 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 06/04/21 hip xrays-There is a [...] maintained.The patient is status post plate and screwsfixation of the lower cervical spine. 06/04/21 hand [...] EXTREMITIES: Adequate pulses b/l UE ; No clubbing,discoloration,sclerodactyly, periungual erythema,digital ulcers, nail pitting, edema, varicosities. MUSCULOSK: No joint deformities, no rheumatoid nodules, calcifications or tophi. No SI tenderness, no kelley's tenderness, no heel/plantar tenderness, lumbar flexion full, negative Jarvis's test, tinel's and marti tests [facility] JTS:no Tend. JTS:R>L shoulders, L elbow, neck, [...] with PMH R retinal hole, s/p NAYELI/BSO 2017 dropped bladder ands/p bladder sling, s/p R plantar fasciitis surgery, [...] secondary osteoarthritis of multiple joints, cervicalgia, lumbago withsciatica, chronic pain syndrome, low vitamin D here taking mobic no longer working. Wants to retry celebrex. Occasionally takes flexeril, completed vitamin D script. Taking daily vitamin D 2000 International Units daily with food. Chronic current pain in L>R knees, R shoulder, L elbow, neck. Reports pain 5-6/10. L>R knees, L knee slightly better after L knee scope/cleaned out. L elbow locksup. minimal AM stiffness. Fell 3times since last office visit, flat ground knees give out. COVID vaccine [employer] 06/26/21. Feels safe at home. Has enough food, supplies and medications. Overall uncomfortable but happy with rheum care. = supportive care, start celebrex/notify office if not tolerated, OFF mobic/initially improved withmedication but now effect wore off, prn flexeril, see pain clinic for nursing home pain recommendations, see ortho/pain clinic for nursing home pain [...] jumping, running or jogging or movements where youbend forward and twist the waist, for instance- touching your toes, sit-ups, using row machine OFF gabapentin due to side effects OFF lyrica no response long term care pharmacist pain recommendations per primary care provider/pain clinic nonfasting labs as scheduled Additional time spent with patient on healthy lifestyle, healthy food and anti- inflammatory diet (with emphasis on whole plant based [...] continued care. Will follow disease activity/progression and adjusttherapeutic regimen to disease activity and severity. Discussed [...] time spent via video & audio (virtual) orphone or face to face with patient, in consultation, and in addition to Counseling and Coordinationof Care, explanation of diagnosis, and planning of further management; I spent a total of 30 minutes on the date of the service which included preparing to see the patient, video & audio (virtual) or phone or [id number] patient care, completing clinical documentation, obtaining and/or [...] physician/Primary care physician : Dear Dr.Renee Leora Morgan DO: I had the pleasure of seeing [...] letter/electronic shared medical records. cc Dr.Renee Leora Morgan DO documented in this encounterOhiohealth [facility]ady [facility]06-10-2022 Instructions* Patient Instructions* Gayle Washington MD - 12/12/2021 10:40 AM [...] jumping, running or jogging or movements where youbend forward and twist the waist, for instance- touching your toes, sit-ups, using row machine OFF gabapentin due to side effects OFF lyrica no response long term care pharmacist pain recommendations per primary care provider/pain clinic nonfasting labs as scheduled Thank you. documented in this encounterOhiohealth Grady [facility] Hospital06-07-2022 Miscellaneous Notes* Telephone Encounter - Nataliya Dykes - 12/09/2021 2:42 PM EDT Patient has been scheduled as requested for 12/12/21. Referral has been attached. I spoke with Ms. Garcia and she is aware of all of the appointment details. Nataliya DYKES December 09, 2021 2:43 PM * Telephone Encounter - Sanam Ortega - 12/08/2021 9:55 AM EDT Patient calling to schedule follow up appt with Dr Washington no schedule pulling for [employer] only [place]. Patient requesting call at [phone] Washington is still at [employer]. Please advise. documented in this encounterOhiohealth Grady Memorial Hospital05-17-2022 NotePAIN MANAGEMENT CONSULTATION CONSULTATION DATE: 11/18/2021 CHIEF COMPLAINT: Cervical pain. HISTORY OF PRESENT ILLNESS: This is a 51-year-old female who had, in the past, been seen by Dr. Brunner, Pain Management in [place], [place]. The patient had changed her insurances to [employer] and, as such, Dr. Brunner does not [...] and would like to proceed. CC: Kimberley Morgan D.O. [facility] Signed and Approved by: DR RACHEL STOCK . 11/25/2021 12:22:00[facility]04-12-2022 Evaluation note* Encounter Date Diagnosis Assessment Notes Treatment Notes Treatment Clinical Notes Oct, Shoulder pain, right (ICD-10 - [...] nerve block in the future if needed. [employer] Other 12-28-2021 Evaluation note* Encounter Date Diagnosis [...] right hip to further evaluate her pain. [facility] Other 12-15-2021 Evaluation note* Encounter Date Diagnosis [...] (ICD-10 - G89.29) Continue medications as prescribed [employer] Other 11-11-2021 Evaluation note* Encounter Date Diagnosis [...] (ICD-10 - G89.29) Continue medications as prescribed [employer] Other 09-29-2021 Evaluation note* Encounter Date Diagnosis [...] injection under ultrasound guidance in the future. [facility] Other Evaluation note* Diagnosis Secondary osteoarthritis of [...] Chronic pain syndrome documented in this encounter [facility] noteNo InformationNortMain Line Health/[facility] Other Evaluation note* Diagnosis Secondary osteoarthritis of multiple sites- Primary Osteoarthrosis involving, or with mention of more than one site, but not specified as generalized, multiple sites Vitamin D deficiency Unspecified vitamin D deficiency Fibromyalgia Mylagia and myositis, unspecified documented in this encounter [facility] note* Diagnosis Secondary osteoarthritis of multiple sites Osteoarthrosis involving, or with mention of more than one site, but not specified as generalized, multiple sites [facility]* Diagnosis Chronic hip pain, bilateral Chronic left shoulder pain Pain in joint, shoulder region Chronic pain of both knees Bilateral hand pain Pain in limb documented in this encounter [facility] note* Diagnosis Secondary osteoarthritis of multiple sites Osteoarthrosis involving, or with mention of more than one site, but not specified as generalized, multiple sites Cervicalgia Chronic bilateral low back pain with bilateral sciatica documented in this encounter 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) Factor 5 Leiden mutation, heterozygous (CMS/HCC) Bipolar 1 disorder (CMS/HCC) Cigarette smoker Tobacco use disorder Mixed hyperlipidemia (CMS/HCC) Mixed hyperlipidemia Type 2 diabetes mellitus without complication, without long-term current use of insulin (CMS/HCC) Encounter for screening mammogram for malignant neoplasm of breast documented in this encounter [facility] HealthcareEvaluation note* Diagnosis Diabetic polyneuropathy associated with type 2 diabetes mellitus (CMS/HCC)- Primary Onychomycosis Dermatophytosis of nail Onychodystrophy Other specified disease of nail Pain in both feet documented in this encounter [facility] Healthcare[facility] note* Diagnosis Poorly controlled type 2 diabetes mellitus with neuropathy (CMS/HCC)- Primary Morbid (severe) obesity due to excess calories (CMS/HCC) Body mass index (BMI) 38.0-38.9, adult Acute non-recurrent frontal sinusitis Herpes infection Herpes simplex without mention of complication Benign essential HTN (CMS/HCC) 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) Gastroesophageal reflux disease without esophagitis Esophageal reflux Cigarette smoker Tobacco use disorder Mixed hyperlipidemia ([facility]/HCC) Mixed hyperlipidemia documented in this encounter [facility] HealthcareEvaluation note* Diagnosis Corns and callosities- Primary Diabetic polyneuropathy associated with type 2 diabetes mellitus (CMS/HCC) Left foot pain Pain in soft tissues of limb documented in this encounter [facility] HealthcareEvaluation note* Diagnosis Onset Date Resolution Status Admit Date Dyspepsia acute September 04 1:55pm [facility] Clinic Work Phone: Evaluation note* Diagnosis Annual wellness visit- Primary Nicotine abuse Cyst, dermoid, arm, right Type 2 diabetes mellitus without complication, without long-term current use of insulin Nicotine dependence, cigarettes, in remission Seasonal allergic rhinitis due to pollen Benign essential HTN (CMS/HCC) Factor 5 Leiden mutation, heterozygous (CMS/HCC) Mixed hyperlipidemia (CMS/HCC) Mixed hyperlipidemia documented in this encounter [facility] HealthcareEvaluation note* Diagnosis Type 2 diabetes mellitus without complication, without long-term current use of insulin documented in this encounter [facility] HealthcareEvaluation note* Diagnosis Onychomycosis- Primary Dermatophytosis of nail Onychodystrophy Other specified disease of nail Corns and callosities Diabetic polyneuropathy associated with type 2 diabetes mellitus (HCC) Ingrown toenail Ingrowing nail Pain in both feet documented in this encounter [facility] general Narrative - Reported* Type Description Date Medical History allergies Medical History factor 5 blood disorder Medical History anxiety Medical History depression Medical History bipolar Medical History lumbar DDD Surgical History back surgery 06/2021 Surgical History neck surgery 05/2021 Hospitalization History see above [facility] Other History general Narrative - Reported* Type Description Date Medical History allergies Medical History factor 5 blood disorder Medical History anxiety Medical History depression Medical History bipolar Medical History lumbar DDD Medical History osteoarthritis of multiple joint s Surgical History back surgery 06/2021 Surgical History neck surgery 05/2021 Hospitalization History see above [facility] Other History of Present illness NarrativePatient has continued intermittent pain symptoms in her right shoulder she is remotely status post rotator cuff repair she had a follow-up MRI scan recently she would like to review with me today. She had a subacromial injection but it did not resolve all of her symptoms.[id number] Work Phone: Reason for referral (narrative)* Diagnostic Procedure Only (Routine) - Closed Specialty Diagnoses / Procedures Referred By Margarita vanegas Referred To Contact XR IMAGING Diagnoses Bilateral hand pain Procedures XR HAND GENERAL 3V PA/LAT/OBL BILATERAL X-RAY HAND MINIMUM 3 VIEWS Gayle Washington MD [address] [facility] [place] [place] [address] Xr Imaging Referral ID Status Reason Start Date Expiration Date V isits Requested Visits Authorized [id number] Closed Auto-Generate d Referral 06/04/2021 07/04/2022 1 1 * Diagnostic Procedure Only (Routine) - Closed Specialty Diagnoses / Procedures Referred By Margarita vanegas Referred To Contact XR IMAGING Diagnoses Chronic pain of both knees Procedures XR KNEE GENERAL 4V AP BOTH/PA BOTH/LAT/MERC BILATERAL KNEE AP-WGT/LAT/MERCHANT Gayle Washington MD [address] [facility] [place] [address] Xr Imaging Referral ID Status Reason Start Date Expiration Date V isits Requested Visits Authorized [id number] Closed Auto-Generate d Referral 06/04/2021 07/04/2022 1 1 * Diagnostic Procedure Only (Routine) - Closed Specialty Diagnoses / Procedures Referred By Contac t Referred To Contact XR IMAGING Diagnoses Chronic left shoulder pain Procedures XR SHOULDER GENERAL 3V OR MORE AP/TRUE AP/OTHER LEFT X-RAY SHOULDER COMPLET MIN 2 VIEWS Gayle Washington MD [address] [facility] [place] [address] Xr Imaging Referral ID Status Reason Start Date Expiration Date V isits Requested Visits Authorized [id number] Closed Auto-Generate d Referral 06/04/2021 07/04/2022 1 1 * Diagnostic Procedure Only (Routine) - Closed Specialty Diagnoses / Procedures Referred By Contac t Referred To Contact XR IMAGING Diagnoses Chronic hip pain, bilateral Procedures XR HIP BILATERAL 5V PEL/AP/LAT EACH HIP RADEX HIPS BILATERAL WITH PELVIS MINIMUM 5 VIEWS Gayle Washington MD [address] [place] [address] Xr Imaging Referral ID Status Reason Start Date Expiration Date V isits Requested Visits Authorized [id number] Closed Auto-Generate d Referral 06/04/2021 07/04/2022 1 1 [facility] for visit Narrative* Diagnostic Procedure Only (Routine) - Closed Specialty Diagnoses / Procedures Referred By Contac t Referred To Contact XR IMAGING Diagnoses Bilateral hand pain Procedures XR HAND GENERAL 3V PA/LAT/OBL BILATERAL X-RAY HAND MINIMUM 3 VIEWS Gayle Washington MD [address] [place] [address] Xr Imaging Referral ID Status Reason Start Date Expiration Date V isits Requested Visits Authorized [id number] Closed Auto-Generate d Referral 06/04/2021 07/04/2022 1 [...] Advance Directives No May 04, 2017 10:18am Advance Directive Response Recorded Date/ Time Advance Directives No May 04, 2017 11:18am Chief Complaint RIGHT SHOULDER FUV/ NK Reason for Referral Specialty Diagnoses / Procedures Referred By Margarita vanegas Referred To Contact Orthopedics Diagnoses Chronic pain of both knees Chronic right shoulder pain Elbow pain, left Procedures CONSULT TO ORTHOPAEDICS OFFICE/OUTPATIENT [facility] 60-74 MINUTES Gayle Washington MD [address] [place] [address] Referral ID Status Reason Start Date Expiration Date Visits Requested Visits Authorized [id number] Pending Review PCP Requested Referral 12/12/2021 12/12/2022 1 1 Chief Complaint and Reason for Visit Chief Complaint Admit Date Refer: GERD September 04, 2024 1:55 pm Reason for Visit Admit Date Dyspepsia September 04, 2024 1:55 pm Chief Complaint Admit Date Refer: GERD September 04, 2024 1:55 pm 6wk f/u GERD November 23, 2024 10:43 am Reason for Visit Admit Date Dyspepsia September 04, 2024 1:55 pm GERD (gastroesophageal reflux disease) M 2024 1:55pm GERD (gastroesophageal reflux disease) M 2024 10:43am Additional Source Comments INFORMATION SOURCE (unrecogn ized section and content) DATE CREATED AUTHOR 06/20/2020 [facility] DATE CREATED AUTHOR AUTHOR'S ORGANIZ ATION 06/27/2020 [facility] DATE CREATED AUTHOR AUTHOR'S ORGANIZ ATION 12/01/2020 [facility] DATE CREATED AUTHOR AUTHOR'S ORGANIZ ATION 02/23/2021 [facility] DATE CREATED AUTHOR AUTHOR'S ORGANIZ ATION 02/23/2021 [employer] DATE CREATED AUTHOR AUTHOR'S ORGANIZ ATION 12/26/2021 [facility] DATE CREATED AUTHOR AUTHOR'S ORGANIZ ATION 07/02/2022 [facility] DATE CREATED AUTHOR AUTHOR'S ORGANIZ ATION 10/08/2022 [facility] DATE CREATED AUTHOR AUTHOR'S ORGANIZ ATION 10/20/2022 [facility] DATE CREATED AUTHOR AUTHOR'S ORGANIZ ATION 06/16/2024 [facility] DATE CREATED AUTHOR AUTHOR'S ORGANIZ ATION 12/28/2024 [facility] DATE CREATED AUTHOR AUTHOR'S ORGANIZ ATION 01/16/2025 [facility] DATE CREATED AUTHOR AUTHOR'S ORGANIZ ATION 02/15/2025 [facility] EPIC Source Comments (unrecognize d section and content) [...] Diagnoses Follow Up Procedures OFFICE/OUTPATIENT ESTABLISHED [facility] 30-39 MIN Follow Up Gayle Washington MD [address] [place] [address] [facility] [address] [place] [address] Referral ID Status Reason Start Date Expiration Date Visits Requested Visits Authorized [id number] Waiting for Response OON/Self Pay Override Patient cleared - OON Required Payment Collected 12/08/2021 03/08/2022 1 1 Reason Comments Appointment Reason Comments Results Specialty Diagnoses / Procedures Referred By Margarita vanegas Referred To Contact Diagnoses GERD (gastroesophageal reflux disease) GERD (gastroesophageal reflux disease) [K21.9] Procedures RI ESOPHAGOGASTRODUODENOSCOPY TRANSORAL DIAGNOSTIC RI EGD TRANSORAL BIOPSY SINGLE/MULTIPLE RI EGD BALLOON DILATION ESOPHAGUS <30 MM DIAM ESOPHAGOGASTRODUODENOSCOPY Maximiliano You MD [address] [place] [address] [facility] [address] [place] [address] Referral ID Status Reason Start Date Expiration Date Visits Re quested Visits Authorized [id number] 1 1 Reason Onset Date Comments dsme [...] 162 A1C 9.0. SS 7.5 Reason Comments Med Refill Reason Comments DM Foot Care Pretty Garcia is a 54 y.o. female. Diabetic nail care. Dr. Velásquez 12/04/2024 BS 162 A1C 9.3. SS 7.5 Care Teams (unrecognized sec tion and content) Tools And Parts Attendant Relationship Specialty Start Date End Date EdwigeKimberley villeda, DO [address] [place] [address] PCP - General Family Practice 06/04/21 Tools And Parts Attendant Relationship Specialty Start Date End Date EdwigeKimberley DO [address] [place] [address] PCP - General Family Practice 06/04/21 Tools And Parts Attendant Relationship Specialty Start Date End Date EdwigeKimberley DO [address] [place] [address] PCP - General Family Medicine 06/04/21 Tools And Parts Attendant Relationship Specialty Start Date End Date EdwigeKimberley DO [address] [place] [address] PCP - General Family Medicine 06/04/21 Tools And Parts Attendant Relationship Specialty Start Date End Date Kimberley Morgan DO [address] [place] [address] PCP - General Family Medicine 06/04/21 Tools And Parts Attendant Relationship Specialty Start Date End Date Kimberley Morgan DO [address] [place] [address] PCP - General Family Medicine 06/04/21 Tools And Parts Attendant Relationship Specialty Start Date End Date Hazel Velásquez MD [address] [place] [address] PCP - General Family Medicine 10/28/23 Tools And Parts Attendant Relationship Specialty Start Date End Date Hazel Velásquez MD [address] [place] [address] PCP - General Family Medicine 10/28/23 Tools And Parts Attendant Relationship Specialty Start Date End Date Hazel Velásquez MD [address] [place] [address] PCP - General Family Medicine 10/28/23 Tools And Parts Attendant Relationship Specialty Start Date End Date Hazel Velásquez MD [address] [place] [address] PCP - General Family Medicine 10/28/23 Tools And Parts Attendant Relationship Specialty Start Date End Date Hazel Velásquez MD [address] [place] [address] PCP - General Family Medicine 10/28/23 Tools And Parts Attendant Relationship Specialty Start Date End Date Hazel Velásquez MD [address] [place] [address] PCP - General Family Medicine 10/28/23 Tools And Parts Attendant Relationship Specialty Start Date End Date Hazel Velásquez MD [address] [place] [address] PCP - General Family Medicine 10/28/23 Tools And Parts Attendant Relationship Specialty Start Date End Date Hazel Velásquez MD [address] [place] [address] PCP - General Family Medicine 10/28/23 Daphney Hubbard MD [address] [place] [address] PCP - Medical [place] 07/05/2407/04 Tools And Parts Attendant Relationship Specialty Start Date End Date Hazel Velásquez MD [address] [place] [address] PCP - General Family Medicine 10/28/23 Daphney Hubbard MD [address] [place] [address] PCP - Medical [place] 07/05/2407/04 Team Status: Active Member Role Status Dates NON STAFF Primary Care Provider Active Team Status: Inactive Member Role Status Dates Marc Rhoades , AUTOMATIC BLOCKER Attending Provider Active Start: September 04, 2024 End: September 04, 2024 Hazel Velásquez MD Referring Provider A ctive Start: September 04, 2024 End: September 04, 2024 NON STAFF Primary Care Provider Active Start: September 04, 2024 End: September 04, 2024 Tools And Parts Attendant Relationship Specialty Start Date End Date Hazel Velásquez MD [address] [place] [address] PCP - General Family Medicine 10/28/23 Daphney Hubbard MD [address] [place] [address] PCP - Medical [place] 07/05/2407/04 Tools And Parts Attendant Relationship Specialty Start Date End Date Hazel Velásquez MD [address] [place] [address] PCP - General Family Medicine 10/28/23 Daphney Hubbard MD [address] [place] [address] PCP - Medical [facility] [place] 07/05/2407/04 Tools And Parts Attendant Relationship Specialty Start Date End Date Hazel Velásquez MD [address] [facility] [place] [address] PCP - General Family Medicine 10/28/23 Daphney Hubbard MD [address] [facility] [place] [address] PCP - Medical [place] 07/05/2407/04 Tools And Parts Attendant Relationship Specialty Start Date End Date Hazel Velásquez MD [address] [facility] [place] [address] PCP - General Family Medicine 10/28/23 Daphney Hubbard MD [address] [facility] [place] [address] PCP - Medical [place] [place] 07/05/2407/04 Tools And Parts Attendant Relationship Specialty Start Date End Date Hazel Velásquez MD [address] [facility] [place] [address] PCP - General Family Medicine 10/28/23 Daphney Hubbard MD [address] [facility] [place] [address] PCP - Medical [place] 07/05/2407/04 Team Status: Inactive Member Role Status Dates NON STAFF Primary Care Provider Active Start: November 23, 2024 End: November 23, 2024 Marc Rhoades APRN Attending Provider Active Start: November 23, 2024 End: November 23, 2024 Tools And Parts Attendant Relationship Specialty Start Date End Date Hazel Velásquez MD [address] [place] [address] PCP - General Family Medicine 10/28/23 Daphney Hubbard MD [address] [place] [address] PCP - Medical [facility] 07/05/2407/04 Scheduled Active and Recently Administ ered [...] BE BASED ON THE PRIMARY CLINICAL RECORDS. [employer] provides no warranty or guarantee of the accuracy or completeness of information in this document.
[2025-02-19 10:22] VITALS: BP 125/87; PULSE 82; TEMP 36.2; O2SAT 97
[2025-02-19 11:01] VITALS: BP 136/85; BP 143/88; PULSE 77; PULSE 84; O2SAT 97
[2025-02-19] MEDS: BUPIVACAINE HCL 0.25% PF 25 MG/10 ML VIAL 8 ML INJ (11:02)
[2025-02-19] MEDS: LIDOCAINE HCL 2% 400 MG/20 ML MDV INJ (11:02)
--- NOTE | 2025-02-19 11:05 | W.PM.PROCNOT ---
Date of procedure: 02/19/25 Pre-op diagnosis: Pain due to lumbar spondylosis without myelopathy Post-op diagnosis: same as pre-op Procedure: Procedure: Bilateral L3-4, L4-5 medial branch block Medications: Bupivacaine 0.25% 6cc The patient was seen and examined in the preoperative holding area.? An informed consent was obtained and placed on the chart.? The patient was brought to the medical procedure unit and placed in the prone position.? A timeout was completed verifying correct patient, procedure site, positioning, plan, and special equipment.? Using aseptic technique, the needle was placed at left L3. Under direct fluoroscopic visualization a Quincke-tipped spinal needle was advanced to the junction of the superior articulating process with the transverse process at the designated medial branch segment.? Preceded by negative aspiration, the above-mentioned injectate was placed in 1 mL aliquots.? The procedure was repeated at left L4, l5.? The needle was removed and insertion site was covered. The same procedure, at the same levels, was completed on the right side. The patient was taken to the postprocedural recovery area and monitored for an appropriate length of time before found suitable for discharge in the company of a responsible adult. Anesthesia: Local Surgeon: Rosibel Cotton Pathology: none sent Condition: stable Disposition: no change
== END 2025-02-19 11:07 | disposition home or self-care (01) ==
PROVIDERS: Visit Provider Anesthesiology
DX: M47.816 Spondylosis without myelopathy or radiculopathy, lumbar region (principal); M54.50 Low back pain, unspecified; E11.8 Type 2 diabetes mellitus with unspecified complications; Z79.85 Long-term (current) use of injectable non-insulin antidiabetic drugs; Z79.84 Long term (current) use of oral hypoglycemic drugs
CPT/HCPCS: 36415; 64493; 64494; 82948; J0665

== ENCOUNTER 2025-03-01 10:48 | Outpatient (OUT) | payer MEDICARE, SELFPAY ==
--- OUTSIDE RECORDS SUMMARY | 2025-03-01 10:51 | XMS_ITS | Clinical Summary ---
Author Organization [facility] Address [address] [place] [address] Phone Care Team Providers Care Sludge Filtration Operator Name Role Phone Mark Tomas MD Primary Care Provider + Social History Tobacco Use Types Packs/Day Years Used Date Smoking Tobacco: Never Assessed Comments Unknown Sex and Gender Information Value Date Recorded Sex Assigned at Not on file Legal Sex Female 5:21 AM EST Gender Identity Not on file Sexual Orientation Not on file Plan of Treatment Not on file Care Teams Sludge Filtration Operator Relationship Specialty Start Date End Date Mark Tomas MD [address] [place] [address] PCP - General 04/04/19
--- OUTSIDE RECORDS SUMMARY | 2025-03-01 10:52 | XMS_ITS | Clinical Summary ---
Author Organization [facility] Address [address] [place] [address] Care Team Providers Care Drilling Field Specialist Name Role Phone Hazel Molina MD Primary Care Provider [phone] Daphney Hubbard MD Unavailable Allergies Active Allergy [...] complication, without long-term current use of insulin ([facility]) DIAL AND INJECT UNDER THE SKIN 0.5 [...] unspecified knee 024 Activated protein C resistance ([facility]) 024 Hereditary deficiency of other clotting factors [...] not recommended Coronary artery disease invo lving [place] coronary artery of [place] heart with angina pectoris 02/10/2023 Overview (02/11/2023): [...] classified 01/10/2020 Factor 5 Leiden mutation, heterozygous ([facility]) 12/22/2019 Seasonal allergies 12/18/2019 High blood pressure [...] Description 02/13/2025 2:40 PM EDT Office Visit [facility] [address] [facility] [place] [phone] Hazel Molina MD Nicotine abuse (Primary Dx); Type 2 diabetes mellitus without complication, without long-term current use of insulin (HCC); Nausea and vomiting, unspecified vomiting type; Memory loss; Marijuana smoker 02/13/2025 Orders Only [facility] [address] [facility] [place] [phone] Hazel Molian MD 02/13/2025 Bamboo flowsheet [facility] [address] [facility] [place] [phone] aHzel Molina MD 02/13/2025 Travel 01/07/2025 Refill [facility] [address] [facility] [place] [address] Hazel Molina MD Type 2 diabetes mellitus without complication, without long-term current use of insulin (HCC) 01/03/2025 4:00 PM EDT Office Visit [facility] [address] [place] [address] John Gauthier DPM Onychomycosis (Primary Dx); Onychodystrophy; Corns and callosities; Diabetic polyneuropathy associated with type 2 diabetes mellitus (HCC); Ingrown toenail; Pain in both feet 01/03/2025 Bamboo flowsheet [facility] [address] [place] [phone] John Gauthier DPM 01/03/2025 Travel 01/02/2025 Travel 12/04/2024 Results Follow-Up [facility] [address] [place] [phone] Hazel Molina MD CT lung screening low dose, US Soft Tissue Palpable Mass 12/01/2024 12:30 PM EDT Ancillary Procedure [facility] [address] [facility] [address] [place] [phone] Encounter for screening mammogram for malignant neoplasm of breast 12/01/2024 12:00 PM EDT Ancillary Procedure [facility] [address] [facility] [address] [place] [address] Cyst, dermoid, arm, right 12/01/2024 11:30 AM EDT Ancillary Procedure [facility] [address] [facility] [address] [place] [address] Nicotine abuse; Nicotine dependence, cigarettes, in remission 12/01/2024 Results Follow-Up [facility] [address] [place] [phone] Hazel Molina MD Bilateral screening mammogram with [...] Job 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 Date 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 End Date [employer]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 Not on file [...] Description 04/06/2025 11:15 AM EDT [facility] [address] [place] [phone] John Gauthier, DPChristy [address] [place] [address] 05/17/2025 10:20 AM EST Office [facility] [address] [place] [phone] Hazel Molina MD [address] [place], [place] [phone] Health Maintenance Due Date Last Done Comments [...] II, MD, PHD at 04-Dec-2024 10:23:23 AM [facility] Procedure Note Brando Herrera MD - [...] signed by BRANDO HERRERA II, MD, PHD [id number] 10:23:23 AM [facility] us Hazel Molina MD IMG US [...] Performing Organization Information Site ID: QPT Name: [facility] Address: [address] [place] [address], [address] [place] [id number] Director: Ben Puente MD us Hazel Molina MD LAB URINE ORDERABLES Final Re sult [facility] * Cologuard?? colon cancer screening (03/16/2023 2:00 PM EDT) NONINV COLON CA DNA+OCC BLD SCRN STL-IMP Negative Negative 03/22/2023 6:13 PM EDT [facility] (CLIA #:[id number]) Comment: NEGATIVE TEST RESULT. A negative Cologuard [...] colonoscopy. (Denis Paul, N Engl J Med 2014;370(14):5838-7680) The normal value (reference range) for this assay is negative. COLOGUARD RE-SCREENING RECOMMENDATION: Periodic colorectal cancer screening is an important part of preventive healthcare for asymptomatic individuals at average risk for colorectal cancer. Following a negative Cologuard result, the [place] [employer] Society and U.S. Multi-Society Task Force screening guidelines recommend a Cologuard re-screening interval of 3 years. References: [place] [employer] Guideline for Colorectal Cancer Screening: https://www.cancer.org/cancer/jpplc-utkied-tgascs/sepkgjnek-nygufmgbr-zsfphbw/ac s-rec ommendations.html.; Bill DK, Best CR, El SantiagoK, Colorectal Cancer Screening: Recommendations for Physicians and Patients from the U.S. Multi-Society Task Force on Colorectal Cancer Screening , Am J Gastroenterology 2017; 112:6063-8148. TEST DESCRIPTION: Composite algorithmic analysis of stool [...] colonoscopy. (Denis Paul, N Engl J Med 2014;370(14):2703-6726.) Cologuard may produce a false negative or false positive result (no colorectal cancer or precancerous polyp present at colonoscopy follow up). A negative Cologuard test result does not guarantee the absence of CRC or advanced adenoma (pre-cancer). The current Cologuard screening interval is every 3 years. ([place] [employer] and U.S. Multi-Society Task Force). Cologuard performance data in a 10,000 patient pivotal study using colonoscopy as the reference method can be accessed at the following location: www.Perosphere.Anedot/results. Additional description of the Cologuard test process, warnings and precautions can be found at www.cologuard.com. Stool specimen (specimen) 03/16/2023 2:00 PM EDT 03/18/2023 7:06 PM EDT Kimberley Morgan DO LAB MOLECULAR DIAGNOSTICS ORDER PALOMA Final Result .[facility] (CLIA #:[id number]) [address] [place] [id number], [facility] (CLIA #:[id number]) [address] [place] [id number] * (ABNORMAL) Q - THINPREP(R) TIS AND [...] has been evaluated with computer assisted technology. ASSISTANT PRODUCER: BINDU CISNEROS(ASCP) For informational Purposes: All cytology specimens are processed and screened at [facility]. [address] [place] [id number], BINDU RODRIGUEZ(ASCP) For informational Purposes: All cytology specimens are processed and screened at [facility]. [address] [place] [address] HPV mRNA E6/E7 RFX HPV 16, 18/45 HPV mRNA E6E7 Detected REFERENCE RANGE: NOT DETECTED This test was performed using the APTIMA HPV Assay ([employer] This assay detects E6/E7 viral messenger RNA (mRNA) from 14 high-risk HPV types (16,18,31,33,35,39,45,51,52,56,58,59,66,68). For more information on the limitations of this test, visit: http://www.[employer]/testcenter/ testguide.action?dc=TS_HPV_HighRiskE6_E7_TMA HPV GENOTYPES 16,18/45 HPV 16 RNA TMA NOT DETECTED HPV 18/45 RNA TMA NOT DETECTED 09/09/2017 us Radha Pino MD [facility] Final Result [facility] from Last 3 Months or Most Recently Relevant to Health Maintenance Insurance [employer] MEDICARE Care Teams Drilling Field Specialist Relationship Specialty Start Date End Date Hazel Molina MD [address] [place], [place] [phone] PCP - General Family Medicine 10/28/23 Daphney Hubbard MD [address] [place], [place] [phone] PCP - Medical [facility] 07/05/2407/04
--- OUTSIDE RECORDS SUMMARY | 2025-03-01 10:52 | XMS_ITS | Encounter Summary ---
Author Organization [facility] Address [address] [place] [address] Care Team Providers Care Master At Arms Name Role Phone Kimberley Morgan DO Primary Care Provider [phone] Hazel Molina MD Primary Care Provider [phone] Daphney Hubbard MD Unavailable Encounter Details Date Type Department Care Team (Late st Contact Info) Description 01/26/2023 Abstract [facility] [address] [place] [address] Kimberley Morgan DO [address] [address] Social History Tobacco Use Types Packs/Day Years Used Date Smoking Tobacco: Every Day Cigarettes 0.5 40.7 Started: 07/05/1984 Alcohol Use Standard Drinks/Week Comments [...] 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 file N ot on file documented as of this encounter Plan of Treatment Upcoming Encounters Date Type Department Care Team (Late st Contact Info) Description 04/06/2025 11:15 AM EDT Office Visit [facility] [address] [place] [address] John Gauthier, DPM [address] [place] [address] 05/17/2025 10:20 AM EST [facility] [address] [facility] [place] [phone] Hazel Molina MD [address] [facility] [place] [address] documented as of this encounter Visit Diagnoses Not on filedocumented in this encounter Care Teams Master At Arms Relationship Specialty Start Date End Date Kimberley Morgan DO PCP - General Family Medicine 01/19/23 10/27/23 Hazel Molina MD [address] [facility] [place] [address] PCP - General Family Medicine 10/28/23 Daphney Hubbard MD [address] [facility] [place] [address] PCP - Medical [place] MA 07/05/2407/04 documented as of this encounter
--- OUTSIDE RECORDS SUMMARY | 2025-03-01 10:52 | XMS_ITS | Clinical Summary ---
Author Organization [employer] Address [id number] [address] [place] [address] Care Team Providers Care Lead Software Developer Name Role Phone Kimberley Morgan DO Primary [...] Take 1 tablet by mouth daily. Active xhxkghxc-kmvn-S A-calcium &mins (THERAGRAN-M) 9 mg iron-400 mcg tablet Take 1 tablet by mouth daily. Active vufus-yc-7-dha- uwj-xgkgilh-tod 1,[id number] mg capsule Take by mouth. Fish oil [...] 04/06/2019, 05/15/2016 Medical Devices Implanted Type Area Swimming Pool Servicer Device Identifier Shelf Expiration Date Model / Serial / Lot Incv/Swivelock 4.75 Use [id number] - Sna - [id number] Implanted:Qty: 1 on 06/05/2019 by Yovani Owusu DO at [facility] [place] Right: Shoulder Arthrex 11/01/2020 [id number] / [id number] / [id number] Insurance [employer] Care Teams Lead Software Developer Relationship Specialty Start Date End Date Kimberley Morgan DO PCP - General Family Medicine 5/25/21
--- OUTSIDE RECORDS SUMMARY | 2025-03-01 10:52 | XMS_ITS | Clinical Summary ---
Author Organization [facility] Address [address] [place] [address] Care Team Providers Care Recycling Assistant Name Role Phone Daphney Hubbard MD Primary Care Provider [phone] Allergies Active Allergy Reactions Criticality Noted Date [...] tabletIndications: Mixed hyperlipidemia,Cor onary artery disease involving [place] coronary artery of [place] heart without angina pectoris Take 1 tablet [...] not recommended Coronary artery disease invo lving [place] coronary artery of [place] heart without angina pectoris 02/10/2023 Overview (02/10/2023): [...] will add toprol today. Awaiting labs from [facility] for lipid profile and liver function [...] Type Department Care Team Description 01/11/2025 Telephone [place] [address] [place] [address] Rae Denney MA from Last [...] Description 04/10/2025 2:45 PM EDT Office Visit [facility] [address] [place] [address] Esteban Estrada MD [address] [place] [address] Health Maintenance Due Date Last [...] Health Maintenance Insurance [employer] Care Teams Recycling Assistant Relationship Specialty Start Date End Date Daphney Hubbard MD [address] [place] [address] PCP - General Family Medicine 05/04/24
--- OUTSIDE RECORDS SUMMARY | 2025-03-01 10:52 | XMS_ITS | Encounter Summary ---
Author Organization [employer] Address [id number] [address] [place] [address] Care Team Providers Care Motor Vehicles Supervisor Name Role Phone CathyGordonee Rinku BELLO Primary Care Provider Unavaila ble Encounter Details Date Type Department Care Team (Late st Contact Info) Description 06/06/2020 Telephone [facility] [address] [place] [address] Dennise Jernigan RN Social History Tobacco Use [...] fusion Date of surgery: 06/25/20 Surgery location: [facility] Type of anesthesia: not mentioned On a blood thinner?: no Indication? On an antiplatelet?: no Stent?Type? When placed? Their preference of how long to hold blood thinners/antiplatelet: History of CVA/TIA, DVT/PE? ATTN: Do they need any additional info faxed(such as office note, ekg, testing, Etc? Upon your return please address pre-op clearance th sl Dennise Jernigan RN 06/06/20 2745 * Telephone Encounter - Samson Baez DO - 06/06/2020 3:17 PM EST Low risk pt she is no blood thinner.. documented in this encounter Plan of Treatment Not on file documented as of this encounter Visit Diagnoses Not on filedocumented in this encounter Additional Health Concerns Infection Onset Date Last Indicated Resolved Time MRSA Comment:abdominal boil Infection converted via Fl[employer] from [employer] system information 01/18/2009 01/18/2009 02/28/2021 11:19 PM EDT COVID-19 Rule-Out 11/30/2020 11/30/2020 11/30/2020 9:28 PM EDT documented as of this encounter Care Teams Motor Vehicles Supervisor Relationship Specialty Start Date End Date Kimberley Morgan DO PCP - General Family Medicine 11/26/20 documented as of this encounter
--- OUTSIDE RECORDS SUMMARY | 2025-03-01 10:52 | XMS_ITS ---
Author Organization [facility] Address [address] [place] [address] Care Team Providers Care Leasing Specialist Name Role Phone Hazel Molina MD Primary Care Provider [phone] Daphney Hubbard MD Unavailable Diabetes Self-Management Education [...]
--- OUTSIDE RECORDS SUMMARY | 2025-03-01 10:52 | XMS_ITS | Encounter Summary ---
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 Not on file N ot on file documented as of this encounter Plan of Treatment Upcoming Encounters Date Type Department Care Team (Late st Contact Info) Description 04/06/2025 11:15 AM EDT [facility] [address] [place] [address] John Gauthier, DPM [address] [place] [address] 05/17/2025 10:20 AM EST Office Visit [facility] [address] [place] [address] Hazel Molina MD [address] [place], [place] [phone] documented as of this encounter Procedures Procedure [...] documented as of this encounter Care Teams House Shorer Relationship Specialty Start Date End Date Hazel Molina MD [address] [facility] [place], [place] [address] PCP - General Family Medicine 10/28/23 Daphney Hubbard MD [address] [place] [address] PCP - Medical [place] AMBER 07/05/2407/04 documented as of this encounter
--- OUTSIDE RECORDS SUMMARY | 2025-03-01 10:52 | XMS_ITS | Encounter Summary ---
Author Organization [facility] Address [address] [place] [address] Care Team Providers Care Sheet Finisher Name Role Phone Kimberley Morgan Primary Care Provider [phone] Hazel Molina MD Primary Care Provider [phone] Daphney Hubbard MD Unavailable Reason for Visit * Reason Comments Med Refill Encounter Details Date Type Department Care Team (Late st Contact Info) Description 05/11/2023 Refill [facility] [address] [place] [address] John Gauthier, DPChristy [address] [place], [place] [address] Onychomycosis Social History Tobacco Use Types Packs/Day [...] Industry 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 file N ot on file documented as of this encounter Plan of Treatment Upcoming Encounters Date Type Department Care Team (Late st Contact Info) Description 04/06/2025 11:15 AM EDT [facility] [address] [place] [address] John Gauthier, DPChristy [address] [place] [address] 05/17/2025 10:20 AM EST [facility] [address] [facility] [place] [address] Hazel Molina MD [address] [facility] [place] [address] documented as of this encounter Visit Diagnoses Diagnosis Onychomycosis Dermatophytosis of nail documented in this encounter Care Teams Sheet Finisher Relationship Specialty Start Date End Date CathyGordonluci DobbsDO PCP - General Family Medicine 01/19/23 10/27/23 Hazel Molina MD [address] [facility] [place] [address] PCP - General Family Medicine 10/28/23 Daphney Hubbard MD [address] [facility] [place] [address] PCP - Medical [place] MA 07/05/2407/04 documented as of this encounter
--- OUTSIDE RECORDS SUMMARY | 2025-03-01 10:52 | XMS_ITS | Clinical Summary ---
Author Organization [facility] Address [address] [facility], [address] [place] [address] Care Team Providers Care Schedule Checker Name Role Phone Unavailable Primary Care Provider [...] Take 1 capsule by mouth daily Active Minden-3 Fatty Acids (FISH OIL) 1200 MG CAPS [...] Problems Daughter x 2 Heart Attack Father [place] at age 52 Other Father acromegaly Diabetes [...] this topic Medical Devices Implanted Type Area Parimutuel Ticket Cashier Device Identifier Shelf Expiration Date Model / Serial / Lot Impl Peter Spine Reline Ti35 Mm 55 Mm Implanted:Qty: 1 on 06/25/2020 by Femi Rosario MD at [facility] Spine N/A: Spine Lumbar [employer]-PMM [id number] / / Graft Spnl [id number] Corticocancellous Lord Triad - [id number] Implanted:Qty: 1 on 05/09/2020 by Femi Rosario MD at [facility] N/A: Spine Cervical [employer] INC-WD 05/08/2024 [id number] / [id number] / Plate Spnl L28mm Antr Cerv 1 Lev Translational [place] Acp Implanted:Qty: 1 on 05/09/2020 by Femi Rosario MD at [facility] N/A: Spine Cervical [employer]-WD [id number] / / Screw Spnl L13mm Dia4mm Ant Cerv [place] Ang Compr [place] Acp Implanted:Qty: 4 on 05/09/2020 by Femi Rosario MD at [facility] N/A: Spine Cervical [employer]-WD [id number] / / Connector Spnl Crss Lo Prof Adj Reline-O 5.5 X 45-65 Mm Implanted:Qty: 1 on 06/25/2020 by Femi Rosario MD at [facility] N/A: Spine Lumbar [employer]-WD [id number] / / Screw Spnl Dia5.5mm Opn Tulip Roselyn Reline Implanted:Qty: 4 on 06/25/2020 by Femi Rosario MD at [facility] N/A: Spine Lumbar [employer]- [id number] / / Graft Bne Sub 30cc 1.7-10mm Canc Chip Morselized Frz Dry - [id number] Implanted:Qty: 1 on 06/25/2020 by Femi Rosario MD at [facility] N/A: Spine Lumbar [employer]- 02/27/2023 [id number] / [id number] / Graft Bne Sub 5ml Mtrx Cellular Osteocel + - [id number] Implanted:Qty: 1 on 06/25/2020 by Femi Rosario MD at [facility] N/A: Spine Lumbar [employer]- 06/13/2024 [id number] / [id number] / Spacer Spnl L [id number] 4deg Post Lum Intbdy Fus Lord Implanted:Qty: 2 on 06/25/2020 by Femi Rosario MD at [facility] N/A: Spine Lumbar [employer]-WD [id number] / / Screw Spnl L50mm Dia7.5mm Post Thoracolumbosacral Polyax 2s Implanted:Qty: 2 on 06/25/2020 by Femi Rosario MD at [facility] N/A: Spine Lumbar [employer]-WD [id number] / / Screw Spnl L55mm Od6mm 2s Polyax Reline O Implanted:Qty: 2 on 06/25/2020 by Femi Rosario MD at [facility] N/A: Spine Lumbar [employer]-WD [id number] / / Peter Spnl Lordtc 5.5x40 Mm Ti Reline-O Implanted:Qty: 1 on 06/25/2020 by Femi Rosario MD at [facility] N/A: Spine Lumbar [employer]-WD [id number] / / Clip Endoscp 235cm Resol 360 Order Uom Is Each - [id number] Implanted:Qty: 1 on 02/03/2024 by Nancy Durand MD at [facility] N/A: [facility] SCIENTIFIC-WD [id number] / / Insurance [employer] TIAGO Advance Directives * Full Code (Latest Code Status on File) Date Activated Date Inactivated Comments 06/25/2020 2:09 PM 06/27/2020 8:24 PM
--- OUTSIDE RECORDS SUMMARY | 2025-03-01 10:52 | XMS_ITS | Encounter Summary ---
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 on file N ot on file documented as of this encounter Plan of Treatment Upcoming Encounters Date Type Department Care Team (Late st Contact Info) Description 04/06/2025 11:15 AM EDT Office Visit [facility] [address] [place] [address] John Gauthier, DPM [address] [place] [address] 05/17/2025 10:20 AM EST [facility] [address] [facility] [place] [address] Hazel Molina MD [address] [facility] [place] [address] documented as of this encounter Visit Diagnoses Not on filedocumented in this encounter Care Teams Drop Hammer Operator Helper Relationship Specialty Start Date End Date Kimberley Morgan DO PCP - General Family Medicine 01/19/23 10/27/23 Hazel Molina MD [address] [facility] [place] [address] PCP - General Family Medicine 10/28/23 Daphney Hubbard MD [address] [facility] [place] [address] PCP - Medical [place] MA 07/05/2407/04 documented as of this encounter
--- OUTSIDE RECORDS SUMMARY | 2025-03-01 10:52 | XMS_ITS | Encounter Summary ---
Author Organization [facility] Address [address] [place] [address] Care Team Providers Care Dining Room Helper Name Role Phone Kimberley Morgan DO Primary Care Provider [phone] Daphney Hubbard MD Primary Care Provider [phone] Reason for Visit * Reason Comments Med Refill Encounter Details Date Type Department Care Team (Late st Contact Info) Description 07/30/2023 Refill [facility] Card[facility] [address] [place] [address] Elodia Kulkarni, LACING CUTTER [address] [facility] [place] [address] Mixed hyperlipidemia; Coronary artery disease involving [place] coronary artery of [place] heart without angina pectoris Social History Tobacco [...] Description 04/10/2025 2:45 PM EDT Office Visit [facility] [address] [place] [address] Esteban Estrada MD [address] [place] [address] documented as of this encounter Visit Diagnoses Diagnosis Mixed hyperlipidemia Coronary artery disease involving [place] coronary artery of [place]ht[place] heart without angina pectoris documented in this encounter Additional Health Concerns Assessment Noted Time PHQ-9 Depression Total Score: 12 023 1:26 PM EDT documented as of this encounter Care Teams Dining Room Helper Relationship Specialty Start Date End Date Kimberley Morgan DO [address] [facility] [place] [address] PCP - General 11/16/22 05/03/24 Daphney Hubbard MD [address] [facility] [address] [place], [place] [address] PCP - General Family Medicine 05/04/24 documented as of this encounter
--- OUTSIDE RECORDS SUMMARY | 2025-03-01 10:52 | XMS_ITS | Encounter Summary ---
Author Organization [facility] Address [address], [address] [place] [address] Care Team Providers Care Regional Marketing Manager Name Role Phone Mark Tomas MD Primary Care Provider Unav ailable Reason for Visit * Reason Comments Medication Refill Encounter Details Date Type Department Care Team (Late st Contact Info) Description 08/28/2019 Refill [facility] [address], [address] [place] [address] Femi Rosario MD Medication Refill Social History [...] unspecified documented in this encounter Care Teams Regional Marketing Manager Relationship Specialty Start Date End Date Mark Tomas MD PCP - General Family Medicine 04/12/20 09/12/23 documented as of this encounter
--- OUTSIDE RECORDS SUMMARY | 2025-03-01 10:52 | XMS_ITS | Encounter Summary ---
Author Organization [facility] Address [address], [address] [place] [address] Care Team Providers Care Dietitian Teacher Name Role Phone Mark Tomas MD Primary Care Provider Unav ailable Reason for Visit * Reason Comments Medication Refill Encounter Details Date Type Department Care Team (Late st Contact Info) Description 04/24/2019 [facility] [address], [address] [place] [address] Femi Rosario MD Medication Refill Social History [...] unspecified documented in this encounter Care Teams Dietitian Teacher Relationship Specialty Start Date End Date Mark Tomas MD PCP - General Family Medicine 04/12/20 09/12/23 documented as of this encounter
--- OUTSIDE RECORDS SUMMARY | 2025-03-01 11:01 | XMS_ITS | CCD ---
Author Organization [facility] Care Team Providers Care Boatwright Name Role Phone GENOVEVA, CRISTOBAL F Primary [...] Care Unavailable FELICIA, FEMI H. Referring Unavailable [place], Cristobal F Unavailable [phone] Edwige DO, Kimberley Leora Primary Care Provider [phone] Emmett Brunner Unavailable Letty Olson Unavailable Edwige [...] BEN Consulting Unavailable STOCK ., DR RACHEL aLyne Consulting Unavailable MISC, DR LOPEZ Primary Care [...] Primary Care Provider Daphney Hubbard MD Unavailable TIM CULVER Attending Unavailable DALE HUTCHISON Attending Unavailable TIM CULVER Attending Unavailable SOLITARIO GARCÍA Attending Unavailable ABRAHAN, JOHN Layne Attending Unavailable ALT, LUKAS Attending Unavailable CHRISTEN, HAZEL Attending Unavailable ABRAHAN, JOHN aLyne Attending Unavailable ALT, LUKAS Attending Unavailable ALT, LUKAS Attending Unavailable CHRISTEN, HAZEL Attending Unavailable HAZEL VELÁSQUEZ Referring Unavailable ABRAHAN, JOHN Layne Attending Unavailable CHRISTEN, HAZEL Attending Unavailable CHRISTEN, HAZEL Attending Unavailable Giedraitis , Andrius Laurent Attending Unavailable Giedraitis , Andrius Vytkatya Attending Unavailable Giedraitis MD, Andrius Vytautmarsha Attending Unavailable Giedraitis MD, Andrius Vytautmrasha Attending Unavailable Giedraitis , Andrius Vytautmarsha Attending Unavailable Allergies Allergy Classification Reported Allergen(s) Allergy Type Date of Onset Reaction(s) Facility (20 sources) Ibuprofen; Translations: [IBUPROFEN] Drug Allergy 0 Unknown, Diarrhea, GI intolerance [facility] (20 sources) traMADol; Translations: [TRAMADOL] Drug Allergy 9 Unknown, Nausea Only [facility] (1 source) Ibuprofen Drug Allergy [facility] (1 source) traMADol Drug Allergy 2 [facility] Medications Current Medications Medication Drug [...] (20 sources) HMG-CoA Reductase Inhibitor Start: 12-02-19 take 1 tablet by mouth in the [...] Vitamin D cholecalciferol (Vitamin D-3) 50 MCG (2000 UT) capsule Take by mouth. Active Comment [...] Active Start: 05-21-2021 take 1 tablet by th once daily, then take 1 tablet [...] Corticosteroid Start: Fluticasone Propionate (Flonase) 50 mcg/actuation [place],Suspension Active 1 SPRAY INTRANASAL Twice daily January [...] oral capsule (20 sources) Anti-epileptic Agent Start: 11-23-2024 Gabapentin 300 mg capsule Active MG PO November 23, 2024 12:00am ammonium lactate 120 mg/ml topical cream (17 sources) Start: 08-21-2024 End: 08-21-2025 ammonium lactate (Amlactin) 12 % cream Indications: Corns and callosities Apply topically Daily 140 g 3 08/21/2024 08/21/2025 Active lamoTRIgine 100 mg oral tablet (20 sources) Mood Stabilizer, Anti-epileptic Agent Start: 12-25-2024 lamoTRIgine (LaMICtal) 100 MG tablet 12/25/2024 Active Start: 12-02-2021 lamoTRIgine (L AMICTAL) 100 mg tablet Start: 01-07-2021 take 3 tablets [facility] Lamotrigine 100 mg Tablet Active [...] mg by mouth once daily as needed. metFORMIN hydrochloride 500 mg oral tablet (20 sources) Biguanide Start: End: take 1 tablet by mouth [...] oral tablet (20 sources) beta-Adrenergic Dc Start: metoprolol succinate XL (Toprol-XL) 50 MG 24 hr tablet 02/06/2025 Active Start: 11-23-2024 take 1 tablet by bautista th every twenty-four hours Metoprolol Succinate 50 mg tablet extended release 24 hr Active MG PO November 23, 2024 12:00am Start: 12-01-2022 End: 02-13-2025 take 1 tablet by mouth every twenty-four hours in the morning metoprolol succinate XL (Toprol-XL) 25 MG 24 hr tablet Take 25 mg by mouth in the morning. 12/01/2022 02/13/2025 Discontinued multivitamin with minerals (Cerovite) 18-400 mg-mcg tablet tablet (20 sources) take 1 tablet by mouth in the morning multivitamin with minerals (Cerovite) 18-400 mg-mcg tablet tablet Take 1 tablet by mouth in the morning. Active naloxone 0.4 mg in 10 mL sodium chloride syringe (1 source) Start: 06-09-20 24 24 hr nicotine 0.583 mg/hr transdermal system (20 sources) Cholinergic Nicotinic Agonist Start: 02-14-20 End: 03-15-20 apply 1 dose transdermal route every twenty-four hours nicotine (Nicoderm CQ) 14 MG/24HR patch Indications: Nicotine abuse Place 1 patch over 24 hours on the skin 1 (one) time each day at the same time 30 patch 02/13/2025 03/15/2025 Active Start: 10-28-2023 End: 02-13-2025 nicotine (Nicoderm, Step 1) 21 MG/24HR patch Indications: Smoking addiction Place 1 patch over 24 hours on the skin 1 (one) time each day at the same time 42 patch 10/28/2023 02/13/2025 Discontinued Almo-3 Fatty Acids (FISH OI L) 1200 MG CAPS (2 sources) Almo-3 Fatty Ac ids (FISH OIL) 1200 MG CAPS Take by mouth daily Active Almo-3 Fatty Ac ids (FISH OIL) 1200 MG CAPS Take by mouth daily 0 Active omeprazole 40 mg delayed release oral capsule (20 sources) Proton Pump Inhibitor Start: 01-07-2025 omeprazo le (PriLOSEC) [address] capsule 01/07/2025 Active Start: 09-04-2024 take 1 capsule by mo ut once daily Omeprazole 40 mg capsule,delayed release(DR/EC) Active 40 MG PO Daily September 04, 2024 1:00am Start: 03-30-2024 End: 02-13-2025 take 1 capsule by mouth before mealtime omeprazole (PriLOSEC) [address] capsule Indications: Gastroesophageal reflux disease without esophagitis Take 1 capsule (20 mg) by mouth in the morning. Take before meals. 90 capsule 08/08/2024 02/13/2025 Discontinued pregabalin 50 mg oral capsule (12 sources) [...] mg/ml pen injector (6 sources) Start: End: inject 0.25 mg by subcutaneous injection every [...] before meals. 120 tablet 08/08/2024 09/07/2024 Active Tirzepatide (Mounjaro) 2.5 MG/0.5ML solution auto-injector (2 sources) Start: 02-13-2025 End: 03-15-2025 inject 2.5 mg by subcutaneous injection every week Tirzepatide (Mounjaro) 2.5 MG/0.5ML solution auto-injector Indications: Type 2 diabetes mellitus without complication, without long-term current use of insulin (HCC) Inject 2.5 mg under the skin 1 (one) time per week 2 mL 02/13/2025 03/15/2025 Active Completed/Discontinued Medications Medication Drug Class(es) Dates [...] capsule (1 source) Provitamin D2 Compound Start: 021 End: ergocalciferol 50,000 unit capsule (VITAMIN D2, [...] 22, 2021 12:00am November 23, 2024 10:53am [id number]-7-dha-epa-joey spho-ast [id number] mg cap (4 sources) bmtqf-ow-4-dha-e pa-ph ospho-ast [id number] mg cap Take by mouth. 0 Active Comment on above: Take by mouth. loratadine 10 mg oral tablet (20 sources) Start: End: take 1 tablet by mouth [...] Comment on above: Take 1 tablet by [facility] once daily. 2 ml metoclopramide 5 [...] 3:38pm Start: 09-04-2024 take 1 capsule by [facility] once daily Omeprazole 20 mg capsule,delayed release(DR/EC) Active 20 MG PO Daily September 04, 2024 12:00am 2 ml ondansetron 2 mg/ml injection (1 source) Serotonin-3 Receptor Antagonist Start: 06-09-2024 End: 06-09-2024 4 mg, IntraVENous, ONCE PRN, 1 dose, Starting on Wed06/09/24 at 1010, Until Wed06/09/24 at 1022, Nausea, Pre-op (day of surgery) Ozempic, 0.25 or 0.5 MG/DOSE, 2 MG/3ML solution pen-injector (9 sources) Start: 11-18-2024 End: 02-13-2025 inject 0.5 mg by subcutaneous injection every week Ozempic, 0.25 or 0.5 MG/DOSE, 2 MG/3ML solution pen-injector Indications: Type 2 diabetes mellitus without complication, without long-term current use of insulin (HCC) DIAL AND INJECT UNDER THE SKIN 0.5 MG WEEKLY 3 mL 1 11/18/2024 02/13/2025 Discontinued Start: 11-18-2024 inject 0.5 mg by sub [...] MG WEEKLY 3 mL 1 11/18/2024 Active pantoprazole 40 mg delayed release oral tablet [...] above: Take 1 capsule by mo [facility] once daily. Problems Active Problems Problem [...] Coronary arteriosclerosis; Translations: [Atherosclerotic heart disease of [place] coronary artery with unspecified angina pectoris] Onset: 01-13-2023 02-11-2023 Chronic Deficiency and other anemia (1 source) Anemia in other chronic diseases classified elsewhere; Translations: [Anemia of chronic disease] Onset: 12-12-2021 Chronic Diabetes mellitus with complications (11 sources) Polyneuropathy due to type 2 diabetes mellitus; Translations: [Type 2 diabetes mellitus with diabetic polyneuropathy] Onset: 11-06-2024 07-25-2024 Chronic Diabetes mellitus without complication (9 sources) Type 2 diabetes mellitus without complication; [...] Onset: 02-15-2018 02-11-2023 Chronic Heart valve disorders (4 sources) Nonrheumatic mitral (valve) insufficiency; Translations: [Non-rheumatic mitral regurgitation ] Onset: 11-08-2024 Chronic Joint disorders and dislocations; trauma-related (20 sources) Derangement of right knee; Translations: [Unspecified internal derangement of right knee] Onset: 09-18-2020 01-19-2023 Chronic Mood disorders (20 sources) Bipolar I disorder; Translations: [Bipolar disorder, unspecified] Onset: 08-18-2017 01-19-2023 Chronic Mycoses (3 sources) Onychomycosis; Translations: [Tinea unguium] 07-25-2024 Episodic Nausea and vomiting (2 sources) Nausea and vomiting; Translations: [Nausea with vomiting, unspecified] 02-13-2025 Episodic Nutritional deficiencies (20 sources) Vitamin D deficiency; Translations: [Vitamin D deficiency, unspecified] Onset: 12-12-2021 Chronic Osteoarthritis (20 sources) Degenerative joint disease involving multiple joints; 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] Onset: 06-05-2021 Chronic Other aftercare (1 source) jail (current) use of anticoagulants; Translations: [PENITENTIARY CURRNT USE ANTICOAGULANTS] Onset: 10-19-2022 Episodic Other aftercare (2 sources) Long-term current use of benzodiazepine; Translations: [Other senior care (current) drug therapy] Onset: 02-13-2025 02-13-2025 Episodic Other and unspecified benign neoplasm (2 [...] 01-10-2020 01-19-2023 Chronic Other non-traumatic joint disorders (4 sources) Shoulder pain; Translations: [Pain in joint, shoulder region] Onset: 02-13-2025 02-13-2025 Episodic Other non-traumatic joint disorders (1 source) [...] UTERUS] Onset: 10-19-2022 Episodic Residual codes; unclassified (6 sources) Harmful pattern of use of nicotine; Translations: [Tobacco use] 11-07-2024 Episodic Residual codes; unclassified (2 sources) Amnesia; Translations: [Other amnesia] 02-13-2025 Episodic Retinal detachments; defects; vascular occlusion; and retinopathy (20 sources) Partial retinal artery occlusion; Translations: [Partial retinal artery occlusion, unspecified eye] Onset: 07-09-2016 02-11-2023 Chronic Spondylosis; intervertebral disc disorders; other back problems (20 sources) Degeneration of lumbar intervertebral disc; Translations: [Other intervertebral disc degeneration, lumbar region] Onset: 07-09-2016 Resolved: 10-14-2021 Chronic Spondylosis; intervertebral disc disorders; other back problems (20 sources) Chronic low back pain; Translations: [Lumbago with sciatica, left side] Onset: 07-09-2016 Resolved: 10-14-2021 Episodic Sprains and strains (2 sources) Strain of back muscle; Translations: [Strain of muscle, fascia and tendon of lower back, initial encounter] 09-22-2021 Episodic Substance-related disorders (20 sources) Nicotine dependence, cigarettes, uncomplicated; Translations: [Nicotine dependence, other tobacco product, uncomplicated] Onset: 06-18-2020 06-18-2020 Chronic Substance-related disorders (20 sources) Marijuana user; Translations: [Cannabis use, unspecified, uncomplicated] Onset: 02-11-2023 02-11-2023 Episodic Thyroid disorders (20 sources) Goiter; Translations: [Nontoxic [...] (20 sources) Drug therapy finding; Translations: [Other termite control technician (current) drug therapy] Onset: 3 02-11-2023 Episodic Other aftercare (20 sources) jail current use of non-steroidal anti-inflammatory drug; Translations: [terminal clerk (current) use of non-steroidal anti-inflammatories (NSAID)] Onset: 3 07-26-2023 Episodic Other aftercare (2 sources) terminal clerk (current) use of non-steroidal anti-inflammatories (NSAID); Translations: [terminal clerk (current) use of non-steroidal anti-inflammatories (nsaid)] Onset: 3 Episodic Other aftercare (2 sources) Patient encounter status; Translations: [Encounter for therapeutic drug level monitoring] Onset: 4 02-13-2025 Episodic Other bone disease and musculoskeletal deformities (20 sources) Osteopenia; Translations: [Other specified disorders of bone density and structure, unspecified site] Onset: 3 07-26-2023 Episodic Other bone disease and musculoskeletal deformities (2 sources) Other specified disorders of bone density and structure, unspecified site; Translations: [Other specified disorders of bone density and structure, unspecified site] Onset: 3 Episodic Other bone disease and musculoskeletal deformities (2 sources) Disorder of bone; Translations: [Other specified disorders of bone density and structure, unspecified site] Onset: 3 02-13-2025 Episodic Other connective tissue disease (20 sources) [...] knee, unspecified knee] Onset: 4 Episodic Other connective tissue disease (2 sources) Muscle pain; Translations: [Myalgia, other site] Onset: 4 02-13-2025 Episodic Other connective tissue disease (2 sources) Bursitis of knee; Translations: [Other bursitis of knee, unspecified knee] Onset: 4 02-13-2025 Episodic Other gastrointestinal disorders (20 sources) History of Sloan's esophagus; Translations: [Personal history of other diseases of the digestive system] Onset: 4 06-09-2024 Episodic Other gastrointestinal disorders (1 source) Flatulence; Translations: [Flatulence] Onset: 4 Episodic Other gastrointestinal disorders (1 source) Gas pain; Translations: [Gas pain] Onset: 4 Episodic Other gastrointestinal disorders (1 source) Eructation; Translations: [Eructation] Onset: 4 Episodic Other gastrointestinal disorders (2 sources) Burping; Translations: [Eructation] Onset: 4 02-13-2025 Episodic Other gastrointestinal disorders (2 sources) Passing flatus; Translations: [Flatulence] Onset: 4 02-13-2025 Episodic Other gastrointestinal disorders (2 sources) Abdominal wind pain; Translations: [Gas pain] Onset: 4 02-13-2025 Episodic Other hematologic conditions (1 source) Elevated [...] in unspecified joint] Onset: 4 Episodic Other non-traumatic joint disorders (2 sources) Joint pain; Translations: [Pain in unspecified joint] Onset: 4 02-13-2025 Episodic Other nutritional; endocrine; and metabolic disorders [...] [Cellulitis of face] Onset: 7 01-19-2023 Episodic Unclassified (1 source) Inappropriate sinus tachycardia, so stated; Translations: [Inappropriate sinus tachycardia, so stated] Onset: 5 Viral infection (20 sources) Herpes zoster without complication; Translations: [Zoster without complications] Onset: 7 01-19-2023 Episodic Results Test Name Value Interpretation Reference Range Facility Laboratory - Hematology and Cell countson 02-13-2025 HbA1c (Bld) [Mass fraction] 6.2 % [facility] No Panel Informationon 02-13 [facility] 36on 01-11-2025 36 Rae AMBER Denney Lon, Lyly Jeny, If you have a denial letter [...] during your recent visit on 11/08/2024 at [facility]. Don't forget that you can review your After-Visit Summary by navigating to the [email or web address][Visit Summaries] page. If you have any questions about the care you received, please don't hesitate to reply to this message at any time. Sincerely, Your Care Team Normal [facility] BI MAMMOGRAM SCREENING TOMOS YNTHESIS [...] II, MD, PHD at 04-Dec-2024 10:23:23 AM [facility] Normal Not Available 37on 11-08-2024 37 *Increase metoprolol to 50mg daily. You can take 2 tablets of your current prescription until this runs out then start the new prescription of 1 tablet, 50mg daily. *Follow-up in 3 months with a heart ultrasound prior. Normal [facility] Laboratory - Hematology and Cell countson 11-08-2024 HbA1c (Bld) [Mass fraction] 6.1 % [facility] No Panel Informationon 11-08 Interpretation and review of laboratory results Normal [facility] Office Visiton 11-08-2024 Follow-up visit [id number] Nikko Garcia 1970 F Date Provider Department Center 11/08/2024 TIM CORONEL Family History Problem Relation Age of Onset COPD Mother Heart failure Mother Coronary artery disease Father 56 Family Status - Relation Status Age at Mother Father Sister Alive Brother Alive Level of Service:89603 [place] OFFICE/OUTPATIENT ESTABLISHED MOD MDM 30 MIN Reason for Visit and Comments: Palpitations [320128] Normal [facility] Office Visiton 10-17-2024 Follow-up visit [id number] Nikko Garcia 1970 F Date Provider Department Center 10/17/2024 TIM CORONEL Family History Problem Relation Age of Onset COPD Mother Heart failure Mother Coronary artery disease Father 56 Family Status - Relation Status Age at Mother Father Sister Alive Brother Alive Level of Service:21989 [place] OFFICE/OUTPATIENT ESTABLISHED MOD MDM 30 MIN Reason for Visit and Comments: Palpitations [469548] Hypertension [592804] Coronary Artery Disease [187] Chest Pain [045653] [facility] Orders Onlyon 08-07-2024 Orders Only [id number] Nikko Garcia ynthia 1970 F Date Provider Department Center 08/07/2024 Amanda-JESSIE REID [facility] Family History Problem Relation Age of Onset COPD Mother Coronary artery disease Father 56 Family Status - Relation Status Age at Mother Alive Father [facility] Orders Onlyon 08-04-2024 Orders Only [id number] Nikko Garcia ynthia 1970 F Date Provider Department Center 08/04/2024 355Farzaneh-FRANKLIN AYA [facility] Family History Problem Relation Age of Onset COPD Mother Coronary artery disease Father 56 Family Status - Relation Status Age at Mother Alive Father [facility] 08-03-2024 36 Vertical Punch Operator called and wanted Dr. Rodriguez to clarify that the patient should be taking 3 pill a day instead of two [facility] 07-27-2024 36 [facility] Vertical Punch Operator fr reggie Julio called and wanted to know can you clarify on the directions of how you want the patient to take her Celebrex medication because there is two different direction on how to take the Celebrex medication when the medcation was sent the from time [facility] 07-27-2024 Refill [id number] Nikko Garcia ynthia 1970 F Date Provider Department Center 07/27/2024 OVIDIO SANTILLAN [facility] Family History Problem Relation Age of Onset COPD Mother Coronary artery disease Father 56 Family Status - Relation Status Age at Mother Alive Father [facility] 3607-04-2024 36 Last Visit: 01/25/24 No Upcoming Visit [facility] 07-04-2024 Refill [id number] Nikko Garcia ynthia 1970 F Date Provider Department Center 07/04/2024 Ilda-SOLITARIO GARCÍA [facility] Family History Problem Relation Age of Onset COPD Mother Coronary artery disease Father 56 Family Status - Relation Status Age at Mother Alive Father Reason for Visit and Comments: Med Refill [095569] Normal [facility] EGDon 06-09-2024 No dictation [facility] EGDOrdered By: User Epic on 06-09-2024 [facility] [employer] Work Phone: Surgical Pathology Reporton 06-09-2024 Surgical Pathology Report (NOTE) Path Number: [id number] -- Diagnosis -- DISTAL ESOPHAGUS, BIOPSY: -SQUAMOUS [...] 0.2 cm in aggregate. Entirely 1 cs. mj Piyush Lozano M.D./se:06/12/2024 Microscopic Description Microscopic examination performed. Processing Lab: [address] [address] Interpretation Performed at [id number] [place] [address] SURGICAL PATHOLOGY CONSULTATION Patient Name: LEXI GARCIA Med Rec: [id number] [facility] ANATOMIC PATHOLOGY [address] [facility] [place], [place] [address] [facility] Orders Onlyon 05-17-2024 Orders Only [id number] Nikko Garcia sreedhar 1970 F Date Provider Department Center 05/17/2024 3848-DALE HUTCHISON ALYSA Lorenzana Family History Problem Relation Age of Onset COPD Mother Coronary artery disease Father 56 Family Status - Relation Status Age at Mother Alive Father Normal [facility] Office Visiton 05-04-2024 Follow-up visit [id number] Jose,C sreedhar 1970 F Date Provider Department Center 05/04/2024 3848-DALE HUTCHISON [facility] Family History Problem Relation Age of Onset COPD Mother Coronary artery disease Father 56 Family Status - Relation Status Age at Mother Alive Father Level of Service:83241 [place] OFFICE/OUTPATIENT ESTABLISHED LOW MDM 20 MIN Normal [facility] Surgical Pathology Reporton 02-03-2024 Surgical Pathology Report (NOTE) Path Number: [id number] -- Diagnosis -- A. STOMACH, ANTRUM, BIOPSIES: [...] Description A-C. Microscopic examination performed. Processing Lab: [address] [address] Interpretation Performed at [address] [address] SURGICAL PATHOLOGY CONSULTATION Patient Name: LEXI GARCIA [facility] Rec: [id number] [facility] ANATOMIC PATHOLOGY [address] [place] [id number] Normal [facility] Follow-Upon 01-25-2024 Follow-Up [id number] Nikko Garcia sreedhar 1970 F Date Provider Department Center 01/25/2024 SOLITARIO ADAMS [facility] Family History Problem Relation Age of Onset COPD Mother Coronary artery disease Father 56 Family Status - Relation Status Age at Mother Alive Father Level of Service:34932 [place] OFFICE/OUTPATIENT ESTABLISHED LOW MDM 20 MIN (GC) Reason for Visit and Comments: Follow-up [063262] - 3 mth follow up Normal [facility] Celiac Disease Panelon 09-13 Gliadin Deam Pep IgA 1.9 U/mL Normal <7.0 [facility] Comment on above: Result Comment: CELIAC INTERPRETATION <7.0 Negative 7.0-10.0 Equivocal >10.0 Positive units: U/mL Performed By: #### C ELP #### [address] [address] Maintenance Equipment Operator: Talib Clements MD Gliadin Deam Pep IgG <0.4 Normal <7.[address] [place] [address] Comment on above: Result Comment: CELIAC INTERPRETATION <7.0 Negative 7.0-10.0 Equivocal >10.0 Positive units: U/mL Performed By: #### C ELP #### [address] [address] Maintenance Equipment Operator: Talib Clements MD Tiss Transglutam IgA 0.4 U/mL Normal <7.[address] [place] [address] Comment on above: Result Comment: CELIAC INTERPRETATION <7.0 Negative 7.0-10.0 Equivocal >10.0 Positive units: U/mL Performed By: #### C ELP #### [address] [place], [place] [id number] Maintenance Equipment Operator: Talib Clemetns MD IgA [Mass/Vol] 184 mg/dL Normal 70-400 [facility] Comment on above: Performed By: #### C ELP #### [address] [id number] Maintenance Equipment Operator: Talib Clements MD H. pylori Antigenon 09-14-19 24 H. pylori Antigen Specimen Description .FECES Direct Exam NEGATIVE Report Status FINAL 09/14/2023 Normal [facility] Comment on above: Performed By: #### F HPY #### [address] [id number] Maintenance Equipment Operator: Talib Clements MD [facility] [address] [place], [place] [address] [address] Maintenance Equipment Operator: David Hough MD CBC AUTO DIFFon 10-07-2022 BASO # 0.0 103/ul Normal 0.0-0.1 [facility] Comment on above: Performed By: #### C BC #### [facility] [address] [place] [address] Dr. Donna Cantrell Basophils/100 WBC (Bld) 0.5 % Normal 0.2-2.0 [facility] Comment on above: Performed By: #### C BC #### [facility] [address] [place] [address] Dr. Donna Cantrell EO # 0.0 103/ul Normal 0.0-0.7 [facility] Comment on above: Performed By: #### C BC #### [facility] [address] [address] [address] Donna Cantrell Eosinophils/100 WBC (Bld) 0.0 % Critically low 0.9-7.0 [facility] Comment on above: Performed By: #### C BC #### [facility] [address] [place] [address] Dr. Donna Cantrell Erythrocyte distribution width (RBC) [Ratio] 13.6 % Normal 11.0-15.0 [facility] Comment on above: Performed By: #### C BC #### [facility] [address] [place] [address] Dr. Donna Cantrell Hematocrit (Bld) [Volume fraction] 42.0 % Normal 36.0-48.0 [facility] Comment on above: Performed By: #### C BC #### [facility] [address] [place] [address] Dr. Donna Cantrell Hemoglobin (Bld) [Mass/Vol] 14.4 g/dL Normal 12.0-16.0 [facility] Comment on above: Performed By: #### C BC #### [facility] [address] [place] [address] Dr. Donna Cantrell IG # 0.06 10e3/ul Critically high 0.00-0.[address] [facility] Comment on above: Performed By: #### C BC #### [facility] [address] [place] [address] Dr. Donna Cantrell IG % 0.8 % Critically high 0.0-0.5 [facility] Comment on above: Performed By: #### C BC #### [facility] [address] [place] [address] Dr. Donna Cantrell LYMPH # 2.5 103/ul Normal 1.2-3.8 [facility] Comment on above: Performed By: #### C BC #### [facility] [address] [place] [address] Dr. Donna Cantrell Lymphocytes/100 WBC (Bld) 30.8 % Normal 20.5-60.0 [facility] Comment on above: Performed By: #### C BC #### [facility] [address] [place] [address] Dr. Donna Cantrell MANUAL DIFF REQ NO Normal [facility] Comment on above: Performed By: #### C BC #### [facility] [address] [place] [address] Dr. Donna Cantrell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 [address] Eosinophils (Bld) [#/Vol] 0.0 10*3/uL Normal 0.0-0.7 [facility] Comment on above: Order Comment: Dash baeza has been resched[place] [facility] [place] 06/26/2020 05:07 Reason: Failed attempt at venipuncture Performed By: #### C BCWD #### [facility] [address] [place] [address] Eosinophils/100 WBC (Bld) 0.0 % Normal [facility] Comment on above: Order Comment: Dash baeza has been rescheduled [place] [facility] [place] 06/26/2020 05:07 Reason: Failed attempt at venipuncture Performed By: #### C BCWD #### [facility] [address] [place] [address] Erythrocyte distribution width (RBC) [Ratio] 13.9 % Normal 11.5-14.5 [facility] Comment on above: Order Comment: Dash baeza has been rescheduled [place] [facility] [place] 06/26/2020 05:07 Reason: Failed attempt at venipuncture Performed By: #### C BCWD #### [facility] [address] [place] [address] Hematocrit (Bld) [Volume fraction] 39.4 % Normal 37.0-47.0 [facility] Comment on above: Order Comment: Dash baeza has been rescheduled [place] [facility] [place] 06/26/2020 05:07 Reason: Failed attempt at venipuncture Performed By: #### C BCWD #### [facility] [address] [place] [address] Hemoglobin (Bld) [Mass/Vol] 13.2 g/dL Normal 12.0-16.0 [facility] Comment on above: Order Comment: Dash baeza has been rescheduled [place] [facility] [place] 06/26/2020 05:07 Reason: Failed attempt at venipuncture Performed By: #### C BCWD #### [facility] [address] [place] [address] Lymphocytes (Bld) [#/Vol] 1.0 10*3/uL Normal 1.0-4.8 [facility] Comment on above: Order Comment: Dash baeza has been rescheduled [place] [facility] [place] 06/26/2020 05:07 Reason: Failed attempt at venipuncture Performed By: #### C BCWD #### [facility] [address] [place] [address] Lymphocytes/100 WBC (Bld) 6.4 % Normal [facility] Comment on above: Order Comment: Dash baeza has been rescheduled [place] [facility] [place] 06/26/2020 05:07 Reason: Failed attempt at venipuncture Performed By: #### C BCWD #### [facility] [address] [place] [address] MCH (RBC) [Entitic mass] 30.2 pg Normal 27.0-31.3 [facility] Comment on above: Order Comment: Dash baeza has been rescheduled [place] [facility] [place] 06/26/2020 05:07 Reason: Failed attempt at venipuncture Performed By: #### C BCWD #### [facility] [address] [place] [address] MCHC (RBC) [Mass/Vol] 33.4 % Normal 33.0-37.0 [facility] Comment on above: Order Comment: Dash baeza has been rescheduled [place] [facility] [place] 06/26/2020 05:07 Reason: Failed attempt at venipuncture Performed By: #### C BCWD #### [facility] [address] [facility] [place] [address] MCV (RBC) [Entitic vol] 90.3 fL Normal 82.0-100.0 [facility] Comment on above: Order Comment: Dash baeza has been rescheduled [place] [facility] [place] 06/26/2020 05:07 Reason: Failed attempt at venipuncture Performed By: #### C BCWD #### [facility] [address] [facility] [place] [address] Monocytes (Bld) [#/Vol] 1.1 10*3/uL Critically high 0.2-0.8 [facility] Comment on above: Order Comment: Dash baeza has been rescheduled by [facility] at 06/26/2020 05:07 Reason: Failed attempt at venipuncture Performed By: #### C BCWD #### [facility] [address] [place] [address] Monocytes/100 WBC (Bld) 6.9 % Normal [facility] Comment on above: Order Comment: Dash baeza has been [place]ched[place] [facility] [place] 06/26/2020 05:07 Reason: Failed attempt at venipuncture Performed By: #### C BCWD #### [facility] [address] [place] [address] Neutrophils (Bld) [#/Vol] 14.0 10*3/uL Critically high 1.4-6.5 [facility] Comment on above: Order Comment: Dash baeza has been rescheduled by [facility] at 06/26/2020 05:07 Reason: Failed attempt at venipuncture Performed By: #### C BCWD #### [facility] [address] [place] [address] Neutrophils/100 WBC (Bld) 86.5 % Normal [facility] Comment on above: Order Comment: Dash baeza has been rescheduled by [facility] at 06/26/2020 05:07 Reason: Failed attempt at venipuncture Performed By: #### C BCWD #### [facility] [address] [place] [address] Platelets (Bld) [#/Vol] 237 10*3/uL Normal 130-400 [facility] Comment on above: Order Comment: Dash baeza has been [place]ched[place] [facility] [place] 06/26/2020 05:07 Reason: Failed attempt at venipuncture Performed By: #### C BCWD #### [facility] [address] [place] [address] RBC (Bld) [#/Vol] 4.37 10*6/uL Normal 4.20-5.40 [facility] Comment on above: Order Comment: Dash baeza has been resched[place] [facility] [place] 06/26/2020 05:07 Reason: Failed attempt at venipuncture Performed By: #### C BCWD #### [facility] [address] [place] [address] WBC (Bld) [#/Vol] 16.1 10*3/uL Critically high 4.8-10.8 [facility] Comment on above: Order Comment: Dash baeza has been rescheduled by [facility] at 06/26/2020 05:07 Reason: Failed attempt at venipuncture Performed By: #### C BCWD #### [facility] [address] [place] [address] XR LUMBAR SPINE (2-3 VIEWS)o n 06-26-2020 [...] Maximiliano Rachel MD 06/26/20 Final result Normal [facility] Basic Metabolic Panel Reflex Mgon 06-25-2020 Anion gap [Moles/Vol] 10 mmol/L Normal 9-15 [facility] Comment on above: Performed By: #### B MPX #### [facility] [address] [place] [address] Calcium [Mass/Vol] 8.9 mg/dL Normal 8.5-9.9 [facility] Comment on above: Performed By: #### B MPX #### [facility] [address] [place] [address] Chloride [Moles/Vol] 102 mmol/L Normal 95-107 [facility] Comment on above: Performed By: #### B MPX #### [facility] [address] [place] [address] CO2 [Moles/Vol] 21 mmol/L Normal 20-31 [facility] Comment on above: Performed By: #### B MPX #### [facility] [address] [place] [address] Creatinine [Mass/Vol] 0.72 mg/dL Normal 0.50-0.90 [facility] Comment on above: Performed By: #### B MPX #### [facility] [address] [place] [address] GFR/1.73 sq M predicted among blacks MDRD (S/P/Bld) [Vol rate/Area] mL/min/{1.73_m2} Normal >60 [facility] Comment on above: Result Comment: >60 mL/min/1.73m2 EGFR, calc. for ages 18 and older using the MDRD formula (not corrected for weight), is valid for stable renal function. Performed By: #### B MPX #### [facility] [address] [place] [address] GFR/1.73 sq M.predicted MDRD (S/P/Bld) [Vol rate/Area] mL/min/{1.73_m2} Normal >60 [facility] Comment on above: Result Comment: >60 mL/min/1.73m2 EGFR, calc. for ages 18 and older using the MDRD formula (not corrected for weight), is valid for stable renal function. Performed By: #### B MPX #### [facility] [address] [place] [address] Glucose [Mass/Vol] 118 mg/dL Critically high 70-99 [facility] Comment on above: Performed By: #### B MPX #### [facility] [address] [place] [address] Potassium reflex Mg 4.6 mEq/L Normal 3.4-4.9 [facility] Comment on above: Performed By: #### B MPX #### [facility] [address] [place] [address] Sodium [Moles/Vol] 133 mmol/L Low 135-144 [facility] Comment on above: Performed By: #### B MPX #### [facility] [address] [place] [address] Urea nitrogen [Mass/Vol] 16 mg/dL Normal 6-20 [facility] Comment on above: Performed By: #### B MPX #### [facility] [address] [place] [address] CBC With Platelet No Differe ntialon 06-25-2020 Erythrocyte distribution width (RBC) [Ratio] 14.3 % Normal 11.5-14.5 [facility] Comment on above: Performed By: #### C BCND #### [facility] [address] [place] [address] Hematocrit (Bld) [Volume fraction] 39.4 % Normal 37.0-47.0 [facility] Comment on above: Performed By: #### C BCND #### [facility] [address] [place] [address] Hemoglobin (Bld) [Mass/Vol] 12.9 g/dL Normal 12.0-16.0 [facility] Comment on above: Performed By: #### C BCND #### [facility] [address] [place] [address] MCH (RBC) [Entitic mass] 30.4 pg Normal 27.0-31.3 [facility] Comment on above: Performed By: #### C BCND #### [facility] [address] [place] [address] MCHC (RBC) [Mass/Vol] 32.8 % Low 33.0-37.0 [facility] Comment on above: Performed By: #### C BCND #### [facility] [address] [place] [address] MCV (RBC) [Entitic vol] 92.7 fL Normal 82.0-100.0 [facility] Comment on above: Performed By: #### C BCND #### [facility] [address] [place] [address] Platelets (Bld) [#/Vol] 213 10*3/uL Normal 130-400 [facility] Comment on above: Performed By: #### C BCND #### [facility] [address] [place] [address] RBC (Bld) [#/Vol] 4.25 10*6/uL Normal 4.20-5.40 [facility] Comment on above: Performed By: #### C BCND #### [facility] [address] [place] [address] WBC (Bld) [#/Vol] 12.0 10*3/uL Critically high 4.8-10.8 [facility] Comment on above: Performed By: #### C BCND #### [facility] [address] [place] [address] FLUORO FOR SURGICAL PROCEDUR ESon 06-25-2020 FLUORO [...] Maximiliano Rachel MD 06/26/20 Final result Normal [facility] Surgical Specimenon 06-25-20 20 Surgical Specimen [facility] [address] [place], [place] [id number] FINAL SURGICAL PATHOLOGY REPORT Patient Name: LEXI GARCIA Accession No: [id number] Age Sex: 1970 Location: [facility] [id number] Account No: [id number] Collected: 06/25/2020 Med Rec No: [id number] Received: 06/25/2020 Attend Phys: FEMI DUARTE Completed: [...] in one cassette after decalcification. LAURO CPT: 88286 X1 47062 X1 ANABELLA LEWIS M.D. 06/26/2020 Electronically signed out by Page 1 of 1 [facility] Comment on above: Performed By: #### S UR ####[facility] [place] [id number] COVID-19, NAAon 06-20-2020 COVID-19, BELLE Not Detected Normal Not Detect [facility] Comment on above: Result Comment: This nucleic acid amplification test was developed and its performance characteristics determined by [employer]. Nucleic acid amplification tests include PCR and [...] detected) result in this assay. Performed at: [facility] [address] [facility], [place], [place] [id number] Maintenance Equipment Operator: Altagracia Quiñonez MD, Phone: [phone] Performed By: #### I RCOV #### [facility] [address] [place] [address] Basic Metabolic Panelon 06-04 Anion gap [Moles/Vol] 11 mmol/L Normal 9-15 [facility] Comment on above: Performed By: #### B MP #### [facility] [address] [place] [address] Calcium [Mass/Vol] 9.0 mg/dL Normal 8.5-9.9 [facility] Comment on above: Performed By: #### B MP #### [facility] [address] [place] [address] Chloride [Moles/Vol] 106 mmol/L Normal 95-107 [facility] Comment on above: Performed By: #### B MP #### [facility] [address] [place] [address] CO2 [Moles/Vol] 23 mmol/L Normal 20-31 [facility] Comment on above: Performed By: #### B MP #### [facility] [address] [place] [address] Creatinine [Mass/Vol] 0.76 mg/dL Normal 0.50-0.90 [facility] Comment on above: Performed By: #### B MP #### [facility] [address] [place] [address] GFR/1.73 sq M predicted among blacks MDRD (S/P/Bld) [Vol rate/Area] mL/min/{1.73_m2} Normal >60 [facility] Comment on above: Result Comment: >60 mL/min/1.73m2 EGFR, calc. for ages 18 and older using the MDRD formula (not corrected for weight), is valid for stable renal function. Performed By: #### B MP #### [facility] [address] [place] [address] GFR/1.73 sq M.predicted MDRD (S/P/Bld) [Vol rate/Area] mL/min/{1.73_m2} Normal >60 [facility] Comment on above: Result Comment: >60 mL/min/1.73m2 EGFR, calc. for ages 18 and older using the MDRD formula (not corrected for weight), is valid for stable renal function. Performed By: #### B MP #### [facility] [address] [place] [address] Glucose [Mass/Vol] 87 mg/dL Normal 70-99 [facility] Comment on above: Performed By: #### B MP #### [facility] [address] [place] [address] Potassium [Moles/Vol] 3.8 mmol/L Normal 3.4-4.9 [facility] Comment on above: Performed By: #### B MP #### [facility] [address] [place] [address] Sodium [Moles/Vol] 140 mmol/L Normal 135-144 [facility] Comment on above: Performed By: #### B MP #### [facility] [address] [place] [address] Urea nitrogen [Mass/Vol] 20 mg/dL Normal 6-20 [facility] Comment on above: Performed By: #### B MP #### [facility] [address] [place] [address] CBC With Platelet No Differe ntialon 06-18-2020 Erythrocyte distribution width (RBC) [Ratio] 14.2 % Normal 11.5-14.5 [facility] Comment on above: Performed By: #### C BCND #### [facility] [address] [place] [address] Hematocrit (Bld) [Volume fraction] 41.5 % Normal 37.0-47.0 [facility] Comment on above: Performed By: #### C BCND #### [facility] [address] [place] [address] Hemoglobin (Bld) [Mass/Vol] 14.3 g/dL Normal 12.0-16.0 [facility] Comment on above: Performed By: #### C BCND #### [facility] [address] [place] [address] MCH (RBC) [Entitic mass] 31.4 pg Critically high 27.0-31.3 [facility] Comment on above: Performed By: #### C BCND #### [facility] [address] [place] [address] MCHC (RBC) [Mass/Vol] 34.5 % Normal 33.0-37.0 [facility] Comment on above: Performed By: #### C BCND #### [facility] [address] [place] [address] MCV (RBC) [Entitic vol] 91.2 fL Normal 82.0-100.0 [facility] Comment on above: Performed By: #### C BCND #### [facility] [address] [place] [address] Platelets (Bld) [#/Vol] 241 10*3/uL Normal 130-400 [facility] Comment on above: Performed By: #### C BCND #### [facility] [address] [place] [address] RBC (Bld) [#/Vol] 4.55 10*6/uL Normal 4.20-5.40 [facility] Comment on above: Performed By: #### C BCND #### [facility] [address] [place] [address] WBC (Bld) [#/Vol] 9.7 10*3/uL Normal 4.8-10.8 [facility] Comment on above: Performed By: #### C BCND #### [facility] [address] [place] [address] COVID-19, NAAon 06-18-2020 Source Swab EXTRACTION OPERATOR swab Normal [facility] Comment on above: Performed By: #### I RCOV #### [facility] [address] [place] [address] Prothrombin Timeon 0 INR Coag (PPP) [Relative time] 1.0 {INR} Normal [facility] Comment on above: Performed By: #### P T ####[facility] [place] [phone] PT Coag (PPP) [Time] 13.1 s Normal 12.3-14.9 [facility] Comment on above: Performed By: #### P T ####[facility] [place] [phone] Type and Screen Capture 3 sc rn cellon 06-18-2020 Type and Screen Capture 3 scrn cell PATIENT: JOSE Doss LOC: [facility] BILL# : [id number] : 1970 SEX: F ORDERED BY: TEENA Lowe ORDERED : 06/18/2020 15:07 COLLECTED: 06/18/2020 15:36 ORDER : [id number] RECEIVED : 06/18/2020 15:36 Second, confirmatory specimen needed to satisfy Group O policy. TEST NAME RESULT UNITS RANGES ABN FL ST ABORH Capture O POS F Antibody 3 Cell Scrn Captu NEG F Normal [facility] Comment on above: Performed By: #### T S3C #### [facility] [address] [place] [address] XR SPINE ENTIRE (2-3 VIEWS)o n 06-18-2020 [...] Ash Horta MD 06/19/20 Final result Normal [facility] FLUORO FOR SURGICAL PROCEDUR ESon 05-09-2020 [...] Maximiliano Rachel MD 05/09/20 Final result Normal [facility] COVID-19, NAAon 05-05-2020 COVID-19, BELLE Not Detected Normal Not Detect [facility] Comment on above: Result Comment: This nucleic acid amplification test was developed and its performance characteristics determined by [employer]. Nucleic acid amplification tests include PCR and [...] detected) result in this assay. Performed at: [facility] [employer] [facility], [place] [id number] Maintenance Equipment Operator: Altagracia Quiñonez MD, Phone: [phone] Performed By: #### I RCOV ####[facility] [place] [phone] Basic Metabolic Panelon 10-3 0-2020 Anion gap [Moles/Vol] 12 mmol/L Normal 9-15 [facility] Comment on above: Performed By: #### B MP #### [facility] [address] [place] [address] Calcium [Mass/Vol] 10.5 mg/dL Critically high 8.5-9.9 [facility] Comment on above: Performed By: #### B MP #### [facility] [address] [place] [address] Chloride [Moles/Vol] 98 mmol/L Normal 95-107 [facility] Comment on above: Performed By: #### B MP #### [facility] [address] [place] [address] CO2 [Moles/Vol] 27 mmol/L Normal 20-31 [facility] Comment on above: Performed By: #### B MP #### [facility] [address] [place] [address] Creatinine [Mass/Vol] 0.82 mg/dL Normal 0.50-0.90 [facility] Comment on above: Performed By: #### B MP #### [facility] [address] [place] [address] GFR/1.73 sq M predicted among blacks MDRD (S/P/Bld) [Vol rate/Area] mL/min/{1.73_m2} Normal >60 [facility] Comment on above: Result Comment: >60 mL/min/1.73m2 EGFR, calc. for ages 18 and older using the MDRD formula (not corrected for weight), is valid for stable renal function. Performed By: #### B MP #### [facility] [address] [place] [address] GFR/1.73 sq M.predicted MDRD (S/P/Bld) [Vol rate/Area] mL/min/{1.73_m2} Normal >60 [facility] Comment on above: Result Comment: >60 mL/min/1.73m2 EGFR, calc. for ages 18 and older using the MDRD formula (not corrected for weight), is valid for stable renal function. Performed By: #### B MP #### [facility] [address] [place] [address] Glucose [Mass/Vol] 84 mg/dL Normal 70-99 [facility] Comment on above: Performed By: #### B MP #### [facility] [address] [place] [address] Potassium [Moles/Vol] 4.6 mmol/L Normal 3.4-4.9 [facility] Comment on above: Performed By: #### B MP #### [facility] [address] [place] [address] Sodium [Moles/Vol] 137 mmol/L Normal 135-144 [facility] Comment on above: Performed By: #### B MP #### [facility] [address] [place] [address] Urea nitrogen [Mass/Vol] 31 mg/dL Critically high 6-20 [facility] Comment on above: Performed By: #### B MP #### [facility] [address] [place] [address] CBC With Platelet No Differe ntialon 05-03-2020 Erythrocyte distribution width (RBC) [Ratio] 14.3 % Normal 11.5-14.5 [facility] Comment on above: Performed By: #### C BCND #### [facility] [address] [place] [address] Hematocrit (Bld) [Volume fraction] 41.3 % Normal 37.0-47.0 [facility] Comment on above: Performed By: #### C BCND #### [facility] [address] [place] [address] Hemoglobin (Bld) [Mass/Vol] 13.6 g/dL Normal 12.0-16.0 [facility] Comment on above: Performed By: #### C BCND #### [facility] [address] [place] [address] MCH (RBC) [Entitic mass] 30.7 pg Normal 27.0-31.3 [facility] Comment on above: Performed By: #### C BCND #### [facility] [address] [place] [address] MCHC (RBC) [Mass/Vol] 33.0 % Normal 33.0-37.0 [facility] Comment on above: Performed By: #### C BCND #### [facility] [address] [place] [address] MCV (RBC) [Entitic vol] 92.9 fL Normal 82.0-100.0 [facility] Comment on above: Performed By: #### C BCND #### [facility] [address] [place] [address] Platelets (Bld) [#/Vol] 241 10*3/uL Normal 130-400 [facility] Comment on above: Performed By: #### C BCND #### [facility] [address] [place] [address] RBC (Bld) [#/Vol] 4.44 10*6/uL Normal 4.20-5.40 [facility] Comment on above: Performed By: #### C BCND #### [facility] [address] [place] [address] WBC (Bld) [#/Vol] 11.0 10*3/uL Critically high 4.8-10.8 [facility] Comment on above: Performed By: #### C BCND #### [facility] [address] [place] [address] COVID-19, NAAon 05-03-2020 Source Swab Anterior nares Normal [facility] Comment on above: Performed By: #### I RCOV ####[facility] [place] [phone] Partial Thromboplastin Timeo n 05-03-2020 aPTT Coag (Bld) [Time] 31.3 s Normal 24.4-36.8 [facility] Comment on above: Performed By: #### P TT #### [facility] [address] [place] [address] Prothrombin Timeon 0 INR Coag (PPP) [Relative time] 0.9 {INR} Normal [facility] Comment on above: Performed By: #### P T #### [facility] [address] [place] [address] PT Coag (PPP) [Time] 11.9 s Low 12.3-14.9 [facility] Comment on above: Performed By: #### P T #### [facility] [address] [place] [address] Type and Screen Capture 3 sc rn cellon 05-03-2020 Type and Screen Capture 3 scrn cell PATIENT: JOSE Doss LOC: [facility] BILL# : [id number] : [id number] SEX: F ORDERED BY: STEPHANIE Harrison ORDERED : 05/03/2020 14:14 COLLECTED: 05/03/2020 14:14 ORDER : [id number] RECEIVED : 05/03/2020 19:43 TEST NAME RESULT UNITS RANGES ABN FL ST ABORH Capture O POS F Antibody 3 Cell Scrn Captu NEG F Normal [facility] Comment on above: Performed By: #### T S3C #### [facility] [address] [place] [address] Established Visit (Orthopaed ic Surgery)on 04-26-2020 Established [...] biceps. No pain with resisted elbow flexion. Income Tax Preparer strength 5/5 Elbow flexion 5/5. Shoulder abduction [...] Chiara Espinosa PA-C Department of Orthopaedic Surgery [facility] Dictation performed with the use [...] scans evaluated by the musculoskeletal radiologist at [facility] I will call the patient [...] her light touch sensation is grossly intact. Income Tax Preparer strength is 5/5 elbow flexion 5/5 shoulder [...] Time Vital Sign Value Performing Clinician Facility 02-13-2025 14:48-0400 Body height 162.6 cm Hazel Velásquez MD Work Phone: [facility] 02-13-2025 14:48-0400 Body mass index (BMI) [Ratio] 33.44 kg/m2 Hazel Velásquez MD Work Phone: [facility] 02-13-2025 14:48-0400 Body weight 88.36 kg Hazel Velásquez MD Work Phone: [facility] 02-13-2025 14:48-0400 Diastolic blood pressure 80 mm[Hg] Hazel Velásquez MD Work Phone: [facility] 02-13-2025 14:48-0400 Heart rate 85 /min Hazel Velásquez MD Work Phone: [facility] 02-13-2025 14:48-0400 SaO2% (BldA) [Mass fraction] 96 % Hazel Velásquez MD Work Phone: [facility] 02-13-2025 14:48-0400 Systolic blood pressure 122 mm[Hg] Hazel Velásquez MD Work Phone: [facility] 01-03-2025 15:54-0400 Body height 162.6 cm Jonh Gauthier DPM Work Phone: [facility] 01-03-2025 15:54-0400 Body mass index (BMI) [Ratio] 34.16 kg/m2 John Gauthier DPM Work Phone: [facility] 01-03-2025 15:54-0400 Body weight 90.27 kg John Gauthier DPM Work Phone: [facility] 11-23-2024 10:50-0400 Body height 162.56 cm [facility] 11-23-2024 10:50-0400 Body mass index (BMI) [Ratio] 33.7 kg/m2 [facility] 11-23-2024 10:50-0400 Body weight 89.35 kg [facility] 11-23-2024 10:50-0400 Diastolic blood pressure 74 mm[Hg] [facility] 11-23-2024 10:50-0400 Heart rate 80 /min [facility] 11-23-2024 10:50-0400 Systolic blood pressure 108 mm[Hg] [facility] 11-07-2024 09:53-0400 Body height 162.6 cm Hazel Velásquez MD Work Phone: [facility] 11-07-2024 09:53-0400 Body mass index (BMI) [Ratio] 34.16 kg/m2 Hazel Velásquez MD Work Phone: [facility] 11-07-2024 09:53-0400 Body weight 90.27 kg Hazel Velásquez MD Work Phone: [facility] 11-07-2024 09:53-0400 Diastolic blood pressure 64 mm[Hg] Hazel Velásquez MD Work Phone: [facility] 11-07-2024 09:53-0400 Heart rate 91 /min Hazel Velásquez MD Work Phone: [facility] 11-07-2024 09:53-0400 SaO2% (BldA) [Mass fraction] 97 % Hazel Velásquez MD Work Phone: [facility] 11-07-2024 09:53-0400 Systolic blood pressure 118 mm[Hg] Hazel Velásquez MD Work Phone: [facility] 09-04-2024 14:03-0500 Body height 162.56 cm [facility] 09-04-2024 14:03-0500 Body mass index (BMI) [Ratio] 34.3 kg/m2 [facility] 09-04-2024 14:03-0500 Body weight 90.8 kg [facility] 08-21-2024 15:18-0500 Body height 162.6 cm John Gauthier DPM Work Phone: [facility] 08-21-2024 15:18-0500 Body mass index (BMI) [Ratio] 36.56 kg/m2 John Gauthier DPM Work Phone: [facility] 08-21-2024 15:18-0500 Body weight 96.62 kg John Gauthier DPM Work Phone: [facility] 08-08-2024 09:27-0500 Body height 162.6 cm Hazel Velásquez MD Work Phone: [facility] 08-08-2024 09:27-0500 Body mass index (BMI) [Ratio] 36.63 kg/m2 Hazel Velásquez MD Work Phone: [facility] 08-08-2024 09:27-0500 Body weight 96.8 kg Hazel Velásquez MD Work Phone: [facility] 08-08-2024 09:27-0500 Diastolic blood pressure 68 mm[Hg] Hazel Velásquez MD Work Phone: [facility] 08-08-2024 09:27-0500 Heart rate 93 /min Hazel Velásquez MD Work Phone: [facility] 08-08-2024 09:27-0500 SaO2% (BldA) [Mass fraction] 95 % Hazel Velásquez MD Work Phone: [facility] 08-08-2024 09:27-0500 Systolic blood pressure 112 mm[Hg] Hazel Velásquez MD Work Phone: [facility] 07-25-2024 10:00-0500 Body height 162.6 cm John Gauthier DPM Work Phone: [facility] 07-25-2024 10:00-0500 Body mass index (BMI) [Ratio] 37.25 kg/m2 John Gauthier DPM Work Phone: [facility] 07-25-2024 10:00-0500 Body weight 98.43 kg John Abrahan DEWEY Work Phone: [facility] 07-06-2024 11:23-0500 Body height 162.6 cm Hazel Velásquez MD Work Phone: [facility] 07-06-2024 11:23-0500 Body mass index (BMI) [Ratio] 37.28 kg/m2 Hazel Velásquez MD Work Phone: [facility] 07-06-2024 11:23-0500 Body weight 98.52 kg Hazel Velásquez MD Work Phone: [facility] 07-06-2024 11:23-0500 Diastolic blood pressure 82 mm[Hg] Hazel Velásquez MD Work Phone: [facility] 07-06-2024 11:23-0500 Heart rate 82 /min Hazel Velásquez MD Work Phone: [facility] 07-06-2024 11:23-0500 SaO2% (BldA) [Mass fraction] 96 % Hazel Velásquez MD Work Phone: [facility] 07-06-2024 11:23-0500 Systolic blood pressure 126 mm[Hg] Hazel Velásquez MD Work Phone: [facility] 06-09-2024 11:15-0500 Diastolic blood pressure 93 mm[Hg] Maximiliano You MD Work Phone: [facility] 06-09-2024 11:15-0500 Heart rate 90 /min Maximiliano You MD Work Phone: [facility] 06-09-2024 11:15-0500 Respiratory rate 20 /min Maximiliano You MD Work Phone: [facility] 06-09-2024 11:15-0500 SaO2% (BldA) [Mass fraction] 95 % Maximiliano You MD Work Phone: [facility] 06-09-2024 11:15-0500 Systolic blood pressure 151 mm[Hg] Maximiliano You MD Work Phone: [facility] 06-09-2024 10:45-0500 Body temperature 96.91 [degF] Maximiliano You MD Work Phone: [facility] 06-09-2024 09:48-0500 Body height 162.6 cm Maximiliano You MD Work Phone: [facility] 06-09-2024 09:48-0500 Body mass index (BMI) [Ratio] 37.25 kg/m2 Maximiliano You MD Work Phone: [facility] 06-09-2024 09:48-0500 Body weight 98.43 kg Maximiliano You MD Work Phone: [facility] 12-12-2021 10:43-0400 Body weight 97.52 kg Gayle Washington MD Work Phone: [facility] 12-12-2021 10:43-0400 Diastolic blood pressure 87 mm[Hg] Gayle Washington MD Work Phone: [facility] 12-12-2021 10:43-0400 Heart rate 88 /min Gayle Washington MD Work Phone: [facility] 12-12-2021 10:43-0400 Systolic blood pressure 125 mm[Hg] Gayle Washington MD Work Phone: [facility] 10-14-2021 10:30-0400 Diastolic blood pressure 80 mm[Hg] Emmett Brunner Other [employer] Other 10-14-2021 10:30-0400 SaO2% (BldA) [Mass fraction] 98 % Emmett Brunner Other [facility] Other 10-14-2021 10:30-0400 Systolic blood pressure 130 mm[Hg] Emmettarmani Brunner Other [facility] Other 07-01-2021 15:30-0500 Body weight 94.62 kg Letty Wesley Other [facility] Other 07-01-2021 15:30-0500 Diastolic blood pressure 78 mm[Hg] Letty Wesley Other [facility] Other 07-01-2021 15:30-0500 Respiratory rate 18 /min Letty Wesley Other [facility] Other 07-01-2021 15:30-0500 SaO2% (BldA) [Mass fraction] 98 % Letty Wesley Other [facility] Other 07-01-2021 15:30-0500 Systolic blood pressure 118 mm[Hg] Letty Wesley Other [facility] Other 06-18-2021 15:45-0500 Diastolic blood pressure 90 mm[Hg] Emmett Brunner Other [facility] Other 06-18-2021 15:45-0500 SaO2% (BldA) [Mass fraction] 97 % Emmett Brunner Other [facility] Other 06-18-2021 15:45-0500 Systolic blood pressure 122 mm[Hg] Emmett Brunner Other [facility] Other 05-15-2021 17:30-0500 Body weight 92.53 kg Emmett Brunner Other [facility] Other 05-15-2021 17:30-0500 Diastolic blood pressure 80 mm[Hg] Emmett Brunner Other [facility] Other 05-15-2021 17:30-0500 Systolic blood pressure 130 mm[Hg] Emmett Brunner Other [facility] Other 04-02-2021 14:30-0400 Body weight 92.63 kg Emmett Brunner Other [facility] Other 04-02-2021 14:30-0400 Diastolic blood pressure 88 mm[Hg] Emmett Brunner Other [facility] Other 04-02-2021 14:30-0400 SaO2% (BldA) [Mass fraction] 98 % Emmett Brunner Other [facility] Other 04-02-2021 14:30-0400 Systolic blood pressure 140 mm[Hg] Emmett Brunenr Other [employer] Other Encounters Encounter Date Encounter Type Care Provider Facility Start: 02-19-2025 End: 02-19-2025 ambulatory Rosibel Cotton MD Facility:[facility] Start: 02-13-2025 End: 02-13-2025 ambulatory HAZEL VELÁSQUEZ Not Available Start: 02-13-2025 End: 02-13-2025 Office outpatient visit 25 minutes Hazel Velásquez MD Work Phone: [facility] Comment on above: Nicotine abuse (Prim steffanie Dx); Type 2 diabetes mellitus without complication, without long-term current use of insulin (HCC); Nausea and vomiting, unspecified vomiting type; Memory loss; Marijuana smoker Start: 02-13-2025 End: 02-13-2025 Bamboo flowsheet Hazel Velásquez MD Work Phone: [facility] Start: 02-13-2025 End: 02-13-2025 Bamboo flowsheet Hazel Velásquez MD Work Phone: [facility] Start: 02-13-2025 Patient encounter status Lisa Velásquez MD Work Phone: [facility] Start: 01-03-2025 End: 01-03-2025 Office outpatient visit 15 minutes John Gauthier DPM Work Phone: [facility] Comment on above: Onychomycosis (Prima ry Dx); Onychodystrophy; Corns and callosities; Diabetic polyneuropathy associated with type 2 diabetes mellitus (HCC); Ingrown toenail; Pain in both feet Start: 01-03-2025 End: 01-03-2025 ambulatory JOHN GAUTHIER Not Available Start: 01-03-2025 End: 01-03-2025 Bamboo flowsheet John Gauthier DPM Work Phone: [facility] Start: 01-03-2025 End: 01-03-2025 Bamboo flowsheet John Gauthier DPM Work Phone: [facility] Start: 12-04-2024 End: 12-04-2024 Follow-up encounter Hazel Velásquez MD Work Phone: [facility] Start: 12-01-2024 End: 12-01-2024 Follow-up encounter Hazel Velásquez MD Work Phone: [facility] Start: 12-01-2024 End: 12-01-2024 ambulatory HAZEL VELÁSQUEZ Not Available Start: 11-23-2024 End: 11-23-2024 ambulatory [facility] Work Phone: Start: 11-23-2024 End: 11-23-2024 Patient encounter procedure [facility] Work Phone: Start: 11-18-2024 End: 11-18-2024 Refill Hazel Velásquez MD Work Phone: [facility] Comment on above: Type 2 diabetes anne itus without complication, without long- term current use of insulin Start: 11-08-2024 End: 11-08-2024 ambulatory [facility] Start: 11-07-2024 End: 11-07-2024 Bamboo flowsheet Hazel Velásquez MD Work Phone: [facility] Start: 11-07-2024 End: 11-07-2024 Bamboo flowsheet Hazel Velásquez MD Work Phone: [facility] Start: 11-07-2024 End: 11-07-2024 Patient encounter procedure Hazel Velásquez MD Work Phone: [facility] Start: 11-07-2024 End: 11-07-2024 Periodic preventive [...] 11-06-2024 End: 11-06-2024 ambulatory Rosibel Cotton MD Facility: [facility] Start: 10-17-2024 End: 10-17-2024 ambulatory [facility] Start: 09-27-2024 End: 09-27-2024 Bamboo flowsheet Lukas Luz RN [facility] Start: 09-27-2024 End: 09-27-2024 Bamboo flowsheet Lukas Luz RN [facility] Start: 09-27-2024 End: 09-27-2024 ambulatory LUKAS ALT Not Available Start: 09-11-2024 End: 09-11-2024 Telephone encounter Hazel Velásquez MD Work Phone: [facility] Start: 09-04-2024 End: 09-04-2024 ambulatory [facility] Work Phone: Start: 09-04-2024 End: 09-04-2024 Patient encounter procedure [facility] Work Phone: Start: 08-24-2024 End: 08-24-2024 Bamboo flowsheet Lukas Alt RN [facility] Start: 08-24-2024 End: 08-24-2024 Bamboo flowsheet Ulkas Alt RN [facility] Start: 08-24-2024 End: 08-24-2024 ambulatory LUKAS ALT Not Available Start: 08-21-2024 End: 08-21-2024 ambulatory JOHN GAUTHIER Not Available Start: 08-21-2024 End: 08-21-2024 Office outpatient visit 15 minutes John Gauthier DPM Work Phone: [facility] Comment on above: Corns and callositie [...] frontal sinusitis; Herpes infection; Benign essential HTN ([facility]); Coronary artery disease involving [place] coronary artery of [place] heart with angina pectoris ([facility]); Gastroesophageal reflux disease without esophagitis; Cigarette smoker; Mixed hyperlipidemia ([facility]) Start: 08-08-2024 End: 08-08-2024 ambulatory HAZEL VELÁSQUEZ Not Available Start: 07-26-2024 End: 07-26-2024 Bamboo flowsheet Lukas Luz RN [facility] Start: 07-26-2024 End: 07-26-2024 Bamboo flowsheet Lukas Luz RN [facility] Start: 07-26-2024 End: 07-26-2024 ambulatory LUKAS LUZ Not Available Start: 07-25-2024 End: 07-25-2024 Bamboo flowsheet John Gauthier DPM Work Phone: [facility] Start: 07-25-2024 End: 07-25-2024 Bamboo flowsheet John Gauthier DPM Work Phone: [facility] Start: 07-25-2024 End: 07-25-2024 Office outpatient visit 15 minutes John Gauthier DPM Work Phone: [facility] Comment on above: Diabetic polyneuropa thy associated with type 2 diabetes mellitus ([facility]) (Primary Dx); Onychomycosis; Onychodystrophy; Pain in both [...] (CMS/HCC) (Primary Dx); Coronary artery disease involving [place] coronary artery of [place] heart with angina pectoris (CMS/HCC); Factor 5 [...] [facility] Start: 06-09-2024 End: 06-09-2024 [facility] Start: 06-09-2024 End: 06-09-2024 Subsequent hospital visit by physician Maximiliano You MD Work Phone: [facility] Comment on above: GERD (gastroesophage al reflux disease) Start: 06-05-2024 End: 06-05-2024 ambulatory Rosibel Cotton MD Facility: [facility] Start: 05-04-2024 End: 05-04-2024 [facility] Start: 04-10-2024 End: 04-10-2024 ambulatory Rosibel Cotton MD Facility: [facility] Start: 02-03-2024 End: 02-03-2024 ambulatory NANCY LUDWIG [facility] Start: 01-25-2024 End: 01-25-2024 ambulatory SOLITARIO GARCÍA [facility] Start: 01-12-2024 End: 01-12-2024 ambulatory NICOLE TELLES [facility] Start: 01-12-2024 Encounter for other preprocedural examination MAXIMILIANO [facility] Start: 09-13-2023 End: 09-13-2023 Subsequent hospital visit by physician [facility] Comment on above: Flatulence, eructati on and gas pain Start: 09-13-2023 End: 09-13-2023 ambulatory NICOLE R [facility] Start: 09-13-2023 Encounter for other preprocedural examination [facility] Start: 04-07-2023 ambulatory Gayle Washington MD Work Phone: Rheumatology Comment on above: Fax info Start: 10-16-2022 Encounter for preprocedural cardiovascular examination DR ULISES TIM [facility] Start: 10-16-2022 Encounter for preprocedural laboratory examination DR ULISES TIM [facility] Start: 10-13-2022 End: 10-13-[address] ULISES TMI Facility:[facility] Start: 10-07-2022 End: 10-08-[address] ULISES TIM Facility:[facility] Start: 10-07-2022 End: 10-08-2022 Encounter for preprocedural cardiovascular examination DR ULISES TIM Facility:[facility] Start: 07-23-2022 End: 07-24-2022 ambulatory BEN MONROE . Facility:[facility] Start: 06-11-2022 End: 06-12-[address] DOCTOR DENTON Facility:[facility] Start: 05-18-2022 [facility] Get Medical Advice Gayle Washington MD Work [...] End: 12-16-[address] RACHEL STOCK . Facility: Start: 12-12-2021 Telephone encounter Emmett Brunner [facility] Start: 12-12-2021 End: 12-13-2021 ambulatory KIMBERLEY GIBBONS [facility] Other Start: 12-12-2021 End: 12-12-2021 Patient encounter [...] 10-29-2021 Chart Update Cristobal miller Work Phone: [id number] Work Phone: Start: 10-14-2021 End: 10-14-2021 ambulatory Emmett Brunner Other [facility] Other Start: 10-14-2021 Patient encounter procedure Emmett Brunner [facility] Start: 09-23-2021 End: 09-23-2021 ambulatory Emmett Brunner Other [facility] Other Start: 09-23-2021 Telephone encounter Emmett Brunner [facility] Start: 07-01-2021 End: 07-01-2021 ambulatory Letty Olson Other [facility] Other Start: 07-01-2021 Office outpatient vi sit 25 minutes Letty Olson [facility] Start: 06-26-2021 (Procedure) Short Emmett Brunner [facility] Start: 06-26-2021 End: 06-26-2021 ambulatory Emmett Brunner Other [facility] Other Start: 06-18-2021 End: 06-18-2021 ambulatory Emmett Brunner Other [facility] Other Start: 06-18-2021 Office outpatient vi sit 25 minutes Emmett Kannan [facility] Start: 06-18-2021 Telephone encounter Emmett Brunner [facility] Start: 06-04-2021 End: 06-04-2021 Subsequent hospital visit by physician Christina [facility] Comment on above: Chronic hip pain, bi lateral [M25.551, M25.552, G89.29] Start: 05-21-2021 (Procedure) Short Emmett Brunner [facility] Start: 05-21-2021 End: 05-21-2021 ambulatory Emmett Brunner Other [facility] Other Start: 05-15-2021 End: 05-15-2021 ambulatory Emmett Brunner Other [facility] Other Start: 05-15-2021 Office outpatient vi sit 25 minutes Emmett Kannan [facility] Start: 04-30-2021 (Procedure) Short Emmett Brunner [facility] Start: 04-16-2021 (Procedure) Short Emmett Brunner [facility] Start: 04-02-2021 Office outpatient vi sit 25 minutes Emmett Kannan [facility] Start: 02-21-2021 Office outpatient vi sit 15 minutes Cristobal Tomas Work Phone: [id number] Work Phone: Start: 06-25-2020 End: 06-27-2020 Evaluation and management of inpatient [facility] Start: 06-25-2020 End: 06-28-2020 Patient encounter procedure [facility]STOBAL [facility] Start: 06-18-2020 End: 06-23-2020 Patient encounter procedure [facility]RISTOBAL [facility] Start: 05-09-2020 End: 05-09-2020 Patient encounter procedure FEMI DUARTE [facility] Procedures Date Procedure Procedure Detail Performing Clinician Start: 02-13-2025 Hemoglobin glycosylated a1c Hazel hernandez MD Work Phone: Start: 12-01-2024 Mammography Hazel Velásquez MD Work Phone: Start: 11-08-2024 Hemoglobin glycosylated a1c Hazel hernandez MD Work Phone: Start: 06-09-2024 Esophagogastroduodenoscopy Maximiliano salinas MD Work Phone: Start: 09-13-2023 Assay of gammaglobulin iga igd igg igm each Nicole Telles 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 Work Phone: Start: 02-11-2023 H/O: hysterectomy S/P [...] Treatment Date Care Activity Detail Author Start: 01-25-2027 Glaucoma screening Diabetes: Retinopathy Screening [facility] Start: 03-16-2026 Screening for malignant neoplasm of colon [facility] Start: 12-01-2025 Screening for malignant neoplasm of breast Mammogram [facility] Start: 11-07-2025 Medicare Annual Wellness (AWV) Medicare Annual Wellness (AWV ) [facility] Start: 08-08-2025 Urine screening for protein Diabetes: Urine Protein Screening [facility] Start: 05-17-2025 End: 05-17-2025 Patient encounter procedure 05/17/2025 10:20 AM EST Of fice Visit [facility] [address] [facility] [place] [phone] Hazel Velásquez MD [address] [facility] [place] [address] [facility] Start: 05-16-2025 Hemoglobin A1c measurement Diabetes: Hemoglobin A1C [facility] Start: 04-06-2025 End: 04-06-2025 Patient encounter procedure [facility] Start: 03-05-2025 Influenza vaccination [facility] Start: 02-08-2025 Hemoglobin A1c measurement Diabetes: Hemoglobin A1C [facility] Start: 02-08-2025 End: 02-08-2025 Patient encounter procedure 02/08/2025 10:00 AM EDT Of fice [facility] [address] [facility] [place] [phone] Hazel Velásquez MD [address] [facility] [place] [address] [facility] Start: 01-03-2025 End: 01-03-2025 Patient encounter procedure 01/03/2025 4:00 PM EDT Off ice Visit [facility] [address] [place] [phone] John Gauthier, DPM [address] [place] [address] Arrived [facility] Comment on above: Arrived Start: 12-12-2024 DIABETES SCREEN DIABETES SCREEN [facility] Start: 12-12-2024 Diabetes Screening Diabetes Screening [facility] Start: 12-01-2024 End: 12-01-2024 Professional / ancillary services management [facility] Start: 11-07-2024 End: 11-07-2025 CT Chest for screening WO contrast CT lung screening low dose Imaging Routine Nicotine abuse Nicotine dependence, cigarettes, in remission Expected: 11/07/2024, Expires: 11/07/2025 [facility] Comment on above: Expected: 11/07/2024, Expires: Start: 11-07-2024 End: 11-07-2025 US Soft Tissue Palpable Mass US Soft Tissue Palpable M ass Imaging Routine Cyst, dermoid, arm, right Expected: 11/07/2024, Expires: 11/07/2025 [facility] Work Phone: Comment on above: Expected: 11/07/2024, Expires: Start: 11-07-2024 End: 11-07-2024 Patient encounter procedure [facility] Comment on above: Arrived Start: 11-01-2024 Hemoglobin A1c measurement Diabetes: Hemoglobin A1C [facility] Start: 10-24-2024 End: 10-24-2024 Patient encounter procedure 10/24/2024 10:15 AM EDT Procedure Visit [facility] [address] [facility] [place] [phone] John Gauthier, DP [address] [place] [address] [facility] Start: 09-27-2024 End: 09-27-2024 Clinical Support 09/27/2024 10:30 AM EDT Clinical Support [facility] [address] [facility] [place] [phone] Lukas Luz, ROBERTO Arrived [facility] Comment on above: Arrived Start: 09-26-2024 End: 09-26-2024 Clinical Support 09/26/2024 11:30 AM EDT Clinical Support [facility] [address] [place] [facility] [place] [address] Lukas Luz, RN [facility] Start: 08-24-2024 End: 08-24-2024 Clinical Support [facility] Comment on above: Arrived Start: 08-17-2024 Hemoglobin A1c measurement Diabetes: Hemoglobin A1C [facility] Start: 08-08-2024 End: 08-08-2025 Microalbumin/Creatinine panel in [...] Start: 07-25-2024 End: 07-25-2024 Patient encounter procedure [facility] Comment on above: Arrived Start: 07-06-2024 End: 09-03-2025 DBT Breast - bilateral screening Bilateral screening mammogram with tomosynthesis Imaging Routine Encounter for screening mammogram for malignant neoplasm of breast Expected: 07/06/2024, Expires: 09/03/2025 [facility] Work Phone: Comment on above: Expected: 07/06/2024, Expires: Start: 07-06-2024 End: 07-06-2024 Patient encounter procedure 07/06/2024 11:30 AM EST Of fice Visit [facility] [address] [facility] [place] [phone] Hazel Velásquez MD [address] [facility] [place] [address] Arrived [facility] Comment on above: Arrived Start: 07-01-2024 Screening for malignant neoplasm of breast Breast cancer screen [facility] Start: 06-09-2024 End: 06-09-2024 Esophagogastroduodenoscopy transoral diagnostic ESOPHAGOGASTRODUODENOSCOPY GERD (gastroesophageal reflux disease) 06/09/2024 10:28 AM EST [facility] Start: 03-05-2024 COVID-19 Vaccine ( season) COVID-19 Vaccine ( season) [facility] Start: 03-05-2024 Influenza vaccination Influenza Vaccine (#1) [facility] Start: 02-12-2024 Medicare Annual Wellness (AWV) Medicare Annual Wellness (AWV ) [facility] Start: 02-03-2024 Influenza vaccination Flu vaccine (#1) [facility] Start: 02-03-2024 End: 02-03-2024 Admission to same day surgery center 02/03/2024 8:45 AM EDT - 02/03/2024 9:05 AM EDT Surgery [facility] OR [address] [place] [address] Nancy Ludwig MD [address] [place] [id number] ESOPHAGOGASTRODUODENOSCOPY [facility] OR Comment on above: ESOPHAGOGASTRODUODENOSCOPY Start: 02-03-2024 End: 02-03-2024 Esophagogastroduodenoscopy transoral diagnostic ESOPHAGOGASTRODUODENOSCOPY Chronic GERD 02/03/2024 8:45 AM EDT [facility] Start: 02-03-2024 Subsequent hospital visit by physician 02/03/2024 8:45 AM EDT Hospital Encounter [facility] OR [address] [place], [place] [phone] Nancy Ludwig MD [address] [place] [id number] [facility] OR Start: 07-05-2023 Annual Wellness Visit (Medicare Advantage) Annual Wellness Visit (Medicare Advantage) [facility] Start: 07-01-2023 Screening for malignant neoplasm of breast Mammogram [facility] Start: 06-09-2023 Lipid 1996 panel - Serum or Plasma Lipid Screening [facility] Start: 06-09-2023 LIPID SCREEN LIPID SCREEN [facility] Start: 03-05-2023 COVID-19 Vaccine ( season) COVID-19 Vaccine ( season) [facility] Start: 03-05-2023 Influenza vaccination [facility] Start: 02-02-2023 Influenza vaccination Flu vaccine (#1) [facility] Start: 07-05-2022 DEPRESSION ASSESSMENT DEPRESSION ASSESSMENT [facility] Start: 03-19-2022 End: 12-17-2022 25-hydroxyvitamin D3 [Mass/volume] in Serum or Plasma VITAMIN D 25 HYDROXY Lab Routine Vitamin D deficiency Expected: 03/19/2022 (Approximate), Expires: 12/17/2022 [facility] Work Phone: Comment on above: Expected: 03/19/2022 (Approximate), Expi res: 12/17/2022 Start: 03-05-2022 Influenza vaccination [facility] Start: 08-21-2021 COVID-19 VACCINE (2 - Booster for Barbara series) COVID-19 VACCINE (2 - Booster for Barbara series) [facility] Start: 07-05-2021 DEPRESSION ASSESSMENT DEPRESSION ASSESSMENT [facility] Start: 06-17-2021 Mammography [facility] Start: 2018 Shingles vaccine (1 of 2) Shingles vaccine (1 of 2) [facility] Start: 2018 SHINGRIX VACCINE (1 of 2) SHINGRIX VACCINE (1 of 2) [facility] Start: 2013 COLOGUARD (FIT-DNA) COLOGUARD (FIT-DNA) [facility] Start: 2013 Colonoscopy COLONOSCOPY [facility] Start: 2013 COLORECTAL CANCER SCREENING COLORECTAL CANCER SCREENING [facility] Start: [address] COLONOGRAPHY [facility] Start: 2013 FECAL OCCULT BLOOD FECAL OCCULT BLOOD [facility] Start: 2013 Screening for malignant neoplasm of colon [facility] Start: 2013 SIGMOIDOSCOPY SIGMOIDOSCOPY [facility] Start: 2003 Diabetes screen Diabetes screen [facility] Start: 1998 HPV TESTING HPV TESTING [facility] Start: 1989 PAP TESTING PAP TESTING [facility] Start: 1987 DTaP/Tdap/Td vaccine (1 - Tdap) DTaP/Tdap/Td vaccine (1 - Tdap) [facility] Start: 1987 Hepatitis B vaccine (1 of 3 - 19+ 3-dose series) Hepatitis B vaccine (1 of 3 - 19+ 3-dose series) [facility] Start: 1987 Urine microalbumin profile [facility] Start: 1987 Urine screening for protein Diabetes: Urine Protein Screening [facility] Start: 1986 Hepatitis C screening Hepatitis C screen [facility] Start: 1986 HIV SCREENING HIV SCREENING [facility] Start: 1983 HIV screening HIV screen [facility] Start: 1980 Adult depression screening assessment DEPRESSION SCREENING [facility] Start: 1980 Depression Screen Depression Screen [facility] Start: 1978 Glaucoma screening Diabetes: Retinopathy Screening [facility] Start: 1978 Lipid panel Lipids [facility] Start: 1974 PNEUMOCOCCAL (1 - PCV) PNEUMOCOCCAL (1 - PCV) [facility] Start: 1974 Pneumococcal 0-64 years Vaccine (1 - PCV) Pneumococcal 0-64 years Vaccine (1 - PCV) [facility] Start: 1974 Pneumococcal 0-64 years Vaccine (1 of 2 - PCV) Pneumococcal 0-64 years Vaccine (1 of 2 - PCV) [facility] Start: 1974 Pneumococcal vaccination Pneumococcal Vaccine (1 - PCV) [facility] Start: 1968 HEPATITIS B (1 of 3 - 3-dose series) HEPATITIS B (1 of 3 - 3-dose series) [facility] Start: 1968 Hepatitis B Vaccine (1 of 3 - 3-dose series) Hepatitis B Vaccine (1 of 3 - 3-dose series) [facility] Start: 1968 Screening for malignant neoplasm of colon [facility] Celiac Disease Panel Celiac Dise ase Panel Lab Routine Flatulence, eructation and gas pain 09/13/2023 4:20 PM EDT [facility] End: 09-13-2023 H. pylori antigen [facility] [employer] Comment on above: Once for 1 Occurrences starting 09/13/19 24 until 09/13/2023 End: 09-13-2023 H. Pylori Antigen, Stool H. Pylori Antigen, Stool Lab Routine Flatulence, eructation and gas pain 1 Occurrences starting 09/13/2023 until 09/13/2023 [employer] Work Phone: Comment on above: 1 Occurrences starting 09/13/2023 until 09/13/2023 End: 06-09-2024 INITIATE PACU OXYGEN THERAPY PROTOCOL Initiate PACU Oxygen Therapy Protocol Respiratory Care Routine Continuous until discontinued starting 06/09/2024 [employer] Comment on above: Continuous until discontinued starting 1 08/10/2023 Pathology study Surgical Patholo gy Lab Routine GERD (gastroesophageal reflux disease) Release Upon Ordering for 1 Occurrences starting 06/09/2024 [employer] Comment on above: Release Upon Ordering for 1 Occurrences starting 06/09/2024 Immunizations Immunization Date Immunization Notes Care Provider [facility] 04-06-2019 influenza, injectabl e, quadrivalent, preservative free Cristobal F Genoveva Work Phone: [id number] Work Phone: 04-06-2019 influenza virus vaccine, unspecified formulation Gayle Washington MD Work Phone: [facility] 05-15-2016 seasonal influenza, intradermal, preservative free Cristobal Tomas Work Phone: [employer] Payers Date Payer Category Payer Medicare [id number] 2024 Medicare (Managed Care) [facility] [place] [facility] [id number] 2024 Unknown [id number] 2024 Medicare [id number] .[id number] 2021 Unknown 2021 Unknown CLAYTON SANCHEZ X [id number] 2021-Present [phone] [address] [address] [place] [address] O [id number] .[id number] 2020 Private Health Insurance [id number]. 3 .[id number] 2018 Unknown [id number] 2.16.840.1.119275.19 2017 Unknown [id number] 1968 Unknown [id number] 2.16.840.1.192634.3.579.2.182 1968 Unknown [id number] 2.16.840.1.712577.3.579.2.182 1968 Unknown [id number] 2.16.840.1.514018.3.579.2.182 1968 Unknown [id number] 2.16.840.1.026798.3.579.2.182 1968 Unknown [id number] 2.16.840.1.309327.3.579.2.182 1968 Unknown [id number] 2.16.840.1.461252.3.579.2.593 1968 Unknown [id number] 2.16.840.1.047641.3.579.2.593 1968 Unknown [id number] 2.16.840.1.359698.3.579.2.593 1968 Unknown [id number] 2.16.840.1.932988.3.579.2.593 1968 Unknown [id number] 2.16.840.1.015137.3.579.2.593 1968 Unknown [id number] 2.16.840.1.634311.3.579.2.593 1968 Unknown [id number] 2.16.840.1.964161.3.579.2.593 1968 Unknown [id number] 2.16.840.1.995113.3.579.2.593 1968 Unknown [id number] 2.16.840.1.866426.3.579.2.593 1968 Unknown [id number] 2.16.840.1.986223.3.579.2.593 1968 Unknown [id number] 2.16.840.1.309224.3.579.2.593 1968 Unknown [id number] 2.16.840.1.936977.3.579.2.173 1968 Unknown [id number] 2.16.840.1.374676.3.579.2.173 1968 Unknown [id number] 2.16.840.1.219449.3.579.2.173 1968 Unknown [id number] 2.16.840.1.341367.3.579.2.173 1968 Unknown [id number] 2.16.840.1.120459.3.579.2.173 1968 Unknown [id number] 2.16.840.1.157498.3.579.2.125 9 1968 Unknown [id number] 2.16.840.1.284562.3.579.2.125 9 1968 Unknown [id number] 2.16.840.1.825082.3.579.2.125 9 1968 Unknown [id number] 2.16.840.1.481123.3.579.2.125 9 1968 Unknown [id number] 2.16.840.1.715258.3.579.2.125 9 1968 Unknown [id number] 2.16.840.1.569465.3.579.2.125 9 1968 Unknown [id number] 2.16.840.1.880735.3.579.2.125 9 1968 Unknown [id number] 2.16.840.1.544030.3.579.2.125 9 1968 Unknown [id number] 2.16.840.1.313647.3.579.2.125 9 1968 Unknown [id number] 2.16.840.1.656130.3.579.2.125 9 1968 Unknown [id number] 2.16.840.1.533059.3.579.2.125 9 1968 Unknown [id number] 2.16.840.1.555384.3.579.2.125 9 1968 Unknown [id number] 2.16.840.1.998859.3.579.2.125 9 1968 Unknown [id number] 2.16.840.1.946521.3.579.2.196 1968 Unknown [id number] 2.16.840.1.285716.3.579.2.196 1968 Unknown [id number] 2.16.840.1.635770.3.579.2.196 1968 Unknown [id number] 2.16.840.1.180535.3.579.2.196 1968 Unknown [id number] 2.16.840.1.690214.3.579.2.196 Unknown Regular Auto/Medical [id number] Regular Auto/Liability [id number] Social History Date Type Detail Facility Start: 07-05-1984 End: 07-06-2024 Tobacco smoking status [facility] Smokes tobacco daily [facility] Start: 07-05-1984 History of tobacco use Cigarette Smoker [facility] Start: 06-04-2021 End: 11-07-2024 Cigarettes smoked current (pack per day) - Reported 1 [facility] Start: 06-04-2021 End: 09-08-2023 Tobacco use and exposure Smokeless tobacco non-user [facility] Start: 12-12-2021 End: 06-09-2024 Alcohol intake Current drinker of alcohol (finding) [facility] Start: 06-04-2021 History SDOH Alcohol Comment rarely. [facility] Start: 1970 Sex Assigned At Not on file [facility] Start: 11-29-2021 End: 12-09-2021 Exposure to SARS-CoV-2 (event) Unable to assess [facility] Start: 06-05-2021 End: 11-07-2024 Sex Assigned At [id number] Other Start: 05-05-2021 End: 06-04-2021 Exposure to SARS-CoV-2 (event) Not sure [facility] National Score (1-100), lower number is lower risk 95 [facility] (I/We) worried whether (my/our) food would run out before (I/we) got money to buy more. Never true [employer] Start: 09-08-2023 Tobacco Comment intermittently since 15 [employer] Start: 05-03-2020 Alcohol Comment hardly ever [employer] Start: 10-29-2023 End: 02-13-2025 Alcoholic beverage intake Ex-drinker (finding) [facility] How often to you hav e a drink containing alcohol? 2-4 times a month [facility] How many standard drinks containing alcohol do you have on a typical day? 3 or 4 [facility] How often do you hav e 6 or more drinks on 1 occasion? Less than monthly [facility] Start: 01-19-2023 Education 16 [facility] Start: 10-28-2023 Alcohol Comment Caffine: 2 cups daily [facility] Start: 1970 Sex assigned at Female [facility] Start: 09-16-2022 Gender identity Identifies as female gender (finding) [facility] Start: 09-04-2024 End: 11-07-2024 Tobacco smoking status NHIS Ex-smoker (finding) [facility] Start: 09-04-2024 End: 11-23-2024 Sex Female (finding) [facility] Start: 07-05-1984 History of tobacco use Current smoker [facility] Medical Equipment Procedure Code Equipment Code Equipment Original Text Equipment Identifier Dates Impl Alena Spine R michael Ti35 Mm 55 Mm [id number] Start: 06-25-2020 Graft Spnl W11xh 2ab10fo Corticocancellous Lord Triad - [id number] Start: 05-09-2020 Plate Spnl L28mm Antr Cerv 1 Lev Translational [place] Acp [id number] Start: 05-09-2020 Screw Spnl L13mm Dia4mm Ant Cerv [facility] Braulio Ang Compr [place] Acp [id number] Start: 05-09-2020 Connector Spnl C rss Lo Prof Adj Reline-O 5.5 X 45-65 Mm [id number] Start: 06-25-2020 Screw Spnl Dia5. 5mm Opn Tulip Roselyn Reline [id number] Start: 06-25-2020 Graft Bne Sub 30 cc 1.7-10mm Canc Chip Morselized Frz Dry - [id number] Start: 06-25-2020 Graft Bne Sub 5m l Mtrx Cellular Osteocel + - [id number] Start: 06-25-2020 Spacer Spnl L W1 [id number] 4deg Post Lum Intbdy Fus Lord [id number] Start: 06-25-2020 Screw Spnl L50mm Dia7.5mm Post Thoracolumbosacral Polyax 2s [id number] Start: 06-25-2020 Screw Spnl L55mm Od6mm 2s Polyax Reline O [id number] Start: 06-25-2020 Alena Spnl Lordtc 5.5x40 Mm Ti Reline-O [id number] Start: 06-25-2020 Clip Endoscp 235 cm Resol 360 Order Uom Is Each - [id number] Start: 02-03-2024 Functional Status Date Assessment Result Facility 11-07-2024 Patient Health [facility] ionnaire 2 item (PHQ-2) [Reported] [facility] 05-06-2025 How difficult have t hese problems made it for you to do your work, take care of things at home, or get along with other people? Not difficult at all 11/07/2024 10:00 AM EDT Lesley Telles MA Not difficult at all [facility] Clinical Notes 04-02-2021 to 02-13-2025 Hazel Velásquez MD - 02/13/2025 2:40 PM EDTHazel Velásquez MD - 02/13/2025 2:40 PM Hanane Gauthier DPM - 01/03/2025 4:00 PM EDTHazel Velásquez MD - 11/07/2024 10:00 AM EDT Note Date & Type Note Facility 02-13-2025 History of Present illness Narrative Associated Problem(s): Marijuana smoker ppSubjective Patient ID: Pretty Garcia is a [...] lb 12.8 oz SpO2 96% BMI 33.44 kg/m Physical Exam Physical Exam General Appearance: Normal. Vital signs: Within normal limits. HEENT: Within normal limits. Respiratory: Clear to auscultation, no wheezing, rales or rhonchi. Cardiovascular: regular rate and rhythm with no murmur. Extremities: no edema, palpable pulses. Skin: Warm and dry, no rash. Neurological: Normal. Psychiatric: Normal. Assessment & Plan Type 2 diabetes mellitus without complication, without long-term current use of insulin ([facility]) Orders: POCT Glycated hemoglobin, total Nicotine abuse [...] see if it is better tolerated. If her insurance does not approve Mounjaro, she will revert [...] for memory issues. documented in this encounter [facility] 01-03-2025 History of Present illness Narrative Images [...] Timmis OVARIAN CYST REMOVAL 1987 -Dr. Chawla LA FASCIOTOMY FOOT&/TOE 1997 plantar LA KNEE SCOPE,DIAGNOSTIC Right 12/03/[address] HARRINGTON LA LAP,CHOLECYSTECTOMY 2000 ROTATOR CUFF REPAIR 06/05/2019 resection [...] utilizing a nail nipper and electric bur grinder hardboard without incident. A sterile #15 blade was [...] John Gauthier DPM documented in this encounter [facility] 11-08-2024 Note Patient here for res [...] heartbeat. Neurological: Positive for dizziness and light-headedness. [facility] 11-08-2024 Note Cardiovascular Medic [facility] SUBJECTIVE Chief Complaint Patient presents [...] ago she started exercise program at the [facility]. This has helped her sx's some. But [...] Unstable angina (CMS/HCC) Coronary artery disease involving [place] coronary artery of [place] heart without angina pectoris Degenerative joint disease [...] Vitamin D defi (more content not included)... [facility] 11-07-2024 History of Present illness Narrative Images from the original note were not included. Lexi Garcia is a 54 y.o. female presents with chief complaint of mwv patient has been struggling with her STM the past couple of years. Family eye care in [place]. 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 SUBJECTIVE Chief Complaint Patient presents [...] ago she started exercise program at the [facility]. This has helped her sx's some. But [...] Unstable angina (CMS/HCC) Coronary artery disease involving [place] coronary artery of [place] heart without angina pectoris Degenerative joint disease [...] 01/03/1994 Quit da (more content not included)... [facility] 10-17-2024 Note Patient is here [...] breath. Neurological: Positive for dizziness and light-headedness. [facility] 09-11-2024 Telephone encounter Note Pt called-she states she was supposed to let us know how the Ozempic went, she states it went well. She also scheduled an appt with Lukas. [facility] [facility] 09[facility]24 Miscellaneous Notes Pt called-she states she was supposed to let us know how the Ozempic went, she states it went well. She also scheduled an appt with Lukas. documented in this encounter [facility] 09-04-2024 Evaluation note Diagnosis Onset Date Resolution Dyspepsia acute September 04 1:55pm GERD (gastroesophageal reflux disease) acute September 04, 2024 1:55pm GERD (gastroesophageal reflux disease) acute November 23, 2024 1 0:43am [facility] Work Phone: [phone] 262-968802-17-2025 History of Present illness Narrative* John Gauthier DPM - 08/21/2024 3:15 PM EST Images from [...] Timmis OVARIAN CYST REMOVAL 1987 -Dr. Chawla LA FASCIOTOMY FOOT&/TOE 1998 plantar LA KNEE SCOPE,DIAGNOSTIC Right 12/03/[address] HARRINGTON LA LAP,CHOLECYSTECTOMY 2000 ROTATOR CUFF REPAIR 06/05/2019 resection [...] understanding. John Gauthier DPM documented in this encounterKindred [id number] History of Present illness Narrative* Hazel Velásquez [...] planning to schedule an appointment with her [id number] armor crewman due to changes in her vision. She [...] She is under the care of a rim buster at [facility]. She has been compliant with her cholesterol [...] GERD symptoms. 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 She had a herpes outbreak on her [...] She is currently underthe care of a rim buster at [facility]. 4. Cholesterol Management. Her LDL cholesterol is [...] Mixed hyperlipidemia (CMS/HCC) Coronary artery disease involving [place] coronary artery of [place] heart with angina pectoris (CMS/HCC) Herpes infection Other Visit Diagnoses Poorly controlled type 2 diabetes mellitus with neuropathy ([facility]) - Primary Relevant Orders Microalbumin / creatinine, urine ratio Morbid (severe) obesity due to excess calories ([facility]/HCC) Body mass index (BMI) 38.0-38.9, adult Acute non-recurrent frontal sinusitis documented in this encounterKindred [id number] History of Present illness Narrative* John Xi Gauthier, DPM - 07/25/2024 10:00 AM EST Images [...] Timmis OVARIAN CYST REMOVAL 1987 -Dr. Chawla LA FASCIOTOMY FOOT&/TOE 1997 plantar LA KNEE SCOPE,DIAGNOSTIC Right 12/03/[address] HARRINGTON LA LAP,CHOLECYSTECTOMY 1999 ROTATOR CUFF REPAIR 06/05/2019 resection [...] polyneuropathy associated with type 2 diabetes mellitus ([facility]) E11.42 2. Onychomycosis B35.1 3. Onychodystrophy L60.3 [...] utilizing a nail nipper and electric bur grinder hardboard without incident. We discussed phenol matricectomy for [...] understanding. John Gauthier DPM documented in this encounterKindred [id number] Telephone encounter Note* Telephone Encounter - Sherly Ansari - 07/21/2024 11:49 AM EST 20% CO PAY WITH TEN 1 HR VISITS FIRST YEAR AND TWO 1 HR VISITS SUBSEQUENT YEARS [facility] [id number] Miscellaneous Notes* Telephone Encounter - Sherly Ansari - 07/21/2024 11:49 AM EST 20% CO PAY WITH TEN 1 HR VISITS FIRST YEAR AND TWO 1 HR VISITS SUBSEQUENT YEARS documented in this encounterKindred [id number] History of Present illness Narrative* Hazel Velásquez [...] She had an A1c done at her rim buster and number was 9.3. She has hypertension. She is on amlodipine. She has coronary artery disease. She has not had any stents or heart attacks. She had a heart catheterization, which came back with coronary artery disease. She has high cholesterol. She is on Zetia and Lipitor. She is on Eliquis, a blood thinner. She started going to a architectural wood model maker in [facility] because she has factor V Leiden. The architectural wood model maker thought since she was getting older that [...] to twice daily. A referral to a breastfeeding educator will be made for further education [...] Mixed hyperlipidemia (CMS/HCC) Coronary artery disease involving [place] coronary artery of [place] heart with angina pectoris (CMS/HCC) Other Visit Diagnoses Type 2 diabetes mellitus without complication, without long-term current use of insulin (CMS/HCC) Relevant Medications metFORMIN (Glucophage) 500 MG tablet Encounter for screening mammogram for malignant neoplasm of breast Relevant Orders Bilateral screening mammogram with tomosynthesis documented in this encounterKindred [id number] History of Present illness Narrative* Erika Oconnor [...] Patient has stopped her eliquis per her rim buster, Dr Nikko mitchell, who also provided cardiac [...] PAT phone call. [facility] Discharge instructions* Discharge Instructions* Maximiliano You [...] one drug, even if it is an jgxi-mte-rjwpjka medication, herb, or dietary supplement, be sure [...] call 911 immediately. documented in this encounterBon [facility] Cardiovascular Medicine [facility] SUBJECTIVE Lexi Garcia is a 54 [...] Diagnosis Chest pain, atypical Benign essential HTN HOFFMNA (dyspnea on exertion) Fibromyalgia Elevated d-dimer Mixed hyperlipidemia GERD without esophagitis Orthopnea Sleep disturbances Abnormal nuclear stress test Unstable angina (CMS/HCC) Coronary artery disease involving [place] coronary artery of [place] heart without angina pectoris Degenerative joint disease [...] in 2019 Chronic pain disorder Clotting disorder (CMS/HCC) Depression Factor V Leiden (CMS/HCC) Fibromyalgia, primary [...] needed in the morni (more content not included)...[facility] 01-25-2024 Note Attestation signed by [...] able to decrease Celebrex to 200 BID [facility] Follow-up Patient Visit Subjective Chief [...] surgery with numbness in hands and decreased top cleaner strength, R>L shoulders, neck (better since ablation). AM stiffness lasts 1-2 hrs (was 2-3 hr prior),, on average daily. Denies joint erythema, swelling, warmth. Comprehensive History: Patient Active Problem List Diagnosis Chest pain, atypical Benign essential HTN HOFFMAN (dyspnea on exertion) Fibromyalgia Elevated d-dimer Mixed hyperlipidemia GERD without esophagitis Orthopnea Sleep disturbances Abnormal nuclear stress test Unstable angina (CMS/HCC) Coronary artery disease involving [place] coronary artery of [place] heart without angina pectoris Degenerative joint disease [...] (Lipitor) 80 mg ta (more content not included)...[facility]10-04-2023 Miscellaneous Notes* Telephone Encounter - [...] Washington MD * Telephone Encounter - Nadine BruceLUCERO - 04/07/2023 12:34 PM EDT Most recent [...] Assoc. diagnoses: Vitamin B12 deficiency SED RATE WESTCHARUREN [SQWSR] 10/05/22 10/06/23 10/05/22 Auth. provider: Gayle Washington MD Assoc. diagnoses: Elevated sed rate, Elevated C-reactive protein (CRP) C-REACTIVE PROTEIN (CRP) [SQCRP] 10/05/22 10/06/23 10/05/22 Auth. provider: Gayle Washington MD Assoc. diagnoses: Elevated sed rate, Elevated C-reactive protein (CRP) Chart notes faxed with confirmation. documented in this encounterAv[facility]23 NoteOPERATIVE NOTE OPERATION DATE: 10/13/2022 PRIMARY [...] left cheek was prepped with Betadine. A Kay tip Bovie was then used to make [...] the recovery room in good condition. [id number] NoteEXAM: XR CHEST 2 V HISTORY: Pre-surgery evaluation COMPARISON: None. TECHNIQUE: PA and lateral views of the chest. FINDINGS: The cardiomediastinal silhouette is normal. No focal consolidation is identified. There is no pneumothorax. No pleural effusion is noted. The osseous structures are intact. IMPRESSION: No acute cardiopulmonary process. Electronically authenticated by: JOSIAH WILKS Date: 2022-10-07 11:27[facility]01-19-2023 NoteCONSULTATION CONSULTATION DATE: 07/23/2022 HISTORY OF PRESENT [...] injections. Patient does agree with this plan.[facility] 06-11-2022 NoteCONSULTATION CONSULTATION DATE: 06/11/2022 HISTORY OF [...] q.h.s. 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 Prescription(s) as above. Please process accordingly. Gayle Washington MD * Telephone Encounter - Marlee Joshi MA - 05/18/2022 12:37 PM EST ScaleBaset message sent to patient reminding her to [...] Lab Orders Expected Expires Ordered HLA-B27 PCR [[id number]] 06/19/21 06/18/22 06/18/21 Auth. provider: Gayle Washington MD Assoc. diagnoses: Elevated sedimentation rate VITAMIN D 25 HYDROXY [SQVITD] 03/19/22 12/17/22 12/17/21 Auth. provider: Gayle Washington MD Assoc. diagnoses: Vitamin D deficiency documented in this encounterAvita [facility]10-13-2022 NoteCONSULTATION PROCEDURE DATE: 04/16/2022 The patient [...] at the clinic in three months' time.[id number] NoteCONSULTATION CONSULTATION DATE: 04/09/2022 HISTORY OF PRESENT [...] return to the clinic for her injection.[facility] HospitalWfquvjce65-84-1133 NoteCONSULTATION CONSULTATION DATE: 01/01/2022 This is a pleasant 51-year-old female returning to the clinic status post #2 bilateral MBB on C3, C4 and C5 that afforded her 80% relief for 5 days. 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 [facility] Signed and Approved by: BEN MONROE . 01/08/2022 10:22:00[facility]06-15-2022 Miscellaneous Notes* Telephone Encounter - Kamryn [...] small superior labral tear; documented in this encounterAvita Health [facility]06-10-2022 NoteHNO ID: [id number] Author: Gayle Washington MD Service: ? Author [...] flat ground knees give out. COVID vaccine [employer] 06/26/21. Feels safe at home. 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/injections, prn acetaminophen, start prn [...] yes Dactylitis: no H/o precedent/frequent infection(s): no Enthesopathy/Helenwood's/heel/plantar tenderness: as above Skin thickening, psoriasis, photosensitivity, purpura: no Nail changes: ridges/ripples Alpecia, patchy: no Eye inflammation: glasses, R retinal hole SICCA: dry eyes Oral/nasal/genital ulcers: no GI problems-diarrhea/bleeding/IBD/Gluten intolerence/Dysphagia: gerd Raynaud's phenomenon/digital ulcers: no Organ inv-Serositis: no Lung disease/ILD: no Myopathy/proximal muscle weakness: no Abnormal Urine or urethritis: no Renal/liver disease: no POLICE DETECTIVE/PNS/sz/cva/cancer disease: no HEME-Cytopenias/LAD/Clots: no Fevers: no Fatigue: [...] PAST MEDICAL HISTORY: PMH (more content not included)...[facility]06-10-2022 History of Present illness Narrative* Gayle Washington [...] flat ground knees give out. COVID vaccine [employer] 06/26/21. Feels safe at home. 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/injections, prn acetaminophen, start prn [...] yes Dactylitis: no H/o precedent/frequent infection(s): no Enthesopathy/[place]'s/heel/plantar tenderness: as above Skin thickening, psoriasis, photosensitivity, purpura: no Nail changes: ridges/ripples Alpecia, patchy: no Eye inflammation: glasses, R retinal hole SICCA: dry eyes Oral/nasal/genital ulcers: no GI problems-diarrhea/bleeding/IBD/Gluten intolerence/Dysphagia: gerd Raynaud's phenomenon/digital ulcers: no Organ inv-Serositis: no Lung disease/ILD: no Myopathy/proximal muscle weakness: no Abnormal Urine or urethritis: no Renal/liver disease: no POLICE DETECTIVE/PNS/sz/cva/cancer disease: no HEME-Cytopenias/LAD/Clots: no Fevers: no Fatigue: [...] rest of cb, cmp, uric acid 3.1, [id number];negative rf<10, ccp<15, flakita ifa, hla b27, hepatitis [...] retinal hole, s/p NAYELI/BSO 2018 dropped bladder ands/p bladder sling, s/p R [...] flat ground knees give out. COVID vaccine [employer] 06/26/21. Feels safe at home. Has enough food, supplies and medications. Overall uncomfortable but happy with rheum care. = supportive care, start celebrex/notify office if not tolerated, OFF mobic/initially improved withmedication but now effect wore off, prn flexeril, see pain clinic for termite control technician pain recommendations, see ortho/pain clinic for termite control technician pain recommendations/injections, prn acetaminophen, start prn [...] to side effects OFF lyrica no response senior care pain recommendations per primary care provider/pain clinic [...] video & audio (virtual) or phone or [id number] patient care, completing clinical documentation, obtaining and/or [...] Dr.Renee Leora Gibbons DO documented in this encounterAv[facility]06-10-2022 Instructions* Patient Instructions* Gyale Washington MD - 12/12/2021 10:40 AM EDT [...] side effects OFF lyrica no response termite control 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 documented in this encounterAvita Health [facility]06-07-2022 Miscellaneous Notes* Telephone Encounter - Nataliya [...] with Dr Washington no schedule pulling for [place] only Hilda. Patient requesting call at [phone] Washington is still at [place]. Please advise. documented in this encounterAvita Health System [facility]05-17-2022 NotePAIN MANAGEMENT CONSULTATION CONSULTATION DATE: 11/18/2021 CHIEF COMPLAINT: Cervical pain. HISTORY OF PRESENT ILLNESS: This is a 51-year-old female who had, in the past, been seen by Dr. Brunner, Pain Management in [place], [place]. The patient had changed her insurances to [employer] and, as such, Dr. Brunner does not [...] like to proceed. CC: Kimberley Gibbons D.O. [facility] Signed and Approved by: DR RACHEL STOCK . 11/25/2021 12:22:00[facility]04-12-2022 Evaluation note* Encounter Date Diagnosis Assessment [...] nerve block in the future if needed. [employer] Other 12-28-2021 Evaluation note* Encounter Date Diagnosis [...] right hip to further evaluate her pain. [facility] Other 12-15-2021 Evaluation note* Encounter Date Diagnosis [...] (ICD-10 - G89.29) Continue medications as prescribed [facility] Other 11-11-2021 Evaluation note* Encounter Date Diagnosis [...] (ICD-10 - G89.29) Continue medications as prescribed [facility] Other 09-29-2021 Evaluation note* Encounter Date Diagnosis [...] injection under ultrasound guidance in the future. [facility] [email or web address] Other Evaluation note* Diagnosis Secondary osteoarthritis of [...] Chronic pain syndrome documented in this encounter [facility] HospitalEvaluation noteNo InformationNortKindred Healthcare [email or web address] Other Evaluation note* Diagnosis Secondary osteoarthritis of multiple sites- Primary Osteoarthrosis involving, or with mention of more than one site, but not specified as generalized, multiple sites Vitamin D deficiency Unspecified vitamin D deficiency Fibromyalgia Mylagia and myositis, unspecified [facility]* Diagnosis Secondary osteoarthritis of multiple sites Osteoarthrosis involving, or with mention of more than one site, but not specified as generalized, multiple sites documented in this encounter [facility] note* Diagnosis Chronic hip pain, bilateral Chronic left shoulder pain Pain in joint, shoulder region Chronic pain of both knees Bilateral hand pain Pain in limb documented in this encounter [facility] note* Diagnosis Secondary osteoarthritis of multiple sites Osteoarthrosis involving, or with mention of more than one site, but not specified as generalized, multiple sites Cervicalgia Chronic bilateral low back pain with bilateral sciatica documented in this encounter [facility] note* Diagnosis Flatulence, eructation and gas pain Flatulence, eructation, and gas pain Chronic GERD documented in this encounter [facility] note* Diagnosis GERD (gastroesophageal reflux disease)- Primary Esophageal reflux History of gastric ulcer Personal history of other diseases of digestive system History of Sloan's esophagus documented in this encounter [facility] note* Diagnosis Benign essential HTN ([facility])- Primary Coronary artery disease involving [place] coronary artery of [place] heart with angina pectoris ([facility]) Factor 5 Leiden mutation, heterozygous ([facility]) Bipolar 1 disorder ([facility]) Cigarette smoker Tobacco use disorder Mixed hyperlipidemia ([facility]) Mixed hyperlipidemia Type 2 diabetes mellitus without complication, without long-term current use of insulin ([facility]) Encounter for screening mammogram for malignant neoplasm of breast [facility]* Diagnosis Diabetic polyneuropathy associated with type 2 diabetes mellitus ([facility])- Primary Onychomycosis Dermatophytosis of nail Onychodystrophy Other specified disease of nail Pain in both feet [facility] this [facility]* Diagnosis Poorly controlled type 2 diabetes mellitus with neuropathy ([facility])- Primary Morbid (severe) obesity due to excess calories ([facility]) Body mass index (BMI) 38.0-38.9, adult Acute non-recurrent frontal sinusitis Herpes infection Herpes simplex without mention of complication Benign essential HTN ([facility]) Coronary artery disease involving [place] coronary artery of [place] heart with angina pectoris (CMS/HCC) Gastroesophageal reflux disease without esophagitis Esophageal reflux Cigarette smoker Tobacco use disorder Mixed hyperlipidemia (CMS/HCC) Mixed hyperlipidemia documented in this encounter [facility] HealthcareEvaluation note* Diagnosis Corns and callosities- Primary Diabetic polyneuropathy associated with type 2 diabetes mellitus (CMS/HCC) Left foot pain Pain in soft tissues of limb documented in this encounter [facility] HealthcareEvaluation note* Diagnosis Onset Date Resolution Status Admit Date Dyspepsia acute September 04 1:55pm [facility] Work Phone: Evaluation note* Diagnosis Annual wellness visit- Primary Nicotine abuse Cyst, dermoid, arm, right Type 2 diabetes mellitus without complication, without long-term current use of insulin Nicotine dependence, cigarettes, in remission Seasonal allergic rhinitis due to pollen Benign essential HTN (CMS/HCC) Factor 5 Leiden mutation, heterozygous (CMS/HCC) Mixed hyperlipidemia (CMS/HCC) Mixed hyperlipidemia documented in this encounter [facility] HealthcareEvaluation note* Diagnosis Type 2 diabetes mellitus without complication, without long-term current use of insulin documented in this encounter [facility] Healthcare[facility] note* Diagnosis Onychomycosis- Primary Dermatophytosis of nail Onychodystrophy Other specified disease of nail Corns and callosities Diabetic polyneuropathy associated with type 2 diabetes mellitus (HCC) Ingrown toenail Ingrowing nail Pain in both feet documented in this encounter [facility] HealthcareEvaluation note* Diagnosis Nicotine abuse- Primary Type 2 diabetes mellitus without complication, without long-term current use of insulin (HCC) Nausea and vomiting, unspecified vomiting type Memory loss Marijuana smoker documented in this encounter [facility] HealthcareHistory general Narrative - Reported* Type Description Date Medical History allergies Medical History factor 5 blood disorder Medical History anxiety Medical History depression Medical History bipolar Medical History lumbar DDD Surgical History back surgery 06/2021 Surgical History neck surgery 05/2021 Hospitalization History see above [facility] Other History general Narrative - Reported* Type Description Date Medical History allergies Medical History factor 5 blood disorder Medical History anxiety Medical History depression Medical History bipolar Medical History lumbar DDD Medical History osteoarthritis of multiple joint s Surgical History back surgery 06/2021 Surgical History neck surgery 05/2021 Hospitalization History see above [facility] Other History of Present illness NarrativePatient has continued intermittent pain symptoms in her right shoulder she is remotely status post rotator cuff repair she had a follow-up MRI scan recently she would like to review with me today. She had a subacromial injection but it did not resolve all of her symptoms.[facility] Work Phone: reason for referral (narrative)* Diagnostic Procedure Only (Routine) - Closed Specialty Diagnoses / Procedures Referred By Ireneac t Referred To Contact XR IMAGING Diagnoses Bilateral hand pain Procedures XR HAND GENERAL 3V PA/LAT/OBL BILATERAL X-RAY HAND MINIMUM 3 VIEWS Gayle Washington MD [address] [place] [address] Xr Imaging Referral ID Status Reason Start Date Expiration Date V isits Requested Visits Authorized [id number] Closed Auto-Generate d Referral 06/04/2021 07/04/2022 1 1 * Diagnostic Procedure Only (Routine) - Closed Specialty Diagnoses / Procedures Referred By Margarita vanegas Referred To Contact XR IMAGING Diagnoses Chronic pain of both knees Procedures XR KNEE GENERAL 4V AP BOTH/PA BOTH/LAT/MERC BILATERAL KNEE AP-WGT/LAT/MERCHANT Gayle Washington MD [address] [place] [address] Xr Imaging Referral ID Status Reason Start Date Expiration Date V isits Requested Visits Authorized [id number] Closed Auto-Generate d Referral 06/04/2021 07/04/2022 1 1 * Diagnostic Procedure Only (Routine) - Closed Specialty Diagnoses / Procedures Referred By Contac t Referred To Contact XR IMAGING Diagnoses Chronic left shoulder pain Procedures XR SHOULDER GENERAL 3V OR MORE AP/TRUE AP/OTHER LEFT X-RAY SHOULDER COMPLET MIN 2 VIEWS Gayle Washington MD [address] [address] Xr Imaging Referral ID Status Reason Start Date Expiration Date V isits Requested Visits Authorized [id number] Closed Auto-Generate d Referral 06/04/2021 07/04/2022 1 1 * Diagnostic Procedure Only (Routine) - Closed Specialty Diagnoses / Procedures Referred By Contac t Referred To Contact XR IMAGING Diagnoses Chronic hip pain, bilateral Procedures XR HIP BILATERAL 5V PEL/AP/LAT EACH HIP RADEX HIPS BILATERAL WITH PELVIS MINIMUM 5 VIEWS Gayle Washington MD [address] [place] [address] Xr Imaging Referral ID Status Reason Start Date Expiration Date V isits Requested Visits Authorized [id number] Closed Auto-Generate d Referral 06/04/2021 07/04/2022 1 1 [facility] for visit Narrative* Diagnostic Procedure Only (Routine) - Closed Specialty Diagnoses / Procedures Referred By Contac t Referred To Contact XR IMAGING Diagnoses Bilateral hand pain Procedures XR HAND GENERAL 3V PA/LAT/OBL BILATERAL X-RAY HAND MINIMUM 3 VIEWS Gayle Washington MD [address] [place] [address] Xr Imaging Referral ID Status Reason Start Date Expiration Date V isits Requested Visits Authorized [id number] Closed Auto-Generate d Referral 06/04/2021 07/04/2022 1 1 [facility] Summary Purpose Family History Relationship Condition Age at Onset Recorded Date/T sarika father Diabetes mellitus Unknown Hypertension Unknown mother Diabetes mellitus Unknown Advance Directives Latest Code Status on File Code Status Date [...] left Procedures CONSULT TO ORTHOPAEDICS OFFICE/OUTPATIENT [facility] MDM 60-74 MINUTES Gayle Washington MD [address] [place] [address] Referral ID Status Reason Start Date Expiration Date Visits Requested Visits Authorized [id number] Pending Review PCP Requested Referral 12/12/2021 12/12/2022 [...] 2024 1:55pm GERD (gastroesophageal reflux disease) M ay 2024 10:43am Additional Source Comments INFORMATION SOURCE (unrecogn ized section and content) DATE CREATED AUTHOR 06/20/2020 [facility] DATE CREATED AUTHOR AUTHOR'S ORGANIZ ATION 06/27/2020 [facility] DATE CREATED AUTHOR AUTHOR'S ORGANIZ ATION 12/01/2020 [facility] DATE CREATED AUTHOR AUTHOR'S ORGANIZ ATION 02/23/2021 [facility] DATE CREATED AUTHOR AUTHOR'S ORGANIZ ATION 02/23/2021 [facility] DATE CREATED AUTHOR AUTHOR'S ORGANIZ ATION 12/26/2021 [facility] DATE CREATED AUTHOR AUTHOR'S ORGANIZ ATION 07/02/2022 [facility] Special[facility] DATE CREATED AUTHOR AUTHOR'S ORGANIZ ATION 10/08/2022 [facility] DATE CREATED AUTHOR AUTHOR'S ORGANIZ ATION 10/20/2022 [facility] DATE CREATED AUTHOR AUTHOR'S ORGANIZ ATION 06/16/2024 [facility] DATE CREATED AUTHOR AUTHOR'S ORGANIZ ATION 01/16/2025 [facility] DATE CREATED AUTHOR AUTHOR'S ORGANIZ ATION 02/15/2025 [facility] Specialists [facility] DATE CREATED AUTHOR AUTHOR'S ORGANIZ ATION 02/25/2025 [facility] Source Comments (unrecognize d section and content) In the event this informatio n is protected by the Federal Confidentiality of Alcohol and Drug Abuse Patient Records regulations: The Federal rules restrict any use of the information to criminally investigate or prosecute any alcohol or drug abuse patient.[facility] the event this information is protected by the Federal Confidentiality of Alcohol and Drug Abuse Patient Records regulations: The Federal rules restrict any use of the information to criminally investigate or prosecute any alcohol or drug abuse patient.[facility] the event this information is protected by the Federal Confidentiality of Alcohol and Drug Abuse Patient Records regulations: The Federal rules restrict any use of the information to criminally investigate or prosecute any alcohol or drug abuse patient.[facility] the event this information is protected by the Federal Confidentiality of Alcohol and Drug Abuse Patient Records regulations: The Federal rules restrict any use of the information to criminally investigate or prosecute any alcohol or drug abuse patient.[facility] the event this information is protected by the Federal Confidentiality of Alcohol and Drug Abuse Patient Records regulations: The Federal rules restrict any use of the information to criminally investigate or prosecute any alcohol or drug abuse patient.[facility] the event this information is protected by the Federal Confidentiality of Alcohol and Drug Abuse Patient Records regulations: The Federal rules restrict any use of the information to criminally investigate or prosecute any alcohol or drug abuse patient.[facility] Reason for Visit (unrecogniz ed section and content) Reason Comments Follow Up Pain ongoing generalized pain. Specialty Diagnoses / Procedures Referred By Contac t Referred To Contact RHEUMATOLOGY Diagnoses Follow Up Procedures OFFICE/OUTPATIENT ESTABLISHED MOD MDM 30-39 MIN Follow Up Gayle Washington MD [address] [place] [address] [facility] [address] [place] [address] Referral ID Status Reason Start Date Expiration Date Visits Requested Visits Authorized [id number] Waiting for Response OON/Self Pay Override Patient cleared - OON Required Payment Collected 12/08/2021 03/08/2022 1 1 Reason Comments Appointment Reason Comments Results Specialty Diagnoses / Procedures Referred By Contac t Referred To Contact Diagnoses GERD (gastroesophageal reflux disease) GERD (gastroesophageal reflux disease) [K21.9] Procedures LA ESOPHAGOGASTRODUODENOSCOPY TRANSORAL DIAGNOSTIC LA EGD TRANSORAL BIOPSY SINGLE/MULTIPLE LA EGD BALLOON DILATION ESOPHAGUS <30 MM DIAM ESOPHAGOGASTRODUODENOSCOPY Maximiliano You MD [address] [place] [address] [facility] [address] [place] [address] Referral ID Status Reason Start Date Expiration Date Visits Re quested Visits Authorized [id number] 1 1 Reason Onset Date Comments dsme [...] 12/04/2024 BS 162 A1C 9.3. SS 7.5 Reason Comments Diabetes Care Teams (unrecognized sec tion and content) Boatwright Relationship Specialty Start Date End Date Kimberley Gibbons, DO [address] [place] [address] PCP - General Family Practice 06/04/21 Boatwright Relationship Specialty Start Date End Date Kimberley Gibbons, [address] [place] [address] PCP - General Family Practice 06/04/21 Boatwright Relationship Specialty Start Date End Date Kimberley Gibbons, [address] [place] [address] PCP - General Family Medicine 06/04/21 Boatwright Relationship Specialty Start Date End Date Kimberley Gibbons DO [address] [place] [address] PCP - General Family Medicine 06/04/21 Boatwright Relationship Specialty Start Date End Date Kimberley Gibbons DO [address] [place] [address] PCP - General Family Medicine 06/04/21 Boatwright Relationship Specialty Start Date End Date Kimberley Gibbons DO [address] [place] [address] PCP - General Family Medicine 06/04/21 Boatwright Relationship Specialty Start Date End Date Hazel Velásquez MD [address] [place] [address] PCP - General Family Medicine 10/28/23 Boatwright Relationship Specialty Start Date End Date Hazel Velásquez MD [address] [place] [address] PCP - General Family Medicine 10/28/23 Boatwright Relationship Specialty Start Date End Date Hazel Velásquez MD [address] [place] [address] PCP - General Family Medicine 10/28/23 Boatwright Relationship Specialty Start Date End Date Hazel Velásquez MD [address] [place] [address] PCP - General Family Medicine 10/28/23 Boatwright Relationship Specialty Start Date End Date Hazel Velásquez MD [address] [place] [address] PCP - General Family Medicine 10/28/23 Boatwright Relationship Specialty Start Date End Date Hazel Velásquez MD [address] [place] [address] PCP - General Family Medicine 10/28/23 Boatwright Relationship Specialty Start Date End Date Hazel Velásquez MD [address] [place] [address] PCP - General Family Medicine 10/28/23 Boatwright Relationship Specialty Start Date End Date Hazel Velásquez MD [address] [place] [address] PCP - General Family Medicine 10/28/23 Daphney Hubbard MD [address] [place] [address] PCP - Medical Ennice MA 07/05/2407/04 Boatwright Relationship Specialty Start Date End Date Hazel Velásquez MD [address] [place] [address] PCP - General Family Medicine 10/28/23 Daphney Hubbard MD [address] [place] [address] PCP - Medical Ennice MA 07/05/2407/04 Team Status: Active Member Role Status Dates NON STAFF Primary Care Provider Active Team Status: Inactive Member Role Status Dates Marc Rhoades APRN Attending Provider Active Start: September 04, 2024 End: September 04, 2024 Hazel Velásquez MD Referring Provider A ctive Start: September 04, 2024 End: September 04, 2024 NON STAFF Primary Care Provider Active Start: September 04, 2024 End: September 04, 2024 Boatwright Relationship Specialty Start Date End Date Hazel Velásquez MD [address] [place] [address] PCP - General Family Medicine 10/28/23 Daphney Hubbard MD [address] [place] [address] PCP - Medical Ennice MA 07/05/2407/04 Boatwright Relationship Specialty Start Date End Date Hazel Velásquez MD [address] [place] [address] PCP - General Family Medicine 10/28/23 Daphney Hubbard MD [address] [place] [address] PCP - Medical Ennice MA 07/05/2407/04 Boatwright Relationship Specialty Start Date End Date Hazel Velásquez MD [address] [place] [address] PCP - General Family Medicine 10/28/23 Daphney Hubbard MD [address] [place] [address] PCP - Medical Ennice MA 07/05/2407/04 Boatwright Relationship Specialty Start Date End Date Hazel Velásquez MD [address] [place] [address] PCP - General Family Medicine 10/28/23 Daphney Hubbard MD [address] [place] [address] PCP - Medical Ennice MA 07/05/2407/04 Boatwright Relationship Specialty Start Date End Date Hazel Velásquez MD [address] [facility] [place] [address] PCP - General Family Medicine 10/28/23 Daphney Hubbard MD [address] [facility] [place] [address] PCP - Medical Ennice MA 07/05/2407/04 Team Status: Inactive Member Role Status Dates NON STAFF Primary Care Provider Active Start: November 23, 2024 End: November 23, 2024 Marc Rhoades APRN Attending Provider Active Start: November 23, 2024 End: November 23, 2024 Boatwright Relationship Specialty Start Date End Date Hazel Velásquez MD [address] [facility] [place] [address] PCP - General Family Medicine 10/28/23 Daphney Hubbard MD [address] [facility] [place] [address] PCP - Medical Ennice MA 07/05/2407/04 Boatwright Relationship Specialty Start Date End Date Hazel Velásquez MD [address] [facility] [place] [address] PCP - General Family Medicine 10/28/23 Daphney Hubbard MD [address] [facility] [place] [address] PCP - Medical Ennice MA 07/05/2407/04 Scheduled Active and Recently Administ ered Medications (unrecognized section and content) Medication Order 06/07/2024 06/08/202406/09/2024 famotidine (PEPCID) 20 mg in sodium chloride [...] BE BASED ON THE PRIMARY CLINICAL RECORDS. [facility]. provides no warranty or guarantee of the accuracy or completeness of information in this document.
--- NOTE | 2025-03-01 11:14 | PM.CN ---
Consult Note: HPI Data of Consult Patient: known to practice within the last 3 years Requesting Physician: Stephanie Mike NP Primary Care Provider: Non-Staff Physician, MD Consult Narrative Reason for consult: low back pain Narrative: Lizbeth Garcia a pleasant 54 year old female presents for evaluation and management of chronic low back pain secondary to lumbar spondylosis, L5-S1 fusion, lumbar stenosis with NC. notes low back pain 7/10 increasing to 10/10 aching throbbing. pain increased with lifting, twisting, ADLs. mild improvement with ice. has failed to benefit from greater than 6 weeks of PT/HEP, heat, ice, tylenol, NSAIDs. currently utilizing flexeril 10mg bid and gabapentin 300mg TID without side effects. on 02/19/25 underwent bilateral L3-4 L4-5 MBB #1 with >80% improvement in pain and functional ability for 2 hours, preop pain up to 10/10 post op pain 1-2/10, however significant increased low back pain after doing yardwork wednesday afternoon. cc:: CC: Stephanie Mike NP Review of Systems ROS Musculoskeletal Reports: back pain; Denies: extremity pain [facility] Medical History Former cigarette smoker ?Z87.891 - Personal history of nicotine dependence (ICD-10) Heartburn ?R12 - Heartburn (ICD-10) Acid reflux ?K21.9 - Gastro-esophageal reflux disease without esophagitis (ICD-10) Osteoarthritis ?M19.90 - Unspecified osteoarthritis, unspecified site (ICD-10) Low back pain ?M54.50 - Low back pain, unspecified (ICD-10) Factor 5 Leiden mutation, heterozygous ?D68.51 - Activated protein C resistance (ICD-10) Anxiety ?F41.9 - Anxiety disorder, unspecified (ICD-10) Obesity ?E66.9 - Obesity, unspecified (ICD-10) Diabetes ?E11.9 - Type 2 diabetes mellitus without complications (ICD-10) SOB (shortness of breath) ?R06.02 - Shortness of breath (ICD-10) High cholesterol ?E78.00 - Pure hypercholesterolemia, unspecified (ICD-10) Hypertension ?I10 - Essential (primary) hypertension (ICD-10) Irregular heart beat ?I49.9 - Cardiac arrhythmia, unspecified (ICD-10) Angina at rest ?I20.89 - Other forms of angina pectoris (ICD-10) Surgical History H/O arthroscopic knee surgery ?Z98.890 - Other specified postprocedural states (ICD-10) H/O lumbosacral spine surgery ?Z98.890 - Other specified postprocedural states (ICD-10) H/O cervical spine surgery ?Z98.890 - Other specified postprocedural states (ICD-10) H/O arthroscopy of shoulder ?Z98.890 - Other specified postprocedural states (ICD-10) H/O carpal tunnel repair ?Z98.890 - Other specified postprocedural states (ICD-10) H/O: hysterectomy ?Z90.710 - Acquired absence of both cervix and uterus (ICD-10) Meds Home Medications and Allergies Home Medications ?Medication ?Instructions ?Recorded ?Confirmed ?Type B-complex with vitamin C 1 tab PO DAILY 08/26/23 02/19/25 History acetaminophen 500 mg tablet 1,500 mg PO DAILY PRN pain 08/26/23 02/19/25 History (Tylenol Extra Strength) amlodipine 5 mg tablet 5 mg PO DAILY 08/26/23 02/19/25 History aspirin 81 mg capsule 81 mg PO DAILY 08/26/23 02/19/25 History atorvastatin 80 mg tablet 80 mg PO DAILY 08/26/23 02/19/25 History cholecalciferol (vitamin D3) 50 50 mcg PO DAILY 08/26/23 02/19/25 History mcg (2,000 unit) capsule clonazepam 0.5 mg tablet 0.5 mg PO BID 08/26/23 02/19/25 History cyclobenzaprine 10 mg tablet 10 mg PO BID 08/26/23 02/19/25 History desvenlafaxine succinate 100 mg 100 mg PO DAILY 08/26/23 02/19/25 History tablet,extended release 24 hr (Pristiq) ezetimibe 10 mg tablet 10 mg PO DAILY 08/26/23 02/19/25 History lamotrigine 300 mg tablet,extended 300 mg PO DAILY 08/26/23 02/19/25 History release 24 hr metoprolol succinate 25 mg 25 mg PO DAILY 08/26/23 02/19/25 History tablet,extended release 24 hr quetiapine 200 mg tablet 200 mg PO DAILY 08/26/23 02/19/25 History apixaban 2.5 mg tablet (Eliquis) 2.5 mg PO BID 11/06/24 02/19/25 History metformin 500 mg tablet 500 mg PO BID 11/06/24 02/19/25 History semaglutide 0.25 mg or 0.5 mg (2 0.5 mg subcut QWEEK 11/06/24 02/19/25 History mg/3 mL) subcutaneous pen injector (Ozempic) gabapentin 300 mg capsule 300 mg PO TID #90 caps 01/02/25 02/19/25 Rx Allergies Allergy/AdvReac Type Severity Reaction Status Date / Time ibuprofen AdvReac Mild Gastrointestinal Verified 02/19/25 10:24 Upset tramadol AdvReac Mild Gastrointestinal Verified 02/19/25 10:24 Upset Exam Constitutional Documenting provider has reviewed patient's vital signs: yes Common normals: no apparent distress, oriented x3, healthy appearing, alert and well nourished General appearance: cooperative HENNM Common normals: normocephalic, hearing grossly normal bilaterally and moist oral mucous membranes Head and scalp: normocephalic Eye Common normals: PERRL Pupil: PERRL Neck & C-Spine Common normals: full ROM General: normal visual inspection Chest Common normals: inspection of chest normal Respiratory Common normals: normal respiratory effort, no retractions and no use of accessory muscles Back & Pelvis Lumbar spine/lower back: pain with ROM, lumbar spinal tenderness, paraspinal muscle tenderness and paraspinal muscle spasm Lumbar paraspinal muscle spasm: bilateral Bilateral lumbar paraspinal muscle spasm: L3 and L4; straight leg raise positive Sacroiliac joints: SI joints normal; SI joints not abnormal Other: new onset myofascial trigger points noted to bilateral latissimus dorsi strength 5/5 in BLE sensation intact BLE Extremity Common normals: normal to inspection and full ROM Neuro Common normals: oriented x3 Sensorium/orientation: alert Motor exam: no movement abnormalities noted Psych Common normals: mental status grossly normal, thought process normal, cooperative, affect normal, speech normal and activity/motor behavior normal Speech: normal speech Thought process: normal thought process Results Additional Findings Additional findings: If on a controlled substance or opioids, I have checked an [place] report on this patient and there are no aberrancies noted in the prescribing history.??If on a controlled substance or opioid a drug screen was completed and reviewed within the last year, and if there has not been a drug screen completed we ordered one today to monitor higher risk, state monitored pain medication use. As part of providing excellent, safe, comprehensive care, the following was completed at our patient's visit: 1. A medication reconciliation and review to ensure accurate knowledge of current/active medications, including asking our patients to inform us about any neod-bsu-kigyqof medications or herbal remedies/nutritional supplements/alternative remedies. 2. A review to specifically ensure our patients have had annual screening for screening for depression, screening for tobacco use, and screening for unhealthy alcohol use. For concerning screenings had a discussion with the patient, provided patient education, and recommended follow-up with primary care provider when appropriate. If patient noted with a risk of falling, they received education on strength, gait, and balance training to prevent future risk of falling. Portions of this note may have been carried over from the previous visit and updated as appropriate. Please note this office utilizes paper charting in addition to the electronic medical record. A list of current medications, vitals, and PMH is available there as the clinical staff outside of myself do not have access to [employer] charting during the clinic day operations. As part of providing quality comprehensive care the current medications, vitals, and PMH were reviewed in the paper chart. Assessment and Plan Assessment and Plan (1) Myalgia, other site: Assessment and Plan: procedure: bilateral latissimus dorsi trigger point injection for new onset trigger points in the last 1 week that has failed to respond to heat/ice, tylenol, nsaids, flexeril Medications: Bupivacaine 0.25% 4cc, kenalog 40mg I explained the details of the procedure to the patient including the risks, benefits, and alternatives.? We had an informed discussion.? The patient verbalized understanding and signed the consent form.? All questions were answered appropriately.? A time-out was performed.? After obtaining a comfortable seated position, the skin overlying the left neck was prepped with alcohol 3 times. The needle was inserted in a sterile manner through the skin towards the palpated trigger point areas, 3 on each side of the lumbar spine. The contents of the syringe were gently injected without any resistance 1cc at a time into the appropriate trigger point.? The needle was removed and a sterile bandage was applied. The patient tolerated the procedure well. She noted significant improvement once completed. (2) Lumbar spondylosis: Assessment and Plan: The patient has had over 3 months of moderate to severe low back pain with functional impairment and inadequate response to conservative care including NSAIDS (unless there are contraindication such as concurrent blood thinners), multiple oral or topical pain medications, and home exercise program/physical therapy.? Patient has completed >6 weeks of guided home exercise program and/or formal physical therapy program without relief of their symptoms.? I have reviewed the imaging of the lumbar spine and no red flags were identified.? The Oswestry Disability Index was completed, and the patient scored a 58%.? The patient noted the following:?? moderate to severe pain with ADLs, sitting, standing, walking, social life, travel, sleep (3) Failed back syndrome: (4) Sacroiliitis: Plan bilateral L3-4 L4-5 facet medial branch block #2 working towards RFA for facet mediated low back pain under fluoroscopy trigger point completed as noted above continue gabapentin 300mg TID increase flexeril 10mg tid prn pain/spasms encouraged TENS unit continue NNCP, marijuana and benzo use f/u after each injection
== END 2025-03-01 10:49 | disposition home or self-care (01) ==
LOC: PM 10:48
PROVIDERS: Visit Provider Nurse Practitioner
DX: M47.816 Spondylosis without myelopathy or radiculopathy, lumbar region (principal); M46.1 Sacroiliitis, not elsewhere classified; M96.1 Postlaminectomy syndrome, not elsewhere classified; R00.2 Palpitations; I49.1 Atrial premature depolarization; I34.0 Nonrheumatic mitral (valve) insufficiency; M79.10 Myalgia, unspecified site
CPT/HCPCS: 20552; 93306; J0665; J1010

== ENCOUNTER 2025-03-19 11:50 | Day surgery (SDC) | payer MEDICARE, SELFPAY ==
--- OUTSIDE RECORDS SUMMARY | 2025-03-19 11:55 | XMS_ITS | Encounter Summary ---
Author Organization [facility] Address [address], [address] [place] [address] Care Team Providers Care Fiction And Nonfiction Prose Writer Name Role Phone Mark Tomas MD Primary Care Provider Unav ailable Reason for Visit * Reason Comments Medication Refill Encounter Details Date Type Department Care Team (Late st Contact Info) Description 04/24/2019 Refill [facility] [address], [address] [place] [address] Femi Rosario MD Medication Refill Social History [...] unspecified documented in this encounter Care Teams Fiction And Nonfiction Prose Writer Relationship Specialty Start Date End Date Mark Tomas MD PCP - General Family Medicine 04/12/20 09/12/23 documented as of this encounter
--- OUTSIDE RECORDS SUMMARY | 2025-03-19 11:55 | XMS_ITS | Encounter Summary ---
Author Organization [facility] Address [address] [place] [address] Care Team Providers Care Foil Spinner Name Role Phone Hazel Molina MD Primary Care Provider [phone] Daphney Hubbard MD Unavailable Reason for Visit * Reason Comments Med Refill Encounter Details Date Type Department Care Team (Late st Contact Info) Description 03/10/2025 Refill [facility] Family Medicine [address] [place] [address] Hazel Molina MD [address] [place] [address] Type 2 diabetes mellitus without complication, without long-term current use of insulin (HCC) Social History Tobacco Use Types Packs/Day Years [...] 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 Not on file N ot on file documented as of this encounter Plan of Treatment Upcoming Encounters Date Type Department Care Team (Late st Contact Info) Description 04/06/2025 11:15 AM EDT Office Visit [facility] [address] [place] [id number] John Gauthier, DPM [address] [place] [address] 05/17/2025 10:20 AM EST Office Visit [facility] [address] [place] [id number] Hazel Molina MD [address] [facility] [place] [address] documented as of this encounter Visit Diagnoses Diagnosis Type 2 diabetes mellitus without complication, without long-term current use of insulin (HCC) documented in this encounter Additional Health Concerns Assessment Noted Time PHQ-9 Depression Total Score: 6 11/08/19 25 10:00 AM EDT documented as of this encounter Care Teams Foil Spinner Relationship Specialty Start Date End Date Hazel Molina MD [address] [facility] [place] [address] PCP - General Family Medicine 10/28/23 Daphney Hubbard MD [address] [facility] [place] [address] PCP - Medical [place] MA 07/05/2407/04 documented as of this encounter
--- OUTSIDE RECORDS SUMMARY | 2025-03-19 11:55 | XMS_ITS | Encounter Summary ---
Author Organization [facility] Address [address] [place] [address] Care Team Providers Care Child And Family Therapist Name Role Phone Kimberley Morgan DO Primary Care Provider [phone] Daphney Hubbard MD Primary Care Provider Reason for Visit * Reason Comments Med Refill Encounter Details Date Type Department Care Team (Late st Contact Info) Description 07/30/2023 Refill [facility] Cardiology [address] [place] [address] Elodia Kulkarni, DIRECTOR OF SALES MARKETING [address] [place] [facility] [place] [address] Mixed hyperlipidemia; Coronary artery disease involving [place] coronary artery of [place] heart without angina pectoris Social History Tobacco [...] 04/10/2025 2:45 PM EDT Office Visit [facility] [address] [place] [address] Esteban Estrada MD [address] [place] [address] documented as of this encounter Visit Diagnoses Diagnosis Mixed hyperlipidemia Coronary artery disease involving [place] coronary artery of [place] heart without angina pectoris documented in this encounter Additional Health Concerns Assessment Noted Time PHQ-9 Depression Total Score: 12 023 1:26 PM EDT documented as of this encounter Care Teams Child And Family Therapist Relationship Specialty Start Date End Date Kimberley Morgan DO [address] [facility] [place] [address] PCP - General 11/16/22 05/03/24 Daphney Hubbard MD [address] [facility] [address] [place], [place] [address] PCP - General Family Medicine 05/04/24 documented as of this encounter
--- OUTSIDE RECORDS SUMMARY | 2025-03-19 11:55 | XMS_ITS | Encounter Summary ---
Author Organization [employer] Address [id number] [address] [place] [address] Care Team Providers Care Calendering Supervisor Name Role Phone CathyGordonee Rinku BELLO Primary Care Provider Unavaila ble Encounter Details Date Type Department Care Team (Late st Contact Info) Description 06/06/2020 Telephone [facility] [address] [place] [address] Dennise Jernigan RN Social History Tobacco Use [...] fusion Date of surgery: 06/25/20 Surgery location: [facility] Type of anesthesia: not mentioned On a blood thinner?: no Indication? On an antiplatelet?: no Stent?Type? When placed? Their preference of how long to hold blood thinners/antiplatelet: History of CVA/TIA, DVT/PE? ATTN: Do they need any additional info faxed(such as office note, ekg, testing, Etc? Upon your return please address pre-op clearance th sl Dennise Jernigan RN 06/06/20 [id number] * Telephone Encounter - Samson Baez DO - 06/06/2020 3:17 PM EST Low risk pt she is no blood thinner.. documented in this encounter Plan of Treatment Not on file documented as of this encounter Visit Diagnoses Not on filedocumented in this encounter Additional Health Concerns Infection Onset Date Last Indicated Resolved Time MRSA Comment:abdominal boil Infection converted via [employer] from [employer] system information 01/18/2009 01/18/2009 02/28/2021 11:19 PM EDT COVID-19 Rule-Out 11/30/2020 11/30/2020 11/30/2020 9:28 PM EDT documented as of this encounter Care Teams Calendering Supervisor Relationship Specialty Start Date End Date Kimberley Morgan DO PCP - General Family Medicine 11/26/20 documented as of this encounter
--- OUTSIDE RECORDS SUMMARY | 2025-03-19 11:55 | XMS_ITS | Encounter Summary ---
Author Organization [facility] Address [address] [place] [address] Care Team Providers Care Document Preparation Specialist Name Role Phone Kimberley Morgan Primary Care Provider Unav ailable Source Comments In the event this information is protected by the Federal Confidentiality of Alcohol and Drug AbusePatient Records regulations: The Federal rules restrict any use of the information to criminally investigate or prosecute any alcohol or drug abuse patient.[facility] Encounter Details Date Type Department Care Team (Late st Contact Info) Description 12/08/2021 Patient Msg Rheumatology [address] [place] [address] Jailyn Cole MD [address] [place] [address] Request an Appointment Social History [...] ot on file 12/12/2021 Data from: https://www.neighborhoodatlas.medicine.[facility].edu/. Last address used for calculation [address] [place] [address] 12/12/2021 Comments Unknown Sex and Gender [...] on filedocumented in this encounter Care Teams Document Preparation Specialist Relationship Specialty Start Date End Date Kimberley Morgan DO PCP - General Family Medicine 06/04/21 documented as of this encounter
--- OUTSIDE RECORDS SUMMARY | 2025-03-19 11:55 | XMS_ITS | Clinical Summary ---
Author Organization [employer] Address [id number] [address] [place] [address] Care Team Providers Care Transaction Processor Name Role Phone Kimberley Morgan DO Primary [...] Take 1 tablet by mouth daily. Active msnvspqu-npgr-T A-calcium &mins (THERAGRAN-M) 9 mg iron-400 mcg tablet Take 1 tablet by mouth daily. Active bdndk-kz-0-dha- tbp-ajqogjw-vic 1,768-909-61-80 mg capsule Take by mouth. Fish oil [...] 04/06/2019, 05/15/2016 Medical Devices Implanted Type Area Performing Arts Road Manager Device Identifier Shelf Expiration Date Model / Serial / Lot Incv/Swivelock 4.75 Use [id number] - Sna - [id number] Implanted:Qty: 1 on 06/05/2019 by Yovani Owusu DO at [facility] [place] Right: Shoulder Arthrex 11/01/2020 [id number] / [id number] / [id number] Insurance [employer] Care Teams Transaction Processor Relationship Specialty Start Date End Date Kimberley Morgan DO PCP - General Family Medicine 5/25/21
--- OUTSIDE RECORDS SUMMARY | 2025-03-19 11:55 | XMS_ITS | Encounter Summary ---
Author Organization Address [address] [place] [address] Care Team Providers Care Aircraft Engineer Name Role Phone Kimberley Morgan Primary Care Provider Unav ailable Source Comments In the event this information is protected by the Federal Confidentiality of Alcohol and Drug AbusePatient Records regulations: The Federal rules restrict any use of the information to criminally investigate or prosecute any alcohol or drug abuse patient. Encounter Details Date Type Department Care Team (Late st Contact Info) Description 12/15/2021 Get Medical Advice Rheumatology [address] [place], [place] [phone] Jailyn Cole MD [address] [place] [address] Records Social History Tobacco Use [...] N ot on file 12/12/2021 Data from: https://www.neighborhoodatlas.medicine.[facility].edu/. Last address used for calculation [address] [place] [address] 12/12/2021 Comments Unknown Sex and Gender [...] I believe she is referencing her previous Neitui message and is requesting that fibromyalgia be added to her diagnosis list. Chronic pain syndrome is already listed as diagnosis. documented in this encounter Plan of Treatment Not on file documented as of this encounter Visit Diagnoses Not on filedocumented in this encounter Care Teams Aircraft Engineer Relationship Specialty Start Date End Date Kimberley Morgan DO PCP - General Family Medicine 06/04/21 documented as of this encounter
--- OUTSIDE RECORDS SUMMARY | 2025-03-19 11:55 | XMS_ITS | Encounter Summary ---
Author Organization [facility] Address [address] [place] [address] Care Team Providers Care Garden Labourer Name Role Phone Kimberley Morgan Primary Care Provider Unav ailable Source Comments In the event this information is protected by the Federal Confidentiality of Alcohol and Drug AbusePatient Records regulations: The Federal rules restrict any use of the information to criminally investigate or prosecute any alcohol or drug abuse patient.[facility] Encounter Details Date Type Department Care Team (Late st Contact Info) Description 05/13/2022 Get Medical Advice Rheumatology [address] [place], [place] [phone] Jailyn Cole MD [address] [place] [address] Certification Social History Tobacco Use [...] N ot on file 12/12/2021 Data from: https://www.neighborhoodatlas.medicine.[facility].edu/. Last address used for calculation [address] [place] [address] 12/12/2021 Comments Unknown Sex and Gender Information Value Date Recorded Sex Assigned at Not on file Legal Sex Female 10:38 AM EDT Gender Identity Not on file Sexual Orientation Not on file documented as of this encounter Miscellaneous Notes * Telephone Encounter - Jailyn Cole MD - 05/15/2022 6:03 AM EST Form completed. Please process accordingly. Scan copy into [employer] Notify patient when above completed but form likely needs to be completed by original disability physician/team. Thank you. * Telephone Encounter - Nadine Bruce LPN - 05/14/2022 7:12 AM EST Form placed on your desk for review/completion. documented in this encounter Plan of Treatment Not on file documented as of this encounter Visit Diagnoses Not on filedocumented in this encounter Care Teams Garden Labourer Relationship Specialty Start Date End Date Kimberley Morgan DO PCP - General Family Medicine 06/04/21 documented as of this encounter
--- OUTSIDE RECORDS SUMMARY | 2025-03-19 11:55 | XMS_ITS | Encounter Summary ---
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 Not on file N ot on file documented as of this encounter Plan of Treatment Upcoming Encounters Date Type Department Care Team (Late st Contact Info) Description 04/06/2025 11:15 AM EDT [facility] [address] [place] [address] John Gauthier, DPM [address] [place] [address] 05/17/2025 10:20 AM EST Office Visit [facility] [address] [place] [address] Hazel Molina MD [address] [place], [place] [phone] documented as of this encounter Procedures Procedure [...] documented as of this encounter Care Teams Fire Dispatcher Relationship Specialty Start Date End Date Hazel Molina MD [address] [facility] [place], [place] [phone] PCP - General Family Medicine 10/28/23 Daphney Hubbard MD [address] [place] [address] PCP - Medical [place] AMBER 07/05/2407/04 documented as of this encounter
--- OUTSIDE RECORDS SUMMARY | 2025-03-19 11:55 | XMS_ITS | Encounter Summary ---
Author Organization [facility] Address [address] [place] [address] Care Team Providers Care Group Controller Name Role Phone Kimberley Morgan Primary Care Provider Unav ailable Source Comments In the event this information is protected by the Federal Confidentiality of Alcohol and Drug AbusePatient Records regulations: The Federal rules restrict any use of the information to criminally investigate or prosecute any alcohol or drug abuse patient.[facility] Encounter Details Date Type Department Care Team (Late st Contact Info) Description 12/15/2021 Get Medical Advice Rheumatology [address] [place], [place] [phone] Jailyn Cole MD [address] [place] [address] Fibromyalgia Social History Tobacco Use [...] N ot on file 12/12/2021 Data from: https://www.neighborhoodatlas.medicine.[facility].edu/. Last address used for calculation [address] [place] [address] 12/12/2021 Comments Unknown Sex and Gender [...] on filedocumented in this encounter Care Teams Group Controller Relationship Specialty Start Date End Date Kimberley Morgan DO PCP - General Family Medicine 06/04/21 documented as of this encounter
--- OUTSIDE RECORDS SUMMARY | 2025-03-19 11:55 | XMS_ITS | Encounter Summary ---
Author Organization [facility] Address [address] [place] [address] Care Team Providers Care Cushion Mat Maker Name Role Phone Kimberley Morgan Primary Care Provider Unav ailable Source Comments In the event this information is protected by the Federal Confidentiality of Alcohol and Drug AbusePatient Records regulations: The Federal rules restrict any use of the information to criminally investigate or prosecute any alcohol or drug abuse patient.[facility] Encounter Details Date Type Department Care Team (Late st Contact Info) Description 06/12/2021 Get Medical Advice Rheumatology [address] [place], [place] [phone] Jailyn Cole MD [address] [place] [address] [facility] Social History Tobacco Use Types Packs/Day [...] on filedocumented in this encounter Care Teams Cushion Mat Maker Relationship Specialty Start Date End Date Kimberley Morgan DO PCP - General Family Medicine 06/04/21 documented as of this encounter
--- OUTSIDE RECORDS SUMMARY | 2025-03-19 11:55 | XMS_ITS | Clinical Summary ---
Author Organization [facility] Address [address] [facility], [address] [place] [address] Care Team Providers Care Converter Supervisor Name Role Phone Unavailable Primary Care Provider [...] Take 1 capsule by mouth daily Active Vilas-3 Fatty Acids (FISH OIL) 1200 MG CAPS [...] Problems Daughter x 2 Heart Attack Father MA at age 52 Other Father acromegaly Diabetes [...] 2013 Shingles vaccine (1 of 2) 2018 Breast cancer screen 07/01/2024 07/01/2022, 06/17/2021, 06/17/2020, Additional history exists Flu vaccine (#1) 02/02/2025 04/06/2019, 05/15/2016 COVID-19 Vaccine ( season) 2025 06/26/2021 Colorectal Cancer Screen 03/16/2026 Fecal-DNA (Cologuard): Average [...] this topic Medical Devices Implanted Type Area Pin Worker Device Identifier Shelf Expiration Date Model / Serial / Lot Impl Peter Spine Reline [id number] Mm 55 Mm Implanted:Qty: 1 on 06/25/2020 by Femi Rosario MD at [facility] N/A: Spine Lumbar [employer]-PMM [id number] / / Graft Spnl [id number] Corticocancellous Lord Triad - [id number] Implanted:Qty: 1 on 05/09/2020 by Femi Rosario MD at [facility] N/A: Spine Cervical [employer] INC-WD 05/08/2024 [id number] / [id number] / Plate Spnl L28mm Antr Cerv 1 Lev Translational [place] Acp Implanted:Qty: 1 on 05/09/2020 by Femi Rosario MD at [facility] N/A: Spine Cervical [employer]-WD [id number] / / Screw Spnl L13mm Dia4mm Ant Cerv [place] Bra[place]io Ang Compr [place] Acp Implanted:Qty: 4 on 05/09/2020 by Femi Rosario MD at [facility] N/A: Spine Cervical [employer]-WD [id number] / / Connector Spnl Crss Lo Prof Adj Reline-O 5.5 X 45-65 Mm Implanted:Qty: 1 on 06/25/2020 by Femi Rosario MD at [facility] N/A: Spine Lumbar N[employer]-WD [id number] / / Screw Spnl Dia5.5mm Opn Tulip Roselyn Reline Implanted:Qty: 4 on 06/25/2020 by Femi Rosario MD at [facility] N/A: Spine Lumbar N[employer]- [id number] / / Graft Bne Sub 30cc 1.7-10mm Canc Chip Morselized Frz Dry - [id number] Implanted:Qty: 1 on 06/25/2020 by Femi Rosario MD at [facility] N/A: Spine Lumbar [employer]- 02/27/2023 [id number] / [id number] / Graft Bne Sub 5ml Mtrx Cellular Osteocel + - [id number] Implanted:Qty: 1 on 06/25/2020 by Femi Rosario MD at [facility] N/A: Spine Lumbar [employer] INC- 06/13/2024 [id number] / [id number] / Spacer Spnl L [id number] 4deg Post Lum Intbdy Fus Lord Implanted:Qty: 2 on 06/25/2020 by Femi Rosario MD at [facility] N/A: Spine Lumbar [employer]-WD [id number] / / Screw Spnl L50mm Dia7.5mm Post Thoracolumbosacral Polyax 2s Implanted:Qty: 2 on 06/25/2020 by Femi Rosario MD at [facility] N/A: Spine Lumbar N[employer]-WD [id number] / / Screw Spnl L55mm Od6mm 2s Polyax Reline O Implanted:Qty: 2 on 06/25/2020 by Femi Rosario MD at [facility] N/A: Spine Lumbar N[employer]-WD [id number] / / Peter Spnl Lordtc 5.5x40 Mm Ti Reline-O Implanted:Qty: 1 on 06/25/2020 by Femi Rosario MD at [facility] N/A: Spine Lumbar N[employer]-WD [id number] / / Clip Endoscp 235cm Resol 360 Order Uom Is Each - [id number] Implanted:Qty: 1 on 02/03/2024 by Nancy Durand MD at [facility] N/A: [facility] SCIENTIFIC-WD [id number] / / Insurance [employer] TIAGO Advance Directives * Full Code (Latest Code Status on File) Date Activated Date Inactivated Comments 06/25/2020 2:09 PM 06/27/2020 8:24 PM
--- OUTSIDE RECORDS SUMMARY | 2025-03-19 11:55 | XMS_ITS | Clinical Summary ---
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 Awaiting labs from [facility] for lipid profile and liver function [...] Encounters Date Type Department Care Team Description 03/15/[address] [facility] [address] [place] [address] Rae Denney MA 01/11/[address] [facility] [address] [place] [address] Rae Denney MA from Last 3 Months [...] Description 04/10/2025 2:45 PM EDT Office Visit [facility] [address] [place] [address] Esteban Estrada MD [address] [place] [address] Health Maintenance Due Date Last [...] 1998 Zoster Vaccines (1 of 2) 2018 FIT 03/16/2024 03/16/2023, 01/19/2019 Diabetes: Hemoglobin A1C 11/01/2024 025, 05/17/2024, 10/27/2022 COVID-19 Vaccine (2 - 2024-2 6 season) 2025 06/26/2021 Influenza Vaccine (#1) 2025 9, 05/15/2016 Diabetes: [...] Health Maintenance Insurance [employer] Care Teams Garment Sewing Machine Operator Relationship Specialty Start Date End Date Daphney Hubbard MD [address] [place] [address] PCP - General Family Medicine 05/04/24
--- OUTSIDE RECORDS SUMMARY | 2025-03-19 11:55 | XMS_ITS ---
Author Organization [facility] Address [address] [place] [address] Care Team Providers Care Director Of Special Education Name Role Phone Hazel Molina MD Primary Care Provider Daphney Hubbard MD Unavailable Diabetes Self-Management Education [...]
--- OUTSIDE RECORDS SUMMARY | 2025-03-19 11:55 | XMS_ITS | Encounter Summary ---
Author Organization [facility] Address [address] [place] [address] Care Team Providers Care Bookkeeper Receptionist Name Role Phone Kimberley Morgan Primary Care Provider [phone] Hazel Molina MD Primary Care Provider [phone] Daphney Hubbard MD Unavailable Reason for Visit * Reason Comments Med Refill Encounter Details Date Type Department Care Team (Late st Contact Info) Description 05/11/2023 Refill [facility] Podiatry [address] [place] [address] John Gauthier, DPChristy [address] [place], [place] [phone] Onychomycosis Social History Tobacco Use Types Packs/Day [...] 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 [place] [address] Hazel Molina MD [address] [facility] [place] [address] documented as of this encounter Visit Diagnoses Diagnosis Onychomycosis Dermatophytosis of nail documented in this encounter Care Teams Bookkeeper Receptionist Relationship Specialty Start Date End Date CathyGordonluci DobbsDO PCP - General Family Medicine 01/19/23 10/27/23 Hazel Molina MD [address] [facility] [place] [address] PCP - General Family Medicine 10/28/23 Daphney Hubbard MD [address] [facility] [place] [address] PCP - Medical [place] 07/05/2407/04 documented as of this encounter
--- OUTSIDE RECORDS SUMMARY | 2025-03-19 11:55 | XMS_ITS | Encounter Summary ---
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 on file N ot on file documented as of this encounter Plan of Treatment Upcoming Encounters Date Type Department Care Team (Late st Contact Info) Description 04/06/2025 11:15 AM EDT Office Visit [facility] [address] [place] [address] John Gauthier, DPM [address] [place] [address] 05/17/2025 10:20 AM EST [facility] [address] [place] [address] Hazel Molina MD [address] [facility] [place] [address] documented as of this encounter Visit Diagnoses Not on filedocumented in this encounter Care Teams Inspector Grain Mill Products Relationship Specialty Start Date End Date Kimberley Morgan DO PCP - General Family Medicine 01/19/23 10/27/23 Hazel Molina MD [address] [facility] [place] [address] PCP - General Family Medicine 10/28/23 Daphney Hubbard MD [address] [facility] [place] [address] PCP - Medical [place] 07/05/2407/04 documented as of this encounter
--- OUTSIDE RECORDS SUMMARY | 2025-03-19 11:55 | XMS_ITS | Encounter Summary ---
Author Organization [facility] Address [address] [place] [address] Care Team Providers Care Portfolio Specialist Name Role Phone Kimberley Morgan DO Primary Care Provider Unav ailable Source Comments In the event this information is protected by the Federal Confidentiality of Alcohol and Drug AbusePatient Records regulations: The Federal rules restrict any use of the information to criminally investigate or prosecute any alcohol or drug abuse patient.[facility] Encounter Details Date Type Department Care Team (Late st Contact Info) Description 06/23/2021 Get Medical Advice Rheumatology [address] [place] [address] Jailyn Cole MD [address] [place] [address] Right shoulder Social History Tobacco [...] on filedocumented in this encounter Care Teams Portfolio Specialist Relationship Specialty Start Date End Date Kimberley Morgan DO PCP - General Family Medicine 06/04/21 documented as of this encounter
--- OUTSIDE RECORDS SUMMARY | 2025-03-19 11:55 | XMS_ITS | Clinical Summary ---
Author Organization [facility] Address [address] [place] [address] Care Team Providers Care Fabrication Manager Name Role Phone Hazel Molina MD Primary Care Provider [phone] Daphney Hubbard MD Unavailable Allergies Active Allergy [...] 140 g 3 08/21/19 25 026 Active lamoTRIgine (LaMICtal) 100 MG tablet 12/26/19 25 Active metoprolol succinate XL (Toprol-XL) 50 MG 24 hr tablet 02/07/20 25 Active omeprazole (PriLOSEC) [address] capsule 01/08/20 25 Active nicotine (Nicoderm CQ) 14 MG/24HR patchIndications :Nicotine abuse Place 1 patch over 24 hours on the skin 1 (one) time each day at the same time 30 patch 02/14/20 25 Active metFORMIN (Glucophage) 500 MG tabletIndication s:Type 2 diabetes mellitus without complication, without long-term current use of insulin (HCC) TAKE 1 TABLET BY MOUTH EVERY MORNING AND TAKE 1 TABLET BY MOUTH EVERY EVENING WITH A MEAL 60 tablet 1 03/12/20 25 Active metFORMIN (Glucophage) 500 MG tabletIndication s:Type 2 diabetes mellitus without complication, without long-term current use of insulin (HCC) TAKE 1 TABLET BY MOUTH EVERY MORNING AND 1 TABLET EVERY EVENING WITH A MEAL 60 tablet 1 01/09/20 25 025 Discontinued Tirzepatide (Mounjaro) 2.5 MG/0.5ML solution auto-injectorInd ications:Type 2 diabetes mellitus without complication, without long-term current use of insulin ([facility]) Inject 2.5 mg under the skin 1 (one) time per week 2 mL 02/14/20 25 025 Active Problems Problem Noted Date Diagnosed Date Chronic prescription benzodiazepine use 02/14/20 25 Failed neck syndrome 02/13/2025 Disorder of sacroiliac [...] 01/25/2024 Other bursitis of knee, unspecified knee 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) 024 Hereditary deficiency of other clotting factors [...] not recommended Coronary artery disease invo lving burns paiute coronary artery of burns paiute heart with angina pectoris 02/10/2023 Overview (02/11/2023): [...] classified 01/10/2020 Factor 5 Leiden mutation, heterozygous ([facility]) 12/22/2019 Seasonal allergies 12/18/2019 High blood pressure [...] Encounters Date Type Department Care Team Description 03/10/2025 Refill [facility] [address] [place] [phone] Hazel Molina MD Type 2 diabetes mellitus without complication, without long-term current use of insulin ([facility]) 02/13/2025 2:40 PM EDT Office Visit [facility] [address] [place] [phone] Hazel Molina MD Nicotine abuse (Primary Dx); Type 2 diabetes mellitus without complication, without long-term current use of insulin ([facility]); Nausea and vomiting, unspecified vomiting type; Memory loss; Marijuana smoker 02/13/2025 Orders Only [facility] [address] [place] [phone] Hazel Molina MD 02/13/2025 Bamboo flowsheet [facility] [address] [facility] [place] [phone] Hazel Molina MD 02/13/2025 Travel 01/07/2025 Refill [facility] [address] [place] [phone] Hazel Molina MD Type 2 diabetes mellitus without complication, without long-term current use of insulin ([facility]) 01/03/2025 4:00 PM EDT Office Visit [facility] [address] [place] [address] John Gauthier, DPM Onychomycosis (Primary Dx); Onychodystrophy; Corns and callosities; Diabetic polyneuropathy associated with type 2 diabetes mellitus (HCC); Ingrown toenail; Pain in both feet 01/03/2025 Bamboo flowsheet [facility] [address] [place] [phone] John Gauthier, MACO 01/03/2025 Travel 01/02/2025 Travel from Last 3 Months Immunizations Immunization [...] Job Start Date Job End Date [employer]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 Not on [...] Description 04/06/2025 11:15 AM EDT [facility] [address] [place] [address] John Gauthier DPChristy [address] [place] [address] 05/17/2025 10:20 AM EST [facility] [address] [place] [phone] Hazel Molina MD [address] [place], [place] [phone] Health Maintenance Due Date Last Done Comments [...] screening mammogram for malignant neoplasm of breast MICROALBUMIN / CREATININE URINE RATIO Routine 08/08/2024 [...] Modality Head Other us Hazel Molina MD [facility] PHOTOGRAPHY Final Resul t * Bilateral screening [...] IMG BI PROCEDURES Final Resul t * Microalbumin / [...] Performing Organization Information Site ID: QPT Name: [facility] Address: [address] [place] [address], [address] [place] [phone] Director: Ben Puente MD us Hazel Molina MD LAB URINE ORDERABLES Final Re sult [facility] * Cologuard?? colon cancer screening (03/16/2023 2:00 PM EDT) NONINV COLON CA DNA+OCC BLD SCRN STL-IMP Negative Negative 03/22/2023 6:13 PM EDT [facility] (CLIA #:[id number]) Comment: NEGATIVE TEST RESULT. A negative Cologuard [...] screened with both Cologuard and colonoscopy. (Denis Salazar al, N Engl J Med 2014;370(14):2939-1232) The normal value (reference range) for this assay is negative. COLOGUARD RE-SCREENING RECOMMENDATION: Periodic colorectal cancer screening is an important part of preventive healthcare for asymptomatic individuals at average risk for colorectal cancer. Following a negative Cologuard result, the [place] Cancer Society and U.S. Multi-Society Task Force screening guidelines recommend a Cologuard re-screening interval of 3 years. References: [place] [employer] Guideline for Colorectal Cancer Screening: https://www.cancer.org/cancer/bcgce-plvqly-ppgkor/mwzryveth-mfsujhdxb-qvqxvqp/ac s-rec ommendations.html.; Bill DK, Best FORBES, El SantiagoK, Colorectal Cancer Screening: Recommendations for Physicians and Patients from the U.S. Multi-Society Task Force on Colorectal Cancer Screening , Am J Gastroenterology 2017; 112:9540-2423. TEST DESCRIPTION: Composite algorithmic analysis of stool [...] colonoscopy. (Denis Paul, N Engl J Med 2014;370(14):7122-7616.) Cologuard may produce a false negative or false positive result (no colorectal cancer or precancerous polyp present at colonoscopy follow up). A negative Cologuard test result does not guarantee the absence of CRC or advanced adenoma (pre-cancer). The current Cologuard screening interval is every 3 years. ([place] Cancer Society and U.S. Multi-Society Task Force). Cologuard performance data in a 10,000 patient pivotal study using colonoscopy as the reference method can be accessed at the following location: www.[employer]von[employer].Intellinote/results. Additional description of the Cologuard test process, warnings and precautions can be found at www.cologuard.com. Stool specimen (specimen) 03/16/2023 2:00 PM EDT 03/18/2023 7:06 PM EDT Kimberley Morgan LAB MOLECULAR DIAGNOSTICS ORDER PALOMA Final Result .[employer] (CLIA #:[id number]) [address] [place] [id number], [facility] (CLIA #:[id number]) [address] [place] [id number] * (ABNORMAL) Q - THINPREP(R) TIS AND [...] has been evaluated with computer assisted technology. CARPET INSTALLER HELPER: BINDU CISNEROS(ASCP) For informational Purposes: All cytology [facility] are [facility]. [address] [place] [address], BINDU RODRIGUEZ(ASCP) For informational Purposes: All cytology specimens are processed and screened at [facility]. [address] [place] [address] HPV mRNA E6/E7 RFX HPV 16, 18/45 HPV mRNA E6E7 Detected REFERENCE RANGE: NOT DETECTED This test was performed using the APTIMA HPV Assay ([employer] This assay detects E6/E7 viral messenger RNA (mRNA) from 14 high-risk HPV types (16,18,31,33,35,39,45,51,52,56,58,59,66,68). For more information on the limitations of this test, visit: http://www.[employer]Intellinote/testcenter/ testguide.action?dc=TS_HPV_HighRiskE6_E7_TMA HPV GENOTYPES 16,18/45 HPV 16 RNA TMA NOT DETECTED HPV 18/45 RNA TMA NOT DETECTED 09/09/2017 Radha Pino MD [facility] Final Result [facility] from Last 3 Months or Most Recently Relevant to Health Maintenance Insurance [address] [place] [address] [employer] MEDICARE Care Teams Fabrication Manager Relationship Specialty Start Date End Date Hazel Molina MD [address] [place], [place] [phone] PCP - General Family Medicine 10/28/23 Daphney Hubbard MD [address] [place], [place] [phone] PCP - Medical [facility] 07/05/2407/04
--- OUTSIDE RECORDS SUMMARY | 2025-03-19 11:55 | XMS_ITS | Encounter Summary ---
Author Organization [facility] Address [address] [place] [address] Care Team Providers Care Television Analyzer Name Role Phone Daphney Hubbard MD Primary Care Provider [phone] Encounter Details Date Type Department Care Team (Late st Contact Info) Description 03/15/2025 Telephone [facility] at [facility] [address] [place] [address] Rae Denney MA Social History Tobacco Use Types Packs/Day Years Used Date Smoking Tobacco: Former Cigarettes 0.5 30 0 01/03/1994 - 01/04/2024 Smokeless Tobacco: Never Comments:Vape Alcohol Use Standard Drinks/Week Comments Not Currently 0 (1 standard drink = 0.6 oz pur e alcohol) PHQ-2 Answer Date Recorded Patient Health Questionnaire-2 Score 0 01/25/2024 [place] Safety & Environment Answer Date Rec orded [...] encounter Miscellaneous Notes * Telephone Encounter - Rae Denney MA - 03/15/2025 1:42 PM EDT Images from the original note were not included. TESSA Villafuerte MA Please let her know her ECHO showed she may be on the dry side, recommend she increase her fluid intake. Her valve function is stable. Follow-up as planned. Thanks Phone call to patient advised patient of Echo results per Marilee Culver CNP. Patient verbalized understanding and agreed with plan of care. documented in this encounter Plan of Treatment Upcoming Encounters Date Type Department Care Team (Late st Contact Info) Description 04/10/2025 2:45 PM EDT Office Visit [facility] [address] [place] [phone] Esteban Estrada MD [address] [place] [phone] documented as of this encounter Visit Diagnoses Not on filedocumented in this encounter Additional Health Concerns Assessment Noted Time PHQ-9 Depression Total Score: 12 023 1:26 PM EDT documented as of this encounter Care Teams Television Analyzer Relationship Specialty Start Date End Date Daphney Hubbard MD [address] [place] [address] PCP - General Family Medicine 05/04/24 documented as of this encounter
--- OUTSIDE RECORDS SUMMARY | 2025-03-19 11:55 | XMS_ITS | Encounter Summary ---
Author Organization [facility] Address [address] [facility] [facility], [address] [place] [address] Care Team Providers Care Shipping Room Supervisor Name Role Phone Mark Tomas MD Primary Care Provider Unav ailable Reason for Visit * Reason Comments Medication Refill Encounter Details Date Type Department Care Team (Late st Contact Info) Description 08/28/2019 Refill [facility] [address], [address] [place] [address] Femi Rosario MD Medication Refill Social History [...] unspecified documented in this encounter Care Teams Shipping Room Supervisor Relationship Specialty Start Date End Date Mark Tomas MD PCP - General Family Medicine 04/12/20 09/12/23 documented as of this encounter
--- OUTSIDE RECORDS SUMMARY | 2025-03-19 11:55 | XMS_ITS | Clinical Summary ---
Author Organization [facility] Address [address] [place] [address] Care Team Providers Care Space And Storage Clerk Name Role Phone Kimberley Morgan Primary Care [...] Daily January 07, 2021 7:15am 1 Active hhnsu-cm-3-dha-epa -phospho-ast 1,205-532-22-80 mg cap Take by mouth. Activ e [...] N ot on file 08/02/2022 Data from: https://www.neighborhoodatlas.medicine.[facility].edu/. Last address used for calculation [address] [place] [address] [address] 08/02/2022 Comments Unknown Sex and [...] - 8.0 g/dL 12/12/2021 5:[address] [facility] Albumin 4.2 3.9 - 4.9 g/dL 12/12/2021 5:[address] [facility] Calcium, Total 9.6 8.5 - 10.2 mg/dL 12/12/2021 5:[address] [facility] Bilirubin, Total <0.2(L) 0.2 - 1.3 mg/dL 12/12/2021 5:[address] [facility] Alkaline Phosphatase 140(H) 34 - 123 U/L 12/12/2021 5:[address] [facility] AST 24 13 - 35 U/L 12/12/2021 5:[address] [facility] ALT 23 7 - 38 U/L 12/12/2021 5:25 PM [facility] Glucose 93 74 - 99 mg/dL 12/12/2021 5:25 PM [facility] Comment: The [place] Diabetes Association (ADA) provides guidance for cutoff [...] Standards of Medical Care in Diabetes 2016, [place] Diabetes Association. Diabetes Care. 2016.39(Suppl 1). BUN 11 7 - 21 mg/dL 12/12/2021 5:25 PM [facility] Creatinine 0.86 0.58 - 0.96 mg/dL 12/12/2021 5:25 PM [facility] Sodium 138 136 - 144 mmol/L 12/12/2021 5:25 PM [facility] Potassium 4.3 3.7 - 5.1 mmol/L 12/12/2021 5:25 PM [facility] Chloride 104 97 - 105 mmol/L 12/12/2021 5:[address] [facility] CO2 24 22 - 30 mmol/L 12/12/2021 5:[address] [facility] Anion Gap 10 9 - 18 mmol/L 12/12/2021 5:[address] [facility] Estimated Glomerular Filtration Rate 81 >=60 mL/min/1. 73m 12/12/2021 5:[address] [facility] Comment:Estimated Glomerular Filtration Rate (eGFR) [...] MD LABORATORY Final Result Performing Organization Address City/[facility] [place] [address], * HEP REMOTE PANEL BL (06/04/2021 2:45 PM EST) Hep B Core Ab, Total Negative Negative 06/05/2021 5:26 PM EST [facility] Hep C Antibody [place] Negative Negative 06/05/2021 5:27 PM EST [facility] HBsAg Negative Negative 06/05/2021 5:26 PM EST [facility] Hep B Surface Ab, Qual Negative Negative 06/05/2021 5:27 PM EST [facility] [employer] Comment:NEGATIVE Blood OTHER / Unknown 06/04/2021 2 :45 PM EST 06/04/2021 2:47 PM EST us Jailyn Cole MD LABORATORY Final Result Performing Organization Address [facility]/ZIP Co de Phone Number [place] [phone] [facility] [address] [place] [address] from Last 3 Months or Most Recently Relevant to Health Maintenance Insurance [address] [place] [address] [facility] Care Teams Space And Storage Clerk Relationship Specialty Start Date End Date Kimberley Morgan DO PCP - General Family Medicine 06/04/21
--- OUTSIDE RECORDS SUMMARY | 2025-03-19 11:55 | XMS_ITS | Encounter Summary ---
Author Organization [facility] Address [address] [place] [address] Care Team Providers Care Trainmaster Name Role Phone Kimberley Morgan DO Primary Care Provider Unav ailable Source Comments In the event this information is protected by the Federal Confidentiality of Alcohol and Drug AbusePatient Records regulations: The Federal rules restrict any use of the information to criminally investigate or prosecute any alcohol or drug abuse patient.[facility] Encounter Details Date Type Department Care Team (Late st Contact Info) Description 06/08/2021 Get Medical Advice Rheumatology [address] [place], [place] [phone] Jailyn Cole MD [address] [place] [address] Osteoarthritis Social History Tobacco Use [...] on filedocumented in this encounter Care Teams Trainmaster Relationship Specialty Start Date End Date Kimberley Morgan DO PCP - General Family Medicine 06/04/21 documented as of this encounter
--- OUTSIDE RECORDS SUMMARY | 2025-03-19 11:55 | XMS_ITS | Encounter Summary ---
Author Organization [facility] Address [address] [place] [address] Care Team Providers Care Board Attendant Name Role Phone Kimberley Morgan Primary Care Provider Unav ailable Source Comments In the event this information is protected by the Federal Confidentiality of Alcohol and Drug AbusePatient Records regulations: The Federal rules restrict any use of the information to criminally investigate or prosecute any alcohol or drug abuse patient.[facility] Encounter Details Date Type Department Care Team (Late st Contact Info) Description 03/17/2022 Get Medical Advice Rheumatology [address] [place], [place] [phone] Jailyn Cole MD [address] [place] [address] Lizbeth Hinkle Social History Tobacco [...] on file 12/12/2021 Data from: https://www.neighborhoodatlas.medicine.[facility].edu/. Last address used for calculation [address] [place] [address] 12/12/2021 Comments Unknown Sex and Gender Information Value Date Recorded Sex Assigned at Not on file Legal Sex Female 10:38 AM EDT Gender Identity Not on file Sexual Orientation Not on file documented as of this encounter Plan of Treatment Not on file documented as of this encounter Visit Diagnoses Not on filedocumented in this encounter Care Teams Board Attendant Relationship Specialty Start Date End Date Kimberley Morgan DO PCP - General Family Medicine 06/04/21 documented as of this encounter
--- OUTSIDE RECORDS SUMMARY | 2025-03-19 11:55 | XMS_ITS | Encounter Summary ---
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) Not on file Not on file N ot on file documented as of this encounter Plan of Treatment Upcoming Encounters Date Type Department Care Team (Late st Contact Info) Description 04/06/2025 11:15 AM EDT Office Visit [facility] [address] [place] [address] John Gauthier, DPM [address] [place] [address] 05/17/2025 10:20 AM EST [facility] [address] [facility] [place] [phone] Hazel Molina MD [address] [facility] [place] [address] documented as of this encounter Visit Diagnoses Not on filedocumented in this encounter Care Teams Coffee Break Attendant Relationship Specialty Start Date End Date Kimberley Morgan DO PCP - General Family Medicine 01/19/23 10/27/23 Hazel Molina MD [address] [facility] [place] [address] PCP - General Family Medicine 10/28/23 Daphney Hubbard MD [address] [facility] [place] [address] PCP - Medical [facility] 07/05/2407/04 documented as of this encounter
--- OUTSIDE RECORDS SUMMARY | 2025-03-19 11:55 | XMS_ITS | Encounter Summary ---
Author Organization [facility] Address [address] [place] [address] Care Team Providers Care Stationary Engineer Supervisor Name Role Phone Kimberley Morgan DO Primary Care Provider Unav ailable Source Comments In the event this information is protected by the Federal Confidentiality of Alcohol and Drug AbusePatient Records regulations: The Federal rules restrict any use of the information to criminally investigate or prosecute any alcohol or drug abuse patient.[facility] Encounter Details Date Type Department Care Team (Late st Contact Info) Description 12/30/2021 Patient Msg Internal Medicine [address] [address] Provider, Ccf confidential Social History Tobacco Use [...] on file 12/12/2021 Data from: https://www.neighborhoodatlas.medicine.[facility].edu/. Last address used for calculation [address] [place] [address] 12/12/2021 Comments Unknown Sex and Gender [...] on filedocumented in this encounter Care Teams Stationary Engineer Supervisor Relationship Specialty Start Date End Date Kimberley Morgan DO PCP - General Family Medicine 06/04/21 documented as of this encounter
--- OUTSIDE RECORDS SUMMARY | 2025-03-19 11:55 | XMS_ITS | Encounter Summary ---
Author Organization [facility] Address [address] [place] [address] Care Team Providers Care Fire Prevention Engineer Name Role Phone Kimberley Morgan Primary Care Provider Unav ailable Source Comments In the event this information is protected by the Federal Confidentiality of Alcohol and Drug AbusePatient Records regulations: The Federal rules restrict any use of the information to criminally investigate or prosecute any alcohol or drug abuse patient.[facility] Encounter Details Date Type Department Care Team (Late st Contact Info) Description 10/03/2022 Get Medical Advice Rheumatology [address] [place], [place] [phone] Jailyn Cole MD [address] [place] [address] Refill Social History Tobacco Use [...] N ot on file 08/02/2022 Data from: https://www.neighborhoodatlas.medicine.[facility].edu/. 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 Please call and schedule nonfasting [...] (CRP) documented in this encounter Care Teams Fire Prevention Engineer Relationship Specialty Start Date End Date Kimberley Morgan DO PCP - General Family Medicine 06/04/21 documented as of this encounter
--- OUTSIDE RECORDS SUMMARY | 2025-03-19 11:55 | XMS_ITS | Encounter Summary ---
Author Organization [facility] Address [address] [place] [address] Care Team Providers Care Release Of Information Clerk Name Role Phone Kimberley Morgan Primary Care Provider Unav ailable Source Comments In the event this information is protected by the Federal Confidentiality of Alcohol and Drug AbusePatient Records regulations: The Federal rules restrict any use of the information to criminally investigate or prosecute any alcohol or drug abuse patient.[facility] Encounter Details Date Type Department Care Team (Late st Contact Info) Description 12/12/2021 Get Medical Advice Rheumatology [address] [place], [place] [phone] Jailyn Cole MD [address] [place] [address] Fibromyalgia Social History Tobacco Use [...] N ot on file 12/12/2021 Data from: https://www.neighborhoodatlas.medicine.[facility].edu/. Last address used for calculation [address] [place] [address] 12/12/2021 Comments Unknown Sex and Gender [...] on filedocumented in this encounter Care Teams Release Of Information Clerk Relationship Specialty Start Date End Date Kimberley Morgan DO PCP - General Family Medicine 06/04/21 documented as of this encounter
[2025-03-19 11:57] VITALS: BP 101/69; PULSE 88; TEMP 36.6; O2SAT 96
[2025-03-19 12:20] VITALS: PULSE 78; O2SAT 96
[2025-03-19 12:21] VITALS: BP 128/80; BP 132/81; PULSE 86; O2SAT 96
[2025-03-19] MEDS: BUPIVACAINE HCL 0.25% PF 25 MG/10 ML VIAL 8 ML INJ (12:22)
[2025-03-19] MEDS: LIDOCAINE HCL 2% 400 MG/20 ML MDV INJ (12:22)
--- NOTE | 2025-03-19 12:25 | W.PM.PROCNOT ---
Date of procedure: 03/19/25 Pre-op diagnosis: Pain due to lumbar spondylosis without myelopathy Post-op diagnosis: same as pre-op Procedure: Procedure: Bilateral L3-4, L4-5 medial branch block Medications: Bupivacaine 0.25% 6cc The patient was seen and examined in the preoperative holding area.? An informed consent was obtained and placed on the chart.? The patient was brought to the medical procedure unit and placed in the prone position.? A timeout was completed verifying correct patient, procedure site, positioning, plan, and special equipment.? Using aseptic technique, the needle was placed at left L3. Under direct fluoroscopic visualization a Quincke-tipped spinal needle was advanced to the junction of the superior articulating process with the transverse process at the designated medial branch segment.? Preceded by negative aspiration, the above-mentioned injectate was placed in 1 mL aliquots.? The procedure was repeated at left L4, 5.? The needle was removed and insertion site was covered. The same procedure, at the same levels, was completed on the right side. The patient was taken to the postprocedural recovery area and monitored for an appropriate length of time before found suitable for discharge in the company of a responsible adult. Anesthesia: Local Surgeon: Rosibel Cotton Pathology: none sent Condition: stable Disposition: no change
--- OUTSIDE RECORDS SUMMARY | 2025-03-19 12:26 | XMS_ITS | CCD ---
Author Organization [facility] Care Team Providers Care Dog Groomer Name Role Phone GENOVEVA, CRISTOBAL F Primary [...] Edwige DO, Kimberley Leora Primary Care Provider [phone] Emmett Brunner Unavailable Letty Olson Unavailable Edwige DO, Kimberley Leora Primary Care Provider EDWIGE, KIMBERLEY LEORA Referring Unavailable EDWIGE, KIMBERLEY LEORA Primary Care Unavailable FELIX, GAYLE Attending Unavailable EWDIGE, KIMBERLEY LEORA Primary Care Unavailable GAYLE WASHINGTON [...] Consulting Unavailable ROLDANJAVIER JAQUEZ Consulting Unavailable Kimberley Morgan DO Primary Care Provider [phone] Unavailable Primary Care Provider UnavailMAXIMILIANO Parker Attending Unavailable MAXIMILIANO YOU Admitting Unavailable NANCY LUDWIG Admitting Unavailable NANCY LUDWIG Attending Unavailable NICOLE TELLES Referring Unavailable NICOLE TELLES Referring Unavailable NICOLE TELLES Referring Unavailable Hazel Velásquez MD Primary Care Provider Daphney Hubbard MD Unavailable JOHN GAUTHIER Attending Unavailable LUKAS LUZ Attending Unavailable HAZEL VELÁSQUEZ Attending Unavailable JOHN GAUTHIER Attending Unavailable LUKAS LUZ Attending Unavailable LUKAS LUZ Attending Unavailable HAZEL VELÁSQUEZ Attending Unavailable HAZEL VELÁSQUEZ Referring Unavailable JOHN GAUTHIER Attending Unavailable HAZEL VELÁSQUEZ Attending Unavailable HAZEL VELÁSQUEZ Attending Unavailable Giedraitis , Andmaurice Laurent Attending Unavailable Giedraitis , Andmaurice Laurent Attending Unavailable Giedraitis , Andrius Laurent Attending Unavailable Giedraitis , Andrius Anastasiia Attending Unavailable Giedraitis , Andrius Laurent Attending Unavailable DALE HUTCHISON Attending Unavailable TIM CULVER Attending Unavailable TIM CULVER Attending Unavailable Allergies Allergy Classification Reported Allergen(s) Allergy Type Date of Onset Reaction(s) Facility (20 sources) Ibuprofen; Translations: [IBUPROFEN] Drug Allergy 0 Unknown, Diarrhea, GI intolerance [facility] (20 sources) traMADol; Translations: [TRAMADOL] Drug Allergy 9 Unknown, Nausea Only [facility] (1 source) Ibuprofen Drug Allergy [facility] (1 source) traMADol Drug Allergy 2 [facility] Medications Current Medications Medication Drug Class(es) [...] Corticosteroid Start: Fluticasone Propionate (Flonase) 50 mcg/actuation [place],Suspension Active 1 SPRAY INTRANASAL Twice daily January [...] tablet Start: 01-07-2021 take 3 tablets by [facility] daily Lamotrigine 100 mg Tablet [...] same time 42 patch 10/28/2023 02/13/2025 Discontinued [place]-3 Fatty Acids (FISH OI L) 1200 MG CAPS (2 sources) [place]-3 Fatty Ac ids (FISH OIL) 1200 MG CAPS Take by mouth daily Active [place]-3 Fatty Ac ids (FISH OIL) 1200 MG CAPS Take by mouth daily 0 Active omeprazole 40 mg delayed release oral capsule (20 sources) Proton Pump Inhibitor Start: 01-07-2025 omeprazo le (PriLOSEC) [address] capsule 01/07/2025 Active Start: 09-04-2024 take 1 capsule by mo [facility] once daily Omeprazole 40 mg capsule,delayed release(DR/EC) [...] 2024 10:55am take 2 tablets by mo ut once daily QUEtiapine (SEROQUEL) 50 MG tablet [...] sources) Nonsteroidal Anti-inflammatory Drug, Cyclooxygenase Inhibitor Start: 022 End: take 1 tablet by mouth every six hours as needed for pain Ketorolac 10 mg tablet Discontinued 10 MG PO Q6H as needed for pain September 22, 2021 12:00am November 23, 2024 10:53am bintz-im-9-dha-epa-joey spho-ast 1,166-284-29-80 mg cap (4 sources) jdvbi-sw-7-dha-e pa-ph ospho-ast 1,462-079-96-80 mg cap Take by mouth. 0 Active [...] Comment on above: Take 1 tablet by [facility] once daily. 2 ml metoclopramide 5 mg/ml [...] 3:38pm Start: 09-04-2024 take 1 capsule by [facility] once daily Omeprazole 20 mg capsule,delayed [...] complication, without long-term current use of insulin ([facility]) DIAL AND INJECT UNDER THE SKIN [...] THE SKIN 0.5 MG WEEKLY 3 mL 11/18/2024 Active pantoprazole 40 mg delayed release [...] Coronary arteriosclerosis; Translations: [Atherosclerotic heart disease of [place] coronary artery with unspecified angina pectoris] Onset: [...] 02-11-2023 Chronic Heart valve disorders (4 sources) Non-rheumatic mitral regurgitation ; Translations: [Nonrheumatic mitral (valve) insufficiency] Onset: 11-08-2024 02-13-2025 Chronic Joint disorders and dislocations; trauma-related (20 [...] Onset: 06-05-2021 Chronic Other aftercare (1 source) 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; Translations: [INTERMEDIATE CURRNT USE ANTICOAGULANTS] Onset: 10-19-2022 Episodic Other aftercare (2 sources) Long-term current use of benzodiazepine; 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: [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] Onset: 02-13-2025 02-13-2025 Episodic [...] (20 sources) Drug therapy finding; Translations: [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] Onset: 3 02-11-2023 Episodic Other aftercare (20 sources) [facility] current use of non-steroidal anti-inflammatory drug; Translations: [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) use of non-steroidal anti-inflammatories (NSAID)] Onset: 3 07-26-2023 Episodic Other aftercare (2 sources) Patient encounter [...] 7 01-19-2023 Episodic Other connective tissue disease (2 sources) [...] Translations: [Inappropriate sinus tachycardia, so stated] Onset: Viral infection (20 sources) Herpes zoster without complication; Translations: [Zoster without complications] Onset: 7 01-19-2023 Episodic Results Test Name Value Interpretation Reference Range Facility 36on 03-15-2025 36 TESSA Villafuerte MA Please let her know her ECHO showed she may be on the dry side, recommend she increase her fluid intake. Her valve function is stable. Follow-up as planned. Thanks Phone call to patient advised patient of Echo results per Marilee Culver CNP. Patient verbalized understanding and agreed with plan of care. Normal [facility] - Hematology and Cell countson 02-13-2025 HbA1c (Bld) [Mass fraction] 6.2 % [facility] No Panel Informationon 02-13 [facility] 36on 01-11-2025 36 Rae Denney MA Lyly Forrest Jeny, If you have a denial letter [...] during your recent visit on 11/08/2024 at [facility]. Don't forget that you can review your After-Visit Summary by navigating to the [email or web address][Visit Summaries] page. If you have any questions about the care you received, please don't hesitate to reply to this message at any time. Sincerely, Your Care Team Normal [facility] BI MAMMOGRAM SCREENING TOMOS YNTHESIS BILATERALon [...] II, MD, PHD at 04-Dec-2024 10:23:23 AM [facility] Normal Not Available 37on 11-08-2024 37 *Increase metoprolol to 50mg daily. You can take 2 tablets of your current prescription until this runs out then start the new prescription of 1 tablet, 50mg daily. *Follow-up in 3 months with a heart ultrasound prior. Normal [facility] - Hematology and Cell countson 11-08-2024 HbA1c (Bld) [Mass fraction] 6.1 % [facility] No Panel Informationon 11-08 Interpretation and review of laboratory results Normal [facility] Office Visiton 11-08-2024 Follow-up visit [id number] Nikko Garcia 1970 Provider Department Center 11/08/2024 TIM CORONEL Family History Problem Relation Age of Onset COPD Mother Heart failure Mother Coronary artery disease Father 56 Family Status - Relation Status Age at Mother Father Sister Alive Brother Alive Level of Service:38163 [place] OFFICE/OUTPATIENT ESTABLISHED MOD MDM 30 MIN Reason for Visit and Comments: Palpitations [472265] Normal [facility] Office Visiton 10-17-2024 Follow-up visit [id number] iNkko Garcia 1970 Provider Department Center 10/17/2024 TIM CORONEL Family History Problem Relation Age of Onset COPD Mother Heart failure Mother Coronary artery disease Father 56 Family Status - Relation Status Age at Mother Father Sister Alive Brother Alive Level of Service:65281 [place] OFFICE/OUTPATIENT ESTABLISHED MOD MDM 30 MIN Reason for Visit and Comments: Palpitations [042174] Hypertension [245946] Coronary Artery Disease [187] Chest Pain [372337] Normal [facility] Orders Onlyon 08-07-2024 Orders Only [id number] Nikko Garcia 1970 Provider Department Center 08/07/2024 Amanda-JESSIE REID [facility] Family History Problem Relation Age of Onset COPD Mother Coronary artery disease Father 56 Family Status - Relation Status Age at Mother Alive Father [facility] Orders Onlyon 08-04-2024 Orders Only [id number] Nikko Garcia 1970 F Date Provider Department Center 08/04/2024 JESSIE RODRIGUEZ [facility] Family History Problem Relation Age of Onset COPD Mother Coronary artery disease Father 56 Family Status - Relation Status Age at Mother Alive Father [facility] 36on 08-03-2024 36 Envelope Press Operator called and wanted Dr. Rodriguez to clarify that the patient should be taking 3 pill a day instead of two [facility] 07-27-2024 36 Cig Envelope Press Operator fr reggie uJlio called and wanted to know can you clarify on the directions of how you want the patient to take her Celebrex medication because there is two different direction on how to take the Celebrex medication when the medcation was sent the from time [facility] Refillon 07-27-2024 Refill [id number] Nikko Garcia 1970 F Date Provider Department Center 07/27/2024 OVIDIO SANTILLAN [facility] Family History Problem Relation Age of Onset COPD Mother Coronary artery disease Father 56 Family Status - Relation Status Age at Mother Alive Father [facility] 36on 07-04-2024 36 Last Visit: 01/25/24 No Upcoming Visit [facility] Refillon 07-04-2024 Refill [id number] Nikko Garcia 1970 F Date Provider Department Center 07/04/2024 SOLITARIO ADAMS [facility] Family History Problem Relation Age of Onset COPD Mother Coronary artery disease Father 56 Family Status - Relation Status Age at Mother Alive Father Reason for Visit and Comments: Med Refill [004515] [facility] EGDon 06-09-2024 No dictation Pijon EGDOrdered By: User Epic on 06-09-2024 Pijon Work Phone: Surgical Pathology Reporton 06-09-2024 Surgical Pathology Report (NOTE) Path Number: [id number] -- Diagnosis -- DISTAL ESOPHAGUS, BIOPSY: -SQUAMOUS [...] Microscopic Description Microscopic examination performed. Processing Lab: [facility] [address] [place] [id number] Interpretation Performed at [address] [address] SURGICAL PATHOLOGY CONSULTATION Patient Name: LEXI GARCIA [facility] Rec: [id number] [facility] ANATOMIC PATHOLOGY [address] [place] [id number] [facility] Orders Onlyon 05-17-2024 Orders Only [id number] Nikko Garcia 1970 F Date Provider Department Center 05/17/2024 3848-DALE HUTCHISON ALYSA Lorenzana Family History Problem Relation Age of Onset COPD Mother Coronary artery disease Father 56 Family Status - Relation Status Age at Mother Alive Father Normal [facility] Office Visiton 05-04-2024 Follow-up visit [id number] Nikko Garcia 1970 Date Provider Department Center 05/04/2024 384DALE CARABALLO Family History Problem Relation Age of Onset COPD Mother Coronary artery disease Father 56 Family Status - Relation Status Age at Mother Alive Father Level of Service:34766 [place] OFFICE/OUTPATIENT ESTABLISHED LOW MDM 20 MIN Normal [facility] Surgical Pathology Reporton 02-03-2024 Surgical Pathology Report (NOTE) Path Number: [id number] -- Diagnosis -- A. STOMACH, ANTRUM, BIOPSIES: [...] DUODENAL BULB Received in formalin are four orsado-white tissue fragments from < 0.1 to 0.4 cm and are 0.9 x 0.2 x 0.2 cm in aggregate. Entirely 1cs. C. LEXI GARCIA, GE JUNCTION Received in formalin are two rosado-white tissue fragments, < 0.1 cm and are 0.5 x 0.2 x 0.2 cm in aggregate. Entirely 1cs. jj tm David Hough M.D./kb2:02/03/2024 Microscopic Description A-C. Microscopic examination performed. Processing Lab: [address] [id number] Interpretation Performed at [address] [phone] SURGICAL PATHOLOGY CONSULTATION Patient Name: LEXI GARCIA [facility] Rec: [id number] [facility] [employer] [facility] ANATOMIC PATHOLOGY [address] [place] [address]. [place], [place] [address] Normal [facility] Celiac Disease Panelon 09-13 Gliadin Deam Pep IgA 1.9 U/mL Normal <7.0 [facility] Comment on above: Result Comment: CELIAC INTERPRETATION <7.0 Negative 7.0-10.0 Equivocal >10.0 Positive units: U/mL Performed By: #### C ELP #### [address] [address] Ingot Stripper: Talib Clements MD Gliadin Deam Pep IgG <0.4 Normal <7.0 [facility] Comment on above: Result Comment: CELIAC INTERPRETATION <7.0 Negative 7.0-10.0 Equivocal >10.0 Positive units: U/mL Performed By: #### C ELP #### [address] [address] Ingot Stripper: Talib Clements MD Tiss Transglutam IgA 0.4 U/mL Normal <7.0 [facility] Comment on above: Result Comment: CELIAC INTERPRETATION <7.0 Negative 7.0-10.0 Equivocal >10.0 Positive units: U/mL Performed By: #### C ELP #### [address] [address] Ingot Stripper: Talib Clements MD IgA [Mass/Vol] 184 mg/dL Normal 70-[address] [facility] Comment on above: Performed By: #### C ELP #### [address] [address] Ingot Stripper: Talib Clements MD H. pylori Antigenon 09-14-19 H. pylori Antigen Specimen Description .FECES Direct Exam NEGATIVE Report Status FINAL 09/14/2023 [facility] Comment on above: Performed By: #### F HPY #### [address] [address] Ingot Stripper: Talib Clements MD [facility] [address] [place] [address] [place] [address] Ingot Stripper: David Hough MD CBC AUTO DIFFon 10-07-2022 BASO # 0.0 103/ul Normal 0.0-0.1 [facility] Comment on above: Performed By: #### C BC #### [facility] [address] [place] [address] Dr. Donna Cantrell Basophils/100 WBC (Bld) 0.5 % Normal 0.2-2.0 [facility] Comment on above: Performed By: #### C BC #### [facility] [address] [place] [address] Dr. Donna Cantrell EO # 0.0 103/ul Normal 0.0-0.7 [facility] Comment on above: Performed By: #### C BC #### [facility] [address] [place] [address] Dr. Donna Cantrell Eosinophils/100 WBC (Bld) 0.0 % Critically low 0.9-7.0 [facility] Comment on above: Performed By: #### C BC #### [facility] [address] [place] [address] Dr. Donna Cantrell Erythrocyte distribution width (RBC) [Ratio] 13.6 % Normal 11.0-15.0 [facility] Comment on above: Performed By: #### C BC #### [facility] [address] [place] [address] Dr. Donna Cantrell Hematocrit (Bld) [Volume fraction] 42.0 % Normal 36.0-48.0 [facility] Comment on above: Performed By: #### C BC #### [facility] [address] [place] [address] Dr. Donna Cantrell Hemoglobin (Bld) [Mass/Vol] 14.4 g/dL Normal 12.0-16.0 [facility] Comment on above: Performed By: #### C BC #### [facility] [address] [place] [address] Dr. Donna Cantrell IG # 0.06 10e3/ul Critically high 0.00-0.03 [facility] Comment on above: Performed By: #### C BC #### [facility] [address] [place] [address] Dr. Donna Cantrell IG % 0.8 % Critically high 0.0-0.5 [facility] Comment on above: Performed By: #### C BC #### [facility] [address] [place] [address] Dr. Donna Cantrell LYMPH # 2.5 103/ul Normal 1.2-3.8 [facility] Comment on above: Performed By: #### C BC #### [facility] [address] [place] [address] Dr. Donna Cantrell Lymphocytes/100 WBC (Bld) 30.8 % Normal 20.5-60.0 [facility] Comment on above: Performed By: #### C BC #### [facility] [address] [place] [address] Dr. Donna Cantrell MANUAL DIFF REQ NO Normal [facility] Comment on above: Performed By: #### C BC #### [facility] [address] [place] [address] Dr. Donna Cantrell MCH (RBC) [Entitic mass] 30.3 pg Normal 26.7-34.0 [facility] Comment on above: Performed By: #### C BC #### [facility] [address] [place] [address] Dr. Donna Cantrell MCHC (RBC) [Mass/Vol] 34.3 g/dL Normal 29.9-35.2 [facility] Comment on above: Performed By: #### C BC #### [facility] [address] [place] [address] Dr. Donna Cantrell MCV (RBC) [Entitic vol] 88.2 fL Normal 81.0-99.0 [facility] Comment on above: Performed By: #### C BC #### [facility] [address] [place] [address] Dr. Donna Cantrell MONO # 0.5 103/ul Normal 0.3-0.8 [facility] Comment on above: Performed By: #### C BC #### [facility] [address] [place] [address] Dr. Donna Cantrell Monocytes/100 WBC (Bld) 6.4 % Normal 1.7-12.0 [facility] Comment on above: Performed By: #### C BC #### [facility] [address] [place] [address] Dr. Donna Cantrell NEUT # 4.9 103/ul Normal 1.4-6.5 [facility] Comment on above: Performed By: #### C BC #### [facility] [address] [place] [address] Dr. Donna Cantrell Neutrophils/100 WBC (Bld) 61.5 % Normal 43.0-75.0 [facility] Comment on above: Performed By: #### C BC #### [facility] [address] [place] [address] Dr. Donna Cantrell Platelet mean volume (Bld) [Entitic vol] 9.9 fL Normal 9.5-13.5 [facility] Comment on above: Performed By: #### C BC #### [facility] [address] [place] [address] Dr. Donna Cantrell PLT 234 103/ul Normal 150-450 [facility] Comment on above: Performed By: #### C BC #### [facility] [address] [place] [address] Dr. Donna Cantrell RBC 4.76 106/ul Normal 4.20-5.40 [facility] Comment on above: Performed By: #### C BC #### [facility] [address] [place] [address] Dr. Donna Cantrell WBC 8.0 103/ul Normal 4.0-11.0 [facility] Comment on above: Performed By: #### C BC #### [facility] [address] [place] [address] Dr. Donna Cantrell PROF CHEM 8 (BAS METB)on Anion gap [Moles/Vol] 13.9 mmol/L Normal [facility] Comment on above: Performed By: #### B MP #### [facility] [address] [place] [address] Dr. Donna Cantrell Calcium [Mass/Vol] 8.9 mg/dL Normal 8.5-10.1 [facility] Comment on above: Performed By: #### B MP #### [facility] [address] [address] [address] Donna Cantrell Chloride [Moles/Vol] 104 mmol/L Normal 98-107 [facility] Comment on above: Performed By: #### B MP #### [facility] [address] [address] [address] Donna Cantrell CO2 [Moles/Vol] 26.3 mmol/L Normal 21.0-32.0 [facility] Comment on above: Performed By: #### B MP #### [facility] [address] [place] [address] Dr. Donna Cantrell Creatinine [Mass/Vol] 0.91 mg/dL Normal 0.55-1.02 [facility] Comment on above: Performed By: #### B MP #### [facility] [address] [place] [address] Dr. Donna Cantrell EGFR-AF [place] >60 Normal >=60 [facility] Comment on above: Performed By: #### B MP #### [facility] [address] [place] [address] Dr. Donna Cantrell EGFR-NON AF [place] >60 Normal >=60 [facility] Comment on above: Performed By: #### B MP #### [facility] [address] [address] [address] Donna Cantrell Glucose [Mass/Vol] 127 mg/dL Critically high 74-106 [facility] Comment on above: Performed By: #### B MP #### [facility] [address] [address] [address] Donna Cantrell Potassium [Moles/Vol] 4.2 mmol/L Normal 3.5-5.1 [facility] Comment on above: Performed By: #### B MP #### [facility] [address] [address] [address] Donna Cantrell Sodium [Moles/Vol] 140 mmol/L Normal 136-145 [facility] Comment on above: Performed By: #### B MP #### [facility] [address] [place] [address] Dr. Donna Cantrell Urea nitrogen [Mass/Vol] 15.0 mg/dL Normal 7.0-18.0 [facility] Comment on above: Performed By: #### B MP #### [facility] [address] [place] [address] Dr. Donna Cantrell Urea nitrogen/Creatini ne [Mass ratio] 16.5 mg/mg Normal [facility] Comment on above: Performed By: #### B MP #### [facility] [address] [place] [address] Dr. Donna Cantrell PROTIMEon 10-07-2022 INR Coag (PPP) [Relative time] {INR} Normal [facility] Comment on above: Performed By: #### B LTM #### [facility] [address] [place] [address] Dr. Donna Cantrell INR GUIDELINES SEE BELOW Normal [facility] Comment on above: Result Comment: SHIRA RED INR: 2.0 - 3.0 CONDITIONS NOT LISTED BELOW 2.5 - 3.5 FOR PROSTHETIC HEART VALVE REPLACEMENT 2.5 - 3.5 RECURRENT THROMBOSIS Performed By: #### B LTM #### [facility] [address] [place] [address] Dr. Donna Cantrell PT Coag (PPP) [Time] 9.7 s Normal 9.0-11.6 [facility] Comment on above: Performed By: #### B LTM #### [facility] [address] [place] [address] Dr. Donna Cantrell PTTon 10-07-2022 aPTT Coag (Bld) [Time] 29.6 s Normal 22.3-36.2 [facility] Comment on above: Performed By: #### B LTM #### [facility] [address] [place] [address] Dr. Donna Cantrell SCREENING MAMMOGRAM W/AJ, BILATERAL*on [...] VERY IMPORTANT TO YOUR HEALTH. THE CURRENT [place] [employer] GUIDELINES RECOMMENDS ANNUAL MAMMOGRAPHY BEGINNING AT AGE 38 THIS FACILITY USES A REMINDER SYSTEM TO ENSURE ALL PATIENTS RECEIVE REMINDER NOTIFICATIONS AT THE APPROPRIATE TIME BASED ON THE RECOMMENDATIONS OF THIS EXAM. Report reported and signed by Eder Barraza on 07/01/2022 1545 Normal [facility] [employer] XR Shoulder Complete Right*o n 07-01-2022 XR [...] by Eder Barraza on 07/02/2022 0746 Normal [facility] [employer] XR Spine Lumbar Complete w/F jama AND [place] 07-01-2022 XR Spine Lumbar Complete w/Flex AND [...] by Eder Barraza on 07/02/2022 0744 Normal [facility] [place] [facility]20[facility]AMAR[facility]IT[facility] LEXI GARCIA ([id number]) 1970 F Date Time Provider Department 12/17/21 GAYLE WASHINGTON During your visit today, we recorded the following information about you: Gayle Washington MD 12/17/2021 2:54 PM Signed Please Call patient if MyChart note not read to review results/released to My Chart if tests completed at [facility]: Mildly low vitamin D- increase [...] PO Daily January 07, 2021 7:15am - rovcq-zt-8-pqm-wbc-blogftk-as t 1,410-043-14-80 mg cap Take by mouth. - PNV [...] - Estradiol (more content not included)... Normal [facility] BLEEDING TIMEon 12-16-2021 BLEEDING TIME 7.0 min Normal 1.0-8.0 [facility] Comment on above: Result Comment: test done by Selam Almodovar Performed By: #### B LTM #### [facility] [address] [place] [address] Dr. Donna Cantrell 25(OH)D3 [facility] 25-hydroxyvitamin D3 [Mass/Vol] 29.6 ng/mL Low 31.0-80.0 [facility] Comment on above: Order Comment: Speci men Type: BLOOD SPECIMEN Ordering Facility: [facility] Address: [address] [place] [address] Result Comment: Clas sification of 25 [place] Vitamin D status: Deficiency/Insufficiency: < or = 30 ng/ml. Sufficiency/Optimal Levels: 31-80 ng/mL Toxicity: > 100 ng/mL. Test performed by chemiluminescent immunoassay. Performed By: #### 1 989-3 #### [facility] CLIA [id number] [address] [place], [place] [address]K [address] [place] CBC panel Auto (Bld)on 12-12 Erythrocyte distribution width (RBC) [Ratio] 14.4 % Normal 11.5-15.0 [facility] Comment on above: Order Comment: Speci men Type: BLOOD SPECIMEN Ordering Facility: [facility] Address: [address] [place] [address] Performed By: #### 5 8410-2 #### [facility] CLIA [id number] [address] [place] [address] [place] Hematocrit (Bld) [Volume fraction] 45.2 % Normal 36.0-46.0 [facility] Comment on above: Order Comment: Speci men Type: BLOOD SPECIMEN Ordering Facility: [facility] Address: [address] [place] [address] Performed By: #### 5 8410-2 #### [facility] CLIA [id number] [address] [place] [address] [place] Hemoglobin (Bld) [Mass/Vol] 14.8 g/dL Normal 11.5-15.5 [facility] Comment on above: Order Comment: Speci men Type: BLOOD SPECIMEN Ordering Facility: [facility] Address: [address] [place] [address] Performed By: #### 5 8410-2 #### [facility] CLIA [id number] [address] [place] [address] [place] MCH (RBC) [Entitic mass] 29.7 pg Normal 26.0-34.0 [facility] Comment on above: Order Comment: Speci men Type: BLOOD SPECIMEN Ordering Facility: [facility] Address: [address] [place], [place] [address] Performed By: #### 5 8410-2 #### [facility] CLIA [id number] [address] [place] [address] [place] MCHC (RBC) [Mass/Vol] 32.7 g/dL Normal 30.5-36.0 [facility] Comment on above: Order Comment: Speci men Type: BLOOD SPECIMEN Ordering Facility: [facility] Address: [address] [place] [address] Performed By: #### 5 8410-2 #### [facility] CLIA [id number] [address] [place] [address] [place] MCV (RBC) [Entitic vol] 90.8 fL Normal 80.0-100.0 [facility] Comment on above: Order Comment: Speci men Type: BLOOD SPECIMEN Ordering Facility: [facility] Address: [address] [place] [address] Performed By: #### 5 8410-2 #### [facility] CLIA [id number] [address] [place] [address] [place] Nucleated RBC (Bld) [#/Vol] 10*3/uL Normal <0.01 [facility] Comment on above: Order Comment: Speci men Type: BLOOD SPECIMEN Ordering Facility: [facility] Address: [address] [place] [address] Performed By: #### 5 8410-2 #### [facility] CLIA [id number] [address] [place] [address] [place] Platelet mean volume (Bld) [Entitic vol] 10.7 fL Normal 9.0-12.7 [facility] Comment on above: Order Comment: Speci men Type: BLOOD SPECIMEN Ordering Facility: [facility] Address: [address] [place] [phone] Performed By: #### 5 8410-2 #### [facility] CLIA [id number] [address] [place]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 S UR ####[facility] [facility] [phone] COVID-19, NAAon 06-20-2020 COVID-19, BELLE Not Detected Normal Not Detect [facility] Comment on above: Result Comment: This nucleic acid amplification test was developed and its performance characteristics determined by [employer]. Nucleic acid amplification tests include PCR and [...] [facility], [place] [id number] Ingot Stripper: Altagracia Quiñonez MD, Phone: [phone] Performed By: #### I RCOV #### [facility] [address] [place] [address] Basic Metabolic Panelon 12-1 5-2020 Anion gap [Moles/Vol] 11 mmol/L Normal 9-15 [facility] Comment on above: Performed By: #### B MP #### [facility] [address] [place] [address] Calcium [Mass/Vol] 9.0 mg/dL Normal 8.5-9.9 [facility] Comment on above: Performed By: #### B MP #### [facility] [address] [place] [address] Chloride [Moles/Vol] 106 mmol/L Normal 95-107 [facility] Comment on above: Performed By: #### B MP #### [facility] [address] [place] [address] CO2 [Moles/Vol] 23 mmol/L Normal 20-31 [facility] Comment on above: Performed By: #### B MP #### [facility] [address] [place] [address] Creatinine [Mass/Vol] 0.76 mg/dL Normal 0.50-0.90 [facility] Comment on above: Performed By: #### B MP #### [facility] [address] [place] [address] GFR/1.73 sq M predicted among blacks MDRD (S/P/Bld) [Vol rate/Area] mL/min/{1.73_m2} Normal >60 [facility] Comment on above: Result Comment: >60 mL/min/1.73m2 EGFR, calc. for ages 18 and older using the MDRD formula (not corrected for weight), is valid for stable renal function. Performed By: #### B MP #### [facility] [address] [place] [address] GFR/1.73 sq M.predicted MDRD (S/P/Bld) [Vol rate/Area] mL/min/{1.73_m2} Normal >60 [facility] Comment on above: Result Comment: >60 mL/min/1.73m2 EGFR, calc. for ages 18 and older using the MDRD formula (not corrected for weight), is valid for stable renal function. Performed By: #### B MP #### [facility] [address] [place] [address] Glucose [Mass/Vol] 87 mg/dL Normal 70-99 [facility] Comment on above: Performed By: #### B MP #### [facility] [address] [place] [address] Potassium [Moles/Vol] 3.8 mmol/L Normal 3.4-4.9 [facility] Comment on above: Performed By: #### B MP #### [facility] [address] [place] [address] Sodium [Moles/Vol] 140 mmol/L Normal 135-144 [facility] Comment on above: Performed By: #### B MP #### [facility] [address] [place] [address] Urea nitrogen [Mass/Vol] 20 mg/dL Normal 6-20 [facility] Comment on above: Performed By: #### B MP #### [facility] [address] [place] [address] CBC With Platelet No Differe ntialon 06-18-2020 Erythrocyte distribution width (RBC) [Ratio] 14.2 % Normal 11.5-14.5 [facility] Comment on above: Performed By: #### C BCND #### [facility] [address] [place] [address] Hematocrit (Bld) [Volume fraction] 41.5 % Normal 37.0-47.0 [facility] Comment on above: Performed By: #### C BCND #### [facility] [address] [place] [address] Hemoglobin (Bld) [Mass/Vol] 14.3 g/dL Normal 12.0-16.0 [facility] Comment on above: Performed By: #### C BCND #### [facility] [address] [place] [address] MCH (RBC) [Entitic mass] 31.4 pg Critically high 27.0-31.3 [facility] Comment on above: Performed By: #### C BCND #### [facility] [address] [place] [address] MCHC (RBC) [Mass/Vol] 34.5 % Normal 33.0-37.0 [facility] Comment on above: Performed By: #### C BCND #### [facility] [address] [place] [address] MCV (RBC) [Entitic vol] 91.2 fL Normal 82.0-100.0 [facility] Comment on above: Performed By: #### C BCND #### [facility] [address] [place] [address] Platelets (Bld) [#/Vol] 241 10*3/uL Normal 130-400 [facility] Comment on above: Performed By: #### C BCND #### [facility] [address] [place] [address] RBC (Bld) [#/Vol] 4.55 10*6/uL Normal 4.20-5.40 [facility] Comment on above: Performed By: #### C BCND #### [facility] [address] [place] [address] WBC (Bld) [#/Vol] 9.7 10*3/uL Normal 4.8-10.8 [facility] Comment on above: Performed By: #### C BCND #### [facility] [address] [facility] [place] [address] COVID-19, NAAon 06-18-2020 Source Swab CAR SCRUBBER swab Normal [facility] Comment on above: Performed By: #### I RCOV #### [facility] [address] [facility] [place] [address] Prothrombin Timeon 0 INR Coag (PPP) [Relative time] 1.0 {INR} Normal [facility] Comment on above: Performed By: #### P T ####[facility] [facility] [phone] PT Coag (PPP) [Time] 13.1 s Normal 12.3-14.9 [facility] Comment on above: Performed By: #### P T ####[facility] [facility] [place] [phone] Type and Screen Capture 3 sc rn cellon 06-18-2020 Type and Screen Capture 3 scrn cell PATIENT: JOSHUA Doss LOC: [facility] BILL# : [id number] : 1970 SEX: F ORDERED BY: TEENA Lowe ORDERED : 06/18/2020 15:07 COLLECTED: 06/18/2020 15:36 ORDER : [id number] RECEIVED : 06/18/2020 15:36 Second, confirmatory specimen needed to satisfy Group O policy. TEST NAME RESULT UNITS RANGES ABN FL ST [facility] Capture O POS F Antibody 3 Cell Scrn Captu NEG F Normal [facility] Comment on above: Performed By: #### T S3C #### [facility] [address] [place] [address] XR SPINE ENTIRE (2-3 VIEWS)o n 06-18-2020 [...] Ash Horta MD 06/19/20 Final result Normal [facility] FLUORO FOR SURGICAL PROCEDUR ESon [...] Maximiliano Rachel MD 05/09/20 Final result Normal [facility] COVID-19, NAAon 05-05-2020 COVID-19, BELLE Not Detected Normal Not Detect [facility] Comment on above: Result Comment: This nucleic acid amplification test was developed and its performance characteristics determined by [employer]. Nucleic acid amplification tests include PCR and [...] [facility] [address] [facility], [place] [id number] Ingot Stripper: Altagracia Quiñonez MD, Phone: [phone] Performed By: #### I RCOV ####[facility] [facility] [phone] Basic Metabolic Panelon 10-3 0 Anion gap [Moles/Vol] 12 mmol/L Normal 9-15 [facility] Comment on above: Performed By: #### B MP #### [facility] [address] [place] [address] Calcium [Mass/Vol] 10.5 mg/dL Critically high 8.5-9.9 [facility] Comment on above: Performed By: #### B MP #### [facility] [address] [place] [address] Chloride [Moles/Vol] 98 mmol/L Normal 95-107 [facility] Comment on above: Performed By: #### B MP #### [facility] [address] [place] [address] CO2 [Moles/Vol] 27 mmol/L Normal 20-31 [facility] Comment on above: Performed By: #### B MP #### [facility] [address] [place] [address] Creatinine [Mass/Vol] 0.82 mg/dL Normal 0.50-0.90 [facility] Comment on above: Performed By: #### B MP #### [facility] [address] [place] [address] GFR/1.73 sq M predicted among blacks MDRD (S/P/Bld) [Vol rate/Area] mL/min/{1.73_m2} Normal >60 [facility] Comment on above: Result Comment: >60 mL/min/1.73m2 EGFR, calc. for ages 18 and older using the MDRD formula (not corrected for weight), is valid for stable renal function. Performed By: #### B MP #### [facility] [address] [place] [address] GFR/1.73 sq M.predicted MDRD (S/P/Bld) [Vol rate/Area] mL/min/{1.73_m2} Normal >60 [facility] Comment on above: Result Comment: >60 mL/min/1.73m2 EGFR, calc. for ages 18 and older using the MDRD formula (not corrected for weight), is valid for stable renal function. Performed By: #### B MP #### [facility] [address] [place] [address] Glucose [Mass/Vol] 84 mg/dL Normal 70-99 [facility] Comment on above: Performed By: #### B MP #### [facility] [address] [place] [address] Potassium [Moles/Vol] 4.6 mmol/L Normal 3.4-4.9 [facility] Comment on above: Performed By: #### B MP #### [facility] [address] [place] [address] Sodium [Moles/Vol] 137 mmol/L Normal 135-144 [facility] Comment on above: Performed By: #### B MP #### [facility] [address] [place] [address] Urea nitrogen [Mass/Vol] 31 mg/dL Critically high 6-20 [facility] Comment on above: Performed By: #### B MP #### [facility] [address] [place] [address] CBC With Platelet No Differe ntialon 05-03-2020 Erythrocyte distribution width (RBC) [Ratio] 14.3 % Normal 11.5-14.5 [facility] Comment on above: Performed By: #### C BCND #### [facility] [address] [place] [address] Hematocrit (Bld) [Volume fraction] 41.3 % Normal 37.0-47.0 [facility] Comment on above: Performed By: #### C BCND #### [facility] [address] [place] [address] Hemoglobin (Bld) [Mass/Vol] 13.6 g/dL Normal 12.0-16.0 [facility] Comment on above: Performed By: #### C BCND #### [facility] [address] [place] [address] MCH (RBC) [Entitic mass] 30.7 pg Normal 27.0-31.3 [facility] Comment on above: Performed By: #### C BCND #### [facility] [address] [place] [address] MCHC (RBC) [Mass/Vol] 33.0 % Normal 33.0-37.0 [facility] Comment on above: Performed By: #### C BCND #### [facility] [address] [place] [address] MCV (RBC) [Entitic vol] 92.9 fL Normal 82.0-100.0 [facility] Comment on above: Performed By: #### C BCND #### [facility] [address] [place] [address] Platelets (Bld) [#/Vol] 241 10*3/uL Normal 130-400 [facility] Comment on above: Performed By: #### C BCND #### [facility] [address] [place] [address] RBC (Bld) [#/Vol] 4.44 10*6/uL Normal 4.20-5.40 [facility] Comment on above: Performed By: #### C BCND #### [facility] [address] [place] [address] WBC (Bld) [#/Vol] 11.0 10*3/uL Critically high 4.8-10.8 [facility] Comment on above: Performed By: #### C BCND #### [facility] [address] [place] [address] COVID-19, NAAon 05-03-2020 Source Swab Anterior nares Normal [facility] Comment on above: Performed By: #### I RCOV ####[facility] [place] [phone] Partial Thromboplastin Timeo n 05-03-2020 aPTT Coag (Bld) [Time] 31.3 s Normal 24.4-36.8 [facility] Comment on above: Performed By: #### P TT #### [facility] [address] [place] [address] Prothrombin Timeon 0 INR Coag (PPP) [Relative time] 0.9 {INR} Normal [facility] Comment on above: Performed By: #### P T #### [facility] [address] [place] [id number] PT Coag (PPP) [Time] 11.9 s Low 12.3-14.9 [facility] Comment on above: Performed By: #### P T #### [facility] [address] [place] [address] Type and Screen Capture 3 sc rn cellon 05-03-2020 Type and Screen Capture 3 scrn cell PATIENT: JOSHUA Doss LOC: [facility] BILL# : [id number] : 1970 SEX: F ORDERED BY: STEPHANIE Harrison ORDERED : 05/03/2020 14:14 COLLECTED: 05/03/2020 14:14 ORDER : [id number] RECEIVED : 05/03/2020 19:43 TEST NAME RESULT UNITS RANGES ABN FL ST [facility] Capture O POS F Antibody 3 Cell Scrn Captu NEG F Normal [facility] Comment on above: Performed By: #### T S3C #### [facility] [address] [place] [id number] Established Visit (Orthopaed ic Surgery)on 04-26-2020 Established [...] biceps. No pain with resisted elbow flexion. 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 Shoulder [...] Chiara Espinosa PA-C Department of Orthopaedic Surgery [facility] Dictation performed with the use of voice recognition software. Syntax and grammatical errors may exist. Active Problems Problems Shoulder pain (719.41) (M25.519) Signatures Electronically signed by : Chiara Espinosa PA-C; Apr 26 2020 3:56PM EST (Author) Normal [facility] Initial Visit (Orthopaedic S urgery)on 04-17-2020 Initial Visit (Orthopaedic Surgery) Diagnoses/Problems Assessed Shoulder pain (719.41) (M25.519) Patient Discussion/Summary Patient has right shoulder pain of uncertain origin. Exam today is suggestive of subacromial origin of pain. MRI scan shows tendinopathy but not an obvious tear. I recommended having her MRI scans evaluated by the musculoskeletal radiologist at [facility] I will call the patient back with [...] her light touch sensation is grossly intact. Ground Water Pump Installer strength is 5/5 elbow flexion 5/5 [...] Apr 17 2020 4:45PM EST (Author) Normal [facility] Vital Signs Date Time Vital Sign Value Performing Clinician Facility 02-13-2025 14:48-0400 Body height 162.6 cm Hazel Velásquez MD Work Phone: [facility] 02-13-2025 14:48-0400 Body mass index (BMI) [Ratio] 33.44 kg/m2 Hazel Velásquez MD Work Phone: [facility] 02-13-2025 14:48-0400 Body weight 88.36 kg Hazel Velásquez MD Work Phone: [facility] 02-13-2025 14:48-0400 Diastolic blood pressure 80 mm[Hg] Hazel Velásquez MD Work Phone: [facility] 02-13-2025 14:48-0400 Heart rate 85 /min Hazel Velásquez MD Work Phone: [facility] 02-13-2025 14:48-0400 SaO2% (BldA) [Mass fraction] 96 % Hazel Velásquez MD Work Phone: [facility] 02-13-2025 14:48-0400 Systolic blood pressure 122 mm[Hg] Hazel Velásquez MD Work Phone: [facility] 01-03-2025 15:54-0400 Body height 162.6 cm John Gauthier DPM Work Phone: [facility] 01-03-2025 15:54-0400 Body mass index (BMI) [Ratio] 34.16 kg/m2 John Gauthier DPM Work Phone: [facility] 01-03-2025 15:54-0400 Body weight 90.27 kg John Gauthier DPM Work Phone: [facility] 11-23-2024 10:50-0400 Body height 162.56 cm [facility] 11-23-2024 10:50-0400 Body mass index (BMI) [Ratio] 33.7 kg/m2 [facility] 11-23-2024 10:50-0400 Body weight 89.35 kg [facility] 11-23-2024 10:50-0400 Diastolic blood pressure 74 mm[Hg] [facility] [facility] 11-23-2024 10:50-0400 Heart rate 80 /min [facility] 11-23-2024 10:50-0400 Systolic blood pressure 108 mm[Hg] [facility] 11-07-2024 09:53-0400 Body height 162.6 cm Hazel Velásquez MD Work Phone: [facility] 11-07-2024 09:53-0400 Body mass index (BMI) [Ratio] 34.16 kg/m2 Hazel Velásquez MD Work Phone: [facility] 11-07-2024 09:53-0400 Body weight 90.27 kg Hazel Velásquez MD Work Phone: [facility] 11-07-2024 09:53-0400 Diastolic blood pressure 64 mm[Hg] Hazel Velásquez MD Work Phone: [facility] 11-07-2024 09:53-0400 Heart rate 91 /min Hazel Velásquez MD Work Phone: [facility] 11-07-2024 09:53-0400 SaO2% (BldA) [Mass fraction] 97 % Hazel Velásquez MD Work Phone: [facility] 11-07-2024 09:53-0400 Systolic blood pressure 118 mm[Hg] Hazel Velásquez MD Work Phone: [facility] 09-04-2024 14:03-0500 Body height 162.56 cm [facility] 09-04-2024 14:03-0500 Body mass index (BMI) [Ratio] 34.3 kg/m2 [facility] 09-04-2024 14:03-0500 Body weight 90.8 kg [facility] 08-21-2024 15:18-0500 Body height 162.6 cm John Gauthier DPM Work Phone: [facility] 08-21-2024 15:18-0500 Body mass index (BMI) [Ratio] 36.56 kg/m2 John Gauthier DPM Work Phone: [facility] 08-21-2024 15:18-0500 Body weight 96.62 kg John Gauthier DPM Work Phone: [facility] 08-08-2024 09:27-0500 Body height 162.6 cm Hazel Velásquez MD Work Phone: [facility] 08-08-2024 09:27-0500 Body mass index (BMI) [Ratio] 36.63 kg/m2 Hazel Velásquez MD Work Phone: [facility] 08-08-2024 09:27-0500 Body weight 96.8 kg Hazel Velásquez MD Work Phone: [facility] 08-08-2024 09:27-0500 Diastolic blood pressure 68 mm[Hg] Hazel Velásquez MD Work Phone: [facility] 08-08-2024 09:27-0500 Heart rate 93 /min Hazel Velásquez MD Work Phone: [facility] 08-08-2024 09:27-0500 SaO2% (BldA) [Mass fraction] 95 % Hazel Velásquez MD Work Phone: [facility] 08-08-2024 09:27-0500 Systolic blood pressure 112 mm[Hg] Hazel Velásquez MD Work Phone: [facility] 07-25-2024 10:00-0500 Body height 162.6 cm John Gauthier DPM Work Phone: [facility] 07-25-2024 10:00-0500 Body mass index (BMI) [Ratio] 37.25 kg/m2 John Gauthier DPM Work Phone: [facility] 07-25-2024 10:00-0500 Body weight 98.43 kg John Gauthier DPM Work Phone: [facility] 07-06-2024 11:23-0500 Body height 162.6 cm Hazel Velásquez MD Work Phone: [facility] 07-06-2024 11:23-0500 Body mass index (BMI) [Ratio] 37.28 kg/m2 Hazel Velásquez MD Work Phone: [facility] 07-06-2024 11:23-0500 Body weight 98.52 kg Hazel Velásquez MD Work Phone: [facility] 07-06-2024 11:23-0500 Diastolic blood pressure 82 mm[Hg] Hazel Velásquez MD Work Phone: [facility] 07-06-2024 11:23-0500 Heart rate 82 /min Hazel Velásquez MD Work Phone: [facility] 07-06-2024 11:23-0500 SaO2% (BldA) [Mass fraction] 96 % Hazel Velásquez MD Work Phone: [facility] 07-06-2024 11:23-0500 Systolic blood pressure 126 mm[Hg] Hazel Velásquez MD Work Phone: [facility] 06-09-2024 11:15-0500 Diastolic blood pressure 93 mm[Hg] Maximiliano You MD [facility] Phone[facility] [employer] 06-09-2024 11:15-0500 Heart rate 90 /min Maximiliano You MD Work Phone: [facility] [employer] 06-09-2024 11:15-0500 Respiratory rate 20 /min Maximiliano You MD Work Phone: [facility] [employer] 06-09-2024 11:15-0500 SaO2% (BldA) [Mass fraction] 95 % Maximiliano You MD Work Phone: [facility] [employer] 06-09-2024 11:15-0500 Systolic blood pressure 151 mm[Hg] Maximiliano You MD Work Phone: [facility] [employer] 06-09-2024 10:45-0500 Body temperature 96.91 [degF] Maximiliano You MD Work Phone[facility] [employer] 06-09-2024 09:48-0500 Body height 162.6 cm Maximiliano You MD Work Phone: [facility] [employer] 06-09-2024 09:48-0500 Body mass index (BMI) [Ratio] 37.25 kg/m2 Maximiliano You MD Work Phone[facility] 06-09-2024 09:48-0500 Body weight 98.43 kg Maximiliano You MD Work Phone: [facility] [employer] 12-12-2021 10:43-0400 Body weight 97.52 kg Gayle [...] blood pressure 80 mm[Hg] Emmett Brunner Other [email or web address] Other 10-14-2021 10:30-0400 SaO2% (BldA) [Mass fraction] 98 % Emmett Brunner Other [email or web address] Other 10-14-2021 10:30-0400 Systolic blood pressure 130 mm[Hg] Emmett Brunner Other [email or web address] Other 07-01-2021 15:30-0500 Body weight 94.62 kg Letty Wesley Other [email or web address] Other 07-01-2021 15:30-0500 Diastolic blood pressure 78 mm[Hg] Letty Wesley Other [email or web address] Other 07-01-2021 15:30-0500 Respiratory rate 18 /min Letty Wesley Other [email or web address] Other 07-01-2021 15:30-0500 SaO2% (BldA) [Mass fraction] 98 % Letty Wesley Other [email or web address] Other 07-01-2021 15:30-0500 Systolic blood pressure 118 mm[Hg] Lettyra Olson Other [email or web address] Other 06-18-2021 15:45-0500 Diastolic blood pressure 90 mm[Hg] Emmett Kannan Other [email or web address] Other 06-18-2021 15:45-0500 SaO2% (BldA) [Mass fraction] 97 % Emmett Brunner Other [email or web address] Other 06-18-2021 15:45-0500 Systolic blood pressure 122 mm[Hg] Emmett Kannan Other [email or web address] Other 05-15-2021 17:30-0500 Body weight 92.53 kg Emmett Brunner Other [email or web address] Other 05-15-2021 17:30-0500 Diastolic blood pressure 80 mm[Hg] Emmett Kannan Other [employer] Other 05-15-2021 17:30-0500 Systolic blood pressure 130 mm[Hg] Emmett Brunner Other [email or web address] Other 04-02-2021 14:30-0400 Body weight 92.63 kg Emmett Kannan Other [email or web address] Other 04-02-2021 14:30-0400 Diastolic blood pressure 88 mm[Hg] Emmett Kannan Other [email or web address] Other 04-02-2021 14:30-0400 SaO2% (BldA) [Mass fraction] 98 % Emmettarmani Brunner Other [email or web address] Other 04-02-2021 14:30-0400 Systolic blood pressure 140 mm[Hg] Emmett Brunner Other [employer] Other Encounters Encounter Date Encounter Type Care Provider Facility Start: 02-19-2025 End: 02-19-2025 ambulatory Rosibel Cotton MD Facility:[facility] Start: 02-13-2025 End: 02-13-2025 ambulatory HAZEL VELÁSQUEZ Not Available Start: 02-13-2025 End: 02-13-2025 Office outpatient visit 25 minutes Hazel Velásquez MD Work Phone: [facility] Comment on above: Nicotine abuse (Prim steffanie Dx); Type 2 diabetes mellitus without complication, without long-term current use of insulin (HCC); Nausea and vomiting, unspecified vomiting type; Memory loss; Marijuana smoker Start: 02-13-2025 End: 02-13-2025 Three Ringslong Velásquez MD Work Phone: [facility] Start: 02-13-2025 End: 02-13-2025 Three Ringslong Velásquez MD Work Phone: [facility] Start: 02-13-2025 Patient encounter status Lisa Velásquez MD Work Phone: [facility] Start: 01-03-2025 End: 01-03-2025 Office outpatient visit 15 minutes John Gauthier DPM Work Phone: [facility] Comment on above: Onychomycosis (Prima ry Dx); Onychodystrophy; Corns and callosities; Diabetic polyneuropathy associated with type 2 diabetes mellitus (HCC); Ingrown toenail; Pain in both feet Start: 01-03-2025 End: 01-03-2025 ambulatory JOHN GAUTHIER Not Available Start: 01-03-2025 End: 01-03-2025 [employer] John Gauthier DPM Work Phone: [facility] Start: 01-03-2025 End: 01-03-2025 [employer] flowsheet John Gauthier DPM Work Phone: [facility] Start: 12-04-2024 End: 12-04-2024 Follow-up encounter Hazel Velásquez MD Work Phone: [facility] Start: 12-01-2024 End: 12-01-2024 Follow-up encounter Hazel Velásquez MD Work Phone: [facility] Start: 12-01-2024 End: 12-01-2024 ambulatory HAZEL VELÁSQUEZ Not Available Start: 11-23-2024 End: 11-23-[address] [facility] Work Phone: Start: 11-23-2024 End: 11-23-2024 Patient encounter procedure [facility] Work Phone: Start: 11-18-2024 End: 11-18-2024 Refill Hazel Velásquez MD Work Phone: [facility] Comment on above: Type 2 diabetes anne itus without complication, without long- term current use of insulin Start: 11-08-2024 End: 11-08-2024 ambulatory [facility] Start: 11-07-2024 End: 11-07-2024 Bamboo flowsheet Hazel [...] 11-06-2024 End: 11-06-2024 ambulatory Rosibel Cotton MD Facility:[facility] Start: 10-17-2024 End: 10-17-2024 ambulatory [facility] Start: 09-27-2024 End: 09-27-2024 Bamboo flowsheet Lukas Luz RN [facility] Start: 09-27-2024 End: 09-27-2024 [employer]amboo flowsheet Lukas Alt RN [facility] Start: 09-27-2024 End: 09-27-2024 ambulatory LUKAS ALT Not Available Start: 09-11-2024 End: 09-11-2024 Telephone encounter Hazel Velásquez MD Work Phone: [facility] Start: 09-04-2024 End: 09-04-[address] [facility] Work Phone: Start: 09-04-2024 End: 09-04-2024 Patient encounter procedure [facility] Work Phone: Start: 08-24-2024 End: 08-24-2024 Bamboo flowsheet Lukas Alt RN [facility] Start: 08-24-2024 End: 08-24-2024 Bamboo flowsheet Lukas Alt RN [facility] Start: 08-24-2024 End: 08-24-2024 ambulatory LUKAS ALT Not Available Start: 08-21-2024 End: 08-21-2024 ambulatory JOHN GAUTHIER Not Available Start: 08-21-2024 End: 08-21-2024 Office outpatient visit 15 minutes John Gauthier DPM Work Phone: [facility] Comment on above: Corns and [...] essential HTN (CMS/HCC); 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); Gastroesophageal reflux [...] [employer] John Gauthier DPM Work Phone: [facility] Start: 07-25-2024 End: 07-25-2024 Bamboo flowsheet John Gauthier DPM Work Phone: [facility] Start: 07-25-2024 End: 07-25-2024 Office outpatient visit 15 minutes John Gauthier DPM Work Phone: [facility] Comment on above: Diabetic polyneuropa [...] (CMS/HCC) (Primary Dx); 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); Factor 5 Leiden mutation, heterozygous (CMS/HCC); Bipolar 1 disorder (CMS/HCC); Cigarette smoker; Mixed hyperlipidemia (CMS/HCC); Type 2 diabetes mellitus without complication, without long-term current use of insulin (CMS/HCC); Encounter for screening mammogram for malignant neoplasm of breast Start: 07-06-2024 End: 07-06-2024 ambulatory HAZEL VELÁSQUEZ Not Available Start: 07-03-2024 End: 07-03-2024 ambulatory Rosibel Cotton MD Facility:[facility] Start: 06-09-2024 End: 06-09-2024 ambulatory MAXIMILIANO YOU [facility] Start: 06-09-2024 End: 06-09-2024 Subsequent hospital visit by physician Maximiliano You MD Work Phone: [facility] Comment on above: GERD (gastroesophage al reflux disease) Start: 06-05-2024 End: 06-05-2024 ambulatory Rosibel Cotton MD Facility:[facility] Start: 05-04-2024 End: 05-04-2024 ambulatory [facility] Start: 04-10-2024 End: 04-10-2024 ambulatory Rosibel Cotton MD Facility:[facility] Start: 02-03-2024 End: 02-03-2024 ambulatory NANCY LUDWIG [facility] Start: 01-12-2024 End: 01-12-2024 ambulatory NICOLEFAHAD TELLES [facility] Start: 01-12-2024 Encounter for other preprocedural examination [facility] Start: 09-13-2023 End: 09-13-2023 Subsequent hospital visit by physician [facility] Comment on above: Flatulence, eructati on and gas pain Start: 09-13-2023 End: 09-13-2023 ambulatory NICOLE R [facility] Start: 09-13-2023 Encounter for other preprocedural examination [facility] Start: 04-07-2023 ambulatory Gayle Washington MD Work Phone: Rheumatology Comment on above: Fax info Start: 10-16-2022 Encounter for preprocedural cardiovascular examination DR ULISES TIM [facility] Start: 10-16-2022 Encounter for preprocedural laboratory examination DR ULISES TIM [facility] Start: 10-13-2022 End: 10-13-[address] [...] Pain Management Start: 12-12-2021 End: 12-13-2021 ambulatory [facility] Other Start: 12-12-2021 End: 12-12-2021 Patient encounter [...] Facility:[facility] Start: 10-29-2021 Chart Update Cristobal F Dil ler Work Phone: [id number] Work Phone: Start: 10-14-2021 End: 10-14-2021 ambulatory Emmett Brunner Other [email or web address] Other Start: 10-14-2021 Patient encounter procedure Emmett Brunner [facility] Start: 09-23-2021 End: 09-23-2021 ambulatory Emmett Brunner Other [email or web address] Other Start: 09-23-2021 Telephone encounter Emmett Brunner [facility] Start: 07-01-2021 End: 07-01-2021 ambulatory Lettyra Olson Other [email or web address] Other Start: 07-01-2021 Office outpatient vi sit 25 minutes Lettyra Olson [facility] Start: 06-26-2021 (Procedure) Short Emmett Brunner [facility] Start: 06-26-2021 End: 06-26-2021 ambulatory Emmett Brunner Other [email or web address] Other Start: 06-18-2021 End: 06-18-2021 ambulatory Emmett Brunner Other [email or web address] Other Start: 06-18-2021 Office outpatient vi sit 25 minutes Emmett Brunner [facility] Start: 06-18-2021 Telephone encounter Emmett Brunner [facility] Start: 06-04-2021 End: 06-04-2021 Subsequent hospital visit by physician [facility] Comment on above: Chronic hip pain, bi lateral [M25.551, M25.552, G89.29] Start: 05-21-2021 (Procedure) Short Emmett Brunner [facility] Start: 05-21-2021 End: 05-21-2021 ambulatory Emmett Brunner Other [email or web address] Other Start: 05-15-2021 End: 05-15-2021 ambulatory Emmett Brunner Other [facility] [employer] Other Start: 05-15-2021 Office outpatient vi sit 25 minutes Emmett Brunner [facility] Start: 04-30-2021 (Procedure) Short Emmett Brunner [facility] Start: 04-16-2021 (Procedure) Short Emmett Brunner [facility] Start: 04-02-2021 Office outpatient vi sit 25 minutes Emmett Brunner [facility] Start: 02-21-2021 Office outpatient vi sit 15 minutes Cristobal Berta Genoveva Work Phone: [id number] Work Phone: Start: 06-25-2020 End: 06-27-2020 Evaluation and management of inpatient FEMI [facility] Start: 06-25-2020 End: 06-28-2020 Patient encounter procedure [facility] Start: 06-18-2020 End: 06-23-2020 Patient encounter procedure [facility] Start: 05-09-2020 End: 05-09-2020 [facility] Procedures Date Procedure Procedure Detail Performing Clinician Start: 02-13-2025 Hemoglobin glycosylated a1c Hazel hernandez MD Work Phone: Start: 12-01-2024 Mammography Hazel Velásquez MD Work Phone: Start: 11-08-2024 Hemoglobin glycosylated a1c Hazel hernandez MD Work Phone: Start: 06-09-2024 Esophagogastroduodenoscopy Maximiliano salinas MD Work Phone: Start: 09-13-2023 Assay of gammaglobulin iga igd igg igm each Nicole Telles [employer]ILITIES SERVICES OFFICER - [employer] Work Phone: Start: 02-11-2023 H/O: hysterectomy S/P [...] Start: 01-25-2027 Glaucoma screening Diabetes: Retinopathy Screening [facility] Start: 03-16-2026 Screening for malignant neoplasm of colon [facility] Start: 12-01-2025 Screening for malignant neoplasm of breast Mammogram [facility] Start: 11-07-2025 Medicare Annual Wellness (AWV) Medicare Annual Wellness (AWV ) [facility] Start: 08-08-2025 Urine screening for protein Diabetes: Urine Protein Screening [facility] Start: 05-17-2025 End: 05-17-2025 Patient encounter procedure 05/17/2025 10:20 AM EST Of fice Visit [facility] [address] [facility] [place] [phone] Hazel Velásquez MD [address] [facility] [place] [address] [facility] Start: 05-16-2025 Hemoglobin A1c measurement Diabetes: Hemoglobin A1C [facility] Start: 04-06-2025 End: 04-06-2025 Patient encounter procedure [facility] Start: 03-05-2025 Influenza vaccination [facility] Start: 02-08-2025 Hemoglobin A1c measurement Diabetes: Hemoglobin A1C [facility] Start: 02-08-2025 End: 02-08-2025 Patient encounter procedure 02/08/2025 10:00 AM EDT Of fice Visit [facility] [address] [place] [phone] Hazel Velásquez MD [address] [facility] [place] [place], [place] [phone] [facility] Start: 01-03-2025 End: 01-03-2025 Patient encounter procedure 01/03/2025 4:00 PM EDT Off ice Visit [facility] [address] [place] [phone] John Gauthier, LUCRETIAM [address] [place], [place] [id number] Arrived [facility] Comment on above: Arrived Start: 12-12-2024 DIABETES SCREEN DIABETES SCREEN [facility] Start: 12-12-2024 Diabetes Screening Diabetes Screening [facility] Start: 12-01-2024 End: 12-01-2024 Professional / ancillary services management [facility] Start: 11-07-2024 End: 11-07-2025 CT Chest for screening WO contrast CT lung screening low dose Imaging Routine Nicotine abuse Nicotine dependence, cigarettes, in remission Expected: 11/07/2024, Expires: 11/07/2025 [facility] Comment on above: Expected: 11/07/2024, Expires: Start: 11-07-2024 End: 11-07-2025 US Soft Tissue Palpable Mass US Soft Tissue Palpable M ass Imaging Routine Cyst, dermoid, arm, right Expected: 11/07/2024, Expires: 11/07/2025 [facility] Work Phone: Comment on above: Expected: 11/07/2024, Expires: Start: 11-07-2024 End: 11-07-2024 Patient encounter procedure [facility] Comment on above: Arrived Start: 11-01-2024 Hemoglobin A1c measurement Diabetes: Hemoglobin A1C [facility] Start: 10-24-2024 End: 10-24-2024 Patient encounter procedure 10/24/2024 10:15 AM EDT Procedure Visit [facility] [address] [place] [phone] John Gauthier, LUCRETIAM [address] [place], [place] [phone] [facility] Start: 09-27-2024 End: 09-27-2024 Clinical Support 09/27/2024 10:30 AM EDT Clinical Support [facility] [address] [place] [phone] Lukas Luz RN Arrived [facility] Comment on above: Arrived Start: 09-26-2024 End: 09-26-2024 Clinical Support 09/26/2024 11:30 AM EDT Clinical Support [facility] [address] [place] [phone] Lukas Luz RN [facility] Start: 08-24-2024 End: 08-24-2024 Clinical Support [facility] Comment on above: Arrived Start: 08-17-2024 Hemoglobin A1c measurement Diabetes: Hemoglobin A1C [facility] Start: 08-08-2024 End: 08-08-2025 Microalbumin/Creatinine panel in random Urine Microalbumin / creatinine, urine ratio Lab Routine Poorly controlled type 2 diabetes mellitus with neuropathy ([facility]/HCC) Expected: 08/08/2024 (Approximate), Expires: 08/08/2025 [facility] Work Phone: Comment on above: Expected: 08/08/2024 (Approximate), Expi res: 08/08/2025 Start: 08-08-2024 End: 08-08-2024 Patient encounter procedure [facility] Comment on above: Arrived Start: 07-26-2024 End: 07-26-2024 Clinical Support [facility] Comment on above: Type 2 diabetes mellitus without complic ation, without long-term current use of insulin (CMS/HCC) (Primary Dx); Bipolar 1 disorder (CMS/HCC) Start: 07-25-2024 End: 07-25-2024 Patient encounter procedure [facility] Comment on above: Arrived Start: 07-06-2024 End: 09-03-2025 DBT Breast - bilateral screening Bilateral screening mammogram with tomosynthesis Imaging Routine Encounter for screening mammogram for malignant neoplasm of breast Expected: 07/06/2024, Expires: 09/03/2025 [facility] Work Phone: Comment on above: Expected: 07/06/2024, Expires: Start: 07-06-2024 End: 07-06-2024 Patient encounter procedure 07/06/2024 11:30 AM EST Of fice Visit [facility] [address] [place] [phone] Hazel Velásquez MD [address] [place] [place], [place] [phone] Arrived [facility] Comment on above: Arrived Start: 07-01-2024 Screening for malignant neoplasm of breast Breast cancer screen [facility] Start: 06-09-2024 End: 06-09-2024 Esophagogastroduodenoscopy transoral diagnostic ESOPHAGOGASTRODUODENOSCOPY GERD (gastroesophageal reflux disease) 06/09/2024 10:28 AM EST [facility] Start: 03-05-2024 COVID-19 Vaccine ( season) COVID-19 Vaccine ( season) [facility] Start: 03-05-2024 Influenza vaccination Influenza Vaccine (#1) [facility] Start: 02-12-2024 Medicare Annual Wellness (AWV) Medicare Annual Wellness (AWV ) [facility] Start: 02-03-2024 Influenza vaccination Flu vaccine (#1) [facility] Start: 02-03-2024 End: 02-03-2024 Admission to same day surgery center 02/03/2024 8:45 AM EDT - 02/03/2024 9:05 AM EDT Surgery [facility] [address] [place], [place] [phone] Nancy Ludwig MD [address] [place], [place] [phone] ESOPHAGOGASTRODUODENOSCOPY [facility] Comment on above: ESOPHAGOGASTRODUODENOSCOPY Start: 02-03-2024 End: 02-03-2024 Esophagogastroduodenoscopy transoral diagnostic ESOPHAGOGASTRODUODENOSCOPY Chronic GERD 02/03/2024 8:45 AM EDT [facility] Start: 02-03-2024 Subsequent hospital visit by physician 02/03/2024 8:45 AM EDT Hospital Encounter [facility] [address] [place] [address] Nancy Ludwig MD [address] [place] [address] [facility] Start: 07-05-2023 Annual Wellness Visit (Medicare Advantage) Annual Wellness Visit (Medicare Advantage) [facility] Start: 07-01-2023 Screening for malignant neoplasm of breast Mammogram [facility] Start: 06-09-2023 Lipid 1996 panel - Serum or Plasma Lipid Screening [facility] Start: 06-09-2023 LIPID SCREEN LIPID SCREEN [facility] Start: 03-05-2023 COVID-19 Vaccine (2022- season) COVID-19 Vaccine ( season) [facility] Start: 03-05-2023 Influenza vaccination [facility] Start: 02-02-2023 Influenza vaccination Flu vaccine (#1) [facility] Start: 07-05-2022 DEPRESSION ASSESSMENT DEPRESSION ASSESSMENT [facility] Start: 03-19-2022 End: 12-17-2022 25-hydroxyvitamin D3 [Mass/volume] in Serum or Plasma VITAMIN D 25 HYDROXY Lab Routine Vitamin D deficiency Expected: 03/19/2022 (Approximate), Expires: 12/17/2022 [facility] Work Phone: Comment on above: Expected: [...] of 2) Shingles vaccine (1 of 2) [facility] Start: 2018 SHINGRIX VACCINE (1 of 2) SHINGRIX VACCINE (1 of 2) [facility] Start: 2013 COLOGUARD (FIT-DNA) COLOGUARD (FIT-DNA) [facility] Start: 2013 Colonoscopy COLONOSCOPY [facility] Start: 2013 COLORECTAL CANCER SCREENING COLORECTAL CANCER SCREENING [facility] Start: [address] COLONOGRAPHY [facility] Start: 2013 FECAL OCCULT BLOOD FECAL OCCULT BLOOD [facility] Start: 2013 Screening for malignant neoplasm of colon [facility] Start: 2013 SIGMOIDOSCOPY SIGMOIDOSCOPY [facility] Start: 2003 Diabetes screen Diabetes screen [facility] Start: 1998 HPV TESTING HPV TESTING [facility] Start: 1989 PAP TESTING PAP TESTING [facility] Start: 1987 DTaP/Tdap/Td vaccine (1 - Tdap) DTaP/Tdap/Td vaccine (1 - Tdap) [facility] Start: 1987 Hepatitis B vaccine (1 of 3 - 19+ 3-dose series) Hepatitis B vaccine (1 of 3 - 19+ 3-dose series) [facility] Start: 1987 Urine microalbumin profile [facility] Start: 1987 Urine screening for protein Diabetes: Urine Protein Screening [facility] Start: 1986 Hepatitis C screening Hepatitis C screen [facility] Start: 1986 HIV SCREENING HIV SCREENING [facility] Start: 1983 HIV screening HIV screen [facility] Start: 1980 Adult depression screening assessment DEPRESSION SCREENING [facility] Start: 1980 Depression Screen Depression Screen [facility] Start: 1978 Glaucoma screening Diabetes: Retinopathy Screening [facility] Start: 1978 Lipid panel Lipids [facility] Start: 1974 PNEUMOCOCCAL (1 - PCV) PNEUMOCOCCAL (1 - PCV) [facility] Start: 1974 Pneumococcal 0-64 years Vaccine (1 - PCV) Pneumococcal 0-64 years Vaccine (1 - PCV) [facility] Start: 1974 Pneumococcal 0-64 years Vaccine (1 of 2 - PCV) Pneumococcal 0-64 years Vaccine (1 of 2 - PCV) [facility] [employer] Start: 1974 Pneumococcal vaccination Pneumococcal Vaccine (1 - PCV) [facility] Start: 1968 HEPATITIS B (1 of 3 - 3-dose series) HEPATITIS B (1 of 3 - 3-dose series) [facility] Start: 1968 Hepatitis B Vaccine (1 of 3 - 3-dose series) Hepatitis B Vaccine (1 of 3 - 3-dose series) [facility] Start: 1968 Screening for malignant neoplasm of colon [facility] Celiac Disease Panel Celiac Dise ase Panel Lab Routine Flatulence, eructation and gas pain 09/13/2023 4:20 PM EDT [facility] End: 09-13-2023 H. pylori antigen [facility] Comment on above: Once for 1 Occurrences starting 09/13/19 24 until 09/13/2023 End: 09-13-2023 H. Pylori Antigen, Stool H. Pylori Antigen, Stool Lab Routine Flatulence, eructation and gas pain 1 Occurrences starting 09/13/2023 until 09/13/2023 [facility] Work Phone: Comment on above: 1 Occurrences starting 09/13/2023 until 09/13/2023 End: 06-09-2024 INITIATE PACU OXYGEN THERAPY PROTOCOL Initiate PACU Oxygen Therapy Protocol Respiratory Care Routine Continuous until discontinued starting 06/09/2024 [facility] Comment on above: Continuous until discontinued starting 1 08/10/2023 Pathology study Surgical Patholo gy Lab Routine GERD (gastroesophageal reflux disease) Release Upon Ordering for 1 Occurrences starting 06/09/2024 [facility] Comment on above: Release Upon Ordering for 1 Occurrences starting 06/09/2024 Immunizations Immunization Date Immunization Notes Care Provider [facility] 04-06-2019 influenza, injectabl e, quadrivalent, preservative free Cristobal Tomas Work Phone: [id number] [id number] Work Phone: 04-06-2019 influenza virus vaccine, unspecified formulation Gayle Washington MD Work Phone: [facility] 05-15-2016 seasonal influenza, intradermal, preservative free Cristobal Tomas Work Phone: [facility] Payers Date Payer Category Payer Medicare [id number] 2024 Medicare (Managed Care) MEDICAL BOSS MEDICARE [id number] 2024 Unknown [id number] 2024 Medicare [id number] .[id number] 2021 Unknown 2021 Unknown CLAYTON ARNOLD HI X [id number] 2021-Present [phone] [address] [address] [place] [address] O [id number] .[id number] 2020 Private Health Insurance [id number]. 3 .[id number] 2018 Unknown [id number] 2.16.840.1.711790.19 2017 Unknown [id number] 1968 Unknown [id number] 2.16.840.1.824527.3.579.2.182 1968 Unknown [id number] 2.16.840.1.817858.3.579.2.182 1968 Unknown [id number] 2.16.840.1.519922.3.579.2.182 1968 Unknown [id number] 2.16.840.1.904957.3.579.2.182 1968 Unknown [id number] 2.16.840.1.962715.3.579.2.182 1968 Unknown [id number] 2.16.840.1.272368.3.579.2.593 1968 Unknown [id number] 2.16.840.1.675977.3.579.2.593 1968 Unknown [id number] 2.16.840.1.766722.3.579.2.593 1968 Unknown [id number] 2.16.840.1.116493.3.579.2.593 1968 Unknown [id number] 2.16.840.1.173518.3.579.2.593 1968 Unknown [id number] 2.16.840.1.024374.3.579.2.593 1968 Unknown [id number] 2.16.840.1.391572.3.579.2.593 1968 Unknown [id number] 2.16.840.1.208865.3.579.2.593 1968 Unknown [id number] 2.16.840.1.216548.3.579.2.593 1968 Unknown [id number] 2.16.840.1.494335.3.579.2.593 1968 Unknown [id number] 2.16.840.1.892482.3.579.2.593 1968 Unknown [id number] 2.16.840.1.095862.3.579.2.173 1968 Unknown [id number] 2.16.840.1.342287.3.579.2.173 1968 Unknown [id number] 2.16.840.1.699523.3.579.2.173 1968 Unknown [id number] 2.16.840.1.480549.3.579.2.173 1968 Unknown [id number] 2.16.840.1.513696.3.579.2.173 1968 Unknown [id number] 2.16.840.1.477609.3.579.2.125 9 1968 Unknown [id number] 2.16.840.1.277194.3.579.2.125 9 1968 Unknown [id number] 2.16.840.1.956014.3.579.2.125 9 1968 Unknown [id number] 2.16.840.1.457941.3.579.2.125 9 1968 Unknown [id number] 2.16.840.1.328963.3.579.2.125 9 1968 Unknown [id number] 2.16.840.1.140708.3.579.2.125 9 1968 Unknown [id number] 2.16.840.1.067728.3.579.2.125 9 1968 Unknown [id number] 2.16.840.1.534822.3.579.2.125 9 1968 Unknown [id number] 2.16.840.1.722299.3.579.2.125 9 1968 Unknown [id number] 2.16.840.1.611301.3.579.2.125 9 1968 Unknown [id number] 2.16.840.1.421741.3.579.2.125 9 1968 Unknown [id number] 2.16.840.1.295819.3.579.2.125 9 1968 Unknown [id number] 2.16.840.1.786231.3.579.2.125 9 1968 Unknown [id number] 2.16.840.1.224840.3.579.2.196 1968 Unknown [id number] 2.16.840.1.797255.3.579.2.196 1968 Unknown [id number] 2.16.840.1.708129.3.579.2.196 1968 Unknown [id number] 2.16.840.1.665633.3.579.2.196 1968 Unknown [id number] 2.16.840.1.580946.3.579.2.196 Unknown Regular Auto/Medical [id number] Regular Auto/Liability RM294 5 [id number] Social History Date Type Detail Facility Start: 07-05-1984 End: 07-06-2024 Tobacco smoking status NDIS Smokes tobacco daily [facility] Start: 07-05-1984 History of tobacco use Cigarette Smoker [facility] Start: 06-04-2021 End: 11-07-2024 Cigarettes smoked current (pack per day) - Reported 1 [facility] Start: 06-04-2021 End: 09-08-2023 Tobacco use and exposure Smokeless tobacco non-user [facility] Start: 12-12-2021 End: 06-09-2024 Alcohol intake Current drinker of alcohol (finding) [facility] Start: 06-04-2021 History SDOH Alcohol Comment rarely. [facility] Start: 1970 Sex Assigned At Not on file [facility] Start: 11-29-2021 End: 12-09-2021 Exposure to SARS-CoV-2 (event) Unable to assess [facility] Start: 06-05-2021 End: 11-07-2024 Sex Assigned At [email or web address] Other Start: 05-05-2021 End: 06-04-2021 Exposure to SARS-CoV-2 (event) Not sure [facility] National Score (1-100), lower number is lower risk 95 [facility] (I/We) worried whether (my/our) food would run out before (I/we) got money to buy more. Never true [employer] Start: 09-08-2023 Tobacco Comment intermittently since 15 [employer] Start: 05-03-2020 Alcohol Comment hardly ever [employer] Start: 10-29-2023 End: 02-13-2025 Alcoholic beverage intake [...] 10-28-2023 Alcohol Comment Caffine: 2 cups daily [facility] Start: 1970 Sex assigned at Female [facility] Start: 09-16-2022 Gender identity Identifies as female gender (finding) [facility] Start: 09-04-2024 End: 11-07-2024 Tobacco smoking status NHIS Ex-smoker (finding) [facility] Start: 09-04-2024 End: 11-23-2024 Sex Female (finding) [facility] Start: 07-05-1984 History of tobacco use Current smoker [facility] Medical Equipment Procedure Code Equipment Code Equipment Original Text Equipment Identifier Dates Impl Alena Spine R michael Ti35 Mm 55 Mm [id number] Start: 06-25-2020 Graft Spnl W11xh 3ym71tc Corticocancellous Lord Triad - [id number] Start: 05-09-2020 Plate Spnl L28mm Antr Cerv 1 Lev Translational [place] Acp [id number] Start: 05-09-2020 Screw Spnl L13mm Dia4mm Ant Cerv [facility]io Ang Compr [place] Acp [id number] Start: 05-09-2020 Connector Spnl C rss Lo Prof Adj Reline-O 5.5 X 45-65 Mm [id number] Start: 06-25-2020 Screw Spnl Dia5. 5mm Opn Tulip Roselyn Reline [id number] Start: 06-25-2020 Graft Bne Sub 30 cc 1.7-10mm Canc Chip Morselized Frz Dry - [id number] Start: 06-25-2020 Graft Bne Sub 5m l Mtrx Cellular Osteocel + - [id number] Start: 06-25-2020 Spacer Spnl L W1 [id number] 4deg Post Lum Intbdy Fus Lord [id number] Start: 06-25-2020 Screw Spnl L50mm Dia7.5mm Post Thoracolumbosacral Polyax 2s [id number] Start: 06-25-2020 Screw Spnl L55mm Od6mm 2s Polyax Reline O [id number] Start: 06-25-2020 Alena Spnl Lordtc 5.5x40 Mm Ti Reline-O [id number] Start: 06-25-2020 Clip Endoscp 235 cm Resol 360 Order Uom Is Each - [id number] [facility] Start: 02-03-2024 Functional Status Date Assessment Result Facility 11-07-2024 Patient Health Quest ionnaire 2 item (PHQ-2) [Reported] [facility] 11-07-2024 How difficult have t hese problems made it for you to do your work, take care of things at home, or get along with other people? Not difficult at all 11/07/2024 10:00 AM EDT Lesley Telles MA Not difficult at all [facility] Clinical Notes 04-02-2021 to 02-13-2025 Hazel Velásquez [...] complication, without long-term current use of insulin ([facility]) Orders: POCT Glycated hemoglobin, total Nicotine abuse [...] for memory issues. documented in this encounter [facility] 01-03-2025 History of Present illness Narrative [...] Timmis OVARIAN CYST REMOVAL 1987 -Dr. [place]awla [place] FASCIOTOMY FOOT&/TOE 1998 plantar [place] KNEE SCOPE,DIAGNOSTIC Right 12/03/[address] [place] LAP,CHOLECYSTECTOMY 2000 ROTATOR CUFF REPAIR 06/05/2019 resection [...] utilizing a nail nipper and electric bur track grinder without incident. A sterile #15 blade was [...] John Gauthier DPM documented in this encounter [facility] 11-08-2024 Note Patient here for res [...] heartbeat. Neurological: Positive for dizziness and light-headedness. [facility] 11-08-2024 Note Cardiovascular Medic ine [facility] SUBJECTIVE Chief Complaint Patient presents with [...] ago she started exercise program at the [facility]. This has helped her sx's some. [...] Unstable angina (CMS/HCC) Coronary artery disease involving [place] coronary artery of [place] heart without angina pectoris Degenerative joint disease [...] Vitamin D defi (more content not included)... [facility] 11-07-2024 History of Present illness Narrative Images from the original note were not included. Leix Garcia is a 54 y.o. female presents with chief complaint of mwv patient has been struggling with her STM the past couple of years. Family eye care in [place]. HPI: Over the past 2 weeks, how [...] Yes Vision Screening: Yes, patient sees regular loan approver/student support advisor Hearing Screening: Not done Cognitive Screening Self Assessment: No overt cognitive deficiency is apparent by direct observation Three Word Registration: Percy Aguilera, Jhonny Clock Drawing: Normal Clock - 2 Three [...] has had a recent eye examination at [facility], where she was informed that her eyes [...] also encouraged to schedule another visit with Luaks for further support. 2. Sinusitis. - She [...] screening low dose documented in this encounter [facility] 10-17-2024 Note Cardiovascular Medic [facility] SUBJECTIVE Chief Complaint Patient presents [...] feeling. Sometimes a skipped beat. She has [place]FF[place]. This has been ongoing. 6 weeks ago she started exercise program at the [facility]. This has helped her sx's some. [...] Unstable angina (CMS/HCC) Coronary artery disease involving [place] coronary artery of [place] heart without angina pectoris Degenerative joint disease [...] 01/03/1994 Quit da (more content not included)... [facility] 10-17-2024 Note Patient is here for [...] breath. Neurological: Positive for dizziness and light-headedness. [facility] 09-11-2024 Telephone encounter Note Pt called-she states she was supposed to let us know how the Ozempic went, she states it went well. She also scheduled an appt with Lukas. [facility] 09-11-2024 Miscellaneous Notes Pt called-she states she was supposed to let us know how the Ozempic went, she states it went well. She also scheduled an appt with Lukas. documented in this encounter [facility] 09-04-2024 Evaluation note Diagnosis Onset Date Resolution Dyspepsia acute September 04 1:55pm GERD (gastroesophageal reflux disease) acute September 04, 2024 1:55pm GERD (gastroesophageal reflux disease) acute November 23, 2024 1 0:43am [facility] Work Phone: 1(183) 354-727902-17-2025 History of Present illness Narrative* John Gauthier, [...] Timmis OVARIAN CYST REMOVAL 1987 -Dr. [place] FASCIOTOMY FOOT&/TOE 1997 [place] KNEE SCOPE,DIAGNOSTIC Right 12/03/[address] [place] LAP,CHOLECYSTECTOMY 1999 ROTATOR CUFF REPAIR 06/05/2019 resection [...] understanding. John Gauthier DPM documented [id number] History of Present illness Narrative* Hazel Velásquez MD - 08/08/2024 9:30 AM EST Images from the original note were not included. Lexi Garcia is a 54 y.o. female presents with chief complaint of Diabetes (GI isabel lorenzo is no longer practicing and patient needs new GI referral, pt wondering if pristu and sulciciafte could be renewed by you in the [...] planning to schedule an appointment with her loan approver due to changes in her vision. She [...] She is under the care of a inspector quality assurance at [facility]. She has been compliant with her cholesterol [...] GERD symptoms. She is seeking a new hat model. She had a herpes outbreak on her [...] She is currently underthe care of a inspector quality assurance at [facility]. 4. Cholesterol Management. Her LDL cholesterol is [...] Mixed hyperlipidemia (CMS/HCC) Coronary artery disease involving b[place] coronary artery of [place] heart with angina pectoris ([facility]/HCC) Herpes infection Other Visit Diagnoses Poorly controlled type 2 diabetes mellitus with neuropathy ([facility]) - Primary Relevant Orders Microalbumin / creatinine, urine ratio Morbid (severe) obesity due to excess calories ([facility]) Body mass index (BMI) 38.0-38.9, adult Acute non-recurrent frontal sinusitis documented in [facility] encounter[facility] [id number] History of Present illness Narrative* John Gauthier, [facility] - 07/25/2024 10:00 AM EST Images from [...] Timmis OVARIAN CYST REMOVAL 1987 -Dr. [place]awla [place] FASCIOTOMY FOOT&/TOE 1997 [place] KNEE SCOPE,DIAGNOSTIC Right 12/03/[address] [place] LAP,CHOLECYSTECTOMY 1999 ROTATOR CUFF REPAIR 06/05/2019 resection [...] utilizing a nail nipper and electric bur track grinder without incident. We discussed phenol matricectomy [...] understanding. John Gauthier DPM documented in this [facility]01-17-2025 Telephone encounter Note* Telephone Encounter - Sherlytrever Ansari - 07/21/2024 11:49 AM EST 20% CO PAY WITH TEN 1 HR VISITS FIRST YEAR AND TWO 1 HR VISITS SUBSEQUENT YEARS [facility] [id number] Miscellaneous Notes* Telephone Encounter - Sherly Ansari - 07/21/2024 11:49 AM EST 20% CO PAY WITH TEN 1 HR VISITS FIRST YEAR AND TWO 1 HR VISITS SUBSEQUENT YEARS documented in this [facility]01-02-2025 History of Present illness Narrative* Hazel Velásquez [...] She had an A1c done at her inspector quality assurance and number was 9.3. She has hypertension. She is on amlodipine. She has coronary artery disease. She has not had any stents or heart attacks. She had a heart catheterization, which came back with coronary artery disease. She has high cholesterol. She is on Zetia and Lipitor. She is on Eliquis, a blood thinner. She started going to a svp chief marketing officer in [facility] because she has factor V Leiden. The svp chief marketing officer thought since she was getting older that [...] to twice daily. A referral to a parent educator will be made for further education [...] Mixed hyperlipidemia (CMS/HCC) 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) Other Visit Diagnoses Type 2 diabetes mellitus without complication, without long-term current use of insulin (CMS/HCC) Relevant Medications metFORMIN (Glucophage) 500 MG tablet Encounter for screening mammogram for malignant neoplasm of breast Relevant Orders Bilateral screening mammogram with tomosynthesis documented in this encounterNOMS [id number] History of Present illness Narrative* Erika Oconnor [...] Patient has stopped her eliquis per her inspector quality assurance, Dr Nikko mitchell, who also provided cardiac [...] PAT phone call. [facility] Discharge instructions* Discharge Instructions* Maximiliano You [...] one drug, even if it is an iahe-qiy-qitjhnp medication, herb, or dietary supplement, be sure [...] call 911 immediately. documented in this [facility]Bon [facility] Note Cardiovascular Medicine [facility] SUBJECTIVE Lexi Garcia is a 54 [...] disturbances Abnormal nuclear stress test Unstable angina ([facility]/HCC) Coronary artery disease involving b[place] coronary artery of [place] heart without angina pectoris Degenerative joint disease involving multiple joints Osteopenia NSAID long-term use Adjustment disorder with mixed disturbance of emotions and conduct Bilateral hand pain Bipolar 1 disorder ([facility]) Carpal tunnel syndrome Cellulitis of face Cellulitis of right lower limb Cervical disc disorder Chronic hip pain, bilateral Chronic pain of both knees Cigarette smoker Current use of estrogen therapy Elevated C-reactive protein (CRP) Factor 5 Leiden mutation, heterozygous ([facility]) Full thickness rotator cuff tear Herpes [...] in 2019 Chronic pain disorder Clotting disorder ([facility]/HCC) Depression Factor V Leiden ([facility]/HCC) Fibromyalgia, primary GERD (gastroesophageal reflux disease) Hyperlipidemia [...] needed in the morni (more content not included)...[facility] 04-07-2023 Miscellaneous Notes* Telephone Encounter - Gayle Washington [...] faxed with confirmation. [facility]2023 NoteOPERATIVE NOTE OPERATION DATE: 10/13/2022 [...] left cheek was prepped with Betadine. A Tripp tip Bovie was then used to make [...] the recovery room in good condition. [id number] NoteEXAM: XR CHEST 2 V HISTORY: Pre-surgery evaluation COMPARISON: None. TECHNIQUE: PA and lateral views of the chest. FINDINGS: The cardiomediastinal silhouette is normal. No focal consolidation is identified. There is no pneumothorax. No pleural effusion is noted. The osseous structures are intact. IMPRESSION: No acute cardiopulmonary process. Electronically authenticated by: JOSIAH WILKS Date: 2022-10-07 11:27The [facility] [id number] NoteCONSULTATION CONSULTATION DATE: 07/23/2022 HISTORY OF PRESENT [...] injections. Patient does agree with this plan.[facility] 06-11-2022 NoteCONSULTATION CONSULTATION DATE: 06/11/2022 HISTORY OF [...] q.h.s. 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 Prescription(s) as above. Please process accordingly. Gayle Wahsington MD * Telephone Encounter - Marlee Joshi MA - 05/18/2022 12:37 PM EST [employer]nex[employer] message sent to patient reminding her to [...] Lab Orders Expected Expires Ordered HLA-B27 PCR [[id number]] 06/19/21 06/18/22 06/18/21 Auth. provider: Gayle Washington MD Assoc. diagnoses: Elevated sedimentation rate VITAMIN D 25 HYDROXY [SQVITD] 03/19/22 12/17/22 12/17/21 Auth. provider: Gayle Washington MD Assoc. diagnoses: Vitamin D deficiency documented in this encounterOhio[facility]10-13-2022 NoteCONSULTATION PROCEDURE DATE: 04/16/2022 The [...] at the clinic in three months' time.The [facility] [id number] NoteCONSULTATION CONSULTATION DATE: 04/09/2022 HISTORY OF PRESENT [...] return to the clinic for her injection.The [facility] [id number] NoteCONSULTATION CONSULTATION DATE: 01/01/2022 This is a pleasant 51-year-old female returning to the clinic status post #2 bilateral MBB on C3, C4 and C5 that afforded her 80% relief for 5 days. She was recently at her car body designer's and was diagnosed with fibromyalgia and she [...] and Approved by: BEN MONROE . 01/08/2022 10:22:00[facility]06-15-2022 Miscellaneous Notes* Telephone Encounter - Kamryn Luna MA - 12/17/2021 4:04 PM EDT Pt aware. Kamryn Luna MA * Telephone Encounter - Gayle Washington MD - 12/17/2021 4:01 PM EDT Notify patient request granted Thank you. * Telephone Encounter - Kmaryn Luna MA - 12/17/2021 3:12 PM EDT [...] to My Chart if tests completed at [facility]: Mildly low vitamin D- increase [...] superior labral tear; documented in this encounterOhio[facility]06-10-2022 NoteHNO ID: [id number] Author: Gayle Washington MD Service: ? Author [...] flat ground knees give out. COVID vaccine [email or web address] 06/26/21. Feels safe at home. 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, prn acetaminophen, start prn heat/ice/otc [...] yes Dactylitis: no H/o precedent/frequent infection(s): no Enthesopathy/[place]'s/heel/plantar tenderness: as above Skin thickening, psoriasis, photosensitivity, purpura: no Nail changes: ridges/ripples Alpecia, patchy: no Eye inflammation: glasses, R retinal hole SICCA: dry eyes Oral/nasal/genital ulcers: no GI problems-diarrhea/bleeding/IBD/Gluten intolerence/Dysphagia: gerd Raynaud's phenomenon/digital ulcers: no Organ inv-Serositis: no Lung disease/ILD: no Myopathy/proximal muscle weakness: no Abnormal Urine or urethritis: no Renal/liver disease: no SCHOOL COORDINATOR/PNS/sz/cva/cancer disease: no HEME-Cytopenias/LAD/Clots: no Fevers: no Fatigue: [...] PAST MEDICAL HISTORY: PMH (more content not included)...[facility]06[facility] History of Present illness Narrative* [...] flat ground knees give out. COVID vaccine [email or web address] 06/26/21. Feels safe at home. 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, prn acetaminophen, start prn heat/ice/otc [...] yes Dactylitis: no H/o precedent/frequent infection(s): no Enthesopathy/Kelley's/heel/plantar tenderness: as above Skin thickening, psoriasis, photosensitivity, purpura: no Nail changes: ridges/ripples Alpecia, patchy: no Eye inflammation: glasses, R retinal hole SICCA: dry eyes Oral/nasal/genital ulcers: no GI problems-diarrhea/bleeding/IBD/Gluten intolerence/Dysphagia: gerd Raynaud's phenomenon/digital ulcers: no Organ inv-Serositis: no Lung disease/ILD: no Myopathy/proximal muscle weakness: no Abnormal Urine or urethritis: no Renal/liver disease: no SCHOOL COORDINATOR/PNS/sz/cva/cancer disease: no HEME-Cytopenias/LAD/Clots: no Fevers: no Fatigue: [...] rest of cb, cmp, uric acid 3.1, [id number];negative rf<10, ccp<15, flakita ifa, hla b27, hepatitis [...] flat ground knees give out. COVID vaccine [email or web address] 06/26/21. Feels safe at home. Has enough food, supplies and medications. Overall uncomfortable but happy with rheum care. 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 [facility] Miscellaneous Notes* Telephone Encounter - [...] Dr Washington no schedule pulling for Beata only Hilda. Patient requesting call at [phone] Washington is still at [place]. Please advise. documented in [facility] NotePAIN MANAGEMENT CONSULTATION CONSULTATION DATE: 11/18/2021 CHIEF COMPLAINT: Cervical pain. HISTORY OF PRESENT ILLNESS: This is a 51-year-old female who had, in the past, been seen by Dr. Brunner, Pain Management in [place], [place]. The patient had changed her insurances to [employer] and, as such, Dr. Brunner does not [...] like to proceed. CC: Kimberley Morgan D.O. [facility] Signed and Approved by: DR RACHEL STOCK . 11/25/2021 12:22:00[facility]04-12-2022 Evaluation note* Encounter Date Diagnosis Assessment [...] nerve block in the future if needed. [email or web address] Other 12-28-2021 Evaluation note* Encounter Date Diagnosis [...] right hip to further evaluate her pain. [email or web address] Other 12-15-2021 Evaluation note* Encounter Date Diagnosis [...] (ICD-10 - G89.29) Continue medications as prescribed [email or web address] Other 11-11-2021 Evaluation note* Encounter Date Diagnosis [...] (ICD-10 - G89.29) Continue medications as prescribed [email or web address] Other 09-29-2021 Evaluation note* Encounter Date Diagnosis [...] injection under ultrasound guidance in the future. [email or web address] Other Evaluation note* Diagnosis Secondary osteoarthritis of [...] Chronic pain syndrome [facility] noteNo InformationNort [employer] Other Evaluation note* Diagnosis Secondary osteoarthritis of multiple sites- Primary Osteoarthrosis involving, or with mention of more than one site, but not specified as generalized, multiple sites Vitamin D deficiency Unspecified vitamin D deficiency Fibromyalgia Mylagia and myositis, unspecified documented in this encounter [facility] note* Diagnosis Secondary osteoarthritis of multiple sites Osteoarthrosis involving, or with mention of more than one site, but not specified as generalized, multiple sites documented in this encounter [facility] note* Diagnosis Chronic hip pain, bilateral Chronic left shoulder pain Pain in joint, shoulder region Chronic pain of both knees Bilateral hand pain Pain in limb documented in this encounter [facility] note* Diagnosis Secondary osteoarthritis of multiple sites Osteoarthrosis involving, or with mention of more than one site, but not specified as generalized, multiple sites Cervicalgia Chronic bilateral low back pain with bilateral sciatica documented in this encounter [facility] note* Diagnosis Flatulence, eructation and gas pain Flatulence, eructation, and gas pain Chronic GERD documented in this encounter [facility]* Diagnosis GERD (gastroesophageal reflux disease)- Primary Esophageal reflux History of gastric ulcer Personal history of other diseases of digestive system History of Sloan's esophagus documented in this encounter [facility] note* Diagnosis Benign essential HTN ([facility])- Primary Coronary artery disease involving [place] coronary artery of [place] heart with angina pectoris ([facility]) Factor 5 Leiden mutation, heterozygous ([facility]) Bipolar 1 disorder ([facility]) Cigarette smoker Tobacco use disorder Mixed hyperlipidemia ([facility]) Mixed hyperlipidemia Type 2 diabetes mellitus without complication, without long-term current use of insulin ([facility]) Encounter for screening mammogram for malignant neoplasm of breast [facility] Diagnosis Diabetic polyneuropathy associated with type 2 diabetes mellitus ([facility])- Primary Onychomycosis Dermatophytosis of nail Onychodystrophy Other specified disease of nail Pain in both feet [facility] Diagnosis Poorly controlled type 2 diabetes mellitus with neuropathy ([facility])- Primary Morbid (severe) obesity due to excess calories ([facility]) Body mass index (BMI) 38.0-38.9, adult Acute non-recurrent frontal sinusitis Herpes infection Herpes simplex without mention of complication Benign essential HTN (CMS/HCC) 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) Gastroesophageal reflux disease without esophagitis Esophageal reflux Cigarette smoker Tobacco use disorder Mixed hyperlipidemia (CMS/HCC) Mixed hyperlipidemia documented [facility] this encounter [facility]* Diagnosis Corns and callosities- Primary Diabetic polyneuropathy associated with type 2 diabetes mellitus (CMS/HCC) Left foot pain Pain in soft tissues of limb documented in this encounter [facility]* Diagnosis Onset Date Resolution Status Admit Date Dyspepsia acute September 04 1:55pm [facility] Work Phone: Evaluation note* Diagnosis Annual wellness visit- Primary Nicotine abuse Cyst, dermoid, arm, right Type 2 diabetes mellitus without complication, without long-term current use of insulin Nicotine dependence, cigarettes, in remission Seasonal allergic rhinitis due to pollen Benign essential HTN (CMS/HCC) Factor 5 Leiden mutation, heterozygous (CMS/HCC) Mixed hyperlipidemia (CMS/HCC) Mixed hyperlipidemia documented in this encounter [facility]* Diagnosis Type 2 diabetes mellitus without complication, without long-term current use of insulin documented in this encounter [facility]* Diagnosis Onychomycosis- Primary Dermatophytosis of nail Onychodystrophy Other specified disease of nail Corns and callosities Diabetic polyneuropathy associated with type 2 diabetes mellitus (HCC) Ingrown toenail Ingrowing nail Pain in both feet documented in this encounter [facility]* Diagnosis Nicotine abuse- Primary Type 2 diabetes mellitus without complication, without long-term current use of insulin (HCC) Nausea and vomiting, unspecified vomiting type Memory loss Marijuana smoker documented in this encounter [facility] HealthcareHistory general Narrative - Reported* Type Description Date Medical History allergies Medical History factor 5 blood disorder Medical History anxiety Medical History depression Medical History bipolar Medical History lumbar DDD Surgical History back surgery 06/2021 Surgical History neck surgery 05/2021 Hospitalization History see above [email or web address] Other History general Narrative - Reported* Type Description Date Medical History allergies Medical History factor 5 blood disorder Medical History anxiety Medical History depression Medical History bipolar Medical History lumbar DDD Medical History osteoarthritis of multiple joint s Surgical History back surgery 06/2021 Surgical History neck surgery 05/2021 Hospitalization History see above [email or web address] Other History of Present illness NarrativePatient has continued intermittent pain symptoms in her right shoulder she is remotely status post rotator cuff repair she had a follow-up MRI scan recently she would like to review with me today. She had a subacromial injection but it did not resolve all of her symptoms.[id number] Work Phone: Reason for referral (narrative)* Diagnostic Procedure Only (Routine) - Closed Specialty Diagnoses / Procedures Referred By Margarita vanegas Referred To Contact XR IMAGING Diagnoses Bilateral hand pain Procedures XR HAND GENERAL 3V PA/LAT/OBL BILATERAL X-RAY HAND MINIMUM 3 VIEWS Gayle Washington MD [address] [place] [address] Xr Imaging Referral ID Status Reason Start Date Expiration Date V isits Requested Visits Authorized [id number] Closed Auto-Generate d Referral 06/04/2021 07/04/2022 1 1 * Diagnostic Procedure Only (Routine) - Closed Specialty Diagnoses / Procedures Referred By Margarita vanegas Referred To Contact XR IMAGING Diagnoses Chronic pain of both knees Procedures XR KNEE GENERAL 4V AP BOTH/PA BOTH/LAT/MERC BILATERAL KNEE AP-WGT/LAT/MERCHANT Gayle Washington MD [address] [place] [address] Xr Imaging Referral ID Status Reason Start Date Expiration Date V isits Requested Visits Authorized [id number] Closed Auto-Generate d Referral 06/04/2021 07/04/2022 1 1 * Diagnostic Procedure Only (Routine) - Closed Specialty Diagnoses / Procedures Referred By Margarita vanegas Referred To Contact XR IMAGING Diagnoses Chronic left shoulder pain Procedures XR SHOULDER GENERAL 3V OR MORE AP/TRUE AP/OTHER LEFT X-RAY SHOULDER COMPLET MIN 2 VIEWS Gayle Washington MD [address] [place] [address] Xr Imaging Referral ID Status Reason Start Date Expiration Date V isits Requested Visits Authorized [id number] Closed Auto-Generate d Referral 06/04/2021 07/04/2022 1 1 * Diagnostic Procedure Only (Routine) - Closed Specialty Diagnoses / Procedures Referred By Contac t Referred To Contact XR IMAGING Diagnoses Chronic hip pain, bilateral Procedures XR HIP BILATERAL 5V PEL/AP/LAT EACH HIP RADEX HIPS BILATERAL WITH PELVIS MINIMUM 5 VIEWS Gayle Washington MD [address] [place] [address] Xr Imaging Referral ID Status Reason Start Date Expiration Date V isits Requested Visits Authorized [id number] Closed Auto-Generate d Referral 06/04/2021 07/04/2022 1 1 [facility] N[facility]ative* Diagnostic Procedure Only (Routine) - Closed Specialty Diagnoses / Procedures Referred By Contac t Referred To Contact XR IMAGING Diagnoses Bilateral hand pain Procedures XR HAND GENERAL 3V PA/LAT/OBL BILATERAL X-RAY HAND MINIMUM 3 VIEWS Gayle Washington MD [address] [place] [address] Xr Imaging Referral ID Status Reason Start Date Expiration Date V isits Requested Visits Authorized [id number] Closed Auto-Generate d Referral 06/04/2021 07/04/2022 1 [...] left Procedures CONSULT TO ORTHOPAEDICS OFFICE/OUTPATIENT [facility] 60-74 MINUTES Gayle Washington MD [address] [place] [address] Referral ID Status Reason Start Date Expiration Date Visits Requested Visits Authorized [id number] Pending Review PCP Requested Referral 12/12/2021 12/12/2022 [...] section and content) DATE CREATED AUTHOR 06/20/2020 [facility] DATE CREATED AUTHOR AUTHOR'S ORGANIZ ATION 06/27/2020 [facility] DATE CREATED AUTHOR AUTHOR'S ORGANIZ ATION 12/01/2020 [facility] DATE CREATED AUTHOR AUTHOR'S ORGANIZ ATION 02/23/2021 [facility] DATE CREATED AUTHOR AUTHOR'S ORGANIZ ATION 02/23/2021 [employer] DATE CREATED AUTHOR AUTHOR'S ORGANIZ ATION 12/26/2021 [facility] DATE CREATED AUTHOR AUTHOR'S ORGANIZ ATION 07/02/2022 [facility] DATE CREATED AUTHOR AUTHOR'S ORGANIZ ATION 10/08/2022 [facility] DATE CREATED AUTHOR AUTHOR'S ORGANIZ ATION 10/20/2022 [facility] DATE CREATED AUTHOR AUTHOR'S ORGANIZ ATION 06/16/20[facility] DATE CREATED AUTHOR AUTHOR'S ORGANIZ ATION 02/15/2025 [facility] DATE CREATED AUTHOR AUTHOR'S ORGANIZ ATION 02/25/2025 [facility] DATE CREATED AUTHOR AUTHOR'S ORGANIZ ATION 03/18/2025 [facility] Source Comments (unrecognize d section and [...] Up Gayle Washington MD [address] [place] [address] [facility] [place] [address] [place] [address] Referral ID Status Reason Start Date Expiration Date Visits Requested Visits Authorized [id number] Waiting for Response OON/Self Pay Override Patient cleared - OON Required Payment Collected 12/08/2021 03/08/2022 1 1 Reason Comments Appointment Reason Comments Results Specialty Diagnoses / Procedures Referred By Margarita vanegas Referred To Contact Diagnoses GERD (gastroesophageal reflux disease) GERD (gastroesophageal reflux disease) [K21.9] Procedures WI ESOPHAGOGASTRODUODENOSCOPY TRANSORAL DIAGNOSTIC WI EGD TRANSORAL BIOPSY SINGLE/MULTIPLE WI EGD BALLOON DILATION ESOPHAGUS <30 MM DIAM ESOPHAGOGASTRODUODENOSCOPY Maximiliano You MD [address] [place] [address] [facility] [address] [place] [address] Referral ID Status Reason Start Date Expiration Date Visits Re quested Visits Authorized [id number] 1 1 Reason Onset Date Comments dsme [...] Care Teams (unrecognized sec tion and content) 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 Specialty Start Date End Date Kimberley Morgan, DO [address] [place] [address] PCP - General Family Practice 06/04/21 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 Specialty Start Date End Date Kimberley Morgan, DO [address] [place] [address] PCP - General Family Practice 06/04/21 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 Specialty Start Date End Date Kimberley Morgan, DO [address] [place] [address] PCP - General Family Medicine 06/04/21 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 Specialty Start Date End Date Kimberley Morgan, DO [address] [place] [address] PCP - General Family Medicine 06/04/21 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 Specialty Start Date End Date Kimberley Morgan DO [address] [place] [address] PCP - General Family Medicine 06/04/21 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 Specialty Start Date End Date Kimberley Morgan DO [address] [place] [address] PCP - General Family Medicine 06/04/21 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 Specialty Start Date End Date Hazel Velásquez MD [address] [place] [address] PCP - General Family Medicine 10/28/23 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 Specialty Start Date End Date Hazel Velásquez MD [address] [place] [address] PCP - General Family Medicine 10/28/23 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 Specialty Start Date End Date Hazel Velásquez MD [address] [place] [address] PCP - General Family Medicine 10/28/23 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 Specialty Start Date End Date Hazel Velásquez MD [address] [place] [address] PCP - General Family Medicine 10/28/23 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 Specialty Start Date End Date Hazel Velásquez MD [address] [place] [address] PCP - General Family Medicine 10/28/23 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 Specialty Start Date End Date Hazel Velásquez MD [address] [place] [address] PCP - General Family Medicine 10/28/23 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 Specialty Start Date End Date Hazel Velásquez MD [address] [place] [address] PCP - General Family Medicine 10/28/23 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 Specialty Start Date End Date Hazel Velásquez MD [address] [place] [address] PCP - General Family Medicine 10/28/23 Daphney Hubbard MD [address] [place] [address] PCP - Medical Mcintosh MA 07/05/2407/04 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 Specialty Start Date End Date Hazel Velásquez MD [address] [place] [address] PCP - General Family Medicine 10/28/23 Daphney Hubbard MD [address] [place] [address] PCP - Medical Mcintosh MA 07/05/2407/04 Team Status: Active Member Role [...] September 04, 2024 End: September 04, 2024 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 Specialty Start Date End Date Hazel Velásquez MD [address] [place] [address] PCP - General Family Medicine 10/28/23 Daphney Hubbard MD [address] [place] [address] PCP - Medical Mcintosh MA 07/05/2407/04 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 Specialty Start Date End Date Hazel Velásquez MD [address] [place] [address] PCP - General Family Medicine 10/28/23 Daphney Hubbard MD [address] [place] [address] PCP - Medical Mcintosh MA 07/05/2407/04 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 Specialty Start Date End Date Hazel Velásquez MD [address] [place] [address] PCP - General Family Medicine 10/28/23 Daphney Hubbard MD [address] [place] [address] PCP - Medical Mcintosh MA 07/05/2407/04 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 Specialty Start Date End Date Hazel Velásquez MD [address] [place] [address] PCP - General Family Medicine 10/28/23 Daphney Hubbard MD [address] [place] [address] PCP - Medical Mcintosh MA 07/05/2407/04 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 Specialty Start Date End Date Hazel Velásquez MD [address] [place] [address] PCP - General Family Medicine 10/28/23 Daphney Hubbard MD [address] [place] [address] PCP - Medical Mcintosh MA 07/05/2407/04 Team Status: Inactive Member Role Status Dates NON STAFF Primary Care Provider Active Start: November 23, 2024 End: November 23, 2024 Marc Rhoades APRN Attending Provider Active Start: November 23, 2024 End: November 23, 2024 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 Specialty Start Date End Date Hazel Velásquez MD [address] [place] [address] PCP - General Family Medicine 10/28/23 Daphney Hubbard MD [address] [place] [address] PCP - Medical Mcintosh MA 07/05/2407/04 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 Specialty Start Date End Date Hazel Velásquez MD [address] [place] [address] PCP - General Family Medicine 10/28/23 Daphney Hubbard MD [address] [place] [address] PCP - Medical Mcintosh MA 07/05/2407/04 Scheduled Active and Recently Administ [...] Switch to gravity)1027 (New Bag - Provider: Marc Kasza, DISABILITIES SERVICES OFFICER - [employer] BRUSHER MACHINE)1042 (Stopped - Provider: JARROD Fierro CRNA) PRN [...] BE BASED ON THE PRIMARY CLINICAL RECORDS. [employer] provides no warranty or guarantee of the accuracy or completeness of information in this document.
== END 2025-03-19 12:29 | disposition home or self-care (01) ==
PROVIDERS: Visit Provider Anesthesiology
DX: M47.816 Spondylosis without myelopathy or radiculopathy, lumbar region (principal); M54.50 Low back pain, unspecified; E11.8 Type 2 diabetes mellitus with unspecified complications; Z79.84 Long term (current) use of oral hypoglycemic drugs; Z79.85 Long-term (current) use of injectable non-insulin antidiabetic drugs
CPT/HCPCS: 36415; 64493; 64494; 82948; J0665

== ENCOUNTER 2025-03-22 10:42 | Outpatient (OUT) | payer MEDICARE, SELFPAY ==
--- OUTSIDE RECORDS SUMMARY | 2025-03-22 10:47 | XMS_ITS | CCD ---
Author Organization [facility] Care Team Providers Care Inbound Telemarketer Name Role Phone ZAIRE, CRISTOBAL F Primary [...] Care Unavailable FELICIA, FEMI H. Referring Unavailable Waverly, Cristobal F Unavailable [phone] Edwige DO, Kimberley Leora Primary Care [...] Admitting Unavailable MONROE ., BEN Consulting Unavailable MISC, DR LOPEZ Consulting Unavailable MISC, DR LOPEZ Primary Care Unavailable DAYAMI ., DR RACHEL Layne Attending Unavailable DAYAMI ., DR RACHEL Layne Admitting Unavailable MONROE ., BEN Consulting Unavailable FER ., BEN Consulting Unavailable MISC, DR LOPEZ [...] Consulting Unavailable JAVIER ROLDAN Consulting Unavailable Kimberley Morgan DO Primary Care Provider Unavailable Primary Care Provider UnavailMAXIMILIANO Parker Attending Unavailable MAXIMILIANO YOU Admitting Unavailable VANINANCY OSORIO Admitting Unavailable NANCY LUDWIG Attending Unavailable NICOLE TELLES Referring Unavailable NICOLE TELLES Referring Unavailable NICOLE TELLES Referring Unavailable Hazel Velásquez MD Primary Care Provider Daphney Hubbard MD Unavailable JOHN GAUTHIER Attending Unavailable LUKAS LUZ Attending Unavailable HAZEL VELÁSQUEZ Attending Unavailable JOHN GAUTHIER Attending Unavailable AYESHA, LUKAS Attending Unavailable AYESHA, LUKAS Attending Unavailable HAZEL VELÁSQUEZ Attending Unavailable HAZEL VELÁSQUEZ Referring Unavailable JOHN GAUTHIER Attending Unavailable HAZEL VELÁSQUEZ Attending Unavailable HAZEL VELÁSQUEZ Attending Unavailable DALE HUTCHISON Attending Unavailable TIM CULVER Attending Unavailable TIM CULVER Attending Unavailable Giedraitis , Andrius Laurent Attending Unavailable Giedraitis , Andrius Renuautmarsha Attending Unavailable Giedraitis MD, Andrius Vytautas Attending Unavailable Giedraitis MD, Andrius Vytautas Attending Unavailable Giedraitis MD, Andrius Vytautas Attending Unavailable Giedraitis MD, Andrius Vytautmarsha Attending Unavailable Allergies Allergy Classification Reported Allergen(s) Allergy Type Date of Onset Reaction(s) Facility (20 sources) Ibuprofen; Translations: [IBUPROFEN] Drug Allergy 0 Unknown, Diarrhea, GI intolerance [facility] (20 sources) traMADol; Translations: [TRAMADOL] Drug Allergy 9 Unknown, Nausea Only [facility] (1 source) Ibuprofen Drug Allergy [facility] (1 source) traMADol Drug Allergy 2 [facility] Medications Current Medications Medication Drug [...] Corticosteroid Start: Fluticasone Propionate (Flonase) 50 mcg/actuation Rewey,Suspension Active 1 SPRAY INTRANASAL Twice daily January [...] 12:00am ammonium lactate 120 mg/ml topical cream (18 sources) Start: 08-21-2024 End: 08-21-2025 ammonium lactate (Amlactin) 12 % cream Indications: Corns and callosities Apply topically Daily 140 g 3 08/21/2024 08/21/2025 Active lamoTRIgine 100 mg oral tablet (20 sources) Mood Stabilizer, Anti-epileptic Agent Start: 12-25-2024 lamoTRIgine (LaMICtal) 100 MG tablet 12/25/2024 Active Start: 12-02-2021 lamoTRIgine (L AMICTAL) 100 mg tablet Start: 01-07-2021 take 3 tablets by [facility] once daily Lamotrigine 100 mg Tablet [...] EVENING WITH A MEAL 60 tablet 1 03/12/2025 Active 24 hr metoprolol succinate 50 mg extended release oral tablet (20 sources) beta-Adrenergic Dc Start: 5 metoprolol succinate XL (Toprol-XL) 50 MG 24 [...] at the same time 30 patch 02/13/2025 Active Start: 10-28-2023 End: 02-13-2025 nicotine (Nicoderm, Step 1) 21 MG/24HR patch Indications: Smoking addiction Place 1 patch over 24 hours on the skin 1 (one) time each day at the same time 42 patch 10/28/2023 02/13/2025 Discontinued Notrees-3 Fatty Acids (FISH OI L) 1200 MG CAPS (2 sources) Notrees-3 Fatty Ac ids (FISH OIL) 1200 MG CAPS Take by mouth daily Active Notrees-3 Fatty Ac ids (FISH OIL) 1200 MG [...] per week 2 mL 02/13/2025 03/15/2025 Active Tirzepatide 5 MG/0.5ML solution auto-injector (1 source) Start: 03-21-2025 End: 04-20-2025 inject 5 mg by subcutaneous injection every week Tirzepatide 5 MG/0.5ML solution auto-injector Indications: Type 2 diabetes mellitus with unspecified complications (HCC) Inject 5 mg under the skin 1 (one) time per week 2 mL 03/21/2025 04/20/2025 Active Completed/Discontinued Medications Medication Drug Class(es) Dates [...] capsule (1 source) Provitamin D2 Compound Start: 12-09-03 End: ergocalciferol 50,000 unit capsule (VITAMIN D2, [...] 22, 2021 12:00am November 23, 2024 10:53am [id number]-dha-epa-joey spho-ast [id number] mg cap (4 sources) [id number]-dx-9-dha-e pa-ph ospho-ast 1,[id number] mg cap Take by mouth. 0 Active [...] Comment on above: Take 1 tablet by [facility] once daily. 2 ml metoclopramide 5 mg/ml [...] 3:38pm Start: 09-04-2024 take 1 capsule by [facility] once daily Omeprazole 20 mg capsule,delayed [...] long-term current use of insulin ([facility]) DIAL AND INJECT UNDER THE SKIN 0.5 MG WEEKLY 3 mL 1 11/18/2024 02/13/2025 Discontinued Start: 11-18-2024 inject 0.5 mg by sub cutaneous injection every week Ozempic, 0.25 or 0.5 MG/DOSE, 2 MG/3ML solution pen-injector Indications: Type 2 diabetes mellitus without complication, without long-term current use of insulin ([facility]) DIAL AND INJECT UNDER THE [...] Coronary arteriosclerosis; Translations: [Atherosclerotic heart disease of [place] coronary artery with unspecified angina pectoris] Onset: 01-13-2023 02-11-2023 Chronic Deficiency and other anemia (1 source) Anemia in other chronic diseases classified elsewhere; Translations: [Anemia of chronic disease] Onset: 12-12-2021 Chronic Diabetes mellitus with complications (13 sources) Polyneuropathy due to type 2 diabetes [...] Onset: 02-15-2018 02-11-2023 Chronic Heart valve disorders (5 sources) Non-rheumatic mitral regurgitation ; Translations: [Nonrheumatic mitral (valve) insufficiency] Onset: 11-08-2024 02-13-2025 Chronic Joint disorders and dislocations; trauma-related (20 sources) Derangement of right knee; Translations: [Unspecified internal derangement of right knee] Onset: 09-18-2020 01-19-2023 Chronic Mood disorders (20 sources) Bipolar I disorder; Translations: [Bipolar disorder, unspecified] Onset: 02-14-2018 07-18-2023 Chronic Mycoses (3 sources) Onychomycosis; Translations: [Tinea unguium] 07-25-2024 Episodic Nausea and vomiting (2 sources) Nausea and vomiting; Translations: [Nausea with vomiting, unspecified] 02-13-2025 Episodic Nutritional deficiencies (20 sources) Vitamin D deficiency; Translations: [Vitamin D deficiency, unspecified] Onset: 12-12-2021 Chronic Osteoarthritis (20 sources) Degenerative joint disease involving multiple joints; 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] Onset: 06-05-2021 Chronic Other aftercare (1 source) long term acute care registered nurse (current) use of anticoagulants; Translations: [SUPERVISOR ALUMINUM FABRICATION CURRNT USE ANTICOAGULANTS] Onset: 10-19-2022 Episodic Other aftercare (3 sources) Long-term current use of benzodiazepine; Translations: [Other intermission coordinator (current) drug therapy] Onset: 02-13-2025 02-13-2025 Episodic [...] 01-10-2020 01-19-2023 Chronic Other non-traumatic joint disorders (5 sources) Shoulder pain; Translations: [Pain in joint, [...] (20 sources) Drug therapy finding; Translations: [Other intermission coordinator (current) drug therapy] Onset: 3 02-11-2023 Episodic Other aftercare (20 sources) residential current use of non-steroidal anti-inflammatory drug; Translations: [residential (current) use of non-steroidal anti-inflammatories (NSAID)] Onset: 3 07-26-2023 Episodic Other aftercare (3 sources) Patient encounter status; Translations: [Encounter for therapeutic drug level monitoring] Onset: 4 02-13-2025 Episodic Other bone disease and musculoskeletal deformities (20 sources) Osteopenia; Translations: [Other specified disorders of bone density and structure, unspecified site] Onset: 3 07-26-2023 Episodic Other bone disease and musculoskeletal deformities (3 sources) Disorder of bone; Translations: [Other specified [...] 7 01-19-2023 Episodic Other connective tissue disease (3 sources) Muscle pain; Translations: [Myalgia, other site] Onset: 4 02-13-2025 Episodic Other connective tissue disease (3 sources) Bursitis of knee; Translations: [Other bursitis [...] [Eructation] Onset: 4 Episodic Other gastrointestinal disorders (3 sources) Burping; Translations: [Eructation] Onset: 4 02-13-2025 Episodic Other gastrointestinal disorders (3 sources) Passing flatus; Translations: [Flatulence] Onset: 4 02-13-2025 Episodic Other gastrointestinal disorders (3 sources) Abdominal wind pain; Translations: [Gas pain] [...] Resolved: 1 Episodic Other non-traumatic joint disorders (3 sources) Joint pain; Translations: [Pain in unspecified [...] [Cellulitis of face] Onset: 7 01-19-2023 Episodic Substance-related disorders (20 sources) Marijuana user; Translations: [Cannabis use, unspecified, uncomplicated] Onset: 3 02-11-2023 Episodic Unclassified (1 source) Inappropriate sinus tachycardia, so stated; Translations: [Inappropriate sinus tachycardia, so stated] Onset: 5 Viral infection (20 sources) Herpes zoster without complication; Translations: [Zoster without complications] Onset: 7 01-19-2023 Episodic Results Test Name Value Interpretation Reference Range [address] 03-15-2025 36 TESSA Villafuerte MA Please let her know her ECHO showed she may be on the dry side, recommend she increase her fluid intake. Her valve function is stable. Follow-up as planned. Thanks Phone call to patient advised patient of Echo results per Marilee Culver CNP. Patient verbalized understanding and agreed with plan of care. Normal [facility] - Hematology and Cell countson 02-13-2025 HbA1c (Bld) [Mass fraction] 6.2 % [facility] No Panel Informationon 02-13 [facility] 36on 01-11-2025 36 Rae Denney MA Lyly [...] during your recent visit on 11/08/2024 at [facility]. Don't forget that you can review your After-Visit Summary by navigating to the [email or web address][Visit Summaries] page. If you have any questions about the care you received, please don't hesitate to reply to this message at any time. Sincerely, Your Care Team Normal [facility] BI MAMMOGRAM SCREENING TOMOS YNTHESIS BILATERALon 12-01-2024 [...] II, MD, PHD at 04-Dec-2024 10:23:23 AM [facility] Normal Not Available 37on 11-08-2024 37 *Increase metoprolol to 50mg daily. You can take 2 tablets of your current prescription until this runs out then start the new prescription of 1 tablet, 50mg daily. *Follow-up in 3 months with a heart ultrasound prior. Normal [facility] - Hematology and Cell countson 11-08-2024 HbA1c (Bld) [Mass fraction] 6.1 % [facility] No Panel Informationon 11-08 Interpretation and review of laboratory results Normal [facility] Office Visiton 11-08-2024 Follow-up visit [id number] Nikko Garcia 1970 F Date Provider Department Center 11/08/2024 TIM CORONEL Family History Problem Relation Age of Onset COPD Mother Heart failure Mother Coronary artery disease Father 56 Family Status - Relation Status Age at Mother Father Sister Alive Brother Alive Level of Service:36318 MA OFFICE/OUTPATIENT ESTABLISHED MOD MDM 30 MIN Reason for Visit and Comments: Palpitations [974088] Normal [facility] Office Visiton 10-17-2024 Follow-up visit [id number] Nikko Garcia 1970 F Date Provider Department Center 10/17/2024 TIM CORONEL Family History Problem Relation Age of Onset COPD Mother Heart failure Mother Coronary artery disease Father 56 Family Status - Relation Status Age at Mother Father Sister Alive Brother Alive Level of Service:32760 MA OFFICE/OUTPATIENT ESTABLISHED MOD MDM 30 MIN Reason for Visit and Comments: Palpitations [919730] Hypertension [124134] Coronary Artery Disease [187] Chest Pain [830698] [facility] Orders Onlyon 08-07-2024 Orders Only [id number] Nikko Garciahia 1970 F Date Provider Department Center 08/07/2024 [id number], AYA [facility] Family History Problem Relation Age of Onset COPD Mother Coronary artery disease Father 56 Family Status - Relation Status Age at Mother Alive Father [facility] Orders Onlyon 08-04-2024 Orders Only [id number] Nikko Garcia ynthia 1970 F Date Provider Department Center 08/04/2024 [id number], AYA [facility] Family History Problem Relation Age of Onset COPD Mother Coronary artery disease Father 56 Family Status - Relation Status Age at Mother Alive Father [facility] 08-03-2024 [facility] called and wanted Dr. Rodriguez to clarify that the patient should be taking 3 pill a day instead of two [facility] 07-27-2024 36 [facility] fr reggie Julio called and wanted to know can you clarify on the directions of how you want the patient to take her Celebrex medication because there is two different direction on how to take the Celebrex medication when the medcation was sent the from time [facility] Refillon 07-27-2024 Refill [id number] Nikko Garciahia 1970 F Date Provider Department Center 07/27/2024 OVIDIO SANTILLAN [facility] Family History Problem Relation Age of Onset COPD Mother Coronary artery disease Father 56 Family Status - Relation Status Age at Mother Alive Father [facility] 3607-04-2024 36 Last Visit: 01/25/24 No Upcoming Visit [facility]illon 07-04-2024 Refill [id number] Nikko Garcianthia 1970 F Date Provider Department Center 07/04/2024 Ilda-SOLITARIO GARCÍA [facility] Family History Problem Relation Age of Onset COPD Mother Coronary artery disease Father 56 Family Status - Relation Status Age at Mother Alive Father Reason for Visit and Comments: Med Refill [978455] Normal [facility] EGDon 06-09-2024 No dictation [facility] 800APP Pramana EGDOrdered By: User Epic on 06-09-2024 [facility] Pramana Work Phone: Surgical Pathology Reporton 06-09-2024 Surgical Pathology Report (NOTE) Path Number: [id number] -- Diagnosis -- DISTAL ESOPHAGUS, BIOPSY: -SQUAMOUS [...] 0.2 cm in aggregate. Entirely 1 cs. lm mj Piyush Lozano M.D./se:06/12/2024 Microscopic Description Microscopic examination performed. Processing Lab: [address] [address] [place] [address] SURGICAL PATHOLOGY CONSULTATION Patient Name: LEXI GARCIA Med Rec: [id number] [facility] [employer] [facility] ANATOMIC PATHOLOGY [address] [facility] [place], [place] [address] [facility] Orders Onlyon 05-17-2024 Orders Only [id number] Jose,C sreedhar 1970 F Date Provider Department Center 05/17/2024 3848-DALE HUTCHISON ALYSA Lorenzana Family History Problem Relation Age of Onset COPD Mother Coronary artery disease Father 56 Family Status - Relation Status Age at Mother Alive Father Normal [facility] Office Visiton 05-04-2024 Follow-up visit [id number] Nikko Garcia sreedhar 1970 F Date Provider Department Center 05/04/2024 3848-DALE HUTCHISON ALYSA [facility] Family History Problem Relation Age of Onset COPD Mother Coronary artery disease Father 56 Family Status - Relation Status Age at Mother Alive Father Level of Service:03171 [place] OFFICE/OUTPATIENT ESTABLISHED LOW MDM 20 MIN Normal [facility] Surgical Pathology Reporton 02-03-2024 Surgical Pathology Report (NOTE) Path Number: [id number] -- Diagnosis -- A. STOMACH, ANTRUM, BIOPSIES: [...] DUODENAL BULB Received in formalin are four rosaod-white tissue fragments from < 0.1 to 0.4 cm and are 0.9 x 0.2 x 0.2 cm in aggregate. Entirely 1cs. C. LEXI JOSE, GE JUNCTION Received in formalin are two rosado-white tissue fragments, < 0.1 cm and are 0.5 x 0.2 x 0.2 cm in aggregate. Entirely 1cs. jj tm David Hough M.D./kb2:02/03/2024 Microscopic Description A-C. Microscopic examination performed. Processing Lab: [address] [address] Interpretation Performed at [address] [address] SURGICAL PATHOLOGY CONSULTATION Patient Name: LEXI GARCIA [facility] Rec: [id number] [facility] CONSULTING PATHOLOGISTS [facility] ANATOMIC PATHOLOGY [address] [place] [id number] Normal [facility] Celiac Disease Panelon 09-13 Gliadin Deam Pep IgA 1.9 U/mL Normal <7.0 [facility] Comment on above: Result Comment: CELIAC INTERPRETATION <7.0 Negative 7.0-10.0 Equivocal >10.0 Positive units: U/mL Performed By: #### C ELP #### [address] [id number] Vice President Payment: Talib Clements MD Gliadin Deam Pep IgG <0.4 Normal <7.0 [facility] Comment on above: Result Comment: CELIAC INTERPRETATION <7.0 Negative 7.0-10.0 Equivocal >10.0 Positive units: U/mL Performed By: #### C ELP #### [address] [id number] Vice President Payment: Talib Clements MD Tiss Transglutam IgA 0.4 U/mL Normal <7.[address] [place] [address] Comment on above: Result Comment: CELIAC INTERPRETATION <7.0 Negative 7.0-10.0 Equivocal >10.0 Positive units: U/mL Performed By: #### C ELP #### [address] [id number] Vice President Payment: Talib Clements MD IgA [Mass/Vol] 184 mg/dL Normal 70-400 [facility] Comment on above: Performed By: #### C ELP #### [address] [id number] Vice President Payment: Talib Clements MD H. pylori Antigenon 09-14-19 24 H. pylori Antigen Specimen Description .FECES Direct Exam NEGATIVE Report Status FINAL 09/14/2023 Normal [facility] Comment on above: Performed By: #### F HPY #### [facility] [address] [place] [address] Vice President Payment: Talib Clements MD [facility] [address] [place] [address] Vice President Payment: David Hough MD CBC AUTO DIFFon 10-07-2022 BASO # 0.0 103/ul Normal 0.0-0.1 [facility] Comment on above: Performed By: #### C BC #### [facility] [address] [place] [address] Dr. Donna Cantrell Basophils/100 WBC (Bld) 0.5 % Normal 0.2-2.0 [facility] Comment on above: Performed By: #### C BC #### [facility] [address] [place] [address] Dr. Donna Cantrell EO # 0.0 103/ul Normal 0.0-0.7 [facility] Comment on above: Performed By: #### C BC #### [facility] [address] [place] [address] Dr. Donna Cantrell Eosinophils/100 WBC (Bld) 0.0 % Critically low 0.9-7.0 [facility] Comment on above: Performed By: #### C BC #### [facility] [address] [place] [address] Dr. Donna Cantrell Erythrocyte distribution width (RBC) [Ratio] 13.6 % Normal 11.0-15.0 [facility] Comment on above: Performed By: #### C BC #### [facility] [address] [place] [address] Dr. Donna Cantrell Hematocrit (Bld) [Volume fraction] 42.0 % Normal 36.0-48.0 [facility] Comment on above: Performed By: #### C BC #### [facility] [address] [place] [address] Dr. Donna Cantrell Hemoglobin (Bld) [Mass/Vol] 14.4 g/dL Normal 12.0-16.0 [facility] Comment on above: Performed By: #### C BC #### [facility] [address] [place] [address] Dr. Donna Cantrell IG # 0.06 10e3/ul Critically high 0.00-0.03 [facility] Comment on above: Performed By: #### C BC #### [facility] [address] [place] [address] Dr. Donna Cantrell IG % 0.8 % Critically high 0.0-0.5 [facility] Comment on above: Performed By: #### C BC #### [facility] [address] [place] [address] Dr. Donna Cantrell LYMPH # 2.5 103/ul Normal 1.2-3.8 [facility] Comment on above: Performed By: #### C BC #### [facility] [address] [place] [address] Dr. Donna Cantrell Lymphocytes/100 WBC (Bld) 30.8 % Normal 20.5-60.0 [facility] Comment on above: Performed By: #### C BC #### [facility] [address] [place] [address] Dr. Donna Cantrell MANUAL DIFF REQ NO Normal [facility] Comment on above: Performed By: #### C BC #### [facility] [address] [place] [address] Dr. Donna Cantrell MCH (RBC) [Entitic mass] 30.3 pg Normal 26.7-34.0 [facility] Comment on above: Performed By: #### C BC #### [facility] [address] [place] [address] Dr. Donna Cantrell MCHC (RBC) [Mass/Vol] 34.3 g/dL Normal 29.9-35.2 [facility] Comment on above: Performed By: #### C BC #### [facility] [address] [place] [address] Dr. Donna Cantrell MCV (RBC) [Entitic vol] 88.2 fL Normal 81.0-99.0 [facility] Comment on above: Performed By: #### C BC #### [facility] [address] [place] [address] Dr. Donna Cantrell MONO # 0.5 103/ul Normal 0.3-0.8 [facility] Comment on above: Performed By: #### C BC #### [facility] [address] [place] [address] Dr. Donna Cantrell Monocytes/100 WBC (Bld) 6.4 % Normal 1.7-12.0 [facility] Comment on above: Performed By: #### C BC #### [facility] [address] [place] [address] Dr. Donna Cantrell NEUT # 4.9 103/ul Normal 1.4-6.5 [facility] Comment on above: Performed By: #### C BC #### [facility] [address] [place] [address] Dr. Donna Cantrell Neutrophils/100 WBC (Bld) 61.5 % Normal 43.0-75.0 [facility] Comment on above: Performed By: #### C BC #### [facility] [address] [place] [address] Dr. Donna Cantrell Platelet mean volume (Bld) [Entitic vol] 9.9 fL Normal 9.5-13.5 [facility] Comment on above: Performed By: #### C BC #### [facility] [address] [place] [address] Dr. Donna Cantrell PLT 234 103/ul Normal 150-450 [facility] Comment on above: Performed By: #### C BC #### [facility] [address] [place] [address] Dr. Donna Cantrell RBC 4.76 106/ul Normal 4.20-5.40 [facility] Comment on above: Performed By: #### C BC #### [facility] [address] [place] [address] Dr. Donna Cantrell WBC 8.0 103/ul Normal 4.0-11.0 [facility] Comment on above: Performed By: #### C BC #### [facility] [address] [address] [address] Donna Cantrell PROF CHEM 8 (BAS METB)on Anion gap [Moles/Vol] 13.9 mmol/L Normal [facility] Comment on above: Performed By: #### B MP #### [facility] [address] [place] [address] Dr. Donna Cantrell Calcium [Mass/Vol] 8.9 mg/dL Normal 8.5-10.1 [facility] Comment on above: Performed By: #### B MP #### [facility] [address] [place] [address] Dr. Donna Cantrell Chloride [Moles/Vol] 104 mmol/L Normal 98-107 [facility] Comment on above: Performed By: #### B MP #### [facility] [address] [place] [address] Dr. Donna Cantrell CO2 [Moles/Vol] 26.3 mmol/L Normal 21.0-32.0 [facility] Comment on above: Performed By: #### B MP #### [facility] [address] [place] [address] Dr. Donna Cantrell Creatinine [Mass/Vol] 0.91 mg/dL Normal 0.55-1.02 [facility] Comment on above: Performed By: #### B MP #### [facility] [address] [place] [address] Dr. Donna Cantrell EGFR-AF FINNISH >60 Normal >=60 [facility] Comment on above: Performed By: #### B MP #### [facility] [address] [place] [address] Dr. Donna Cantrell EGFR-NON AF FINNISH >60 Normal >=60 [facility] Comment on above: Performed By: #### B MP #### [facility] [address] [place] [address] Dr. Donna Cantrell Glucose [Mass/Vol] 127 mg/dL Critically high 74-106 [facility] Comment on above: Performed By: #### B MP #### [facility] [address] [address] [address] Donna Cantrell Potassium [Moles/Vol] 4.2 mmol/L Normal 3.5-5.1 [facility] Comment on above: Performed By: #### B MP #### [facility] [address] [address] [address] Donna Cantrell Sodium [Moles/Vol] 140 mmol/L Normal 136-145 [facility] Comment on above: Performed By: #### B MP #### [facility] [address] [address] [address] Donna Cantrell Urea nitrogen [Mass/Vol] 15.0 mg/dL Normal 7.0-18.0 [facility] Comment on above: Performed By: #### B MP #### [facility] [address] [place] [address] Dr. Donna Cantrell Urea nitrogen/Creatini ne [Mass ratio] 16.5 mg/mg Normal [facility] Comment on above: Performed By: #### B MP #### [facility] [address] [place] [address] Dr. Donna Cantrell PROTIMEon 10-07-2022 INR Coag (PPP) [Relative time] {INR} Normal [facility] Comment on above: Performed By: #### B LTM #### [facility] [address] [place] [address] Dr. Donna Cantrell INR GUIDELINES SEE BELOW Normal [facility] Comment on above: Result Comment: SHIRA RED INR: 2.0 - 3.0 CONDITIONS NOT LISTED BELOW 2.5 - 3.5 FOR PROSTHETIC HEART VALVE REPLACEMENT 2.5 - 3.5 RECURRENT THROMBOSIS Performed By: #### B LTM #### [facility] [address] [place] [address] Dr. Donna Cantrell PT Coag (PPP) [Time] 9.7 s Normal 9.0-11.6 [facility] Comment on above: Performed By: #### B LTM #### [facility] [address] [place] [address] Dr. Donna Cantrell PTTon 10-07-2022 aPTT Coag (Bld) [Time] 29.6 s Normal 22.3-36.2 [facility] Comment on above: Performed By: #### B LTM #### [facility] [address] [place], [place] [address] Dr. Donna Cantrell SCREENING MAMMOGRAM W/AJ, BILATERAL*on [...] Eder Barraza on 07/01/[address] [facility] XR Shoulder Complete Right*o n 07-01-2022 XR Shoulder Complete Right* FINDINGS: Comparison made with prior examination May 16, 2021. Similar post-surgical changes, narrowing of the distal clavicle, normal AC joint alignment. Mid cervical plate screw fusion hardware. No fracture. Normal glenohumeral joint space. IMPRESSION: 1. Post-surgical changes of the distal clavicle/AC joint 2. No fracture Report reported and signed by Eder Barrzaa on 07/02/[address] [facility] [place] XR Spine Lumbar Complete w/F jama AND [place] 07-01-2022 XR Spine Lumbar Complete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 [facility] Comment on above: Performed By: #### B MPX #### [facility] [address] [place] [address] Creatinine [Mass/Vol] 0.72 mg/dL Normal 0.50-0.90 [facility] Comment on above: Performed By: #### B MPX #### [facility] [address] [place] [address] GFR/1.73 sq M predicted among blacks MDRD (S/P/Bld) [Vol rate/Area] mL/min/{1.73_m2} Normal >60 [facility] Comment on above: Result Comment: >60 mL/min/1.73m2 EGFR, calc. for ages 18 and older using the MDRD formula (not corrected for weight), is valid for stable renal function. Performed By: #### B MPX #### [facility] [address] [place] [address] GFR/1.73 sq M.predicted MDRD (S/P/Bld) [Vol rate/Area] mL/min/{1.73_m2} Normal >60 [facility] Comment on above: Result Comment: >60 mL/min/1.73m2 EGFR, calc. for ages 18 and older using the MDRD formula (not corrected for weight), is valid for stable renal function. Performed By: #### B MPX #### [facility] [address] [place] [address] Glucose [Mass/Vol] 118 mg/dL Critically high 70-99 [facility] Comment on above: Performed By: #### B MPX #### [facility] [address] [place] [address] Potassium reflex Mg 4.6 mEq/L Normal 3.4-4.9 [facility] Comment on above: Performed By: #### B MPX #### [facility] [address] [place] [address] Sodium [Moles/Vol] 133 mmol/L Low 135-144 [facility] Comment on above: Performed By: #### B MPX #### [facility] [address] [place] [address] Urea nitrogen [Mass/Vol] 16 mg/dL Normal 6-20 [facility] Comment on above: Performed By: #### B MPX #### [facility] [address] [place] [address] CBC With Platelet No Differe ntialon 06-25-2020 Erythrocyte distribution width (RBC) [Ratio] 14.3 % Normal 11.5-14.5 [facility] Comment on above: Performed By: #### C BCND #### [facility] [address] [place] [address] Hematocrit (Bld) [Volume fraction] 39.4 % Normal 37.0-47.0 [facility] Comment on above: Performed By: #### C BCND #### [facility] [address] [place] [address] Hemoglobin (Bld) [Mass/Vol] 12.9 g/dL Normal 12.0-16.0 [facility] Comment on above: Performed By: #### C BCND #### [facility] [address] [place] [address] MCH (RBC) [Entitic mass] 30.4 pg Normal 27.0-31.3 [facility] Comment on above: Performed By: #### C BCND #### [facility] [address] [place] [address] MCHC (RBC) [Mass/Vol] 32.8 % Low 33.0-37.0 [facility] Comment on above: Performed By: #### C BCND #### [facility] [address] [place] [address] MCV (RBC) [Entitic vol] 92.7 fL Normal 82.0-100.0 [facility] Comment on above: Performed By: #### C BCND #### [facility] [address] [place] [address] Platelets (Bld) [#/Vol] 213 10*3/uL Normal 130-400 [facility] Comment on above: Performed By: #### C BCND #### [facility] [address] [place] [address] RBC (Bld) [#/Vol] 4.25 10*6/uL Normal 4.20-5.40 [facility] Comment on above: Performed By: #### C BCND #### [facility] [address] [place] [address] WBC (Bld) [#/Vol] 12.0 10*3/uL Critically high 4.8-10.8 [facility] Comment on above: Performed By: #### C BCND #### [facility] [address] [facility] [address] FLUORO FOR SURGICAL PROCEDUR ESon 06-25-2020 FLUORO [...] Maximiliano Rachel MD 06/26/20 Final result Normal [facility] Surgical Specimenon 06-25-20 20 Surgical Specimen [facility] [address] [place] [address] FINAL SURGICAL PATHOLOGY REPORT Patient Name: LEXI GARCIA Accession No: [id number] Age Sex: 1970 Location: [facility] [id number] Account No: [id number] Collected: 06/25/2020 Med Rec No: [id number] Received: 06/25/2020 Attend Phys: FEMI DUARTE Completed: [...] in one cassette after decalcification. WALTER/JOSIE CPT: 98849 X1 82029 X1 ANABELLA LEWIS M.D. 06/26/2020 Electronically signed out by Page 1 of 1 [facility] Comment on above: Performed By: #### S UR ####[facility] [facility] [phone] COVID-19, NAAon 06-20-2020 COVID-19, BELLE Not Detected Normal Not Detect [facility] Comment on above: Result Comment: This nucleic acid amplification test was developed and its performance characteristics determined by [employer]. Nucleic acid amplification tests include PCR and [...] result in this assay. Performed at: [facility] [address] [facility] [place], [place] [id number] Vice President Payment: Altagracia Quiñonez MD, Phone: [phone] Performed By: #### I RCOV #### [facility] [address] [place] [address] Basic Metabolic Panelon 06-04 Anion gap [Moles/Vol] 11 mmol/L Normal 9-15 [facility] Comment on above: Performed By: #### B MP #### [facility] [address] [place] [address] Calcium [Mass/Vol] 9.0 mg/dL Normal 8.5-9.9 [facility] Comment on above: Performed By: #### B MP #### [facility] [address] [place] [address] Chloride [Moles/Vol] 106 mmol/L Normal 95-107 [facility] Comment on above: Performed By: #### B MP #### [facility] [address] [place] [address] CO2 [Moles/Vol] 23 mmol/L Normal 20-31 [facility] Comment on above: Performed By: #### B MP #### [facility] [address] [place] [address] Creatinine [Mass/Vol] 0.76 mg/dL Normal 0.50-0.90 [facility] Comment on above: Performed By: #### B MP #### [facility] [address] [place] [address] GFR/1.73 sq M predicted among blacks MDRD (S/P/Bld) [Vol rate/Area] mL/min/{1.73_m2} Normal >60 [facility] Comment on above: Result Comment: >60 mL/min/1.73m2 EGFR, calc. for ages 18 and older using the MDRD formula (not corrected for weight), is valid for stable renal function. Performed By: #### B MP #### [facility] [address] [place] [address] GFR/1.73 sq M.predicted MDRD (S/P/Bld) [Vol rate/Area] mL/min/{1.73_m2} Normal >60 [facility] Comment on above: Result Comment: >60 mL/min/1.73m2 EGFR, calc. for ages 18 and older using the MDRD formula (not corrected for weight), is valid for stable renal function. Performed By: #### B MP #### [facility] [address] [place] [address] Glucose [Mass/Vol] 87 mg/dL Normal 70-99 [facility] Comment on above: Performed By: #### B MP #### [facility] [address] [place] [address] Potassium [Moles/Vol] 3.8 mmol/L Normal 3.4-4.9 [facility] Comment on above: Performed By: #### B MP #### [facility] [address] [place] [address] Sodium [Moles/Vol] 140 mmol/L Normal 135-144 [facility] Comment on above: Performed By: #### B MP #### [facility] [address] [place] [address] Urea nitrogen [Mass/Vol] 20 mg/dL Normal 6-20 [facility] Comment on above: Performed By: #### B MP #### [facility] [address] [place] [address] CBC With Platelet No Differe ntialon 06-18-2020 Erythrocyte distribution width (RBC) [Ratio] 14.2 % Normal 11.5-14.5 [facility] Comment on above: Performed By: #### C BCND #### [facility] [address] [place] [address] Hematocrit (Bld) [Volume fraction] 41.5 % Normal 37.0-47.0 [facility] Comment on above: Performed By: #### C BCND #### [facility] [address] [place] [address] Hemoglobin (Bld) [Mass/Vol] 14.3 g/dL Normal 12.0-16.0 [facility] Comment on above: Performed By: #### C BCND #### [facility] [address] [place] [address] MCH (RBC) [Entitic mass] 31.4 pg Critically high 27.0-31.3 [facility] Comment on above: Performed By: #### C BCND #### [facility] [address] [place] [address] MCHC (RBC) [Mass/Vol] 34.5 % Normal 33.0-37.0 [facility] Comment on above: Performed By: #### C BCND #### [facility] [address] [place] [address] MCV (RBC) [Entitic vol] 91.2 fL Normal 82.0-100.0 [facility] Comment on above: Performed By: #### C BCND #### [facility] [address] [place] [address] Platelets (Bld) [#/Vol] 241 10*3/uL Normal 130-400 [facility] Comment on above: Performed By: #### C BCND #### [facility] [address] [place] [address] RBC (Bld) [#/Vol] 4.55 10*6/uL Normal 4.20-5.40 [facility] Comment on above: Performed By: #### C BCND #### [facility] [address] [place] [address] WBC (Bld) [#/Vol] 9.7 10*3/uL Normal 4.8-10.8 [facility] Comment on above: Performed By: #### C BCND #### [facility] [address] [place] [address] COVID-19, NAAon 06-18-2020 Source Swab PROC TECH swab Normal [facility] Comment on above: Performed By: #### I RCOV #### [facility] [address] [place] [address] Prothrombin Timeon 0 INR Coag (PPP) [Relative time] 1.0 {INR} Normal [facility] Comment on above: Performed By: #### P T ####[facility] [place] [phone] PT Coag (PPP) [Time] 13.1 s Normal 12.3-14.9 [facility] Comment on above: Performed By: #### P T ####[facility] [place] [phone] Type and Screen Capture 3 sc rn cellon 06-18-2020 Type and Screen Capture 3 scrn cell PATIENT: JOSE Doss LOC: [facility],, BILL# : [id number] : 1970 SEX: F ORDERED BY: TEENA Lowe ORDERED : 06/18/2020 15:07 COLLECTED: 06/18/2020 15:36 ORDER : [id number] RECEIVED : 06/18/2020 15:36 Second, confirmatory specimen needed to satisfy [employer] policy. TEST NAME RESULT UNITS RANGES ABN FL ST ABORH Capture O POS F Antibody 3 Cell Scrn Captu NEG F Normal [facility] Comment on above: Performed By: #### T S3C #### [facility] [address] [place] [address] XR SPINE ENTIRE (2-3 VIEWS)o n [...] Ash Horta MD 06/19/20 Final result Normal [facility] FLUORO FOR SURGICAL PROCEDUR ESon 05-09-2020 [...] Maximiliano Rachel MD 05/09/20 Final result Normal [facility] COVID-19, NAAon 05-05-2020 COVID-19, BELLE Not Detected Normal Not Detect [facility] Comment on above: Result Comment: This nucleic acid amplification test was developed and its performance characteristics determined by [employer]. Nucleic acid amplification tests include PCR and [...] detected) result in this assay. Performed at: [facility] [address] [facility] [place], [place] [id number] Vice President Payment: Altagracia Quiñonez MD, Phone: [phone] Performed By: #### I RCOV ####[facility] [place] [phone] Basic Metabolic Panelon 10-3 0-2020 Anion gap [Moles/Vol] 12 mmol/L Normal 9-15 [facility] Comment on above: Performed By: #### B MP #### [facility] [address] [place] [address] Calcium [Mass/Vol] 10.5 mg/dL Critically high 8.5-9.9 [facility] Comment on above: Performed By: #### B MP #### [facility] [address] [place] [address] Chloride [Moles/Vol] 98 mmol/L Normal 95-107 [facility] Comment on above: Performed By: #### B MP #### [facility] [address] [place] [address] CO2 [Moles/Vol] 27 mmol/L Normal 20-31 [facility] Comment on above: Performed By: #### B MP #### [facility] [address] [place] [address] Creatinine [Mass/Vol] 0.82 mg/dL Normal 0.50-0.90 [facility] Comment on above: Performed By: #### B MP #### [facility] [address] [place] [address] GFR/1.73 sq M predicted among blacks MDRD (S/P/Bld) [Vol rate/Area] mL/min/{1.73_m2} Normal >60 [facility] Comment on above: Result Comment: >60 mL/min/1.73m2 EGFR, calc. for ages 18 and older using the MDRD formula (not corrected for weight), is valid for stable renal function. Performed By: #### B MP #### [facility] [address] [place] [address] GFR/1.73 sq M.predicted MDRD (S/P/Bld) [Vol rate/Area] mL/min/{1.73_m2} Normal >60 [facility] Comment on above: Result Comment: >60 mL/min/1.73m2 EGFR, calc. for ages 18 and older using the MDRD formula (not corrected for weight), is valid for stable renal function. Performed By: #### B MP #### [facility] [address] [place] [address] Glucose [Mass/Vol] 84 mg/dL Normal 70-99 [facility] Comment on above: Performed By: #### B MP #### [facility] [address] [place] [address] Potassium [Moles/Vol] 4.6 mmol/L Normal 3.4-4.9 [facility] Comment on above: Performed By: #### B MP #### [facility] [address] [place] [address] Sodium [Moles/Vol] 137 mmol/L Normal 135-144 [facility] Comment on above: Performed By: #### B MP #### [facility] [address] [place] [address] Urea nitrogen [Mass/Vol] 31 mg/dL Critically high 6-20 [facility] Comment on above: Performed By: #### B MP #### [facility] [address] [place] [address] CBC With Platelet No Differe ntialon 05-03-2020 Erythrocyte distribution width (RBC) [Ratio] 14.3 % Normal 11.5-14.5 [facility] Comment on above: Performed By: #### C BCND #### [facility] [address] [place] [address] Hematocrit (Bld) [Volume fraction] 41.3 % Normal 37.0-47.0 [facility] Comment on above: Performed By: #### C BCND #### [facility] [address] [place] [address] Hemoglobin (Bld) [Mass/Vol] 13.6 g/dL Normal 12.0-16.0 [facility] Comment on above: Performed By: #### C BCND #### [facility] [address] [place] [address] MCH (RBC) [Entitic mass] 30.7 pg Normal 27.0-31.3 [facility] Comment on above: Performed By: #### C BCND #### [facility] [address] [place] [address] MCHC (RBC) [Mass/Vol] 33.0 % Normal 33.0-37.0 [facility] Comment on above: Performed By: #### C BCND #### [facility] [address] [place] [address] MCV (RBC) [Entitic vol] 92.9 fL Normal 82.0-100.0 [facility] Comment on above: Performed By: #### C BCND #### [facility] [address] [place] [address] Platelets (Bld) [#/Vol] 241 10*3/uL Normal 130-400 [facility] Comment on above: Performed By: #### C BCND #### [facility] [address] [place] [address] RBC (Bld) [#/Vol] 4.44 10*6/uL Normal 4.20-5.40 [facility] Comment on above: Performed By: #### C BCND #### [facility] [address] [place] [address] WBC (Bld) [#/Vol] 11.0 10*3/uL Critically high 4.8-10.8 [facility] Comment on above: Performed By: #### C BCND #### [facility] [address] [place] [address] COVID-19, NAAon 05-03-2020 Source Swab Anterior nares Normal [facility] Comment on above: Performed By: #### I RCOV ####[facility] [place] [place] [phone] Partial Thromboplastin Timeo n 05-03-2020 aPTT Coag (Bld) [Time] 31.3 s Normal 24.4-36.8 [facility] Comment on above: Performed By: #### P TT #### [facility] [address] [place] [address] Prothrombin Timeon 0 INR Coag (PPP) [Relative time] 0.9 {INR} Normal [facility] Comment on above: Performed By: #### P T #### [facility] [address] [place] [address] PT Coag (PPP) [Time] 11.9 s Low 12.3-14.9 [facility] Comment on above: Performed By: #### P T #### [facility] [address] [place] [address] Type and Screen Capture 3 sc rn cellon 05-03-2020 Type and Screen Capture 3 scrn cell PATIENT: JOSE Doss LOC: [facility] BILL# : [id number] : 1970 SEX: F ORDERED BY: TSEPHANIE Harrison ORDERED : 05/03/2020 14:14 COLLECTED: 05/03/2020 14:14 ORDER : [id number] RECEIVED : 05/03/2020 19:43 TEST NAME RESULT UNITS RANGES ABN FL ST ABOR[facility] Capture O POS F Antibody 3 Cell Scrn Captu NEG F Normal [facility] Comment on above: Performed By: #### T S3C #### [facility] [address] [place] [address] Established Visit (Orthopaed ic Surgery)on 04-26-2020 Established [...] biceps. No pain with resisted elbow flexion. Printer Machine strength 5/5 Elbow flexion 5/5. Shoulder abduction [...] Chiara Espinosa PA-C Department of Orthopaedic Surgery [facility] Dictation performed with the use of voice recognition software. Syntax and grammatical errors may exist. Active Problems Problems Shoulder pain (719.41) (B05.519) Signatures Electronically signed by : Chiara Espinosa PA-C; Apr 26 2020 3:56PM EST (Author) [facility] Initial Visit (Orthopaedic S urgery)on 04-17-2020 Initial Visit (Orthopaedic Surgery) Diagnoses/Problems Assessed Shoulder pain (719.41) (M25.519) Patient Discussion/Summary Patient has right shoulder pain of uncertain origin. Exam today is suggestive of subacromial origin of pain. MRI scan shows tendinopathy but not an obvious tear. I recommended having her MRI scans evaluated by the musculoskeletal radiologist at [facility] I will call the patient back with [...] her light touch sensation is grossly intact. Printer Machine strength is 5/5 elbow flexion 5/5 shoulder [...] Apr 17 2020 4:45PM EST (Author) Normal [facility] Vital Signs Date Time Vital Sign Value Performing Clinician Facility 02-13-2025 14:48-0400 Body height 162.6 cm Hazel Velásquez MD Work Phone: [facility] 02-13-2025 14:48-0400 Body mass index (BMI) [Ratio] 33.44 kg/m2 Hazel Velásquez MD Work Phone: [facility] 02-13-2025 14:48-0400 Body weight 88.36 kg Hazel Velásquez MD Work Phone: [facility] 02-13-2025 14:48-0400 Diastolic blood pressure 80 mm[Hg] Hazel Velásquez MD Work Phone: [facility] 02-13-2025 14:48-0400 Heart rate 85 /min Hazel Velásquez MD Work Phone: [facility] 02-13-2025 14:48-0400 SaO2% (BldA) [Mass fraction] 96 % Hazel Velásquez MD Work Phone: [facility] 02-13-2025 14:48-0400 Systolic blood pressure 122 mm[Hg] Hazel Velásquez MD Work Phone: [facility] 01-03-2025 15:54-0400 Body height 162.6 cm John Gauthier DPM Work Phone: [facility] 01-03-2025 15:54-0400 Body mass index (BMI) [Ratio] 34.16 kg/m2 John Gauthier DPM Work Phone: [facility] 01-03-2025 15:54-0400 Body weight 90.27 kg John Gauthier DPM Work Phone: [facility] 11-23-2024 10:50-0400 Body height 162.56 cm [facility] 11-23-2024 10:50-0400 Body mass index (BMI) [Ratio] 33.7 kg/m2 [facility] 11-23-2024 10:50-0400 Body weight 89.35 kg [facility] 11-23-2024 10:50-0400 Diastolic blood pressure 74 mm[Hg] [facility] 11-23-2024 10:50-0400 Heart rate 80 /min [facility] 11-23-2024 10:50-0400 Systolic blood pressure 108 mm[Hg] [facility] 11-07-2024 09:53-0400 Body height 162.6 cm Hazel Velásquez MD Work Phone: [facility] 11-07-2024 09:53-0400 Body mass index (BMI) [Ratio] 34.16 kg/m2 Hazel Velásquez MD Work Phone: [facility] 11-07-2024 09:53-0400 Body weight 90.27 kg Hazel Velásquez MD Work Phone: [facility] 11-07-2024 09:53-0400 Diastolic blood pressure 64 mm[Hg] Hazel Velásquez MD Work Phone: [facility] 11-07-2024 09:53-0400 Heart rate 91 /min Hazel Velásquez MD Work Phone: [facility] 11-07-2024 09:53-0400 SaO2% (BldA) [Mass fraction] 97 % Hazel Velásquez MD Work Phone: [facility] 11-07-2024 09:53-0400 Systolic blood pressure 118 mm[Hg] Hazel Velásquez MD Work Phone: [facility] 09-04-2024 14:03-0500 Body height 162.56 cm [facility] 09-04-2024 14:03-0500 Body mass index (BMI) [Ratio] 34.3 kg/m2 [facility] 09-04-2024 14:03-0500 Body weight 90.8 kg [facility] 08-21-2024 15:18-0500 Body height 162.6 cm John Gauthier DPM Work Phone: [facility] 08-21-2024 15:18-0500 Body mass index (BMI) [Ratio] 36.56 kg/m2 John Gauthier DPM Work Phone: [facility] 08-21-2024 15:18-0500 Body weight 96.62 kg John Gauthier DPM Work Phone: [facility] 08-08-2024 09:27-0500 Body height 162.6 cm Hazel Velásquez MD Work Phone: [facility] 08-08-2024 09:27-0500 Body mass index (BMI) [Ratio] 36.63 kg/m2 Hazel Velásquez MD Work Phone: [facility] 08-08-2024 09:27-0500 Body weight 96.8 kg Hazel Velásquez MD Work Phone: [facility] 08-08-2024 09:27-0500 Diastolic blood pressure 68 mm[Hg] Hazel Velásquez MD Work Phone: [facility] 08-08-2024 09:27-0500 Heart rate 93 /min Hazel Velásquez MD Work Phone: [facility] 08-08-2024 09:27-0500 SaO2% (BldA) [Mass fraction] 95 % Hazel Velásquez MD Work Phone: [facility] 08-08-2024 09:27-0500 Systolic blood pressure 112 mm[Hg] Hazel Velásquez MD Work Phone: [facility] 07-25-2024 10:00-0500 Body height 162.6 cm John Gauthier DPM Work Phone: [facility] 07-25-2024 10:00-0500 Body mass index (BMI) [Ratio] 37.25 kg/m2 John Gauthier DPM Work Phone: [facility] 07-25-2024 10:00-0500 Body weight 98.43 kg John Gauthier DPM Work Phone: [facility] 07-06-2024 11:23-0500 Body height 162.6 cm Hazel Velásquez MD Work Phone: [facility] 07-06-2024 11:23-0500 Body mass index (BMI) [Ratio] 37.28 kg/m2 Hazel Velásquez MD Work Phone: [facility] 07-06-2024 11:23-0500 Body weight 98.52 kg Hazel Velásquez MD Work Phone: [facility] 07-06-2024 11:23-0500 Diastolic blood pressure 82 mm[Hg] Hazel Velásquez MD Work Phone: [facility] 07-06-2024 11:23-0500 Heart rate 82 /min Hazel Velásquez MD Work Phone: [facility] 07-06-2024 11:23-0500 SaO2% (BldA) [Mass fraction] 96 % Hazel Velásquez MD Work Phone: [facility] 07-06-2024 11:23-0500 Systolic blood pressure 126 mm[Hg] Hazel Velásqeuz MD Work Phone: [facility] 06-09-2024 11:15-0500 Diastolic blood pressure 93 mm[Hg] Maximiliano You MD Work Phone: [facility] 06-09-2024 11:15-0500 Heart rate 90 /min Maximiliano You MD Work Phone: [facility] 06-09-2024 11:15-0500 Respiratory rate 20 /min Maximiliano You MD Work Phone: [facility] 06-09-2024 11:15-0500 SaO2% (BldA) [Mass fraction] 95 % Maximiliano You MD Work Phone: [facility] 06-09-2024 11:15-0500 Systolic blood pressure 151 mm[Hg] Maximiliano You MD Work Phone: [facility] 06-09-2024 10:45-0500 Body temperature 96.91 [degF] Maximiliano You MD Work Phone: [facility] 06-09-2024 09:48-0500 Body height 162.6 cm Maximiliano You MD Work Phone: [employer] 06-09-2024 09:48-0500 Body mass index (BMI) [Ratio] 37.25 kg/m2 Maximiliano You [facility] 06-09-2024 09:48-0500 Body weight 98.43 kg Maximiliano You MD Work Phone: [facility] [employer] [facility] 12-12-2021 10:43-0400 Body weight 97.52 kg Gayle Washington MD Work Phone: [facility] 12-12-2021 10:43-0400 Diastolic blood pressure 87 mm[Hg] Gayle Washington MD Work Phone: [facility] 12-12-2021 10:43-0400 Heart rate 88 /min Galye Washington MD Work Phone: [facility] 12-12-2021 10:43-0400 Systolic blood pressure 125 mm[Hg] Gayle Washington MD Work Phone: [facility] 10-14-2021 10:30-0400 Diastolic blood pressure 80 mm[Hg] Emmett Brunner Other [employer] Other 10-14-2021 10:30-0400 SaO2% (BldA) [Mass fraction] 98 % Emmett Brunner Other [employer] Other 10-14-2021 10:30-0400 Systolic blood pressure 130 mm[Hg] Emmett Brunner Other [employer] Other 07-01-2021 15:30-0500 Body weight 94.62 kg Letty Olson Other [employer] Other 07-01-2021 15:30-0500 Diastolic blood pressure 78 mm[Hg] Letty Olson Other [employer] Other 07-01-2021 15:30-0500 Respiratory rate 18 /min Letty Wesley Other [employer] Other 07-01-2021 15:30-0500 SaO2% (BldA) [Mass fraction] 98 % Letty Wesley Other [employer] Other 07-01-2021 15:30-0500 Systolic blood pressure 118 mm[Hg] Letty Wesley Other [employer] Other 06-18-2021 15:45-0500 Diastolic blood pressure 90 mm[Hg] Emmett Kannan Other [employer] Other 06-18-2021 15:45-0500 SaO2% (BldA) [Mass fraction] 97 % Emmett Brunner Other [employer] Other 06-18-2021 15:45-0500 Systolic blood pressure 122 mm[Hg] Emmettarmani Brunner Other [employer] Other 05-15-2021 17:30-0500 Body weight 92.53 kg Emmettarmani Brunner Other [employer] Other 05-15-2021 17:30-0500 Diastolic blood pressure 80 mm[Hg] Emmett Kannan Other [employer] Other 05-15-2021 17:30-0500 Systolic blood pressure 130 mm[Hg] Emmett Kannan Other [employer] Other 04-02-2021 14:30-0400 Body weight 92.63 kg Emmettarmani Brunner Other [employer] Other 04-02-2021 14:30-0400 Diastolic blood pressure 88 mm[Hg] Emmett Brunner Other [employer] Other 04-02-2021 14:30-0400 SaO2% (BldA) [Mass fraction] 98 % Emmett Brunner Other [employer] Other 04-02-2021 14:30-0400 Systolic blood pressure 140 mm[Hg] Emmett Brunner Other [employer] Other Encounters Encounter Date Encounter Type Care Provider Facility Start: 03-21-2025 End: 03-21-2025 Orders Only Hazel Velásquez MD Work Phone: [facility] Comment on above: Type 2 diabetes anne itus with unspecified complications (HCC) (Primary Dx) Start: 03-19-2025 End: 03-19-2025 ambulatory Rosibel Cotton MD Facility:[facility] Start: 02-19-2025 End: 02-19-2025 ambulatory Rosibel Cotton MD Facility:[facility] Start: 02-13-2025 End: 02-13-2025 ambulatory HAZEL VELÁSQUEZ Not Available Start: 02-13-2025 End: 02-13-2025 Office outpatient visit 25 minutes Hazel Velásquez MD Work Phone: [facility] Comment on above: Nicotine abuse (Prim steffanie Dx); Type 2 diabetes mellitus without complication, without long-term current use of insulin (HCC); Nausea and vomiting, unspecified vomiting type; Memory loss; Marijuana smoker Start: 02-13-2025 End: 02-13-2025 Brett Velásquez MD Work Phone: [facility] Start: 02-13-2025 End: 02-13-2025 Brett [employer] Velásquez MD Work Phone: [facility] Start: 02-13-2025 Patient encounter status Lisa Velásquez MD Work Phone: [facility] Start: 01-03-2025 End: 01-03-2025 Office outpatient visit 15 minutes John Gauthier DPM Work Phone: [facility] Comment on above: Onychomycosis (Prima ry Dx); Onychodystrophy; Corns and callosities; Diabetic polyneuropathy associated with type 2 diabetes mellitus (HCC); Ingrown toenail; Pain in both feet Start: 01-03-2025 End: 01-03-2025 ambulatory JOHN GAUTHIER Not Available Start: 01-03-2025 End: 01-03-2025 Bamboo flowsheet John Gauthier DPM Work Phone: [facility] Start: 01-03-2025 End: 01-03-2025 Bamboo flowsheet John Gauthier DPM Work Phone: [facility] Start: 12-04-2024 End: 12-04-2024 Follow-up encounter Hazel Vleásquez MD Work Phone: [facility] Start: 12-01-2024 End: 12-01-2024 Follow-up encounter Hazel Velásquez MD Work Phone: [facility] Start: 12-01-2024 End: 12-01-2024 ambulatory HAZEL VELÁSQUEZ Not Available Start: 11-23-2024 End: 11-23-2024 ambulatory [facility] Work Phone: Start: 11-23-2024 End: 11-23-2024 Patient encounter procedure [facility] Work Phone: Start: 11-18-2024 End: 11-18-2024 Refill Hazel Velásquez MD Work Phone: [facility] Comment on above: Type 2 diabetes anne itus without complication, without long- term current use of insulin Start: 11-08-2024 End: 11-08-2024 ambulatory [facility] Start: 11-07-2024 End: 11-07-2024 Bamboo flowsheet Hazel [...] End: 11-06-2024 ambulatory Rosibel Cotton MD Facility: [facility] Start: 10-17-2024 End: 10-17-2024 ambulatory [facility] Start: 09-27-2024 End: 09-27-2024 Bamboo flowsheet Lukas Luz RN [facility] Start: 09-27-2024 End: 09-27-2024 Bamboo flowsheet Lukas Luz RN [facility] Start: 09-27-2024 End: 09-27-2024 ambulatory LUKAS LUZ Not Available Start: 09-11-2024 End: 09-11-2024 Telephone encounter Hazel Velásquez MD Work Phone: [facility] Start: 09-04-2024 End: 09-04-2024 ambulatory [facility] Work Phone: Start: 09-04-2024 End: 09-04-2024 Patient encounter procedure [facility] Work Phone: Start: 08-24-2024 End: 08-24-2024 Bamboo flowsheet Lukas Luz RN [facility] Start: 08-24-2024 End: 08-24-2024 Bamboo flowsheet Lukas Alt RN [facility] Start: 08-24-2024 End: 08-24-2024 ambulatory LUKAS LUZ Not Available Start: 08-21-2024 End: 08-21-2024 ambulatory JOHN GAUTHIER Not Available Start: 08-21-2024 End: 08-21-2024 Office outpatient visit 15 minutes John Gauthier DPM Work Phone: [facility] Comment on above: Corns [...] essential HTN (CMS/HCC); 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); Gastroesophageal reflux [...] flowsheet John S Azamher DPM Work Phone: [facility] Start: 07-25-2024 End: 07-25-2024 Bamboo flowsheet John S Rusher DPM Work Phone: [facility] Start: 07-25-2024 End: 07-25-2024 Office outpatient visit 15 minutes John S Azamher DPM Work Phone: [facility] Comment on above: Diabetic polyneuropa thy associated with type 2 diabetes mellitus (CMS/HCC) (Primary Dx); Onychomycosis; Onychodystrophy; Pain in both feet Start: 07-25-2024 End: 07-25-2024 ambulatory JOHN S RUSHER Not Available Start: 07-21-2024 End: 07-25-2024 Telephone [...] (CMS/HCC) (Primary Dx); 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); Factor 5 [...] Start: 06-09-2024 End: 06-09-2024 ambulatory MAXIMILIANO [facility] Start: 06-09-2024 End: 06-09-2024 Subsequent hospital visit by physician Maximiliano You MD Work Phone: [facility] Comment on above: GERD (gastroesophage al reflux disease) Start: 06-05-2024 End: 06-05-2024 ambulatory Rosibel Cotton MD Facility: [facility] Start: 05-04-2024 End: 05-04-2024 ambulatory [facility] Start: 04-10-2024 End: 04-10-2024 ambulatory Rosibel Cottno MD Facility: [facility] Start: 02-03-2024 End: 02-03-2024 ambulatory NANCY LUDWIG [facility] Start: 01-12-2024 End: 01-12-2024 [facility] Start: 01-12-2024 Encounter for other [facility]procedural examination [facility] Start: 09-13-2023 End: 09-13-2023 Subsequent hospital visit by physician [facility] Comment on above: Flatulence, eructati on and gas pain Start: 09-13-2023 End: 09-13-2023 ambulatory NICOLE TELLES [facility] Start: 09-13-2023 Encounter for other preprocedural examination NICOLE TELLES [facility] Start: 04-07-2023 ambulatory Gayle Washington MD Work Phone: Rheumatology Comment on above: Fax info Start: 10-16-2022 Encounter for preprocedural cardiovascular examination DR ULISES TIM [facility] Start: 10-16-2022 Encounter for preprocedural laboratory examination DR ULISES TIM [facility] Start: 10-13-2022 End: 10-13-[address] ULISES TIM Facility:[facility] Start: 10-07-2022 End: 10-08-[address] ULISES TIM Facility:[facility] Start: 10-07-2022 End: 10-08-2022 Encounter for preprocedural cardiovascular examination DR ULISES TIM Facility:[facility] Start: 07-23-2022 End: 07-24-2022 ambulatory EBN MONROE . Facility:[facility] Start: 06-11-2022 End: 06-12-2022 [...] Pain Management Start: 12-12-2021 End: 12-13-2021 ambulatory [employer] Other Start: 12-12-2021 End: 12-12-2021 Patient encounter [...] 10-29-2021 Chart Update Cristobal miller Work Phone: [id number] Work Phone: Start: 10-14-2021 End: 10-14-2021 ambulatory Emmett Brunner Other [employer] Other Start: 10-14-2021 Patient encounter procedure Emmett Brunner [facility] Start: 09-23-2021 End: 09-23-2021 ambulatory Emmett Brunner Other [employer] Other Start: 09-23-2021 Telephone encounter Emmett Brunner [facility] Start: 07-01-2021 End: 07-01-2021 ambulatory Letty Olson Other [employer] Other Start: 07-01-2021 Office outpatient vi sit 25 minutes Letty Wesley [facility] Start: 06-26-2021 (Procedure) Short Emmett Brunner [facility] Start: 06-26-2021 End: 06-26-2021 ambulatory Emmett Brunner Other [employer] Other Start: 06-18-2021 End: 06-18-2021 ambulatory Emmett Brunner Other [employer] Other Start: 06-18-2021 Office outpatient vi sit 25 minutes Emmettarmani Brunner [facility] Start: 06-18-2021 Telephone encounter Emmett Brunner [facility] Start: 06-04-2021 End: 06-04-2021 Subsequent hospital visit by physician [facility] Comment on above: Chronic hip pain, bi lateral [M25.551, M25.552, G89.29] Start: 05-21-2021 (Procedure) Short Emmett Brunner [facility] Start: 05-21-2021 End: 05-21-2021 ambulatory Emmett Brunner Other [employer] Other Start: 05-15-2021 End: 05-15-2021 ambulatory Emmett Brunner Other [employer] Other Start: 05-15-2021 Office outpatient vi sit 25 minutes Emmett Kannan [facility] Start: 04-30-2021 (Procedure) Short Emmettarmani Brunner [facility] Start: 04-16-2021 (Procedure) Short Emmett Brunner [facility] Start: 04-02-2021 Office outpatient vi sit 25 minutes Emmett Kannan [facility] Start: 02-21-2021 Office outpatient vi sit 15 minutes Cristobal Tomas Work Phone: [id number] Work Phone: Start: 06-25-2020 End: 06-27-2020 Evaluation and management of inpatient FEMI DUARTE [facility] Start: 06-25-2020 End: 06-28-2020 Patient encounter procedure CRISTOBAL TOMAS [facility] Start: 06-18-2020 End: 06-23-2020 Patient encounter procedure CRISTOBAL TOMAS [facility] Start: 05-09-2020 End: 05-09-2020 Patient encounter procedure FEMI DUARTE [facility] Procedures Date Procedure Procedure Detail Performing Clinician Start: 02-13-2025 Hemoglobin glycosylated a1c Hazel hernandez MD Work Phone: Start: 12-01-2024 Mammography Hazel Velásquez MD Work Phone: Start: 11-08-2024 Hemoglobin glycosylated a1c Hazel hernandez MD Work Phone: Start: 06-09-2024 Esophagogastroduodenoscopy Maximiliano salinas MD Work Phone: Start: 09-13-2023 Assay of gammaglobulin iga igd igg igm each Nicole Telles 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 Start: 03-16-2026 Screening for malignant neoplasm of colon [facility] Start: 12-01-2025 Screening for malignant neoplasm of breast Mammogram [facility] Start: 11-07-2025 Medicare Annual Wellness (AWV) Medicare Annual Wellness (AWV ) [facility] Start: 08-08-2025 Urine screening for protein Diabetes: Urine Protein Screening [facility] Start: 05-17-2025 End: 05-17-2025 Patient encounter procedure 05/17/2025 10:20 AM EST Of fice Visit [facility] [address] [place] [address] Hazel Velásquez MD [address] [facility] [place] [address] [facility] Start: 05-16-2025 Hemoglobin A1c measurement Diabetes: Hemoglobin A1C [facility] Start: 04-06-2025 End: 04-06-2025 Patient encounter procedure [facility] Start: 03-05-2025 Influenza vaccination [facility] Start: 02-08-2025 Hemoglobin A1c measurement Diabetes: Hemoglobin A1C [facility] Start: 02-08-2025 End: 02-08-2025 Patient encounter procedure 02/08/2025 10:00 AM EDT Of fice Visit [facility] [address] [place] [phone] Hazel Velásquez MD [address] [place] [address] [facility] Start: 01-03-2025 End: 01-03-2025 Patient encounter procedure 01/03/2025 4:00 PM EDT Off ice Visit [facility] [address] [place] [id number] John Gauthier, DPChristy [address] [place] [address] Arrived [facility] Comment on above: Arrived Start: 12-12-2024 DIABETES SCREEN DIABETES SCREEN [facility] Start: 12-12-2024 Diabetes Screening Diabetes Screening [facility] Start: 12-01-2024 End: 12-01-2024 Professional / ancillary services management [facility] Start: 11-07-2024 End: 11-07-2025 CT Chest for screening WO contrast CT lung screening low dose Imaging Routine Nicotine abuse Nicotine dependence, cigarettes, in remission Expected: 11/07/2024, Expires: 11/07/2025 [facility] Comment on above: Expected: 11/07/2024, Expires: Start: 11-07-2024 End: 11-07-2025 US Soft Tissue Palpable Mass US Soft Tissue Palpable M ass Imaging Routine Cyst, dermoid, arm, right Expected: 11/07/2024, Expires: 11/07/2025 [facility] Work Phone: Comment on above: Expected: 11/07/2024, Expires: Start: 11-07-2024 End: 11-07-2024 Patient encounter procedure [facility] Comment on above: Arrived Start: 11-01-2024 Hemoglobin A1c measurement Diabetes: Hemoglobin A1C [facility] Start: 10-24-2024 End: 10-24-2024 Patient encounter procedure 10/24/2024 10:15 AM EDT Procedure Visit [facility] [address] [place] [phone] John Gauthier, DPM [address] [place], [place] [id number] [facility] Start: 09-27-2024 End: 09-27-2024 Clinical Support 09/27/2024 10:30 AM EDT Clinical Support [facility] [address] [place] [facility] [place] [phone] Lukas Luz, ROBERTO Arrived [facility] Comment on above: Arrived Start: 09-26-2024 End: 09-26-2024 Clinical Support 09/26/2024 11:30 AM EDT Clinical Support [facility] [address] [facility] [place] [address] Lukas Luz, RN [facility] Start: 08-24-2024 End: 08-24-2024 Clinical Support [facility] Comment on above: Arrived Start: 08-17-2024 Hemoglobin A1c measurement Diabetes: Hemoglobin A1C [facility] Start: 08-08-2024 End: 08-08-2025 Microalbumin/Creatinine panel in random Urine Microalbumin / creatinine, urine ratio Lab Routine Poorly controlled type 2 diabetes mellitus with neuropathy ([facility]/HCC) Expected: 08/08/2024 (Approximate), Expires: 08/08/2025 [facility] Work Phone: Comment on above: Expected: 08/08/2024 (Approximate), Expi res: 08/08/2025 Start: 08-08-2024 End: 08-08-2024 Patient encounter procedure [facility] Comment on above: Arrived Start: 07-26-2024 End: 07-26-2024 Clinical Support [facility] Comment on above: Type 2 diabetes mellitus without complic ation, without long-term current use of insulin ([facility]) (Primary Dx); Bipolar 1 disorder ([facility]/HCC) Start: 07-25-2024 End: 07-25-2024 Patient encounter procedure [facility] Comment on above: Arrived Start: 07-06-2024 End: 09-03-2025 DBT Breast - bilateral screening Bilateral screening mammogram with tomosynthesis Imaging Routine Encounter for screening mammogram for malignant neoplasm of breast Expected: 07/06/2024, Expires: 09/03/2025 [facility] Work Phone: Comment on above: Expected: 07/06/2024, Expires: Start: 07-06-2024 End: 07-06-2024 Patient encounter procedure 07/06/2024 11:30 AM EST [facility] Visit [facility] [address] [place] [phone] Hazel Velásquez MD [address] [facility], [place] [id number] Arrived [facility] FNR Comment on above: Arrived Start: 07-01-2024 Screening for malignant neoplasm of breast Breast cancer screen [facility] Start: 06-09-2024 End: 06-09-2024 Esophagogastroduodenoscopy transoral diagnostic ESOPHAGOGASTRODUODENOSCOPY GERD (gastroesophageal reflux disease) 06/09/2024 10:28 AM EST [facility] Start: 03-05-2024 COVID-19 Vaccine ( season) COVID-19 Vaccine ( season) [facility] Start: 03-05-2024 Influenza vaccination Influenza Vaccine (#1) [facility] Start: 02-12-2024 Medicare Annual Wellness (AWV) Medicare Annual Wellness (AWV ) [facility] Start: 02-03-2024 Influenza vaccination [facility] Start: 02-03-2024 End: 02-03-2024 Admission to same day surgery center 02/03/2024 8:45 AM EDT - 02/03/2024 9:05 AM EDT Surgery [facility] OR [address] [place] [address] Nancy Ludwig MD [address] [place] [id number] ESOPHAGOGASTRODUODENOSCOPY [facility] OR Comment on above: ESOPHAGOGASTRODUODENOSCOPY Start: 02-03-2024 End: 02-03-2024 Esophagogastroduodenoscopy transoral diagnostic ESOPHAGOGASTRODUODENOSCOPY Chronic GERD 02/03/2024 8:45 AM EDT [facility] Start: 02-03-2024 Subsequent hospital visit by physician 02/03/2024 8:45 AM EDT Hospital Encounter [facility] OR [address] [place], [place] [id number] Nancy Ludwig MD [address] [place] [id number] [facility] OR Start: 07-05-2023 Annual Wellness Visit (Medicare Advantage) Annual Wellness Visit (Medicare Advantage) [facility] Start: 07-01-2023 Screening for malignant neoplasm of breast Mammogram [facility] Start: 06-09-2023 Lipid 1996 panel - Serum or Plasma Lipid Screening [facility] Start: 06-09-2023 LIPID SCREEN LIPID SCREEN [facility] Start: 03-05-2023 COVID-19 Vaccine ( season) COVID-19 Vaccine ( season) [facility] Start: 03-05-2023 Influenza vaccination [facility] Start: 02-02-2023 Influenza vaccination Flu vaccine (#1) [facility] Start: 07-05-2022 DEPRESSION ASSESSMENT DEPRESSION ASSESSMENT [facility] Start: 03-19-2022 End: 12-17-2022 25-hydroxyvitamin D3 [Mass/volume] in Serum or Plasma VITAMIN D 25 HYDROXY Lab Routine Vitamin D deficiency Expected: 03/19/2022 (Approximate), Expires: 12/17/2022 [facility] Work Phone: Comment on above: Expected: 03/19/2022 (Approximate), Expi res: 12/17/2022 Start: 03-05-2022 Influenza vaccination [facility] Start: 08-21-2021 COVID-19 VACCINE (2 - Booster for Barbara series) COVID-19 VACCINE (2 - Booster for Barbara series) [facility] Start: 07-05-2021 DEPRESSION ASSESSMENT DEPRESSION ASSESSMENT [facility] Start: 06-17-2021 Mammography [facility] Start: 2018 Shingles vaccine (1 of 2) Shingles vaccine (1 of 2) [facility] Start: 2018 SHINGRIX VACCINE (1 of 2) SHINGRIX VACCINE (1 of 2) [facility] Start: 2013 COLOGUARD (FIT-DNA) COLOGUARD (FIT-DNA) [facility] Start: 2013 Colonoscopy COLONOSCOPY [facility] Start: 2013 COLORECTAL CANCER SCREENING COLORECTAL CANCER SCREENING [facility] Start: [address] COLONOGRAPHY [facility] Start: 2013 FECAL OCCULT BLOOD FECAL OCCULT BLOOD [facility] Start: 2013 Screening for malignant neoplasm of colon [facility] Start: 2013 SIGMOIDOSCOPY SIGMOIDOSCOPY [facility] Start: 2003 Diabetes screen Diabetes screen [facility] Start: 1998 HPV TESTING HPV TESTING [facility] Start: 1989 PAP TESTING PAP TESTING [facility] Start: 1987 DTaP/Tdap/Td vaccine (1 - Tdap) DTaP/Tdap/Td vaccine (1 - Tdap) [facility] Start: 1987 Hepatitis B vaccine (1 of 3 - 19+ 3-dose series) Hepatitis B vaccine (1 of 3 - 19+ 3-dose series) [facility] Start: 1987 Urine microalbumin profile [facility] Start: 1987 Urine screening for protein Diabetes: Urine Protein Screening [facility] Start: 1986 Hepatitis C screening Hepatitis C screen [facility] Start: 1986 HIV SCREENING HIV SCREENING [facility] Start: 1983 HIV screening HIV screen [facility] Start: 1980 Adult depression screening assessment DEPRESSION SCREENING [facility] Start: 1980 Depression Screen Depression Screen [facility] Start: 1978 Glaucoma screening Diabetes: Retinopathy Screening [facility] Start: 1978 Lipid panel Lipids [facility] Start: 1974 PNEUMOCOCCAL (1 - PCV) PNEUMOCOCCAL (1 - PCV) [facility] Start: 1974 Pneumococcal 0-64 years Vaccine (1 - PCV) Pneumococcal 0-64 years Vaccine (1 - PCV) [facility] Start: 1974 Pneumococcal 0-64 years Vaccine (1 of 2 - PCV) Pneumococcal 0-64 years Vaccine (1 of 2 - PCV) [facility] Start: 1974 Pneumococcal vaccination Pneumococcal Vaccine (1 - PCV) [facility] Start: 1968 HEPATITIS B (1 of 3 - 3-dose series) HEPATITIS B (1 of 3 - 3-dose series) [facility] Start: 1968 Hepatitis B Vaccine (1 of 3 - 3-dose series) Hepatitis B Vaccine (1 of 3 - 3-dose series) [facility] Start: 1968 Screening for malignant neoplasm of colon [facility] Celiac Disease Panel Celiac Dise ase Panel Lab Routine Flatulence, eructation and gas pain 09/13/2023 4:20 PM EDT [facility] End: 09-13-2023 H. pylori antigen [facility] [employer] Comment on above: Once for 1 Occurrences starting 09/13/19 24 until 09/13/2023 End: 09-13-2023 H. Pylori Antigen, Stool H. Pylori Antigen, Stool Lab Routine Flatulence, eructation and gas pain 1 Occurrences starting 09/13/2023 until 09/13/[address] [facility] [employer] Work Phone: Comment on above: 1 Occurrences starting 09/13/2023 until 09/13/2023 End: 06-09-2024 INITIATE PACU OXYGEN THERAPY PROTOCOL Initiate PACU Oxygen Therapy Protocol Respiratory Care Routine Continuous until discontinued starting 06/09/2024 [employer] Comment on above: Continuous until discontinued starting 1 08/10/2023 Pathology study Surgical Patholo gy Lab Routine GERD (gastroesophageal reflux disease) Release Upon Ordering for 1 Occurrences starting 06/09/2024 [facility] [employer] Comment on above: Release Upon Ordering for 1 Occurrences starting 06/09/2024 Immunizations Immunization Date Immunization Notes Care Provider [facility] 04-06-2019 influenza, injectabl e, quadrivalent, preservative free Cristobal Tomas Work Phone: [id number] Work Phone: 04-06-2019 influenza virus vaccine, unspecified formulation Gayle Washington MD Work Phone: [facility] 05-15-2016 seasonal influenza, intradermal, preservative free Cristobal Tomas Work Phone: [facility] [employer] Payers Date Payer Category Payer Medicare [id number] 2024 Medicare (Managed Care) [employer] [place] [employer] .[id number] 2024 Unknown [id number] 2024 Medicare [id number] .[id number] 2021 Unknown 2021 Unknown CLAYTON ARNOLD [place] X [id number] 2021-Present [phone] [address] [address] [place] [address] [facility] [id number] .[id number] 2020 Private Health Insurance [id number]. 3 .[id number] 2018 Unknown [id number] 2.16.840.1.085410.19 2017 Unknown [id number] 1968 Unknown [id number] 2.16.840.1.862831.3.579.2.182 1968 Unknown [id number] 2.16.840.1.793791.3.579.2.182 1968 Unknown [id number] 2.16.840.1.231388.3.579.2.182 1968 Unknown [id number] 2.16.840.1.010233.3.579.2.182 1968 Unknown [id number] 2.16.840.1.587451.3.579.2.182 1968 Unknown [id number] 2.16.840.1.819567.3.579.2.593 1968 Unknown [id number] 2.16.840.1.722273.3.579.2.593 1968 Unknown [id number] 2.16.840.1.155800.3.579.2.593 1968 Unknown [id number] 2.16.840.1.115470.3.579.2.593 1968 Unknown [id number] 2.16.840.1.024088.3.579.2.593 1968 Unknown [id number] 2.16.840.1.520127.3.579.2.593 1968 Unknown [id number] 2.16.840.1.458250.3.579.2.593 1968 Unknown [id number] 2.16.840.1.572441.3.579.2.593 1968 Unknown [id number] 2.16.840.1.870855.3.579.2.593 1968 Unknown [id number] 2.16.840.1.221276.3.579.2.593 1968 Unknown [id number] 2.16.840.1.594228.3.579.2.593 1968 Unknown [id number] 2.16.840.1.720913.3.579.2.173 1968 Unknown [id number] 2.16.840.1.949883.3.579.2.173 1968 Unknown [id number] 2.16.840.1.888490.3.579.2.173 1968 Unknown [id number] 2.16.840.1.932739.3.579.2.173 1968 Unknown [id number] 2.16.840.1.251456.3.579.2.173 1968 Unknown [id number] 2.16.840.1.594534.3.579.2.125 9 1968 Unknown [id number] 2.16.840.1.964687.3.579.2.125 9 1968 Unknown [id number] 2.16.840.1.878972.3.579.2.125 9 1968 Unknown [id number] 2.16.840.1.760247.3.579.2.125 9 1968 Unknown [id number] 2.16.840.1.518687.3.579.2.125 9 1968 Unknown [id number] 2.16.840.1.592825.3.579.2.125 9 1968 Unknown [id number] 2.16.840.1.974848.3.579.2.125 9 1968 Unknown [id number] 2.16.840.1.935574.3.579.2.125 9 1968 Unknown [id number] 2.16.840.1.561377.3.579.2.125 9 1968 Unknown [id number] 2.16.840.1.545953.3.579.2.125 9 1968 Unknown [id number] 2.16.840.1.624987.3.579.2.125 9 1968 Unknown [id number] 2.16.840.1.394906.3.579.2.125 9 1968 Unknown [id number] 2.16.840.1.737162.3.579.2.125 9 1968 Unknown [id number] 2.16.840.1.715178.3.579.2.196 1968 Unknown [id number] 2.16.840.1.578940.3.579.2.196 1968 Unknown [id number] 2.16.840.1.044159.3.579.2.196 1968 Unknown [id number] 2.16.840.1.770628.3.579.2.196 1968 Unknown [id number] 2.16.840.1.057190.3.579.2.196 1968 Unknown [id number] 2.16.840.1.336711.3.579.2.196 Unknown Regular Auto/Medical [id number] Unknown Regular Auto/Liability [id number] 5 [id number] Social History Date Type Detail Facility Start: 07-05-1984 End: 07-06-2024 Tobacco smoking status IDIS Smokes tobacco daily [facility] Start: 07-05-1984 History of tobacco use Cigarette Smoker [facility] Start: 06-04-2021 End: 11-07-2024 Cigarettes smoked current (pack per day) - Reported 1 [facility] Start: 06-04-2021 End: 09-08-2023 Tobacco use and exposure Smokeless tobacco non-user [facility] Start: 12-12-2021 End: 06-09-2024 Alcohol intake Current drinker of alcohol (finding) [facility] Start: 06-04-2021 History SDOH Alcohol Comment rarely. [facility] Start: 1970 Sex Assigned At Not on file [facility] Start: 11-29-2021 End: 12-09-2021 Exposure to SARS-CoV-2 (event) Unable to assess [facility] Start: 06-05-2021 End: 11-07-2024 Sex Assigned At [employer] Other Start: 05-05-2021 End: 06-04-2021 Exposure to SARS-CoV-2 (event) Not sure [facility] National Score (1-100), lower number is lower risk 95 [facility] (I/We) worried whether (my/our) food would run out before (I/we) got money to buy more. Never true Tucker Blair Start: 09-08-2023 Tobacco Comment intermittently since 15 [employer] Start: 05-03-2020 Alcohol Comment hardly ever Tucker Blair Start: 10-29-2023 End: 02-13-2025 Alcoholic beverage intake [...] 10-28-2023 Alcohol Comment Caffine: 2 cups daily [facility] Start: 1970 Sex assigned at Female [facility] Start: 09-16-2022 Gender identity Identifies as female gender (finding) [facility] Start: 09-04-2024 End: 11-07-2024 Tobacco smoking status NHIS Ex-smoker (finding) [facility] Start: 09-04-2024 End: 11-23-2024 Sex Female (finding) [facility] Start: 07-05-1984 History of tobacco use Current smoker [facility] Medical Equipment Procedure Code Equipment Code Equipment Original Text Equipment Identifier Dates Impl Alena Spine R michael Ti35 Mm 55 Mm [id number] Start: 06-25-2020 Graft Spnl [id number] Corticocancellous Lord Triad - [id number] Start: 05-09-2020 Plate Spnl L28mm Antr Cerv 1 Lev Translational Effort Acp [id number] Start: 05-09-2020 Screw Spnl L13mm Dia4mm Ant Cerv [facility] Ang Compr Effort Acp [id number] Start: 05-09-2020 Connector Spnl C rss Lo Prof Adj Reline-O 5.5 X 45-65 Mm [id number] Start: 06-25-2020 Screw Spnl Dia5. 5mm Opn Tulip Roselyn Reline [id number] Start: 06-25-2020 Graft Bne Sub 30 cc 1.7-10mm Canc Chip Morselized Frz Dry - [id number] Start: 06-25-2020 Graft Bne Sub 5m l Mtrx Cellular Osteocel + - [id number] Start: 06-25-2020 Spacer Spnl L W1 [id number] 4deg Post Lum Intbdy Fus Lord [id number] Start: 06-25-2020 Screw Spnl L50mm Dia7.5mm Post Thoracolumbosacral Polyax 2s [id number] Start: 06-25-2020 Screw Spnl L55mm Od6mm 2s Polyax Reline O [id number] Start: 06-25-2020 Alena Spnl Lordtc 5.5x40 Mm Ti Reline-O [id number] Start: 06-25-2020 Clip Endoscp 235 cm Resol 360 Order Uom Is Each - [id number] Start: 02-03-2024 Functional Status Date Assessment Result Facility 11-07-2024 Patient Health Quest ionnaire 2 item (PHQ-2) [Reported] [facility] 11-07-2024 How difficult have t hese problems made it for you to do your work, take care of things at home, or get along with other people? Not difficult at all 11/07/2024 10:00 AM EDT Lesley Telles MA Not difficult at all [facility] Clinical Notes 04-02-2021 to 02-13-2025 Hazel Velásquez MD - 02/13/2025 2:40 PM Jessica Velásquez MD - 02/13/2025 2:40 PM Hanane Gauthier DPM - 01/03/2025 4:00 PM Jessica Velásquez MD - 11/07/2024 10:00 AM EDT [...] long-term current use of insulin ([facility]) Orders: POCT Glycated hemoglobin, total [...] for memory issues. documented in this encounter [facility] 01-03-2025 History of Present illness Narrative Images from the original note were not included. Subjective Patient ID: Pretty Garcia is a 54 y.o. female who presents for DM Foot Care (Pretty Garcia is a 54 y.o. female. Diabetic nail care. Dr. Velásuqez 12/04/2024 BS 162 A1C 9.3. SS 7.5). [...] 50 MCG (1999 UT) capsule, Take by mouth., Disp: , [...] Timmis OVARIAN CYST REMOVAL 1987 -Dr. Chawla MA FASCIOTOMY FOOT&/TOE 1997 plantar MA KNEE SCOPE,DIAGNOSTIC Right 12/03/[address] HARRINGTON MA LAP,CHOLECYSTECTOMY 1999 ROTATOR CUFF REPAIR 06/05/2019 resection [...] utilizing a nail nipper and electric bur hob grinder without incident. A sterile #15 blade [...] John Gauthier DPM documented in this encounter [facility] 11-08-2024 Note Patient here for res ults from 7 monitor. Patient states she still has the ups and downs of her heart. Patient states when her heart races or slows down she becomes symptomatic, with symptoms of dizziness and lightheaded. Patient states her sister was recently diagnosed with POTS. Review of Systems Cardiovascular: Positive for irregular heartbeat. Neurological: Positive for dizziness and light-headedness. [facility] 11-08-2024 Note Cardiovascular Medic [facility] SUBJECTIVE Chief Complaint Patient presents [...] Unstable angina (CMS/HCC) Coronary artery disease involving [place] coronary artery of [place] heart without angina pectoris Degenerative joint disease [...] Vitamin D defi (more content not included)... [facility] 11-07-2024 History of Present illness Narrative Images from the original note were not included. Lexi Garcia is a 54 y.o. female presents with chief complaint of mwv patient has been struggling with her STM the past couple of years. Family eye care in [place]. HPI: Over the past 2 weeks, how [...] Yes Vision Screening: Yes, patient sees regular supervisor pipeline/international logistics analyst Hearing Screening: Not done Cognitive Screening Self Assessment: No overt cognitive deficiency is apparent by direct observation Three Word Registration: Percy Aguilera, Picture Clock Drawing: Normal Clock - 2 [...] has had a recent eye examination at [facility], where she was informed that her [...] screening low dose documented in this encounter [facility] 10-17-2024 Note Cardiovascular Medic [facility] SUBJECTIVE Chief Complaint Patient presents with [...] Unstable angina (CMS/HCC) Coronary artery disease involving [place] coronary artery of [place] heart without angina pectoris Degenerative joint disease [...] 01/03/1994 Quit da (more content not included)... [facility] 10-17-2024 Note Patient is here for her [...] breath. Neurological: Positive for dizziness and light-headedness. [facility] 09-11-2024 Telephone encounter Note Pt called-she states she was supposed to let us know how the Ozempic went, she states it went well. She also scheduled an appt with Lukas. [facility] 09-11-2024 Miscellaneous Notes Pt called-she states she was supposed to let us know how the Ozempic went, she states it went well. She also scheduled an appt with Lukas. documented in this encounter [facility] 09-04-2024 Evaluation note Diagnosis Onset Date Resolution Dyspepsia acute September 04 1:55pm GERD (gastroesophageal reflux disease) acute September 04, 2024 1:55pm GERD (gastroesophageal reflux disease) acute November 23, 2024 1 0:43am [facility] Work Phone: 1(556) 593-715102-17-2025 History of Present illness Narrative* John Gauthier [...] Timmis OVARIAN CYST REMOVAL 1987 -Dr. Chawla MA FASCIOTOMY FOOT&/TOE 1998 plantar MA KNEE SCOPE,DIAGNOSTIC Right 12/03/[address] HARRINGTNO MA LAP,CHOLECYSTECTOMY 2000 ROTATOR CUFF REPAIR 06/05/2019 resection distal clavical, acromioplasty/bondra TONSILLECTOMY TOTAL VAGINAL HYSTERECTOMY 03/2018 BSO, suspension/repair/Croak TUBAL LIGATION 2009 Dr. Chawla TYMPANOPLASTY 1995 NEC Family History Family History Problem Relation [...] understanding. John Gauthier DPM documented in this encounter[facility] [id number] History of Present illness Narrative* Hazel Velásquez [...] planning to schedule an appointment with her supervisor pipeline due to changes in her vision. She [...] She is under the care of a legal analyst at [facility]. She has been compliant with her [...] GERD symptoms. 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 She had a herpes outbreak on her [...] She is currently underthe care of a legal analyst at [facility]. 4. Cholesterol Management. Her LDL cholesterol [...] Mixed hyperlipidemia (CMS/HCC) 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) Herpes infection Other Visit Diagnoses Poorly controlled type 2 diabetes mellitus with neuropathy (CMS/HCC) - Primary Relevant Orders Microalbumin / creatinine, urine ratio Morbid (severe) obesity due to excess calories (CMS/HCC) Body mass index (BMI) 38.0-38.9, adult Acute non-recurrent frontal sinusitis documented in this encounterJohn [facility]. [facility] [id number] History of Present illness Narrative* John Gauthier, DPM - 07/25/2024 10:00 AM EST [...] Timmis OVARIAN CYST REMOVAL 1987 -Dr. Chawla MA FASCIOTOMY FOOT&/TOE 1997 plantar MA KNEE SCOPE,DIAGNOSTIC Right 12/03/[address] HARRINGTON MA LAP,CHOLECYSTECTOMY 1999 ROTATOR CUFF REPAIR 06/05/2019 resection [...] utilizing a nail nipper and electric bur hob grinder without incident. We discussed phenol matricectomy [...] understanding. John Gauthier DPM documented in this [facility]01-17-2025 Telephone encounter Note* Telephone Encounter - Sherly Ansari - 07/21/2024 11:49 AM EST 20% CO PAY WITH TEN 1 HR VISITS FIRST YEAR AND TWO 1 HR VISITS SUBSEQUENT YEARS [facility] [id number] Miscellaneous Notes* Telephone Encounter - Sherly Ansari - 07/21/2024 11:49 AM EST 20% CO PAY WITH TEN 1 HR VISITS FIRST YEAR AND TWO 1 HR VISITS SUBSEQUENT YEARS documented in this [facility]01-02-2025 History of Present illness Narrative* Hazel Velásquez [...] She had an A1c done at her legal analyst and number was 9.3. She has hypertension. She is on amlodipine. She has coronary artery disease. She has not had any stents or heart attacks. She had a heart catheterization, which came back with coronary artery disease. She has high cholesterol. She is on Zetia and Lipitor. She is on Eliquis, a blood thinner. She started going to a drop forge operator in [facility] because she has factor V Leiden. The drop forge operator thought since she was getting older that [...] to twice daily. A referral to a bmet will be made for further education and [...] Mixed hyperlipidemia (CMS/HCC) 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) Other Visit Diagnoses Type 2 diabetes mellitus without complication, without long-term current use of insulin (CMS/HCC) Relevant Medications metFORMIN (Glucophage) 500 MG tablet Encounter for screening mammogram for malignant neoplasm of breast Relevant Orders Bilateral screening mammogram with tomosynthesis documented in this encounterJohn [facility]. [facility] [id number] History of Present illness Narrative* Erika Oconnor [...] Patient has stopped her eliquis per her legal analyst, Dr Nikko mitchell, who also provided cardiac [...] PAT [facility]. [facility]* Discharge Instructions* Maximiliano [...] one drug, even if it is an wvsr-hqy-lrvhzlr medication, herb, or dietary supplement, be sure [...] call 911 immediately. [facility] SUBJECTIVE Lexi Garcia is a 54 [...] Unstable angina (CMS/HCC) Coronary artery disease involving [place] coronary artery of [place] heart without angina pectoris Degenerative joint disease [...] in 2019 Chronic pain disorder Clotting disorder ([facility]) Depression Factor V Leiden ([facility]) Fibromyalgia, primary [...] needed in the morni (more content not included)...[facility] 04-07-2023 Miscellaneous Notes* Telephone Encounter - Gayle [...] faxed with confirmation. documented in this encounterOhiohealth [facility]ide [facility]04-11-2023 NoteOPERATIVE NOTE OPERATION DATE: 10/13/2022 PRIMARY [...] left cheek was prepped with Betadine. A Daggett tip Bovie was then used to make [...] the recovery room in good condition. [facility] [id number] NoteEXAM: XR CHEST 2 V HISTORY: Pre-surgery evaluation COMPARISON: None. TECHNIQUE: PA and lateral views of the chest. FINDINGS: The cardiomediastinal silhouette is normal. No focal consolidation is identified. There is no pneumothorax. No pleural effusion is noted. The osseous structures are intact. IMPRESSION: No acute cardiopulmonary process. Electronically authenticated by: JOSIAH WILKS Date: 2022-10-07 11:27[facility] [id number] NoteCONSULTATION CONSULTATION DATE: 07/23/2022 HISTORY OF PRESENT [...] injections. Patient does agree with this plan.[facility] 06-11-2022 NoteCONSULTATION CONSULTATION DATE: 06/11/2022 HISTORY [...] q.h.s. 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 Prescription(s) as above. Please process accordingly. Gayle Washington MD * Telephone Encounter - Marlee Joshi MA - 05/18/2022 12:37 PM EST [employer] message sent to patient reminding her to [...] Lab Orders Expected Expires Ordered HLA-B27 PCR [[id number]] 06/19/21 06/18/22 06/18/21 Auth. provider: Gayle Washington MD Assoc. diagnoses: Elevated sedimentation rate VITAMIN D 25 HYDROXY [SQVITD] 03/19/22 12/17/22 12/17/21 Auth. provider: Gayle Washington MD Assoc. diagnoses: Vitamin D deficiency documented in this encounterOhiohealth Riverside [facility] Hospital10-13-2022 NoteCONSULTATION PROCEDURE DATE: 04/16/2022 The patient [...] at the clinic in three months' time.[facility] [id number] NoteCONSULTATION CONSULTATION DATE: 04/09/2022 HISTORY OF PRESENT [...] return to the clinic for her injection.[facility] [id number] NoteCONSULTATION CONSULTATION DATE: 01/01/2022 This is a pleasant 51-year-old female returning to the clinic status post #2 bilateral MBB on C3, C4 and C5 that afforded her 80% relief for 5 days. She was recently at her gym instructor's and was diagnosed with fibromyalgia and she [...] and Approved by: BEN MONROE . 01/08/2022 10:22:00[facility]06-[facility] Miscellaneous Notes* Telephone Encounter - Kamryn [...] to My Chart if tests completed at [facility]: Mildly low vitamin D- increase over [...] superior labral tear; documented in this encounterOhiohealth Riverside [facility] Hospital06-10-2022 NoteHNO ID: [id number] Author: Gayle Washington MD Service: ? Author [...] improved with mobic, see ortho/pain clinic for intermission coordinator pain recommendations/injections, prn acetaminophen, start prn heat/ice/otc [...] yes Dactylitis: no H/o precedent/frequent infection(s): no Enthesopathy/[place]'s/heel/plantar tenderness: as above Skin thickening, psoriasis, photosensitivity, purpura: no Nail changes: ridges/ripples Alpecia, patchy: no Eye inflammation: glasses, R retinal hole SICCA: dry eyes Oral/nasal/genital ulcers: no GI problems-diarrhea/bleeding/IBD/Gluten intolerence/Dysphagia: gerd Raynaud's phenomenon/digital ulcers: no Organ inv-Serositis: no Lung disease/ILD: no Myopathy/proximal muscle weakness: no Abnormal Urine or urethritis: no Renal/liver disease: no PHOTOGRAPHY ASSISTANT/PNS/sz/cva/cancer disease: no HEME-Cytopenias/LAD/Clots: no Fevers: no Fatigue: [...] PAST MEDICAL HISTORY: PMH (more content not included)...[facility] History of Present illness Narrative* Gayle Washington [...] improved with mobic, see ortho/pain clinic for intermission coordinator pain recommendations/injections, prn acetaminophen, start prn heat/ice/otc [...] yes Dactylitis: no H/o precedent/frequent infection(s): no Enthesopathy/[place]'s/heel/plantar tenderness: as above Skin thickening, psoriasis, photosensitivity, purpura: no Nail changes: ridges/ripples Alpecia, patchy: no Eye inflammation: glasses, R retinal hole SICCA: dry eyes Oral/nasal/genital ulcers: no GI problems-diarrhea/bleeding/IBD/Gluten intolerence/Dysphagia: gerd Raynaud's phenomenon/digital ulcers: no Organ inv-Serositis: no Lung disease/ILD: no Myopathy/proximal muscle weakness: no Abnormal Urine or urethritis: no Renal/liver disease: no PHOTOGRAPHY ASSISTANT/PNS/sz/cva/cancer disease: no HEME-Cytopenias/LAD/Clots: no Fevers: no Fatigue: [...] rest of cb, cmp, uric acid 3.1, [id number];negative rf<10, ccp<15, flakita ifa, hla b27, hepatitis [...] second MCP joint on the right. [facility] 11/12/21 lumbar xrays lumbosacral fusion, no osseous or [...] negative Jarvis's test, tinel's and marti tests [facility] JTS:no Tend. JTS:R>L shoulders, L [...] flat ground knees give out. COVID vaccine [employer] 06/26/21. Feels safe at home. Has enough food, supplies and medications. Overall uncomfortable but happy with rheum care. = supportive care, start celebrex/notify office if not tolerated, OFF mobic/initially improved withmedication but now effect wore off, prn flexeril, see pain clinic for nursing home pain recommendations, see ortho/pain clinic for intermission coordinator pain recommendations/injections, prn acetaminophen, start prn heat/ice/otc [...] video & audio (virtual) or phone or [id number] patient care, completing clinical documentation, obtaining and/or [...] physician/Primary care physician : Dear Dr.Renee Leora Morgan, DO: I had the pleasure of seeing [...] letter/electronic shared medical records. cc Dr.Renee Leora Morgan, documented in this encounterOhiohealth Riverside [facility] Hospital06-10-2022 Instructions* Patient Instructions* Gayle Washington MD [...] to side effects OFF lyrica no response intermission coordinator pain recommendations per primary care provider/pain clinic nonfasting labs as scheduled Thank you. documented in this encounterOhiohealth Riverside [facility] Hospital06-07-2022 Miscellaneous Notes* Telephone Encounter - Nataliya Abdullahi Dykes - 12/09/2021 2:42 PM EDT Patient has been scheduled as requested for 12/12/21. Referral has been attached. I spoke with Ms. Garcia and she is aware of all of the appointment details. Nataliya Abdullahi DYKES December 09, 2021 2:43 PM * Telephone Encounter - Sanam Ortega - 12/08/2021 9:55 AM EDT Patient calling to schedule follow up appt with Dr Washington no schedule pulling for [place] only Hilda. Patient requesting call at [phone] Washington is still at [place]. Please advise. documented in this encounterOhiohealth Riverside [facility] Hospital05-17-2022 NotePAIN MANAGEMENT CONSULTATION CONSULTATION DATE: 11/18/2021 CHIEF COMPLAINT: Cervical pain. HISTORY OF PRESENT ILLNESS: This is a 51-year-old female who had, in the past, been seen by Dr. Brunner, Pain Management in [place], [place]. The patient had changed her insurances to [employer] and, as such, Dr. Brunner does not [...] like to proceed. CC: Kimberley Morgan D.O. [facility] Signed and Approved by: DR RACHEL STOCK . 11/25/2021 12:22:00[facility]04-12-2022 Evaluation note* Encounter Date Diagnosis Assessment [...] nerve block in the future if needed. [employer] Other 12-28-2021 Evaluation note* Encounter Date Diagnosis [...] right hip to further evaluate her pain. [employer] Other 12-15-2021 Evaluation note* Encounter Date Diagnosis [...] (ICD-10 - G89.29) Continue medications as prescribed [employer] Other 11-11-2021 Evaluation note* Encounter Date Diagnosis [...] (ICD-10 - G89.29) Continue medications as prescribed [facility] Other 09-29-2021 Evaluation note* Encounter Date Diagnosis [...] injection under ultrasound guidance in the future. [facility] Other Evaluation note* Diagnosis Secondary osteoarthritis of [...] Chronic pain syndrome documented in this encounter [facility] noteNo InformationNortSelect Specialty [facility] Other Evaluation note* Diagnosis Secondary osteoarthritis of multiple sites- Primary Osteoarthrosis involving, or with mention of more than one site, but not specified as generalized, multiple sites Vitamin D deficiency Unspecified vitamin D deficiency Fibromyalgia Mylagia and myositis, unspecified documented in this encounter [facility] note* Diagnosis Secondary osteoarthritis of multiple sites Osteoarthrosis involving, or with mention of more than one site, but not specified as generalized, multiple sites documented in this encounter [facility] note* Diagnosis Chronic hip pain, bilateral Chronic left shoulder pain Pain in joint, shoulder region Chronic pain of both knees Bilateral hand pain Pain in limb documented in this encounter [facility] note* Diagnosis Secondary osteoarthritis of multiple sites Osteoarthrosis involving, or with mention of more than one site, but not specified as generalized, multiple sites Cervicalgia Chronic bilateral low back pain with bilateral sciatica documented in this encounter [facility] note* Diagnosis Flatulence, eructation and gas pain Flatulence, eructation, and gas pain Chronic GERD documented in this encounter [facility] note* Diagnosis GERD (gastroesophageal reflux disease)- Primary Esophageal reflux History of gastric ulcer Personal history of other diseases of digestive system History of Sloan's esophagus documented in this encounter [facility]* Diagnosis Benign essential HTN (CMS/HCC)- Primary 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) Factor 5 Leiden mutation, heterozygous (CMS/HCC) Bipolar 1 disorder (CMS/HCC) Cigarette smoker Tobacco use disorder Mixed hyperlipidemia (CMS/HCC) Mixed hyperlipidemia Type 2 diabetes mellitus without complication, without long-term current use of insulin (CMS/[facility]) Encounter for screening mammogram for malignant neoplasm of breast documented in this encounter [facility]* Diagnosis Diabetic polyneuropathy associated with type 2 diabetes mellitus (CMS/HCC)- Primary Onychomycosis Dermatophytosis of nail Onychodystrophy Other specified disease of nail Pain in both feet documented in this encounter [facility]* Diagnosis Poorly controlled type 2 diabetes mellitus with neuropathy (CMS/HCC)- Primary Morbid (severe) obesity due to excess calories (CMS/HCC) Body mass index (BMI) 38.0-38.9, adult Acute non-recurrent frontal sinusitis Herpes infection Herpes simplex without mention of complication Benign essential HTN (CMS/HCC) 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) Gastroesophageal reflux disease without esophagitis Esophageal reflux Cigarette smoker Tobacco use disorder Mixed hyperlipidemia ([facility]/HCC) Mixed hyperlipidemia documented in this encounter [facility] Healthcare[facility]* Diagnosis Corns and callosities- Primary Diabetic polyneuropathy associated with type 2 diabetes mellitus (CMS/HCC) Left foot pain Pain in soft tissues of limb documented in this encounter [facility] Healthcare[facility] note* Diagnosis Onset Date Resolution Status Admit Date Dyspepsia acute September 04 1:55pm [facility] Work Phone: Evaluation note* Diagnosis Annual wellness visit- Primary Nicotine abuse Cyst, dermoid, arm, right Type 2 diabetes mellitus without complication, without long-term current use of insulin Nicotine dependence, cigarettes, in remission Seasonal allergic rhinitis due to pollen Benign essential HTN (CMS/HCC) Factor 5 Leiden mutation, heterozygous (CMS/HCC) Mixed hyperlipidemia (CMS/HCC) Mixed hyperlipidemia documented in this encounter [facility] note* Diagnosis Type 2 diabetes mellitus without complication, without long-term current use of insulin documented in this encounter [facility] note* Diagnosis Onychomycosis- Primary Dermatophytosis of nail Onychodystrophy Other specified disease of nail Corns and callosities Diabetic polyneuropathy associated with type 2 diabetes mellitus (HCC) Ingrown toenail Ingrowing nail Pain in both feet documented in this encounter [facility]* Diagnosis Nicotine abuse- Primary Type 2 diabetes mellitus without complication, without long-term current use of insulin (HCC) Nausea and vomiting, unspecified vomiting type Memory loss Marijuana smoker documented in this encounter [facility]* Diagnosis Nicotine abuse- Primary Type 2 diabetes mellitus without complication, without long-term current use of insulin (HCC) Nausea and vomiting, unspecified vomiting type Memory loss Marijuana smoker Type 2 diabetes mellitus with unspecified complications (HCC)- Primary documented in this encounter [facility] HealthcareHistory general Narrative - Reported* Type Description Date Medical History allergies Medical History factor 5 blood disorder Medical History anxiety Medical History depression Medical History bipolar Medical History lumbar DDD Surgical History back surgery 06/2021 Surgical History neck surgery 05/2021 Hospitalization History see above [facility] Other History general Narrative - Reported* Type Description Date Medical History allergies Medical History factor 5 blood disorder Medical History anxiety Medical History depression Medical History bipolar Medical History lumbar DDD Medical History osteoarthritis of multiple joint s Surgical History back surgery 06/2021 Surgical History neck surgery 05/2021 Hospitalization History see above [facility] Other History of Present illness NarrativePatient has continued intermittent pain symptoms in her right shoulder she is remotely status post rotator cuff repair she had a follow-up MRI scan recently she would like to review with me today. She had a subacromial injection but it did not resolve all of her symptoms.[id number] Work Phone: Reason for referral (narrative)* Diagnostic Procedure Only (Routine) - Closed Specialty Diagnoses / Procedures Referred By Margarita vanegas Referred To Contact XR IMAGING Diagnoses Bilateral hand pain Procedures XR HAND GENERAL 3V PA/LAT/OBL BILATERAL X-RAY HAND MINIMUM 3 VIEWS Gayle Washington MD [address] [place] [address] Xr Imaging Referral ID Status Reason Start Date Expiration Date V isits Requested Visits Authorized [id number] Closed Auto-Generate d Referral 06/04/2021 07/04/2022 1 1 * Diagnostic Procedure Only (Routine) - Closed Specialty Diagnoses / Procedures Referred By Contac t Referred To Contact XR IMAGING Diagnoses Chronic pain of both knees Procedures XR KNEE GENERAL 4V AP BOTH/PA BOTH/LAT/MERC BILATERAL KNEE AP-WGT/LAT/MERCHANT Gayle Washington MD [address] [address] Xr Imaging Referral ID Status Reason Start Date Expiration Date V isits Requested Visits Authorized [id number] Closed Auto-Generate d Referral 06/04/2021 07/04/2022 1 1 * Diagnostic Procedure Only (Routine) - Closed Specialty Diagnoses / Procedures Referred By Contac t Referred To Contact XR IMAGING Diagnoses Chronic left shoulder pain Procedures XR SHOULDER GENERAL 3V OR MORE AP/TRUE AP/OTHER LEFT X-RAY SHOULDER COMPLET MIN 2 VIEWS Gayle Washington MD [address] [address] Xr Imaging Referral ID Status Reason Start Date Expiration Date V isits Requested Visits Authorized [id number] Closed Auto-Generate d Referral 06/04/2021 07/04/2022 1 1 * Diagnostic Procedure Only (Routine) - Closed Specialty Diagnoses / Procedures Referred By Contac t Referred To Contact XR IMAGING Diagnoses Chronic hip pain, bilateral Procedures XR HIP BILATERAL 5V PEL/AP/LAT EACH HIP RADEX HIPS BILATERAL WITH PELVIS MINIMUM 5 VIEWS Gayle Washington MD [address] [place] [address] Xr Imaging Referral ID Status Reason Start Date Expiration Date V isits Requested Visits Authorized [id number] Closed Auto-Generate d Referral 06/04/2021 07/04/2022 1 1 [facility] Diagnostic Procedure Only (Routine) - Closed Specialty Diagnoses / Procedures Referred By Margarita vanegas Referred To Contact XR IMAGING Diagnoses Bilateral hand pain Procedures XR HAND GENERAL 3V PA/LAT/OBL BILATERAL X-RAY HAND MINIMUM 3 VIEWS Gayle Washington MD [address] [address] Xr Imaging Referral ID Status Reason Start Date Expiration Date V isits Requested Visits Authorized [id number] Closed Auto-Generate d Referral 06/04/2021 07/04/2022 1 1 [facility] Summary Purpose Family History Relationship Condition [...] left Procedures CONSULT TO ORTHOPAEDICS OFFICE/OUTPATIENT [facility] 60-74 MINUTES Gayle Washington MD [address] [place] [address] Referral ID Status Reason Start Date Expiration Date Visits Requested Visits Authorized [id number] Pending Review PCP Requested Referral 12/12/2021 12/12/2022 [...] and content) DATE CREATED AUTHOR [facility]2020 [facility] [place] DATE CREATED AUTHOR AUTHOR'S ORGANIZ ATION 06/27/2020 [facility] DATE CREATED AUTHOR AUTHOR'S ORGANIZ ATION 12/01/2020 [employer] DATE CREATED AUTHOR AUTHOR'S ORGANIZ ATION 02/23/[address] [facility] DATE CREATED AUTHOR AUTHOR'S ORGANIZ ATION 02/23/2021 [employer] DATE CREATED AUTHOR AUTHOR'S ORGANIZ ATION 12/26/2021 [facility] DATE CREATED AUTHOR AUTHOR'S ORGANIZ ATION 07/02/2022 [facility] dical Specialist DATE CREATED AUTHOR AUTHOR'S ORGANIZ ATION 10/08/2022 [facility] DATE CREATED AUTHOR AUTHOR'S ORGANIZ ATION 10/20/2022 [facility] DATE CREATED AUTHOR AUTHOR'S ORGANIZ ATION 06/16/2024 [facility] DATE CREATED AUTHOR AUTHOR'S ORGANIZ ATION 02/15/2025 [facility] dical Specialists EPIC DATE CREATED AUTHOR AUTHOR'S ORGANIZ ATION 03/18/2025 [facility] DATE CREATED AUTHOR AUTHOR'S ORGANIZ ATION 03/21/2025 [facility] Comments (unrecognize d section and content) In the event this informatio n is protected by the Federal Confidentiality of Alcohol and Drug Abuse Patient Records regulations: The Federal rules restrict any use of the information to criminally investigate or prosecute any alcohol or drug abuse patient.[facility] HospitalIn the event this information is protected by the Federal Confidentiality of Alcohol and Drug Abuse Patient Records regulations: The Federal rules restrict any use of the information to criminally investigate or prosecute any alcohol or drug abuse patient.[facility] HospitalIn the event this information is protected by the Federal Confidentiality of Alcohol and Drug Abuse Patient Records regulations: The Federal rules restrict any use of the information to criminally investigate or prosecute any alcohol or drug abuse patient.[facility] HospitalIn the event this information is protected by the Federal Confidentiality of Alcohol and Drug Abuse Patient Records regulations: The Federal rules restrict any use of the information to criminally investigate or prosecute any alcohol or drug abuse patient.[facility] HospitalIn the event this information is protected by the Federal Confidentiality of Alcohol and Drug Abuse Patient Records regulations: The Federal rules restrict any use of the information to criminally investigate or prosecute any alcohol or drug abuse patient.[facility] HospitalIn the event this information is protected by the Federal Confidentiality of Alcohol and Drug Abuse Patient Records regulations: The Federal rules restrict any use of the information to criminally investigate or prosecute any alcohol or drug abuse patient.[facility] Reason for Visit (unrecogniz ed section and content) Reason Comments Follow Up Pain ongoing generalized pain. Specialty Diagnoses / Procedures Referred By Margarita vanegas Referred To Contact RHEUMATOLOGY Diagnoses Follow Up Procedures OFFICE/OUTPATIENT ESTABLISHED MOD MDM 30-39 MIN Follow Up Gayle Washington MD [address] [place] [address] [facility] [address] [place] [address] Referral ID Status Reason Start Date Expiration Date Visits Requested Visits Authorized [id number] Waiting for Response OON/Self Pay Override Patient cleared - OON Required Payment Collected 12/08/2021 03/08/2022 1 1 Reason Comments Appointment Reason Comments Results Specialty Diagnoses / Procedures Referred By Margarita vanegas Referred To Contact Diagnoses GERD (gastroesophageal reflux disease) GERD (gastroesophageal reflux disease) [K21.9] Procedures MA ESOPHAGOGASTRODUODENOSCOPY TRANSORAL DIAGNOSTIC MA EGD TRANSORAL BIOPSY SINGLE/MULTIPLE MA EGD BALLOON DILATION ESOPHAGUS <30 MM DIAM ESOPHAGOGASTRODUODENOSCOPY Maximiliano You MD [address] [place] [address] [facility] [address] [place] [address] Referral ID Status Reason Start Date Expiration Date Visits Re quested Visits Authorized [id number] 1 1 Reason Onset Date Comments dsme [...] Care Teams (unrecognized sec tion and content) Inbound Telemarketer Relationship Specialty Start Date End Date Kimberley Morgan, DO [address] [place] [address] PCP - General Family Practice 06/04/21 Inbound Telemarketer Relationship Specialty Start Date End Date Kimberley Morgan DO [address] [place] [address] PCP - General Family Practice 06/04/21 Inbound Telemarketer Relationship Specialty Start Date End Date Kimberley Morgan DO [address] [place] [address] PCP - General Family Medicine 06/04/21 Inbound Telemarketer Relationship Specialty Start Date End Date Kimberley Morgan, DO [address] [place] [address] PCP - General Family Medicine 06/04/21 Inbound Telemarketer Relationship Specialty Start Date End Date Kimberley Morgan DO [address] [place] [address] PCP - General Family Medicine 06/04/21 Inbound Telemarketer Relationship Specialty Start Date End Date Kimberley Morgan DO [address] [place] [address] PCP - General Family Medicine 06/04/21 Inbound Telemarketer Relationship Specialty Start Date End Date Hazel Velásquez MD [address] [place] [address] PCP - General Family Medicine 10/28/23 Inbound Telemarketer Relationship Specialty Start Date End Date Hazel Velásquez MD [address] [place] [address] PCP - General Family Medicine 10/28/23 Inbound Telemarketer Relationship Specialty Start Date End Date Hazel Velásquez MD [address] [place] [address] PCP - General Family Medicine 10/28/23 Inbound Telemarketer Relationship Specialty Start Date End Date Hazel Velásquez MD [address] [place] [address] PCP - General Family Medicine 10/28/23 Inbound Telemarketer Relationship Specialty Start Date End Date Hazel Velásquez MD [address] [place] [address] PCP - General Family Medicine 10/28/23 Inbound Telemarketer Relationship Specialty Start Date End Date Hazel Velásquez MD [address] [place] [address] PCP - General Family Medicine 10/28/23 Inbound Telemarketer Relationship Specialty Start Date End Date Hazel Velásquez MD [address] [place] [address] PCP - General Family Medicine 10/28/23 Inbound Telemarketer Relationship Specialty Start Date End Date Hazel Velásquez MD [address] [place] [address] PCP - General Family Medicine 10/28/23 Daphney Hubbard MD [address] [place] [address] PCP - Medical Grant MA 07/05/2407/04 Inbound Telemarketer Relationship Specialty Start Date End Date Hazel Velásquez MD [address] [place] [address] PCP - General Family Medicine 10/28/23 Daphney Hubbard MD [address] [place] [address] PCP - Medical Grant MA 07/05/2407/04 Team Status: Active Member Role Status Dates NON STAFF Primary Care Provider Active Team Status: Inactive Member Role Status Dates Marc Rhoades , MOLD DESIGN ENGINEER Attending Provider Active Start: September 04, 2024 End: September 04, 2024 Hazel Velásquez MD Referring Provider A ctive Start: September 04, 2024 End: September 04, 2024 NON STAFF Primary Care Provider Active Start: September 04, 2024 End: September 04, 2024 Inbound Telemarketer Relationship Specialty Start Date End Date Hazel Velásquez MD [address] [place] [address] PCP - General Family Medicine 10/28/23 Daphney Hubbard MD [address] [place] [address] PCP - Medical Grant MA 07/05/2407/04 Inbound Telemarketer Relationship Specialty Start Date End Date Hazel Velásquez MD [address] [place] [address] PCP - General Family Medicine 10/28/23 Daphney Hubbard MD [address] [place] [address] PCP - Medical Grant MA 07/05/2407/04 Inbound Telemarketer Relationship Specialty Start Date End Date Hazel Velásquez MD [address] [place] [address] PCP - General Family Medicine 10/28/23 Daphney Hubbard MD [address] [place] [address] PCP - Medical Grant MA 07/05/2407/04 Inbound Telemarketer Relationship Specialty Start Date End Date Hazel Velásquez MD [address] [place] [address] PCP - General Family Medicine 10/28/23 Daphney Hubbard MD [address] [place] [address] PCP - Medical Grant MA 07/05/2407/04 Inbound Telemarketer Relationship Specialty Start Date End Date Hazel Velásquez MD [address] [place] [address] PCP - General Family Medicine 10/28/23 Daphney Hubbard MD [address] [place] [address] PCP - Medical Grant MA 07/05/2407/04 Team Status: Inactive Member Role Status Dates NON STAFF Primary Care Provider Active Start: November 23, 2024 End: November 23, 2024 Marc Rhoades APRN Attending Provider Active Start: November 23, 2024 End: November 23, 2024 Inbound Telemarketer Relationship Specialty Start Date End Date Hazel Velásquez MD [address] [place] [address] PCP - General Family Medicine 10/28/23 Daphney Hubbard MD [address] [place] [address] PCP - Medical Grant MA 07/05/2407/04 Inbound Telemarketer Relationship Specialty Start Date End Date Hazel Velásquez MD [address] [place] [address] PCP - General Family Medicine 10/28/23 Daphney Hubbard MD [address] [place] [address] PCP - Medical Grant MA 07/05/2407/04 Inbound Telemarketer Relationship Specialty Start Date End Date Hazel Velásquez MD [address] [place] [address] PCP - General Family Medicine 10/28/23 Daphney Hubbard MD [address] [place] [address] PCP - Medical Grant MA 07/05/2407/04 Scheduled Active and Recently Administ [...] BE BASED ON THE PRIMARY CLINICAL RECORDS. [facility] [employer] [facility]. provides no warranty or guarantee of the accuracy or completeness of information in this document.
--- NOTE | 2025-03-22 10:52 | PM.CN ---
Consult Note: HPI Data of Consult Patient: known to practice within the last 3 years Requesting Physician: Stephanie Mike NP Primary Care Provider: Non-Staff Physician, MD Consult Narrative Reason for consult: low back pain Narrative: Lizbeth Garcia a pleasant 54 year old female presents for evaluation and management of chronic low back pain secondary to lumbar spondylosis, L5-S1 fusion, lumbar stenosis with NC. notes low back pain 4/10 increasing to 10/10 aching throbbing. pain increased with lifting, twisting, ADLs. mild improvement with ice. has failed to benefit from greater than 6 weeks of PT/HEP, heat, ice, tylenol, NSAIDs. currently utilizing flexeril 10mg Tid and gabapentin 300mg TID without side effects. on 02/19/25 underwent bilateral L3-4 L4-5 MBB #1 and #2 with >80% improvement in pain and functional ability for 2 hours, preop pain up to 10/10 post op pain 1-2/10 cc:: CC: Stephanie Mike NP Review of Systems ROS Musculoskeletal Reports: back pain; Denies: extremity pain PFSH PFSH Medical History Former cigarette smoker ?Z87.891 - Personal history of nicotine dependence (ICD-10) Heartburn ?R12 - Heartburn (ICD-10) Acid reflux ?K21.9 - Gastro-esophageal reflux disease without esophagitis (ICD-10) Osteoarthritis ?M19.90 - Unspecified osteoarthritis, unspecified site (ICD-10) Low back pain ?M54.50 - Low back pain, unspecified (ICD-10) Factor 5 Leiden mutation, heterozygous ?D68.51 - Activated protein C resistance (ICD-10) Anxiety ?F41.9 - Anxiety disorder, unspecified (ICD-10) Obesity ?E66.9 - Obesity, unspecified (ICD-10) Diabetes ?E11.9 - Type 2 diabetes mellitus without complications (ICD-10) SOB (shortness of breath) ?R06.02 - Shortness of breath (ICD-10) High cholesterol ?E78.00 - Pure hypercholesterolemia, unspecified (ICD-10) Hypertension ?I10 - Essential (primary) hypertension (ICD-10) Irregular heart beat ?I49.9 - Cardiac arrhythmia, unspecified (ICD-10) Angina at rest ?I20.89 - Other forms of angina pectoris (ICD-10) Surgical History H/O arthroscopic knee surgery ?Z98.890 - Other specified postprocedural states (ICD-10) H/O lumbosacral spine surgery ?Z98.890 - Other specified postprocedural states (ICD-10) H/O cervical spine surgery ?Z98.890 - Other specified postprocedural states (ICD-10) H/O arthroscopy of shoulder ?Z98.890 - Other specified postprocedural states (ICD-10) H/O carpal tunnel repair ?Z98.890 - Other specified postprocedural states (ICD-10) H/O: hysterectomy ?Z90.710 - Acquired absence of both cervix and uterus (ICD-10) Meds Home Medications and Allergies Home Medications ?Medication ?Instructions ?Recorded ?Confirmed ?Type B-complex with vitamin C 1 tab PO DAILY 08/26/23 02/19/25 History acetaminophen 500 mg tablet 1,500 mg PO DAILY PRN pain 08/26/23 02/19/25 History (Tylenol Extra Strength) amlodipine 5 mg tablet 5 mg PO DAILY 08/26/23 02/19/25 History aspirin 81 mg capsule 81 mg PO DAILY 08/26/23 02/19/25 History atorvastatin 80 mg tablet 80 mg PO DAILY 08/26/23 02/19/25 History cholecalciferol (vitamin D3) 50 50 mcg PO DAILY 08/26/23 02/19/25 History mcg (2,000 unit) capsule clonazepam 0.5 mg tablet 0.5 mg PO BID 08/26/23 02/19/25 History cyclobenzaprine 10 mg tablet 10 mg PO TID 08/26/23 03/01/25 History desvenlafaxine succinate 100 mg 100 mg PO DAILY 08/26/23 02/19/25 History tablet,extended release 24 hr (Pristiq) ezetimibe 10 mg tablet 10 mg PO DAILY 08/26/23 02/19/25 History lamotrigine 300 mg tablet,extended 300 mg PO DAILY 08/26/23 02/19/25 History release 24 hr metoprolol succinate 25 mg 25 mg PO DAILY 08/26/23 02/19/25 History tablet,extended release 24 hr quetiapine 200 mg tablet 200 mg PO DAILY 08/26/23 02/19/25 History apixaban 2.5 mg tablet (Eliquis) 2.5 mg PO BID 11/06/24 02/19/25 History metformin 500 mg tablet 500 mg PO BID 11/06/24 02/19/25 History semaglutide 0.25 mg or 0.5 mg (2 0.5 mg subcut QWEEK 11/06/24 02/19/25 History mg/3 mL) subcutaneous pen injector (Ozempic) gabapentin 300 mg capsule 300 mg PO TID #90 caps 01/02/25 02/19/25 Rx Allergies Allergy/AdvReac Type Severity Reaction Status Date / Time ibuprofen AdvReac Mild Gastrointestinal Verified 02/19/25 10:24 Upset tramadol AdvReac Mild Gastrointestinal Verified 02/19/25 10:24 Upset Exam Constitutional Documenting provider has reviewed patient's vital signs: yes Common normals: no apparent distress, oriented x3, healthy appearing, alert and well nourished General appearance: cooperative HENMT Common normals: normocephalic, hearing grossly normal bilaterally and moist oral mucous membranes Head and scalp: normocephalic Eye Common normals: PERRL Pupil: PERRL Neck & C-Spine Common normals: full ROM General: normal visual inspection Chest Common normals: inspection of chest normal Respiratory Common normals: normal respiratory effort, no retractions and no use of accessory muscles Back & Pelvis Lumbar spine/lower back: pain with ROM, lumbar spinal tenderness and paraspinal muscle tenderness; straight leg raise positive Other: strength 5/5 in BLE sensation intact BLE Extremity Common normals: normal to inspection and full ROM Neuro Common normals: oriented x3 Sensorium/orientation: alert Motor exam: no movement abnormalities noted Psych Common normals: mental status grossly normal, thought process normal, cooperative, affect normal, speech normal and activity/motor behavior normal Speech: normal speech Thought process: normal thought process Results Additional Findings Additional findings: If on a controlled substance or opioids, I have checked an [place] report on this patient and there are no aberrancies noted in the prescribing history.??If on a controlled substance or opioid a drug screen was completed and reviewed within the last year, and if there has not been a drug screen completed we ordered one today to monitor higher risk, state monitored pain medication use. As part of providing excellent, safe, comprehensive care, the following was completed at our patient's visit: 1. A medication reconciliation and review to ensure accurate knowledge of current/active medications, including asking our patients to inform us about any [id number] medications or herbal remedies/nutritional supplements/alternative remedies. 2. A review to specifically ensure our patients have had annual screening for screening for depression, screening for tobacco use, and screening for unhealthy alcohol use. For concerning screenings had a discussion with the patient, provided patient education, and recommended follow-up with primary care provider when appropriate. If patient noted with a risk of falling, they received education on strength, gait, and balance training to prevent future risk of falling. Portions of this note may have been carried over from the previous visit and updated as appropriate. Please note this office utilizes paper charting in addition to the electronic medical record. A list of current medications, vitals, and PMH is available there as the clinical staff outside of myself do not have access to unrival charting during the clinic day operations. As part of providing quality comprehensive care the current medications, vitals, and PMH were reviewed in the paper chart. Assessment and Plan Assessment and Plan (1) Lumbar spondylosis: Assessment and Plan: The patient has had over 3 months of moderate to severe low back pain with functional impairment and inadequate response to conservative care including NSAIDS (unless there are contraindication such as concurrent blood thinners), multiple oral or topical pain medications, and home exercise program/physical therapy.? Patient has completed >6 weeks of guided home exercise program and/or formal physical therapy program without relief of their symptoms.? I have reviewed the imaging of the lumbar spine and no red flags were identified.? The Oswestry Disability Index was completed, and the patient scored a 58%.? The patient noted the following:?? moderate to severe pain with ADLs, sitting, standing, walking, social life, travel, sleep (2) Myalgia, other site: (3) Failed back syndrome: (4) Sacroiliitis: Plan bilateral L3-4 L4-5 facet RFA for facet mediated low back pain under fluoroscopy continue gabapentin 300mg TID continue flexeril 10mg tid prn pain/spasms encouraged TENS unit continue NNCP, marijuana and benzo use f/u 1 month after RFA complete
== END 2025-03-22 10:43 | disposition home or self-care (01) ==
LOC: PM 10:42
PROVIDERS: Visit Provider Nurse Practitioner
DX: M47.816 Spondylosis without myelopathy or radiculopathy, lumbar region (principal); M79.18 Myalgia, other site; M46.1 Sacroiliitis, not elsewhere classified; M96.1 Postlaminectomy syndrome, not elsewhere classified
CPT/HCPCS: G0463